=== PATIENT | male | born 1955 | race Caucasian/White ===

== ENCOUNTER 2020-03-13 11:19 | Emergency (ER) | payer MEDICARE, MEDICAID, SELFPAY ==
--- NOTE | 2020-03-13 | CT_ITS ---
EXAMINATION: CT HEAD WITHOUT CONTRAST CLINICAL INFORMATION: Headache. History of occipital hemorrhage. COMPARISON: CT head from 03/06/2020. TECHNIQUE: Contiguous axial imaging was performed from the skull base to vertex without intravenous administration of contrast. This CT examination was performed using dose optimization techniques as appropriate, variously including the following: *Automated exposure control. *Adjustment of mA and/or kV according to patient size (this includes techniques or standardized protocols for targeted exams where dose is matched to indication/reason for exam; i.e. extremities or head). *Use of iterative reconstruction technique. DLP: 672 mGy-cm FINDINGS: Redemonstrated small region (0.7 cm) of hyperattenuation within the right occipital lobe suspicious for a trace amount of hemorrhagic products (image 39/95). These hemorrhagic products appear to have slightly faded compared to exam from 03/07/2020. Minimal surrounding white matter hypoattenuation. No evidence of additional acute intracranial hemorrhagic products. No evidence of edematous territorial infarction. A few foci of hypoattenuation in the periventricular and deep white matter are consistent with mild microangiopathy. Small lacunar infarct of the right caudate head. Otherwise the maciel-white matter matter differentiation is preserved. The ventricles are normal in size and configuration. No evidence for obstructive hydrocephalus. No abnormal mass effect or midline shift. No extra-axial fluid collections. No hyperdense vessel sign. No acute soft tissue or osseous abnormalities. Mild mucosal thickening of the visualized paranasal sinuses. Small right-sided mastoid effusion. The left-sided mastoid air cells are clear. IMPRESSION: 1. Redemonstrated small region of right occipital lobe parenchymal hemorrhage. 2. No evidence of new intraparenchymal hemorrhage. 3. No evidence of acute edematous territorial infarction. Mild underlying microangiopathy.
[2020-03-13 11:38] VITALS: BP 168/96; PULSE 73; RESP 18; TEMP 36.6; O2SAT 95; BMI 29.0
--- NOTE | 2020-03-13 12:01 | ED_ITS ---
HPI - Headache General Chief Complaint: Headache Stated Complaint: brain bleed Time Seen by Provider: 03/13/20 11:48 Source: patient Mode of arrival: ambulatory Limitations: no limitations History of Present Illness HPI Narrative: patient with history of essential tremors was seen here on 03/[address] scan which showed slight 4 mm hemorrhagic area in cerebellum. Patient denies any headache at that time for last 3 days patient noticed headache which is diffuse MD elicited complaint: headache Onset description: gradually Location: frontal Quality & Timing: dull Exacerbating factors: none Relieving factors: nothing Context: occurred at rest Associated symptoms: none Related Data Previous Rx's Medication Instructions Recorded gncawnkhtv-bxbdlrladymeq-ppkj 1 cap PO Q6H PRN #14 cap 03/13/20 [Fioricet] Allergies Allergy/AdvReac Type Severity Reaction Status Date / Time bee pollen [BEE STINGS] Allergy Severe ANAPHYLAXIS Verified 03/13/20 12:02 indomethacin [Indocin] Allergy Unknown anaphylaxis Verified 03/13/20 12:02 tramadol [Ultram] Allergy Unknown anaphylaxis Verified 03/13/20 12:02 From INDOCIN Allergy Severe ANAPHYLAXIS Uncoded 02/24/20 17:11 From ULTRAM Allergy Severe ANAPHYLAXIS Uncoded 02/24/20 17:11 bee stings Allergy Unknown Unknown Uncoded 03/13/20 12:02 Review of Systems Review of Systems: REVIEW OF SYSTEMS: Pertinent positives and negatives are stated above in the history. GEN: no fevers, chills, fatigue HEENT: no nasal congestion, sore throat, ear pain NEURO: no headache, dizziness, focal weakness PULM: no cough, shortness of breath CV: no chest pain, palpitations, LE edema ABD: no abdominal pain, nausea, vomiting, diarrhea : no dysuria, urgency, frequency SKIN: no rash ROS otherwise negative x 10 PMFSH Past Medical History Medical History Brain bleed CAD (coronary artery disease) Cholecystectomy planned Hip replacement planned HTN (hypertension) Myocardial infarction Pacemaker Tremor Surgical History History of appendectomy Knee joint replacement by other means Stented coronary artery Social History Social History Alcohol intake: former Smoking Status: Current every day smoker Use of substances other than those prescribed or required for medical reasons: No Advance Directives: No Advance Directives Information Provided: No Physical Exam Vital Signs and I&O and Narrative: Vital Signs and I&O: Vital Signs Temp 98 F 03/13/20 11:38 Pulse 63 03/13/20 14:24 Resp 16 03/13/20 14:24 BP 153/84 H 03/13/20 14:24 Pulse Ox 97 03/13/20 14:24 Intake & Output 03/12/20 03/13/20 03/13/20 18:59 06:59 18:59 Weight 94.347 kg Body Mass Index 29.0 VITAL SIGNS: Reviewed. GENERAL: Well developed, well nourished, in no acute distress. HEAD: Normocephalic/atraumatic, Posterior oropharynx was without edema, erythema or exudate. EYES: PERRLA, Pupils <>, EOMI intact without pain, no nystagmus/pallor/icterus noted EARS: Ext canals without abnormality, TMs non-bulging and non-erythematous NOSE: Nares patent bilateral OROPHARYNX: no oral lesions noted, posterior pharynx clear and non-erythematous without noted tonsillar enlargement/erythema/exudates NECK: Supple, no adenopathy LUNGS: Normal breath sounds. No adventitious sounds or accessory muscle use. SpO2<> CARDIOVASCULAR: Regular rate and rhythm without noted murmurs, no JVD or lower extremity edema. ABDOMEN: Soft, non-tender, non-distended with bowel sounds. No rigidity. No g uarding. No palpable masses or hernias noted MUSCULOSKELETAL: No tenderness, deformities, or effusions noted on gross inspection. EXTREMITIES: No cyanosis, clubbing or edema. SKIN: Inspection of the skin reveals no rashes, ulcerations, jaundice, pallor, or petechiae NEUROLOGIC: Alert and oriented x 3. Strength and sensation to light touch were grossly intact x 4.Essential tremors present no focal weakness Course Course Course Narrative: patient's CT scan without any significant changes feeling much better now no focal neural deficit will discharge patient home for nonspecific headache MDM - Headache Lab Data Result diagrams: 03/13/20 12:05 03/13/20 12:05 Labs: Lab Results 03/13/20 03/13/20 03/13/20 Range/Units 12:05 12:05 12:05 WBC 9.5 (4.8-10.8) X10*3/uL RBC 4.64 (4.60-5.80) X10*6/uL Hgb 14.5 (14.0-18.0) g/dl Hct 42.3 (42-52) % MCV 91.2 (80-98) fL MCH 31.3 (27.0-33.0) pg MCHC 34.3 (31.0-36.0) g/dl RDW 12.1 (11.0-16.0) % Plt Count 320 (160-400) X10*3/uL MPV 8.3 L (9.4-12.4) fL Immature Gran % (Auto) 0.4 (0.0-0.4) % Neut % (Auto) 68.5 (45-73) % Lymph % (Auto) 19.3 L (20-40) % [place] % (Auto) 7.8 (2-11) % Eos % (Auto) 3.2 (0-4) % Baso % (Auto) 0.8 (0-2) % Neut # (Auto) 6.5 (2.0-8.3) X10*3/uL Lymph # (Auto) 1.8 (1.2-4.9) X10*3/uL [place] # (Auto) 0.7 (0.1-1.2) X10*3/uL Eos # (Auto) 0.3 (0.0-0.4) X10*3/uL Baso # (Auto) 0.1 (0.0-0.2) X10*3/uL Abs Immat Gran (auto) 0.04 H (0.00-0.03) X10*3/uL Absolute Nucleated RBC 0.000 (0.0-0.012) X10*3/uL Nucleated RBC % (auto) 0.0 (0.0-0.2) /100WBC PT 10.6 L (10.8-13.0) SEC INR 0.9 (0.9-1.1) APTT 40.2 H (24.1-38.0) SEC Sodium 138 (135-145) mmol/L Potassium 4.1 (3.3-5.1) mmol/l Chloride 104 (96-108) mmol/L Carbon Dioxide 27 (22-29) mmol/L Anion Gap 11 L (12-20) BUN 16 (9-16) mg/dL Creatinine 0.76 (0.5-1.4) mg/dL Estim Creat Clear Calc 112.1 Estimated GFR > 60 Random Glucose 119 H (60-115) mg/dL Calcium 8.7 (8.4-10.2) mg/dL Total Bilirubin 0.3 (0.0-1.0) mg/dL AST 14 (5-37) U/L ALT 12 (0-40) U/L Alkaline Phosphatase 90 (39-117) U/L Total Protein 6.7 (6.5-8.0) g/dL Albumin 4.2 (3.5-5.0) g/dL Discharge Plan Discharge Clinical Impression: Headache Patient Disposition: Home, Self-Care Instructions: Acute Headache (ED) Additional Instructions: take medication as prescribed and follow-up with primary care doctor and neurologist Prescriptions: New djpyxlnrwx-bohwtsofbjfvo-uqej [Fioricet] 50-300-40 mg capsule 1 cap PO Q6H PRN (Reason: pain) Qty: 14 RF: 0 Referrals: Nichelle Song MD [Physician] - 2 days ( headache, )
[2020-03-13 12:10] LABS: MANUAL DIFF FLAG NO
[2020-03-13 12:13] LABS: Basophils Absolute Auto 0.1 X10*3/uL (0.0-0.2); Basophils Percent Auto 0.8 % (0-2); Eosinophils Absolute Auto 0.3 X10*3/uL (0.0-0.4); Eosinophils Percent Auto 3.2 % (0-4); Hematocrit 42.3 % (42-52); Hemoglobin 14.5 g/dl (14.0-18.0); Imm Gran Abs Auto 0.04 X10*3/uL (0.00-0.03); Imm Gran Pct Auto 0.4 % (0.0-0.4); Lymphocytes Absolute Auto 1.8 X10*3/uL (1.2-4.9); Lymphocytes Percent Auto 19.3 % (20-40); Mean Corpuscular HGB Conc 34.3 g/dl (31.0-36.0); Mean Corpuscular Hemoglobin 31.3 pg (27.0-33.0); Mean Corpuscular Volume 91.2 fL (80-98); Mean Platelet Volume 8.3 fL (9.4-12.4); Monocytes Absolute Auto 0.7 X10*3/uL (0.1-1.2); Monocytes Percent Auto 7.8 % (2-11); Neutrophils Absolute Auto 6.5 X10*3/uL (2.0-8.3); Neutrophils Percent Auto 68.5 % (45-73); Platelet Count 320 X10*3/uL (160-400); Red Blood Count 4.64 X10*6/uL (4.60-5.80); Red Cell Distribution Width 12.1 % (11.0-16.0); White Blood Count 9.5 X10*3/uL (4.8-10.8)
[2020-03-13 12:20] LABS: INTERNATIONAL NORM RATIO 0.9 (0.9-1.1); Prothrombin Time 10.6 SEC (10.8-13.0)
[2020-03-13 12:23] LABS: Partial Thromboplastin Time 40.2 SEC (24.1-38.0)
[2020-03-13 12:40] LABS: Alanine Aminotransferase 12 U/L (0-40); Albumin Level 4.2 g/dL (3.5-5.0); Alkaline Phosphatase 90 U/L (39-117); Anion Gap 11 (12-20); Aspartate Amino Transferase 14 U/L (5-37); Bilirubin Total 0.3 mg/dL (0.0-1.0); Blood Urea Nitrogen 16 mg/dL (9-16); Calcium 8.7 mg/dL (8.4-10.2); Carbon Dioxide 27 mmol/L (22-29); Chloride 104 mmol/L (96-108); Creatinine Clr Calc Pharmacy 112.1; Estimated Glomerular Filt Rate > 60; Glucose Random 119 mg/dL (60-115); Potassium 4.1 mmol/l (3.3-5.1); Sodium 138 mmol/L (135-145); Total Protein 6.7 g/dL (6.5-8.0)
[2020-03-13 12:44] VITALS: BP 185/101; PULSE 68; RESP 18; O2SAT 97
[2020-03-13] MEDS: oxyCODONE HCl Immed Release 5 MG TABLET PO (13:27)
[2020-03-13] MEDS: ondansetron HCL 4 MG/2 ML VIAL IVPUSH (14:22)
[2020-03-13] MEDS: Morphine Sulfate 4 MG/ML CARTRIDGE 2 MG IVPUSH (14:23)
[2020-03-13 14:24] VITALS: BP 153/84; PULSE 63; RESP 16; O2SAT 97
== END 2020-03-13 16:08 | disposition home or self-care (01) ==
PROVIDERS: Emergency Provider Internal Medicine; PCP Internal Medicine Geriatric Medicine
DX: R51.9 Headache, unspecified (principal); I25.10 Atherosclerotic heart disease of native coronary artery without angina pectoris; I10 Essential (primary) hypertension; Z79.899 Other long term (current) drug therapy; F17.200 Nicotine dependence, unspecified, uncomplicated; Z71.6 Tobacco abuse counseling
CPT/HCPCS: 36415; 70450; 80053; 85025; 85610; 85730; 96374; 96375; 99284; J2270; J2405

== ENCOUNTER 2020-03-29 07:54 | Outpatient (REF) | payer MEDICARE, MEDICAID, SELFPAY ==
--- NOTE | 2020-03-29 08:00 | CT_ITS ---
EXAMINATION: CT HEAD WITHOUT CONTRAST CLINICAL INFORMATION: Essential trauma. COMPARISON: CT brain 03/06/2020. TECHNIQUE: Contiguous axial imaging was performed from the skull base to vertex without intravenous administration of contrast. This CT examination was performed using dose optimization techniques as appropriate, variously including the following: *Automated exposure control *Adjustment of mA and/or kV according to patient size (this includes techniques or standardized protocols for targeted exams where dose is matched to indication/reason for exam; i.e. extremities or head) *Use of iterative reconstruction technique DLP: 806 mGy-cm. FINDINGS: There is no evidence of acute intracranial hemorrhage or territorial infarction. Focus of increased attenuation right occipital lobe at the alfonso-white matter junction, axial image 19/2 is stable, question old hemorrhage versus calcification. No additional areas of hyperdensity seen. No abnormal mass effect or midline shift is seen. Alfonso to white matter differentiation is well preserved. No extra-axial fluid collections are identified. The ventricles are normal in size. There is no abnormal attenuation within the brain parenchyma. The osseous structures and soft tissues are normal. The mastoid air cells and visualized portions of the paranasal sinuses are well aerated. IMPRESSION: Stable focal hypodensity right occipital lobe compared to 03/13/2020. This is most likely calcification as it was present on 03/06/2020. Hemorrhage should have resolved by now. Recommend MRI correlation to rule out underlying lesion. No new acute intracranial process.
== END 2020-03-29 07:55 | disposition home or self-care (01) ==
LOC: HO.CT 07:54
PROVIDERS: PCP Internal Medicine Geriatric Medicine; Visit Provider Internal Medicine Geriatric Medicine
DX: G25.0 Essential tremor (principal); R93.0 Abnormal findings on diagnostic imaging of skull and head, not elsewhere classified
CPT/HCPCS: 70450

== ENCOUNTER 2020-04-25 08:46 | Emergency (ER) | payer MEDICARE, MEDICAID, SELFPAY ==
[2020-04-25 08:56] VITALS: BP 135/90; PULSE 87; RESP 15; TEMP 36.9; O2SAT 94; BMI 28.7
[2020-04-25 09:01] VITALS: RESP 18
--- NOTE | 2020-04-25 09:08 | ED_ITS ---
HPI - Chest Pain General Chief Complaint: Chest Pain Stated Complaint: DIZZINESS, HEADACHE Time Seen by Provider: 04/25/20 09:08 Source: patient Mode of arrival: ambulatory Limitations: no limitations History of Present Illness HPI narrative: Patient with a recent brain bleed in February, patient with continual headaches and was rescanned in the ED. Patient with increased headache with nausea and vomiting. Patient developed chest pain after vomiting. Last CT on 03/29 showed no hemorrhage MD complaint: chest pain Pertinent past history: coronary artery disease Onset: other (during vomiting) Pain location: substernal Pain radiation: none Severity: mild Risk Factors Coronary artery disease risk factors: smoking history, hyperlipidemia and family history of CAD before age 50 Related Data Previous Rx's Medication Instructions Recorded dmiwqeyjmx-udahtmerzrtez-vfil 1 cap PO Q6H PRN #14 cap 03/13/20 [Fioricet] ondansetron HCl [Zofran] 4 mg PO Q8H PRN #10 tab 04/25/20 Allergies Allergy/AdvReac Type Severity Reaction Status Date / Time bee pollen [BEE STINGS] Allergy Severe ANAPHYLAXIS Verified 03/13/20 12:02 indomethacin [Indocin] Allergy Unknown anaphylaxis Verified 03/13/20 12:02 tramadol [Ultram] Allergy Unknown anaphylaxis Verified 03/13/20 12:02 From INDOCIN Allergy Severe ANAPHYLAXIS Uncoded 02/24/20 17:11 From ULTRAM Allergy Severe ANAPHYLAXIS Uncoded 02/24/20 17:11 bee stings Allergy Unknown Unknown Uncoded 03/13/20 12:02 Review of Systems Constitutional: Constitutional: Reports no additional constitutional complaints Eyes: Eyes: Reports no additional eye complaints ENT: Denies dizziness Cardiovascular: Cardiovascular: Reports no additional cardiovascular complaints Respiratory: Respiratory: Reports as per HPI Gastrointestinal: Gastrointestinal: Reports no additional gastrointestinal complaints Musculoskeletal: Musculoskeletal: Reports no additional musculoskeletal complaints Integumentary/Breasts: Skin/Breast: Denies rash Neurologic: Reports system reviewed and no additional complaints, except as documented, Denies dizziness and Denies Sensory deficit (Neuro) Psychiatric: Psychiatric: Denies anxiety PMFSH Past Medical History Medical History Brain bleed CAD (coronary artery disease) Cholecystectomy planned Hip replacement planned HTN (hypertension) Myocardial infarction Pacemaker Tremor Surgical History History of appendectomy Knee joint replacement by other means Stented coronary artery Social History Social History Alcohol intake: unknown Smoking Status: Current some day smoker Use of substances other than those prescribed or required for medical reasons: No Advance Directives: No Advance Directives Information Provided: Yes Physical Exam Vital Signs: Vital Signs: Last Vital Signs Temp 98.5 F 04/25/20 08:56 Pulse 87 04/25/20 08:56 Resp 18 04/25/20 09:01 BP 135/90 H 04/25/20 08:56 Pulse Ox 94 04/25/20 08:56 Body Mass Index 28.7 Const: Other: tremulous and anxious Nutritional Appearance: average body habitus Orientation/consciousness: oriented to person and patient oriented x3 Limitations: no limitations HENMT: Head: Yes normal to inspection Ears: external ears normal General nose exam: Normal external nose present Mouth: Normal oral and palatal mucosa present and oropharynx normal Throat: Yes posterior oropharynx normal Eyes: General: appearance normal, both eyes and all related structures Neck: Other: supple Neck: Yes normal visual inspection Chest: Chest palpation & inspection: normal inspection of the chest Resp: Auscultation: clear to auscultation bilaterally Cardio: Jugular venous distension: no JVD Rate: regular rate Rhythm: regular rhythm Heart sounds: S1 normal heart sound present and S2 normal heart sound present GI: Inspection: Yes normal to inspection Palpation (GI): Soft to palpation, nontender and No hepatosplenomegaly present Auscultation: normal bowel sounds : General: Yes no CVA tenderness Back/Spine/Pelvis: Back: no CVA tenderness Skin: General skin exam: no rashes or lesions noted Neuro: General: oriented to person and patient oriented x3 Cranial nerves: Yes CN's II-XII intact bilaterally Motor exam (neuro): 5/5 motor strength present throughout Sensory Exam: No Sensory deficit (Neuro) Extrem: General: Yes normal to inspection Psych: Appearance: grossly normal Course Course Course Narrative: patient resting more comfortably will have patient follow up with pmd MDM - Chest Pain MDM Narrative Medical decision making narrative: patient with chronic headache, chest pain secondary to vomiting will dc on zofran Differential Diagnosis Differential diagnosis: Likely atypical chest pain Differential diagnosis: chest pain likely secondary to vomiting Lab Data Result diagrams: 04/25/20 09:17 04/25/20 09:17 Labs: Lab Results 04/25/20 04/25/20 04/25/20 Range/Units 09:17 09:17 09:17 WBC 15.4 H (4.8-10.8) X10*3/uL RBC 5.19 (4.60-5.80) X10*6/uL Hgb 15.9 (14.0-18.0) g/dl Hct 46.7 (42-52) % MCV 90.0 (80-98) fL MCH 30.6 (27.0-33.0) pg MCHC 34.0 (31.0-36.0) g/dl RDW 12.3 (11.0-16.0) % Plt Count 356 (160-400) X10*3/uL MPV 8.4 L (9.4-12.4) fL Immature Gran % (Auto) 0.4 (0.0-0.4) % Neut % (Auto) 77.7 H (45-73) % Lymph % (Auto) 13.0 L (20-40) % [place] % (Auto) 7.9 (2-11) % Eos % (Auto) 0.7 (0-4) % Baso % (Auto) 0.3 (0-2) % Lymph # (Auto) 2.0 (1.2-4.9) X10*3/uL [place] # (Auto) 1.2 (0.1-1.2) X10*3/uL Eos # (Auto) 0.1 (0.0-0.4) X10*3/uL Baso # (Auto) 0.1 (0.0-0.2) X10*3/uL Abs Immat Gran (auto) 0.06 H (0.00-0.03) X10*3/uL Absolute Neuts (auto) 12.0 H (2.0-8.3) X10*3/uL Absolute Nucleated RBC 0.000 (0.0-0.012) X10*3/uL Nucleated RBC % (auto) 0.0 (0.0-0.2) /100WBC Sodium 137 (135-145) mmol/L Potassium 4.0 (3.3-5.1) mmol/l Chloride 101 (96-108) mmol/L Carbon Dioxide 23 (22-29) mmol/L Anion Gap 17 (12-20) BUN 20 H (9-16) mg/dL Creatinine 0.81 (0.5-1.4) mg/dL Estim Creat Clear Calc 103.3 Estimated GFR > 60 Random Glucose 128 H (60-115) mg/dL Calcium 8.7 (8.4-10.2) mg/dL Troponin I High Sens 13.6 (<3.5-35.0) ng/L ECG Data ECG #1: Attestation: I personally reviewed and interpreted this ECG as follows: Interpretation: sinus with old inferior wall VA, no acute st or twave changes Discharge Plan Discharge Clinical Impression: Atypical chest pain Headache Qualifiers: Headache type: other headache syndrome Qualified Code(s): G44.89 - Other h eadache syndrome Patient Disposition: Home, Self-Care Instructions: Chest Pain (ED), Acute Headache (ED) Prescriptions: New ondansetron HCl [Zofran] 4 mg tablet 4 mg PO Q8H PRN (Reason: nausea and vomiting) Qty: 10 RF: 0 No Action yjnohkzqeu-ehugmdxhbbazr-dvfu [Fioricet] 50-300-40 mg capsule 1 cap PO Q6H PRN (Reason: pain) Qty: 14 RF: 0 Referrals: Name,MD Memo [Primary Care Provider] - 2 days
--- NOTE | 2020-04-25 09:14 | ECG_ITS ---
Test Reason : CHEST PAIN Blood Pressure : / mmHG Vent. Rate : 077 BPM Atrial Rate : 077 BPM P-R Int : 152 ms QRS Dur : 108 ms QT Int : 404 ms P-R-T Axes : 010 -27 -06 degrees QTc Int : 457 ms Normal sinus rhythm Inferior infarct (cited on or before 29-NOV-2017) Abnormal ECG When compared with ECG of 06-MAR-2020 14:31, No significant change was found Heart rate has decreased Referred By: Eleazar Goodman Electronically Signed By:LANCE ROSS MD
--- NOTE | 2020-04-25 09:14 | PC.NURSE ---
Pt states he had a brain bleed back in february this year, was admitted to hospital but left ama.
[2020-04-25] MEDS: 0.9 % Sodium Chloride 500 ML 999 ML IVCONT (09:23)
[2020-04-25 09:24] LABS: MANUAL DIFF FLAG NO
[2020-04-25] MEDS: Morphine Sulfate 4 MG/ML CARTRIDGE IVPUSH (09:24)
[2020-04-25 09:25] LABS: Basophils Absolute Auto 0.1 X10*3/uL (0.0-0.2); Basophils Percent Auto 0.3 % (0-2); Eosinophils Absolute Auto 0.1 X10*3/uL (0.0-0.4); Eosinophils Percent Auto 0.7 % (0-4); Hematocrit 46.7 % (42-52); Hemoglobin 15.9 g/dl (14.0-18.0); Imm Gran Abs Auto 0.06 X10*3/uL (0.00-0.03); Imm Gran Pct Auto 0.4 % (0.0-0.4); Mean Corpuscular Hemoglobin 30.6 pg (27.0-33.0); Mean Platelet Volume 8.4 fL (9.4-12.4); Monocytes Absolute Auto 1.2 X10*3/uL (0.1-1.2); Monocytes Percent Auto 7.9 % (2-11); Neutrophils Percent Auto 77.7 % (45-73); Platelet Count 356 X10*3/uL (160-400); Red Blood Count 5.19 X10*6/uL (4.60-5.80); Red Cell Distribution Width 12.3 % (11.0-16.0); White Blood Count 15.4 X10*3/uL (4.8-10.8)
[2020-04-25 09:50] LABS: Anion Gap 17 (12-20); Blood Urea Nitrogen 20 mg/dL (9-16); Calcium 8.7 mg/dL (8.4-10.2); Carbon Dioxide 23 mmol/L (22-29); Chloride 101 mmol/L (96-108); Creatinine Clr Calc Pharmacy 103.3; Estimated Glomerular Filt Rate > 60; Glucose Random 128 mg/dL (60-115); Sodium 137 mmol/L (135-145)
[2020-04-25 09:58] LABS: Troponin-I High Sensitivity 13.6 ng/L (<3.5-35.0)
[2020-04-25] MEDS: oxyCODONE HCl Immed Release 5 MG TABLET PO (10:37)
[2020-04-25 11:27] VITALS: BP 95/61; PULSE 60; RESP 15; TEMP 36.4; O2SAT 95
== END 2020-04-25 12:03 | disposition home or self-care (01) ==
PROVIDERS: Emergency Provider Emergency Medicine; PCP Internal Medicine Geriatric Medicine
DX: R07.9 Chest pain, unspecified (principal); G44.89 Other headache syndrome; R42 Dizziness and giddiness; I25.10 Atherosclerotic heart disease of native coronary artery without angina pectoris; I10 Essential (primary) hypertension; Z79.899 Other long term (current) drug therapy; F17.200 Nicotine dependence, unspecified, uncomplicated; Z71.6 Tobacco abuse counseling
CPT/HCPCS: 36415; 80048; 84484; 85025; 93005; 96374; 96375; 99284; J2270

== ENCOUNTER 2020-04-25 17:27 | Inpatient (IN) | payer MEDICARE, MEDICAID, SELFPAY ==
[2020-04-25] VITALS (12 sets, daily range): BP systolic 88–130; BP diastolic 61–77; PULSE 60–76; RESP 16–20; TEMP 36.6–36.7; O2SAT 95–99; BMI 28.5
[2020-04-25] MEDS: 0.9 % Sodium Chloride 1,000 ML 999 ML IVCONT ×2 (19:31→22:00)
[2020-04-25 19:56] LABS: Basophils Absolute Auto 0.1 X10*3/uL (0.0-0.2); Basophils Percent Auto 0.6 % (0-2); Eosinophils Absolute Auto 0.3 X10*3/uL (0.0-0.4); Eosinophils Percent Auto 2.3 % (0-4); Imm Gran Abs Auto 0.13 X10*3/uL (0.00-0.03); Imm Gran Pct Auto 0.9 % (0.0-0.4); Lymphocytes Absolute Auto 3.4 X10*3/uL (1.2-4.9); MANUAL DIFF FLAG NO; Mean Corpuscular HGB Conc 34.1 g/dl (31.0-36.0); Mean Corpuscular Hemoglobin 31.3 pg (27.0-33.0); Mean Corpuscular Volume 91.7 fL (80-98); Mean Platelet Volume 8.4 fL (9.4-12.4); Monocytes Absolute Auto 1.2 X10*3/uL (0.1-1.2); Monocytes Percent Auto 8.5 % (2-11); Neutrophils Percent Auto 63.7 % (45-73); Platelet Count 305 X10*3/uL (160-400); Red Blood Count 4.47 X10*6/uL (4.60-5.80); Red Cell Distribution Width 12.7 % (11.0-16.0); White Blood Count 14.1 X10*3/uL (4.8-10.8)
--- NOTE | 2020-04-25 20:22 | CT_ITS ---
EXAMINATION: CT HEAD WITHOUT CONTRAST CLINICAL INFORMATION: Ongoing headache COMPARISON: Head CT 03/29/2020 TECHNIQUE: Contiguous axial imaging was performed from the skull base to vertex without intravenous administration of contrast. This CT examination was performed using dose optimization techniques as appropriate, variously including the following: *Automated exposure control *Adjustment of mA and/or kV according to patient size (this includes techniques or standardized protocols for targeted exams where dose is matched to indication/reason for exam; i.e. extremities or head) *Use of iterative reconstruction technique DLP: 712 mGy-cm FINDINGS: There is no evidence of acute intracranial hemorrhage or territorial infarction. No abnormal mass effect or midline shift is seen. Alfonso to white matter differentiation is well preserved. No extra-axial fluid collections are identified. The ventricles are normal in size. Again identified is a focus of increased attenuation within the right occipital lobe which is similar in appearance (image 14/32, series 3). The osseous structures and soft tissues are normal. The mastoid air cells and visualized portions of the paranasal sinuses are well aerated. CT/CT head/brain wo con IMPRESSION: 1. No acute intracranial pathology. 2. Stable nonspecific hyperdense focus within the right occipital lobe. MRI imaging would be required for further characterization.
[2020-04-25 20:32] LABS: Anion Gap 13 (12-20); Blood Urea Nitrogen 26 mg/dL (9-16); Calcium 7.9 mg/dL (8.4-10.2); Carbon Dioxide 24 mmol/L (22-29); Chloride 104 mmol/L (96-108); Creatinine Clr Calc Pharmacy 90.7; Estimated Glomerular Filt Rate > 60; Glucose Random 91 mg/dL (60-115); Potassium 3.6 mmol/l (3.3-5.1); Sodium 137 mmol/L (135-145)
--- NOTE | 2020-04-25 20:39 | XR_ITS ---
EXAMINATION: XR CHEST CLINICAL INFORMATION: Syncope COMPARISON: Chest x-ray 12/13/2019. CTA chest 12/13/2019 TECHNIQUE: 2 views of the chest were obtained. FINDINGS: No change position of pacemaker leads in right atrium and right ventricle. The heart size is normal. The cardiac and mediastinal contours are normal. No pulmonary vascular congestion. Linear atelectasis at left lung base. No focal consolidation. No pleural effusion or pneumothorax. XR/XR chest 2V IMPRESSION: No acute change of chest.
[2020-04-25] MEDS: Metoclopramide HCl 10 MG/2 ML VIAL IVPUSH (20:44)
[2020-04-25] MEDS: Acetaminophen 325 MG TABLET 650 MG PO (20:45)
--- NOTE | 2020-04-25 22:02 | CT_ITS ---
EXAMINATION: CTA CHEST, ABDOMEN AND PELVIS WITH CONTRAST CLINICAL INFORMATION: Reason for Exam LANDEROS, CP COMPARISON: CT chest 03/06/2020, CTA chest 12/13/2019, CT abdomen pelvis 03/14/2019 and 03/16/2019 TECHNIQUE: Multidetector volumetric imaging was performed from the thoracic inlet through the pubic symphysis following administration of 70 mL of Omnipaque 350. Sagittal and coronal reformatted images were obtained on the technologist's workstation. This CT examination was performed using dose optimization techniques as appropriate, variously including the following: *Automated exposure control *Adjustment of mA and/or kV according to patient size (this includes techniques or standardized protocols for targeted exams where dose is matched to indication/reason for exam; i.e. extremities or head) *Use of iterative reconstruction technique DLP: 772 mGy-cm VASCULAR FINDINGS: The thoracic aorta appears normal without aneurysm or dissection. Normal three-vessel branching pattern of the arch is present and the visualized great vessels are widely patent. Although not carried out for evaluation of the pulmonary arteries or pulmonary veins, no gross abnormality is seen. The abdominal aorta demonstrates mild atherosclerotic changes in its infrarenal portion. No aneurysm or dissection is seen. Aortic bifurcation is patent with normal-appearing common iliac arteries. Iliac bifurcations are patent and the external iliac arteries appear free of disease. Both internal iliac arteries are patent. 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 The SMA is widely patent. The BREN[place] is patent. There are single renal arteries present on both sides which are normal and patent NONVASCULAR FINDINGS: CHEST: Lung: Again seen are emphysematous changes and some small non worrisome lung nodules. Mediastinum: No mediastinal or hilar lymphadenopathy is seen. Pericardium/Pleura: No significant effusion. No pleural mass or thickening. Chest Wall/Axilla: A left chest wall dual-lead pacemaker is present with one lead in the right atria the other at the right ventricular apex. ABDOMEN/PELVIS: Peritoneal Space: No significant free air or free fluid identified. Liver, Gallbladder, Biliary Tree: The liver is normal in size, shape, and attenuation. At the tip of the right lobe of the liver there is a 1.4 cm calcified mass present. Another granuloma is noted in the right lobe of the liver as well (series 8 image 67) these have been seen previously. No worrisome focal hepatic lesion or biliary ductal dilatation is present. Status post cholecystectomy with clips in the gallbladder fossa. Pancreas: Unremarkable Spleen: Unremarkable Adrenal Glands: Unremarkable Kidneys and Ureters: The kidneys are normal in size, shape, and attenuation. No hydronephrosis, hydroureter, or calculi seen. No perinephric stranding. Bladder: Unremarkable Gastrointestinal Tract: Scattered colonic diverticular changes are present without diverticulitis. The small and large bowel are otherwise unremarkable. The appendix is none seen. Abdominal Wall: No significant hernia is appreciated. Tiny inguinal hernias are seen containing only fat. Lymph Nodes: No lymphadenopathy. PELVIC VISCERA: Prostate is mildly prominent in the seminal vesicles are generous in size. OSSEUS STRUCTURES: A right hip prosthesis is present. Mild degenerative changes present spine. CT/CT angio abdomen pelvis IMPRESSION: 1. No evidence of aortic dissection. No significant vascular disease seen mild celiac stenosis. 2. Incidental note made of hepatic granulomas, cholecystectomy and colonic diverticula without acute abdominal/pelvic disease
--- NOTE | 2020-04-25 22:22 | PC.NURSE ---
Pt reports improvement in nausea, continues to c/o 10/10 headache and mild chest discomfort. provider aware of pt status and vs. pt currently at ct.
[2020-04-25] MEDS: iohexoL 350 MG/ML 100 ML INFUS..BTL IV (22:35)
[2020-04-25 22:40] LABS: Glucose Urine UA NEG (NEG); Leukocyte Esterase Urine NEG (NEG); Nitrite Urine NEG (NEG); Specific Gravity - Urine 1.025 (1.005-1.025); Urine Blood NEG (NEG); Urine Ketones NEG (NEG); Urine Protein NEG (NEG-TRACE)
[2020-04-25 22:42] LABS: Appearance Urine CLEAR; Color Urine YELLOW
[2020-04-25 22:45] LABS: RBC Urine 0 /HPF (0); WBC Urine 0 /HPF (0-4)
[2020-04-25] MEDS: fentaNYL citrate/PF 100 MCG/2 ML VIAL 25 MCG IVPUSH (23:09)
--- NOTE | 2020-04-25 23:29 | ED.GENADULT ---
HPI - General Adult General Chief complaint: Syncope Stated complaint: SYNCOPAL EPISODE,CHEST TIGHTNESS Time Seen by Provider: 04/25/20 20:03 Source: patient and EMS History of Present Illness HPI narrative: 65 y.o. M with PMH of CAD, alcohol abuse presenting to the ED with c/o syncope and LANDEROS. Pt. states he was seen in the ED earlier this morning and states the provider focused on his CP and not his LANDEROS. he states he has a mild chest pain but does not feel like a heart attack. He is concerned about his headache which has been ongoing since the end of February. He notes it starts on the back of his scalp and radiates to his frontal scalp. He describes it as the worst headache of my life. He notes it has been ongoing since he had fallen. Today he was seen in the ED and sent home. He went home and was eating lunch, he then went to the fridge to get something and remembers being on the ground. He does not recall what happened. His neighbor helped him get up and he went to his doctors. He was noted to have a low blood pressure and was sent to the ED. He denies fevers, vision changes, speech changes, weakness, CP, SOB, vomiting, abd pain. Related Data Home Medications Medication Instructions Recorded Confirmed amlodipine 1 tab PO QAM 04/25/20 04/26/20 aspirin 1 tab PO QAM 04/25/20 04/26/20 bupropion HCl 1 tab PO BID 04/25/20 04/26/20 lisinopril 10 mg PO BID 04/25/20 04/26/20 metoprolol tartrate 1 tab PO BID 04/25/20 04/26/20 rosuvastatin 1 tab PO DAILY 04/25/20 04/26/20 oxycodone 10 mg PO Q6H PRN 04/26/20 04/26/20 Allergies Allergy/AdvReac Type Severity Reaction Status Date / Time bee pollen [BEE STINGS] Allergy Severe ANAPHYLAXIS Verified 03/13/20 12:02 indomethacin [Indocin] Allergy Unknown anaphylaxis Verified 03/13/20 12:02 tramadol [Ultram] Allergy Unknown anaphylaxis Verified 03/13/20 12:02 From INDOCIN Allergy Severe ANAPHYLAXIS Uncoded 02/24/20 17:11 From ULTRAM Allergy Severe ANAPHYLAXIS Uncoded 02/24/20 17:11 bee stings Allergy Unknown Unknown Uncoded 03/13/20 12:02 Review of Systems Constitutional: Constitutional: Denies fever(s), Reports headache(s) and Denies weakness Eyes: Eyes: Reports no additional eye complaints and Denies change in vision ENT: Denies dizziness and Reports headache(s) Cardiovascular: Cardiovascular: Reports chest pain and Denies dyspnea Respiratory: Respiratory: Denies dyspnea Gastrointestinal: Gastrointestinal: Denies abdominal pain, Reports nausea and Denies vomiting Musculoskeletal: Musculoskeletal: Reports no additional musculoskeletal complaints Neurologic: Denies dizziness, Reports headache(s), Denies Sensory deficit (Neuro) and Denies weakness Endocrine: Endocrine: Reports no additional endocrine complaints Hematologic/Lymphatic: Hematologic/Lymphatic: Reports easy bleeding PMFSH Past Medical History Medical History Brain bleed CAD (coronary artery disease) Cholecystectomy planned Hip replacement planned HTN (hypertension) Myocardial infarction Pacemaker Tremor Surgical History History of appendectomy Knee joint replacement by other means Stented coronary artery Social History Social History (Updated 04/26/20 @ 00:59 by TAL Solano) Household Members Other:: lives with roomate Alcohol intake: former Smoking Status: Current some day smoker Smoked in Last 30 Days: No Use of substances other than those prescribed or required for medical reasons: No Advance Directives: No Advance Directives Information Provided: Yes Physical Exam Vital Signs: Vital Signs: Last Vital Signs Temp 97.8 F 04/25/20 20:18 Pulse 76 04/25/20 23:57 Resp 16 04/25/20 23:57 BP 103/72 04/25/20 23:57 Pulse Ox 97 04/25/20 23:57 Body Mass Index 28.5 Const: General: alert Orientation/consciousness: patient oriented x3 HENMT: Head: Yes atraumatic Eyes: Pupils: Equal, round and reactive pupils present EOM: EOMs intact bilaterally Neck: Neck: Yes no meningeal signs, Yes trachea midline and Yes supple Resp: Auscultation: clear to auscultation bilaterally Cardio: Rhythm: regular rhythm GI: Inspection: No distended Palpation (GI): Soft to palpation and nontender Skin: Rashes: no rashes Neuro: General: patient oriented x3, no meningeal signs, no focal motor deficits and CN's II-XI intact bilaterally Cranial nerves: Yes Equal, round and reactive pupils present Motor exam (neuro): 5/5 motor strength present throughout and Tremors during motor activity present Sensory Exam: No Sensory deficit (Neuro) Extrem: General: Yes normal to inspection Medical Decision Making MDM Narrative Medical decision making narrative: 65 y.o. M presenting to the ED with concerns for syncope and hypotension. Pt. endorsing a LANDEROS. He was diagnosed with a parencyhmal hemorrhage at the end of February and has been having ongoing headaches. pt. states he was admitted and neurology evaluated him but he left AMA because of his anxiety. Basic labs were ordered. EKG and troponin to evaluate for signs of ischemia. Concern is for hypotension, he receieved 1L of fluids. Discrepancy between BP in upper extremities. Given his syncope and hypotension with fluctuating BP pt. will be sent for a CTA of his chest and abdomen to r/o a dissection. A Head CT will also be performed given his ongoing headache. No focal weakness to suggest a CVA. No menningeal signs. No signs of infection pt. is afebrile. Abdomen is soft, nontender, no peritoneal signs, no AAA on CT in 2019. GI bleed less likely given no report of hematemesis or black stool. Pt. requesting analgesia for his LANDEROS, will give IV fluids, reglan and re-eval. -Labs unrevealing. EKG is not ischemic. BP improved with IV fluids. Will give IV fentanyl for his pain. Imaging negative, head CT unchanged. Will plan to admit for syncope monitoring and further management of his LANDEROS. neurology not emergently consulted given nonfocal neurological exam however pt. would benefit from a neuro consult once admitted. Lab Data Result diagrams: 04/25/20 19:50 04/25/20 19:50 Labs: Lab Results 04/25/20 04/25/20 04/25/20 Range/Units 19:50 19:50 19:50 WBC 14.1 H (4.8-10.8) X10*3/uL RBC 4.47 L (4.60-5.80) X10*6/uL Hgb 14.0 (14.0-18.0) g/dl Hct 41.0 L (42-52) % MCV 91.7 (80-98) fL MCH 31.3 (27.0-33.0) pg MCHC 34.1 (31.0-36.0) g/dl RDW 12.7 (11.0-16.0) % Plt Count 305 (160-400) X10*3/uL MPV 8.4 L (9.4-12.4) fL Immature Gran % (Auto) 0.9 H (0.0-0.4) % Neut % (Auto) 63.7 (45-73) % Lymph % (Auto) 24.0 (20-40) % [place] % (Auto) 8.5 (2-11) % Eos % (Auto) 2.3 (0-4) % Baso % (Auto) 0.6 (0-2) % Lymph # (Auto) 3.4 (1.2-4.9) X10*3/uL [place] # (Auto) 1.2 (0.1-1.2) X10*3/uL Eos # (Auto) 0.3 (0.0-0.4) X10*3/uL Baso # (Auto) 0.1 (0.0-0.2) X10*3/uL Abs Immat Gran (auto) 0.13 H (0.00-0.03) X10*3/uL Absolute Neuts (auto) 9.0 H (2.0-8.3) X10*3/uL Absolute Nucleated RBC 0.000 (0.0-0.012) X10*3/uL Nucleated RBC % (auto) 0.0 (0.0-0.2) /100WBC Hold Blue Top SEE NOTE Sodium 137 (135-145) mmol/L Potassium 3.6 (3.3-5.1) mmol/l Chloride 104 (96-108) mmol/L Carbon Dioxide 24 (22-29) mmol/L Anion Gap 13 (12-20) BUN 26 H (9-16) mg/dL Creatinine 0.92 (0.5-1.4) mg/dL Estim Creat Clear Calc 90.7 Estimated GFR > 60 Random Glucose 91 (60-115) mg/dL Calcium 7.9 L D (8.4-10.2) mg/dL Troponin I High Sens (<3.5-35.0) ng/L Urine Color Urine Appearance Urine pH (5.0-8.0) Ur Specific [place] (1.005-1.025) Urine Protein (NEG-TRACE) MG/DL Urine Glucose (UA) (NEG) MG/DL Urine Ketones (NEG) MG/DL Urine Blood (NEG) Urine Nitrite (NEG) Ur Leukocyte Esterase (NEG) Urine RBC (0) /HPF Urine WBC (0-4) /HPF Ur Squamous Epith Cells /LPF Urine Bacteria /LPF COVID-19 (DOMENICO) (Negative) COVID-19 Clin Com 04/25/20 04/25/20 04/26/20 Range/Units 19:50 22:34 00:16 WBC (4.8-10.8) X10*3/uL RBC (4.60-5.80) X10*6/uL Hgb (14.0-18.0) g/dl Hct (42-52) % MCV (80-98) fL MCH (27.0-33.0) pg MCHC (31.0-36.0) g/dl RDW (11.0-16.0) % Plt Count (160-400) X10*3/uL MPV (9.4-12.4) fL Immature Gran % (Auto) (0.0-0.4) % Neut % (Auto) (45-73) % Lymph % (Auto) (20-40) % [place] % (Auto) (2-11) % Eos % (Auto) (0-4) % Baso % (Auto) (0-2) % Lymph # (Auto) (1.2-4.9) X10*3/uL [place] # (Auto) (0.1-1.2) X10*3/uL Eos # (Auto) (0.0-0.4) X10*3/uL Baso # (Auto) (0.0-0.2) X10*3/uL Abs Immat Gran (auto) (0.00-0.03) X10*3/uL Absolute Neuts (auto) (2.0-8.3) X10*3/uL Absolute Nucleated RBC (0.0-0.012) X10*3/uL Nucleated RBC % (auto) (0.0-0.2) /100WBC Hold Blue Top Sodium (135-145) mmol/L Potassium (3.3-5.1) mmol/l Chloride (96-108) mmol/L Carbon Dioxide (22-29) mmol/L Anion Gap (12-20) BUN (9-16) mg/dL Creatinine (0.5-1.4) mg/dL Estim Creat Clear Calc Estimated GFR Random Glucose (60-115) mg/dL Calcium (8.4-10.2) mg/dL Troponin I High Sens 11.0 (<3.5-35.0) ng/L Urine Color YELLOW Urine Appearance CLEAR Urine pH 6.0 (5.0-8.0) Ur Specific [place] 1.025 (1.005-1.025) Urine Protein NEG (NEG-TRACE) MG/DL Urine Glucose (UA) NEG (NEG) MG/DL Urine Ketones NEG (NEG) MG/DL Urine Blood NEG (NEG) Urine Nitrite NEG (NEG) Ur Leukocyte Esterase NEG (NEG) Urine RBC 0 (0) /HPF Urine WBC 0 (0-4) /HPF Ur Squamous Epith Cells NONE /LPF Urine Bacteria NONE /LPF COVID-19 (DOMENICO) Negative (Negative) COVID-19 Clin Com See Note ECG Data Attestation: I personally reviewed and interpreted this ECG as follows: Interpretation: rate 63 T wave inversion III no STEMI Discharge Plan Discharge Clinical Impression: Headache, Syncope, Hypotension Patient Disposition: Conversion Disposition
[2020-04-26] VITALS (12 sets, daily range): BP systolic 132–211; BP diastolic 69–127; PULSE 60–65; RESP 16–19; TEMP 36.1–36.8; O2SAT 96–98
--- NOTE | 2020-04-26 | EEG_ITS ---
This is a 16-channel EEG with an EKG lead. The patient is reported awake during the tracing. Background EEG rhythm is 8 to 10 hertz, 5 to 30 microvolt posteriorly, lower amplitude faster anteriorly. Intermittently, there were few brief episodes of left temporal sharp waves. Photic stimulation does not produce any significant abnormality. Hyperventilation was not performed. IMPRESSION: Abnormal EEG suggestive of left temporal irritability. MD KAE Meyer/RIVKA / [id number]
--- NOTE | 2020-04-26 | ECG_ITS ---
Test Reason : SYNCOPE Blood Pressure : / mmHG Vent. Rate : 063 BPM Atrial Rate : 063 BPM P-R Int : 168 ms QRS Dur : 110 ms QT Int : 478 ms P-R-T Axes : 033 -19 -10 degrees QTc Int : 489 ms Normal sinus rhythm Inferior infarct (cited on or before 29-NOV-2017) Abnormal ECG When compared with ECG of 25-APR-2020 09:02, No significant change was found Referred By: Olga Lim Electronically Signed By:LANCE ROSS MD
--- NOTE | 2020-04-26 00:06 | PC.NURSE ---
pt requested and used urinal. pt also able to tolerate a meal. hospitalist at [facility].
--- NOTE | 2020-04-26 00:23 | P.HPHOSP_ITS ---
History of Present Illness Date of Service: 04/26/20 Chief Complaint: syncope 65 y/o male with a PMHX of HTN, HLP, CAD s/p stenting and PPM who presented from home due to syncope. Per history provided by the patient, today in the afternoon while at home, felt a severe headache extending from the back of his head to the front, 10/10 in intensity, sharp, associated with dizziness causing him to loss consciousness. Patient reports that upon waking up went to his PCP and was found to have a systolic BP of 80-90 fo what was sent to the ED for further evaluation. On presentation patient was hypotensive BP of 88/60 mmHg which later improved to 103/72 mHg without intervention. WBC of 14 without any evidence of infection, troponin neg x 2, CT head negative for any acute intracranial pathology, hyperintense lesion in the right occipital lobe is noted which was present on prior imaging. CTA chest and abdom done per ED which showed incidental liver granuloma but otherwise unremarkable. EKG NSR. Decision for admission given per ED. Patient seen and examined at the bedside, laying down in bed in no acute dist ress. ROS as above otherwise negative. Physical exam positive for resting tremor, negative for neck stiffness, rest of the exam unremarkable. Patient was admitted recently due to worening tremor/weakness, seen by neuro adn was recommended CT with/without contrast for evaluation of lesion of the brain but patient signed AMA before work up was done back then. PMHX: HTN, CAD with most recent stent placed in October 2019 , pacemaker, HLD, gout, GERD Past surgical history: Knee replacement, shoulder surgery, appendectomy, cholecystectomy, hernia repair, back surgery Family history: Significant for brother and sister as well as father who had heavy chain disease, mother had CT Social history: Comes from home, lives alone, ambulates independently, currently smokes 4-5 cigarettes a day, denies alcohol or illicit drugs Review of Systems Constitutional: Constitutional: Reports headache(s) and Reports other (headache) ENT: Reports dizziness and Reports headache(s) Cardiovascular: Cardiovascular: Reports syncope Neurologic: Reports dizziness, Reports syncope, Reports headache(s) and Reports tremor(s) [facility] Medical History Brain bleed CAD (coronary artery disease) Cholecystectomy planned Hip replacement planned HTN (hypertension) Myocardial infarction Pacemaker Tremor Functional capacity: independent ambulation Family history: reviewed and not pertinent Surgical History History of appendectomy Knee joint replacement by other means Stented coronary artery Social History Alcohol intake: former Smoking Status: Current some day smoker Smoked in Last 30 Days: No Use of substances other than those prescribed or required for medical reasons: No Advance Directives: No Advance Directives Information Provided: Yes Meds Allergies Allergy/AdvReac Type Severity Reaction Status Date / Time bee pollen [BEE STINGS] Allergy Severe ANAPHYLAXIS Verified 03/13/20 12:02 indomethacin [Indocin] Allergy Unknown anaphylaxis Verified 03/13/20 12:02 tramadol [Ultram] Allergy Unknown anaphylaxis Verified 03/13/20 12:02 From INDOCIN Allergy Severe ANAPHYLAXIS Uncoded 02/24/20 17:11 From ULTRAM Allergy Severe ANAPHYLAXIS Uncoded 02/24/20 17:11 bee stings Allergy Unknown Unknown Uncoded 03/13/20 12:02 Home Medications Medication Instructions Recorded Confirmed Type amlodipine 1 tab PO QAM 04/25/20 04/26/20 History aspirin 1 tab PO QAM 04/25/20 04/26/20 History bupropion HCl 1 tab PO BID 04/25/20 04/26/20 History lisinopril 10 mg PO BID 04/25/20 04/26/20 History metoprolol tartrate 1 tab PO BID 04/25/20 04/26/20 History rosuvastatin 1 tab PO DAILY 04/25/20 04/26/20 History oxycodone 10 mg PO Q6H PRN 04/26/20 04/26/20 History Physical Exam Vital Signs and Narrative: Vital Signs: Last Vital Signs Temp 97.8 F 04/25/20 20:18 Pulse 76 04/25/20 23:57 Resp 16 04/25/20 23:57 BP 103/72 04/25/20 23:57 Pulse Ox 97 04/25/20 23:57 Body Mass Index 28.5 Const: General: cooperative, comfortable and no acute distress Orientation/consciousness: oriented to person, oriented to place and oriented to time HENMT: Head: Yes normal to inspection Eyes: General: appearance normal, both eyes and all related structures Neck: Yes normal visual inspection Chest: Chest palpation & inspection: normal inspection of the chest Resp: Effort & Inspection: normal respiratory effort Cardio: Jugular venous distension: no JVD Rate: regular rate Rhythm: regular rhythm Heart sounds: S1 normal heart sound present and S2 normal heart sound present GI: Inspection: Yes normal to inspection Skin: General skin exam: no rashes or lesions noted Neuro: General: oriented to person, oriented to place and oriented to time Cognition (Neuro): normal cognition Motor exam (neuro): 5/5 motor strength present throughout Sensory Exam: other (resting tremor) Results Labs CBC and Chem 7: 04/25/20 19:50 04/25/20 19:50 Labs: Laboratory Results - last 24 hr 04/25/20 04/25/20 04/25/20 19:50 19:50 19:50 MCV 91.7 MCH 31.3 MCHC 34.1 RDW 12.7 Plt Count 305 MPV 8.4 L Immature Gran % (Auto) 0.9 H Neut % (Auto) 63.7 Lymph % (Auto) 24.0 [place] % (Auto) 8.5 Eos % (Auto) 2.3 Baso % (Auto) 0.6 Lymph # (Auto) 3.4 [place] # (Auto) 1.2 Eos # (Auto) 0.3 Baso # (Auto) 0.1 Abs Immat Gran (auto) 0.13 H Absolute Neuts (auto) 9.0 H Absolute Nucleated RBC 0.000 Nucleated RBC % (auto) 0.0 Hold Blue Top SEE NOTE Anion Gap 13 Estim Creat Clear Calc 90.7 Estimated GFR > 60 Random Glucose 91 Calcium 7.9 L D Troponin I High Sens Urine Color Urine Appearance Urine pH Ur Specific [place] Urine Protein Urine Glucose (UA) Urine Ketones Urine Blood Urine Nitrite Ur Leukocyte Esterase Urine RBC Urine WBC Ur Squamous Epith Cells Urine Bacteria 04/25/20 04/25/20 19:50 22:34 MCV MCH MCHC RDW Plt Count MPV Immature Gran % (Auto) Neut % (Auto) Lymph % (Auto) [place] % (Auto) Eos % (Auto) Baso % (Auto) Lymph # (Auto) [place] # (Auto) Eos # (Auto) Baso # (Auto) Abs Immat Gran (auto) Absolute Neuts (auto) Absolute Nucleated RBC Nucleated RBC % (auto) Hold Blue Top Anion Gap Estim Creat Clear Calc Estimated GFR Random Glucose Calcium Troponin I High Sens 11.0 Urine Color YELLOW Urine Appearance CLEAR Urine pH 6.0 Ur Specific [place] 1.025 Urine Protein NEG Urine Glucose (UA) NEG Urine Ketones NEG Urine Blood NEG Urine Nitrite NEG Ur Leukocyte Esterase NEG Urine RBC 0 Urine WBC 0 Ur Squamous Epith Cells NONE Urine Bacteria NONE Imaging Radiologist's Impressions: Impressions Head CT 04/25/20 20:22 IMPRESSION: 1. No acute intracranial pathology. 2. Stable nonspecific hyperdense focus within the right occipital lobe. MRI imaging would be required for further characterization. Chest X-Ray 04/25/20 20:39 IMPRESSION: No acute change of chest. Abdomen/Pelvis CTA 04/25/20 22:02 IMPRESSION: 1. No evidence of aortic dissection. No significant vascular disease seen mild celiac stenosis. 2. Incidental note made of hepatic granulomas, cholecystectomy and colonic diverticula without acute abdominal/pelvic disease Chest CTA 04/25/20 22:02 IMPRESSION: 1. No evidence of aortic dissection. No significant vascular disease seen mild celiac stenosis. 2. Incidental note made of hepatic granulomas, cholecystectomy and colonic diverticula without acute abdominal/pelvic disease Assessment and Plan (1) Syncope: Status: Acute No evidence of underlying arrhythmia on EKG. CT head negative for any acute intracranial pathology. Hyperintense lesion on right occipital lobe which is chronic CTA head and neck to be done in the am after IV hydration, r/o underlying vascular malformation threat monitoring analyst Close monitoring / neurochecks Keep MAP >65 mmHg Neurology consult in the am (2) Headache: Status: Acute CTA head and neck in the am (3) Tremor: Status: Acute stable (4) CAD (coronary artery disease): Status: Acute Hold BP meds given initial presentation with hypotension Hold aspirin for now until CTA head and neck is done in the am (5) Psychotic disorder: Status: Acute continue with home BP meds
[2020-04-26 00:40] LABS: COVID-19 Test Negative (Negative); IDNOW Serial# 9DD0AD1C
[2020-04-26] MEDS: Acetaminophen 325 MG TABLET 650 MG PO (04:25)
[2020-04-26] MEDS: 0.9 % Sodium Chloride 500 ML 75 ML IV (04:25)
[2020-04-26] MEDS: diphenhydrAMINE HCL 50 MG/ML VIAL 25 MG IVPUSH (04:26)
--- NOTE | 2020-04-26 06:00 | CT_ITS ---
EXAMINATION: CT ANGIOGRAM NECK WITH CONTRAST CT ANGIOGRAM BRAIN WITH CONTRAST CLINICAL INFORMATION: Syncope. Rule out aneurysm. COMPARISON: Head CT 04/25/2020. Additional head CT's dating back to 03/06/2020. TECHNIQUE: Test bolus sequences followed by intravenous administration 100 mL of Omnipaque 350. Helical imaging was performed in the axial plane from the thoracic inlet to the skull vertex. Delayed postcontrast imaging of the head was also performed. The data was processed at the lead technologist in cytogenetics workstation for generation of MIP sequences. Angled MIPs and volume rendered reformatted images were also generated at an offline 3D workstation. Stenoses are assessed in accordance with NASCET criteria unless otherwise indicated. This CT examination was performed using dose optimization techniques as appropriate, variously including the following: *Automated exposure control *Adjustment of mA and/or kV according to patient size (this includes techniques or standardized protocols for targeted exams where dose is matched to indication/reason for exam; i.e. extremities or head) *Use of iterative reconstruction technique DLP: 1648 mGy-cm FINDINGS: Head CT: There is redemonstration of focal hyperdensity within the right occipital lobe seen on series 13 image which appears similar compared with multiple prior studies dating back to 03/07/2020. No new areas of hyperdensity/hemorrhage are seen. There is no enhancing lesion. The dural venous sinuses demonstrate normal opacification. The extracranial structures are within normal limits. Neck CTA: There are partially visualized pacemaker leads within the SVC. The aortic arch is patent with minimal atheromatous changes noted. The great vessel origins are patent. Atheromatous changes are seen involving the bilateral carotid bifurcations without flow-limiting stenosis. Mild atheromatous changes are present at the carotid siphons without stenosis. The bilateral vertebral arteries are widely patent with the right side being dominant. Head CTA: No proximal vessel occlusion is seen. The anterior and posterior circulations appear patent. No stenosis is seen. No definite aneurysm is seen. The dural venous sinuses demonstrate normal opacification. No abnormal vascularity is seen within the region of the right occipital hyperdensity. Non-vascular findings: No upper lung consolidation or mass is seen. Paraseptal emphysema is present. Degenerative changes are seen within the cervical spine. CT/CT angio head neck IMPRESSION: Redemonstration of right occipital lobe hyperdensity without significant change compared with 03/06/2020. Although this finding could represent a small area of parenchymal hemorrhage the lack of interval change/resolution compared with 03/06/2020 is atypical. An area of dystrophic calcification is in the differential. A cavernous malformation could also be considered. If the patient's pacemaker is MRI compatible, an MRI could be performed for further evaluation. No significant stenosis within the major head or neck arteries. No definite aneurysm identified.
[2020-04-26 06:26] LABS: MANUAL DIFF FLAG NO
[2020-04-26 06:49] LABS: Basophils Absolute Auto 0.1 X10*3/uL (0.0-0.2); Basophils Percent Auto 0.8 % (0-2); Eosinophils Absolute Auto 0.3 X10*3/uL (0.0-0.4); Eosinophils Percent Auto 2.6 % (0-4); Hematocrit 38.5 % (42-52); Lymphocytes Absolute Auto 2.2 X10*3/uL (1.2-4.9); Lymphocytes Percent Auto 21.5 % (20-40); Mean Corpuscular HGB Conc 33.8 g/dl (31.0-36.0); Mean Corpuscular Volume 91.7 fL (80-98); Mean Platelet Volume 8.9 fL (9.4-12.4); Monocytes Percent Auto 9.8 % (2-11); Neutrophils Absolute Auto 6.7 X10*3/uL (2.0-8.3); Neutrophils Percent Auto 64.3 % (45-73); Platelet Count 300 X10*3/uL (160-400); Red Cell Distribution Width 12.6 % (11.0-16.0); White Blood Count 10.4 X10*3/uL (4.8-10.8)
[2020-04-26 07:11] LABS: Anion Gap 14 (12-20); Blood Urea Nitrogen 21 mg/dL (9-16); Calcium 7.5 mg/dL (8.4-10.2); Carbon Dioxide 21 mmol/L (22-29); Chloride 106 mmol/L (96-108); Creatinine Clr Calc Pharmacy 105.7; Estimated Glomerular Filt Rate > 60; Glucose Random 122 mg/dL (60-115); Potassium 3.5 mmol/l (3.3-5.1); Sodium 137 mmol/L (135-145)
--- NOTE | 2020-04-26 10:27 | PM.NEUROCN ---
History of Present Illness Data of Consult Primary Care Provider: Memo Alex MD 65 years old man who had seen few weeks ago when he came to hospital with tremor and had a CT scan of brain done which revealed a a right occipital hyperdensity. My impression was that this was a chronic lesion. He was in hospital now with an episode of syncope. Apparently he had a severe headache yesterday. He said that he never had headaches. At 1 point he was evaluated in the emergency room and then discharged to home. He went home and took some Gatorade and a piece of sandwich and then walked to the Fridge to get some juice. At that point something happened and he fell. He said that he fell on the ground so hard that his neighbor came for help. He did not know what happened afterwards. According to documentation he went to his primary care's office and was noted to have hypotension. Now his headache was resolved. Review of Systems Review of Systems: He complained of severe headache. He said that he did not have previous headaches. There was no cold or flu-like illness. There was no evidence of any seizure. There was no focal numbness or weakness or I finding or symptoms or ear symptoms. He denied any palpitation or chest discomfort. Constitutional: Constitutional: Reports headache(s) and Denies weakness ENT: Denies dizziness and Reports headache(s) Cardiovascular: Cardiovascular: Reports syncope Neurologic: Denies dizziness, Reports syncope, Reports headache(s), Denies Sensory deficit (Neuro), Reports tremor(s) and Denies weakness PMFSH Past Medical History Medical History Brain bleed CAD (coronary artery disease) Cholecystectomy planned Hip replacement planned HTN (hypertension) Myocardial infarction Pacemaker Tremor Functional capacity: independent ambulation Family History Family history: reviewed and not pertinent Surgical History Surgical History History of appendectomy Knee joint replacement by other means Stented coronary artery Social History Social History (Updated 04/26/20 @ 00:59 by TAL Solano) Household Members: None Household Members Other:: lives with roomate Housing: House Do you presently have visiting nurse or other home services: No Alcohol intake: former Smoking Status: Current some day smoker Smoked in Last 30 Days: Yes Patient Interested in Nicotine Replacement: No Use of substances other than those prescribed or required for medical reasons: No Have you been hit, kicked, punched, or otherwise hurt by someone within the past year? If so, by whom?: No Do you feel safe in your current relationship?: No Current Relationship Is there a partner from a previous relationship who is making you feel unsafe now?: No Are you made to feel afraid or neglected: No Advance Directives: No Advance Directives Information Provided: Yes Do you have thoughts of harming others: None Do you have a plan to hurt others: No Plan Recently lost weight without trying: No Meds Allergies Allergy/AdvReac Type Severity Reaction Status Date / Time bee pollen [BEE STINGS] Allergy Severe ANAPHYLAXIS Verified 03/13/20 12:02 indomethacin [Indocin] Allergy Unknown anaphylaxis Verified 03/13/20 12:02 tramadol [Ultram] Allergy Unknown anaphylaxis Verified 03/13/20 12:02 From INDOCIN Allergy Severe ANAPHYLAXIS Uncoded 02/24/20 17:11 From ULTRAM Allergy Severe ANAPHYLAXIS Uncoded 02/24/20 17:11 bee stings Allergy Unknown Unknown Uncoded 03/13/20 12:02 Home Medications Medication Instructions Recorded Confirmed Type amlodipine 1 tab PO QAM 04/25/20 04/26/20 History aspirin 1 tab PO QAM 04/25/20 04/26/20 History bupropion HCl 1 tab PO BID 04/25/20 04/26/20 History lisinopril 10 mg PO BID 04/25/20 04/26/20 History metoprolol tartrate 1 tab PO BID 04/25/20 04/26/20 History rosuvastatin 1 tab PO DAILY 04/25/20 04/26/20 History oxycodone 10 mg PO Q6H PRN 04/26/20 04/26/20 History Physical Exam Vital Signs: Vital Signs: Last Vital Signs Temp 97 F 04/26/20 07:15 Pulse 65 04/26/20 07:15 Resp 19 04/26/20 07:15 BP 132/74 04/26/20 07:15 Pulse Ox 96 04/26/20 07:15 Body Mass Index 28.5 He was alert and awake with normal spontaneity of speech fluency comprehension and anxious affect. Pupils were round reactive to light. Face was symmetrical. There was no obvious arm or leg weakness or pronator drift. Deep tendon reflexes were trace to 1+ with flexor plantars. Neuro: Sensory Exam: No Sensory deficit (Neuro) Results Labs CBC & Chem 7: 04/26/20 05:26 04/26/20 05:26 Labs: Short CBC 04/25/20 04/26/20 Range/Units 19:50 05:26 WBC 14.1 H 10.4 (4.8-10.8) X10*3/uL Hgb 14.0 13.0 L (14.0-18.0) g/dl Hct 41.0 L 38.5 L (42-52) % Plt Count 305 300 (160-400) X10*3/uL BMP 04/25/20 04/26/20 19:50 05:26 Sodium 137 137 Potassium 3.6 3.5 Chloride 104 106 Carbon Dioxide 24 21 L BUN 26 H 21 H Creatinine 0.92 0.79 Calcium 7.9 L D 7.5 L Urine 04/25/20 Range/Units 22:34 Urine Color YELLOW Urine Appearance CLEAR Urine pH 6.0 (5.0-8.0) Ur Specific [place] 1.025 (1.005-1.025) Urine Protein NEG (NEG-TRACE) MG/DL Urine Glucose (UA) NEG (NEG) MG/DL His noncontrast head CT again revealed right occipital hyperdensity probably chronic and probably from a cavernous angioma or an alternate AVM. Assessment and Plan (1) Brain lesion: Status: Acute 65 years old man who probably had orthostatic syncope resulting in a fall. 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 This type of lesion sometime can result in seizure disorder. My recommendation at this time is to obtain an MRI of brain with and without contrast to define this lesion depending upon MRI findings he might also need CTA. An EEG is recommended to rule out any possibility of ictal discharges from this lesion. Procedures Abscess I/D Date of Service: 04/26/20
[2020-04-26] MEDS: oxyCODONE HCl Immed Release 5 MG TABLET 10 MG PO ×2 (10:52→17:13)
--- NOTE | 2020-04-26 11:12 | MHC.CM.PN ---
CM met with patient at the bedside who reports he is independent and lives alone. Patient does have a HCP and a copy is on file. Discussed discharge plan, home no services. Patient will set up own transportation. CM will continue to follow for discharge needs.
[2020-04-26] MEDS: iohexoL 350 MG/ML 100 ML INFUS..BTL 70 ML IV (12:29)
--- NOTE | 2020-04-26 12:57 | P.PNIM_ITS ---
Subjective Subjective Date of Service: 04/26/20 Review of Systems admitted for syncope/ brain lesion. Brain lesion thought to be bleed seen on admission in February. Left AMA prior to repeat imaging at that time. complaining of chronic back pain. ongoing headache No other complaints. Denies dizziness, chest pain Review of Systems: Yes all other systems are reviewed and are negative Constitutional Constitutional: Denies chills and Denies fever(s) Cardiovascular Cardiovascular: Denies chest pain Respiratory Respiratory: Denies cough Gastrointestinal Gastrointestinal: Denies abdominal pain Physical Exam Vital Signs: Vital Signs: Last Vital Signs Temp 97.1 F 04/26/20 10:58 Pulse 65 04/26/20 10:58 Resp 19 04/26/20 10:58 BP 132/74 04/26/20 07:15 Pulse Ox 96 04/26/20 07:15 Body Mass Index 28.5 Const: Nutritional Appearance: well nourished Orientation/consciousness: pa tient oriented x3 HENMT: Head: Yes normocephalic and Yes atraumatic Eyes: Sclerae: sclerae normal Chest: Chest palpation & inspection: normal inspection of the chest Resp: Effort & Inspection: normal respiratory effort and no respiratory distress Auscultation: clear to auscultation bilaterally Cardio: Rate: regular rate Rhythm: regular rhythm GI: Palpation (GI): Soft to palpation and nontender Skin: General skin exam: no rashes or lesions noted Neuro: General: patient oriented x3 Cranial nerves: Yes CN's II-XII intact bilaterally and Yes Bilaterally intact EOM present Extrem: General: Yes normal to inspection Objective Data Current Medications Generic Name Dose Route Start Last Admin Trade Name Freq PRN Reason Stop Dose Admin Atorvastatin Calcium 80 mg 04/26/20 21:00 Atorvastatin Calcium 80 Mg Tablet PO BEDTIME CRICKET Bupropion HCl 300 mg 04/26/20 09:00 04/26/20 08:38 Bupropion Hcl Xl 300 Mg Tab.Er.24h PO Not Given DAILY CRICKET Oxycodone HCl 10 mg 04/26/20 09:53 04/26/20 10:52 Oxycodone Hcl Immed Release 5 Mg Tablet PO 10 mg Q6H PRN Administration Moderate Pain (Scale Score 5-6 Sodium Chloride 3 ml 04/26/20 08:00 04/26/20 08:35 0.9 % Sodium Chloride Flush 3 Ml Syringe IVFLUSH Not Given QSHIFT [facility] Labs CBC & Chem 7: 04/26/20 05:26 04/26/20 05:26 Assessment and Plan (1) Brain lesion: Status: Acute (2) Syncope: Status: Acute Assessment and Plan: this is a 65-year-old male with a history of CAD, hypertension, dyslipidemia, GERD ?brain bleed on CT from 02/2020 who presented with headache and syncopal event syncope trop flat, EKG unchanged Brain CT shows stable brain lesion - check orthostatic blood pressures - echo pending - will consult cardiology Abnormal brain CT Thought to be brain bleed in February, left AMA before repeating imaging unable to have MRI due to pacemaker, brain CTA pending neurology rec EEG to rule out seizure Chronic back pain Continue home oxycodone Mood bupropion CAD no chest pain - hold ASA until CTA brain results return - hypotensive on arrival hold metoprolol hypertension BP low on arrival hold lisinopril, metoprolol, Norvasc follow-up blood pressure closely dvt ppx - boots This case was discussed with Dr. Jin
[2020-04-26] MEDS: Morphine Sulfate 2 MG/ML CARTRIDGE IVPUSH (13:31)
--- NOTE | 2020-04-26 15:24 | PM.EVENT ---
Event Note Date of Service: 04/26/20 Event Note: Addendum mid level progress note I saw and examined the patient and participated in the moon portion of the E/M service. I agree with the evaluated and management as documented by PA in progress note unless otherwise stated. Exam: he reports headache, abd and noted to have elevate BP. Syncope of unclear etiology, no worsening of last documention. Work up and management as directed by Neuro, control BP. Otherwise, I agree with assessment and plan as outlined in the progress note.
[2020-04-26] MEDS: Metoprolol Tartrate 50 MG TABLET PO ×2 (15:27→21:25)
[2020-04-26] MEDS: lisinopriL 10 MG TABLET PO ×2 (15:27→21:25)
[2020-04-26] MEDS: 0.9 % Sodium Chloride Flush 3 ML SYRINGE IVFLUSH ×2 (15:29→22:01)
[2020-04-26] MEDS: hydrALAZINE HCl 20 MG/ML VIAL 10 MG IVPUSH (16:52)
[2020-04-26] MEDS: ondansetron HCL 4 MG/2 ML VIAL IVPUSH (17:13)
[2020-04-26] MEDS: Atorvastatin Calcium 80 MG TABLET PO (21:25)
[2020-04-26] MEDS: Morphine Sulfate 2 MG/ML CARTRIDGE 1 MG IVPUSH (22:00)
[2020-04-27] VITALS (10 sets, daily range): BP systolic 110–176; BP diastolic 58–96; PULSE 59–66; RESP 18–20; TEMP 36–36.9; O2SAT 93–98
[2020-04-27] MEDS: diphenhydrAMINE HCL 50 MG/ML VIAL 25 MG IVPUSH ×2 (00:43→22:00)
[2020-04-27] MEDS: oxyCODONE HCl Immed Release 5 MG TABLET 10 MG PO ×4 (02:10→22:32)
[2020-04-27] MEDS: amLODIPine Besylate 10 MG TABLET PO (07:50)
[2020-04-27] MEDS: buPROPion HCl XL 300 MG TAB.ER.24H PO (07:50)
[2020-04-27] MEDS: Metoprolol Tartrate 50 MG TABLET PO (07:50)
[2020-04-27] MEDS: 0.9 % Sodium Chloride Flush 3 ML SYRINGE IVFLUSH ×3 (07:50→22:01)
[2020-04-27] MEDS: lisinopriL 10 MG TABLET PO ×2 (07:51→21:58)
--- NOTE | 2020-04-27 10:56 | P.CONCA_ITS ---
History of Present Illness History of Present Illness Date of Consult: April 27, 2020 Chief complaint: Syncope Narrative: This is a cardiology consultation regarding syncope. He is well known to me and my regular office patient. He is last appointment with me was in December of this year. He has significant coronary disease and is on optimal medical therapy for the same. He has numerous hospitalizatins in the past regarding chest pains that have led to numerous cardiac catheterizations and most recently in January of this year at [facility]. He also has a pacemaker in place. It appears that current admission is because of headache that is apparently new for him and he never generally gets headache at all. He was vomiting a lot and subsequently he fell to the ground. He cannot recall exactly what happened. He did have chest pain but that seems to be related to the vomiting and does not sound anginal. Not short of breath. He overall, does not feel too good. He used to be on dual antiplatelet therapy but a few months back, he states that the Plavix was stopped after the finding of possible brain bleed. Review of Systems Review of Systems: Cardiac- negative for angina. Negative for shortness of breath. Negative for any palpitations. Positive for syncope. Yes all other systems are reviewed and are negative Constitutional: Constitutional: Reports headache(s) and Denies weakness ENT: Denies dizziness and Reports headache(s) Cardiovascular: Cardiovascular: Reports syncope Neurologic: Denies dizziness, Reports syncope, Reports headache(s), Reports tremor(s) and Denies weakness PMFSH Past Medical History Medical History Brain bleed CAD (coronary artery disease) Cholecystectomy planned Hip replacement planned HTN (hypertension) Myocardial infarction Pacemaker Tremor Functional capacity: independent ambulation Family History Family history: reviewed and not pertinent Surgical History Surgical History History of appendectomy Knee joint replacement by other means Stented coronary artery Social History Social History Household Members: None Household Members Other:: lives with roomate Housing: House Do you presently have visiting nurse or other home services: No Alcohol intake: former Smoking Status: Current some day smoker Smoked in Last 30 Days: Yes Patient Interested in Nicotine Replacement: No Use of substances other than those prescribed or required for medical reasons: No Currently Displaying Signs/Symptoms of Drug Intoxication Withdrawal: No Have you been hit, kicked, punched, or otherwise hurt by someone within the past year? If so, by whom?: No Do you feel safe in your current relationship?: No Current Relationship Is there a partner from a previous relationship who is making you feel unsafe now?: No Are you made to feel afraid or neglected: No Advance Directives: No Advance Directives Information Provided: Yes Do you have thoughts of harming others: None Do you have a plan to hurt others: No Plan Recently lost weight without trying: No service: No Current occupational status: employed Meds Allergies Allergy/AdvReac Type Severity Reaction Status Date / Time bee pollen [BEE STINGS] Allergy Severe ANAPHYLAXIS Verified 03/13/20 12:02 indomethacin [Indocin] Allergy Unknown anaphylaxis Verified 03/13/20 12:02 tramadol [Ultram] Allergy Unknown anaphylaxis Verified 03/13/20 12:02 From INDOCIN Allergy Severe ANAPHYLAXIS Uncoded 02/24/20 17:11 From ULTRAM Allergy Severe ANAPHYLAXIS Uncoded 02/24/20 17:11 bee stings Allergy Unknown Unknown Uncoded 03/13/20 12:02 Home Medications Medication Instructions Recorded Confirmed Type amlodipine 1 tab PO QAM 04/25/20 04/26/20 History aspirin 1 tab PO QAM 04/25/20 04/26/20 History bupropion HCl 1 tab PO BID 04/25/20 04/26/20 History lisinopril 10 mg PO BID 04/25/20 04/26/20 History metoprolol tartrate 1 tab PO BID 04/25/20 04/26/20 History rosuvastatin 1 tab PO DAILY 04/25/20 04/26/20 History oxycodone 10 mg PO Q6H PRN 04/26/20 04/26/20 History Physical Exam Vital Signs: Vital Signs: Last Vital Signs Temp 98.0 F 04/27/20 07:54 Pulse 60 04/27/20 07:54 Resp 18 04/27/20 07:54 BP 168/96 H 04/27/20 07:54 Pulse Ox 93 04/27/20 07:54 Body Mass Index 28.5 Comfortable, no distress No pallor, icterus or cyanosis HEENT -unremarkable JVD- normal Cardiac- normal heart sounds, no murmurs, gallops or rubs, normal PMI Respiratory-normal breath sounds bilaterally, no crackles, no wheeze Abdomen- soft, nontender Neuro- alert and oriented Lower extremities- no significant edema, warm well perfused Results Labs and Meds Result diagrams: 04/26/20 05:26 04/26/20 05:26 Assessment and Plan (1) Syncope and collapse: Status: Acute (2) Atherosclerotic cardiovascular disease: Status: Acute (3) Essential hypertension: Status: Acute (4) Normally functioning cardiac pacemaker present: Status: Acute Cardiac troponins appear to be within normal limits. EKG shows sinus rhythm; 63/Min; cannot exclude old inferior infarct but otherwise no acute ischemic changes. Brain CT shows occipital lobe hyperdensity in the right side. Echocardiogram from [facility] in January shows LVEF 60-65% and otherwise unremarkable. Cardiac catheterization from the same time shows patent stents in the RCA/RPDA; unchanged lesions in RPLV, D1, distal LAD; moderate mid LAD stenosis and overall findings similar to prior cardiac catheterization. His symptoms are not cardiac in nature. His blood pressure when he 1st arrived was 88/61 mm Hg and that could be from dehydration from vomiting. However, subsequent blood pressures have been going markedly high almost into the 200s. At this time, he can be resumed on all his usual medications for coronary disease and blood pressure. Workup for the brain lesion per Neurology. Will follow-up as needed. Procedures Abscess I/D Date of Service: 04/27/20
[2020-04-27] MEDS: Aspirin Enteric Coated 81 MG TABLET.DR PO (11:03)
[2020-04-27] MEDS: ondansetron HCL 4 MG/2 ML VIAL IVPUSH (14:21)
--- NOTE | 2020-04-27 14:25 | PC.NURSE ---
pt complained of nausea, began vomiting. States head pain is severe. Medicated for nausea. when vomiting resolves will medicate for pain
--- NOTE | 2020-04-27 15:59 | HO.PM.IMPN ---
Subjective Subjective Date of Service: 04/27/20 Interval History: the patient was seen and evaluated this morning Laying in bed, complaining of headache, mild dizziness reported Reports double vision with all kind of eye movement Denies any fever, chills or shortness of breath No reported other overnight events. Systemic review: No fever, chills or weakness No chest pain, palpitation No shortness of breath or coughing No abdominal pain, nausea or vomiting No urinary symptoms No any rash or wounds Physical Exam Vital Signs: Vital Signs: Last Vital Signs Temp 97.5 F 04/27/20 15:03 Pulse 59 04/27/20 15:03 Resp 18 04/27/20 15:03 BP 138/84 04/27/20 15:03 Pulse Ox 96 04/27/20 15:03 Body Mass Index 28.5 Constitutional : Alert, oriented, not in distress Neck : Normal inspection, Supple Cardiovascular : RRR, S1 S2, no lower extremity edema Respiratory : Good bilateral air entry, no crackles, wheezes or rhonchi Gastrointestinal: soft, lax, Normal bowel sounds, Non tender Skin : Warm/Dry, No rash Neurological : Alert & oriented x3, has double vision, left eye nystagmus Objective Data Current Medications Generic Name Dose Route Start Last Admin Trade Name Freq PRN Reason Stop Dose Admin Amlodipine Besylate 10 mg 04/27/20 09:00 04/27/20 07:50 Amlodipine Besylate 10 Mg Tablet PO 10 mg DAILY CRICKET Administration Protocol Aspirin 81 mg 04/27/20 09:15 04/27/20 11:03 Aspirin Enteric Coated 81 Mg Tablet.Dr PO 81 mg DAILY CRICKET Administration Atorvastatin Calcium 80 mg 04/26/20 21:00 04/26/20 21:25 Atorvastatin Calcium 80 Mg Tablet PO 80 mg BEDTIME CRICKET Administration Bupropion HCl 300 mg 04/26/20 09:00 04/27/20 07:50 Bupropion Hcl Xl 300 Mg Tab.Er.24h PO 300 mg DAILY CRICKET Administration Hydralazine HCl 10 mg 04/26/20 16:33 04/26/20 16:52 Hydralazine Hcl 20 Mg/Ml Vial IVPUSH 10 mg Q6H PRN Administration For systolic BP > 180 Lisinopril 10 mg 04/26/20 14:55 04/27/20 07:51 Lisinopril 10 Mg Tablet PO 10 mg BID CRICKET Administration Protocol Metoprolol Tartrate 50 mg 04/26/20 14:55 04/27/20 07:50 Metoprolol Tartrate 50 Mg Tablet PO 50 mg BID CRICKET Administration Protocol Ondansetron HCl 4 mg 04/26/20 16:59 04/27/20 14:21 Ondansetron Hcl 4 Mg/2 Ml Vial IVPUSH 4 mg Q8H PRN Administration Nausea Oxycodone HCl 10 mg 04/26/20 09:53 04/27/20 15:53 Oxycodone Hcl Immed Release 5 Mg Tablet PO 10 mg Q6H PRN Administration Moderate Pain (Scale Score 5-6 Sodium Chloride 3 ml 04/26/20 08:00 04/27/20 15:54 0.9 % Sodium Chloride Flush 3 Ml Syringe IVFLUSH 3 ml QSHIFT CRICKET Administration Labs CBC & Chem 7: 04/26/20 05:26 04/26/20 05:26 Assessment and Plan (1) Brain lesion: Status: Acute (2) Syncope: Status: Acute Assessment and Plan: a 65-year-old male with a history of CAD, hypertension, dyslipidemia, GERD who presented with headache and syncopal event syncope trop flat, EKG unchanged Brain CT shows stable brain lesion Negative orthostatic blood pressures echo pending Cardiology input appreciated, symptoms are not cardiac in nature Abnormal brain CT Thought to be brain bleed in February, left AMA before repeating imaging Seems to be brain lesion unable to have MRI due to pacemaker Brain CTA showing right occipital lobe hyperdensity, DD X cavernous malformation, old bleed Neurology input appreciated To check EEG Uncontrolled hypertension Was low on admissions all his blood pressure medications were Hold Continue lisinopril, metoprolol, Norvasc Chronic back pain Continue home oxycodone Mood bupropion CAD Restart ASA dvt ppx SCDs
[2020-04-27] MEDS: Atorvastatin Calcium 80 MG TABLET PO (21:57)
[2020-04-27] MEDS: levETIRAcetam 250 MG TABLET PO (22:11)
[2020-04-28] MEDS: Morphine Sulfate 2 MG/ML CARTRIDGE 1 MG IVPUSH (00:57)
[2020-04-28 03:18] VITALS: BP 145/84; PULSE 65; RESP 19; TEMP 36.7; O2SAT 95
[2020-04-28 06:20] LABS: Hematocrit 39.4 % (42-52); Hemoglobin 13.4 g/dl (14.0-18.0); Mean Corpuscular Hemoglobin 30.8 pg (27.0-33.0); Mean Corpuscular Volume 90.6 fL (80-98); Mean Platelet Volume 8.7 fL (9.4-12.4); Platelet Count 298 X10*3/uL (160-400); Red Blood Count 4.35 X10*6/uL (4.60-5.80); Red Cell Distribution Width 12.4 % (11.0-16.0)
[2020-04-28 06:51] LABS: Anion Gap 11 (12-20); Blood Urea Nitrogen 16 mg/dL (9-16); Calcium 8.2 mg/dL (8.4-10.2); Carbon Dioxide 27 mmol/L (22-29); Chloride 104 mmol/L (96-108); Creatinine Clr Calc Pharmacy 94.9; Estimated Glomerular Filt Rate > 60; Glucose Random 132 mg/dL (60-115); Potassium 3.9 mmol/l (3.3-5.1); Sodium 138 mmol/L (135-145)
[2020-04-28 08:00] VITALS: BP 162/92; PULSE 61; RESP 20; TEMP 36.7; O2SAT 95
[2020-04-28] MEDS: Aspirin Enteric Coated 81 MG TABLET.DR PO (08:45)
[2020-04-28] MEDS: levETIRAcetam 250 MG TABLET PO (08:45)
[2020-04-28] MEDS: buPROPion HCl XL 300 MG TAB.ER.24H PO (08:45)
[2020-04-28 08:46] VITALS: BP 162/92; PULSE 61
[2020-04-28] MEDS: lisinopriL 10 MG TABLET PO (08:46)
[2020-04-28] MEDS: amLODIPine Besylate 10 MG TABLET PO (08:46)
[2020-04-28 08:47] VITALS: BP 162/92; PULSE 61
[2020-04-28] MEDS: 0.9 % Sodium Chloride Flush 3 ML SYRINGE IVFLUSH (08:47)
[2020-04-28] MEDS: oxyCODONE HCl Immed Release 5 MG TABLET 10 MG PO (08:52)
[2020-04-28] MEDS: ondansetron HCL 4 MG/2 ML VIAL IVPUSH (11:16)
[2020-04-28 11:26] VITALS: BP 119/67; PULSE 60; RESP 20; TEMP 36.1; O2SAT 95
--- NOTE | 2020-04-28 11:52 | MHC.CM.PN ---
Patient will be discharged home today no services. Patient will arrange own transportation.
--- NOTE | 2020-04-28 12:28 | P.DS_ITS ---
DS: Providers Provider Date of admission: 04/26/20 00:23 Primary care physician: Memo Alex MD Consults: 04/26/20 02:46 Consult to Neurology Routine Consulting Provider: [facility] Reason for consultation: syncope Has provider been notified: No 04/26/20 13:16 Consult to Cardiology Routine Consulting Provider: Oren Mueller Reason for consultation: syncope; cad, pm Has provider been notified: No DS: Diagnosis Discharge Diagnosis (1) Brain lesion: Status: Acute (2) Syncope: Status: Acute (3) Essential hypertension: Status: Acute (4) Syncope and collapse: Status: Acute (5) Hypotension: Status: Acute (6) CAD (coronary artery disease): Status: Acute (7) Headache: Status: Acute (8) Seizure: Status: Acute DS: Medications Discharge Medications Home Medications: Home Medications Medication Instructions Recorded Confirmed amlodipine 1 tab PO QAM 04/25/20 04/26/20 aspirin 1 tab PO QAM 04/25/20 04/26/20 bupropion HCl 1 tab PO BID 04/25/20 04/26/20 lisinopril 10 mg PO BID 04/25/20 04/26/20 metoprolol tartrate 1 tab PO BID 04/25/20 04/26/20 rosuvastatin 1 tab PO DAILY 04/25/20 04/26/20 oxycodone 10 mg PO Q6H PRN 04/26/20 04/26/20 Previous Rx's Medication Instructions Recorded levetiracetam 250 mg PO BID #60 tab 04/28/20 DS: Summary Hospital Course Hospital Course: Admission note HPI 65 y/o male with a PMHX of HTN, HLP, CAD s/p stenting and PPM who presented from home due to syncope. Per history provided by the patient, today in the afternoon while at home, felt a severe headache extending from the back of his head to the front, 10/10 in intensity, sharp, associated with dizziness causing him to loss consciousness. Patient reports that upon waking up went to his PCP and was found to have a systolic BP of 80-90 fo what was sent to the ED for further evaluation. On presentation patient was hypotensive BP of 88/60 mmHg which later improved to 103/72 mHg without intervention. WBC of 14 without any evidence of infection, troponin neg x 2, CT head negative for any acute intracranial pathology, hyperintense lesion in the right occipital lobe is noted which was present on prior imaging. CTA chest and abdom done per ED which showed incidental liver granuloma but otherwise unremarkable. EKG NSR. Decision for admission given per ED. Patient seen and examined at the bedside, laying down in bed in no acute distress. ROS as above otherwise negative. Physical exam positive for resting tremor, negative for neck stiffness, rest of the exam unremarkable. Patient was admitted recently due to worening tremor/weakness, seen by neuro adn was recommended CT with/without contrast for evaluation of lesion of the brain but patient signed AMA before work up was done back then. Hospital course The patient was admitted to the hospital for evaluation of syncopal episode and reported headache. CT scan of the head and CTA were consistent with stable brain lesion. 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 An EEG was done showing abnormal waves suggestive of seizure disorder. The patient was started on Keppra and to follow-up as outpatient with Neurology for further workup and treatment. No need for any surgical intervention for the brain lesion at this point per Dr. Song. Unable to do MRI as the patient has old type cardiac pacemaker. He was kept on telemetry the whole time with no signs of arrhythmias. He did not develop any further episodes of syncope during the hospital stay. His blood pressure was noted to be very low at time of presentation, very high next 2 days and back to normal today before discharge. He was asked to check his blood pressure at home and reported readings to PCP. Time Spent with Patient Time attestation: Total time spent providing and/or coordinating discharge services: Physical Exam Vital Signs: Vital Signs: Last Vital Signs Temp 96.9 F 04/28/20 11:26 Pulse 60 04/28/20 11:26 Resp 20 04/28/20 11:26 BP 119/67 04/28/20 11:26 Pulse Ox 95 04/28/20 11:26 Body Mass Index 28.5 Constitutional : Alert, oriented, not in distress Neck : Normal inspection, Supple Cardiovascular : RRR, S1 S2, no lower extremity edema Respiratory : Good bilateral air entry, no crackles, wheezes or rhonchi Gastrointestinal: soft, lax, Normal bowel sounds, Non tender Skin : Warm/Dry, No rash Neurological : Alert & oriented x3, no focal deficits, Const: Other: Last Vital Signs Temp 96.9 F 04/28/20 11:26 Pulse 60 04/28/20 11:26 Resp 20 04/28/20 11:26 BP 119/67 04/28/20 11:26 Pulse Ox 95 04/28/20 11:26 Body Mass Index 28.5 Cardio: Other: Last Vital Signs Temp 96.9 F 04/28/20 11:26 Pulse 60 04/28/20 11:26 Resp 20 04/28/20 11:26 BP 119/67 04/28/20 11:26 Pulse Ox 95 04/28/20 11:26 Body Mass Index 28.5 DS: Data Data Completed and Pending Labs on day of discharge: 04/25/20 19:30 0.9 % Sodium Chloride [Ns] 1,000 ml IVCONT 999 mls/hr 04/25/20 19:50 Basic Metabolic Panel Stat Complete Blood Count Auto Diff Stat Hold Lt Blue - Possible Coag Stat Troponin-I High Sensitivity Stat 04/25/20 20:22 CT head/brain wo con Stat 04/25/20 20:24 Acetaminophen [Tylenol] 650 mg PO ONCE ONE Metoclopramide HCl [Reglan] 10 mg IVPUSH ONCE ONE 04/25/20 20:39 XR chest 2V Stat 04/25/20 22:00 0.9 % Sodium Chloride [Ns] 1,000 ml IVCONT 999 mls/hr 04/25/20 22:02 CT angio abdomen pelvis Stat CT angio chest Stat 04/25/20 22:34 UA w Microscopic Stat 04/25/20 22:35 iohexoL 350 MG/ML [Omnipaque 350 MG/ML] 100 ml IV ONCE ONE 04/25/20 23:03 fentaNYL citrate/PF [Sublimaze] 25 mcg IVPUSH ONCE ONE 04/26/20 ECG 12 lead EKG Stat 04/26/20 00:16 COVID-19 ID NOW (Paula) Stat 04/26/20 00:21 Transfer Order Routine 04/26/20 02:30 0.9 % Sodium Chloride [Ns] 500 ml IV 75 mls/hr 04/26/20 03:26 fentaNYL citrate/PF [Sublimaze] 25 mcg IVPUSH ONCE ONE 04/26/20 03:43 Acetaminophen [Tylenol] 650 mg PO ONCE ONE diphenhydrAMINE HCL [Benadryl] 25 mg IVPUSH ONCE ONE 04/26/20 05:26 Basic Metabolic Panel Routine Complete Blood Count Auto Diff Routine 04/26/20 06:00 CT angio head neck Stat 04/26/20 09:00 Atorvastatin Calcium [Lipitor] 80 mg PO DAILY 04/26/20 Breakfast Low Sodium Diet 04/26/20 12:28 iohexoL 350 MG/ML [Omnipaque 350 MG/ML] 70 ml IV ONCE ONE 04/26/20 13:10 Morphine Sulfate 2 mg IVPUSH ONCE ONE 04/26/20 15:11 EKG Documentation DIRECTED 04/26/20 21:38 Morphine Sulfate 1 mg IVPUSH ONCE ONE 04/27/20 00:29 diphenhydrAMINE HCL [Benadryl] 25 mg IVPUSH ONCE ONE 04/27/20 21:31 diphenhydrAMINE HCL [Benadryl] 25 mg IVPUSH ONCE ONE 04/28/20 00:31 Morphine Sulfate 1 mg IVPUSH ONCE ONE 04/28/20 05:27 Basic Metabolic Panel DAILY@0600 Complete Blood Count no Diff DAILY@0600 Laboratory Last Values WBC 8.0 X10*3/uL (4.8-10.8) 04/28/20 05:27 RBC 4.35 X10*6/uL (4.60-5.80) L 04/28/20 05:27 Hgb 13.4 g/dl (14.0-18.0) L 04/28/20 05:27 Hct 39.4 % (42-52) L 04/28/20 05:27 MCV 90.6 fL (80-98) 04/28/20 05:27 MCH 30.8 pg (27.0-33.0) 04/28/20 05:27 MCHC 34.0 g/dl (31.0-36.0) 04/28/20 05:27 RDW 12.4 % (11.0-16.0) 04/28/20 05:27 Plt Count 298 X10*3/uL (160-400) 04/28/20 05:27 MPV 8.7 fL (9.4-12.4) L 04/28/20 05:27 Immature Gran % (Auto) 1.0 % (0.0-0.4) H 04/26/20 05:26 Neut % (Auto) 64.3 % (45-73) 04/26/20 05:26 Lymph % (Auto) 21.5 % (20-40) 04/26/20 05:26 [place] % (Auto) 9.8 % (2-11) 04/26/20 05:26 Eos % (Auto) 2.6 % (0-4) 04/26/20 05:26 Baso % (Auto) 0.8 % (0-2) 04/26/20 05:26 Lymph # (Auto) 2.2 X10*3/uL (1.2-4.9) 04/26/20 05:26 [place] # (Auto) 1.0 X10*3/uL (0.1-1.2) 04/26/20 05:26 Eos # (Auto) 0.3 X10*3/uL (0.0-0.4) 04/26/20 05:26 Baso # (Auto) 0.1 X10*3/uL (0.0-0.2) 04/26/20 05:26 Abs Immat Gran (auto) 0.10 X10*3/uL (0.00-0.03) H 04/26/20 05:26 Absolute Neuts (auto) 6.7 X10*3/uL (2.0-8.3) 04/26/20 05:26 Absolute Nucleated RBC 0.000 X10*3/uL (0.0-0.012) 04/28/20 05:27 Nucleated RBC % (auto) 0.0 /100WBC (0.0-0.2) 04/28/20 05:27 Hold Blue Top SEE NOTE 04/25/20 19:50 Sodium 138 mmol/L (135-145) 04/28/20 05:27 Potassium 3.9 mmol/l (3.3-5.1) 04/28/20 05:27 Chloride 104 mmol/L (96-108) 04/28/20 05:27 Carbon Dioxide 27 mmol/L (22-29) 04/28/20 05:27 Anion Gap 11 (12-20) L 04/28/20 05:27 BUN 16 mg/dL (9-16) 04/28/20 05:27 Creatinine 0.88 mg/dL (0.5-1.4) 04/28/20 05:27 Estim Creat Clear Calc 94.9 04/28/20 05:27 Estimated GFR > 60 04/28/20 05:27 Random Glucose 132 mg/dL (60-115) H 04/28/20 05:27 Calcium 8.2 mg/dL (8.4-10.2) L D 04/28/20 05:27 Troponin I High Sens 11.0 ng/L (<3.5-35.0) 04/25/20 19:50 Urine Color YELLOW 04/25/20 22:34 Urine Appearance CLEAR 04/25/20 22:34 Urine pH 6.0 (5.0-8.0) 04/25/20 22:34 Ur Specific [place] 1.025 (1.005-1.025) 04/25/20 22:34 Urine Protein NEG MG/DL (NEG-TRACE) 04/25/20 22:34 Urine Glucose (UA) NEG MG/DL (NEG) 04/25/20 22:34 Urine Ketones NEG MG/DL (NEG) 04/25/20 22:34 Urine Blood NEG (NEG) 04/25/20 22:34 Urine Nitrite NEG (NEG) 04/25/20 22:34 Ur Leukocyte Esterase NEG (NEG) 04/25/20 22:34 Urine RBC 0 /HPF (0) 04/25/20 22:34 Urine WBC 0 /HPF (0-4) 04/25/20 22:34 Ur Squamous Epith Cells NONE /LPF 04/25/20 22:34 Urine Bacteria NONE /LPF 04/25/20 22:34 COVID-19 (DOMEN[facility]) Negative (Negative) 04/26/20 00:16 COVID-19 Clin Com See Note 04/26/20 00:16 CTA head and neck IMPRESSION: Redemonstration of right occipital lobe hyperdensity without significant change compared with 03/06/2020. Although this finding could represent a small area of parenchymal hemorrhage the lack of interval change/resolution compared with 03/06/2020 is atypical. An area of dystrophic calcification is in the differential. A cavernous malformation could also be considered. If the patient's pacemaker is MRI compatible, an MRI could be performed for further evaluation. No significant stenosis within the major head or neck arteries. No definite aneurysm identified. Discharge Plan Discharge Patient Disposition: Home, Self-Care Referrals: Name,MD Memo [Primary Care Provider] - Discharge Medications: New levetiracetam 250 mg Tablet 250 mg PO BID Qty: 60 RF: 0 Continued bupropion HCl 150 mg tablet sustained-release 12 hr 1 tab PO BID RF: 0 aspirin 81 mg tablet,delayed release (DR/EC) 1 tab PO QAM RF: 0 amlodipine 10 mg tablet 1 tab PO QAM RF: 0 lisinopril 10 mg Tablet 10 mg PO BID RF: 0 metoprolol tartrate 50 mg tablet 1 tab PO BID RF: 0 rosuvastatin 40 mg tablet 1 tab PO DAILY RF: 0 oxycodone 10 mg Tablet 10 mg PO Q6H PRN (Reason: Moderate Pain (Scale Score 5-6)) RF: 0 Discharge Orders: Discharge Order (Routine); Ordered 04/28/20 Ordered By: Bandar Dobbs Diet: advance to usual diet and low salt diet Activity on Discharge: As tolerated Visit Report Forms: Patient Portal Discharge page Care Plan Goals: Read below Health Concerns: Read below Plan of Treatment: You were Admitted to the hospital for evaluation of headache and syncopal episode. You were evaluated by brain CT and CTA which worked consistent with an occipital brain lesion. You were seen by Neurology who recommended EEG study which showed abnormal waves suggesting seizure disorder. Dr. Song from Neurology advice is to start Keppra twice daily for the time being with no plans for surgical intervention. Please call Dr. Song office at [phone] for a follow-up visit within the next 2 weeks Continue Keppra as prescribed Monitor your blood pressure at home and reports the readings to PCP
== END 2020-04-28 13:30 | disposition home or self-care (01) | DRG 101 ==
LOC: HO.ED 23:30 → HO.IMC 04-26 01:10
PROVIDERS: Physician Assistant Medical; Admitting Provider Internal Medicine; Emergency Provider Emergency Medicine; PCP Internal Medicine Geriatric Medicine; Visit Provider Student in an Organized Health Care Education/Training Program
DX: G40.909 Epilepsy, unspecified, not intractable, without status epilepticus (principal); G93.9 Disorder of brain, unspecified; I10 Essential (primary) hypertension; K21.9 Gastro-esophageal reflux disease without esophagitis; M10.9 Gout, unspecified; F17.210 Nicotine dependence, cigarettes, uncomplicated; I25.10 Atherosclerotic heart disease of native coronary artery without angina pectoris; F29 Unspecified psychosis not due to a substance or known physiological condition; G89.29 Other chronic pain; Z71.6 Tobacco abuse counseling; Z20.828 Contact with and (suspected) exposure to other viral communicable diseases; Z95.0 Presence of cardiac pacemaker; Z79.82 Long term (current) use of aspirin; Z79.899 Other long term (current) drug therapy
CPT/HCPCS: 36415; 70450; 70496; 70498; 71046; 71275; 74174; 80048; 81001; 84484; 85025; 85027; 87635; 93005; 95816; 96374; 96375; 99284; 99285; J1200; J2270; J2405; J2765; J3010; Q9967

== ENCOUNTER → 2020-05-10 08:50 | Outpatient (BNVA) | payer MEDICARE, MEDICAID, SELFPAY | PROVIDERS: PCP Internal Medicine Geriatric Medicine; Visit Provider Internal Medicine Gastroenterology | DX: K21.9 Gastro-esophageal reflux disease without esophagitis (principal); R51.9 Headache, unspecified; R56.9 Unspecified convulsions; Z12.11 Encounter for screening for malignant neoplasm of colon | CPT/HCPCS: 99212 ==

== ENCOUNTER 2020-06-06 13:06 | Outpatient (REF) | payer MEDICARE, MEDICAID, SELFPAY ==
[2020-06-06 15:19] LABS: Erythrocyte Sedimentation Rate 12 MM/HR (0-15)
[2020-06-07 08:34] LABS: Syphilis Screen Nonreactive (Nonreactive)
[2020-06-07 20:53] LABS: Lyme Abs Screen <0.90 index
== END 2020-06-06 13:07 | disposition home or self-care (01) ==
LOC: HO.LAB 13:06
PROVIDERS: PCP Internal Medicine Geriatric Medicine; Visit Provider Psychiatry & Neurology Neurology
DX: Z00.00 Encounter for general adult medical examination without abnormal findings (principal)
CPT/HCPCS: 36415; 85652; 86618; 86780

== ENCOUNTER 2020-06-14 14:47 | Emergency (ER) | payer MEDICARE, MEDICAID, SELFPAY ==
[2020-06-14 14:56] VITALS: BP 132/78; PULSE 60; RESP 10; TEMP 37; O2SAT 98; BMI 26.7
[2020-06-14 15:06] VITALS: O2SAT 98
--- NOTE | 2020-06-14 15:06 | CT_ITS ---
EXAMINATION: CT OF THE HEAD AND CERVICAL SPINE WITHOUT CONTRAST CLINICAL INFORMATION: Fall. Unable to hold still COMPARISON: 04/26/2020 and 03/29/2020 TECHNIQUE: Contiguous axial imaging was performed from the vertex to the thoracic inlet, through the head and cervical spine, without intravenous administration of contrast. Coronal and sagittal reformatted images through the cervical spine were obtained on the technologists workstation. Total exam dose-length product: 515+1034 mGy-cm This CT examination was performed using dose optimization techniques as appropriate, variously including the following: *Automated exposure control *Adjustment of mA and/or kV according to patient size (this includes techniques or standardized protocols for targeted exams where dose is matched to indication/reason for exam; i.e. extremities or head) *Use of iterative reconstruction technique FINDINGS: Head: Again seen is a 7-8mm hyperdense focus in the right occipital cortex, similar in appearance to the prior study 04/16/2020 and earlier. The continued stability favors calcification rather than chronic hemorrhage. No acute intracranial hemorrhage. No extra-axial fluid collection. There is new partial loss of maciel-white differentiation and subcortical low density in the left occipital cortex concerning for acute or subacute ischemia. The ventricles and sulci are similar in configuration to the prior studies. No hydrocephalus. Globes and orbits are normal. There is opacification of the right mastoid air cells. Right maxillary sinus mucous retention cyst or polyp. No evidence of acute sinusitis. No skull fracture seen. Cervical spine: There is reversal of the normal cervical lordosis. There is subtle 2 to 3 mm anterolisthesis of C2 on C3, C3 on C4, and C4 on C5. There is multilevel cervical facet arthropathy but no malalignment of the facet joints to suggest traumatic malalignment. Normal prevertebral soft tissues. No fracture seen. There is multilevel degenerative disc disease most notable at C5-C6 and C6-C7 with loss of disc height and bulky anterior osteophytosis. Thyroid homogeneous with no nodules seen. Partially imaged left apical pleural parenchymal scarring. No cervical lymphadenopathy, mass, or fluid collection. CT/CT cervical spine wo con IMPRESSION: New partial loss of maciel-white differentiation and subcortical low density involving the left occipital cortex concerning for acute or subacute ischemia. No acute intracranial hemorrhage seen. Unchanged 8 mm hyperdense focus in the right occipital cortex, stable since prior studies in 2019, suggesting dystrophic calcification rather than hemorrhage. Multilevel cervical spondylosis particularly at C5-C6 and C6-C7 with no acute traumatic osseous abnormality. This critical result was discussed with El ARREDONDO by telephone at 06/14/2020 5:25 PM and it was ascertained that the content and urgency of the report was understood at the time of direct communication. .
--- NOTE | 2020-06-14 15:06 | ECG_ITS ---
Test Reason : SYNCOPE Blood Pressure : / mmHG Vent. Rate : 077 BPM Atrial Rate : 077 BPM P-R Int : 178 ms QRS Dur : 112 ms QT Int : 452 ms P-R-T Axes : 087 -04 016 degrees QTc Int : 511 ms Atrial-paced rhythm with frequent Premature ventricular complexes Cannot rule out Inferior infarct (cited on or before 29-NOV-2017) Prolonged QT Abnormal ECG When compared with ECG of 25-APR-2020 17:57, QT has lengthened PVC present Referred By: Maeve Flores Electronically Signed By:Jeffy Ballard
--- NOTE | 2020-06-14 15:26 | ED_ITS ---
HPI - Syncope General Chief Complaint: Syncope Stated Complaint: fall, ?syncope/seizure Time Seen by Provider: 06/14/20 15:05 Source: patient and EMS Mode of arrival: EMS Limitations: no limitations History of Present Illness HPI narrative: 65 yo male worked up since February for syncope vs seizure has been on keppra and doing somewhat better but had another episode today and hit his head, refused c collar, has no preceding events or symptoms, compliant with medications, today is very similar to his prior events, has had headaches and episodes since February had a TBI at that time MD complaint: loss of consciousness Onset (ago): minute(s) (just [employer]) -: second(s) Description of event: post-event confusion Prodromal symptoms: none Witnessed: No Context: standing up Injuries sustained associated with event: head Current symptoms: headache and nausea History: seizure disorder and previous syncopal episode Treatments prior to arrival: none Related Data Home Medications Medication Instructions Recorded Confirmed amlodipine 1 tab PO QAM 04/25/20 05/10/20 aspirin 1 tab PO QAM 04/25/20 05/10/20 bupropion HCl 1 tab PO BID 04/25/20 04/26/20 lisinopril 10 mg PO BID 04/25/20 05/10/20 metoprolol tartrate 1 tab PO BID 04/25/20 05/10/20 rosuvastatin 1 tab PO DAILY 04/25/20 05/10/20 oxycodone 10 mg PO Q6H PRN 04/26/20 05/10/20 omeprazole 40 mg capsule,delayed 40 mg PO BID 05/10/20 05/10/20 release Previous Rx's Medication Instructions Recorded levetiracetam 250 mg PO BID #60 tab 04/28/20 sodium,potassium,mag sulfates 17.5 See Rx Instructions PO ONCE 1 Days 05/24/20 gram-3.13 gram-1.6 gram oral soln #354 ml Allergies Allergy/AdvReac Type Severity Reaction Status Date / Time bee pollen [BEE STINGS] Allergy Severe ANAPHYLAXIS Verified 03/13/20 12:02 indomethacin [Indocin] Allergy Severe anaphylaxis Verified 05/09/20 13:34 tramadol [Ultram] Allergy Severe anaphylaxis Verified 05/09/20 13:34 Review of Systems Review of Systems: Constitutional : No Weight loss, No Fever, No Chills, No Fa tigue, No Malaise ENT/Mouth : No sore throat, No Rhinorrhea Eyes: No Eye Pain, No Swelling, No Redness Cardiovascular : No Chest Pain, No SOB, No Dyspnea on Exertion, No Orthopnea, No Edema, No Palpitations Respiratory : No Cough, No Sputum, No Wheezing Gastrointestinal : pos Nausea, No Vomiting, No Diarrhea, No Constipation, No abdominal Pain, No Hematochezia, No Melena Genitourinary : No Dysuria, No Urinary Frequency, No Hematuria, Musculoskeletal : No joint pain, No Myalgias, No Joint Swelling Skin : No Skin Lesions, No rash Neuro : No Weakness, No Numbness, No Dizziness, pos Headache Psych : No Anxiety/Panic, No Depression Heme/Lymph: No Bruising, No Bleeding,No Lymphadenopathy Endocrine : No Polyuria, No Polydipsia All other systems reviewed and are negative FOR[facility]LY [facility] Past Medical History Attestation statement: The following information was validated with the patient. Medical History Atherosclerotic cardiovascular disease Brain bleed Brain lesion CAD (coronary artery disease) Cholecystectomy planned Esophagitis Essential hypertension GERD (gastroesophageal reflux disease) Headache Hip replacement planned HTN (hypertension) Hypotension Myocardial infarction Normally functioning cardiac pacemaker present Pacemaker Psychotic disorder Screening for colon cancer Syncope Tremor Surgical History History of appendectomy History of esophagogastroduodenoscopy (EGD) Knee joint replacement by other means Stented coronary artery Social History Social History Household Members: None Housing: House Alcohol intake: former Smoking Status: Current some day smoker Smoked in Last 30 Days: Yes Use of substances other than those prescribed or required for medical reasons: No Advance Directives: No Advance Directives Information Provided: Yes service: No Current occupational status: employed Physical Exam Vital Signs: Vital Signs: Last Vital Signs Temp 98.6 F 06/14/20 14:56 Pulse 60 06/14/20 14:56 Resp 10 L 06/14/20 14:56 BP 132/78 06/14/20 14:56 Pulse Ox 98 06/14/20 15:06 Body Mass Index 26.7 Appearance: Alert. Oriented X3. No acute distress. Eyes: Pupils equal, round and reactive to light. ENT: Pharynx normal. Atraumatic Neck: Normal inspection. Neck supple. CVS: Normal heart rate and rhythm. Pulses normal. Respiratory: No respiratory distress. Breath sounds normal. Abdomen: Soft and non-tender. Skin: Skin warm and dry. Normal skin color. Normal skin turgor. Extremities: No lower extremity edema. No calf ttp Neuro: Oriented X 3. No motor deficit. No sensory deficit. Course Course Course Narrative: signed out to Dr. Stark pending CT head and repeat troponin MDM - Syncope MDM Narrative Medical decision making narrative: 65 yo male with PPM, recurrent episodes of syncope v seizure has been doing somewhat okay on his keppra - patient will need labs, troponin x 2, EKG, CT head, dispo per results and findings, this is a chronic issue possible seizure Lab Data Result diagrams: 06/14/20 15:21 06/14/20 15:22 Labs: Lab Results 06/14/20 06/14/20 06/14/20 Range/Units 15:21 15:22 15:22 WBC 9.0 (4.8-10.8) X10*3/uL RBC 4.51 L (4.60-5.80) X10*6/uL Hgb 14.0 (14.0-18.0) g/dl Hct 41.3 L (42-52) % MCV 91.6 (80-98) fL MCH 31.0 (27.0-33.0) pg MCHC 33.9 (31.0-36.0) g/dl RDW 13.0 (11.0-16.0) % Plt Count 315 (160-400) X10*3/uL MPV 8.7 L (9.4-12.4) fL Immature Gran % (Auto) 0.6 H (0.0-0.4) % Neut % (Auto) 66.3 (45-73) % Lymph % (Auto) 20.4 (20-40) % [place] % (Auto) 8.4 (2-11) % Eos % (Auto) 3.5 (0-4) % Baso % (Auto) 0.8 (0-2) % Lymph # (Auto) 1.8 (1.2-4.9) X10*3/uL [place] # (Auto) 0.8 (0.1-1.2) X10*3/uL Eos # (Auto) 0.3 (0.0-0.4) X10*3/uL Baso # (Auto) 0.1 (0.0-0.2) X10*3/uL Abs Immat Gran (auto) 0.05 H (0.00-0.03) X10*3/uL Absolute Neuts (auto) 6.0 (2.0-8.3) X10*3/uL Absolute Nucleated RBC 0.000 (0.0-0.012) X10*3/uL Nucleated RBC % (auto) 0.0 (0.0-0.2) /100WBC PT 11.1 (10.8-13.0) SEC INR 0.9 (0.9-1.1) APTT 34.6 (24.1-38.0) SEC Sodium 141 (135-145) mmol/L Potassium 4.0 (3.3-5.1) mmol/l Chloride 108 (96-108) mmol/L Carbon Dioxide 24 (22-29) mmol/L Anion Gap 13 (12-20) BUN 18 H (9-16) mg/dL Creatinine 0.78 (0.5-1.4) mg/dL Estim Creat Clear Calc 97.8 Estimated GFR > 60 Random Glucose 87 (60-115) mg/dL Calcium 8.2 L (8.4-10.2) mg/dL Magnesium 2.2 (1.6-2.6) mg/dL Total Bilirubin 0.3 (0.0-1.0) mg/dL Direct Bilirubin 0.2 (0.0-0.5) mg/dL AST 54 H (5-37) U/L ALT 69 H (0-40) U/L Alkaline Phosphatase 107 (39-117) U/L Troponin I High Sens (<3.5-35.0) ng/L Total Protein 6.5 (6.5-8.0) g/dL Albumin 4.2 (3.5-5.0) g/dL Lipase 28 (8-78) U/L 06/14/20 Range/Units 15:22 WBC (4.8-10.8) X10*3/uL RBC (4.60-5.80) X10*6/uL Hgb (14.0-18.0) g/dl Hct (42-52) % MCV (80-98) fL MCH (27.0-33.0) pg MCHC (31.0-36.0) g/dl RDW (11.0-16.0) % Plt Count (160-400) X10*3/uL MPV (9.4-12.4) fL Immature Gran % (Auto) (0.0-0.4) % Neut % (Auto) (45-73) % Lymph % (Auto) (20-40) % [place] % (Auto) (2-11) % Eos % (Auto) (0-4) % Baso % (Auto) (0-2) % Lymph # (Auto) (1.2-4.9) X10*3/uL [place] # (Auto) (0.1-1.2) X10*3/uL Eos # (Auto) (0.0-0.4) X10*3/uL Baso # (Auto) (0.0-0.2) X10*3/uL Abs Immat Gran (auto) (0.00-0.03) X10*3/uL Absolute Neuts (auto) (2.0-8.3) X10*3/uL Absolute Nucleated RBC (0.0-0.012) X10*3/uL Nucleated RBC % (auto) (0.0-0.2) /100WBC PT (10.8-13.0) SEC INR (0.9-1.1) APTT (24.1-38.0) SEC Sodium (135-145) mmol/L Potassium (3.3-5.1) mmol/l Chloride (96-108) mmol/L Carbon Dioxide (22-29) mmol/L Anion Gap (12-20) BUN (9-16) mg/dL Creatinine (0.5-1.4) mg/dL Estim Creat Clear Calc Estimated GFR Random Glucose (60-115) mg/dL Calcium (8.4-10.2) mg/dL Magnesium (1.6-2.6) mg/dL Total Bilirubin (0.0-1.0) mg/dL Direct Bilirubin (0.0-0.5) mg/dL AST (5-37) U/L ALT (0-40) U/L Alkaline Phosphatase (39-117) U/L Troponin I High Sens < 3.5 D (<3.5-35.0) ng/L Total Protein (6.5-8.0) g/dL Albumin (3.5-5.0) g/dL Lipase (8-78) U/L Discharge Plan Discharge Prescriptions: No Action Suprep Bowel Prep Kit 17.5-3.13-1.6 gram recon soln See Rx Instructions PO ONCE 1 Days Qty: 354 RF: 0 bupropion HCl 150 mg tablet sustained-release 12 hr 1 tab PO BID RF: 0 aspirin 81 mg tablet,delayed release (DR/EC) 1 tab PO QAM RF: 0 amlodipine 10 mg tablet 1 tab PO QAM RF: 0 lisinopril 10 mg Tablet 10 mg PO BID RF: 0 metoprolol tartrate 50 mg tablet 1 tab PO BID RF: 0 rosuvastatin 40 mg tablet 1 tab PO DAILY RF: 0 oxycodone 10 mg Tablet 10 mg PO Q6H PRN (Reason: Moderate Pain (Scale Score 5-6)) RF: 0 levetiracetam 250 mg Tablet 250 mg PO BID Qty: 60 RF: 0 omeprazole 40 mg capsule,delayed release(DR/EC) 40 mg PO BID RF: 0
[2020-06-14 15:34] LABS: MANUAL DIFF FLAG NO
[2020-06-14 15:37] LABS: Basophils Absolute Auto 0.1 X10*3/uL (0.0-0.2); Basophils Percent Auto 0.8 % (0-2); Eosinophils Absolute Auto 0.3 X10*3/uL (0.0-0.4); Eosinophils Percent Auto 3.5 % (0-4); Hematocrit 41.3 % (42-52); Imm Gran Abs Auto 0.05 X10*3/uL (0.00-0.03); Imm Gran Pct Auto 0.6 % (0.0-0.4); Lymphocytes Absolute Auto 1.8 X10*3/uL (1.2-4.9); Lymphocytes Percent Auto 20.4 % (20-40); Mean Corpuscular HGB Conc 33.9 g/dl (31.0-36.0); Mean Corpuscular Volume 91.6 fL (80-98); Mean Platelet Volume 8.7 fL (9.4-12.4); Monocytes Absolute Auto 0.8 X10*3/uL (0.1-1.2); Monocytes Percent Auto 8.4 % (2-11); Neutrophils Percent Auto 66.3 % (45-73); Platelet Count 315 X10*3/uL (160-400); Red Blood Count 4.51 X10*6/uL (4.60-5.80)
[2020-06-14 15:41] LABS: INTERNATIONAL NORM RATIO 0.9 (0.9-1.1); Prothrombin Time 11.1 SEC (10.8-13.0)
[2020-06-14 15:44] LABS: Partial Thromboplastin Time 34.6 SEC (24.1-38.0)
[2020-06-14 16:15] LABS: Alanine Aminotransferase 69 U/L (0-40); Albumin Level 4.2 g/dL (3.5-5.0); Alkaline Phosphatase 107 U/L (39-117); Anion Gap 13 (12-20); Aspartate Amino Transferase 54 U/L (5-37); Bilirubin Direct 0.2 mg/dL (0.0-0.5); Bilirubin Total 0.3 mg/dL (0.0-1.0); Blood Urea Nitrogen 18 mg/dL (9-16); Calcium 8.2 mg/dL (8.4-10.2); Carbon Dioxide 24 mmol/L (22-29); Chloride 108 mmol/L (96-108); Creatinine Clr Calc Pharmacy 97.8; Estimated Glomerular Filt Rate > 60; Glucose Random 87 mg/dL (60-115); Lipase 28 U/L (8-78); Magnesium 2.2 mg/dL (1.6-2.6); Sodium 141 mmol/L (135-145); Total Protein 6.5 g/dL (6.5-8.0)
[2020-06-14 16:17] LABS: Troponin-I High Sensitivity < 3.5 ng/L (<3.5-35.0)
[2020-06-14 16:49] VITALS: BP 140/88; PULSE 61; RESP 16; O2SAT 98
--- NOTE | 2020-06-14 17:47 | CT_ITS ---
EXAMINATION: CT ANGIOGRAM HEAD CLINICAL INFORMATION: Left occipital cerebrovascular accident. COMPARISON: Head CT from 06/14/2020. CTA head and neck from 04/26/2020. TECHNIQUE: Initial noncontrast metal patternmaker imaging of the head was performed. Comparison is made with prior noncontrast head CT. Test bolus sequences followed by intravenous administration 70 mL of Omnipaque 350. Helical imaging was performed in the axial plane from the skull base to the skull vertex. Delayed postcontrast imaging of the head was also performed. The data was processed at the senior technologist's workstation for generation of MIP sequences. Angled MIPs and volume rendered reformatted images were also generated at an offline 3D workstation. Stenoses are assessed in accordance with NASCET criteria unless otherwise indicated. DLP: 1902 mGy-cm FINDINGS: CT Head: There is no evidence of acute intracranial hemorrhage or edematous territorial infarction. Chronic 0.6 cm amorphous hypoattenuation within the posterior right occipital lobe. Similar prior exam, there may be slightly increased white matter hypoattenuation with the left occipital lobe. No evidence of new loss of maciel-white matter differentiation. Scattered hypoattenuation in the periventricular and deep white matter are consistent with mild to moderate microangiopathy. The ventricles are normal in size and configuration. No evidence for obstructive hydrocephalus. No abnormal mass effect or midline shift. The cerebellar tonsils are positioned at the level the foramen magnum. No extra-axial fluid collections. No pathologic intra-axial enhancement or regional oligemia. No acute soft tissue or osseous abnormalities. Mild mucosal thickening of the paranasal sinuses. Mild to moderate right-sided mastoid effusion. The left-sided mastoid air cells and middle ear cavity are clear. Brain CTA: Intracranial Internal Carotid Arteries: Mild calcific atherosclerotic disease of the intracranial internal carotid arteries without occlusion or flow-limiting stenosis. Normal contrast opacification of the petrous, cavernous, paraophthalmic, and supraclinoid segments of the internal carotid arteries without focal stenosis. Right Anterior Cerebral Artery: Normal A1 segment. Normal opacification of the distal segments of the TANVIR. Left Anterior Cerebral Artery: The A1 segment is mildly diminutive. Normal opacification of the distal segments of the TANVIR. Anterior Communicating Artery: Normal. Right Middle Cerebral Artery: Normal opacification of the M1 segment of the MCA without focal stenosis or occlusion. Normal arborization of the distal segments. Left Middle Cerebral Artery: Normal opacification of the M1 segment of the MCA without focal stenosis or occlusion. Normal arborization of the distal segments. Right Vertebral Artery: Normal opacification of the V4 segment. Normal opacification of the proximal segments of the posterior inferior cerebellar artery. Left Vertebral Artery: The V4 segment largely terminates as the posterior inferior cerebellar artery. Normal opacification of the proximal segments of the PICA. Threadlike continuation of the V4 segment of the basilar artery. Basilar Artery: Normal opacification without focal stenosis or occlusion. Normal appearance of the proximal superior cerebellar arteries. Right Posterior Cerebral Artery: Normal P1 segment. Normal opacification of the distal segments of the ANALYTICS LEADER. Left Posterior Cerebral Artery: Normal P1 segment. Normal opacification of the distal segments of the ANALYTICS LEADER. Normal opacification of the superior sagittal, straight, transverse, and sigmoid sinuses. CT/CT angio head IMPRESSION: 1. No evidence of acute intracranial hemorrhage or edematous territorial infarction. 2. CTA of the head without proximal occlusion or flow-limiting stenosis. 3. Stable chronic hyperattenuating focus in the right occipital lobe. 4. Potential mildly increased white matter hypoattenuation within the left occipital lobe. In the appropriate clinical setting, this can be seen in the setting of posterior reversible encephalopathy syndrome (PRES).
[2020-06-14] MEDS: levETIRAcetam in NaCl (iso-os) 1,000 MG/100 ML PIGGYBACK 400 MG IV (17:50)
[2020-06-14 17:51] VITALS: BP 158/89; PULSE 60; RESP 17; O2SAT 98
[2020-06-14] MEDS: iohexoL 350 MG/ML 100 ML INFUS..BTL IV (18:28)
--- NOTE | 2020-06-14 19:24 | PC.NURSE ---
Report taken from Marcus, trey RN resuming care. Pt found standing in room, voiding in bedside urinal. Pt is CAOx4, aware of plan to DC home at this time, awaiting DC paperwork.
[2020-06-14 19:33] VITALS: BP 144/92; PULSE 72; RESP 16
== END 2020-06-14 19:41 | disposition home or self-care (01) ==
PROVIDERS: Emergency Medicine; Emergency Provider Internal Medicine; PCP Internal Medicine Geriatric Medicine
DX: R55 Syncope and collapse (principal); G44.309 Post-traumatic headache, unspecified, not intractable; M54.2 Cervicalgia; F17.200 Nicotine dependence, unspecified, uncomplicated; M54.5 Low back pain; Z71.6 Tobacco abuse counseling; Z79.899 Other long term (current) drug therapy
CPT/HCPCS: 36415; 70450; 70496; 72125; 80048; 80076; 83690; 83735; 84484; 85025; 85610; 85730; 93005; 96365; 96375; 99285; J1953; Q9967

== ENCOUNTER 2020-07-10 07:01 | Outpatient (REF) | payer MEDICARE, MEDICAID, SELFPAY | END 2020-07-10 07:02 | disposition home or self-care (01) | LOC: HO.LAB 07:01 | PROVIDERS: Visit Provider Internal Medicine | DX: Z20.822 Contact with and (suspected) exposure to COVID-19 (principal) | CPT/HCPCS: 36415; C9803; U0003; U0005 ==

== ENCOUNTER 2020-09-14 07:18 | Day surgery (SDC) | payer MEDICARE, MEDICAID, SELFPAY ==
[2020-09-08 14:18] VITALS: BMI 28.3
--- NOTE | 2020-09-13 08:47 | P.CONAN_ITS ---
Documented by User: Fern Herndon 09/13/20 09:03 HPI - Anesthesia Eval Consult details Narrative: 65yo M for Upper Endoscopy and Colonoscopy [facility] Active Problems Active Problems: All Active Problems (Updated 09/08/20 @ 14:24 by Kathy Brand) Seizure (Acute) Encounter for interrogation of cardiac pacemaker (Acute) Sick sinus syndrome (Acute) Screening for colon cancer (Acute) Headache (Acute) GERD (gastroesophageal reflux disease) (Acute) Past Medical History Medical History (Updated 09/13/20 @ 09:03 by Fern Herndon) Atherosclerotic cardiovascular disease Brain bleed Brain lesion CAD (coronary artery disease) Cholecystectomy planned COVID-19 vaccine administered Esophagitis Essential hypertension GERD (gastroesophageal reflux disease) Headache Hip replacement planned HTN (hypertension) Hypotension Myocardial infarction Pacemaker Psychotic disorder Screening for colon cancer Seizures Syncope Tremor Surgical History Surgical History History of appendectomy History of esophagogastroduodenoscopy (EGD) Knee joint replacement by other means Stented coronary artery Social History Social History Household Members: None Housing: House Are you a primary caretaker grounds to a significant other at home: No Do you presently have visiting nurse or other home services: No Alcohol intake: former Smoking Status: Current every day smoker Packs Per Day: 6 Cigarettes Per Day: 120.0 Years Smoked: 25 Use of substances other than those prescribed or required for medical reasons: No Have you been hit, kicked, punched, or otherwise hurt by someone within the past year? If so, by whom?: No Advance Directives Information Provided: No Recently lost weight without trying: No service: No Current occupational status: employed Meds Allergies Allergy/AdvReac Type Severity Reaction Status Date / Time bee pollen [BEE STINGS] Allergy Severe ANAPHYLAXIS Verified 03/13/20 12:02 indomethacin [Indocin] Allergy Severe anaphylaxis Verified 05/09/20 13:34 tramadol [Ultram] Allergy Severe anaphylaxis Verified 05/09/20 13:34 Home Medications Medication Instructions Recorded Confirmed Last Taken Type amlodipine 10 mg PO QAM 04/25/20 09/08/20 Unknown History aspirin 81 mg PO QAM 04/25/20 09/08/20 Unknown History bupropion HCl 150 mg PO BID 04/25/20 09/08/20 Unknown History lisinopril 10 mg PO BID 04/25/20 09/08/20 Unknown History metoprolol tartrate 50 mg PO BID 04/25/20 09/08/20 Unknown History rosuvastatin 40 mg PO DAILY 04/25/20 09/08/20 Unknown History oxycodone 10 mg PO Q6H PRN 04/26/20 09/08/20 Unknown History omeprazole 40 mg capsule,delayed 40 mg PO BID 05/10/20 09/08/20 Unknown History release divalproex 250 mg PO BEDTIME 09/08/20 09/08/20 Unknown History Exam Exam Date and Time: September 13, 2020 0847 Height,Weight and Vital Signs: Height 5 ft 11 in Weight 92.079 kg Narrative Narrative: Per cardiac consult 04/2020 (admit for syncope): Cardiac troponins appear to be within normal limits. EKG shows sinus rhythm; 63/Min; cannot exclude old inferior infarct but otherwise no acute ischemic changes. Brain CT shows occipital lobe hyperdensity in the right side. Echocardiogram from [facility] in January shows LVEF 60-65% and otherwise unremarkable. Cardiac catheterization from 01/2020 shows patent stents in the RCA/RPDA; unchanged lesions in RPLV, D1, distal LAD; moderate mid LAD stenosis and overall findings similar to prior cardiac catheterization. Pacer Interrogation 08/2020 on chart: Battery life >5years; normal lead parameters; AP 40 %; EQUIPMENT SERVICE TECHNICIAN <1 %; no significant arrhythmias; ventricular noise +; otherwise, normal device function. Documented by User: Harry Salvador 09/14/20 08:45 [facility] Past Medical History Medical History (Updated 09/13/20 @ 09:03 by Fern Herndon) Atherosclerotic cardiovascular disease Brain bleed Brain lesion CAD (coronary artery disease) Cholecystectomy planned COVID-19 vaccine administered Esophagitis Essential hypertension GERD (gastroesophageal reflux disease) Headache Hip replacement planned HTN (hypertension) Hypotension Myocardial infarction Pacemaker Psychotic disorder Screening for colon cancer Seizures Syncope Tremor Surgical History Surgical History History of appendectomy History of esophagogastroduodenoscopy (EGD) Knee joint replacement by other means Stented coronary artery Social History Social History Household Members: None Housing: House Are you a primary caretaker grounds to a significant other at home: No Do you presently have visiting nurse or other home services: No Alcohol intake: former Smoking Status: Current every day smoker Packs Per Day: 6 Cigarettes Per Day: 120.0 Years Smoked: 25 Use of substances other than those prescribed or required for medical reasons: No Have you been hit, kicked, punched, or otherwise hurt by someone within the past year? If so, by whom?: No Advance Directives Information Provided: No Recently lost weight without trying: No service: No Current occupational status: employed Meds Allergies Allergy/AdvReac Type Severity Reaction Status Date / Time bee pollen [BEE STINGS] Allergy Severe ANAPHYLAXIS Verified 03/13/20 12:02 indomethacin [Indocin] Allergy Severe anaphylaxis Verified 05/09/20 13:34 tramadol [Ultram] Allergy Severe anaphylaxis Verified 05/09/20 13:34 Home Medications Medication Instructions Recorded Confirmed Last Taken Type amlodipine 10 mg PO QAM 04/25/20 09/08/20 Unknown History aspirin 81 mg PO QAM 04/25/20 09/08/20 Unknown History bupropion HCl 150 mg PO BID 04/25/20 09/08/20 Unknown History lisinopril 10 mg PO BID 04/25/20 09/08/20 Unknown History metoprolol tartrate 50 mg PO BID 04/25/20 09/08/20 Unknown History rosuvastatin 40 mg PO DAILY 04/25/20 09/08/20 Unknown History oxycodone 10 mg PO Q6H PRN 04/26/20 09/08/20 Unknown History omeprazole 40 mg capsule,delayed 40 mg PO BID 05/10/20 09/08/20 Unknown History release divalproex 250 mg PO BEDTIME 09/08/20 09/08/20 Unknown History Exam Airway Mallampati Class: III TM Dist: >3cm Neck ROM: Full Partial: Upper Loose/Missing/Broken Teeth: Yes Heart: [id number], paced Lungs: cta b/l Assessment and Plan Assessment Anesthesia Assessment: Anesthesia Plan Discussed, PAT Visit and Chart Reviewed Final Anesthetic Review NPO: Yes ASA Class: III Final Preanesthetic Review: No Changes in Pt Med Stat, Meds/Allgs Chart Reviewed, Consent Obtained/Reviewed and Anes Risks/Benef Reviewed Patient Risk: Intermediate Procedure Risk: Low Assessment/Block/Sedation in SS: Assess/Block/Sedation-SS Anesthetic Plan Anesthetic Plan: MAC: and Agree w/ Assess. and Plan Disposition: Standard PACU
[2020-09-14 08:02] VITALS: BP 155/96; PULSE 60; RESP 20; TEMP 36.6; O2SAT 98
--- NOTE | 2020-09-14 08:53 | MHC.SHP ---
Pre-Procedural Eval Section B Chief Complaint: gerd, screening Details of Present Illness: Erosive esophagitis, colon cancer screening New onset seizure disorder--Right occipital cavernous angioma. Relevant Family History (Specify if Yes): No Relevant Social History: None Present Medications: see Short Stay Collaborative assessment Medical History: Significant History (CAD,cerebral angioma, GERD-s/p GI Bleed, pacemaker) History of Previous Operations: Relevant previous surgery/procedure and date(s) (EGD--EROSIVE ESOPHATIS-2019.) Allergies: Allergies Allergy/AdvReac Type Severity Reaction Status Date / Time bee pollen [BEE STINGS] Allergy Severe ANAPHYLAXIS Verified 03/13/20 12:02 indomethacin [Indocin] Allergy Severe anaphylaxis Verified 05/09/20 13:34 tramadol [Ultram] Allergy Severe anaphylaxis Verified 05/09/20 13:34 Review of Systems Sugical H&P ROS: Negative: Constitution, Respiratory, Allergic/Immunologic, Gastrointestinal, Musculoskeletal and Endocrine and Yes, Specify: Cardiovascular (CAD/PACEMAKER) and Neurological (SEIZURE/HEADACHE, OCCIPITAL LESION) Exam Surgical H&P Exam: Normal: HEENT, Normal: Heart, Normal: Lungs, Normal: Extremities, Normal: Abdomen and Normal: Skin and Significant Findings: Neurological (TREMOR) Plan Diagnosis/Plan: Change I have reviewed the history and physical and performed a pertinent physical examination on my patient. No changes have occurred unless specified.YES
[2020-09-14 09:41] VITALS: BP 105/50; PULSE 64; RESP 20; TEMP 36.3; O2SAT 98
--- NOTE | 2020-09-14 09:54 | PM.OP ---
Brief Operative Note Date of Service: 09/14/20 Pre-op diagnosis: Hx severe Erosive esophagitis, GERD; Colon cancer screening. Post-op diagnosis: other (Inflamation @GE jn, small hh. Superficial gastritis, duodenitis-moderate;;Diminutive polyp cecal) Procedure: EGD w/ bx, colonoscopy with excisional polypectomy with cold bx forceps. Implants: NONE Surgeon: Ct Ames MD Anesthesia: MAC (Marc Jackson MD) Estimated blood loss (mL): 10 Pathology: other (Random gastric, colon polyp) Condition: stable Disposition: PACU
[2020-09-14 09:55] VITALS: BP 125/79; PULSE 60; RESP 16; TEMP 36.3; O2SAT 98
--- NOTE | 2020-09-14 10:06 | W.PM.OPN ---
Operative Note Operative Note Date of Service: 09/14/20 Narrative: Pre-op diagnosis: Hx severe Erosive esophagitis, GERD; Colon cancer screening. Post-op diagnosis: Inflamation @GE jn, small hh. Superficial gastritis, duodenitis-moderate;;Diminutive polyp cecal. Procedure: EGD w/ bx, colonoscopy with excisional polypectomy with cold bx forceps. Implants: NONE Surgeon: Ct Ames MD Anesthesia: MAC (Marc Jackson MD) FINDINGS: EGD:ESOPH--NORMAL MUCOSA, NO SCARRING INFLAMATION NOTED @ GE [id number], ?Small Hiatal Hernia Gastric: Diffuse erythema Fundus to antrum.(BX) Duod Bulb, Duodenum-submucosal erythema-bulb and streaking into second duodenum. COLONOSCOPY: EDILSON: Prostate normal, No sphincter tone. Adult slim colonoscope was introduced with no difficulty. Navigated through mildly compacted rectosigmoid, descending, tranverse ascending colon into cecum, Flushed with >500cc of sterile water to remove residual sticky mucoid bilious coating. Appendiceal orifice, ileocecal valve well seen. Small polyp was identified and removed excisionally with cold bx forceps from the cecum. No additional mucosal lesions identified. CO2 insufflation was switched to air @ several locations to improve distention and visibility. ARV : normal Estimated blood loss (mL): 10 Pathology: EGD:Random gastric, COLO: colon polyp-cecum Condition: stable Disposition: PACU PLAN: RECALL 5 YEAR COLO REVIEW GERD SX AND MANAGEMENT IN 6 WEEKS--OV OR TELE
== END 2020-09-14 11:28 | disposition home or self-care (01) ==
PROVIDERS: PCP Internal Medicine Geriatric Medicine; Visit Provider Internal Medicine Gastroenterology
PROC: (CPT 45380; principal; 2020-09-14 08:30)
DX: Z12.11 Encounter for screening for malignant neoplasm of colon (principal); D12.0 Benign neoplasm of cecum; K21.00 Gastro-esophageal reflux disease with esophagitis, without bleeding; K29.30 Chronic superficial gastritis without bleeding; K29.80 Duodenitis without bleeding; K44.9 Diaphragmatic hernia without obstruction or gangrene; I10 Essential (primary) hypertension; I25.10 Atherosclerotic heart disease of native coronary artery without angina pectoris; D18.02 Hemangioma of intracranial structures; F17.200 Nicotine dependence, unspecified, uncomplicated; Z79.82 Long term (current) use of aspirin; Z79.891 Long term (current) use of opiate analgesic; Z79.899 Other long term (current) drug therapy; I25.2 Old myocardial infarction; Z95.0 Presence of cardiac pacemaker; Z95.5 Presence of coronary angioplasty implant and graft; Z88.6 Allergy status to analgesic agent
CPT/HCPCS: 45380; 43239; 88305; 88342; J3010

== ENCOUNTER → 2020-10-02 10:03 | Outpatient (BNVA) | payer MEDICARE, MEDICAID, SELFPAY | PROVIDERS: PCP Internal Medicine Geriatric Medicine; Referring Provider Internal Medicine Geriatric Medicine; Visit Provider Internal Medicine Gastroenterology | CPT/HCPCS: Q3014 ==

== ENCOUNTER → 2020-10-24 12:09 | Outpatient (BNVA) | payer MEDICARE, MEDICAID, SELFPAY | PROVIDERS: PCP Internal Medicine Geriatric Medicine; Referring Provider Internal Medicine Geriatric Medicine; Visit Provider Internal Medicine | DX: I25.10 Atherosclerotic heart disease of native coronary artery without angina pectoris (principal); I10 Essential (primary) hypertension; I49.5 Sick sinus syndrome | CPT/HCPCS: 93005; 99212 ==

== ENCOUNTER 2020-11-29 08:53 | Outpatient (REF) | payer MEDICARE, MEDICAID, SELFPAY ==
--- NOTE | ~2020-11-29 | XR_ITS ---
EXAMINATION: XR ANKLE, LEFT XR FOOT, LEFT CLINICAL INFORMATION: Pain in the left ankle and left foot. COMPARISON: No direct priors. Correlation made with contralateral right ankle radiographs dated 10/18/2019. TECHNIQUE: 3 views of the left ankle and 3 views of the left foot. FINDINGS: ANKLE: The bones are normal in appearance. No evidence of fracture. Alignment is anatomic with normal joint spaces. The ankle mortise is congruent. No tibiotalar joint effusion is visualized. The Achilles tendon is thickened and contains multiple speckled radiodensities within, possibly reflecting developing ossification/calcification. FOOT: The bones are unremarkable. No evidence of fracture. Alignment is anatomic. The joint spaces are relatively well maintained. The soft tissues are unremarkable. XR/XR foot LT min 3V IMPRESSION: Ankle: Abnormal thickening of the Achilles tendon with developing ossification/calcification. Otherwise, unremarkable. Foot: Unremarkable examination.
--- NOTE | ~2020-11-29 | XR_ITS ---
EXAMINATION: XR ANKLE, LEFT XR FOOT, LEFT CLINICAL INFORMATION: Pain in the left ankle and left foot. COMPARISON: No direct priors. Correlation made with contralateral right ankle radiographs dated 10/18/2019. TECHNIQUE: 3 views of the left ankle and 3 views of the left foot. FINDINGS: ANKLE: The bones are normal in appearance. No evidence of fracture. Alignment is anatomic with normal joint spaces. The ankle mortise is congruent. No tibiotalar joint effusion is visualized. The Achilles tendon is thickened and contains multiple speckled radiodensities within, possibly reflecting developing ossification/calcification. FOOT: The bones are unremarkable. No evidence of fracture. Alignment is anatomic. The joint spaces are relatively well maintained. The soft tissues are unremarkable. XR/XR ankle LT 2V IMPRESSION: Ankle: Abnormal thickening of the Achilles tendon with developing ossification/calcification. Otherwise, unremarkable. Foot: Unremarkable examination.
== END 2020-11-29 08:54 | disposition home or self-care (01) ==
LOC: HO.XRAY 08:53
PROVIDERS: Absent Provider Internal Medicine Geriatric Medicine; PCP Internal Medicine Geriatric Medicine; Visit Provider Emergency Medicine
DX: M25.572 Pain in left ankle and joints of left foot (principal); M79.672 Pain in left foot
CPT/HCPCS: 73600; 73630

== ENCOUNTER 2020-12-14 16:50 | Emergency (ER) | payer MEDICARE, MEDICAID, SELFPAY ==
--- NOTE | ~2020-12-14 | US_ITS ---
EXAMINATION: US VENOUS ULTRASOUND WITH DOPPLER LOWER EXTREMITY, LEFT CLINICAL INFORMATION: Left leg swelling COMPARISON: 11/19/2015 TECHNIQUE: Ultrasound of the deep veins is performed from the hip to the calf with compression sonography and color and pulse Doppler assessment. Spectral analysis with color-flow imaging is performed. 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 There is no significant popliteal fossa cyst. US/US venous duplex LE LT IMPRESSION: No acute DVT demonstrated in the left lower extremity. Stable appearance of the chronic recanalized thrombus within the profunda femoral vein.
[2020-12-14 17:03] VITALS: BP 137/77; PULSE 69; RESP 16; TEMP 36.5; O2SAT 96; BMI 29.9
[2020-12-14 18:00] VITALS: BP 118/68; PULSE 63; RESP 16; TEMP 36.6; O2SAT 99
[2020-12-14 20:00] VITALS: BP 141/79; PULSE 61; RESP 18; O2SAT 98
--- NOTE | 2020-12-14 20:51 | PHA.MEDREC ---
Pharmacy Consult ? Medication Reconciliation Pharmacy has completed the medication reconciliation. Patient was on a topiramate titration (see external claim history) and due to ADRS, has stopped taking the medication. Keppra was increased to 750mg BID on 12/14/20 from 500mg BID. Thanks Giovanni
--- NOTE | 2020-12-14 21:10 | ED_ITS ---
HPI - Extremity Problem General Chief complaint: Extremity Problem Stated complaint: possible blood clot Time Seen by Provider: 12/14/20 18:17 Source: patient Mode of arrival: ambulatory Limitations: no limitations History of Present Illness HPI Narrative: 65-year-old male who presents emergency department for evaluation of left lower extremity pain and swelling x3 weeks. Patient states that 3 weeks prior he developed pain in his left lower extremity in the ankle and Achilles tendon area. He states that he was diagnosed with gout. He states he has continued to have pain in the ankle and Achilles tendon region. The pain is a constant, sharp pain which is 10/10 at its worst. The pain is worse if he puts any pressure on the Achilles tendon region of his calf. He states that he has also now developed swelling of his foot, ankle and calf to just below the knee. States the swelling developed over the past 4 days. 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 The patient spoke to his PCP and was advised to go to the emergency department to be evaluated for possible DVT. The patient denied fever, chills, cough, chest pain, shortness of breath, for dyspnea on exertion. Related Data Home Medications Medication Instructions Recorded Confirmed amlodipine 10 mg PO DAILY 04/25/20 12/14/20 aspirin 81 mg PO DAILY 04/25/20 12/14/20 rosuvastatin 40 mg PO BEDTIME 04/25/20 12/14/20 oxycodone 10 mg PO Q4H PRN 04/26/20 12/14/20 divalproex 250 mg PO BEDTIME 09/08/20 12/14/20 ezetimibe 10 mg tablet 10 mg PO DAILY 10/24/20 12/14/20 lisinopril 10 mg tablet 10 mg PO DAILY 10/24/20 12/14/20 multivitamin 1 tab PO DAILY 10/24/20 12/14/20 pantoprazole 40 mg tablet,delayed 40 mg PO DAILY 10/24/20 12/14/20 release ranolazine 1,000 mg 1,000 mg PO BID 10/24/20 12/14/20 tablet,extended release,12 hr levetiracetam 1 tab PO BID 12/14/20 12/14/20 nicotine 14 mg TOPICAL DAILY 12/14/20 12/14/20 nicotine (polacrilex) 2 - 4 mg PO Q1-2H PRN 12/14/20 12/14/20 Previous Rx's Medication Instructions Recorded nitroglycerin 0.4 mg sublingual 0.4 mg SUBLINGUAL Q5M PRN #30 tab 10/23/20 tablet metoprolol tartrate 50 mg tablet 75 mg PO BID 90 Days #270 tab 10/24/20 Allergies Allergy/AdvReac Type Severity Reaction Status Date / Time bee pollen [BEE STINGS] Allergy Severe ANAPHYLAXIS Verified 10/24/20 12:27 indomethacin [Indocin] Allergy Severe anaphylaxis Verified 10/24/20 12:27 tramadol [Ultram] Allergy Severe anaphylaxis Verified 10/24/20 12:27 Review of Systems Review of Systems: Yes all other systems are reviewed and are negative [facility] Past Medical History Medical History Atherosclerotic cardiovascular disease Brain bleed Brain lesion CAD (coronary artery disease) Cholecystectomy planned COVID-19 vaccine administered Esophagitis Essential hypertension Essential hypertension GERD (gastroesophageal reflux disease) Headache Hip replacement planned HTN (hypertension) Hypotension Myocardial infarction Pacemaker Psychotic disorder Screening for colon cancer Seizures Syncope Tremor Tubular adenoma of colon Surgical History History of appendectomy History of cardiac catheterization History of esophagogastroduodenoscopy (EGD) History of permanent cardiac pacemaker placement (~06/01/13) Knee joint replacement by other means Stented coronary artery Family History Family History Father Heavy cigarette smoker Throat cancer Mother Heart disease Social History Social History Household Members: None Household Members Other:: friend staying with him--daughter willing to help out Housing: House Are you a primary wound care center consultant to a significant other at home: No Do you presently have visiting nurse or other home services: No Alcohol intake: never Patient Tobacco Use Status: Current everyday Tobacco user Cigarettes Per Day: 4 Years Smoked: 25 Use of substances other than those prescribed or required for medical reasons: No Advance Directives: No Advance Directives Information Provided: Yes service: No Current occupational status: retired Physical Exam Vital Signs: Vital Signs: Last Vital Signs Temp 97.9 F 12/14/20 18:00 Pulse 61 12/14/20 20:00 Resp 18 12/14/20 20:00 BP 141/79 H 12/14/20 20:00 Pulse Ox 98 12/14/20 20:00 Body Mass Index 29.9 Const: General: cooperative and healthy appearing Orientation/consciousness: oriented to person and oriented to place L imitations: no limitations HENMT: Head: Yes normal to inspection, Yes normocephalic and Yes atraumatic Ears: external ears normal General nose exam: Normal external nose present Face and sinus: Yes normal facial exam Mouth: Normal oral and palatal mucosa present Throat: Yes posterior oropharynx normal Eyes: Periorbital: periorbital findings normal Eyelids: Yes eyelids normal Conjunctivae: conjunctivae normal Sclerae: sclerae normal Corneas: corneas normal Pupils: Equal, round and reactive pupils present Direct Ophthalmoscopy: normal light reflex Neck: Neck: Yes full ROM, Yes no lymphadenopathy, Yes no meningeal signs, Yes trachea midline and Yes supple Chest: Chest palpation & inspection: normal inspection of the chest and normal palpation of entire chest wall Resp: Effort & Inspection: normal respiratory effort and able to speak in complete sentences Auscultation: clear to auscultation bilaterally Cardio: Rate: regular rate Rhythm: regular rhythm Heart sounds: S1 normal heart sound present, S2 normal heart sound present and no murmurs GI: Inspection: Yes normal to inspection Palpation (GI): Soft to palpation, nontender, no guarding, not rigid and No hepatosplenomegaly present : General: Yes no CVA tenderness Back/Spine/Pelvis: Back: no CVA tenderness Cervical Spine: normal cervical lordosis Thoracic/Lumbar Spine: thoracic and lumbar spine normal to inspection Skin: Lesions: no lesions Rashes: no rashes Wounds: no wounds Neuro: General: oriented to person, oriented to place and no meningeal signs Cranial nerves: Yes CN's II-XII intact bilaterally and Yes Equal, round and reactive pupils present Cognition (Neuro): normal cognition Motor exam (neuro): 5/5 motor strength present throughout Extrem: Other: The patient's left lower extremity from the foot to just below the knee appears larger than the right, the patient has no tenderness with palpation over the MTP joints, he does have tenderness with palpation over the heel Achilles tendon and posterior calf. His extremity is neurovascularly intact. Psych: Appearance: well kempt Mental Status: mental status grossly normal Speech and movement: Normal speech and movement present Affect: normal affect Attitude: cooperative Thought process: Normal thought process present Thought content: Normal thought content present Course Course Course Narrative: 65-year-old male who presents emergency department for evaluation of 3 weeks of pain and swelling of his left lower extremity, with the swelling getting worse over the past 4 days. Patient does have a remote history of a DVT in this extremity. A Doppler ultrasound was obtained and there is no evidence of an acute DVT, patient does have evidence of an old DVT. I did discuss this finding with the patient. The patient will need a repeat Doppler ultrasound of his left lower extremity in 4-7 days to rule out the p ossibility a calf vein thrombosis propagation. if this repeat study is negative then patient most likely has an Achilles tendon/posterior gastrocnemius muscle injury and he will need to follow-up with his orthopedic surgeon. Discharge Plan Discharge Clinical Impression: Left leg swelling, Acute pain of left lower extremity Additional Instructions: The duplex ultrasound of your left lower extremity did not reveal any new clot to explain your symptoms. There is evidence of an old blood clot but this is not causing your problem. The duplex ultrasound is limited in finding a blood clot from the ankle to the knee. Therefore you need a repeat duplex ultrasound of your left lower extremity in 4-7 days to rule out the possibility of a calf blood clot expanding in to your thigh (clot propagation). You should call your PCP tomorrow to set up this outpatient duplex ultrasound of your left lower extremity within 4-7 days. If your 2nd duplex ultrasound is negative, then your pain is most likely secondary to an injury to your Achilles tendon or you calf muscle (gastrocnemius injury). Follow-up with your doctor in 2 days. Please return to the emergency department if your symptoms get worse or if you develop any symptoms that are concerning to you. Prescriptions: No Action nitroglycerin 0.4 mg tablet, sublingual 0.4 mg sublingual Q5M PRN (Reason: chest pain) Qty: 30 RF: 6 aspirin 81 mg tablet,delayed release (DR/EC) 81 mg PO DAILY RF: 0 amlodipine 10 mg tablet 10 mg PO DAILY RF: 0 rosuvastatin 40 mg tablet 40 mg PO BEDTIME RF: 0 oxycodone 10 mg Tablet 10 mg PO Q4H PRN (Reason: Moderate Pain (Scale Score 5-6)) RF: 0 divalproex 250 mg tablet extended release 24 hr 250 mg PO BEDTIME RF: 0 nicotine 14 mg/24 hr patch 24 hour 14 mg topical DAILY RF: 0 nicotine (polacrilex) 2 mg lozenge 2 - 4 mg PO Q1-2H PRN (Reason: Smoking Cessation) RF: 0 levetiracetam 750 mg tablet 1 tab PO BID RF: 0 ezetimibe 10 mg tablet 10 mg PO DAILY RF: 0 multivitamin Tablet 1 tab PO DAILY RF: 0 ranolazine 1,000 mg tablet extended release 12 hr 1,000 mg PO BID RF: 0 lisinopril 10 mg tablet 10 mg PO DAILY RF: 0 pantoprazole 40 mg tablet,delayed release (DR/EC) 40 mg PO DAILY RF: 0 metoprolol tartrate 50 mg tablet 75 mg PO BID 90 Days Qty: 270 RF: 4
== END 2020-12-14 21:40 | disposition home or self-care (01) ==
PROVIDERS: Emergency Provider Emergency Medicine Emergency Medical Services; PCP Internal Medicine Geriatric Medicine
DX: M79.605 Pain in left leg (principal); M79.89 Other specified soft tissue disorders; I10 Essential (primary) hypertension; Z86.718 Personal history of other venous thrombosis and embolism; I25.2 Old myocardial infarction; Z79.82 Long term (current) use of aspirin; Z79.899 Other long term (current) drug therapy; Z95.0 Presence of cardiac pacemaker
CPT/HCPCS: 93971; 99284

== ENCOUNTER 2020-12-15 14:15 | Outpatient (REF) | payer MEDICARE, MEDICAID, SELFPAY ==
--- NOTE | ~2020-12-15 | US_ITS ---
EXAMINATION: US VENOUS ULTRASOUND WITH DOPPLER LOWER EXTREMITY, LEFT CLINICAL INFORMATION: Pain COMPARISON: Previous exams most recent from yesterday and November 2015 TECHNIQUE: Ultrasound of the deep veins is performed from the hip to the calf with compression sonography and color and pulse Doppler assessment. Spectral analysis with color-flow imaging is performed. FINDINGS: There is no change in the probable chronic nonocclusive thrombus in the profunda femoral vein. The common femoral, superficial femoral, popliteal and posterior tibial and peroneal veins are patent. No evidence of acute DVT is seen. There is no Cano's cyst. US/US venous duplex LE LT IMPRESSION: No acute DVT demonstrated in the left lower extremity. Stable appearance to the probable chronic thrombus in the profunda femoral vein.
== END 2020-12-15 14:16 | disposition home or self-care (01) ==
LOC: HO.US 14:15
PROVIDERS: PCP Internal Medicine Geriatric Medicine; Referring Provider Internal Medicine Geriatric Medicine; Visit Provider Nurse Practitioner Family
DX: M79.605 Pain in left leg (principal); M79.672 Pain in left foot
CPT/HCPCS: 93971

== ENCOUNTER 2020-12-16 10:23 | Inpatient (IN) | payer MEDICARE, MEDICAID, SELFPAY ==
[2020-12-16] VITALS (7 sets, daily range): BP systolic 128–167; BP diastolic 67–81; PULSE 59–72; RESP 15–20; TEMP 36–36.8; O2SAT 95–98; BMI 29.2; BMI 29.7
--- NOTE | ~2020-12-16 | US_ITS ---
EXAMINATION: US VENOUS ULTRASOUND WITH DOPPLER LOWER EXTREMITY, BILATERAL CLINICAL INFORMATION: Swelling COMPARISON: 10/18/2019 ultrasound right lower extremity. 11/19/2015 ultrasound left lower extremity. TECHNIQUE: Ultrasound of the deep veins is performed from the hip to the calf with compression sonography and color and pulse Doppler assessment. Spectral analysis with color-flow imaging is performed. Telephone call to performing caterer's aide, images and real-time findings were reviewed. FINDINGS: RIGHT: There is normal venous compression and respiratory variation and augmented flow. The visualized common femoral vein, superficial femoral vein, profunda femoral vein, popliteal vein, and the trifurcation region shows no evidence of deep venous thrombosis. There is no significant popliteal fossa cyst. LEFT: The midportion of the posterior tibial vein does not compress, with no flow seen on the color Doppler imaging, suggestive of an acute thrombus. The proximal portion of the posterior tibial vein is not well visualized. The remainder of the deep venous system, the common femoral vein, superficial femoral vein, profunda femoral vein and popliteal veins show no evidence of deep vein thrombosis. There is normal flow in the peroneal veins, appearing patent. There is no significant popliteal fossa cyst. US/US venous duplex LE BI IMPRESSION: LEFT LOWER EXTREMITY: Study POSITIVE for deep vein thrombosis. There is a thrombosis in the midportion of the posterior tibial vein. This is not clearly visualized on the recent prior studies, and appears acute. A short-term followup ultrasound can be obtained for reassessment as clinically warranted. RIGHT LOWER EXTREMITY: No DVT demonstrated in the right lower extremity. If the patient's symptoms persist, followup ultrasound in 5 days 7 days might be of value to exclude proximal propagation from a non-visualized calf vein. This critical result was discussed with Dr. Hodge at 12:45 PM on 12/16/2020 and it was ascertained that the content and urgency of the report was understood at the time of direct communication.
--- NOTE | ~2020-12-16 | XR_ITS ---
EXAMINATION: XR CHEST CLINICAL INFORMATION: Edema rule out CHF COMPARISON: 04/25/2020 TECHNIQUE: Frontal view of the chest was obtained. FINDINGS: Linear atelectasis/scarring at the left lung base peripherally, unchanged. No consolidation, edema, or effusion. Stable cardiomediastinal silhouette. XR/XR chest 1V IMPRESSION: No acute cardiopulmonary findings.
--- NOTE | 2020-12-16 10:55 | PC.NURSE ---
Pt's lower extremities are edematous L>R. Unable to palpate bilateral pedal pulses r/t pain with firm palpation. Pedal pulses easily obtainable with use of doppler.
--- NOTE | 2020-12-16 10:56 | ED.GENADULT ---
HPI - General Adult General Chief complaint: General Medical Stated complaint: BOTH LEGS PAIN SWELLING Time Seen by Provider: 12/16/20 10:54 Source: patient Mode of arrival: ambulatory Limitations: no limitations History of Present Illness HPI narrative: 65-year-old male came in for evaluation of right lower leg pain, and chronic left lower leg pain. 65-year-old male this been having left leg swelling for the past few weeks patient had outpatient ultrasound of left leg which showed chronic DVT that is not occlusive with good recanalization of the thrombus, patient today started to have right leg pain and swelling, declined any trauma or fall or injury to the right leg, patient also declined any shortness of breath or orthopnea or paroxysmal nocturnal dyspnea. Related Data Home Medications Medication Instructions Recorded Confirmed amlodipine 10 mg PO DAILY 04/25/20 12/14/20 aspirin 81 mg PO DAILY 04/25/20 12/14/20 rosuvastatin 40 mg PO BEDTIME 04/25/20 12/14/20 oxycodone 10 mg PO Q4H PRN 04/26/20 12/14/20 divalproex 250 mg PO BEDTIME 09/08/20 12/14/20 ezetimibe 10 mg tablet 10 mg PO DAILY 10/24/20 12/14/20 lisinopril 10 mg tablet 10 mg PO DAILY 10/24/20 12/14/20 multivitamin 1 tab PO DAILY 10/24/20 12/14/20 pantoprazole 40 mg tablet,delayed 40 mg PO DAILY 10/24/20 12/14/20 release ranolazine 1,000 mg 1,000 mg PO BID 10/24/20 12/14/20 tablet,extended release,12 hr levetiracetam 1 tab PO BID 12/14/20 12/14/20 nicotine 14 mg TOPICAL DAILY 12/14/20 12/14/20 nicotine (polacrilex) 2 - 4 mg PO Q1-2H PRN 12/14/20 12/14/20 Previous Rx's Medication Instructions Recorded nitroglycerin 0.4 mg sublingual 0.4 mg SUBLINGUAL Q5M PRN #30 tab 10/23/20 tablet metoprolol tartrate 50 mg tablet 75 mg PO BID 90 Days #270 tab 10/24/20 Allergies Allergy/AdvReac Type Severity Reaction Status Date / Time bee pollen [BEE STINGS] Allergy Severe ANAPHYLAXIS Verified 10/24/20 12:27 indomethacin [Indocin] Allergy Severe anaphylaxis Verified 10/24/20 12:27 tramadol [Ultram] Allergy Severe anaphylaxis Verified 10/24/20 12:27 Review of Systems Review of Systems: All other systems are reviewed and are negative Constitutional: Reports as per HPI and Reports no additional constitutional complaints Eyes: Reports as per HPI and Reports no additional eye complaints Reports system reviewed and no additional complaints, except as documented Cardiovascular: Reports as per HPI and Reports no additional cardiovascular complaints Respiratory: Reports as per HPI and Reports no additional respiratory complaints Gastrointestinal: Reports as per HPI and Reports no additional gastrointestinal complaints Genitourinary: Reports no additional female genitourinary complaints Musculoskeletal: Reports no additional musculoskeletal complaints Skin/Breast: Reports system reviewed and no additional complaints, except as docu Psychiatric: Reports no additional psychiatric complaints Endocrine: Reports no additional endocrine complaints Hematologic/Lymphatic: Reports no additional hematologic/lymphatic complaints Allergic/Immunologic: Reports no additional allergic/immunologic complaints Reports system reviewed and no additional complaints, except as documented and Reports Abnormal speech present [facility] Past Medical History Medical History Atherosclerotic cardiovascular disease Brain bleed Brain lesion CAD (coronary artery disease) Cholecystectomy planned COVID-19 vaccine administered Esophagitis Essential hypertension Essential hypertension GERD (gastroesophageal reflux disease) Headache Hip replacement planned HTN (hypertension) Hypotension Myocardial infarction Pacemaker Psychotic disorder Screening for colon cancer Seizures Syncope Tremor Tubular adenoma of colon Surgical History History of appendectomy History of cardiac catheterization History of esophagogastroduodenoscopy (EGD) History of permanent cardiac pacemaker placement (~06/01/13) Knee joint replacement by other means Stented coronary artery Family History Family History Father Heavy cigarette smoker Throat cancer Mother Heart disease Social History Social History Household Members: None Household Members Other:: friend staying with him--daughter willing to help out Housing: House Are you a primary career information specialist to a significant other at home: No Do you presently have visiting nurse or other home services: No Alcohol intake: never Patient Tobacco Use Status: Current everyday Tobacco user Cigarettes Per Day: 4 Years Smoked: 25 Smoked in Last 30 Days: Yes Use of substances other than those prescribed or required for medical reasons: No Advance Directives: Yes Advance Directives Information Provided: Yes Advance Directives on File: No service: No Current occupational status: retired Physical Exam Vital Signs: Vital Signs: Last Vital Signs Temp 97.9 F 12/16/20 14:24 Pulse 62 12/16/20 14:24 Resp 15 12/16/20 14:24 BP 156/81 H 12/16/20 14:24 Pulse Ox 97 12/16/20 14:24 Body Mass Index 29.2 Vital signs have been reviewed as appeared to be correct. Blood pressure normal. Heart rate normal. Respiration rate normal. Temperature normal. Oxygen saturation normal. Appearance: Alert. Oriented X3. No acute distress. Head: Normal external exam. Normocephalic. Atraumatic. No Segal signs noted. No raccoon eyes noted Eyes: PERRLA. EOMI. Conjunctiva and sclera normal. Eyelids normal. ENT: TM's Normal. Pharynx normal. Uvula midline. Moist mucous membranes. No trismus noted. No drooling noted. No muffled voice noted. Neck: Normal inspection. Neck supple. FROM. No adenopathy. Thyroid Normal. No meningeal signs. No neck mass noted. CVS: Normal heart rate and rhythm. Heart sound normal. No murmurs noted. Pulses normal throughout. Respiratory: No respiratory distress. Painless inspiration. Breath sounds normal. No wheezes/rales/rhonchi noted. Chest nontender. No accessory muscle usage noted or decreased air movement noted. Abdomen: Soft and nontender. Bowel sounds normal in all 4 quadrants. No distention noted. No organomegaly noted. No visible injury noted. Back: No CVA tenderness. Full range of motion noted. Skin: Skin warm and dry. Normal skin color. Normal skin turgor. No rashes/lesions/lacerations noted. Extremities: Bilateral lower extremity edema left worse than right. Extremities exhibit normal range of motion. Extremities nontender. Neuro: Oriented X 3. No motor deficit. No sensory deficit. Reflexes normal. Course Course Course Narrative: Patient with lower extremity swelling and chronic DVT came in with worsening of the pain in lower extremities. Ultrasound today showed acute DVT in left lower extremities (thrombus that was not seen on yesterday's ultrasound). Because patient has history of cerebral bleed cannot give a direct anticoagulation agent, the case discussed with Dr. Miranda who recommended the patient to be admitted, and be anticoagulated using heparin which is easy to revise if the patient starts show signs of intracranial bleed. Medical Decision Making Lab Data Lab results reviewed: Yes I reviewed the patient's lab results. Result diagrams: 12/16/20 11:08 12/16/20 11:08 Labs: Lab Results 12/16/20 12/16/20 12/16/20 Range/Units 11:08 11:08 11:08 WBC 7.9 (4.8-10.8) X10*3/uL RBC 4.07 L (4.60-5.80) X10*6/uL Hgb 12.6 L (14.0-18.0) g/dl Hct 36.6 L (42-52) % MCV 89.9 (80-98) fL MCH 31.0 (27.0-33.0) pg MCHC 34.4 (31.0-36.0) g/dl RDW 12.2 (11.0-16.0) % Plt Count 270 (160-400) X10*3/uL MPV 8.7 L (9.4-12.4) fL Immature Gran % (Auto) 0.5 H (0.0-0.4) % Neut % (Auto) 71.7 (45-73) % Lymph % (Auto) 15.2 L (20-40) % Gosper % (Auto) 7.7 (2-11) % Eos % (Auto) 4.3 H (0-4) % Baso % (Auto) 0.6 (0-2) % Lymph # (Auto) 1.2 (1.2-4.9) X10*3/uL Gosper # (Auto) 0.6 (0.1-1.2) X10*3/uL Eos # (Auto) 0.3 (0.0-0.4) X10*3/uL Baso # (Auto) 0.1 (0.0-0.2) X10*3/uL Abs Immat Gran (auto) 0.04 H (0.00-0.03) X10*3/uL Absolute Neuts (auto) 5.7 (2.0-8.3) X10*3/uL Absolute Nucleated RBC 0.000 (0.0-0.012) X10*3/uL Nucleated RBC % (auto) 0.0 (0.0-0.2) /100WBC PT (9.9-13.0) SEC INR (0.9-1.1) APTT (24.1-38.0) SEC D-Dimer NG/ML Sodium 139 (135-145) mmol/L Potassium 4.0 (3.3-5.1) mmol/L Chloride 105 (96-108) mmol/L Carbon Dioxide 24 (22-29) mmol/L Anion Gap 14 (12-20) BUN 10 (9-16) mg/dL Creatinine 0.84 (0.5-1.4) mg/dL Estim Creat Clear Calc 100.5 Estimated GFR > 60 Random Glucose 116 H (60-115) mg/dL Calcium 8.8 D (8.4-10.2) mg/dL Total Bilirubin 0.6 (0.0-1.0) mg/dL Direct Bilirubin 0.2 (0.0-0.5) mg/dL AST 14 D (5-37) U/L ALT 12 (0-40) U/L Alkaline Phosphatase 84 D (39-117) U/L B-Natriuretic Peptide (<100) pg/mL Total Protein 6.2 L (6.5-8.0) g/dL Albumin 3.8 (3.5-5.0) g/dL Lipase 14 (8-78) U/L 12/16/20 12/16/20 Range/Units 11:08 14:14 WBC (4.8-10.8) X10*3/uL RBC (4.60-5.80) X10*6/uL Hgb (14.0-18.0) g/dl Hct (42-52) % MCV (80-98) fL MCH (27.0-33.0) pg MCHC (31.0-36.0) g/dl RDW (11.0-16.0) % Plt Count (160-400) X10*3/uL MPV (9.4-12.4) fL Immature Gran % (Auto) (0.0-0.4) % Neut % (Auto) (45-73) % Lymph % (Auto) (20-40) % Gosper % (Auto) (2-11) % Eos % (Auto) (0-4) % Baso % (Auto) (0-2) % Lymph # (Auto) (1.2-4.9) X10*3/uL Gosper # (Auto) (0.1-1.2) X10*3/uL Eos # (Auto) (0.0-0.4) X10*3/uL Baso # (Auto) (0.0-0.2) X10*3/uL Abs Immat Gran (auto) (0.00-0.03) X10*3/uL Absolute Neuts (auto) (2.0-8.3) X10*3/uL Absolute Nucleated RBC (0.0-0.012) X10*3/uL Nucleated RBC % (auto) (0.0-0.2) /100WBC PT 11.4 (9.9-13.0) SEC INR 1.0 (0.9-1.1) APTT 38.5 H (24.1-38.0) SEC D-Dimer 485 NG/ML Sodium (135-145) mmol/L Potassium (3.3-5.1) mmol/L Chloride (96-108) mmol/L Carbon Dioxide (22-29) mmol/L Anion Gap (12-20) BUN (9-16) mg/dL Creatinine (0.5-1.4) mg/dL Estim Creat Clear Calc Estimated GFR Random Glucose (60-115) mg/dL Calcium (8.4-10.2) mg/dL Total Bilirubin (0.0-1.0) mg/dL Direct Bilirubin (0.0-0.5) mg/dL AST (5-37) U/L ALT (0-40) U/L Alkaline Phosphatase (39-117) U/L B-Natriuretic Peptide 81 (<100) pg/mL Total Protein (6.5-8.0) g/dL Albumin (3.5-5.0) g/dL Lipase (8-78) U/L Imaging Data Venous Doppler ultrasound lower extremities: Radiologist's impression: Study POSITIVE for deep vein thrombosis. There is a thrombosis in the midportion of the posterior tibial vein. This is not clearly visualized on the recent prior studies, and appears acute. A short-term followup ultrasound can be obtained for reassessment as clinically warranted. RIGHT LOWER EXTREMITY: No DVT demonstrated in the right lower extremity. If the patient's symptoms persist, followup ultrasound in 5 days 7 days might be of value to exclude proximal propagation from a non-visualized calf vein. Discharge Plan Discharge Clinical Impression: DVT (deep venous thrombosis) Patient Disposition: Admitted As Inpatient Instructions: Deep Vein Thrombosis (ED) Prescriptions: No Action nitroglycerin 0.4 mg tablet, sublingual 0.4 mg sublingual Q5M PRN (Reason: chest pain) Qty: 30 RF: 6 aspirin 81 mg tablet,delayed release (DR/EC) 81 mg PO DAILY RF: 0 amlodipine 10 mg tablet 10 mg PO DAILY RF: 0 rosuvastatin 40 mg tablet 40 mg PO BEDTIME RF: 0 oxycodone 10 mg Tablet 10 mg PO Q4H PRN (Reason: Moderate Pain (Scale Score 5-6)) RF: 0 divalproex 250 mg tablet extended release 24 hr 250 mg PO BEDTIME RF: 0 nicotine 14 mg/24 hr patch 24 hour 14 mg topical DAILY RF: 0 nicotine (polacrilex) 2 mg lozenge 2 - 4 mg PO Q1-2H PRN (Reason: Smoking Cessation) RF: 0 levetiracetam 750 mg tablet 1 tab PO BID RF: 0 ezetimibe 10 mg tablet 10 mg PO DAILY RF: 0 multivitamin Tablet 1 tab PO DAILY RF: 0 ranolazine 1,000 mg tablet extended release 12 hr 1,000 mg PO BID RF: 0 lisinopril 10 mg tablet 10 mg PO DAILY RF: 0 pantoprazole 40 mg tablet,delayed release (DR/EC) 40 mg PO DAILY RF: 0 metoprolol tartrate 50 mg tablet 75 mg PO BID 90 Days Qty: 270 RF: 4
[2020-12-16 11:14] LABS: Basophils Absolute Auto 0.1 X10*3/uL (0.0-0.2); Basophils Percent Auto 0.6 % (0-2); Eosinophils Absolute Auto 0.3 X10*3/uL (0.0-0.4); Eosinophils Percent Auto 4.3 % (0-4); Hematocrit 36.6 % (42-52); Hemoglobin 12.6 g/dl (14.0-18.0); Imm Gran Abs Auto 0.04 X10*3/uL (0.00-0.03); Imm Gran Pct Auto 0.5 % (0.0-0.4); Lymphocytes Absolute Auto 1.2 X10*3/uL (1.2-4.9); Lymphocytes Percent Auto 15.2 % (20-40); MANUAL DIFF FLAG NO; Mean Corpuscular HGB Conc 34.4 g/dl (31.0-36.0); Mean Corpuscular Volume 89.9 fL (80-98); Mean Platelet Volume 8.7 fL (9.4-12.4); Monocytes Absolute Auto 0.6 X10*3/uL (0.1-1.2); Monocytes Percent Auto 7.7 % (2-11); Neutrophils Absolute Auto 5.7 X10*3/uL (2.0-8.3); Neutrophils Percent Auto 71.7 % (45-73); Platelet Count 270 X10*3/uL (160-400); Red Blood Count 4.07 X10*6/uL (4.60-5.80); Red Cell Distribution Width 12.2 % (11.0-16.0); White Blood Count 7.9 X10*3/uL (4.8-10.8)
[2020-12-16 11:49] LABS: Anion Gap 14 (12-20); Blood Urea Nitrogen 10 mg/dL (9-16); Calcium 8.8 mg/dL (8.4-10.2); Carbon Dioxide 24 mmol/L (22-29); Chloride 105 mmol/L (96-108); Creatinine Clr Calc Pharmacy 100.5; Estimated Glomerular Filt Rate > 60; Glucose Random 116 mg/dL (60-115); Sodium 139 mmol/L (135-145)
[2020-12-16 11:50] LABS: Alanine Aminotransferase 12 U/L (0-40); Albumin Level 3.8 g/dL (3.5-5.0); Alkaline Phosphatase 84 U/L (39-117); Aspartate Amino Transferase 14 U/L (5-37); Bilirubin Direct 0.2 mg/dL (0.0-0.5); Bilirubin Total 0.6 mg/dL (0.0-1.0); Lipase 14 U/L (8-78); Total Protein 6.2 g/dL (6.5-8.0)
[2020-12-16 11:52] LABS: B Type Natriuretic Peptide 81 pg/mL (<100)
[2020-12-16] MEDS: oxyCODONE HCl Immed Release 5 MG TABLET PO ×2 (11:58→13:05)
[2020-12-16 14:25] LABS: Prothrombin Time 11.4 SEC (9.9-13.0)
[2020-12-16 14:28] LABS: D Dimer 485 NG/ML; Partial Thromboplastin Time 38.5 SEC (24.1-38.0)
[2020-12-16] MEDS: Heparin Sodium,Porcine/1/2NS 25,000 UNIT/250 ML IV.SOLN 11.43 UNIT IVCONT (17:06)
--- NOTE | 2020-12-16 17:11 | PC.NURSE ---
Heparin drip starte at 12u/kg/hr. PTT-HD ordered for 6hrs from start time.
[2020-12-16 18:31] LABS: Hematocrit 36.4 % (42-52); Hemoglobin 12.3 g/dl (14.0-18.0); Mean Corpuscular HGB Conc 33.8 g/dl (31.0-36.0); Mean Corpuscular Hemoglobin 30.8 pg (27.0-33.0); Mean Corpuscular Volume 91.2 fL (80-98); Mean Platelet Volume 8.9 fL (9.4-12.4); Platelet Count 272 X10*3/uL (160-400); Red Blood Count 3.99 X10*6/uL (4.60-5.80); Red Cell Distribution Width 12.2 % (11.0-16.0); White Blood Count 7.6 X10*3/uL (4.8-10.8)
[2020-12-16 18:39] LABS: Prothrombin Time 11.8 SEC (9.9-13.0)
[2020-12-16] MEDS: HYDROmorphone HCl 0.5 MG/0.5 ML SYRINGE 1 MG IVPUSH ×2 (18:40→22:23)
[2020-12-16 18:42] LABS: PTT Heparin Drip 55.6 SEC (53-77.9)
--- NOTE | 2020-12-16 18:50 | PC.NURSE ---
PRN dilauded given. Senond IV placed to right lower arm.
--- NOTE | 2020-12-16 19:04 | PC.NURSE ---
heparin 12 u/kg/h verified with katherine hutchins. at change of shift. with this rn caden mendoza
--- NOTE | 2020-12-16 20:28 | HP_ITS ---
DATE OF SERVICE: 12/16/2020 CHIEF COMPLAINT: Left leg pain. HISTORY OF PRESENTING ILLNESS: This is a 65-year-old gentleman with past medical history significant for hypertension, hyperlipidemia, coronary artery disease, status post stent and pacemaker placement, also history of chronic back pain on high-dose oxycodone. The patient also has a history of rt hand tremors,weakness and syncope with prior CT head in February 2020 concerning for small right occipital hemorrhage, but multiple follow-up CT head and CTA head and neck showed no evidence of occipital hemorrhage, but showed chronic hyper attenuating focus right occipital lobe, due to pacemaker an MRI study was not obtained. patient presented to [facility] today due to right leg swelling. The patient was seen at [facility] 2 days ago for left leg swelling ongoing for greater than 3 weeks associated with significant left leg pain for which the patient was recently treated with prednisone for concern for gout. However, symptoms did not improve; therefore, he was referred to [facility], where a venous Doppler study was obtained that showed no evidence of DVT in the left lower extremity,patient had a repeat study done on December 15 due to persistent left lower extremity pain and swelling,again repeat duplex study did not show a DVT. However, today bilateral lower extremity venous ultrasound was obtained and it showed that there was no DVT in the right lower extremity; however, it showed a DVT in the posterior tibial vein left lower extremity. Due to significant swelling and persistent pain, the patient is now being admitted to [facility] for anticoagulation, due to concern for questionable of prior right occipital hemorrhage, emergency room physician discussed the case with Dr. Miranda and he recommended the patient to be treated with IV heparin drip. PAST MEDICAL HISTORY: Significant for, 1. Atherosclerotic coronary artery disease, status post stent placement. 2. History of esophagitis. 3. Essential hypertension. 4. History of GERD. 5. History of psychotic disorder. 6. History of seizures. 7. History of syncope. 8. History of tremors. 9. History of tubular adenoma of colon. PAST SURGICAL HISTORY: 1. Status post cholecystectomy. 2. Status post pacemaker placement. 3. Status post hip replacement. 4. Status post appendectomy. 5. Status post coronary artery stent placement. FAMILY HISTORY: Father is , had throat cancer. Mother is , had heart disease. SOCIAL HISTORY: The patient lives alone. The patient currently smokes 4 cigarettes a day. Denies alcohol or illicit drug use. REVIEW OF SYSTEMS: DENITRATOR OPERATOR: He denies any headache. No lightheadedness or dizziness. CVS: No chest pain. No palpitation. RESPIRATORY: Denies shortness of breath. No PND. No orthopnea. : Denies urinary symptoms of urgency and frequency. MUSCULOSKELETAL: He complains of chronic back pain and now complains of severe left leg pain, constant achiness. PHYSICAL EXAMINATION: GENERAL: The patient is very frustrated, does not appear to be in acute distress. VITALS: BP 151/78 with a pulse of 67, respiratory rate 18, room air finger oximetry is 98%. HEENT: Pupils are equal, round, and reactive to light and accommodation. NECK: Supple. No JVD. LUNGS: Clear to auscultation bilaterally. HEART: Regular rate and rhythm. ABDOMEN: Soft, nontender. Bowel sounds are audible. EXTREMITIES: Right lower extremity, good peripheral pulses. Mild swelling around the ankles and no pitting edema noted. Left lower extremity, significant swelling of left calf. No redness noted. Good peripheral pulses. No pitting edema. SKIN: Without rashes. NEURO: Patient awake, alert to time, place, and person. PSYCH: Very frustrated, anxious. LABORATORY DATA: Showed a WBC 7.6, hemoglobin 12.3, hematocrit 36.4 with a platelet count of 272. Chem profile, sodium 139, potassium 4, bicarb of 24, creatinine of 0.84, blood sugar 116. IMAGING STUDIES: Chest x-ray showed no acute cardiopulmonary findings. Venous duplex study as mentioned earlier. D-dimer 485. ASSESSMENT AND PLAN: This is a 65-year-old gentleman with known history of coronary artery disease, status post stent placement, prior history of provoked deep vein thrombosis, presented to [facility] for several week history of left lower extremity swelling and pain, diagnosed to have acute left posterior tibial deep vein thrombosis. 1. Left posterior tibial deep vein thrombosis. The patient will be admitted to intermediate care unit due to concern of prior occipitall bleed, patient has been started on IV heparin drip, we will monitor PTT closely. In regard to pain, the patient has no relief with oxycodone 10 mg q.6 hours that he takes at home; therefore, will be placed on IV Dilaudid. We will discuss further management with Hematology. Since 2 recent head and neck CTA showed no evidence of prior hemorrhage, the patient can be transitioned to oral anticoagulant. 2. History of coronary artery disease. Currently, no chest pain. We will continue home medications. 3. History of hyperlipidemia. Continue Zetia and statins. 4. History of seizure disorder. will continue Depakote and seizure precautions. 5. History of continuous tobacco use, counseling done. Continue nicotine patch transdermally daily. 6. History of hypertension. Continue lisinopril, metoprolol, and follow blood pressure closely. 7. Deep vein thrombosis prophylaxis, patient is on heparin. 8. Code status, the patient wishes to be full code. MD MARTITA Stephenson/RIVKA / [id number] MTDD
[2020-12-16] MEDS: Divalproex Sodium ER 250 MG TAB.ER.24H PO (21:52)
[2020-12-16] MEDS: Melatonin 3 MG TABLET 6 MG PO (21:52)
[2020-12-16] MEDS: Ranolazine 500 MG TAB.ER.12H 1000 MG PO (21:52)
[2020-12-16] MEDS: levETIRAcetam 250 MG TABLET 750 MG PO (21:52)
[2020-12-16] MEDS: Metoprolol Tartrate 25 MG TABLET 75 MG PO (21:53)
[2020-12-16] MEDS: 0.9 % Sodium Chloride Flush 3 ML SYRINGE IVFLUSH (21:53)
[2020-12-16 23:44] LABS: PTT Heparin Drip 71.6 SEC (53-77.9)
[2020-12-17] VITALS (9 sets, daily range): BP systolic 101–147; BP diastolic 65–84; PULSE 59–61; RESP 16–20; TEMP 36–37.1; O2SAT 94–97
--- NOTE | 2020-12-17 03:05 | PC.NURSE ---
NOTED BY NURSING CABLE FERRYBOAT OPERATOR THAT PT;S WEIGHT IS ABOVE PARAMETERS FOR HEP DRIP(95.25 KG).HEP DRIP RATE ADJUSTED TO 10CC/HR,(10.49UX/KG/HR.).NEXT PTT-HD AT 0530.
[2020-12-17] MEDS: HYDROmorphone HCl 0.5 MG/0.5 ML SYRINGE 1 MG IVPUSH ×5 (03:45→20:32)
[2020-12-17] MEDS: Omeprazole 40 MG CAPSULE.DR PO (05:50)
[2020-12-17 06:19] LABS: Hematocrit 35.6 % (42-52); Mean Corpuscular HGB Conc 33.7 g/dl (31.0-36.0); Mean Corpuscular Hemoglobin 30.9 pg (27.0-33.0); Mean Corpuscular Volume 91.8 fL (80-98); Mean Platelet Volume 9.1 fL (9.4-12.4); Platelet Count 283 X10*3/uL (160-400); Red Blood Count 3.88 X10*6/uL (4.60-5.80); Red Cell Distribution Width 12.4 % (11.0-16.0)
[2020-12-17 06:28] LABS: PTT Heparin Drip 70.7 SEC (53-77.9)
[2020-12-17] MEDS: Nicotine 14 MG PATCH.TD24 TRANSDERMA (08:02)
[2020-12-17] MEDS: Metoprolol Tartrate 25 MG TABLET 75 MG PO ×2 (08:02→20:32)
[2020-12-17] MEDS: Aspirin Enteric Coated 81 MG TABLET.DR PO (08:03)
[2020-12-17] MEDS: levETIRAcetam 250 MG TABLET 750 MG PO ×2 (08:03→20:31)
[2020-12-17] MEDS: Ezetimibe 10 MG TABLET PO (08:03)
[2020-12-17] MEDS: Ranolazine 500 MG TAB.ER.12H 1000 MG PO ×2 (08:03→20:32)
[2020-12-17] MEDS: Multivitamin TABLET 1 TAB PO (08:03)
[2020-12-17] MEDS: amLODIPine Besylate 10 MG TABLET PO (08:03)
[2020-12-17] MEDS: lisinopriL 10 MG TABLET PO (08:04)
[2020-12-17] MEDS: 0.9 % Sodium Chloride Flush 3 ML SYRINGE IVFLUSH ×2 (08:04→15:16)
--- NOTE | 2020-12-17 08:32 | MHC.CM.PN ---
CM met with Patient at bedside and addressed IMM, providing him with the original and placing a copy on the chart. Patient lives in a house with a Roommate and he is interested in a referral to both [facility] and [facility], not being sure yet exactly what the dc plan is. JACQUELINE has initiated and will follow for dc planning. Patient uses a cane and Dr. Hampton Name is his PCP. HCP is Friend/Beatrice Lehay @ [phone] or [phone].
[2020-12-17 09:32] LABS: Glucose Urine UA NEG (NEG); Leukocyte Esterase Urine NEG (NEG); Nitrite Urine NEG (NEG); PH 6.5 (5.0-8.0); Urine Blood NEG (NEG); Urine Ketones NEG (NEG); Urine Protein NEG (NEG-TRACE)
[2020-12-17 09:33] LABS: Appearance Urine CLEAR; Color Urine YELLOW
--- NOTE | 2020-12-17 10:14 | PM.HEMONCCN ---
Subjective - Subjective Patient: new to practice Consult date: 12/17/20 Primary Care Provider: Memo Alex MD HPI - Consult Narrative Reason for consult: DVT Narrative: Myles Tipton is a 65 year old male with acute dvt left leg with history of old DVT. In February of 2020 he was thought to have an AVMN with intrcranial bleeding but this was disproven. He is on iv heparin now. Review of Systems - Constitutional Reports anorexia - Cardiovascular Reports fast heart rate - Respiratory Reports dyspnea - Gastrointestinal Reports other - Genitourinary Genitourinary: Reports other - Musculoskeletal Reports stiffness PMFSH Medical History: Medical History (Last Reviewed 12/16/20 @ 22:16 by Teresa Coppola, RN) Atherosclerotic cardiovascular disease Brain bleed Brain lesion CAD (coronary artery disease) Cholecystectomy planned COVID-19 vaccine administered Esophagitis Essential hypertension Essential hypertension GERD (gastroesophageal reflux disease) Headache Hip replacement planned HTN (hypertension) Hypotension Myocardial infarction Pacemaker Psychotic disorder Screening for colon cancer Seizures Syncope Tremor Tubular adenoma of colon Family History: Family History (Last Reviewed 12/16/20 @ 11:03 by Meeta Hodge MD) Father Heavy cigarette smoker Throat cancer Mother Heart disease Surgical History: Surgical History (Last Reviewed 12/16/20 @ 22:16 by Teresa Coppola RN) History of appendectomy History of cardiac catheterization History of esophagogastroduodenoscopy (EGD) History of permanent cardiac pacemaker placement Onset Date: ~06/01/13 Knee joint replacement by other means Stented coronary artery Social History: Social History (Last Reviewed 12/16/20 @ 11:03 by Meeta Hodge MD) Living Situation History: Household Members: Other Household Members Other:: shares house with a friend Housing: House Are you a primary post acute care nurse to a significant other at home: No Do you presently have visiting nurse or other home services: No Do you presently have visiting nurse or other home services comment: pt feels he will need it Alcohol History: Alcohol intake: never Alcohol History Details: Alcohol intake frequency: former alcohol drinker Tobacco History: Patient Tobacco Use Status: Current someday Tobacco Tobacco use type: Cigarette Cigarettes Per Day: 4 Years Smoked: 25 Smoked in Last 30 Days: Yes Substance Use History: Use of substances other than those prescribed or required for medical reasons: No Currently Displaying Signs/Symptoms of Drug Intoxication Withdrawal: No Domestic Abuse History: Have you been hit, kicked, punched, or otherwise hurt by someone within the past year? If so, by whom?: No Do you feel safe in your current relationship?: No Current Relationship Is there a partner from a previous relationship who is making you feel unsafe now?: No Are you made to feel afraid or neglected: No Advance Directives: Advance Directives: Yes Advance Directives Information Provided: Yes Advance Directives on File: No Advance Directives Date on File: 12/16/20 Homicidal Assessment: Do you have thoughts of harming others: None Do you have a plan to hurt others: No Plan Nutrition Assessment: Recently lost weight without trying: No Nutrition Risks: No Nutritional Risk Occupation Assessmet: service: No Current occupational status: retired Home Medications and Allergies Current Medications: Current Medications Generic Name Dose Route Start Last Admin Trade Name Freq PRN Reason Stop Dose Admin Acetaminophen 650 mg 12/16/20 17:21 Acetaminophen 325 Mg Tablet PO Q6H PRN Pain, Mild (Pain Scale 1-3) Amlodipine Besylate 10 mg 12/17/20 09:00 12/17/20 08:03 Amlodipine Besylate 10 Mg Tablet PO 10 mg DAILY CRICKET Administration Protocol Aspirin 81 mg 12/17/20 09:00 12/17/20 08:03 Aspirin Enteric Coated 81 Mg Tablet.Dr PO 81 mg DAILY CRICKET Administration Atorvastatin Calcium 20 mg 12/17/20 21:00 Atorvastatin Calcium 20 Mg Tablet PO BEDTIME CRICKET Divalproex Sodium 250 mg 12/16/20 21:00 12/16/20 21:52 Divalproex Sodium Er 250 Mg Tab.Er.24h PO 250 mg BEDTIME CRICKET Administration Ezetimibe 10 mg 12/17/20 09:00 12/17/20 08:03 Ezetimibe 10 Mg Tablet PO 10 mg DAILY CRICKET Administration Heparin Sodium (Porcine) 3,800 unit 12/16/20 14:55 Heparin Sodium,Porcine 5,000 Unit/Ml Vial 40 unit/kg (3800 unit) IVPUSH BOLUS PRN 40 unit/kg - Heparin Protocol Heparin Sodium (Porcine) 7,600 unit 12/16/20 14:55 Heparin Sodium,Porcine 5,000 Unit/Ml Vial 80 unit/kg (7600 unit) IVPUSH BOLUS PRN 80 unit/kg - Heparin Protocol Hydromorphone HCl 1 mg 12/16/20 17:21 12/17/20 07:58 Hydromorphone Hcl 0.5 Mg/0.5 Ml Syringe IVPUSH 1 mg Q4H PRN Administration Pain, Severe (Pain Scale 7-10) Heparin Sodium/Sodium Chloride 25,000 unit in 250 mls @ 0 mls/hr 12/16/20 15:00 12/17/20 03:06 IVCONT 10.5 units/kg/hr .Q0M CRICKET 10 mls/hr Titration Protocol Per Protocol Levetiracetam 750 mg 12/16/20 21:00 12/17/20 08:03 Levetiracetam 250 Mg Tablet PO 750 mg BID CRICKET Administration Lisinopril 10 mg 12/17/20 09:00 12/17/20 08:04 Lisinopril 10 Mg Tablet PO 10 mg DAILY CRICKET Administration Protocol Melatonin 6 mg 12/16/20 17:21 12/16/20 21:52 Melatonin 3 Mg Tablet PO 6 mg BEDTIME PRN Administration Insomnia Metoprolol Tartrate 75 mg 12/16/20 21:00 12/17/20 08:02 Metoprolol Tartrate 25 Mg Tablet PO 75 mg BID CRICKET Administration Protocol Multivitamins/Vitamin C 1 tab 12/17/20 09:00 12/17/20 08:03 Multivitamin Tablet PO 1 tab DAILY CRICKET Administration Nicotine 14 mg 12/17/20 09:00 12/17/20 08:02 Nicotine 14 Mg Patch.Td24 TRANSDERMA 14 mg DAILY CRICKET Administration Nicotine Polacrilex 2 - 4 mg 12/16/20 17:21 Nicotine Polacrilex 2 Mg Lozenge BUCCAL Q1H PRN Smoking Cessation Nitroglycerin 0.4 mg 12/16/20 17:21 Nitroglycerin 0.4 Mg Tab.Subl SUBLINGUAL Q5M PRN chest pain Omeprazole 40 mg 12/17/20 06:30 12/17/20 05:50 Omeprazole 40 Mg Capsule.Dr PO 40 mg DAILY@0630 CRICKET Administration Ondansetron HCl 4 mg 12/16/20 17:21 Ondansetron Hcl 4 Mg/2 Ml Vial IVPUSH Q8H PRN Nausea and Vomiting Ranolazine 1,000 mg 12/16/20 21:00 12/17/20 08:03 Ranolazine 500 Mg Tab.Er.12h PO 1,000 mg BID CRICKET Administration Sodium Chloride 3 ml 12/17/20 00:00 12/17/20 08:04 0.9 % Sodium Chloride Flush 3 Ml Syringe IVFLUSH 3 ml QSHIFT CRICKET Administration Home Medications Medication Instructions Recorded Confirmed Type amlodipine 10 mg PO DAILY 04/25/20 12/16/20 History aspirin 81 mg PO DAILY 04/25/20 12/16/20 History rosuvastatin 40 mg PO BEDTIME 04/25/20 12/16/20 History oxycodone 10 mg PO Q4H PRN 04/26/20 12/16/20 History divalproex 250 mg PO BEDTIME 09/08/20 12/16/20 History ezetimibe 10 mg tablet 10 mg PO DAILY 10/24/20 12/16/20 History lisinopril 10 mg tablet 10 mg PO DAILY 10/24/20 12/16/20 History multivitamin 1 tab PO DAILY 10/24/20 12/16/20 History pantoprazole 40 mg tablet,delayed 40 mg PO DAILY 10/24/20 12/16/20 History release ranolazine 1,000 mg 1,000 mg PO BID 10/24/20 12/16/20 History tablet,extended release,12 hr levetiracetam 1 tab PO BID 12/14/20 12/16/20 History nicotine 14 mg TOPICAL DAILY 12/14/20 12/16/20 History nicotine (polacrilex) 2 - 4 mg PO Q1-2H PRN 12/14/20 12/16/20 History Allergies Allergy/AdvReac Type Severity Reaction Status Date / Time bee pollen [BEE STINGS] Allergy Severe ANAPHYLAXIS Verified 10/24/20 12:27 indomethacin [Indocin] Allergy Severe anaphylaxis Verified 10/24/20 12:27 tramadol [Ultram] Allergy Severe anaphylaxis Verified 10/24/20 12:27 Physical Exam Vital signs: Vital Signs Temp 97.2 F 12/17/20 07:19 Pulse 60 12/17/20 08:02 Resp 18 12/17/20 07:58 BP 147/81 H 12/17/20 08:02 Pulse Ox 95 12/17/20 07:19 Intake & Output 12/16/20 12/17/20 12/17/20 18:59 06:59 18:59 Intake Total 264.3 / 264.3 Output Total 900 / 900 200 / 200 Balance -635.7 / -635.7 -200 / -200 Urine Output (Average ml/kg/hr) 0.78 0.17 Intake: Intake, Oral Amount 150 / 150 Intake, IV Amount 114.3 / 114.3 Heparin Sodium,Porcine/1/2NS 25 114.3 / 114.3 ,000 unit In 250 ml @ Per Protocol IVCONT .Q0M [facility] Rx#: [id number] Output: Output, Urine Amount 900 / 900 200 / 200 Other: Meal Refused No Number of Unmeasured Voids 1 Urine Urinal Urine Color Yellow Last Bowel Movement 12/15/20 Weight 95.254 kg 96.7 kg [place] Weight in Grams 83295 Weight 96.7 kg - Constitutional Present: no acute distress - Routine HEENT Exam Head: Present: atraumatic - Routine Neck Exam Present: full ROM - Routine Respiratory Exam Present: decreased breath sounds - Routine Cardiovascular Exam Cardiovascular: Present: RRR - Routine Abdominal Exam Present: nontender - Routine Extremities Exam Present: calf tenderness Hem/Onc Consult Result - Labs CBC & Chem 7: 12/17/20 05:43 12/16/20 11:08 Labs: Short CBC 12/16/20 12/16/20 12/17/20 Range/Units 11:08 18:25 05:43 WBC 7.9 7.6 7.0 (4.8-10.8) X10*3/uL Hgb 12.6 L 12.3 L 12.0 L (14.0-18.0) g/dl Hct 36.6 L 36.4 L 35.6 L (42-52) % Plt Count 270 272 283 (160-400) X10*3/uL BMP 12/16/20 11:08 Sodium 139 Potassium 4.0 Chloride 105 Carbon Dioxide 24 BUN 10 Creatinine 0.84 Calcium 8.8 D Liver Function 12/16/20 Range/Units 11:08 Total Bilirubin 0.6 (0.0-1.0) mg/dL Direct Bilirubin 0.2 (0.0-0.5) mg/dL AST 14 D (5-37) U/L ALT 12 (0-40) U/L Alkaline Phosphatase 84 D (39-117) U/L Albumin 3.8 (3.5-5.0) g/dL Urine 12/17/20 Range/Units 09:15 Urine Color YELLOW Urine Appearance CLEAR Urine pH 6.5 (5.0-8.0) Ur Specific [place] 1.010 (1.005-1.025) Urine Protein NEG (NEG-TRACE) MG/DL Urine Glucose (UA) NEG (NEG) MG/DL Assessment and Plan (1) DVT (deep venous thrombosis) Status: Acute Qualifiers: DVT location: lower extremity Affected thrombotic vein of extremity: tibial Chronicity: acute Laterality: left Qualified Code(s): I82.442 - Acute embolism and thrombosis of left tibial vein He is stable. jRecommend switch from IV heparin to oral agent and discharge to follow up in Hematology.
--- NOTE | 2020-12-17 10:20 | HO.PM.IMPN ---
Subjective Subjective Date of Service: 12/17/20 Interval History: Patient feeling better less left leg pain, and swelling, denies shortness of breath, no chest pain, no other acute issues overnight. ROS [employer] no headache, no dizziness CVS no chest pain, no palpitation Respiratory no cough, no shortness of breath GI no nausea, no vomiting Physical Exam Vital Signs: Vital Signs: Last Vital Signs Temp 97.2 F 12/17/20 07:19 Pulse 60 12/17/20 08:02 Resp 18 12/17/20 07:58 BP 147/81 H 12/17/20 08:02 Pulse Ox 95 12/17/20 07:19 Body Mass Index 29.7 General resting comfortably in no acute distress. Neck no JVD. CVS regular rate rhythm, Respiratory lungs clear to auscultation, no respiratory distress Gastrointestinal abdomen soft, nontender, bowel sounds audible Extremities left calf swelling improving, right lower extremity no swelling, no redness Neuro nonfocal Skin no rash Objective Data Current Medications Generic Name Dose Route Start Last Admin Trade Name Freq PRN Reason Stop Dose Admin Acetaminophen 650 mg 12/16/20 17:21 Acetaminophen 325 Mg Tablet PO Q6H PRN Pain, Mild (Pain Scale 1-3) Amlodipine Besylate 10 mg 12/17/20 09:00 12/17/20 08:03 Amlodipine Besylate 10 Mg Tablet PO 10 mg DAILY CRICKET Administration Protocol Aspirin 81 mg 12/17/20 09:00 12/17/20 08:03 Aspirin Enteric Coated 81 Mg Tablet.Dr PO 81 mg DAILY CRICKET Administration Atorvastatin Calcium 20 mg 12/17/20 21:00 Atorvastatin Calcium 20 Mg Tablet PO BEDTIME CRICKET Divalproex Sodium 250 mg 12/16/20 21:00 12/16/20 21:52 Divalproex Sodium Er 250 Mg Tab.Er.24h PO 250 mg BEDTIME CRICKET Administration Ezetimibe 10 mg 12/17/20 09:00 12/17/20 08:03 Ezetimibe 10 Mg Tablet PO 10 mg DAILY CRICKET Administration Heparin Sodium (Porcine) 3,800 unit 12/16/20 14:55 Heparin Sodium,Porcine 5,000 Unit/Ml Vial 40 unit/kg (3800 unit) IVPUSH BOLUS PRN 40 unit/kg - Heparin Protocol Heparin Sodium (Porcine) 7,600 unit 12/16/20 14:55 Heparin Sodium,Porcine 5,000 Unit/Ml Vial 80 unit/kg (7600 unit) IVPUSH BOLUS PRN 80 unit/kg - Heparin Protocol Hydromorphone HCl 1 mg 12/16/20 17:21 12/17/20 07:58 Hydromorphone Hcl 0.5 Mg/0.5 Ml Syringe IVPUSH 1 mg Q4H PRN Administration Pain, Severe (Pain Scale 7-10) Heparin Sodium/Sodium Chloride 25,000 unit in 250 mls @ 0 mls/hr 12/16/20 15:00 12/17/20 03:06 IVCONT 10.5 units/kg/hr .Q0M CRICKET 10 mls/hr Titration Protocol Per Protocol Levetiracetam 750 mg 12/16/20 21:00 12/17/20 08:03 Levetiracetam 250 Mg Tablet PO 750 mg BID CRICKET Administration Lisinopril 10 mg 12/17/20 09:00 12/17/20 08:04 Lisinopril 10 Mg Tablet PO 10 mg DAILY CRICKET Administration Protocol Melatonin 6 mg 12/16/20 17:21 12/16/20 21:52 Melatonin 3 Mg Tablet PO 6 mg BEDTIME PRN Administration Insomnia Metoprolol Tartrate 75 mg 12/16/20 21:00 12/17/20 08:02 Metoprolol Tartrate 25 Mg Tablet PO 75 mg BID CRCIKET Administration Protocol Multivitamins/Vitamin C 1 tab 12/17/20 09:00 12/17/20 08:03 Multivitamin Tablet PO 1 tab DAILY CRICKET Administration Nicotine 14 mg 12/17/20 09:00 12/17/20 08:02 Nicotine 14 Mg Patch.Td24 TRANSDERMA 14 mg DAILY CRICKET Administration Nicotine Polacrilex 2 - 4 mg 12/16/20 17:21 Nicotine Polacrilex 2 Mg Lozenge BUCCAL Q1H PRN Smoking Cessation Nitroglycerin 0.4 mg 12/16/20 17:21 Nitroglycerin 0.4 Mg Tab.Subl SUBLINGUAL Q5M PRN chest pain Omeprazole 40 mg 12/17/20 06:30 12/17/20 05:50 Omeprazole 40 Mg Capsule.Dr PO 40 mg DAILY@0630 CRICKET Administration Ondansetron HCl 4 mg 12/16/20 17:21 Ondansetron Hcl 4 Mg/2 Ml Vial IVPUSH Q8H PRN Nausea and Vomiting Ranolazine 1,000 mg 12/16/20 21:00 12/17/20 08:03 Ranolazine 500 Mg Tab.Er.12h PO 1,000 mg BID CRICKET Administration Sodium Chloride 3 ml 12/17/20 00:00 12/17/20 08:04 0.9 % Sodium Chloride Flush 3 Ml Syringe IVFLUSH 3 ml QSHIFT CRICKET Administration Labs CBC & Chem 7: 12/17/20 05:43 12/16/20 11:08 Labs: Laboratory Results - last 24 hr 12/16/20 12/16/20 12/16/20 11:08 11:08 11:08 WBC 7.9 RBC 4.07 L Hgb 12.6 L Hct 36.6 L MCV 89.9 MCH 31.0 MCHC 34.4 RDW 12.2 Plt Count 270 MPV 8.7 L Immature Gran % (Auto) 0.5 H Neut % (Auto) 71.7 Lymph % (Auto) 15.2 L [place] % (Auto) 7.7 Eos % (Auto) 4.3 H Baso % (Auto) 0.6 Lymph # (Auto) 1.2 [place] # (Auto) 0.6 Eos # (Auto) 0.3 Baso # (Auto) 0.1 Abs Immat Gran (auto) 0.04 H Absolute Neuts (auto) 5.7 Absolute Nucleated RBC 0.000 Nucleated RBC % (auto) 0.0 PT INR APTT PTT (Heparin Protocol) D-Dimer Sodium 139 Potassium 4.0 Chloride 105 Carbon Dioxide 24 Anion Gap 14 BUN 10 Creatinine 0.84 Estim Creat Clear Calc 100.5 Estimated GFR > 60 Random Glucose 116 H Calcium 8.8 D Total Bilirubin 0.6 Direct Bilirubin 0.2 AST 14 D ALT 12 Alkaline Phosphatase 84 D B-Natriuretic Peptide Total Protein 6.2 L Albumin 3.8 Lipase 14 Urine Color Urine Appearance Urine pH Ur Specific [place] Urine Protein Urine Glucose (UA) Urine Ketones Urine Blood Urine Nitrite Ur Leukocyte Esterase 12/16/20 12/16/20 12/16/20 11:08 14:14 18:25 WBC 7.6 RBC 3.99 L Hgb 12.3 L Hct 36.4 L MCV 91.2 MCH 30.8 MCHC 33.8 RDW 12.2 Plt Count 272 MPV 8.9 L Immature Gran % (Auto) Neut % (Auto) Lymph % (Auto) [place] % (Auto) Eos % (Auto) Baso % (Auto) Lymph # (Auto) [place] # (Auto) Eos # (Auto) Baso # (Auto) Abs Immat Gran (auto) Absolute Neuts (auto) Absolute Nucleated RBC 0.000 Nucleated RBC % (auto) 0.0 PT 11.4 INR 1.0 APTT 38.5 H PTT (Heparin Protocol) D-Dimer 485 Sodium Potassium Chloride Carbon Dioxide Anion Gap BUN Creatinine Estim Creat Clear Calc Estimated GFR Random Glucose Calcium Total Bilirubin Direct Bilirubin AST ALT Alkaline Phosphatase B-Natriuretic Peptide 81 Total Protein Albumin Lipase Urine Color Urine Appearance Urine pH Ur Specific [place] Urine Protein Urine Glucose (UA) Urine Ketones Urine Blood Urine Nitrite Ur Leukocyte Esterase 12/16/20 12/16/20 12/17/20 18:26 23:22 05:43 WBC 7.0 RBC 3.88 L Hgb 12.0 L Hct 35.6 L MCV 91.8 MCH 30.9 MCHC 33.7 RDW 12.4 Plt Count 283 MPV 9.1 L Immature Gran % (Auto) Neut % (Auto) Lymph % (Auto) [place] % (Auto) Eos % (Auto) Baso % (Auto) Lymph # (Auto) [place] # (Auto) Eos # (Auto) Baso # (Auto) Abs Immat Gran (auto) Absolute Neuts (auto) Absolute Nucleated RBC 0.000 Nucleated RBC % (auto) 0.0 PT 11.8 INR 1.0 APTT PTT (Heparin Protocol) 55.6 71.6 D D-Dimer Sodium Potassium Chloride Carbon Dioxide Anion Gap BUN Creatinine Estim Creat Clear Calc Estimated GFR Random Glucose Calcium Total Bilirubin Direct Bilirubin AST ALT Alkaline Phosphatase B-Natriuretic Peptide Total Protein Albumin Lipase Urine Color Urine Appearance Urine pH Ur Specific [place] Urine Protein Urine Glucose (UA) Urine Ketones Urine Blood Urine Nitrite Ur Leukocyte Esterase 12/17/20 12/17/20 12/17/20 05:43 05:43 09:15 WBC RBC Hgb Hct MCV MCH MCHC RDW Plt Count MPV Immature Gran % (Auto) Neut % (Auto) Lymph % (Auto) [place] % (Auto) Eos % (Auto) Baso % (Auto) Lymph # (Auto) [place] # (Auto) Eos # (Auto) Baso # (Auto) Abs Immat Gran (auto) Absolute Neuts (auto) Absolute Nucleated RBC Nucleated RBC % (auto) PT 11.0 INR 1.0 APTT PTT (Heparin Protocol) 70.7 D-Dimer Sodium Potassium Chloride Carbon Dioxide Anion Gap BUN Creatinine Estim Creat Clear Calc Estimated GFR Random Glucose Calcium Total Bilirubin Direct Bilirubin AST ALT Alkaline Phosphatase B-Natriuretic Peptide Total Protein Albumin Lipase Urine Color YELLOW Urine Appearance CLEAR Urine pH 6.5 Ur Specific [place] 1.010 Urine Protein NEG Urine Glucose (UA) NEG Urine Ketones NEG Urine Blood NEG Urine Nitrite NEG Ur Leukocyte Esterase NEG Quality Stroke Does the patient have a stroke diagnosis?: No VTE Prior VTE?: Yes VTE Risk Level:: Medical - moderate - high VTE Device Contraindication: Treatment Not Indicated VTE Drug Contraindication: N/A - Med Ordered Assessment and Plan (1) DVT (deep venous thrombosis): Status: Acute (2) Atherosclerotic cardiovascular disease: Status: Acute (3) Essential hypertension: Status: Acute (4) Seizure: Status: Acute Assessment and Plan: 65-year-old gentleman with known history of coronary artery disease, status post stent placement, prior history of provoked deep vein thrombosis,presented to [facility] for several week history of left lower extremity swelling and pain, diagnosed to have acute left posterior tibial deep vein thrombosis. 1. Left posterior tibial deep vein thrombosis. Unprovoked, patient denies history of prolonged immobilization,no trauma, continue IV heparin drip today and transition to oral anticoagulants Xarelto/Eliquis tomorrow Patient in February of 2019 admitted to [facility] due to essential tremors and right upper extremity weakness CT brain at that time showed a small right occipital hemorrhage Subsequent to that patient underwent serial CT head and CTA head and neck ,last CTA head and neck was done in June of 2020 that showed chronic hyper attenuating focus right occipital lobe April of 2020 patient was admitted for syncope and headache ,an EEG was abnormal therefore he was placed on seizure medication An MRI brain was not obtained due to an old pacemaker Will continue IV Dilaudid for pain control since patient is on oxycodone 10 mg q.6 hours for his chronic back pain but was not providing relief will gradually wean Dilaudid and place him back on home medication. Case discussed with Dr. Miranda since there is no evidence of aneurysm, he agrees to transition to oral anticoagulant at a.m. 2. History of coronary artery disease. Currently, no chest pain. continue home medications. 3. History of hyperlipidemia. Continue Zetia and statins. 4. History of seizure disorder. will continue Depakote and seizure precautions. 5. History of continuous tobacco use, counseling done. Continue nicotine patch transdermally daily. 6. History of hypertension. Continue lisinopril, metoprolol, and follow blood pressure closely. 7. Deep vein thrombosis prophylaxis, on heparin. 8. Code status, full code.
[2020-12-17] MEDS: Heparin Sodium,Porcine/1/2NS 25,000 UNIT/250 ML IV.SOLN 10 UNIT IVCONT (13:42)
[2020-12-17] MEDS: Atorvastatin Calcium 20 MG TABLET PO (20:32)
[2020-12-17] MEDS: Divalproex Sodium ER 250 MG TAB.ER.24H PO (20:32)
[2020-12-18] VITALS (14 sets, daily range): BP systolic 119–156; BP diastolic 67–82; PULSE 57–62; RESP 16–20; TEMP 35.9–36.9; O2SAT 94–96
[2020-12-18] MEDS: HYDROmorphone HCl 0.5 MG/0.5 ML SYRINGE 1 MG IVPUSH ×3 (00:07→08:50)
[2020-12-18] MEDS: Melatonin 3 MG TABLET 6 MG PO ×2 (00:07→21:46)
[2020-12-18] MEDS: 0.9 % Sodium Chloride Flush 3 ML SYRINGE IVFLUSH ×3 (00:08→21:15)
[2020-12-18] MEDS: Omeprazole 40 MG CAPSULE.DR PO (05:45)
[2020-12-18 06:54] LABS: Hematocrit 35.8 % (42-52); Hemoglobin 11.9 g/dl (14.0-18.0); Mean Corpuscular HGB Conc 33.2 g/dl (31.0-36.0); Mean Corpuscular Hemoglobin 30.6 pg (27.0-33.0); Mean Platelet Volume 9.3 fL (9.4-12.4); Platelet Count 279 X10*3/uL (160-400); Red Blood Count 3.89 X10*6/uL (4.60-5.80); Red Cell Distribution Width 12.3 % (11.0-16.0); White Blood Count 7.2 X10*3/uL (4.8-10.8)
[2020-12-18 07:11] LABS: PTT Heparin Drip 46.9 SEC (53-77.9)
[2020-12-18] MEDS: Heparin Sodium,Porcine 5,000 UNIT/ML VIAL 3800 UNIT IVPUSH (07:21)
[2020-12-18] MEDS: Nicotine 14 MG PATCH.TD24 TRANSDERMA (08:36)
[2020-12-18] MEDS: Metoprolol Tartrate 25 MG TABLET 75 MG PO ×2 (08:37→21:14)
[2020-12-18] MEDS: Ezetimibe 10 MG TABLET PO (08:38)
[2020-12-18] MEDS: amLODIPine Besylate 10 MG TABLET PO (08:38)
[2020-12-18] MEDS: Aspirin Enteric Coated 81 MG TABLET.DR PO (08:38)
[2020-12-18] MEDS: levETIRAcetam 250 MG TABLET 750 MG PO ×2 (08:38→21:14)
[2020-12-18] MEDS: lisinopriL 10 MG TABLET PO (08:39)
[2020-12-18] MEDS: Ranolazine 500 MG TAB.ER.12H 1000 MG PO ×2 (08:39→21:14)
[2020-12-18] MEDS: Multivitamin TABLET 1 TAB PO (08:39)
[2020-12-18] MEDS: Apixaban 5 MG TABLET 10 MG PO ×2 (12:28→21:15)
[2020-12-18] MEDS: HYDROmorphone HCl 0.5 MG/0.5 ML SYRINGE IVPUSH ×3 (12:28→23:24)
[2020-12-18 14:56] LABS: PTT Heparin Drip 45.8 SEC (53-77.9)
--- NOTE | 2020-12-18 16:56 | P.PNIM_ITS ---
Subjective Subjective Date of Service: 12/18/20 Interval History: C/o severe LLE pain/swelling but states improving No dyspnea No chest pain Physical Exam Vital Signs: Vital Signs: Last Vital Signs Temp 97.0 F 12/18/20 15:12 Pulse 61 12/18/20 15:12 Resp 20 12/18/20 15:12 BP 156/81 H 12/18/20 15:12 Pulse Ox 94 12/18/20 15:12 Body Mass Index 29.7 Gen: in no acute distress HEENT: sclera anicteric, moist mucus membranes Neck: supple Lungs: clear to auscultation bilaterally Heart: regular rate and rhythm, no murmurs Abd: soft, non-tender, non-distended Ext: L calf swelling/induration/tenderness Skin: warm/well-perfused Neuro: alert and oriented x3, no focal findings Psych: appropriate affect Objective Data Current Medications Generic Name Dose Route Start Last Admin Trade Name Freq PRN Reason Stop Dose Admin Acetaminophen 650 mg 12/16/20 17:21 Acetaminophen 325 Mg Tablet PO Q6H PRN Pain, Mild (Pain Scale 1-3) Hydrocodone Bitart/Acetaminophen 1 tab 12/18/20 11:56 Hydrocodone Bit/Acetam 10/325 Tablet PO Q4H PRN pain,moderate Amlodipine Besylate 10 mg 12/17/20 09:00 12/18/20 08:38 Amlodipine Besylate 10 Mg Tablet PO 10 mg DAILY CRICKET Administration Protocol Apixaban 10 mg 12/18/20 12:00 12/18/20 12:28 Apixaban 5 Mg Tablet PO 10 mg BID CRICKET Administration Aspirin 81 mg 12/17/20 09:00 12/18/20 08:38 Aspirin Enteric Coated 81 Mg Tablet.Dr PO 81 mg DAILY CRICKET Administration Atorvastatin Calcium 20 mg 12/17/20 21:00 12/17/20 20:32 Atorvastatin Calcium 20 Mg Tablet PO 20 mg BEDTIME CRICKET Administration Divalproex Sodium 250 mg 12/16/20 21:00 12/17/20 20:32 Divalproex Sodium Er 250 Mg Tab.Er.24h PO 250 mg BEDTIME CRICKET Administration Ezetimibe 10 mg 12/17/20 09:00 12/18/20 08:38 Ezetimibe 10 Mg Tablet PO 10 mg DAILY CRICKET Administration Hydromorphone HCl 0.5 mg 12/18/20 11:57 12/18/20 12:28 Hydromorphone Hcl 0.5 Mg/0.5 Ml Syringe IVPUSH 0.5 mg Q4H PRN Administration Pain, Severe (Pain Scale 7-10) Levetiracetam 750 mg 12/16/20 21:00 12/18/20 08:38 Levetiracetam 250 Mg Tablet PO 750 mg BID CRICKET Administration Lisinopril 10 mg 12/17/20 09:00 12/18/20 08:39 Lisinopril 10 Mg Tablet PO 10 mg DAILY [facility] Administration Protocol Melatonin 6 mg 12/16/20 17:21 12/18/20 00:07 Melatonin 3 Mg Tablet PO 6 mg BEDTIME PRN Administration Insomnia Metoprolol Tartrate 75 mg 12/16/20 21:00 12/18/20 08:37 Metoprolol Tartrate 25 Mg Tablet PO 75 mg BID [facility] Administration Protocol Multivitamins/Vitamin C 1 tab 12/17/20 09:00 12/18/20 08:39 Multivitamin Tablet PO 1 tab DAILY CRICKET Administration Nicotine 14 mg 12/17/20 09:00 12/18/20 08:36 Nicotine 14 Mg Patch.Td24 TRANSDERMA 14 mg DAILY CRICKET Administration Nicotine Polacrilex 2 - 4 mg 12/16/20 17:21 Nicotine Polacrilex 2 Mg Lozenge BUCCAL Q1H PRN Smoking Cessation Nitroglycerin 0.4 mg 12/16/20 17:21 Nitroglycerin 0.4 Mg Tab.Subl SUBLINGUAL Q5M PRN chest pain Omeprazole 40 mg 12/17/20 06:30 12/18/20 05:45 Omeprazole 40 Mg Capsule.Dr PO 40 mg DAILY@0630 CRICKET Administration Ondansetron HCl 4 mg 12/16/20 17:21 Ondansetron Hcl 4 Mg/2 Ml Vial IVPUSH Q8H PRN Nausea and Vomiting Ranolazine 1,000 mg 12/16/20 21:00 12/18/20 08:39 Ranolazine 500 Mg Tab.Er.12h PO 1,000 mg BID CRICKET Administration Sodium Chloride 3 ml 12/17/20 00:00 12/18/20 08:36 0.9 % Sodium Chloride Flush 3 Ml Syringe IVFLUSH Not Given QSHIFT [facility] Labs CBC & Chem 7: 12/18/20 06:06 12/16/20 11:08 Labs: Laboratory Results - last 24 hr 12/18/20 12/18/20 12/18/20 06:06 06:06 14:12 WBC 7.2 RBC 3.89 L Hgb 11.9 L Hct 35.8 L MCV 92.0 MCH 30.6 MCHC 33.2 RDW 12.3 Plt Count 279 MPV 9.3 L Absolute Nucleated RBC 0.000 Nucleated RBC % (auto) 0.0 PTT (Heparin Protocol) 46.9 L D 45.8 L Quality Stroke Does the patient have a stroke diagnosis?: No VTE Prior VTE?: Yes VTE Risk Level:: Medical - moderate - high VTE Device Contraindication: Treatment Not Indicated VTE Drug Contraindication: N/A - Med Ordered Assessment and Plan (1) DVT (deep venous thrombosis): Status: Acute (2) Atherosclerotic cardiovascular disease: Status: Acute (3) Essential hypertension: Status: Acute (4) Seizure: Status: Acute Assessment and Plan: hospital d#3 65yo M with CAD s/p PCI, prior unprovoked DVT presented with worsening LLE swelling/pain for severe weeks admitted for L posterior tibial DVT # unprovoked DVT - Hematology consulted; concern of aneurysm that has been disproven; CT brain Feb 2019 showed small R occipital hemorrhage; serial CTs showed chronic hyperattenuating focus of the R occipital lobe most consistent with calcification; transition from IV heparin gtt to apixaban today - gradually wean IV hydromorphine and transition to PO [place] for pain control - hypercoagulable workup given recurrent DVT will be sent though interpret levels with caution given he is already anticoagulated # CAD - continue statin, metoprolol, lisinopril, ranolazine, ASA # HLD - continue statin, ezetimibe # HTN - continue lisinopril, metoprolol, amlodipine # sz disorder - continue valproate # tobacco abuse - continue NRT # VTE ppx - apixaban
[2020-12-18 18:03] LABS: C Reactive Protein 1.41 mg/dL (< or = 0.50)
[2020-12-18 18:17] LABS: Erythrocyte Sedimentation Rate 38 MM/HR (0-15)
[2020-12-18] MEDS: Atorvastatin Calcium 20 MG TABLET PO (21:14)
[2020-12-18] MEDS: Divalproex Sodium ER 250 MG TAB.ER.24H PO (21:14)
[2020-12-19 03:22] VITALS: BP 157/85; PULSE 61; RESP 18; TEMP 36.5; O2SAT 95
[2020-12-19] MEDS: HYDROmorphone HCl 0.5 MG/0.5 ML SYRINGE IVPUSH ×3 (03:26→12:44)
[2020-12-19] MEDS: Acetaminophen 325 MG TABLET 650 MG PO (03:26)
[2020-12-19] MEDS: Omeprazole 40 MG CAPSULE.DR PO (05:36)
[2020-12-19 05:55] LABS: Hematocrit 36.7 % (42-52); Hemoglobin 12.4 g/dl (14.0-18.0); Mean Corpuscular HGB Conc 33.8 g/dl (31.0-36.0); Mean Corpuscular Hemoglobin 30.6 pg (27.0-33.0); Mean Corpuscular Volume 90.6 fL (80-98); Mean Platelet Volume 8.5 fL (9.4-12.4); Platelet Count 295 X10*3/uL (160-400); Red Blood Count 4.05 X10*6/uL (4.60-5.80); Red Cell Distribution Width 12.1 % (11.0-16.0); White Blood Count 7.8 X10*3/uL (4.8-10.8)
[2020-12-19 07:16] VITALS: BP 152/76; PULSE 60; RESP 20; TEMP 36.9; O2SAT 96
[2020-12-19 08:05] VITALS: RESP 19
[2020-12-19] MEDS: 0.9 % Sodium Chloride Flush 3 ML SYRINGE IVFLUSH (08:05)
[2020-12-19] MEDS: Nicotine 14 MG PATCH.TD24 TRANSDERMA (08:06)
[2020-12-19] MEDS: Ezetimibe 10 MG TABLET PO (08:06)
[2020-12-19 08:07] VITALS: BP 152/76; PULSE 60
[2020-12-19] MEDS: lisinopriL 10 MG TABLET PO (08:07)
[2020-12-19] MEDS: Apixaban 5 MG TABLET 10 MG PO (08:07)
[2020-12-19] MEDS: Metoprolol Tartrate 25 MG TABLET 75 MG PO (08:07)
[2020-12-19] MEDS: Aspirin Enteric Coated 81 MG TABLET.DR PO (08:07)
[2020-12-19] MEDS: Ranolazine 500 MG TAB.ER.12H 1000 MG PO (08:07)
[2020-12-19] MEDS: levETIRAcetam 250 MG TABLET 750 MG PO (08:07)
[2020-12-19] MEDS: Multivitamin TABLET 1 TAB PO (08:07)
[2020-12-19] MEDS: amLODIPine Besylate 10 MG TABLET PO (08:07)
[2020-12-19 10:36] LABS: Anti-Thrombin III Activity 108 % normal (80-135)
[2020-12-19 11:11] VITALS: BP 138/61; PULSE 61; RESP 20; TEMP 36.9; O2SAT 95
--- NOTE | 2020-12-19 12:30 | PM.DS ---
DS: Providers Provider Date of Service: 12/19/20 Date of admission: 12/16/20 17:21 Primary care physician: Memo Alex MD DS: Diagnosis Discharge Diagnosis (1) DVT (deep venous thrombosis): Status: Acute (2) Cerebral calcification: Status: Acute DS: Medications Discharge Medications Home Medications: Home Medications Medication Instructions Recorded Confirmed amlodipine 10 mg PO DAILY 04/25/20 12/16/20 aspirin 81 mg PO DAILY 04/25/20 12/16/20 rosuvastatin 40 mg PO BEDTIME 04/25/20 12/16/20 oxycodone 10 mg PO Q4H PRN 04/26/20 12/16/20 divalproex 250 mg PO BEDTIME 09/08/20 12/16/20 ezetimibe 10 mg tablet 10 mg PO DAILY 10/24/20 12/16/20 lisinopril 10 mg tablet 10 mg PO DAILY 10/24/20 12/16/20 multivitamin 1 tab PO DAILY 10/24/20 12/16/20 pantoprazole 40 mg tablet,delayed 40 mg PO DAILY 10/24/20 12/16/20 release ranolazine 1,000 mg 1,000 mg PO BID 10/24/20 12/16/20 tablet,extended release,12 hr levetiracetam 1 tab PO BID 12/14/20 12/16/20 nicotine 14 mg TOPICAL DAILY 12/14/20 12/16/20 nicotine (polacrilex) 2 - 4 mg PO Q1-2H PRN 12/14/20 12/16/20 Previous Rx's Medication Instructions Recorded nitroglycerin 0.4 mg sublingual 0.4 mg SUBLINGUAL Q5M PRN #30 tab 10/23/20 tablet metoprolol tartrate 50 mg tablet 75 mg PO BID 90 Days #270 tab 10/24/20 apixaban [Eliquis] See Rx Instructions .ROUTE 12/19/20 .COMPLEX #72 tab DS: Summary Hospital Course Hospital Course: from admission H+P by hospitalist Zacarias Mccord, 12/16/20: This is a 65-year-old gentleman with past medical history significant for hypertension, hyperlipidemia, coronary artery disease, status post stent and pacemaker placement, also history of chronic back pain on high-dose oxycodone. The patient also has a history of rt hand tremors,weakness and syncope with prior CT head in February 2020 concerning for small right occipital hemorrhage, but multiple follow-up CT head and CTA head and neck showed no evidence of occipital hemorrhage, but showed chronic hyper attenuating focus right occipital lobe, due to pacemaker an MRI study was not obtained. patient presented to [facility] today due to right leg swelling. The patient was seen at [facility] 2 days ago for left leg swelling ongoing for greater than 3 weeks associated with significant left leg pain for which the patient was recently treated with prednisone for concern for gout. However, symptoms did not improve; therefore, he was referred to [facility], where a venous Doppler study was obtained that showed no evidence of DVT in the left lower extremity,patient had a repeat study done on December 15 due to persistent left lower extremity pain and swelling,again repeat duplex study did not show a DVT. However, today bilateral lower extremity venous ultrasound was obtained and it showed that there was no DVT in the right lower extremity; however, it showed a DVT in the posterior tibial vein left lower extremity. Due to significant swelling and persistent pain, the patient is now being admitted to [facility] for anticoagulation, due to concern for questionable of prior right occipital hemorrhage, emergency room physician discussed the case with Dr. Miranda and he recommended the patient to be treated with IV heparin drip. The patient was admitted to the [facility] on an IV heparin continuous infusion. A CT of the brain in Feb 2019 showed a small R occipital hemorrhage; serial CTs showed chronic hyperattenuating focus of the R occipital lobe most consistent with calcification. He was transitioned to oral apixaban for anticoagulation. He has a history of remote DVT provoked by knee replacement surgery, but the current episode had no clear provoking factors. A hypercoagulable workup was sent but will need to be interpreted with caution as he was already on therapeutic anticoagulation at the time of the lab draw. He was discharged topher on apixaban and will follow up with his primary care doctor and the hematology transportation consultant to discuss length of anticoagluation. Time Spent with Patient Time attestation: Total time spent providing and/or coordinating discharge services: 35 Discharge coordination time: Greater than 30 minutes Quality: Stroke Does the patient have a stroke diagnosis?: No Physical Exam Vital Signs: Vital Signs: Last Vital Signs Temp 98.5 F 12/19/20 11:11 Pulse 61 12/19/20 11:11 Resp 20 12/19/20 11:11 BP 138/61 12/19/20 11:11 Pulse Ox 95 12/19/20 11:11 Body Mass Index 29.7 Gen: in no acute distress HEENT: sclera anicteric, moist mucus membranes Neck: supple Lungs: clear to auscultation bilaterally Heart: regular rate and rhythm, no murmurs Abd: soft, non-tender, non-distended Ext: L calf swelling/induration/tenderness Skin: warm/well-perfused Neuro: alert and oriented x3, no focal findings Psych: appropriate affect DS: Data Data Completed and Pending Completed studies during hospitalization [Text1]: Laboratory Results WBC 7.8 X10*3/uL (4.8-10.8) 12/19/20 05:37 RBC 4.05 X10*6/uL (4.60-5.80) L 12/19/20 05:37 Hgb 12.4 g/dl (14.0-18.0) L 12/19/20 05:37 Hct 36.7 % (42-52) L 12/19/20 05:37 MCV 90.6 fL (80-98) 12/19/20 05:37 MCH 30.6 pg (27.0-33.0) 12/19/20 05:37 MCHC 33.8 g/dl (31.0-36.0) 12/19/20 05:37 RDW 12.1 % (11.0-16.0) 12/19/20 05:37 Plt Count 295 X10*3/uL (160-400) 12/19/20 05:37 MPV 8.5 fL (9.4-12.4) L 12/19/20 05:37 Immature Gran % (Auto) 0.5 % (0.0-0.4) H 12/16/20 11:08 Neut % (Auto) 71.7 % (45-73) 12/16/20 11:08 Lymph % (Auto) 15.2 % (20-40) L 12/16/20 11:08 [place] % (Auto) 7.7 % (2-11) 12/16/20 11:08 Eos % (Auto) 4.3 % (0-4) H 12/16/20 11:08 Baso % (Auto) 0.6 % (0-2) 12/16/20 11:08 Lymph # (Auto) 1.2 X10*3/uL (1.2-4.9) 12/16/20 11:08 [place] # (Auto) 0.6 X10*3/uL (0.1-1.2) 12/16/20 11:08 Eos # (Auto) 0.3 X10*3/uL (0.0-0.4) 12/16/20 11:08 Baso # (Auto) 0.1 X10*3/uL (0.0-0.2) 12/16/20 11:08 Abs Immat Gran (auto) 0.04 X10*3/uL (0.00-0.03) H 12/16/20 11:08 Absolute Neuts (auto) 5.7 X10*3/uL (2.0-8.3) 12/16/20 11:08 Absolute Nucleated RBC 0.000 X10*3/uL (0.0-0.012) 12/19/20 05:37 Nucleated RBC % (auto) 0.0 /100WBC (0.0-0.2) 12/19/20 05:37 ESR 38 MM/HR (0-15) H 12/18/20 17:26 PT 11.0 SEC (9.9-13.0) 12/17/20 05:43 INR 1.0 (0.9-1.1) 12/17/20 05:43 APTT 38.5 SEC (24.1-38.0) H 12/16/20 14:14 PTT (Heparin Protocol) 45.8 SEC (53-77.9) L 12/18/20 14:12 D-Dimer 485 NG/ML 12/16/20 14:14 Antithrombin III Activ 108 % normal (80-135) 12/18/20 17:25 Sodium 139 mmol/L (135-145) 12/16/20 11:08 Potassium 4.0 mmol/L (3.3-5.1) 12/16/20 11:08 Chloride 105 mmol/L (96-108) 12/16/20 11:08 Carbon Dioxide 24 mmol/L (22-29) 12/16/20 11:08 Anion Gap 14 (12-20) 12/16/20 11:08 BUN 10 mg/dL (9-16) 12/16/20 11:08 Creatinine 0.84 mg/dL (0.5-1.4) 12/16/20 11:08 Estim Creat Clear Calc 100.5 12/16/20 11:08 Estimated GFR > 60 12/16/20 11:08 Random Glucose 116 mg/dL (60-115) H 12/16/20 11:08 Calcium 8.8 mg/dL (8.4-10.2) D 12/16/20 11:08 Total Bilirubin 0.6 mg/dL (0.0-1.0) 12/16/20 11:08 Direct Bilirubin 0.2 mg/dL (0.0-0.5) 12/16/20 11:08 AST 14 U/L (5-37) D 12/16/20 11:08 ALT 12 U/L (0-40) 12/16/20 11:08 Alkaline Phosphatase 84 U/L (39-117) D 12/16/20 11:08 C-Reactive Protein 1.41 mg/dL (< or = 0.50) H 12/18/20 17:25 B-Natriuretic Peptide 81 pg/mL (<100) 12/16/20 11:08 Total Protein 6.2 g/dL (6.5-8.0) L 12/16/20 11:08 Albumin 3.8 g/dL (3.5-5.0) 12/16/20 11:08 Lipase 14 U/L (8-78) 12/16/20 11:08 Urine Color YELLOW 12/17/20 09:15 Urine Appearance CLEAR 12/17/20 09:15 Urine pH 6.5 (5.0-8.0) 12/17/20 09:15 Ur Specific [place] 1.010 (1.005-1.025) 12/17/20 09:15 Urine Protein NEG MG/DL (NEG-TRACE) 12/17/20 09:15 Urine Glucose (UA) NEG MG/DL (NEG) 12/17/20 09:15 Urine Ketones NEG MG/DL (NEG) 12/17/20 09:15 Urine Blood NEG (NEG) 12/17/20 09:15 Urine Nitrite NEG (NEG) 12/17/20 09:15 Ur Leukocyte Esterase NEG (NEG) 12/17/20 09:15 Impressions Venous Duplex 12/16/20 10:54 IMPRESSION: LEFT LOWER EXTREMITY: Study POSITIVE for deep vein thrombosis. There is a thrombosis in the midportion of the posterior tibial vein. This is not clearly visualized on the recent prior studies, and appears acute. A short-term followup ultrasound can be obtained for reassessment as clinically warranted. RIGHT LOWER EXTREMITY: No DVT demonstrated in the right lower extremity. If the patient's symptoms persist, followup ultrasound in 5 days 7 days might be of value to exclude proximal propagation from a non-visualized calf vein. This critical result was discussed with Dr. Hodge at 12:45 PM on 12/16/2020 and it was ascertained that the content and urgency of the report was understood at the time of direct communication. Chest X-Ray 12/16/20 10:55 IMPRESSION: No acute cardiopulmonary findings. Discharge Plan Discharge Patient Disposition: Home, Self-Care Discharge Diagnosis: left posterior tibial vein DVT Referrals: Jose Cruz Miranda MD [Physician] - 2 Weeks Name,MD Memo [Primary Care Provider] - 1 Week Discharge Medications: New Eliquis 5 mg Tablet See Rx Instructions .ROUTE .COMPLEX Qty: 72 RF: 0 Continued nitroglycerin 0.4 mg tablet, sublingual 0.4 mg sublingual Q5M PRN (Reason: chest pain) Qty: 30 RF: 6 aspirin 81 mg tablet,delayed release (DR/EC) 81 mg PO DAILY RF: 0 amlodipine 10 mg tablet 10 mg PO DAILY RF: 0 rosuvastatin 40 mg tablet 40 mg PO BEDTIME RF: 0 oxycodone 10 mg Tablet 10 mg PO Q4H PRN (Reason: Moderate Pain (Scale Score 5-6)) RF: 0 divalproex 250 mg tablet extended release 24 hr 250 mg PO BEDTIME RF: 0 nicotine 14 mg/24 hr patch 24 hour 14 mg topical DAILY RF: 0 nicotine (polacrilex) 2 mg lozenge 2 - 4 mg PO Q1-2H PRN (Reason: Smoking Cessation) RF: 0 levetiracetam 750 mg tablet 1 tab PO BID RF: 0 ezetimibe 10 mg tablet 10 mg PO DAILY RF: 0 multivitamin Tablet 1 tab PO DAILY RF: 0 ranolazine 1,000 mg tablet extended release 12 hr 1,000 mg PO BID RF: 0 lisinopril 10 mg tablet 10 mg PO DAILY RF: 0 pantoprazole 40 mg tablet,delayed release (DR/EC) 40 mg PO DAILY RF: 0 metoprolol tartrate 50 mg tablet 75 mg PO BID 90 Days Qty: 270 RF: 4 Discharge Orders: Discharge Order (Routine); Ordered 12/19/20 Ordered By: John Ann Diet: advance to usual diet Activity on Discharge: As tolerated Stand Alone Forms: Patient Portal Discharge page Care Plan Goals: treatment of venous clot, prevention of complications Health Concerns: left posterior tibial DVT Plan of Treatment: take apixaban 10 mg twice daily x 6 days, then 5 mg twice daily; follow up with hematology Dr Jose Cruz Miranda ([address] [place] [id number], ) to discuss length of treatment see your primary care doctor in 1 week Assessment: as above Patient Instructions: Apixaban (By mouth), Deep Vein Thrombosis (ED)
--- NOTE | 2020-12-19 12:38 | MHC.CM.PN ---
Patient has been medically cleared for dc to home today, no services. Last IMM addressed on 12/17/20.
[2020-12-19 12:44] VITALS: RESP 18
[2020-12-19 13:06] LABS: PTT (LAC) Screen 37 sec (< OR = 40)
[2020-12-21 21:52] LABS: Protein C Activity 191 % (70-180); Protein S Activity rflx Tot&Fr 123 % (70-150)
== END 2020-12-19 13:40 | disposition home or self-care (01) | DRG 301 ==
LOC: HO.ED 15:25 → HO.EDOVER 17:42 → HO.IMC 19:36
PROVIDERS: Admitting Provider Hospitalist; Emergency Provider Emergency Medicine; PCP Internal Medicine Geriatric Medicine; Visit Provider Family Medicine
DX: I82.442 Acute embolism and thrombosis of left tibial vein (principal); I25.10 Atherosclerotic heart disease of native coronary artery without angina pectoris; K21.9 Gastro-esophageal reflux disease without esophagitis; Z95.0 Presence of cardiac pacemaker; E78.5 Hyperlipidemia, unspecified; G40.909 Epilepsy, unspecified, not intractable, without status epilepticus; F17.210 Nicotine dependence, cigarettes, uncomplicated; Z71.6 Tobacco abuse counseling; Z88.5 Allergy status to narcotic agent; Z79.01 Long term (current) use of anticoagulants; Z79.82 Long term (current) use of aspirin; Z79.891 Long term (current) use of opiate analgesic; Z79.899 Other long term (current) drug therapy
CPT/HCPCS: 36415; 71045; 80048; 80076; 81003; 81240; 81241; 83690; 83880; 85025; 85027; 85300; 85302; 85303; 85305; 85306; 85379; 85597; 85610; 85613; 85652; 85730; 86140; 93970; 93971; 97162; 99284; 99285; J1170

== ENCOUNTER → 2020-12-22 09:56 | Outpatient (BNVA) | payer MEDICARE, MEDICAID, SELFPAY | PROVIDERS: PCP Internal Medicine Geriatric Medicine; Visit Provider Orthopaedic Surgery | DX: I82.442 Acute embolism and thrombosis of left tibial vein (principal); M76.60 Achilles tendinitis, unspecified leg | CPT/HCPCS: 99212 ==

== ENCOUNTER → 2021-01-08 13:42 | Outpatient (BNVA) | payer MEDICARE, MEDICAID, SELFPAY | PROVIDERS: PCP Internal Medicine Geriatric Medicine; Referring Provider Internal Medicine Geriatric Medicine; Visit Provider Internal Medicine | DX: Z45.018 Encounter for adjustment and management of other part of cardiac pacemaker (principal); I25.10 Atherosclerotic heart disease of native coronary artery without angina pectoris; I10 Essential (primary) hypertension; I49.5 Sick sinus syndrome | CPT/HCPCS: 99212 ==

== ENCOUNTER 2021-01-12 09:46 | Outpatient (REF) | payer MEDICARE, MEDICAID, SELFPAY ==
[2021-01-12 11:04] LABS: Alanine Aminotransferase 13 U/L (0-40); Albumin Level 4.2 g/dL (3.5-5.0); Alkaline Phosphatase 86 U/L (39-117); Aspartate Amino Transferase 15 U/L (5-37); Bilirubin Direct 0.2 mg/dL (0.0-0.5); Bilirubin Total 0.4 mg/dL (0.0-1.0); Cholesterol 112 mg/dL; HDL Cholesterol 48 mg/dL; LDL Cholesterol Calculated 47 mg/dl; Total Protein 6.6 g/dL (6.5-8.0); Triglycerides 89 mg/dL
== END 2021-01-12 09:47 | disposition home or self-care (01) ==
LOC: HO.LAB 09:46
PROVIDERS: PCP Internal Medicine Geriatric Medicine; Visit Provider Internal Medicine
DX: I25.10 Atherosclerotic heart disease of native coronary artery without angina pectoris (principal)
CPT/HCPCS: 36415; 80061; 80076

== ENCOUNTER 2021-01-22 13:20 | Outpatient (REF) | payer MEDICARE, MEDICAID, SELFPAY | END 2021-01-22 13:21 | disposition home or self-care (01) | LOC: HO.LAB 13:20 | PROVIDERS: PCP Internal Medicine Geriatric Medicine; Visit Provider Internal Medicine | DX: Z20.822 Contact with and (suspected) exposure to COVID-19 (principal) | CPT/HCPCS: C9803; U0003; U0005 ==

== ENCOUNTER 2021-01-30 12:00 | Outpatient (RCR) | payer MEDICARE, MEDICAID, SELFPAY ==
--- NOTE | 2021-01-02 15:52 | MHC.PT.EP ---
[facility] [place] Office [place] Office [place] Office [address] Priya Diallo [address] [phone] F: [phone] F: [phone] F: [phone] F: [phone] Physical Therapy Plan of Care Date of Evaluation: Date of Surgery: N/A Diagnosis: left Achilles tendinitis Assessment: pt's signs and symptoms consistent w/ Achilles tendinitis. pt presents to physical therapy with pain, decreased range of motion, decreased strength, impaired functional mobility, impaired postural awareness, and gait deviations. pt is a good candidate for skilled PT due to age, potential remediation of impairments, typical disease/condition progression and prognosis, comorbidities, and motivation. pt would benefit from tailored strengthening and stretching exercise program, functional training, gait training, postural re-training, neuromuscular re-education, modalities as needed for pain, equipment safety demonstration. Frequency and Duration: The patient will be seen 2x/wk for 5 wks Short Term Goals: pt will be I w/ HEP to promote self-management of symptoms. pt will improve L DF to neutral to remediate gait impairments on even ground w/ LRAD. Molder Feeder Goals: pt will ascend and descend 15 stairs w/ LRAD using reciprocal pattern to promote ease in accessing bedroom on the second floor. pt will report <2/10 pain w/ ambulation >2500' w/ LRAD to promote return to community ambulation. Treatment Plan: Modalities to reduce pain, spasms and effusion. Manual therapy to restore motion and function. Therapeutic exercise to improve strength and flexibility. Neuromuscular re-education for posture and balance. Therapeutic activities to return to functional activities of daily living. Electronically signed by: Daphney Gottlieb PT, DPT Please sign and return to therapist. Thank you for your referral.
--- NOTE | 2021-02-20 11:27 | MHC.PT.DC ---
[facility] [place] [facility] [place] Office [place] Office [address] Priya Diallo [address] [phone] F: [phone] F: [phone] F: [phone] F: [phone] Physical Therapy Discharge Report Diagnosis: left Achilles tendinitis Date of Surgery: N/A Date of Evaluation: 01/02/21 Date of Discharge: 02/20/21 Treatments to Date: 6 Cancellations to Date: 4 No Shows to Date: 1 Discharge Status: Visit Non-compliance Discharge Summary: The patient has had poor attendance during this physical therapy plan of care. He missed his last scheduled appointment and has not called to reschedule in two weeks. He is discharged from this physical therapy plan of care. Electronically signed by: Daphney Gottlieb PT, DPT Please sign and return to therapist. Thank you for your referral.
== END 2021-02-20 11:27 | disposition home or self-care (01) ==
LOC: HO.PT 12:00
PROVIDERS: PCP Internal Medicine Geriatric Medicine; Visit Provider Orthopaedic Surgery
DX: M76.60 Achilles tendinitis, unspecified leg (principal)
CPT/HCPCS: 97110; 97112; 97150; 97162; 97530

== ENCOUNTER → 2021-02-06 09:57 | Outpatient (BNVA) | payer MEDICARE, MEDICAID, SELFPAY | PROVIDERS: PCP Internal Medicine Geriatric Medicine; Referring Provider Internal Medicine Geriatric Medicine; Visit Provider Surgery Vascular Surgery | DX: I82.442 Acute embolism and thrombosis of left tibial vein (principal); I73.9 Peripheral vascular disease, unspecified | CPT/HCPCS: 99202 ==

== ENCOUNTER 2021-03-02 13:29 | Outpatient (REF) | payer MEDICARE, MEDICAID, SELFPAY ==
--- NOTE | ~2021-03-02 | CT_ITS ---
EXAMINATION: CT CHEST SCREENING CLINICAL INFORMATION: Smoking history COMPARISON: Previous chest CT scans most recent April 2020 and chest x-ray December 2020 TECHNIQUE: Multidetector volumetric CT imaging of the chest is performed without contrast using low dose technique. Additional 2D coronal and sagittal reformatted images and axial 3D maximum intensity projection (MIP) images are generated on the CT workstation. This CT examination was performed using dose optimization techniques as appropriate, variously including the following: *Automated exposure control *Adjustment of mA and/or kV according to patient size (this includes techniques or standardized protocols for targeted exams where dose is matched to indication/reason for exam; i.e. extremities or head) *Use of iterative reconstruction technique DLP: 329 mGy-cm FINDINGS: LUNGS: There is biapical pleural and parenchymal scarring that is stable. There is evidence of mild paraseptal emphysema. There are small calcified and noncalcified pulmonary nodules that are stable. Largest is a 3 mm peripheral or subpleural left lower lobe nodule adjacent to the fissure axial image 267 series 4. No new pulmonary nodule is seen. No endobronchial or endotracheal lesion is seen. MEDIASTINUM: There is a left subclavian dual chamber pacemaker in satisfactory position. The heart does not appear enlarged. There is no coronary artery calcification. The thoracic aorta is normal in caliber. There are no enlarged hilar or mediastinal lymph nodes. The visualized thyroid gland is unremarkable. PLEURA: There is no pleural effusion. No pleural mass or thickening. AXILLA: No lymphadenopathy. UPPER ABDOMEN: There is small foci of air seen in the liver. This is peripheral location and more suggestive of portal vein air than pneumobilia. There is a new finding from previous CTA of the chest abdomen and pelvis April 2020. There is a calcification in the right lobe of the liver that is stable. The gallbladder has been removed. There is new biliary duct dilatation in the left lobe of the liver. There is a small duodenal diverticulum adjacent to the pancreas.. OSSEOUS STRUCTURES: There are degenerative changes of the spine. CT/CT lung screening IMPRESSION: Stable biapical pleural and parenchymal scarring. Mild paraseptal emphysema. Stable small calcified and noncalcified pulmonary nodules. Small foci of air in the peripheral liver. Peripheral location is more suggestive of portal vein air than pneumobilia. The gallbladder has been removed. Correlation with patient's clinical history i.e. does patient have history of ERCP and sphincterotomy is recommended. New left intrahepatic biliary duct dilatation. Follow-up CT of the abdomen should be considered. ASSESSMENT: Lung-RADS category 2S RECOMMENDATION: Annual low-dose chest CT follow-up recommended. CT of the abdomen and pelvis for questioned portal vein air in the liver. Findings will be communicated by the [facility] work flow dietitian research Staci Smith.
== END 2021-03-02 13:30 | disposition home or self-care (01) ==
LOC: HO.CT 13:29
PROVIDERS: Visit Provider Physician Assistant Medical
DX: Z12.2 Encounter for screening for malignant neoplasm of respiratory organs (principal); F17.210 Nicotine dependence, cigarettes, uncomplicated
CPT/HCPCS: 71271; G0296

== ENCOUNTER 2021-04-23 08:51 | Outpatient (REF) | payer MEDICARE, MEDICAID, SELFPAY ==
--- NOTE | ~2021-04-23 | US_ITS ---
EXAMINATION: US ABDOMEN COMPLETE CLINICAL INFORMATION: CT abdomen and pelvis with intravenous contrast only dated 03/16/2019. COMPARISON: Increased liver function tests TECHNIQUE: Previous CT of the abdomen and pelvis April 2020 FINDINGS: PANCREAS: Not well visualized due to bowel gas ABDOMINAL AORTA: The mid and distal segments are normal in caliber. Proximal abdominal aorta is not well visualized due to bowel gas. INFERIOR VENA CAVA: Visualized portions are normal. LIVER: Liver echotexture is slightly increased. There is mild intrahepatic biliary duct dilatation. There is there is a 7 mm calcification in the right lobe of the liver. No other focal liver lesion is seen. GALLBLADDER: Surgically absent. COMMON BILE DUCT: The visualized common bile duct is minimally dilated measuring 9 mm. The AV normal postcholecystectomy. RIGHT KIDNEY: Normal. No hydronephrosis. No renal calculi or focal parenchymal lesions. The kidney measures 12.0 cm in maximum dimension. LEFT KIDNEY: Normal. No hydronephrosis. No renal calculi or focal parenchymal lesions. The kidney measures 12.6 cm in maximum dimension. SPLEEN: Normal. The spleen measures 9.5 cm in maximum dimension. FREE FLUID: None. US/US abdomen complete IMPRESSION: Slightly echogenic liver. Mild intrahepatic and extrahepatic biliary duct dilatation. Post cholecystectomy. Limited visualization of the pancreas and aorta.
== END 2021-04-23 08:52 | disposition home or self-care (01) ==
LOC: HO.US 08:51
PROVIDERS: PCP Internal Medicine Geriatric Medicine; Visit Provider Internal Medicine Geriatric Medicine
DX: K83.8 Other specified diseases of biliary tract (principal)
CPT/HCPCS: 76700

== ENCOUNTER 2021-04-25 08:34 | Outpatient (REF) | payer MEDICARE, MEDICAID, SELFPAY ==
--- NOTE | ~2021-04-25 | CT_ITS ---
EXAMINATION: CT CERVICAL SPINE WITHOUT CONTRAST CLINICAL INFORMATION: 66-year-old with positive Lhermitte's sign. COMPARISON: 06/14/2020 CT TECHNIQUE: Volumetric CT imaging of the cervical spine was done from the skull base down to the T1-T2 level with multiplanar reformatted reconstructions. This CT examination was performed using dose optimization techniques as appropriate, variously including the following: *Automated exposure control *Adjustment of mA and/or kV according to patient size (this includes techniques or standardized protocols for targeted exams where dose is matched to indication/reason for exam; i.e. extremities or head) *Use of iterative reconstruction technique DLP: 468 mGy-cm FINDINGS: There is lordotic reversal centered at C5-C6, stable from previous exam, with 2 mm of anterolisthesis at C2-C3 and 3 mm of anterolisthesis at C4-C5, stable in appearance. Vertebral body heights are stable when compared to the previous study. There is zjyxxehn-er-oxxczx loss of disc space height at C6-C7 with degenerative endplate sclerosis and Schmorl's nodes with moderate anterior marginal spondylosis, stable in appearance. There is fwbdddru-if-fywrrd disc space height loss at C5-C6 with prominent anterior marginal spondylosis, stable in appearance with tiny Schmorl's nodes, unchanged. There is anterior marginal spondylosis at C4-C5 and C3-C4, stable in appearance with a Schmorl's node along the superior endplate of C4. No acute fractures or aggressive bone lesions are identified. C2-C3: No disc herniation. Minor left-sided and severe right-sided facet arthrosis is noted, with mild right-sided uncovertebral spurring, stable in appearance. There is ygyobcxc-au-ttfyzo right-sided neural foraminal stenosis, unchanged in appearance without significant canal stenosis. C3-C4: Minimal central disc protrusion is noted with mild posterior disc-osteophyte complex and mild flattening of the ventral dural sac, stable in appearance. No significant canal stenosis. Minor uncinate process spurring noted bilaterally with asoaewlb-xj-dcugsz left-sided and aczm-ty-uonbzaoh right-sided facet arthropathy, with facet arthropathy, progressed on the left since previous exam. There is moderate left-sided and hjvqpgts-vn-tncvix right-sided neural foraminal stenosis, largely unchanged without significant central spinal canal stenosis. C4-C5: Mild anterolisthesis, stable in appearance with posterior osteophytic ridging and mild flattening of the ventral thecal sac, stable in appearance without significant central spinal canal stenosis. There is moderate facet arthrosis bilaterally, slightly progressed on the left with mild uncinate process spurring bilaterally, unchanged in appearance. There is moderate bilateral neural foraminal stenosis, left more than right, largely unchanged. C5-C6: Broad-based posterior disc-osteophyte complex, similar to the previous study, with moderate flattening of the ventral dural sac without significant central spinal canal stenosis, stable in appearance. There is uncovertebral arthrosis, right more than left, with moderate right-sided facet arthropathy, largely unchanged. There is mild bilateral neural foraminal stenosis, stable in appearance. C6-C7: Posterior disc-osteophyte complex, similar to previous exam with mild flattening of the ventral dural sac. Note that the soft tissues within the canal and neural foramina at this level are partially obscured by artifact from the shoulders which makes it difficult to exclude cord compression at this level. There is mild central spinal canal stenosis. There is uncovertebral spurring bilaterally, similar to previous exam with minor facet arthropathy, with mild right-sided and xeblimnl-zt-swtosj left-sided neural foraminal stenosis, largely unchanged. C7-T1: Soft tissues in the canal and neural foramina are obscured at this level which makes it difficult to exclude cord impingement. There is posterolateral disc-osteophyte complex and uncovertebral spurring with moderate facet arthropathy bilaterally, similar in appearance to the previous exam with mild bilateral neural foraminal stenosis, stable in appearance, left more than right. No significant bony central spinal canal stenosis. The paravertebral soft tissues are unremarkable. There are atheromatous vascular calcifications of both carotid bulbs. CT/CT cervical spine wo con IMPRESSION: 1. Lordotic reversal centered at C5-C6, with mild degrees of anterolisthesis at C2-C3 and C4-C5, largely unchanged in appearance. 2. Multilevel DDD and spondylosis, stable in appearance and multilevel posterior disc-osteophyte complexes, uncovertebral and facet arthropathy, as described above, mostly similar to the previous study, with some progression of facet arthrosis on the left at multiple levels. 3. Mild central spinal canal stenosis at C6-C7 is unchanged. Note that due to artifacts at the lower cervical levels, cord impingement/compression cannot be excluded. MRI would be recommended to further assess this if possible. 4. Multilevel bilateral DJD, largely stable in appearance with multilevel bony neural foraminal stenosis bilaterally, unchanged.
== END 2021-04-25 08:35 | disposition home or self-care (01) ==
LOC: HO.CT 08:34
PROVIDERS: Visit Provider Psychiatry & Neurology Neurology
DX: R29.818 Other symptoms and signs involving the nervous system (principal)
CPT/HCPCS: 72125

== ENCOUNTER 2021-06-03 16:56 | Outpatient (REF) | payer MEDICARE, MEDICAID, SELFPAY | END 2021-06-03 16:57 | disposition home or self-care (01) | LOC: HO.HOSX 16:56 | PROVIDERS: Visit Provider Orthopaedic Surgery | DX: Z13.89 Encounter for screening for other disorder (principal) ==

== ENCOUNTER 2021-06-04 09:17 | Outpatient (REF) | payer MEDICARE, MEDICAID, SELFPAY ==
--- NOTE | ~2021-06-04 | XR_ITS ---
EXAMINATION: XR SHOULDER, RIGHT CLINICAL INFORMATION: Right shoulder pain COMPARISON: 04/14/2016 TECHNIQUE: AP external rotation, Grashey, scapular Y, and axillary views of the right shoulder. FINDINGS: There is no evidence of acute fracture or dislocation of the right shoulder. There has been progression in degenerative disease with narrowing of the glenohumeral joint and prominent spurring about the humeral head. Subchondral cyst formation is seen as well as sclerosis. There is again noted to be some degenerative narrowing of the acromioclavicular joint with ossification superior to it likely related to previous trauma. There appears to be some pleural thickening about the right lung apex. XR/XR shoulder RT min 2V IMPRESSION: Progression in degenerative change of the right shoulder involving the glenohumeral joint as described.
== END 2021-06-04 09:18 | disposition home or self-care (01) ==
LOC: HO.HOSX 09:17
PROVIDERS: Visit Provider Orthopaedic Surgery
DX: M19.011 Primary osteoarthritis, right shoulder (principal); M24.811 Other specific joint derangements of right shoulder, not elsewhere classified
CPT/HCPCS: 20610; 73030; 99212; J1100

== ENCOUNTER 2021-06-19 13:08 | Emergency (ER) | payer MEDICARE, MEDICAID, SELFPAY ==
--- NOTE | ~2021-06-19 | XR_ITS ---
EXAMINATION: XR CHEST CLINICAL INFORMATION: Chest pain COMPARISON: None TECHNIQUE: 2 views of the chest were obtained. FINDINGS: The lungs are well-expanded and clear of acute process. The heart size and pulmonary vascularity is normal. There are dual pacer electrodes in right atrium and right ventricle. No gross bony abnormality seen. XR/XR chest 2V IMPRESSION: Unremarkable chest exam. No change from 12/16/2020.
--- NOTE | 2021-06-19 13:29 | ECG_ITS ---
Test Reason : cp Blood Pressure : / mmHG Vent. Rate : 060 BPM Atrial Rate : 060 BPM P-R Int : 168 ms QRS Dur : 100 ms QT Int : 444 ms P-R-T Axes : 086 -15 020 degrees QTc Int : 444 ms Atrial-paced rhythm Cannot exclude old Inferior infarct (cited on or before 29-NOV-2017) Abnormal ECG When compared with ECG of 14-JUN-2020 17:01, Premature ventricular complexes are no longer Present Referred By: Ko Weeks Electronically Signed By:JADA RATLIFF
--- NOTE | 2021-06-19 13:31 | ED_ITS ---
HPI - Chest Pain General Chief Complaint: Chest Pain Stated Complaint: CP Time Seen by Provider: 06/19/21 13:21 Source: patient, EMS and old records reviewed History of Present Illness HPI narrative: Patient with a history of coronary artery disease status post adrian nts, with the last episode in 2019. He presents today with chest pain that has been intermittent for the past 2 days. Today it started approximately 9:45 a.m.. Worse with exertion. It is associated with dyspnea on exertion. Diaphoresis. Radiates to his left arm. States it feels like prior cardiac pain. Positive nausea without vomiting No recent fevers chills or illness. Patient has been vaccinated x3 against COVID. Type unknown. EMS found patient with stable vital signs and an EKG without obvious ST abnormalities. He has other history significant for deep vein thrombosis. He is on both Eliquis and aspirin. He has a history of chronic back pain for which he takes chronic oxycodone. Related Data Home Medications Medication Instructions Recorded Confirmed amlodipine 10 mg tablet 10 mg PO DAILY 04/25/20 06/19/21 aspirin 81 mg tablet,delayed 81 mg PO DAILY 04/25/20 06/19/21 release rosuvastatin 40 mg tablet 40 mg PO BEDTIME 04/25/20 06/19/21 oxycodone 10 mg tablet 10 mg PO Q4H PRN 04/26/20 06/19/21 divalproex 250 mg tablet,extended 250 mg PO BEDTIME 09/08/20 06/19/21 release 24 hr ezetimibe 10 mg tablet 10 mg PO DAILY 10/24/20 06/19/21 lisinopril 10 mg tablet 10 mg PO DAILY 10/24/20 06/19/21 multivitamin 1 tab PO DAILY 10/24/20 06/19/21 pantoprazole 40 mg tablet,delayed 40 mg PO BID 10/24/20 06/19/21 release ranolazine 1,000 mg 1,000 mg PO BID 10/24/20 06/19/21 tablet,extended release,12 hr nicotine 14 mg/24 hr daily 14 mg TOPICAL DAILY 12/14/20 06/19/21 transdermal patch apixaban 5 mg tablet (Eliquis) 5 mg PO BID tab 01/08/21 06/19/21 levetiracetam 500 mg tablet 500 mg PO BID 06/19/21 06/19/21 Previous Rx's Medication Instructions Recorded nitroglycerin 0.4 mg sublingual 0.4 mg SUBLINGUAL Q5M PRN #30 tab 10/23/20 tablet metoprolol tartrate 50 mg tablet 75 mg PO BID 90 Days #270 tab 10/24/20 Allergies Allergy/AdvReac Type Severity Reaction Status Date / Time bee pollen [BEE STINGS] Allergy Severe ANAPHYLAXIS Verified 06/04/21 09:31 indomethacin [Indocin] Allergy Severe anaphylaxis Verified 06/04/21 09:31 tramadol [Ultram] Allergy Severe anaphylaxis Verified 06/04/21 09:31 Review of Systems Constitutional: Comments: No fevers or chills Cardiovascular: Comments: Chest pain as reported Respiratory: Comments: Dyspnea on exertion without cough or sputum Gastrointestinal: Comments: Positive nausea without vomiting or diarrhea Musculoskeletal: Comments: No leg pain Integumentary/Breasts: Comments: No rash Neurologic: Comments: No weakness numbness or paresthesias PMFSH Past Medical History Medical History Atherosclerotic cardiovascular disease Brain bleed Brain lesion CAD (coronary artery disease) COVID-19 vaccine administered DVT (deep venous thrombosis) Esophagitis Essential hypertension GERD (gastroesophageal reflux disease) Headache History of chemotherapy Myocardial infarction Obstructive sleep apnea (~2018) On anticoagulant therapy Pacemaker (~05/2013) Personal history of nicotine dependence Psychotic disorder Seizures (~04/2020) Syncope Tremor Tubular adenoma of colon Surgical History History of appendectomy History of cardiac catheterization History of cholecystectomy History of colonoscopy (~09/2020) History of esophagogastroduodenoscopy (EGD) (~09/2020) History of permanent cardiac pacemaker placement (~05/2013) History of right knee surgery (~12/2013) History of spinal surgery History of total right hip replacement (~06/2012) Stented coronary artery Family History Family History Father Heavy cigarette smoker Throat cancer Mother Heart disease Social History Social History Household Members: Other Household Members Other:: shares house with a friend Housing: House Are you a primary urgent care nurse practitioner to a significant other at home: No Do you presently have visiting nurse or other home services: No (pt feels he will need it) Alcohol intake: never Patient Tobacco Use Status: Current everyday Tobacco user Tobacco use type: Cigarette Cigarettes Per Day: 8 Years Smoked: 25 years (age [age] then 49 to present, max 1.5ppd, now 1/2ppd) Use of substances other than those prescribed or required for medical reasons: No Advance Directives: Yes Advance Directives on File: Yes Advance Directives Date on File: 12/16/20 service: No Current occupational status: retired Physical Exam 2 Vital Signs: Vital Signs: Last Vital Signs Pulse 60 06/19/21 18:08 Resp 14 06/19/21 18:08 BP 140/101 H 06/19/21 18:08 Pulse Ox 94 06/19/21 18:08 BMI result Body Mass Index 29.9 Const: Other: Awake and alert. Appears mildly uncomfortable Chest: Other: Chest wall is nontender. Resp: Other: Clear and equal bilaterally without wheezes rales or rhonchi Cardio: Other: Regular rate and rhythm without murmurs rubs or gallops GI: Other: Soft nontender nondistended Skin: Other: Warm pink and dry without rash. Neuro: Other: Nonfocal neuro exam Course Course Course Narrative: Chest pain with known history of coronary artery disease. Treat with morphine and nitro paste. He has already received aspirin. EKG normal sinus paste rhythm without ischemic changes 2:57 p.m.. First troponin is 4.2. The patient still has pain. Will repeat morphine. 5:02 p.m.. Through tiger text, case discussed with his managed care nurse Dr. Mueller. He recommends another troponin and if still negative, can be discharged home with close follow-up. 6:43 p.m.. Third troponin is still negative. Patient is stable and safe for discharge home for close outpatient Cardiology follow-up MDM - Chest Pain Lab Data Result diagrams: 06/19/21 14:13 06/19/21 14:13 Labs: Lab Results 06/19/21 06/19/21 06/19/21 Range/Units 14:13 14:13 14:13 WBC 9.2 (4.8-10.8) X10*3/uL RBC 4.82 (4.60-5.80) X10*6/uL Hgb 15.1 (14.0-18.0) g/dl Hct 44.3 (42.0-52.0) % MCV 91.9 (80.0-98.0) fL MCH 31.3 (27.0-33.0) pg MCHC 34.1 (31.0-36.0) g/dl RDW 12.2 (11.0-16.0) % Plt Count 289 (160-400) X10*3/uL MPV 8.6 L (9.4-12.4) fL Immature Gran % (Auto) 0.3 (0.0-0.4) % Neut % (Auto) 68.2 (45-73) % Lymph % (Auto) 21.3 (20-40) % Sumner % (Auto) 8.4 (2-11) % Eos % (Auto) 1.3 (0-4) % Baso % (Auto) 0.5 (0-2) % Lymph # (Auto) 2.0 (1.2-4.9) X10*3/uL Sumner # (Auto) 0.8 (0.1-1.2) X10*3/uL Eos # (Auto) 0.1 (0.0-0.4) X10*3/uL Baso # (Auto) 0.1 (0.0-0.2) X10*3/uL Abs Immat Gran (auto) 0.03 (0.00-0.03) X10*3/uL Absolute Neuts (auto) 6.3 (2.0-8.3) x10*3/uL Absolute Nucleated RBC 0.000 (0.0-0.012) X10*3/uL Nucleated RBC % (auto) 0.0 (0.0-0.2) /100WBC D-Dimer High Sensitivty NG/ML Sodium 138 (135-145) mmol/L Potassium 4.3 (3.3-5.1) mmol/L Chloride 106 (96-108) mmol/L Carbon Dioxide 25 (22-29) mmol/L Anion Gap 11 L (12-20) BUN 20 H (9-16) mg/dL Creatinine 0.73 (0.5-1.4) mg/dL Estim Creat Clear Calc 115.3 Estimated GFR > 60 Random Glucose 84 (60-115) mg/dL Calcium 9.3 (8.4-10.2) mg/dL Total Bilirubin 0.4 (0.0-1.0) mg/dL AST 17 (5-37) U/L ALT 13 (0-40) U/L Alkaline Phosphatase 85 (39-117) U/L Troponin I High Sens 4.2 (<3.5-35.0) ng/L Total Protein 6.9 (6.5-8.0) g/dL Albumin 4.1 (3.5-5.0) g/dL COVID-19 (DOMENICO) (Negative) COVID-19 Clin Com 06/19/21 06/19/21 06/19/21 Range/Units 14:13 14:13 15:51 WBC (4.8-10.8) X10*3/uL RBC (4.60-5.80) X10*6/uL Hgb (14.0-18.0) g/dl Hct (42.0-52.0) % MCV (80.0-98.0) fL MCH (27.0-33.0) pg MCHC (31.0-36.0) g/dl RDW (11.0-16.0) % Plt Count (160-400) X10*3/uL MPV (9.4-12.4) fL Immature Gran % (Auto) (0.0-0.4) % Neut % (Auto) (45-73) % Lymph % (Auto) (20-40) % Sumner % (Auto) (2-11) % Eos % (Auto) (0-4) % Baso % (Auto) (0-2) % Lymph # (Auto) (1.2-4.9) X10*3/uL Sumner # (Auto) (0.1-1.2) X10*3/uL Eos # (Auto) (0.0-0.4) X10*3/uL Baso # (Auto) (0.0-0.2) X10*3/uL Abs Immat Gran (auto) (0.00-0.03) X10*3/uL Absolute Neuts (auto) (2.0-8.3) x10*3/uL Absolute Nucleated RBC (0.0-0.012) X10*3/uL Nucleated RBC % (auto) (0.0-0.2) /100WBC D-Dimer High Sensitivty < 150 NG/ML Sodium (135-145) mmol/L Potassium (3.3-5.1) mmol/L Chloride (96-108) mmol/L Carbon Dioxide (22-29) mmol/L Anion Gap (12-20) BUN (9-16) mg/dL Creatinine (0.5-1.4) mg/dL Estim Creat Clear Calc Estimated GFR Random Glucose (60-115) mg/dL Calcium (8.4-10.2) mg/dL Total Bilirubin (0.0-1.0) mg/dL AST (5-37) U/L ALT (0-40) U/L Alkaline Phosphatase (39-117) U/L Troponin I High Sens 3.7 (<3.5-35.0) ng/L Total Protein (6.5-8.0) g/dL Albumin (3.5-5.0) g/dL COVID-19 (DOMENICO) Negative (Negative) COVID-19 Clin Com See Note 06/19/21 Range/Units 18:05 WBC (4.8-10.8) X10*3/uL RBC (4.60-5.80) X10*6/uL Hgb (14.0-18.0) g/dl Hct (42.0-52.0) % MCV (80.0-98.0) fL MCH (27.0-33.0) pg MCHC (31.0-36.0) g/dl RDW (11.0-16.0) % Plt Count (160-400) X10*3/uL MPV (9.4-12.4) fL Immature Gran % (Auto) (0.0-0.4) % Neut % (Auto) (45-73) % Lymph % (Auto) (20-40) % Sumner % (Auto) (2-11) % Eos % (Auto) (0-4) % Baso % (Auto) (0-2) % Lymph # (Auto) (1.2-4.9) X10*3/uL Sumner # (Auto) (0.1-1.2) X10*3/uL Eos # (Auto) (0.0-0.4) X10*3/uL Baso # (Auto) (0.0-0.2) X10*3/uL Abs Immat Gran (auto) (0.00-0.03) X10*3/uL Absolute Neuts (auto) (2.0-8.3) x10*3/uL Absolute Nucleated RBC (0.0-0.012) X10*3/uL Nucleated RBC % (auto) (0.0-0.2) /100WBC D-Dimer High Sensitivty NG/ML Sodium (135-145) mmol/L Potassium (3.3-5.1) mmol/L Chloride (96-108) mmol/L Carbon Dioxide (22-29) mmol/L Anion Gap (12-20) BUN (9-16) mg/dL Creatinine (0.5-1.4) mg/dL Estim Creat Clear Calc Estimated GFR Random Glucose (60-115) mg/dL Calcium (8.4-10.2) mg/dL Total Bilirubin (0.0-1.0) mg/dL AST (5-37) U/L ALT (0-40) U/L Alkaline Phosphatase (39-117) U/L Troponin I High Sens 4.8 (<3.5-35.0) ng/L Total Protein (6.5-8.0) g/dL Albumin (3.5-5.0) g/dL COVID-19 (DOMENICO) (Negative) COVID-19 Clin Com Scores Heart Score History: -2- highly suspicious ECG: -0- normal Age: -2- > or = 65 Risk factory: -2- 3 or more risk factors or treated atherosclerosis Troponin: -0- < or = normal limit Score: 6 Risk: 16.6% Discharge Plan Discharge Clinical Impression: Chest pain Qualifiers: Chest pain type: unspecified Qualified Code(s): R07.9 - Chest pain, unspecified Patient Disposition: Home, Self-Care Instructions: Chest Pain (ED) Additional Instructions: Be sure to call your managed care nurse, Dr. Mueller, for follow-up. Call tomorrow. Continue all of your current medications including aspirin and Eliquis. Prescriptions: No Action nitroglycerin 0.4 mg tablet, sublingual 0.4 mg sublingual Q5M PRN (Reason: chest pain) Qty: 30 RF: 6 aspirin 81 mg tablet,delayed release (DR/EC) 81 mg PO DAILY RF: 0 amlodipine 10 mg tablet 10 mg PO DAILY RF: 0 rosuvastatin 40 mg tablet 40 mg PO BEDTIME RF: 0 oxycodone 10 mg Tablet 10 mg PO Q4H PRN (Reason: Moderate Pain (Scale Score 5-6)) RF: 0 divalproex 250 mg tablet extended release 24 hr 250 mg PO BEDTIME RF: 0 nicotine 14 mg/24 hr patch 24 hour 14 mg topical DAILY RF: 0 levetiracetam 500 mg Tablet 500 mg PO BID RF: 0 Eliquis 5 mg tablet 5 mg PO BID RF: 0 ezetimibe 10 mg tablet 10 mg PO DAILY RF: 0 multivitamin Tablet 1 tab PO DAILY RF: 0 ranolazine 1,000 mg tablet extended release 12 hr 1,000 mg PO BID RF: 0 lisinopril 10 mg tablet 10 mg PO DAILY RF: 0 pantoprazole 40 mg tablet,delayed release (DR/EC) 40 mg PO BID RF: 0 metoprolol tartrate 50 mg tablet 75 mg PO BID 90 Days Qty: 270 RF: 4 Referrals: Oren Mueller MD [Physician] - 2 days
[2021-06-19 13:32] VITALS: BP 143/82; BP 148/92; PULSE 63; PULSE 80; RESP 18; O2SAT 95; O2SAT 99; BMI 29.9
[2021-06-19] MEDS: Morphine Sulfate 4 MG/ML CARTRIDGE IVPUSH (14:18)
[2021-06-19] MEDS: Nitroglycerin 2 % Oint 1 GM Packet 1 INCH TRANSDERMA (14:19)
[2021-06-19 14:23] LABS: MANUAL DIFF FLAG NO
[2021-06-19 14:24] VITALS: BP 156/96; PULSE 61; RESP 14; O2SAT 96
[2021-06-19 14:25] LABS: Basophils Absolute Auto 0.1 X10*3/uL (0.0-0.2); Basophils Percent Auto 0.5 % (0-2); Eosinophils Absolute Auto 0.1 X10*3/uL (0.0-0.4); Eosinophils Percent Auto 1.3 % (0-4); Hematocrit 44.3 % (42.0-52.0); Hemoglobin 15.1 g/dl (14.0-18.0); Imm Gran Abs Auto 0.03 X10*3/uL (0.00-0.03); Imm Gran Pct Auto 0.3 % (0.0-0.4); Lymphocytes Percent Auto 21.3 % (20-40); Mean Corpuscular HGB Conc 34.1 g/dl (31.0-36.0); Mean Corpuscular Hemoglobin 31.3 pg (27.0-33.0); Mean Corpuscular Volume 91.9 fL (80.0-98.0); Mean Platelet Volume 8.6 fL (9.4-12.4); Monocytes Absolute Auto 0.8 X10*3/uL (0.1-1.2); Monocytes Percent Auto 8.4 % (2-11); Neutrophils Absolute Auto 6.3 x10*3/uL (2.0-8.3); Neutrophils Percent Auto 68.2 % (45-73); Platelet Count 289 X10*3/uL (160-400); Red Blood Count 4.82 X10*6/uL (4.60-5.80); Red Cell Distribution Width 12.2 % (11.0-16.0); White Blood Count 9.2 X10*3/uL (4.8-10.8)
[2021-06-19 14:36] LABS: D Dimer High Sensitivity < 150 NG/ML
[2021-06-19 14:41] LABS: COVID-19 Test Negative (Negative)
[2021-06-19 14:48] LABS: Troponin-I High Sensitivity 4.2 ng/L (<3.5-35.0)
[2021-06-19 14:54] LABS: Alanine Aminotransferase 13 U/L (0-40); Albumin Level 4.1 g/dL (3.5-5.0); Alkaline Phosphatase 85 U/L (39-117); Anion Gap 11 (12-20); Aspartate Amino Transferase 17 U/L (5-37); Bilirubin Total 0.4 mg/dL (0.0-1.0); Blood Urea Nitrogen 20 mg/dL (9-16); Calcium 9.3 mg/dL (8.4-10.2); Carbon Dioxide 25 mmol/L (22-29); Chloride 106 mmol/L (96-108); Creatinine Clr Calc Pharmacy 115.3; Estimated Glomerular Filt Rate > 60; Glucose Random 84 mg/dL (60-115); Potassium 4.3 mmol/L (3.3-5.1); Sodium 138 mmol/L (135-145); Total Protein 6.9 g/dL (6.5-8.0)
[2021-06-19] MEDS: Morphine Sulfate 10 MG/ML CARTRIDGE 6 MG IVPUSH (15:39)
[2021-06-19 16:21] LABS: Troponin-I High Sensitivity 3.7 ng/L (<3.5-35.0)
--- NOTE | 2021-06-19 16:54 | PHA.MEDREC ---
Pharmacy Consult ? Medication Reconciliation Pharmacy has completed the medication reconciliation. No remarkable issues. Antonieta Cameron RP
[2021-06-19 18:08] VITALS: BP 140/101; PULSE 60; RESP 14; O2SAT 94
[2021-06-19 18:32] LABS: Troponin-I High Sensitivity 4.8 ng/L (<3.5-35.0)
== END 2021-06-19 18:51 | disposition home or self-care (01) ==
PROVIDERS: Emergency Provider Emergency Medicine
DX: R07.9 Chest pain, unspecified (principal); R06.02 Shortness of breath; F17.210 Nicotine dependence, cigarettes, uncomplicated; Z20.822 Contact with and (suspected) exposure to COVID-19; Z71.6 Tobacco abuse counseling; Z79.899 Other long term (current) drug therapy
CPT/HCPCS: 36415; 71046; 80053; 84484; 85025; 85379; 87635; 93005; 96374; 96376; 99284; J2270

== ENCOUNTER 2021-06-22 08:44 | Outpatient (RCR) | payer MEDICARE, MEDICAID, SELFPAY ==
[2021-06-22 08:54] VITALS: BP 180/71; PULSE 71
--- NOTE | 2021-06-22 10:04 | MHC.PT.EP ---
[facility] [place] Office [place] Office [place] Office [address] Priya Diallo [address] [phone] F: [phone] F: [phone] F: [phone] F: [phone] Physical Therapy Plan of Care Date of Evaluation: Date of Surgery: N/A Diagnosis: right shoulder pain Assessment: Questionable labral integrity given pt's locking symptoms versus potential adhesive capsulitis given early resistance felt during passive range assessment. Unclear if pt was actively resisting or if true capsular end feel was felt. pt presents to physical therapy with pain, decreased range of motion, decreased strength, impaired functional mobility, and impaired postural awareness. pt is a good candidate for skilled PT due to age, potential remediation of impairments, typical disease/condition progression and prognosis, comorbidities, and motivation. pt would benefit from tailored strengthening and stretching exercise program, functional training, postural re-training, neuromuscular re-education, modalities as needed for pain, equipment safety demonstration. Frequency and Duration: The patient will be seen 2x/wk for 5 wks Short Term Goals: pt will be I w/ HEP to promote self-management of symptoms. pt improve R shoulder flexion by 10 degrees to promote ease in reaching for objects on higher shelves for meal prep. Senior Living Goals: pt will report a statistically significant improvement in self-reported outcome measure, SPADI, to promote return to PLOF. pt will demo R shoulder flexion and elbow flexion 5/5 strength to promote ease in lifting trash bags to promote return to work-related tasks. Treatment Plan: Modalities to reduce pain, spasms and effusion. Manual therapy to restore motion and function. Therapeutic exercise to improve strength and flexibility. Neuromuscular re-education for posture and balance. Therapeutic activities to return to functional activities of daily living. Electronically signed by: Daphney Gottlieb PT, DPT Please sign and return to therapist. Thank you for your referral.
--- NOTE | 2021-07-25 10:21 | MHC.PT.DC ---
[facility] [place] Office [place] Office [place] Office [address] Priya Diallo [address] [phone] F: [phone] F: [phone] F: [phone] F: [phone] Physical Therapy Discharge Report Diagnosis: right shoulder pain Date of Surgery: N/A Date of Evaluation: 06/22/21 Date of Discharge: 07/25/21 Treatments to Date: 1 Cancellations to Date: 0 No Shows to Date: 0 Discharge Status: Achieved Goals Improved Function Independent with HEP Patient Elected to Stop Discharge Summary: Pt CONTACTED DUE TO DECREASED ATTENDANCE AND CONFLICTING MEDICAL APPTS- HE NOTED HE HAS BEEN PERF HEP FROM HIS INITIAL EVAL AND HIS Rt SHOULDER FEELS MUCH BETTER- AGREED W DISCHARGING PT AT THIS TIME AND Pt TO CONTINUE W HIS HEP. Electronically signed by: Kalpana Bates,PT Please sign and return to therapist. Thank you for your referral.
== END 2021-07-25 10:22 | disposition home or self-care (01) ==
LOC: HO.PT 08:44
PROVIDERS: PCP Internal Medicine Geriatric Medicine; Visit Provider Orthopaedic Surgery
DX: M24.811 Other specific joint derangements of right shoulder, not elsewhere classified (principal); M19.011 Primary osteoarthritis, right shoulder
CPT/HCPCS: 97110; 97162

== ENCOUNTER → 2021-06-27 12:46 | Outpatient (BNVA) | payer MEDICARE, MEDICAID, SELFPAY | PROVIDERS: Referring Provider Internal Medicine Geriatric Medicine; Visit Provider Internal Medicine | DX: I25.10 Atherosclerotic heart disease of native coronary artery without angina pectoris (principal); I10 Essential (primary) hypertension; Z95.0 Presence of cardiac pacemaker | CPT/HCPCS: 99212 ==

== ENCOUNTER → 2021-07-24 13:50 | Outpatient (BNVA) | payer MEDICARE, MEDICAID, SELFPAY | PROVIDERS: PCP Internal Medicine Geriatric Medicine; Visit Provider Internal Medicine | DX: I25.10 Atherosclerotic heart disease of native coronary artery without angina pectoris (principal); I49.5 Sick sinus syndrome; I48.92 Unspecified atrial flutter; I10 Essential (primary) hypertension; Z79.01 Long term (current) use of anticoagulants; Z79.899 Other long term (current) drug therapy; I25.2 Old myocardial infarction | CPT/HCPCS: 99212 ==

== ENCOUNTER 2021-07-26 08:14 | Outpatient (REF) | payer MEDICARE, MEDICAID, SELFPAY ==
--- NOTE | ~2021-07-26 | US_ITS ---
EXAMINATION: COLOR-FLOW DUPLEX IMAGING OF THE BILATERAL LOWER EXTREMITY ARTERIAL SYSTEM. VELOCITY MEASUREMENTS THROUGHOUT THE FEMORAL ARTERIES WITH ANKLE-BRACHIAL PERIPHERAL ARTERIAL TESTING. CLINICAL INFORMATION: This is a 66-year-old male with peripheral vascular disease. History of hypertension, smoking. Interventional Radiologist: Sher Omalley M.D., F.S.I.R., FShimon.C.Darcie. TECHNIQUE: Color-flow duplex imaging with spectral waveform analysis was performed. Velocity measurements were obtained throughout the lower extremity arteries. Ankle-brachial indices were obtained. RIGHT FEMORAL RUNOFF VELOCITIES: The right common femoral artery measures 139 cm/s and triphasic. The right profunda femoral artery is 176 cm/s and is triphasic. Right proximal superficial femoral artery measures 103 cm/s and triphasic. Mid superficial femoral artery is 99 cm/s and triphasic. Distal right superficial femoral artery measures 88 cm/s and is triphasic. Right popliteal velocity measures 98 cm/s and is triphasic. The posterior tibial artery velocity measures 129 cm/s and was monophasic. The right ankle-brachial index is 1.22. The waveforms appear within normal limits. LEFT FEMORAL RUNOFF VELOCITIES: The left common femoral artery measures 105 cm/s and triphasic. The left profunda femoral artery is 109 cm/s and is triphasic. Left proximal superficial femoral artery measures 109 cm/s and triphasic. Mid superficial femoral artery is 105 cm/s and triphasic. Distal left superficial femoral artery measures 105 cm/s and is triphasic. Left popliteal velocity measures 66 cm/s and is triphasic. The posterior tibial artery velocity measures 116 cm/s and was monophasic. The left ankle-brachial index is 1.21. The waveforms appear within normal limits. US/US CONI complete IMPRESSION: 1. Normal bilateral resting peripheral arterial testing without evidence of hemodynamically significant stenosis.
--- NOTE | ~2021-07-26 | US_ITS ---
EXAMINATION: COLOR-FLOW DUPLEX IMAGING OF THE BILATERAL LOWER EXTREMITY ARTERIAL SYSTEM. VELOCITY MEASUREMENTS THROUGHOUT THE FEMORAL ARTERIES WITH ANKLE-BRACHIAL PERIPHERAL ARTERIAL TESTING. CLINICAL INFORMATION: This is a 66-year-old male with peripheral vascular disease. History of hypertension, smoking. Interventional Radiologist: Sher Omalley M.D., F.S.I.R., FShimon.C.Darcie. TECHNIQUE: Color-flow duplex imaging with spectral waveform analysis was performed. Velocity measurements were obtained throughout the lower extremity arteries. Ankle-brachial indices were obtained. RIGHT FEMORAL RUNOFF VELOCITIES: The right common femoral artery measures 139 cm/s and triphasic. The right profunda femoral artery is 176 cm/s and is triphasic. Right proximal superficial femoral artery measures 103 cm/s and triphasic. Mid superficial femoral artery is 99 cm/s and triphasic. Distal right superficial femoral artery measures 88 cm/s and is triphasic. Right popliteal velocity measures 98 cm/s and is triphasic. The posterior tibial artery velocity measures 129 cm/s and was monophasic. The right ankle-brachial index is 1.22. The waveforms appear within normal limits. LEFT FEMORAL RUNOFF VELOCITIES: The left common femoral artery measures 105 cm/s and triphasic. The left profunda femoral artery is 109 cm/s and is triphasic. Left proximal superficial femoral artery measures 109 cm/s and triphasic. Mid superficial femoral artery is 105 cm/s and triphasic. Distal left superficial femoral artery measures 105 cm/s and is triphasic. Left popliteal velocity measures 66 cm/s and is triphasic. The posterior tibial artery velocity measures 116 cm/s and was monophasic. The left ankle-brachial index is 1.21. The waveforms appear within normal limits. US/US arterial duplex LE BI IMPRESSION: 1. Normal bilateral resting peripheral arterial testing without evidence of hemodynamically significant stenosis.
== END 2021-07-26 08:15 | disposition home or self-care (01) ==
LOC: HO.US 08:14
PROVIDERS: Visit Provider Surgery Vascular Surgery
DX: I73.9 Peripheral vascular disease, unspecified (principal)
CPT/HCPCS: 93923; 93925

== ENCOUNTER 2021-10-01 12:44 | Outpatient (REF) | payer MEDICARE, MEDICAID, SELFPAY ==
--- NOTE | ~2021-10-01 | CT_ITS ---
EXAMINATION: CT LUMBAR SPINE WITHOUT CONTRAST CLINICAL INFORMATION: Lumbago with sciatica. COMPARISON: None TECHNIQUE: Axial 2 mm thin and reformatted 2 mm thin sagittal and coronal images of lumbar spine were obtained without contrast. This CT examination was performed using dose optimization techniques as appropriate, variously including the following: *Automated exposure control *Adjustment of mA and/or kV according to patient size (this includes techniques or standardized protocols for targeted exams where dose is matched to indication/reason for exam; i.e. extremities or head) *Use of iterative reconstruction technique DLP; 1668 mGy-cm FINDINGS: There is normal lumbar lordosis. The vertebral heights and alignment is normal. Mild loss of T11-T12, T12/L1 and L1-L2 disc heights. There is mild ventral spondylosis throughout lower dorsal and lumbar spine. The L1-L2, L2-L3 disc level appears unremarkable. The neural foramina are patent bilaterally. At L3-L4 disc level, there is minimal bulge without spinal canal stenosis. The neural foramina are patent bilaterally. At L4-L5 disc level, there is a broad-based disc diffuse bulge without spinal canal stenosis. The neural foramina are patent bilaterally. At L5-S1 disc level, there is minimal bulge without spinal canal stenosis. There is mild bilateral facet joint arthropathy. There is no lytic or sclerotic process seen. CT/CT lumbar spine wo con IMPRESSION: Minimal disc bulge L5-S1 disc level and a broad-based mild bulge L4-L5 disc levels but no spinal canal stenosis or neural foraminal narrowing. Ventral spondylosis. Mild bilateral L5-S1 and L4-L5 facet joint arthropathy.
== END 2021-10-01 12:45 | disposition home or self-care (01) ==
LOC: HO.CT 12:44
PROVIDERS: PCP Internal Medicine Geriatric Medicine; Visit Provider Nurse Practitioner Family
DX: M54.42 Lumbago with sciatica, left side (principal)
CPT/HCPCS: 72131

== ENCOUNTER → 2021-10-23 10:35 | Outpatient (BNVA) | payer MEDICARE, MEDICAID, SELFPAY | PROVIDERS: PCP Internal Medicine Geriatric Medicine; Visit Provider Surgery Vascular Surgery | DX: I82.442 Acute embolism and thrombosis of left tibial vein (principal) | CPT/HCPCS: 99212 ==

== ENCOUNTER → 2021-11-29 07:46 | Outpatient (BNV) | payer MEDICARE, MEDICAID, SELFPAY | PROVIDERS: PCP Internal Medicine Geriatric Medicine; Visit Provider Internal Medicine | DX: I82.409 Acute embolism and thrombosis of unspecified deep veins of unspecified lower extremity (principal) | CPT/HCPCS: 99204; 99213 ==

== ENCOUNTER → 2022-01-07 12:09 | Outpatient (BNVA) | payer MEDICARE, MEDICAID, SELFPAY | PROVIDERS: PCP Internal Medicine Geriatric Medicine; Referring Provider Internal Medicine Geriatric Medicine; Visit Provider Internal Medicine | DX: Z45.018 Encounter for adjustment and management of other part of cardiac pacemaker (principal); I25.10 Atherosclerotic heart disease of native coronary artery without angina pectoris; T82.110A Breakdown (mechanical) of cardiac electrode, initial encounter; I49.5 Sick sinus syndrome; I10 Essential (primary) hypertension; I48.92 Unspecified atrial flutter | CPT/HCPCS: 93280; 99212 ==

== ENCOUNTER → 2022-03-05 08:45 | Outpatient (BNVA) | payer MEDICARE, MEDICAID, SELFPAY | PROVIDERS: PCP Internal Medicine Geriatric Medicine; Referring Provider Internal Medicine Geriatric Medicine; Visit Provider Internal Medicine | DX: I25.10 Atherosclerotic heart disease of native coronary artery without angina pectoris (principal); I10 Essential (primary) hypertension; I49.5 Sick sinus syndrome; I48.92 Unspecified atrial flutter; T82.110A Breakdown (mechanical) of cardiac electrode, initial encounter; I25.2 Old myocardial infarction; Z86.718 Personal history of other venous thrombosis and embolism; Z79.01 Long term (current) use of anticoagulants; Z79.899 Other long term (current) drug therapy | CPT/HCPCS: 93005; 99212 ==

== ENCOUNTER 2022-06-13 18:08 | Observation (INO) | payer MEDICARE, MEDICAID, SELFPAY ==
--- NOTE | ~2022-06-13 | CT_ITS ---
EXAMINATION: CT CHEST WITHOUT CONTRAST CLINICAL INFORMATION: Hypoxia, choking COMPARISON: Plain film dated 06/19/2021, chest CT dated 03/02/2021 TECHNIQUE: Multidetector volumetric CT imaging of the chest was done. Axial MIP volume rendering provided. Sagittal and coronal reformatted images were obtained. This CT examination was performed using dose optimization techniques as appropriate, variously including the following: *Automated exposure control *Adjustment of mA and/or kV according to patient size (this includes techniques or standardized protocols for targeted exams where dose is matched to indication/reason for exam; i.e. extremities or head) *Use of iterative reconstruction technique DLP: 610 mGy-cm FINDINGS: The thoracic inlet is within normal limits. The axillary regions are comparable. Some prominent nodes are noted once again. The partially visualized upper abdominal structures are comparable to previous. Some biliary air is once again seen. Centrally there is no bulky adenopathy in the mediastinum. Mild coronary calcifications are noted. This is a noncontrast study but the hilar regions do not appear pathologically enlarged. Imaging of the lung marcial. Right lung; No significant infiltrate or effusion. Small areas of nodularity are felt to be stable. No suspicious increase. No new finding. Left lung; Again no significant infiltrate or effusion. Probable apical scarring. Stable small areas of nodularity. Review of the bone windows does not demonstrate suspicion for a bony lesion. CT/CT chest wo IV con IMPRESSION: No acute finding. No infiltrate or effusion is seen here. Some scattered bullous disease is noted and some scattered areas of nodularity which are felt to be stable. Consider low-dose noncontrast follow-up in one year for continued evaluation.
--- NOTE | ~2022-06-13 | CT_ITS ---
EXAMINATION: CT HEAD WITHOUT CONTRAST CLINICAL INFORMATION: Altered mental status. Prolonged hypoxia. COMPARISON: CTA head 06/14/2020. CT head 06/14/2020. TECHNIQUE: Contiguous axial imaging was performed from the skull base to vertex without intravenous administration of contrast. This CT examination was performed using dose optimization techniques as appropriate, variously including the following: *Automated exposure control *Adjustment of mA and/or kV according to patient size (this includes techniques or standardized protocols for targeted exams where dose is matched to indication/reason for exam; i.e. extremities or head) *Use of iterative reconstruction technique DLP: 600 mGy-cm FINDINGS: Stable amorphous approximately 0.7 cm hyperattenuating focus in the right occipital lobe (10:122).. There is no evidence of acute intracranial hemorrhage or edematous territorial infarction. A few foci of hypoattenuation in the periventricular and deep white matter are consistent with mild microangiopathy. Alfonso-white matter differentiation is preserved. Proportional prominence of the ventricles and sulcal spaces. No evidence for obstructive hydrocephalus. No abnormal mass effect or midline shift. No extra-axial fluid collections. The cerebellar tonsils are positioned at the level of the foramen magnum, similar to prior. No acute soft tissue or osseous abnormalities. Mucosal thickening of the paranasal sinuses. Right mastoid effusion. Middle ear cavities are clear. CT/CT head/brain wo IV con IMPRESSION: 1. No acute intracranial abnormality. 2. Unchanged hyperattenuating focus in the right occipital lobe. 3. Background of mild microangiopathy and generalized cerebral volume loss. 4. Right mastoid effusion.
[2022-06-13 18:11] VITALS: BP 114/85; BP 180/95; PULSE 114; PULSE 118; RESP 24; TEMP 36.3; O2SAT 92; O2SAT 97; BMI 30.5
--- NOTE | 2022-06-13 18:16 | ECG_ITS ---
Test Reason : HYPOXIC, CHOKING Blood Pressure : / mmHG Vent. Rate : 100 BPM Atrial Rate : 100 BPM P-R Int : 168 ms QRS Dur : 120 ms QT Int : 396 ms P-R-T Axes : 017 025 007 degrees QTc Int : 510 ms Normal sinus rhythm Possible Inferior infarct (cited on or before 29-NOV-2017) -could be normal variant Abnormal ECG When compared with ECG of 19-JUN-2021 14:11, Sinus rhythm has replaced Electronic atrial pacemaker Vent. rate has increased BY 40 BPM QT has lengthened Referred By: Olga Lim Electronically Signed By:JADA RATLIFF
[2022-06-13] MEDS: 0.9 % Sodium Chloride 1,000 ML 999 ML IVCONT (18:22)
[2022-06-13 19:06] LABS: Hematocrit 42.9 % (42.0-52.0); Hemoglobin 13.8 g/dl (14.0-18.0); Mean Corpuscular HGB Conc 32.2 g/dl (31.0-36.0); Mean Corpuscular Hemoglobin 30.1 pg (27.0-33.0); Mean Corpuscular Volume 93.7 fL (80.0-98.0); Mean Platelet Volume 8.4 fL (9.4-12.4); Platelet Count 368 X10*3/uL (160-400); Red Blood Count 4.58 X10*6/uL (4.60-5.80); Red Cell Distribution Width 12.5 % (11.0-16.0)
[2022-06-13 19:11] LABS: INTERNATIONAL NORM RATIO 0.9 (0.9-1.1); Prothrombin Time 10.8 SEC (10.0-13.1)
[2022-06-13 19:19] VITALS: BP 128/82; PULSE 90; RESP 10; O2SAT 94
[2022-06-13 19:22] LABS: COVID-19 Test Negative (Negative); IDNOW Serial# 6674DD1D
[2022-06-13 19:30] LABS: B Type Natriuretic Peptide 50 pg/mL (<100)
[2022-06-13 19:35] LABS: Troponin-I High Sensitivity 9.9 ng/L (<3.5-35.0)
--- OUTSIDE RECORDS SUMMARY | 2022-06-13 19:35 | XMS_ITS | Continuity of Care Document ---
:1955 Author Organization [facility] Address [address] [place] [address]- Care Team Providers Name Role Phone Name Memo ARREDONDO Primary Care Physician [place] [facility] [place] - 08/03/[address] [address]- Encounter Diagnosis ACS (acute coronary syndrome) (Final) - 08/03/20 Discharge Disposition: A-D/C Home Attending Physician: Rogelio Cox MD Admitting Physician: Timothy Rosario MD Referring Physician: Not on Staff, Referring MD Allergies, Adverse Reactions, Alerts Substance Reaction Severity Status indomethacin Shortness of breath Active methadone1 Drug-induced psychosis Active Ultram2, 3 Shortness of breath Active Bee Stings Active 1CAUSES PERSONALITY [id number] has tolerated morphine on previous admission in Jul [id number] severe reaction, can't breathe Immunizations Given and Recorded Vaccine Date Status Refusal Reason influenza virus vaccine, inactivated 04/03/18 Given influenza virus vaccine, inactivated 03/13/10 Given influenza virus vaccine, inactivated1 04/10/06 Given pneumococcal 23-valent vaccine 01/30/09 Given 1Admin Note: sanofi pasteur no contraindications Medications amlodipine 10 mg oral tablet 1 tablet = 10 mg, By Mouth, Daily, # 30 tablet, 0 Refills, Maintenance, 02/21/13 11:28:26 EDT, Tablet Start Date: 02/21/13 Stop Date: 03/23/13 Status: OrderedamLODIPine 10 mg oral tablet 10 mg, Tablet, By Mouth, 08/03/20 9:00:00 EST Start Date: 08/03/20 Stop Date: 08/03/20 Status: Completedaspirin 81 mg oral delayed release tablet 81 mg, By Mouth, Daily, # 30 tablet, Refills 2, Tot. Refills 2, Maintenance, 11/04/19 14:53:00 EDT, Route to Pharmacy Electronically, [facility], 181, cm, 11/04/19 13:39:00 EDT, Height, 88.3, kg, 10/31/19 0:37:00 EDT, Dry Weight Start Date: 11/04/19 Stop Date: 02/02/20 Status: OrderedBuPROPion (Eqv-Wellbutrin SR) 150 mg/12 hours oral tablet, extended release TAKE 1 TABLET BY MOUTH TWICE DAILY Start Date: 10/30/19 Status: OrderedKeppra 250 mg oral tablet 1 tablet = 250 mg, By Mouth, 2 times a day, 0 Refills, Maintenance, 08/03/20 14:42:00 EST, Tablet, Partial fill upon patient request if the prescription is for a schedule II opioid drug. Start Date: 08/03/20 Status: Orderedlisinopril 20 mg oral tablet 20 mg, Tablet, By Mouth, 08/03/20 9:00:00 EST Start Date: 08/03/20 Stop Date: 08/03/20 Status: Completedlisinopril 20 mg oral tablet 10 mg, 0.5, tablet, By Mouth, Daily, Refills 0, Maintenance, 08/03/20 14:41:00 EST, Partial fill upon patient request if the prescription is for a schedule II opioid drug. Start Date: 08/03/20 Status: OrderedLopressor 50 mg oral tablet 50 mg, Tablet, By Mouth, 08/03/20 9:00:00 EST Start Date: 08/03/20 Stop Date: 08/03/20 Status: CompletedMetoprolol Tartrate 25 mg oral tablet 2 tablet = 50 mg, By Mouth, 2 times a day Start Date: 07/18/17 Status: OrderedMultivitamin By Mouth, Daily, 0 Refills, Maintenance Start Date: 02/19/13 Status: Orderednicotine 21 mg/24 hr transdermal film, extended release 1 patch, Topically, Daily, in addition to varenicline, # 30 patch, 2 Refills, Acute 02/27/21 13:41:00 EDT, 02/28/20 13:40:00 EDT, Patch, [id number], 1 patch Topically Daily,Instr:in addition to varenicline, 180, cm, 02/05/20 8:46:00 E... Start Date: 02/28/20 Stop Date: 02/27/21 Status: Orderednicotine 4 mg oral transmucosal gum 1 each = 4 mg, Chew, Every 2 hours, PRN as needed for smoking cessation, in addition to varenicline and patch, as needed, # 160 each, 1 Refills, Acute 02/27/21 13:41:00 EDT, 02/28/20 13:40:00 EDT, Gum,[id number], 180, cm, 02/05/20 8:... Start Date: 02/28/20 Stop Date: 02/27/21 Status: Orderednitroglycerin 0.4 mg sublingual tablet 1 tablet = 0.4 mg, Sublingual, Every 5 minutes, 0 Refills, Maintenance, 02/19/13 23:23:47 EDT Start Date: 02/19/13 Status: OrderedOmeprazole = 40 mg, By Mouth, Daily, 0 Refills, Maintenance, 04/02/18 8:34:29 EDT Start Date: 04/02/18 Status: OrderedoxyCODONE 5 mg oral tablet 10 mg, 2, tablet, By Mouth, Every 6 hours, PRN, Refills 0, Tot. Refills 0, Maintenance, Pain , Moderate, 12/13/15 18:07:04 EDT Start Date: 12/13/15 Status: OrderedoxyCODONE 5 mg oral tablet 10 mg, Tablet, By Mouth, Every 6 hours, PRN for Pain , Severe, Routine, 08/03/20 8:39:00 EST Start Date: 08/03/20 Stop Date: 08/04/20 Status: DiscontinuedRanexa 1000 mg oral tablet, extended release 1 tablet = 1,000 mg, By Mouth, 2 times a day, # 60 tablet, 0 Refills, Maintenance, 04/02/18 7:31:13 EDT, ER Tablet Start Date: 04/02/18 Status: Orderedrosuvastatin 40 mg oral tablet = 40 mg, By Mouth, Daily at bedtime, # 30 tablet, 0 Refills, Maintenance, 05/27/17 12:37:06 EST, Tablet Start Date: 05/27/17 Stop Date: 06/26/17 Status: Orderedtopiramate 50 mg oral tablet 1 tablet = 50 mg, By Mouth, Daily, 0 Refills, Maintenance, 08/03/20 14:42:00 EST, Tablet, Partial fill upon patient request if the prescription is for a schedule II opioid drug. Start Date: 08/03/20 Status: OrderedZetia 10 mg oral tablet 1 tablet = 10 mg, By Mouth, Daily, # 30 tablet, 0 Refills, Maintenance, 10/05/16 22:49:13 EDT, Tablet Start Date: 10/05/16 Status: Ordered Problem List Condition Effective Dates Status Health Status Informant [D]Non-cardiac chest pain(Confirmed)1 Active Androgen deficiency(Confirmed) Active Chronic drug abuse(Confirmed) Active CK - Creatine kinase level Active elevated(Confirmed) DVT - Deep vein thrombosis(Confirmed) Active Erectile dysfunction(Confirmed) Active Failed back syndrome(Confirmed) Active Gastro-esophageal reflux Active disease(Confirmed) Gout(Confirmed)2 Active Hypercholesterolemia(Confirmed) Active Lumbar radiculopathy(Confirmed) Active Pain in right leg(Confirmed) Active Rotator cuff impingement syndrome Active right(Confirmed) 1negative cardiac cath July 20072right wrist with recent prednisone tx, 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 FINDINGS: LINES AND TUBES: Dual-lead left subclavian transvenous pacer/AICD wires are intact and unchanged. LUNGS AND PLEURA: Minimum scarring left lung base unchanged. Mild elevation of the right hemidiaphragm unchanged consistent with probable mild eventration. The lungs are otherwise clear of active parenchymal infiltrates and/or masses. No pulmonary vascularcongestion or interstitial edema is noted. No pleural effusion. No pneumothorax. HEART, MEDIASTINUM AND BÁRBARA: Heart is normal in size. Normal upper mediastinal and hilar contour. BONES AND SOFT TISSUES: Mild degenerative changes of the right shoulder. IMPRESSION: No significant interval change. No definite CHF seen. No parenchymal infiltrates are noted. WSN: [id number] Ordering Physician: Joanne Burch Dictated By: Phil Kilgore MD, V Dictated Date/Time: 08/03/20 8:33 am Reviewed By: Phil Kilgore MD, V Signed By: Phil Kilgore MD, V Signed Date/Time: 08/03/20 8:33 am Transcribed By: DEJA Transcribed Date/Time: 08/03/20 8:27 am Vital Signs Most recent to oldest 1 2 3 4 5 [Reference Range]: Height 180 cm 180 cm 180 cm (08/03/20 2:49 PM) (08/03/20 11:44 AM) (08/03/20 8:16 AM) Weight 93 kg (08/03/20 3:49 AM) Oxygen Saturation 97 % 97 % 95 % [94-100 %] (08/03/20 2:49 PM) (08/03/20 11:44 AM) (08/03/20 8:16 AM) Pulse Rate [55-90 59 bpm 60 bpm 60 bpm bpm] (08/03/20 2:49 PM) (08/03/20 11:44 AM) (08/03/20 9:31 AM) Body Mass Index 28.7 [18.5-24.99] *H* (08/03/20 3:49 AM) Blood Pressure 139/88 mm Hg 143/78 mm Hg 140/68 mm Hg 140/68 mm Hg 14 0/68 mm Hg [90-138/55-84 mm Hg] *H* *H* *H* *H* *H* (08/03/20 2:49 PM) (08/03/20 11:44 AM) (08/03/20 9:31 AM) ( 9:31 AM) (08/03/20 9:31 AM) Respiratory Rate 18 br/min 18 br/min 17 br/min [16-30 br/min] (08/03/20 2:49 PM) (08/03/20 11:44 AM) (08/03/20 10:31 AM ) Temperature 97.3 DegF 98.0 DegF 97.9 DegF [96.8-100.4 DegF] (08/03/20 2:49 PM) (08/03/20 11:44 AM) (08/03/20 8:16 AM) Mode of Delivery Room air Room air Room air (Oxygen) (08/03/20 2:49 PM) (08/03/20 11:44 AM) (08/03/20 8:16 AM) Blood pressure sites Arm, right Arm, right Arm, right (08/03/20 2:49 PM) (08/03/20 11:44 AM) (08/03/20 8:16 AM) Temperature Route Oral Oral Oral (08/03/20 2:49 PM) (08/03/20 11:44 AM) (08/03/20 8:16 AM) Dry Weight 93 kg (08/03/20 3:49 AM) Social History Social History Type Response Smoking Status Current some day smoker; Typ e: Cigarettes; Other: 3 cigarettes per week; entered on: 04/02/18 Sex
--- OUTSIDE RECORDS SUMMARY | 2022-06-13 19:35 | XMS_ITS | Continuity of Care Document ---
:1955 Author Organization [facility] Address [address] [facility], 3rd Floor, [address] [place] [address]- Care Team Providers Name Role Phone Name Memo ARREDONDO Primary Care Physician [place] [facility] [place]20 [facility] [address] [facility], [address], [address] [place] [address] Allergies, Adverse Reactions, Alerts Substance Reaction Severity Status indomethacin Shortness of breath Active methadone1 Drug-induced psychosis Active Ultram2, 3 Shortness of breath Active Bee Stings Active 1CAUSES PERSONALITY [id number] has tolerated morphine on previous admission in Jul [id number] severe reaction, can't breathe Immunizations Given and [...] Start Date: 02/21/13 Stop Date: 03/23/13 Status: Orderedaspirin 81 mg oral delayed release tablet 81 mg, By Mouth, Daily, # 30 tablet, Refills 2, Tot. Refills 2, Maintenance, 11/04/19 14:53:00 EDT, Route to Pharmacy Electronically, [facility], 181, cm, 11/04/19 13:39:00 [...] 08/03/20 Status: Orderedlisinopril 20 mg oral tablet 10 mg, 0.5, tablet, By Mouth, Daily, Refills 0, Maintenance, 08/03/20 14:41:00 EST, Partial fill upon patient request if the prescription is for a schedule II opioid drug. Start Date: 08/03/20 Status: OrderedMetoprolol Tartrate 25 mg oral tablet 2 tablet = 50 mg, By Mouth, 2 times a day Start Date: 07/18/17 Status: OrderedMultivitamin By Mouth, Daily, 0 Refills, Maintenance Start Date: 02/19/13 Status: Orderednicotine 21 mg/24 hr transdermal film, extended release 1 patch, Topically, Daily, in addition to varenicline, # 30 patch, 2 Refills, Acute 02/27/21 13:41:00 EDT, 02/28/20 13:40:00 EDT, Patch, [facility][id number], 1 patch Topically Daily,Instr:in addition to varenicline, 180, cm, 02/05/20 8:46:00 E... Start Date: 02/28/20 Stop Date: 02/27/21 Status: Orderednicotine 4 mg oral transmucosal gum 1 each = 4 mg, Chew, Every 2 hours, PRN as needed for smoking cessation, in addition to varenicline and patch, as needed, # 160 each, 1 Refills, Acute 02/27/21 13:41:00 EDT, 02/28/20 13:40:00 EDT, Gum,[facility] #[id number], 180, cm, 02/05/20 8:... 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
--- OUTSIDE RECORDS SUMMARY | 2022-06-13 19:35 | XMS_ITS ---
:1955 Author Name Name, Memo Care Team Providers Name Role Phone Name, Memo Unavailable Unavailable PROBLEMS Type Condition ICD9-CM GCX84-HE Onset Condition SNOMED Cod e Code Code Dates Status Problem Atherosclerosis of I70.203 Active 1 [id number] [place] artery of both lower extremities, with unspecified presence of clinical manifestation ALLERGIES Substance Reaction Event Type Date Status Indocin Unknown Drug Allergy May, Active Ultram Unknown Drug Allergy May, Active Lovenox Unknown Drug Allergy May, Active Bee Sting Unknown Drug Allergy May, Active ENCOUNTERS Encounter Location Date Diagnosis [address] May, [place] eros[place] of [place] [facility] [place] artery of both lower [address] extremities, wit h unspecified pres ence of clinical manifes tation I70.203 ; Ingrow ing nail L60.0 ; Tinea un guium B35.1 ; Pain in right toe(s) M79.674 a nd Pain in left toe(s) M79. 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 and Short Achilles tendon (acquired ), left ankle M67.02 [facility] [address] [facility] Jan, Abs cess of toe, left [facility] [place], [place] L02.612 [place] [address] left toe L03.032 IMMUNIZATIONS Vaccine Route Administration Date Status COVID-19 Moderna Vaccine Unknown October 17, 2021 Adminis tered SOCIAL HISTORY Qualifiers Date Former Smoker REASON FOR REFERRAL FUNCTIONAL STATUS PLAN OF CARE Activity Details Follow Up prn Reason: Future Appointment Provider Name:Rolly Herman , 2022-08-27 09:15:00 AM, [address] [facility] [place], [address], Pending Test X ray : Foot, left 3V Future/Pending Procedure [id number] NAIL, 6 OR MOR E Future/Pending Procedure 41883-Fepeqwte Plate Future/Pending Procedure 12093-DITT SKIN LESIONS, 2 T O 4 Future/Pending Procedure [id number]-UTQQQRK NAIL, 6 OR MOR E Future/Pending Procedure 88568- Debride <25 sq cm Future/Pending Procedure 64192 I&D ABSCESS- SIMPLE,SI NGLE VITAL SIGNS Height 5 ft 11 in in 2022-05-28 Weight 204 lbs 2022-05-28 BMI 28.45 kg/m2 2022-05-28 Blood pressure systolic 120 mm Hg 2022-05-28 Blood pressure diastolic 80 mm Hg 2022-05-28 MEDICATIONS Medication Instructions Dosage Frequency Start End Duration Statu s Date Date Metoprolol Orally Twice a 1 tablet 12h 30 day(s) Act steve Tartrate 50 MG day with food Lisinopril 10 MG Orally Once a 1 tablet 24h 30 day(s ) Active day Aspirin 81 MG Orally Once a 1 tablet 24h 30 day(s) A ctive day Divalproex Orally Once a 1 tablet 24h 30 day(s) Acti ve Sodium 250 MG day eliquis 5 mg Active Multivitamin - Orally Once a 1 tablet 24h 30 day(s) Active day Ezetimibe 10 MG Orally Once a 1 tablet 24h 30 day(s) Active day Rosuvastatin Orally Once a 1 tablet 24h 30 day(s) Ac tive Calcium 40 MG day oxyCODONE HCl 10 Orally every 6 1 tablet 6h Active MG hrs as needed amLODIPine Orally Once a 1 tablet 24h 30 day(s) Acti ve Besylate 10 MG day Pantoprazole Orally Once a 1 tablet 24h 30 day(s) Ac tive Sodium 40 MG day Ranolazine ER Orally Twice a 1 tablet 12h 30 day(s) Active 1000 MG day Antibiotic Not-Takin g PROCEDURES Procedure Date Ordered Result Body Site TRIM SKIN LESIONS, 2 TO 4 May 28, 2022 X-RAY EXAM OF LEFT FOOT 3V Jan 23, 2022 Avulsion Plate May 28, 2022 DRAINAGE OF SKIN ABSCESS Jan 08, 2022 DEBRIDE NAIL, 6 OR MORE May 28, 2022 DEBRIDE NAIL, 6 OR MORE Mar 05, 2022 ACTIVE WOUND CARE/20 CM OR < Jan 23, 2022 RESULTS No Results REASON FOR VISIT Insurance Providers [facility] Member Patient Patient Patient Patient Patient Subscriber Subscriber Subscriber Group Insurance Plan Plan Plan Plan ID Relationship Address Phone Name Date of ID Name Date of No Type Insurance Insurance Insurance Coverage to Subscriber Address Phone Name Dates Medicare National [id number] Medicare self Peter [id number] [facility] [address] [facility] [address] [place] [address] MEDICAL (GENERAL) HISTORY Type Description Date Medical History Angina Medical History Arthritis, osteo Medical History Back,Hip,and Knee pain Medical History Gall bladder problems Medical History Gout Medical History Heart disease Medical History High blood pressure Medical History nerve disorder Medical History Reflux ( GERD) Medical History Stroke Medical History Myocardial infarction Medical History Deep vein thrombosis Medical History Sleep apnea Medical History Seizures Medical History Gasteritis Medical History Headaches Medical History tremors Medical History Pacemaker Surgical History back surgery x17 Surgical History left knee replacement Surgical History hip surgery, right 01/06/2017 Surgical History gall bladder Surgical History Heart stent Surgical History DVT x3 left leg Surgical History tumor Surgical History cardiac catheterization 01/2020 Surgical History lumbosacral spine surgery 09/04/2015 Hospitalization History Coronary artery disease involving na tive coronary artery of [place] heart with unstable ang marco antonio pectoris Hospitalization History Cardiac Cath and Stent Hospitalization History [facility] painful L migel Ingrow n? given 01/08/22 antiboitics Hospitalization History [facility]Drain left kn ee 3x between 2021 5 weeks
--- OUTSIDE RECORDS SUMMARY | 2022-06-13 19:35 | XMS_ITS ---
:1955 Author Organization [facility], [facility] Address [address] [place] [address] Care Team Providers Name Role Phone Jose Cruz Miranda Unavailable Unavailable PROBLEMS Type Condition ICD9-CM AUB87-BF Onset Condition SNOMED Cod e Code Code Dates Status Problem Pacemaker Z95.0 Active [id number] Problem Myocardial I21.9 Active 06737026 infarction, unspecified CT type, unspecified artery Problem GERD K21.9 Active 075700873 (gastroesophageal reflux disease) Problem Primary M16.0 Active 341477962 osteoarthritis of both hips Problem Syncope R55 Active 836232152 Problem Atherosclerotic I25.119 Active 1950 [address] heart disease of [place] coronary artery with unspecified angina pectoris Problem Tubular adenoma of D12.6 Active 4 09215179 colon Problem HTN (hypertension) I10 Active 3 3596561 Problem Acute deep vein I82.4Y2 Active thrombosis (DVT) of proximal vein of left lower extremity Problem Tobacco dependence F17.200 Active 8 7736177 Problem Primary M17.12 Active 490833830 osteoarthritis of left knee ALLERGIES Substance Reaction Event Type Date Status Bee Sting Unknown Drug Allergy Mar, Active Pollen Unknown Drug Allergy Mar, Active Tramadol Unknown Drug Allergy Mar, Active Indocin Unknown Drug Allergy Mar, Active ENCOUNTERS Encounter Location Date Diagnosis [facility] III, MD [address] [place] [address] DR JEFFREY Jan, Acute deep vein thrombosis [address] ([place] [address] left lower extre mity I82.4Y2 ; HTN (hypertens ion) I10 ; GERD (gastroesop hageal reflux disease) K21.9 ; Pacemaker Z95.0 and Tobacco dependence F17.2 00 [facility] III, MD [address] [place] [address] DR JEFFREY Dec, Acute deep vein thrombosis [address] [place] [address] left lower extre mity I82.4Y2 ; Tobacco depend ence F17.200 ; Primary osteoa rthritis of left knee M17.12 ; Primary osteoarthritis o f both hips M16.0 ; Atherosc lerotic heart disease of [place] coronary artery with unspecified yaw na pectoris I25.119 ; HTN (h ypertension) I10 ; Pacemaker Z95.0 and Myocardial infar ction, unspecified CT t ype, unspecified anant ry I21.9 IMMUNIZATIONS No Known Immunizations SOCIAL HISTORY Qualifiers Date Current Smoker REASON FOR REFERRAL FUNCTIONAL STATUS PLAN OF CARE Activity Details Follow Up 6 Weeks Reason:ov VITAL SIGNS Height 67 in 2021-01-12 Height 67 in 2020-12-21 Weight 210 lbs 2021-01-12 Weight 212 lbs 2020-12-21 BMI 32.89 kg/m2 2021-01-12 BMI 33.20 kg/m2 2020-12-21 Heart Rate 70 /min 2021-01-12 Heart Rate 61 /min 2020-12-21 Temperature 96.3 degrees Fahrenheit 2021-01-12 Temperature 96.5 degrees Fahrenheit 2020-12-21 Blood pressure systolic 112 mm Hg 2021-01-12 Blood pressure diastolic 70 mm Hg 2021-01-12 MEDICATIONS Medication Instructions Dosage Frequency Start End Duration Statu s Date Lisinopril 10 MG Orally Once a 1 tablet 24h Active day Nitroglycerin 0.4 Sublingual Three as directed 8h Active MG times a day Heparin Sodium Injection every as directed 12h Active (Porcine) 5000 12 hrs UNIT/ML levETIRAcetam 250 Orally every 12 1 tablet 12h Active MG hrs Omeprazole 40 MG Orally Once a as directed 24h Active day Divalproex Sodium Orally Twice a 1 tablet 12h Active 250 MG day Acetaminophen 325 Orally every 6 1 capsule 6h Active MG hrs as needed Ezetimibe 10 MG Orally Once a 1 tablet 24h A ctive day amLODIPine Orally Once a 1 tablet 24h Active Besylate 10 MG day Atorvastatin Orally Once a 1 tablet 24h Acti ve Calcium 20 MG day Aspirin 81 81 MG Orally Once a 1 tablet 24h Active day Eliquis 5 MG as directed Active Metoprolol Orally Twice a as directed 12h Ac tive Tartrate 25 MG day PROCEDURES No Known procedures RESULTS No Results REASON FOR VISIT Follow up, Tubular adenoma of colon, Acute DVT, Follow up, Leg pain, DVT left leg Insurance Providers [facility] Member Patient Patient Patient Patient Patient Subscriber Subscriber Subscriber Group Insurance Plan Plan Plan Plan ID Relationship Address Phone Name Date of ID Name Date of No Type Insurance Insurance Insurance Coverage to Subscriber Address Phone Name Dates MEDICARE [phone] MEDICARE self Myles [id number] [id number] [place] [address] MEDICAID [id number] MEDICAID self Myles [id number] [address] [id number]
--- OUTSIDE RECORDS SUMMARY | 2022-06-13 19:35 | XMS_ITS | Continuity of Care Document ---
:1955 Author Organization [facility] Address [address] [place] [phone]- Care Team Providers Name Role Phone Name Memo ARREDONDO Primary Care Physician Encounter [facility] [place] Date(s): 10/30/19 - 11/04/[address] [address]- [facility] Encounter Diagnosis Chest pain (Final) - 10/30/19 Discharge Disposition: A-D/C Home Attending Physician: Aric Kelly MD Admitting Physician: Timothy Rosario MD Referring Physician: Not on Staff, Referring MD Allergies, Adverse Reactions, Alerts Substance Reaction Severity Status indomethacin Shortness of breath Active methadone1 Drug-induced psychosis Active Ultram2, 3 Shortness of breath Active Bee Stings Active 1CAUSES PERSONALITY [id number] has tolerated morphine on previous admission in Jul [id number] severe reaction, can't breathe Immunizations Given and [...] 11/04/19 14:53:00 EDT, Route to Pharmacy Electronically, [facility], 181, cm, 11/04/19 13:39:00 EDT, Height, 88.3, kg, 10/31/19 0:37:00 EDT, Dry Weight Start Date: 11/04/19 Stop Date: 02/02/20 Status: OrderedBuPROPion (Eqv-Wellbutrin SR) 150 mg/12 hours oral tablet, extended release TAKE 1 TABLET BY MOUTH TWICE DAILY Start Date: 10/30/19 Status: OrderedLisinopril = 20 mg, By Mouth, Daily, 0 Refills, Maintenance, 05/24/17 16:52:02 EST Start Date: 05/24/17 Status: OrderedMetoprolol Tartrate 25 mg oral tablet 2 tablet = 50 mg, By Mouth, 2 times a day Start Date: 07/18/17 Status: OrderedMultivitamin By Mouth, Daily, 0 Refills, Maintenance Start Date: 02/19/13 Status: OrderedNicoderm C-Q 7 mg/24 hr transdermal film, extended release 1 patch, Topically, Daily, # 30 patch, 1 Refills, Acute 12/07/19 12:00:00 EDT, 11/04/19 14:53:00 EDT, Patch, [facility], 181, cm, 11/04/19 13:39:00 EDT, Height, 88.3, kg, 10/31/19 0:37:00EDT, Dry Weight Start Date: 11/04/19 Stop Date: 12/07/19 Status: Orderednitroglycerin 0.4 mg sublingual tablet 1 [...] 12/13/15 18:07:04 EDT Start Date: 12/13/15 Status: OrderedPlavix 75 mg oral tablet 75 mg, 1, tablet, By Mouth, Daily, # 30 tablet, Refills 0, Maintenance, 08/04/19 15:54:00 EST Start Date: 08/04/19 Status: OrderedRanexa 1000 mg oral tablet, extended [...] Start Date: 05/27/17 Stop Date: 06/26/17 Status: OrderedZetia 10 mg oral tablet 1 [...] [id number] wrist with recent prednisone tx, 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 speaking clear full sentences, mask in place, DODSON freely, ambulatory with slow gait, appears uncomfortable. par } COMPARISON: X-ray from 10/30/2019. FINDINGS: LINES AND TUBES: Dual-lead left subclavian pacer/AICD wires are intact. LUNGS AND PLEURA: Right lung remains clear. There is minimal opacity seen along the left heart border near the left costophrenic angle which is new and could represent a small focus of developing pneumonia or atelectasis. No pleural effusion. No pneumothorax. HEART, MEDIASTINUM AND BÁRBARA: Heart is normal in size. Normal mediastinal and hilar contour. BONES AND SOFT TISSUES: No acute abnormality. IMPRESSION: New small infiltrate along the left lateral lung base which may represent a developing pneumonia or focus of atelectasis. No x-ray evidence for CHF. A [place] message has been communicated via the [employer] system on 11/03/2019 10:37 PM, Message ID [id number]. WSN: [id number] Ordering Physician: Ike Contreras Dictated By: Elfego Rey MD Dictated Date/Time: 11/03/19 10:37 p Reviewed By: Elfego Rey MD Signed By: Elfego Rey MD Signed Date/Time: 11/03/19 10:37 pm Transcribed By: DEJA Transcribed Date/Time: 11/03/19 10:35 pm Exam Date Time Procedure Performing Provider Status 10/30/19 7:42 PM Chest 2 Views Frontal and Lat Shayla Hart; Nehal (Verified) Notes:(Chest 2 Views Frontal and Lat) Reason For Exam: Shortness of Breath RESULT: Chest 2 Views Frontal and Lat Chest 2 Views Frontal and Lat Refer to EMR; Reason: Shortness of Breath; Clinical Question(s): CHF; Hx of Present Illness: pt reports mid chest pain x2-3 days, sts the last two days it has been constant. sts CP worsened today with activity. took 4 nitro over the last 2hrs with no relief. reports assoc. dizziness and nausea. deniesfevers, cough, body aches.; Other Objective Findings: pt is a ox4, pwd, resp even and non-labored COMPARISON: Multiple priors, most recent 08/04/2019 FINDINGS: LINES AND TUBES: Dual-lead pacemaker with battery pack in the left upper chest wall LUNGS AND PLEURA: No focal consolidation. Normal pulmonary vascularity. No evidence of pulmonary edema. No pleural effusion. No pneumothorax. HEART, MEDIASTINUM AND BÁRBARA: Heart is normal in size. Normal mediastinal and hilar contour. BONES AND SOFT TISSUES: No acute abnormality. IMPRESSION: No radiographic evidence of acute cardiopulmonary disease. WSN: [id number] Ordering Physician: Nan Bateman Dictated By: Demetrice Blankenship MD Dictated Date/Time: 10/30/19 7:45 pm Reviewed By: Demetrice Blankenship MD Signed By: Demetrice Blankenship MD Signed Date/Time: 10/30/19 7:45 pm Transcribed By: DEJA Transcribed Date/Time: 10/30/19 7:43 pm Vital Signs Most recent to oldest 1 2 3 4 [Reference Range]: Height 181 cm 181 cm 181 cm (11/04/19 1:39 PM) (11/04/19 7:27 AM) (11/04/19 1:40 AM) Weight 89.8 kg 91.2 kg 91.6 kg (11/04/19 7:07 AM) (11/02/19 6:29 AM) (11/01/19 7:05 PM) Oxygen Saturation 96 % 95 % 96 % [94-100 %] (11/04/19 1:39 PM) (11/04/19 7:27 AM) (11/04/19 1:40 AM) Pulse Rate [55-90 bpm] 59 bpm 71 bpm 71 bpm (11/04/19 1:39 PM) (11/04/19 8:51 AM) (11/04/19 7:27 AM) Body Mass Index 27.96 [18.5-24.99] *H* (10/30/19 11:57 PM) Blood Pressure 117/72 mm Hg 131/73 mm Hg 131/73 mm Hg 131/73 mm Hg [90-138/55-84 mm Hg] (11/04/19 1:39 PM) (11/04/19 8:52 AM) (11/04/19 8 :51 AM) (11/04/19 8:51 AM) Respiratory Rate 18 br/min 16 br/min 16 br/min [16-30 br/min] (11/04/19 1:39 PM) (11/04/19 11:07 AM) (11/04/19 10:07 AM) Temperature 97.9 DegF 97.7 DegF 97.9 DegF [96.8-100.4 DegF] (11/04/19 1:39 PM) (11/04/19 7:27 AM) (11/04/19 1:40 AM) Mode of Delivery Room air Room air Room air (Oxygen) (11/04/19 1:39 PM) (11/04/19 7:27 AM) (11/04/19 1:40 AM) Blood pressure sites Arm, right Arm, right Arm, left (11/04/19 1:39 PM) (11/04/19 7:27 AM) (11/04/19 1:40 AM) Temperature Route Temporal Temporal Oral (11/04/19 1:39 PM) (11/04/19 7:27 AM) (11/04/19 1:40 AM) Dry Weight 88.3 kg (10/30/19 11:57 PM) Weight Obtained Via Bed scale Bed scale (11/02/19 6:29 AM) (10/30/19 11:57 PM) Dry Weight Obtained Patient/family stated Via (10/30/19 11:57 PM) Social History Social History Type Response Smoking Status Current some day smoker; Typ e: Cigarettes; Other: 3 cigarettes per week; entered on: 04/02/18 Sex
--- OUTSIDE RECORDS SUMMARY | 2022-06-13 19:35 | XMS_ITS | Continuity of Care Document ---
:1955 Author Organization [facility] Address [address] [place] [id number]- Care Team Providers Name Role Phone Name Memo ARREDONDO Primary Care Physician [place] [facility] [place]/04/[place] - 08/04/[address] [address]- [facility] Discharge Disposition: A-D/C AMA Attending Physician: Krishna Pereira MD Admitting Physician: Hillary ARREDONDO, Gilda Lindo Referring Physician: Not on Staff, Referring MD Allergies, Adverse Reactions, Alerts Substance Reaction Severity Status indomethacin Shortness of breath Active methadone1 Drug-induced psychosis Active Ultram2, 3 Shortness of breath Active Bee Stings Active 1CAUSES PERSONALITY [id number] has tolerated morphine on previous admission in Jul [id number] severe reaction, can't breathe Immunizations Given and [...] Start Date: 02/21/13 Stop Date: 03/23/13 Status: Orderedisosorbide mononitrate 30 mg oral tablet, extended release 30 mg, By Mouth, Daily, # 30 tablet, Refills 3, Tot. Refills 3, Maintenance, 01/26/19 16:27:39 EDT, Route to Pharmacy Electronically, [id number], [facility] Start Date: 01/26/19 Stop Date: 05/26/19 Status: OrderedLisinopril = 20 mg, By Mouth, Daily, 0 Refills, Maintenance, 05/24/17 16:52:02 EST Start Date: 05/24/17 Status: OrderedMetoprolol Tartrate 25 mg oral tablet 2 tablet = 50 mg, By Mouth, 2 times a day Start Date: 07/18/17 Status: OrderedMultivitamin By Mouth, Daily, 0 Refills, Maintenance Start Date: 02/19/13 Status: Orderednitroglycerin 0.4 mg sublingual tablet 1 [...] [id number] wrist with recent prednisone tx, 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 COMPARISON: 01/21/2019 FINDINGS: LINES AND TUBES: Dual-lead left subclavian pacer with leads in the right atrial appendage and right ventricle. LUNGS AND PLEURA: Improved left base atelectasis. Normal pulmonary vascularity. No pleural effusion. No pneumothorax. HEART, MEDIASTINUM AND BÁRBARA: Heart is normal in size. Normal mediastinal and hilar contour. BONES AND SOFT TISSUES: No acute abnormality. IMPRESSION: No acute abnormality. I have personally reviewed the images and I agree with this report. WSN: [id number] Dictated By: Jalen Pagan DO Dictated Date/Time: 08/04/19 2:12 pm Reviewed By: Bryan Hearn MD Signed By: Bryan Hearn MD Signed Date/Time: 08/04/19 2:17 pm Transcribed By: DEJA Transcribed Date/Time: 08/04/19 1:54 pm Vital Signs Most recent to oldest 1 2 3 [Reference Range]: Height 180 cm 180 cm 180 cm (08/04/19 7:11 PM) (08/04/19 3:43 PM) (08/04/19 3:4 1 PM) Weight 88.3 kg (08/04/19 3:41 PM) Oxygen Saturation [94-100 %] 98 % 98 % 97 % (08/04/19 7:11 PM) (08/04/19 3:43 PM) (08/04/19 1:0 1 PM) Pulse Rate [55-90 bpm] 57 bpm 60 bpm 61 bpm (08/04/19 7:11 PM) (08/04/19 3:43 PM) (08/04/19 1:0 1 PM) Body Mass Index [18.5-24.99] 27.25 *H* (08/04/19 3:41 PM) Blood Pressure [90-138/55-84 mm 150/84 mm Hg 144/77 mm Hg 118/74 mm Hg Hg] *H* *H* (08/04/19 1:01 PM ) (08/04/19 7:11 PM) (08/04/19 3:43 PM) Respiratory Rate [16-30 br/min] 18 br/min 18 br/min 18 br/min (08/04/19 7:35 PM) (08/04/19 7:11 PM) (08/04/19 4:4 8 PM) Temperature [96.8-100.4 DegF] 98.5 DegF 97.3 DegF 97 .3 DegF (08/04/19 7:11 PM) (08/04/19 3:43 PM) (08/04/19 1:0 1 PM) Mode of Delivery (Oxygen) Room air Room air Room a ir (08/04/19 7:11 PM) (08/04/19 3:43 PM) (08/04/19 1:0 1 PM) Blood pressure sites Arm, right Arm, right Arm, right (08/04/19 7:11 PM) (08/04/19 3:43 PM) (08/04/19 1:0 1 PM) Temperature Route Oral Oral Oral (08/04/19 7:11 PM) (08/04/19 3:43 PM) (08/04/19 1:0 1 PM) Dry Weight 88.3 kg 91 kg (08/04/19 3:41 PM) (08/04/19 1:00 PM) Social History Social History Type Response Smoking Status Current some day smoker; Typ e: Cigarettes; Other: 3 cigarettes per week; entered on: 04/02/18 Sex
--- OUTSIDE RECORDS SUMMARY | 2022-06-13 19:35 | XMS_ITS | Continuity of Care Document ---
:1955 Author Organization [facility] Address [address] [place] [id number]- Care Team Providers Name Role Phone Name Memo ARREDONDO Primary Care Physician [place] [facility] [place] Date(s): 07/10/21 - 07/10/[address] [address] Discharge Disposition: A-D/C Home Attending Physician: Jeffy Ballard MD Admitting Physician: Jeffy Ballard MD Referring Physician: Oren Mueller MD Allergies, Adverse Reactions, Alerts Substance Reaction Severity Status indomethacin Shortness of breath Active methadone1 Drug-induced psychosis Active Ultram2, 3 Shortness of breath Active Bee Stings Active 1CAUSES PERSONALITY [id number] has tolerated morphine on previous admission in Jul [id number] severe reaction, can't breathe Immunizations Given and [...] 11/04/19 14:53:00 EDT, Route to Pharmacy Electronically, [facility], 181, cm, 11/04/19 13:39:00 EDT, Height, 88.3, kg, 10/31/19 0:37:00 EDT, Dry Weight Start Date: 11/04/19 Stop Date: 02/02/20 Status: Ordereddivalproex sodium 250 mg oral tablet, extended release 1 tablet = 250 mg, By Mouth, Daily, 0 Refills, Maintenance, 11/14/20 16:58:00 EDT, Partial fill uponpatient request if the prescription is for a schedule II opioid drug. Start Date: 11/14/20 Status: OrderedEliquis 5 mg oral tablet 1 tablet = 5 mg, By Mouth, 2 times a day, # 60 tablet, 5 Refills, Maintenance, 07/10/21 6:39:00 EST,Tablet, Partial fill upon patient request if the prescription is for a schedule II opioid drug. Start Date: 07/10/21 Status: Orderedlisinopril 20 mg oral tablet 10 mg, 0.5, tablet, By Mouth, Daily, Refills 0, Maintenance, 08/03/20 14:41:00 EST, Partial fill upon patient request if the prescription is for a schedule II opioid drug. Start Date: 08/03/20 Status: OrderedMetoprolol Tartrate 50 mg oral tablet 1 tablet = 50 mg, By Mouth, 2 times a day, with meals Start Date: 11/14/20 Status: OrderedMultivitamin By Mouth, Daily, 0 Refills, Maintenance Start Date: 02/19/13 Status: Orderednitroglycerin 0.4 mg sublingual tablet 1 tablet = 0.4 mg, Sublingual, Every 5 minutes, 0 Refills, Maintenance, 02/19/13 23:23:47 EDT Start Date: 02/19/13 Status: Orderedondansetron 4 mg oral tablet 1 tablet = 4 mg, By Mouth, Every 8 hours, # 12 tablet, 0 Refills, Maintenance, 07/10/21 6:41:00 EST,Tablet, Partial fill upon patient request if the prescription is for a schedule II opioid drug. Start Date: 07/10/21 Status: OrderedoxyCODONE 5 mg oral tablet 10 mg, 2, tablet, By Mouth, Every 6 hours, PRN, Refills 0, Tot. Refills 0, Maintenance, Pain , Moderate, 12/13/15 18:07:04 EDT Start Date: 7/6/16 Status: Orderedpantoprazole 40 mg oral delayed release tablet 1 tablet = 40 mg, By Mouth, Daily, # 30 tablet, 0 Refills, Maintenance, 11/14/20 16:57:00 EDT, EC Tablet Start Date: 11/14/20 Status: OrderedRanexa 1000 mg oral tablet, extended [...] Start Date: 05/27/17 Stop Date: 06/26/17 Status: OrderedSpritam 750 mg oral tablet, dispersible DISSOLVE 1 TABLET BY MOUTH TWICE DAILY Start Date: 07/10/21 Status: OrderedZetia 10 mg oral tablet 1 [...] Gout(Confirmed)2 Active Hypercholesterolemia(Confirmed) Active Lumbar radiculopathy(Confirmed) Active Obese class I(Confirmed) Active Pain in right leg(Confirmed) Active Rotator cuff impingement syndrome Active right(Confirmed) 1negative cardiac cath July 20072right wrist with recent prednisone tx, 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 per [facility] Vital Signs Most recent to oldest [Reference Range]: 1 2 Height 180 cm 180 cm (07/10/21 6:15 AM) (07/10/21 6:15 AM) Weight 98.9 kg 98.9 kg (07/10/21 6:15 AM) (07/10/21 6:15 AM) Oxygen Saturation [94-100 %] 97 % (07/10/21 6:15 AM) Pulse Rate [55-90 bpm] 70 bpm (07/10/21 6:15 AM) Body Mass Index [18.5-24.99] 30.52 *>HHI* (07/10/21 6:15 AM) Blood Pressure [90-138/55-84 mm Hg] 153/85 mm Hg 154/ 84 mm Hg *H* *H* (07/10/21 6:30 AM) (07/10/21 6:15 AM) Respiratory Rate [16-30 br/min] 19 br/min 19 br/mi n (07/10/21 6:15 AM) (07/10/21 6:15 AM) Temperature [96.8-100.4 DegF] 98.1 DegF (07/10/21 6:15 AM) Mode of Delivery (Oxygen) Room air (07/10/21 6:15 AM) Blood pressure sites Arm, left Arm, right (07/10/21 6:30 AM) (07/10/21 6:15 AM) Temperature Route Temporal (07/10/21 6:15 AM) Social History Social History Type Response Smoking Status Current some day smoker; Typ e: Cigarettes; Other: 3 cigarettes per week; entered on: 04/02/18 Sex
--- OUTSIDE RECORDS SUMMARY | 2022-06-13 19:35 | XMS_ITS | Continuity of Care Document ---
:1955 Author Organization [facility] Address [address] [place] [id number]- Care Team Providers Name Role Phone Name Memo ARREDONDO Primary Care Physician [place] [facility] [place]/03/[place] - 02/05/[address] [address]- [facility] Encounter Diagnosis Chest pain (Final) - 02/03/20 CAD (coronary artery disease) (Final) - 02/03/20 Discharge Disposition: A-D/C Home Attending Physician: Tereza Mejia MD Admitting Physician: Ladi Huang MD Referring Physician: Not on Staff, Referring MD Allergies, Adverse Reactions, Alerts Substance Reaction Severity Status indomethacin Shortness of breath Active methadone1 Drug-induced psychosis Active Ultram2, 3 Shortness of breath Active Bee Stings Active 1CAUSES PERSONALITY [id number] has tolerated morphine on previous admission in Jul [id number] severe reaction, can't breathe Immunizations Given and [...] 11/04/19 14:53:00 EDT, Route to Pharmacy Electronically, [facility], 181, cm, 11/04/19 13:39:00 EDT, Height, 88.3, kg, 10/31/19 0:37:00 EDT, Dry Weight Start Date: 11/04/19 Stop Date: 02/02/20 Status: OrderedBuPROPion (Eqv-Wellbutrin SR) 150 mg/12 hours oral tablet, extended release TAKE 1 TABLET BY MOUTH TWICE DAILY Start Date: 10/30/19 Status: Orderedisosorbide mononitrate 30 mg oral tablet, extended release 30 mg, 1, tablet, By Mouth, Daily, # 30 tablet, Refills 3, Tot. Refills 3, Maintenance, 02/05/20 8:36:00 EDT, Route to Pharmacy Electronically, [id number], 180, cm, 02/05/20 5:07:00 EDT, Height, 93.5, kg, 02/03/20 13:49:00 EDT, Dry We... 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 headache post nitro. states sent placed a month or two ago. nausea. dizziness; Reason: Shortness of Breath; Clinical Question(s): CHF COMPARISON: 11/03/2019. FINDINGS: LINES AND TUBES: Dual-lead left subclavian pacer/AICD wires are intact. LUNGS AND PLEURA: Minimal linear opacity at the left lateral costophrenic angle suggestive of scarring, diminished from prior radiograph of 11/03/2019. Lungs are otherwise clear. Normal pulmonary vascularity. No pleural effusion. No pneumothorax. HEART, MEDIASTINUM AND BÁRBARA: Heart is normal in size. Aorta is somewhat tortuous. BONES AND SOFT TISSUES: No acute abnormality. IMPRESSION: No acute abnormality. WSN: [id number] Ordering Physician: Marcelino Carbajal Dictated By: Veronica Butt MD Dictated Date/Time: 02/03/20 9:26 am Reviewed By: Veronica Butt MD Signed By: Veronica Butt MD Signed Date/Time: 02/03/20 9:26 am Transcribed By: DEJA Transcribed Date/Time: 02/03/20 9:20 am Vital Signs Most recent to oldest 1 2 3 [Reference Range]: Height 180 cm 180 cm 180 cm (02/05/20 8:46 AM) (02/05/20 5:07 AM) (02/05/20 12: 09 AM) Weight 93.5 kg 93.5 kg (02/04/20 12:52 PM) (02/03/20 1:49 PM) Oxygen Saturation [94-100 96 % 94 % 96 % %] (02/05/20 8:46 AM) (02/05/20 5:07 AM) (02/05/20 12: 09 AM) Pulse Rate [55-90 bpm] 60 bpm 60 bpm 60 bpm (02/05/20 8:46 AM) (02/05/20 5:07 AM) (02/05/20 12: 09 AM) Body Mass Index 28.86 [18.5-24.99] *H* (02/03/20 1:49 PM) Blood Pressure 151/84 mm Hg 147/90 mm Hg 129/83 mm Hg [90-138/55-84 mm Hg] *H* *H* (02/05/20 12 :09 AM) (02/05/20 8:46 AM) (02/05/20 5:07 AM) Respiratory Rate [16-30 18 br/min 18 br/min 20 br/mi n br/min] (02/05/20 10:12 AM) (02/05/20 8:46 AM) (02/05/20 5: 07 AM) Temperature [96.8-100.4 98.1 DegF 98.4 DegF 97.8 Deg F DegF] (02/05/20 8:46 AM) (02/05/20 5:07 AM) (02/05/20 12: 09 AM) Mode of Delivery (Oxygen) Room air Room air Room a ir (02/05/20 8:46 AM) (02/05/20 5:07 AM) (02/05/20 12: 09 AM) Blood pressure sites Arm, right Arm, left Arm, left (02/05/20 8:46 AM) (02/05/20 5:07 AM) (02/05/20 12: 09 AM) Temperature Route Oral Oral Oral (02/05/20 8:46 AM) (02/05/20 5:07 AM) (02/05/20 12: 09 AM) Dry Weight 93.5 kg (02/03/20 1:49 PM) Weight Obtained Via Patient/family stated (02/03/20 1:49 PM) Social History Social History Type Response Smoking Status Current some day smoker; Typ e: Cigarettes; Other: 3 cigarettes per week; entered on: 04/02/18 Sex
[2022-06-13 19:37] LABS: Alanine Aminotransferase 18 U/L (0-40); Albumin Level 3.8 g/dL (3.5-5.0); Alkaline Phosphatase 99 U/L (39-117); Anion Gap 23 (12-20); Aspartate Amino Transferase 26 U/L (5-37); Bilirubin Direct < 0.2 mg/dL (0.0-0.5); Bilirubin Total 0.2 mg/dL (0.0-1.0); Blood Urea Nitrogen 15 mg/dL (9-16); Calcium 8.2 mg/dL (8.4-10.2); Carbon Dioxide 16 mmol/L (22-29); Chloride 102 mmol/L (96-108); Creatinine Clr Calc Pharmacy 78.8; Estimated Glomerular Filt Rate > 60; Glucose Random 224 mg/dL (60-115); Potassium 4.5 mmol/L (3.3-5.1); Sodium 136 mmol/L (135-145); Total Protein 6.3 g/dL (6.5-8.0)
[2022-06-13 19:39] VITALS: RESP 12
[2022-06-13 19:39] LABS: Atypical Lymph Absolute Manual 0.6 x10*3/uL; Atypical Lymphs Percent Manual 5 % (0-6); Band Neutrophils Percent 3 % (3-5); Basophils Abs Manual 0.1 X10*3/uL (0.0-0.2); Basophils Percent Manual 1 % (0-2); Eosinophils Absolute Manual 0.4 X10*3/uL (0.0-0.4); Eosinophils Percent Manual 3 % (0-4); Lymphocytes Absolute Manual 3.4 X10*3/uL (1.2-4.9); Lymphocytes Percent Manual 28 % (20-40); Metamyelocytes Absolute 0.2 X10*3/uL; Metamyelocytes Percent 2 %; Monocytes Absolute Manual 0.2 X10*3/uL (0.1-1.2); Monocytes Percent Manual 2 % (2-11); Neutrophils Absolute Manual 7.1 X10*3/uL (2.0-8.3); Neutrophils Percent Manual 56 % (45-73); Platelet Estimate NORMAL (NORMAL)
[2022-06-13] MEDS: Morphine Sulfate 4 MG/ML CARTRIDGE IVPUSH ×2 (19:39→23:38)
[2022-06-13 19:40] LABS: Hypersegmented Neutrophils PRESENT; Platelet Morphology Comment NORMAL
[2022-06-13] MEDS: Piperacillin Sodium/Tazobactam 3.375 GM in 0.9 % Sodium Chloride 50 ML IV (19:40)
[2022-06-13 19:41] LABS: RBC Morphology NORMAL
[2022-06-13 19:44] LABS: Burr Cells 2+ (3-5) /OIF
--- NOTE | 2022-06-13 19:55 | MHC.EDTECH ---
this tech was called into room by visitor of pt stating that the pt had coughed up the remains of what he was choking prior to arrival. there was a approx. 3 inch piece of meat on the pt's chest when this tech had entered room. MD notified. Pt appears in no distress, respirations and vitals are stable and within normal range. will continue to monitor, rn aware.
[2022-06-13] MEDS: 0.9 % Sodium Chloride 3,000 ML 999 ML IVCONT (20:36)
--- NOTE | 2022-06-13 20:58 | P.HPHOSP_ITS ---
History of Present Illness Date of Service: 06/13/22 Attending physician on admission: Jason Bautista Chief Complaint: Choking, hypoxia Pt is a 67-year-old male with a PMH significant for?extensive CAD with numerous cardiac catheterizations, 2 cardiac stents, pacemaker, history of recurrent DVT on Eliquis, small right occipital hemorrhage in 2019, numerous back surgeries chronically on Oxy 10 mg q5 daily, both total knee replacements, hip replacement, seizure disorder among other health concerns who presents to the ED after choking a roast beef sandwich. Patient states that he attended a this afternoon and got home around 17:00 whereby he made a roast beef sandwich, patient does not remember much after this and the rest of the HPI obtained from his friend who was at his house. His friend states that he attempted Heimlich maneuver when the patient started choking but could not dislodge and his sandwich. Called EMS and the police arrived only a minute or 2 after the phone call and began performing the Heimlich maneuver. EMS arrived shortly thereafter and essentially started performing CPR. Patient during blue, became unresponsive, and was essentially receiving CPR before a large chunk of sandwhich was dislodged from his trachea. Currently patient complains of diffuse whole body aches particularly in his head chest and throat. Patient also complains of a full bladder; initially he said that he could not urinate however during the course of our interview he was able to do so. Patient denies belly or abdominal pain. No numbness or tingling. ? In the ED patient was tachycardic, tachypneic, and satting at 92 on RA; currently 94 on 2 L. Labs were significant for leukocytosis of 12.0, lactic acid of 11.0 with a repeat 8.2. CT of chest and head showed no acute findings, no infiltrates or effusion. Pt was treated with Zosyn, IVF, morphine. Pt will be admitted to the hospital for observation of hypoxia secondary to choking. Review of Systems Review of Systems: Diffuse whole-body pain, particularly in chest head and throat Sore throat Full bladder No abdominal pain Yes all other systems are reviewed and are negative PMFSH Medical History Atherosclerotic cardiovascular disease Brain bleed Brain lesion CAD (coronary artery disease) COVID-19 vaccine administered DVT (deep venous thrombosis) Esophagitis Essential hypertension GERD (gastroesophageal reflux disease) Headache History of chemotherapy Myocardial infarction Obstructive sleep apnea (~2018) On anticoagulant therapy Pacemaker (~05/2013) Personal history of nicotine dependence Psychotic disorder Seizures (~04/2020) Syncope Tremor Tubular adenoma of colon Family History Father Heavy cigarette smoker Throat cancer Mother Heart disease Surgical History History of appendectomy History of cardiac catheterization History of cholecystectomy History of colonoscopy (~09/2020) History of esophagogastroduodenoscopy (EGD) (~09/2020) History of permanent cardiac pacemaker placement (~05/2013) History of right knee surgery (~12/2013) History of spinal surgery History of total right hip replacement (~06/2012) Stented coronary artery Social History Household Members: Other Household Members Other:: shares house with a friend Housing: House Are you a primary resident care aide to a significant other at home: No Do you presently have visiting nurse or other home services: No (pt feels he will need it) Alcohol intake: never Patient Tobacco Use Status: Former Tobacco user Quit Date: 8 days ago (as of 01/07/22) Tobacco use type: Cigarette Years Smoked: 25 years (age [age] then 49 to present, max 1.5ppd, now 1/2ppd) Advance Directives: Yes Advance Directives on File: Yes Advance Directives Date on File: 12/16/20 service: No Current occupational status: employed and retired Meds Allergies Allergy/AdvReac Type Severity Reaction Status Date / Time bee pollen [BEE STINGS] Allergy Severe ANAPHYLAXIS Verified 03/05/22 08:59 indomethacin [Indocin] Allergy Severe anaphylaxis Verified 03/05/22 08:59 tramadol [Ultram] Allergy Severe anaphylaxis Verified 03/05/22 08:59 enoxaparin [From Lovenox] Allergy Mild Unknown Verified 03/05/22 08:59 Active Medications: Current Medications Sodium Chloride (Ns) 3,000 mls @ 999 mls/hr IVCONT .Q3H1M ONE Stop: 06/13/22 22:49 Last Admin: 06/13/22 20:36 Dose: 999 mls/hr Pharmacy Consult (Consult Rx Perform Med Rec) 1 each MISCELLANE ONCE PRN PRN Reason: Consult order Home Medications Medication Instructions Recorded Confirmed Last Taken Type amlodipine 10 mg tablet (Norvasc) 10 mg PO DAILY 04/25/20 06/13/22 06/19/21 History aspirin 81 mg tablet,delayed 81 mg PO DAILY 04/25/20 06/13/22 06/19/21 History release (Adult Low Dose Aspirin) rosuvastatin 40 mg tablet (Crestor) 40 mg PO BEDTIME chloestrol 04/25/20 06/13/22 06/18/21 History oxycodone 10 mg tablet 10 mg PO Q5H PRN Moderate Pain 04/26/20 06/13/22 06/19/21 History (Scale Score 5-6) divalproex 250 mg tablet,extended 250 mg PO BEDTIME 09/08/20 06/13/22 06/18/21 History release 24 hr (Depakote ER) ezetimibe 10 mg tablet (Zetia) 10 mg PO DAILY 10/24/20 06/13/22 06/19/21 History lisinopril 10 mg tablet (Zestril) 10 mg PO DAILY 10/24/20 06/13/22 06/19/21 History multivitamin (Daily Vitamin 1 tab PO DAILY 10/24/20 06/13/22 06/19/21 History Formula tablet) pantoprazole 40 mg tablet,delayed 40 mg PO DAILY@0630 10/24/20 06/13/22 06/19/21 History release (Protonix) ranolazine 1,000 mg 1,000 mg PO BID 10/24/20 06/13/22 06/19/21 History tablet,extended release,12 hr (Ranexa) apixaban 5 mg tablet (Eliquis) 5 mg PO BID 01/08/21 06/13/22 06/19/21 History levetiracetam 500 mg tablet 500 mg PO BID 06/19/21 06/13/22 06/19/21 History (Keppra) nitroglycerin 0.4 mg sublingual 0.4 mg sublingual Q5M PRN chest 11/29/21 06/13/22 Unknown History tablet (Nitrostat) pain primidone 250 mg tablet 250 mg PO BID 03/05/22 06/13/22 Unknown History cyclobenzaprine 10 mg tablet 1 tab PO BID PRN Muscle Spasm 06/13/22 06/13/22 Unknown History Physical Exam Vital Signs and Narrative: Vital Signs: Last Vital Signs Temp 97.4 F 06/13/22 18:11 Pulse 90 06/13/22 19:19 Resp 12 06/13/22 19:39 BP 128/82 06/13/22 19:19 Pulse Ox 94 06/13/22 19:19 O2 Del Method 06/13/22 19:19 O2 Flow Rate 3 06/13/22 19:19 BMI result Body Mass Index 30.5 Constitutional: Alert, uncomfortable, lying in bed. Mental Status: Oriented to person, place and time. Eyes: Pupils are equal, round, and reactive to light. Ear, Nose, and Throat: Oropharynx clear, mucous membranes moist. Ears and nose without deformities. Trachea midline. Respiratory: Diffuse expiratory rhonchi. Cardiovascular: S1, S2 regular. No murmurs, rubs, or gallops. Gastrointestinal: Abdomen soft, non-tender, non-distended. Normal bowel sounds. Neurologic: Cranial nerves II-XI are grossly intact. No focal neurological deficits. Moves all extremities spontaneously. Skin: No rashes or lesions noted. Musculoskeletal: Complains of pain to palpation of chest and upper arms. Extremities: No edema. Psychiatric: Normal mood and affect. Results Labs CBC and Chem 7: 06/13/22 18:56 06/13/22 18:56 Labs: Laboratory Results - last 24 hr 06/13/22 06/13/22 06/13/22 18:55 18:55 18:55 MCV MCH MCHC RDW Plt Count MPV Immature Gran % (Auto) Neut % (Auto) Lymph % (Auto) [place] % (Auto) Eos % (Auto) Baso % (Auto) Lymph # (Auto) [place] # (Auto) Eos # (Auto) Baso # (Auto) Abs Immat Gran (auto) Absolute Neuts (auto) Absolute Nucleated RBC Nucleated RBC % (auto) Neutrophils % (Manual) Band Neutrophils % Lymphocytes % (Manual) Atypical Lymphs % (Man) Monocytes % (Manual) Eosinophils % (Manual) Basophils % (Manual) Metamyelocytes % Abs Neuts (Manual) Lymphocytes # (Manual) Atyp Lymphs # (Manual) Monocytes # (Manual) Eosinophils # (Manual) Basophils # (Manual) Metamyelocytes # Hypersegmented Neuts Platelet Estimate Plt Morphology Comment RBC Morphology [place] Cells PT 10.8 INR 0.9 Anion Gap Estim Creat Clear Calc Estimated GFR Random Glucose Lactic Acid 11.0 H* Calcium Total Bilirubin Direct Bilirubin AST ALT Alkaline Phosphatase Troponin I High Sens 9.9 B-Natriuretic Peptide Total Protein Albumin COVID-19 (DOMENICO) COVID-19 Flit Com 06/13/22 06/13/22 06/13/22 18:56 18:56 18:56 MCV 93.7 MCH 30.1 MCHC 32.2 RDW 12.5 Plt Count 368 D MPV 8.4 L Immature Gran % (Auto) Cancelled Neut % (Auto) Cancelled Lymph % (Auto) Cancelled [place] % (Auto) Cancelled Eos % (Auto) Cancelled Baso % (Auto) Cancelled Lymph # (Auto) Cancelled [place] # (Auto) Cancelled Eos # (Auto) Cancelled Baso # (Auto) Cancelled Abs Immat Gran (auto) Cancelled Absolute Neuts (auto) Cancelled Absolute Nucleated RBC 0.000 Nucleated RBC % (auto) 0.0 Neutrophils % (Manual) 56 Band Neutrophils % 3 Lymphocytes % (Manual) 28 Atypical Lymphs % (Man) 5 Monocytes % (Manual) 2 Eosinophils % (Manual) 3 Basophils % (Manual) 1 Metamyelocytes % 2 Abs Neuts (Manual) 7.1 Lymphocytes # (Manual) 3.4 Atyp Lymphs # (Manual) 0.6 Monocytes # (Manual) 0.2 Eosinophils # (Manual) 0.4 Basophils # (Manual) 0.1 Metamyelocytes # 0.2 Hypersegmented Neuts PRESENT Platelet Estimate NORMAL Plt Morphology Comment NORMAL RBC Morphology NORMAL [place] Cells 2+ (3-5) PT INR Anion Gap 23 H Estim Creat Clear Calc 78.8 Estimated GFR > 60 Random Glucose 224 H Lactic Acid Calcium 8.2 L D Total Bilirubin 0.2 Direct Bilirubin < 0.2 AST 26 ALT 18 Alkaline Phosphatase 99 Troponin I High Sens B-Natriuretic Peptide 50 Total Protein 6.3 L Albumin 3.8 COVID-19 (DOMENICO) COVID-19 Clin Com 06/13/22 18:57 MCV MCH MCHC RDW Plt Count MPV Immature Gran % (Auto) Neut % (Auto) Lymph % (Auto) [place] % (Auto) Eos % (Auto) Baso % (Auto) Lymph # (Auto) [place] # (Auto) Eos # (Auto) Baso # (Auto) Abs Immat Gran (auto) Absolute Neuts (auto) Absolute Nucleated RBC Nucleated RBC % (auto) Neutrophils % (Manual) Band Neutrophils % Lymphocytes % (Manual) Atypical Lymphs % (Man) Monocytes % (Manual) Eosinophils % (Manual) Basophils % (Manual) Metamyelocytes % Abs Neuts (Manual) Lymphocytes # (Manual) Atyp Lymphs # (Manual) Monocytes # (Manual) Eosinophils # (Manual) Basophils # (Manual) Metamyelocytes # Hypersegmented Neuts Platelet Estimate Plt Morphology Comment RBC Morphology [place] Cells PT INR Anion Gap Estim Creat Clear Calc Estimated GFR Random Glucose Lactic Acid Calcium Total Bilirubin Direct Bilirubin AST ALT Alkaline Phosphatase Troponin I High Sens B-Natriuretic Peptide Total Protein Albumin COVID-19 (DOMENICO) Negative COVID-19 Clin Com See Note Imaging Radiologist's Impressions: Impressions Chest CT 06/13/22 18:43 IMPRESSION: No acute finding. No infiltrate or effusion is seen here. Some scattered bullous disease is noted and some scattered areas of nodularity which are felt to be stable. Consider low-dose noncontrast follow-up in one year for continued evaluation. Head CT 06/13/22 18:44 IMPRESSION: 1. No acute intracranial abnormality. 2. Unchanged hyperattenuating focus in the right occipital lobe. 3. Background of mild microangiopathy and generalized cerebral volume loss. 4. Right mastoid effusion. Assessment and Plan (1) Aspiration pneumonitis: Status: Acute (2) Hypoxia: Status: Acute Plan Pt is a 67-year-old male with a PMH significant for?extensive CAD with numerous cardiac catheterizations, 2 cardiac stents, pacemaker, history of recurrent DVT on Eliquis, small right occipital hemorrhage in 2019, numerous back surgeries chronically on Oxy 10 mg q5 daily, both total knee replacements, hip replacement, among other health concerns who presents to the ED after choking a roast beef sandwich. Pt will be admitted to the hospital for observation of hypo amber secondary to choking. Acute metabolic encephalopathy secondary to aspiration pneumonitis CT showed no evidence for pneumonia Elevated lactate and WBC and tachycardia and tachypnea likely secondary to acute hypoxic choking event IVF Pain management Supplemental O2 titrated for O2>92, wean as tolerated Hold off on abx for now Monitor mentation Lactic acidosis Likely secondary to acute hypoxia not severe sepsis Repeat lactic acid in the morning and monitor labs Question of urinary retention Patient complained of bladder fullness and not being able to urinate, however he did urinate at the end of our interview Bladder scan UA CAD Continue home meds GERD Continue home meds Seizure disorder Continue home meds HLD Continue home meds Full Code Attending:?Dr. Bautista DVT Prophylaxis: On Eliquis Pt will be admitted to the hospital for observation of hypoxia secondary to choking. Time Spent With Patient Time: Total time managing care of this patient today ____ minutes. Quality Stroke Does the patient have a stroke diagnosis?: No VTE Prior VTE?: Yes Approximate Date of Prior VTE: 02/06/21 VTE Risk Level:: Medical - moderate - high VTE Device Contraindication: Treatment Not Indicated VTE Drug Contraindication: N/A - Med Ordered
[2022-06-13 21:01] LABS: Reflex Lactate? Lactic Acid Added
[2022-06-13 21:23] LABS: Appearance Urine Clear; Color Urine Yellow; Glucose Urine UA 250 mg/dL (Negative); Leukocyte Esterase Urine Negative (Negative); Nitrite Urine Negative (Negative); Specific Gravity - Urine 1.015 (1.005-1.025); UMIC TRIGGER UA YES; Urine Blood Trace (Negative); Urine Ketones Negative (Negative); Urine Protein 30 (1+) mg/dL (Neg-Trace)
[2022-06-13 21:25] LABS: Bacteria Urine None Seen (None Seen); RBC Urine 0-2 /HPF (0-2); Squamous Epithelial Cell Urine 0-2 /HPF (0-2); WBC Urine 0-5 /HPF (0-5)
--- NOTE | 2022-06-13 21:25 | PHA.MEDREC ---
Pharmacy Consult ? Medication Reconciliation Pharmacy has completed the medication reconciliation. Spoke with patient in the ED. patient states he fills all meds at the [facility]. questioned patient about keppra and he said he doesnt take often because it makes him too tired. Patient was not able to tell me if he took medications this morning.
--- OUTSIDE RECORDS SUMMARY | 2022-06-13 21:41 | XMS_ITS ---
:1955 Author Name Name, Memo Care Team Providers Name Role Phone Name, Memo Unavailable Unavailable PROBLEMS Type Condition ICD9-CM [id number] Onset Condition SNOMED Cod e Code Code Dates Status Problem Atherosclerosis of I70.203 Active 1 [id number] [place] artery of both lower extremities, with unspecified presence of clinical manifestation ALLERGIES Substance Reaction Event Type Date Status Indocin Unknown Drug Allergy May, Active Ultram Unknown Drug Allergy May, Active Lovenox Unknown Drug Allergy May, Active Bee Sting Unknown Drug Allergy May, Active ENCOUNTERS Encounter Location Date Diagnosis [address] May, [place] [facility] [place] [facility] [place] artery of both lower [address] extremities, wit h unspecified pres ence of clinical manifes tation I70.203 ; Ingrow ing nail L60.0 ; Tinea un guium B35.1 ; Pain in right toe(s) M79.674 a nd Pain in left toe(s) M79. [address] [facility] Feb, Ach illes tendinitis, left [place], [place] leg M76.62 ; Pa in of left [address] heel M79.672 ; T inea unguium B35.1 ; Pain in right toe(s) M79 .674 and Pain in left toe (s) M79.675 [facility] [address] Jan, 2022 Celluliti s of left toe [place], [place] L03.032 ; Non-pr essure [address] chronic ulcer of other part of left danilo t limited to breakdown of skin L97.521 ; Achill es tendinitis, left leg M76.62 ; Pain of left heel M79.672 ; Calcan eal spur, left foot M77.32 ; 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 and Short Achilles tendon (acquired ), left ankle M67.02 [facility] [address] [facility] Jan, Abs cess of toe, left [place] [facility] [place], [place] L02.612 [place] [address] left toe L03.032 IMMUNIZATIONS Vaccine Route Administration Date Status COVID-19 Moderna Vaccine Unknown October 17, 2021 Adminis tered SOCIAL HISTORY Qualifiers Date Former Smoker REASON FOR REFERRAL FUNCTIONAL STATUS PLAN OF CARE Activity Details Follow Up prn Reason: Future Appointment Provider Name:Rolly Herman , 2022-08-27 09:15:00 AM, [address] [facility] [place], [id number], Pending Test X ray : Foot, left 3V Future/Pending Procedure [id number]-TKHBEUR NAIL, 6 OR MOR E Future/Pending Procedure 13171-Dwonpovd Plate Future/Pending Procedure 74137-ARII SKIN LESIONS, 2 T O 4 Future/Pending Procedure 76041-QAMPILM NAIL, 6 OR MOR E Future/Pending Procedure 71978- Debride <25 sq cm Future/Pending Procedure 28358 I&D ABSCESS- SIMPLE,SI NGLE VITAL SIGNS Height [...] 23, 2022 Avulsion Plate May 28, 2022 DEBRIDE NAIL, 6 OR MORE Mar 05, 2022 DRAINAGE OF SKIN ABSCESS Jan 08, 2022 DEBRIDE NAIL, 6 OR MORE May 28, 2022 ACTIVE WOUND CARE/20 CM OR < Jan 23, 2022 RESULTS No Results REASON FOR VISIT Insurance Providers [facility] Member Patient Patient Patient Patient Patient Subscriber Subscriber Subscriber Group Insurance Plan Plan Plan Plan ID Relationship Address Phone Name Date of ID Name Date of No Type Insurance Insurance Insurance Coverage to Subscriber Address Phone Name Dates Medicare National [id number] Medicare self Myles [id number] [facility] [address] [employer] [facility] [address] [facility] [place] [address] MEDICAL (GENERAL) HISTORY Type Description Date Medical [...] disease involving na tive coronary artery of [place] heart with unstable ang marco antonio pectoris Hospitalization History Cardiac Cath and Stent Hospitalization History [facility] painful L migel Ingrow n? given 01/08/22 antiboitics Hospitalization History [facility] left kn ee 3x between 2021 5 weeks
--- OUTSIDE RECORDS SUMMARY | 2022-06-13 21:42 | XMS_ITS ---
:1955 Author Organization Jose Cruz Miranda III, MD Address [address] [place] [address] Care Team Providers Name Role Phone Jose Cruz Miranda Unavailable Unavailable PROBLEMS Type Condition ICD9-CM [id number] Onset Condition SNOMED Cod e Code Code Dates Status Problem Pacemaker Z95.0 Active 765082604 Problem Myocardial I21.9 Active 04541993 infarction, unspecified LA type, unspecified artery Problem GERD K21.9 Active 962253367 (gastroesophageal reflux disease) Problem Primary M16.0 Active 024841645 osteoarthritis of both hips Problem Syncope R55 Active 999218677 Problem Atherosclerotic I25.119 Active 1950 59227 heart disease of [place] coronary artery with unspecified angina pectoris Problem Tubular adenoma of D12.6 Active 4 31625488 colon Problem HTN (hypertension) I10 Active 3 6994719 Problem Acute deep vein I82.4Y2 Active thrombosis (DVT) of proximal vein of left lower extremity Problem Tobacco dependence F17.200 Active 8 0409802 Problem Primary M17.12 Active 629274583 osteoarthritis of left knee ALLERGIES Substance Reaction Event Type Date Status Bee Sting Unknown Drug Allergy Mar, Active Pollen Unknown Drug Allergy Mar, Active Tramadol Unknown Drug Allergy Mar, Active Indocin Unknown Drug Allergy Mar, Active ENCOUNTERS Encounter Location Date Diagnosis Jose Cruz Miranda III, MD [address] [place] [address] DR JEFFREY Jan, Acute deep vein thrombosis [address] [place] ([place] [address] left lower extre mity I82.4Y2 ; HTN (hypertens ion) I10 ; GERD (gastroesop hageal reflux disease) K21.9 ; Pacemaker Z95.0 and Tobacco dependence F17.2 00 Jose Cruz Miranda III, MD [address] [place] [address] DR JEFFREY Dec, Acute deep vein thrombosis [address] [place] [place] ([place] [address] left lower extre mity I82.4Y2 ; Tobacco depend ence F17.200 ; Primary osteoa rthritis of left knee M17.12 ; Primary osteoarthritis o f both hips M16.0 ; Atherosc lerotic heart disease of [place] coronary artery with unspecified yaw na pectoris I25.119 ; HTN (h ypertension) I10 ; Pacemaker Z95.0 and Myocardial infar ction, unspecified LA t ype, unspecified anant ry I21.9 IMMUNIZATIONS [...] Leg pain, DVT left leg Insurance Providers [facility] Member Patient Patient Patient Patient Patient Subscriber Subscriber Subscriber Group Insurance Plan Plan Plan Plan ID Relationship Address Phone Name Date of ID Name Date of No Type Insurance Insurance Insurance Coverage to Subscriber Address Phone Name Dates MEDICARE [phone] MEDICARE self Myles [id number] [id number] [place] [address] MEDICAID [phone] MEDICAID self [place] [id number] [address] [id number]
[2022-06-13 21:43] LABS: ~Lactic Acid-LAB USE ONLY 2.2 mmol/L (0.5-2.0)
[2022-06-13 23:18] LABS: Reflex Lactate? 2 Y
[2022-06-13 23:38] VITALS: RESP 14
[2022-06-13] MEDS: Cyclobenzaprine HCl 10 MG TABLET PO (23:39)
--- NOTE | 2022-06-13 23:39 | ED_ITS ---
HPI - General Adult General Chief complaint: Skin/Abscess/Foreign Body Stated complaint: AIRWAY OBSTRUCTION Time Seen by Provider: 06/13/22 18:11 Source: EMS Mode of arrival: EMS Limitations: other History of Present Illness HPI narrative: Patient comes to the emergency room via EMS from home. Prior to arrival, karlee ocasio was eating a sandwich, was sitting with a friend. EMS reported that patient's friend witnessed that the patient started choking on roast beef. The patient started turning blue/purple, the patient's friend attempted Heimlich maneuver without success. Patient collapsed to the floor. When EMS arrived, patient had apneic breathing, cyanotic, O2 saturation was ?undetectable . IM glucagon was given. They attempted inserting an I gel, since that this dislodged the roast beef. Patient started breathing on his own. They were unable to get a line, pt came with a L shoulder IO Related Data Home Medications Medication Instructions Recorded Confirmed amlodipine 10 mg tablet (Norvasc) 10 mg PO DAILY 04/25/20 06/13/22 aspirin 81 mg tablet,delayed 81 mg PO DAILY 04/25/20 06/13/22 release (Adult Low Dose Aspirin) rosuvastatin 40 mg tablet (Crestor) 40 mg PO BEDTIME chloestrol 04/25/20 06/13/22 oxycodone 10 mg tablet 10 mg PO Q5H PRN Moderate Pain 04/26/20 06/13/22 (Scale Score 5-6) divalproex 250 mg tablet,extended 250 mg PO BEDTIME 09/08/20 06/13/22 release 24 hr (Depakote ER) ezetimibe 10 mg tablet (Zetia) 10 mg PO DAILY 10/24/20 06/13/22 lisinopril 10 mg tablet (Zestril) 10 mg PO DAILY 10/24/20 06/13/22 multivitamin (Daily Vitamin 1 tab PO DAILY 10/24/20 06/13/22 Formula tablet) pantoprazole 40 mg tablet,delayed 40 mg PO DAILY@0630 10/24/20 06/13/22 release (Protonix) ranolazine 1,000 mg 1,000 mg PO BID 10/24/20 06/13/22 tablet,extended release,12 hr (Ranexa) apixaban 5 mg tablet (Eliquis) 5 mg PO BID 01/08/21 06/13/22 levetiracetam 500 mg tablet 500 mg PO BID 06/19/21 06/13/22 (Keppra) nitroglycerin 0.4 mg sublingual 0.4 mg sublingual Q5M PRN chest 11/29/21 06/13/22 tablet (Nitrostat) pain primidone 250 mg tablet 250 mg PO BID 03/05/22 06/13/22 cyclobenzaprine 10 mg tablet 1 tab PO BID PRN Muscle Spasm 06/13/22 06/13/22 Previous Rx's Medication Instructions Recorded metoprolol tartrate 100 mg tablet 100 mg PO BID 90 days #180 tabs 02/26/22 Allergies Allergy/AdvReac Type Severity Reaction Status Date / Time bee pollen [BEE STINGS] Allergy Severe ANAPHYLAXIS Verified 03/05/22 08:59 indomethacin [Indocin] Allergy Severe anaphylaxis Verified 03/05/22 08:59 tramadol [Ultram] Allergy Severe anaphylaxis Verified 03/05/22 08:59 enoxaparin [From Lovenox] Allergy Mild Unknown Verified 03/05/22 08:59 Review of Systems Review of Systems: Yes Unobtainable due to mental condition [facility] Past Medical History Medical History Atherosclerotic cardiovascular disease Brain bleed Brain lesion CAD (coronary artery disease) COVID-19 vaccine administered DVT (deep venous thrombosis) Esophagitis Essential hypertension GERD (gastroesophageal reflux disease) Headache History of chemotherapy Myocardial infarction Obstructive sleep apnea (~2018) On anticoagulant therapy Pacemaker (~05/2013) Personal history of nicotine dependence Psychotic disorder Seizures (~04/2020) Syncope Tremor Tubular adenoma of colon Surgical History History of appendectomy History of cardiac catheterization History of cholecystectomy History of colonoscopy (~09/2020) History of esophagogastroduodenoscopy (EGD) (~09/2020) History of permanent cardiac pacemaker placement (~05/2013) History of right knee surgery (~12/2013) History of spinal surgery History of total right hip replacement (~06/2012) Stented coronary artery Family History Family History Father Heavy cigarette smoker Throat cancer Mother Heart disease Social History Social History Household Members: Other Household Members Other:: shares house with a friend Housing: House Are you a primary personal care assistant to a significant other at home: No Do you presently have visiting nurse or other home services: No (pt feels he will need it) Alcohol intake: never Patient Tobacco Use Status: Former Tobacco user Quit Date: 8 days ago (as of 01/07/22) Tobacco use type: Cigarette Years Smoked: 25 years (age [age] then 49 to present, max 1.5ppd, now 1/2ppd) Advance Directives: Yes Advance Directives on File: Yes Advance Directives Date on File: 12/16/20 service: No Current occupational status: employed and retired Physical Exam ED Vital Signs: Vital Signs - 24 hr 06/13/22 18:11 06/13/22 19:19 06/13/22 19:39 Temperature 97.4 F Pulse Rate 114 H 90 Respiratory Rate 24 H 10 L 12 Blood Pressure 180/95 H 128/82 Pulse Oximetry 92 94 Oxygen Delivery Method Room Air Nasal Cannula Oxygen Flow Rate 3 BMI result Body Mass Index 30.5 Const Other: Appearance: Alert. Oriented X1. Disoriented Eyes: Pupils equal, round and reactive to light. ENT: Pharynx normal. Neck: Normal inspection. Neck supple. No lymph nodes noted. No crepitus CVS: Normal heart rate and rhythm. Pulses normal. Normal S1 and S2 Respiratory: No respiratory distress. Breath sounds normal. No Wheezing. No rales Abdomen: Soft and nontender. No rigidity. No distention. Skin: Skin warm and dry. Normal skin color. Normal skin turgor. Extremities: No lower extremity edema. No Lacerations. No Rash Neuro: Oriented X 1. No motor deficit. No sensory deficit. Moving all extremities. No slurred speech. CN 2 through 12 grossly intact. Patient keeps asking where am I? Psych: Confused Course Course Course Narrative: Patient likely aspirated. Here in the emergency room, patient was able to cough up a piece of roast beef, approximately 7 cm x 5 cm. Patient was treated empirically with Zosyn to prevent aspiration pneumonia. Initial lactic acid is 11. Patient receiving fluids, sepsis is not suspected. Elevated lactic acid likely secondary to prolonged hypoxia from choking incident Medications Administered Generic Name Dose Route Start Last Admin Trade Name Ignacioq PRN Reason Stop Dose Admin Cyclobenzaprine HCl 10 mg 06/13/22 21:28 06/13/22 23:39 Cyclobenzaprine Hcl 10 Mg Tablet PO 10 mg BID PRN Administration Muscle Spasm Morphine Sulfate 4 mg 06/13/22 21:27 06/13/22 23:38 Morphine Sulfate 4 Mg/Ml Cartridge IVPUSH 4 mg Q4H PRN Administration Pain, Severe (Pain Scale 7-10) Protocol Sodium Chloride 3 ml 06/14/22 00:00 06/13/22 23:40 0.9 % Sodium Chloride Flush 3 Ml Syringe IVFLUSH 3 ml QSHIFT [facility] Administration Discontinued Medications Generic Name Dose Route Start Last Admin Trade Name Jericho PRN Reason Stop Dose Admin Sodium Chloride 1,000 mls @ 999 mls/hr 06/13/22 18:16 06/13/22 18:22 Ns IVCONT 06/13/22 19:16 999 mls/hr .Q1H1M ONE Administration Piperacillin Sod/Tazobactam 50 mls @ 100 mls/hr 06/13/22 19:29 06/13/22 19:40 Sod 3.375 gm/ Sodium Chloride IV 06/13/22 19:58 100 mls/hr ONCE ONE Administration Sodium Chloride 3,000 mls @ 999 mls/hr 06/13/22 19:49 06/13/22 20:36 Ns IVCONT 06/13/22 22:49 999 mls/hr .Q3H1M ONE Administration Sodium Chloride 1,000 mls @ 999 mls/hr 06/13/22 19:49 06/13/22 21:57 Ns IVCONT 06/13/22 20:49 Not Given .Q1H1M ONE Morphine Sulfate 4 mg 06/13/22 19:21 06/13/22 19:39 Morphine Sulfate 4 Mg/Ml Cartridge IVPUSH 06/13/22 19:22 4 mg ONCE ONE Administration Protocol Medical Decision Making Medical Decision Making MDM Narrative: Patient remained very confused for approximately an hour, gradually, patient became back to normal mental status, now alert and oriented x4, talking within normal limits. Initial lactic acid 11. Differential Diagnosis Differential Diagnoses: The differential diagnosis associated with the presentation includes (Choking, aspiration pneumonia) Admission/Observation Consideration of admission/observation: Escalation of care including admission/observation considered (Patient staying in the hospital under observation) Consult Healthcare Provider Management of the patient was discussed with: Hospitalist (Dr. Bautista agree to admit the patient) Lab Data MDM Lab Attestation statement: I reviewed the patient's lab results. 06/13/22 18:56 06/13/22 18:56 Labs: Lab Results 06/13/22 06/13/22 06/13/22 Range/Units 18:55 18:55 18:55 WBC (4.8-10.8) X10*3/uL RBC (4.60-5.80) X10*6/uL Hgb (14.0-18.0) g/dl Hct (42.0-52.0) % MCV (80.0-98.0) fL MCH (27.0-33.0) pg MCHC (31.0-36.0) g/dl RDW (11.0-16.0) % Plt Count (160-400) X10*3/uL MPV (9.4-12.4) fL Immature Gran % (Auto) Neut % (Auto) Lymph % (Auto) [place] % (Auto) Eos % (Auto) Baso % (Auto) Lymph # (Auto) [place] # (Auto) Eos # (Auto) Baso # (Auto) Abs Immat Gran (auto) Absolute Neuts (auto) Absolute Nucleated RBC (0.0-0.012) X10*3/uL Nucleated RBC % (auto) (0.0-0.2) /100WBC Neutrophils % (Manual) (45-73) % Band Neutrophils % (3-5) % Lymphocytes % (Manual) (20-40) % Atypical Lymphs % (Man) (0-6) % Monocytes % (Manual) (2-11) % Eosinophils % (Manual) (0-4) % Basophils % (Manual) (0-2) % Metamyelocytes % % Abs Neuts (Manual) (2.0-8.3) X10*3/uL Lymphocytes # (Manual) (1.2-4.9) X10*3/uL Atyp Lymphs # (Manual) x10*3/uL Monocytes # (Manual) (0.1-1.2) X10*3/uL Eosinophils # (Manual) (0.0-0.4) X10*3/uL Basophils # (Manual) (0.0-0.2) X10*3/uL Metamyelocytes # X10*3/uL Hypersegmented Neuts Platelet Estimate (NORMAL) Plt Morphology Comment RBC Morphology [place] Cells /OIF PT 10.8 (10.0-13.1) SEC INR 0.9 (0.9-1.1) Sodium (135-145) mmol/L Potassium (3.3-5.1) mmol/L Chloride (96-108) mmol/L Carbon Dioxide (22-29) mmol/L Anion Gap (12-20) BUN (9-16) mg/dL Creatinine (0.5-1.4) mg/dL Estim Creat Clear Calc Estimated GFR Random Glucose (60-115) mg/dL Lactic Acid 11.0 H* (0.5-2.0) mmol/L Calcium (8.4-10.2) mg/dL Total Bilirubin (0.0-1.0) mg/dL Direct Bilirubin (0.0-0.5) mg/dL AST (5-37) U/L ALT (0-40) U/L Alkaline Phosphatase (39-117) U/L Troponin I High Sens 9.9 (<3.5-35.0) ng/L B-Natriuretic Peptide (<100) pg/mL Total Protein (6.5-8.0) g/dL Albumin (3.5-5.0) g/dL COVID-19 (DOMENICO) (Negative) COVID-19 Clin Com 06/13/22 06/13/22 06/13/22 Range/Units 18:56 18:56 18:56 WBC 12.0 H (4.8-10.8) X10*3/uL RBC 4.58 L (4.60-5.80) X10*6/uL Hgb 13.8 L (14.0-18.0) g/dl Hct 42.9 (42.0-52.0) % MCV 93.7 (80.0-98.0) fL MCH 30.1 (27.0-33.0) pg MCHC 32.2 (31.0-36.0) g/dl RDW 12.5 (11.0-16.0) % Plt Count 368 D (160-400) X10*3/uL MPV 8.4 L (9.4-12.4) fL Immature Gran % (Auto) Cancelled Neut % (Auto) Cancelled Lymph % (Auto) Cancelled [place] % (Auto) Cancelled Eos % (Auto) Cancelled Baso % (Auto) Cancelled Lymph # (Auto) Cancelled [place] # (Auto) Cancelled Eos # (Auto) Cancelled Baso # (Auto) Cancelled Abs Immat Gran (auto) Cancelled Absolute Neuts (auto) Cancelled Absolute Nucleated RBC 0.000 (0.0-0.012) X10*3/uL Nucleated RBC % (auto) 0.0 (0.0-0.2) /100WBC Neutrophils % (Manual) 56 (45-73) % Band Neutrophils % 3 (3-5) % Lymphocytes % (Manual) 28 (20-40) % Atypical Lymphs % (Man) 5 (0-6) % Monocytes % (Manual) 2 (2-11) % Eosinophils % (Manual) 3 (0-4) % Basophils % (Manual) 1 (0-2) % Metamyelocytes % 2 % Abs Neuts (Manual) 7.1 (2.0-8.3) X10*3/uL Lymphocytes # (Manual) 3.4 (1.2-4.9) X10*3/uL Atyp Lymphs # (Manual) 0.6 x10*3/uL Monocytes # (Manual) 0.2 (0.1-1.2) X10*3/uL Eosinophils # (Manual) 0.4 (0.0-0.4) X10*3/uL Basophils # (Manual) 0.1 (0.0-0.2) X10*3/uL Metamyelocytes # 0.2 X10*3/uL Hypersegmented Neuts PRESENT Platelet Estimate NORMAL (NORMAL) Plt Morphology Comment NORMAL RBC Morphology NORMAL [place] Cells 2+ (3-5) /OIF PT (10.0-13.1) SEC INR (0.9-1.1) Sodium 136 (135-145) mmol/L Potassium 4.5 (3.3-5.1) mmol/L Chloride 102 (96-108) mmol/L Carbon Dioxide 16 L (22-29) mmol/L Anion Gap 23 H (12-20) BUN 15 (9-16) mg/dL Creatinine 1.00 (0.5-1.4) mg/dL Estim Creat Clear Calc 78.8 Estimated GFR > 60 Random Glucose 224 H (60-115) mg/dL Lactic Acid (0.5-2.0) mmol/L Calcium 8.2 L D (8.4-10.2) mg/dL Total Bilirubin 0.2 (0.0-1.0) mg/dL Direct Bilirubin < 0.2 (0.0-0.5) mg/dL AST 26 (5-37) U/L ALT 18 (0-40) U/L Alkaline Phosphatase 99 (39-117) U/L Troponin I High Sens (<3.5-35.0) ng/L B-Natriuretic Peptide 50 (<100) pg/mL Total Protein 6.3 L (6.5-8.0) g/dL Albumin 3.8 (3.5-5.0) g/dL COVID-19 (DOMENICO) (Negative) COVID-19 Clin Com 06/13/22 Range/Units 18:57 WBC (4.8-10.8) X10*3/uL RBC (4.60-5.80) X10*6/uL Hgb (14.0-18.0) g/dl Hct (42.0-52.0) % MCV (80.0-98.0) fL MCH (27.0-33.0) pg MCHC (31.0-36.0) g/dl RDW (11.0-16.0) % Plt Count (160-400) X10*3/uL MPV (9.4-12.4) fL Immature Gran % (Auto) Neut % (Auto) Lymph % (Auto) [place] % (Auto) Eos % (Auto) Baso % (Auto) Lymph # (Auto) [place] # (Auto) Eos # (Auto) Baso # (Auto) Abs Immat Gran (auto) Absolute Neuts (auto) Absolute Nucleated RBC (0.0-0.012) X10*3/uL Nucleated RBC % (auto) (0.0-0.2) /100WBC Neutrophils % (Manual) (45-73) % Band Neutrophils % (3-5) % Lymphocytes % (Manual) (20-40) % Atypical Lymphs % (Man) (0-6) % Monocytes % (Manual) (2-11) % Eosinophils % (Manual) (0-4) % Basophils % (Manual) (0-2) % Metamyelocytes % % Abs Neuts (Manual) (2.0-8.3) X10*3/uL Lymphocytes # (Manual) (1.2-4.9) X10*3/uL Atyp Lymphs # (Manual) x10*3/uL Monocytes # (Manual) (0.1-1.2) X10*3/uL Eosinophils # (Manual) (0.0-0.4) X10*3/uL Basophils # (Manual) (0.0-0.2) X10*3/uL Metamyelocytes # X10*3/uL Hypersegmented Neuts Platelet Estimate (NORMAL) Plt Morphology Comment RBC Morphology [place] Cells /OIF PT (10.0-13.1) SEC INR (0.9-1.1) Sodium (135-145) mmol/L Potassium (3.3-5.1) mmol/L Chloride (96-108) mmol/L Carbon Dioxide (22-29) mmol/L Anion Gap (12-20) BUN (9-16) mg/dL Creatinine (0.5-1.4) mg/dL Estim Creat Clear Calc Estimated GFR Random Glucose (60-115) mg/dL Lactic Acid (0.5-2.0) mmol/L Calcium (8.4-10.2) mg/dL Total Bilirubin (0.0-1.0) mg/dL Direct Bilirubin (0.0-0.5) mg/dL AST (5-37) U/L ALT (0-40) U/L Alkaline Phosphatase (39-117) U/L Troponin I High Sens (<3.5-35.0) ng/L B-Natriuretic Peptide (<100) pg/mL Total Protein (6.5-8.0) g/dL Albumin (3.5-5.0) g/dL COVID-19 (DOMENICO) Negative (Negative) COVID-19 Clin Com See Note Independent Interpretation I performed an independent interpretation of an: CT Scan Interpretation: My interpretation of the head CT and chest CT, no acute findings Radiology Impression Discussion of test interpretation with radiology: I have reviewed the radiologist's reading. Radiologist Impression: FINDINGS: Stable amorphous approximately 0.7 cm hyperattenuating focus in the right occipital lobe (10:122).. There is no evidence of acute intracranial hemorrhage or edematous territorial infarction. A few foci of hypoattenuation in the periventricular and deep white matter are consistent with mild microangiopathy. Alfonso-white matter differentiation is preserved. Proportional prominence of the ventricles and sulcal spaces. No evidence for obstructive hydrocephalus. No abnormal mass effect or midline shift. No extra-axial fluid collections. The cerebellar tonsils are positioned at the level of the foramen magnum, similar to prior. No acute soft tissue or osseous abnormalities. Mucosal thickening of the paranasal sinuses. Right mastoid effusion. Middle ear cavities are clear. ? CT/CT head/brain wo IV con IMPRESSION: 1.? No acute intracranial abnormality. 2.? Unchanged hyperattenuating focus in the right occipital lobe. 3.? Background of mild microangiopathy and generalized cerebral volume loss. 4.? Right mastoid effusion. FINDINGS: The thoracic inlet is within normal limits. The axillary regions are comparable. Some prominent nodes are noted once again. The partially visualized upper abdominal structures are comparable to previous. Some biliary air is once again seen. Centrally there is no bulky adenopathy in the mediastinum. Mild coronary calcifications are noted. This is a noncontrast study but the hilar regions do not appear pathologically enlarged. Imaging of the lung marcial. Right lung; No significant infiltrate or effusion. Small areas of nodularity are felt to be stable. No suspicious increase. No new finding. Left lung; Again no significant infiltrate or effusion. Probable apical scarring. Stable small areas of nodularity. Review of the bone windows does not demonstrate suspicion for a bony lesion. CT/CT chest wo IV con IMPRESSION: No acute finding. No infiltrate or effusion is seen here. Some scattered bullous disease is noted and some scattered areas of nodularity which are felt to be stable. Consider low-dose noncontrast follow-up in one year for continued evaluation. ? ? Independent Historian Clinical information obtained from an independent historian. History obtained from or confirmed by: Friend and EMS EMS gave the initial history. Patient was too altered to provide any history. Shortly after, patient's friend who witnessed the choking episode and who did the Heimlich maneuver on the patient provided the rest of the history. Critical Care Time Critical Care Time Critical Care Time: Yes Total Critical Care Time: 60 Attestation: I have personally provided critical care time. Time includes review of lab data, radiology results, discussion with consultants, and monitoring for potential decompensation. Intervention performed as documented. Discharge Plan Discharge Clinical Impression: Choking episode, Elevated lactic acid level, Altered mental status Patient Disposition: Admitted as Observation
[2022-06-13] MEDS: 0.9 % Sodium Chloride Flush 3 ML SYRINGE IVFLUSH (23:40)
[2022-06-13 23:48] VITALS: BP 154/87; PULSE 78; RESP 13; TEMP 36.4; O2SAT 99
[2022-06-14 04:47] VITALS: RESP 16
[2022-06-14] MEDS: Morphine Sulfate 4 MG/ML CARTRIDGE IVPUSH ×2 (04:47→10:50)
[2022-06-14] MEDS: Omeprazole 20 MG CAPSULE.DR PO (06:27)
[2022-06-14 06:47] LABS: Anion Gap 15 (12-20); Blood Urea Nitrogen 11 mg/dL (9-16); Calcium 7.8 mg/dL (8.4-10.2); Carbon Dioxide 17 mmol/L (22-29); Chloride 113 mmol/L (96-108); Creatinine Clr Calc Pharmacy 114.3; Estimated Glomerular Filt Rate > 60; Glucose Random 108 mg/dL (60-115); Potassium 4.5 mmol/L (3.3-5.1); Sodium 140 mmol/L (135-145)
[2022-06-14 06:50] LABS: Lactic Acid 0.8 mmol/L (0.5-2.0)
[2022-06-14 07:51] VITALS: BP 168/90; PULSE 73; RESP 18; TEMP 36.4; O2SAT 95
--- NOTE | 2022-06-14 08:09 | PC.NURSE ---
rn to rn report given to lenny. pt transfer to ed overflow unit.
[2022-06-14 08:17] LABS: Hematocrit 38.7 % (42.0-52.0); Hemoglobin 13.1 g/dl (14.0-18.0); Mean Corpuscular HGB Conc 33.9 g/dl (31.0-36.0); Mean Corpuscular Hemoglobin 30.7 pg (27.0-33.0); Mean Corpuscular Volume 90.6 fL (80.0-98.0); Mean Platelet Volume 8.2 fL (9.4-12.4); Platelet Count 321 X10*3/uL (160-400); Red Blood Count 4.27 X10*6/uL (4.60-5.80); Red Cell Distribution Width 12.7 % (11.0-16.0); White Blood Count 11.3 X10*3/uL (4.8-10.8)
[2022-06-14 08:29] VITALS: PULSE 73; RESP 18; O2SAT 95
[2022-06-14 09:01] VITALS: BP 169/73; PULSE 72; RESP 12; TEMP 36.6; O2SAT 96
--- NOTE | 2022-06-14 09:45 | MHC.EDTECH ---
Emptied patients urinal x2. Concetta O
[2022-06-14] MEDS: Ezetimibe 10 MG TABLET PO (10:26)
[2022-06-14] MEDS: amLODIPine Besylate 10 MG TABLET PO (10:26)
[2022-06-14] MEDS: Multivitamin TABLET 1 TAB PO (10:26)
[2022-06-14] MEDS: Apixaban 5 MG TABLET PO (10:27)
[2022-06-14] MEDS: Aspirin Enteric Coated 81 MG TABLET.DR PO (10:27)
[2022-06-14] MEDS: levETIRAcetam 500 MG TABLET PO (10:28)
[2022-06-14] MEDS: 0.9 % Sodium Chloride Flush 3 ML SYRINGE IVFLUSH (10:28)
[2022-06-14] MEDS: Primidone 50 MG TABLET 250 MG PO (10:28)
[2022-06-14] MEDS: Metoprolol Tartrate 100 MG TABLET PO (10:29)
[2022-06-14] MEDS: lisinopriL 10 MG TABLET PO (10:29)
[2022-06-14] MEDS: ondansetron HCL 4 MG/2 ML VIAL IVPUSH (10:50)
--- NOTE | 2022-06-14 11:14 | PM.DS ---
DS: Providers Provider Date of Service: 06/14/22 Date of admission: 06/13/22 20:45 Primary care physician: Unknown Physician DS: Diagnosis Discharge Diagnosis (1) Aspiration pneumonitis: Status: Acute (2) Hypoxia: Status: Acute DS: Summary Hospital Course Hospital Course: from initial hpi: Chief Complaint: Choking, hypoxia Pt is a 67-year-old male with a PMH significant for?extensive CAD with numerous cardiac catheterizations, 2 cardiac stents, pacemaker, history of recurrent DVT on Eliquis, small right occipital hemorrhage in 2019, numerous back surgeries chronically on Oxy 10 mg q5 daily, both total knee replacements, hip replacement, seizure disorder among other health concerns who presents to the ED after choking a roast beef sandwich.? Patient states that he attended a this afternoon and got home around 17:00 whereby he made a roast beef sandwich, patient does not remember much after this and the rest of the HPI obtained from his friend who was at his house.? His friend states that he attempted Heimlich maneuver when the patient started choking but could not dislodge and his sandwich.? Called EMS and the police arrived only a minute or 2 after the phone call and began performing the Heimlich maneuver.? EMS arrived shortly thereafter and essentially started performing CPR.? Patient during blue, became unresponsive, and was essentially receiving CPR before a large chunk of sandwhich was dislodged from his trachea.? Currently patient complains of diffuse whole body aches particularly in his head chest and throat.? Patient also complains of a full bladder; initially he said that he could not urinate however during the course of our interview he was able to do so.? Patient denies belly or abdominal pain.? No numbness or tingling. ? In the ED patient was tachycardic, tachypneic, and satting at 92 on RA; currently 94 on 2 L. Labs were significant for leukocytosis of 12.0, lactic acid of 11.0 with a repeat 8.2. CT of chest and head showed no acute findings, no infiltrates or effusion. Pt was treated with Zosyn, IVF, morphine. Pt will be admitted to the hospital for observation of hypoxia secondary to choking. hospital course: Patient was admitted for acute metabolic encephalopathy secondary to acute hypoxia from choking episode complicated by lactic acidosis which was not due to sepsis but due to hypoxia from choking. Patient was able to be weaned off oxygen and other than musculoskeletal pain from CPR performed is feeling better. He was educated on careful eating and will be discharged home. For his coronary disease he will continue aspirin, Eliquis, Ranexa, Crestor. For seizure disorder he will continue antiepileptics. For GERD he will continue PPI. Time Spent with Patient Time attestation: Total time managing care of this patient today ____ minutes. Discharge coordination time: Greater than 30 minutes Quality: Safe Use of Opioids Does Pt have an Active Cancer Diagnosis on the Problem List?: No Quality: Stroke Does the patient have a stroke diagnosis?: No Physical Exam Vital Signs: Vital Signs: Last Vital Signs Temp 97.9 F 06/14/22 09:01 Pulse 72 06/14/22 09:01 Resp 12 06/14/22 09:01 BP 169/73 H 06/14/22 09:01 Pulse Ox 96 06/14/22 09:01 O2 Del Method 06/14/22 09:01 O2 Flow Rate 3 06/14/22 07:51 BMI result Body Mass Index 30.5 General: AO X 3, no acute distress Resp: CTA bilateral, no accessory muscles used CVS: S1,S2,RRR GI: soft, non tender, non distended Neuro: motor grossly intact, alert Psych: appropriate affect, appropriate insight DS: Data Data Completed and Pending Labs on day of discharge: Laboratory Results - last 24 hr 06/13/22 06/13/22 06/13/22 18:55 18:55 18:55 WBC RBC Hgb Hct MCV MCH MCHC RDW Plt Count MPV Immature Gran % (Auto) Neut % (Auto) Lymph % (Auto) [place] % (Auto) Eos % (Auto) Baso % (Auto) Lymph # (Auto) [place] # (Auto) Eos # (Auto) Baso # (Auto) Abs Immat Gran (auto) Absolute Neuts (auto) Absolute Nucleated RBC Nucleated RBC % (auto) Neutrophils % (Manual) Band Neutrophils % Lymphocytes % (Manual) Atypical Lymphs % (Man) Monocytes % (Manual) Eosinophils % (Manual) Basophils % (Manual) Metamyelocytes % Abs Neuts (Manual) Lymphocytes # (Manual) Atyp Lymphs # (Manual) Monocytes # (Manual) Eosinophils # (Manual) Basophils # (Manual) Metamyelocytes # Hypersegmented Neuts Platelet Estimate Plt Morphology Comment RBC Morphology Fausto Cells PT 10.8 INR 0.9 Sodium Potassium Chloride Carbon Dioxide Anion Gap BUN Creatinine Estim Creat Clear Calc Estimated GFR Random Glucose Lactic Acid 11.0 H* Lactic Acid F/U @ 2Hr Lactic Acid F/U @ 4Hr Calcium Total Bilirubin Direct Bilirubin AST ALT Alkaline Phosphatase Troponin I High Sens 9.9 B-Natriuretic Peptide Total Protein Albumin Urine Color Urine Appearance Urine pH Ur Specific [place] Urine Protein Urine Glucose (UA) Urine Ketones Urine Blood Urine Nitrite Ur Leukocyte Esterase Urine RBC Urine WBC Ur Squamous Epith Cells Urine Bacteria Hyaline Casts COVID-19 ([facility]) COVID-19 Clin Com 06/13/22 06/13/22 06/13/22 18:56 18:56 18:56 WBC 12.0 H RBC 4.58 L Hgb 13.8 L Hct 42.9 MCV 93.7 MCH 30.1 MCHC 32.2 RDW 12.5 Plt Count 368 D MPV 8.4 L Immature Gran % (Auto) Cancelled Neut % (Auto) Cancelled Lymph % (Auto) Cancelled [place] % (Auto) Cancelled Eos % (Auto) Cancelled Baso % (Auto) Cancelled Lymph # (Auto) Cancelled [place] # (Auto) Cancelled Eos # (Auto) Cancelled Baso # (Auto) Cancelled Abs Immat Gran (auto) Cancelled Absolute Neuts (auto) Cancelled Absolute Nucleated RBC 0.000 Nucleated RBC % (auto) 0.0 Neutrophils % (Manual) 56 Band Neutrophils % 3 Lymphocytes % (Manual) 28 Atypical Lymphs % (Man) 5 Monocytes % (Manual) 2 Eosinophils % (Manual) 3 Basophils % (Manual) 1 Metamyelocytes % 2 Abs Neuts (Manual) 7.1 Lymphocytes # (Manual) 3.4 Atyp Lymphs # (Manual) 0.6 Monocytes # (Manual) 0.2 Eosinophils # (Manual) 0.4 Basophils # (Manual) 0.1 Metamyelocytes # 0.2 Hypersegmented Neuts PRESENT Platelet Estimate NORMAL Plt Morphology Comment NORMAL RBC Morphology NORMAL Fausto Cells 2+ (3-5) PT INR Sodium 136 Potassium 4.5 Chloride 102 Carbon Dioxide 16 L Anion Gap 23 H BUN 15 Creatinine 1.00 Estim Creat Clear Calc 78.8 Estimated GFR > 60 Random Glucose 224 H Lactic Acid Lactic Acid F/U @ 2Hr Lactic Acid F/U @ 4Hr Calcium 8.2 L D Total Bilirubin 0.2 Direct Bilirubin < 0.2 AST 26 ALT 18 Alkaline Phosphatase 99 Troponin I High Sens B-Natriuretic Peptide 50 Total Protein 6.3 L Albumin 3.8 Urine Color Urine Appearance Urine pH Ur Specific [place] Urine Protein Urine Glucose (UA) Urine Ketones Urine Blood Urine Nitrite Ur Leukocyte Esterase Urine RBC Urine WBC Ur Squamous Epith Cells Urine Bacteria Hyaline Casts COVID-19 ([facility]) COVID-19 Clin Com 06/13/22 06/13/22 06/13/22 18:57 21:06 21:14 WBC RBC Hgb Hct MCV MCH MCHC RDW Plt Count MPV Immature Gran % (Auto) Neut % (Auto) Lymph % (Auto) [place] % (Auto) Eos % (Auto) Baso % (Auto) Lymph # (Auto) [place] # (Auto) Eos # (Auto) Baso # (Auto) Abs Immat Gran (auto) Absolute Neuts (auto) Absolute Nucleated RBC Nucleated RBC % (auto) Neutrophils % (Manual) Band Neutrophils % Lymphocytes % (Manual) Atypical Lymphs % (Man) Monocytes % (Manual) Eosinophils % (Manual) Basophils % (Manual) Metamyelocytes % Abs Neuts (Manual) Lymphocytes # (Manual) Atyp Lymphs # (Manual) Monocytes # (Manual) Eosinophils # (Manual) Basophils # (Manual) Metamyelocytes # Hypersegmented Neuts Platelet Estimate Plt Morphology Comment RBC Morphology [place] Cells PT INR Sodium Potassium Chloride Carbon Dioxide Anion Gap BUN Creatinine Estim Creat Clear Calc Estimated GFR Random Glucose Lactic Acid Lactic Acid F/U @ 2Hr 2.2 H* Lactic Acid F/U @ 4Hr Calcium Total Bilirubin Direct Bilirubin AST ALT Alkaline Phosphatase Troponin I High Sens B-Natriuretic Peptide Total Protein Albumin Urine Color Yellow Urine Appearance Clear Urine pH 5.0 Ur Specific [place] 1.015 Urine Protein 30 (1+) H Urine Glucose (UA) 250 H Urine Ketones Negative Urine Blood Trace H Urine Nitrite Negative Ur Leukocyte Esterase Negative Urine RBC 0-2 Urine WBC 0-5 Ur Squamous Epith Cells 0-2 Urine Bacteria None Seen Hyaline Casts 3-5 COVID-19 ([facility]) Negative COVID-19 Clin Com See Note 06/13/22 06/14/22 06/14/22 23:34 06:19 06:19 WBC RBC Hgb Hct MCV MCH MCHC RDW Plt Count MPV Immature Gran % (Auto) Neut % (Auto) Lymph % (Auto) [place] % (Auto) Eos % (Auto) Baso % (Auto) Lymph # (Auto) [place] # (Auto) Eos # (Auto) Baso # (Auto) Abs Immat Gran (auto) Absolute Neuts (auto) Absolute Nucleated RBC Nucleated RBC % (auto) Neutrophils % (Manual) Band Neutrophils % Lymphocytes % (Manual) Atypical Lymphs % (Man) Monocytes % (Manual) Eosinophils % (Manual) Basophils % (Manual) Metamyelocytes % Abs Neuts (Manual) Lymphocytes # (Manual) Atyp Lymphs # (Manual) Monocytes # (Manual) Eosinophils # (Manual) Basophils # (Manual) Metamyelocytes # Hypersegmented Neuts Platelet Estimate Plt Morphology Comment RBC Morphology Fausto Cells PT INR Sodium 140 Potassium 4.5 Chloride 113 H Carbon Dioxide 17 L Anion Gap 15 BUN 11 Creatinine 0.69 Estim Creat Clear Calc 114.3 Estimated GFR > 60 Random Glucose 108 Lactic Acid 0.8 Lactic Acid F/U @ 2Hr Lactic Acid F/U @ 4Hr 1.0 Calcium 7.8 L Total Bilirubin Direct Bilirubin AST ALT Alkaline Phosphatase Troponin I High Sens B-Natriuretic Peptide Total Protein Albumin Urine Color Urine Appearance Urine pH Ur Specific [place] Urine Protein Urine Glucose (UA) Urine Ketones Urine Blood Urine Nitrite Ur Leukocyte Esterase Urine RBC Urine WBC Ur Squamous Epith Cells Urine Bacteria Hyaline Casts COVID-19 ([facility]) COVID-19 Clin Com 06/14/22 08:04 WBC 11.3 H RBC 4.27 L Hgb 13.1 L Hct 38.7 L MCV 90.6 MCH 30.7 MCHC 33.9 RDW 12.7 Plt Count 321 MPV 8.2 L Immature Gran % (Auto) Neut % (Auto) Lymph % (Auto) [place] % (Auto) Eos % (Auto) Baso % (Auto) Lymph # (Auto) [place] # (Auto) Eos # (Auto) Baso # (Auto) Abs Immat Gran (auto) Absolute Neuts (auto) Absolute Nucleated RBC 0.000 Nucleated RBC % (auto) 0.0 Neutrophils % (Manual) Band Neutrophils % Lymphocytes % (Manual) Atypical Lymphs % (Man) Monocytes % (Manual) Eosinophils % (Manual) Basophils % (Manual) Metamyelocytes % Abs Neuts (Manual) Lymphocytes # (Manual) Atyp Lymphs # (Manual) Monocytes # (Manual) Eosinophils # (Manual) Basophils # (Manual) Metamyelocytes # Hypersegmented Neuts Platelet Estimate Plt Morphology Comment RBC Morphology Fausto Cells PT INR Sodium Potassium Chloride Carbon Dioxide Anion Gap BUN Creatinine Estim Creat Clear Calc Estimated GFR Random Glucose Lactic Acid Lactic Acid F/U @ 2Hr Lactic Acid F/U @ 4Hr Calcium Total Bilirubin Direct Bilirubin AST ALT Alkaline Phosphatase Troponin I High Sens B-Natriuretic Peptide Total Protein Albumin Urine Color Urine Appearance Urine pH Ur Specific [place] Urine Protein Urine Glucose (UA) Urine Ketones Urine Blood Urine Nitrite Ur Leukocyte Esterase Urine RBC Urine WBC Ur Squamous Epith Cells Urine Bacteria Hyaline Casts COVID-19 ([facility]) COVID-19 Clin Com Discharge Plan Discharge Anticipated Discharge Date/Time: 06/14/22 11:12 Patient Disposition: Home, Self-Care Discharge Diagnosis: choking event Referrals: Physician,Unknown J [Primary Care Provider] - 1 Week Discharge Medications: Continued metoprolol tartrate 100 mg tablet 100 mg PO BID 90 Days Qty: 180 3RF aspirin [Adult Low Dose Aspirin] 81 mg tablet,delayed release (DR/EC) 81 mg PO DAILY amlodipine [Norvasc] 10 mg tablet 10 mg PO DAILY rosuvastatin [Crestor] 40 mg tablet 40 mg PO BEDTIME oxycodone 10 mg Tablet 10 mg PO Q5H PRN (Reason: Moderate Pain (Scale Score 5-6)) divalproex [Depakote ER] 250 mg tablet extended release 24 hr 250 mg PO BEDTIME levetiracetam [Keppra] 500 mg Tablet 500 mg PO BID nitroglycerin [Nitrostat] 0.4 mg tablet, sublingual 0.4 mg sublingual Q5M PRN (Reason: chest pain) Rx Instructions: do not exceed 3 doses per episode cyclobenzaprine 10 mg tablet 1 tab PO BID PRN (Reason: Muscle Spasm) Eliquis 5 mg tablet 5 mg PO BID ezetimibe [Zetia] 10 mg tablet 10 mg PO DAILY multivitamin [Daily Vitamin Formula] Tablet 1 tab PO DAILY ranolazine [Ranexa] 1,000 mg tablet extended release 12 hr 1,000 mg PO BID lisinopril [Zestril] 10 mg tablet 10 mg PO DAILY pantoprazole [Protonix] 40 mg tablet,delayed release (DR/EC) 40 mg PO DAILY@0630 primidone 250 mg tablet 250 mg PO BID Discharge Orders: Discharge Order (Routine); Ordered 06/14/22 Ordered By: Humza David Diet: Advance to usual diet Activity on Discharge: As tolerated Stand Alone Forms: Patient Portal Discharge page Care Plan Goals: recovery Health Concerns: choking Plan of Treatment: careful eating Assessment: see above
--- NOTE | 2022-06-14 11:31 | MHC.CM.PN ---
met with pt who lives with friends and independent cm in tervention is not indicated pt dcd home no services ordered curry brooks md
[2022-06-14 12:43] VITALS: BP 143/72; PULSE 61; RESP 16; TEMP 37.1; O2SAT 92
--- NOTE | 2022-06-14 12:51 | MHC.EDTECH ---
Pt friend called and spoke to nurse. Cruz Ruiz [phone]
== END 2022-06-14 14:20 | disposition home or self-care (01) ==
LOC: HO.ED 19:33 → HO.EDOVER 21:40
PROVIDERS: Admitting Provider Student in an Organized Health Care Education/Training Program; Emergency Provider Emergency Medicine; PCP Internal Medicine Geriatric Medicine; Visit Provider Internal Medicine
DX: J69.0 Pneumonitis due to inhalation of food and vomit (principal); R09.02 Hypoxemia; R06.02 Shortness of breath; R51.9 Headache, unspecified; M54.6 Pain in thoracic spine; R00.0 Tachycardia, unspecified; R30.0 Dysuria; I25.10 Atherosclerotic heart disease of native coronary artery without angina pectoris; Z20.822 Contact with and (suspected) exposure to COVID-19; Z79.01 Long term (current) use of anticoagulants; Z79.899 Other long term (current) drug therapy; Z86.718 Personal history of other venous thrombosis and embolism
CPT/HCPCS: 36415; 51798; 70450; 71250; 80048; 80076; 81001; 83605; 83880; 84484; 85007; 85027; 85610; 87040; 87635; 93005; 96374; 96375; 96376; 99222; 99285; J2270; J2405; J2543

== ENCOUNTER → 2022-07-25 08:34 | Outpatient (REF) | payer MEDICARE, MEDICAID, SELFPAY ==
--- NOTE | 2022-07-25 08:36 | CA_ITS ---
Transthoracic Echocardiogram Amended Patient (Last, First, Middle): Myles Tipton, Gender: Male Date of : 1955 Age: 67 Procedure Date: 07/25/2022 Procedure Type: Transthoracic Echocardiogram Location: OP Height: 180.34 cm Weight: 92.99 kg BSA: 2.13 m2 Heart Rate: 68 bpm BP: 140 / 75 mmHg Beef Pusher: DENISE Gregory MD: Oren Mueller MD Residential Electrician: Jorje Springer MD Symptoms: I25.10 - Atherosclerotic heart disease of [place] coronary artery without... Study Quality: Adequate ECG Rhythm: Sinus Conclusions: - 1. Normal LV systolic function with asymmetric septal hypertrophy with impaired relaxation filling pattern, subaortic obstruction cannot be entirely ruled out 2. Increased gradient across aortic valve, possibility of early mild aortic stenosis 3. Normal RV systolic pressure 4. No gross pericardial effusion Findings Left Ventricle Normal left ventricular size, thickness, and systolic function. The visually estimated ejection fraction is between 65-70%. Spectral Doppler is indicative of an impaired relaxation filling pattern. E/E prime ratio is between 8 and 15 consistent with indeterminate filling pressures. There is moderate septal asymmetric hypertrophy. Right Ventricle Normal right ventricular cavity size and systolic function. There is a pacemaker wire seen in the right ventricle. Atria The left atrium is normal in size. There is lipomatous hypertrophy of the interatrial septum. Interatrial shunt cannot be excluded. The right atrium was not well visualized. A pacemaker wire is identified in the right atrium. Aortic Valve The aortic valve was not well visualized. There is mild calcification of the aortic valve. The mean gradient is 13 mmHg. There is no aortic valve regurgitation. Mildly increased gradient across the aortic valve, subaortic obstruction cannot be entirely ruled out on this study. Mild aortic stenosis is also likely Mitral Valve The mitral valve was not well visualized. There is mild mitral annular calcification. There is trace mitral valve regurgitation. There is no mitral valve stenosis. Pulmonic Valve The pulmonic valve was not well visualized. Tricuspid Valve Likely normal tricuspid valve structure and function. There is trace tricuspid valve regurgitation. The right ventricular systolic pressure is normal. The right ventricular systolic pressure is 16 mmHg. Normal right atrial pressure. There is no evidence of pulmonary hypertension. Great Vessels All visible segments of the aorta are normal in size. The pulmonary artery was not well visualized. Venous The inferior vena cava is normal in size and collapses greater than 50% with inspiration. Pericardium/Pleural There is no evidence of pericardial effusion. Measurements 2D Linear Measurements IVSd: 1.60 0.6-0.9/0.6-1.0 cm LVIDd: 4.48 3.9-5.3/4.2-5.9 cm LVIDd Index: 2.10 2.4-3.2/2.2-3.1 cm/m2 LVIDs: 3.38 2.0-3.6 cm LVPWd: 1.09 0.7-1.1 cm LA Diam: 3.30 2.7-3.8/3.0-4.0 cm LAIDs Index: 1.55 1.5-2.3 cm/m2 LV Mass: 289.83 67-162/88-224 g LV Mass Index: 136.07 43-95/49-115 g/m2 LVOT Diam: 1.80 3.0+(-)1.3 cm 2D Volumes LA Vol: 15.10 2D Systolic Function EF 4C: 71.50 >55% EF 2C: 66.80 >55% EF BiP: 69.10 >55% Mitral Valve MV Pk E: 0.65 MV PK A: 0.67 MV Decel Time: 239.00 E/A: 1.00 E'Lateral: 9.03 E'Medial: 5.66 E/E' Med: 11.40 E/E' Lat: 7.10 PHT: 70.00 MVA PHT: 3.14 Decel S[place]: 2.70 Aortic Valve AoV Pk Tra: 2.25 AoV Mn Tra: 1.65 AoV VTI: 0.46 AoV Pk Grad: 20.00 Aov Mn Grad: 13.00 HAILEY Cont.VTI: 2.15 LVOT LVOT Pk Tra: 1.93 LVOT Mn Tra: 1.41 LVOT VTI: 0.39 LVOT Pk Grad: 15.00 LVOT Mn Grad: 9.00 LVOT Diam: 1.80 LVOT Area: 2.54 Diastolic Function MV Pk E: 0.65 MV Pk A: 0.67 E/A: 1.00 E'Medial: 5.66 E/E' Med: 11.40 E' Laterial: 9.03 E/E' Lat: 7.10 Right Ventricle TAPSE (mm): 29.10 TVS' Tra: 19.00 Tricuspid Valve TR Pk Tra: 1.78 TR Pk Grad: 13.00 RA Press: 3.00 RVSP: 16.00 Great Vessels Aorta Sinus of Valsalva: 3.50 2.0-3.5 cm Ao Asc: 3.30 2.1-3.4 cm Pulmonary Valve PV Pk Tra: 1.19 Peak PV Grad: 6.00 Updated in Other Vendor System with Status of Final Jorje Springer MD electronically signed on 07/25/2022 12:02:05 PM with status of Final
== END ==
LOC: HO.CARD 08:34
PROVIDERS: PCP Internal Medicine Geriatric Medicine; Visit Provider Internal Medicine
DX: I25.10 Atherosclerotic heart disease of native coronary artery without angina pectoris (principal); I48.92 Unspecified atrial flutter
CPT/HCPCS: 93306

== ENCOUNTER 2022-09-09 11:27 | Outpatient (REF) | payer MEDICARE, MEDICAID, SELFPAY ==
[2022-09-09 14:27] LABS: Valproate < 12.5 mcg/mL (50.0-100.0)
== END 2022-09-09 11:28 | disposition home or self-care (01) ==
LOC: HO.LAB 11:27
PROVIDERS: PCP Internal Medicine Geriatric Medicine; Visit Provider Emergency Medicine
DX: Z13.89 Encounter for screening for other disorder (principal)
CPT/HCPCS: 36415; 80164

== ENCOUNTER 2022-09-10 08:49 | Outpatient (REF) | payer MEDICARE, MEDICAID, SELFPAY ==
[2022-09-10 09:28] LABS: Basophils Absolute Auto 0.1 X10*3/uL (0.0-0.2); Basophils Percent Auto 0.9 % (0-2); Eosinophils Absolute Auto 0.4 X10*3/uL (0.0-0.4); Eosinophils Percent Auto 4.8 % (0-4); Hematocrit 42.2 % (42.0-52.0); Hemoglobin 14.1 g/dl (14.0-18.0); Imm Gran Abs Auto 0.04 X10*3/uL (0.00-0.03); Imm Gran Pct Auto 0.5 % (0.0-0.4); Lymphocytes Absolute Auto 1.8 X10*3/uL (1.2-4.9); Lymphocytes Percent Auto 21.6 % (20-40); MANUAL DIFF FLAG SCAN; Mean Corpuscular HGB Conc 33.4 g/dl (31.0-36.0); Mean Corpuscular Hemoglobin 30.4 pg (27.0-33.0); Mean Corpuscular Volume 90.9 fL (80.0-98.0); Monocytes Absolute Auto 0.7 X10*3/uL (0.1-1.2); Monocytes Percent Auto 8.9 % (2-11); Neutrophils Absolute Auto 5.2 x10*3/uL (2.0-8.3); Neutrophils Percent Auto 63.3 % (45-73); PLT CLUMP 1; Red Blood Count 4.64 X10*6/uL (4.60-5.80); Red Cell Distribution Width 13.7 % (11.0-16.0); SCAN SMEAR FLAG 1
[2022-09-10 09:47] LABS: Alanine Aminotransferase 188 U/L (0-40); Albumin Level 3.9 g/dL (3.5-5.0); Alkaline Phosphatase 878 U/L (39-117); Anion Gap 17 (12-20); Aspartate Amino Transferase 69 U/L (5-37); Bilirubin Total 1.1 mg/dL (0.0-1.0); Blood Urea Nitrogen 14 mg/dL (9-16); Calcium 9.1 mg/dL (8.4-10.2); Carbon Dioxide 24 mmol/L (22-29); Chloride 101 mmol/L (96-108); Estimated Glomerular Filt Rate > 60; Glucose Random 116 mg/dL (60-115); Lipase 138 U/L (8-78); Potassium 4.8 mmol/L (3.3-5.1); Sodium 137 mmol/L (135-145); Total Protein 6.7 g/dL (6.5-8.0)
[2022-09-10 09:56] LABS: Platelet Count 296 X10*3/uL (160-400); SLIDE REVIEW VERIFIED; White Blood Count 8.2 X10*3/uL (4.8-10.8)
[2022-09-10 09:57] LABS: TSH reflex Free T4 1.63 uIU/mL (0.32-4.0)
[2022-09-11 07:23] LABS: HBS Num1 16.29 mIU/mL (0-7.99); HBsAGNum1 0.26 S/CO (0.00-0.99); Hepatitis A Antibody IgM 0.18 Index (0-0.79); Hepatitis B Core Antibody Nonreactive (Nonreactive); Hepatitis B Surface Antigen Negative (Negative); ~HepC Num1 0.15 S/CO (0.00-0.79); ~Hepatitis A Antibody IgM Nonreactive (Nonreactive); ~Hepatitis B Surface Antibody REACTIVE (Nonreactive); ~Hepatitis C Antibody Nonreactive (Nonreactive)
== END 2022-09-10 08:50 | disposition home or self-care (01) ==
LOC: HO.LAB 08:49
PROVIDERS: PCP Internal Medicine Geriatric Medicine; Visit Provider Emergency Medicine
DX: Z13.89 Encounter for screening for other disorder (principal)
CPT/HCPCS: 36415; 80053; 83690; 84443; 85025; 86704; 86706; 86709; 86803; 87340

== ENCOUNTER 2022-09-10 12:35 | Inpatient (IN) | payer MEDICARE, MEDICAID, SELFPAY ==
--- NOTE | ~2022-09-10 | CT_ITS ---
EXAMINATION: CT ABDOMEN AND PELVIS WITH CONTRAST CLINICAL INFORMATION: Abdominal pain, status post ERCP. COMPARISON: CT abdomen/pelvis 09/10/2022. TECHNIQUE: Multidetector volumetric images were obtained from the superior aspect of the liver through the pubic symphysis following administration 85 mL of Omnipaque 350 intravenous contrast. Sagittal and coronal reformatted images were obtained on the technologist's workstation. Oral contrast: Yes This CT examination was performed using dose optimization techniques as appropriate, variously including the following: *Automated exposure control *Adjustment of mA and/or kV according to patient size (this includes techniques or standardized protocols for targeted exams where dose is matched to indication/reason for exam; i.e. extremities or head) *Use of iterative reconstruction technique DLP: 674 mGy-cm FINDINGS: LUNG BASES: Emphysematous changes with large blebs in the right lower lung. No consolidation or pleural effusion. Partially imaged cardiac pacer leads and coronary artery calcifications. LIVER, GALLBLADDER, AND BILIARY TREE: Again noted calcified granuloma in the hepatic dome (3:17), subcapsular hypodensity in the posterior right hepatic lobe (3:19) and focus of enhancement in the inferior right hepatic lobe (3:34), stable dating back to 2019. The liver is normal in size, shape and attenuation. Left-sided intrahepatic pneumobilia, expected given recent ERCP. Mild intra and extrahepatic biliary ductal dilatation is decreased compared to 09/10/2022. No definite hyperdense choledocholithiasis noted. Cholecystectomy. PANCREAS: Diffuse fatty infiltration. No peripancreatic free fluid or fat stranding. SPLEEN: Unremarkable. ADRENAL GLANDS: Unremarkable. KIDNEYS AND URETERS: The kidneys are normal in size, shape, and attenuation. No hydronephrosis, hydroureter, or calculi seen. No perinephric stranding. BLADDER: Unremarkable. GASTROINTESTINAL TRACT: The stomach and the small bowel are within normal limits. Duodenal and colonic diverticuli. No pericolonic inflammatory changes to suspect acute colitis or diverticulitis. Oral contrast opacifies the entirety of the small bowel, colon and rectum, no extraluminal contrast. No bowel obstruction. Normal appendix. No free air. ABDOMINAL WALL: Small fat-containing bilateral inguinal hernias. LYMPH NODES: No lymphadenopathy. VASCULAR: Atherosclerotic disease. Abdominal aorta is normal in caliber. Main portal vein is patent. PELVIC VISCERA: Enlarged prostate. OSSEOUS STRUCTURES: No acute or aggressive appearing osseous abnormalities. Partially imaged right-sided hip arthroplasty. CT/CT abdomen pelvis w IV con IMPRESSION: 1. Expected pneumobilia status post ERCP. 2. Mild intra and extrahepatic biliary ductal dilatation is decreased compared to 09/10/2022. 3. No significant peripancreatic inflammatory changes to suspect acute pancreatitis by imaging. 4. No evidence of active inflammatory bowel changes, obstruction or perforation.
--- NOTE | ~2022-09-10 | CT_ITS ---
EXAMINATION: CT ABDOMEN AND PELVIS WITH CONTRAST CLINICAL INFORMATION: Diffuse abdominal pain. COMPARISON: 04/25/2020 TECHNIQUE: Multidetector volumetric images were obtained from the superior aspect of the liver through the pubic symphysis following administration 85 mL of Omnipaque 350 intravenous contrast. Sagittal and coronal reformatted images were obtained on the technologist's workstation. Oral contrast: No This CT examination was performed using dose optimization techniques as appropriate, variously including the following: *Automated exposure control *Adjustment of mA and/or kV according to patient size (this includes techniques or standardized protocols for targeted exams where dose is matched to indication/reason for exam; i.e. extremities or head) *Use of iterative reconstruction technique DLP: 664 mGy-cm FINDINGS: LUNG BASES: Centrilobular emphysema. Findings include linear opacity of scar or atelectasis of the lateral left lower lobe. No acute abnormalities within the visualized bases. Dual-chamber cardiac pacemaker in place. LIVER: Liver has normal size and contour. Old calcified granuloma of hepatic segment 7. A small, 1 cm focus of contrast enhancement within hepatic segment 6 corresponds to the same location as the 1.4 cm enhancing focus seen on 04/25/2020 and is highly suggestive of a cavernous hemangioma. No suspicious liver lesion. GALLBLADDER AND BILIARY TREE: Gallbladder is surgically absent. The intrahepatic ducts are dilated and common duct measures up to at least 1.2 cm diameter (compared to 0.7 cm on 04/25/2020). There appear to be a few filling defects in the lumen of the distal CBD. PANCREAS: No acute findings within the atrophied pancreas. No edema, pancreatic ductal dilatation or mass. SPLEEN: Normal. ADRENAL GLANDS: Normal. KIDNEYS AND URETERS: The kidneys have normal size and cortical thickness. No perinephric edema or fluid collection. No urolithiasis or hydroureteronephrosis. BLADDER: Unremarkable. BOWEL AND PERITONEUM: Stomach is unremarkable. No dilated loops of bowel. The appendix is is not identified; however, no inflammatory changes in the right lower quadrant. There are diverticula of the descending and sigmoid colon. No overt bowel wall thickening or mesenteric fat stranding. No free fluid or pneumoperitoneum. ABDOMINAL WALL: Unremarkable. VASCULATURE: Atherosclerosis of the abdominal aorta without aneurysm. Inferior cava is normal. LYMPH NODES: No pathologic sized lymph nodes in the abdomen or pelvis. No inguinal lymphadenopathy. PELVIC VISCERA: Large prostate gland measures approximately 4.9 x 3.9 x 4.5 cm. Seminal vesicles are unremarkable. No pelvic free fluid. MUSCULOSKELETAL: Rrik-sy-wlwxfhzz facet arthropathy of the lower lumbar spine. Also, there are mild and moderate discovertebral degenerative changes of the spine. No suspicious bone lesions. There is chronic osseous fragmentation or irregular enthesophyte of the superior aspect of the right greater trochanter, status post right total hip arthroplasty. No loosening of the visualized prosthetic components. CT/CT abdomen pelvis w IV con IMPRESSION: * The abnormal dilatation of the common duct and intrahepatic ducts is new since 04/25/2020. This appears to be due to choledocholithiasis. Recommend correlation with bilirubin levels and liver function tests. * Colonic diverticulosis without diverticulitis. * Prostatomegaly. * Small hemangioma of hepatic segment .
--- NOTE | ~2022-09-10 | FL_ITS ---
EXAMINATION: XR FLUOROSCOPY WITH IMAGES CLINICAL INFORMATION: Intrahepatic and extrahepatic biliary ductal dilatation. COMPARISON: CT abdomen and pelvis with IV contrast 09/10/2022, ultrasound abdomen right upper quadrant 09/10/2022. TECHNIQUE: Fluoroscopy Supervised By: Dr. Nathalia Garza. Fluoroscopy Time: 3.7 minutes. Cumulative Dose: 134.9 mGy. Images: 11. FINDINGS: There is contrast in the biliary ducts. There is ductal dilatation is noted on the CT. No focal stricture seen. There are some scattered faint lucencies which may represent gas bubble. There is a questionable round filling defect distal common duct on one of the images but this may represent balloon from the device. FL/FL guidance in OR IMPRESSION: Fluoroscopy for GI procedure.
--- NOTE | ~2022-09-10 | FL_ITS ---
EXAMINATION: XR FL WITH IMAGES CLINICAL INFORMATION: ERCP. COMPARISON: CT abdomen and pelvis 09/14/2022. TECHNIQUE: Fluoroscopy Supervised By: Dr. Nathalia Garza. Fluoroscopy Time: 0.9 minutes. Cumulative Dose: 18.9 mGy. DAP: 5.15 Gycm2. Images: 13. FINDINGS: Contrast is seen in the biliary tree. A plastic stent was placed. Some contrast is seen in the blind-ending cystic duct. Please see Dr. Nathalia Garza's report for full details. FL/FL guidance in OR IMPRESSION: Fluoroscopy was provided to referring physician for ERCP.
--- NOTE | ~2022-09-10 | US_ITS ---
EXAMINATION: US ABDOMEN LIMITED CLINICAL INFORMATION: CT scan shows common bile duct stones. COMPARISON: CT abdomen pelvis earlier today TECHNIQUE: Real-time imaging of the right upper quadrant abdominal viscera. FINDINGS: PANCREAS: Pancreas could not be seen secondary to overlying bowel gas. LIVER: The liver is normal in size. The liver contour is normal. There is diffuse increased liver parenchymal echogenicity, consistent with hepatic steatosis. A echogenic lesion in the right lobe of the liver is seen measuring 6 mm corresponding to the probable hemangioma seen on the CT scan (3:33). No other focal hepatic lesion. There is dilatation of intrahepatic biliary ducts, most prominent in the left lobe of the liver as seen on the CT scan earlier today GALLBLADDER: Surgically absent. COMMON BILE DUCT: Dilated measuring measuring 1.2 cm in diameter. The filling defects seen in the common bile duct at the time of the CT scan earlier today could not be seen on the ultrasound exam is this portion of the duct may have been obscured by bowel gas. RIGHT KIDNEY: Normal. No hydronephrosis. No renal calculi or focal parenchymal lesions. The kidney measures 12.3 cm in maximum dimension. FREE FLUID: None. US/US abdomen limited IMPRESSION: 1. The common bile duct is dilated and there is intrahepatic biliary ductal dilatation. The filling defects seen in the common bile duct on the CT scan earlier today could not be seen on the ultrasound exam. MRCP or ERCP would be helpful for further evaluation. 2. Incidental note made of hepatic steatosis and small hemangioma right lobe of liver.
[2022-09-10 13:00] VITALS: BP 146/80; PULSE 60; RESP 19; TEMP 36.8; O2SAT 97; BMI 27.0
--- NOTE | 2022-09-10 13:01 | ED_ITS ---
HPI - General Adult General Chief complaint: Abdominal Pain <TAL Leal - Last Filed: 09/10/22 13:02> Stated complaint: Abnormal Labs <TAL Leal - Last Filed: 09/10/22 13:02> Time Seen by Provider: 09/10/22 16:02 <TAL Leal - Last Filed: 09/10/22 13:02> Source: patient and RN notes reviewed <Arsh Savage - Last Filed: 09/10/22 18:04> Mode of arrival: ambulatory <Arsh Savage - Last Filed: 09/10/22 18:04> Limitations: no limitations <Arsh Savage - Last Filed: 09/10/22 18:04> History of Present Illness HPI narrative: This is a 67-year-old male past medical history significant for atrial fibrillation on apixaban, sick sinus syndrome status post pacemaker implantation, coronary artery disease, peripheral artery disease, GERD presents for evaluation of ?abnormal liver enzymes. ? Patient reports that he has not been feeling well for the last 2 weeks. He reports abdominal pain that is worse after eating as well as nausea and vomiting. The patient reports an approximately 20 lb weight loss in the last 2 weeks He reports fevers this past weekend but none today Patient reports that he went to urgent care earlier today and was told to go to the ER because ?they said my liver enzymes were elevated especially my lipase. ? Of note, the patient outpatient lab today at 9:16 a.m. significant for AT bili of 1.1, AST of 69 and ALT of 188, alk-phos of 878 and a lipase of 138. The patient reports a history of alcohol use but has not had a drink in 12 years. Patient's surgical history includes appendectomy and cholecystectomy many years ago <Arsh Savage - Last Filed: 09/10/22 18:04> Related Data Home medications: Home Medications Medication Instructions Recorded Confirmed amlodipine 10 mg tablet (Norvasc) 10 mg PO DAILY 04/25/20 09/10/22 aspirin 81 mg tablet,delayed 81 mg PO DAILY 04/25/20 09/10/22 release (Adult Low Dose Aspirin) rosuvastatin 40 mg tablet (Crestor) 40 mg PO BEDTIME chloestrol 04/25/20 09/10/22 oxycodone 10 mg tablet 10 mg PO Q5H PRN Moderate Pain 04/26/20 09/10/22 (Scale Score 5-6) divalproex 250 mg tablet,extended 250 mg PO BEDTIME 09/08/20 09/10/22 release 24 hr (Depakote ER) ezetimibe 10 mg tablet (Zetia) 10 mg PO DAILY 10/24/20 09/10/22 lisinopril 10 mg tablet (Zestril) 10 mg PO DAILY 10/24/20 09/10/22 multivitamin (Daily Vitamin 1 tab PO DAILY 10/24/20 09/10/22 Formula tablet) pantoprazole 40 mg tablet,delayed 40 mg PO DAILY@0630 10/24/20 09/10/22 release (Protonix) apixaban 5 mg tablet (Eliquis) 5 mg PO BID 01/08/21 09/10/22 levetiracetam 500 mg tablet 500 mg PO BID 06/19/21 06/28/22 (Keppra) nitroglycerin 0.4 mg sublingual 0.4 mg sublingual Q5M PRN chest 11/29/21 09/10/22 tablet (Nitrostat) pain primidone 250 mg tablet 250 mg PO BID 03/05/22 06/28/22 cyclobenzaprine 10 mg tablet 1 tab PO BID PRN Muscle Spasm 06/13/22 09/10/22 isosorbide mononitrate 30 mg 30 mg PO DAILY 09/10/22 09/10/22 tablet,extended release 24 hr ranolazine 1,000 mg 1,000 mg PO BID 09/10/22 09/10/22 tablet,extended release,12 hr Previous Rx's Medication Instructions Recorded metoprolol tartrate 100 mg tablet 100 mg PO BID 90 days #180 tabs 02/26/22 <TAL Leal - Last Filed: 09/10/22 13:02> Allergies/adverse reactions: Allergies Allergy/AdvReac Type Severity Reaction Status Date / Time bee pollen [BEE STINGS] Allergy Severe ANAPHYLAXIS Verified 06/28/22 13:49 indomethacin [Indocin] Allergy Severe anaphylaxis Verified 06/28/22 13:49 tramadol [Ultram] Allergy Severe anaphylaxis Verified 06/28/22 13:49 <TAL Leal - Last Filed: 09/10/22 13:02> Review of Systems Constitutional: Constitutional: Reports as per HPI, Reports fever(s), Denies headache(s), Reports malaise and Reports weight loss <Arsh Savage - Last Filed: 09/10/22 18:04> ENT: Denies headache(s) <Arsh Savage - Last Filed: 09/10/22 18:04> Cardiovascular: Cardiovascular: Denies chest pain and Denies dyspnea <Arsh Savage - Last Filed: 09/10/22 18:04> Respiratory: Respiratory: Denies cough and Denies dyspnea <Arsh Savage - Last Filed: 09/10/22 18:04> Gastrointestinal: Gastrointestinal: Reports abdominal pain, Denies constipation, Reports diarrhea and Reports vomiting <Arsh Savage - Last Filed: 09/10/22 18:04> Genitourinary: Genitourinary: Denies difficulty urinating and Denies dysuria <Arsh Savage - Last Filed: 09/10/22 18:04> Neurologic: Denies headache(s) <Arsh Savage - Last Filed: 09/10/22 18:04> [facility] Past Medical History Medical History: Medical History Atherosclerotic cardiovascular disease Brain bleed Brain lesion CAD (coronary artery disease) COVID-19 vaccine administered DVT (deep venous thrombosis) Esophagitis Essential hypertension GERD (gastroesophageal reflux disease) Headache History of chemotherapy Myocardial infarction Obstructive sleep apnea (~2018) On anticoagulant therapy Pacemaker (~05/2013) Personal history of nicotine dependence Psychotic disorder Seizures (~04/2020) Syncope Tremor Tubular adenoma of colon <TAL Leal - Last Filed: 09/10/22 13:02> Surgical History: Surgical History History of appendectomy History of cardiac catheterization History of cholecystectomy History of colonoscopy (~09/2020) History of esophagogastroduodenoscopy (EGD) (~09/2020) History of permanent cardiac pacemaker placement (~05/2013) History of right knee surgery (~12/2013) History of spinal surgery History of total right hip replacement (~06/2012) Stented coronary artery <TAL Leal - Last Filed: 09/10/22 13:02> Family History Family History: Family History Father Heavy cigarette smoker Throat cancer Mother Heart disease <TAL Leal - Last Filed: 09/10/22 13:02> Social History Social History: Social History Household Members: Other Household Members Other:: shares house with a friend Housing: House Are you a primary home health care physician to a significant other at home: No Do you presently have visiting nurse or other home services: No (pt feels he will need it) Alcohol intake: former Patient Tobacco Use Status: Former Tobacco user Quit Date: 8 days ago (as of 01/07/22) Tobacco use type: Cigarette Years Smoked: 25 years (age [age] then 49 to present, max 1.5ppd, now 1/2ppd) Smoked in Last 30 Days: Yes Use of substances other than those prescribed or required for medical reasons: No Advance Directives: Yes Advance Directives on File: Yes Advance Directives Date on File: 12/16/20 service: No Current occupational status: employed and retired <TAL Leal - Last Filed: 09/10/22 13:02> Physical Exam ED Vital Signs: Vital Signs - 24 hr 09/10/22 13:00 09/10/22 15:50 Temperature 98.2 F 97.5 F Pulse Rate 60 60 Respiratory Rate 19 16 Blood Pressure 146/80 H 113/62 Pulse Oximetry 97 98 Oxygen Delivery Method Room Air Room Air BMI result Body Mass Index 27.0 <TAL Leal - Last Filed: 09/10/22 13:02> Vital Signs - 24 hr 09/10/22 13:00 09/10/22 15:50 Temperature 98.2 F 97.5 F Pulse Rate 60 60 Respiratory Rate 19 16 Blood Pressure 146/80 H 113/62 Pulse Oximetry 97 98 Oxygen Delivery Method Room Air Room Air BMI result Body Mass Index 27.0 <Arsh Savage - Last Filed: 09/10/22 18:04> Const General: healthy appearing, comfortable, no acute distress, alert and awake <[place] - Last Filed: 09/10/22 18:04> Nutritional Appearance: well nourished <Arsh O Last Filed: 09/10/22 18:04> Orientation/consciousness: patient oriented x3 <Arsh O Last Filed: 09/10/22 18:04> HENMT Head: Yes normocephalic and Yes atraumatic <Arsh Last Filed: 09/10/22 18:04> Throat: Yes posterior oropharynx normal <Arsh O Last Filed: 09/10/22 18:04> Eyes Eyelids: Yes eyelids normal <Arsh O Last Filed: 09/10/22 18:04> Conjunctivae: conjunctivae normal <Arsh O Last Filed: 09/10/22 18:04> Sclerae: sclerae normal <Arsh Last Filed: 09/10/22 18:04> Corneas: corneas normal <Arsh Last Filed: 09/10/22 18:04> Pupils: Equal, round and reactive pupils present <Arsh Hardy Last Filed: 09/10/22 18:04> EOM: EOMs intact bilaterally <Arsh Hardy Last Filed: 09/10/22 18:04> Neck Neck: Yes full ROM <Arsh O Last Filed: 09/10/22 18:04> Resp Effort & Inspection: normal respiratory effort, able to speak in complete sentences, no audible wheezes and not labored <Arsh O Last Filed: 09/10/22 18:04> Auscultation: clear to auscultation bilaterally <Arsh O Last Filed: 09/10/22 18:04> Cardio Rate: regular rate <Arsh O Last Filed: 09/10/22 18:04> Rhythm: regular rhythm <Arsh O Last Filed: 09/10/22 18:04> GI Inspection: No distended <Arsh Savage - Last Filed: 09/10/22 18:04> Palpation (GI): Soft to palpation, not firm, Tenderness to palpation present (GI) in the RLQ and periumbilically, Guarding due to palpation present (GI) and not rigid <Arsh Savage - Last Filed: 09/10/22 18:04> Auscultation: normoactive bowel sounds <Arsh Savage - Last Filed: 09/10/22 18:04> Skin General skin exam: no rashes or lesions noted and elasticity normal <Arsh Savage - Last Filed: 09/10/22 18:04> Neuro General: patient oriented x3 <Arsh Savage - Last Filed: 09/10/22 18:04> Cranial nerves: Yes CN's II-XII intact bilaterally, Yes Equal, round and reactive pupils present and Yes Bilaterally intact EOM present <Arsh Savage - Last Filed: 09/10/22 18:04> Cognition (Neuro): normal cognition <Arsh Savage - Last Filed: 09/10/22 18:04> Extrem Other: Moving all extremities well without any obvious deformities <Arsh Savage - Last Filed: 09/10/22 18:04> Course Course Course Narrative: This is an RME: Additional HPI, ROS, PE not included below will be deferred to primary provider. 67-year-old male history of paroxysmal AFib on apixaban, , CAD, pacemaker in place since 2012, sick sinus syndrome, history of DVT again anticoagulated on apixaban, GERD presenting to the emergency department with diffuse abdominal pain, fatigue, malaise, intermittent fevers and chills, myalgias, decreased p.o. intake times 15 days. Patient was seen at Urgent Care he thought he had the flu however outpatient labs were done and he was noted to have elevated liver enzymes, increased lipase. Patient former drinker however has not drink for 12 years. Patient just does not feel right. Denies chest pain, shortness of breath. Physical exam with diffuse abdominal discomfort plan labs, imaging, fluids. <TAL Leal - Last Filed: 09/10/22 13:02> Reevaluation(s) Reevaluation #1: Patient continued to have abdominal pain and re-evaluation. He CT scan shows concern for choledocholithiasis. Will discuss with on-call GI, Dr. Melchor to see if ERCP is a possibility at this facility. The patient believes his pacemaker is incompatible with MRI <Arsh Hardy - Last Filed: 09/10/22 18:04> Time: 17:05 <Arsh O - Last Filed: 09/10/22 18:04> Reevaluation #2: Discussed with GI who recommends admission for ERCP. The patient does not require MRCP as the common bile duct stones were seen on the CT. She does recommend getting an ultrasound of the abdomen which was ordered. I discussed with the hospitalist, Dr. Rosario who will admit the patient. <[place] - Last Filed: 09/10/22 18:04> Time: 17:20 <Arsh O - Last Filed: 09/10/22 18:04> Medications Administered Generic Name Dose Route Start Last Admin Trade Name Freq PRN Reason Stop Dose Admin Sodium Chloride 1,000 mls @ 999 mls/hr 09/10/22 17:45 09/10/22 18:02 Ns IV 09/10/22 18:45 999 mls/hr .Q1H1M CRICKET Administration Discontinued Medications Generic Name Dose Route Start Last Admin Trade Name Freq PRN Reason Stop Dose Admin Sodium Chloride 1,000 mls @ 999 mls/hr 09/10/22 13:15 09/10/22 15:55 Ns IV 09/10/22 14:15 Infused .Q1H1M CRICKET Infusion Iohexol 100 ml 09/10/22 15:46 09/10/22 15:47 Iohexol 350 Mg/Ml 100 Ml Infus..Btl IV 09/10/22 15:47 85 ml ONCE ONE Administration Morphine Sulfate 4 mg 09/10/22 17:06 09/10/22 17:47 Morphine Sulfate 4 Mg/Ml Cartridge IVPUSH 09/10/22 17:07 4 mg ONCE ONE Administration Protocol Ondansetron HCl 4 mg 09/10/22 17:06 09/10/22 17:44 Ondansetron Hcl 4 Mg/2 Ml Vial IVPUSH 09/10/22 17:07 4 mg ONCE ONE Administration <TAL Leal Last Filed: 09/10/22 13:02> Medications Administered Generic Name Dose Route Start Last Admin Trade Name Freq PRN Reason Stop Dose Admin Sodium Chloride 1,000 mls @ 999 mls/hr 09/10/22 17:45 09/10/22 18:02 Ns IV 09/10/22 18:45 999 mls/hr .Q1H1M CRICKET Administration Discontinued Medications Generic Name Dose Route Start Last Admin Trade Name Freq PRN Reason Stop Dose Admin Sodium Chloride 1,000 mls @ 999 mls/hr 09/10/22 13:15 09/10/22 15:55 Ns IV 09/10/22 14:15 Infused .Q1H1M CRICKET Infusion Iohexol 100 ml 09/10/22 15:46 09/10/22 15:47 Iohexol 350 Mg/Ml 100 Ml Infus..Btl IV 09/10/22 15:47 85 ml ONCE ONE Administration Morphine Sulfate 4 mg 09/10/22 17:06 09/10/22 17:47 Morphine Sulfate 4 Mg/Ml Cartridge IVPUSH 09/10/22 17:07 4 mg ONCE ONE Administration Protocol Ondansetron HCl 4 mg 09/10/22 17:06 09/10/22 17:44 Ondansetron Hcl 4 Mg/2 Ml Vial IVPUSH 09/10/22 17:07 4 mg ONCE ONE Administration <Arsh Savage - Last Filed: 09/10/22 18:04> Medical Decision Making Medical Decision Making MDM Narrative: This 67-year-old male presents for evaluation of abdominal pain x2 weeks. He had elevated liver enzymes including lipase outpatient earlier this morning. Repeat labs show that his liver enzymes are trending down words. His T bili is now normal at 0.9, his transaminitis is mildly improving but still elevated. Lipase is now normal at 21 which is well within the normal limits. The patient has no leukocytosis, electrolytes are within normal limits. He does have s ignificant tenderness on exam the right mid abdomen. A CT scan of the abdomen pelvis is ordered. UA is also pending <Arsh Savage - Last Filed: 09/10/22 18:04> Differential Diagnosis Abdominal pain Pancreatitis Liver cirrhosis Liver cancer Small-bowel obstruction Gastroenteritis Viral syndrome <Arsh Savage - Last Filed: 09/10/22 18:04> Lab Data [facility] Lab Attestation statement: I reviewed the patient's lab results. <Arsh Savage - Last Filed: 09/10/22 18:04> Result Diagrams: 09/10/22 13:09 09/10/22 13:09 <TAL Leal - Last Filed: 09/10/22 13:02> Labs: Lab Results 09/10/22 09/10/22 09/10/22 Range/Units 13:09 13:09 13:09 WBC 8.5 (4.8-10.8) X10*3/uL RBC 4.38 L (4.60-5.80) X10*6/uL Hgb 13.2 L (14.0-18.0) g/dl Hct 40.2 L (42.0-52.0) % MCV 91.8 (80.0-98.0) fL MCH 30.1 (27.0-33.0) pg MCHC 32.8 (31.0-36.0) g/dl RDW 13.6 (11.0-16.0) % Plt Count 394 D (160-400) X10*3/uL MPV 8.7 L (9.4-12.4) fL Immature Gran % (Auto) 0.7 H (0.0-0.4) % Neut % (Auto) 63.0 (45-73) % Lymph % (Auto) 22.4 (20-40) % [place] % (Auto) 8.5 (2-11) % Eos % (Auto) 4.6 H (0-4) % Baso % (Auto) 0.8 (0-2) % Lymph # (Auto) 1.9 (1.2-4.9) X10*3/uL [place] # (Auto) 0.7 (0.1-1.2) X10*3/uL Eos # (Auto) 0.4 (0.0-0.4) X10*3/uL Baso # (Auto) 0.1 (0.0-0.2) X10*3/uL Abs Immat Gran (auto) 0.06 H (0.00-0.03) X10*3/uL Absolute Neuts (auto) 5.4 (2.0-8.3) x10*3/uL Absolute Nucleated RBC 0.000 (0.0-0.012) X10*3/uL Nucleated RBC % (auto) 0.0 (0.0-0.2) /100WBC Sodium 137 (135-145) mmol/L Potassium 4.8 (3.3-5.1) mmol/L Chloride 100 (96-108) mmol/L Carbon Dioxide 27 (22-29) mmol/L Anion Gap 15 (12-20) BUN 14 (9-16) mg/dL Creatinine 0.76 (0.5-1.4) mg/dL Estim Creat Clear Calc 97.7 Estimated GFR > 60 Random Glucose 146 H (60-115) mg/dL Calcium 8.9 (8.4-10.2) mg/dL Magnesium 2.2 (1.6-2.6) mg/dL Total Bilirubin 0.9 (0.0-1.0) mg/dL AST 57 H (5-37) U/L ALT 174 H (0-40) U/L Alkaline Phosphatase 826 H (39-117) U/L Total Protein 6.4 L (6.5-8.0) g/dL Albumin 3.7 (3.5-5.0) g/dL Triglycerides 181 mg/dL Lipase 21 (8-78) U/L Urine Color Urine Appearance Urine pH (5.0-9.0) Ur Specific [place] (1.005-1.025) Urine Protein (Neg-Trace) mg/dL Urine Glucose (UA) (Negative) mg/dL Urine Ketones (Negative) mg/dL Urine Blood (Negative) Urine Nitrite (Negative) Ur Leukocyte Esterase (Negative) COVID-19 ([facility]) Negative (Negative) COVID-19 Clin Com See Note 09/10/22 Range/Units 16:43 WBC (4.8-10.8) X10*3/uL RBC (4.60-5.80) X10*6/uL Hgb (14.0-18.0) g/dl Hct (42.0-52.0) % MCV (80.0-98.0) fL MCH (27.0-33.0) pg MCHC (31.0-36.0) g/dl RDW (11.0-16.0) % Plt Count (160-400) X10*3/uL MPV (9.4-12.4) fL Immature Gran % (Auto) (0.0-0.4) % Neut % (Auto) (45-73) % Lymph % (Auto) (20-40) % [place] % (Auto) (2-11) % Eos % (Auto) (0-4) % Baso % (Auto) (0-2) % Lymph # (Auto) (1.2-4.9) X10*3/uL [place] # (Auto) (0.1-1.2) X10*3/uL Eos # (Auto) (0.0-0.4) X10*3/uL Baso # (Auto) (0.0-0.2) X10*3/uL Abs Immat Gran (auto) (0.00-0.03) X10*3/uL Absolute Neuts (auto) (2.0-8.3) x10*3/uL Absolute Nucleated RBC (0.0-0.012) X10*3/uL Nucleated RBC % (auto) (0.0-0.2) /100WBC Sodium (135-145) mmol/L Potassium (3.3-5.1) mmol/L Chloride (96-108) mmol/L Carbon Dioxide (22-29) mmol/L Anion Gap (12-20) BUN (9-16) mg/dL Creatinine (0.5-1.4) mg/dL Estim Creat Clear Calc Estimated GFR Random Glucose (60-115) mg/dL Calcium (8.4-10.2) mg/dL Magnesium (1.6-2.6) mg/dL Total Bilirubin (0.0-1.0) mg/dL AST (5-37) U/L ALT (0-40) U/L Alkaline Phosphatase (39-117) U/L Total Protein (6.5-8.0) g/dL Albumin (3.5-5.0) g/dL Triglycerides mg/dL Lipase (8-78) U/L Urine Color Dark Yellow Urine Appearance Clear Urine pH 6.5 (5.0-9.0) Ur Specific [place] >= 1.030 H (1.005-1.025) Urine Protein Negative (Neg-Trace) mg/dL Urine Glucose (UA) Negative (Negative) mg/dL Urine Ketones Negative (Negative) mg/dL Urine Blood Negative (Negative) Urine Nitrite Negative (Negative) Ur Leukocyte Esterase Negative (Negative) COVID-19 ([facility]) (Negative) COVID-19 Clin Com <TAL Leal - Last Filed: 09/10/22 13:02> Lab Results 09/10/22 09/10/22 09/10/22 Range/Units 13:09 13:09 13:09 WBC 8.5 (4.8-10.8) X10*3/uL RBC 4.38 L (4.60-5.80) X10*6/uL Hgb 13.2 L (14.0-18.0) g/dl Hct 40.2 L (42.0-52.0) % MCV 91.8 (80.0-98.0) fL MCH 30.1 (27.0-33.0) pg MCHC 32.8 (31.0-36.0) g/dl RDW 13.6 (11.0-16.0) % Plt Count 394 D (160-400) X10*3/uL MPV 8.7 L (9.4-12.4) fL Immature Gran % (Auto) 0.7 H (0.0-0.4) % Neut % (Auto) 63.0 (45-73) % Lymph % (Auto) 22.4 (20-40) % [place] % (Auto) 8.5 (2-11) % Eos % (Auto) 4.6 H (0-4) % Baso % (Auto) 0.8 (0-2) % Lymph # (Auto) 1.9 (1.2-4.9) X10*3/uL [place] # (Auto) 0.7 (0.1-1.2) X10*3/uL Eos # (Auto) 0.4 (0.0-0.4) X10*3/uL Baso # (Auto) 0.1 (0.0-0.2) X10*3/uL Abs Immat Gran (auto) 0.06 H (0.00-0.03) X10*3/uL Absolute Neuts (auto) 5.4 (2.0-8.3) x10*3/uL Absolute Nucleated RBC 0.000 (0.0-0.012) X10*3/uL Nucleated RBC % (auto) 0.0 (0.0-0.2) /100WBC Sodium 137 (135-145) mmol/L Potassium 4.8 (3.3-5.1) mmol/L Chloride 100 (96-108) mmol/L Carbon Dioxide 27 (22-29) mmol/L Anion Gap 15 (12-20) BUN 14 (9-16) mg/dL Creatinine 0.76 (0.5-1.4) mg/dL Estim Creat Clear Calc 97.7 Estimated GFR > 60 Random Glucose 146 H (60-115) mg/dL Calcium 8.9 (8.4-10.2) mg/dL Magnesium 2.2 (1.6-2.6) mg/dL Total Bilirubin 0.9 (0.0-1.0) mg/dL AST 57 H (5-37) U/L ALT 174 H (0-40) U/L Alkaline Phosphatase 826 H (39-117) U/L Total Protein 6.4 L (6.5-8.0) g/dL Albumin 3.7 (3.5-5.0) g/dL Triglycerides 181 mg/dL Lipase 21 (8-78) U/L Urine Color Urine Appearance Urine pH (5.0-9.0) Ur Specific [place] (1.005-1.025) Urine Protein (Neg-Trace) mg/dL Urine Glucose (UA) (Negative) mg/dL Urine Ketones (Negative) mg/dL Urine Blood (Negative) Urine Nitrite (Negative) Ur Leukocyte Esterase (Negative) COVID-19 ([facility]) Negative (Negative) COVID-19 Clin Com See Note 09/10/22 Range/Units 16:43 WBC (4.8-10.8) X10*3/uL RBC (4.60-5.80) X10*6/uL Hgb (14.0-18.0) g/dl Hct (42.0-52.0) % MCV (80.0-98.0) fL MCH (27.0-33.0) pg MCHC (31.0-36.0) g/dl RDW (11.0-16.0) % Plt Count (160-400) X10*3/uL MPV (9.4-12.4) fL Immature Gran % (Auto) (0.0-0.4) % Neut % (Auto) (45-73) % Lymph % (Auto) (20-40) % [place] % (Auto) (2-11) % Eos % (Auto) (0-4) % Baso % (Auto) (0-2) % Lymph # (Auto) (1.2-4.9) X10*3/uL [place] # (Auto) (0.1-1.2) X10*3/uL Eos # (Auto) (0.0-0.4) X10*3/uL Baso # (Auto) (0.0-0.2) X10*3/uL Abs Immat Gran (auto) (0.00-0.03) X10*3/uL Absolute Neuts (auto) (2.0-8.3) x10*3/uL Absolute Nucleated RBC (0.0-0.012) X10*3/uL Nucleated RBC % (auto) (0.0-0.2) /100WBC Sodium (135-145) mmol/L Potassium (3.3-5.1) mmol/L Chloride (96-108) mmol/L Carbon Dioxide (22-29) mmol/L Anion Gap (12-20) BUN (9-16) mg/dL Creatinine (0.5-1.4) mg/dL Estim Creat Clear Calc Estimated GFR Random Glucose (60-115) mg/dL Calcium (8.4-10.2) mg/dL Magnesium (1.6-2.6) mg/dL Total Bilirubin (0.0-1.0) mg/dL AST (5-37) U/L ALT (0-40) U/L Alkaline Phosphatase (39-117) U/L Total Protein (6.5-8.0) g/dL Albumin (3.5-5.0) g/dL Triglycerides mg/dL Lipase (8-78) U/L Urine Color Dark Yellow Urine Appearance Clear Urine pH 6.5 (5.0-9.0) Ur Specific [place] >= 1.030 H (1.005-1.025) Urine Protein Negative (Neg-Trace) mg/dL Urine Glucose (UA) Negative (Negative) mg/dL Urine Ketones Negative (Negative) mg/dL Urine Blood Negative (Negative) Urine Nitrite Negative (Negative) Ur Leukocyte Esterase Negative (Negative) COVID-19 ([facility]) (Negative) COVID-19 Clin Com <Arsh Husseni - Last Filed: 09/10/22 18:04> Discharge Plan Discharge Clinical Impression: Choledocholithiasis <TAL Leal - Last Filed: 09/10/22 13:02> Patient Disposition: Admitted As Inpatient <TAL Leal - Last Filed: 09/10/22 13:02> Prescriptions: No Action metoprolol tartrate 100 mg tablet 100 mg PO BID 90 Days Qty: 180 3RF aspirin [Adult Low Dose Aspirin] 81 mg tablet,delayed release (DR/EC) 81 mg PO DAILY amlodipine [Norvasc] 10 mg tablet 10 mg PO DAILY rosuvastatin [Crestor] 40 mg tablet 40 mg PO BEDTIME oxycodone 10 mg Tablet 10 mg PO Q5H PRN (Reason: Moderate Pain (Scale Score 5-6)) divalproex [Depakote ER] 250 mg tablet extended release 24 hr 250 mg PO BEDTIME levetiracetam [Keppra] 500 mg Tablet 500 mg PO BID nitroglycerin [Nitrostat] 0.4 mg tablet, sublingual 0.4 mg sublingual Q5M PRN (Reason: chest pain) Rx Instructions: do not exceed 3 doses per episode cyclobenzaprine 10 mg tablet 1 tab PO BID PRN (Reason: Muscle Spasm) isosorbide mononitrate 30 mg tablet extended release 24 hr 30 mg PO DAILY ranolazine 1,000 mg tablet extended release 12 hr 1,000 mg PO BID Eliquis 5 mg tablet 5 mg PO BID ezetimibe [Zetia] 10 mg tablet 10 mg PO DAILY multivitamin [Daily Vitamin Formula] Tablet 1 tab PO DAILY lisinopril [Zestril] 10 mg tablet 10 mg PO DAILY pantoprazole [Protonix] 40 mg tablet,delayed release (DR/EC) 40 mg PO DAILY@0630 primidone 250 mg tablet 250 mg PO BID <TAL Lael Last Filed: 09/10/22 13:02>
--- OUTSIDE RECORDS SUMMARY | 2022-09-10 13:08 | XMS_ITS ---
Author Name Jose Cruz Miranda Address [address] [place] [address] Organization Jose Cruz Miranda III, MD Address [address] [place] [place] [address] Care Team Providers Care Truss Puller Helper Name Role Phone Jose Cruz Miranda [facility] [phone] PROBLEMS Type Condition ICD9-CM Code [id number] Code Onset Dates Condition Status SNOMED Code Problem Pacemaker Z95.0 Active 714084426 Problem Myocardial infarction, unspecified [place] type, unspecified artery I21.9 Active 23674583 Problem GERD (gastroesophageal reflux disease) K21.9 Active 800769449 Problem Primary osteoarthritis of both hips M16.0 Active 500357463 Problem Syncope R55 Active 170348322 Problem Atherosclerotic heart disease of [place] coronary artery with unspecified angina pectoris I25.119 Active 452015811 Problem Tubular adenoma of colon D12.6 Active 051341604 Problem HTN (hypertension) I10 Active 19932 003 Problem Acute deep vein thrombosis (DVT) of proximal vein of left lower extremity I82.4Y2 Active Problem Tobacco dependence F17.200 Active 90172 005 Problem Primary osteoarthritis of left knee M17.12 Active 797928358 ALLERGIES Substance Reaction Event Type Date Status Tramadol Unknown Drug Allergy Mar, Active Bee Sting Unknown Drug Allergy Mar, Active Pollen Unknown Drug Allergy Mar, Active Indocin Unknown Drug Allergy Mar, Active ENCOUNTERS Encounter Location Date Diagnosis Jose Cruz Miranda III, MD [address] [place] [address] [place] [address] Jan, Acute deep vein thrombosis (DVT) of proximal vein of left lower extremity I82.4Y2 ; HTN (hypertension) I10 ; GERD (gastroesophageal reflux disease) K21.9 ; Pacemaker Z95.0 and Tobacco dependence F17.200 Jose Cruz Miranda III, MD [address] [place] [address] [address] [place], [place] [address] 15 Dec, 2020 Acute deep vein thrombosis (DVT) of proximal vein of left lower extremity I82.4Y2 ; Tobacco dependence F17.200 ; Primary osteoarthritis of left knee M17.12 ; Primary osteoarthritis of both hips M16.0 ; Atherosclerotic heart disease of [place] coronary artery with unspecified angina pectoris I25.119 ; HTN (hypertension) I10 ; Pacemaker Z95.0 and Myocardial infarction, unspecified [place] type, unspecified artery I21.9 IMMUNIZATIONS No Known Immunizations SOCIAL HISTORY Qualifiers Date Current Smoker REASON FOR REFERRAL FUNCTIONAL STATUS PLAN OF CARE Activity Details VITAL SIGNS Height 67 in 2021-01-12 Height 67 in 2020-12-21 Weight 210 lbs 2021-01-12 Weight 212 lbs 2020-12-21 BMI 32.89 kg/m2 2021-01-12 BMI 33.20 kg/m2 2020-12-21 Heart Rate 70 /min 2021-01-12 Heart Rate 61 /min 2020-12-21 Temperature 96.3 degrees Fahrenheit Temperature 96.5 degrees Fahrenheit Blood pressure systolic 112 mm Hg Blood pressure diastolic 70 mm Hg 2021-01 MEDICATIONS Medication Instructions Dosage Frequency Start Date End Date Duration Status Lisinopril 10 MG Orally Once a day 1 tablet 24h Active Nitroglycerin 0.4 MG Sublingual Three times a day as directed 8h Active Heparin Sodium (Porcine) 5000 UNIT/ML Injection every 12 hrs as directed 12h Active levETIRAcetam 250 MG Orally every 12 hrs 1 tablet 12h Active Omeprazole 40 MG Orally Once a day as directed 24h Active Divalproex Sodium 250 MG Orally Twice a day 1 tablet 12h Active Acetaminophen 325 MG Orally every 6 hrs 1 capsule as needed 6h Active Ezetimibe 10 MG Orally Once a day 1 tablet 24h Active amLODIPine Besylate 10 MG Orally Once a day 1 tablet 24h Active Atorvastatin Calcium 20 MG Orally Once a day 1 tablet 24h Active Aspirin 81 81 MG Orally Once a day 1 tablet 24h Active Eliquis 5 MG as directed Active Metoprolol Tartrate 25 MG Orally Twice a day as directed 12h Active PROCEDURES No Known procedures RESULTS No Results REASON FOR VISIT Follow up, Tubular adenoma of colon, Acute DVT, Follow up, Leg pain, DVT left leg Insurance Providers Health Insurance Type Health Plan Insurance Address Health Plan Insurance Phone Health Plan Insurance Name Health Plan Coverage Dates Member ID Patient Relationship to Subscriber Patient Address Patient Phone Patient Name Patient Date of Subscriber ID Subscriber Name Subscriber Date of Group No MEDICARE NGS [address] [place] [address] MEDICARE NGS self Myles Tipton [id number] MEDICAID [address] [facility] [id number] MEDICAID self Myles Tipton [id number] 1
[2022-09-10 13:14] LABS: MANUAL DIFF FLAG NO
[2022-09-10 13:17] LABS: Basophils Absolute Auto 0.1 X10*3/uL (0.0-0.2); Basophils Percent Auto 0.8 % (0-2); Eosinophils Absolute Auto 0.4 X10*3/uL (0.0-0.4); Eosinophils Percent Auto 4.6 % (0-4); Hematocrit 40.2 % (42.0-52.0); Hemoglobin 13.2 g/dl (14.0-18.0); Imm Gran Abs Auto 0.06 X10*3/uL (0.00-0.03); Imm Gran Pct Auto 0.7 % (0.0-0.4); Lymphocytes Absolute Auto 1.9 X10*3/uL (1.2-4.9); Lymphocytes Percent Auto 22.4 % (20-40); Mean Corpuscular HGB Conc 32.8 g/dl (31.0-36.0); Mean Corpuscular Hemoglobin 30.1 pg (27.0-33.0); Mean Corpuscular Volume 91.8 fL (80.0-98.0); Mean Platelet Volume 8.7 fL (9.4-12.4); Monocytes Absolute Auto 0.7 X10*3/uL (0.1-1.2); Monocytes Percent Auto 8.5 % (2-11); Neutrophils Absolute Auto 5.4 x10*3/uL (2.0-8.3); Platelet Count 394 X10*3/uL (160-400); Red Blood Count 4.38 X10*6/uL (4.60-5.80); Red Cell Distribution Width 13.6 % (11.0-16.0); White Blood Count 8.5 X10*3/uL (4.8-10.8)
[2022-09-10 13:31] LABS: COVID-19 Test Negative (Negative); IDNOW Serial# 08D9AD1C
[2022-09-10 13:37] LABS: Alanine Aminotransferase 174 U/L (0-40); Albumin Level 3.7 g/dL (3.5-5.0); Alkaline Phosphatase 826 U/L (39-117); Anion Gap 15 (12-20); Aspartate Amino Transferase 57 U/L (5-37); Bilirubin Total 0.9 mg/dL (0.0-1.0); Blood Urea Nitrogen 14 mg/dL (9-16); Calcium 8.9 mg/dL (8.4-10.2); Carbon Dioxide 27 mmol/L (22-29); Chloride 100 mmol/L (96-108); Creatinine Clr Calc Pharmacy 97.7; Estimated Glomerular Filt Rate > 60; Glucose Random 146 mg/dL (60-115); Lipase 21 U/L (8-78); Magnesium 2.2 mg/dL (1.6-2.6); Potassium 4.8 mmol/L (3.3-5.1); Sodium 137 mmol/L (135-145); Total Protein 6.4 g/dL (6.5-8.0); Triglycerides 181 mg/dL
[2022-09-10] MEDS: iohexoL 350 MG/ML 100 ML INFUS..BTL IV (15:47)
[2022-09-10] MEDS: 0.9 % Sodium Chloride 1,000 ML 999 ML IV ×2 (15:48→18:02)
[2022-09-10 15:50] VITALS: BP 113/62; PULSE 60; RESP 16; TEMP 36.4; O2SAT 98
[2022-09-10 17:06] LABS: Appearance Urine Clear; Color Urine Dark Yellow; Glucose Urine UA Negative (Negative); Leukocyte Esterase Urine Negative (Negative); Nitrite Urine Negative (Negative); PH 6.5 (5.0-9.0); Specific Gravity - Urine >= 1.030 (1.005-1.025); Urine Blood Negative (Negative); Urine Ketones Negative (Negative); Urine Protein Negative (Neg-Trace)
[2022-09-10] MEDS: ondansetron HCL 4 MG/2 ML VIAL IVPUSH (17:44)
[2022-09-10] MEDS: Morphine Sulfate 4 MG/ML CARTRIDGE IVPUSH ×2 (17:47→20:47)
[2022-09-10 18:03] VITALS: BP 93/60; PULSE 60; RESP 16; O2SAT 96
--- NOTE | 2022-09-10 18:41 | P.HPHOSP_ITS ---
History of Present Illness Date of Service: 09/10/22 Attending physician on admission: Alan Rosario Chief Complaint: abd pain 67-year-old male past medical history significant for atrial fibrillation on apixaban, sick sinus syndrome status post pacemaker implantation, coronary artery disease, peripheral artery disease, GERD presents for evaluation of ?abnormal liver enzymes. ?Patient reports that he has not been feeling well for the last 2 weeks-abdominal pain that is worse after eating as well as nausea and vomiting,also He reports Subjectivefevers this past weekend but none today, still has abdominal pain mostly in right upper quadrant area. Patient reports that he went to urgent care earlier today and was told to go to the ER because ?they said my liver enzymes were elevated especially my lipase. ? Of note, the patient outpatient lab today at 9:16 a.m. significant for AT bili of 1.1, AST of 69 and ALT of 188, alk-phos of 878 and a lipase of 138.? repeated LFTs bilirubin is normal , AST ALT and alk-phos is slightly lower than before. CT abdomen shows CBD dilation as well as ultrasound( please see imaging section for detailed report.)The patient reports a history of alcohol use but has not had a drink in 12 years. Denies any new complaint of chest pain or shortness of breath or abdominal pain or chills . Denies any cough or weakness or numbness. Review of Systems Review of Systems: as above. [facility] Medical History Atherosclerotic cardiovascular disease Brain bleed Brain lesion CAD (coronary artery disease) COVID-19 vaccine administered DVT (deep venous thrombosis) Esophagitis Essential hypertension GERD (gastroesophageal reflux disease) Headache History of chemotherapy Myocardial infarction Obstructive sleep apnea (~2018) On anticoagulant therapy Pacemaker (~05/2013) Personal history of nicotine dependence Psychotic disorder Seizures (~04/2020) Syncope Tremor Tubular adenoma of colon Family History Father Heavy cigarette smoker Throat cancer Mother Heart disease Surgical History History of appendectomy History of cardiac catheterization History of cholecystectomy History of colonoscopy (~09/2020) History of esophagogastroduodenoscopy (EGD) (~09/2020) History of permanent cardiac pacemaker placement (~05/2013) History of right knee surgery (~12/2013) History of spinal surgery History of total right hip replacement (~06/2012) Stented coronary artery Social History Household Members: None Household Members Other:: shares house with a friend Housing: House Are you a primary clinical care coordinator to a significant other at home: No Do you presently have visiting nurse or other home services: No Alcohol intake: former Patient Tobacco Use Status: Current everyday Tobacco user Tobacco use type: Cigarette Cigarette Packs Per Day: 1 Cigarettes Per Day: 20.0 Years Smoked: 25 years (age [age] then 49 to present, max 1.5ppd, now 1/2ppd) Smoked in Last 30 Days: Yes e-Cigarette/Vaping Use: Never Used Patient Interested in Nicotine Replacement: Yes Patient Given Instructions on How to Stop Smoking: No (pt no desire to quitting) Second Hand Smoke Exposure: No Use of substances other than those prescribed or required for medical reasons: No Currently Displaying Signs/Symptoms of Drug Intoxication Withdrawal: No Any prior treatment program specific to substance use: No Have you been hit, kicked, punched, or otherwise hurt by someone within the past year? If so, by whom?: No Do you feel safe in your current relationship?: Yes Is there a partner from a previous relationship who is making you feel unsafe now?: No Are you made to feel afraid or neglected: No Advance Directives: Yes Advance Directives on File: Yes Advance Directives Date on File: 12/16/20 Do you have thoughts of harming others: None Do you have a plan to hurt others: No Plan Recently lost weight without trying: Yes How much weight loss: 14-23 pounds Eating poorly because of decreased appetite: Yes Nutrition screen score: 5 Nutrition Risks: Poor intake 0-25% >4 days Poor oral hygiene: No service: No Current occupational status: employed and retired Meds Allergies Allergy/AdvReac Type Severity Reaction Status Date / Time bee pollen [BEE STINGS] Allergy Severe ANAPHYLAXIS Verified 06/28/22 13:49 indomethacin [Indocin] Allergy Severe anaphylaxis Verified 06/28/22 13:49 tramadol [Ultram] Allergy Severe anaphylaxis Verified 06/28/22 13:49 Active Medications: Current Medications Amlodipine Besylate (Amlodipine Besylate 10 Mg Tablet) 10 mg PO DAILY [facility]; Protocol Aspirin (Aspirin Enteric Coated 81 Mg Tablet.Dr) 81 mg PO DAILY [facility] Atorvastatin Calcium (Atorvastatin Calcium 80 Mg Tablet) 80 mg PO BEDTIME [facility] Cyclobenzaprine HCl (Cyclobenzaprine Hcl 10 Mg Tablet) 10 mg PO BID PRN PRN Reason: Muscle Spasm Divalproex Sodium (Divalproex Sodium Er 250 Mg Tab.Er.24h) 250 mg PO BEDTIME [facility] Ezetimibe (Ezetimibe 10 Mg Tablet) 10 mg PO DAILY [facility] Sodium Chloride (Ns) 1,000 mls @ 999 mls/hr IV .Q1H1M [facility] Stop: 09/10/22 18:45 Last Admin: 09/10/22 18:02 Dose: 999 mls/hr Lactated Ringer's (Lr) 1,000 mls @ 100 mls/hr IVCONT .Q10H [facility] Isosorbide Mononitrate (Isosorbide Mononitrate 30 Mg Tab.Er.24h) 30 mg PO DAILY [facility]; Protocol Metoprolol Tartrate (Metoprolol Tartrate 100 Mg Tablet) 100 mg PO BID [facility]; Protocol Morphine Sulfate (Morphine Sulfate 4 Mg/Ml Cartridge) 4 mg IVPUSH Q4H PRN; Protocol PRN Reason: abd pain Multivitamins/Vitamin C (Multivitamin Tablet) 1 tab PO DAILY [facility] Nitroglycerin (Nitroglycerin 0.4 Mg Tab.Subl) 0.4 mg SUBLINGUAL Q5M PRN PRN Reason: chest pain Oxycodone HCl (Oxycodone Hcl Immed Release 5 Mg Tablet) 10 mg PO Q5H PRN PRN Reason: Moderate Pain (Scale Score 5-6) Pantoprazole Sodium (Pantoprazole Sodium 40 Mg/10 Ml Vial) 40 mg IVPUSH DAILY [facility] Pharmacy Consult (Consult Rx Perform Med Rec) 1 each MISCELLANE ONCE PRN PRN Reason: Consult order Ranolazine (Ranolazine 1,000 Mg Tab.Er.12h) 1,000 mg PO BID [facility] Sodium Chloride (0.9 % Sodium Chloride Flush 3 Ml Syringe) 3 ml IVFLUSH QSHIFT [facility] Home Medications Medication Instructions Recorded Confirmed Last Taken Type amlodipine 10 mg tablet (Norvasc) 10 mg PO DAILY 04/25/20 09/10/22 06/19/21 History aspirin 81 mg tablet,delayed 81 mg PO DAILY 04/25/20 09/10/22 06/19/21 History release (Adult Low Dose Aspirin) rosuvastatin 40 mg tablet (Crestor) 40 mg PO BEDTIME chloestrol 04/25/20 09/10/22 06/18/21 History oxycodone 10 mg tablet 10 mg PO Q5H PRN Moderate Pain 04/26/20 09/10/22 06/19/21 History (Scale Score 5-6) divalproex 250 mg tablet,extended 250 mg PO BEDTIME 09/08/20 09/10/22 06/18/21 History release 24 hr (Depakote ER) ezetimibe 10 mg tablet (Zetia) 10 mg PO DAILY 10/24/20 09/10/22 06/19/21 History lisinopril 10 mg tablet (Zestril) 10 mg PO DAILY 10/24/20 09/10/22 06/19/21 History multivitamin (Daily Vitamin 1 tab PO DAILY 10/24/20 09/10/22 06/19/21 History Formula tablet) pantoprazole 40 mg tablet,delayed 40 mg PO DAILY@0630 10/24/20 09/10/22 06/19/21 History release (Protonix) apixaban 5 mg tablet (Eliquis) 5 mg PO BID 01/08/21 09/10/22 06/19/21 History levetiracetam 500 mg tablet 500 mg PO BID 06/19/21 06/28/22 06/19/21 History (Keppra) nitroglycerin 0.4 mg sublingual 0.4 mg sublingual Q5M PRN chest 11/29/21 09/10/22 Unknown History tablet (Nitrostat) pain primidone 250 mg tablet 250 mg PO BID 03/05/22 06/28/22 Unknown History cyclobenzaprine 10 mg tablet 1 tab PO BID PRN Muscle Spasm 06/13/22 09/10/22 Unknown History isosorbide mononitrate 30 mg 30 mg PO DAILY 09/10/22 09/10/22 Unknown History tablet,extended release 24 hr ranolazine 1,000 mg 1,000 mg PO BID 09/10/22 09/10/22 Unknown History tablet,extended release,12 hr Physical Exam Vital Signs and Narrative: Vital Signs: Last Vital Signs Temp 97.5 F 09/10/22 15:50 Pulse 60 09/10/22 18:03 Resp 16 09/10/22 18:03 BP 93/60 09/10/22 18:03 Pulse Ox 96 09/10/22 18:03 O2 Del Method Room Air 09/10/22 18:03 BMI result Body Mass Index 27.0 Appearance: Alert.? Oriented X3.? not in distress.? Eyes: Pupils equal, round and reactive to light.? Sclera nonicteric.? ENT: Pharynx normal.? Moist mucous membranes. cvs: rrr, [id number] . res: clear to auscultation ,no rhonchii or wheezing abd: no rebound or guarding ,ruq pain, bs present. ext pulses present , no cyanosis . neuro: axo3 , nonfocal. Results Labs 09/10/22 13:09 09/10/22 13:09 Labs: Laboratory Results - last 24 hr 09/10/22 09/10/22 09/10/22 13:09 13:09 13:09 MCV 91.8 MCH 30.1 MCHC 32.8 RDW 13.6 Plt Count 394 D MPV 8.7 L Immature Gran % (Auto) 0.7 H Neut % (Auto) 63.0 Lymph % (Auto) 22.4 [place] % (Auto) 8.5 Eos % (Auto) 4.6 H Baso % (Auto) 0.8 Lymph # (Auto) 1.9 [place] # (Auto) 0.7 Eos # (Auto) 0.4 Baso # (Auto) 0.1 Abs Immat Gran (auto) 0.06 H Absolute Neuts (auto) 5.4 Absolute Nucleated RBC 0.000 Nucleated RBC % (auto) 0.0 Anion Gap 15 Estim Creat Clear Calc 97.7 Estimated GFR > 60 Random Glucose 146 H Calcium 8.9 Magnesium 2.2 Total Bilirubin 0.9 AST 57 H ALT 174 H Alkaline Phosphatase 826 H Total Protein 6.4 L Albumin 3.7 Triglycerides 181 Lipase 21 Urine Color Urine Appearance Urine pH Ur Specific [place] Urine Protein Urine Glucose (UA) Urine Ketones Urine Blood Urine Nitrite Ur Leukocyte Esterase COVID-19 ([facility]) Negative COVID-19 Clin Com See Note 09/10/22 16:43 MCV MCH MCHC RDW Plt Count MPV Immature Gran % (Auto) Neut % (Auto) Lymph % (Auto) [place] % (Auto) Eos % (Auto) Baso % (Auto) Lymph # (Auto) [place] # (Auto) Eos # (Auto) Baso # (Auto) Abs Immat Gran (auto) Absolute Neuts (auto) Absolute Nucleated RBC Nucleated RBC % (auto) Anion Gap Estim Creat Clear Calc Estimated GFR Random Glucose Calcium Magnesium Total Bilirubin AST ALT Alkaline Phosphatase Total Protein Albumin Triglycerides Lipase Urine Color Dark Yellow Urine Appearance Clear Urine pH 6.5 Ur Specific [place]ck[place] >= 1.030 H Urine Protein Negative Urine Glucose (UA) Negative Urine Ketones Negative Urine Blood Negative Urine Nitrite Negative Ur Leukocyte Esterase Negative COVID-19 ([facility]) COVID-19 Clin Com Imaging Radiologist's Impressions: Impressions Abdomen/Pelvis CT 09/10/22 15:49 IMPRESSION: * The abnormal dilatation of the common duct and intrahepatic ducts is new since 04/25/2020. This appears to be due to choledocholithiasis. Recommend correlation with bilirubin levels and liver function tests. * Colonic diverticulosis without diverticulitis. * Prostatomegaly. * Small hemangioma of hepatic segment . US/US abdomen limited IMPRESSION: 1.? The common bile duct is dilated and there is intrahepatic biliary ductal dilatation. The filling defects seen in the common bile duct on the CT scan earlier today could not be seen on the ultrasound exam. MRCP or ERCP would be helpful for further evaluation. 2.? Incidental note made of hepatic steatosis and small hemangioma right lobe of liver. ? Assessment and Plan (1) Choledocholithiasis: Status: Acute (2) PAF (paroxysmal atrial fibrillation): Status: Acute Plan 67-year-old male with a PMH significant for?extensive CAD with numerous cardiac catheterizations, 2 cardiac stents, pacemaker, history of recurrent DVT on Eliquis, small right occipital hemorrhage in 2019, numerous back surgeries chronically on Oxy 10 mg q5 daily, both total knee replacements, hip replacement, seizure disorder - Patient came to hospital because of right upper quadrant pain and nausea vomiting. 1. Right upper quadrant pain:: ? Question choledocholithiasis CT abdomen and ultrasound reviewed ED discussed the case with GI: Plan: Bowel rest, fluids, pain medication morphine, monitor LFTs, antibiotics , hold Eliquis for now may need ERCP in a.m. may not able to mrcp-has pacemaker. 2. CAD: Continue aspirin, hold statin due to lft's, continue other cardiac meds 3.hx of DVT: hold eliquis fornow 4. hx of seizure : continue home seizure meds 5. boderline blood pressure : hold blood pressure meds. dvt prophylax: s/c heparin full code. need for inaptient : possible choledocholithiasis and severe abd pain- need lft's moniterin,iv pain meds, possible ercp in am. Time Spent With Patient Time: Total time managing care of this patient today ____ minutes. Quality Stroke Does the patient have a stroke diagnosis?: No VTE Prior VTE?: No VTE Risk Level:: Medical - moderate - high VTE Device Contraindication: N/A - Device Ordered VTE Drug Contraindication: N/A - Med Ordered
--- OUTSIDE RECORDS SUMMARY | 2022-09-10 18:42 | XMS_ITS ---
Author Name Jose Cruz Miranda Address [address] [place] [address] Organization Jose Cruz Miranda III, MD Address [address] [place] [address] Care Team Providers Care Hog Cooler Name Role Phone Jose Cruz Miranda [facility] [phone] PROBLEMS Type Condition ICD9-CM Code [id number] Code Onset Dates Condition Status SNOMED Code Problem Pacemaker Z95.0 Active 749761789 Problem Myocardial infarction, unspecified [place] type, unspecified artery I21.9 Active 31960313 Problem GERD (gastroesophageal reflux disease) K21.9 Active 958256402 Problem Primary osteoarthritis of both hips M16.0 Active 834267925 Problem Syncope R55 Active 224094109 Problem Atherosclerotic heart disease of [place] coronary artery with unspecified angina pectoris I25.119 Active 733211399 Problem Tubular adenoma of colon D12.6 Active 771564590 Problem HTN (hypertension) I10 Active 77785 003 Problem Acute deep vein thrombosis (DVT) of proximal vein of left lower extremity I82.4Y2 Active Problem Tobacco dependence F17.200 Active 29184 005 Problem Primary osteoarthritis of left knee M17.12 Active 863496223 ALLERGIES Substance Reaction Event Type Date Status Tramadol Unknown Drug Allergy Mar, Active Bee Sting Unknown Drug Allergy Mar, Active Pollen Unknown Drug Allergy Mar, Active Indocin Unknown Drug Allergy Mar, Active ENCOUNTERS Encounter Location Date Diagnosis Jose Cruz Miranda III, MD [address] [place] [address] [place] [address] Jan, Acute deep vein thrombosis (DVT) of proximal vein of left lower extremity I82.4Y2 ; HTN (hypertension) I10 ; GERD (gastroesophageal reflux disease) K21.9 ; Pacemaker Z95.0 and Tobacco dependence F17.200 Jose Cruz Miranda III, MD [address] [place] [address] [address] [place], [place] [address] 15 Dec, 2020 Acute deep vein thrombosis (DVT) of proximal vein of left lower extremity I82.4Y2 ; Tobacco dependence F17.200 ; Primary osteoarthritis of left knee M17.12 ; Primary osteoarthritis of both hips M16.0 ; Atherosclerotic heart disease of [place] coronary artery with unspecified angina pectoris I25.119 ; HTN (hypertension) I10 ; Pacemaker Z95.0 and Myocardial infarction, unspecified [place] type, unspecified artery I21.9 IMMUNIZATIONS No Known [...] NGS [address] [place] [address] MEDICARE NGS self Myles Tipton [id number] MEDICAID [address] [facility] [id number] MEDICAID self Myles Tipton [id number] 1
[2022-09-10 19:12] LABS: Troponin-I High Sensitivity < 2.7 ng/L (<3.5-35.0)
[2022-09-10] MEDS: Lidocaine 4 % Patch ADH..PATCH 1 PATCH TRANSDERMA (19:33)
--- NOTE | 2022-09-10 19:38 | PC.NURSE ---
attempt to call nurse to nurse report x 2 to media technician with no answer. attempt#1 19:25, attempt#2 19:38
[2022-09-10] MEDS: Lactated Ringers 1,000 ML 100 ML IVCONT (19:44)
[2022-09-10 19:57] LABS: Partial Thromboplastin Time 37.7 SEC (26.0-36.4)
[2022-09-10 20:00] VITALS: BP 135/68; PULSE 60; RESP 19; TEMP 36.2; O2SAT 96
[2022-09-10 20:23] VITALS: BMI 27.1
[2022-09-10] MEDS: 0.9 % Sodium Chloride Flush 3 ML SYRINGE IVFLUSH (20:47)
[2022-09-10] MEDS: Divalproex Sodium ER 250 MG TAB.ER.24H PO (21:28)
[2022-09-10] MEDS: cefTRIAXone sodium 1 GM in 0.9 % Sodium Chloride 50 ML IV (21:28)
[2022-09-10] MEDS: Ranolazine 500 MG TAB.ER.12H 1000 MG PO (21:28)
[2022-09-10] MEDS: levETIRAcetam 500 MG TABLET PO (21:28)
[2022-09-10] MEDS: Primidone 50 MG TABLET 250 MG PO (21:50)
[2022-09-10] MEDS: metroNIDAZOLE/NS 500 MG/100 ML PIGGYBACK 100 MG IV (22:01)
[2022-09-11] MEDS: Morphine Sulfate 4 MG/ML CARTRIDGE IVPUSH ×2 (01:53→06:23)
[2022-09-11 03:01] VITALS: BP 129/68; PULSE 60; RESP 16; TEMP 36.2; O2SAT 94
[2022-09-11] MEDS: metroNIDAZOLE/NS 500 MG/100 ML PIGGYBACK 100 MG IV ×3 (05:25→22:08)
[2022-09-11] MEDS: Lactated Ringers 1,000 ML 100 ML IVCONT ×2 (05:29→18:28)
[2022-09-11 06:18] LABS: Hematocrit 37.7 % (42.0-52.0); Hemoglobin 12.5 g/dl (14.0-18.0); Mean Corpuscular HGB Conc 33.2 g/dl (31.0-36.0); Mean Corpuscular Hemoglobin 30.6 pg (27.0-33.0); Mean Corpuscular Volume 92.2 fL (80.0-98.0); Mean Platelet Volume 9.3 fL (9.4-12.4); Platelet Count 297 X10*3/uL (160-400); Red Blood Count 4.09 X10*6/uL (4.60-5.80); Red Cell Distribution Width 13.6 % (11.0-16.0); White Blood Count 9.1 X10*3/uL (4.8-10.8)
[2022-09-11 06:39] LABS: Alanine Aminotransferase 180 U/L (0-40); Albumin Level 3.2 g/dL (3.5-5.0); Alkaline Phosphatase 812 U/L (39-117); Anion Gap 16 (12-20); Aspartate Amino Transferase 125 U/L (5-37); Bilirubin Total 1.6 mg/dL (0.0-1.0); Blood Urea Nitrogen 9 mg/dL (9-16); Calcium 8.5 mg/dL (8.4-10.2); Carbon Dioxide 25 mmol/L (22-29); Chloride 104 mmol/L (96-108); Creatinine Clr Calc Pharmacy 117.8; Estimated Glomerular Filt Rate > 60; Glucose Random 83 mg/dL (60-115); Lipase 13 U/L (8-78); Potassium 4.8 mmol/L (3.3-5.1); Sodium 140 mmol/L (135-145); Total Protein 5.5 g/dL (6.5-8.0)
[2022-09-11 07:37] VITALS: BP 172/94; PULSE 60; RESP 18; TEMP 36.3; O2SAT 94
[2022-09-11] MEDS: Isosorbide Mononitrate 30 MG TAB.ER.24H PO (08:01)
[2022-09-11] MEDS: Ranolazine 500 MG TAB.ER.12H 1000 MG PO ×2 (08:01→21:31)
[2022-09-11] MEDS: Ezetimibe 10 MG TABLET PO (08:01)
[2022-09-11] MEDS: Multivitamin TABLET 1 TAB PO (08:02)
[2022-09-11] MEDS: oxyCODONE HCl Immed Release 5 MG TABLET 10 MG PO ×2 (08:02→12:59)
[2022-09-11] MEDS: 0.9 % Sodium Chloride Flush 3 ML SYRINGE IVFLUSH (08:02)
[2022-09-11] MEDS: levETIRAcetam 500 MG TABLET PO (08:02)
[2022-09-11] MEDS: Pantoprazole Sodium 40 MG/10 ML VIAL IVPUSH (08:02)
[2022-09-11] MEDS: Aspirin Enteric Coated 81 MG TABLET.DR PO (08:43)
--- NOTE | 2022-09-11 09:14 | PM.GICN ---
History of Present Illness Data of Consult Service Date: 09/11/22 Requesting physician: Alan Rosario Primary Care Provider: Memo Alex MD HPI Reason for consult: Choledocholithiasis This is a 67-year-old gentleman with past medical history of atrial fibrillation on apixaban, sick sinus syndrome status post pacemaker implantation ([place] accent), coronary artery disease, GERD, GERD, s/p CCYwho presented to the hospital for abdominal pain and elevated LFTs found to have choledocholithiasis. History was obtained from the patient, who states that he has been on well for the past 15 days. Was not having as much abdominal pain before, however was developing postprandial nausea and vomiting. Not able to tolerate much p.o.. Associated with significant weight loss during this time duration as well. Earlier this week, he also had fevers and sweats for which he was taking Tylenol. No for the past couple of days he has also been having abdominal pain which is very severe, radiates from left to right side. He eventually went to urgent care to be seen where he was found to have elevated LFTs and was therefore advised to go to the emergency room. On arrival to the hospital, he was noted to be afebrile with stable vitals. Labs were significant for AST 57, ALT 174 alk-phos 826 and bili were 0.9, which subsequently worsened on recheck this morning. Abdominal imaging including CT abdomen pelvis shows dilated CBD to 1.2 cm with filling defects in the distal CBD she. Gallbladder surgically absent. Of note, pancreas are atrophic. No pancreatic ductal dilatation. He subsequently also had an ultrasound abdomen that showed similar findings, although the filling defects were not well appreciated. Review of Systems Review of Systems: Yes all other systems are reviewed and are negative [facility] Past Medical History Medical History Atherosclerotic cardiovascular disease Brain bleed Brain lesion CAD (coronary artery disease) COVID-19 vaccine administered DVT (deep venous thrombosis) Esophagitis Essential hypertension GERD (gastroesophageal reflux disease) Headache History of chemotherapy Myocardial infarction Obstructive sleep apnea (~2018) On anticoagulant therapy Pacemaker (~05/2013) Personal history of nicotine dependence Psychotic disorder Seizures (~04/2020) Syncope Tremor Tubular adenoma of colon Family History Family History Father Heavy cigarette smoker Throat cancer Mother Heart disease Surgical History Surgical History History of appendectomy History of cardiac catheterization History of cholecystectomy History of colonoscopy (~09/2020) History of esophagogastroduodenoscopy (EGD) (~09/2020) History of permanent cardiac pacemaker placement (~05/2013) History of right knee surgery (~12/2013) History of spinal surgery History of total right hip replacement (~06/2012) Stented coronary artery Social History Social History Household Members: None Household Members Other:: shares house with a friend Housing: House Are you a primary healthcare architect to a significant other at home: No Do you presently have visiting nurse or other home services: No Alcohol intake: former Patient Tobacco Use Status: Current everyday Tobacco user Tobacco use type: Cigarette Cigarette Packs Per Day: 1 Cigarettes Per Day: 20.0 Years Smoked: 25 years (age [age] then 49 to present, max 1.5ppd, now 1/2ppd) Smoked in Last 30 Days: Yes e-Cigarette/Vaping Use: Never Used Patient Interested in Nicotine Replacement: Yes Patient Given Instructions on How to Stop Smoking: No (pt no desire to quitting) Second Hand Smoke Exposure: No Use of substances other than those prescribed or required for medical reasons: No Currently Displaying Signs/Symptoms of Drug Intoxication Withdrawal: No Any prior treatment program specific to substance use: No Have you been hit, kicked, punched, or otherwise hurt by someone within the past year? If so, by whom?: No Do you feel safe in your current relationship?: Yes Is there a partner from a previous relationship who is making you feel unsafe now?: No Are you made to feel afraid or neglected: No Advance Directives: Yes Advance Directives on File: Yes Advance Directives Date on File: 12/16/20 Do you have thoughts of harming others: None Do you have a plan to hurt others: No Plan Recently lost weight without trying: Yes How much weight loss: 14-23 pounds Eating poorly because of decreased appetite: Yes Nutrition screen score: 5 Nutrition Risks: Poor intake 0-25% >4 days Poor oral hygiene: No service: No Current occupational status: employed and retired Meds Allergies Allergy/AdvReac Type Severity Reaction Status Date / Time bee pollen [BEE STINGS] Allergy Severe ANAPHYLAXIS Verified 06/28/22 13:49 indomethacin [Indocin] Allergy Severe anaphylaxis Verified 06/28/22 13:49 tramadol [Ultram] Allergy Severe anaphylaxis Verified 06/28/22 13:49 Active Medications: Current Medications Amlodipine Besylate (Amlodipine Besylate 5 Mg Tablet) 5 mg PO DAILY [facility]; Protocol Aspirin (Aspirin Enteric Coated 81 Mg Tablet.Dr) 81 mg PO DAILY [facility] Last Admin: 09/11/22 08:43 Dose: 81 mg Cyclobenzaprine HCl (Cyclobenzaprine Hcl 10 Mg Tablet) 10 mg PO BID PRN PRN Reason: Muscle Spasm Divalproex Sodium (Divalproex Sodium Er 250 Mg Tab.Er.24h) 250 mg PO BEDTIME [facility] Last Admin: 09/10/22 21:28 Dose: 250 mg Ezetimibe (Ezetimibe 10 Mg Tablet) 10 mg PO DAILY [facility] Last Admin: 09/11/22 08:01 Dose: 10 mg Lactated Ringer's (Lr) 1,000 mls @ 100 mls/hr IVCONT .Q10H [facility] Last Admin: 09/11/22 05:29 Dose: 100 mls/hr Ceftriaxone Sodium 1 gm/ (Sodium Chloride) 50 mls @ 100 mls/hr IV Q24H [facility] Last Infusion: 09/10/22 21:58 Dose: Infused Metronidazole (Flagyl) 500 mg in 100 mls @ 100 mls/hr IV Q8H [facility] Last Infusion: 09/11/22 06:26 Dose: Infused Isosorbide Mononitrate (Isosorbide Mononitrate 30 Mg Tab.Er.24h) 30 mg PO DAILY [facility]; Protocol Last Admin: 09/11/22 08:01 Dose: 30 mg Levetiracetam (Levetiracetam 500 Mg Tablet) 500 mg PO BID [facility] Last Admin: 09/11/22 08:02 Dose: 500 mg Morphine Sulfate (Morphine Sulfate 4 Mg/Ml Cartridge) 4 mg IVPUSH Q4H PRN; Protocol PRN Reason: abd pain Last Admin: 09/11/22 06:23 Dose: 4 mg Multivitamins/Vitamin C (Multivitamin Tablet) 1 tab PO DAILY [facility] Last Admin: 09/11/22 08:02 Dose: 1 tab Nitroglycerin (Nitroglycerin 0.4 Mg Tab.Subl) 0.4 mg SUBLINGUAL Q5M PRN PRN Reason: chest pain Oxycodone HCl (Oxycodone Hcl Immed Release 5 Mg Tablet) 10 mg PO Q5H PRN PRN Reason: Moderate Pain (Scale Score 5-6) Last Admin: 09/11/22 08:02 Dose: 10 mg Pantoprazole Sodium (Pantoprazole Sodium 40 Mg/10 Ml Vial) 40 mg IVPUSH DAILY [facility] Last Admin: 09/11/22 08:02 Dose: 40 mg Pharmacy Consult (Consult Rx Perform Med Rec) 1 each MISCELLANE ONCE PRN PRN Reason: Consult order Primidone (Primidone 50 Mg Tablet) 250 mg PO BID [facility] Last Admin: 09/11/22 08:04 Dose: Not Given Ranolazine (Ranolazine 500 Mg Tab.Er.12h) 1,000 mg PO BID [facility] Last Admin: 09/11/22 08:01 Dose: 1,000 mg Sodium Chloride (0.9 % Sodium Chloride Flush 3 Ml Syringe) 3 ml IVFLUSH QSHIFT [facility] Last Admin: 09/11/22 08:02 Dose: 3 ml Home Medications Medication Instructions Recorded Confirmed Last Taken Type amlodipine 10 mg tablet (Norvasc) 10 mg PO DAILY 04/25/20 09/10/22 06/19/21 History aspirin 81 mg tablet,delayed 81 mg PO DAILY 04/25/20 09/10/22 06/19/21 History release (Adult Low Dose Aspirin) rosuvastatin 40 mg tablet (Crestor) 40 mg PO BEDTIME chloestrol 04/25/20 09/10/22 06/18/21 History oxycodone 10 mg tablet 10 mg PO Q5H PRN Moderate Pain 04/26/20 09/10/22 06/19/21 History (Scale Score 5-6) divalproex 250 mg tablet,extended 250 mg PO BEDTIME 09/08/20 09/10/22 06/18/21 History release 24 hr (Depakote ER) ezetimibe 10 mg tablet (Zetia) 10 mg PO DAILY 10/24/20 09/10/22 06/19/21 History lisinopril 10 mg tablet (Zestril) 10 mg PO DAILY 10/24/20 09/10/22 06/19/21 History multivitamin (Daily Vitamin 1 tab PO DAILY 10/24/20 09/10/22 06/19/21 History Formula tablet) pantoprazole 40 mg tablet,delayed 40 mg PO DAILY@0630 10/24/20 09/10/22 06/19/21 History release (Protonix) apixaban 5 mg tablet (Eliquis) 5 mg PO BID 01/08/21 09/10/22 06/19/21 History levetiracetam 500 mg tablet 500 mg PO BID 06/19/21 06/28/22 06/19/21 History (Keppra) nitroglycerin 0.4 mg sublingual 0.4 mg sublingual Q5M PRN chest 11/29/21 09/10/22 Unknown History tablet (Nitrostat) pain primidone 250 mg tablet 250 mg PO BID 03/05/22 06/28/22 Unknown History cyclobenzaprine 10 mg tablet 1 tab PO BID PRN Muscle Spasm 06/13/22 09/10/22 Unknown History isosorbide mononitrate 30 mg 30 mg PO DAILY 09/10/22 09/10/22 Unknown History tablet,extended release 24 hr ranolazine 1,000 mg 1,000 mg PO BID 09/10/22 09/10/22 Unknown History tablet,extended release,12 hr Physical Exam Vital Signs: Vital Signs: Last Vital Signs Temp 97.3 F 09/11/22 07:37 Pulse 60 09/11/22 07:37 Resp 18 09/11/22 07:37 BP 172/94 H 09/11/22 07:37 Pulse Ox 94 09/11/22 07:37 O2 Del Method Room Air 09/11/22 07:37 BMI result Body Mass Index 27.1 Gen appear: In moderate distress, clammy HEENT: no icterus, no cervical lymphadenopathy Chest: No overt resp distress CVS: S1/S2, regular Abd: soft, tender, nondistended Psych: Stable affect, answering questions appropriately Neuro: A/Ox3 noted to move all extremities spontaneously Ext: no peripheral edema Results Labs 09/11/22 05:29 09/11/22 05:29 Labs: Short CBC 09/10/22 09/11/22 Range/Units 13:09 05:29 WBC 8.5 9.1 (4.8-10.8) X10*3/uL Hgb 13.2 L 12.5 L (14.0-18.0) g/dl Hct 40.2 L 37.7 L (42.0-52.0) % Plt Count 394 D 297 (160-400) X10*3/uL BMP 09/10/22 09/11/22 13:09 05:29 Sodium 137 140 Potassium 4.8 4.8 Chloride 100 104 Carbon Dioxide 27 25 BUN 14 9 Creatinine 0.76 0.63 Calcium 8.9 8.5 Liver Function 09/10/22 09/11/22 Range/Units 13:09 05:29 Total Bilirubin 0.9 1.6 H (0.0-1.0) mg/dL AST 57 H 125 H (5-37) U/L ALT 174 H 180 H (0-40) U/L Alkaline Phosphatase 826 H 812 H (39-117) U/L Albumin 3.7 3.2 L (3.5-5.0) g/dL Urine 09/10/22 Range/Units 16:43 Urine Color Dark Yellow Urine Appearance Clear Urine pH 6.5 (5.0-9.0) Ur Specific [place] >= 1.030 H (1.005-1.025) Urine Protein Negative (Neg-Trace) mg/dL Urine Glucose (UA) Negative (Negative) mg/dL Imaging CT scan - abdomen: Attestation: I personally reviewed and interpreted this imaging study as follows: My impression: Dilated CBD with filling defects/sludge in distal CBD. GB absent. Pancreas atrophic. Assessment and Plan (1) Choledocholithiasis: Status: Acute (2) PAF (paroxysmal atrial fibrillation): Status: Acute (3) On anticoagulant therapy: Status: Acute Plan Abdominal pain and LFTs consistent with choledocholithiasis as noted on CT abdomen and pelvis. No evidence of cholangitis or acute pancreatitis at this time. Patient takes Eliquis for atrial fibrillation, last dose 4/4 in the morning. We will plan for an ERCP tentatively tomorrow (Dr. Graza). Procedure indication, risks versus benefits were reviewed with the patient who is in agreement to proceed. Recommendations: -can have low fat clear liquids today -optimize pain management. Consider scheduled Tylenol with p.r.n. oxy or morphine. -continue to hold apixaban. Okay to continue aspirin 81 -NPO after midnight for ERCP tomorrow Plan of care was discussed with the RN and hospitalist. Thank you for allowing me to participate in his care. Please do not hesitate to reach out for any questions or concerns. Time Spent With Patient Time: Total time managing care of this patient today ____ minutes. Procedures Date of Service Date of Service: 09/11/22
[2022-09-11] MEDS: amLODIPine Besylate 5 MG TABLET PO (09:29)
[2022-09-11] MEDS: HYDROmorphone HCl 1 MG/ML SYRINGE IVPUSH ×4 (10:31→23:39)
[2022-09-11] MEDS: Acetaminophen 325 MG TABLET 650 MG PO ×3 (10:34→21:31)
--- NOTE | 2022-09-11 11:19 | HO.PM.IMPN ---
Subjective Subjective Date of Service: 09/11/22 Interval History: abd pain Review of Systems Patient still has abdominal pain similar to yesterday, specially in right upper quadrant area, somewhat nauseated. No vomiting No fever or chills. Physical Exam Vital Signs: Vital Signs: Last Vital Signs Temp 97.3 F 09/11/22 07:37 Pulse 60 09/11/22 07:37 Resp 18 09/11/22 07:37 BP 172/94 H 09/11/22 07:37 Pulse Ox 94 09/11/22 07:37 O2 Del Method Room Air 09/11/22 07:37 BMI result Body Mass Index 27.1 Appearance: Alert.? Oriented X3.? abd pain cvs: rrr, [id number] . res: clear to auscultation ,no rhonchii or wheezing abd: no rebound or guarding ,ruq pain, bs present. ext pulses present , no cyanosis . neuro: axo3 , nonfocal. Objective Data Active Medications Acetaminophen (Acetaminophen 325 Mg Tablet) 650 mg PO TID [facility] Last Admin: 09/11/22 10:34 Dose: 650 mg Documented By: JESSICA Amlodipine Besylate (Amlodipine Besylate 5 Mg Tablet) 5 mg PO DAILY [facility]; Protocol Last Admin: 09/11/22 09:29 Dose: 5 mg Documented By: JESSICA Amlodipine Besylate (Amlodipine Besylate 10 Mg Tablet) 10 mg PO DAILY [facility]; Protocol Aspirin (Aspirin Enteric Coated 81 Mg Tablet.) 81 mg PO DAILY [facility] Last Admin: 09/11/22 08:43 Dose: 81 mg Documented By: JESSICA Cyclobenzaprine HCl (Cyclobenzaprine Hcl 10 Mg Tablet) 10 mg PO BID PRN PRN Reason: Muscle Spasm Divalproex Sodium (Divalproex Sodium Er 250 Mg Tab.Er.24h) 250 mg PO BEDTIME [facility] Last Admin: 09/10/22 21:28 Dose: 250 mg Documented By: ELIANA Ezetimibe (Ezetimibe 10 Mg Tablet) 10 mg PO DAILY [facility] Last Admin: 09/11/22 08:01 Dose: 10 mg Documented By: JESSICA Hydromorphone HCl (Hydromorphone Hcl 1 Mg/Ml Syringe) 1 mg IVPUSH Q4H PRN; Protocol PRN Reason: Pain, Mild (Pain Scale 1-3) Last Admin: 09/11/22 10:31 Dose: 1 mg Documented By: JESSICA Lactated Ringer's (Lr) 1,000 mls @ 100 mls/hr IVCONT .Q10H [facility] Last Admin: 09/11/22 05:29 Dose: 100 mls/hr Documented By: ELIANA Ceftriaxone Sodium 1 gm/ (Sodium Chloride) 50 mls @ 100 mls/hr IV Q24H [facility] Last Infusion: 09/10/22 21:58 Dose: 0 mls/hr Documented By: ELIANA Metronidazole (Flagyl) 500 mg in 100 mls @ 100 mls/hr IV Q8H [facility] Last Infusion: 09/11/22 06:26 Dose: 0 mls/hr Documented By: ELIANA Isosorbide Mononitrate (Isosorbide Mononitrate 30 Mg Tab.Er.24h) 30 mg PO DAILY [facility]; Protocol Last Admin: 09/11/22 08:01 Dose: 30 mg Documented By: JESSICA Levetiracetam (Levetiracetam 500 Mg Tablet) 500 mg PO BID [facility] Last Admin: 09/11/22 08:02 Dose: 500 mg Documented By: JESSICA Multivitamins/Vitamin C (Multivitamin Tablet) 1 tab PO DAILY [facility] Last Admin: 09/11/22 08:02 Dose: 1 tab Documented By: JESSICA Nitroglycerin (Nitroglycerin 0.4 Mg Tab.Subl) 0.4 mg SUBLINGUAL Q5M PRN PRN Reason: chest pain Oxycodone HCl (Oxycodone Hcl Immed Release 5 Mg Tablet) 10 mg PO Q5H PRN PRN Reason: Moderate Pain (Scale Score 5-6) Last Admin: 09/11/22 08:02 Dose: 10 mg Documented By: JESSICA Pantoprazole Sodium (Pantoprazole Sodium 40 Mg/10 Ml Vial) 40 mg IVPUSH DAILY [facility] Last Admin: 09/11/22 08:02 Dose: 40 mg Documented By: JESSICA Pharmacy Consult (Consult Rx Perform Med Rec) 1 each MISCELLANE ONCE PRN PRN Reason: Consult order Primidone (Primidone 50 Mg Tablet) 250 mg PO BID [facility] Last Admin: 09/11/22 08:04 Dose: Not Given Documented By: JESSICA Non-Admin Reason: Patient Refused Ranolazine (Ranolazine 500 Mg Tab.Er.12h) 1,000 mg PO BID [facility] Last Admin: 09/11/22 08:01 Dose: 1,000 mg Documented By: JESSICA Sodium Chloride (0.9 % Sodium Chloride Flush 3 Ml Syringe) 3 ml IVFLUSH QSHIFT [facility] Last Admin: 09/11/22 08:02 Dose: 3 ml Documented By: JESSICA Labs 09/11/22 05:29 09/11/22 05:29 Labs: Laboratory Results - last 24 hr 09/10/22 09/10/22 09/10/22 13:09 13:09 13:09 MCV 91.8 MCH 30.1 MCHC 32.8 RDW 13.6 Plt Count 394 D MPV 8.7 L Immature Gran % (Auto) 0.7 H Neut % (Auto) 63.0 Lymph % (Auto) 22.4 [place] % (Auto) 8.5 Eos % (Auto) 4.6 H Baso % (Auto) 0.8 Lymph # (Auto) 1.9 [place] # (Auto) 0.7 Eos # (Auto) 0.4 Baso # (Auto) 0.1 Abs Immat Gran (auto) 0.06 H Absolute Neuts (auto) 5.4 Absolute Nucleated RBC 0.000 Nucleated RBC % (auto) 0.0 PT INR APTT Anion Gap 15 Estim Creat Clear Calc 97.7 Estimated GFR > 60 Random Glucose 146 H Calcium 8.9 Magnesium 2.2 Total Bilirubin 0.9 AST 57 H ALT 174 H Alkaline Phosphatase 826 H Troponin I High Sens Total Protein 6.4 L Albumin 3.7 Triglycerides 181 Lipase 21 Urine Color Urine Appearance Urine pH Ur Specific [place] Urine Protein Urine Glucose (UA) Urine Ketones Urine Blood Urine Nitrite Ur Leukocyte Esterase COVID-19 ([facility]) Negative COVID-19 Clin Com See Note Blood Type Antibody Screen 09/10/22 09/10/22 09/10/22 16:43 18:23 18:23 MCV MCH MCHC RDW Plt Count MPV Immature Gran % (Auto) Neut % (Auto) Lymph % (Auto) [place] % (Auto) Eos % (Auto) Baso % (Auto) Lymph # (Auto) [place] # (Auto) Eos # (Auto) Baso # (Auto) Abs Immat Gran (auto) Absolute Neuts (auto) Absolute Nucleated RBC Nucleated RBC % (auto) PT INR APTT Anion Gap Estim Creat Clear Calc Estimated GFR Random Glucose Calcium Magnesium Total Bilirubin AST ALT Alkaline Phosphatase Troponin I High Sens < 2.7 D Total Protein Albumin Triglycerides Lipase Urine Color Dark Yellow Urine Appearance Clear Urine pH 6.5 Ur Specific [place] >= 1.030 H Urine Protein Negative Urine Glucose (UA) Negative Urine Ketones Negative Urine Blood Negative Urine Nitrite Negative Ur Leukocyte Esterase Negative COVID-19 ([facility]) COVID-19 [facility]gen Blood Type O Positive Antibody Screen NEGATIVE 09/10/22 09/11/22 09/11/22 19:35 05:29 05:29 MCV 92.2 MCH 30.6 MCHC 33.2 RDW 13.6 Plt Count 297 MPV 9.3 L Immature Gran % (Auto) Neut % (Auto) Lymph % (Auto) [place] % (Auto) Eos % (Auto) Baso % (Auto) Lymph # (Auto) [place] # (Auto) Eos # (Auto) Baso # (Auto) Abs Immat Gran (auto) Absolute Neuts (auto) Absolute Nucleated RBC 0.000 Nucleated RBC % (auto) 0.0 PT 11.0 INR 1.0 APTT 37.7 H Anion Gap 16 Estim Creat Clear Calc 117.8 Estimated GFR > 60 Random Glucose 83 Calcium 8.5 Magnesium Total Bilirubin 1.6 H AST 125 H ALT 180 H Alkaline Phosphatase 812 H Troponin I High Sens Total Protein 5.5 L Albumin 3.2 L Triglycerides Lipase 13 Urine Color Urine Appearance Urine pH Ur Specific [place] Urine Protein Urine Glucose (UA) Urine Ketones Urine Blood Urine Nitrite Ur Leukocyte Esterase COVID-19 ([facility]) COVID-19 [facility] Com Blood Type Antibody Screen Assessment and Plan (1) Choledocholithiasis: Status: Acute (2) Elevated liver enzymes: Status: Acute Plan 67-year-old male with a PMH significant for?extensive CAD with numerous cardiac catheterizations, 2 cardiac stents, pacemaker, history of recurrent DVT on Eliquis, small right occipital hemorrhage in 2019, numerous back surgeries chronically on Oxy 10 mg q5 daily, both total knee replacements, hip replacement, seizure disorder -? Patient came to hospital because of right upper quadrant pain and nausea vomiting. 1. ? Right upper quadrant pain:: ?? Question choledocholithiasis ?CT abdomen and ultrasound reviewed ?lfts ast,alt ,bilirubin somewhat wosening than yesterday , alkaline phos -similar . ? Plan:?iv fluids, pain medication morphine, monitor LFTs, antibiotics , hold Eliquis for now may need ERCP in a.m. d/w Gi-try clear liquids ,added tylenol,possible ercp in am 2. ? CAD: ? Continue aspirin, hold statin due to lft's, continue other cardiac meds 3.hx of DVT: hold eliquis fornow 4. hx of seizure : continue home seizure meds 5. boderline blood pressure : hold blood pressure meds. dvt prophylax: s/c heparin full code. need for inaptient : possible choledocholithiasis and severe abd pain- need? lft's moniterin,iv pain meds, possible ercp in am. Time Spent With Patient Time: Total time managing care of this patient today ____ minutes. Quality Stroke Does the patient have a stroke diagnosis?: No VTE Prior VTE?: No VTE Risk Level:: Medical - moderate - high VTE Device Contraindication: N/A - Device Ordered VTE Drug Contraindication: N/A - Med Ordered
--- NOTE | 2022-09-11 12:21 | MHC.CM.PN ---
pt lives alone is covid vax has a ride home if he is not able to drive his car home that [place] dc plan tbd home with vna vs str
[2022-09-11] MEDS: Nicotine 21 MG PATCH.TD24 TRANSDERMA (14:18)
--- NOTE | 2022-09-11 14:57 | PHA.MEDREC ---
Pharmacy Consult ? Medication Reconciliation Pharmacy has completed the medication reconciliation. Overnight [facility] had done the medication reconciliation and left a note with me to confirm if patient is on keppra and primidone once pharmacy is open in AM. Called [facility], patient has these orders active with no note of discontinuation but just has not recently picked them up.
[2022-09-11 15:49] VITALS: BP 111/58; PULSE 63; RESP 16; TEMP 36.6; O2SAT 95
[2022-09-11 20:00] VITALS: BP 150/82; PULSE 61; RESP 16; TEMP 36.1; O2SAT 97
[2022-09-11] MEDS: ondansetron HCL 4 MG/2 ML VIAL IVPUSH (21:21)
[2022-09-11] MEDS: cefTRIAXone sodium 1 GM in 0.9 % Sodium Chloride 50 ML IV (21:21)
[2022-09-11] MEDS: Divalproex Sodium ER 250 MG TAB.ER.24H PO (21:30)
[2022-09-11] MEDS: Primidone 50 MG TABLET 250 MG PO (21:30)
[2022-09-12] VITALS (10 sets, daily range): BP systolic 146–174; BP diastolic 75–88; PULSE 60–72; RESP 16–20; TEMP 36.2–37; O2SAT 93–98
[2022-09-12] MEDS: HYDROmorphone HCl 1 MG/ML SYRINGE IVPUSH ×3 (04:10→19:43)
[2022-09-12] MEDS: Lactated Ringers 1,000 ML 100 ML IVCONT ×2 (04:16→18:04)
[2022-09-12] MEDS: metroNIDAZOLE/NS 500 MG/100 ML PIGGYBACK 100 MG IV ×2 (05:37→22:32)
[2022-09-12 06:23] LABS: Anion Gap 15 (12-20)
[2022-09-12 07:45] LABS: Alanine Aminotransferase 205 U/L (0-40); Albumin Level 3.3 g/dL (3.5-5.0); Alkaline Phosphatase 945 U/L (39-117); Aspartate Amino Transferase 136 U/L (5-37); Bilirubin Total 6.3 mg/dL (0.0-1.0); Blood Urea Nitrogen 6 mg/dL (9-16); Calcium 8.5 mg/dL (8.4-10.2); Carbon Dioxide 26 mmol/L (22-29); Chloride 101 mmol/L (96-108); Creatinine Clr Calc Pharmacy 123.7; Estimated Glomerular Filt Rate > 60; Glucose Random 110 mg/dL (60-115); Potassium 4.4 mmol/L (3.3-5.1); Sodium 138 mmol/L (135-145); Total Protein 5.8 g/dL (6.5-8.0)
[2022-09-12] MEDS: Pantoprazole Sodium 40 MG/10 ML VIAL IVPUSH (08:32)
[2022-09-12] MEDS: Nicotine 21 MG PATCH.TD24 TRANSDERMA (08:33)
[2022-09-12] MEDS: Multivitamin TABLET 1 TAB PO (08:34)
[2022-09-12] MEDS: Ezetimibe 10 MG TABLET PO (08:35)
[2022-09-12] MEDS: Acetaminophen 325 MG TABLET 650 MG PO ×2 (08:36→22:05)
[2022-09-12] MEDS: Isosorbide Mononitrate 30 MG TAB.ER.24H PO (08:36)
[2022-09-12] MEDS: Aspirin Enteric Coated 81 MG TABLET.DR PO (08:36)
[2022-09-12] MEDS: Ranolazine 500 MG TAB.ER.12H 1000 MG PO ×2 (08:36→22:04)
[2022-09-12] MEDS: Primidone 50 MG TABLET 250 MG PO ×2 (08:37→22:05)
[2022-09-12] MEDS: levETIRAcetam 500 MG TABLET PO ×2 (08:37→22:05)
[2022-09-12] MEDS: ondansetron HCL 4 MG/2 ML VIAL IVPUSH ×2 (09:08→17:51)
--- NOTE | 2022-09-12 10:38 | MHC.SHP ---
Pre-Procedural Eval Section A Date of Service: 09/12/22 The patient is an INPATIENT: Yes The History & Physical has been completed within 30 days and I have reviewed it.: Yes Section B Chief Complaint: Abdominal Pain: Choledocholithiasis Allergies: Allergies Allergy/AdvReac Type Severity Reaction Status Date / Time bee pollen [BEE STINGS] Allergy Severe ANAPHYLAXIS Verified 06/28/22 13:49 indomethacin [Indocin] Allergy Severe anaphylaxis Verified 06/28/22 13:49 tramadol [Ultram] Allergy Severe anaphylaxis Verified 06/28/22 13:49 Plan Diagnosis/Plan: Unchanged I have reviewed the history and physical and performed a pertinent physical examination on my patient. No changes have occurred unless specified. Abn imaging and LFT with concern for choledocholithiasis Time Spent With Patient Time: Total time managing care of this patient today ____ minutes.
--- NOTE | 2022-09-12 11:57 | P.PNIM_ITS ---
Subjective Subjective Date of Service: 09/12/22 Interval History: Possible choledocholithiasis Review of Systems still in significant pain nuaseated no fever or chills Physical Exam Vital Signs: Vital Signs: Last Vital Signs Temp 98.6 F 09/12/22 07:33 Pulse 61 09/12/22 07:33 Resp 18 09/12/22 07:33 BP 155/75 H 09/12/22 07:33 Pulse Ox 94 09/12/22 07:33 O2 Del Method Room Air 09/12/22 07:33 BMI result Body Mass Index 27.1 Appearance: Alert.? Oriented X3.? abd pain cvs: rrr, [id number] . res: clear to auscultation ,no rhonchii or wheezing abd: no rebound or guarding ,ruq pain similar to yesterday, bs present. ext pulses present , no cyanosis . neuro: axo3 , nonfocal. Objective Data Active Medications Acetaminophen (Acetaminophen 325 Mg Tablet) 650 mg PO TID [facility] Last Admin: 09/12/22 08:36 Dose: 650 mg Documented By: TINY Amlodipine Besylate (Amlodipine Besylate 5 Mg Tablet) 5 mg PO DAILY [facility]; Protocol Last Admin: 09/11/22 09:29 Dose: 5 mg Documented By: JESSICA Aspirin (Aspirin Enteric Coated 81 Mg Tablet.) 81 mg PO DAILY [facility] Last Admin: 09/12/22 08:36 Dose: 81 mg Documented By: TINY Cyclobenzaprine HCl (Cyclobenzaprine Hcl 10 Mg Tablet) 10 mg PO BID PRN PRN Reason: Muscle Spasm Divalproex Sodium (Divalproex Sodium Er 250 Mg Tab.Er.24h) 250 mg PO BEDTIME [facility] Last Admin: 09/11/22 21:30 Dose: 250 mg Documented By: GARLAND Ezetimibe (Ezetimibe 10 Mg Tablet) 10 mg PO DAILY [facility] Last Admin: 09/12/22 08:35 Dose: 10 mg Documented By: TINY Hydromorphone HCl (Hydromorphone Hcl 1 Mg/Ml Syringe) 1 mg IVPUSH Q4H PRN; Protocol PRN Reason: Pain, Mild (Pain Scale 1-3) Last Admin: 09/12/22 08:30 Dose: 1 mg Documented By: TINY Ceftriaxone Sodium 1 gm/ (Sodium Chloride) 50 mls @ 100 mls/hr IV Q24H [facility] Last Infusion: 09/11/22 22:00 Dose: 0 mls/hr Documented By: GARLAND Metronidazole (Flagyl) 500 mg in 100 mls @ 100 mls/hr IV Q8H [facility] Last Infusion: 09/12/22 09:01 Dose: 0 mls/hr Documented By: TINY Lactated Ringer's (Lr) 1,000 mls @ 100 mls/hr IVCONT .Q10H [facility] Last Admin: 09/12/22 04:16 Dose: 100 mls/hr Documented By: GARLAND Isosorbide Mononitrate (Isosorbide Mononitrate 30 Mg Tab.Er.24h) 30 mg PO DAILY [facility]; Protocol Last Admin: 09/12/22 08:36 Dose: 30 mg Documented By: TINY Levetiracetam (Levetiracetam 500 Mg Tablet) 500 mg PO BID [facility] Last Admin: 09/12/22 08:37 Dose: 500 mg Documented By: TINY Multivitamins/Vitamin C (Multivitamin Tablet) 1 tab PO DAILY [facility] Last Admin: 09/12/22 08:34 Dose: 1 tab Documented By: TINY Nicotine (Nicotine 21 Mg Patch.Td24) 21 mg TRANSDERMA DAILY [facility] Last Admin: 09/12/22 08:33 Dose: 21 mg Documented By: TINY Nitroglycerin (Nitroglycerin 0.4 Mg Tab.Subl) 0.4 mg SUBLINGUAL Q5M PRN PRN Reason: chest pain Ondansetron HCl (Ondansetron Hcl 4 Mg/2 Ml Vial) 4 mg IVPUSH Q8H PRN PRN Reason: Nausea and Vomiting Last Admin: 09/12/22 09:08 Dose: 4 mg Documented By: TINY Oxycodone HCl (Oxycodone Hcl Immed Release 5 Mg Tablet) 10 mg PO Q5H PRN PRN Reason: Moderate Pain (Scale Score 5-6) Last Admin: 09/11/22 12:59 Dose: 10 mg Documented By: TYREE Pantoprazole Sodium (Pantoprazole Sodium 40 Mg/10 Ml Vial) 40 mg IVPUSH DAILY [facility] Last Admin: 09/12/22 08:32 Dose: 40 mg Documented By: TINY Pharmacy Consult (Consult Rx Perform Med Rec) 1 each MISCELLANE ONCE PRN PRN Reason: Consult order Primidone (Primidone 50 Mg Tablet) 250 mg PO BID [facility] Last Admin: 09/12/22 08:37 Dose: 250 mg Documented By: TINY Ranolazine (Ranolazine 500 Mg Tab.Er.12h) 1,000 mg PO BID [facility] Last Admin: 09/12/22 08:36 Dose: 1,000 mg Documented By: TINY Sodium Chloride (0.9 % Sodium Chloride Flush 3 Ml Syringe) 3 ml IVFLUSH QSHIFT [facility] Last Admin: 09/12/22 09:03 Dose: Not Given Documented By: TINY Non-Admin Reason: IV Running Labs 09/11/22 05:29 09/12/22 05:25 Labs: Laboratory Results - last 24 hr 09/12/22 05:25 Anion Gap 15 Estim Creat Clear Calc 123.7 Estimated GFR > 60 Random Glucose 110 Calcium 8.5 Total Bilirubin 6.3 H AST 136 H ALT 205 H Alkaline Phosphatase 945 H Total Protein 5.8 L Albumin 3.3 L Assessment and Plan (1) Choledocholithiasis: Status: Acute (2) Elevated liver enzymes: Status: Acute Plan 67-year-old male with a PMH significant for?extensive CAD with numerous cardiac catheterizations, 2 cardiac stents, pacemaker, history of recurrent DVT on Eliquis, small right occipital hemorrhage in 2019, numerous back surgeries chronically on Oxy 10 mg q5 daily, both total knee replacements, hip replacement, seizure disorder -? Patient came to hospital because of right upper quadrant pain and nausea vomiting. 1. ? Right upper quadrant pain:: ?? Question choledocholithiasis ?CT abdomen and ultrasound reviewed ?lfts ast,alt .alkphos slowly worsening,,bilirubin significant up than yesterday. ? Plan:?iv fluids, pain medication morphine, monitor LFTs, antibiotics , hold Eliquis for now may need ERCP in a.m. d/w Gi-could not natalio to tolerate po clear liquids ,added tylenol,possible ercp today 2. ? CAD: ? Continue aspirin, hold statin due to lft's, continue other cardiac meds 3.hx of DVT: hold eliquis fornow 4. hx of seizure : continue home seizure meds 5. boderline blood pressure : hold blood pressure meds. dvt prophylax: s/c heparin full code. need for inaptient : possible choledocholithiasis and severe abd pain- need? lft's moniterin,iv pain meds, could not natalio to tolerate po,unpossible ercp today. Time Spent With Patient Time: Total time managing care of this patient today ____ minutes. Quality Stroke Does the patient have a stroke diagnosis?: No VTE Prior VTE?: No VTE Risk Level:: Medical - moderate - high VTE Device Contraindication: N/A - Device Ordered VTE Drug Contraindication: N/A - Med Ordered
[2022-09-12 12:11] LABS: Lipase 77 U/L (8-78)
--- OUTSIDE RECORDS SUMMARY | 2022-09-12 13:05 | XMS_ITS ---
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 Name Role Phone Jose Cruz Miranda [facility] [phone] PROBLEMS Type Condition ICD9-CM Code [id number] Code Onset Dates Condition Status SNOMED Code Problem Pacemaker Z95.0 Active 479191900 Problem Myocardial infarction, unspecified ID type, unspecified artery I21.9 Active 41926012 Problem GERD (gastroesophageal reflux disease) K21.9 Active 172553252 Problem Primary osteoarthritis of both hips M16.0 Active 451848119 Problem Syncope R55 Active 804300385 Problem Atherosclerotic heart disease of [place] coronary artery with unspecified angina pectoris I25.119 Active 919982864 Problem Tubular adenoma of colon D12.6 Active 632258226 Problem HTN (hypertension) I10 Active 03806 003 Problem Acute deep vein thrombosis (DVT) of proximal vein of left lower extremity I82.4Y2 Active Problem Tobacco dependence F17.200 Active 29914 005 Problem Primary osteoarthritis of left knee M17.12 Active 526559484 ALLERGIES Substance Reaction Event Type Date Status Tramadol Unknown Drug Allergy Mar, Active Bee Sting Unknown Drug Allergy Mar, Active Pollen Unknown Drug Allergy Mar, Active Indocin Unknown Drug Allergy Mar, Active ENCOUNTERS Encounter Location Date Diagnosis Jose Cruz Miranda III, MD [address] [place] [address] [place] [address] Jan, Acute deep vein thrombosis (DVT) of proximal vein of left lower extremity I82.4Y2 ; HTN (hypertension) I10 ; GERD (gastroesophageal reflux disease) K21.9 ; Pacemaker Z95.0 and Tobacco dependence F17.200 Jose Cruz Miranda III, MD [address] [place] [address] [address], [place] [id number] 15 Dec, 2020 Acute deep vein thrombosis (DVT) of proximal vein of left lower extremity I82.4Y2 ; Tobacco dependence F17.200 ; Primary osteoarthritis of left knee M17.12 ; Primary osteoarthritis of both hips M16.0 ; Atherosclerotic heart disease of [place] coronary artery with unspecified angina pectoris I25.119 ; HTN (hypertension) I10 ; Pacemaker Z95.0 and Myocardial infarction, unspecified ID type, unspecified artery I21.9 IMMUNIZATIONS No Known [...] NGS [address] [place] [address] MEDICARE NGS self [place] [id number] MEDICAID [address] [facility] [id number] MEDICAID self [place] [id number]
--- NOTE | 2022-09-12 13:48 | MHC.CM.PN ---
MD CHANGED PT STATUS TO INPT, IMM DELIVERED.
--- NOTE | 2022-09-12 14:13 | P.CONAN_ITS ---
HPI - Anesthesia Eval Consult details Narrative: ERCP for cholylithiasis PMFSH Active Problems Active Problems: All Active Problems (Updated 09/11/22 @ 11:28 by Alan Rosario MD) Elevated liver enzymes (Acute) Choledocholithiasis (Acute) PAF (paroxysmal atrial fibrillation) (Acute) Choking episode (Acute) Elevated lactic acid level (Acute) Altered mental status (Acute) Hypoxia (Acute) Aspiration pneumonitis (Acute) Pacemaker lead malfunction (Acute) Atrial flutter (Acute) Internal derangement of right shoulder (Acute) Osteoarthritis of right shoulder (Acute) CAD (coronary artery disease) (Acute) Sick sinus syndrome (Acute) Pacemaker (Acute ~05/2013) PAD (peripheral artery disease) (Acute) DVT (deep venous thrombosis) (Chronic) On anticoagulant therapy (Acute) Cerebral calcification (Acute) Personal history of nicotine dependence (Acute) Achilles tendonitis (Acute) GERD (gastroesophageal reflux disease) (Acute) Past Medical History Medical History Atherosclerotic cardiovascular disease Brain bleed Brain lesion CAD (coronary artery disease) COVID-19 vaccine administered DVT (deep venous thrombosis) Esophagitis Essential hypertension GERD (gastroesophageal reflux disease) Headache History of chemotherapy Myocardial infarction Obstructive sleep apnea (~2018) On anticoagulant therapy Pacemaker (~05/2013) Personal history of nicotine dependence Psychotic disorder Seizures (~04/2020) Syncope Tremor Tubular adenoma of colon Family History Family History Father Heavy cigarette smoker Throat cancer Mother Heart disease Family history of problems with anesthesia: No Surgical History Surgical History History of appendectomy History of cardiac catheterization History of cholecystectomy History of colonoscopy (~09/2020) History of esophagogastroduodenoscopy (EGD) (~09/2020) History of permanent cardiac pacemaker placement (~05/2013) History of right knee surgery (~12/2013) History of spinal surgery History of total right hip replacement (~06/2012) Stented coronary artery History of Problems with Anesthesia: No Social History Social History Household Members: None Household Members Other:: shares house with a friend Housing: House Are you a primary childcare aide to a significant other at home: No Do you presently have visiting nurse or other home services: No Alcohol intake: former Patient Tobacco Use Status: Current everyday Tobacco user Tobacco use type: Cigarette Cigarette Packs Per Day: 0.5 Cigarettes Per Day: 10.0 Years Smoked: 8 Smoked in Last 30 Days: Yes e-Cigarette/Vaping Use: Never Used Patient Interested in Nicotine Replacement: Yes Patient Given Instructions on How to Stop Smoking: No (pt no desire to quitting) Second Hand Smoke Exposure: No Use of substances other than those prescribed or required for medical reasons: No Currently Displaying Signs/Symptoms of Drug Intoxication Withdrawal: No Any prior treatment program specific to substance use: No Have you been hit, kicked, punched, or otherwise hurt by someone within the past year? If so, by whom?: No Do you feel safe in your current relationship?: Yes Is there a partner from a previous relationship who is making you feel unsafe now?: No Are you made to feel afraid or neglected: No Are you DNR?: No Advance Directives: Yes Advance Directives on File: Yes Advance Directives Date on File: 12/16/20 Do you have thoughts of harming others: None Do you have a plan to hurt others: No Plan Recently lost weight without trying: Yes How much weight loss: 14-23 pounds Eating poorly because of decreased appetite: Yes Nutrition screen score: 5 Nutrition Risks: Poor intake 0-25% >4 days Poor oral hygiene: No service: No Current occupational status: employed and retired Meds Allergies Allergy/AdvReac Type Severity Reaction Status Date / Time bee pollen [BEE STINGS] Allergy Severe ANAPHYLAXIS Verified 09/12/22 12:28 indomethacin [Indocin] Allergy Severe anaphylaxis Verified 09/12/22 12:28 tramadol [Ultram] Allergy Severe anaphylaxis Verified 09/12/22 12:28 Active Medications: Current Medications Acetaminophen (Acetaminophen 325 Mg Tablet) 650 mg PO TID [facility] Last Admin: 09/12/22 08:36 Dose: 650 mg Amlodipine Besylate (Amlodipine Besylate 5 Mg Tablet) 5 mg PO DAILY [facility]; Protocol Last Admin: 09/11/22 09:29 Dose: 5 mg Aspirin (Aspirin Enteric Coated 81 Mg Tablet.Dr) 81 mg PO DAILY [facility] Last Admin: 09/12/22 08:36 Dose: 81 mg Cyclobenzaprine HCl (Cyclobenzaprine Hcl 10 Mg Tablet) 10 mg PO BID PRN PRN Reason: Muscle Spasm Divalproex Sodium (Divalproex Sodium Er 250 Mg Tab.Er.24h) 250 mg PO BEDTIME [facility] Last Admin: 09/11/22 21:30 Dose: 250 mg Ezetimibe (Ezetimibe 10 Mg Tablet) 10 mg PO DAILY [facility] Last Admin: 09/12/22 08:35 Dose: 10 mg Hydromorphone HCl (Hydromorphone Hcl 1 Mg/Ml Syringe) 1 mg IVPUSH Q4H PRN; Protocol PRN Reason: Pain, Mild (Pain Scale 1-3) Last Admin: 09/12/22 08:30 Dose: 1 mg Ceftriaxone Sodium 1 gm/ (Sodium Chloride) 50 mls @ 100 mls/hr IV Q24H [facility] Last Infusion: 09/11/22 22:00 Dose: Infused Metronidazole (Flagyl) 500 mg in 100 mls @ 100 mls/hr IV Q8H [facility] Last Infusion: 09/12/22 09:01 Dose: Infused Lactated Ringer's (Lr) 1,000 mls @ 100 mls/hr IVCONT .Q10H [facility] Last Admin: 09/12/22 04:16 Dose: 100 mls/hr Isosorbide Mononitrate (Isosorbide Mononitrate 30 Mg Tab.Er.24h) 30 mg PO DAILY [facility]; Protocol Last Admin: 09/12/22 08:36 Dose: 30 mg Levetiracetam (Levetiracetam 500 Mg Tablet) 500 mg PO BID [facility] Last Admin: 09/12/22 08:37 Dose: 500 mg Multivitamins/Vitamin C (Multivitamin Tablet) 1 tab PO DAILY [facility] Last Admin: 09/12/22 08:34 Dose: 1 tab Nicotine (Nicotine 21 Mg Patch.Td24) 21 mg TRANSDERMA DAILY [facility] Last Admin: 09/12/22 08:33 Dose: 21 mg Nitroglycerin (Nitroglycerin 0.4 Mg Tab.Subl) 0.4 mg SUBLINGUAL Q5M PRN PRN Reason: chest pain Ondansetron HCl (Ondansetron Hcl 4 Mg/2 Ml Vial) 4 mg IVPUSH Q8H PRN PRN Reason: Nausea and Vomiting Last Admin: 09/12/22 09:08 Dose: 4 mg Oxycodone HCl (Oxycodone Hcl Immed Release 5 Mg Tablet) 10 mg PO Q5H PRN PRN Reason: Moderate Pain (Scale Score 5-6) Last Admin: 09/11/22 12:59 Dose: 10 mg Pantoprazole Sodium (Pantoprazole Sodium 40 Mg/10 Ml Vial) 40 mg IVPUSH DAILY [facility] Last Admin: 09/12/22 08:32 Dose: 40 mg Pharmacy Consult (Consult Rx Perform Med Rec) 1 each MISCELLANE ONCE PRN PRN Reason: Consult order Primidone (Primidone 50 Mg Tablet) 250 mg PO BID [facility] Last Admin: 09/12/22 08:37 Dose: 250 mg Ranolazine (Ranolazine 500 Mg Tab.Er.12h) 1,000 mg PO BID [facility] Last Admin: 09/12/22 08:36 Dose: 1,000 mg Sodium Chloride (0.9 % Sodium Chloride Flush 3 Ml Syringe) 3 ml IVFLUSH QSHIFT [facility] Last Admin: 09/12/22 09:03 Dose: Not Given Home Medications Medication Instructions Recorded Confirmed Last Taken Type amlodipine 10 mg tablet (Norvasc) 10 mg PO DAILY 04/25/20 09/10/22 06/19/21 History aspirin 81 mg tablet,delayed 81 mg PO DAILY 04/25/20 09/10/22 06/19/21 History release (Adult Low Dose Aspirin) rosuvastatin 40 mg tablet (Crestor) 40 mg PO BEDTIME chloestrol 04/25/20 09/10/22 06/18/21 History oxycodone 10 mg tablet 10 mg PO Q5H PRN Moderate Pain 04/26/20 09/10/22 06/19/21 History (Scale Score 5-6) divalproex 250 mg tablet,extended 250 mg PO BEDTIME 09/08/20 09/10/22 06/18/21 History release 24 hr (Depakote ER) ezetimibe 10 mg tablet (Zetia) 10 mg PO DAILY 10/24/20 09/10/22 06/19/21 History lisinopril 10 mg tablet (Zestril) 10 mg PO DAILY 10/24/20 09/10/22 06/19/21 History multivitamin (Daily Vitamin 1 tab PO DAILY 10/24/20 09/10/22 06/19/21 History Formula tablet) pantoprazole 40 mg tablet,delayed 40 mg PO DAILY@0630 10/24/20 09/10/22 06/19/21 History release (Protonix) apixaban 5 mg tablet (Eliquis) 5 mg PO BID 01/08/21 09/12/22 09/08/22 History levetiracetam 500 mg tablet 500 mg PO BID 06/19/21 09/11/22 06/19/21 History (Keppra) nitroglycerin 0.4 mg sublingual 0.4 mg sublingual Q5M PRN chest 11/29/21 09/10/22 Unknown History tablet (Nitrostat) pain primidone 250 mg tablet 250 mg PO BID 03/05/22 09/11/22 Unknown History cyclobenzaprine 10 mg tablet 1 tab PO BID PRN Muscle Spasm 06/13/22 09/10/22 Unknown History isosorbide mononitrate 30 mg 30 mg PO DAILY 09/10/22 09/10/22 Unknown History tablet,extended release 24 hr ranolazine 1,000 mg 1,000 mg PO BID 09/10/22 09/10/22 Unknown History tablet,extended release,12 hr Exam Exam Date and Time: September 12, 2022 1413 Height,Weight and Vital Signs: Height 5 ft 11 in Weight 88.2 kg Last Vital Signs Temp 97.6 F 09/12/22 12:29 Pulse 60 09/12/22 12:29 Resp 18 09/12/22 12:29 BP 153/78 H 09/12/22 12:29 Pulse Ox 94 09/12/22 12:29 O2 Del Method Room Air 09/12/22 12:29 Pertinent Lab Results Pertinent Lab Results: Laboratory Tests 09/10/22 09/10/22 09/10/22 13:09 13:09 13:09 WBC 8.5 RBC 4.38 L Hgb 13.2 L Hct 40.2 L MCV 91.8 MCH 30.1 MCHC 32.8 RDW 13.6 Plt Count 394 D MPV 8.7 L Immature Gran % (Auto) 0.7 H Neut % (Auto) 63.0 Lymph % (Auto) 22.4 [place] % (Auto) 8.5 Eos % (Auto) 4.6 H Baso % (Auto) 0.8 Lymph # (Auto) 1.9 [place] # (Auto) 0.7 Eos # (Auto) 0.4 Baso # (Auto) 0.1 Abs Immat Gran (auto) 0.06 H Absolute Neuts (auto) 5.4 Absolute Nucleated RBC 0.000 Nucleated RBC % (auto) 0.0 PT INR APTT Sodium 137 Potassium 4.8 Chloride 100 Carbon Dioxide 27 Anion Gap 15 BUN 14 Creatinine 0.76 Estim Creat Clear Calc 97.7 Estimated GFR > 60 Random Glucose 146 H Calcium 8.9 Magnesium 2.2 Total Bilirubin 0.9 AST 57 H ALT 174 H Alkaline Phosphatase 826 H Troponin I High Sens Total Protein 6.4 L Albumin 3.7 Triglycerides 181 Lipase 21 Urine Color Urine Appearance Urine pH Ur Specific [place] Urine Protein Urine Glucose (UA) Urine Ketones Urine Blood Urine Nitrite Ur Leukocyte Esterase COVID-19 ([facility]) Negative COVID-19 Clin Com See Note Blood Type Antibody Screen 09/10/22 09/10/22 09/10/22 16:43 18:23 18:23 WBC RBC Hgb Hct MCV MCH MCHC RDW Plt Count MPV Immature Gran % (Auto) Neut % (Auto) Lymph % (Auto) [place] % (Auto) Eos % (Auto) Baso % (Auto) Lymph # (Auto) [place] # (Auto) Eos # (Auto) Baso # (Auto) Abs Immat Gran (auto) Absolute Neuts (auto) Absolute Nucleated RBC Nucleated RBC % (auto) PT INR APTT Sodium Potassium Chloride Carbon Dioxide Anion Gap BUN Creatinine Estim Creat Clear Calc Estimated GFR Random Glucose Calcium Magnesium Total Bilirubin AST ALT Alkaline Phosphatase Troponin I High Sens < 2.7 D Total Protein Albumin Triglycerides Lipase Urine Color Dark Yellow Urine Appearance Clear Urine pH 6.[address] [place] >= 1.030 H Urine Protein Negative Urine Glucose (UA) Negative Urine Ketones Negative Urine Blood Negative Urine Nitrite Negative Ur Leukocyte Esterase Negative COVID-19 ([facility]) COVID-19 Clin Com Blood Type O Positive Antibody Screen NEGATIVE 09/10/22 09/11/22 09/11/22 19:35 05:29 05:29 WBC 9.1 RBC 4.09 L Hgb 12.5 L Hct 37.7 L MCV 92.2 MCH 30.6 MCHC 33.2 RDW 13.6 Plt Count 297 MPV 9.3 L Immature Gran % (Auto) Neut % (Auto) Lymph % (Auto) [place] % (Auto) Eos % (Auto) Baso % (Auto) Lymph # (Auto) [place] # (Auto) Eos # (Auto) Baso # (Auto) Abs Immat Gran (auto) Absolute Neuts (auto) Absolute Nucleated RBC 0.000 Nucleated RBC % (auto) 0.0 PT 11.0 INR 1.0 APTT 37.7 H Sodium 140 Potassium 4.8 Chloride 104 Carbon Dioxide 25 Anion Gap 16 BUN 9 Creatinine 0.63 Estim Creat Clear Calc 117.8 Estimated GFR > 60 Random Glucose 83 Calcium 8.5 Magnesium Total Bilirubin 1.6 H AST 125 H ALT 180 H Alkaline Phosphatase 812 H Troponin I High Sens Total Protein 5.5 L Albumin 3.2 L Triglycerides Lipase 13 Urine Color Urine Appearance Urine pH Ur Specific [place] Urine Protein Urine Glucose (UA) Urine Ketones Urine Blood Urine Nitrite Ur Leukocyte Esterase COVID-19 ([place]) [employer] Blood Type Antibody Screen 09/12/22 05:25 WBC RBC Hgb Hct MCV MCH MCHC RDW Plt Count MPV Immature Gran % (Auto) Neut % (Auto) Lymph % (Auto) [place] % (Auto) Eos % (Auto) Baso % (Auto) Lymph # (Auto) [place] # (Auto) Eos # (Auto) Baso # (Auto) Abs Immat Gran (auto) Absolute Neuts (auto) Absolute Nucleated RBC Nucleated RBC % (auto) PT INR APTT Sodium 138 Potassium 4.4 Chloride 101 Carbon Dioxide 26 Anion Gap 15 BUN 6 L Creatinine 0.60 Estim Creat Clear Calc 123.7 Estimated GFR > 60 Random Glucose 110 Calcium 8.5 Magnesium Total Bilirubin 6.3 H AST 136 H ALT 205 H Alkaline Phosphatase 945 H Troponin I High Sens Total Protein 5.8 L Albumin 3.3 L Triglycerides Lipase 77 Urine Color Urine Appearance Urine pH Ur Specific [place] Urine Protein Urine Glucose (UA) Urine Ketones Urine Blood Urine Nitrite Ur Leukocyte Esterase COVID-19 ([facility]) COVID-19 [employer] Blood Type Antibody Screen Airway Mallampati Class: II TM Dist: >3cm Neck ROM: Limited (decreased rom from cervical disc decompression ) Denture: Upper Partial: Upper Heart: RR Lungs: CTA Assessment and Plan Assessment Anesthesia Assessment: Anesthesia Plan Discussed and Chart Reviewed Final Anesthetic Review Family History of Problems with Anesthesia: No History of Problems with Anesthesia: No NPO: Yes ASA Class: III Final Preanesthetic Review: No Changes in Pt Med Stat, Meds/Allgs Chart Reviewed, Consent Obtained/Reviewed and Anes Risks/Benef Reviewed Patient Risk: Low Procedure Risk: Low Anesthetic Plan Anesthetic Plan: GA and Agree w/ Assess. and Plan Disposition: Standard PACU
--- NOTE | 2022-09-12 15:01 | W.PM.OPN ---
Operative Note Operative Note Date of Service: 09/12/22 Narrative: Description: Endoscopic retrograde cholangiopancreatography (ERCP) PROCEDURE: Endoscopic retrograde cholangiopancreatography with sphincterotomy, balloon dilation, balloon extraction, and occlusion cholangiogram INDICATION FOR THE PROCEDURE: Patient with a history of abdominal pain and imaging revealing CBD stones, abn LFT MEDICATIONS: General anesthesia, The risks of the procedure were made aware to the patient and consisted of medication reaction, bleeding, perforation, aspiration, and post ERCP pancreatitis. The patient was in the left lateral position and not prone. DESCRIPTION OF PROCEDURE: After informed consent and appropriate sedation, the duodenoscope was inserted into the oropharynx, down the esophagus, and into the stomach. The scope was then advanced through the pylorus to the ampulla. The ampulla had a markedly abnormal appearance, with purulent material noted. The sphincterotome was angled and access to the CBD was immediately gained. There was a flush of purulent fluid. A cholangiogram confirmed position in the CBD and also a filling defect in the distal CBD. A sphincterotomy was performed with flush of bilious sludge and microlithiasis noted. The ampulla was dilated with the hurricaine balloon. A 12 mm extraction balloon was then dragged up and down the CBD with thick sludge and few small calculi noted coming out. A basket was also used to help dredge the duct. Finally an occlusion cholangiogram was performed with no filling defects seen and good drainage of contrast. There was some minor oozing which had ceased by the end of the procedure. The stomach was then decompressed and the endoscope was withdrawn. FINDINGS: 1. choledocholithiasis and cholangitis RECOMMENDATIONS: 1. NPO except ice chips for next 4-6 hrs then clears as tolerated, can advance diet tomorrow if feels well 2. Hold eliquis for 2 days and can restart Friday morning. 3. Can stop antibiotics now as duct is draining nicely. Can trend LFT.
[2022-09-12] MEDS: cefTRIAXone sodium 1 GM in 0.9 % Sodium Chloride 50 ML IV (22:01)
[2022-09-12] MEDS: Divalproex Sodium ER 250 MG TAB.ER.24H PO (22:05)
[2022-09-12] MEDS: Prochlorperazine Edisylate 10 MG/2 ML VIAL 5 MG IVPUSH (23:23)
[2022-09-13] MEDS: Lactated Ringers 1,000 ML 100 ML IVCONT ×2 (01:00→16:39)
[2022-09-13] MEDS: HYDROmorphone HCl 1 MG/ML SYRINGE IVPUSH ×5 (01:58→23:25)
[2022-09-13 03:38] VITALS: BP 132/60; PULSE 63; RESP 17; TEMP 36.4; O2SAT 95
[2022-09-13] MEDS: metroNIDAZOLE/NS 500 MG/100 ML PIGGYBACK 100 MG IV ×3 (05:23→20:35)
[2022-09-13 07:09] LABS: Alanine Aminotransferase 179 U/L (0-40); Alkaline Phosphatase 881 U/L (39-117); Anion Gap 14 (12-20); Aspartate Amino Transferase 117 U/L (5-37); Bilirubin Total 5.5 mg/dL (0.0-1.0); Blood Urea Nitrogen 9 mg/dL (9-16); Calcium 8.2 mg/dL (8.4-10.2); Carbon Dioxide 25 mmol/L (22-29); Chloride 102 mmol/L (96-108); Creatinine Clr Calc Pharmacy 123.7; Estimated Glomerular Filt Rate > 60; Glucose Random 176 mg/dL (60-115); Potassium 4.1 mmol/L (3.3-5.1); Sodium 137 mmol/L (135-145); Total Protein 5.1 g/dL (6.5-8.0)
[2022-09-13 07:31] VITALS: BP 170/91; PULSE 66; RESP 18; TEMP 36.2; O2SAT 95
[2022-09-13 07:56] LABS: Lipase 13 U/L (8-78)
--- NOTE | 2022-09-13 08:58 | HO.POSTANES ---
Post Anesthesia Evaluation Post Anesthesia Evaluation Vital Signs: Vital Signs Temp Pulse Resp BP Pulse Ox O2 Del Method 09/13/22 07:31 97.1 F 66 18 170/91 H 95 Room Air 09/13/22 03:38 97.6 F 63 17 132/60 95 Room Air Anesthesia: General Endotracheal-GETA Mental Status: Awake Pain Control: Satisfactory Nausea/Vomiting: None Hydration: Adequate Anesthesia-Related Issues: No Anes. Related Issues Comments: Blood pressure being managed by the hospitalist .
[2022-09-13] MEDS: Ranolazine 500 MG TAB.ER.12H 1000 MG PO ×2 (09:28→20:33)
[2022-09-13] MEDS: Aspirin Enteric Coated 81 MG TABLET.DR PO (09:28)
[2022-09-13] MEDS: Isosorbide Mononitrate 30 MG TAB.ER.24H PO (09:28)
[2022-09-13] MEDS: Acetaminophen 325 MG TABLET 650 MG PO ×3 (09:28→20:33)
[2022-09-13] MEDS: Multivitamin TABLET 1 TAB PO (09:29)
[2022-09-13] MEDS: Primidone 50 MG TABLET 250 MG PO ×2 (09:29→20:30)
[2022-09-13] MEDS: Ezetimibe 10 MG TABLET PO (09:29)
[2022-09-13] MEDS: Nicotine 21 MG PATCH.TD24 TRANSDERMA (09:29)
[2022-09-13] MEDS: Pantoprazole Sodium 40 MG/10 ML VIAL IVPUSH (09:30)
--- NOTE | 2022-09-13 09:56 | MHC.CM.PN ---
Addendum entered by Kayli Ying 09/13/22 11:30: Patient S/P stone removal. Started on Clear diet today. Tele discontinued DP Home self care self transport. Original Note: IMM 09/13/22 patient status change OBS to INPT.
[2022-09-13 10:18] VITALS: BMI 27.1
[2022-09-13] MEDS: ondansetron HCL 4 MG/2 ML VIAL IVPUSH (13:42)
--- NOTE | 2022-09-13 14:57 | P.PNIM_ITS ---
Subjective Subjective Date of Service: 09/13/22 Interval History: abd pain Review of Systems still has significant abd pain /soarness only slight improving. no fever or chills Physical Exam Vital Signs: Vital Signs: Last Vital Signs Temp 97.1 F 09/13/22 07:31 Pulse 66 09/13/22 07:31 Resp 18 09/13/22 07:31 BP 170/91 H 09/13/22 07:31 Pulse Ox 95 09/13/22 07:31 O2 Del Method Room Air 09/13/22 07:31 O2 Flow Rate 6 09/12/22 15:03 BMI result Body Mass Index 27.1 Appearance: Alert.? Oriented X3.? abd pain cvs: rrr, [id number] . res: clear to auscultation ,no rhonchii or wheezing abd: no rebound or guarding,still abd soarness , bs present. ext pulses present , no cyanosis . neuro: axo3 , nonfocal. Objective Data Active Medications Acetaminophen (Acetaminophen 325 Mg Tablet) 650 mg PO TID [facility] Last Admin: 09/13/22 09:28 Dose: 650 mg Documented By: LINDA Amlodipine Besylate (Amlodipine Besylate 10 Mg Tablet) 10 mg PO DAILY [facility]; Protocol Aspirin (Aspirin Enteric Coated 81 Mg Tablet.) 81 mg PO DAILY [facility] Last Admin: 09/13/22 09:28 Dose: 81 mg Documented By: LINDA Cyclobenzaprine HCl (Cyclobenzaprine Hcl 10 Mg Tablet) 10 mg PO BID PRN PRN Reason: Muscle Spasm Divalproex Sodium (Divalproex Sodium Er 250 Mg Tab.Er.24h) 250 mg PO BEDTIME [facility] Last Admin: 09/12/22 22:05 Dose: 250 mg Documented By: URI Ezetimibe (Ezetimibe 10 Mg Tablet) 10 mg PO DAILY [facility] Last Admin: 09/13/22 09:29 Dose: 10 mg Documented By: LINDA Hydromorphone HCl (Hydromorphone Hcl 1 Mg/Ml Syringe) 1 mg IVPUSH Q4H PRN; Protocol PRN Reason: Pain, Mild (Pain Scale 1-3) Last Admin: 09/13/22 13:43 Dose: 1 mg Documented By: LINDA Ceftriaxone Sodium 1 gm/ (Sodium Chloride) 50 mls @ 100 mls/hr IV Q24H [facility] Last Infusion: 09/12/22 22:46 Dose: 100 mls/hr Documented By: URI Metronidazole (Flagyl) 500 mg in 100 mls @ 100 mls/hr IV Q8H [facility] Last Admin: 09/13/22 13:42 Dose: 100 mls/hr Documented By: LINDA Lactated Ringer's (Lr) 1,000 mls @ 100 mls/hr IVCONT .Q10H [facility] Last Admin: 09/13/22 01:00 Dose: 100 mls/hr Documented By: ELIANA Isosorbide Mononitrate (Isosorbide Mononitrate 30 Mg Tab.Er.24h) 30 mg PO DAILY [facility]; Protocol Last Admin: 09/13/22 09:28 Dose: 30 mg Documented By: LINDA Levetiracetam (Levetiracetam 500 Mg Tablet) 500 mg PO BID [facility] Last Admin: 09/13/22 09:31 Dose: Not Given Documented By: LINDA Non-Admin Reason: Patient Refused Multivitamins/Vitamin C (Multivitamin Tablet) 1 tab PO DAILY [facility] Last Admin: 09/13/22 09:29 Dose: 1 tab Documented By: LINDA Nicotine (Nicotine 21 Mg Patch.Td24) 21 mg TRANSDERMA DAILY [facility] Last Admin: 09/13/22 09:29 Dose: 21 mg Documented By: LINDA Nitroglycerin (Nitroglycerin 0.4 Mg Tab.Subl) 0.4 mg SUBLINGUAL Q5M PRN PRN Reason: chest pain Ondansetron HCl (Ondansetron Hcl 4 Mg/2 Ml Vial) 4 mg IVPUSH Q8H PRN PRN Reason: Nausea and Vomiting Last Admin: 09/13/22 13:42 Dose: 4 mg Documented By: LINDA Oxycodone HCl (Oxycodone Hcl Immed Release 5 Mg Tablet) 10 mg PO Q5H PRN PRN Reason: Moderate Pain (Scale Score 5-6) Last Admin: 09/11/22 12:59 Dose: 10 mg Documented By: TYREE Pantoprazole Sodium (Pantoprazole Sodium 40 Mg/10 Ml Vial) 40 mg IVPUSH DAILY [facility] Last Admin: 09/13/22 09:30 Dose: 40 mg Documented By: LINDA Pharmacy Consult (Consult Rx Perform Med Rec) 1 each MISCELLANE ONCE PRN PRN Reason: Consult order Primidone (Primidone 50 Mg Tablet) 250 mg PO BID [facility] Last Admin: 09/13/22 09:29 Dose: 250 mg Documented By: LINDA Ranolazine (Ranolazine 500 Mg Tab.Er.12h) 1,000 mg PO BID [facility] Last Admin: 09/13/22 09:28 Dose: 1,000 mg Documented By: LINDA Sodium Chloride (0.9 % Sodium Chloride Flush 3 Ml Syringe) 3 ml IVFLUSH QSHIFT [facility] Last Admin: 09/13/22 09:30 Dose: Not Given Documented By: LINDA Non-Admin Reason: IV Running Labs 09/11/22 05:29 09/13/22 05:50 Labs: Laboratory Results - last 24 hr 09/13/22 05:50 Anion Gap 14 Estim Creat Clear Calc 123.7 Estimated GFR > 60 Random Glucose 176 H Calcium 8.2 L Total Bilirubin 5.5 H AST 117 H ALT 179 H Alkaline Phosphatase 881 H Total Protein 5.1 L Albumin 3.0 L Lipase 13 Assessment and Plan (1) Choledocholithiasis: Status: Acute (2) Elevated liver enzymes: Status: Acute Plan 67-year-old male with a PMH significant for?extensive CAD with numerous cardiac catheterizations, 2 cardiac stents, pacemaker, history of recurrent DVT on Eliquis, small right occipital hemorrhage in 2019, numerous back surgeries chronically on Oxy 10 mg q5 daily, both total knee replacements, hip repla cement, seizure disorder -? Patient came to hospital because of right upper quadrant pain and nausea vomiting. 1. ? Right upper quadrant pain:: ?? Question choledocholithiasis ?CT abdomen and ultrasound reviewed ?lfts ast,alt .alkphos slowly worsening,,bilirubin significant up than yesterday. ? Plan:?iv fluids, pain medication morphine, monitor LFTs, antibiotics , hold Eliquis for now may need ERCP in a.m. s/p ercp yesterday:choledocholithiasis and cholangitis plan: still unable to tolerate diet-added clear liquids to try. ?Hold eliquis for 2 days and can restart Javed morning, Can trend LFT, stop antibiotics upon discharge. 2. ? CAD:Continue aspirin, hold statin due to lft's, continue other cardiac meds 3.hx of DVT: hold eliquis for now. 4. hx of seizure :continue home seizure meds. 5. boderline blood pressure : hold blood pressure meds. dvt prophylax: s/c heparin full code. need for inaptient : possible choledocholithiasis and severe abd pain- need? lft 's moniterin,iv pain meds, unable to tolerate food yet. Time Spent With Patient Time: Total time managing care of this patient today ____ minutes. Quality Stroke Does the patient have a stroke diagnosis?: No VTE Prior VTE?: No VTE Risk Level:: Medical - moderate - high VTE Device Contraindication: N/A - Device Ordered VTE Drug Contraindication: N/A - Med Ordered
[2022-09-13 15:53] VITALS: PULSE 60; RESP 17; TEMP 36.3; O2SAT 97
[2022-09-13 16:03] VITALS: BP 154/79
[2022-09-13 17:04] LABS: Alanine Aminotransferase 193 U/L (0-40); Albumin Level 3.4 g/dL (3.5-5.0); Alkaline Phosphatase 909 U/L (39-117); Aspartate Amino Transferase 120 U/L (5-37); Bilirubin Direct 2.9 mg/dL (0.0-0.5); Bilirubin Total 4.1 mg/dL (0.0-1.0); Total Protein 5.7 g/dL (6.5-8.0)
--- NOTE | 2022-09-13 19:25 | PM.GIPN ---
Subjective Subjective Date of Service: 09/13/22 Interval History: still not a100% back to normal has some pain RUQ urine darker passing gas no nausea looks relaxed Critical Care Time (minutes): 0 Physical Exam Vital Signs: Vital Signs: Last Vital Signs Temp 97.4 F 09/13/22 15:53 Pulse 60 09/13/22 15:53 Resp 17 09/13/22 15:53 BP 154/79 H 09/13/22 16:03 Pulse Ox 97 09/13/22 15:53 O2 Del Method Room Air 09/13/22 15:53 O2 Flow Rate 6 09/12/22 15:03 BMI result Body Mass Index 27.1 EXAM: GENERAL: The patient is well developed and nontoxic. VITAL SIGNS:see workflow HEENT: icteric sclerae, PERRLA, EOMI. Oropharynx clear. Moist mucous membranes. Conjunctivae appear well perfused. No thyroid mass. CHEST: Chest wall is nontender. HEART: Regular rate and rhythm without murmurs. LUNGS: Clear to auscultation bilaterally. ABDOMEN: Soft, positive bowel sounds, tender RUQ, no organomegaly.no flank tenderness SKIN: No rash, no excessive bruising, petechiae, or purpura. NEUROLOGIC: Cranial nerves II-XII intact without motor/sensory deficit. Objective Data Labs 09/11/22 05:29 09/13/22 05:50 Labs: Laboratory Results - last 24 hr 09/13/22 09/13/22 05:50 16:32 Sodium 137 Potassium 4.1 Chloride 102 Carbon Dioxide 25 Anion Gap 14 BUN 9 Creatinine 0.60 Estim Creat Clear Calc 123.7 Estimated GFR > 60 Random Glucose 176 H Calcium 8.2 L Total Bilirubin 5.5 H 4.1 H Direct Bilirubin 2.9 H AST 117 H 120 H ALT 179 H 193 H Alkaline Phosphatase 881 H 909 H Total Protein 5.1 L 5.7 L Albumin 3.0 L 3.4 L Lipase 13 Procedures Date of Service Date of Service: 09/13/22 Progress Note: A&P Assessment and plan (1) Choledocholithiasis: Status: Acute Plan 1/ Choledocholithiasis s/p ERCP, with removal of large amount of sludge and debris, still has some tenderness, he was cleared radiographically wiht no filling defects seen post drainage, but he could still have some retained material. He had a generous sphincterotomy as well PLAN: 1/ cont to advance diet as tolerated and monitor LFT 2/ if improves then nof urther action cango home, if ongoing pain and elevation LFT then repeat ERCP friday with Spyglass, hold eliquis till then Time Spent With Patient Time: Total time managing care of this patient today ____ minutes. Quality Stroke Does the patient have a stroke diagnosis?: No VTE Prior VTE?: No VTE Risk Level:: Medical - moderate - high VTE Device Contraindication: N/A - Device Ordered VTE Drug Contraindication: N/A - Med Ordered
[2022-09-13 20:00] VITALS: BP 155/68; PULSE 60; RESP 16; TEMP 36.3; O2SAT 98
[2022-09-13] MEDS: Divalproex Sodium ER 250 MG TAB.ER.24H PO (20:32)
[2022-09-13] MEDS: levETIRAcetam 500 MG TABLET PO (20:33)
[2022-09-13] MEDS: cefTRIAXone sodium 1 GM in 0.9 % Sodium Chloride 50 ML IV (20:35)
[2022-09-13] MEDS: 0.9 % Sodium Chloride Flush 3 ML SYRINGE IVFLUSH (23:25)
[2022-09-14 03:48] VITALS: BP 158/64; PULSE 60; RESP 16; TEMP 36.4; O2SAT 97
[2022-09-14] MEDS: HYDROmorphone HCl 1 MG/ML SYRINGE IVPUSH ×3 (04:24→21:14)
[2022-09-14] MEDS: metroNIDAZOLE/NS 500 MG/100 ML PIGGYBACK 100 MG IV ×2 (06:05→16:23)
[2022-09-14 06:21] LABS: Alanine Aminotransferase 175 U/L (0-40); Albumin Level 3.5 g/dL (3.5-5.0); Alkaline Phosphatase 856 U/L (39-117); Anion Gap 15 (12-20); Aspartate Amino Transferase 89 U/L (5-37); Bilirubin Direct 1.7 mg/dL (0.0-0.5); Bilirubin Total 2.7 mg/dL (0.0-1.0); Blood Urea Nitrogen 5 mg/dL (9-16); Calcium 8.4 mg/dL (8.4-10.2); Carbon Dioxide 27 mmol/L (22-29); Chloride 102 mmol/L (96-108); Creatinine Clr Calc Pharmacy 132.5; Estimated Glomerular Filt Rate > 60; Glucose Random 108 mg/dL (60-115); Lipase 20 U/L (8-78); Potassium 4.1 mmol/L (3.3-5.1); Sodium 140 mmol/L (135-145); Total Protein 5.9 g/dL (6.5-8.0)
[2022-09-14 07:57] VITALS: BP 138/99; PULSE 62; RESP 16; TEMP 36.3; O2SAT 94
[2022-09-14] MEDS: Isosorbide Mononitrate 30 MG TAB.ER.24H PO (08:51)
[2022-09-14] MEDS: Ezetimibe 10 MG TABLET PO (08:51)
[2022-09-14] MEDS: Pantoprazole Sodium 40 MG/10 ML VIAL IVPUSH (08:51)
[2022-09-14] MEDS: Acetaminophen 325 MG TABLET 650 MG PO ×3 (08:52→21:12)
[2022-09-14] MEDS: Multivitamin TABLET 1 TAB PO (08:52)
[2022-09-14] MEDS: Aspirin Enteric Coated 81 MG TABLET.DR PO (08:52)
[2022-09-14] MEDS: levETIRAcetam 500 MG TABLET PO ×2 (08:52→21:13)
[2022-09-14] MEDS: Nicotine 21 MG PATCH.TD24 TRANSDERMA (08:53)
[2022-09-14] MEDS: Primidone 50 MG TABLET 250 MG PO ×2 (08:53→21:13)
[2022-09-14] MEDS: 0.9 % Sodium Chloride Flush 3 ML SYRINGE IVFLUSH ×3 (08:57→21:14)
[2022-09-14] MEDS: Ranolazine 500 MG TAB.ER.12H 1000 MG PO ×2 (08:57→21:13)
[2022-09-14] MEDS: ondansetron HCL 4 MG/2 ML VIAL IVPUSH (10:39)
--- NOTE | 2022-09-14 10:48 | MHC.CM.PN ---
Addendum entered by Sheba Brothers 09/14/22 13:15: DC CANCELED DUE TO ABDOMINAL PAIN Original Note: PT WILL DC HOME TODAY WITH NO SERVICES
[2022-09-14] MEDS: oxyCODONE HCl Immed Release 5 MG TABLET 10 MG PO ×2 (13:01→18:27)
--- NOTE | 2022-09-14 13:14 | HO.PM.IMPN ---
Subjective Subjective Date of Service: 09/15/22 Interval History: abd pain ,elevated lft's Review of Systems seems signifcant pain after eating-could not able to tolerate po Physical Exam Vital Signs: Vital Signs: Last Vital Signs Temp 97.4 F 09/14/22 07:57 Pulse 62 09/14/22 07:57 Resp 16 09/14/22 07:57 BP 138/99 H 09/14/22 07:57 Pulse Ox 94 09/14/22 07:57 O2 Del Method Room Air 09/14/22 07:57 O2 Flow Rate 6 09/12/22 15:03 BMI result Body Mass Index 27.1 Appearance: Alert.? Oriented X3.? abd pain cvs: rrr, [id number] . res: clear to auscultation ,no rhonchii or wheezing abd: no rebound or guarding,still abd soarness , bs present. ext pulses present , no cyanosis . neuro: axo3 , nonfocal. Objective Data Active Medications Acetaminophen (Acetaminophen 325 Mg Tablet) 650 mg PO TID [facility] Last Admin: 09/14/22 08:52 Dose: 650 mg Documented By: FRANCY Amlodipine Besylate (Amlodipine Besylate 10 Mg Tablet) 10 mg PO DAILY [facility]; Protocol Aspirin (Aspirin Enteric Coated 81 Mg Tablet.) 81 mg PO DAILY [facility] Last Admin: 09/14/22 08:52 Dose: 81 mg Documented By: FRANCY Cyclobenzaprine HCl (Cyclobenzaprine Hcl 10 Mg Tablet) 10 mg PO BID PRN PRN Reason: Muscle Spasm Divalproex Sodium (Divalproex Sodium Er 250 Mg Tab.Er.24h) 250 mg PO BEDTIME [facility] Last Admin: 09/13/22 20:32 Dose: 250 mg Documented By: JARROD Ezetimibe (Ezetimibe 10 Mg Tablet) 10 mg PO DAILY [facility] Last Admin: 09/14/22 08:51 Dose: 10 mg Documented By: FRANCY Hydromorphone HCl (Hydromorphone Hcl 1 Mg/Ml Syringe) 1 mg IVPUSH Q4H PRN; Protocol PRN Reason: Pain, Mild (Pain Scale 1-3) Last Admin: 09/14/22 08:51 Dose: 1 mg Documented By: FRANCY Isosorbide Mononitrate (Isosorbide Mononitrate 30 Mg Tab.Er.24h) 30 mg PO DAILY [facility]; Protocol Last Admin: 09/14/22 08:51 Dose: 30 mg Documented By: FRANCY Levetiracetam (Levetiracetam 500 Mg Tablet) 500 mg PO BID [facility] Last Admin: 09/14/22 08:52 Dose: 500 mg Documented By: FRANCY Multivitamins/Vitamin C (Multivitamin Tablet) 1 tab PO DAILY [facility] Last Admin: 09/14/22 08:52 Dose: 1 tab Documented By: FRANCY Nicotine (Nicotine 21 Mg Patch.Td24) 21 mg TRANSDERMA DAILY [facility] Last Admin: 09/14/22 08:53 Dose: 21 mg Documented By: FRANCY Nitroglycerin (Nitroglycerin 0.4 Mg Tab.Subl) 0.4 mg SUBLINGUAL Q5M PRN PRN Reason: chest pain Ondansetron HCl (Ondansetron Hcl 4 Mg/2 Ml Vial) 4 mg IVPUSH Q8H PRN PRN Reason: Nausea and Vomiting Last Admin: 09/14/22 10:39 Dose: 4 mg Documented By: FRANCY Oxycodone HCl (Oxycodone Hcl Immed Release 5 Mg Tablet) 10 mg PO Q5H PRN PRN Reason: Moderate Pain (Scale Score 5-6) Last Admin: 09/14/22 13:01 Dose: 10 mg Documented By: FRANCY Pharmacy Consult (Consult Rx Perform Med Rec) 1 each MISCELLANE ONCE PRN PRN Reason: Consult order Primidone (Primidone 50 Mg Tablet) 250 mg PO BID [facility] Last Admin: 09/14/22 08:53 Dose: 250 mg Documented By: FRANCY Ranolazine (Ranolazine 500 Mg Tab.Er.12h) 1,000 mg PO BID [facility] Last Admin: 09/14/22 08:57 Dose: 1,000 mg Documented By: FRANCY Sodium Chloride (0.9 % Sodium Chloride Flush 3 Ml Syringe) 3 ml IVFLUSH QSHIFT [facility] Last Admin: 09/14/22 08:57 Dose: 3 ml Documented By: FRANCY Labs 09/11/22 05:29 09/14/22 05:00 Labs: Laboratory Results - last 24 hr 04/07/23 04/08/23 16:32 05:00 Anion Gap 15 Estim Creat Clear Calc 132.5 Estimated GFR > 60 Random Glucose 108 Calcium 8.4 Total Bilirubin 4.1 H 2.7 H Direct Bilirubin 2.9 H 1.7 H AST 120 H 89 H ALT 193 H 175 H Alkaline Phosphatase 909 H 856 H Total Protein 5.7 L 5.9 L Albumin 3.4 L 3.5 Lipase 20 Assessment and Plan (1) Choledocholithiasis: Status: Acute (2) Elevated liver enzymes: Status: Acute Plan 67-year-old male with a PMH significant for?extensive CAD with numerous cardiac catheterizations, 2 cardiac stents, pacemaker, history of recurrent DVT on Eliquis, small right occipital hemorrhage in 2019, numerous back surgeries chronically on Oxy 10 mg q5 daily, both total knee replacements, hip replacement, seizure disorder -? Patient came to hospital because of right upper quadrant pain and nausea vomiting. 1. ? Right upper quadrant pain:: ?? Question choledocholithiasis ?CT abdomen and ultrasound reviewed ?lfts ast,alt .alkphos slowly worsening,,bilirubin significant up than yesterday. ? . s/p ercp yesterday:choledocholithiasis and cholangitis plan: still unable to tolerate diet, still having significant on and off abdominal pain: Discussed with the GI: CT abdomen with p.o. and IV contrast added. Plan:?iv fluids, pain medication morphine, monitor LFTs, antibiotics , hold Eliquis. ?Hold eliquis for 2 days and can restart Friday morning, continue antibiotics for now. 2. ? CAD:Continue aspirin, hold statin due to lft's, continue other cardiac meds 3.hx of DVT: hold eliquis for now. 4. hx of seizure :continue home seizure meds. 5. boderline blood pressure : hold blood pressure meds. dvt prophylax: s/c heparin full code. need for inaptient : possible choledocholithiasis and severe abd pain- need? lft's moniterin,iv pain meds, unable to tolerate food yet. Time Spent With Patient Time: Total time managing care of this patient today ____ minutes. Quality Stroke Does the patient have a stroke diagnosis?: No VTE Prior VTE?: No VTE Risk Level:: Medical - moderate - high VTE Device Contraindication: N/A - Device Ordered VTE Drug Contraindication: N/A - Med Ordered
[2022-09-14 15:06] VITALS: BP 141/78; PULSE 60; RESP 16; TEMP 36.1; O2SAT 95
[2022-09-14] MEDS: Lactated Ringers 1,000 ML 80 ML IVCONT (16:23)
[2022-09-14] MEDS: Diatrizoate Meglumine, Sodium 30 ML SOLUTION PO (17:19)
[2022-09-14] MEDS: iohexoL 350 MG/ML 100 ML INFUS..BTL IV (18:21)
[2022-09-14] MEDS: cefTRIAXone sodium 1 GM in 0.9 % Sodium Chloride 50 ML IV (19:38)
[2022-09-14 19:59] VITALS: BP 171/88; PULSE 60; RESP 16; TEMP 36.6; O2SAT 95
[2022-09-14 20:00] VITALS: BP 158/72
[2022-09-14] MEDS: Divalproex Sodium ER 250 MG TAB.ER.24H PO (21:13)
[2022-09-14] MEDS: traZODone HCL 50 MG TABLET PO (21:13)
[2022-09-14 22:38] LABS: Alanine Aminotransferase 158 U/L (0-40); Albumin Level 3.6 g/dL (3.5-5.0); Alkaline Phosphatase 808 U/L (39-117); Aspartate Amino Transferase 67 U/L (5-37); Bilirubin Direct 1.3 mg/dL (0.0-0.5); Bilirubin Total 2.1 mg/dL (0.0-1.0)
[2022-09-15] MEDS: metroNIDAZOLE/NS 500 MG/100 ML PIGGYBACK 100 MG IV ×3 (00:07→17:42)
[2022-09-15] MEDS: Lactated Ringers 1,000 ML 80 ML IVCONT (03:27)
[2022-09-15 03:40] VITALS: BP 154/76; PULSE 62; RESP 18; TEMP 36.7; O2SAT 93
[2022-09-15] MEDS: oxyCODONE HCl Immed Release 5 MG TABLET 10 MG PO ×2 (05:33→10:32)
[2022-09-15 05:45] LABS: Alanine Aminotransferase 148 U/L (0-40); Albumin Level 3.5 g/dL (3.5-5.0); Alkaline Phosphatase 757 U/L (39-117); Anion Gap 14 (12-20); Aspartate Amino Transferase 66 U/L (5-37); Bilirubin Direct 1.2 mg/dL (0.0-0.5); Blood Urea Nitrogen 9 mg/dL (9-16); Calcium 8.8 mg/dL (8.4-10.2); Carbon Dioxide 28 mmol/L (22-29); Chloride 102 mmol/L (96-108); Creatinine Clr Calc Pharmacy 104.5; Estimated Glomerular Filt Rate > 60; Glucose Random 98 mg/dL (60-115); Lipase 17 U/L (8-78); Potassium 4.5 mmol/L (3.3-5.1); Sodium 139 mmol/L (135-145); Total Protein 5.9 g/dL (6.5-8.0)
[2022-09-15 07:44] VITALS: BP 169/92; PULSE 60; RESP 16; TEMP 36.7; O2SAT 92
[2022-09-15] MEDS: Ezetimibe 10 MG TABLET PO (09:20)
[2022-09-15] MEDS: Isosorbide Mononitrate 30 MG TAB.ER.24H PO (09:20)
[2022-09-15] MEDS: Aspirin Enteric Coated 81 MG TABLET.DR PO (09:21)
[2022-09-15] MEDS: Acetaminophen 325 MG TABLET 650 MG PO ×3 (09:21→22:36)
[2022-09-15] MEDS: levETIRAcetam 500 MG TABLET PO ×2 (09:21→22:37)
[2022-09-15] MEDS: Multivitamin TABLET 1 TAB PO (09:21)
[2022-09-15] MEDS: Ranolazine 500 MG TAB.ER.12H 1000 MG PO ×2 (09:21→22:36)
[2022-09-15] MEDS: Primidone 50 MG TABLET 250 MG PO ×2 (09:21→22:37)
[2022-09-15] MEDS: amLODIPine Besylate 10 MG TABLET PO (09:21)
[2022-09-15] MEDS: 0.9 % Sodium Chloride Flush 3 ML SYRINGE IVFLUSH ×3 (09:22→22:28)
[2022-09-15] MEDS: Nicotine 21 MG PATCH.TD24 TRANSDERMA (09:22)
[2022-09-15] MEDS: ondansetron HCL 4 MG/2 ML VIAL IVPUSH ×2 (09:28→19:39)
[2022-09-15] MEDS: HYDROmorphone HCl 1 MG/ML SYRINGE IVPUSH ×3 (13:36→22:35)
--- NOTE | 2022-09-15 14:19 | HO.PM.IMPN ---
Subjective Subjective Date of Service: 09/16/22 Interval History: abd pain Review of Systems still has significant abd pain /soarness only slight improving. no fever or chills Physical Exam Vital Signs: Vital Signs: Last Vital Signs Temp 98.0 F 09/15/22 07:44 Pulse 60 09/15/22 07:44 Resp 16 09/15/22 07:44 BP 169/92 H 09/15/22 07:44 Pulse Ox 92 09/15/22 07:44 O2 Del Method Room Air 09/15/22 07:44 O2 Flow Rate 6 09/12/22 15:03 BMI result Body Mass Index 27.1 Appearance: Alert.? Oriented X3.? abd pain cvs: rrr, [id number] . res: clear to auscultation ,no rhonchii or wheezing abd: no rebound or guarding,still abd soarness , bs present. ext pulses present , no cyanosis . neuro: axo3 , nonfocal. Objective Data Active Medications Acetaminophen (Acetaminophen 325 Mg Tablet) 650 mg PO TID [facility] Last Admin: 09/15/22 09:21 Dose: 650 mg Documented By: JAHAIRA Amlodipine Besylate (Amlodipine Besylate 10 Mg Tablet) 10 mg PO DAILY [facility]; Protocol Last Admin: 09/15/22 09:21 Dose: 10 mg Documented By: JAHAIRA Aspirin (Aspirin Enteric Coated 81 Mg Tablet.Dr) 81 mg PO DAILY [facility] Last Admin: 09/15/22 09:21 Dose: 81 mg Documented By: JAHAIRA Cyclobenzaprine HCl (Cyclobenzaprine Hcl 10 Mg Tablet) 10 mg PO BID PRN PRN Reason: Muscle Spasm Divalproex Sodium (Divalproex Sodium Er 250 Mg Tab.Er.24h) 250 mg PO BEDTIME [facility] Last Admin: 09/14/22 21:13 Dose: 250 mg Documented By: LICHAORALMabel Ezetimibe (Ezetimibe 10 Mg Tablet) 10 mg PO DAILY [facility] Last Admin: 09/15/22 09:20 Dose: 10 mg Documented By: JAHAIRA Hydromorphone HCl (Hydromorphone Hcl 1 Mg/Ml Syringe) 1 mg IVPUSH Q4H PRN; Protocol PRN Reason: Pain, Mild (Pain Scale 1-3) Last Admin: 09/15/22 13:36 Dose: 1 mg Documented By: JAHAIRA Ceftriaxone Sodium 1 gm/ (Sodium Chloride) 50 mls @ 100 mls/hr IV Q24H [facility] Last Infusion: 09/14/22 20:25 Dose: 0 mls/hr Documented By: MEI Metronidazole (Flagyl) 500 mg in 100 mls @ 100 mls/hr IV Q8H [facility] Last Infusion: 09/15/22 10:46 Dose: 0 mls/hr Documented By: JAHAIRA Isosorbide Mononitrate (Isosorbide Mononitrate 30 Mg Tab.Er.24h) 30 mg PO DAILY [facility]; Protocol Last Admin: 09/15/22 09:20 Dose: 30 mg Documented By: JAHAIRA Levetiracetam (Levetiracetam 500 Mg Tablet) 500 mg PO BID [facility] Last Admin: 09/15/22 09:21 Dose: 500 mg Documented By: JAHAIRA Multivitamins/Vitamin C (Multivitamin Tablet) 1 tab PO DAILY [facility] Last Admin: 09/15/22 09:21 Dose: 1 tab Documented By: JAHAIRA Nicotine (Nicotine 21 Mg Patch.Td24) 21 mg TRANSDERMA DAILY [facility] Last Admin: 09/15/22 09:22 Dose: 21 mg Documented By: JAHAIRA Nitroglycerin (Nitroglycerin 0.4 Mg Tab.Subl) 0.4 mg SUBLINGUAL Q5M PRN PRN Reason: chest pain Ondansetron HCl (Ondansetron Hcl 4 Mg/2 Ml Vial) 4 mg IVPUSH Q8H PRN PRN Reason: Nausea and Vomiting Last Admin: 09/15/22 09:28 Dose: 4 mg Documented By: JAHAIRA Oxycodone HCl (Oxycodone Hcl Immed Release 5 Mg Tablet) 10 mg PO Q5H PRN PRN Reason: Moderate Pain (Scale Score 5-6) Last Admin: 09/15/22 10:32 Dose: 10 mg Documented By: TYREE Pharmacy Consult (Consult Rx Perform Med Rec) 1 each MISCELLANE ONCE PRN PRN Reason: Consult order Primidone (Primidone 50 Mg Tablet) 250 mg PO BID [facility] Last Admin: 09/15/22 09:21 Dose: 250 mg Documented By: JAHAIRA Ranolazine (Ranolazine 500 Mg Tab.Er.12h) 1,000 mg PO BID [facility] Last Admin: 09/15/22 09:21 Dose: 1,000 mg Documented By: JAHAIRA Sodium Chloride (0.9 % Sodium Chloride Flush 3 Ml Syringe) 3 ml IVFLUSH QSHIFT [facility] Last Admin: 09/15/22 09:22 Dose: 3 ml Documented By: JAHAIRA Labs 09/11/22 05:29 09/15/22 05:10 Labs: Laboratory Results - last 24 hr 09/14/22 09/15/22 22:03 05:10 Anion Gap 14 Estim Creat Clear Calc 104.5 Estimated GFR > 60 Random Glucose 98 Calcium 8.8 Total Bilirubin 2.1 H 2.0 H Direct Bilirubin 1.3 H 1.2 H AST 67 H 66 H ALT 158 H 148 H Alkaline Phosphatase 808 H 757 H Total Protein 6.0 L 5.9 L Albumin 3.6 3.5 Lipase 17 Assessment and Plan (1) Elevated liver enzymes: Status: Acute (2) Choledocholithiasis: Status: Acute Plan 67-year-old male with a PMH significant for?extensive CAD with numerous cardiac catheterizations, 2 cardiac stents, pacemaker, history of recurrent DVT on Eliquis, small right occipital hemorrhage in 2019, numerous back surgeries chronically on Oxy 10 mg q5 daily, both total knee replacements, hip replacement, seizure disorder -? Patient came to hospital because of right upper quadrant pain and nausea vomiting. 1. ? Right upper quadrant pain:: ?? Question choledocholithiasis ?CT abdomen and ultrasound reviewed ?lfts ast,alt .alkphos slowly worsening,,bilirubin significant up than yesterday. ? Plan:?iv fluids, pain medication morphine, monitor LFTs, antibiotics , hold Eliquis for now may need ERCP in a.m. s/p ercp yesterday:choledocholithiasis and cholangitis plan: We have tried to give him regular food but patient has lot of pain and could not tolerate- will switch to clear liquid diet ?Hold eliquis for now ,may need ercp repeat in am, Can trend LFT, stop antibiotics upon discharge. 2. ? CAD:Continue aspirin, hold statin due to lft's, continue other cardiac meds 3.hx of DVT: hold eliquis for now ,npo past mignight -may need repeat ercp amber am. 4. hx of seizure :continue home seizure meds. 5. boderline blood pressure : hold blood pressure meds. dvt prophylax: s/c heparin full code. need for inaptient : possible choledocholithiasis and severe abd pain- need? lft's moniterin,iv pain meds, unable to tolerate food yet.? may need repeat ercp in am. Time Spent With Patient Time: Total time managing care of this patient today ____ minutes. Quality Stroke Does the patient have a stroke diagnosis?: No VTE Prior VTE?: No VTE Risk Level:: Medical - moderate - high VTE Device Contraindication: N/A - Device Ordered VTE Drug Contraindication: N/A - Med Ordered
[2022-09-15 15:36] VITALS: BP 113/62; PULSE 74; RESP 18; TEMP 36.6; O2SAT 96
--- NOTE | 2022-09-15 17:49 | PC.NURSE ---
Patient refuse alarms
[2022-09-15 19:35] VITALS: BP 156/80; PULSE 72; RESP 20; TEMP 36.4; O2SAT 96
[2022-09-15] MEDS: cefTRIAXone sodium 1 GM in 0.9 % Sodium Chloride 50 ML IV (22:28)
[2022-09-15] MEDS: Divalproex Sodium ER 250 MG TAB.ER.24H PO (22:37)
[2022-09-16] VITALS (10 sets, daily range): BP systolic 130–167; BP diastolic 74–92; PULSE 60–78; RESP 12–20; TEMP 36.3–36.9; O2SAT 92–99
[2022-09-16] MEDS: metroNIDAZOLE/NS 500 MG/100 ML PIGGYBACK 100 MG IV ×2 (00:23→08:35)
[2022-09-16] MEDS: HYDROmorphone HCl 1 MG/ML SYRINGE IVPUSH ×4 (02:34→23:55)
[2022-09-16 06:50] LABS: Alanine Aminotransferase 124 U/L (0-40); Albumin Level 3.2 g/dL (3.5-5.0); Alkaline Phosphatase 602 U/L (39-117); Anion Gap 14 (12-20); Aspartate Amino Transferase 60 U/L (5-37); Bilirubin Total 1.5 mg/dL (0.0-1.0); Blood Urea Nitrogen 12 mg/dL (9-16); Calcium 8.4 mg/dL (8.4-10.2); Carbon Dioxide 27 mmol/L (22-29); Chloride 102 mmol/L (96-108); Creatinine Clr Calc Pharmacy 114.2; Estimated Glomerular Filt Rate > 60; Glucose Random 101 mg/dL (60-115); Potassium 4.8 mmol/L (3.3-5.1); Sodium 138 mmol/L (135-145); Total Protein 5.5 g/dL (6.5-8.0)
[2022-09-16] MEDS: Lactated Ringers 1,000 ML 80 ML IVCONT (08:33)
[2022-09-16] MEDS: Aspirin Enteric Coated 81 MG TABLET.DR PO (08:36)
[2022-09-16] MEDS: Nicotine 21 MG PATCH.TD24 TRANSDERMA (08:36)
[2022-09-16] MEDS: amLODIPine Besylate 10 MG TABLET PO (08:36)
[2022-09-16] MEDS: Acetaminophen 325 MG TABLET 650 MG PO ×3 (08:36→20:47)
[2022-09-16] MEDS: Ezetimibe 10 MG TABLET PO (08:36)
[2022-09-16] MEDS: Multivitamin TABLET 1 TAB PO (08:37)
[2022-09-16] MEDS: Ranolazine 500 MG TAB.ER.12H 1000 MG PO ×2 (08:37→20:47)
[2022-09-16] MEDS: Primidone 50 MG TABLET 250 MG PO ×2 (08:37→20:46)
[2022-09-16] MEDS: 0.9 % Sodium Chloride Flush 3 ML SYRINGE IVFLUSH ×3 (08:37→20:52)
[2022-09-16] MEDS: levETIRAcetam 500 MG TABLET PO ×2 (08:37→20:48)
[2022-09-16] MEDS: Isosorbide Mononitrate 30 MG TAB.ER.24H PO (08:38)
--- NOTE | 2022-09-16 08:39 | PM.GIPN ---
Subjective Subjective Date of Service: 09/16/22 Interval History: conts to c/o post prandial upper abdominal pain, no nausea, urine is normal color LFT have trended down, lipase neg and Ct imaging also neg for acute pathology Critical Care Time (minutes): 0 Physical Exam Vital Signs: Vital Signs: Last Vital Signs Temp 97.4 F 09/16/22 07:47 Pulse 61 09/16/22 07:47 Resp 18 09/16/22 07:47 BP 161/79 H 09/16/22 07:47 Pulse Ox 97 09/16/22 07:47 O2 Del Method Room Air 09/16/22 07:47 O2 Flow Rate 6 09/12/22 15:03 BMI result Body Mass Index 27.1 EXAM: GENERAL: The patient is well developed and nontoxic. VITAL SIGNS:see workflow HEENT: Nonicteric sclerae, PERRLA, EOMI. Oropharynx clear. Moist mucous membranes. Conjunctivae appear well perfused. No thyroid mass. CHEST: Chest wall is nontender. HEART: Regular rate and rhythm without murmurs. LUNGS: talking easily, no accessory mus use, no wheeze ABDOMEN: Soft, positive bowel sounds, nontender, no organomegaly.no flank tenderness SKIN: No rash, no excessive bruising, petechiae, or purpura. NEUROLOGIC: Cranial nerves II-XII intact without motor/sensory deficit. Psych: Appearance: grossly normal Objective Data Labs 09/11/22 05:29 09/16/22 05:24 Labs: Laboratory Results - last 24 hr 09/16/22 05:24 Sodium 138 Potassium 4.8 Chloride 102 Carbon Dioxide 27 Anion Gap 14 BUN 12 Creatinine 0.65 Estim Creat Clear Calc 114.2 Estimated GFR > 60 Random Glucose 101 Calcium 8.4 Total Bilirubin 1.5 H AST 60 H ALT 124 H Alkaline Phosphatase 602 H Total Protein 5.5 L Albumin 3.2 L Procedures Date of Service Date of Service: 09/16/22 Progress Note: A&P Assessment and plan (1) Elevated liver enzymes: Status: Acute (2) Choledocholithiasis: Status: Acute (3) Upper abdominal pain: Status: Acute Plan 1/ Ongoing post prandial pain similar to when he came to the hospital, imaging and labs are improved and lipase neg for pancreatitis as is imaging. There is a small possibility of retained stone or material in CBD which maybe causing his pain. DDX: PUD, gastritis, less likely ischemia. His physical exam is improved and there is no focal tenderness. PLAN: 1/ Repeat ERCP today with spyglass for direct visuals of CBD 2/ Will do dedicated EGD at same time to r/o out upper GI path Time Spent With Patient Time: Total time managing care of this patient today ____ minutes. Quality Stroke Does the patient have a stroke diagnosis?: No VTE Prior VTE?: No VTE Risk Level:: Medical - moderate - high VTE Device Contraindication: N/A - Device Ordered VTE Drug Contraindication: N/A - Med Ordered
--- NOTE | 2022-09-16 08:45 | MHC.SHP ---
Pre-Procedural Eval Section A Date of Service: 09/16/22 The patient is an INPATIENT: Yes The History & Physical has been completed within 30 days and I have reviewed it.: Yes Section B Chief Complaint: Abdominal Pain: Choledocholithiasis Allergies: Allergies Allergy/AdvReac Type Severity Reaction Status Date / Time bee pollen [BEE STINGS] Allergy Severe ANAPHYLAXIS Verified 09/12/22 12:28 indomethacin [Indocin] Allergy Severe anaphylaxis Verified 09/12/22 12:28 tramadol [Ultram] Allergy Severe anaphylaxis Verified 09/12/22 12:28 Plan Diagnosis/Plan: Unchanged I have reviewed the history and physical and performed a pertinent physical examination on my patient. No changes have occurred unless specified. EGD and ERCP with spyglass Time Spent With Patient Time: Total time managing care of this patient today ____ minutes.
--- NOTE | 2022-09-16 11:14 | P.CONAN_ITS ---
HPI - Anesthesia Eval Consult details Narrative: ERCP PMFSH Active Problems Active Problems: All Active Problems (Updated 09/16/22 @ 08:44 by Nathalia Garza MD) Upper abdominal pain (Acute) Elevated liver enzymes (Acute) Choledocholithiasis (Acute) PAF (paroxysmal atrial fibrillation) (Acute) Choking episode (Acute) Elevated lactic acid level (Acute) Altered mental status (Acute) Hypoxia (Acute) Aspiration pneumonitis (Acute) Pacemaker lead malfunction (Acute) Atrial flutter (Acute) Internal derangement of right shoulder (Acute) Osteoarthritis of right shoulder (Acute) CAD (coronary artery disease) (Acute) Sick sinus syndrome (Acute) Pacemaker (Acute ~05/2013) PAD (peripheral artery disease) (Acute) DVT (deep venous thrombosis) (Chronic) On anticoagulant therapy (Acute) Cerebral calcification (Acute) Personal history of nicotine dependence (Acute) Achilles tendonitis (Acute) GERD (gastroesophageal reflux disease) (Acute) Past Medical History Medical History Atherosclerotic cardiovascular disease Brain bleed Brain lesion CAD (coronary artery disease) COVID-19 vaccine administered DVT (deep venous thrombosis) Esophagitis Essential hypertension GERD (gastroesophageal reflux disease) Headache History of chemotherapy Myocardial infarction Obstructive sleep apnea (~2018) On anticoagulant therapy Pacemaker (~05/2013) Personal history of nicotine dependence Psychotic disorder Seizures (~04/2020) Syncope Tremor Tubular adenoma of colon Family History Family History Father Heavy cigarette smoker Throat cancer Mother Heart disease Family history of problems with anesthesia: No Surgical History Surgical History History of appendectomy History of cardiac catheterization History of cholecystectomy History of colonoscopy (~09/2020) History of esophagogastroduodenoscopy (EGD) (~09/2020) History of permanent cardiac pacemaker placement (~05/2013) History of right knee surgery (~12/2013) History of spinal surgery History of total right hip replacement (~06/2012) Stented coronary artery History of Problems with Anesthesia: No Social History Social History Household Members: None Household Members Other:: shares house with a friend Housing: House Are you a primary manager critical care unit to a significant other at home: No Do you presently have visiting nurse or other home services: No Alcohol intake: former Patient Tobacco Use Status: Current everyday Tobacco user Tobacco use type: Cigarette Cigarette Packs Per Day: 0.5 Cigarettes Per Day: 10.0 Years Smoked: 8 Smoked in Last 30 Days: Yes e-Cigarette/Vaping Use: Never Used Patient Interested in Nicotine Replacement: Yes Patient Given Instructions on How to Stop Smoking: No (pt no desire to quitting) Second Hand Smoke Exposure: No Use of substances other than those prescribed or required for medical reasons: No Currently Displaying Signs/Symptoms of Drug Intoxication Withdrawal: No Any prior treatment program specific to substance use: No Have you been hit, kicked, punched, or otherwise hurt by someone within the past year? If so, by whom?: No Do you feel safe in your current relationship?: Yes Is there a partner from a previous relationship who is making you feel unsafe now?: No Are you made to feel afraid or neglected: No Are you DNR?: No Advance Directives: Yes Advance Directives on File: Yes Advance Directives Date on File: 12/16/20 Do you have thoughts of harming others: None Do you have a plan to hurt others: No Plan Recently lost weight without trying: Yes How much weight loss: 14-23 pounds Eating poorly because of decreased appetite: Yes Nutrition screen score: 5 Nutrition Risks: Poor intake 0-25% >4 days Poor oral hygiene: No service: No Current occupational status: employed and retired Meds Allergies Allergy/AdvReac Type Severity Reaction Status Date / Time bee pollen [BEE STINGS] Allergy Severe ANAPHYLAXIS Verified 09/12/22 12:28 indomethacin [Indocin] Allergy Severe anaphylaxis Verified 09/12/22 12:28 tramadol [Ultram] Allergy Severe anaphylaxis Verified 09/12/22 12:28 Active Medications: Current Medications Acetaminophen (Acetaminophen 325 Mg Tablet) 650 mg PO TID [facility] Last Admin: 09/16/22 08:36 Dose: 650 mg Amlodipine Besylate (Amlodipine Besylate 10 Mg Tablet) 10 mg PO DAILY [facility]; Protocol Last Admin: 09/16/22 08:36 Dose: 10 mg Aspirin (Aspirin Enteric Coated 81 Mg Tablet.) 81 mg PO DAILY [facility] Last Admin: 09/16/22 08:36 Dose: 81 mg Cyclobenzaprine HCl (Cyclobenzaprine Hcl 10 Mg Tablet) 10 mg PO BID PRN PRN Reason: Muscle Spasm Divalproex Sodium (Divalproex Sodium Er 250 Mg Tab.Er.24h) 250 mg PO BEDTIME [facility] Last Admin: 09/15/22 22:37 Dose: 250 mg Ezetimibe (Ezetimibe 10 Mg Tablet) 10 mg PO DAILY [facility] Last Admin: 09/16/22 08:36 Dose: 10 mg Ceftriaxone Sodium 1 gm/ (Sodium Chloride) 50 mls @ 100 mls/hr IV Q24H [facility] Last Infusion: 09/15/22 23:22 Dose: Infused Metronidazole (Flagyl) 500 mg in 100 mls @ 100 mls/hr IV Q8H [facility] Last Infusion: 09/16/22 10:02 Dose: Infused Lactated Ringer's (Lr) 1,000 mls @ 80 mls/hr IVCONT .[id number] [facility] Last Admin: 09/16/22 08:33 Dose: 80 mls/hr Isosorbide Mononitrate (Isosorbide Mononitrate 30 Mg Tab.Er.24h) 30 mg PO DAILY [facility]; Protocol Last Admin: 09/16/22 08:38 Dose: 30 mg Levetiracetam (Levetiracetam 500 Mg Tablet) 500 mg PO BID [facility] Last Admin: 09/16/22 08:37 Dose: 500 mg Multivitamins/Vitamin C (Multivitamin Tablet) 1 tab PO DAILY [facility] Last Admin: 09/16/22 08:37 Dose: 1 tab Nicotine (Nicotine 21 Mg Patch.Td24) 21 mg TRANSDERMA DAILY [facility] Last Admin: 09/16/22 08:36 Dose: 21 mg Nitroglycerin (Nitroglycerin 0.4 Mg Tab.Subl) 0.4 mg SUBLINGUAL Q5M PRN PRN Reason: chest pain Ondansetron HCl (Ondansetron Hcl 4 Mg/2 Ml Vial) 4 mg IVPUSH Q8H PRN PRN Reason: Nausea and Vomiting Last Admin: 09/15/22 19:39 Dose: 4 mg Pharmacy Consult (Consult Rx Perform Med Rec) 1 each MISCELLANE ONCE PRN PRN Reason: Consult order Primidone (Primidone 50 Mg Tablet) 250 mg PO BID [facility] Last Admin: 09/16/22 08:37 Dose: 250 mg Ranolazine (Ranolazine 500 Mg Tab.Er.12h) 1,000 mg PO BID [facility] Last Admin: 09/16/22 08:37 Dose: 1,000 mg Sodium Chloride (0.9 % Sodium Chloride Flush 3 Ml Syringe) 3 ml IVFLUSH QSHIFT [facility] Last Admin: 09/16/22 08:37 Dose: 3 ml Home Medications Medication Instructions Recorded Confirmed Last Taken Type amlodipine 10 mg tablet (Norvasc) 10 mg PO DAILY 04/25/20 09/10/22 06/19/21 History aspirin 81 mg tablet,delayed 81 mg PO DAILY 04/25/20 09/10/22 06/19/21 History release (Adult Low Dose Aspirin) rosuvastatin 40 mg tablet (Crestor) 40 mg PO BEDTIME chloestrol 04/25/20 09/10/22 06/18/21 History oxycodone 10 mg tablet 10 mg PO Q5H PRN Moderate Pain 04/26/20 09/10/22 06/19/21 History (Scale Score 5-6) divalproex 250 mg tablet,extended 250 mg PO BEDTIME 09/08/20 09/10/22 06/18/21 History release 24 hr (Depakote ER) ezetimibe 10 mg tablet (Zetia) 10 mg PO DAILY 10/24/20 09/10/22 06/19/21 History lisinopril 10 mg tablet (Zestril) 10 mg PO DAILY 10/24/20 09/10/22 06/19/21 History multivitamin (Daily Vitamin 1 tab PO DAILY 10/24/20 09/10/22 06/19/21 History Formula tablet) pantoprazole 40 mg tablet,delayed 40 mg PO DAILY@0630 10/24/20 09/10/22 06/19/21 History release (Protonix) apixaban 5 mg tablet (Eliquis) 5 mg PO BID 01/08/21 09/12/22 09/08/22 History levetiracetam 500 mg tablet 500 mg PO BID 06/19/21 09/11/22 06/19/21 History (Keppra) nitroglycerin 0.4 mg sublingual 0.4 mg sublingual Q5M PRN chest 11/29/21 09/10/22 Unknown History tablet (Nitrostat) pain primidone 250 mg tablet 250 mg PO BID 03/05/22 09/11/22 Unknown History cyclobenzaprine 10 mg tablet 1 tab PO BID PRN Muscle Spasm 06/13/22 09/10/22 Unknown History isosorbide mononitrate 30 mg 30 mg PO DAILY 09/10/22 09/10/22 Unknown History tablet,extended release 24 hr ranolazine 1,000 mg 1,000 mg PO BID 09/10/22 09/10/22 Unknown History tablet,extended release,12 hr Exam Exam Date and Time: September 16, 2022 1114 Height,Weight and Vital Signs: Height 5 ft 11 in Weight 88.2 kg Last Vital Signs Temp 97.4 F 09/16/22 07:47 Pulse 61 09/16/22 07:47 Resp 18 09/16/22 07:47 BP 161/79 H 09/16/22 07:47 Pulse Ox 97 09/16/22 07:47 O2 Del Method Room Air 09/16/22 07:47 O2 Flow Rate 6 09/12/22 15:03 Pertinent Lab Results Pertinent Lab Results: Laboratory Tests 09/10/22 09/10/22 09/10/22 13:09 13:09 13:09 WBC 8.5 RBC 4.38 L Hgb 13.2 L Hct 40.2 L MCV 91.8 MCH 30.1 MCHC 32.8 RDW 13.6 Plt Count 394 D MPV 8.7 L Immature Gran % (Auto) 0.7 H Neut % (Auto) 63.0 Lymph % (Auto) 22.4 [place] % (Auto) 8.5 Eos % (Auto) 4.6 H Baso % (Auto) 0.8 Lymph # (Auto) 1.9 [place] # (Auto) 0.7 Eos # (Auto) 0.4 Baso # (Auto) 0.1 Abs Immat Gran (auto) 0.06 H Absolute Neuts (auto) 5.4 Absolute Nucleated RBC 0.000 Nucleated RBC % (auto) 0.0 PT INR APTT Sodium 137 Potassium 4.8 Chloride 100 Carbon Dioxide 27 Anion Gap 15 BUN 14 Creatinine 0.76 Estim Creat Clear Calc 97.7 Estimated GFR > 60 Random Glucose 146 H Calcium 8.9 Magnesium 2.2 Total Bilirubin 0.9 Direct Bilirubin AST 57 H ALT 174 H Alkaline Phosphatase 826 H Troponin I High Sens Total Protein 6.4 L Albumin 3.7 Triglycerides 181 Lipase 21 Urine Color Urine Appearance Urine pH Ur Specific [place] Urine Protein Urine Glucose (UA) Urine Ketones Urine Blood Urine Nitrite Ur Leukocyte Esterase COVID-19 (DOMENICO) Negative COVID-19 [facility] See Note Blood Type Antibody Screen 09/10/22 09/10/22 09/10/22 16:43 18:23 18:23 WBC RBC Hgb Hct MCV MCH MCHC RDW Plt Count MPV Immature Gran % (Auto) Neut % (Auto) Lymph % (Auto) [place] % (Auto) Eos % (Auto) Baso % (Auto) Lymph # (Auto) [place] # (Auto) Eos # (Auto) Baso # (Auto) Abs Immat Gran (auto) Absolute Neuts (auto) Absolute Nucleated RBC Nucleated RBC % (auto) PT INR APTT Sodium Potassium Chloride Carbon Dioxide Anion Gap BUN Creatinine Estim Creat Clear Calc Estimated GFR Random Glucose Calcium Magnesium Total Bilirubin Direct Bilirubin AST ALT Alkaline Phosphatase Troponin I High Sens < 2.7 D Total Protein Albumin Triglycerides Lipase Urine Color Dark Yellow Urine Appearance Clear Urine pH 6.5 Ur Specific [place] >= 1.030 H Urine Protein Negative Urine Glucose (UA) Negative Urine Ketones Negative Urine Blood Negative Urine Nitrite Negative Ur Leukocyte Esterase Negative COVID-19 (DOMENICO) COVID-19 [facility] Blood Type O Positive Antibody Screen NEGATIVE 09/10/22 09/11/22 09/11/22 19:35 05:29 05:29 WBC 9.1 RBC 4.09 L Hgb 12.5 L Hct 37.7 L MCV 92.2 MCH 30.6 MCHC 33.2 RDW 13.6 Plt Count 297 MPV 9.3 L Immature Gran % (Auto) Neut % (Auto) Lymph % (Auto) [place] % (Auto) Eos % (Auto) Baso % (Auto) Lymph # (Auto) [place] # (Auto) Eos # (Auto) Baso # (Auto) Abs Immat Gran (auto) Absolute Neuts (auto) Absolute Nucleated RBC 0.000 Nucleated RBC % (auto) 0.0 PT 11.0 INR 1.0 APTT 37.7 H Sodium 140 Potassium 4.8 Chloride 104 Carbon Dioxide 25 Anion Gap 16 BUN 9 Creatinine 0.63 Estim Creat Clear Calc 117.8 Estimated GFR > 60 Random Glucose 83 Calcium 8.5 Magnesium Total Bilirubin 1.6 H Direct Bilirubin AST 125 H ALT 180 H Alkaline Phosphatase 812 H Troponin I High Sens Total Protein 5.5 L Albumin 3.2 L Triglycerides Lipase 13 Urine Color Urine Appearance Urine pH Ur Specific [place] Urine Protein Urine Glucose (UA) Urine Ketones Urine Blood Urine Nitrite Ur Leukocyte Esterase COVID-19 (DOMEINCO) COVID-19 [facility] Blood Type Antibody Screen 09/12/22 09/13/22 09/13/22 05:25 05:50 16:32 WBC RBC Hgb Hct MCV MCH MCHC RDW Plt Count MPV Immature Gran % (Auto) Neut % (Auto) Lymph % (Auto) [place] % (Auto) Eos % (Auto) Baso % (Auto) Lymph # (Auto) [place] # (Auto) Eos # (Auto) Baso # (Auto) Abs Immat Gran (auto) Absolute Neuts (auto) Absolute Nucleated RBC Nucleated RBC % (auto) PT INR APTT Sodium 138 137 Potassium 4.4 4.1 Chloride 101 102 Carbon Dioxide 26 25 Anion Gap 15 14 BUN 6 L 9 Creatinine 0.60 0.60 Estim Creat Clear Calc 123.7 123.7 Estimated GFR > 60 > 60 Random Glucose 110 176 H Calcium 8.5 8.2 L Magnesium Total Bilirubin 6.3 H 5.5 H 4.1 H Direct Bilirubin 2.9 H AST 136 H 117 H 120 H ALT 205 H 179 H 193 H Alkaline Phosphatase 945 H 881 H 909 H Troponin I High Sens Total Protein 5.8 L 5.1 L 5.7 L Albumin 3.3 L 3.0 L 3.4 L Triglycerides Lipase 77 13 Urine Color Urine Appearance Urine pH Ur Specific [place] Urine Protein Urine Glucose (UA) Urine Ketones Urine Blood Urine Nitrite Ur Leukocyte Esterase COVID-19 (DOMNEICO) COVID-19 [facility] Blood Type Antibody Screen 09/14/22 09/14/22 09/15/22 05:00 22:03 05:10 WBC RBC Hgb Hct MCV MCH MCHC RDW Plt Count MPV Immature Gran % (Auto) Neut % (Auto) Lymph % (Auto) [place] % (Auto) Eos % (Auto) Baso % (Auto) Lymph # (Auto) [place] # (Auto) Eos # (Auto) Baso # (Auto) Abs Immat Gran (auto) Absolute Neuts (auto) Absolute Nucleated RBC Nucleated RBC % (auto) PT INR APTT Sodium 140 139 Potassium 4.1 4.5 Chloride 102 102 Carbon Dioxide 27 28 Anion Gap 15 14 BUN 5 L 9 Creatinine 0.56 0.71 Estim Creat Clear Calc 132.5 104.5 Estimated GFR > 60 > 60 Random Glucose 108 98 Calcium 8.4 8.8 Magnesium Total Bilirubin 2.7 H 2.1 H 2.0 H Direct Bilirubin 1.7 H 1.3 H 1.2 H AST 89 H 67 H 66 H ALT 175 H 158 H 148 H Alkaline Phosphatase 856 H 808 H 757 H Troponin I High Sens Total Protein 5.9 L 6.0 L 5.9 L Albumin 3.5 3.6 3.5 Triglycerides Lipase 20 17 Urine Color Urine Appearance Urine pH Ur Specific [place] Urine Protein Urine Glucose (UA) Urine Ketones Urine Blood Urine Nitrite Ur Leukocyte Esterase COVID-19 (DOMENICO) COVID-19 [id number] Blood Type Antibody Screen 09/16/22 05:24 WBC RBC Hgb Hct MCV MCH MCHC RDW Plt Count MPV Immature Gran % (Auto) Neut % (Auto) Lymph % (Auto) [place] % (Auto) Eos % (Auto) Baso % (Auto) Lymph # (Auto) [place] # (Auto) Eos # (Auto) Baso # (Auto) Abs Immat Gran (auto) Absolute Neuts (auto) Absolute Nucleated RBC Nucleated RBC % (auto) PT INR APTT Sodium 138 Potassium 4.8 Chloride 102 Carbon Dioxide 27 Anion Gap 14 BUN 12 Creatinine 0.65 Estim Creat Clear Calc 114.2 Estimated GFR > 60 Random Glucose 101 Calcium 8.4 Magnesium Total Bilirubin 1.5 H Direct Bilirubin AST 60 H ALT 124 H Alkaline Phosphatase 602 H Troponin I High Sens Total Protein 5.5 L Albumin 3.2 L Triglycerides Lipase Urine Color Urine Appearance Urine pH Ur Specific [place] Urine Protein Urine Glucose (UA) Urine Ketones Urine Blood Urine Nitrite Ur Leukocyte Esterase COVID-19 (DOMENICO) COVID-19 [facility] Blood Type Antibody Screen Airway Mallampati Class: II TM Dist: >3cm Neck ROM: Full Heart: rrr Lungs: cta Assessment and Plan Assessment Anesthesia Assessment: Anesthesia Plan Discussed and Chart Reviewed Final Anesthetic Review Family History of Problems with Anesthesia: No History of Problems with Anesthesia: No NPO: Yes ASA Class: IV Final Preanesthetic Review: No Changes in Pt Med Stat, Meds/Allgs Chart Reviewed, Consent Obtained/Reviewed and Anes Risks/Benef Reviewed Patient Risk: High Procedure Risk: Intermediate Anesthetic Plan Anesthetic Plan: GA and Agree w/ Assess. and Plan Disposition: Standard PACU
--- NOTE | 2022-09-16 11:31 | HO.PM.IMPN ---
Subjective Subjective Date of Service: 09/16/22 Interval History: abd pain Review of Systems still has significant abd pain /soarness similar to yesterday. no fever or chills Physical Exam Vital Signs: Vital Signs: Last Vital Signs Temp 97.4 F 09/16/22 07:47 Pulse 61 09/16/22 07:47 Resp 18 09/16/22 07:47 BP 161/79 H 09/16/22 07:47 Pulse Ox 97 09/16/22 07:47 O2 Del Method Room Air 09/16/22 07:47 O2 Flow Rate 6 09/12/22 15:03 BMI result Body Mass Index 27.1 Appearance: Alert.? Oriented X3.? abd pain cvs: rrr, [id number] . res: clear to auscultation ,no rhonchii or wheezing abd: no rebound or guarding,still abd soarness , bs present. ext pulses present , no cyanosis . neuro: axo3 , nonfocal. Objective Data Active Medications Acetaminophen (Acetaminophen 325 Mg Tablet) 650 mg PO TID [facility] Last Admin: 09/16/22 08:36 Dose: 650 mg Documented By: NOLAN Amlodipine Besylate (Amlodipine Besylate 10 Mg Tablet) 10 mg PO DAILY [facility]; Protocol Last Admin: 09/16/22 08:36 Dose: 10 mg Documented By: NOLAN Aspirin (Aspirin Enteric Coated 81 Mg Tablet.) 81 mg PO DAILY [facility] Last Admin: 09/16/22 08:36 Dose: 81 mg Documented By: NOLAN Cyclobenzaprine HCl (Cyclobenzaprine Hcl 10 Mg Tablet) 10 mg PO BID PRN PRN Reason: Muscle Spasm Divalproex Sodium (Divalproex Sodium Er 250 Mg Tab.Er.24h) 250 mg PO BEDTIME [facility] Last Admin: 09/15/22 22:37 Dose: 250 mg Documented By: MALIK Ezetimibe (Ezetimibe 10 Mg Tablet) 10 mg PO DAILY [facility] Last Admin: 09/16/22 08:36 Dose: 10 mg Documented By: NOLAN Hydromorphone HCl (Hydromorphone Hcl 1 Mg/Ml Syringe) 1 mg IVPUSH Q4H PRN; Protocol PRN Reason: Pain, Mild (Pain Scale 1-3) Ceftriaxone Sodium 1 gm/ (Sodium Chloride) 50 mls @ 100 mls/hr IV Q24H [facility] Last Infusion: 09/15/22 23:22 Dose: 0 mls/hr Documented By: MALIK Metronidazole (Flagyl) 500 mg in 100 mls @ 100 mls/hr IV Q8H [facility] Last Infusion: 09/16/22 10:02 Dose: 0 mls/hr Documented By: NOLAN Lactated Ringer's (Lr) 1,000 mls @ 80 mls/hr IVCONT .[id number] [facility] Last Admin: 09/16/22 08:33 Dose: 80 mls/hr Documented By: NOLAN Isosorbide Mononitrate (Isosorbide Mononitrate 30 Mg Tab.Er.24h) 30 mg PO DAILY [facility]; Protocol Last Admin: 09/16/22 08:38 Dose: 30 mg Documented By: NOLAN Levetiracetam (Levetiracetam 500 Mg Tablet) 500 mg PO BID [facility] Last Admin: 09/16/22 08:37 Dose: 500 mg Documented By: NOLAN Multivitamins/Vitamin C (Multivitamin Tablet) 1 tab PO DAILY [facility] Last Admin: 09/16/22 08:37 Dose: 1 tab Documented By: NOLAN Nicotine (Nicotine 21 Mg Patch.Td24) 21 mg TRANSDERMA DAILY [facility] Last Admin: 09/16/22 08:36 Dose: 21 mg Documented By: NOLAN Nitroglycerin (Nitroglycerin 0.4 Mg Tab.Subl) 0.4 mg SUBLINGUAL Q5M PRN PRN Reason: chest pain Ondansetron HCl (Ondansetron Hcl 4 Mg/2 Ml Vial) 4 mg IVPUSH Q8H PRN PRN Reason: Nausea and Vomiting Last Admin: 09/15/22 19:39 Dose: 4 mg Documented By: MALIK Pharmacy Consult (Consult Rx Perform Med Rec) 1 each MISCELLANE ONCE PRN PRN Reason: Consult order Primidone (Primidone 50 Mg Tablet) 250 mg PO BID [facility] Last Admin: 09/16/22 08:37 Dose: 250 mg Documented By: NOLAN Ranolazine (Ranolazine 500 Mg Tab.Er.12h) 1,000 mg PO BID [facility] Last Admin: 09/16/22 08:37 Dose: 1,000 mg Documented By: NOLAN Sodium Chloride (0.9 % Sodium Chloride Flush 3 Ml Syringe) 3 ml IVFLUSH QSHIFT [facility] Last Admin: 09/16/22 08:37 Dose: 3 ml Documented By: NOLAN Labs 09/11/22 05:29 09/16/22 05:24 Labs: Laboratory Results - last 24 hr 09/16/22 05:24 Anion Gap 14 Estim Creat Clear Calc 114.2 Estimated GFR > 60 Random Glucose 101 Calcium 8.4 Total Bilirubin 1.5 H AST 60 H ALT 124 H Alkaline Phosphatase 602 H Total Protein 5.5 L Albumin 3.2 L Assessment and Plan (1) Elevated liver enzymes: Status: Acute (2) Choledocholithiasis: Status: Acute Plan 67-year-old male with a PMH significant for?extensive CAD with numerous cardiac catheterizations, 2 cardiac stents, pacemaker, history of recurrent DVT on Eliquis, small right occipital hemorrhage in 2019, numerous back surgeries chronically on Oxy 10 mg q5 daily, both total knee replacements, hip replacement, seizure disorder -? Patient came to hospital because of right upper quadrant pain and nausea vomiting. 1. ? Right upper quadrant pain:: ?? Question choledocholithiasis ?CT abdomen and ultrasound reviewed ?lfts ast,alt .alkphos slowly worsening,,bilirubin significant up than yesterday. ? Plan:?iv fluids, pain medication morphine, monitor LFTs, antibiotics , hold Eliquis for now may need ERCP in a.m. s/p ercp yesterday:choledocholithiasis and cholangitis plan: We have tried to give him regular food but patient has lot of pain and could not tolerate- will switch to clear liquid diet egd today showed -duodenitis/gastritis d/w gi-Continue PPI, added Carafate,Hold eliquis until tomorrow , stop antibiotics. 2. ? CAD:Continue aspirin, hold statin due to lft's, continue other cardiac meds 3.hx of DVT: hold eliquis for now ,npo past mignight -may need repeat ercp amber am. 4. hx of seizure :continue home seizure meds. 5. boderline blood pressure : hold blood pressure meds. dvt prophylax: s/c heparin full code. need for inaptient : possible choledocholithiasis and severe abd pain- need? lft's moniterin,iv pain meds, unable to tolerate food yet.? may need repeat egd vs ercp in am. patient is drowsy post procedure,also did not tolerate diet yet -will continue to moniter today Time Spent With Patient Time: Total time managing care of this patient today ____ minutes. Quality Stroke Does the patient have a stroke diagnosis?: No VTE Prior VTE?: No VTE Risk Level:: Medical - moderate - high VTE Device Contraindication: N/A - Device Ordered VTE Drug Contraindication: N/A - Med Ordered
--- NOTE | 2022-09-16 12:45 | MHC.CLN ---
NUTRITION PATIENT WITH POST PRANDIAL ABDOMINAL PAIN.CURRENTLY NPO FOR ERCP. DIET ADVANCED 09/14 AND 09/15 TO CARDIAC DIET. ATE WELL AT MEALS LIMITED INTAKE X 4 DAYS PRIOR TO DIET ADVANCEMENT. FOLLOW FOR DIET ADVANCEMENT/DIET TOLERANCE.
--- NOTE | 2022-09-16 14:06 | W.PM.OPN ---
Operative Note Operative Note Date of Service: 09/16/22 Narrative: Description: Endoscopic retrograde cholangiopancreatography (ERCP) and upper endoscopy PROCEDURE: Endoscopic retrograde cholangiopancreatography with balloon sweep and dilation of ampulla, cholangiogram, spyglass cholangioscopy and upper endoscopy with biopsy INDICATION FOR THE PROCEDURE: Patient with a history of persistent post prandial abdominal pain after ERCP last week with removal of sludge and debris MEDICATIONS: General anesthesia, The risks of the procedure were made aware to the patient and consisted of medication reaction, bleeding, perforation, aspiration, and post ERCP pancreatitis. DESCRIPTION OF PROCEDURE: After informed consent and appropriate sedation, the upper endoscope was inserted. THe stomach was noted to have streaky erythema and patchy scarring, so biospies were taken. There was moderate bulbar duodenitis with edema and erythema. The esophagus looked normal. The upper endoscope was withdrawn and then the duodenoscope was inserted into the oropharynx, down the esophagus, and into the stomach. The scope was then advanced through the pylorus to the ampulla. There appeared to be free flow of normal appearing bile from the duct. an extraction balloon was then inflated and an occlusion cholangiogram taken without any apparent filling defect seen. The duct was sweeped without any debris noted. The ampulla was then dilated using hurricaine balloon which improved drainage. A spyglass was then inserted. The cholangioscope was passed to the common hepatic duct and no stones, debris, strictures or masses were seen. The view was excellent. There was some minor oozing which had ceased by the end of the procedure. The stomach was then decompressed and the endoscope was withdrawn. FINDINGS: 1. Normal freely draining CBD, no residual debris noted 2. Gastritis and duodenitis RECOMMENDATIONS: 1. clears as tolerated, can advance diet tomorrow if feels well 2. Commence PPI BID with carafate 3. If H pylori pos then treat
--- NOTE | 2022-09-16 15:09 | MHC.CM.PN ---
per rounds pt to have egd today dc date not determined at [facility] time
[2022-09-16] MEDS: Omeprazole 20 MG CAPSULE.DR PO (16:04)
[2022-09-16] MEDS: Sucralfate 1 GM TABLET PO ×2 (16:04→20:48)
[2022-09-16] MEDS: Divalproex Sodium ER 250 MG TAB.ER.24H PO (20:48)
[2022-09-17] MEDS: ondansetron HCL 4 MG/2 ML VIAL IVPUSH (01:56)
[2022-09-17 04:00] VITALS: BP 159/85; PULSE 65; RESP 16; TEMP 36.2; O2SAT 95
[2022-09-17] MEDS: HYDROmorphone HCl 1 MG/ML SYRINGE IVPUSH (04:32)
[2022-09-17] MEDS: Omeprazole 20 MG CAPSULE.DR PO (05:09)
[2022-09-17 06:25] LABS: Alanine Aminotransferase 139 U/L (0-40); Albumin Level 3.7 g/dL (3.5-5.0); Alkaline Phosphatase 651 U/L (39-117); Anion Gap 16 (12-20); Aspartate Amino Transferase 69 U/L (5-37); Bilirubin Total 1.4 mg/dL (0.0-1.0); Blood Urea Nitrogen 14 mg/dL (9-16); Calcium 8.5 mg/dL (8.4-10.2); Carbon Dioxide 23 mmol/L (22-29); Chloride 100 mmol/L (96-108); Estimated Glomerular Filt Rate > 60; Glucose Random 163 mg/dL (60-115); Potassium 4.3 mmol/L (3.3-5.1); Sodium 135 mmol/L (135-145)
[2022-09-17 07:30] VITALS: BP 164/82; PULSE 69; RESP 18; TEMP 36.6; O2SAT 98
[2022-09-17] MEDS: amLODIPine Besylate 10 MG TABLET PO (07:51)
[2022-09-17] MEDS: Isosorbide Mononitrate 30 MG TAB.ER.24H PO (07:51)
[2022-09-17] MEDS: Acetaminophen 325 MG TABLET 650 MG PO (07:51)
[2022-09-17] MEDS: Sucralfate 1 GM TABLET PO (07:51)
[2022-09-17] MEDS: levETIRAcetam 500 MG TABLET PO (07:52)
[2022-09-17] MEDS: Multivitamin TABLET 1 TAB PO (07:52)
[2022-09-17] MEDS: Primidone 50 MG TABLET 250 MG PO (07:52)
[2022-09-17] MEDS: Aspirin Enteric Coated 81 MG TABLET.DR PO (07:52)
[2022-09-17] MEDS: Ezetimibe 10 MG TABLET PO (07:52)
[2022-09-17] MEDS: Ranolazine 500 MG TAB.ER.12H 1000 MG PO (07:52)
[2022-09-17] MEDS: Nicotine 21 MG PATCH.TD24 TRANSDERMA (07:53)
[2022-09-17] MEDS: 0.9 % Sodium Chloride Flush 3 ML SYRINGE IVFLUSH (07:53)
--- NOTE | 2022-09-17 13:11 | HO.POSTANES ---
Post Anesthesia Evaluation Post Anesthesia Evaluation Vital Signs: Vital Signs Temp Pulse Resp BP Pulse Ox O2 Del Method 09/17/22 07:30 97.9 F 69 18 164/82 H 98 Room Air 09/17/22 04:00 97.2 F 65 16 159/85 H 95 Room Air Anesthesia: General Endotracheal-GETA Mental Status: Awake Pain Control: Satisfactory Nausea/Vomiting: None Hydration: Adequate Anesthesia-Related Issues: No Anes. Related Issues
--- NOTE | 2022-09-28 12:14 | P.DS_ITS ---
DS: Providers Provider Date of Service: 09/28/22 Date of admission: 09/10/22 18:23 Date of discharge: 09/28/22 Primary care physician: Memo Alex MD Consults: 09/11/22 08:13 Consult to Gastroenterology Routine Consulting Provider: Viviana Melchor Reason for consultation: Choledocholithiasis Has provider been notified: No DS: Diagnosis Discharge Diagnosis (1) Elevated liver enzymes: Status: Acute (2) Choledocholithiasis: Status: Acute DS: Summary Hospital Course Hospital Course: Date of service and discharge:09/17/22 67-year-old male past medical history significant for atrial fibrillation on apixaban, sick sinus syndrome status post pacemaker implantation, coronary artery disease, peripheral artery disease, GERD presents for evaluation of ?abnormal liver enzymes. ?Patient reports that he has not been feeling well for the last 2 weeks-abdominal pain that is worse after eating as well as nausea and vomiting,also He reports ? Subjectivefevers this past weekend but none today,? still has abdominal pain? mostly in right upper quadrant area. Patient reports that he went to urgent care earlier today and was told to go to the ER because ?they said my liver enzymes were elevated especially my lipase. ? Of note, the patient outpatient lab today at 9:16 a.m. significant for AT bili of 1.1, AST of 69 and ALT of 188, alk-phos of 878 and a lipase of 138.?? repeated LFTs bilirubin is normal ,? AST ALT and alk-phos is slightly lower than before.? CT abdomen shows CBD dilation as well as ultrasound( please see imaging section for detailed report.)The patient reports a history of alcohol use but has not had a drink in 12 years. ? Denies any new complaint of chest pain or shortness of breath or abdominal pain? or chills . Denies any cough or weakness or numbness. hospital course: Patient was admitted because of right upper quadrant pain: Found to have choledocholithiasis-LFTs was worsening initially and CT abdomen and ultrasound was done: ? Possible CBD dilation: Patient started on bowel rest, IV hydration, IV pain medication and antibiotics - subsequently Patient was seen by GI and ERCP was done: Patient found to have choledocholithiasis, cholangitis with good draining. Patient still had abdominal pain-status post EGD: Possible gastritis / duodenitis-added Carafate to PPIs, patient says the pain is improvi ng- Seems to be improved, tolerating diet ,going home with carafate and ppi adjusted , follow up with Gi outpatient . plan: continue carafate and ppi . follow up with Gi outpatient. Above management discussed with the patient in detail length she understand and in agreement with the above plan, time spent 50 minutes . Time Spent with Patient Time attestation: Total time managing care of this patient today ____ minutes. Discharge coordination time: Greater than 30 minutes Quality: Safe Use of Opioids Does Pt have an Active Cancer Diagnosis on the Problem List?: No Quality: Stroke Does the patient have a stroke diagnosis?: No Physical Exam Vital Signs: Vital Signs: Last Vital Signs Temp 97.9 F 09/17/22 07:30 Pulse 69 09/17/22 07:30 Resp 18 09/17/22 07:30 BP 164/82 H 09/17/22 07:30 Pulse Ox 98 09/17/22 07:30 O2 Del Method Room Air 09/17/22 07:30 O2 Flow Rate 6 09/16/22 14:36 BMI result Body Mass Index 27.1 Appearance: Alert.? Oriented X3.? cvs: rrr, [id number] . res: clear to auscultation ,no rhonchii or wheezing abd: no rebound or guarding,nt , bs present. ext pulses present , no cyanosis . neuro: axo3 , nonfocal. DS: Data Data Completed and Pending Completed studies during hospitalization [Text1]: Pending at discharge 09/16/22 13:50 Surgical [PTH] Routine Procedures Dilation of Common Bile Duct, Via Natural or Artificial Opening Endoscopic (09/10/22) Excision of Stomach, Pylorus, Via Natural or Artificial Opening Endoscopic, Diagnostic (09/10/22) Extirpation of Matter from Common Bile Duct, Via Natural or Artificial Opening Endoscopic (09/10/22) Fluoroscopy of Bile Ducts using Low Osmolar Contrast (09/10/22) Imaging Chest x-ray: Radiologist's impression: ITS Impressions Abdomen/Pelvis CT 09/10/22 15:49 IMPRESSION: * The abnormal dilatation of the common duct and intrahepatic ducts is new since 04/25/2020. This appears to be due to choledocholithiasis. Recommend correlation with bilirubin levels and liver function tests. * Colonic diverticulosis without diverticulitis. * Prostatomegaly. * Small hemangioma of hepatic segment . Abdomen Ultrasound 09/10/22 17:57 IMPRESSION: 1. The common bile duct is dilated and there is intrahepatic biliary ductal dilatation. The filling defects seen in the common bile duct on the CT scan earlier today could not be seen on the ultrasound exam. MRCP or ERCP would be helpful for further evaluation. 2. Incidental note made of hepatic steatosis and small hemangioma right lobe of liver. Guidance Fluoroscopy 09/12/22 15:00 IMPRESSION: Fluoroscopy for GI procedure. Abdomen/Pelvis CT 09/14/22 18:14 IMPRESSION: 1. Expected pneumobilia status post ERCP. 2. Mild intra and extrahepatic biliary ductal dilatation is decreased compared to 09/10/2022. 3. No significant peripancreatic inflammatory changes to suspect acute pancreatitis by imaging. 4. No evidence of active inflammatory bowel changes, obstruction or perforation. Guidance Fluoroscopy 09/16/22 14:00 IMPRESSION: Fluoroscopy was provided to referring physician for ERCP. Discharge Plan Discharge Anticipated Discharge Date/Time: 09/14/22 10:26 Patient Disposition: Home, Self-Care Discharge Diagnosis: choledocholithiasis, gastritis /duodenitis Referrals: Name,MD Memo [Primary Care Provider] - 1 Week Viviana Melchor MD [Physician] - 1 Week (follow up outpatient) Discharge Medications: New sucralfate 1 gram Tablet 1 g PO QIDACHS Qty: 120 0RF Continued metoprolol tartrate 100 mg tablet 100 mg PO BID 90 Days Qty: 180 3RF aspirin [Adult Low Dose Aspirin] 81 mg tablet,delayed release (DR/EC) 81 mg PO DAILY amlodipine [Norvasc] 10 mg tablet 10 mg PO DAILY rosuvastatin [Crestor] 40 mg tablet 40 mg PO BEDTIME oxycodone 10 mg Tablet 10 mg PO Q5H PRN (Reason: Moderate Pain (Scale Score 5-6)) divalproex [Depakote ER] 250 mg tablet extended release 24 hr 250 mg PO BEDTIME levetiracetam [Keppra] 500 mg Tablet 500 mg PO BID nitroglycerin [Nitrostat] 0.4 mg tablet, sublingual 0.4 mg sublingual Q5M PRN (Reason: chest pain) Rx Instructions: do not exceed 3 doses per episode cyclobenzaprine 10 mg tablet 1 tab PO BID PRN (Reason: Muscle Spasm) isosorbide mononitrate 30 mg tablet extended release 24 hr 30 mg PO DAILY ranolazine 1,000 mg tablet extended release 12 hr 1,000 mg PO BID ezetimibe [Zetia] 10 mg tablet 10 mg PO DAILY multivitamin [Daily Vitamin Formula] Tablet 1 tab PO DAILY lisinopril [Zestril] 10 mg tablet 10 mg PO DAILY primidone 250 mg tablet 250 mg PO BID Changed pantoprazole [Protonix] 40 mg tablet,delayed release (DR/EC) 40 mg PO BID Qty: 60 0RF Held Eliquis 5 mg tablet 5 mg PO BID Hold Instructions: Resume on 09/17/22. Discharge Orders: Discharge Order (Routine); Ordered 09/17/22 Ordered By: Alan Rosario Diet: Advance to usual diet Activity on Discharge: As tolerated Stand Alone Forms: Patient Portal Discharge page Care Plan Goals: Patient was admitted because of right upper quadrant pain: Found to have choledocholithiasis-LFTs was worsening initially and CT abdomen and ultrasound was done: ? Possible CBD dilation: Patient started on bowel rest, IV hydration, IV pain medication and antibiotics - subsequently Patient was seen by GI and ERCP was done: Patient found to have choledocholithiasis, cholangitis with good draining. Patient still had abdominal pain-status post EGD: Possible gastritis / duodenitis-added Carafate to PPIs, patient says the pain is i mproving- Seems to be improved, tolerating diet ,going home with carafate and ppi adjusted , follow up with Gi outpatient . Health Concerns: As above. Plan of Treatment: As above. Assessment: As above. Patient Instructions: Gastritis (DC), Biliary Colic (ED), ERCP (Endoscopic Retrograde Cholangiopancreatography) (DC) Discharge Date/Time: 09/17/22 08:45
== END 2022-09-17 08:45 | disposition home or self-care (01) | DRG 446 ==
LOC: HO.ED 18:04 → HO.S3 20:17 → HO.EDOVER 10-01 08:05 → HO.S3 10-01 08:05
PROVIDERS: Internal Medicine; Internal Medicine Gastroenterology; Physician Assistant; Admitting Provider Internal Medicine; Emergency Provider Emergency Medicine; PCP Internal Medicine Geriatric Medicine; Visit Provider Internal Medicine
PROC: 0FC98ZZ Extirpation of Matter from Common Bile Duct, Via Natural or Artificial Opening Endoscopic (ICD-10-PCS; CPT 43260; principal; 2022-09-12 15:40)
PROC: 0F798ZZ Dilation of Common Bile Duct, Via Natural or Artificial Opening Endoscopic (ICD-10-PCS; CPT 43260; principal; 2022-09-16 12:00)
PROC: 0DJ08ZZ Inspection of Upper Intestinal Tract, Via Natural or Artificial Opening Endoscopic (ICD-10-PCS; CPT 43235; 2022-09-16 12:00)
DX: K80.30 Calculus of bile duct with cholangitis, unspecified, without obstruction (principal); I25.10 Atherosclerotic heart disease of native coronary artery without angina pectoris; I25.2 Old myocardial infarction; G47.33 Obstructive sleep apnea (adult) (pediatric); K29.70 Gastritis, unspecified, without bleeding; F17.210 Nicotine dependence, cigarettes, uncomplicated; K29.80 Duodenitis without bleeding; I48.0 Paroxysmal atrial fibrillation; I49.5 Sick sinus syndrome; Z95.0 Presence of cardiac pacemaker; Z86.718 Personal history of other venous thrombosis and embolism; Z20.822 Contact with and (suspected) exposure to COVID-19; Z71.6 Tobacco abuse counseling; Z88.5 Allergy status to narcotic agent; Z88.8 Allergy status to other drugs, medicaments and biological substances; Z79.01 Long term (current) use of anticoagulants; Z79.82 Long term (current) use of aspirin; Z79.899 Other long term (current) drug therapy
CPT/HCPCS: 36415; 74177; 76705; 80048; 80053; 80076; 80164; 81003; 82248; 83690; 83735; 84443; 84478; 84484; 85025; 85027; 85610; 85730; 86704; 86706; 86709; 86803; 86850; 86900; 86901; 87340; 87635; 88305; 88342; 99221; 99285; C1726; C1769; C1887; J0330; J0696; J1100; J1170; J1610; J2250; J2270; J2405; J3010; Q9967

== ENCOUNTER 2022-09-30 08:07 | Outpatient (REF) | payer MEDICARE, MEDICAID, SELFPAY ==
[2022-10-02 14:42] LABS: H Pylori Breath Test Negative (Negative)
== END 2022-09-30 08:08 | disposition home or self-care (01) ==
LOC: HO.LNP 08:07
PROVIDERS: PCP Internal Medicine Geriatric Medicine; Visit Provider Internal Medicine Gastroenterology
DX: R10.10 Upper abdominal pain, unspecified (principal); K21.9 Gastro-esophageal reflux disease without esophagitis
CPT/HCPCS: 83013; 99211

== ENCOUNTER → 2022-10-07 12:25 | Outpatient (BNVA) | payer MEDICARE, MEDICAID, SELFPAY | PROVIDERS: PCP Internal Medicine Geriatric Medicine; Referring Provider Internal Medicine Geriatric Medicine; Visit Provider Internal Medicine | DX: Z45.018 Encounter for adjustment and management of other part of cardiac pacemaker (principal); I25.10 Atherosclerotic heart disease of native coronary artery without angina pectoris; I48.92 Unspecified atrial flutter; I10 Essential (primary) hypertension; I49.5 Sick sinus syndrome; T82.110A Breakdown (mechanical) of cardiac electrode, initial encounter; R79.89 Other specified abnormal findings of blood chemistry; F17.210 Nicotine dependence, cigarettes, uncomplicated | CPT/HCPCS: 93280; 99212 ==

== ENCOUNTER 2022-10-18 11:47 | Emergency (ER) | payer MEDICARE, MEDICAID, SELFPAY ==
--- NOTE | ~2022-10-18 | CT_ITS ---
EXAMINATION: CT ABDOMEN AND PELVIS WITH CONTRAST CLINICAL INFORMATION: Abdominal pain. Right lower quadrant tenderness. COMPARISON: Previous CT of the abdomen and pelvis 09/14/2022 TECHNIQUE: Multidetector volumetric images were obtained from the superior aspect of the liver through the pubic symphysis following administration 85 mL of Omnipaque 350 intravenous contrast. Sagittal and coronal reformatted images were obtained on the technologist's workstation. Oral contrast: Yes This CT examination was performed using dose optimization techniques as appropriate, variously including the following: *Automated exposure control *Adjustment of mA and/or kV according to patient size (this includes techniques or standardized protocols for targeted exams where dose is matched to indication/reason for exam; i.e. extremities or head) *Use of iterative reconstruction technique DLP: 700 mGy-cm FINDINGS: LUNG BASES: Bullous changes at the right lung base Coronary artery calcification and pacemaker leads. LIVER, GALLBLADDER, AND BILIARY TREE: There is intra intrahepatic biliary duct dilatation, left side greater than right. The gallbladder has been removed. Extrahepatic bile ducts do not appear dilated. Pneumobilia in the left lobe of the liver seen on recent September 2022 exam is is not seen. Small calcification in the liver that is stable. PANCREAS: Mild fatty infiltration of the head of the pancreas. Duodenal diverticulum adjacent to the head of the pancreas. The pancreas is otherwise normal. SPLEEN: Unremarkable. ADRENAL GLANDS: Unremarkable. KIDNEYS AND URETERS: The kidneys are normal in size, shape, and attenuation. No hydronephrosis, hydroureter, or calculi seen. No perinephric stranding. BLADDER: Unremarkable. GASTROINTESTINAL TRACT: Mild diverticulosis of the colon. Duodenal diverticulum adjacent to the head of the pancreas. Stool throughout the colon questionable for constipation. Small and large is otherwise normal. The appendix is not seen. No inflammatory changes in the right lower quadrant. ABDOMINAL WALL: No significant hernia is appreciated. LYMPH NODES: Normal. VASCULAR: Atherosclerotic disease. No aneurysm. PELVIC VISCERA: Slightly enlarged. OSSEOUS STRUCTURES: Right hip replacement. Degenerative changes of the spine. CT/CT abdomen pelvis w IV con IMPRESSION: Appendix not seen. No inflammatory changes in the right lower quadrant. Mild diverticulosis. Question constipation. Intrahepatic biliary duct dilatation, left lobe greater than right. Pneumobilia is no longer seen. The common bile duct does not appear dilated. Slightly enlarged prostate gland. Fleischner guidelines were followed.
--- NOTE | 2022-10-18 12:05 | ED_ITS ---
HPI - Abdominal Pain General Chief Complaint: General Medical Stated Complaint: abdominal pain? Seen previously for same issue Time Seen by Provider: 10/18/22 11:59 Source: patient Mode of arrival: ambulatory Limitations: no limitations History of Present Illness HPI narrative: 67 y/o male with history of paroxysmal fib on apixaban, CAD, SSS s/p PPM, hx DVT, GERD, s/p cholecystectomy, s/p appendectomy, history of choledocholithiasis s/p ERCP in 09/16 presents to the ER for evaluation of 9 days of lower abdominal pain. He states the pain feels similar to when he had a retained CBD stone. He states the pain is mostly in the right lower quadrant, at times radiates to the left lower quadrant. He reports this is the exact location of the pain when he had the stone. He was told it was referred pain. He is nauseous but not vomiting. He lost his appetite and needs to force himself to eat. He denies any diarrhea, last had a normal BM yesterday. Denies any fever or chills. No back pain, urinary symptoms. He states pain is currently 7-8/10 pain. MD elicited complaint: abdominal pain Pertinent past history: other (CBD stone) Onset (ago): day(s) (9) Pain Consistency: constant Location: RLQ Severity: moderate Pain scale (0-10): 7 Quality: stabbing Radiation: LLQ Migration to: LLQ Exacerbating factors: nothing Relieving factors: nothing Context: history of similar episodes Associated symptoms: nausea Related Data Home Medications Medication Instructions Recorded Confirmed amlodipine 10 mg tablet (Norvasc) 10 mg PO DAILY 04/25/20 10/07/22 aspirin 81 mg tablet,delayed 81 mg PO DAILY 04/25/20 10/07/22 release (Adult Low Dose Aspirin) rosuvastatin 40 mg tablet (Crestor) 40 mg PO BEDTIME chloestrol 04/25/20 10/07/22 oxycodone 10 mg tablet 10 mg PO Q5H PRN Moderate Pain 04/26/20 10/07/22 (Scale Score 5-6) divalproex 250 mg tablet,extended 250 mg PO BEDTIME 09/08/20 09/10/22 release 24 hr (Depakote ER) ezetimibe 10 mg tablet (Zetia) 10 mg PO DAILY 10/24/20 10/07/22 lisinopril 10 mg tablet (Zestril) 10 mg PO DAILY 10/24/20 10/07/22 multivitamin (Daily Vitamin 1 tab PO DAILY 10/24/20 10/07/22 Formula tablet) apixaban 5 mg tablet (Eliquis) 5 mg PO BID 01/08/21 10/07/22 nitroglycerin 0.4 mg sublingual 0.4 mg sublingual Q5M PRN chest 11/29/21 10/07/22 tablet (Nitrostat) pain primidone 250 mg tablet 250 mg PO BID 03/05/22 10/07/22 cyclobenzaprine 10 mg tablet 1 tab PO BID PRN Muscle Spasm 06/13/22 10/07/22 isosorbide mononitrate 30 mg 30 mg PO DAILY 09/10/22 10/07/22 tablet,extended release 24 hr ranolazine 1,000 mg 1,000 mg PO BID 09/10/22 10/07/22 tablet,extended release,12 hr Previous Rx's Medication Instructions Recorded metoprolol tartrate 100 mg tablet 100 mg PO BID 90 days #180 tabs 02/26/22 pantoprazole 40 mg tablet,delayed 40 mg PO BID #60 tabs 09/16/22 release (Protonix) sucralfate 1 gram tablet 1 g PO QIDACHS #120 tabs 09/16/22 dicyclomine 10 mg capsule 10 mg PO TID PRN abdominal 10/18/22 discomfort #20 caps polyethylene glycol 3350 17 17 g PO DAILY #119 grams 10/18/22 gram/dose oral powder (Miralax) Allergies Allergy/AdvReac Type Severity Reaction Status Date / Time bee pollen [BEE STINGS] Allergy Severe ANAPHYLAXIS Verified 10/07/22 13:11 indomethacin [Indocin] Allergy Severe anaphylaxis Verified 10/07/22 13:11 tramadol [Ultram] Allergy Severe anaphylaxis Verified 10/07/22 13:11 Review of Systems Review of Systems Yes all other systems are reviewed and are negative PMFSH Past Medical History Medical History Atherosclerotic cardiovascular disease Brain bleed Brain lesion CAD (coronary artery disease) COVID-19 vaccine administered DVT (deep venous thrombosis) Esophagitis Essential hypertension GERD (gastroesophageal reflux disease) Headache History of chemotherapy Myocardial infarction Obstructive sleep apnea (~2018) On anticoagulant therapy Pacemaker (~05/2013) Personal history of nicotine dependence Psychotic disorder Seizures (~04/2020) Syncope Tremor Tubular adenoma of colon Surgical History History of appendectomy History of cardiac catheterization History of cholecystectomy History of colonoscopy (~09/2020) History of esophagogastroduodenoscopy (EGD) (~09/2020) History of permanent cardiac pacemaker placement (~05/2013) History of right knee surgery (~12/2013) History of spinal surgery History of total right hip replacement (~06/2012) Stented coronary artery Family History Family History Father Heavy cigarette smoker Throat cancer Mother Heart disease Social History Social History (Updated 10/07/22 @ 13:14 by Julienne Patterson) Household Members: None Household Members Other:: shares house with a friend Housing: House Are you a primary intensive care anaesthetist to a significant other at home: No Do you presently have visiting nurse or other home services: No Alcohol intake: former Patient Tobacco Use Status: Former Tobacco user Quit Date: 32 days ago (as of 10/07/22) Tobacco use type: Cigarette Years Smoked: 8 +/- Smoked in Last 30 Days: No e-Cigarette/Vaping Use: Never Used Second Hand Smoke Exposure: No Advance Directives: Yes Advance Directives on File: Yes Advance Directives Date on File: 12/16/20 service: No Current occupational status: employed and retired Physical Exam ED Vital Signs: Vital Signs - 24 hr 10/18/22 12:38 10/18/22 12:42 10/18/22 13:34 Temperature 97.7 F Pulse Rate 60 Respiratory Rate 20 22 H Blood Pressure 184/97 H Pulse Oximetry 95 Oxygen Delivery Method Room Air 10/18/22 14:55 Temperature 97.8 F Pulse Rate 60 Respiratory Rate 18 Blood Pressure 176/95 H Pulse Oximetry 98 Oxygen Delivery Method Room Air BMI result Body Mass Index 29.3 Appearance: Alert. Oriented X3. No acute distress. Head: normocephalic, atraumatic. Eyes: Pupils equal, round and reactive to light. ENT: Pharynx normal. No tonsillar swelling or exudate. Neck: Normal inspection. Neck supple. CVS: Normal heart rate and rhythm. Pulses normal. Respiratory: No respiratory distress. Breath sounds normal. Abdomen: Soft with right lower/lateral tenderness with guarding, normal active+BS x4. No RUQ tenderness Skin: Skin warm and dry. Normal skin color. Normal skin turgor. No rashes. Extremities: No lower extremity edema. No joint swelling. Neuro/psych: Oriented X 3. No motor deficit. No sensory deficit. CN II-XII intact. Normal speech and cognition. Medical Decision Making Medical Decision Making [facility] Narrative: 67 y/o male with history of paroxysmal fib on apixaban, CAD, SSS s/p PPM, hx DVT, GERD, s/p cholecystectomy, s/p appendectomy, history of choledocholithiasis s/p ERCP in 09/16 presents to the ER for evaluation of 9 days of lower abdominal pain. He has tenderness on the right side only. He is status post appendectomy. He has no right upper quadrant tenderness. His LFTs were unremarkable. When he was here with CBD stone his LFTs were elevated. CT scan of the abdomen does not show any CBD dilatation. He has some constipation and diverticulosis, without diverticulitis. At this time patient is stable for discharge home with Bentyl for pain, MiraLax for constipation. He was given return precautions. Stable for DC home. Differential Diagnosis Differential Diagnoses: The differential diagnosis associated with the pr esentation includes Acute appendicitis, choledocholithiasis, post ERCP pancreatitis, constipation, kidney stone, pyelonephritis, UTI, diverticulitis Consult Healthcare Provider Management of the patient was discussed with: Name Plate Stamping Machine Operator Dr. Garza GI Lab Data [facility] Lab Attestation statement: I reviewed the patient's lab results. normal LFTs and lipase 10/18/22 12:28 10/18/22 12:28 Labs: Lab Results 10/18/22 10/18/22 Range/Units 12:28 12:28 WBC 9.1 (4.8-10.8) X10*3/uL RBC 4.29 L (4.60-5.80) X10*6/uL Hgb 13.1 L (14.0-18.0) g/dl Hct 38.4 L (42.0-52.0) % MCV 89.5 (80.0-98.0) fL MCH 30.5 (27.0-33.0) pg MCHC 34.1 (31.0-36.0) g/dl RDW 13.2 (11.0-16.0) % Plt Count 258 (160-400) X10*3/uL MPV 8.3 L (9.4-12.4) fL Immature Gran % (Auto) 0.4 (0.0-0.4) % Neut % (Auto) 60.0 (45-73) % Lymph % (Auto) 24.5 (20-40) % [place] % (Auto) 8.9 (2-11) % Eos % (Auto) 5.3 H (0-4) % Baso % (Auto) 0.9 (0-2) % Lymph # (Auto) 2.2 (1.2-4.9) X10*3/uL [place] # (Auto) 0.8 (0.1-1.2) X10*3/uL Eos # (Auto) 0.5 H (0.0-0.4) X10*3/uL Baso # (Auto) 0.1 (0.0-0.2) X10*3/uL Abs Immat Gran (auto) 0.04 H (0.00-0.03) X10*3/uL Absolute Neuts (auto) 5.4 (2.0-8.3) x10*3/uL Absolute Nucleated RBC 0.000 (0.0-0.012) X10*3/uL Nucleated RBC % (auto) 0.0 (0.0-0.2) /100WBC Sodium 140 (135-145) mmol/L Potassium 4.3 (3.3-5.1) mmol/L Chloride 106 (96-108) mmol/L Carbon Dioxide 27 (22-29) mmol/L Anion Gap 11 L (12-20) BUN 19 H (9-16) mg/dL Creatinine 0.70 (0.5-1.4) mg/dL Estim Creat Clear Calc 117.3 Estimated GFR > 60 Random Glucose 94 (60-115) mg/dL Calcium 8.9 (8.4-10.2) mg/dL Magnesium 2.1 (1.6-2.6) mg/dL Total Bilirubin 0.5 (0.0-1.0) mg/dL Direct Bilirubin 0.2 (0.0-0.5) mg/dL AST 17 (5-37) U/L ALT 16 (0-40) U/L Alkaline Phosphatase 97 (39-117) U/L Total Protein 6.4 L (6.5-8.0) g/dL Albumin 4.1 (3.5-5.0) g/dL Lipase 15 (8-78) U/L Independent Interpretation Interpretation: No evidence of acute kidney stones, acute appendicitis, diverticulitis. Agree with radiologist read Radiology Impression Discussion of test interpretation with radiology: I have reviewed the radiologist's reading. Radiologist Impression: CT/CT abdomen pelvis w IV con IMPRESSION: Appendix not seen. No inflammatory changes in the right lower quadrant. Mild diverticulosis. Question constipation. Intrahepatic? biliary duct dilatation, left lobe greater than right. Pneumobilia is no longer seen. The common bile duct does not appear dilated. Slightly enlarged prostate gland. External Record Review External record reviewed: Office record, Outpatient record, Prior outpatient labs and Prior outpatient radiology Tests considered The following testing was considered but not selected: Ultrasound considered, not performed today due to normal LFTs Prescription Management I considered prescription management with: Pain Medication Chronic Conditions Patient?s care impacted by: Hypertension and Other (AFib ) Medications Administered Discontinued Medications Generic Name Dose Route Start Last Admin Trade Name Freq PRN Reason Stop Dose Admin Iohexol 85 ml 10/18/22 13:08 10/18/22 13:09 Iohexol 350 Mg/Ml 100 Ml Infus..Btl IV 10/18/22 13:09 85 ml ONCE ONE Administration Morphine Sulfate 4 mg 10/18/22 13:30 10/18/22 13:34 Morphine Sulfate 4 Mg/Ml Cartridge IVPUSH 10/18/22 13:31 4 mg ONCE ONE Administration Protocol Ondansetron HCl 4 mg 10/18/22 13:30 10/18/22 13:35 Ondansetron Hcl 4 Mg/2 Ml Vial IVPUSH 10/18/22 13:31 4 mg ONCE ONE Administration Critical Care Time Critical Care Time Critical Care Time: No Discharge Plan Discharge Clinical Impression: Abdominal pain Patient Disposition: Home, Self-Care Instructions: Constipation (DC), Abdominal Pain (ED) Additional Instructions: Your lab workup today was unremarkable. Your CT scan did not show any evidence of retained stones or infection in the abdomen. It did show that you are most likely constipated. Take the prescribed medication as needed for pain and the prescribed laxative to help move your bowels. Rest and stay hydrated. Stick to a bland diet while you are not feeling well. Follow-up with PCP next week. If you develop new or worsening symptoms call 911 or come back to the ER for further evaluation. Prescriptions: New dicyclomine 10 mg capsule 10 mg PO TID PRN (Reason: abdominal discomfort) Qty: 20 0RF polyethylene glycol 3350 [Miralax] 17 gram/dose powder 17 g PO DAILY Qty: 119 0RF No Action metoprolol tartrate 100 mg tablet 100 mg PO BID 90 Days Qty: 180 3RF aspirin [Adult Low Dose Aspirin] 81 mg tablet,delayed release (DR/EC) 81 mg PO DAILY amlodipine [Norvasc] 10 mg tablet 10 mg PO DAILY rosuvastatin [Crestor] 40 mg tablet 40 mg PO BEDTIME oxycodone 10 mg Tablet 10 mg PO Q5H PRN (Reason: Moderate Pain (Scale Score 5-6)) divalproex [Depakote ER] 250 mg tablet extended release 24 hr 250 mg PO BEDTIME nitroglycerin [Nitrostat] 0.4 mg tablet, sublingual 0.4 mg sublingual Q5M PRN (Reason: chest pain) Rx Instructions: do not exceed 3 doses per episode cyclobenzaprine 10 mg tablet 1 tab PO BID PRN (Reason: Muscle Spasm) isosorbide mononitrate 30 mg tablet extended release 24 hr 30 mg PO DAILY ranolazine 1,000 mg tablet extended release 12 hr 1,000 mg PO BID sucralfate 1 gram Tablet 1 g PO QIDACHS Qty: 120 0RF pantoprazole [Protonix] 40 mg tablet,delayed release (DR/EC) 40 mg PO BID Qty: 60 0RF Eliquis 5 mg tablet 5 mg PO BID Hold Instructions: Resume on 09/17/22. ezetimibe [Zetia] 10 mg tablet 10 mg PO DAILY multivitamin [Daily Vitamin Formula] Tablet 1 tab PO DAILY lisinopril [Zestril] 10 mg tablet 10 mg PO DAILY primidone 250 mg tablet 250 mg PO BID
[2022-10-18 12:34] LABS: MANUAL DIFF FLAG NO
[2022-10-18 12:35] LABS: Basophils Absolute Auto 0.1 X10*3/uL (0.0-0.2); Basophils Percent Auto 0.9 % (0-2); Eosinophils Absolute Auto 0.5 X10*3/uL (0.0-0.4); Eosinophils Percent Auto 5.3 % (0-4); Hematocrit 38.4 % (42.0-52.0); Hemoglobin 13.1 g/dl (14.0-18.0); Imm Gran Abs Auto 0.04 X10*3/uL (0.00-0.03); Imm Gran Pct Auto 0.4 % (0.0-0.4); Lymphocytes Absolute Auto 2.2 X10*3/uL (1.2-4.9); Lymphocytes Percent Auto 24.5 % (20-40); Mean Corpuscular HGB Conc 34.1 g/dl (31.0-36.0); Mean Corpuscular Hemoglobin 30.5 pg (27.0-33.0); Mean Corpuscular Volume 89.5 fL (80.0-98.0); Mean Platelet Volume 8.3 fL (9.4-12.4); Monocytes Absolute Auto 0.8 X10*3/uL (0.1-1.2); Monocytes Percent Auto 8.9 % (2-11); Neutrophils Absolute Auto 5.4 x10*3/uL (2.0-8.3); Platelet Count 258 X10*3/uL (160-400); Red Blood Count 4.29 X10*6/uL (4.60-5.80); Red Cell Distribution Width 13.2 % (11.0-16.0); White Blood Count 9.1 X10*3/uL (4.8-10.8)
--- OUTSIDE RECORDS SUMMARY | 2022-10-18 12:35 | XMS_ITS | Patient Health Record ---
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, with unspecified presence of clinical manifestation I70.203 confirmed [id number] ALLERGIES Allergen (clinical drug ingredient) Drug/Non Drug Allergy documented on EMR Reaction Allergy Type Onset Date Status indomethacin Indocin([facility] Code:[address]-03) Unknown Drug Allergy Active tramadol Ultram Unknown Drug Allergy Active enoxaparin Lovenox([facility] Code:[address]-68) Unknown Drug Allergy Active Bee Sting Unknown Drug Allergy Active ENCOUNTERS from 1955 to 2022-10-18 Encounter Location Date Provider Diagnosis [address] [address] Aug, Rollybreanna HillVirgil 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, with unspecified presence of clinical manifestation I70.203 ; Tinea unguium B35.1 ; Pain in right toe(s) M79.674 and Pain in left toe(s) M79.[address] [address] May, Rollybreanna HillVirgil 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, with unspecified presence of clinical manifestation I70.203 ; Ingrowing nail L60.0 ; Tinea unguium B35.1 ; Pain in right toe(s) M79.674 and Pain in left toe(s) M79.675 [facility] [address] [place] [address] Feb, Rolly Virgil Achilles tendinitis, left leg M76.62 ; Pain of left heel M79.672 ; Tinea unguium B35.1 ; Pain in right toe(s) M79.674 and Pain in left toe(s) M79.675 [facility] [address] [place] [address] Jan, Rolly Virgil Cellulitis of left toe L03.032 ; 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 ; Achilles tendinitis, left leg M76.62 ; Pain of left heel M79.672 ; Calcaneal spur, left foot M77.32 ; 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 No Points 0 Interpretation Negative Tobacco Use/Smoking Question Answer Notes Additional Findings: Tobacco Non-User Current no n-smoker Are you a: former smoker Tobacco use other than smoking: Question Answer Notes Are you an other tobacco user? No REASON FOR REFERRAL No Information VITAL SIGNS from 1955 to 2022-10-18 Height 5 ft 11 in in Aug, Weight 204 lbs Aug, BMI 28.45 kg/m2 Aug, Blood pressure systolic 120 mm Hg Aug, Blood pressure diastolic 80 mm Hg Aug, MEDICATIONS Medication SIG (Take, Route, Frequency, Duration) Notes Start Date End Date Status Pantoprazole Sodium 40 MG 1 tablet Orall y Once a day for 30 day(s) Active Ranolazine ER 1000 MG 1 tablet Orally Tw ice a day for 30 day(s) Active Nitroglycerin 0.4 MG Sublingual for 30 Active Aspirin 81 MG 1 tablet Orally Once a day for 30 day(s) Active Multivitamin - 1 tablet Orally Once a day for 30 day(s) Active Lisinopril 10 MG 1 tablet Orally Once a day for 30 day(s) Active Ezetimibe 10 MG 1 tablet Orally Once a day for 30 day(s) Active amLODIPine Besylate 10 MG 1 tablet Orall y Once a day for 30 day(s) Active Antibiotic Not-Takin g oxyCODONE HCl 10 MG 1 tablet as needed Orally every 6 hrs Active Divalproex Sodium 250 MG 1 tablet Orally Once a day for 30 day(s) Active Metoprolol Tartrate 50 MG 1 tablet with food Orally Twice a day for 30 day(s) Active Rosuvastatin Calcium 40 MG 1 tablet Oral ly Once a day for 30 day(s) Active eliquis 5 mg Active REASON FOR VISIT No Information MEDICAL (GENERAL) HISTORY Type Description Date Medical [...] catheterization 01/2020 Surgical History lumbosacral spine surgery 09/03 Hospitalization History 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 given antiboitics 01/08/22 Hospitalization History [facility] opedic-Drain left knee 3x between 5 weeks 2021 Hospitalization History [facility] [place] - AFib and c vijay at sametime- coded 2x CPR done 2 days 06/13/2022 MENTAL STATUS No Information ASSESSMENTS Encounter Date Diagnosis Assessment Notes Treatment Notes Treatment Clinical Notes Aug, Tinea unguium (ICD-1 0 - B35.1) Aug, 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, with unspecified presence of clinical manifestation (ICD-10 - I70.203) Aug, Pain in right toe(s) (ICD-10 - M79.674) Aug, Pain in left toe(s) (ICD-10 - M79.675) May, Ingrowing nail (ICD- 10 - L60.0) May, 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, with unspecified presence of clinical manifestation (ICD-10 - I70.203) May, Tinea unguium (ICD-1 0 - B35.1) May, Pain in right toe(s) (ICD-10 - M79.674) May, Pain in left toe(s) (ICD-10 - M79.675) Feb, Achilles tendinitis, left leg (ICD-10 - M76.62) Patient Educated with: HEEL CORD STRETCHES.pdf (HEEL CORD STRETCHES.pdf) Patient Educated with: RICE THERAPY.pdf (RICE THERAPY.pdf) Feb, Pain of left heel (ICD-10 - M79.672) Feb, Tinea unguium (ICD-1 0 - B35.1) Feb, Pain in right toe(s) (ICD-10 - M79.674) Feb, Pain in left toe(s) (ICD-10 - M79.675) Jan, Cellulitis of left t oe (ICD-10 - L03.032) Jan, Non-pressure chronic ulcer of other part of left foot limited to breakdown of skin (ICD-10 - L97.521) Jan, Achilles tendinitis, left leg (ICD-10 - M76.62) Patient Educated with: HEEL CORD STRETCHES.pdf (HEEL CORD STRETCHES.pdf) Patient Educated with: RICE THERAPY.pdf (RICE THERAPY.pdf) Jan, Pain of left heel (ICD-10 - M79.672) Jan, Calcaneal spur, left foot (ICD-10 - M77.32) Jan, Acquired Dinh's deformity of left heel (ICD-10 - M92.62) Jan, Short Achilles tendo n (acquired), left ankle (ICD-10 - M67.02) Jan, Cellulitis of left t oe (ICD-10 - L03.032) Jan, Abscess of toe, left (ICD-10 - L02.612) PLAN OF TREATMENT Treatment Notes Assessment Notes Clinical Notes Achilles tendinitis, left leg Patient Ed ucated with: HEEL CORD STRETCHES.pdf (HEEL CORD STRETCHES.pdf) Patient Educated with: RICE THERAPY.pdf (RICE THERAPY.pdf) Achilles tendinitis, left leg Patient Ed ucated with: HEEL CORD STRETCHES.pdf (HEEL CORD STRETCHES.pdf) Patient Educated with: RICE THERAPY.pdf (RICE THERAPY.pdf) Pending Tests Test Name Order Date [id number] NAIL, 6 OR MORE 2022-08-27 09908-FJYK SKIN LESIONS, 2 TO 4 25896-XXLYNAG NAIL, 6 OR MORE 2022-05-28 00890-Pyrpyedc Plate 2022-05-28 43371-GKDH SKIN LESIONS, 2 TO 4 60690-JBSLPKE NAIL, 6 OR MORE 2022-03-05 X ray : Foot, left 3V 2022-01-23 90952- Debride <25 sq cm 2022-01-23 52217 I&D ABSCESS- SIMPLE,SINGLE 2022-01 Next Appt Details prn Reason: Provider Name:Rolly Herman , 2022-11-12 03:30:00 PM, [address] [place], [address], Insurance Providers Payer Name Payer Address Payer Phone Insured Name Patient Relationship to Insured Coverage Start Date Coverage End Date Subscriber Number Group Number [facility] [id number] [facility] [address] Myles Tipton Self - patient is the insured [id number]
--- OUTSIDE RECORDS SUMMARY | 2022-10-18 12:35 | XMS_ITS ---
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 Name Role Phone Jose Cruz Miranda [facility] [phone] PROBLEMS Type Condition ICD9-CM Code JLK33-ND Code Onset Dates Condition Status SNOMED Code Problem Pacemaker Z95.0 Active 962093823 Problem Myocardial infarction, unspecified NE type, unspecified artery I21.9 Active 12705195 Problem GERD (gastroesophageal reflux disease) K21.9 Active 383769027 Problem Primary osteoarthritis of both hips M16.0 Active 904336094 Problem Syncope R55 Active 181401747 Problem 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 I25.119 Active 916079633 Problem Tubular adenoma of colon D12.6 Active 852705933 Problem HTN (hypertension) I10 Active 48022 003 Problem Acute deep vein thrombosis (DVT) of proximal vein of left lower extremity I82.4Y2 Active Problem Tobacco dependence F17.200 Active 45534 005 Problem Primary osteoarthritis of left knee M17.12 Active 245090149 ALLERGIES Substance Reaction Event Type Date Status Tramadol Unknown Drug Allergy Mar, Active Bee Sting Unknown Drug Allergy Mar, Active Pollen Unknown Drug Allergy Mar, Active Indocin Unknown Drug Allergy Mar, Active ENCOUNTERS Encounter Location Date Diagnosis Jose Cruz Miranda III, MD [address] [place] [address] [place] [address] Jan, Acute deep vein thrombosis (DVT) of proximal vein of left lower extremity I82.4Y2 ; HTN (hypertension) I10 ; GERD (gastroesophageal reflux disease) K21.9 ; Pacemaker Z95.0 and Tobacco dependence F17.200 Jose Cruz Miranda III, MD [address] [place] [address] [address], [place] [address] 15 Dec, 2020 Acute deep vein thrombosis (DVT) of proximal vein of left lower extremity I82.4Y2 ; Tobacco dependence F17.200 ; Primary osteoarthritis of left knee M17.12 ; Primary osteoarthritis of both hips M16.0 ; 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
[2022-10-18 12:38] VITALS: PULSE 60; RESP 20; TEMP 36.5; O2SAT 95; BMI 29.3
[2022-10-18 12:42] VITALS: BP 184/97
[2022-10-18 12:49] LABS: Alanine Aminotransferase 16 U/L (0-40); Albumin Level 4.1 g/dL (3.5-5.0); Alkaline Phosphatase 97 U/L (39-117); Anion Gap 11 (12-20); Aspartate Amino Transferase 17 U/L (5-37); Bilirubin Direct 0.2 mg/dL (0.0-0.5); Bilirubin Total 0.5 mg/dL (0.0-1.0); Blood Urea Nitrogen 19 mg/dL (9-16); Calcium 8.9 mg/dL (8.4-10.2); Carbon Dioxide 27 mmol/L (22-29); Chloride 106 mmol/L (96-108); Creatinine Clr Calc Pharmacy 117.3; Estimated Glomerular Filt Rate > 60; Glucose Random 94 mg/dL (60-115); Lipase 15 U/L (8-78); Magnesium 2.1 mg/dL (1.6-2.6); Potassium 4.3 mmol/L (3.3-5.1); Sodium 140 mmol/L (135-145); Total Protein 6.4 g/dL (6.5-8.0)
[2022-10-18] MEDS: iohexoL 350 MG/ML 100 ML INFUS..BTL 85 ML IV (13:09)
[2022-10-18 13:34] VITALS: RESP 22
[2022-10-18] MEDS: Morphine Sulfate 4 MG/ML CARTRIDGE IVPUSH (13:34)
[2022-10-18] MEDS: ondansetron HCL 4 MG/2 ML VIAL IVPUSH (13:35)
[2022-10-18 14:55] VITALS: BP 176/95; PULSE 60; RESP 18; TEMP 36.6; O2SAT 98
== END 2022-10-18 15:59 | disposition home or self-care (01) ==
PROVIDERS: Physician Assistant; Emergency Provider Emergency Medicine; PCP Internal Medicine Geriatric Medicine
DX: R10.31 Right lower quadrant pain (principal); I10 Essential (primary) hypertension; I48.0 Paroxysmal atrial fibrillation; Z95.0 Presence of cardiac pacemaker; Z79.82 Long term (current) use of aspirin; Z79.899 Other long term (current) drug therapy; Z79.01 Long term (current) use of anticoagulants; Z86.718 Personal history of other venous thrombosis and embolism
CPT/HCPCS: 36415; 74177; 80048; 80076; 83690; 83735; 85025; 96374; 96375; 99284; J2270; J2405; Q9967

== ENCOUNTER 2022-11-13 19:39 | Emergency (ER) | payer MEDICARE, MEDICAID, SELFPAY ==
--- NOTE | ~2022-11-13 | CT_ITS ---
EXAMINATION: CT ABDOMEN AND PELVIS WITH CONTRAST CLINICAL INFORMATION: Left lower quadrant pain. COMPARISON: CT abdomen and pelvis dated 10/18/2022. TECHNIQUE: Multidetector volumetric images were obtained from the superior aspect of the liver through the pubic symphysis following administration 85 mL of Omnipaque 350 intravenous contrast. Sagittal and coronal reformatted images were obtained on the technologist's workstation. Oral contrast: No This CT examination was performed using dose optimization techniques as appropriate, variously including the following: *Automated exposure control *Adjustment of mA and/or kV according to patient size (this includes techniques or standardized protocols for targeted exams where dose is matched to indication/reason for exam; i.e. extremities or head) *Use of iterative reconstruction technique DLP: 743 mGy-cm FINDINGS: LUNG BASES: The visualized lung bases are unremarkable. Pacemaker leads are noted. LIVER, GALLBLADDER, AND BILIARY TREE: The liver is normal in size, shape, and attenuation. No focal hepatic lesion is seen. There is stable moderate dilatation of the left biliary tree. The gallbladder is surgically absent. PANCREAS: Unremarkable. SPLEEN: Unremarkable. ADRENAL GLANDS: Unremarkable. KIDNEYS AND URETERS: The kidneys are normal in size, shape, and attenuation. No hydronephrosis, hydroureter, or calculi seen. No perinephric stranding. BLADDER: Unremarkable. GASTROINTESTINAL TRACT: There is a small hiatus hernia. There is mild diverticulosis, without acute diverticulitis. No bowel obstruction, free intraperitoneal air or abscess is seen. There is no focal bowel wall thickening. The vermiform appendix is not identified; however, there is no finding to suggest appendicitis. ABDOMINAL WALL: There is a tiny fat-containing umbilical hernia. There are very small fat-containing bilateral inguinal hernias. LYMPH NODES: Normal. VASCULAR: No abdominal aortic aneurysm is seen. There is moderate aortoiliac atherosclerotic calcification. There is a circumaortic left renal vein. PELVIC VISCERA: There is prostatomegaly, with a transverse span of 5.4 cm. The seminal vesicles are unremarkable. OSSEOUS STRUCTURES: There is multi-level thoracolumbar degenerative disc disease, spondylosis and Schmorl's node formation. A right hip arthroplasty is noted. No acute or aggressive osseous abnormality is seen. CT/CT abdomen pelvis w IV con IMPRESSION: 1. There is mild diverticulosis, without acute diverticulitis. No bowel obstruction, free intraperitoneal air or abscess is seen. The vermiform appendix is not identified. 2. There is stable moderate dilatation of the left biliary tree. The gallbladder is surgically absent. 3. There is a small hiatus hernia. 4. Very small abdominal wall hernia defects are noted. 5. There is prostatomegaly. 6. There are degenerative changes of the thoracolumbar spine. No acute or aggressive osseous finding is noted. Fleischner guidelines were followed.
[2022-11-13 20:14] VITALS: BP 235/108; PULSE 76; RESP 20; TEMP 36.3; O2SAT 96; BMI 27.9
--- NOTE | 2022-11-13 20:15 | ED.GENADULT ---
HPI - General Adult General Chief complaint: Abdominal Pain Stated complaint: abd pain Time Seen by Provider: 11/13/22 20:25 Source: patient Mode of arrival: ambulatory Limitations: no limitations History of Present Illness HPI narrative: This is a 67-year-old male history of choledocholithiasis, arthrosclerotic cardiovascular disease, brain bleed, CAD, DVT, atrial fibrillation anticoagulated, sick sinus syndrome status post pacemaker in place , GERD, essential hypertension, MRI, DARION, tremor, seizures, psychotic disorder, syncope, tubular adenoma colon status post chemotherapy. Patient presenting with severe left lower quadrant abdominal pain, worsened by bowel movements X1 month worsening over the past few days. Reports he was recently admitted here on 09/10/2022 for choledocholithiasis and he reports he had 2 ERCPs at that time. He reports that due to having a pacemaker he was unable to get an MRCP. Patient denies chest pain, shortness of breath, nausea, vomiting, hematemesis, diarrhea, headache, vision changes, dizziness, recent sick contacts. Patient does have known history of diverticulitis. Patient reports difficulty tolerating p.o. and reports that he has lost 5 lb in the past week. Related Data Home Medications Medication Instructions Recorded Confirmed amlodipine 10 mg tablet (Norvasc) 10 mg PO DAILY 04/25/20 10/07/22 aspirin 81 mg tablet,delayed 81 mg PO DAILY 04/25/20 10/07/22 release (Adult Low Dose Aspirin) rosuvastatin 40 mg tablet (Crestor) 40 mg PO BEDTIME chloestrol 04/25/20 10/07/22 oxycodone 10 mg tablet 10 mg PO Q5H PRN Moderate Pain 04/26/20 10/07/22 (Scale Score 5-6) divalproex 250 mg tablet,extended 250 mg PO BEDTIME 09/08/20 09/10/22 release 24 hr (Depakote ER) ezetimibe 10 mg tablet (Zetia) 10 mg PO DAILY 10/24/20 10/07/22 lisinopril 10 mg tablet (Zestril) 10 mg PO DAILY 10/24/20 10/07/22 multivitamin (Daily Vitamin 1 tab PO DAILY 10/24/20 10/07/22 Formula tablet) apixaban 5 mg tablet (Eliquis) 5 mg PO BID 01/08/21 10/07/22 nitroglycerin 0.4 mg sublingual 0.4 mg sublingual Q5M PRN chest 11/29/21 10/07/22 tablet (Nitrostat) pain primidone 250 mg tablet 250 mg PO BID 03/05/22 10/07/22 cyclobenzaprine 10 mg tablet 1 tab PO BID PRN Muscle Spasm 06/13/22 10/07/22 isosorbide mononitrate 30 mg 30 mg PO DAILY 09/10/22 10/07/22 tablet,extended release 24 hr ranolazine 1,000 mg 1,000 mg PO BID 09/10/22 10/07/22 tablet,extended release,12 hr Previous Rx's Medication Instructions Recorded metoprolol tartrate 100 mg tablet 100 mg PO BID 90 days #180 tabs 02/26/22 pantoprazole 40 mg tablet,delayed 40 mg PO BID #60 tabs 09/16/22 release (Protonix) sucralfate 1 gram tablet 1 g PO QIDACHS #120 tabs 09/16/22 dicyclomine 10 mg capsule 10 mg PO TID PRN abdominal 10/18/22 discomfort #20 caps polyethylene glycol 3350 17 17 g PO DAILY #119 grams 10/18/22 gram/dose oral powder (Miralax) lidocaine 5 % topical patch 1 patch topical DAILY PRN pain #15 11/14/22 ea ondansetron 4 mg disintegrating 4 mg PO Q6H PRN nausea and 11/14/22 tablet vomiting #14 tabs Allergies Allergy/AdvReac Type Severity Reaction Status Date / Time bee pollen [BEE STINGS] Allergy Severe ANAPHYLAXIS Verified 11/13/22 20:14 indomethacin [Indocin] Allergy Severe anaphylaxis Verified 11/13/22 20:14 tramadol [Ultram] Allergy Severe anaphylaxis Verified 11/13/22 20:14 Review of Systems Review of Systems: Constitutional : No Weight loss, No Fever, No Chills, No Fatigue, No Malaise ENT/Mouth : No sore throat, No Rhinorrhea Eyes: No Eye Pain, No Swelling, No Redness Cardiovascular : No Chest Pain, No SOB, No Dyspnea on Exertion, No Orthopnea, No Edema, No Palpitations Respiratory : No Cough, No Sputum, No Wheezing Gastrointestinal : No Nausea, No Vomiting, No Diarrhea, No Constipation, + abdominal Pain, No Hematochezia, No Melena Genitourinary : No Dysuria, No Urinary Frequency, No Hematuria, Musculoskeletal : No joint pain, No Myalgias, No Joint Swelling Skin : No Skin Lesions, No rash Neuro : No Weakness, No Numbness, No Dizziness, No Headache Psych : No Anxiety/Panic, No Depression All other systems reviewed and are negative Yes all other systems are reviewed and are negative [facility] Past Medical History Attestation statement: The following information was validated with the patient. Source: old records reviewed and nursing notes reviewed Medical History Atherosclerotic cardiovascular disease Brain bleed Brain lesion CAD (coronary artery disease) COVID-19 vaccine administered DVT (deep venous thrombosis) Esophagitis Essential hypertension GERD (gastroesophageal reflux disease) Headache History of chemotherapy Myocardial infarction Obstructive sleep apnea (~2018) On anticoagulant therapy Pacemaker (~05/2013) Personal history of nicotine dependence Psychotic disorder Seizures (~04/2020) Syncope Tremor Tubular adenoma of colon Surgical History History of appendectomy History of cardiac catheterization History of cholecystectomy History of colonoscopy (~09/2020) History of esophagogastroduodenoscopy (EGD) (~09/2020) History of permanent cardiac pacemaker placement (~05/2013) History of right knee surgery (~12/2013) History of spinal surgery History of total right hip replacement (~06/2012) Stented coronary artery Family History Family History Father Heavy cigarette smoker Throat cancer Mother Heart disease Social History Social History Household Members: None Household Members Other:: shares house with a friend Housing: House Are you a primary child caregiver private home to a significant other at home: No Do you presently have visiting nurse or other home services: No Alcohol intake: never Patient Tobacco Use Status: Former Tobacco user Quit Date: 32 days ago (as of 10/07/22) Tobacco use type: Cigarette Years Smoked: 8 +/- Smoked in Last 30 Days: No e-Cigarette/Vaping Use: Never Used Second Hand Smoke Exposure: No Use of substances other than those prescribed or required for medical reasons: No Advance Directives: Yes Advance Directives Information Provided: No Advance Directives on File: No Advance Directives Date on File: 12/16/20 service: No Current occupational status: employed and retired Physical Exam ED Vital Signs: Vital Signs - 24 hr 11/13/22 20:14 11/13/22 21:21 11/13/22 22:19 Temperature 97.4 F Pulse Rate 76 76 Respiratory Rate 20 20 18 Blood Pressure 235/108 H 163/102 H Pulse Oximetry 96 96 Oxygen Delivery Method Room Air Room Air 11/13/22 23:12 Temperature 97.7 F Pulse Rate 67 Respiratory Rate 18 Blood Pressure 168/91 H Pulse Oximetry 97 Oxygen Delivery Method Room Air BMI result Body Mass Index 27.9 Significant hypertension likely secondary to pain. Appearance: Alert.? Oriented X3.? No acute distress.? Head: Normocephalic, atraumatic, no step-offs or deformities Eyes: Pupils equal, round and reactive to light.? ENT: Pharynx normal.? Neck: Normal inspection.? Neck supple.? CVS: Normal heart rate and rhythm.? Pulses normal.? Respiratory: No respiratory distress.? Breath sounds normal.? Abdomen: Soft and + left lower quadrant tenderness to palpation. Normoactive bowel sounds.? Skin: Skin warm and dry.? Normal skin color.? Normal skin turgor.? Extremities: No lower extremity edema.? No calf ttp. 5/5 strength to bilateral upper and lower extremities Neuro: Oriented X 3.? No motor deficit.? No sensory deficit. CN 2-12 intact Course Course Course Narrative: 67-year-old male past medical history significant for choledocholithiasis, paroxysmal AFib, coronary artery disease, sick sinus syndrome status post pacemaker implantation presents for evaluation of abdominal pain. Patient was seen here and admitted on 09/10/2022 for choledocholithiasis. He reports having had 2 ERCPs. He believes his pacemaker is incompatible with MRI so cannot have MRCP. The patient also has a history of diverticulitis. Patient has left lower quadrant pain today with bowel movements. Reevaluation(s) Reevaluation #1: CBC appears to be around patient's baseline. Chemistry with slightly elevated BUN likely secondary to poor p.o. intake/dehydration. No other electrolyte abnormalities requiring intervention. UA without infection. CT of abdomen and pelvis with mild diverticulosis without acute diverticulitis. Stable moderate dilation of like biliary tree. Small hiatal hernia. Small abdominal wall hernia did fax. There are degenerative changes of the thoracolumbar spine. Patient is still complaining of severe pain will order low-dose fentanyl. Time: 23:24 Reevaluation #2: This case was extensively discussed with my attending Dr. Clarke who went and evaluated the patient obtained a history on him. Believes this is musculoskeletal pain which is consistent with patient's negative workup otherwise. Will give Lidoderm, Zofran for nausea vomiting. Will have him follow-up with PCP. Educated patient on diagnosis and treatment plan, answered all question, patient verbalizes understanding. At this time patient will be discharged home, advised to return with new or worsening symptoms. Educated on worrisome signs and symptoms and when to return. At this time I feel comfortable discharge home. Time: 00:36 Medications Administered Discontinued Medications Generic Name Dose Route Start Last Admin Trade Name Freq PRN Reason Stop Dose Admin Fentanyl 25 mcg 11/13/22 23:06 11/13/22 23:14 Fentanyl Citrate/Pf 100 Mcg/2 Ml Vial IVPUSH 11/13/22 23:07 25 mcg ONCE ONE Administration Protocol Fentanyl 25 mcg 11/13/22 23:53 11/14/22 00:01 Fentanyl Citrate/Pf 100 Mcg/2 Ml Vial IVPUSH 11/13/22 23:54 25 mcg ONCE ONE Administration Protocol Sodium Chloride 1,000 mls @ 999 mls/hr 11/13/22 22:00 11/13/22 23:37 Ns IV 11/13/22 23:00 Infused .Q1H1M CRICKET Infusion Iohexol 100 ml 11/13/22 21:16 11/13/22 21:16 Iohexol 350 Mg/Ml 100 Ml Infus..Btl IV 11/13/22 21:17 85 ml ONCE ONE Administration Morphine Sulfate 4 mg 11/13/22 21:53 11/13/22 22:19 Morphine Sulfate 4 Mg/Ml Cartridge IVPUSH 11/13/22 21:54 4 mg ONCE ONE Administration Protocol Medical Decision Making Medical Decision Making MDM Narrative: 67-year-old male presents with left lower quadrant pain worsened with bowel movements that started a few weeks ago worsening today. History of diverticulitis in recently admitted here with choledocholithiasis. Physical exam left lower quadrant tenderness on exam. Normoactive bowel sounds. Likely acute diverticulitis. Unlikely acute abdomen, pancreatitis, cholecystitis, choledocholithiasis, cholangitis, appendicitis, bowel obstruction. Will rule out metabolic derangements. Plan labs, imaging, urine. Differential Diagnosis Differential Diagnoses: The differential diagnosis associated with the presentation includes Likely acute diverticulitis. Unlikely acute abdomen, pancreatitis, cholecystitis, choledocholithiasis, cholangitis, appendicitis, bowel obstruction. Will rule out metabolic derangements. Admission/Observation Consideration of admission/observation: Escalation of care including admission/observation considered Lab Data MDM Lab Attestation statement: I reviewed the patient's lab results. 11/13/22 20:41 11/13/22 20:41 Labs: Lab Results 11/13/22 11/13/22 11/13/22 Range/Units 20:41 20:41 23:13 WBC 10.3 (4.8-10.8) X10*3/uL RBC 4.67 (4.60-5.80) X10*6/uL Hgb 14.5 (14.0-18.0) g/dl Hct 42.9 (42.0-52.0) % MCV 91.9 (80.0-98.0) fL MCH 31.0 (27.0-33.0) pg MCHC 33.8 (31.0-36.0) g/dl RDW 13.2 (11.0-16.0) % Plt Count 285 (160-400) X10*3/uL MPV 8.4 L (9.4-12.4) fL Immature Gran % (Auto) 0.3 (0.0-0.4) % Neut % (Auto) 64.3 (45-73) % Lymph % (Auto) 25.0 (20-40) % [place] % (Auto) 6.9 (2-11) % Eos % (Auto) 2.9 (0-4) % Baso % (Auto) 0.6 (0-2) % Lymph # (Auto) 2.6 (1.2-4.9) X10*3/uL [place] # (Auto) 0.7 (0.1-1.2) X10*3/uL Eos # (Auto) 0.3 (0.0-0.4) X10*3/uL Baso # (Auto) 0.1 (0.0-0.2) X10*3/uL Abs Immat Gran (auto) 0.03 (0.00-0.03) X10*3/uL Absolute Neuts (auto) 6.6 (2.0-8.3) x10*3/uL Absolute Nucleated RBC 0.000 (0.0-0.012) X10*3/uL Nucleated RBC % (auto) 0.0 (0.0-0.2) /100WBC Sodium 139 (135-145) mmol/L Potassium 4.1 (3.3-5.1) mmol/L Chloride 104 (96-108) mmol/L Carbon Dioxide 24 (22-29) mmol/L Anion Gap 15 (12-20) BUN 27 H (9-16) mg/dL Creatinine 0.94 (0.5-1.4) mg/dL Estim Creat Clear Calc 85.4 Estimated GFR > 60 Random Glucose 176 H (60-115) mg/dL Calcium 9.3 (8.4-10.2) mg/dL Total Bilirubin 0.3 (0.0-1.0) mg/dL AST 15 (5-37) U/L ALT 16 (0-40) U/L Alkaline Phosphatase 96 (39-117) U/L Total Protein 7.0 (6.5-8.0) g/dL Albumin 4.2 (3.5-5.0) g/dL Lipase 16 (8-78) U/L Urine Color Yellow Urine Appearance Clear Urine pH 5.5 (5.0-9.0) Ur Specific North >= 1.030 H (1.005-1.025) Urine Protein Negative (Neg-Trace) mg/dL Urine Glucose (UA) Negative (Negative) mg/dL Urine Ketones Negative (Negative) mg/dL Urine Blood Negative (Negative) Urine Nitrite Negative (Negative) Ur Leukocyte Esterase Negative (Negative) Independent Interpretation I performed an independent interpretation of an: CT Scan Radiology Impression Discussion of test interpretation with radiology: I have reviewed the radiologist's reading. Core Measures AMI core measures followed: Yes Measure exclusions: not indicated Critical Care Time Critical Care Time Critical Care Time: No Discharge Plan Discharge Clinical Impression: Acute left lower quadrant pain, Nausea Patient Disposition: Home, Self-Care Instructions: Abdominal Pain (ED), Acute Nausea and Vomiting (ED) Additional Instructions: Take your medications as prescribed. If you were prescribed antibiotics today, it is important that you take your medication to their entirety, do not skip any doses, do not finish them early. Follow-up with your primary care provider this week. You can speak to your PCP about pain management options. Return to the emergency department with new or worsening symptoms. Such as fevers, chills, chest pain, shortness of breath, nausea, vomiting, dizziness, headache, vision changes, lethargy In case of emergency call 911 Michael has been sent to your pharmacy for nausea and vomiting, please take this as prescribed, do not take more than the prescribed dose as this can lead to cardiac abnormalities. ?CT/CT abdomen pelvis w IV con IMPRESSION: ? 1. There is mild diverticulosis, without acute diverticulitis. No bowel obstruction, free intraperitoneal air or abscess is seen. The vermiform appendix is not identified. ? 2. There is stable moderate dilatation of the left biliary tree. The gallbladder is surgically absent. ? 3. There is a small hiatus hernia. ? 4. Very small abdominal wall hernia defects are noted. ? 5. There is prostatomegaly. ? 6. There are degenerative changes of the thoracolumbar spine. No acute or aggressive osseous finding is noted. ? Fleischner guidelines were followed. Prescriptions: New lidocaine 5 % adhesive patch,medicated 1 patch topical DAILY PRN (Reason: pain) Qty: 15 0RF Rx Instructions: leave on most painful area for up to 12 hrs ondansetron 4 mg tablet,disintegrating 4 mg PO Q6H PRN (Reason: nausea and vomiting) Qty: 14 0RF No Action metoprolol tartrate 100 mg tablet 100 mg PO BID 90 Days Qty: 180 3RF aspirin [Adult Low Dose Aspirin] 81 mg tablet,delayed release (DR/EC) 81 mg PO DAILY amlodipine [Norvasc] 10 mg tablet 10 mg PO DAILY rosuvastatin [Crestor] 40 mg tablet 40 mg PO BEDTIME oxycodone 10 mg Tablet 10 mg PO Q5H PRN (Reason: Moderate Pain (Scale Score 5-6)) divalproex [Depakote ER] 250 mg tablet extended release 24 hr 250 mg PO BEDTIME nitroglycerin [Nitrostat] 0.4 mg tablet, sublingual 0.4 mg sublingual Q5M PRN (Reason: chest pain) Rx Instructions: do not exceed 3 doses per episode cyclobenzaprine 10 mg tablet 1 tab PO BID PRN (Reason: Muscle Spasm) isosorbide mononitrate 30 mg tablet extended release 24 hr 30 mg PO DAILY ranolazine 1,000 mg tablet extended release 12 hr 1,000 mg PO BID sucralfate 1 gram Tablet 1 g PO QIDACHS Qty: 120 0RF pantoprazole [Protonix] 40 mg tablet,delayed release (DR/EC) 40 mg PO BID Qty: 60 0RF dicyclomine 10 mg capsule 10 mg PO TID PRN (Reason: abdominal discomfort) Qty: 20 0RF polyethylene glycol 3350 [Miralax] 17 gram/dose powder 17 g PO DAILY Qty: 119 0RF Eliquis 5 mg tablet 5 mg PO BID Hold Instructions: Resume on 09/17/22. ezetimibe [Zetia] 10 mg tablet 10 mg PO DAILY multivitamin [Daily Vitamin Formula] Tablet 1 tab PO DAILY lisinopril [Zestril] 10 mg tablet 10 mg PO DAILY primidone 250 mg tablet 250 mg PO BID Referrals: Name,MD Memo [Primary Care Provider] - 2 days [facility] [Provider Group] - 2 days Stand Alone Forms: Work/School Release
--- OUTSIDE RECORDS SUMMARY | 2022-11-13 20:26 | XMS_ITS ---
Author Name Jose Cruz Miranda Address [address] [place] [address] Organization Jose Cruz Miranda III, MD Address [address] [place] [address] Care Team Providers Care Speech Assistant Name Role Phone Jose Cruz Miranda [facility] [phone] PROBLEMS Type Condition ICD9-CM Code ECJ58-VL Code Onset Dates Condition Status SNOMED Code Problem Pacemaker Z95.0 Active 834926711 Problem Myocardial infarction, unspecified ID type, unspecified artery I21.9 Active 22478868 Problem GERD (gastroesophageal reflux disease) K21.9 Active 586253620 Problem Primary osteoarthritis of both hips M16.0 Active 112719061 Problem Syncope R55 Active 698881690 Problem Atherosclerotic heart disease of [place] coronary artery with unspecified angina pectoris I25.119 Active 002299153 Problem Tubular adenoma of colon D12.6 Active 240438833 Problem HTN (hypertension) I10 Active 52928 003 Problem Acute deep vein thrombosis (DVT) of proximal vein of left lower extremity I82.4Y2 Active Problem Tobacco dependence F17.200 Active 84775 005 Problem Primary osteoarthritis of left knee M17.12 Active 644890708 ALLERGIES Substance Reaction Event Type Date Status Tramadol Unknown Drug Allergy Mar, Active Bee Sting Unknown Drug Allergy Mar, Active Pollen Unknown Drug Allergy Mar, Active Indocin Unknown Drug Allergy Mar, Active ENCOUNTERS Encounter Location Date Diagnosis Jose Cruz Miradna III, MD [address] [place] [address] [place] [address] Jan, Acute deep vein thrombosis (DVT) of proximal vein of left lower extremity I82.4Y2 ; HTN (hypertension) I10 ; GERD (gastroesophageal reflux disease) K21.9 ; Pacemaker Z95.0 and Tobacco dependence F17.200 Jose Cruz Miranda III, MD [address] [place] [address] [address], [place] [address] 15 Dec, 2020 Acute deep vein thrombosis (DVT) of proximal vein of left lower extremity I82.4Y2 ; Tobacco dependence F17.200 ; Primary osteoarthritis of left knee M17.12 ; Primary osteoarthritis of both hips M16.0 ; Atherosclerotic heart disease of [place] coronary artery with unspecified angina pectoris I25.119 [...] Subscriber Name Subscriber Date of Group No MEDICAID [address] [place] [id number] MEDICAID self [place]les [place] [id number] MEDICARE NGS [address] [place] [address] MEDICARE NGS self Myles Tipton [id number]
--- OUTSIDE RECORDS SUMMARY | 2022-11-13 20:26 | XMS_ITS | Patient Health Record ---
Author Name Unknown Organization [facility] Care Team Providers Care Quick Mixer Operator Name Role Phone Rolly Herman [phone] PROBLEMS Type Condition ICD9-CM Code GRY12-HD Code Onset Dates Condition Status W/U Status Risk SNOMED Code Notes Problem Atheroscleros is of minto artery of both lower extremities, with unspecified presence of clinical manifestation I70.203 confirmed [id number] 2902 04808 ALLERGIES Allergen (clinical drug ingredient) Drug/Non Drug Allergy documented on EMR Reaction Allergy Type Onset Date Status indomethacin Indocin([facility] Code:[address]-33) Unknown Drug Allergy Active tramadol Ultram Unknown Drug Allergy Active enoxaparin Lovenox([facility] Code:[address]-79) Unknown Drug Allergy Active Bee Sting Unknown Drug Allergy Active ENCOUNTERS from 1955 to 2022-11-13 Encounter Location Date Provider Diagnosis [address] [address] Nov, Rolly Herman [address] [address] Aug, Rolly Herman Atherosclerosis of minto artery of both lower extremities, with unspecified presence of clinical manifestation I70.203 ; Tinea unguium B35.1 ; Pain in right toe(s) M79.674 and Pain in left toe(s) M79.[address] [address] May, Rolly Herman Atherosclerosis of minto artery of both lower extremities, with unspecified presence of clinical manifestation I70.203 ; Ingrowing nail L60.0 ; Tinea unguium B35.1 ; Pain in right toe(s) M79.674 and Pain in left toe(s) M79.675 [facility] [address] [place] [address] Feb, Rolly Virgil Achilles tendinitis, left leg M76.62 ; Pain of left heel M79.672 ; Tinea unguium B35.1 ; Pain in right toe(s) M79.674 and Pain in left toe(s) M79.675 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 No REASON FOR REFERRAL No Information VITAL SIGNS from 1955 to 2022-11-13 Height 5 ft 11 in in Aug, [...] 09/03 Hospitalization History Coronary artery disease involving minto coronary artery of minto heart with unstable angina pectoris Hospitalization History Cardiac Cath and Stent Hospitalization History [facility] [place] -Ugent Care painful L migel Ingrown? given antiboitics 01/08/22 Hospitalization History [facility] opedic-Drain left knee 3x between 5 weeks 2021 Hospitalization History [facility] [place] - AFib and c vijay at sametime- coded 2x CPR done 2 days 06/13/2022 MENTAL STATUS No Information ASSESSMENTS Encounter Date Diagnosis Assessment Notes Treatment Notes Treatment Clinical Notes Aug, Tinea unguium (ICD-1 0 - B35.1) Aug, Atherosclerosis of minto artery of both lower extremities, with unspecified presence of clinical manifestation (ICD-10 - I70.203) Aug, Pain in right toe(s) (ICD-10 - M79.674) Aug, Pain in left toe(s) (ICD-10 - M79.675) May, Ingrowing nail (ICD- 10 - L60.0) May, Atherosclerosis of minto artery of both lower extremities, with unspecified [...] THERAPY.pdf) Pending Tests Test Name Order Date [id number] NAIL, 6 OR MORE 2022-08-27 [id number] SKIN LESIONS, 2 TO 4 [id number] NAIL, 6 OR MORE 2022-05-28 35453-Szjovhom Plate 2022-05-28 [id number] SKIN LESIONS, 2 TO 4 [id number] NAIL, 6 OR MORE 2022-03-05 X ray : Foot, left 3V 2022-01-23 61546- Debride <25 sq cm 2022-01-23 48697 I&D ABSCESS- SIMPLE,SINGLE 2022-01 Next Appt Details Provider Name:Rolly Herman , 2022-11-29 11:15:00 AM, [address] [facility], [place], [address], Insurance Providers Payer Name Payer Address Payer Phone Insured Name Patient Relationship to Insured Coverage Start Date Coverage End Date Subscriber Number Group Number Medicare [facility] [address] [facility] [address] [place]les [place] Self - patient is the insured [id number]
[2022-11-13 20:45] LABS: MANUAL DIFF FLAG NO
[2022-11-13 20:46] LABS: Basophils Absolute Auto 0.1 X10*3/uL (0.0-0.2); Basophils Percent Auto 0.6 % (0-2); Eosinophils Absolute Auto 0.3 X10*3/uL (0.0-0.4); Eosinophils Percent Auto 2.9 % (0-4); Hematocrit 42.9 % (42.0-52.0); Hemoglobin 14.5 g/dl (14.0-18.0); Imm Gran Abs Auto 0.03 X10*3/uL (0.00-0.03); Imm Gran Pct Auto 0.3 % (0.0-0.4); Lymphocytes Absolute Auto 2.6 X10*3/uL (1.2-4.9); Mean Corpuscular HGB Conc 33.8 g/dl (31.0-36.0); Mean Corpuscular Volume 91.9 fL (80.0-98.0); Mean Platelet Volume 8.4 fL (9.4-12.4); Monocytes Absolute Auto 0.7 X10*3/uL (0.1-1.2); Monocytes Percent Auto 6.9 % (2-11); Neutrophils Absolute Auto 6.6 x10*3/uL (2.0-8.3); Neutrophils Percent Auto 64.3 % (45-73); Platelet Count 285 X10*3/uL (160-400); Red Blood Count 4.67 X10*6/uL (4.60-5.80); Red Cell Distribution Width 13.2 % (11.0-16.0); White Blood Count 10.3 X10*3/uL (4.8-10.8)
[2022-11-13 21:03] LABS: Alanine Aminotransferase 16 U/L (0-40); Albumin Level 4.2 g/dL (3.5-5.0); Alkaline Phosphatase 96 U/L (39-117); Anion Gap 15 (12-20); Aspartate Amino Transferase 15 U/L (5-37); Bilirubin Total 0.3 mg/dL (0.0-1.0); Blood Urea Nitrogen 27 mg/dL (9-16); Calcium 9.3 mg/dL (8.4-10.2); Carbon Dioxide 24 mmol/L (22-29); Chloride 104 mmol/L (96-108); Creatinine Clr Calc Pharmacy 85.4; Estimated Glomerular Filt Rate > 60; Glucose Random 176 mg/dL (60-115); Lipase 16 U/L (8-78); Potassium 4.1 mmol/L (3.3-5.1); Sodium 139 mmol/L (135-145)
--- NOTE | 2022-11-13 21:15 | PC.NURSE ---
Pt reports 10/10 intermittent LLQ & RUQ pain worsening today, with nausea, x 4 days. Pt states pain is sharp and cramping. Pt reports last normal BM was yesterday and today N/D. Pt tender to touch to lower quadrants, + bowel sounds x 4 quadrants. IV line placed, blood work collected and sent to lab. Pt ambulated to Ct scan independently with steady gait.
[2022-11-13] MEDS: iohexoL 350 MG/ML 100 ML INFUS..BTL IV (21:16)
[2022-11-13 21:21] VITALS: BP 163/102; PULSE 76; RESP 20; O2SAT 96
[2022-11-13 22:19] VITALS: RESP 18
[2022-11-13] MEDS: Morphine Sulfate 4 MG/ML CARTRIDGE IVPUSH (22:19)
[2022-11-13] MEDS: 0.9 % Sodium Chloride 1,000 ML 999 ML IV (22:25)
[2022-11-13 23:12] VITALS: BP 168/91; PULSE 67; RESP 18; TEMP 36.5; O2SAT 97
[2022-11-13] MEDS: fentaNYL citrate/PF 100 MCG/2 ML VIAL 25 MCG IVPUSH (23:14)
[2022-11-13 23:19] LABS: Appearance Urine Clear; Color Urine Yellow; Glucose Urine UA Negative (Negative); Leukocyte Esterase Urine Negative (Negative); Nitrite Urine Negative (Negative); PH 5.5 (5.0-9.0); Specific Gravity - Urine >= 1.030 (1.005-1.025); Urine Blood Negative (Negative); Urine Ketones Negative (Negative); Urine Protein Negative (Neg-Trace)
[2022-11-14] MEDS: fentaNYL citrate/PF 100 MCG/2 ML VIAL 25 MCG IVPUSH (00:01)
--- NOTE | 2022-11-14 00:06 | PC.NURSE ---
Pt initial response to new pain medication (Fentenyl) was positive, then pt ambulated to bathroom. On return, pt stated pain increased back to 8-9/10. Medicated per orders, plan to reevaluate. Provider aware.
== END 2022-11-14 00:47 | disposition home or self-care (01) ==
PROVIDERS: Physician Assistant; Emergency Provider Emergency Medicine; PCP Internal Medicine Geriatric Medicine
DX: R10.32 Left lower quadrant pain (principal); R11.0 Nausea; I48.0 Paroxysmal atrial fibrillation; Z95.0 Presence of cardiac pacemaker; Z87.891 Personal history of nicotine dependence; Z79.899 Other long term (current) drug therapy
CPT/HCPCS: 36415; 74177; 80053; 81003; 83690; 85025; 96361; 96374; 96375; 96376; 99284; J2270; J3010; Q9967

== ENCOUNTER 2022-12-03 12:05 | Outpatient (REF) | payer MEDICARE, MEDICAID, SELFPAY ==
--- NOTE | ~2022-12-03 | US_ITS ---
EXAMINATION: US VENOUS ULTRASOUND WITH DOPPLER LOWER EXTREMITY, LEFT CLINICAL INFORMATION: Previous left posterior tibial vein positive DVT, current swelling, rule out deep venous thrombus cirrhosis. COMPARISON: None available. TECHNIQUE: Ultrasound of the deep veins is performed from the hip to the calf with compression sonography and color and pulse Doppler assessment. Spectral analysis with color-flow imaging is performed. FINDINGS: There is normal venous compression and respiratory variation and augmented flow. The visualized common femoral vein, superficial femoral vein, profunda femoral vein, popliteal vein, and the trifurcation region shows no evidence of deep venous thrombosis. No left popliteal cyst. The subcutaneous soft tissues are unremarkable. If the patient's symptoms persist, followup ultrasound in 5 days 7 days might be of value to exclude proximal propagation from a non-visualized calf vein. US/US venous duplex LE IMPRESSION: No evidence for deep venous thrombosis in the visualized veins of the left lower extremity.
== END 2022-12-03 12:06 | disposition home or self-care (01) ==
LOC: HO.US 12:05
PROVIDERS: PCP Internal Medicine Geriatric Medicine; Visit Provider Student in an Organized Health Care Education/Training Program
DX: M79.605 Pain in left leg (principal)
CPT/HCPCS: 93971

== ENCOUNTER → 2022-12-09 09:28 | Outpatient (BNVA) | payer MEDICARE, MEDICAID, SELFPAY | PROVIDERS: PCP Internal Medicine Geriatric Medicine; Visit Provider Internal Medicine Gastroenterology | DX: R10.32 Left lower quadrant pain (principal); K57.90 Diverticulosis of intestine, part unspecified, without perforation or abscess without bleeding | CPT/HCPCS: 99212 ==

== ENCOUNTER → 2023-01-23 11:18 | Day surgery (SDC) | payer MEDICARE, MEDICAID, SELFPAY ==
[2023-01-21 14:26] VITALS: BMI 28.0
--- NOTE | 2023-01-22 10:38 | HO.ANESPROP2 ---
HPI - Anesthesia Eval Consult details Narrative: Cx'd DOS d/t high BPs 67yo M for Upper Endoscopy and Colonoscopy Pacer in situ (SSS) Eliquis for afib and hx dvt Last cardiology office visit 10/2022 with stable CAD PMFSH Active Problems Active Problems: All Active Problems (Updated 01/02/23 @ 14:03 by Linsey Sanchez MD) Sick sinus syndrome (Acute) Cerebral calcification (Acute) Achilles tendonitis (Acute) PAD (peripheral artery disease) (Acute) Osteoarthritis of right shoulder (Acute) Internal derangement of right shoulder (Acute) Atrial flutter (Acute) Pacemaker lead malfunction (Acute) Aspiration pneumonitis (Acute) Hypoxia (Acute) Choking episode (Acute) Elevated lactic acid level (Acute) Altered mental status (Acute) PAF (paroxysmal atrial fibrillation) (Acute) Choledocholithiasis (Acute) Elevated liver enzymes (Acute) Upper abdominal pain (Acute) Abnormal LFTs (Acute) Smoking (Acute) CAD (coronary artery disease) (Acute) Pacemaker (Acute ~05/2013) DVT (deep venous thrombosis) (Chronic) On anticoagulant therapy (Acute) Personal history of nicotine dependence (Acute) GERD (gastroesophageal reflux disease) (Acute) Past Medical History Medical History (Updated 01/27/23 @ 15:01 by Oren Mueller MD) Atherosclerotic cardiovascular disease Brain bleed Brain lesion CAD (coronary artery disease) COVID-19 vaccine administered DVT (deep venous thrombosis) Elevated cholesterol Esophagitis Essential hypertension GERD (gastroesophageal reflux disease) Headache History of chemotherapy Myocardial infarction Obstructive sleep apnea (~2018) On anticoagulant therapy Pacemaker (~05/2013) Personal history of nicotine dependence Psychotic disorder Seizures (~04/2020) Syncope Tremor Tubular adenoma of colon Family History Family History Father Heavy cigarette smoker Throat cancer Mother Heart disease Family history of problems with anesthesia: No Surgical History Surgical History History of appendectomy History of cardiac catheterization History of cholecystectomy History of colonoscopy (~09/2020) History of ERCP History of esophagogastroduodenoscopy (EGD) (~09/2020) History of permanent cardiac pacemaker placement (~05/2013) History of right knee surgery (~12/2013) History of spinal surgery History of total left knee replacement History of total right hip replacement (~06/2012) Hx of shoulder surgery Stented coronary artery History of Problems with Anesthesia: No Social History Social History Household Members: None Household Members Other:: shares house with a friend Housing: House Are you a primary patient centered care specialist to a significant other at home: No Do you presently have visiting nurse or other home services: No Alcohol intake: never Patient Tobacco Use Status: Former Tobacco user Quit Date: 5 months ago Tobacco use type: Cigarette Years Smoked: 8 +/- e-Cigarette/Vaping Use: Never Used Second Hand Smoke Exposure: No Advance Directives Date on File: 12/16/20 service: No Current occupational status: employed and retired Meds Allergies Allergy/AdvReac Type Severity Reaction Status Date / Time bee pollen [BEE STINGS] Allergy Severe ANAPHYLAXIS Verified 01/27/23 14:49 indomethacin [Indocin] Allergy Severe anaphylaxis Verified 01/27/23 14:49 tramadol [Ultram] Allergy Severe anaphylaxis Verified 01/27/23 14:49 fentanyl AdvReac Anxiety Verified 01/27/23 14:49 Home Medications Medication Instructions Recorded Confirmed Last Taken Type aspirin 81 mg tablet,delayed 81 mg PO DAILY 04/25/20 01/27/23 01/19/23 History release (Adult Low Dose Aspirin) rosuvastatin 40 mg tablet (Crestor) 40 mg PO BEDTIME chloestrol 04/25/20 01/27/23 06/18/21 History oxycodone 10 mg tablet 10 mg PO Q5H PRN Moderate Pain 04/26/20 01/27/23 06/19/21 History (Scale Score 5-6) divalproex 250 mg tablet,extended 250 mg PO BEDTIME 09/08/20 01/27/23 06/18/21 History release 24 hr (Depakote ER) ezetimibe 10 mg tablet (Zetia) 10 mg PO DAILY 10/24/20 01/27/23 06/19/21 History multivitamin (Daily Vitamin 1 tab PO DAILY 10/24/20 01/27/23 06/19/21 History Formula tablet) apixaban 5 mg tablet (Eliquis) 5 mg PO BID 01/08/21 01/27/23 01/19/23 History nitroglycerin 0.4 mg sublingual 0.4 mg sublingual Q5M PRN chest 11/29/21 01/27/23 Unknown History tablet (Nitrostat) pain primidone 250 mg tablet 250 mg PO BID 03/05/22 01/27/23 Unknown History cyclobenzaprine 10 mg tablet 1 tab PO BID PRN Muscle Spasm 06/13/22 01/27/23 Unknown History isosorbide mononitrate 30 mg 30 mg PO DAILY 09/10/22 01/27/23 Unknown History tablet,extended release 24 hr ranolazine 1,000 mg 1,000 mg PO BID 09/10/22 01/27/23 Unknown History tablet,extended release,12 hr lisinopril 5 mg tablet 5 mg PO DAILY 12/09/22 01/27/23 Unknown History dicyclomine 10 mg capsule 10 mg PO TID PRN abdominal pain 01/23/23 01/27/23 Unknown History Exam Exam Date and Time: January 22, 2023 1038 Height,Weight and Vital Signs: Height 5 ft 11 in Weight 91.172 kg Narrative Narrative: Cardiac Device Check 10/2022 Details: Pacemaker interrogated today.? Dual-chamber device, programmed in DDDR mode.? Battery status 2.5 years.? Normal lead parameters.? Atrial pacing 56%.? Ventricular pacing less than 1%.? Ventricular lead noise noted.? Overall, normal device function. ECHO 07/2022 Conclusions: - 1. Normal LV systolic function with asymmetric septal? hypertrophy with impaired relaxation filling pattern, subaortic? obstruction cannot be entirely ruled out ? 2. Increased gradient across aortic valve, possibility of early? mild aortic stenosis ? 3. Normal RV systolic pressure ? 4. No gross pericardial effusion ? ? EKG 06/2022 Vent. Rate : 100 BPM ? ? Atrial Rate : 100 BPM ?? P-R Int : 168 ms? QRS Dur : 120 ms ? ? QT Int : 396 ms ? ? ? P-R-T Axes : 017 025 007 degrees ?? QTc Int : 510 ms ? Normal sinus rhythm Possible Inferior infarct (cited on or before 29-NOV-2017) -could be normal variant Abnormal ECG When compared with ECG of 19-JUN-2021 14:11, Sinus rhythm has replaced Electronic atrial pacemaker Vent. rate has increased BY? 40 BPM QT has lengthened Assessment and Plan Assessment Anesthesia Assessment: Chart Reviewed Final Anesthetic Review Family History of Problems with Anesthesia: No History of Problems with Anesthesia: No
--- OUTSIDE RECORDS SUMMARY | 2023-01-23 11:19 | XMS_ITS | Patient Health Record ---
Author Name Unknown [facility] Address [address] [place] [address] Care Team Providers Care Management Development Specialist Name Role Phone Name Memo ARREDONDO Primary Care Provider Rolly Manzanares Unavailable [phone] ALLERGIES Allergen (clinical drug ingredient) Drug/Non Drug Allergy documented on EMR Reaction Allergy Type Onset Date Status indomethacin Indocin Unknown Drug Allergy Acti ve enoxaparin Lovenox Unknown Drug Allergy Active tramadol Ultram Unknown Drug Allergy Active Bee Sting Unknown Allergy Active REASON FOR REFERRAL No Information MEDICATIONS Medication SIG (Take, Route, Frequency, Duration) Notes Start Date End Date Status Multivitamin - 1 tablet Orally Once a day for 30 day(s) Active Nitroglycerin 0.4 MG Sublingual for 30 Active Lisinopril 10 MG 1 tablet Orally Once a day for 30 day(s) Active Metoprolol Tartrate 50 MG 1 tablet with food Orally Twice a day for 30 day(s) Active eliquis 5 mg Active Ezetimibe 10 MG 1 tablet Orally Once a day for 30 day(s) Active amLODIPine Besylate 10 MG 1 tablet Orall y Once a day for 30 day(s) Active Rosuvastatin Calcium 40 MG 1 tablet Oral ly Once a day for 30 day(s) Active Divalproex Sodium 250 MG 1 tablet Orally Once a day for 30 day(s) Active Antibiotic Not-Takin g Pantoprazole Sodium 40 MG 1 tablet Orall y Once a day for 30 day(s) Active Aspirin 81 MG 1 tablet Orally Once a day for 30 day(s) Active Ranolazine ER 1000 MG 1 tablet Orally Tw ice a day for 30 day(s) Active oxyCODONE HCl 10 MG 1 tablet as needed Orally every 6 hrs Active IMMUNIZATIONS Vaccine Route Administration Date Status Comme nts COVID-19 Moderna Vaccine Unknown 10/17/2021 Administered 1st 08/04/20 2nd 09/01/20 3rd 05/07/21 SOCIAL HISTORY Tobacco Use: Social History Observation Description Date Details (start date - stop date) Former Smoker NA - NA Sex Assigned At : Social History Observation Description Sex Assigned At Unknown Tobacco Use/Smoking Question Answer Notes Are you a: former smoker Additional Findings: Tobacco Non-User Current no n-smoker Alcohol Screen Question Answer Notes Did you have a drink containing alcohol in the p ast year? No Points 0 Interpretation Negative Tobacco use other than smoking: Question Answer Notes Are you an other tobacco user? No PROBLEMS Problem Type ICD Code Onset Dates Problem Status W/U Status Risk SNOMED Code Notes Problem Atherosclerosis of [place] artery of both lower extremities, with unspecified presence of clinical manifestation (I70.203) Active confirmed Atherosclerosis of [place] arteries of the extremities (449368823098210) Encounters Encounter Location Date Provider [facility] [address] [address] 01/23/2022 Rolly Herman Cellulitis of left t oe L03.032 ; 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 ; Achilles tendinitis, left leg M76.62 ; Pain of left heel M79.672 ; Calcaneal spur, left foot M77.32 ; 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674 and Pain in left toe(s) M79.[address] [facility] [address] 08/27/2022 Rolly Hillunier Atherosclerosis of alat[place] artery of both lower extremities, with unspecified presence of clinical manifestation I70.203 ; Tinea unguium B35.1 ; Pain in right toe(s) M79.674 and Pain in left toe(s) M79.[address] [address] 11/12/2022 [facility] [address] [address] 11/12/2022 [facility] [address] [address] 11/29/2022 Rolly Herman Atherosclerosis of al[place] artery of both lower extremities, with unspecified presence of clinical manifestation I70.203 ; Tinea unguium B35.1 ; Pain in right toe(s) M79.674 ; Pain in left toe(s) M79.675 ; Pain in left foot M79.672 ; Pain in left ankle and joints of left foot M25.572 ; Bursitis of left foot M77.52 and Osteoarthritis of midtarsal joint of left foot M19.072 ASSESSMENTS Encounter Date Diagnosis Assessment Notes Treatment Notes Treatment Clinical Notes 01/23/2022 Cellulitis of left t oe (ICD-10 - L03.032) 01/23/2022 Non-pressure chronic ulcer of other part of left foot limited to breakdown of skin (ICD-10 - L97.521) 03/05/2022 Achilles tendinitis, left leg (ICD-10 - M76.62) Patient Educated with: HEEL CORD STRETCHES.pdf (HEEL CORD STRETCHES.pdf) Patient Educated with: RICE THERAPY.pdf (RICE THERAPY.pdf) 03/05/2022 Pain of left heel (ICD-10 - M79.672) 05/28/2022 Ingrowing nail (ICD- 10 - L60.0) 05/28/2022 Atherosclerosis of [place] artery of both lower extremities, with unspecified presence of clinical manifestation (ICD-10 - I70.203) 08/27/2022 Tinea unguium (ICD-1 0 - B35.1) 08/27/2022 Atherosclerosis of al[place] artery of both lower extremities, with unspecified presence of clinical manifestation (ICD-10 - I70.203) 11/29/2022 Tinea unguium (ICD-1 0 - B35.1) 11/29/2022 Atherosclerosis of al[place] artery of both lower extremities, with unspecified presence of clinical manifestation (ICD-10 - I70.203) 11/29/2022 Pain in right toe(s) (ICD-10 - M79.674) 08/27/2022 Pain in right toe(s) (ICD-10 - M79.674) 03/05/2022 Tinea unguium (ICD-1 0 - B35.1) 05/28/2022 Tinea unguium (ICD-1 0 - B35.1) 01/23/2022 Achilles tendinitis, left leg (ICD-10 - M76.62) Patient Educated with: HEEL CORD STRETCHES.pdf (HEEL CORD STRETCHES.pdf) Patient Educated with: RICE THERAPY.pdf (RICE THERAPY.pdf) 01/23/2022 Pain of left heel (ICD-10 - M79.672) 03/05/2022 Pain in right toe(s) (ICD-10 - M79.674) 08/27/2022 Pain in left toe(s) (ICD-10 - M79.675) 05/28/2022 Pain in right toe(s) (ICD-10 - M79.674) 11/29/2022 Pain in left toe(s) (ICD-10 - M79.675) 11/29/2022 Pain in left foot (ICD-10 - M79.672) 03/05/2022 Pain in left toe(s) (ICD-10 - M79.675) 05/28/2022 Pain in left toe(s) (ICD-10 - M79.675) 01/23/2022 Calcaneal spur, left foot (ICD-10 - M77.32) 01/23/2022 Acquired Dinh's deformity of left heel (ICD-10 - M92.62) 11/29/2022 Pain in left ankle a nd joints of left foot (ICD-10 - M25.572) 11/29/2022 Bursitis of left danilo t (ICD-10 - M77.52) 01/23/2022 Short Achilles tendo n (acquired), left ankle (ICD-10 - M67.02) 11/29/2022 Osteoarthritis of midtarsal joint of left foot (ICD-10 - M19.072) 01/23/2022 Other 03/05/2022 Other PLAN OF TREATMENT Pending Test Test Name Order Date X ray : Foot, left 3V 01/23/2022 X ray : Foot, left 3V 11/29/2022 52075-INUDKXJ NAIL, 6 OR MORE 03/05/2022 36222-BCZHYHH NAIL, 6 OR MORE 05/28/2022 62644-EEXCALB NAIL, 6 OR MORE 08/27/2022 94316-[id number] NAIL, 6 OR MORE 11/29/2022 72069-Agfrspms Plate 05/28/2022 76368- Debride <25 sq cm 01/23/2022 71991 I&D ABSCESS- SIMPLE,SINGLE 022 98750-PEUI SKIN LESIONS, 2 TO 4 05/28/20 22 89673-USMK SKIN LESIONS, 2 TO 4 11/30/19 23 79941-PFSE SKIN LESIONS, 2 TO 4 08/28/19 Next Appt Details Provider Name:Rolly Herman , 02/21/2023 12:30:00 PM, [address] [facility], [place], [address], Insurance Providers Payer Name Payer Address Payer Phone Subscriber Number Group Number Insured Name Patient Relationship to Insured Coverage Start Date Coverage End Date Medicare National [employer] [address] [place] [address] [id number] Myles [place] Self - patient is the insured MEDICAL (GENERAL) HISTORY Medical History History ICD Code Angina Arthritis, osteo Back,Hip,and Knee pain Gall bladder problems Gout Heart disease High blood pressure nerve disorder Reflux ( GERD) Stroke Myocardial infarction Deep vein thrombosis Sleep apnea Seizures Gasteritis Headaches tremors Pacemaker Surgical History Surgery Date(Month/Year) back surgery x17 left knee replacement hip surgery, right 01/06/2017 gall bladder Heart stent DVT x3 left leg tumor cardiac catheterization 01/2020 lumbosacral spine surgery 09/04/2015 Hospitalization History Reason Date(Month/Year) Coronary artery disease invo lving alatna coronary artery of al[place] heart with unstable angina pectoris Cardiac Cath and Stent [facility] [place] painful L migel Ingrown? g iven antiboitics 01/08/22 [facility] left knee 3 x between 5 weeks 2021 [facility] [place] - AFib and choke at sametime- coded 2x CPR done 2 days 06/13/2022
--- OUTSIDE RECORDS SUMMARY | 2023-01-23 11:20 | XMS_ITS ---
Author Name Jose Cruz Miranda Address [address] [place] [address] Organization Jose Cruz Miranda III, MD Address [address] [place] [address] Care Team Providers Care Leverman Name Role Phone Jose Cruz Miranda [facility] [phone] PROBLEMS Type Condition ICD9-CM Code GOS65-KT Code Onset Dates Condition Status SNOMED Code Problem Pacemaker Z95.0 Active 462743758 Problem Myocardial infarction, unspecified LA type, unspecified artery I21.9 Active 61815593 Problem GERD (gastroesophageal reflux disease) K21.9 Active 038168799 Problem Primary osteoarthritis of both hips M16.0 Active 986240067 Problem Syncope R55 Active 397977216 Problem Atherosclerotic heart disease of blackfeet coronary artery with unspecified angina pectoris I25.119 Active 965477722 Problem Tubular adenoma of colon D12.6 Active 215126177 Problem HTN (hypertension) I10 Active 08991 003 Problem Acute deep vein thrombosis (DVT) of proximal vein of left lower extremity I82.4Y2 Active Problem Tobacco dependence F17.200 Active 18765 005 Problem Primary osteoarthritis of left knee M17.12 Active 674264267 ALLERGIES Substance Reaction Event Type Date Status Bee Sting Unknown Drug Allergy Mar, Active Pollen Unknown Drug Allergy Mar, Active Tramadol Unknown Drug Allergy Mar, Active Indocin Unknown Drug Allergy Mar, Active ENCOUNTERS Encounter Location Date Diagnosis Jose Cruz Miranda III, MD [address] [place] [address] [place] [address] Jan, Acute deep vein thrombosis (DVT) of proximal vein of left lower extremity I82.4Y2 ; HTN (hypertension) I10 ; GERD (gastroesophageal reflux disease) K21.9 ; Pacemaker Z95.0 and Tobacco dependence F17.200 Jose Cruz Miranda III, MD [address] [place] [address] [address], [place] [address] 15 Dec, 2020 Acute deep vein thrombosis (DVT) of proximal vein of left lower extremity I82.4Y2 ; Tobacco dependence F17.200 ; Primary osteoarthritis of left knee M17.12 ; Primary osteoarthritis of both hips M16.0 ; Atherosclerotic heart disease of blackfeet coronary artery with unspecified angina pectoris I25.119 ; HTN (hypertension) I10 ; Pacemaker Z95.0 and Myocardial infarction, unspecified LA type, unspecified artery I21.9 IMMUNIZATIONS No Known [...] NGS [address] [place] [address] MEDICARE NGS self Myles Tipton [id number] MEDICAID [address] [facility] [id number] MEDICAID self Myles Tipton [id number]
[2023-01-23 12:17] VITALS: BMI 28.6
--- NOTE | 2023-01-23 12:27 | P.HPSUR_ITS ---
Pre-Procedural Eval Section A Date of Service: 01/23/23 Section B Chief Complaint: Left lower quadrant pain,Diverticulosis of intesti Relevant Family History (Specify if Yes): No Relevant Social History: None Present Medications: see Short Stay Collaborative assessment Medical History: Significant History (Atherosclerotic cardiovascular disease Brain bleed Brain lesion CAD (coronary artery disease) COVID-19 vaccine administered DVT (deep venous thrombosis) Esophagitis Essential hypertension GERD (gastroesophageal reflux disease) Headache History of chemotherapy Myocardial infarction Obstructive sleep ) History of Previous Operations: Relevant previous surgery/procedure and date(s) (History of appendectomy History of cardiac catheterization History of cholecystectomy History of colonoscopy (~09/2020) History of ERCP History of esophagogastroduodenoscopy (EGD) (~09/2020) History of permanent cardiac pacemaker placement (~05/2013) History of right knee surgery (~12/2013) History ) Allergies: Allergies Allergy/AdvReac Type Severity Reaction Status Date / Time bee pollen [BEE STINGS] Allergy Severe ANAPHYLAXIS Verified 12/09/22 09:33 indomethacin [Indocin] Allergy Severe anaphylaxis Verified 12/09/22 09:33 tramadol [Ultram] Allergy Severe anaphylaxis Verified 12/09/22 09:33 Review of Systems Sugical H&P ROS: Negative: Constitution, Cardiovascular, Respiratory, Neurological, Psychiatric, Hem-Onc, Allergic/Immunologic, Gastrointestinal, Gen itourinary, Musculoskeletal, Integumentary, Endocrine and Eyes/Ears/Nose/Throat Exam Surgical H&P Exam: Normal: HEENT, Normal: Heart, Normal: Lungs, Normal: Extremities, Normal: Abdomen, Normal: Skin and Normal: Neurological Plan Diagnosis/Plan: Unchanged I have reviewed the history and physical and performed a pertinent physical examination on my patient. No changes have occurred unless specified. Time Spent With Patient Time: Total time managing care of this patient today ____ minutes.
[2023-01-23 12:41] VITALS: BP 187/109; PULSE 60; RESP 16; TEMP 36.2; O2SAT 97
[2023-01-23] MEDS: Lactated Ringers 1,000 ML 50 ML IVCONT (12:43)
--- NOTE | 2023-01-23 13:41 | PC.NURSE ---
mds all made aware of elevated bp's. at bedside and lights shut off and reassured pt to relax and bp would be rechecked. bp with manual is 204/102 and 198/100
--- NOTE | 2023-01-23 13:58 | PC.NURSE ---
procedures cancelled due to bp's continuing to be high. manual bp's 198/100, 208/108, 206/108. carlos at bedside and given instructions to monitor bps at home and if any cardiac sx to get checked out immediately. pt to let his superintendent nonselling know.d/c'd home
== END ==
PROVIDERS: PCP Internal Medicine Geriatric Medicine; Visit Provider Internal Medicine Gastroenterology
DX: R10.32 Left lower quadrant pain (principal); Z53.09 Procedure and treatment not carried out because of other contraindication; I10 Essential (primary) hypertension; I48.91 Unspecified atrial fibrillation; Z79.01 Long term (current) use of anticoagulants

== ENCOUNTER 2023-01-27 14:26 | Outpatient (AMB) | payer MEDICARE, MEDICAID, SELFPAY ==
[2023-01-27 14:47] VITALS: BP 118/80; PULSE 69; BMI 28.8
--- NOTE | 2023-01-27 14:47 | MHC.OFFVIS ---
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 Accompanied by: Self / Same As Patient Allergies bee pollen [BEE STINGS] Allergy (Severe, Verified 01/27/23 14:49) ANAPHYLAXIS indomethacin [Indocin] Allergy (Severe, Verified 01/27/23 14:49) anaphylaxis tramadol [Ultram] Allergy (Severe, Verified 01/27/23 14:49) anaphylaxis fentanyl Adverse Reaction (Verified 01/27/23 14:49) Anxiety Medication List - Last Reconciled 01/27/23 by Oren Mueller MD amlodipine 5 mg PO DAILY apixaban (Eliquis) 5 mg PO BID aspirin (Adult Low Dose Aspirin) 81 mg PO DAILY cyclobenzaprine 1 tab PO BID PRN dicyclomine 10 mg PO TID PRN divalproex ER (Depakote ER) 250 mg PO BEDTIME ezetimibe (Zetia) 10 mg PO DAILY hyoscyamine sulfate 0.125 mg PO BID-QID PRN isosorbide mononitrate ER 30 mg PO DAILY lidocaine 5% 1 patch topical DAILY PRN lisinopril 5 mg PO DAILY metoprolol tartrate 100 mg PO BID 90 days multivitamin (Daily Vitamin Formula tablet) 1 tab PO DAILY nitroglycerin (Nitrostat) 0.4 mg sublingual Q5M PRN ondansetron 4 mg PO Q6H PRN oxycodone 10 mg PO Q5H PRN pantoprazole (Protonix) 40 mg PO BID primidone 250 mg PO BID ranolazine ER 1,000 mg PO BID rosuvastatin (Crestor) 40 mg PO BEDTIME HPI HPI Comments History of Present Illness Details Myles returns for follow-up. Recently, he was supposed to undergo GI workup with EGD/colonoscopy. However, blood pressures were very high and hence it was not completed. Otherwise, history of coronary disease and multiple cardiac catheterizations. In 2016 had balloon angioplasty of the distal LAD. Then inferior STEMI in 2017 treated by JONATHAN to proximal RPL. On and off chest pains leading to several more catheterizations. Then underwent stenting in the distal RCA, distal to the prior stent. Then, also got diagnosed with DVT and started Eliquis. Then was getting additional chest pains, leading to one further cardiac catheterization in 2021. No new interventions. He states that he actually feels fine. Absolutely no cardiac symptoms whatsoever. Today's blood pressure seems to be in the normal range. [facility] Medical History (Updated 01/27/23 @ 15:01 by Oren Mueller MD) Atherosclerotic cardiovascular disease Brain bleed Brain lesion CAD (coronary artery disease) COVID-19 vaccine administered DVT (deep venous thrombosis) Elevated cholesterol Esophagitis Essential hypertension GERD (gastroesophageal reflux disease) Headache History of chemotherapy Myocardial infarction Obstructive sleep apnea (~2018) On anticoagulant therapy Pacemaker (~05/2013) Personal history of nicotine dependence Psychotic disorder Seizures (~04/2020) Syncope Tremor Tubular adenoma of colon Surgical History History of appendectomy History of cardiac catheterization History of cholecystectomy History of colonoscopy (~09/2020) History of ERCP History of esophagogastroduodenoscopy (EGD) (~09/2020) History of permanent cardiac pacemaker placement (~05/2013) History of right knee surgery (~12/2013) History of spinal surgery History of total left knee replacement History of total right hip replacement (~06/2012) Hx of shoulder surgery Stented coronary artery Family History Father Heavy cigarette smoker Throat cancer Mother Heart disease Social History Household Members: None Household Members Other:: shares house with a friend Housing: House Are you a primary reservoir caretaker to a significant other at home: No Do you presently have visiting nurse or other home services: No Alcohol intake: never Patient Tobacco Use Status: Former Tobacco user Quit Date: 5 months ago Tobacco use type: Cigarette Years Smoked: 8 +/- e-Cigarette/Vaping Use: Never Used Second Hand Smoke Exposure: No Advance Directives Date on File: 12/16/20 service: No Current occupational status: employed and retired Review of Systems Const Denies weakness ENT Denies dizziness Card Denies chest pain, Denies chest pain with activity, Denies syncope, Denies rapid heart rate, Denies pedal edema, Denies edema, Denies leg edema, Denies lightheadedness, Denies palpitations, Denies dyspnea, Denies dyspnea on exertion and Denies orthopnea Resp Denies cough, Denies dyspnea and Denies dyspnea on exertion GI Denies hematochezia and Denies change in stool character Musc Denies abnormal gait, Denies muscle cramps, Denies muscle weakness, Denies numbness, Denies radiating pain into limb and Denies tingling Neuro Denies abnormal gait, Denies dizziness, Denies syncope, Denies numbness, Denies tingling and Denies weakness Endo Denies palpitations Physical Exam Vital Signs: Last Vital Signs Pulse 69 01/27/23 14:47 BP 118/80 01/27/23 14:47 BMI result Body Mass Index 28.8 Const General: comfortable and no acute distress Orientation/consciousness: patient oriented x3 HEENT Other: Unremarkable Head: Yes normal to inspection Neck Neck: Yes normal visual inspection Chest Chest palpation & inspection: normal inspection of the chest Resp Auscultation: clear to auscultation bilaterally Cardio Palpation: normal PMI Heart sounds: S1 normal heart sound present, S2 normal heart sound present, no gallops, no murmurs and no rubs GI Palpation (GI): Soft to palpation Back/Spine/Pelvis Other: unremarkable Skin General skin exam: no rashes or lesions noted Neuro General: patient oriented x3 Extrem General: Yes normal to inspection Psych Mental Status: mental status grossly normal Assessment & Plan Assessment & Plan (1) Preoperative cardiovascular examination: Code(s): Z01.810 - Encounter for preprocedural cardiovascular examination Plan: Plans for EGD/colonoscopy noted. May proceed as planned. Intermediate cardiac risk. Blood pressure medications have been adjusted. Advised to take on the morning of procedure. (2) Atherosclerotic cardiovascular disease: Code(s): I25.10 - Atherosclerotic heart disease of [place] coronary artery without angina pectoris Plan: Based on the most recent cardiac catheterization from 2021, no new interventions. Stress MIBI from [facility] 11/2020-mild fixed defect in the basal to mid inferolateral wall which may be from myocardial scar or attenuation artifact, but no reversible defects to suggest ischemia. Continue his current meds including metoprolol, long-acting nitrates, ranolazine. (3) Essential hypertension: Code(s): I10 - Essential (primary) hypertension Plan: Due to recent blood pressure issues, increase amlodipine from 5 mg to 10 mg daily. Discussed with patient. (4) Sick sinus syndrome: Code(s): I49.5 - Sick sinus syndrome Plan: Status post pacemaker placement. (5) Atrial flutter: Code(s): I48.92 - Unspecified atrial flutter Plan: Remote monitoring had suggested brief episodes of atrial fibrillation/flutter. Continue beta-blockers and anticoagulation. (6) Pacemaker lead malfunction: Code(s): T82.110A - Breakdown (mechanical) of cardiac electrode, initial encounter Plan: He does have ventricular lead noise on device interrogation but minimal ventricular pacing. To be followed. At time of generator change, possible lead revision based on EP recommendations. (7) Smoking: Code(s): F17.200 - Nicotine dependence, unspecified, uncomplicated Plan: He has stop smoking for some time now. Hopefully, we can keep it that way. Medications: New amlodipine 10 mg PO DAILY 90 tabs 3RF Coding Level of Care Code Est Pt Level 4 (74912) Diagnoses Preoperative cardiovascular examination Z01.810 Atherosclerotic cardiovascular disease I25.10 Essential hypertension I10 Sick sinus syndrome I49.5 Atrial flutter I48.92 Pacemaker lead malfunction T82.110A Smoking F17.200
== END 2023-01-27 15:21 | disposition home or self-care (01) ==
PROVIDERS: PCP Internal Medicine Geriatric Medicine; Referring Provider Internal Medicine Geriatric Medicine; Visit Provider Internal Medicine
DX: Z01.810 Encounter for preprocedural cardiovascular examination (principal); I25.10 Atherosclerotic heart disease of native coronary artery without angina pectoris; I10 Essential (primary) hypertension; I49.5 Sick sinus syndrome; I48.92 Unspecified atrial flutter; T82.110A Breakdown (mechanical) of cardiac electrode, initial encounter; F17.200 Nicotine dependence, unspecified, uncomplicated
CPT/HCPCS: 99214

== ENCOUNTER → 2023-01-27 14:26 | Outpatient (BNVA) | payer MEDICARE, MEDICAID, SELFPAY | PROVIDERS: PCP Internal Medicine Geriatric Medicine; Referring Provider Internal Medicine Geriatric Medicine; Visit Provider Internal Medicine | DX: I10 Essential (primary) hypertension (principal); I25.10 Atherosclerotic heart disease of native coronary artery without angina pectoris; I49.5 Sick sinus syndrome; I48.92 Unspecified atrial flutter; T82.110A Breakdown (mechanical) of cardiac electrode, initial encounter; Z98.890 Other specified postprocedural states; Z95.0 Presence of cardiac pacemaker; Z95.5 Presence of coronary angioplasty implant and graft; Z79.891 Long term (current) use of opiate analgesic | CPT/HCPCS: 99212 ==

== ENCOUNTER 2023-03-04 11:38 | Day surgery (SDC) | payer MEDICARE, MEDICAID, SELFPAY ==
--- NOTE | 2023-03-03 12:03 | P.CONAN_ITS ---
Documented by User: Fern Herndon NP 03/03/23 12:12 HPI - Anesthesia Eval Consult details Narrative: 67yo M for Upper Endoscopy and Colonoscopy Cx'd 01/2023 DOS d/t high BPs. Subsequently seen by cardiology. BP meds adjusted and cleared for procedure Pacer in situ (SSS) Eliquis for afib and hx dvt Last cardiology office visit 10/2022 with stable CAD PMFSH Active Problems Active Problems: All Active Problems (Updated 01/27/23 @ 15:01 by Oren Mueller MD) Preoperative cardiovascular examination (Acute) Sick sinus syndrome (Acute) Cerebral calcification (Acute) Achilles tendonitis (Acute) PAD (peripheral artery disease) (Acute) Osteoarthritis of right shoulder (Acute) Internal derangement of right shoulder (Acute) Atrial flutter (Acute) Pacemaker lead malfunction (Acute) Aspiration pneumonitis (Acute) Hypoxia (Acute) Choking episode (Acute) Elevated lactic acid level (Acute) Altered mental status (Acute) PAF (paroxysmal atrial fibrillation) (Acute) Choledocholithiasis (Acute) Elevated liver enzymes (Acute) Upper abdominal pain (Acute) Abnormal LFTs (Acute) Smoking (Acute) CAD (coronary artery disease) (Acute) Pacemaker (Acute ~05/2013) DVT (deep venous thrombosis) (Chronic) On anticoagulant therapy (Acute) Personal history of nicotine dependence (Acute) GERD (gastroesophageal reflux disease) (Acute) Past Medical History Medical History Elevated cholesterol History of chemotherapy Obstructive sleep apnea (~2018) On anticoagulant therapy Personal history of nicotine dependence DVT (deep venous thrombosis) Essential hypertension Tubular adenoma of colon COVID-19 vaccine administered Seizures (~04/2020) GERD (gastroesophageal reflux disease) Esophagitis Atherosclerotic cardiovascular disease Brain lesion Psychotic disorder Syncope Headache Myocardial infarction Pacemaker (~05/2013) Tremor Brain bleed CAD (coronary artery disease) Family History Family History Father Heavy cigarette smoker Throat cancer Mother Heart disease Family history of problems with anesthesia: No Surgical History Surgical History Hx of shoulder surgery History of total left knee replacement History of ERCP History of spinal surgery History of colonoscopy (~09/2020) History of right knee surgery (~12/2013) History of total right hip replacement (~06/2012) History of cholecystectomy History of cardiac catheterization History of permanent cardiac pacemaker placement (~05/2013) History of esophagogastroduodenoscopy (EGD) (~09/2020) History of appendectomy Stented coronary artery History of Problems with Anesthesia: No Social History Social History Household Members: None Household Members Other:: shares house with a friend Housing: House Are you a primary respiratory care technician to a significant other at home: No Do you presently have visiting nurse or other home services: No Alcohol intake: never Patient Tobacco Use Status: Former Tobacco user Quit Date: 7 months Tobacco use type: Cigarette Years Smoked: 8 +/- e-Cigarette/Vaping Use: Never Used Second Hand Smoke Exposure: No Use of substances other than those prescribed or required for medical reasons: No Are you DNR?: No Advance Directives: No Advance Directives Information Provided: Yes Advance Directives Date on File: 12/16/20 service: No Current occupational status: employed and retired Meds Allergies Allergy/AdvReac Type Severity Reaction Status Date / Time bee pollen [BEE STINGS] Allergy Severe ANAPHYLAXIS Verified 01/27/23 14:49 indomethacin [Indocin] Allergy Severe anaphylaxis Verified 01/27/23 14:49 tramadol [Ultram] Allergy Severe anaphylaxis Verified 01/27/23 14:49 fentanyl AdvReac Anxiety Verified 01/27/23 14:49 Home Medications Medication Instructions Recorded Confirmed Last Taken Type aspirin 81 mg tablet,delayed 81 mg PO DAILY 04/25/20 01/27/23 01/19/23 History release (Adult Low Dose Aspirin) rosuvastatin 40 mg tablet (Crestor) 40 mg PO BEDTIME chloestrol 04/25/20 01/27/23 06/18/21 History oxycodone 10 mg tablet 10 mg PO Q5H PRN Moderate Pain 04/26/20 01/27/23 06/19/21 History (Scale Score 5-6) divalproex 250 mg tablet,extended 250 mg PO BEDTIME 09/08/20 01/27/23 03/04/23 History release 24 hr (Depakote ER) ezetimibe 10 mg tablet (Zetia) 10 mg PO DAILY 10/24/20 01/27/23 06/19/21 History multivitamin (Daily Vitamin 1 tab PO DAILY 10/24/20 01/27/23 06/19/21 History Formula tablet) apixaban 5 mg tablet (Eliquis) 5 mg PO BID 01/08/21 01/27/23 01/19/23 History nitroglycerin 0.4 mg sublingual 0.4 mg sublingual Q5M PRN chest 11/29/21 01/27/23 Unknown History tablet (Nitrostat) pain primidone 250 mg tablet 250 mg PO BID 03/05/22 01/27/23 Unknown History cyclobenzaprine 10 mg tablet 1 tab PO BID PRN Muscle Spasm 06/13/22 01/27/23 Unknown History isosorbide mononitrate 30 mg 30 mg PO DAILY 09/10/22 01/27/23 Unknown History tablet,extended release 24 hr ranolazine 1,000 mg 1,000 mg PO BID 09/10/22 01/27/23 Unknown History tablet,extended release,12 hr lisinopril 5 mg tablet 5 mg PO DAILY 12/09/22 01/27/23 Unknown History dicyclomine 10 mg capsule 10 mg PO TID PRN abdominal pain 01/23/23 01/27/23 Unknown History Exam Exam Date and Time: March 03, 2023 1203 Pertinent Lab Results Pertinent Lab Results: Laboratory Tests 11/13/22 20:41 WBC 10.3 Hgb 14.5 Hct 42.9 Plt Count 285 Sodium 139 Potassium 4.1 Chloride 104 Carbon Dioxide 24 BUN 27 H Creatinine 0.94 Narrative Narrative: Cardiac Device Check 10/2022 Details: Pacemaker interrogated today.? Dual-chamber device, programmed in DDDR mode.? Battery status 2.5 years.? Normal lead parameters.? Atrial pacing 56%.? Ventricular pacing less than 1%.? Ventricular lead noise noted.? Overall, normal device function. ECHO 07/2022 Conclusions: - 1. Normal LV systolic function with asymmetric septal? hypertrophy with impaired relaxation filling pattern, subaortic? obstruction cannot be entirely ruled out ? 2. Increased gradient across aortic valve, possibility of early? mild aortic stenosis ? 3. Normal RV systolic pressure ? 4. No gross pericardial effusion ? ? EKG 06/2022 Vent. Rate : 100 BPM ? ? Atrial Rate : 100 BPM ?? P-R Int : 168 ms? QRS Dur : 120 ms ? ? QT Int : 396 ms ? ? ? P-R-T Axes : 017 025 007 degrees ?? QTc Int : 510 ms ? Normal sinus rhythm Possible Inferior infarct (cited on or before 29-NOV-2017) -could be normal variant Abnormal ECG When compared with ECG of 19-JUN-2021 14:11, Sinus rhythm has replaced Electronic atrial pacemaker Vent. rate has increased BY? 40 BPM QT has lengthened Assessment and Plan Assessment Anesthesia Assessment: Chart Reviewed Final Anesthetic Review Family History of Problems with Anesthesia: No History of Problems with Anesthesia: No Documented by User: Sangeeta Escobar MD 03/04/23 12:56 PMFSH Past Medical History Medical History Elevated cholesterol History of chemotherapy Obstructive sleep apnea (~2018) On anticoagulant therapy Personal history of nicotine dependence DVT (deep venous thrombosis) Essential hypertension Tubular adenoma of colon COVID-19 vaccine administered Seizures (~04/2020) GERD (gastroesophageal reflux disease) Esophagitis Atherosclerotic cardiovascular disease Brain lesion Psychotic disorder Syncope Headache Myocardial infarction Pacemaker (~05/2013) Tremor Brain bleed CAD (coronary artery disease) Family History Family History Father Heavy cigarette smoker Throat cancer Mother Heart disease Surgical History Surgical History Hx of shoulder surgery History of total left knee replacement History of ERCP History of spinal surgery History of colonoscopy (~09/2020) History of right knee surgery (~12/2013) History of total right hip replacement (~06/2012) History of cholecystectomy History of cardiac catheterization History of permanent cardiac pacemaker placement (~05/2013) History of esophagogastroduodenoscopy (EGD) (~09/2020) History of appendectomy Stented coronary artery Social History Social History Household Members: None Household Members Other:: shares house with a friend Housing: House Are you a primary respiratory care technician to a significant other at home: No Do you presently have visiting nurse or other home services: No Alcohol intake: never Patient Tobacco Use Status: Former Tobacco user Quit Date: 7 months Tobacco use type: Cigarette Years Smoked: 8 +/- e-Cigarette/Vaping Use: Never Used Second Hand Smoke Exposure: No Use of substances other than those prescribed or required for medical reasons: No Are you DNR?: No Advance Directives: No Advance Directives Information Provided: Yes Advance Directives Date on File: 12/16/20 service: No Current occupational status: employed and retired Meds Allergies Allergy/AdvReac Type Severity Reaction Status Date / Time bee pollen [BEE STINGS] Allergy Severe ANAPHYLAXIS Verified 01/27/23 14:49 indomethacin [Indocin] Allergy Severe anaphylaxis Verified 01/27/23 14:49 tramadol [Ultram] Allergy Severe anaphylaxis Verified 01/27/23 14:49 fentanyl AdvReac Anxiety Verified 01/27/23 14:49 Home Medications Medication Instructions Recorded Confirmed Last Taken Type aspirin 81 mg tablet,delayed 81 mg PO DAILY 04/25/20 01/27/23 01/19/23 History release (Adult Low Dose Aspirin) rosuvastatin 40 mg tablet (Crestor) 40 mg PO BEDTIME chloestrol 04/25/20 01/27/23 06/18/21 History oxycodone 10 mg tablet 10 mg PO Q5H PRN Moderate Pain 04/26/20 01/27/23 06/19/21 History (Scale Score 5-6) divalproex 250 mg tablet,extended 250 mg PO BEDTIME 09/08/20 01/27/23 03/04/23 History release 24 hr (Depakote ER) ezetimibe 10 mg tablet (Zetia) 10 mg PO DAILY 10/24/20 01/27/23 06/19/21 History multivitamin (Daily Vitamin 1 tab PO DAILY 10/24/20 01/27/23 06/19/21 History Formula tablet) apixaban 5 mg tablet (Eliquis) 5 mg PO BID 01/08/21 01/27/23 01/19/23 History nitroglycerin 0.4 mg sublingual 0.4 mg sublingual Q5M PRN chest 11/29/21 01/27/23 Unknown History tablet (Nitrostat) pain primidone 250 mg tablet 250 mg PO BID 03/05/22 01/27/23 Unknown History cyclobenzaprine 10 mg tablet 1 tab PO BID PRN Muscle Spasm 06/13/22 01/27/23 Unknown History isosorbide mononitrate 30 mg 30 mg PO DAILY 09/10/22 01/27/23 Unknown History tablet,extended release 24 hr ranolazine 1,000 mg 1,000 mg PO BID 09/10/22 01/27/23 Unknown History tablet,extended release,12 hr lisinopril 5 mg tablet 5 mg PO DAILY 12/09/22 01/27/23 Unknown History dicyclomine 10 mg capsule 10 mg PO TID PRN abdominal pain 01/23/23 01/27/23 Unknown History Exam Airway Mallampati Class: II TM Dist: >3cm Neck ROM: Full Heart: aflutter Lungs: cta Assessment and Plan Assessment Anesthesia Assessment: Anesthesia Plan Discussed Final Anesthetic Review NPO: Yes ASA Class: III Final Preanesthetic Review: No Changes in Pt Med Stat, Meds/Allgs Chart Reviewed, Consent Obtained/Reviewed and Anes Risks/Benef Reviewed Patient Risk: Intermediate Procedure Risk: Low Anesthetic Plan Anesthetic Plan: MAC: Disposition: Standard PACU
--- OUTSIDE RECORDS SUMMARY | 2023-03-04 11:40 | XMS_ITS | Patient Health Record ---
Author Name Unknown [facility] Address [address] [place] [address] Care Team Providers Care Salvage Grinder Name Role Phone Name Memo ARREDONDO Primary Care Provider Rolly Manzanares Unavailable [phone] ALLERGIES Allergen (clinical drug ingredient) Drug/Non Drug [...] ice a day for 30 day(s) Active amLODIPine Besylate 10 MG 1 tablet Orall y Once a day for 30 day(s) Active Rosuvastatin Calcium 40 MG 1 tablet Oral ly Once a day for 30 day(s) Active Antibiotic Not-Takin g Metoprolol Tartrate 50 MG 1 tablet with food Orally Twice a day for 30 day(s) Active Multivitamin - 1 tablet Orally Once a day for 30 day(s) Active Nitroglycerin 0.4 MG Sublingual for 30 Active oxyCODONE HCl 10 MG 1 tablet as needed Orally every 6 hrs Active Divalproex Sodium 250 MG 1 tablet Orally Once a day for 30 day(s) Active eliquis 5 mg Active Ezetimibe 10 MG 1 tablet Orally Once a day for 30 day(s) Active Lisinopril 10 MG 1 tablet Orally Once a day for 30 day(s) Active IMMUNIZATIONS Vaccine Route Administration Date Status [...] Risk SNOMED Code Notes Problem Atherosclerosis of [place] artery of both lower extremities, with unspecified presence of clinical manifestation (I70.203) Active confirmed Atherosclerosis of [place] arteries of the extremities (843516020176194) VITAL SIGNS Blood pressure diastolic 80 mm Hg 02/25/2023 Height 5 ft 11 in in 02/25/2023 Blood pressure systolic 120 mm Hg 02/25/2023 Weight 204 lbs 02/25/2023 BMI 28.45 kg/m2 02/25/2023 PROCEDURES Procedure Date Ordered Date Performed Result Body Sit e 96426-NKVDYYX NAIL, 6 OR MORE 03/05/2022 N/A 18777-RROJUSZ NAIL, 6 OR MORE 05/28/2022 N/A 82420-Crmnrqjk Plate 05/28/2022 N/A 58940-KDJY SKIN LESIONS, 2 TO 4 05/28/2022 N/A 37724-IOEHJMH NAIL, 6 OR MORE 08/27/2022 N/A 51276-HDEB SKIN LESIONS, 2 TO 4 08/27/2022 N/A 56300-HVNDNEK NAIL, 6 OR MORE 11/29/2022 N/A 21685-BAQH SKIN LESIONS, 2 TO 4 11/29/2022 N/A 45049-LWNLIMA NAIL, 6 OR MORE 02/25/2023 N/A 38919-FHBS SKIN LESIONS, 2 TO 4 02/25/2023 N/A Encounters Encounter Location Date Provider Diagnosis [facility] [address] [place] [address] 03/05/2022 Rolly Melloier [address] [address] 03/05/2022 Rolly Virgil Achilles tendinitis, left leg M76.62 ; Pain of left heel M79.672 ; Tinea unguium B35.1 ; Pain in right toe(s) M79.674 and Pain in left toe(s) M79.[address] [address] 05/28/2022 Rollybreanna HillVirgil Atherosclerosis of [place] artery of both lower extremities, with unspecified presence of clinical manifestation I70.203 ; Ingrowing nail L60.0 ; Tinea unguium B35.1 ; Pain in right toe(s) M79.674 and Pain in left toe(s) M79.[address] [address] 08/27/2022 Rolly Virgil Atherosclerosis of [place] artery of both lower extremities, with unspecified presence of clinical manifestation I70.203 ; Tinea unguium B35.1 ; Pain in right toe(s) M79.674 and Pain in left toe(s) M79.[address] [address] 11/12/2022 Rolly Herman [address] [address] 11/12/2022 Rolly Melloier [address] [address] 11/29/2022 Rolly Virgil Atherosclerosis of [place] artery of both lower extremities, with unspecified presence of clinical manifestation I70.203 ; Tinea unguium B35.1 ; Pain in right toe(s) M79.674 ; Pain in left toe(s) M79.675 ; Pain in left foot M79.672 ; Pain in left ankle and joints of left foot M25.572 ; Bursitis of left foot M77.52 and Osteoarthritis of midtarsal joint of left foot M19.[address] [place] [address] 02/21/2023 Rolly Virgil [facility] [address] [place] [address] 02/21/2023 RollyChanning HomeVirgil [facility] [address] [place] [address] 02/25/2023 Rolly Herman Atherosclerosis of [place] artery of both lower extremities, with unspecified presence of clinical manifestation I70.203 ; Onychomycosis B35.1 ; Pain of toe of right foot M79.674 and Pain of toe of left foot M79.675 ASSESSMENTS Encounter Date Diagnosis Assessment Notes Treatment Notes Treatment Clinical Notes 03/05/2022 Achilles tendinitis, left leg (ICD-10 - M76.62) Patient Educated with: HEEL CORD STRETCHES.pdf (HEEL CORD STRETCHES.pdf) Patient Educated with: RICE THERAPY.pdf (RICE THERAPY.pdf) 03/05/2022 Pain of left heel (ICD-10 - M79.672) 05/28/2022 Ingrowing nail (ICD- 10 - L60.0) 05/28/2022 Atherosclerosis of [place] artery of both lower extremities, with unspecified presence of clinical manifestation (ICD-10 - I70.203) 08/27/2022 Tinea unguium (ICD-1 0 - B35.1) 08/27/2022 Atherosclerosis of [place] artery of both lower extremities, with unspecified presence of clinical manifestation (ICD-10 - I70.203) 11/29/2022 Tinea unguium (ICD-1 0 - B35.1) 11/29/2022 Atherosclerosis of [place] artery of both lower extremities, with unspecified presence of clinical manifestation (ICD-10 - I70.203) 02/25/2023 Onychomycosis (ICD-1 0 - B35.1) 02/25/2023 Atherosclerosis of [place] artery of both lower extremities, with unspecified presence of clinical manifestation (ICD-10 - I70.203) 02/25/2023 Pain of toe of right foot (ICD-10 - M79.674) 11/29/2022 Pain in right toe(s) (ICD-10 - M79.674) 08/27/2022 Pain in right toe(s) (ICD-10 - M79.674) 03/05/2022 Tinea unguium (ICD-1 0 - B35.1) 05/28/2022 Tinea unguium (ICD-1 0 - B35.1) 03/05/2022 Pain in right toe(s) (ICD-10 - M79.674) 08/27/2022 Pain in left toe(s) (ICD-10 - M79.675) 05/28/2022 Pain in right toe(s) (ICD-10 - M79.674) 11/29/2022 Pain in left toe(s) (ICD-10 - M79.675) 02/25/2023 Pain of toe of left foot (ICD-10 - M79.675) 11/29/2022 Pain in left foot (ICD-10 - M79.672) 03/05/2022 Pain in left toe(s) (ICD-10 - M79.675) 05/28/2022 Pain in left toe(s) (ICD-10 - M79.675) 11/29/2022 Pain in left ankle a nd joints of left foot (ICD-10 - M25.572) 11/29/2022 Bursitis of left danilo t (ICD-10 - M77.52) 11/29/2022 Osteoarthritis of midtarsal joint of left foot (ICD-10 - M19.072) 03/05/2022 Other PLAN OF TREATMENT Pending Test Test Name Order Date X ray : Foot, left 3V 01/23/2022 X ray : Foot, left 3V 11/29/2022 21280-FAEUJDL NAIL, 6 OR MORE 02/25/2023 68202-IGYGALN NAIL, 6 OR MORE 03/05/2022 71330-IPYBWTP NAIL, 6 OR MORE 05/28/2022 26469-OWMNIFH NAIL, 6 OR MORE 08/27/2022 14618-HDGJFQO NAIL, 6 OR MORE 11/29/2022 32511-Dwxrjxlr Plate 05/28/2022 99957- Debride <25 sq cm 01/23/2022 97109 I&D ABSCESS- SIMPLE,SINGLE 022 53454-STEE SKIN LESIONS, 2 TO 4 02/26/20 94686-PDTO SKIN LESIONS, 2 TO 4 05/28/20 70242-XCUC SKIN LESIONS, 2 TO 4 11/30/19 46543-HHHJ SKIN LESIONS, 2 TO 4 08/28/19 Next Appt Details Provider Name:Rolly Herman , 05/13/2023 02:45:00 PM, [address] [place], [address], Insurance Providers Payer Name Payer Address Payer Phone Subscriber Number Group Number Insured Name Patient Relationship to Insured Coverage Start Date Coverage End Date Medicare National Govt [employer] [address] [place] [address] [id number] Myles Tipton Self - patient is the [...] spine surgery 09/04/2015 Hospitalization History Reason Date(Month/Year) [facility] [place] at sametime- coded 2x CPR done 2 days 06/13/2022 [facility] left knee 3 x between 5 weeks 2021 [facility] [place] painful L migel Ingrown? g iven antiboitics 01/08/22 Cardiac Cath and Stent Coronary artery disease invo lving [place] coronary artery of [place] heart with unstable angina pectoris
--- OUTSIDE RECORDS SUMMARY | 2023-03-04 11:41 | XMS_ITS | Patient Health Record ---
Author Name Unknown Organization [facility] Miranda III, MD Address [address] [place] [address] [place] [address] Care Team Providers Care Copy Writer Name Role Phone Name Memo ARREDONDO Primary Care Provider Jose Cruz Srivastava Unavailable [phone] ALLERGIES Allergen (clinical drug ingredient) Drug/Non Drug Allergy documented on EMR Reaction Allergy Type Onset Date Status tramadol Tramadol Unknown Drug Allergy Active Pollen Pollen Unknown Allergy Active Bee Sting Unknown Allergy Active indomethacin Indocin Unknown Drug Allergy Acti ve REASON FOR REFERRAL No Information MEDICATIONS Medication SIG (Take, Route, Frequency, Duration) Notes Start Date End Date Status levETIRAcetam 250 MG 1 tablet Orally tony ry 12 hrs Active Metoprolol Tartrate 25 MG as directed Or ally Twice a day Active Lisinopril 10 MG 1 tablet Orally Once a day Active Nitroglycerin 0.4 MG as directed Subling ual Three times a day Active Acetaminophen 325 MG 1 capsule as needed Orally every 6 hrs Active Omeprazole 40 MG as directed Orally O nce a day Active Eliquis 5 MG as directed Orally Active Aspirin 81 81 MG 1 tablet Orally Once a day Active amLODIPine Besylate 10 MG 1 tablet Orall y Once a day Active Divalproex Sodium 250 MG 1 tablet Orally Twice a day Active Atorvastatin Calcium 20 MG 1 tablet Oral ly Once a day Active Heparin Sodium (Porcine) 5000 UNIT/ML as directed Injection every 12 hrs Active Ezetimibe 10 MG 1 tablet Orally Once a day Active SOCIAL HISTORY Tobacco Use: Social History Observation Description Date Details (start date - stop date) Current Smoker NA - NA Sex Assigned At : Social History Observation Description Sex Assigned At Unknown Tobacco Use/Smoking Question Answer Notes Patient is a current smoker How often do you smoke cigarettes? every day How many cigarettes a day do you smoke? 5 or les s How soon after you wake up d o you smoke your first cigarette? after 60 minutes Are you interested in quitting? Not ready to rbonson t Additional Findings: Tobacco User Light cigarett e smoker ((1-9 cigs/day) Alcohol Screen Question Answer Notes Did you have a drink containing alcohol in the p ast year? No Points 0 Interpretation Negative PROBLEMS Problem Type ICD Code Onset Dates Problem Status W/U Status Risk SNOMED Code Notes Problem GERD (gastroesophagea l reflux disease) (K21.9) Active confirmed Gastroesoph ageal reflux disease (288991562) His reflux symptoms are well controlled with [id number] er medication and are not a problem today. 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 He has been found to have an ejection fraction of 60% with lesions in the right coronary artery, right posterior descending artery and LAD. Stents have been inserted into the coronary arteries in the past. Problem HTN (hypertension) (I10) Active confirmed Hypertension (84882218) His blood pressure today was 112/70 and no change in his regimen was necessary. Problem Tobacco dependence (F17.200) Active confirmed 91051394 He was counseled about not smoking and the dangers of tobacco use. I made him aware of the smoking cessation programs available throughout the community. Problem Pacemaker (Z95.0) Active confirmed Cardiac pacemak er in situ (019045136) Pacemaker appears to be functioning well. Problem Tubular adenoma of colon (D12.6) Active confirmed Tubular mone noma of colon (386418011) Problem Syncope (R55) Active confirmed Syncope (637149699) Problem Primary osteoarthritis of both hips (M16.0) Active confirmed 899846770 Before he became ill there were plans to do a hip replacement. This has been postponed well. He is anticoagulated . Problem Myocardial infarction, unspecified AR type, unspecified artery (I21.9) Active confirmed Acute myocard ial infarction (disorder) (73147825) Problem Primary osteoarthritis of left knee (M17.12) Active confirmed [id number] He has mina d a knee replacement which is functioning well. Problem Acute deep vein thrombosis (DVT) of proximal vein of left lower extremity (I82.4Y2) Active confirmed 825875823265 He is now chronically anticoagulated . In the future, a thrombophilia evaluation should be done. This is his second DVT. The first of which was provoked. PLAN OF TREATMENT No Information Insurance Providers Payer Name Payer Address Payer Phone Subscriber Number Group Number Insured Name Patient Relationship to Insured Coverage Start Date Coverage End Date MEDICARE NGS [address] [place] [address] [id number] Myles Tipton Self - patient is the insured MEDICAID [address] [facility] [place] [id number] [phone] [id number] Myles Tipton Self - patient is the insured MEDICAL (GENERAL) HISTORY Medical History History ICD Code Atherosclerotic heart diseas e of [place] coronary artery with unspecified angina pectoris I25.119 overweight cerebral AVM hyperlipidemia post-op DVT left leg 2008 DVT 12/2020 right knee replacement hiatal hernia colonic polyp cholelithiasis Gastritis Pacemaker Tobacco dependence Hypertension Surgical History Surgery Date(Month/Year) Appendectomy Cardiac Catheterization with stenting EGD pacemaker placement Cholecystectomy Left knee replacement Hospitalization History Reason Date(Month/Year) DVT 12/2020
[2023-03-04 12:33] VITALS: BMI 32.6
[2023-03-04] MEDS: Lactated Ringers 1,000 ML 100 ML IVCONT (12:48)
--- NOTE | 2023-03-04 13:21 | MHC.SHP ---
Pre-Procedural Eval Section A Date of Service: 03/04/23 Section B Chief Complaint: Left lower quadrant pain Relevant Family History (Specify if Yes): No Relevant Social History: None Present Medications: see Short Stay Collaborative assessment Medical History: Significant History (Atherosclerotic cardiovascular disease Brain bleed Brain lesion CAD (coronary artery disease) COVID-19 vaccine administered DVT (deep venous thrombosis) Esophagitis Essential hypertension GERD (gastroesophageal reflux disease) Headache History of chemotherapy Myocardial infarction Obstructive sleep ) History of Previous Operations: Relevant previous surgery/procedure and date(s) (History of appendectomy History of cardiac catheterization History of cholecystectomy History of colonoscopy (~09/2020) History of esophagogastroduodenoscopy (EGD) (~09/2020) History of permanent cardiac pacemaker placement (~05/2013) History of right knee surgery (~12/2013) History of spinal surger) Allergies: Allergies Allergy/AdvReac Type Severity Reaction Status Date / Time bee pollen [BEE STINGS] Allergy Severe ANAPHYLAXIS Verified 01/27/23 14:49 indomethacin [Indocin] Allergy Severe anaphylaxis Verified 01/27/23 14:49 tramadol [Ultram] Allergy Severe anaphylaxis Verified 01/27/23 14:49 fentanyl AdvReac Anxiety Verified 01/27/23 14:49 Review of Systems Sugical H&P ROS: Negative: Constitution, Cardiovascular, Respiratory, Neurological, Psychiatric, Hem-Onc, Allergic/Immunologic, Gastrointestinal, Genitourinary, Musculoskeletal, Integumentary, Endocrine and Eyes/Ears/Nose/Throat Exam Surgical H&P Exam: Normal: HEENT, Normal: Heart, Normal: Lungs, Normal: Extremities, Normal: Abdomen, Normal: Skin and Normal: Neurological Plan Diagnosis/Plan: Unchanged I have reviewed the history and physical and performed a pertinent physical examination on my patient. No changes have occurred unless specified. Time Spent With Patient Time: Total time managing care of this patient today ____ minutes.
--- NOTE | 2023-03-04 13:23 | W.PM.OPN ---
Operative Note Operative Note Date of Service: 03/04/23 Narrative: Operative Information Procedure Description: EGD, Colonoscopy Indication: abn stool, cramping abdominal pain Anesthesia: MAC FLEXIBLE TRANSORAL UPPER GASTROINTESTINAL ENDOSCOPY AND COLONOSCOPY PROCEDURE NOTE UPPER ENDOSCOPY Consent: Indications for the procedure and potential complications of bleeding, perforation, reaction to medications and missed diagnosis were discussed with the patient and informed consent was obtained. Instrument: Olympus GIF H 190 J mid size upper endoscope Monitoring: Vital signs and clinical assessment, continuous EKG monitoring, Pulse oximetry, Carbon Dioxide monitoring and blood pressure monitoring were done throughout the procedure. Procedure: The patient was placed in the left lateral decubitis position and pre-procedure medications were administered and a bite block was placed. The endoscope was inserted into the mouth and advanced under direct vision to the third part of duodenum. A careful inspection was made as the upper endoscope was withdrawn including a retroflexed examination of the proximal stomach; Findings and interventions are described below. Findings: Larynx:normal Esophagus: GE junction at 45 cm, diaphragm hiatus at 45 cm, mild erythema and congestion at GEJ consistent with reflux esophagitis Stomach: Patchy erythema and granularity. Biopsies were obtained. Grade 2 flap valve on retroflexed examination of the cardia. Duodenum: Patchy duodenitis, bx taken Intervention: Biopsies as noted above COLONOSCOPY Instrument: Olympus variable stiffness pediatric scope 190L Colonoscopy Monitoring: Vital signs and clinical assessment, continuous EKG monitoring, Pulse oximetry, Carbon Dioxide monitoring and blood pressure monitoring were done throughout the procedure. Colon withdrawal time was 8 minutes. Procedure: The patient was placed in the left lateral decubitis position and pre-procedure medications were administered. After a digital rectal examination of the ano-rectum, the video colonoscope was inserted into the rectum and advanced through the colon to the cecum/TI. The colonoscope was slowly withdrawn in a retrograde panoramic fashion and the colon mucosa was carefully examined including a retroflexed view of the rectum. Findings and interventions are described below. Procedure Difficulty:easy Findings: Terminal Ileum-normal Cecum:normal Ascending Colon: 5-7 mm sessile polyp removed with cold forcpes Transverse Colon - 8-10 mm sessile polyp removed with cold snare Descending Colon:normal Sigmoid Colon: mild to moderate diverticulosis Rectum: Retroflexion with small internal hemorrhoids, grade I Anorectum - normal Colon preparation: [place] Bowel Preparation Scale Right colon; 2 Transverse colon: 1-2 Left colon; 1 (0 = Unprepared colon segment with mucosa not seen due to solid stool that cannot be cleared. 1 = Portion of mucosa of the colon segment seen, but other areas of the colon segment not well seen due to staining, residual stool and/or opaque liquid. 2 = Minor amount of residual staining, small fragments of stool and/or opaque liquid, but mucosa of colon segment seen well. 3 = Entire mucosa of colon segment seen well with no residual staining, small fragments of stool or opaque liquid) Impression and Post Procedure Diagnosis: Endoscopy Findings: gastritis duodenitis esophagitis Colonoscopy Findings: polyps internal hemorrhoids diverticular disease Plan: Await Pathology results Repeat Colonoscopy in 1-2 years due to prep or earlier if clinically indicated High fiber diet leaflet avoid straining at stool, epsom salts and sitz bath, anusol supps or cream Above findings were reviewed with the patient and relevant handouts were provided if indicated.
[2023-03-04 14:20] VITALS: BP 111/59; PULSE 60; RESP 16; TEMP 36.1; O2SAT 100
[2023-03-04 14:35] VITALS: BP 167/86; PULSE 60; RESP 16; O2SAT 95
[2023-03-04 14:50] VITALS: BP 161/80; PULSE 60; RESP 16; TEMP 36.4; O2SAT 96
== END 2023-03-04 15:50 | disposition home or self-care (01) ==
PROVIDERS: PCP Internal Medicine Geriatric Medicine; Visit Provider Internal Medicine Gastroenterology
PROC: (CPT 45385; principal; 2023-03-04 13:30)
DX: R19.5 Other fecal abnormalities (principal); Z86.010 Personal history of colon polyps; D12.2 Benign neoplasm of ascending colon; D12.3 Benign neoplasm of transverse colon; K57.30 Diverticulosis of large intestine without perforation or abscess without bleeding; K64.0 First degree hemorrhoids; R10.32 Left lower quadrant pain; K29.50 Unspecified chronic gastritis without bleeding; K21.9 Gastro-esophageal reflux disease without esophagitis; K29.80 Duodenitis without bleeding; K44.9 Diaphragmatic hernia without obstruction or gangrene; I25.2 Old myocardial infarction; I25.10 Atherosclerotic heart disease of native coronary artery without angina pectoris; I10 Essential (primary) hypertension; Z95.5 Presence of coronary angioplasty implant and graft; Z95.0 Presence of cardiac pacemaker; I48.0 Paroxysmal atrial fibrillation; G47.33 Obstructive sleep apnea (adult) (pediatric); Z86.718 Personal history of other venous thrombosis and embolism; Z79.01 Long term (current) use of anticoagulants; Z79.82 Long term (current) use of aspirin; Z88.8 Allergy status to other drugs, medicaments and biological substances; Z87.891 Personal history of nicotine dependence; Z98.890 Other specified postprocedural states
CPT/HCPCS: 45385; 45380; 43239; 88305; 88342; J2250; Q9968

== ENCOUNTER → 2023-03-04 11:38 | Outpatient (BNV) | payer MEDICARE, MEDICAID, SELFPAY | PROVIDERS: PCP Internal Medicine Geriatric Medicine; Visit Provider Internal Medicine Gastroenterology | DX: Z12.11 Encounter for screening for malignant neoplasm of colon (principal); R19.5 Other fecal abnormalities; R10.9 Unspecified abdominal pain; K21.00 Gastro-esophageal reflux disease with esophagitis, without bleeding; D12.2 Benign neoplasm of ascending colon; D12.3 Benign neoplasm of transverse colon; K57.30 Diverticulosis of large intestine without perforation or abscess without bleeding; K64.0 First degree hemorrhoids; K29.90 Gastroduodenitis, unspecified, without bleeding | CPT/HCPCS: 43239; 45380; 45385 ==

== ENCOUNTER 2023-03-20 15:42 | Emergency (ER) | payer OTHER, MEDICARE, MEDICAID, SELFPAY ==
--- NOTE | ~2023-03-20 | XR_ITS ---
EXAMINATION: XR LUMBOSACRAL SPINE CLINICAL INFORMATION: Trauma. COMPARISON: CT abdomen/pelvis 11/13/2022. TECHNIQUE: Three views of the lumbosacral spine. FINDINGS: No evidence of acute compression deformity or traumatic subluxation. Moderate intervertebral disc height loss at L5-S1. Mild intervertebral disc height loss at other levels. Moderate facet arthropathy at L4-L5 and L5-S1 leading to neural foraminal encroachment. Very prominent left-sided lateral osteophytes at L2-L3 and L3-L4. SI joints are symmetric. Partially imaged right hip arthroplasty. Right upper quadrant surgical clips with additional single clip projecting over the posterior soft tissues of the mid back on the lateral view. Atherosclerotic disease. No significant paraspinal soft tissue abnormality. XR/XR lumbar spine 2-3V IMPRESSION: 1. No acute compression deformity or traumatic subluxation. 2. Moderate lumbar spondylosis, more prominent at L5-S1. 3. Very prominent lateral osteophytes on the left side at L2-L3 and L3-L4.
--- NOTE | ~2023-03-20 | XR_ITS ---
EXAMINATION: AP pelvis and right hip. Right shoulder. CLINICAL INDICATIONS: Trauma. Pain. COMPARISON: None. TECHNIQUE: Right shoulder 3 views. AP pelvis and right hip 3 views. FINDINGS: AP pelvis: There is total right hip prosthesis with prosthetic components in satisfactory alignment. The left hip joint space is normal. SI joints space is normal. No visible acute fracture, dislocation or bony abnormality seen. Right hip: AP and frog-leg views right hip reveals total hip prosthesis in alignment. No prosthetic hardware malfunction, loosening or periprosthetic fracture seen. Right shoulder: There is moderate loss of glenohumeral joint space with periarticular moderate spurring. Moderate periarticular spurring AC joint is noted as well with minimal loss of joint space. No visible acute fracture or dislocation seen. There are subchondral cystic changes along the humeral head. XR/XR shoulder RT min 2V IMPRESSION: 1. Total right hip prosthesis in satisfactory alignment. No prosthetic hardware malfunction, loosening or periprosthetic fracture seen. 2. Moderate degenerative arthritic changes right shoulder joint. No visible acute fracture or dislocation seen. 3. Unremarkable AP pelvis and left hip exam.
--- NOTE | ~2023-03-20 | CT_ITS ---
EXAMINATION: CT HEAD WITHOUT CONTRAST CLINICAL INFORMATION: Trauma. COMPARISON: None available. TECHNIQUE: Contiguous axial imaging was performed from the skull base to vertex without intravenous administration of contrast. This CT examination was performed using dose optimization techniques as appropriate, variously including the following: *Automated exposure control *Adjustment of mA and/or kV according to patient size (this includes techniques or standardized protocols for targeted exams where dose is matched to indication/reason for exam; i.e. extremities or head) *Use of iterative reconstruction technique DLP: 618. mGy-cm FINDINGS: The lateral, third and fourth ventricles are normally outlined. The cortical sulci and basal cisterns are normally outlined as well. There is no acute territorial defect, hemorrhage or midline shift. There is a stable small hyperdensity in the region of the occipital lobe which was present previously and is stable. The extra-axial spaces are unremarkable. Calvarium: Intact. Maxillofacial sinuses and mastoids: There is partial right mastoid opacification to previous. The visualized maxillofacial sinuses and left mastoid are clear. CT/CT head/brain wo IV con IMPRESSION: No acute intracranial pathology. No significant change.
--- NOTE | ~2023-03-20 | XR_ITS ---
EXAMINATION: AP pelvis and right hip. Right shoulder. CLINICAL INDICATIONS: Trauma. Pain. COMPARISON: None. TECHNIQUE: Right shoulder 3 views. AP pelvis and right hip 3 views. FINDINGS: AP pelvis: There is total right hip prosthesis with prosthetic components in satisfactory alignment. The left hip joint space is normal. SI joints space is normal. No visible acute fracture, dislocation or bony abnormality seen. Right hip: AP and frog-leg views right hip reveals total hip prosthesis in alignment. No prosthetic hardware malfunction, loosening or periprosthetic fracture seen. Right shoulder: There is moderate loss of glenohumeral joint space with periarticular moderate spurring. Moderate periarticular spurring AC joint is noted as well with minimal loss of joint space. No visible acute fracture or dislocation seen. There are subchondral cystic changes along the humeral head. XR/XR hip RT w PEL1V IMPRESSION: 1. Total right hip prosthesis in satisfactory alignment. No prosthetic hardware malfunction, loosening or periprosthetic fracture seen. 2. Moderate degenerative arthritic changes right shoulder joint. No visible acute fracture or dislocation seen. 3. Unremarkable AP pelvis and left hip exam.
[2023-03-20 16:23] VITALS: BP 182/110; PULSE 70; RESP 18; TEMP 36.6; O2SAT 95; BMI 28.7
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
--- OUTSIDE RECORDS SUMMARY | 2023-03-20 20:53 | XMS_ITS | Patient Health Record ---
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 Not ready to bronson t Additional Findings: Tobacco User Light cigarett e smoker ((1-9 cigs/day) Alcohol Screen Question Answer Notes Did you have a drink containing alcohol in the p ast year? No Points 0 Interpretation Negative PROBLEMS Problem Type ICD Code Onset Dates Problem Status W/U Status Risk SNOMED Code Notes Problem GERD (gastroesophagea l reflux disease) (K21.9) Active confirmed Gastroesoph ageal reflux disease (439213910) His reflux symptoms are well controlled with [id number] er medication and are not a problem today. 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 He has been found to have an ejection fraction of 60% with lesions in the right coronary artery, right posterior descending artery and LAD. Stents have been inserted into the coronary arteries in the past. Problem HTN (hypertension) (I10) Active confirmed Hypertension (81624201) His blood pressure today was 112/70 and no change in his regimen was necessary. Problem Tobacco dependence (F17.200) Active confirmed [id number] He was counseled about not smoking and the dangers of tobacco use. I made him aware of the smoking cessation programs available throughout the community. Problem Pacemaker (Z95.0) Active confirmed Cardiac pacemak er in situ (446051583) Pacemaker appears to be functioning well. Problem Tubular adenoma of colon (D12.6) Active confirmed Tubular mone noma of colon (010923201) Problem Syncope (R55) Active confirmed Syncope (543356133) Problem Primary osteoarthritis of both hips (M16.0) Active confirmed 412216092 Before he became ill there were plans to do a hip replacement. This has been postponed well. He is anticoagulated . Problem Myocardial infarction, unspecified MA type, unspecified artery (I21.9) Active confirmed Acute myocard ial infarction (disorder) (00620524) Problem Primary osteoarthritis of left knee (M17.12) Active confirmed [id number] He has mina d a knee replacement which is functioning well. Problem Acute deep vein thrombosis (DVT) of proximal vein of left lower extremity (I82.4Y2) Active confirmed [id number] He is now chronically anticoagulated . In the future, a thrombophilia evaluation should be done. This is his second DVT. The first of which was provoked. PLAN OF TREATMENT No Information Insurance Providers Payer Name Payer Address Payer Phone Subscriber Number Group Number Insured Name Patient Relationship to Insured Coverage Start Date Coverage End Date MEDICARE NGS [address] [place] [address] [id number] Myles Tipton Self - patient is the insured MEDICAID [address] [facility] [place] [id number] [phone] [id number] Myles Tipton Self - patient is the insured MEDICAL (GENERAL) HISTORY Medical History History ICD Code Atherosclerotic heart diseas e of [place] coronary artery with unspecified angina pectoris I25.119 overweight cerebral AVM hyperlipidemia post-op DVT left leg 2008 DVT 12/2020 right knee replacement hiatal hernia colonic polyp cholelithiasis Gastritis Pacemaker Tobacco dependence Hypertension Surgical History Surgery Date(Month/Year) Appendectomy Cardiac Catheterization with stenting EGD pacemaker placement Cholecystectomy Left knee replacement Hospitalization History Reason Date(Month/Year) DVT 12/2020
[2023-03-20 21:23] VITALS: BP 169/89; PULSE 61; RESP 18; TEMP 36.7; O2SAT 98
[2023-03-20] MEDS: Acetaminophen 325 MG TABLET 975 MG PO (21:26)
[2023-03-20] MEDS: Lidocaine 4 % Patch ADH..PATCH 1 PATCH TRANSDERMA (21:26)
[2023-03-20] MEDS: Cyclobenzaprine HCl 10 MG TABLET PO (21:26)
== END 2023-03-20 21:32 | disposition home or self-care (01) ==
PROVIDERS: Emergency Provider Emergency Medicine; PCP Internal Medicine Geriatric Medicine
DX: M47.896 Other spondylosis, lumbar region (principal); M19.011 Primary osteoarthritis, right shoulder; M54.50 Low back pain, unspecified; M25.551 Pain in right hip; I10 Essential (primary) hypertension; E78.00 Pure hypercholesterolemia, unspecified; Z96.641 Presence of right artificial hip joint; Z87.891 Personal history of nicotine dependence; Z95.0 Presence of cardiac pacemaker; Z86.718 Personal history of other venous thrombosis and embolism; Z79.01 Long term (current) use of anticoagulants
CPT/HCPCS: 70450; 72100; 73030; 73502; 99283; 99284

== ENCOUNTER → 2023-03-29 23:59 | Outpatient (BNV) | payer MEDICARE, MEDICAID, SELFPAY ==
--- NOTE | 2023-04-09 08:18 | A.OFFVIS_ITS ---
Intake Intake Visit Reasons: Remote Device Check- [place] Allergies bee pollen [BEE STINGS] Allergy (Severe, Verified 03/20/23 16:26) ANAPHYLAXIS indomethacin [Indocin] Allergy (Severe, Verified 03/20/23 16:26) anaphylaxis tramadol [Ultram] Allergy (Severe, Verified 03/20/23 16:26) anaphylaxis fentanyl Adverse Reaction (Verified 03/20/23 16:26) Anxiety [facility] Medical History Elevated cholesterol History of chemotherapy Obstructive sleep apnea (~2018) On anticoagulant therapy Personal history of nicotine dependence DVT (deep venous thrombosis) Essential hypertension Tubular adenoma of colon COVID-19 vaccine administered Seizures (~04/2020) GERD (gastroesophageal reflux disease) Esophagitis Atherosclerotic cardiovascular disease Brain lesion Psychotic disorder Syncope Headache Myocardial infarction Pacemaker (~05/2013) Tremor Brain bleed CAD (coronary artery disease) Surgical History Hx of shoulder surgery History of total left knee replacement History of ERCP History of spinal surgery History of colonoscopy (~09/2020) History of right knee surgery (~12/2013) History of total right hip replacement (~06/2012) History of cholecystectomy History of cardiac catheterization History of permanent cardiac pacemaker placement (~05/2013) History of esophagogastroduodenoscopy (EGD) (~09/2020) History of appendectomy Stented coronary artery Family History Father Heavy cigarette smoker Throat cancer Mother Heart disease Social History Household Members: None Household Members Other:: shares house with a friend Housing: House Are you a primary manager intensive care unit to a significant other at home: No Do you presently have visiting nurse or other home services: No Alcohol intake: never Patient Tobacco Use Status: Former Tobacco user Quit Date: 7 months Tobacco use type: Cigarette Years Smoked: 8 +/- e-Cigarette/Vaping Use: Never Used Second Hand Smoke Exposure: No Advance Directives Date on File: 12/16/20 service: No Current occupational status: employed and retired Office Procedures Cardiac Device Check Cardiac Device Check Details: Date of service- 03/29/2023 ; Battery life 10months; normal lead parameters; AP 48%; FACILITY TECHNICIAN <1%; no significant arrhythmias. Overall normal device function. [id number] Cardiac Device Interrogation, pacemaker Procedure code (CPT) selection complete Assessment & Plan Assessment & Plan (1) Sick sinus syndrome: Code(s): I49.5 - Sick sinus syndrome Coding Level of Care Code Procedure Only Diagnoses Sick sinus syndrome I49.5 CPT Codes Cardiac Device Check - Cardiac Device 12: [id number] Cardiac Device Interrogation, pacemaker ([id number])
== END ==
PROVIDERS: PCP Internal Medicine Geriatric Medicine; Visit Provider Internal Medicine
DX: I49.5 Sick sinus syndrome (principal); Z95.0 Presence of cardiac pacemaker
CPT/HCPCS: 93294

== ENCOUNTER 2023-04-11 09:16 | Outpatient (AMB) | payer MEDICARE, MEDICAID, SELFPAY ==
--- NOTE | 2023-04-11 09:21 | MHC.OFFVIS ---
Intake Vital Signs 04/11/23 09:22 Height 5 ft 11 in Weight 211 lb 10.3 oz BMI 29.5 BP 169/85 H Blood Pressure Location Lt brachial Position Sitting Pulse 75 Intake Visit Reasons: S/P EGD,[place]; Dr. Garza Intake Note: Myles presents in the office as a follow up colo and egd. CC: He still has the pains in the LLQ but he states other than that he is feeling good. Director Of Digital Platforms Required: No Allergies bee pollen [BEE STINGS] Allergy (Severe, Verified 04/11/23 09:23) ANAPHYLAXIS indomethacin [Indocin] Allergy (Severe, Verified 04/11/23 09:23) anaphylaxis tramadol [Ultram] Allergy (Severe, Verified 04/11/23 09:23) anaphylaxis fentanyl Adverse Reaction (Verified 04/11/23 09:23) Anxiety HPI S/P EGD,[place]; Dr. Garza HPI Details 67-year-old gentleman with past medical history of atrial fibrillation on apixaban, sick sinus syndrome status post pacemaker implantation ([place] accent), coronary artery disease, GERD, GERD, s/p CCY who I am seeing for f/u RECAP: He was admitted with abn LFT and choledocholithiasis 09/[address] abdomen pelvis revealed dilated CBD to 1.2 cm with filling defects in the distal CBD and atrophic pancreas He had an ERCP with sludge removed, needed a repeat ERCP due to ongoing complaints few days later but the CBD was normal LFT 11/2022--nml LFT and HGB egd.colo 02/2023 Endoscopy Findings: gastritis duodenitis esophagitis Colonoscopy Findings: polyps internal hemorrhoids diverticular disease poor-fair prep PAth: TA and gastric congestion INTERIM: He denies xs heartburn, been on protonix for years, EGD as above v mild occ lower abdo pain and bentyl helps appetite is good no constipation or diarrhea overall he feels good EXAM: GENERAL: The patient is well developed and nontoxic. VITAL SIGNS:see workflow HEENT: Nonicteric sclerae, PERRLA, EOMI. Oropharynx clear. Moist mucous membranes. Conjunctivae appear well perfused. No thyroid mass. CHEST: Chest wall is nontender. HEART: Regular rate and rhythm without murmurs. LUNGS: Clear to auscultation bilaterally. ABDOMEN: Soft, positive bowel sounds, Non tender .no flank tenderness SKIN: No rash, no excessive bruising, petechiae, or purpura. NEUROLOGIC: Cranial nerves II-XII intact without motor/sensory deficit. A?P: 1/ Colon polyps, fair prep 2/ GERD, despite protonix, may also be worse due to CCB PLAN: 1/ EGD and colonoscopy -repeat 1 yr or so 2/ cont bently prn 3/ change ppi to esomeprazole PFSH Medical History Elevated cholesterol History of chemotherapy Obstructive sleep apnea (~2018) On anticoagulant therapy Personal history of nicotine dependence DVT (deep venous thrombosis) Essential hypertension Tubular adenoma of colon COVID-19 vaccine administered Seizures (~04/2020) GERD (gastroesophageal reflux disease) Esophagitis Atherosclerotic cardiovascular disease Brain lesion Psychotic disorder Syncope Headache Myocardial infarction Pacemaker (~05/2013) Tremor Brain bleed CAD (coronary artery disease) Surgical History Hx of shoulder surgery History of total left knee replacement History of ERCP History of spinal surgery History of colonoscopy (~09/2020) History of right knee surgery (~12/2013) History of total right hip replacement (~06/2012) History of cholecystectomy History of cardiac catheterization History of permanent cardiac pacemaker placement (~05/2013) History of esophagogastroduodenoscopy (EGD) (~09/2020) History of appendectomy Stented coronary artery Family History Father Heavy cigarette smoker Throat cancer Mother Heart disease Social History Household Members: None Household Members Other:: shares house with a friend Housing: House Are you a primary zoo caretaker to a significant other at home: No Do you presently have visiting nurse or other home services: No Alcohol intake: never Patient Tobacco Use Status: Former Tobacco user Quit Date: 7 months Tobacco use type: Cigarette Years Smoked: 8 +/- e-Cigarette/Vaping Use: Never Used Second Hand Smoke Exposure: No Advance Directives Date on File: 12/16/20 service: No Current occupational status: employed and retired Physical Exam Vital Signs: Last Vital Signs Pulse 75 04/11/23 09:22 BP 169/85 H 04/11/23 09:22 BMI result Body Mass Index 29.5 Assessment & Plan Assessment & Plan Medications: New esomeprazole magnesium 40 mg PO DAILY 30 caps 3RF Discontinued pantoprazole (Protonix) Discontinued Reason: Doctor's Order 40 mg PO BID 60 tabs 0RF Coding Level of Care Code Est Pt Level 3 (60488)
[2023-04-11 09:22] VITALS: BP 169/85; PULSE 75; BMI 29.5
== END 2023-04-11 09:59 | disposition home or self-care (01) ==
PROVIDERS: PCP Internal Medicine Geriatric Medicine; Visit Provider Internal Medicine Gastroenterology
DX: K63.5 Polyp of colon (principal)
CPT/HCPCS: 99213

== ENCOUNTER → 2023-04-11 09:16 | Outpatient (BNVA) | payer MEDICARE, MEDICAID, SELFPAY | PROVIDERS: PCP Internal Medicine Geriatric Medicine; Visit Provider Internal Medicine Gastroenterology | DX: K63.5 Polyp of colon (principal); K21.9 Gastro-esophageal reflux disease without esophagitis | CPT/HCPCS: 99212 ==

== ENCOUNTER 2023-06-01 10:39 | Emergency (ER) | payer MEDICARE, MEDICAID, SELFPAY ==
--- NOTE | ~2023-06-01 | XR_ITS ---
EXAMINATION:XR knee LT 3V CLINICAL INFORMATION: Pain and swelling COMPARISON: None available at the time of this dictation. TECHNIQUE: Frontal and lateral views acquired 4 views FINDINGS: BONES: No fracture or dislocation is present. JOINTS: There is total knee replacement prosthesis device, both femoral and tibial component of which is properly positioned maintaining normal alignment's. No radiologic evidence of device loosening. Patella properly positioned. SOFT TISSUE: Normal XR/XR knee LT 3V IMPRESSION: Status post total knee replacement. The prosthesis is stable.
[2023-06-01 10:41] VITALS: BP 153/102; PULSE 79; RESP 20; TEMP 36.7; O2SAT 95; BMI 29.5
--- NOTE | 2023-06-01 10:50 | ED_ITS ---
HPI - General Adult General Chief complaint: General Medical Stated complaint: Gout? Time Seen by Provider: 06/01/23 10:47 Source: patient Mode of arrival: ambulatory Limitations: no limitations History of Present Illness HPI narrative: 68-year-old male with past medical history of PE AD, osteoarthritis, atrial flutter /proximal AFib on Eliquis, seizures, GERD here with complaints of pain in left knee, right foot, left hand which began over the last few days. He denies any associated swelling, redness, warmth, fevers or chills. He does have a history of arthritis. He tells me he came in today because he is concerned that he may have gout and he would like some blood work drawn. He denies any injury or trauma. He did have a knee replacement 15 years ago to the left knee but denies any complications from this. Related Data Home Medications Medication Instructions Recorded Confirmed aspirin 81 mg tablet,delayed 81 mg PO DAILY 04/25/20 01/27/23 release (Adult Low Dose Aspirin) rosuvastatin 40 mg tablet (Crestor) 40 mg PO BEDTIME chloestrol 04/25/20 01/27/23 oxycodone 10 mg tablet 10 mg PO Q5H PRN Moderate Pain 04/26/20 01/27/23 (Scale Score 5-6) divalproex 250 mg tablet,extended 250 mg PO BEDTIME 09/08/20 01/27/23 release 24 hr (Depakote ER) ezetimibe 10 mg tablet (Zetia) 10 mg PO DAILY 10/24/20 01/27/23 multivitamin (Daily Vitamin 1 tab PO DAILY 10/24/20 01/27/23 Formula tablet) apixaban 5 mg tablet (Eliquis) 5 mg PO BID 01/08/21 01/27/23 nitroglycerin 0.4 mg sublingual 0.4 mg sublingual Q5M PRN chest 11/29/21 01/27/23 tablet (Nitrostat) pain primidone 250 mg tablet 250 mg PO BID 03/05/22 01/27/23 cyclobenzaprine 10 mg tablet 1 tab PO BID PRN Muscle Spasm 06/13/22 01/27/23 isosorbide mononitrate 30 mg 30 mg PO DAILY 09/10/22 01/27/23 tablet,extended release 24 hr ranolazine 1,000 mg 1,000 mg PO BID 09/10/22 01/27/23 tablet,extended release,12 hr lisinopril 5 mg tablet 5 mg PO DAILY 12/09/22 01/27/23 Previous Rx's Medication Instructions Recorded lidocaine 5 % topical patch 1 patch topical DAILY PRN pain #15 11/14/22 ea ondansetron 4 mg disintegrating 4 mg PO Q6H PRN nausea and 11/14/22 tablet vomiting #14 tabs hyoscyamine sulfate 0.125 mg 0.125 mg PO BID-QID PRN dyspepsia 12/09/22 disintegrating tablet #30 tabs amlodipine 10 mg tablet 10 mg PO DAILY #90 tabs 01/27/23 dicyclomine 10 mg capsule 10 mg PO TID PRN abdominal pain 03/12/23 #60 caps acetaminophen 500 mg tablet 500 mg PO Q6H PRN fever or pain 03/20/23 (Tylenol Extra Strength) #14 tabs cyclobenzaprine 5 mg tablet 5 mg PO Q8H PRN pain (scale score 03/20/23 7-10) 5 days #14 tabs lidocaine 5 % topical patch 1 patch topical DAILY PRN pain #30 03/20/23 (Lidoderm) ea metoprolol tartrate 100 mg tablet 100 mg PO BID 90 days #180 tabs 04/01/23 esomeprazole magnesium 40 mg 40 mg PO DAILY #30 caps 04/11/23 capsule,delayed release Allergies Allergy/AdvReac Type Severity Reaction Status Date / Time bee pollen [BEE STINGS] Allergy Severe ANAPHYLAXIS Verified 04/11/23 09:23 indomethacin [Indocin] Allergy Severe anaphylaxis Verified 04/11/23 09:23 tramadol [Ultram] Allergy Severe anaphylaxis Verified 04/11/23 09:23 fentanyl AdvReac Anxiety Verified 04/11/23 09:23 Review of Systems Review of Systems: Yes all other systems are reviewed and are negative Constitutional: Constitutional: Reports no additional constitutional complaints, Denies body ache(s), Denies chills, Denies fever(s), Denies headache(s) and Denies weakness Eyes: Eyes: Reports no additional eye complaints and Denies change in vision ENT: Reports system reviewed and no additional complaints, except as documented, Denies dizziness, Denies headache(s), Denies nasal congestion, Denies nasal discharge and Denies neck pain Cardiovascular: Cardiovascular: Reports no additional cardiovascular complaints, Denies chest pain, Denies leg edema and Denies dyspnea Respiratory: Respiratory: Reports no additional respiratory complaints, Denies cough and Denies dyspnea Gastrointestinal: Gastrointestinal: Reports no additional gastrointestinal c omplaints, Denies abdominal pain, Denies diarrhea, Denies nausea and Denies vomiting Genitourinary: Genitourinary: Denies urinary incontinence Musculoskeletal: Musculoskeletal: Reports no additional musculoskeletal complaints, Denies back pain, Reports arthralgias, Denies joint swelling, Denies limited range of motion, Denies neck pain, Denies numbness and Denies tingling Integumentary/Breasts: Skin/Breast: Reports system reviewed and no additional complaints, except as docu and Denies rash Neurologic: Reports system reviewed and no additional complaints, except as documented, Denies Abnormal speech present, Denies dizziness, Denies headache(s), Denies numbness, Denies tingling and Denies weakness PMFSH Past Medical History Attestation statement: The following information was validated with the patient. Source: old records reviewed and nursing notes reviewed Medical History Elevated cholesterol History of chemotherapy Obstructive sleep apnea (~2018) On anticoagulant therapy Personal history of nicotine dependence DVT (deep venous thrombosis) Essential hypertension Tubular adenoma of colon COVID-19 vaccine administered Seizures (~04/2020) GERD (gastroesophageal reflux disease) Esophagitis Atherosclerotic cardiovascular disease Brain lesion Psychotic disorder Syncope Headache Myocardial infarction Pacemaker (~05/2013) Tremor Brain bleed CAD (coronary artery disease) Surgical History Hx of shoulder surgery History of total left knee replacement History of ERCP History of spinal surgery History of colonoscopy (~09/2020) History of right knee surgery (~12/2013) History of total right hip replacement (~06/2012) History of cholecystectomy History of cardiac catheterization History of permanent cardiac pacemaker placement (~05/2013) History of esophagogastroduodenoscopy (EGD) (~09/2020) History of appendectomy Stented coronary artery Family History Family History Father Heavy cigarette smoker Throat cancer Mother Heart disease Social History Social History Household Members: None Household Members Other:: shares house with a friend Housing: House Are you a primary health care facilities inspector to a significant other at home: No Do you presently have visiting nurse or other home services: No Alcohol intake: never Comment: resting eyes closed Patient Tobacco Use Status: Former Tobacco user Quit Date: 7 months Tobacco use type: Cigarette Years Smoked: 8 +/- e-Cigarette/Vaping Use: Never Used Second Hand Smoke Exposure: No Advance Directives: Yes Advance Directives on File: Yes Advance Directives Date on File: 12/16/20 service: No Current occupational status: employed and retired Physical Exam ED Vital Signs: Vital Signs - 24 hr 06/01/23 10:41 Temperature 98.1 F Pulse Rate 79 Respiratory Rate 20 Blood Pressure 153/102 H Pulse Oximetry 95 Oxygen Delivery Method Room Air BMI result Body Mass Index 29.5 Const General: cooperative, healthy appearing, comfortable and no acute distress Orientation/consciousness: patient oriented x3 Limitations: no limitations HENMT Head: Yes normal to inspection Ears: hearing grossly normal bilaterally General nose exam: Normal external nose present Face and sinus: Yes normal facial exam Mouth: Normal oral and palatal mucosa present Throat: Yes posterior oropharynx normal Eyes General: appearance normal, both eyes and all related structures Pupils: Equal, round and reactive pupils present Neck Neck: Yes normal visual inspection Chest Chest palpation & inspection: normal inspection of the chest Resp Effort & Inspection: normal respiratory effort Auscultation: clear to auscultation bilaterally Cardio Rate: regular rate Rhythm: regular rhythm Peripheral pulses: Peripheral pulses 2+ throughout GI Inspection: Yes normal to inspection Palpation (GI): Soft to palpation and nontender Auscultation: normal bowel sounds Back/Spine/Pelvis Thoracic/Lumbar Spine: thoracic and lumbar spine normal to inspection Skin General skin exam: no rashes or lesions noted Neuro General: patient oriented x3, no focal motor deficits and normal sensation to monofilament Cranial nerves: Yes Equal, round and reactive pupils present Cognition (Neuro): normal cognition Speech: No Abnormal speech present Gait exam (Neuro): Normal gait present Motor exam (neuro): 5/5 motor strength present throughout Extrem Other: To the left knee there is mild swelling/discomfort noted. There is no warmth or redness. There is full active and passive range of motion. There are distal pulses and sensation. The right foot is normal in appearance, there is no palpable tenderness on exam. There is no swelling, warmth or redness. There is full active and passive range of motion. There are normal pulses and sensation. There is mild tenderness the left dorsal hand. There is no obvious swelling, redness or warmth. There is full active and passive range of motion. There are normal pulses and sensation. General: Yes normal to inspection Course Course Course Narrative: 1345-I went to see the patient and he was not in the room. ?LWCT Medical Decision Making Medical Decision Making MDM Narrative: 68-year-old male with past medical history of PE AD, osteoarthritis, atrial flutter /proximal AFib on Eliquis, seizures, GERD here with complaints of pain in left knee, left foot, left hand which began over the last few days.? He denies any associated swelling, redness, warmth, fevers or chills.? He does have a history of arthritis.? He tells me he came in today because he is concerned that he may have gout and he would like some blood work drawn.? He denies any injury or trauma.? He did have a knee replacement 15 years ago to the left knee but denies any complications from this. To the left knee there is mild swelling/discomfort noted.? There is no warmth or redness.? There is full active and passive range of motion.? There are distal pulses and sensation.? The right foot is normal in appearance, there is no palpable tenderness on exam.? There is no swelling, warmth or redness.? There is full active and passive range of motion.? There are normal pulses and sensation.?? There is mild tenderness the left dorsal hand.? There is no obvious swelling, redness or warmth.? There is full active and passive range of motion.? There are normal pulses and sensation. Patient here with polyarthralgia. No evidence of infection. No reports of injury or trauma. There is slight swelling and pain over the left knee so will check x-ray Patient is concerned that he may have gout. There is no evidence to suggest that. He does have a history of osteoarthritis in this may be an arthritis flare. He may need to have additional outpatient follow-up with his primary care doctor for any continued symptoms. Differential Diagnosis Differential Diagnoses: The differential diagnosis associated with the presentation includes Osteoarthritis Low concern for septic joint, septic arthritis, DVT, gout, cellulitis Admission/Observation Consideration of admission/observation: Escalation of care including admission/observation considered Independent Interpretation I performed an independent interpretation of an: Plain X-Ray Interpretation: I independently reviewed the x-ray and agree with the radiology report Radiology Impression Discussion of test interpretation with radiology: I have reviewed the radiologist's reading. Radiologist Impression: [address] [address] XRay Report Signed Patient: Myles Tipton MR#: [id number] : 1955 Acct:[id number] Age/Sex: 68 / M ADM Date: 06/01/23 Loc: .ED Attending Dr: Ordering Physician: Jacey Carolina NP Date of Service: 06/01/23 Procedure(s): XR knee LT 3V Accession Number(s): [id number] cc: Name,Memo ARREDONDO; Jacey Carolina NP~ EXAMINATION:XR knee LT 3V CLINICAL INFORMATION: Pain and swelling COMPARISON: None available at the time of this dictation. TECHNIQUE: Frontal and lateral views acquired 4 views FINDINGS: BONES: No fracture or dislocation is present. JOINTS: There is total knee replacement prosthesis device, both femoral and tibial component of which is properly positioned maintaining normal alignment's. No radiologic evidence of device loosening. Patella properly positioned. SOFT TISSUE: Normal XR/XR knee LT 3V IMPRESSION: Status post total knee replacement. The prosthesis is stable. Discharge Plan Discharge Clinical Impression: Polyarthralgia Patient Disposition: Left W/O Completing Treatment Instructions: Arthralgia (ED) Additional Instructions: Please follow-up with your doctor Prescriptions: No Action dicyclomine 10 mg capsule 10 mg PO TID PRN (Reason: abdominal pain) Qty: 60 2RF metoprolol tartrate 100 mg tablet 100 mg PO BID 90 Days Qty: 180 3RF aspirin [Adult Low Dose Aspirin] 81 mg tablet,delayed release (DR/EC) 81 mg PO DAILY rosuvastatin [Crestor] 40 mg tablet 40 mg PO BEDTIME oxycodone 10 mg Tablet 10 mg PO Q5H PRN (Reason: Moderate Pain (Scale Score 5-6)) divalproex [Depakote ER] 250 mg tablet extended release 24 hr 250 mg PO BEDTIME nitroglycerin [Nitrostat] 0.4 mg tablet, sublingual 0.4 mg sublingual Q5M PRN (Reason: chest pain) Rx Instructions: do not exceed 3 doses per episode cyclobenzaprine 10 mg tablet 1 tab PO BID PRN (Reason: Muscle Spasm) isosorbide mononitrate 30 mg tablet extended release 24 hr 30 mg PO DAILY ranolazine 1,000 mg tablet extended release 12 hr 1,000 mg PO BID lidocaine [Lidoderm] 5 % adhesive patch,medicated 1 patch topical DAILY MDD remove after 12 hours PRN (Reason: pain) Qty: 30 0RF Rx Instructions: leave on most painful area for up to 12 hrs acetaminophen [Tylenol Extra Strength] 500 mg tablet 500 mg PO Q6H PRN (Reason: fever or pain) Qty: 14 0RF cyclobenzaprine 5 mg tablet 5 mg PO Q8H PRN (Reason: pain (scale score 7-10)) 5 Days Qty: 14 0RF lidocaine 5 % adhesive patch,medicated 1 patch topical DAILY PRN (Reason: pain) Qty: 15 0RF Rx Instructions: leave on most painful area for up to 12 hrs ondansetron 4 mg tablet,disintegrating 4 mg PO Q6H PRN (Reason: nausea and vomiting) Qty: 14 0RF Eliquis 5 mg tablet 5 mg PO BID Hold Instructions: Resume on 09/17/22. ezetimibe [Zetia] 10 mg tablet 10 mg PO DAILY multivitamin [Daily Vitamin Formula] Tablet 1 tab PO DAILY primidone 250 mg tablet 250 mg PO BID amlodipine 10 mg tablet 10 mg PO DAILY Qty: 90 3RF lisinopril 5 mg tablet 5 mg PO DAILY hyoscyamine sulfate 0.125 mg tablet,disintegrating 0.125 mg PO BID-QID PRN (Reason: dyspepsia) Qty: 30 0RF esomeprazole magnesium 40 mg capsule,delayed release(DR/EC) 40 mg PO DAILY Qty: 30 3RF Referrals: Name,MD Memo [Primary Care Provider] - 1 week
--- OUTSIDE RECORDS SUMMARY | 2023-06-01 11:01 | XMS_ITS | Patient Health Record ---
Author Name Unknown [facility] Address [address] [place] [address] Care Team Providers Care [facility] Name Role Phone Name Memo ARREDONDO Primary Care Provider Rolly Manzanares Unavailable [phone] ALLERGIES Allergen (clinical drug ingredient) Drug/Non Drug [...] Risk SNOMED Code Notes Problem Atherosclerosis of [place] artery of both lower extremities, with unspecified presence of clinical manifestation (I70.203) Active confirmed Atherosclerosis of [place] arteries of the extremities (542050378864457) VITAL SIGNS Blood pressure diastolic 80 mm Hg 02/25/2023 Height 5 ft 11 in in 02/25/2023 Blood pressure systolic 120 mm Hg 02/25/2023 Weight 204 lbs 02/25/2023 BMI 28.45 kg/m2 02/25/2023 PROCEDURES Procedure Date Ordered Date Performed Result Body Sit e 25255-MQYWOVW NAIL, 6 OR MORE 08/27/2022 N/A 17777-ZYOZ SKIN LESIONS, 2 TO 4 08/27/2022 N/A 30914-QIJDMOM NAIL, 6 OR MORE 11/29/2022 N/A 88945-PBTB SKIN LESIONS, 2 TO 4 11/29/2022 N/A 53998-PIOBKET NAIL, 6 OR MORE 02/25/2023 N/A 67605-GVCD SKIN LESIONS, 2 TO 4 02/25/2023 N/A Encounters Encounter Location Date [facility] [address] [place] [address] 08/27/2022 Rolly Herman Atherosclerosis of [place] artery of both lower extremities, with unspecified presence of clinical manifestation I70.203 ; Tinea unguium B35.1 ; Pain in right toe(s) M79.674 and Pain in left toe(s) M79.[address] [address] 11/12/2022 Rolly Herman [address] [address] 11/12/2022 Rollybreanna Herman [address] [address] 11/29/2022 Rolly Herman Atherosclerosis of [place] artery of both lower extremities, with unspecified presence of clinical manifestation I70.203 ; Tinea unguium B35.1 ; Pain in right toe(s) M79.674 ; Pain in left toe(s) M79.675 ; Pain in left foot M79.672 ; Pain in left ankle and joints of left foot M25.572 ; Bursitis of left foot M77.52 and Osteoarthritis of midtarsal joint of left foot M19.072 [facility] [address] [address] 02/21/2023 Rolly Herman [address] [address] 02/21/2023 Rolly Herman [address] [address] 02/25/2023 Rolly Herman Atherosclerosis of [place] artery of both lower extremities, with unspecified presence of clinical manifestation I70.203 ; Onychomycosis B35.1 ; Pain of toe of right foot M79.674 and Pain of toe of left foot M79.[address] [address] 05/13/2023 Rolly Herman [address] [address] 05/13/2023 Rolly Herman ASSESSMENTS Encounter Date Diagnosis Assessment Notes Treatment Notes Treatment Clinical Notes 08/27/2022 Tinea unguium (ICD-1 0 - B35.1) 08/27/2022 Atherosclerosis of [place] artery of both lower extremities, with unspecified presence of clinical manifestation (ICD-10 - I70.203) 11/29/2022 Tinea unguium (ICD-1 0 - B35.1) 11/29/2022 Atherosclerosis of [place] artery of both lower extremities, with unspecified presence of clinical manifestation (ICD-10 - I70.203) 02/25/2023 Onychomycosis (ICD-1 0 - B35.1) 02/25/2023 Atherosclerosis of [place] artery of both lower extremities, with unspecified presence of clinical manifestation (ICD-10 - I70.203) 02/25/2023 Pain of toe of right foot (ICD-10 - M79.674) 11/29/2022 Pain in right toe(s) (ICD-10 - M79.674) 08/27/2022 Pain in right toe(s) (ICD-10 - M79.674) 08/27/2022 Pain in left toe(s) (ICD-10 - M79.675) 11/29/2022 Pain in left toe(s) (ICD-10 - M79.675) 02/25/2023 Pain of toe of left foot (ICD-10 - M79.675) 11/29/2022 Pain in left foot (ICD-10 - M79.672) 11/29/2022 Pain in left ankle a nd joints of left foot (ICD-10 - M25.572) 11/29/2022 Bursitis of left danilo t (ICD-10 - M77.52) 11/29/2022 Osteoarthritis of midtarsal joint of left foot (ICD-10 - M19.072) PLAN OF TREATMENT Pending Test Test Name Order Date X ray : Foot, left 3V 01/23/2022 X ray : Foot, left 3V 11/29/2022 85801-FLTUNAA NAIL, 6 OR MORE 02/25/2023 00496-BLYAHUC NAIL, 6 OR MORE 03/05/2022 61532-SVULXDW NAIL, 6 OR MORE 05/28/2022 62024-XEDUNRX NAIL, 6 OR MORE 08/27/2022 58218-STMXCDO NAIL, 6 OR MORE 11/29/2022 57196-Rhcikbgn Plate 05/28/2022 53041- Debride <25 sq cm 01/23/2022 03389 I&D ABSCESS- SIMPLE,SINGLE 022 99517-SLKU SKIN LESIONS, 2 TO 4 02/26/20 76309-GFSE SKIN LESIONS, 2 TO 4 05/28/20 90114-AGOK SKIN LESIONS, 2 TO 4 11/30/19 99332-BXPE SKIN LESIONS, 2 TO 4 08/28/19 Next Appt Details Provider Name:Rolly Herman , 07/22/2023 03:15:00 PM, [address] [place], [address], Insurance Providers Payer Name Payer Address Payer Phone Subscriber Number Group Number Insured Name Patient Relationship to Insured Coverage Start Date Coverage End Date Medicare National Govt [employer] [address] [place] [address] [phone] [id number] Myles Tipton Self - patient is the [...] spine surgery 09/04/2015 Hospitalization History Reason Date(Month/Year) [facility] - AFib and choke at sametime- coded 2x CPR done 2 days 06/13/2022 [facility] left knee 3 x between 5 weeks 2021 [facility] -Ugent Care painful L migel Ingrown? g iven antiboitics 01/08/22 Cardiac Cath and Stent Coronary artery disease invo lving [place] coronary artery of [place] heart with unstable angina pectoris
--- OUTSIDE RECORDS SUMMARY | 2023-06-01 11:02 | XMS_ITS | Patient Health Record ---
Author Name Unknown Organization [facility] Miranda III, MD Address [address] [place] [address] [place] [address] Care Team Providers Care Wall And Floor Tiler Name Role Phone Name Memo ARREDONDO Primary Care Provider Jose Cruz Srivastava Unavailable [phone] ALLERGIES Allergen (clinical drug ingredient) Drug/Non Drug [...] (K21.9) Active confirmed Gastroesoph ageal reflux disease (713575401) His reflux symptoms are well controlled with qdiv-prj-defiw er medication and are not a problem today. Problem Atherosclerotic heart disease of [place] coronary artery with unspecified angina pectoris (I25.119) Active confirmed Angina (049537072) He has a history of multiple cardiac catheterizatio ns. He has been found to have an ejection fraction of 60% with lesions in the right coronary artery, right posterior descending artery and LAD. Stents have been inserted into the coronary arteries in the past. Problem HTN (hypertension) (I10) Active confirmed Hypertension (15579010) His blood pressure today was 112/70 and no change in his regimen was necessary. Problem Tobacco dependence (F17.200) Active confirmed 41320278 He was counseled about not smoking and the dangers of tobacco use. I made him aware of the smoking cessation programs available throughout the community. Problem Pacemaker (Z95.0) Active confirmed Cardiac pacemak er in situ (642386524) Pacemaker appears to be functioning well. Problem Tubular adenoma of colon (D12.6) Active confirmed Tubular mone noma of colon (341717513) Problem Syncope (R55) Active confirmed Syncope (138359132) Problem Primary osteoarthritis of both hips (M16.0) Active confirmed 761711141 Before he became ill there were plans to do a hip replacement. This has been postponed well. He is anticoagulated . Problem Myocardial infarction, unspecified [place] type, unspecified artery (I21.9) Active confirmed Acute myocard ial infarction (disorder) (69524417) Problem Primary osteoarthritis of left knee (M17.12) Active confirmed [id number] He has mina d a knee replacement which is functioning well. Problem Acute deep vein thrombosis (DVT) of proximal vein of left lower extremity (I82.4Y2) Active confirmed 115605687497 He is now chronically anticoagulated . In the future, a thrombophilia evaluation should be done. This is his second DVT. The first of which was provoked. PLAN OF TREATMENT No Information Insurance Providers Payer Name Payer Address Payer Phone Subscriber Number Group Number Insured Name Patient Relationship to Insured Coverage Start Date Coverage End Date MEDICARE NGS [address] [place] [address] [id number] Myles Tipton Self - patient is the insured MEDICAID [address] [facility] [place] [id number] [phone] [id number] Myles Tipton Self - patient is the insured MEDICAL (GENERAL) HISTORY Medical History History ICD Code Atherosclerotic heart diseas e of [place] coronary artery with unspecified angina pectoris I25.119 overweight cerebral AVM hyperlipidemia post-op DVT left leg 2008 DVT 12/2020 right knee replacement hiatal hernia colonic polyp cholelithiasis Gastritis Pacemaker Tobacco dependence Hypertension Surgical History Surgery Date(Month/Year) Appendectomy Cardiac Catheterization with stenting EGD pacemaker placement Cholecystectomy Left knee replacement Hospitalization History Reason Date(Month/Year) DVT 12/2020
== END 2023-06-01 15:06 | disposition left against medical advice (07) ==
PROVIDERS: Emergency Provider Student in an Organized Health Care Education/Training Program; PCP Internal Medicine Geriatric Medicine
DX: M25.562 Pain in left knee (principal); M25.572 Pain in left ankle and joints of left foot; M25.542 Pain in joints of left hand; I10 Essential (primary) hypertension; I48.0 Paroxysmal atrial fibrillation; I48.92 Unspecified atrial flutter; Z86.711 Personal history of pulmonary embolism; Z86.718 Personal history of other venous thrombosis and embolism; Z79.01 Long term (current) use of anticoagulants
CPT/HCPCS: 73562; 99281; 99283

== ENCOUNTER → 2023-06-16 23:59 | Outpatient (BNV) | payer MEDICARE, MEDICAID, SELFPAY ==
--- NOTE | 2023-06-18 19:11 | MHC.OFFVIS ---
Intake Intake Visit Reasons: Remote Device Check- [facility] Allergies bee pollen [BEE STINGS] Allergy (Severe, Verified 04/11/23 09:23) ANAPHYLAXIS indomethacin [Indocin] Allergy (Severe, Verified 04/11/23 09:23) anaphylaxis tramadol [Ultram] Allergy (Severe, Verified 04/11/23 09:23) anaphylaxis fentanyl Adverse Reaction (Verified 04/11/23 09:23) Anxiety [facility] Medical History Elevated cholesterol History of chemotherapy Obstructive sleep apnea (~2018) On anticoagulant therapy Personal history of nicotine dependence DVT (deep venous thrombosis) Essential hypertension Tubular adenoma of colon COVID-19 vaccine administered Seizures (~04/2020) GERD (gastroesophageal reflux disease) Esophagitis Atherosclerotic cardiovascular disease Brain lesion Psychotic disorder Syncope Headache Myocardial infarction Pacemaker (~05/2013) Tremor Brain bleed CAD (coronary artery disease) Surgical History Hx of shoulder surgery History of total left knee replacement History of ERCP History of spinal surgery History of colonoscopy (~09/2020) History of right knee surgery (~12/2013) History of total right hip replacement (~06/2012) History of cholecystectomy History of cardiac catheterization History of permanent cardiac pacemaker placement (~05/2013) History of esophagogastroduodenoscopy (EGD) (~09/2020) History of appendectomy Stented coronary artery Family History Father Heavy cigarette smoker Throat cancer Mother Heart disease Social History Household Members: None Household Members Other:: shares house with a friend Housing: House Are you a primary critical care nurse practitioner to a significant other at home: No Do you presently have visiting nurse or other home services: No Alcohol intake: never Comment: resting eyes closed Patient Tobacco Use Status: Former Tobacco user Quit Date: 7 months Tobacco use type: Cigarette Years Smoked: 8 +/- e-Cigarette/Vaping Use: Never Used Second Hand Smoke Exposure: No Advance Directives Date on File: 12/16/20 service: No Current occupational status: employed and retired Office Procedures Cardiac Device Check Cardiac Device Check Details: Date of service- 06/16/2023 ; Battery life 7.5 months; normal lead parameters; AP 41%; [employer] <1%; no significant arrhythmias. V noise reversion noted- stable. Overall normal device function. [id number] Cardiac Device Interrogation, pacemaker Procedure code (CPT) selection complete Assessment & Plan Assessment & Plan (1) PAF (paroxysmal atrial fibrillation): Code(s): I48.0 - Paroxysmal atrial fibrillation Plan x Coding Level of Care Code Procedure Only Diagnoses PAF (paroxysmal atrial fibrillation) I48.0 CPT Codes Cardiac Device Check - Cardiac Device 12: [id number] Cardiac Device Interrogation, pacemaker ([id number])
== END ==
PROVIDERS: PCP Internal Medicine Geriatric Medicine; Visit Provider Internal Medicine
DX: I48.0 Paroxysmal atrial fibrillation (principal); Z95.0 Presence of cardiac pacemaker
CPT/HCPCS: 93294

== ENCOUNTER 2023-07-07 08:51 | Outpatient (AMB) | payer MEDICARE, MEDICAID, SELFPAY ==
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
== END 2023-07-07 10:27 | disposition home or self-care (01) ==
PROVIDERS: PCP Internal Medicine Geriatric Medicine; Visit Provider Orthopaedic Surgery
DX: M19.011 Primary osteoarthritis, right shoulder (principal)
CPT/HCPCS: 20610; 99214

== ENCOUNTER 2023-07-07 08:51 | Outpatient (REF) | payer MEDICARE, MEDICAID, SELFPAY ==
--- NOTE | ~2023-07-07 | XR_ITS ---
EXAMINATION: XR SHOULDER, RIGHT CLINICAL INFORMATION: Pain in unspecified shoulder. COMPARISON: 03/20/2023 TECHNIQUE: 3 views of the right shoulder. FINDINGS: Moderate degenerative changes in the acromioclavicular joint with joint space narrowing and hypertrophic change. Advanced degenerative changes in the glenohumeral joint with loss of the glenohumeral space and hypertrophic change as well as periarticular cystic changes with remodeling/sclerosis. XR/XR shoulder RT min 2V IMPRESSION: 1. Advanced degenerative changes in the glenohumeral joint. 2. Moderate degenerative changes in the acromioclavicular joint.
== END 2023-07-07 08:52 | disposition home or self-care (01) ==
LOC: HO.HOSX 08:51
PROVIDERS: PCP Internal Medicine Geriatric Medicine; Visit Provider Orthopaedic Surgery
DX: M19.011 Primary osteoarthritis, right shoulder (principal)
CPT/HCPCS: 20610; 73030; 99212; J0665; J1100

== ENCOUNTER 2023-07-10 12:09 | Outpatient (REF) | payer MEDICARE, MEDICAID, SELFPAY ==
[2023-07-10 13:41] LABS: Cholesterol 191 mg/dL (<200); HDL Cholesterol 54 mg/dL (>40); LDL Cholesterol Calculated 103 mg/dL (<100); Triglycerides 172 mg/dL (<150)
== END 2023-07-10 12:10 | disposition home or self-care (01) ==
LOC: HO.HHCL 12:09
PROVIDERS: Visit Provider Internal Medicine Geriatric Medicine
DX: I25.118 Atherosclerotic heart disease of native coronary artery with other forms of angina pectoris (principal)
CPT/HCPCS: 36415; 80061

== ENCOUNTER 2023-07-31 07:55 | Outpatient (REF) | payer MEDICARE, MEDICAID, SELFPAY ==
--- NOTE | ~2023-07-31 | CT_ITS ---
EXAMINATION: CT CHEST SCREENING CLINICAL INFORMATION: 1 pack per day with 10 pack-year history. Quit smoking one year ago. COMPARISON: CT chest 06/13/2022: Scattered areas of nodularity which are felt to be stable. Consider low-dose noncontrast followup in one year for continued evaluation. TECHNIQUE: Multidetector volumetric CT imaging of the chest is performed without contrast using low dose technique. Additional 2D coronal and sagittal reformatted images and axial 3D maximum intensity projection (MIP) images are generated on the CT workstation. This CT examination was performed using dose optimization techniques as appropriate, variously including the following: *Automated exposure control *Adjustment of mA and/or kV according to patient size (this includes techniques or standardized protocols for targeted exams where dose is matched to indication/reason for exam; i.e. extremities or head) *Use of iterative reconstruction technique DLP: 76 mGy-cm FINDINGS: LUNGS: Patchy areas of consolidation that were present at the time of the prior study, much more prominent on the right than the left, have cleared in the interim. A few small scattered micronodules are unchanged. Moran images of all have been saved. In the right lower lobe, there is an area of inspissation of mucus within a bronchus which appears slightly larger than previously seen at 4 mm (5:386, compare prior 4:365). No worrisome mass is seen to suggest malignancy. MEDIASTINUM: Left chest wall dual-lead pacemaker is again noted. Heart size normal. No mediastinal or hilar lymphadenopathy. Visualized thyroid appears unremarkable. CORONARY ARTERY CALCIFICATION: Mild. PLEURA: There is no pleural effusion. No pleural mass or thickening. AXILLA: No lymphadenopathy. UPPER ABDOMEN: Calcified hepatic granuloma is again noted. Clips are present in the gallbladder fossa. Some air is present in the bile ducts on the left which appear a bit less dilated than at the time of the prior study. OSSEOUS STRUCTURES: Unremarkable. CT/CT lung screening IMPRESSION: Improvement in appearances since last year's study with resolution of previously demonstrated patchy changes. Some benign-appearing lung nodules remain with no significant change. ASSESSMENT: Lung-RADS category 2: Benign RECOMMENDATION: Routine annual low-dose CT screening in 12 months.
== END 2023-07-31 07:56 | disposition home or self-care (01) ==
LOC: HO.CT 07:55
PROVIDERS: PCP Internal Medicine Geriatric Medicine; Visit Provider Physician Assistant Medical
DX: F17.210 Nicotine dependence, cigarettes, uncomplicated (principal)
CPT/HCPCS: 71271

== ENCOUNTER 2023-08-11 12:05 | Outpatient (AMB) | payer MEDICARE, MEDICAID, SELFPAY ==
--- NOTE | 2023-08-13 18:53 | A.OFFVIS_ITS ---
Intake Intake Visit Reasons: [facility] ck per DC Allergies bee pollen [BEE STINGS] Allergy (Severe, Verified 04/11/23 09:23) ANAPHYLAXIS indomethacin [Indocin] Allergy (Severe, Verified 04/11/23 09:23) anaphylaxis tramadol [Ultram] Allergy (Severe, Verified 04/11/23 09:23) anaphylaxis fentanyl Adverse Reaction (Verified 04/11/23 09:23) Anxiety [facility] Medical History Elevated cholesterol History of chemotherapy Obstructive sleep apnea (~2018) On anticoagulant therapy Personal history of nicotine dependence DVT (deep venous thrombosis) Essential hypertension Tubular adenoma of colon COVID-19 vaccine administered Seizures (~04/2020) GERD (gastroesophageal reflux disease) Esophagitis Atherosclerotic cardiovascular disease Brain lesion Psychotic disorder Syncope Headache Myocardial infarction Pacemaker (~05/2013) Tremor Brain bleed CAD (coronary artery disease) Surgical History Hx of shoulder surgery History of total left knee replacement History of ERCP History of spinal surgery History of colonoscopy (~09/2020) History of right knee surgery (~12/2013) History of total right hip replacement (~06/2012) History of cholecystectomy History of cardiac catheterization History of permanent cardiac pacemaker placement (~05/2013) History of esophagogastroduodenoscopy (EGD) (~09/2020) History of appendectomy Stented coronary artery Family History Father Heavy cigarette smoker Throat cancer Mother Heart disease Social History Household Members: None Household Members Other:: shares house with a friend Housing: House Are you a primary wound care rn to a significant other at home: No Do you presently have visiting nurse or other home services: No Alcohol intake: never Comment: resting eyes closed Patient Tobacco Use Status: Former Tobacco user Quit Date: 7 months Tobacco use type: Cigarette Years Smoked: 8 +/- e-Cigarette/Vaping Use: Never Used Second Hand Smoke Exposure: No Advance Directives Date on File: 12/16/20 service: No Current occupational status: employed and retired Office Procedures Cardiac Device Check Cardiac Device Check Details: DOS 08/11/2023; DDDR 60/130; normal lead parameters; <1% RV pacing; RV lead stable. Ventricular lead noise noted. AP 52%. Battery 1.1years. 24504-EE Cardiac Device Check, pacemaker dual lead Procedure code (CPT) selection complete Assessment & Plan Assessment & Plan (1) Sick sinus syndrome: Code(s): I49.5 - Sick sinus syndrome Plan x Coding Level of Care Code Procedure Only Diagnoses Sick sinus syndrome I49.5 CPT Codes Cardiac Device Check - Cardiac Device 2: 47425-PP Cardiac Device Check, pacemaker dual lead ([id number])
== END 2023-08-11 12:35 | disposition home or self-care (01) ==
PROVIDERS: PCP Internal Medicine Geriatric Medicine; Visit Provider Nurse Practitioner Family
DX: I48.0 Paroxysmal atrial fibrillation (principal); Z95.0 Presence of cardiac pacemaker
CPT/HCPCS: 93280

== ENCOUNTER → 2023-08-11 12:05 | Outpatient (BNVA) | payer MEDICARE, MEDICAID, SELFPAY | PROVIDERS: PCP Internal Medicine Geriatric Medicine; Visit Provider Nurse Practitioner Family | DX: Z45.018 Encounter for adjustment and management of other part of cardiac pacemaker (principal); I49.5 Sick sinus syndrome | CPT/HCPCS: 93280 ==

== ENCOUNTER 2023-09-01 09:42 | Outpatient (REF) | payer MEDICARE, MEDICAID, SELFPAY ==
[2023-09-01 11:54] LABS: MANUAL DIFF FLAG NO
[2023-09-01 12:04] LABS: Basophils Absolute Auto 0.1 X10*3/uL (0.0-0.2); Basophils Percent Auto 1.1 % (0-2); Eosinophils Absolute Auto 0.2 X10*3/uL (0.0-0.4); Eosinophils Percent Auto 2.7 % (0-4); Hematocrit 46.5 % (42.0-52.0); Hemoglobin 15.5 g/dl (14.0-18.0); Imm Gran Abs Auto 0.03 X10*3/uL (0.00-0.03); Imm Gran Pct Auto 0.4 % (0.0-0.4); Lymphocytes Absolute Auto 1.8 X10*3/uL (1.2-4.9); Lymphocytes Percent Auto 23.9 % (20-40); Mean Corpuscular HGB Conc 33.3 g/dl (31.0-36.0); Mean Corpuscular Hemoglobin 29.5 pg (27.0-33.0); Mean Corpuscular Volume 88.4 fL (80.0-98.0); Mean Platelet Volume 8.8 fL (9.4-12.4); Monocytes Absolute Auto 0.5 X10*3/uL (0.1-1.2); Monocytes Percent Auto 6.9 % (2-11); Neutrophils Absolute Auto 4.9 x10*3/uL (2.0-8.3); Platelet Count 341 X10*3/uL (160-400); Red Blood Count 5.26 X10*6/uL (4.60-5.80); Red Cell Distribution Width 12.9 % (11.0-16.0); White Blood Count 7.5 X10*3/uL (4.8-10.8)
[2023-09-01 12:47] LABS: Alanine Aminotransferase 12 U/L (0-40); Albumin Level 4.4 g/dL (3.5-5.0); Alkaline Phosphatase 89 U/L (39-117); Anion Gap 11 (12-20); Aspartate Amino Transferase 16 U/L (5-37); Bilirubin Total 0.5 mg/dL (0.0-1.0); Blood Urea Nitrogen 14 mg/dL (9-16); Calcium 9.7 mg/dL (8.4-10.2); Carbon Dioxide 28 mmol/L (22-29); Chloride 104 mmol/L (96-108); Estimated Glomerular Filt Rate > 60; Glucose Random 114 mg/dL (60-115); Potassium 4.3 mmol/L (3.3-5.1); Sodium 139 mmol/L (135-145); Total Protein 7.7 g/dL (6.5-8.0)
== END 2023-09-01 09:43 | disposition home or self-care (01) ==
LOC: HO.HHCL 09:42
PROVIDERS: Visit Provider Internal Medicine Geriatric Medicine
DX: Z13.89 Encounter for screening for other disorder (principal)
CPT/HCPCS: 36415; 80053; 85025

== ENCOUNTER 2023-09-01 11:30 | Outpatient (REF) | payer MEDICARE, MEDICAID, SELFPAY ==
[2023-09-01 13:53] LABS: MANUAL DIFF FLAG NO
[2023-09-01 14:08] LABS: Basophils Absolute Auto 0.1 X10*3/uL (0.0-0.2); Basophils Percent Auto 0.9 % (0-2); Eosinophils Absolute Auto 0.2 X10*3/uL (0.0-0.4); Hematocrit 45.2 % (42.0-52.0); Imm Gran Abs Auto 0.02 X10*3/uL (0.00-0.03); Imm Gran Pct Auto 0.3 % (0.0-0.4); Lymphocytes Absolute Auto 2.2 X10*3/uL (1.2-4.9); Lymphocytes Percent Auto 28.6 % (20-40); Mean Corpuscular HGB Conc 33.2 g/dl (31.0-36.0); Mean Corpuscular Hemoglobin 29.7 pg (27.0-33.0); Mean Corpuscular Volume 89.5 fL (80.0-98.0); Mean Platelet Volume 8.9 fL (9.4-12.4); Monocytes Absolute Auto 0.6 X10*3/uL (0.1-1.2); Monocytes Percent Auto 8.3 % (2-11); Neutrophils Absolute Auto 4.5 x10*3/uL (2.0-8.3); Neutrophils Percent Auto 58.9 % (45-73); Platelet Count 348 X10*3/uL (160-400); Red Blood Count 5.05 X10*6/uL (4.60-5.80); Red Cell Distribution Width 13.1 % (11.0-16.0); White Blood Count 7.7 X10*3/uL (4.8-10.8)
[2023-09-01 14:54] LABS: Alanine Aminotransferase 12 U/L (0-40); Albumin Level 4.4 g/dL (3.5-5.0); Alkaline Phosphatase 90 U/L (39-117); Anion Gap 14 (12-20); Aspartate Amino Transferase 17 U/L (5-37); Bilirubin Total 0.4 mg/dL (0.0-1.0); Blood Urea Nitrogen 15 mg/dL (9-16); C Reactive Protein 1.35 mg/dL (< or = 0.50); Calcium 9.5 mg/dL (8.4-10.2); Carbon Dioxide 27 mmol/L (22-29); Chloride 103 mmol/L (96-108); Estimated Glomerular Filt Rate > 60; Glucose Random 117 mg/dL (60-115); Lipase 14 U/L (8-78); Potassium 4.1 mmol/L (3.3-5.1); Sodium 140 mmol/L (135-145); Total Protein 7.6 g/dL (6.5-8.0)
[2023-09-02 04:55] LABS: HBS Num1 14.21 mIU/mL (0-7.99); HBc Num1 0.08 S/CO (0.00-0.79); HBsAGNum1 0.34 S/CO (0.00-0.99); Hepatitis A Antibody IgM 0.13 Index (0-0.79); Hepatitis B Core Antibody Nonreactive (Nonreactive); Hepatitis B Surface Antigen Negative (Negative); ~HepC Num1 0.17 S/CO (0.00-0.79); ~Hepatitis A Antibody IgM Nonreactive (Nonreactive); ~Hepatitis B Surface Antibody REACTIVE (Nonreactive); ~Hepatitis C Antibody Nonreactive (Nonreactive)
== END 2023-09-01 11:31 | disposition home or self-care (01) ==
LOC: HO.HHCL 11:30
PROVIDERS: Visit Provider Emergency Medicine
DX: R10.32 Left lower quadrant pain (principal); I10 Essential (primary) hypertension; I25.118 Atherosclerotic heart disease of native coronary artery with other forms of angina pectoris; I48.0 Paroxysmal atrial fibrillation; Z11.59 Encounter for screening for other viral diseases; Z79.01 Long term (current) use of anticoagulants; Z72.89 Other problems related to lifestyle
CPT/HCPCS: 36415; 80053; 83690; 85025; 86140; 86704; 86706; 86709; 86803; 87340

== ENCOUNTER 2023-09-02 08:22 | Emergency (ER) | payer MEDICARE, MEDICAID, SELFPAY ==
--- NOTE | ~2023-09-02 | CT_ITS ---
EXAMINATION: CT ABDOMEN AND PELVIS WITH CONTRAST CLINICAL INFORMATION: Left lower quadrant pain. History of diverticulitis. COMPARISON: Previous CT of the abdomen and pelvis November 2022 TECHNIQUE: Multidetector volumetric images were obtained from the superior aspect of the liver through the pubic symphysis following administration 85 mL of Omnipaque 350 intravenous contrast. Sagittal and coronal reformatted images were obtained on the technologist's workstation. Oral contrast: Yes This CT examination was performed using dose optimization techniques as appropriate, variously including the following: *Automated exposure control *Adjustment of mA and/or kV according to patient size (this includes techniques or standardized protocols for targeted exams where dose is matched to indication/reason for exam; i.e. extremities or head) *Use of iterative reconstruction technique DLP: 683 mGy-cm FINDINGS: LUNG BASES: The visualized lung bases are unremarkable. LIVER, GALLBLADDER, AND BILIARY TREE: The liver is normal in size, shape, and attenuation. There is intrahepatic biliary duct dilatation, left greater than right. The common bile duct is slightly dilated measuring up to 1.2 cm. These findings are similar to November 2022 exam. The gallbladder is been removed. There is air seen in the left lobe of the liver. This is seen both centrally and peripherally in the lateral segment of the left lobe and it is difficult to discern whether this is biliary or portal vein air. There is a small stable benign-appearing calcification high in the right lobe of the liver. PANCREAS: Unremarkable. SPLEEN: Unremarkable. ADRENAL GLANDS: Unremarkable. KIDNEYS AND URETERS: The kidneys are normal in size, shape, and attenuation. No hydronephrosis, hydroureter, or calculi seen. No perinephric stranding. BLADDER: Not optimally distended. There is question of mild diffuse bladder wall thickening. GASTROINTESTINAL TRACT: There is mild diverticulosis of the colon. No evidence of diverticulitis is seen. There is question of long segment mild wall thickening of the sigmoid colon and rectum questionable for proctocolitis. No evidence of pneumatosis. No mesenteric vein are seen. Small duodenal diverticulum adjacent to the head of the pancreas. Small and bowel is normal. The stomach is normal. The appendix is not seen. ABDOMINAL WALL: No significant hernia is appreciated. LYMPH NODES: Normal. VASCULAR: Atherosclerotic disease. No aneurysm. PELVIC VISCERA: The prostate gland is slightly enlarged measuring 4 x 5 cm in AP and transverse dimensions. The seminal vesicles appear prominent and are increased in size from November 2022 exam.. OSSEOUS STRUCTURES: Right hip replacement. Degenerative changes of the spine.. CT/CT abdomen pelvis w IV con IMPRESSION: Diverticulosis. No evidence of diverticulitis. Long segment of mild wall thickening of the distal colon and rectum questionable for proctocolitis. Enlarged prostate gland and enlarged seminal vesicles. Clinically correlate for prostatitis. Bladder not optimally distended but there is also question of mild diffuse bladder wall thickening. Constellation of findings raise question of post radiation changes in the pelvis. Clinically correlate for history of prostate cancer and radiation treatment. Intrahepatic biliary duct dilatation, left side greater than right and mild extrahepatic biliary duct dilatation. This is similar to November 2022 exam. The gallbladder has been removed. New air seen in the lateral segment of the left lobe of the liver. Some of this appears central and some of this appears peripheral and it is difficult to discern whether this is air in the portal veins versus biliary air. This is a new finding from November 2022. Clinically correlate with surgical history, i.e. is there history of previous papillotomy? Correlation with serum lactate level recommended as well. Fleischner guidelines were followed. Findings will be communicated by the [facility] bagging machine operator.
[2023-09-02 08:31] VITALS: BP 168/94; PULSE 70; RESP 18; TEMP 37.2; O2SAT 96; BMI 27.9
--- NOTE | 2023-09-02 09:05 | ED.ABDPAIN ---
HPI - Abdominal Pain General Chief Complaint: Abdominal Pain Stated Complaint: Lower abd pain Time Seen by Provider: 09/02/23 08:54 Source: patient and old records reviewed Mode of arrival: ambulatory Limitations: no limitations History of Present Illness HPI narrative: 68 yo male with PMH of aflutter on eliquis, SSS s/p PPM, CAD, DVT, GERD, PAD, choledocholithiasis, diverticulitis, s/p appendectomy and cholecystectomy here with c/o 1 week worsening LLQ pain with associated n/v/d some scant streaks of blood on paper and stool. Subjective fevers. Worried he has diverticulitis. No antibiotics recently. No change in urine. Saw PCP who advised him to come to ED yesterday. MD elicited complaint: abdominal pain Pertinent past history: diverticulitis Onset (ago): week(s) (1) Pain Consistency: constant Location: LLQ Severity: moderate Quality: aching Radiation: none Migration to: no migration Relieving factors: movement Context: history of similar episodes Associated symptoms: nausea, vomiting, diarrhea, fever and chills Related Data Home Medications Medication Instructions Recorded Confirmed aspirin 81 mg tablet,delayed 81 mg PO DAILY 04/25/20 01/27/23 release (Adult Low Dose Aspirin) rosuvastatin 40 mg tablet (Crestor) 40 mg PO BEDTIME chloestrol 04/25/20 01/27/23 oxycodone 10 mg tablet 10 mg PO Q5H PRN Moderate Pain 04/26/20 01/27/23 (Scale Score 5-6) divalproex 250 mg tablet,extended 250 mg PO BEDTIME 09/08/20 01/27/23 release 24 hr (Depakote ER) ezetimibe 10 mg tablet (Zetia) 10 mg PO DAILY 10/24/20 01/27/23 multivitamin (Daily Vitamin 1 tab PO DAILY 10/24/20 01/27/23 Formula tablet) apixaban 5 mg tablet (Eliquis) 5 mg PO BID 01/08/21 01/27/23 primidone 250 mg tablet 250 mg PO BID 03/05/22 01/27/23 cyclobenzaprine 10 mg tablet 1 tab PO BID PRN Muscle Spasm 06/13/22 01/27/23 isosorbide mononitrate 30 mg 30 mg PO DAILY 09/10/22 01/27/23 tablet,extended release 24 hr ranolazine 1,000 mg 1,000 mg PO BID 09/10/22 01/27/23 tablet,extended release,12 hr lisinopril 5 mg tablet 5 mg PO DAILY 12/09/22 01/27/23 Previous Rx's Medication Instructions Recorded lidocaine 5 % topical patch 1 patch topical DAILY PRN pain #15 11/14/22 ea ondansetron 4 mg disintegrating 4 mg PO Q6H PRN nausea and 11/14/22 tablet vomiting #14 tabs amlodipine 10 mg tablet 10 mg PO DAILY #90 tabs 01/27/23 dicyclomine 10 mg capsule 10 mg PO TID PRN abdominal pain 03/12/23 #60 caps acetaminophen 500 mg tablet 500 mg PO Q6H PRN fever or pain 03/20/23 (Tylenol Extra Strength) #14 tabs cyclobenzaprine 5 mg tablet 5 mg PO Q8H PRN pain (scale score 03/20/23 7-10) 5 days #14 tabs lidocaine 5 % topical patch 1 patch topical DAILY PRN pain #30 03/20/23 (Lidoderm) ea metoprolol tartrate 100 mg tablet 100 mg PO BID 90 days #180 tabs 04/01/23 hyoscyamine sulfate 0.125 mg 0.125 mg PO BID-QID PRN dyspepsia 06/23/23 disintegrating tablet #30 tabs nitroglycerin 0.4 mg sublingual 0.4 mg sublingual Q5M PRN chest 06/23/23 tablet (Nitrostat) pain #25 tabs esomeprazole magnesium 40 mg 40 mg PO QAM #30 caps 08/05/23 capsule,delayed release amoxicillin 875 mg-potassium 1 tab PO BID #14 tabs 09/02/23 clavulanate 125 mg tablet metronidazole 500 mg tablet 500 mg PO BID 7 days #14 tabs 09/02/23 morphine 15 mg immediate release 15 mg PO Q6H PRN pain #14 tabs 09/02/23 tablet ondansetron 4 mg disintegrating 4 mg PO Q8H PRN nausea and 09/02/23 tablet vomiting #20 tabs Allergies Allergy/AdvReac Type Severity Reaction Status Date / Time bee pollen [BEE STINGS] Allergy Severe ANAPHYLAXIS Verified 09/02/23 08:35 indomethacin [Indocin] Allergy Severe anaphylaxis Verified 09/02/23 08:35 tramadol [Ultram] Allergy Severe anaphylaxis Verified 09/02/23 08:35 fentanyl AdvReac Anxiety Verified 09/02/23 08:35 Review of Systems Review of Systems Constitutional : No Weight loss, pos Fever, pos Chills ENT/Mouth : No sore throat, No Rhinorrhea Eyes: No Swelling, No Redness Cardiovascular : No Chest Pain, No SOB, NoEdema Respiratory : No Cough, No Sputum, No Wheezing Gastrointestinal : Positive Nausea, Positive Vomiting, positive Diarrhea, positive abdominal Pain, pos Hematochezia, No Melena Genitourinary : No Dysuria, No Urinary Frequency, No Hematuria, No Urgency Musculoskeletal : No joint pain, No Myalgias, No Joint Swelling Skin : No Skin Lesions, No rash Neuro : No Weakness, No Numbness, No Dizziness, No Headache Psych : No Anxiety/Panic, No Depression All other systems reviewed and are negative. [facility] Past Medical History Attestation statement: The following information was validated with the patient. Source: old records reviewed Medical History Elevated cholesterol History of chemotherapy Obstructive sleep apnea (~2018) On anticoagulant therapy Personal history of nicotine dependence DVT (deep venous thrombosis) Essential hypertension Tubular adenoma of colon COVID-19 vaccine administered Seizures (~04/2020) GERD (gastroesophageal reflux disease) Esophagitis Atherosclerotic cardiovascular disease Brain lesion Psychotic disorder Syncope Headache Myocardial infarction Pacemaker (~05/2013) Tremor Brain bleed CAD (coronary artery disease) Surgical History Hx of shoulder surgery History of total left knee replacement History of ERCP History of spinal surgery History of colonoscopy (~09/2020) History of right knee surgery (~12/2013) History of total right hip replacement (~06/2012) History of cholecystectomy History of cardiac catheterization History of permanent cardiac pacemaker placement (~05/2013) History of esophagogastroduodenoscopy (EGD) (~09/2020) History of appendectomy Stented coronary artery Family History Family History Father Heavy cigarette smoker Throat cancer Mother Heart disease Social History Social History Household Members: None Household Members Other:: shares house with a friend Housing: House Are you a primary acute care occupational therapist to a significant other at home: No Do you presently have visiting nurse or other home services: No Alcohol intake: never Comment: resting eyes closed Patient Tobacco Use Status: Former Tobacco user Quit Date: 7 months Tobacco use type: Cigarette Years Smoked: 8 +/- Smoked in Last 30 Days: No e-Cigarette/Vaping Use: Never Used Second Hand Smoke Exposure: No Advance Directives: Yes Advance Directives on File: Yes Advance Directives Date on File: 12/16/20 service: No Current occupational status: employed and retired Physical Exam ED Vital Signs: Vital Signs - 24 hr 09/02/23 08:31 09/02/23 12:27 09/02/23 14:44 Temperature 99.0 F 97.6 F 97.6 F Pulse Rate 70 62 62 Respiratory Rate 18 16 16 Blood Pressure 168/94 H 165/90 H 165/90 H Pulse Oximetry 96 96 96 Oxygen Delivery Method Room Air Room Air Room Air BMI result Body Mass Index 27.9 Appearance: Alert. Oriented X3. No acute distress. Eyes: Pupils equal, round and reactive to light. ENT: Pharynx normal. Neck: Normal inspection. Neck supple. CVS: Normal heart rate and rhythm. Pulses normal. Respiratory: No respiratory distress. Breath sounds normal. Abdomen: Soft and moderate LLQ pain no rebound Rectal: brown clear , no pain noted on exam to suggest prostatitis Skin: Skin warm and dry. Normal skin color. Normal skin turgor. Extremities: No lower extremity edema. No calf ttp Neuro: Oriented X 3. No motor deficit. No sensory deficit. Course Course Course Narrative: discussed with Dr. Melchor findings are normal and to be expected Medical Decision Making Medical Decision Making MDM Narrative: 68 yo male with PMH of aflutter on eliquis, SSS s/p PPM, CAD, DVT, GERD, PAD, choledocholithiasis, diverticulitis, s/p appendectomy and cholecystectomy here with 1 week of LLQ pain with subj fevers and chills n/v and has had looser stools and noted intermittent scant streaks of blood. Worried he has a diverticulitis. At this time labs, IV morphine for pain, CT scan for diverticulitis, renal colic, colitis Differential Diagnosis Differential Diagnoses: The differential diagnosis associated with the presentation includes diverticulitis, renal colic, colitis Admission/Observation Consideration of admission/observation: Escalation of care including admission/observation considered possible proctocolitis no blood on occult stool no prostate ttp on exam discussed with GI about air seen stable VS no WBC count, normal LFTs wants to trial oral antibiotics at home, tolerating PO, pain improved Consult Healthcare Provider Management of the patient was discussed with: Engine Dispatcher (GI - expected variant post ERCP) Lab Data MDM Lab Attestation statement: I reviewed the patient's lab results. 09/02/23 09:16 09/02/23 09:16 Labs: Lab Results 09/02/23 09/02/23 Range/Units 09:16 12:28 WBC 8.3 (4.8-10.8) X10*3/uL RBC 4.99 (4.60-5.80) X10*6/uL Hgb 15.0 (14.0-18.0) g/dl Hct 44.0 (42.0-52.0) % MCV 88.2 (80.0-98.0) fL MCH 30.1 (27.0-33.0) pg MCHC 34.1 (31.0-36.0) g/dl RDW 12.8 (11.0-16.0) % Plt Count 304 (160-400) X10*3/uL MPV 8.4 L (9.4-12.4) fL Immature Gran % (Auto) 0.2 (0.0-0.4) % Neut % (Auto) 69.4 (45-73) % Lymph % (Auto) 20.4 (20-40) % [place] % (Auto) 7.0 (2-11) % Eos % (Auto) 2.3 (0-4) % Baso % (Auto) 0.7 (0-2) % Lymph # (Auto) 1.7 (1.2-4.9) X10*3/uL [place] # (Auto) 0.6 (0.1-1.2) X10*3/uL Eos # (Auto) 0.2 (0.0-0.4) X10*3/uL Baso # (Auto) 0.1 (0.0-0.2) X10*3/uL Abs Immat Gran (auto) 0.02 (0.00-0.03) X10*3/uL Absolute Neuts (auto) 5.7 (2.0-8.3) x10*3/uL Absolute Nucleated RBC 0.000 (0.0-0.012) X10*3/uL Nucleated RBC % (auto) 0.0 (0.0-0.2) /100WBC Sodium 137 (135-145) mmol/L Potassium 4.2 (3.3-5.1) mmol/L Chloride 104 (96-108) mmol/L Carbon Dioxide 25 (22-29) mmol/L Anion Gap 12 (12-20) BUN 16 (9-16) mg/dL Creatinine 0.80 (0.5-1.4) mg/dL Estim Creat Clear Calc 99.0 Estimated GFR > 60 Random Glucose 113 (60-115) mg/dL Calcium 9.3 (8.4-10.2) mg/dL Total Bilirubin 0.6 (0.0-1.0) mg/dL Direct Bilirubin 0.2 (0.0-0.5) mg/dL AST 15 (5-37) U/L ALT 10 (0-40) U/L Alkaline Phosphatase 88 (39-117) U/L Total Protein 7.3 (6.5-8.0) g/dL Albumin 4.1 (3.5-5.0) g/dL Lipase 15 (8-78) U/L Urine Color Dark Yellow Urine Appearance Clear Urine pH 6.5 (5.0-9.0) Ur Specific [place] 1.025 (1.005-1.025) Urine Protein Negative (Neg-Trace) mg/dL Urine Glucose (UA) Negative (Negative) mg/dL Urine Ketones Negative (Negative) mg/dL Urine Blood Negative (Negative) Urine Nitrite Negative (Negative) Ur Leukocyte Esterase Negative (Negative) Stool Occult Blood NEGATIVE (NEGATIVE) Independent Interpretation I performed an independent interpretation of an: CT Scan (possible proctocolitis) Radiology Impression Discussion of test interpretation with radiology: I have reviewed the radiologist's reading. External Record Review External record reviewed: Inpatient record Prescription Management I considered prescription management with: Pain Medication and Antibiotic Medications Administered Discontinued Medications Generic Name Dose Route Start Last Admin Trade Name Freq PRN Reason Stop Dose Admin Hydromorphone HCl 0.5 mg 09/02/23 12:30 09/02/23 12:51 Hydromorphone Hcl 0.5 Mg/0.5 Ml Syringe IVPUSH 09/02/23 12:31 0.5 mg ONCE ONE Administration Protocol Iohexol 100 ml 09/02/23 11:58 09/02/23 11:58 Iohexol 350 Mg/Ml 100 Ml Infus..Btl IV 09/02/23 11:59 85 ml ONCE ONE Administration Morphine Sulfate 4 mg 09/02/23 09:14 09/02/23 09:39 Morphine Sulfate 4 Mg/Ml Cartridge IVPUSH 09/02/23 09:15 4 mg ONCE ONE Administration Protocol Ondansetron HCl 4 mg 09/02/23 09:14 09/02/23 09:39 Ondansetron Hcl 4 Mg/2 Ml Vial IVPUSH 09/02/23 09:15 4 mg ONCE ONE Administration Critical Care Time Critical Care Time Critical Care Time: Yes Total Critical Care Time: 45 Attestation: repeat IV pain medications with improvement in pain, medical consult, review of records I attest to this time spent taking care of the patient Discharge Plan Discharge Clinical Impression: Proctocolitis Patient Disposition: Home, Self-Care Instructions: Acute Nausea and Vomiting (ED), Acute Diarrhea (ED), Colitis (ED) Additional Instructions: return for worsening symptoms, fevers, increased bloody stools, pain, weakness, or any other concerns. follow up with Dr. Garza's office please call for outpatient follow up appointment. do not drink alcohol with antibiotics Prescriptions: New amoxicillin-pot clavulanate 875-125 mg tablet 1 tab PO BID Qty: 14 0RF metronidazole 500 mg tablet 500 mg PO BID 7 Days Qty: 14 0RF morphine 15 mg tablet 15 mg PO Q6H PRN (Reason: pain) Qty: 14 0RF Rx Instructions: partial fill okay; Partial Fill upon patient request. ondansetron 4 mg tablet,disintegrating 4 mg PO Q8H PRN (Reason: nausea and vomiting) Qty: 20 0RF No Action dicyclomine 10 mg capsule 10 mg PO TID PRN (Reason: abdominal pain) Qty: 60 2RF metoprolol tartrate 100 mg tablet 100 mg PO BID 90 Days Qty: 180 3RF hyoscyamine sulfate 0.125 mg tablet,disintegrating 0.125 mg PO BID-QID PRN (Reason: dyspepsia) Qty: 30 0RF nitroglycerin [Nitrostat] 0.4 mg tablet, sublingual 0.4 mg sublingual Q5M PRN (Reason: chest pain) Qty: 25 2RF Rx Instructions: Do not exceed 3 doses per chest pain episode esomeprazole magnesium 40 mg capsule,delayed release(DR/EC) 40 mg PO QAM Qty: 30 3RF aspirin [Adult Low Dose Aspirin] 81 mg tablet,delayed release (DR/EC) 81 mg PO DAILY rosuvastatin [Crestor] 40 mg tablet 40 mg PO BEDTIME oxycodone 10 mg Tablet 10 mg PO Q5H PRN (Reason: Moderate Pain (Scale Score 5-6)) divalproex [Depakote ER] 250 mg tablet extended release 24 hr 250 mg PO BEDTIME cyclobenzaprine 10 mg tablet 1 tab PO BID PRN (Reason: Muscle Spasm) isosorbide mononitrate 30 mg tablet extended release 24 hr 30 mg PO DAILY ranolazine 1,000 mg tablet extended release 12 hr 1,000 mg PO BID lidocaine [Lidoderm] 5 % adhesive patch,medicated 1 patch topical DAILY MDD remove after 12 hours PRN (Reason: pain) Qty: 30 0RF Rx Instructions: leave on most painful area for up to 12 hrs acetaminophen [Tylenol Extra Strength] 500 mg tablet 500 mg PO Q6H PRN (Reason: fever or pain) Qty: 14 0RF cyclobenzaprine 5 mg tablet 5 mg PO Q8H PRN (Reason: pain (scale score 7-10)) 5 Days Qty: 14 0RF lidocaine 5 % adhesive patch,medicated 1 patch topical DAILY PRN (Reason: pain) Qty: 15 0RF Rx Instructions: leave on most painful area for up to 12 hrs ondansetron 4 mg tablet,disintegrating 4 mg PO Q6H PRN (Reason: nausea and vomiting) Qty: 14 0RF Eliquis 5 mg tablet 5 mg PO BID Hold Instructions: Resume on 09/17/22. ezetimibe [Zetia] 10 mg tablet 10 mg PO DAILY multivitamin [Daily Vitamin Formula] Tablet 1 tab PO DAILY primidone 250 mg tablet 250 mg PO BID amlodipine 10 mg tablet 10 mg PO DAILY Qty: 90 3RF lisinopril 5 mg tablet 5 mg PO DAILY Interventions: ED Discharge Assessment Last Done: 09/02/23 14:44 Discharge Date/Time: 09/02/23 14:44
[2023-09-02 09:26] LABS: MANUAL DIFF FLAG NO
[2023-09-02 09:27] LABS: Basophils Absolute Auto 0.1 X10*3/uL (0.0-0.2); Basophils Percent Auto 0.7 % (0-2); Eosinophils Absolute Auto 0.2 X10*3/uL (0.0-0.4); Eosinophils Percent Auto 2.3 % (0-4); Imm Gran Abs Auto 0.02 X10*3/uL (0.00-0.03); Imm Gran Pct Auto 0.2 % (0.0-0.4); Lymphocytes Absolute Auto 1.7 X10*3/uL (1.2-4.9); Lymphocytes Percent Auto 20.4 % (20-40); Mean Corpuscular HGB Conc 34.1 g/dl (31.0-36.0); Mean Corpuscular Hemoglobin 30.1 pg (27.0-33.0); Mean Corpuscular Volume 88.2 fL (80.0-98.0); Mean Platelet Volume 8.4 fL (9.4-12.4); Monocytes Absolute Auto 0.6 X10*3/uL (0.1-1.2); Neutrophils Absolute Auto 5.7 x10*3/uL (2.0-8.3); Neutrophils Percent Auto 69.4 % (45-73); Platelet Count 304 X10*3/uL (160-400); Red Blood Count 4.99 X10*6/uL (4.60-5.80); Red Cell Distribution Width 12.8 % (11.0-16.0); White Blood Count 8.3 X10*3/uL (4.8-10.8)
[2023-09-02 09:30] LABS: OBS1 NEGATIVE (NEGATIVE)
[2023-09-02 09:31] LABS: OBS Int Ctl Valid YES
[2023-09-02] MEDS: ondansetron HCL 4 MG/2 ML VIAL IVPUSH (09:39)
[2023-09-02] MEDS: Morphine Sulfate 4 MG/ML CARTRIDGE IVPUSH (09:39)
--- NOTE | 2023-09-02 09:43 | PC.NURSE ---
alert and oriented, respirations even and unlabored. IV established, labs obtained and sent. ambulated independently with steady gait. medicated per the MAR, awaiting CT scan at this time.
[2023-09-02 09:58] LABS: Alanine Aminotransferase 10 U/L (0-40); Albumin Level 4.1 g/dL (3.5-5.0); Alkaline Phosphatase 88 U/L (39-117); Anion Gap 12 (12-20); Aspartate Amino Transferase 15 U/L (5-37); Bilirubin Direct 0.2 mg/dL (0.0-0.5); Bilirubin Total 0.6 mg/dL (0.0-1.0); Blood Urea Nitrogen 16 mg/dL (9-16); Calcium 9.3 mg/dL (8.4-10.2); Carbon Dioxide 25 mmol/L (22-29); Chloride 104 mmol/L (96-108); Estimated Glomerular Filt Rate > 60; Glucose Random 113 mg/dL (60-115); Potassium 4.2 mmol/L (3.3-5.1); Sodium 137 mmol/L (135-145); Total Protein 7.3 g/dL (6.5-8.0)
[2023-09-02] MEDS: iohexoL 350 MG/ML 100 ML INFUS..BTL IV (11:58)
[2023-09-02 12:27] VITALS: BP 165/90; PULSE 62; RESP 16; TEMP 36.4; O2SAT 96
[2023-09-02 12:42] LABS: Appearance Urine Clear; Color Urine Dark Yellow; Glucose Urine UA Negative (Negative); Leukocyte Esterase Urine Negative (Negative); Nitrite Urine Negative (Negative); PH 6.5 (5.0-9.0); Specific Gravity - Urine 1.025 (1.005-1.025); Urine Blood Negative (Negative); Urine Ketones Negative (Negative); Urine Protein Negative (Neg-Trace)
[2023-09-02] MEDS: HYDROmorphone HCl 0.5 MG/0.5 ML SYRINGE IVPUSH (12:51)
--- NOTE | 2023-09-02 12:55 | PC.NURSE ---
continues to endorse pain, medicated per the MAR. continues to rest quietly in room watching tv. call [facility] within reach
[2023-09-02 14:20] LABS: Lipase 15 U/L (8-78)
[2023-09-02 14:44] VITALS: BP 165/90; PULSE 62; RESP 16; TEMP 36.4; O2SAT 96
== END 2023-09-02 14:44 | disposition home or self-care (01) ==
PROVIDERS: Emergency Provider Emergency Medicine; PCP Internal Medicine Geriatric Medicine
DX: K51.30 Ulcerative (chronic) rectosigmoiditis without complications (principal); R10.32 Left lower quadrant pain; Z79.899 Other long term (current) drug therapy
CPT/HCPCS: 36415; 74177; 80053; 81003; 82248; 82272; 83690; 85025; 96374; 96375; 99284; J1170; J2270; J2405; Q9967

== ENCOUNTER 2023-09-12 11:02 | Outpatient (AMB) | payer MEDICARE, MEDICAID, SELFPAY ==
--- NOTE | 2023-09-12 11:14 | MHC.OFFVIS ---
Intake Vital Signs 09/12/23 11:15 Height 5 ft 11 in Weight 205 lb 0.478 oz BMI 28.6 BP 178/77 H Blood Pressure Location Lt brachial Position Sitting Pulse 67 Intake Visit Reasons: ED follow up Intake Note: Myles presents in the office as a ED follow up. CC: he states since he was seen in the ED he has gotten worse. he was given morphine but he did not fill it due to being home alone. Allergies bee pollen [BEE STINGS] Allergy (Severe, Verified 09/12/23 11:15) ANAPHYLAXIS indomethacin [Indocin] Allergy (Severe, Verified 09/12/23 11:15) anaphylaxis tramadol [Ultram] Allergy (Severe, Verified 09/12/23 11:15) anaphylaxis fentanyl Adverse Reaction (Verified 09/12/23 11:15) Anxiety HPI ED follow up HPI Details 68-year-old gentleman with past medical history of atrial fibrillation on apixaban, sick sinus syndrome status post pacemaker implantation ([place] accent), coronary artery disease, GERD, GERD, s/p CCY who I am seeing for f/u RECAP: He was admitted with abn LFT and choledocholithiasis 09/[address] abdomen pelvis revealed dilated CBD to 1.2 cm with filling defects in the distal CBD and atrophic pancreas He had an ERCP with sludge removed, needed a repeat ERCP due to ongoing complaints few days later but the CBD was normal LFT 11/2022--nml LFT and HGB egd.colo 02/2023 Endoscopy Findings: gastritis duodenitis esophagitis Colonoscopy Findings: polyps internal hemorrhoids diverticular disease poor-fair prep PAth: TA and gastric congestion INTERIM: he has had few weeks of left sided abdominal pain noted some diarrhea, occ formed stools he went to ED and he had CT with proctocolitis and enlarged prostate he was given augmentin and flagyl he feels the antibiotics made no difference he has some epiosdes of nausea, vomited few times, appetite is not so good EXAM: GENERAL: The patient is well developed and nontoxic. VITAL SIGNS:see workflow HEENT: Nonicteric sclerae, PERRLA, EOMI. Oropharynx clear. Moist mucous membranes. Conjunctivae appear well perfused. No thyroid mass. CHEST: Chest wall is nontender. HEART: Regular rate and rhythm without murmurs. LUNGS: Clear to auscultation bilaterally. ABDOMEN: Soft, positive bowel sounds, mildly tender LLQ .no flank tenderness SKIN: No rash, no excessive bruising, petechiae, or purpura. NEUROLOGIC: Cranial nerves II-XII intact without motor/sensory deficit. A?P: 1/ Colon polyps, fair prep 2/ proctocolitis, not better with ABx PLAN: 1/ stool testing for lactoferrin, c diff, and Gi panel 2/ might need earlier colonoscopy 3/ trial of apriso---he is unable to take enema [facility] Medical History Elevated cholesterol History of chemotherapy Obstructive sleep apnea (~2018) On anticoagulant therapy Personal history of nicotine dependence DVT (deep venous thrombosis) Essential hypertension Tubular adenoma of colon COVID-19 vaccine administered Seizures (~04/2020) GERD (gastroesophageal reflux disease) Esophagitis Atherosclerotic cardiovascular disease Brain lesion Psychotic disorder Syncope Headache Myocardial infarction Pacemaker (~05/2013) Tremor Brain bleed CAD (coronary artery disease) Surgical History Hx of shoulder surgery History of total left knee replacement History of ERCP History of spinal surgery History of colonoscopy (~09/2020) History of right knee surgery (~12/2013) History of total right hip replacement (~06/2012) History of cholecystectomy History of cardiac catheterization History of permanent cardiac pacemaker placement (~05/2013) History of esophagogastroduodenoscopy (EGD) (~09/2020) History of appendectomy Stented coronary artery Family History Father Heavy cigarette smoker Throat cancer Mother Heart disease Social History Household Members: None Household Members Other:: shares house with a friend Housing: House Are you a primary nurse wound care to a significant other at home: No Do you presently have visiting nurse or other home services: No Alcohol intake: never Comment: resting eyes closed Patient Tobacco Use Status: Former Tobacco user Quit Date: 7 months Tobacco use type: Cigarette Years Smoked: 8 +/- e-Cigarette/Vaping Use: Never Used Second Hand Smoke Exposure: No Advance Directives Date on File: 12/16/20 service: No Current occupational status: employed and retired Physical Exam Vital Signs: Last Vital Signs Pulse 67 09/12/23 11:15 BP 178/77 H 09/12/23 11:15 BMI result Body Mass Index 28.6 Assessment & Plan Assessment & Plan (1) Diarrhea: Code(s): R19.7 - Diarrhea, unspecified Plan: A?P: 1/ Colon polyps, fair prep 2/ proctocolitis, not better with ABx PLAN: 1/ stool testing for lactoferrin, c diff, and Gi panel 2/ might need earlier colonoscopy 3/ trial of apriso---he is unable to take enema Orders: Orders GI Panel Today R19.7 - Diarrhea, unspecified Lactoferrin, Fecal, Quant. Today K51.50 - Left sided colitis without complications, R19.7 - Diarrhea, unspecified CDiff Gene PCR Today R19.7 - Diarrhea, unspecified Medications: New mesalamine ER (Apriso) 1.5 grams (4 x 0.375 gram) PO QAM 120 caps 0RF Coding Level of Care Code Est Pt Level 3 (51865) Diagnoses Diarrhea R19.7
[2023-09-12 11:15] VITALS: BP 178/77; PULSE 67; BMI 28.6
== END 2023-09-12 11:50 | disposition home or self-care (01) ==
PROVIDERS: PCP Internal Medicine Geriatric Medicine; Visit Provider Internal Medicine Gastroenterology
DX: R19.7 Diarrhea, unspecified (principal)
CPT/HCPCS: 99213

== ENCOUNTER 2023-09-12 11:02 | Outpatient (REF) | payer MEDICARE, MEDICAID, SELFPAY | END 2023-09-12 11:03 | disposition home or self-care (01) | LOC: HO.LAB 11:02 | PROVIDERS: PCP Internal Medicine Geriatric Medicine; Visit Provider Internal Medicine Gastroenterology | DX: K21.9 Gastro-esophageal reflux disease without esophagitis (principal); K51.50 Left sided colitis without complications; R10.9 Unspecified abdominal pain; R19.7 Diarrhea, unspecified; Z95.0 Presence of cardiac pacemaker; Z79.899 Other long term (current) drug therapy | CPT/HCPCS: 99212 ==

== ENCOUNTER 2023-09-19 09:24 | Outpatient (AMB) | payer MEDICARE, MEDICAID, SELFPAY ==
--- NOTE | 2023-09-19 09:25 | MHC.OFFVIS ---
Intake Intake Visit Reasons: 1 week follow up Intake Note: Myles presents as a video call. CC: Seen in the ED for abdominal pains and a week ago in the office with Kayla. States that he is still feeling the same symptoms nothing has changed. Nuclear Spectroscopist Required: No Allergies bee pollen [BEE STINGS] Allergy (Severe, Verified 09/19/23 09:27) ANAPHYLAXIS indomethacin [Indocin] Allergy (Severe, Verified 09/19/23 09:27) anaphylaxis tramadol [Ultram] Allergy (Severe, Verified 09/19/23 09:27) anaphylaxis fentanyl Adverse Reaction (Verified 09/19/23 09:27) Anxiety HPI 1 week follow up HPI Details 68-year-old gentleman with past medical history of atrial fibrillation on apixaban, sick sinus syndrome status post pacemaker implantation ([place] accent), coronary artery disease, GERD, GERD, s/p CCY who I am seeing for f/u RECAP: He was admitted with abn LFT and choledocholithiasis 09/[address] imaging including CT abdomen pelvis revealed dilated CBD to 1.2 cm with filling defects in the distal CBD and atrophic pancreas He had an ERCP with sludge removed, needed a repeat ERCP due to ongoing complaints few days later but the CBD was normal LFT 11/2022--nml LFT and HGB egd.colo 02/2023 Endoscopy Findings: gastritis duodenitis esophagitis Colonoscopy Findings: polyps internal hemorrhoids diverticular disease poor-fair prep PAth: TA and gastric congestion INTERIM: He started apriso with some relief his stool tests were stolen! nausea has improved appetite is fair, still A?P: 1/ Colon polyps, fair prep 2/ proctocolitis, not better with ABx, mild relief with apriso but just started PLAN: 1/ stool testing for lactoferrin, c diff, and Gi panel--reordered 2/ might need earlier colonoscopy as discussed before with him 3/ cont apriso [facility] Medical History Elevated cholesterol History of chemotherapy Obstructive sleep apnea (~2018) On anticoagulant therapy Personal history of nicotine dependence DVT (deep venous thrombosis) Essential hypertension Tubular adenoma of colon COVID-19 vaccine administered Seizures (~04/2020) GERD (gastroesophageal reflux disease) Esophagitis Atherosclerotic cardiovascular disease Brain lesion Psychotic disorder Syncope Headache Myocardial infarction Pacemaker (~05/2013) Tremor Brain bleed CAD (coronary artery disease) Surgical History Hx of shoulder surgery History of total left knee replacement History of ERCP History of spinal surgery History of colonoscopy (~09/2020) History of right knee surgery (~12/2013) History of total right hip replacement (~06/2012) History of cholecystectomy History of cardiac catheterization History of permanent cardiac pacemaker placement (~05/2013) History of esophagogastroduodenoscopy (EGD) (~09/2020) History of appendectomy Stented coronary artery Family History Father Heavy cigarette smoker Throat cancer Mother Heart disease Social History Household Members: None Household Members Other:: shares house with a friend Housing: House Are you a primary career placement specialist to a significant other at home: No Do you presently have visiting nurse or other home services: No Alcohol intake: never Comment: resting eyes closed Patient Tobacco Use Status: Former Tobacco user Quit Date: 7 months Tobacco use type: Cigarette Years Smoked: 8 +/- e-Cigarette/Vaping Use: Never Used Second Hand Smoke Exposure: No Advance Directives Date on File: 12/16/20 service: No Current occupational status: employed and retired Assessment & Plan Assessment & Plan (1) Diarrhea: Code(s): R19.7 - Diarrhea, unspecified Plan: see above Telehealth Telehealth Location of provider rendering services: practice address Location of patient: address on file Patient Identification confirmed using: Name, : Yes Telehealth method: voice only Patient verbally consented to treatment: Yes Patient verbally consented to billing insurance company: Yes Patient informed of any privacy concerns related to visit: Yes Minutes spent on Phone/Video with Pt.: 6 Coding Level of Care Code Tele Est Pt Level 3 (34256) Diagnoses Diarrhea R19.7
== END 2023-09-19 09:58 | disposition home or self-care (01) ==
LOC: HO.HGI 09:25
PROVIDERS: PCP Internal Medicine Geriatric Medicine; Visit Provider Internal Medicine Gastroenterology
DX: R19.7 Diarrhea, unspecified (principal)
CPT/HCPCS: 99441

== ENCOUNTER → 2023-09-19 09:24 | Outpatient (BNVA) | payer MEDICARE, MEDICAID, SELFPAY | PROVIDERS: PCP Internal Medicine Geriatric Medicine; Visit Provider Internal Medicine Gastroenterology ==

== ENCOUNTER 2023-09-21 20:30 | Outpatient (REF) | payer MEDICARE, MEDICAID, SELFPAY ==
[2023-09-22 11:06] LABS: CDiff Gene PCR NEGATIVE (Negative)
[2023-09-22 14:31] LABS: Adenovirus F 40/41 Not Detected (Not Detect.); Astrovirus Not Detected (Not Detect.); Campylobacter Not Detected (Not Detect.); Cryptosporidium Not Detected (Not Detect.); Cyclospora cayetanensis Not Detected (Not Detect.); E. coli EAEC Not Detected (Not Detect.); E. coli EPEC Not Detected (Not Detect.); E. coli ETEC Not Detected (Not Detect.); E. coli STEC Not Detected (Not Detect.); Entamoeba histolytica Not Detected (Not Detect.); Giardia lamblia Not Detected (Not Detect.); Norovirus GI/GII Not Detected (Not Detect.); Plesiomonas shigelloides Not Detected (Not Detect.); Rotavirus A Not Detected (Not Detect.); Salmonella Not Detected (Not Detect.); Sapovirus Not Detected (Not Detect.); Shigella sp./EIEC Not Detected (Not Detect.); Vibrio Not Detected (Not Detect.); Vibrio Cholerae Not Detected (Not Detect.); Yersinia enterocolitica Not Detected (Not Detect.)
[2023-09-27 17:43] LABS: Lactoferrin, Fecal, Quant. <6.25 mcg/mL (<7.25)
== END 2023-09-21 20:31 | disposition home or self-care (01) ==
LOC: HO.LNP 20:30
PROVIDERS: Visit Provider Internal Medicine Gastroenterology
DX: R19.7 Diarrhea, unspecified (principal); K51.50 Left sided colitis without complications
CPT/HCPCS: 83631; 87493; 87507

== ENCOUNTER 2023-10-14 08:58 | Outpatient (AMB) | payer MEDICARE, MEDICAID, SELFPAY ==
[2023-10-14 09:08] VITALS: BP 130/82; PULSE 60; BMI 28.3
--- NOTE | 2023-10-14 09:08 | A.OFFVIS_ITS ---
Vital Signs 10/14/23 09:08 Height 5 ft 11 in Weight 202 lb 13.204 oz BMI 28.3 BP 130/82 Blood Pressure Location Lt brachial Position Sitting Pulse 60 Pulse Source Monitor Intake Visit Reasons: follow yp per PCP General Assembler Installer Required: No Allergies bee pollen [BEE STINGS] Allergy (Severe, Verified 10/14/23 09:11) ANAPHYLAXIS indomethacin [Indocin] Allergy (Severe, Verified 10/14/23 09:11) anaphylaxis tramadol [Ultram] Allergy (Severe, Verified 10/14/23 09:11) anaphylaxis fentanyl Adverse Reaction (Verified 10/14/23 09:11) Anxiety Medication List - Last Reconciled 10/14/23 by JANETH Art acetaminophen (Tylenol Extra Strength) 500 mg PO Q6H PRN amlodipine 10 mg PO DAILY apixaban (Eliquis) 5 mg PO BID aspirin (Adult Low Dose Aspirin) 81 mg PO DAILY cyclobenzaprine 1 tab PO BID PRN divalproex ER (Depakote ER) 250 mg PO BEDTIME esomeprazole magnesium 40 mg PO QAM ezetimibe (Zetia) 10 mg PO DAILY hyoscyamine sulfate 0.125 mg PO BID-QID PRN isosorbide mononitrate ER 60 mg PO DAILY lidocaine 5% 1 patch topical DAILY PRN lidocaine 5% (Lidoderm) 1 patch topical DAILY PRN MDD remove after 12 hours lisinopril 5 mg PO DAILY mesalamine ER (Apriso) 1.5 grams (4 x 0.375 gram) PO QAM metoprolol tartrate 100 mg PO BID 90 days metronidazole 500 mg PO BID 7 days multivitamin (Daily Vitamin Formula tablet) 1 tab PO DAILY nitroglycerin (Nitrostat) 0.4 mg sublingual Q5M PRN ondansetron 4 mg PO Q8H PRN oxycodone 10 mg PO Q5H PRN pantoprazole 40 mg PO primidone 250 mg PO BID ranolazine ER 1,000 mg PO BID rosuvastatin (Crestor) 40 mg PO BEDTIME sodium,potassium,mag sulfates 17.5-3.13-1.6 gram (Suprep Bowel Prep Kit) DILUTE; drink 1/2 at 6-8 pm and half at 11 PM- 1AM HPI HPI follow yp per PCP: Details: Myles is a 68-year-old male with past medical history of hypertension, hyperlipidemia, sick sinus syndrome, pacemaker in place, CAD, multiple cardiac catheterizations with PCI, stents, last 07/10/2021, PAF, DVT and on Eliquis who presents for follow-up. Today he reports that he had been doing well since his last visit 02/06/2023. He was not getting any chest discomfort until the last 3 weeks. He is now reporting symptoms with stair climbing and walking. Will get a pain in his mid chest as severe as 7/10. He also notices shortness of breath, diaphoresis, discomfort into his left arm. At times his symptoms will go away with rest. Has been taking nitroglycerin 1-2 tablets as needed for symptoms. He has not been getting symptoms brought on by rest or waking him in the night. He reports compliance with all his medications. No presyncope, syncope, falls. No PND, orthopnea or edema. 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 [facility] Medical History Elevated cholesterol History of chemotherapy Obstructive sleep apnea (~2018) On anticoagulant therapy Personal history of nicotine dependence DVT (deep venous thrombosis) Essential hypertension Tubular adenoma of colon COVID-19 vaccine administered Seizures (~04/2020) GERD (gastroesophageal reflux disease) Esophagitis Atherosclerotic cardiovascular disease Brain lesion Psychotic disorder Syncope Headache Myocardial infarction Pacemaker (~05/2013) Tremor Brain bleed CAD (coronary artery disease) Surgical History Hx of shoulder surgery History of total left knee replacement History of ERCP History of spinal surgery History of colonoscopy (~09/2020) History of right knee surgery (~12/2013) History of total right hip replacement (~06/2012) History of cholecystectomy History of cardiac catheterization History of permanent cardiac pacemaker placement (~05/2013) History of esophagogastroduodenoscopy (EGD) (~09/2020) History of appendectomy Stented coronary artery Family History Father Heavy cigarette smoker Throat cancer Mother Heart disease Social History Household Members: None Household Members Other:: shares house with a friend Housing: House Are you a primary acute care nurse to a significant other at home: No Do you presently have visiting nurse or other home services: No Alcohol intake: never Comment: resting eyes closed Patient Tobacco Use Status: Former Tobacco user Quit Date: 7 months Tobacco use type: Cigarette Years Smoked: 8 +/- e-Cigarette/Vaping Use: Never Used Second Hand Smoke Exposure: No Advance Directives Date on File: 12/16/20 service: No Current occupational status: employed and retired Review of Systems Const All systems reviewed & are unremarkable except as noted in HPI and below Reports fatigue ENT Denies dizziness Card Details: sweating and left arm pain with activity Reports chest pain, Denies chest pain at rest, Reports chest pain with activity, Denies rapid heart rate, Denies pedal edema, Denies edema, Denies leg edema, Denies lightheadedness, Denies palpitations, Reports dyspnea, Reports dyspnea on exertion and Denies orthopnea Resp Denies cough, Reports dyspnea and Reports dyspnea on exertion GI Denies hematochezia and Denies change in stool character Musc Denies abnormal gait, Reports limited range of motion, Reports muscle cramps, Denies muscle weakness, Denies numbness, Denies radiating pain into limb, Denies stiffness and Denies tingling Neuro Denies abnormal gait, Denies dizziness, Denies numbness and Denies tingling Endo Reports fatigue and Denies palpitations Physical Exam Vital Signs: Last Vital Signs Pulse 60 10/14/23 09:08 BP 130/82 10/14/23 09:08 BMI result Body Mass Index 28.3 Const General: cooperative, healthy appearing, comfortable and no acute distress Orientation/consciousness: patient oriented x3 Neck Neck: Yes normal visual inspection Resp Effort & Inspection: normal respiratory effort Auscultation: clear to auscultation bilaterally, no rales, no rhonchi and no wheezes Cardio Jugular venous distension: no JVD Rate: regular rate Rhythm: regular rhythm Heart sounds: S1 normal heart sound present, S2 normal heart sound present, no murmurs and no rubs Neuro General: patient oriented x3 Extrem General: Yes normal to inspection and No no pedal edema Psych Appearance: grossly normal Mental Status: mental status grossly normal Speech and movement: Normal speech and movement present Office Procedures Cardiac Device Check Cardiac Device Check Details: [place] dual-chamber pacemaker interrogation today shows battery 4.3 months, atrial threshold 0.5 volts at 0.5 milliseconds, ventricular threshold 0.5 volts at 0.5 milliseconds, DDDR mode, low rate 60, a paced 54% of time, V paced less than 1% of time, no mode switch, 80 or AF, ventricular noise noted [id number] Cardiac Device Check, pacemaker dual lead Procedure code (CPT) selection complete EKG Details: Today, read by me, atrial paced rhythm, no acute ST or T-wave abnormalities, rate 60, QTC 414 milliseconds [id number], Complete Assessment & Plan Assessment & Plan (1) Exertional angina: Code(s): I20.89 - Other forms of angina pectoris Category: Medical Plan: Reports of exertional symptoms that sound like stable angina. History of CAD with multiple cardiac catheterizations and PCI in the past. He has known stent to the proximal RPL, distal RCA. He had angioplasty to the distal LAD in 2016. His last cardiac catheterization was 07/10/2021 showing patent distal RCA stent, 60% PLV superior branch small size vessel, distal LAD stenosis unchanged, small territory and small-vessel, 40-50% mid LAD stenosis. Patient states he had not been getting chest discomfort for a good part of last year however 3 weeks ago he started getting symptoms which are causing him much concern. He describes mid chest pressure, shortness of breath, diaphoresis, left arm discomfort with exertional physical activity such as climbing stairs and walking distances. He has not having anginal symptoms at rest. EKG done today showing normal sinus rhythm with no acute ST or T-wave abnormalities. He is pain-free at this time. Reviewed case with Dr. Mueller. A nuclear stress test will likely be abnormal on him. Will arrange for cardiac catheterization, question PCI. Procedure and risks reviewed with him. Preprocedure labs ordered. Will increase his isosorbide up from 30 mg daily up to 60 mg daily. He is also on amlodipine and metoprolol for triple antianginal therapy. Continue p.r.n. use of nitroglycerin. Continue aspirin, high-dose rosuvastatin and Zetia. Light physical activity only. Patient informed his symptoms are likely cardiac in nature. Emergency care if needed for symptoms not relieved by rest. States understanding. (2) CAD (coronary artery disease): Comment: (NSTEMI 2012, STEMI 2016, Stents to LAD, rPDA, RPL, cath 01/2020), c atheterization 07/10/2021, no change to anatomy, patent stents Code(s): I25.10 - Atherosclerotic heart disease of [place] coronary artery without angina pectoris Category: Medical Plan: As above (3) Sick sinus syndrome: Code(s): I49.5 - Sick sinus syndrome Category: Medical Plan: Pacemaker in place (4) Pacemaker: Onset Date: ~05/2013 Comment: ([place] DCPP, placed 2012 - device interrogation 08/30/20) Code(s): Z95.0 - Presence of cardiac pacemaker Category: Medical Plan: [place] dual-chamber pacemaker interrogation today shows battery 4.3 months. Device is functioning normally. Remote monitoring in use. Patient aware that device is nearing SHANTELLE and that gen change will be needed at some point in the near future. (5) On anticoagulant therapy: Comment: (Eliquis) Code(s): Z79.01 - retirement (current) use of anticoagulants Category: Medical Plan: Patient is on Eliquis (6) PAF (paroxysmal atrial fibrillation): Code(s): I48.0 - Paroxysmal atrial fibrillation Category: Medical Plan: History of PAF. Device interrogation shows no recent episodes of AT/AF. Patient denies any recent heart palpitations. Continue metoprolol. Continue Eliquis. Plan Time spent on chart review, documentation, interview and assessment Orders: Orders Basic Metabolic Panel Today I20.89 - Other forms of angina pectoris, I25.10 - Atherosclerotic heart disease of [place] coronary artery without angina pectoris Cardiac Cath LT w PCI Today I20.89 - Other forms of angina pectoris, I25.10 - Atherosclerotic heart disease of [place] coronary artery without angina pectoris Complete Blood Count Auto Diff Today I20.89 - Other forms of angina pectoris Prothrombin Time INR Today I20.89 - Other forms of angina pectoris Medications: New isosorbide mononitrate ER 60 mg PO DAILY 90 tabs 1RF Coding Level of Care Code Est Pt Level 4 (74971) Diagnoses Exertional angina I20.89 CAD (coronary artery disease) I25.10 Sick sinus syndrome I49.5 Pacemaker Z95.0 On anticoagulant therapy Z79.01 PAF (paroxysmal atrial fibrillation) I48.0 CPT Codes Cardiac Device Check - Cardiac Device 2: [id number] Cardiac Device Check, pacemaker dual lead ([id number]) EKG - CPT: 29489-[id number], Complete ([id number]) Time Spent (min) 36
== END 2023-10-14 10:03 | disposition home or self-care (01) ==
PROVIDERS: PCP Internal Medicine Geriatric Medicine; Visit Provider Nurse Practitioner Family
DX: I25.118 Atherosclerotic heart disease of native coronary artery with other forms of angina pectoris (principal); I49.5 Sick sinus syndrome; Z95.0 Presence of cardiac pacemaker; Z79.01 Long term (current) use of anticoagulants; I48.0 Paroxysmal atrial fibrillation
CPT/HCPCS: 93010; 93280; 99214

== ENCOUNTER → 2023-10-14 08:58 | Outpatient (BNVA) | payer MEDICARE, MEDICAID, SELFPAY | PROVIDERS: PCP Internal Medicine Geriatric Medicine; Visit Provider Nurse Practitioner Family | DX: I25.118 Atherosclerotic heart disease of native coronary artery with other forms of angina pectoris (principal); I49.5 Sick sinus syndrome; I48.0 Paroxysmal atrial fibrillation; I25.2 Old myocardial infarction; Z79.01 Long term (current) use of anticoagulants; Z79.82 Long term (current) use of aspirin; Z79.899 Other long term (current) drug therapy; Z45.018 Encounter for adjustment and management of other part of cardiac pacemaker | CPT/HCPCS: 93005; 93280; 99212 ==

== ENCOUNTER 2023-10-24 09:51 | Outpatient (REF) | payer MEDICARE, MEDICAID, SELFPAY ==
[2023-10-24 10:16] LABS: MANUAL DIFF FLAG NO
[2023-10-24 11:03] LABS: Basophils Absolute Auto 0.1 X10*3/uL (0.0-0.2); Eosinophils Absolute Auto 0.3 X10*3/uL (0.0-0.4); Eosinophils Percent Auto 3.6 % (0-4); Hematocrit 43.1 % (42.0-52.0); Hemoglobin 14.7 g/dl (14.0-18.0); Imm Gran Abs Auto 0.04 X10*3/uL (0.00-0.03); Imm Gran Pct Auto 0.5 % (0.0-0.4); Lymphocytes Absolute Auto 2.1 X10*3/uL (1.2-4.9); Lymphocytes Percent Auto 26.3 % (20-40); Mean Corpuscular HGB Conc 34.1 g/dl (31.0-36.0); Mean Corpuscular Hemoglobin 30.1 pg (27.0-33.0); Mean Corpuscular Volume 88.3 fL (80.0-98.0); Mean Platelet Volume 8.5 fL (9.4-12.4); Monocytes Absolute Auto 0.6 X10*3/uL (0.1-1.2); Monocytes Percent Auto 7.9 % (2-11); Neutrophils Absolute Auto 4.9 x10*3/uL (2.0-8.3); Neutrophils Percent Auto 60.7 % (45-73); Platelet Count 342 X10*3/uL (160-400); Prothrombin Time 11.7 SEC (11.1-13.3); Red Blood Count 4.88 X10*6/uL (4.60-5.80); Red Cell Distribution Width 12.9 % (11.0-16.0); White Blood Count 8.1 X10*3/uL (4.8-10.8)
[2023-10-24 11:39] LABS: Anion Gap 13 (12-20); Blood Urea Nitrogen 17 mg/dL (9-16); Calcium 9.4 mg/dL (8.4-10.2); Carbon Dioxide 27 mmol/L (22-29); Chloride 104 mmol/L (96-108); Estimated Glomerular Filt Rate > 60; Glucose Random 114 mg/dL (60-115); Sodium 140 mmol/L (135-145)
== END 2023-10-24 09:52 | disposition home or self-care (01) ==
LOC: HO.LAB 09:51
PROVIDERS: PCP Internal Medicine Geriatric Medicine; Visit Provider Nurse Practitioner Family
DX: I25.118 Atherosclerotic heart disease of native coronary artery with other forms of angina pectoris (principal)
CPT/HCPCS: 36415; 80048; 85025; 85610

== ENCOUNTER → 2023-11-04 23:59 | Outpatient (BNV) | payer MEDICARE, MEDICAID, SELFPAY | PROVIDERS: PCP Internal Medicine Geriatric Medicine; Visit Provider Internal Medicine Cardiovascular Disease | DX: I20.0 Unstable angina (principal) | CPT/HCPCS: 93458; 93571; 99152 ==

== ENCOUNTER 2023-11-20 09:14 | Outpatient (AMB) | payer MEDICARE, MEDICAID, SELFPAY ==
[2023-11-20 09:55] VITALS: BP 100/62; PULSE 60; BMI 29.0
--- NOTE | 2023-11-20 09:55 | A.OFFVIS_ITS ---
Vital Signs 11/20/23 09:55 Height 5 ft 11 in Weight 208 lb 1.862 oz BMI 29.0 BP 100/62 Blood Pressure Location Lt brachial Position Sitting Pulse 60 Pulse Source Pulse Oximeter Intake Visit Reasons: Follow up post cardiac cath Environmental Marketing Representative Required: No Allergies bee pollen [BEE STINGS] Allergy (Severe, Verified 11/20/23 09:58) ANAPHYLAXIS indomethacin [Indocin] Allergy (Severe, Verified 11/20/23 09:58) anaphylaxis tramadol [Ultram] Allergy (Severe, Verified 11/20/23 09:58) anaphylaxis fentanyl Adverse Reaction (Verified 11/20/23 09:58) Anxiety Medication List - Last Reconciled 11/20/23 by JANETH Art acetaminophen (Tylenol Extra Strength) 500 mg PO Q6H PRN amlodipine 10 mg PO DAILY apixaban (Eliquis) 5 mg PO BID aspirin (Adult Low Dose Aspirin) 81 mg PO DAILY cyclobenzaprine 1 tab PO BID PRN divalproex ER (Depakote ER) 250 mg PO BEDTIME esomeprazole magnesium 40 mg PO QAM ezetimibe (Zetia) 10 mg PO DAILY hyoscyamine sulfate 0.125 mg PO BID-QID PRN isosorbide mononitrate ER 60 mg PO DAILY lidocaine 5% 1 patch topical DAILY PRN lidocaine 5% (Lidoderm) 1 patch topical DAILY PRN MDD remove after 12 hours lisinopril 5 mg PO DAILY mesalamine ER (Apriso) 1.5 grams (4 x 0.375 gram) PO QAM metoprolol tartrate 100 mg PO BID 90 days metronidazole 500 mg PO BID 7 days multivitamin (Daily Vitamin Formula tablet) 1 tab PO DAILY nitroglycerin (Nitrostat) 0.4 mg sublingual Q5M PRN ondansetron 4 mg PO Q8H PRN oxycodone 10 mg PO Q5H PRN pantoprazole 40 mg PO primidone 250 mg PO BID ranolazine ER 1,000 mg PO BID rosuvastatin (Crestor) 40 mg PO BEDTIME sodium,potassium,mag sulfates 17.5-3.13-1.6 gram (Suprep Bowel Prep Kit) DILUTE; drink 1/2 at 6-8 pm and half at 11 PM- 1AM HPI HPI Follow up post cardiac cath: Details: Myles is a 68-year-old male with past medical history of hypertension, hyperlipidemia, sick sinus syndrome, pacemaker in place, CAD, multiple cardiac catheterizations with PCI, stents, last 07/10/2021, PAF, DVT and on Eliquis who presents for follow-up after recent cardiac catheterization.. Today he reports that he had been doing well since his last visit until yesterday. He describes having an episode of heart palpitations followed by some shortness of breath and chest discomfort. He did take nitroglycerin. His coworkers told him he was white. He states his symptoms persisted for 45 minutes and resolved. He continued working and did not seek emergency medical care. He feels well today with no symptoms. No current chest discomfort, shortness of breath, palpitations, lightheadedness, presyncope, syncope, PND, orthopnea or edema. His prior chest discomfort with walking has improved. He has not been getting the left arm discomfort since his last visit. His right radial catheterization site feels good. 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 FORMERLY [facility] Medical History Elevated cholesterol History of chemotherapy Obstructive sleep apnea (~2018) On anticoagulant therapy Personal history of nicotine dependence DVT (deep venous thrombosis) Essential hypertension Tubular adenoma of colon COVID-19 vaccine administered Seizures (~04/2020) GERD (gastroesophageal reflux disease) Esophagitis Atherosclerotic cardiovascular disease Brain lesion Psychotic disorder Syncope Headache Myocardial infarction Pacemaker (~05/2013) Tremor Brain bleed CAD (coronary artery disease) Surgical History Hx of shoulder surgery History of total left knee replacement History of ERCP History of spinal surgery History of colonoscopy (~09/2020) History of right knee surgery (~12/2013) History of total right hip replacement (~06/2012) History of cholecystectomy History of cardiac catheterization History of permanent cardiac pacemaker placement (~05/2013) History of esophagogastroduodenoscopy (EGD) (~09/2020) History of appendectomy Stented coronary artery Family History Father Heavy cigarette smoker Throat cancer Mother Heart disease Social History Household Members: None Household Members Other:: shares house with a friend Housing: House Are you a primary career coordinator to a significant other at home: No Do you presently have visiting nurse or other home services: No Alcohol intake: never Comment: resting eyes closed Patient Tobacco Use Status: Former Tobacco user Tobacco use type: Cigarette Years Smoked: 8 +/- e-Cigarette/Vaping Use: Never Used Second Hand Smoke Exposure: No Advance Directives Date on File: 12/16/20 service: No Current occupational status: employed and retired Review of Systems Const All systems reviewed & are unremarkable except as noted in HPI and below ENT Denies dizziness Card Details: episode yesterday with palpitations, chest discomfort Reports chest pain, Denies chest pain at rest, Denies chest pain with activity, Denies rapid heart rate, Denies pedal edema, Denies edema, Denies leg edema, Denies lightheadedness, Denies palpitations, Reports dyspnea, Denies dyspnea on exertion and Denies orthopnea Resp Denies cough, Reports dyspnea and Denies dyspnea on exertion GI Denies hematochezia and Denies change in stool character Musc Denies abnormal gait, Denies limited range of motion, Denies muscle cramps, Denies muscle weakness, Denies numbness, Denies radiating pain into limb, Denies stiffness and Denies tingling Neuro Denies abnormal gait, Denies dizziness, Denies numbness and Denies tingling Endo Denies palpitations Physical Exam Vital Signs: Last Vital Signs Pulse 60 11/20/23 09:55 BP 100/62 11/20/23 09:55 BMI result Body Mass Index 29.0 Const General: cooperative, healthy appearing, comfortable and no acute distress Orientation/consciousness: patient oriented x3 Neck Neck: Yes normal visual inspection Resp Effort & Inspection: normal respiratory effort Auscultation: clear to auscultation bilaterally, no rales, no rhonchi and no wheezes Cardio Jugular venous distension: no JVD Rate: regular rate Rhythm: regular rhythm Heart sounds: S1 normal heart sound present, S2 normal heart sound present, no murmurs and no rubs Neuro General: patient oriented x3 Extrem General: Yes normal to inspection and No no pedal edema Psych Appearance: grossly normal Mental Status: mental status grossly normal Speech and movement: Normal speech and movement present Office Procedures Cardiac Device Check Cardiac Device Check Details: [place] dual-chamber pacemaker interrogation today, battery 2.8 months, atrial threshold 0.5 volts at 0.5 milliseconds, ventricular threshold 0.625 volts at 0.5 milliseconds, DDDR mode, low rate 60, a paced 51%, V paced less than 1%, AF burden less than 1%, V noise noted, 2 recent mode switch episodes, 1 occurred yesterday 15:18 at time when he reported heart palpitations. [id number] Cardiac Device Check, pacemaker dual lead Procedure code (CPT) selection complete Assessment & Plan Assessment & Plan (1) Exertional angina: Code(s): I20.89 - Other forms of angina pectoris Category: Medical Plan: On last visit reported exertional symptoms that sound like stable angina. History of CAD with multiple cardiac catheterizations and PCI in the past. He has known stent to the proximal RPL, distal RCA. He had angioplasty to the distal LAD in 2015. His cardiac catheterization was 07/10/2021 showing patent distal RCA stent, 60% PLV superior branch small size vessel, distal LAD stenosis unchanged, small territory and small-vessel, 40-50% mid LAD stenosis. He described getting mid chest pressure, shortness of breath, diaphoresis, left arm discomfort with exertional physical activity such as climbing stairs and walking distances. He has not having anginal symptoms at rest. EKG done last visit showing normal sinus rhythm with no acute ST or T-wave abnormalities. Reviewed case with Dr. Mueller. We arranged for him to undergo a repeat cardiac catheterization which was done on 11/04/2023 showing no significant change in anatomy, right PDA and RCA stents patent. Today he describes having an episode yesterday where he noticed heart palpitations then became anxious, short of breath and did take nitroglycerin. His symptoms persisted for 45 minutes. Device interrogation does show an episode of atrial fibrillation at that time. Unfortunately it does not give me a length of time for this episode. Reviewed with patient informed him this is likely what he was feeling. Reviewed the heart palpitations alone did not indicate the need for nitroglycerin sublingual. For his coronary disease will have him continue on isosorbide, amlodipine and metoprolol for triple antianginal therapy. He can C ontinue p.r.n. use of nitroglycerin for chest discomfort. Continue aspirin, high-dose rosuvastatin and Zetia. Emergency care if needed for symptoms. Cardiology follow-up 2 months, sooner if needed. (2) CAD (coronary artery disease): Comment: (NSTEMI 2012, STEMI 2016, Stents to LAD, rPDA, RPL, cath 01/2020), catheterization 07/10/2021, no change to anatomy, patent stents Code(s): I25.10 - Atherosclerotic heart disease of [place] coronary artery without angina pectoris Category: Medical Plan: As above (3) Sick sinus syndrome: Code(s): I49.5 - Sick sinus syndrome Category: Medical Plan: Pacemaker in place (4) Pacemaker: Onset Date: ~05/2013 Comment: ([employer] [place] DCPP, placed 2012 - device interrogation 08/30/20) Code(s): Z95.0 - Presence of cardiac pacemaker Category: Medical Plan: [employer] [place] dual-chamber pacemaker interrogation today shows battery 2.8 months. Device is functioning normally. Remote monitoring in use. Patient aware that device is nearing SHANTELLE and that gen change will be needed at some point in the near future. 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 Device interrogation shows brief episode of atrial fibrillation earlier this month lasting seconds and then an episode yesterday however device does not give me a length of time. Patient recalls not feeling well for 45 minutes. Unknown if his AF lasted that long. His blood pressure is low at 1 100/62 today. Will continue on current metoprolol. Continue Eliquis. Discussed stress and caffeine reduction as able. (7) S/P cardiac cath: Comment: 11/04/2023, left main normal, lad apical 80% stenosis, left circumflex mid 60% stenosis, RCA less than 30% stenosis, patent stents in the right PDA and RCA distal Code(s): Z98.890 - Other specified postprocedural states Category: Surgical Plan: Right radial catheterization site well healed Plan Time spent on chart review, documentation, interview and assessment Coding Level of Care Code Est Pt Level 4 (84122) Diagnoses Exertional angina I20.89 CAD (coronary artery disease) I25.10 Sick sinus syndrome I49.5 Pacemaker Z95.0 On anticoagulant therapy Z79.01 PAF (paroxysmal atrial fibrillation) I48.0 S/P cardiac cath Z98.890 CPT Codes Cardiac Device Check - Cardiac Device 2: [id number] Cardiac Device Check, pacemaker dual lead ([id number]) Time Spent (min) 36
== END 2023-11-20 10:37 | disposition home or self-care (01) ==
PROVIDERS: PCP Internal Medicine Geriatric Medicine; Visit Provider Nurse Practitioner Family
DX: I25.118 Atherosclerotic heart disease of native coronary artery with other forms of angina pectoris (principal); I49.5 Sick sinus syndrome; R00.2 Palpitations; Z95.0 Presence of cardiac pacemaker; Z79.01 Long term (current) use of anticoagulants; I48.0 Paroxysmal atrial fibrillation; Z98.890 Other specified postprocedural states
CPT/HCPCS: 93280; 99214

== ENCOUNTER → 2023-11-20 09:14 | Outpatient (BNVA) | payer MEDICARE, MEDICAID, SELFPAY | PROVIDERS: PCP Internal Medicine Geriatric Medicine; Visit Provider Nurse Practitioner Family | DX: I25.118 Atherosclerotic heart disease of native coronary artery with other forms of angina pectoris (principal); I10 Essential (primary) hypertension; I49.5 Sick sinus syndrome; I48.0 Paroxysmal atrial fibrillation; Z98.890 Other specified postprocedural states; Z45.018 Encounter for adjustment and management of other part of cardiac pacemaker; Z95.5 Presence of coronary angioplasty implant and graft; Z79.01 Long term (current) use of anticoagulants | CPT/HCPCS: 93280; 99212 ==

== ENCOUNTER 2023-11-29 18:57 | Emergency (ER) | payer MEDICARE, MEDICAID, SELFPAY ==
--- NOTE | 2023-11-29 19:00 | ECG_ITS ---
Test Reason : CHEST PAIN Blood Pressure : / mmHG Vent. Rate : 060 BPM Atrial Rate : 060 BPM P-R Int : 194 ms QRS Dur : 098 ms QT Int : 426 ms P-R-T Axes : 086 -01 017 degrees QTc Int : 426 ms Atrial-paced rhythm Cannot rule out Inferior infarct (cited on or before 29-NOV-2017) Abnormal ECG When compared with ECG of 13-JUN-2022 18:37, Electronic atrial pacemaker has replaced Sinus rhythm Vent. rate has decreased BY 40 BPM QT has shortened Referred By: Leny Dash Electronically Signed By:JEFFREY BASILIO MD
[2023-11-29 19:20] VITALS: BP 130/78; PULSE 60; RESP 14; TEMP 36.1; O2SAT 97; BMI 30.7
[2023-11-29 19:25] LABS: MANUAL DIFF FLAG NO
[2023-11-29 19:26] LABS: Basophils Absolute Auto 0.1 X10*3/uL (0.0-0.2); Basophils Percent Auto 0.7 % (0-2); Eosinophils Absolute Auto 0.3 X10*3/uL (0.0-0.4); Eosinophils Percent Auto 3.7 % (0-4); Hematocrit 39.3 % (42.0-52.0); Hemoglobin 13.8 g/dl (14.0-18.0); Imm Gran Abs Auto 0.03 X10*3/uL (0.00-0.03); Imm Gran Pct Auto 0.3 % (0.0-0.4); Lymphocytes Absolute Auto 2.5 X10*3/uL (1.2-4.9); Lymphocytes Percent Auto 29.3 % (20-40); Mean Corpuscular HGB Conc 35.1 g/dl (31.0-36.0); Mean Corpuscular Hemoglobin 30.6 pg (27.0-33.0); Mean Corpuscular Volume 87.1 fL (80.0-98.0); Mean Platelet Volume 8.4 fL (9.4-12.4); Monocytes Absolute Auto 0.7 X10*3/uL (0.1-1.2); Monocytes Percent Auto 7.8 % (2-11); Neutrophils Percent Auto 58.2 % (45-73); Platelet Count 294 X10*3/uL (160-400); Red Blood Count 4.51 X10*6/uL (4.60-5.80); White Blood Count 8.6 X10*3/uL (4.8-10.8)
[2023-11-29 19:43] LABS: Alanine Aminotransferase 12 U/L (0-40); Albumin Level 4.2 g/dL (3.5-5.0); Alkaline Phosphatase 88 U/L (39-117); Anion Gap 15 (12-20); Aspartate Amino Transferase 15 U/L (5-37); Bilirubin Total 0.3 mg/dL (0.0-1.0); Blood Urea Nitrogen 18 mg/dL (9-16); Calcium 9.5 mg/dL (8.4-10.2); Carbon Dioxide 24 mmol/L (22-29); Chloride 103 mmol/L (96-108); Estimated Glomerular Filt Rate > 60; Glucose Random 108 mg/dL (60-115); Potassium 4.2 mmol/L (3.3-5.1); Sodium 138 mmol/L (135-145)
[2023-11-29 19:50] LABS: Troponin-I High Sensitivity 3.6 ng/L (<3.5-35.0)
[2023-11-29 19:58] VITALS: BP 128/84; PULSE 60; RESP 16; TEMP 36.8; O2SAT 96
--- NOTE | 2023-11-29 20:05 | ED_ITS ---
HPI - Arrhythmia/Palpitations General Chief Complaint: Arrhythmia/Palpitations Stated Complaint: felt heart racing, has pacemaker, afib Time Seen by Provider: 11/29/23 20:05 Source: patient Mode of arrival: ambulatory History of Present Illness ED Provider: Dr Clarke HPI narrative: 68-year-old male with known atrial fibrillation, states that he has had palpitations while he was at work today without associated dizziness or chest pain and used his coworkers apple watch which identified him as having atrial fibrillation, patient states he is already on medication and blood thinner and has a pacemaker. He currently denies any symptoms. Related Data Home Medications ?Medication ?Instructions ?Recorded ?Confirmed aspirin 81 mg tablet,delayed 81 mg PO DAILY 04/25/20 11/20/23 release (Adult Low Dose Aspirin) rosuvastatin 40 mg tablet (Crestor) 40 mg PO BEDTIME chloestrol 04/25/20 11/20/23 oxycodone 10 mg tablet 10 mg PO Q5H PRN Moderate Pain 04/26/20 11/20/23 (Scale Score 5-6) divalproex 250 mg tablet,extended 250 mg PO BEDTIME 09/08/20 11/20/23 release 24 hr (Depakote ER) ezetimibe 10 mg tablet (Zetia) 10 mg PO DAILY 10/24/20 11/20/23 multivitamin (Daily Vitamin 1 tab PO DAILY 10/24/20 11/20/23 Formula tablet) apixaban 5 mg tablet (Eliquis) 5 mg PO BID 01/08/21 11/20/23 primidone 250 mg tablet 250 mg PO BID 03/05/22 11/20/23 cyclobenzaprine 10 mg tablet 1 tab PO BID PRN Muscle Spasm 06/13/22 11/20/23 ranolazine 1,000 mg 1,000 mg PO BID 09/10/22 11/20/23 tablet,extended release,12 hr lisinopril 5 mg tablet 5 mg PO DAILY 12/09/22 11/20/23 pantoprazole 40 mg tablet,delayed 40 mg PO 09/12/23 11/20/23 release Previous Rx's ?Medication ?Instructions ?Recorded lidocaine 5 % topical patch 1 patch topical DAILY PRN pain #15 11/14/22 ea amlodipine 10 mg tablet 10 mg PO DAILY #90 tabs 01/27/23 acetaminophen 500 mg tablet 500 mg PO Q6H PRN fever or pain 03/20/23 (Tylenol Extra Strength) #14 tabs lidocaine 5 % topical patch 1 patch topical DAILY PRN pain #30 03/20/23 (Lidoderm) ea metoprolol tartrate 100 mg tablet 100 mg PO BID 90 days #180 tabs 04/01/23 hyoscyamine sulfate 0.125 mg 0.125 mg PO BID-QID PRN dyspepsia 06/23/23 disintegrating tablet #30 tabs nitroglycerin 0.4 mg sublingual 0.4 mg sublingual Q5M PRN chest 06/23/23 tablet (Nitrostat) pain #25 tabs esomeprazole magnesium 40 mg 40 mg PO QAM #30 caps 08/05/23 capsule,delayed release metronidazole 500 mg tablet 500 mg PO BID 7 days #14 tabs 09/02/23 ondansetron 4 mg disintegrating 4 mg PO Q8H PRN nausea and 09/02/23 tablet vomiting #20 tabs mesalamine 0.375 gram 1.5 g (4 x 0.375 gram) PO QAM #120 09/12/23 capsule,extended release 24 hr caps (Apriso) sodium,potassium,mag sulfates 17.5 See Rx Instructions PO .COMPLEX 09/23/23 gram-3.13 gram-1.6 gram oral soln #354 mL (Suprep Bowel Prep Kit) isosorbide mononitrate 60 mg 60 mg PO DAILY #90 tabs 10/14/23 tablet,extended release 24 hr Allergies Allergy/AdvReac Type Severity Reaction Status Date / Time bee pollen [BEE STINGS] Allergy Severe ANAPHYLAXIS Verified 11/29/23 19:23 indomethacin [Indocin] Allergy Severe anaphylaxis Verified 11/29/23 19:23 tramadol [Ultram] Allergy Severe anaphylaxis Verified 11/29/23 19:23 fentanyl AdvReac Anxiety Verified 11/29/23 19:23 Review of Systems 2 Review of Systems: Pertinent positives and negatives as stated in [facility] Past Medical History Source: nursing notes reviewed Medical History Elevated cholesterol History of chemotherapy Obstructive sleep apnea (~2018) On anticoagulant therapy Personal history of nicotine dependence DVT (deep venous thrombosis) Essential hypertension Tubular adenoma of colon COVID-19 vaccine administered Seizures (~04/2020) GERD (gastroesophageal reflux disease) Esophagitis Atherosclerotic cardiovascular disease Brain lesion Psychotic disorder Syncope Headache Myocardial infarction Pacemaker (~05/2013) Tremor Brain bleed CAD (coronary artery disease) Surgical History Hx of shoulder surgery History of total left knee replacement History of ERCP History of spinal surgery History of colonoscopy (~09/2020) History of right knee surgery (~12/2013) History of total right hip replacement (~06/2012) History of cholecystectomy History of cardiac catheterization History of permanent cardiac pacemaker placement (~05/2013) History of esophagogastroduodenoscopy (EGD) (~09/2020) History of appendectomy Stented coronary artery Family History Family History Father Heavy cigarette smoker Throat cancer Mother Heart disease Social History Social History Household Members: None Household Members Other:: shares house with a friend Housing: House Are you a primary health care aide to a significant other at home: No Do you presently have visiting nurse or other home services: No Alcohol intake: never Comment: resting eyes closed Patient Tobacco Use Status: Former Tobacco user Tobacco use type: Cigarette Years Smoked: 8 +/- Smoked in Last 30 Days: No e-Cigarette/Vaping Use: Never Used Second Hand Smoke Exposure: No Use of substances other than those prescribed or required for medical reasons: No Advance Directives: Yes Advance Directives on File: Yes Advance Directives Date on File: 12/16/20 Do you have a plan to hurt others: No Plan service: No Current occupational status: employed and retired Physical Exam 2 Vital Signs: Vital Signs: Last Vital Signs Temp 98.2 F 11/29/23 19:58 Pulse 60 11/29/23 19:58 Resp 16 11/29/23 19:58 BP 128/84 11/29/23 19:58 Pulse Ox 96 11/29/23 19:58 O2 Del Method Room Air 11/29/23 19:58 BMI result Body Mass Index 30.7 VITAL SIGNS: Reviewed. GENERAL: Well developed, well nourished, in no acute distress. HEAD: Normocephalic/atraumatic EYES: PERRLA, EOMI LUNGS: Normal breath sounds. No adventitious sounds or accessory muscle use. SpO2<96> CARDIOVASCULAR: Regular rate and rhythm without noted murmurs ABDOMEN: Soft, non-tender, non-distended with bowel sounds. MUSCULOSKELETAL: No tenderness, deformities, or effusions noted on gross inspection. EXTREMITIES: No cyanosis, clubbing or edema. SKIN: Inspection of the skin reveals no rashes NEUROLOGIC: Alert and oriented x 4. Strength and sensation to light touch were grossly intact x 4. Medical Decision Making Medical Decision Making [facility] Narrative: 68-year-old male with history and clinical presentation of breakthrough atrial fibrillation despite taking medications as directed, will rule out infectious or electrolyte etiologies. I reviewed all investigations and hematologic indices are negative for leukocytosis/thrombocytopenia and patient has a stable normocytic anemia similar to prior. Chemistry indices are negative for REBEKAH/electrolyte or liver enzyme derangements in high sensitivity troponin is 3.6. Patient states he otherwise feels well denies any recent illnesses and EKG does not demonstrate atrial fibrillation at this time. Encouraged patient to follow- up with his primary care doctor and reimbursement specialist. Differential Diagnosis Differential Diagnoses: The differential diagnosis associated with the presentation includes Please see the discussion above Admission/Observation Consideration of admission/observation: Escalation of care including admission/observation considered Please see the discussion above Lab Data [facility] Lab Attestation statement: I reviewed the patient's lab results. Please see the discussion above 11/29/23 19:21 11/29/23 19:21 Labs: Lab Results 11/29/23 Range/Units 19:21 WBC 8.6 (4.8-10.8) X10*3/uL RBC 4.51 L (4.60-5.80) X10*6/uL Hgb 13.8 L (14.0-18.0) g/dl Hct 39.3 L (42.0-52.0) % MCV 87.1 (80.0-98.0) fL MCH 30.6 (27.0-33.0) pg MCHC 35.1 (31.0-36.0) g/dl RDW 13.0 (11.0-16.0) % Plt Count 294 (160-400) X10*3/uL MPV 8.4 L (9.4-12.4) fL Immature Gran % (Auto) 0.3 (0.0-0.4) % Neut % (Auto) 58.2 (45-73) % Lymph % (Auto) 29.3 (20-40) % [place] % (Auto) 7.8 (2-11) % Eos % (Auto) 3.7 (0-4) % Baso % (Auto) 0.7 (0-2) % Lymph # (Auto) 2.5 (1.2-4.9) X10*3/uL [place] # (Auto) 0.7 (0.1-1.2) X10*3/uL Eos # (Auto) 0.3 (0.0-0.4) X10*3/uL Baso # (Auto) 0.1 (0.0-0.2) X10*3/uL Abs Immat Gran (auto) 0.03 (0.00-0.03) X10*3/uL Absolute Neuts (auto) 5.0 (2.0-8.3) x10*3/uL Absolute Nucleated RBC 0.000 (0.0-0.012) X10*3/uL Nucleated RBC % (auto) 0.0 (0.0-0.2) /100WBC Sodium 138 (135-145) mmol/L Potassium 4.2 (3.3-5.1) mmol/L Chloride 103 (96-108) mmol/L Carbon Dioxide 24 (22-29) mmol/L Anion Gap 15 (12-20) BUN 18 H (9-16) mg/dL Creatinine 0.78 (0.5-1.4) mg/dL Estim Creat Clear Calc 106.0 Estimated GFR > 60 Random Glucose 108 (60-115) mg/dL Calcium 9.5 (8.4-10.2) mg/dL Total Bilirubin 0.3 (0.0-1.0) mg/dL AST 15 (5-37) U/L ALT 12 (0-40) U/L Alkaline Phosphatase 88 (39-117) U/L Troponin I High Sens 3.6 (<3.5-35.0) ng/L Total Protein 7.0 (6.5-8.0) g/dL Albumin 4.2 (3.5-5.0) g/dL Independent Interpretation I performed an independent interpretation of an: EKG Interpretation: Atrial paced rhythm, HR -60, no STEMI, [place]/QRS/QTC is within normal limits. No significant EKG changes when compared to prior from 06/28/2022 External Record Review External record reviewed: Outpatient record and Prior outpatient labs Chronic Conditions Patient?s care impacted by: Hypertension and Other Paced rhythm, chronic anticoagulation Critical Care Time Critical Care Time Critical Care Time: Yes Total Critical Care Time: 30 Attestation: I personally attest to this time spent taking care of the patient. Discharge Plan Discharge Clinical Impression: Atrial fibrillation with RVR Patient Disposition: Home, Self-Care Instructions: A-fib (Atrial Fibrillation) (ED) Additional Instructions: 1. Resume all home medications as prescribed. 2. Recommend follow-up with primary care doctor and reimbursement specialist. Return to the ER for any worsening symptoms. Prescriptions: No Action metoprolol tartrate 100 mg tablet 100 mg PO BID 90 Days Qty: 180 3RF hyoscyamine sulfate 0.125 mg tablet,disintegrating 0.125 mg PO BID-QID PRN (Reason: dyspepsia) Qty: 30 0RF nitroglycerin [Nitrostat] 0.4 mg tablet, sublingual 0.4 mg sublingual Q5M PRN (Reason: chest pain) Qty: 25 2RF Rx Instructions: Do not exceed 3 doses per chest pain episode esomeprazole magnesium 40 mg capsule,delayed release(DR/EC) 40 mg PO QAM Qty: 30 3RF sodium,potassium,mag sulfates [Suprep Bowel Prep Kit] 17.5-3.13-1.6 gram recon soln See Rx Instructions PO .COMPLEX Qty: 354 0RF Rx Instructions: DILUTE; drink 1/2 at 6-8 pm and half at 11 PM- 1AM aspirin [Adult Low Dose Aspirin] 81 mg tablet,delayed release (DR/EC) 81 mg PO DAILY rosuvastatin [Crestor] 40 mg tablet 40 mg PO BEDTIME oxycodone 10 mg Tablet 10 mg PO Q5H PRN (Reason: Moderate Pain (Scale Score 5-6)) divalproex [Depakote ER] 250 mg tablet extended release 24 hr 250 mg PO BEDTIME cyclobenzaprine 10 mg tablet 1 tab PO BID PRN (Reason: Muscle Spasm) ranolazine 1,000 mg tablet extended release 12 hr 1,000 mg PO BID lidocaine [Lidoderm] 5 % adhesive patch,medicated 1 patch topical DAILY MDD remove after 12 hours PRN (Reason: pain) Qty: 30 0RF Rx Instructions: leave on most painful area for up to 12 hrs acetaminophen [Tylenol Extra Strength] 500 mg tablet 500 mg PO Q6H PRN (Reason: fever or pain) Qty: 14 0RF metronidazole 500 mg tablet 500 mg PO BID 7 Days Qty: 14 0RF ondansetron 4 mg tablet,disintegrating 4 mg PO Q8H PRN (Reason: nausea and vomiting) Qty: 20 0RF lidocaine 5 % adhesive patch,medicated 1 patch topical DAILY PRN (Reason: pain) Qty: 15 0RF Rx Instructions: leave on most painful area for up to 12 hrs Eliquis 5 mg tablet 5 mg PO BID Hold Instructions: Resume on 09/17/22. ezetimibe [Zetia] 10 mg tablet 10 mg PO DAILY multivitamin [Daily Vitamin Formula] Tablet 1 tab PO DAILY primidone 250 mg tablet 250 mg PO BID amlodipine 10 mg tablet 10 mg PO DAILY Qty: 90 3RF isosorbide mononitrate 60 mg tablet extended release 24 hr 60 mg PO DAILY Qty: 90 1RF lisinopril 5 mg tablet 5 mg PO DAILY pantoprazole 40 mg tablet,delayed release (DR/EC) 40 mg PO mesalamine [Apriso] 0.375 gram capsule,extended release 24hr 1.5 g PO QAM Qty: 120 0RF Referrals: [facility] [Primary Care Provider] - Print Language: Hungarian
--- NOTE | 2023-11-29 20:45 | PC.NURSE ---
this rn assumed care of tp, pt a&ox4, respirations even and unlabored, ambulatory.pt reports onset of palpations that began this morning, pt denies chest pain, reports they have now subsided upon assumption of care. pt normal sinus on tele 60bpm and is paced.
[2023-11-29 21:03] VITALS: BP 128/84; PULSE 60; RESP 16; TEMP 36.8; O2SAT 96
--- OUTSIDE RECORDS SUMMARY | 2023-12-04 07:13 | XMS_ITS | Patient Health Record ---
Author Organization Jose Cruz Miranda III, MD Address [address] [place] [address] [place] [address] Care Team Providers Care Dentist Private Practice Name Role Phone Name Memo ARREDONDO Primary Care Provider Jose Cruz Srivastava Unavailable [phone] ALLERGIES Allergen (clinical drug ingredient) Drug/Non Drug [...] (K21.9) Active confirmed Gastroesoph ageal reflux disease (153552675) His reflux symptoms are well controlled with [id number] er medication and are not a problem today. 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 He has been found to have an ejection fraction of 60% with lesions in the right coronary artery, right posterior descending artery and LAD. Stents have been inserted into the coronary arteries in the past. Problem HTN (hypertension) (I10) Active confirmed Hypertension (64229240) His blood pressure today was 112/70 and no change in his regimen was necessary. Problem Tobacco dependence (F17.200) Active confirmed [id number] He was counseled about not smoking and the dangers of tobacco use. I made him aware of the smoking cessation programs available throughout the community. Problem Pacemaker (Z95.0) Active confirmed Cardiac pacemak er in situ (490003030) Pacemaker appears to be functioning well. Problem Tubular adenoma of colon (D12.6) Active confirmed Tubular mone noma of colon (508008814) Problem Syncope (R55) Active confirmed Syncope (319302969) Problem Primary osteoarthritis of both hips (M16.0) Active confirmed [id number] Before he became ill there were plans to do a hip replacement. This has been postponed well. He is anticoagulated . Problem Myocardial infarction, unspecified NH type, unspecified artery (I21.9) Active confirmed Acute myocard ial infarction (disorder) (39820921) Problem Primary osteoarthritis of left knee (M17.12) Active confirmed [id number] He has mina d a knee replacement which is functioning well. Problem Acute deep vein thrombosis (DVT) of proximal vein of left lower extremity (I82.4Y2) Active confirmed [id number] He is now chronically anticoagulated . In the future, a thrombophilia evaluation should be done. This is his second DVT. The first of which was provoked. PLAN OF TREATMENT No Information Insurance Providers Payer Name Payer Address Payer Phone Subscriber Number Group Number Insured Name Patient Relationship to Insured Coverage Start Date Coverage End Date MEDICARE NGS [address] [place] [address] [phone] [id number] Myles Tipton Self - patient is the insured MEDICAID [address] [facility] [place] [id number] [phone] [id number] Myles Tipton Self - patient is the insured MEDICAL (GENERAL) HISTORY Medical History History ICD Code Atherosclerotic heart diseas e of [place] coronary artery with unspecified angina pectoris I25.119 overweight cerebral AVM hyperlipidemia post-op DVT left leg 2008 DVT 12/2020 right knee replacement hiatal hernia colonic polyp cholelithiasis Gastritis Pacemaker Tobacco dependence Hypertension Surgical History Surgery Date(Month/Year) Appendectomy Cardiac Catheterization with stenting EGD pacemaker placement Cholecystectomy Left knee replacement Hospitalization History Reason Date(Month/Year) DVT 12/2020
--- OUTSIDE RECORDS SUMMARY | 2023-12-04 07:13 | XMS_ITS | Continuity of Care Document ---
Author Organization [facility] ter Address [address] [place] [id number]- Care Team Providers Care Dormitory Maid Name Role Phone Name Memo ARREDONDO Primary Care Physician Encounter [facility] [place] Date(s): 11/04/23 - 11/04/[address] [address] Discharge Disposition: A-D/C Home Attending Physician: Jeffy Ballard MD Admitting Physician: Jeffy Ballard MD Referring Physician: Brigitte [employer]IT[employer] SOURCE OPERATIONS OFFICER, Andreea Allergies, Adverse Reactions, Alerts Substance Reaction Severity Status indomethacin Shortness of breath Active methadone 1 Drug-induced psychosis Activ e Ultram 2, 3 Shortness of breath Active Bee Stings Active 1CAUSES PERSONALITY CHANGE 2Pt has tolerated morphine on previous admission in Jul 2017 3causes severe reaction, can't breathe Immunizations Given and Recorded Vaccine Date Status Refusal Reason influenza virus vaccine, inactivated 04/03/18 Give n influenza virus vaccine, inactivated 03/13/10 Give n influenza virus vaccine, inactivated 1 04/10/06 Gi casey pneumococcal 23-valent vaccine 01/30/09 Given 1Admin Note: sanofi pasteur no contraindications Medications amlodipine 10 mg oral tablet 1 tablet = 10 mg, By Mouth, Daily, # 30 tablet, 0 Refills, Maintenance, 02/21/13 11:28:26 EDT, Tablet Start Date: 02/21/13 Stop Date: 03/23/13 Status: Ordered aspirin 81 mg oral delayed release tablet 81 mg, By Mouth, Daily, # 30 tablet, Refills 2, Tot. Refills 2, Maintenance, 11/04/19 14:53:00 EDT,Route to Pharmacy Electronically, [facility], 181, cm, 11/04/19 13:39:00 EDT, Height,88.3, kg, 10/31/19 0:37:00 EDT, Dry Weight Start Date: 11/04/19 Stop Date: 02/02/20 Status: Ordered divalproex sodium 250 mg oral tablet, extended release 1 tablet = 250 mg, By Mouth, Daily, 0 Refills, Maintenance, 11/14/20 16:58:00 EDT, Partial fill upon patient request if the prescription is for a schedule II opioid drug. Start Date: 11/14/20 Status: Ordered Eliquis 5 mg oral tablet 1 tablet = 5 mg, By Mouth, 2 times a day, # 60 tablet, 5 Refills, Maintenance, 07/10/21 6:39:00 EST, Tablet, Partial fill upon patient request if the prescription is for a schedule II opioid drug. Start Date: 07/10/21 Status: Ordered lisinopril 20 mg oral tablet 10 mg, 0.5, tablet, By Mouth, Daily, Refills 0, Maintenance, 08/03/20 14:41:00 EST, Partial fill upon patient request if the prescription is for a schedule II opioid drug. Start Date: 08/03/20 Status: Ordered Metoprolol Tartrate 50 mg oral tablet 1 tablet = 50 mg, By Mouth, 2 times a day, with meals Start Date: 11/14/20 Status: Ordered Multivitamin By Mouth, Daily, 0 Refills, Maintenance Start Date: 02/19/13 Status: Ordered Nexium 40 mg oral enteric coated capsule 1 capsule = 40 mg, By Mouth, Daily, 0 Refills, Maintenance, 11/04/23 11:15:00 EDT, Partial fill upon patient request if the prescription is for a schedule II opioid drug. Start Date: 11/04/23 Status: Ordered nitroglycerin 0.4 mg sublingual tablet 1 tablet = 0.4 mg, Sublingual, Every 5 minutes, 0 Refills, Maintenance, 02/19/13 23:23:47 EDT Start Date: 02/19/13 Status: Ordered ondansetron 4 mg oral tablet 1 tablet = 4 mg, By Mouth, Every 8 hours, # 12 tablet, 0 Refills, Maintenance, 07/10/21 6:41:00 EST, Tablet, Partial fill upon patient request if the prescription is for a schedule II opioid drug. Start Date: 07/10/21 Status: Ordered oxyCODONE 5 mg oral tablet 10 mg, 2, tablet, By Mouth, Every 6 hours, PRN, Refills 0, Tot. Refills 0, Maintenance, Pain , Moderate, 12/13/15 18:07:04 EDT Start Date: 12/13/15 Status: Ordered pantoprazole 40 mg oral delayed release tablet 1 tablet = 40 mg, By Mouth, Daily, # 30 tablet, 0 Refills, Maintenance, 11/14/20 16:57:00 EDT, EC Tablet Start Date: 11/14/20 Status: Ordered Ranexa 1000 mg oral tablet, extended release 1 tablet = 1,000 mg, By Mouth, 2 times a day, # 60 tablet, 0 Refills, Maintenance, 04/02/18 7:31:13EDT, ER Tablet Start Date: 04/02/18 Status: Ordered rosuvastatin 40 mg oral tablet = 40 mg, By Mouth, Daily at bedtime, # 30 tablet, 0 Refills, Maintenance, 05/27/17 12:37:06 EST, Tablet Start Date: 05/27/17 Stop Date: 06/26/17 Status: Ordered Spritam 750 mg oral tablet, dispersible DISSOLVE 1 TABLET BY MOUTH TWICE DAILY Start Date: 07/10/21 Status: Ordered Zetia 10 mg oral tablet 1 tablet = 10 mg, By Mouth, Daily, # 30 tablet, 0 Refills, Maintenance, 10/05/16 22:49:13 EDT, Tablet Start Date: 10/05/16 Status: Ordered Problem List Condition Confirmation Course Effective Dates Status Health Status Informant [D]Non-cardiac chest pain 1 Confirmed Active Androgen deficiency Confirmed Active Chronic drug abuse Confirmed Active CK - Creatine kinase level elevated Confirmed Active DVT - Deep vein thrombosis Confirmed Active Erectile dysfunction Confirmed Active Failed back syndrome Confirmed Active Gastro-esophageal reflux disease Confirmed Active Gout 2 Confirmed Active Hypercholesterolemia Confirmed Active Lumbar radiculopathy Confirmed Active Pain in right leg Confirmed Active Rotator cuff impingement syndrome right Confirmed Active 1negative cardiac cath July 2007 2right wrist with recent prednisone tx, 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 per [facility] Vital Signs Most recent to oldest [Reference Range]: 1 2 3 Height 180 cm (11/04/23 10:15 AM) Weight 92 kg (11/04/23 10:15 AM) Oxygen Saturation [94-100 %] 93 % *L* (11/04/23 6:30 PM) 93 % *L* (11/04/23 6:15 PM) 93 % *L* (11/04/23 6:00 PM) Pulse Rate [55-90 bpm] 60 bpm (11/04/23 10:15 AM) Body Mass Index [18.5-24.99 kg/m2] 28.4 kg/m2 *H* (11/04/23 10:15 AM) Blood Pressure [90-138/55-84 mm Hg] 167/100mm Hg *H* (11/04/23 6:30 PM) 155/97mm Hg *H* (11/04/23 6:15 PM) 167/98mm Hg *H* (11/04/23 6:00 PM) Respiratory Rate [16-30 br/min] 14 br/min *L* (11/04/23 6:30 PM) 16 br/min (11/04/23 6:15 PM) 16 br/min (11/04/23 6:00 PM) Temperature [96.8-100.4 DegF] 97.2 DegF (11/04/23 10:15 AM) Mode of Delivery (Oxygen) Room air (11/04/23 2:00 PM) Room air (11/04/23 10:15 AM) Blood pressure sites Arm, left (11/04/23 10:15 AM) Temperature Route Temporal (11/04/23 10:15 AM) Weight Obtained Via Standing scale (11/04/23 10:15 AM) Social History Social History Type Response Smoking Status Current some day smo ker; Type: Cigarettes; Other: 3 cigarettes per week; entered on: 04/02/18 Sex Cardiac catheterization study * Event Display: Cardiac Clinical Biochemist Report Authored Date: Cardiac Diagnostic + PCI Report Demographics Patient Name ESTEFANI HERRMANN Gender Male [employer] Room Number [id number] Height 71 inches Date of 1955 Weight 202.83 pounds Age 68 year(s) BSA 2.12 m2 Accession Number [id number] BMI 28.29 kg/m2 Referring Physician Jeffy Ballard MD Date of Study 11/04/2023 Performing Physician Jeffy Ballard MD Fellow Interventional Physician Jeffy Ballard MD Procedure Procedure Type Diagnostic procedure:Coronary Angiography with [facility] PCI procedure:FFR Miscellaneous:ACT [facility] Diagnostic Catheterization Status:Elective [facility] Interventional Catheterization Status:Elective Indications Indications: Dyspnea/SOB and Chest pain. Clinical History Admission Medications + +------+-------+ + + +---------+ !Medication !Dosage!Times !Last !Last !Administered !Comments ! ! ! !Per Day!Delivery !Delivery ! ! ! ! ! ! !Date !Time ! ! ! + +------+-------+ + + +---------+ !Aspirin (any)!81 mg ! !11/04/2023 !07:00 ! ! ! + +------+-------+ + + +---------+ !Apixaban !5 mg ! !10/31/2023 !20:00 ! ! ! + +------+-------+ + + +---------+ !Calcium ! ! ! ! ! ! ! !Channel ! ! ! ! ! ! ! !Bernarda ! ! ! ! ! ! ! + +------+-------+ + + +---------+ !BECCA Inhibitor! ! ! ! ! ! ! !(any) ! ! ! ! ! ! ! + +------+-------+ + + +---------+ !Beta Bernarda ! ! ! ! ! ! ! !(any) ! ! ! ! ! ! ! + +------+-------+ + + +---------+ !Statin (any) ! ! ! ! ! ! ! + +------+-------+ + + +---------+ Clinical Evaluation Leading to Procedure - The patient's CAD presentation was assessed as: Unstable angina. - The patient's anginal syndrome during the past two weeks was assessed as: Class III according to the [place] Cardiovascular Society Classification System (CCS). ACC Risk Factors The patient risk factors include:prior PCI;physical activity, treated and uncontrolled hypercholesterolemia, treated and uncontrolled hypertension, chronic lung disease, last creatinine: 0.7 mg/dl, creatinine clearance: 127.78 ml/min, dyslipidemia and former tobacco use. Additional Clinical History:68-year-old gentleman who has previous angioplasty of LAD as well as PDA/RPL presenting for new onset chest discomfort and shortness of breath over the last few months. Given known history of coronary disease he has been referred to us for diagnostic angiography. Procedure Data Procedure Date Date: 11/04/2023Start: 13:16End: 13:59 The procedure was explained in detail to the patient. Risks, complications and alternative treatments were reviewed. Written consent was obtained. Entry Locations - Retrograde Percutaneous access was performed through the Right Radial artery. A 6 Fr sheath was inserted. Hemostasis was successfully obtained using TR Band. Closure Comments: 14. Procedure Medications - Versed (Midazolam) I.V. 1 mg. - Fentanyl I.V. 50 mcg. - Versed (Midazolam) I.V. 1 mg. - Fentanyl I.V. 50 mcg. - Versed (Midazolam) I.V. 1 mg. - Fentanyl I.V. 50 mcg. - Lidocaine 2% S.C. Right Wrist 2 ml. - Nitroglycerin I.A. 200 mcg. - Heparin I.V. 4000 units. - Nitroglycerin I.A. 200 mcg. - Versed (Midazolam) I.V. 1 mg. - Fentanyl I.V. 50 mcg. - Heparin I.V. 4000 units. - Oxygen NC 2 l/min. Sedation: My intra-service moderate sedation time was: from 1303 to 1356. Refer to procedural log for detailed chronological information. Contrast Material - Omnipaque 65 ml Diagnostic Catheters - ADxTerity 5F 100 cm JR 4.0was used for: Left heart catheterization. - ADxTerity 5F 100 cm JR 4.0was used for: Right coronary angiography. - ADxTerity 5F 100 cm JL 3.5was used for: Left coronary angiography.Unable to cannulate the vessel. - ADxTerity 5F 100 cm JL 4.0was used for: Left coronary angiography. - AVISTA BRITE TIP 6F 100 cm XB 3.5was used for: FFR . Fluoroscopy Time: Diagnostic: 8:50 minutes. PCI: 0:00 minutes. Total: 8:50 minutes. Fluoroscopy Dose: Diagnostic: 311.295 mGy. PCI: 0 mGy. Total: 311.295 mGy. Dose Area Product:Diagnostic: 06807.7 mGy/cm2. PCI: 0 mGy/cm2. Total: 19452.7 mGy/cm2. Angiographic Findings Cardiac Arteries and Lesion Findings LMCA: Normal. LAD: Tortuous vessel with mild to moderate diffuse disease with apical LAD approximately 80% stenosed. LCx: 60% mid circumflex stenosis Lesion in Prox CX: Distal subsection. FFR +----+ +-------+ !FFR !Stage/Medication !Dosage ! +----+ +-------+ !0.98! ! ! +----+ +-------+ RCA: Mild luminal irregularities (<30%).There is a previous stent on R PDA Proximal subsection. There is a previous stent on Dist RCA Distal subsection. Hemodynamics Condition: Rest O2 Consumption: Estimated: 265.00Heart Rate: 60 bpm Pressures (mmHg) +-----+ + !Site !Pressure ! +-----+ + !LV !139/6 ,12 ! +-----+ + !AO !152/85 (111)! +-----+ + !LV !140/7 ,12 ! +-----+ + Valve Gradients and Areas +------+----+----+----+-----+----+------+ !Valve !Peak!Mean!Area!Index!Flow!Source! +------+----+----+----+-----+----+------+ !Aortic!0 !0 ! ! ! ! ! +------+----+----+----+-----+----+------+ !Aortic!0 !0 ! ! ! ! ! +------+----+----+----+-----+----+------+ Shunts Oxygen Values O2 Consumption 265 Interventional Procedure Cardiac lesions LCx: Lesion in Prox CX: Distal subsection. Devices used - OmniWire 185 cm Straight Tip. Number of passes: 1. Conclusions Diagnostic Summary 68-year-old gentleman with known history of coronary artery disease presenting with chest pain which started last 3 weeks. Hemodynamics: Elevated systemic pressures. Normal LVEDP. There is no gradient across aortic valve pullback. Coronary anatomy: Right dominant circulation. Mild disease in artery. Patent stents distally in the PDA and RPL. Moderate diffuse disease in the LAD with apical LAD stenosis. Apical segment is normal in size and it is a very small territory. Circumflex 60% proximal to mid stenosis. Diagnostic Recommendations iFR of left circumflex. Interventional Summary iFR left circumflex was 0.98-which is normal. Interventional Recommendations Aggressive secondary risk factor modification according to ATP III guidelines. Blood pressure control. Referral for cardiac dilatation. He has significant anxiety which probably is playing a role in his chest pains. ACC Diagnostic Recommendations: Medical therapy and/or counseling. Complications:None. Signatures * Event Display: Cardiac Clinical Biochemist Report Authored Date: Note * Event Display: Hemodynamic Procedure Report Authored Date: * Ileana Mak RN: PERFORM Event Display: Discharge/Transfer Note Hospital Authored Date: [id number] Nursing Discharge Note Entered On: 11/04/2023 19:34 EDT Performed On: 11/04/2023 19:34 EDT by Ileana Mak RN Nursing Discharge Note 2 Discharge Time : 11/04/2023 18:55 EDT Discharge Level of Care at Discharge : Home/Halfway/Foster Care Patient Left Unit Via : Wheelchair Patient Accompanied Off Unit with : Responsible adult DC Instructions Provided & Signed by Pt : Yes Patient Understands D/C Instructions : Yes Patient Instructions Discharge Signed : Yes Did Pt have Specialty Bed or Wound Vac : No Ileana Mak RN - 11/04/2023 19:34 EDT * Ileana Mak RN: PERFORM, MODIFY Event Display: Patient Education/Instruction Authored Date: [id number] Inpatient Adult Discharge Instructions. [address] [address] Name: ALIZE ESTEFANI : 1955?? Visit: 11/04/2023 09:51?? Current Date: 11/04/2023 18:52 ?? Account: [id number]?? Inpatient Adult Discharge Instructions We would like to thank you for allowing us to assist you with your healthcare needs. The following includes patient education materials and information regarding your injury/illness. Our entire staffstrives to provide an excellent experience for our patients and their families. PLEASE ENSURE YOU FOLLOW-UP PER THE INSTRUCTIONS BELOW! ?? YOUR OPINION IS IMPORTANT TO US! Please complete the survey you may receive by mail or email. Your feedback will be used to make improvements to the healthcare experiences of our patients and their families. Surveys are administered by [employer] ?? If further treatment with your primary care physician or another doctor is recommended, it is important for you to keep the appointment. Call your primary care physician or return to the Emergency Department immediately if your condition worsens, fails to improve, or new symptoms develop. If you need to find a doctor, you can call [facility] Link for a referral at [phone] or toll free at [phone] ([phone]) or log in to [email or web address].. ?? [facility], in keeping with [facility] guidance, no longer requires face masks for staff, patientsor visitors in most situations. Similiar to time spent indoors at other locations, there is the chance that you were exposed to repiratory viruses during your time with us (such as flu or COVID-19). If you develop symptoms concerning for a viral respiratory infection, please seek testing (and treatment if indicated) from your medical provider or home test kit. ?? You can view and manage your care through the patient portal or by using a health care kateryna of your choosing. [employer] is a website that allows you to securely view your medical information including your hospital discharge summary, office visit summaries, medications and follow-up visits. You can also request appointments, renew medications, and request access to your medical information using a health care kateryna of your choosing, or just ask a question. You can enroll at [email or web address] or register during your next office visit. You have been discharged from [facility], Patient Care Unit: CARE??. If you have any questions regarding these instructions, including results of studies pending, afteryou leave, please call us and we will be happy to assist you 30/12. [facility] Nursing Unit Direct Phone Number, for 30/12 contact and results of studies pending CARE [address] [place] [address] Your Care Team Attending Physician Jeffy Ballard MD?? Consulting Providers Jeffy Ballard MD?? Discharging Providers Jeffy Ballard MD Tests Performed Below is a partial list of the tests performed during your hospitalization. You may have had other tests and procedures not included in this list. Please discuss all test results with your provider. Type and Screen No tests performed during this visit.?? Primary Care Provider Name Memo ARREDONDO? Advance Directive Health Care Proxy on File No Discharge Vitals Temperature: 97.2 DegF Height: 180 cm Pulse Rate: 60 bpm Weight: 92 kg Respiratory Rate: 16 br/min Body Mass Index:??28.4 kg/m2??High Systolic Blood Pressure:??156 mm Hg??High Body surface area: 2.14 Diastolic Blood Pressure:??94 mm Hg??High ?? Oxygen Saturation: 94 % ?? Studies Pending All studies ordered during this hospital stay have been completed unless listed below. Please discuss all pending results with your provider listed above in these instructions. ?? No incomplete studies found?? What to do next Instructions From Your Doctor ?? Orders?? TR removal, ??11/04/23 18:11:00 EDT?? You Need to Schedule the Following Appointments Follow Up with??Andreea Briggs NP When:??Within 3-5 day: call to discuss follow up visit Where: [address] [place] [address] [place] [id number]- Follow Up with??Jeffy Ballard MD When:??Within 3-5 day: call to discuss follow up visit Where: [address] [place] [address] [facility] [place], [place] [id number]- Discharge Medications ALIZE JARA :1955 Visit Date:11/04/2023 Medications: Please continue your medications until treatment is completed or stopped by your provider. Medications not listed below should be discontinued. Discuss any questions related to medications with your provider. What How Much When Instructions Next Dose Unchanged Amlodipine (amlodipine 10 mg oral tablet) 1 tab(s) Oral Daily Duration: 30 Days continue home schedule as prescribed Unchanged apixaban (Eliquis 5 mg oral tablet) 1 tab(s) Oral Twice a day continue home schedule as prescribed Unchanged Aspirin (aspirin 81 mg oral delayed release tablet) 81 Milligram Oral Daily Duration: 30 Days continue home schedule as prescribed Unchanged Divalproex Sodium (divalproex sodium 250 mg oral tablet, extended release) 1 tab(s) Oral Daily continue home schedule as prescribed Unchanged Esomeprazole (Nexium 40 mg oral enteric coated capsule) 1 capsule Oral Daily continue home schedule as prescribed Unchanged Ezetimibe (Zetia 10 mg oral tablet) 1 tab(s) Oral Daily continue home schedule as prescribed Unchanged levETIRAcetam (Spritam 750 mg oral tablet, dispersible) DISSOLVE 1 TABLET BY MOUTH TWICE DAILY ?? continue home schedule as prescribed Unchanged Lisinopril (lisinopril 20 mg oral tablet) 0.5 tab(s) Oral Daily continue home schedule as prescribed Unchanged Metoprolol (Metoprolol Tartrate 50 mg oral tablet) 1 tab(s) Oral Twice a day with meals ?? continue home schedule as prescribed Unchanged Multivitamin Oral Daily continue home schedule as prescribed Unchanged Nitroglycerin (nitroglycerin 0.4 mg sublingual tablet) 1 tab(s) Sublingual Every 5 minutes continue home schedule as prescribed Unchanged Ondansetron (ondansetron 4 mg oral tablet) 1 tab(s) Oral Every 8 hours continue home schedule as prescribed Unchanged Oxycodone (oxyCODONE 5 mg oral tablet) 2 tab(s) Oral Every 6 hours as needed for Pain , Moderate continue home schedule as prescribed Unchanged Pantoprazole (pantoprazole 40 mg oral delayed release tablet) 1 tab(s) Oral Daily continue home schedule as prescribed Unchanged ranolazine (Ranexa 1000 mg oral tablet, extended release) 1 tab(s) Oral Twice a day continue home schedule as prescribed Unchanged Rosuvastatin (rosuvastatin 40 mg oral tablet) 40 Milligram Oral Daily at Bedtime Duration: 30 Days continue home schedule as prescribed Prescription Given During Visit No new medications prescribed at time of discharge.?? Laboratory Results Below is a partial list of the most recent Laboratory test results done prior to this discharge. You may have had other tests and procedures not included in this list. Please discuss all test resultswith your provider. Type and Screen (11/04/2023) ???Blood Type - O Positive???Antibody Screen - Negative Allergies (NKA means No Known Allergies) Bee Stings Ultram??(Shortness of breath) indomethacin??(Shortness of breath) methadone??(Drug-induced psychosis) Problems Active Problems??(15) Androgen deficiency?? Chronic drug abuse?? CK - Creatine kinase level elevated?? DVT - Deep vein thrombosis?? Erectile dysfunction?? Failed back syndrome?? Gastro-esophageal reflux disease?? Gout?? Hypercholesterolemia?? Lumbar radiculopathy?? multiple knee surgeries?? Pain in right leg?? Rotator cuff impingement syndrome right?? sciatic tumor?? [D]Non-cardiac chest pain?? Education Materials Below is the list of Educational Leaflet Providered with your Discharge Instructions. [employer] Patient Education - Surgery Radial Cath Approach Discharge Instructions?? [employer] Patient Education - Recovery After Procedural Sedation (Adult)?? Valuables and Belongings I fully understand and agree that [facility] accepts no responsibility for all my personal property including clothing, toilet articles, radios, jewelry, dentures, hearing aids, rings, money, or any other property that is in my possession or is brought to me after admission. I understand certain valuables may be placed in a hospital safe for a short period of time. I understand that the hospital is not liable for loss or damage due to accident, fire, or other natural occurrence while said property is in the safe. I accept full responsibility for any personal property that I keep with me, and will not hold the hospital responsible in case of loss or disappearance. I acknowledge that i have been encouraged to send valuables and belongings home. ?? Review of Valuable and Belonging List: With patient Date for Pt to Sign Valuables/Belongings: 11/04/23 13:20:00 ?? Other Discharge Information ? Pulmonary Rehab Status?? Pulmonary Rehab Discharge Status?? Respiratory Rate: 16 br/min ? Common Emergency Awareness Tips IS IT A STROKE? Act FAST and Check for these signs: FACE Does the face look uneven? ARM Does one arm drift down? SPEECH Does their speech sound strange? TIME Call at any sign of stroke ?? Heart Attack Signs Chest discomfort: Most heart attacks involve discomfort in the center of the chest and lasts more than a few minutes, or goes away and comes back. It can feel like uncomfortable pressure, squeezing, fullness or pain. Discomfort in upper body: Symptoms can include pain or discomfort in one or both arms, back, neck, jaw or stomach. Shortness of breath: With or without discomfort. Other signs: Breaking out in a cold sweat, nausea, or lightheaded. Remember, MINUTES DO MATTER. If you experience any of these heart attack warning signs, call to get immediate medical attention! ?? Smoking can increase your chances of developing chronic health problems and can cause harmful effects to other family members in your house. If you smoke, you are strongly encouraged to quit. Please call [facility] [employer] Link at [phone] or [phone] ([phone]) or log in to [email or web address] for referrals to smoking cessation programs. ?? 059 Suicide & Crisis Lifeline is available 30/12 if you or someone you know needs to find a reason to keep living. By calling 080 you'll be connected to a skilled, trained counselor at a crisis center in your area. INPATIENT DISCHARGE INSTRUCTIONS SIGNATURE PAGE ALIZE JARA Location:[facility] Registration Date and Time:11/04/2023 09:51 EDT Primary Care Physician: Memo Alex MD, Attending Physician: Elio ARREDONDO, Jeffy, I ALIZE JARA, have received the above patient education materials/instructions and have verbalized understanding. If ambulance or transport services are being used I further acknowledge being given a choice of service. ?? If you need to contact me, please call me at this number: . Patient/Strip Polisher Name: Patient/Strip Polisher Signature: Relationship to Patient: Witness Name/Signature: Date: * Ileana Mak RN: PERFORM, MODIFY Event Display: Patient Education/Instruction Authored Date: [id number] Inpatient Adult Discharge Instructions. [address] [address] Name: ALIZE JARA : 1955?? Visit: 11/04/2023 09:51?? Current Date: 11/04/2023 18:49 ?? Account: [id number]?? Inpatient Adult Discharge Instructions We would like to thank you for allowing us to assist you with your healthcare needs. The following includes patient education materials and information regarding your injury/illness. Our entire staffstrives to provide an excellent experience for our patients and their families. PLEASE ENSURE YOU FOLLOW-UP PER THE INSTRUCTIONS BELOW! ?? YOUR OPINION IS IMPORTANT TO US! Please complete the survey you may receive by mail or email. Your feedback will be used to make improvements to the healthcare experiences of our patients and their families. Surveys are administered by [employer] ?? If further treatment with your primary care physician or another doctor is recommended, it is important for you to keep the appointment. Call your primary care physician or return to the Emergency Department immediately if your condition worsens, fails to improve, or new symptoms develop. If you need to find a doctor, you can call [facility] [employer] for a referral at [phone] or toll free at [phone] ([phone]) or log in to [email or web address].. ?? [facility], in keeping with [facility] guidance, no longer requires face masks for staff, patientsor visitors in most situations. Similiar to time spent indoors at other locations, there is the chance that you were exposed to repiratory viruses during your time with us (such as flu or COVID-19). If you develop symptoms concerning for a viral respiratory infection, please seek testing (and treatment if indicated) from your medical provider or home test kit. ?? You can view and manage your care through the patient portal or by using a health care kateryna of your choosing. [employer] is a website that allows you to securely view your medical information including your hospital discharge summary, office visit summaries, medications and follow-up visits. You can also request appointments, renew medications, and request access to your medical information using a health care kateryna of your choosing, or just ask a question. You can enroll at [email or web address] or register during your next office visit. You have been discharged from [facility], Patient Care Unit: CARE??. If you have any questions regarding these instructions, including results of studies pending, afteryou leave, please call us and we will be happy to assist you 30/12. [facility] Nursing Unit Direct Phone Number, for 30/12 contact and results of studies pending CARE [address] [place] [address] Your Care Team Attending Physician Jeffy Ballard MD?? Consulting Providers Jeffy Ballard MD?? Discharging Providers Jeffy Ballard MD Tests Performed Below is a partial list of the tests performed during your hospitalization. You may have had other tests and procedures not included in this list. Please discuss all test results with your provider. Type and Screen No tests performed during this visit.?? Primary Care Provider Name Memo ARREDONDO? Advance Directive Health Care Proxy on File No Discharge Vitals Temperature: 97.2 DegF Height: 180 cm Pulse Rate: 60 bpm Weight: 92 kg Respiratory Rate: 16 br/min Body Mass Index:??28.4 kg/m2??High Systolic Blood Pressure:??156 mm Hg??High Body surface area: 2.14 Diastolic Blood Pressure:??94 mm Hg??High ?? Oxygen Saturation: 94 % ?? Studies Pending All studies ordered during this hospital stay have been completed unless listed below. Please discuss all pending results with your provider listed above in these instructions. ?? No incomplete studies found?? What to do next Instructions From Your Doctor ?? Orders?? TR removal, ??11/04/23 18:11:00 EDT?? You Need to Schedule the Following Appointments Follow Up with??Andreea Briggs NP When:??Within 3-5 day: call to discuss follow up visit Where: [address] [place] [address] SHIELA Fernandez [address]- Follow Up with??Jeffy Ballard MD When:??Within 3-5 day: call to discuss follow up visit Where: [address] [place] [address] [facility] [place] Fernandez [address]- Discharge Medications ALIZE JARA :1955 Visit Date:11/04/2023 Medications: Please continue your medications until treatment is completed or stopped by your provider. Medications not listed below should be discontinued. Discuss any questions related to medications with your provider. What How Much When Instructions Next Dose Unchanged Amlodipine (amlodipine 10 mg oral tablet) 1 tab(s) Oral Daily Duration: 30 Days continue home schedule as prescribed ?? Unchanged apixaban (Eliquis 5 mg oral tablet) 1 tab(s) Oral Twice a day continue home schedule as prescribed Unchanged Aspirin (aspirin 81 mg oral delayed release tablet) 81 Milligram Oral Daily Duration: 30 Days continue home schedule as prescribed Unchanged Divalproex Sodium (divalproex sodium 250 mg oral tablet, extended release) 1 tab(s) Oral Daily continue home schedule as prescribed Unchanged Esomeprazole (Nexium 40 mg oral enteric coated capsule) 1 capsule Oral Daily continue home schedule as prescribed Unchanged Ezetimibe (Zetia 10 mg oral tablet) 1 tab(s) Oral Daily continue home schedule as prescribed Unchanged levETIRAcetam (Spritam 750 mg oral tablet, dispersible) DISSOLVE 1 TABLET BY MOUTH TWICE DAILY ?? continue home schedule as prescribed Unchanged Lisinopril (lisinopril 20 mg oral tablet) 0.5 tab(s) Oral Daily continue home schedule as prescribed Unchanged Metoprolol (Metoprolol Tartrate 50 mg oral tablet) 1 tab(s) Oral Twice a day with meals ?? continue home schedule as prescribed Unchanged Multivitamin Oral Daily continue home schedule as prescribed Unchanged Nitroglycerin (nitroglycerin 0.4 mg sublingual tablet) 1 tab(s) Sublingual Every 5 minutes continue home schedule as prescribed Unchanged Ondansetron (ondansetron 4 mg oral tablet) 1 tab(s) Oral Every 8 hours continue home schedule as prescribed Unchanged Oxycodone (oxyCODONE 5 mg oral tablet) 2 tab(s) Oral Every 6 hours as needed for Pain , Moderate continue home schedule as prescribed Unchanged Pantoprazole (pantoprazole 40 mg oral delayed release tablet) 1 tab(s) Oral Daily continue home schedule as prescribed continue home schedule as prescribed Unchanged ranolazine (Ranexa 1000 mg oral tablet, extended release) 1 tab(s) Oral Twice a day continue home schedule as prescribed Unchanged Rosuvastatin (rosuvastatin 40 mg oral tablet) 40 Milligram Oral Daily at Bedtime Duration: 30 Days continue home schedule as prescribed Prescription Given During Visit No new medications prescribed at time of discharge.?? Laboratory Results Below is a partial list of the most recent Laboratory test results done prior to this discharge. You may have had other tests and procedures not included in this list. Please discuss all test resultswith your provider. Type and Screen (11/04/2023) ???Blood Type - O Positive???Antibody Screen - Negative Allergies (NKA means No Known Allergies) Bee Stings Ultram??(Shortness of breath) indomethacin??(Shortness of breath) methadone??(Drug-induced psychosis) Problems Active Problems??(15) Androgen deficiency?? Chronic drug abuse?? CK - Creatine kinase level elevated?? DVT - Deep vein thrombosis?? Erectile dysfunction?? Failed back syndrome?? Gastro-esophageal reflux disease?? Gout?? Hypercholesterolemia?? Lumbar radiculopathy?? multiple knee surgeries?? Pain in right leg?? Rotator cuff impingement syndrome right?? sciatic tumor?? [D]Non-cardiac chest pain?? Education Materials Below is the list of Educational Leaflet Providered with your Discharge Instructions. Valuables and Belongings I fully understand and agree that [facility] accepts no responsibility for all my personal property including clothing, toilet articles, radios, jewelry, dentures, hearing aids, rings, money, or any other property that is in my possession or is brought to me after admission. I understand certain valuables may be placed in a hospital safe for a short period of time. I understand that the hospital is not liable for loss or damage due to accident, fire, or other natural occurrence while said property is in the safe. I accept full responsibility for any personal property that I keep with me, and will not hold the hospital responsible in case of loss or disappearance. I acknowledge that i have been encouraged to send valuables and belongings home. ?? Review of Valuable and Belonging List: With patient Date for Pt to Sign Valuables/Belongings: 11/04/23 13:20:00 ?? Other Discharge Information ? Pulmonary Rehab Status?? Pulmonary Rehab Discharge Status?? Respiratory Rate: 16 br/min ? Common Emergency Awareness Tips IS IT A STROKE? Act FAST and Check for these signs: FACE Does the face look uneven? ARM Does one arm drift down? SPEECH Does their speech sound strange? TIME Call at any sign of stroke ?? Heart Attack Signs Chest discomfort: Most heart attacks involve discomfort in the center of the chest and lasts more than a few minutes, or goes away and comes back. It can feel like uncomfortable pressure, squeezing, fullness or pain. Discomfort in upper body: Symptoms can include pain or discomfort in one or both arms, back, neck, jaw or stomach. Shortness of breath: With or without discomfort. Other signs: Breaking out in a cold sweat, nausea, or lightheaded. Remember, MINUTES DO MATTER. If you experience any of these heart attack warning signs, call to get immediate medical attention! ?? Smoking can increase your chances of developing chronic health problems and can cause harmful effects to other family members in your house. If you smoke, you are strongly encouraged to quit. Please call [facility] [employer] [facility] at [phone] or [phone] ([phone]) or log in to [email or web address] for referrals to smoking cessation programs. ?? 487 Suicide & Crisis Lifeline is available 30/12 if you or someone you know needs to find a reason to keep living. By calling 453 you'll be connected to a skilled, trained counselor at a crisis center in your area. INPATIENT DISCHARGE INSTRUCTIONS SIGNATURE PAGE ALIZE JARA Location:[facility] Registration Date and Time:11/04/2023 09:51 EDT Primary Care Physician: Name Memo ARREDONDO, Attending Physician: Jeffy Ballard MD, I ALIZE JARA, have received the above patient education materials/instructions and have verbalized understanding. If ambulance or transport services are being used I further acknowledge being given a choice of service. ?? If you need to contact me, please call me at this number: . Patient/Strip Polisher Name: Patient/Strip Polisher Signature: Relationship to Patient: Witness Name/Signature: Date: * Ileana Mak RN: PERFORM Event Display: Patient Education Leaflets Authored Date: [id number] Surgery Radial Cath Approach Discharge Instructions ?? 278 Radial Cath Approach Discharge Instructions ?? Activity Take it easy the rest of the day. Limit your activity on the affected side.?? Act as if your arm is broken for 24 hours. No lifting with affected arm for 24 hours. No pushing or pulling with the affected arm. Do not reach or lift with the affected arm. Do not place excessive pressure on the wrist. ?? Precautions Due to intravenous sedation: It is recommended that someone stay with you for the first night after your procedure. Do not drive or operate hazardous machinery for 24 hours. Do not make legal decisions for 24 hours. Avoid alcohol for 24 hours. Unless directed otherwise, keep yourself hydrated. ?? Dressing/Incision Care You may remove the dressing 24 hours after your procedure. Replace with band aid for an additional 24 hours. You may shower and cleanse the site with soap & water then pat dry. Avoid submersion of site in water x 5 days. Cover the with a clean band aid daily until site is healed. If the band aid becomes soiled, replacewith a clean new one. Do not apply any ointments, lotions, gels or powders to the puncture site. ?? When to contact your doctor If any of the following signs of infection occur: Fever greater than 100 degrees F Increased pain Drainage, redness or warmth at puncture site Tingling of the fingers and hand that last longer than 3 days Slight bubble of blood or bleeding from site: apply manual pressure and notify your doctor ?? Emergency situations: Bleeding from the site that will not stop: apply manual pressure and notify your doctor Profuse bleeding streaming from the puncture site: Apply manual pressure and notify your doctor immediately If your hand becomes bluish, cold to the touch, or painful, notify your doctor immediately or go toEmergency Department. For these emergent situations: If unable to contact your physician, call 911. ?? * Ileana Mak RN: PERFORM Event Display: Patient Education Leaflets Authored Date: Recovery After Procedural Sedation (Adult) ?? [id number] Recovery After Procedural Sedation (Adult) You have been given medicine by vein to make you sleep during your procedure. This may have included both a pain medicine and sleeping medicine. You may have side effects, such as nausea, fatigue, orunsteadiness for up to 24 hours. You may also feel lightheaded. Home care Follow these guidelines when you get home: ??? For the next 8 or more hours, ask a trusted adult to watch over you. This person should make sure your condition is not getting worse, watch for problems, and keep you safe. ??? Don't drink any alcohol??for the next 24 hours. ??? Don't drive, operate dangerous machinery, or make important business or personal decisions??during the next 24 hours. ??? Take extra care when walking and moving, You may be at a higher risk of falling. ??? Follow any instructions you were given for eating and drinking. ??? Be sure to follow all after-care directions. Note: Your healthcare provider may tell you not to take any medicine by mouth for pain or sleep in the next 4 hours. These medicines may react with the medicines you were given in the hospital. This could cause a much stronger response than usual. ?? Follow-up care Follow up with your healthcare provider as advised. ?? When to seek medical advice Have someone call your healthcare provider or seek medical care right away if any of these occur: ??? Drowsiness gets worse ??? Weakness or dizziness gets worse ??? Repeated vomiting ??? Your speech is slurred, and others cannot understand you. ??? Severe or ongoing pain from the procedure that's not eased by the pain medicine (if prescribed) ??? Fever ??? New rash ?? Call 911 Have someone call 911 if you develop any of these symptoms: ??? Trouble breathing ??? Trouble swallowing ??? Chest pain ??? Loss of consciousness or you can't be awakened ?? Last Reviewed Date: 2023 ?? [id number] [employer]. All rights reserved. This information is not intended as a substitute for professional medical care. Always follow your healthcare professional's instructions. ?? History and physical note * Event Display: History and Physical Hospital Authored Date: EKG study * Event Display: ECG 12-Lead Authored Date: Please click on pdf link to open report * Event Display: ECG 12-Lead Authored Date: Ventricular Rate: 60 BPM Atrial Rate: 60 BPM P-R Interval: 190 ms QRS Duration: 98 ms Q-T Interval: 464 ms QTC Calculation(Bazett): 464 ms P [place]: 90 degrees R [place]: -1 degrees T [place]: 39 degrees Sinus rhythm Cannot rule out Inferior infarct , age undetermined Abnormal ECG When compared with ECG of 04-NOV-2023 14:11, No significant change Confirmed by Goldsweig, Spencer ([id number]) on 11/04/2023 3:21:24 PM [place]: Spencer Garcia * Event Display: ECG 12-Lead Authored Date: [id number] Please click on pdf link to open report * Event Display: ECG 12-Lead Authored Date: [id number] Ventricular Rate: 60 BPM Atrial Rate: 60 BPM P-R Interval: 198 ms QRS Duration: 110 ms Q-T Interval: 464 ms QTC Calculation(Bazett): 464 ms P [place]: 85 degrees R [place]: -7 degrees T [place]: 33 degrees Sinus rhythm Cannot rule out Inferior infarct (cited on or before 03-FEB-2020) Abnormal ECG When compared with ECG of 04-NOV-2023 10:03, No significant change Confirmed by Spencer Garcia ([id number]) on 11/04/2023 3:21:10 PM [place]: Spencer Garcia * Event Display: ECG 12-Lead Authored Date: [id number] Please click on pdf link to open report * Event Display: ECG 12-Lead Authored Date: [id number] Ventricular Rate: 60 BPM Atrial Rate: 60 BPM P-R Interval: 208 ms QRS Duration: 104 ms Q-T Interval: 450 ms QTC Calculation(Bazett): 450 ms P [place]: -22 degrees R [place]: -11 degrees T [place]: 30 degrees Sinus rhythm Cannot rule out Inferior infarct (cited on or before 03-FEB-2020) Abnormal ECG When compared with ECG of 10-JUL-2021 10:20, No significant change Confirmed by Spencer Garcia ([id number]) on 11/04/2023 10:11:34 AM [place]: Spencer Garcia Patient Care team information Care Team Personnel Name: Nia Ramirez RN Position: [facility] RN Member Role: Primary Care Nurse Name: Memo Alex MD Position: [facility] Outreach Member Role: PCP Address: Address: [address] [place] [id number] Name: Veronique Reese RN Position: [facility] RN Member Role: Primary Care Nurse Name: Chitra Mcdonald RN Position: [facility] Nurse Member Role: Primary Care Nurse Name: Fern Cerrato RN Position: [facility] RN Member Role: Primary Care Nurse Care Team Related Persons Name: GE BRASWELL Address: home [address] [place] [id number] Name: PATRICIA OLIVAREZ Address: home [address] [place] [address] Name: IVAN GILLIS
--- OUTSIDE RECORDS SUMMARY | 2023-12-04 07:13 | XMS_ITS | Patient Health Record ---
[facility] Organization [facility] Address [address] [facility], [place] [address] Care Team Providers Care Supervisor [employer] Name Role Phone Name Memo ARREDONDO Primary Care Provider Rolly Manzanares Unavailable [phone] ALLERGIES Allergen (clinical drug ingredient) Drug/Non Drug Allergy documented on EMR Reaction Allergy Type Onset Date Status indomethacin Indocin Unknown Drug Allergy Acti ve enoxaparin Lovenox Unknown Drug Allergy Active tramadol Ultram Unknown Drug Allergy Active Bee Sting Unknown Allergy Active REASON FOR REFERRAL No Information MEDICATIONS Medication SIG (Take, Route, Frequency, Duration) Notes Start Date End Date Status oxyCODONE HCl 10 MG 1 tablet as needed Orally every 6 hrs Active Aspirin 81 MG 1 tablet Orally Once a day for 30 day(s) Active Ranolazine ER 1000 MG 1 tablet Orally Tw ice a day for 30 day(s) Active Pantoprazole Sodium 40 MG 1 tablet Orall y Once a day for 30 day(s) Active Divalproex Sodium 250 MG 1 tablet Orally Once a day for 30 day(s) Active Antibiotic Not-Takin g amLODIPine Besylate 10 MG 1 tablet Orall y Once a day for 30 day(s) Active Rosuvastatin Calcium 40 MG 1 tablet Oral ly Once a day for 30 day(s) Active Ezetimibe 10 MG 1 tablet Orally Once a day for 30 day(s) Active eliquis 5 mg Active Metoprolol Tartrate 50 MG 1 tablet with food Orally Twice a day for 30 day(s) Active Lisinopril 10 MG 1 tablet Orally Once a day for 30 day(s) Active Nitroglycerin 0.4 MG Sublingual for 30 Active Multivitamin - 1 tablet Orally Once [...] Risk SNOMED Code Notes Problem Atherosclerosis of [place] artery of both lower extremities, with unspecified presence of clinical manifestation (I70.203) Active confirmed Atherosclerosis of [place] arteries of the extremities ([id number]) VITAL SIGNS Blood pressure diastolic 80 mm Hg 07/22/2023 Height 5 ft 11 in in 07/22/2023 Blood pressure systolic 120 mm Hg 07/22/2023 Weight 210 lbs 07/22/2023 BMI 29.29 kg/m2 07/22/2023 PROCEDURES Procedure Date Ordered Date Performed Result Body Sit e 17170-UKIDIRQ NAIL, 6 OR MORE 02/25/2023 N/A 93247-HUFH SKIN LESIONS, 2 TO 4 02/25/2023 N/A 29463-YZISXMH NAIL, 6 OR MORE 07/22/2023 N/A 39971-AYWC SKIN LESIONS, 2 TO 4 07/22/2023 N/A Encounters Encounter Location Date Provider Diagnosis [facility] [place] [address] [address] [facility] [address] [place] [address] [facility] [address] [place] [address] 02/25/2023 Rolly Herman Atherosclerosis of [place] artery of both lower extremities, with unspecified presence of clinical manifestation I70.203 ; Onychomycosis B35.1 ; Pain of toe of right foot M79.674 and Pain of toe of left foot M79.[address] [address] 05/13/2023 Rolly Herman [address] [address] 05/13/2023 Rolly Herman [address] [address] 07/22/2023 Rolly Herman Atherosclerosis of [place] artery of both lower extremities, with unspecified presence of clinical manifestation I70.203 ; Onychomycosis B35.1 ; Pain of toe of right foot M79.674 and Pain of toe of left foot M79.[address] [address] 09/30/2023 Rolly Herman [address] [address] 09/30/2023 Rolly Herman ASSESSMENTS Encounter Date Diagnosis Assessment Notes Treatment Notes Treatment Clinical Notes 02/25/2023 Onychomycosis (ICD-1 0 - B35.1) 02/25/2023 Atherosclerosis of [place] artery of both lower extremities, with unspecified presence of clinical manifestation (ICD-10 - I70.203) 07/22/2023 Onychomycosis (ICD-1 0 - B35.1) 07/22/2023 Atherosclerosis of [place] artery of both lower extremities, with unspecified presence of clinical manifestation (ICD-10 - I70.203) 02/25/2023 Pain of toe of right foot (ICD-10 - M79.674) 07/22/2023 Pain of toe of right foot (ICD-10 - M79.674) 02/25/2023 Pain of toe of left foot (ICD-10 - M79.675) 07/22/2023 Pain of toe of left foot (ICD-10 - M79.675) PLAN OF TREATMENT Pending Test Test Name Order Date X ray : Foot, left 3V 01/23/2022 X ray : Foot, left 3V 11/29/2022 47858-BUZDKWB NAIL, 6 OR MORE 02/25/2023 99039-DOUFPTI NAIL, 6 OR MORE 07/22/2023 83932-WWQGNJO NAIL, 6 OR MORE 03/05/2022 74321-FVFKCLM NAIL, 6 OR MORE 05/28/2022 52786-PQBVUSD NAIL, 6 OR MORE 08/27/2022 72476-BAETFWK NAIL, 6 OR MORE 11/29/2022 45967-Ovplriqa Plate 05/28/2022 52532- Debride <25 sq cm 01/23/2022 37871 I&D ABSCESS- SIMPLE,SINGLE 022 14616-OSNV SKIN LESIONS, 2 TO 4 07/22/19 24 56972-HYXK SKIN LESIONS, 2 TO 4 02/26/20 23 49107-YLAU SKIN LESIONS, 2 TO 4 05/28/20 00121-EDLM SKIN LESIONS, 2 TO 4 11/30/19 54862-YALB SKIN LESIONS, 2 TO 4 08/28/19 23 Insurance Providers Payer Name Payer Address Payer Phone Subscriber Number Group Number Insured Name Patient Relationship to Insured Coverage Start Date Coverage End Date Medicare [employer] [address] [place] [address] [id number] Myles Tipton Self - patient is the [...] spine surgery 09/04/2015 Hospitalization History Reason Date(Month/Year) [facility] [place] - AFib and choke at sametime- coded 2x CPR done 2 days 06/13/2022 [facility] left knee 3 x between 5 weeks 2021 [facility] [place] -Ugent Care painful L migel Ingrown? g iven antiboitics 01/08/22 Cardiac Cath and Stent Coronary artery disease invo lving [place] coronary artery of [place] heart with unstable angina pectoris
== END 2023-11-29 21:03 | disposition home or self-care (01) ==
PROVIDERS: Emergency Provider Student in an Organized Health Care Education/Training Program
DX: I48.20 Chronic atrial fibrillation, unspecified (principal); R00.2 Palpitations; I10 Essential (primary) hypertension; E78.5 Hyperlipidemia, unspecified; I48.0 Paroxysmal atrial fibrillation; K21.9 Gastro-esophageal reflux disease without esophagitis; I20.89 Other forms of angina pectoris; I25.2 Old myocardial infarction; Z95.0 Presence of cardiac pacemaker; Z86.718 Personal history of other venous thrombosis and embolism; Z87.891 Personal history of nicotine dependence; Z79.01 Long term (current) use of anticoagulants; Z79.82 Long term (current) use of aspirin; Z79.02 Long term (current) use of antithrombotics/antiplatelets; Z79.899 Other long term (current) drug therapy
CPT/HCPCS: 36415; 80053; 84484; 85025; 93005; 99283; 99285

== ENCOUNTER → 2023-11-29 19:00 | Outpatient (BNV) | payer MEDICARE, MEDICAID, SELFPAY | PROVIDERS: Emergency Provider Student in an Organized Health Care Education/Training Program; Visit Provider Internal Medicine Cardiovascular Disease | DX: R94.31 Abnormal electrocardiogram [ECG] [EKG] (principal) | CPT/HCPCS: 93010 ==

== ENCOUNTER → 2023-12-15 23:59 | Outpatient (BNV) | payer MEDICARE, MEDICAID, SELFPAY ==
--- NOTE | 2023-12-25 14:03 | MHC.OFFVIS ---
Intake Visit Reasons: Remote Device Check- [facility] Allergies bee pollen [BEE STINGS] Allergy (Severe, Verified 11/29/23 19:23) ANAPHYLAXIS indomethacin [Indocin] Allergy (Severe, Verified 11/29/23 19:23) anaphylaxis tramadol [Ultram] Allergy (Severe, Verified 11/29/23 19:23) anaphylaxis fentanyl Adverse Reaction (Verified 11/29/23 19:23) Anxiety [facility] Medical History Elevated cholesterol History of chemotherapy Obstructive sleep apnea (~2018) On anticoagulant therapy Personal history of nicotine dependence DVT (deep venous thrombosis) Essential hypertension Tubular adenoma of colon COVID-19 vaccine administered Seizures (~04/2020) GERD (gastroesophageal reflux disease) Esophagitis Atherosclerotic cardiovascular disease Brain lesion Psychotic disorder Syncope Headache Myocardial infarction Pacemaker (~05/2013) Tremor Brain bleed CAD (coronary artery disease) Surgical History Hx of shoulder surgery History of total left knee replacement History of ERCP History of spinal surgery History of colonoscopy (~09/2020) History of right knee surgery (~12/2013) History of total right hip replacement (~06/2012) History of cholecystectomy History of cardiac catheterization History of permanent cardiac pacemaker placement (~05/2013) History of esophagogastroduodenoscopy (EGD) (~09/2020) History of appendectomy Stented coronary artery Family History Father Heavy cigarette smoker Throat cancer Mother Heart disease Social History Household Members: None Household Members Other:: shares house with a friend Housing: House Are you a primary day care director to a significant other at home: No Do you presently have visiting nurse or other home services: No Alcohol intake: never Comment: resting eyes closed Patient Tobacco Use Status: Former Tobacco user Tobacco use type: Cigarette Years Smoked: 8 +/- e-Cigarette/Vaping Use: Never Used Second Hand Smoke Exposure: No Advance Directives Date on File: 12/16/20 service: No Current occupational status: employed and retired Office Procedures Cardiac Device Check Cardiac Device Check Details: Date of service- 12/15/2023 ; Battery life <3 months; AP 50%; [employer] <1%; ventricular noise reversion noted. Overall normal device function. [id number] Cardiac Device Interrogation, pacemaker Procedure code (CPT) selection complete Assessment & Plan Assessment & Plan (1) PAF (paroxysmal atrial fibrillation): Code(s): I48.0 - Paroxysmal atrial fibrillation Category: Medical Plan x Coding Level of Care Code Procedure Only Diagnoses PAF (paroxysmal atrial fibrillation) I48.0 CPT Codes Cardiac Device Check - Cardiac Device 12: [id number] Cardiac Device Interrogation, pacemaker ([id number])
== END ==
PROVIDERS: Visit Provider Internal Medicine
DX: I48.0 Paroxysmal atrial fibrillation (principal); Z95.0 Presence of cardiac pacemaker
CPT/HCPCS: 93294

== ENCOUNTER 2024-01-01 09:05 | Outpatient (AMB) | payer MEDICARE, MEDICAID, SELFPAY ==
[2024-01-01 09:29] VITALS: BP 114/72; PULSE 73; BMI 28.0
--- NOTE | 2024-01-01 09:29 | MHC.OFFVIS ---
Vital Signs 01/01/24 09:29 Height 5 ft 11 in Weight 201 lb 0.985 oz BMI 28.0 BP 114/72 Blood Pressure Location Lt brachial Position Sitting Pulse 73 Pulse Source Pulse Oximeter Intake Visit Reasons: [facility] [place] Ed F/u Photo Journalist Required: No Allergies bee pollen [BEE STINGS] Allergy (Severe, Verified 01/01/24 09:31) ANAPHYLAXIS indomethacin [Indocin] Allergy (Severe, Verified 01/01/24 09:31) anaphylaxis tramadol [Ultram] Allergy (Severe, Verified 01/01/24 09:31) anaphylaxis fentanyl Adverse Reaction (Verified 01/01/24 09:31) Anxiety Medication List - Last Reconciled 01/01/24 by JANETH Art acetaminophen (Tylenol Extra Strength) 500 mg PO Q6H PRN amlodipine 10 mg PO DAILY apixaban (Eliquis) 5 mg PO BID aspirin (Adult Low Dose Aspirin) 81 mg PO DAILY divalproex ER (Depakote ER) 250 mg PO BEDTIME esomeprazole magnesium 40 mg PO QAM ezetimibe (Zetia) 10 mg PO DAILY hyoscyamine sulfate 0.125 mg PO BID-QID PRN isosorbide mononitrate ER 60 mg PO DAILY lidocaine 5% 1 patch topical DAILY PRN lidocaine 5% (Lidoderm) 1 patch topical DAILY PRN MDD remove after 12 hours lisinopril 5 mg PO DAILY mesalamine ER (Apriso) 1.5 grams (4 x 0.375 gram) PO QAM metoprolol tartrate 100 mg PO BID 90 days metronidazole 500 mg PO BID 7 days multivitamin (Daily Vitamin Formula tablet) 1 tab PO DAILY nitroglycerin (Nitrostat) 0.4 mg sublingual Q5M PRN ondansetron 4 mg PO Q8H PRN oxycodone 10 mg PO Q5H PRN pantoprazole 40 mg PO primidone 250 mg PO BID ranolazine ER 1,000 mg PO BID rosuvastatin (Crestor) 40 mg PO BEDTIME sodium,potassium,mag sulfates 17.5-3.13-1.6 gram (Suprep Bowel Prep Kit) DILUTE; drink 1/2 at 6-8 pm and half at 11 PM- 1AM HPI HPI [facility] [place] Ed F/u: Details: Myles is a 68-year-old male with past medical history of hypertension, hyperlipidemia, sick sinus syndrome, pacemaker in place, CAD, multiple cardiac catheterizations with PCI, stents, last 07/10/2021, PAF, DVT and on Eliquis who presents for follow-up. Today he reports that recently he has noticed shortness of breath in a laying down position. Is needing to prop himself up in order to breathe comfortably. He has no shortness of breath in the daytime, no coughing, fevers or any signs of illness. He does admit that he went back to smoking and feels this may be contributing to this symptom. He is now back on a nicotine patch in hopes to stay away from smoking. No weight gain or edema noted. No chest discomfort at rest or with activity. No heart palpitations since his ER visit in November with paroxysmal AFib. No bleeding issues reported. Taking all meds as directed. 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 [facility] Medical History Elevated cholesterol History of chemotherapy Obstructive sleep apnea (~2018) On anticoagulant therapy Personal history of nicotine dependence DVT (deep venous thrombosis) Essential hypertension Tubular adenoma of colon COVID-19 vaccine administered Seizures (~04/2020) GERD (gastroesophageal reflux disease) Esophagitis Atherosclerotic cardiovascular disease Brain lesion Psychotic disorder Syncope Headache Myocardial infarction Pacemaker (~05/2013) Tremor Brain bleed CAD (coronary artery disease) Surgical History Hx of shoulder surgery History of total left knee replacement History of ERCP History of spinal surgery History of colonoscopy (~09/2020) History of right knee surgery (~12/2013) History of total right hip replacement (~06/2012) History of cholecystectomy History of cardiac catheterization History of permanent cardiac pacemaker placement (~05/2013) History of esophagogastroduodenoscopy (EGD) (~09/2020) History of appendectomy Stented coronary artery Family History Father Heavy cigarette smoker Throat cancer Mother Heart disease Social History Household Members: None Household Members Other:: shares house with a friend Housing: House Are you a primary after school caregiver to a significant other at home: No Do you presently have visiting nurse or other home services: No Alcohol intake: never Comment: resting eyes closed Patient Tobacco Use Status: Former Tobacco user Tobacco use type: Cigarette Years Smoked: 8 +/- e-Cigarette/Vaping Use: Never Used Second Hand Smoke Exposure: No Advance Directives Date on File: 12/16/20 service: No Current occupational status: employed and retired Review of Systems Const All systems reviewed & are unremarkable except as noted in HPI and below ENT Denies dizziness Card Denies chest pain, Denies chest pain at rest, Denies chest pain with activity, Denies rapid heart rate, Denies pedal edema, Denies edema, Denies leg edema, Denies lightheadedness, Denies palpitations, Denies dyspnea on exertion and Reports orthopnea Resp Denies cough and Denies dyspnea on exertion GI Denies hematochezia and Denies change in stool character Musc Denies abnormal gait, Denies limited range of motion, Denies muscle cramps, Denies muscle weakness, Denies numbness, Denies radiating pain into limb, Denies stiffness and Denies tingling Neuro Denies abnormal gait, Denies dizziness, Denies numbness and Denies tingling Endo Denies palpitations Physical Exam Vital Signs: Last Vital Signs Pulse 73 01/01/24 09:29 BP 114/72 01/01/24 09:29 BMI result Body Mass Index 28.0 Const General: cooperative, healthy appearing, comfortable and no acute distress Orientation/consciousness: patient oriented x3 Neck Neck: Yes normal visual inspection and Yes no JVD Resp Effort & Inspection: normal respiratory effort Auscultation: clear to auscultation bilaterally, no crackles, no rales, no rhonchi and no wheezes Cardio Jugular venous distension: no JVD Rate: regular rate Rhythm: regular rhythm Heart sounds: S1 normal heart sound present, S2 normal heart sound present, no murmurs and no rubs Neuro General: patient oriented x3 Extrem General: Yes normal to inspection, No no pedal edema and No calf tenderness Psych Appearance: grossly normal Mental Status: mental status grossly normal Speech and movement: Normal speech and movement present Assessment & Plan Assessment & Plan (1) Orthopnea: Code(s): R06.01 - Orthopnea Category: Medical Plan: Report of difficulty breathing and laying down position. This is a recent change for him. No coughing, weight gain, edema. No shortness of breath in the daytime. Last echocardiogram done 07/25/2022 showing EF 65-70%, moderate asymmetrical septal hypertrophy, possible early mild . History of PAF. Pulse is regular on exam today. He does not appear to have signs of fluid overload on examination. Will check labs today including BMP and BNP. (2) CAD (coronary artery disease): Comment: (NSTEMI 2012, STEMI 2016, Stents to LAD, rPDA, RPL, cath 01/2020), catheterization 07/10/2021, no change to anatomy, patent stents Code(s): I25.10 - Atherosclerotic heart disease of [place] coronary artery without angina pectoris Category: Medical Plan: History of CAD with multiple cardiac catheterizations and PCI in the past. He has known stent to the proximal RPL, distal RCA. He had angioplasty to the distal LAD in 2015. His cardiac catheterization was 07/10/2021 showing patent distal RCA stent, 60% PLV superior branch small size vessel, distal LAD stenosis unchanged, small territory and small-vessel, 40-50% mid LAD stenosis. On recent visit he described getting mid chest pressure, shortness of breath, diaphoresis, left arm discomfort with exertional physical activity such as climbing stairs and walking distances. He underwent a repeat cardiac catheterization which was done on 11/04/2023 showing no significant change in anatomy, right PDA and RCA stents patent. Will continue current management for stable CAD including isosorbide, amlodipine and metoprolol for triple antianginal therapy. He can Continue p.r.n. use of nitroglycerin for chest discomfort. Continue aspirin, high-dose rosuvastatin and Zetia. Emergency care if needed for symptoms. Cardiology follow-up 3 months, sooner if needed. (3) Sick sinus syndrome: Code(s): I49.5 - Sick sinus syndrome Category: Medical Plan: Pacemaker in place (4) Pacemaker: Onset Date: ~05/2013 Comment: ([facility] DCPP, placed 2012 - device interrogation 08/30/20) Code(s): Z95.0 - Presence of cardiac pacemaker Category: Medical Plan: [facility] dual-chamber pacemaker with recent remote interrogation showing battery life less than 3 months. He has had V artifact at times which is not new. Remote monitoring in use. Patient aware that device is nearing SHANTELLE and that gen change will be needed at some point in the near future. At this time will send referral to electrophysiology so that when SHANTELLE occurs GEN change can be done seamlessly. Also ask that EP evaluate RV lead. (5) On anticoagulant therapy: Comment: (Eliquis) Code(s): Z79.01 - long term acute care registered nurse (current) use of anticoagulants Category: Medical Plan: Patient is on Eliquis (6) PAF (paroxysmal atrial fibrillation): Code(s): I48.0 - Paroxysmal atrial fibrillation Category: Medical Plan: History of PAF. Episode of paroxysmal atrial fibrillation on 11/29/2023 resulting in ER evaluation. At time of ER arrival he was in normal sinus rhythm. Device interrogation does show episode of AF prior to his arrival. Unknown trigger. He reports compliance with all his meds. No recurrent AF since that time. Will continue on current metoprolol. Continue Eliquis. Discussed stress and caffeine reduction as able. If he does have recurrent episodes of paroxysmal atrial fibrillation then he may need antiarrhythmic since he is quite symptomatic. (7) S/P cardiac cath: Comment: 11/04/2023, left main normal, lad apical 80% stenosis, left circumflex mid 60% stenosis, RCA less than 30% stenosis, patent stents in the right PDA and RCA distal Code(s): Z98.890 - Other specified postprocedural states Category: Surgical Plan: As above Plan Time spent on chart review, documentation, interview and assessment Orders: Orders Basic Metabolic Panel Today R06.02 - Shortness of breath B Type Natriuretic Peptide Today R06.02 - Shortness of breath Lipid Panel Today I25.10 - Atherosclerotic heart disease of [place] coronary artery without angina pectoris Referrals Cardiac Electrophysiology Referral Z79.01 - snf (current) use of anticoagulants, Z95.0 - Presence of cardiac pacemaker Medications: New apixaban (Eliquis) 5 mg PO BID 90 days 180 tabs 3RF Coding Level of Care Code Est Pt Level 4 (94553) Diagnoses Orthopnea R06.01 CAD (coronary artery disease) I25.10 Sick sinus syndrome I49.5 Pacemaker Z95.0 On anticoagulant therapy Z79.01 PAF (paroxysmal atrial fibrillation) I48.0 S/P cardiac cath Z98.890 Time Spent (min) 28
== END 2024-01-01 09:56 | disposition home or self-care (01) ==
PROVIDERS: Visit Provider Nurse Practitioner Family
DX: R06.01 Orthopnea (principal); I25.10 Atherosclerotic heart disease of native coronary artery without angina pectoris; I49.5 Sick sinus syndrome; Z95.0 Presence of cardiac pacemaker; Z79.01 Long term (current) use of anticoagulants; I48.0 Paroxysmal atrial fibrillation; Z98.890 Other specified postprocedural states
CPT/HCPCS: 99214

== ENCOUNTER → 2024-01-01 09:05 | Outpatient (BNVA) | payer MEDICARE, MEDICAID, SELFPAY | PROVIDERS: Visit Provider Nurse Practitioner Family | DX: Z45.018 Encounter for adjustment and management of other part of cardiac pacemaker (principal); R06.01 Orthopnea; I25.10 Atherosclerotic heart disease of native coronary artery without angina pectoris; I10 Essential (primary) hypertension; I49.5 Sick sinus syndrome; I48.0 Paroxysmal atrial fibrillation; Z98.890 Other specified postprocedural states; Z79.01 Long term (current) use of anticoagulants | CPT/HCPCS: 99212 ==

== ENCOUNTER 2024-01-02 06:20 | Outpatient (REF) | payer MEDICARE, MEDICAID, SELFPAY ==
[2024-01-02 07:59] LABS: B Type Natriuretic Peptide 113 pg/mL (<100)
[2024-01-02 08:00] LABS: Anion Gap 11 (12-20); Blood Urea Nitrogen 17 mg/dL (9-16); Calcium 9.1 mg/dL (8.4-10.2); Carbon Dioxide 26 mmol/L (22-29); Chloride 107 mmol/L (96-108); Cholesterol 154 mg/dL (<200); Estimated Glomerular Filt Rate > 60; Glucose Random 125 mg/dL (60-115); HDL Cholesterol 49 mg/dL (>40); LDL Cholesterol Calculated 83 mg/dL (<100); Sodium 140 mmol/L (135-145); Triglycerides 112 mg/dL (<150)
== END 2024-01-02 06:21 | disposition home or self-care (01) ==
LOC: HO.LAB 06:20
PROVIDERS: PCP Internal Medicine Geriatric Medicine; Visit Provider Nurse Practitioner Family
DX: R06.02 Shortness of breath (principal); I25.10 Atherosclerotic heart disease of native coronary artery without angina pectoris
CPT/HCPCS: 36415; 80048; 80061; 83880

== ENCOUNTER 2024-01-19 16:35 | Outpatient (REF) | payer MEDICARE, MEDICAID, SELFPAY ==
[2024-01-19 18:17] LABS: B Type Natriuretic Peptide 36 pg/mL (<100)
[2024-01-19 18:22] LABS: Anion Gap 12 (12-20); Blood Urea Nitrogen 21 mg/dL (9-16); Calcium 8.6 mg/dL (8.4-10.2); Carbon Dioxide 27 mmol/L (22-29); Chloride 104 mmol/L (96-108); Estimated Glomerular Filt Rate > 60; Glucose Random 125 mg/dL (60-115); Potassium 4.3 mmol/L (3.3-5.1); Sodium 139 mmol/L (135-145)
== END 2024-01-19 16:36 | disposition home or self-care (01) ==
LOC: HO.LAB 16:35
PROVIDERS: PCP Internal Medicine Geriatric Medicine; Visit Provider Nurse Practitioner
DX: R06.02 Shortness of breath (principal)
CPT/HCPCS: 36415; 80048; 83880

== ENCOUNTER → 2024-02-17 13:45 | Outpatient (BNVA) | payer MEDICARE, MEDICAID, SELFPAY | PROVIDERS: PCP Internal Medicine Geriatric Medicine; Visit Provider Surgery Vascular Surgery ==

== ENCOUNTER 2024-02-24 10:29 | Outpatient (AMB) | payer MEDICARE, MEDICAID, SELFPAY ==
[2024-02-24 10:35] VITALS: BMI 28.0
--- NOTE | 2024-02-24 10:35 | A.OFFVIS_ITS ---
Vital Signs 02/24/24 10:35 Height 5 ft 11 in Weight 201 lb BMI 28.0 Intake Visit Reasons: Leg pain & swelling , last seen 2021 Intake Note: PRN follow up Left LE pain and swelling that has worsened over the past month. Left leg pain w/ or w/o ambulation. states leg swelling is decreasing. Pt states he had woke up in the middle of the night to extreme leg pain and it felt . Left Leg heaviness. Quality Assistant Required: No Accompanied by: Self / Same As Patient Allergies bee pollen [BEE STINGS] Allergy (Severe, Verified 02/24/24 10:41) ANAPHYLAXIS indomethacin [Indocin] Allergy (Severe, Verified 02/24/24 10:41) anaphylaxis tramadol [Ultram] Allergy (Severe, Verified 02/24/24 10:41) anaphylaxis fentanyl Adverse Reaction (Verified 02/24/24 10:41) Anxiety HPI HPI Leg pain & swelling , last seen 2021: Details: Very pleasant 68-year-old gentleman presents for follow-up evaluation regarding his lower extremities. He had actually seen us back in October of 2021. At that time had reported 3 prior episodes of DVT. Been anticoagulated on Eliquis. Been using compression but noted increased swelling of the left lower extremity. It was a source of discomfort for him. He now presents for follow-up re- evaluation. At that time he had also undergone arterial testing as well. He has had no significant interval changes. [facility] Medical History Elevated cholesterol History of chemotherapy Obstructive sleep apnea (~2018) On anticoagulant therapy Personal history of nicotine dependence DVT (deep venous thrombosis) Essential hypertension Tubular adenoma of colon COVID-19 vaccine administered Seizures (~04/2020) GERD (gastroesophageal reflux disease) Esophagitis Atherosclerotic cardiovascular disease Brain lesion Psychotic disorder Syncope Headache Myocardial infarction Pacemaker (~05/2013) Tremor Brain bleed CAD (coronary artery disease) Surgical History Hx of shoulder surgery History of total left knee replacement History of ERCP History of spinal surgery History of colonoscopy (~09/2020) History of right knee surgery (~12/2013) History of total right hip replacement (~06/2012) History of cholecystectomy History of cardiac catheterization History of permanent cardiac pacemaker placement (~05/2013) History of esophagogastroduodenoscopy (EGD) (~09/2020) History of appendectomy Stented coronary artery Family History Father Heavy cigarette smoker Throat cancer Mother Heart disease Social History Household Members: None Household Members Other:: shares house with a friend Housing: House Are you a primary acute care surgeon to a significant other at home: No Do you presently have visiting nurse or other home services: No Alcohol intake: never Comment: resting eyes closed Patient Tobacco Use Status: Former Tobacco user Tobacco use type: Cigarette Years Smoked: 8 +/- e-Cigarette/Vaping Use: Never Used Second Hand Smoke Exposure: No Advance Directives Date on File: 12/16/20 service: No Current occupational status: employed and retired Review of Systems Const Reports as per HPI ENT Reports no additional complaints Card Denies chest pain, Denies chest pain at rest and Denies chest pain with activity Resp Denies chest congestion and Denies cough GI Reports no additional complaints Musc Details: pain over varicosities, aching of lower extremities, swelling, cramping, heaviness and tiredness, itching Denies abnormal gait Skin/Breast Reports pruritus and Denies wounds Neuro Reports no additional complaints and Denies abnormal gait Psych Denies no additional complaints Physical Exam Vital Signs: BMI result Body Mass Index 28.0 Const General: cooperative, healthy appearing and comfortable Orientation/consciousness: oriented to person, oriented to place and oriented to time Neck Carotids: no bruits Chest Chest palpation & inspection: normal inspection of the chest and normal palpation of entire chest wall Resp Effort & Inspection: normal respiratory effort and able to speak in complete sentences Cardio Other: Bilateral palpable dorsalis pedis pulses Rate: regular rate Heart sounds: S1 normal heart sound present and S2 normal heart sound present Peripheral pulses: Peripheral pulses 2+ throughout GI Inspection: Yes normal to inspection Skin Other: +2 edema CEAP Classification C4 - skin color changes Ep - Etiology Primary As - superficial veins P - reflux General skin exam: dry skin Neuro General: oriented to person, oriented to place and oriented to time Extrem Right lower extremity: full ROM, normal capillary refill and edema Left lower extremity: full ROM, normal capillary refill and edema Psych Mental Status: mental status grossly normal Assessment & Plan Assessment & Plan (1) Varicose veins of left lower extremity with inflammation: Code(s): I83.12 - Varicose veins of left lower extremity with inflammation Category: Medical Plan: In short patient does have evidence of venous insufficiency. The mere fact that he has a prior history of DVT will lead to insufficiency. I have taken the reed ashton of ordering repeat venous insufficiency testing. We did discuss routine conservative measures including compression, elevation, exercise. The patient will follow up with us after testing. Thank you for allowing us to assist in his care. If there are any questions or concerns please do not hesitate to contact us. Orders: Orders US venous duplex LE BI 1 Week I83.12 - Varicose veins of left lower extremity with inflammation Coding Level of Care Code Est Pt Level 4 (85504) Diagnoses Varicose veins of left lower extremity with inflammation I83.12
== END 2024-02-24 10:56 | disposition home or self-care (01) ==
PROVIDERS: PCP Internal Medicine Geriatric Medicine; Visit Provider Surgery Vascular Surgery
DX: I83.12 Varicose veins of left lower extremity with inflammation (principal)
CPT/HCPCS: 99214

== ENCOUNTER → 2024-02-24 10:29 | Outpatient (BNVA) | payer MEDICARE, MEDICAID, SELFPAY | PROVIDERS: PCP Internal Medicine Geriatric Medicine; Visit Provider Surgery Vascular Surgery | DX: I83.12 Varicose veins of left lower extremity with inflammation (principal); Z86.718 Personal history of other venous thrombosis and embolism; Z79.01 Long term (current) use of anticoagulants | CPT/HCPCS: 99212 ==

== ENCOUNTER 2024-03-04 10:03 | Outpatient (REF) | payer MEDICARE, MEDICAID, SELFPAY ==
--- NOTE | ~2024-03-04 | US_ITS ---
EXAMINATION: US LOWER EXTREMITY VENOUS (REFLUX EXAM), BILATERAL CLINICAL INDICATION: Varicose veins COMPARISON: None. TECHNIQUE: Color flow triplex imaging and compression Doppler was performed to evaluate both the deep and the superficial systems bilaterally. To evaluate the superficial system, the examination was performed in the upright position. Color-flow Doppler ultrasound and compression ultrasound were utilized. In addition, maneuvers were utilized to demonstrate reflux. FINDINGS: 1. DEEP VENOUS ULTRASOUND OF THE RIGHT LOWER EXTREMITY: Common Femoral Vein: Compressible, normal respiratory variation and augmented flow. Femoral Vein: Compressible, normal color flow and augmentation. Popliteal Vein: Compressible, normal augmentation. Deep Reflux: There is no evidence of reflux in the deep system in either the common femoral vein, superficial femoral or the popliteal vein. There is no evidence of a Cano's cyst. 2. SUPERFICIAL ULTRASOUND WITH DOPPLER OF RIGHT LOWER EXTREMITY: GREAT SAPHENOUS VEIN: Saphenofemoral Junction: 0.38 cm; Reflux: 0 ms Proximal Thigh: 0.35 cm; Reflux: 0 ms Mid Thigh: 0.43 cm; Reflux: 744 ms Above Knee: 0.40 cm; Reflux: 0 ms At Knee: 0.3 cm; Reflux: 0 ms Below Knee: 0.32 cm; Reflux: 1952 ms Mid Calf: 0.31 cm; Reflux: 0 ms Ankle: 0.39 cm; Reflux: 0 ms DUPLICATED MEDIAL GREAT SAPHENOUS VEIN: Diameter: None imaged Reflux: NA DUPLICATED LATERAL GREAT SAPHENOUS VEIN: Saphenofemoral Junction: 0.31 cm; Reflux: 0 ms Mid thigh: 0.38 cm; Reflux: 0 ms SMALL SAPHENOUS VEIN: Saphenopopliteal Junction: 0.23 cm; Reflux: 0 ms Proximal: 0.20 cm; Reflux: 0 ms Distal: 0.27 cm; Reflux: 0 ms VEIN OF GIACOMINI: Size: NA Reflux: NA VARICOSITIES: Location: Multiple small varicose veins throughout the calf. Size: Less than 3 mm Reflux: NA 3. DEEP VENOUS ULTRASOUND OF THE LEFT LOWER EXTREMITY: Common Femoral Vein: Compressible, normal respiratory variation and augmented flow. Femoral Vein: Compressible, normal color flow and augmentation. Popliteal Vein: Compressible, normal augmentation. Deep Reflux: There is no evidence of reflux in the deep system in either the common femoral vein, superficial femoral or the popliteal vein. There is no evidence of a Caon's cyst. 4. SUPERFICIAL ULTRASOUND WITH DOPPLER OF LEFT LOWER EXTREMITY: GREAT SAPHENOUS VEIN: Saphenofemoral Junction: 0.60 cm; Reflux: 0 ms Proximal Thigh: 0.57 cm; Reflux: 0 ms Mid Thigh: 0.42 cm; Reflux: 2736 ms Above Knee: 0.43 cm; Reflux: 2760 ms At Knee: 0.40 cm; Reflux: 0 ms Below Knee: 0.47 cm; Reflux: 980 ms Mid Calf: 0.29 cm; Reflux: 0 ms Ankle: 0.32 cm; Reflux: 0 ms DUPLICATED MEDIAL GREAT SAPHENOUS VEIN: Diameter: None imaged Reflux: NA DUPLICATED LATERAL GREAT SAPHENOUS VEIN: Saphenofemoral Junction: 0.54 cm; Reflux: 0 ms Mid thigh: 0.34 cm; Reflux: 0 ms SMALL SAPHENOUS VEIN: Saphenopopliteal Junction: 0.43 cm; Reflux: 0 ms Proximal: 0.26 cm; Reflux: 0 ms Distal: 0.18 cm; Reflux: 0 ms VEIN OF GIACOMINI: Size: NA Reflux: NA PERFORATORS: Location: None imaged Size: NA Reflux: NA VARICOSITIES: Location: Multiple small varicose veins throughout the calf. Size: Less than 3 mm Reflux: NA US/US venous duplex LE BI IMPRESSION: 1. Right: Segmental reflux in the great saphenous vein in the mid thigh and below the knee. Multiple small varicose veins throughout the calf. 2. Left: Segmental reflux in the great saphenous vein in the mid thigh and below the knee. Multiple small varicose veins throughout the calf. Electronically signed by: Chasity Hamilton MD 03/09/2024 11:10 AM EDT
== END 2024-03-04 10:04 | disposition home or self-care (01) ==
LOC: HO.US 10:03
PROVIDERS: PCP Internal Medicine Geriatric Medicine; Visit Provider Surgery Vascular Surgery
DX: I83.12 Varicose veins of left lower extremity with inflammation (principal)
CPT/HCPCS: 93970

== ENCOUNTER 2024-03-15 12:58 | Outpatient (AMB) | payer MEDICARE, MEDICAID, SELFPAY ==
[2024-03-15 13:15] VITALS: BP 118/62; PULSE 72; BMI 28.9
--- NOTE | 2024-03-15 13:15 | MHC.OFFVIS ---
Vital Signs 03/15/24 13:15 Height 5 ft 11 in Weight 207 lb BMI 28.9 BP 118/62 Blood Pressure Location Lt brachial Position Sitting Pulse 72 Pulse Source Pulse Oximeter Intake Visit Reasons: f/up w/ st [facility] ck Allergies bee pollen [BEE STINGS] Allergy (Severe, Verified 02/24/24 10:41) ANAPHYLAXIS indomethacin [Indocin] Allergy (Severe, Verified 02/24/24 10:41) anaphylaxis tramadol [Ultram] Allergy (Severe, Verified 02/24/24 10:41) anaphylaxis fentanyl Adverse Reaction (Verified 02/24/24 10:41) Anxiety Medication List - Last Reconciled 03/15/24 by Oren Mueller MD amlodipine 10 mg PO DAILY apixaban (Eliquis) 5 mg PO BID 90 days divalproex ER (Depakote ER) 250 mg PO BEDTIME esomeprazole magnesium 40 mg PO QAM ezetimibe (Zetia) 10 mg PO DAILY hyoscyamine sulfate 0.125 mg PO BID-QID PRN isosorbide mononitrate ER 60 mg PO DAILY lisinopril 5 mg PO DAILY mesalamine ER (Apriso) 1.5 grams (4 x 0.375 gram) PO QAM metoprolol tartrate 100 mg PO BID 90 days multivitamin (Daily Vitamin Formula tablet) 1 tab PO DAILY nitroglycerin (Nitrostat) 0.4 mg sublingual Q5M PRN ondansetron 4 mg PO Q8H PRN oxycodone 10 mg PO Q5H PRN pantoprazole 40 mg PO ranolazine ER 1,000 mg PO BID rosuvastatin (Crestor) 40 mg PO BEDTIME HPI Comments Details: Myles returns for follow-up regarding various cardiac issues including coronary disease, pacemaker among others. He has longstanding chest pains and has undergone several cardiac catheterization in the past. In 2015, he underwent balloon angioplasty of the distal LAD. In 2017, inferior STEMI, treated by drug-eluting stent to proximal RPL. Then another catheterization which led to stenting of the distal RCA. Most recently, had another catheterization 2023 but no new interventions. He also has permanent pacemaker in place. Overall, he states that he feels fine. No new concerns. No specific cardiac symptoms. [facility] Medical History Elevated cholesterol History of chemotherapy Obstructive sleep apnea (~2018) On anticoagulant therapy Personal history of nicotine dependence DVT (deep venous thrombosis) Essential hypertension Tubular adenoma of colon COVID-19 vaccine administered Seizures (~04/2020) GERD (gastroesophageal reflux disease) Esophagitis Atherosclerotic cardiovascular disease Brain lesion Psychotic disorder Syncope Headache Myocardial infarction Pacemaker (~05/2013) Tremor Brain bleed CAD (coronary artery disease) Surgical History Hx of shoulder surgery History of total left knee replacement History of ERCP History of spinal surgery History of colonoscopy (~09/2020) History of right knee surgery (~12/2013) History of total right hip replacement (~06/2012) History of cholecystectomy History of cardiac catheterization History of permanent cardiac pacemaker placement (~05/2013) History of esophagogastroduodenoscopy (EGD) (~09/2020) History of appendectomy Stented coronary artery Family History Father Heavy cigarette smoker Throat cancer Mother Heart disease Social History Household Members: None Household Members Other:: shares house with a friend Housing: House Are you a primary career development director to a significant other at home: No Do you presently have visiting nurse or other home services: No Alcohol intake: never Comment: resting eyes closed Patient Tobacco Use Status: Former Tobacco user Tobacco use type: Cigarette Years Smoked: 8 +/- e-Cigarette/Vaping Use: Never Used Second Hand Smoke Exposure: No Advance Directives Date on File: 12/16/20 service: No Current occupational status: employed and retired Review of Systems Const Denies weakness ENT Reports dizziness Card Denies chest pain, Denies chest pain with activity, Denies syncope, Denies rapid heart rate, Denies pedal edema, Denies edema, Denies leg edema, Denies lightheadedness, Denies palpitations, Denies dyspnea, Denies dyspnea on exertion and Denies orthopnea Resp Denies cough, Denies dyspnea and Denies dyspnea on exertion GI Denies hematochezia and Denies change in stool character Musc Denies abnormal gait, Denies muscle cramps, Denies muscle weakness, Denies numbness, Denies radiating pain into limb and Denies tingling Neuro Denies abnormal gait, Reports dizziness, Denies syncope, Denies numbness, Denies tingling and Denies weakness Endo Denies palpitations Physical Exam Vital Signs: Last Vital Signs Pulse 72 03/15/24 13:15 BP 118/62 03/15/24 13:15 BMI result Body Mass Index 28.9 Const General: comfortable and no acute distress Orientation/consciousness: patient oriented x3 HEENT Other: Unremarkable Head: Yes normal to inspection Neck Neck: Yes normal visual inspection Chest Chest palpation & inspection: normal inspection of the chest Resp Auscultation: clear to auscultation bilaterally Cardio Palpation: normal PMI Heart sounds: S1 normal heart sound present, S2 normal heart sound present, no gallops, no murmurs and no rubs GI Palpation (GI): Soft to palpation Back/Spine/Pelvis Other: unremarkable Skin General skin exam: no rashes or lesions noted Neuro General: patient oriented x3 Extrem General: Yes normal to inspection Psych Mental Status: mental status grossly normal Office Procedures Cardiac Device Check Cardiac Device Check Details: Pacemaker interrogated today. SHANTELLE and less than 3 months. Mode DDDR. Normal lead parameters. Atrial pacing 43%. Ventricular pacing less than 1%. Ventricular lead noise but stable. Overall, normal device function. [id number] Cardiac Device Check, pacemaker dual lead Procedure code (CPT) selection complete Assessment & Plan Assessment & Plan (1) Atherosclerotic cardiovascular disease: Code(s): I25.10 - Atherosclerotic heart disease of [place] coronary artery without angina pectoris Category: Medical Plan: Cardiac catheterization -12/2023-moderate diffuse disease in the LAD with apical LAD stenosis. Apical segment is small in size/small territory. Circumflex 60% proximal to mid stenosis but IFR negative. Patent stents in PDA and RPL. Overall, continue current regimen including beta-blockers, long-acting nitrates, ranolazine. It was felt that a lot of his chest pain episodes could be from his anxiety. Continue statins. (2) Essential hypertension: Code(s): I10 - Essential (primary) hypertension Category: Medical Plan: Stable. Continue amlodipine, lisinopril. (3) Sick sinus syndrome: Code(s): I49.5 - Sick sinus syndrome Category: Medical Plan: Status post pacemaker placement. Approaching SHANTELLE. We will refer to EP for generator change. (4) Pacemaker lead malfunction: Code(s): T82.110A - Breakdown (mechanical) of cardiac electrode, initial encounter Category: Medical Plan: He does have ventricular lead noise on device interrogation but minimal ventricular pacing. To be followed. At time of generator change, possible lead revision based on EP recommendations. (5) Atrial flutter: Code(s): I48.92 - Unspecified atrial flutter Category: Medical Plan: Remote monitoring in the past had suggested brief episodes of atrial fibrillation/flutter. Continue beta-blockers and anticoagulation. Coding Level of Care Code Est Pt Level 4 (35991) Diagnoses Atherosclerotic cardiovascular disease I25.10 Essential hypertension I10 Sick sinus syndrome I49.5 Pacemaker lead malfunction T82.110A Atrial flutter I48.92 CPT Codes Cardiac Device Check - Cardiac Device 2: [id number] Cardiac Device Check, pacemaker dual lead ([id number])
== END 2024-03-15 13:43 | disposition home or self-care (01) ==
PROVIDERS: PCP Internal Medicine Geriatric Medicine; Visit Provider Nurse Practitioner Family
DX: I25.10 Atherosclerotic heart disease of native coronary artery without angina pectoris (principal); I10 Essential (primary) hypertension; I49.5 Sick sinus syndrome; T82.110A Breakdown (mechanical) of cardiac electrode, initial encounter; I48.92 Unspecified atrial flutter
CPT/HCPCS: 93280; 99214

== ENCOUNTER → 2024-03-15 12:58 | Outpatient (BNVA) | payer MEDICARE, MEDICAID, SELFPAY | PROVIDERS: PCP Internal Medicine Geriatric Medicine; Visit Provider Nurse Practitioner Family | DX: I25.10 Atherosclerotic heart disease of native coronary artery without angina pectoris (principal); I10 Essential (primary) hypertension; I48.92 Unspecified atrial flutter; I49.5 Sick sinus syndrome; T82.110A Breakdown (mechanical) of cardiac electrode, initial encounter; Z45.018 Encounter for adjustment and management of other part of cardiac pacemaker | CPT/HCPCS: 93280; 99212 ==

== ENCOUNTER 2024-04-07 08:44 | Outpatient (REF) | payer MEDICARE, MEDICAID, SELFPAY ==
[2024-04-07 11:29] LABS: MANUAL DIFF FLAG NO
[2024-04-07 11:43] LABS: Basophils Absolute Auto 0.1 X10*3/uL (0.0-0.2); Basophils Percent Auto 0.9 % (0-2); Eosinophils Absolute Auto 0.3 X10*3/uL (0.0-0.4); Eosinophils Percent Auto 2.9 % (0-4); Hematocrit 40.6 % (42.0-52.0); Hemoglobin 13.5 g/dl (14.0-18.0); Imm Gran Abs Auto 0.04 X10*3/uL (0.00-0.03); Imm Gran Pct Auto 0.5 % (0.0-0.4); Lymphocytes Percent Auto 23.9 % (20-40); Mean Corpuscular HGB Conc 33.3 g/dl (31.0-36.0); Mean Corpuscular Hemoglobin 30.4 pg (27.0-33.0); Mean Corpuscular Volume 91.4 fL (80.0-98.0); Mean Platelet Volume 9.2 fL (9.4-12.4); Monocytes Absolute Auto 0.8 X10*3/uL (0.1-1.2); Monocytes Percent Auto 9.5 % (2-11); Neutrophils Absolute Auto 5.3 x10*3/uL (2.0-8.3); Neutrophils Percent Auto 62.3 % (45-73); Platelet Count 283 X10*3/uL (160-400); Red Blood Count 4.44 X10*6/uL (4.60-5.80); Red Cell Distribution Width 12.8 % (11.0-16.0); White Blood Count 8.5 X10*3/uL (4.8-10.8)
[2024-04-07 12:11] LABS: Alanine Aminotransferase 14 U/L (0-40); Alkaline Phosphatase 77 U/L (39-117); Aspartate Amino Transferase 24 U/L (5-37); Bilirubin Direct 0.2 mg/dL (0.0-0.5); Bilirubin Total 0.4 mg/dL (0.0-1.0); Total Protein 6.9 g/dL (6.5-8.0)
[2024-04-07 12:30] LABS: Erythrocyte Sedimentation Rate 18 MM/HR (0-15)
== END 2024-04-07 08:45 | disposition home or self-care (01) ==
LOC: HO.HHCL 08:44
PROVIDERS: Visit Provider Internal Medicine
DX: R10.32 Left lower quadrant pain (principal); K62.5 Hemorrhage of anus and rectum
CPT/HCPCS: 36415; 80076; 85025; 85652

== ENCOUNTER 2024-04-15 12:26 | Outpatient (AMB) | payer MEDICARE, MEDICAID, SELFPAY ==
--- NOTE | 2024-04-15 13:02 | MHC.OFFVIS ---
Intake Visit Reasons: Follow Up US Intake Note: Patient presents for US follow up. No complaints. Accompanied by: Self / Same As Patient Allergies bee pollen [BEE STINGS] Allergy (Severe, Verified 04/15/24 13:03) ANAPHYLAXIS indomethacin [Indocin] Allergy (Severe, Verified 04/15/24 13:03) anaphylaxis tramadol [Ultram] Allergy (Severe, Verified 04/15/24 13:03) anaphylaxis fentanyl Adverse Reaction (Verified 04/15/24 13:03) Anxiety HPI HPI Follow Up US: Details: Very pleasant 69-year-old gentleman presents for follow-up regarding venous insufficiency. He has a prior history of DVTs and has been anticoagulated on Eliquis. He has had increased swelling and discomfort of the left lower extremity. He has been compliant with his compression with minimal relief. He now presents for follow-up with venous insufficiency testing. [facility] Medical History Elevated cholesterol History of chemotherapy Obstructive sleep apnea (~2018) On anticoagulant therapy Personal history of nicotine dependence DVT (deep venous thrombosis) Essential hypertension Tubular adenoma of colon COVID-19 vaccine administered Seizures (~04/2020) GERD (gastroesophageal reflux disease) Esophagitis Atherosclerotic cardiovascular disease Brain lesion Psychotic disorder Syncope Headache Myocardial infarction Pacemaker (~05/2013) Tremor Brain bleed CAD (coronary artery disease) Surgical History Hx of shoulder surgery History of total left knee replacement History of ERCP History of spinal surgery History of colonoscopy (~09/2020) History of right knee surgery (~12/2013) History of total right hip replacement (~06/2012) History of cholecystectomy History of cardiac catheterization History of permanent cardiac pacemaker placement (~05/2013) History of esophagogastroduodenoscopy (EGD) (~09/2020) History of appendectomy Stented coronary artery Family History Father Heavy cigarette smoker Throat cancer Mother Heart disease Social History Household Members: None Household Members Other:: shares house with a friend Housing: House Are you a primary home care attendant to a significant other at home: No Do you presently have visiting nurse or other home services: No Alcohol intake: never Comment: resting eyes closed Patient Tobacco Use Status: Former Tobacco user Tobacco use type: Cigarette Years Smoked: 8 +/- e-Cigarette/Vaping Use: Never Used Second Hand Smoke Exposure: No Advance Directives Date on File: 12/16/20 service: No Current occupational status: employed and retired Review of Systems Const Reports as per HPI ENT Reports no additional complaints Card Denies chest pain, Denies chest pain at rest and Denies chest pain with activity Resp Denies chest congestion and Denies cough GI Reports no additional complaints Musc Details: pain over varicosities, aching of lower extremities, swelling, cramping, heaviness and tiredness, itching Denies abnormal gait Skin/Breast Reports pruritus and Denies wounds Neuro Reports no additional complaints and Denies abnormal gait Psych Denies no additional complaints Physical Exam Const General: cooperative, healthy appearing and comfortable Orientation/consciousness: oriented to person, oriented to place and oriented to time Neck Carotids: no bruits Chest Chest palpation & inspection: normal inspection of the chest and normal palpation of entire chest wall Resp Effort & Inspection: normal respiratory effort and able to speak in complete sentences Cardio Rate: regular rate Heart sounds: S1 normal heart sound present and S2 normal heart sound present Peripheral pulses: Peripheral pulses 2+ throughout GI Inspection: Yes normal to inspection Skin Other: +2 edema CEAP Classification C4 - skin color changes Ep - Etiology Primary As - superficial veins P - reflux General skin exam: dry skin Neuro General: oriented to person, oriented to place and oriented to time Extrem Right lower extremity: full ROM, normal capillary refill and edema Left lower extremity: full ROM, normal capillary refill and edema Psych Mental Status: mental status grossly normal Results Reviewed Results Reviewed: Brief summary of venous insufficiency testing is as follows: right great saphenous vein: Focally positive below-knee right small saphenous vein: negative right accessory vein: none present left great saphenous vein: Positive left small saphenous vein: negative left accessory vein: none present Please note there is no evidence of any venous aneurysms or significant tortuosity Assessment & Plan Assessment & Plan (1) Varicose veins of left lower extremity with inflammation: Code(s): I83.12 - Varicose veins of left lower extremity with inflammation Category: Medical Plan: This patient has varicose veins with inflammation. They continue to be a source of discomfort for the patient. The patient has tried conservative treatment with compression, leg elevation and exercise program for over 3 months time. They have been compliant with all treatment. This has provided minimal relief for the patient. I do not anticipate this course of treatment will alter the underlying etiology. The patient has been scheduled for lower extremity venous treatment inclusive of --- left great saphenous vein Cyanoacralate ablation. Risks, benefits, and complications of this procedure has been discussed in detail with the patient including but not limited to bleeding, infection, and the development of a DVT. The patient has demonstrated a clear understanding and has consented. We will schedule the patient as soon as possible. Thank you for allowing us to participate in this patient's care. If there are any questions or concerns please do not hesitate to contact us. Coding Level of Care Code Est Pt Level 4 (44026) Diagnoses Varicose veins of left lower extremity with inflammation I83.12
== END 2024-04-15 13:24 | disposition home or self-care (01) ==
LOC: HO.HVS 12:27
PROVIDERS: PCP Internal Medicine Geriatric Medicine; Visit Provider Surgery Vascular Surgery
DX: I83.12 Varicose veins of left lower extremity with inflammation (principal)
CPT/HCPCS: 99214

== ENCOUNTER → 2024-04-15 12:26 | Outpatient (BNVA) | payer MEDICARE, MEDICAID, SELFPAY | PROVIDERS: PCP Internal Medicine Geriatric Medicine; Visit Provider Surgery Vascular Surgery | DX: I83.12 Varicose veins of left lower extremity with inflammation (principal); Z86.718 Personal history of other venous thrombosis and embolism; Z79.01 Long term (current) use of anticoagulants | CPT/HCPCS: 99212 ==

== ENCOUNTER 2024-04-25 12:13 | Emergency (ER) | payer MEDICARE, MEDICAID, SELFPAY ==
--- NOTE | ~2024-04-25 | XR_ITS ---
EXAMINATION: XR CHEST CLINICAL INFORMATION: Postoperative pneumonia. COMPARISON: Most recent CT chest dated 07/31/2023. TECHNIQUE: Frontal view of the chest was obtained. FINDINGS: No airspace consolidation. No pleural effusion or pneumothorax. Stable cardiomediastinal silhouette. Left chest wall pacer with its leads in the right heart. XR/XR chest 1V IMPRESSION: No acute cardiopulmonary findings. Electronically signed by: Vidal Hurst MD 04/25/2024 02:06 PM [facility] [place]
[2024-04-25 12:16] VITALS: BP 158/91; PULSE 60; RESP 19; TEMP 36.6; O2SAT 98; BMI 27.2
--- NOTE | 2024-04-25 12:19 | ECG_ITS ---
Test Reason : CP RESOLVED,POST-OP Blood Pressure : / mmHG Vent. Rate : 060 BPM Atrial Rate : 060 BPM P-R Int : 202 ms QRS Dur : 098 ms QT Int : 434 ms P-R-T Axes : 098 -12 041 degrees QTc Int : 434 ms Atrial-paced rhythm Cannot rule out Inferior infarct (cited on or before 29-NOV-2017) Abnormal ECG When compared with ECG of 29-NOV-2023 19:08, No significant change was found Referred By: Chuck Barnett Electronically Signed By:JEFFREY BASILIO MD
--- NOTE | 2024-04-25 12:21 | ED_ITS ---
HPI - General Adult General Chief complaint: General Medical Stated complaint: Post-op issues, sweating Time Seen by Provider: 04/25/24 12:51 Source: patient and old records reviewed Mode of arrival: ambulatory Limitations: no limitations History of Present Illness ED Provider: ROMANA SHAY narrative: 69 yo male with PMH of CAD s/p stent, PAD, SSS with PPM s/p revision at [facility] on Friday, aflutter, GERD, DVT on eliquis here with c/o having his PPM revised on Friday resumed eliquis that night. He has chronic intermittent chest pain that is not new and states that is not why he is here - takes SL nitro regularly it is par for the course. He notes he came in because he was told if he felt feverish he should get checked out. He notes last night and this AM temp 100 yesterday then this AM 99. He feels fevers and tired. No cough, dysuria, sore throat, abdominal pain n/v/d. No CP/SOB today. He wasn't sure if the pacer site is infected - noted some redness but no drainage. There is swelling mild ttp but no sig pain. No travel, no tick bites complaint: concern about infection Onset (ago): day(s) (1) Location: chest Radiation: non-radiation Severity: mild Quality: dull Pain Consistency: intermittent Relieving factors: none Exacerbating factors: none Associated symptoms: fever/chills Treatments prior to arrival: none Related Data Home Medications ?Medication ?Instructions ?Recorded ?Confirmed rosuvastatin 40 mg tablet (Crestor) 40 mg PO BEDTIME chloestrol 04/25/20 03/15/24 oxycodone 10 mg tablet 10 mg PO Q5H PRN Moderate Pain 04/26/20 03/15/24 (Scale Score 5-6) divalproex 250 mg tablet,extended 250 mg PO BEDTIME 09/08/20 03/15/24 release 24 hr (Depakote ER) ezetimibe 10 mg tablet (Zetia) 10 mg PO DAILY 10/24/20 03/15/24 multivitamin (Daily Vitamin 1 tab PO DAILY 10/24/20 03/15/24 Formula tablet) ranolazine 1,000 mg 1,000 mg PO BID 09/10/22 03/15/24 tablet,extended release,12 hr lisinopril 5 mg tablet 5 mg PO DAILY 12/09/22 03/15/24 pantoprazole 40 mg tablet,delayed 40 mg PO 09/12/23 03/15/24 release Previous Rx's ?Medication ?Instructions ?Recorded hyoscyamine sulfate 0.125 mg 0.125 mg PO BID-QID PRN dyspepsia 06/23/23 disintegrating tablet #30 tabs nitroglycerin 0.4 mg sublingual 0.4 mg sublingual Q5M PRN chest 06/23/23 tablet (Nitrostat) pain #25 tabs ondansetron 4 mg disintegrating 4 mg PO Q8H PRN nausea and 09/02/23 tablet vomiting #20 tabs mesalamine 0.375 gram 1.5 g (4 x 0.375 gram) PO QAM #120 09/12/23 capsule,extended release 24 hr caps (Apriso) apixaban 5 mg tablet (Eliquis) 5 mg PO BID 90 days #180 tabs 01/01/24 amlodipine 10 mg tablet 10 mg PO DAILY #90 tabs 02/03/24 metoprolol tartrate 100 mg tablet See Rx Instructions .Route 04/12/24 .COMPLEX #180 tabs esomeprazole magnesium 40 mg 40 mg PO QAM #30 caps 04/15/24 capsule,delayed release isosorbide mononitrate 60 mg 60 mg PO DAILY #90 tabs 04/15/24 tablet,extended release 24 hr Allergies Allergy/AdvReac Type Severity Reaction Status Date / Time bee pollen [BEE STINGS] Allergy Severe ANAPHYLAXIS Verified 04/25/24 12:20 indomethacin [Indocin] Allergy Severe anaphylaxis Verified 04/25/24 12:20 tramadol [Ultram] Allergy Severe anaphylaxis Verified 04/25/24 12:20 fentanyl AdvReac Anxiety Verified 04/25/24 12:20 Review of Systems 2 Review of Systems: Constitutional : pos Fever, pos Chills, pos Fatigue ENT/Mouth : No sore throat, No Rhinorrhea Eyes: No Eye Pain, No Swelling, No Redness Cardiovascular : No Chest Pain, No SOB, No Dyspnea on Exertion Respiratory : No Cough, No Sputum Gastrointestinal : No Nausea, No Vomiting, No Diarrhea, No abdominal Pain Genitourinary : No Dysuria, No Urinary Frequency, No Hematuria, Musculoskeletal : No joint pain, No Myalgias, No Joint Swelling Skin : No Skin Lesions, No rash Neuro : No Weakness, No Numbness, No Dizziness, no Headache Psych : No Anxiety/Panic, No Depression All other systems reviewed and are negative COUNT INCLUDES THE [facility] Past Medical History Attestation statement: The following information was validated with the patient. Source: old records reviewed Medical History Elevated cholesterol History of chemotherapy Obstructive sleep apnea (~2018) On anticoagulant therapy Personal history of nicotine dependence DVT (deep venous thrombosis) Essential hypertension Tubular adenoma of colon COVID-19 vaccine administered Seizures (~04/2020) GERD (gastroesophageal reflux disease) Esophagitis Atherosclerotic cardiovascular disease Brain lesion Psychotic disorder Syncope Headache Myocardial infarction Pacemaker (~05/2013) Tremor Brain bleed CAD (coronary artery disease) Surgical History Hx of shoulder surgery History of total left knee replacement History of ERCP History of spinal surgery History of colonoscopy (~09/2020) History of right knee surgery (~12/2013) History of total right hip replacement (~06/2012) History of cholecystectomy History of cardiac catheterization History of permanent cardiac pacemaker placement (~05/2013) History of esophagogastroduodenoscopy (EGD) (~09/2020) History of appendectomy Stented coronary artery Family History Family History Father Heavy cigarette smoker Throat cancer Mother Heart disease Social History Social History Household Members: None Household Members Other:: shares house with a friend Housing: House Are you a primary healthcare network pricing consultant to a significant other at home: No Do you presently have visiting nurse or other home services: No Alcohol intake: never Comment: resting eyes closed Patient Tobacco Use Status: Former Tobacco user Tobacco use type: Cigarette Years Smoked: 8 +/- Smoked in Last 30 Days: No e-Cigarette/Vaping Use: Never Used Second Hand Smoke Exposure: No Use of substances other than those prescribed or required for medical reasons: No Advance Directives: Yes Advance Directives on File: Yes Advance Directives Date on File: 12/16/20 Do you have a plan to hurt others: No Plan service: No Current occupational status: employed and retired Physical Exam ED Vital Signs: Vital Signs - 24 hr 04/25/24 12:16 04/25/24 14:00 04/25/24 15:03 Temperature 98 F 98.2 F Pulse Rate 60 60 Respiratory Rate 19 18 Blood Pressure 158/91 H 92/67 99/57 L Pulse Oximetry 98 95 Oxygen Delivery Method Room Air Room Air 04/25/24 15:16 04/25/24 15:36 Temperature 98.0 F Pulse Rate 60 60 Respiratory Rate 18 Blood Pressure 108/68 108/68 Pulse Oximetry 98 Oxygen Delivery Method Room Air BMI result Body Mass Index 27.2 Appearance: Alert. Oriented X3. No acute distress. Eyes: Pupils equal, round and reactive to light. ENT: Pharynx normal. Neck: Normal inspection. Neck supple. CVS: Normal heart rate and rhythm. Pulses normal. Chest: L chest wall small swelling to the pocket but no drainage, no sig ttp redness around it is in the pattern of the dressing it is more contact dermatitis and not cellulitis Respiratory: No respiratory distress. Breath sounds normal. Abdomen: Soft and nontender. Skin: Skin warm and dry. Normal skin color. Normal skin turgor. Extremities: No lower extremity edema. No calf ttp Neuro: Oriented X 3. No motor deficit. No sensory deficit. Course Course Course Narrative: RME; 69-year-old male status post pacemaker placement on Friday presents to ED for fever, night sweats, chills, erythema at incision site, and some pain. Patient states only had chest pain last night no chest pain today. On exam positive for erythema around pacemaker site. No pus discharge. Labs chest x- ray EKG ordered. Reevaluation(s) Reevaluation #1: inflammatory markers are lower than preoperative ESR and CRP Reevaluation #2: recheck of area looks the same appears contact dermatitis repeat lactic acid negative has no complaints watching football Reevaluation #3: no drop in BP with standing Medications Administered Discontinued Medications Generic Name Dose Route Start Last Admin Trade Name Freq PRN Reason Stop Dose Admin Sodium Chloride 500 mls @ 500 mls/hr 04/25/24 13:03 04/25/24 14:33 Ns IV 04/25/24 14:02 Infused .Q1H ONE Infusion Medical Decision Making Medical Decision Making MDM Narrative: 69 yo male with PMH of CAD s/p stent, PAD, SSS with PPM s/p revision at [facility] on Friday, aflutter, GERD, DVT on eliquis here with c/o feeling feverish and chills worried about his pacer site - he denies cough, dysuria, abdominal pain , v/d, chest pain. He is on thinners doubt VTE started dose on Friday. He has no signs of cellulitis on the pacer it is mildly swollen but no drainage rash is in pattern of the dressing he had. Will obtain CXR, UA, basic labs and infl markers. Differential Diagnosis Differential Diagnoses: The differential diagnosis associated with the presentation includes viral syndrome, pneumonia, UTI, pacer pocket infection though low suspicion clinically Admission/Observation Consideration of admission/observation: Escalation of care including admission/observation considered work up negative stable for DC cultures sent off infl markers lower than baseline Lab Data MDM Lab Attestation statement: I reviewed the patient's lab results. 04/25/24 12:33 04/25/24 12:33 Labs: Lab Results 04/25/24 04/25/24 04/25/24 Range/Units 12:33 12:34 13:28 WBC 9.4 (4.8-10.8) X10*3/uL RBC 4.45 L (4.60-5.80) X10*6/uL Hgb 13.6 L (14.0-18.0) g/dl Hct 40.1 L (42.0-52.0) % MCV 90.1 (80.0-98.0) fL MCH 30.6 (27.0-33.0) pg MCHC 33.9 (31.0-36.0) g/dl RDW 13.0 (11.0-16.0) % Plt Count 301 (160-400) X10*3/uL MPV 8.4 L (9.4-12.4) fL Immature Gran % (Auto) 0.4 (0.0-0.4) % Neut % (Auto) 58.4 (45-73) % Lymph % (Auto) 27.0 (20-40) % [place] % (Auto) 7.8 (2-11) % Eos % (Auto) 5.3 H (0-4) % Baso % (Auto) 1.1 (0-2) % Lymph # (Auto) 2.6 (1.2-4.9) X10*3/uL [place] # (Auto) 0.7 (0.1-1.2) X10*3/uL Eos # (Auto) 0.5 H (0.0-0.4) X10*3/uL Baso # (Auto) 0.1 (0.0-0.2) X10*3/uL Abs Immat Gran (auto) 0.04 H (0.00-0.03) X10*3/uL Absolute Neuts (auto) 5.5 (2.0-8.3) x10*3/uL Absolute Nucleated RBC 0.000 (0.0-0.012) X10*3/uL Nucleated RBC % (auto) 0.0 (0.0-0.2) /100WBC ESR 16 H (0-15) MM/HR PT 10.9 (10.9-12.4) SEC INR 0.9 (0.9-1.1) APTT 36.7 (26.0-36.8) SEC Sodium 137 (135-145) mmol/L Potassium 4.2 (3.3-5.1) mmol/L Chloride 103 (96-108) mmol/L Carbon Dioxide 24 (22-29) mmol/L Anion Gap 14 (12-20) BUN 18 H (9-16) mg/dL Creatinine 0.69 (0.5-1.4) mg/dL Estim Creat Clear Calc 104.5 Estimated GFR > 60 Random Glucose 144 H (60-115) mg/dL Lactic Acid 2.1 H* (0.5-2.0) mmol/L Lactic Acid F/U @ 2Hr (0.5-2.0) mmol/L Calcium 9.1 (8.4-10.2) mg/dL Total Bilirubin 0.3 (0.0-1.0) mg/dL AST 19 (5-37) U/L ALT 11 (0-40) U/L Alkaline Phosphatase 93 (39-117) U/L Troponin I High Sens < 2.7 (<3.5-35.0) ng/L C-Reactive Protein 1.32 H (< or = 0.50) mg/dL Total Protein 6.8 (6.5-8.0) g/dL Albumin 4.0 (3.5-5.0) g/dL Urine Color Urine Appearance Urine pH (5.0-9.0) Ur Specific [place] (1.005-1.025) Urine Protein (Neg-Trace) mg/dL Urine Glucose (UA) (Negative) mg/dL Urine Ketones (Negative) mg/dL Urine Blood (Negative) Urine Nitrite (Negative) Ur Leukocyte Esterase (Negative) Influenza Type A (PCR) NEGATIVE (Negative) Influenza Type B (PCR) NEGATIVE (Negative) RSV RNA Qual (PCR) NEGATIVE (Negative) SARS-CoV-2 RNA (RT-PCR) NEGATIVE (Negative) 04/25/24 04/25/24 Range/Units 14:51 14:53 WBC (4.8-10.8) X10*3/uL RBC (4.60-5.80) X10*6/uL Hgb (14.0-18.0) g/dl Hct (42.0-52.0) % MCV (80.0-98.0) fL MCH (27.0-33.0) pg MCHC (31.0-36.0) g/dl RDW (11.0-16.0) % Plt Count (160-400) X10*3/uL MPV (9.4-12.4) fL Immature Gran % (Auto) (0.0-0.4) % Neut % (Auto) (45-73) % Lymph % (Auto) (20-40) % [place] % (Auto) (2-11) % Eos % (Auto) (0-4) % Baso % (Auto) (0-2) % Lymph # (Auto) (1.2-4.9) X10*3/uL [place] # (Auto) (0.1-1.2) X10*3/uL Eos # (Auto) (0.0-0.4) X10*3/uL Baso # (Auto) (0.0-0.2) X10*3/uL Abs Immat Gran (auto) (0.00-0.03) X10*3/uL Absolute Neuts (auto) (2.0-8.3) x10*3/uL Absolute Nucleated RBC (0.0-0.012) X10*3/uL Nucleated RBC % (auto) (0.0-0.2) /100WBC ESR (0-15) MM/HR PT (10.9-12.4) SEC INR (0.9-1.1) APTT (26.0-36.8) SEC Sodium (135-145) mmol/L Potassium (3.3-5.1) mmol/L Chloride (96-108) mmol/L Carbon Dioxide (22-29) mmol/L Anion Gap (12-20) BUN (9-16) mg/dL Creatinine (0.5-1.4) mg/dL Estim Creat Clear Calc Estimated GFR Random Glucose (60-115) mg/dL Lactic Acid (0.5-2.0) mmol/L Lactic Acid F/U @ 2Hr 1.0 (0.5-2.0) mmol/L Calcium (8.4-10.2) mg/dL Total Bilirubin (0.0-1.0) mg/dL AST (5-37) U/L ALT (0-40) U/L Alkaline Phosphatase (39-117) U/L Troponin I High Sens (<3.5-35.0) ng/L C-Reactive Protein (< or = 0.50) mg/dL Total Protein (6.5-8.0) g/dL Albumin (3.5-5.0) g/dL Urine Color Dark Yellow Urine Appearance Clear Urine pH 5.5 (5.0-9.0) Ur Specific [place] 1.025 (1.005-1.025) Urine Protein Negative (Neg-Trace) mg/dL Urine Glucose (UA) Negative (Negative) mg/dL Urine Ketones Negative (Negative) mg/dL Urine Blood Negative (Negative) Urine Nitrite Negative (Negative) Ur Leukocyte Esterase Negative (Negative) Influenza Type A (PCR) (Negative) Influenza Type B (PCR) (Negative) RSV RNA Qual (PCR) (Negative) SARS-CoV-2 RNA (RT-PCR) (Negative) Independent Interpretation I performed an independent interpretation of an: EKG and Plain X-Ray (normal ) Interpretation: Rate: 60 Rhythm: a paced [place]: normal Normal P waves. Normal WOO. Normal QRS complex. ST T wave : no [id number], inverted t waves V1 qTC: 434 prior studies: no acute ischemia The study has been interpreted contemporaneously by me. . Radiology Impression Discussion of test interpretation with radiology: I have reviewed the radiologist's reading. External Record Review External record reviewed: Inpatient record and Outpatient record Discharge Plan Discharge Clinical Impression: Contact dermatitis Qualifiers: Contact dermatitis type: allergic Contact dermatitis trigger: adhesive Q ualified Code(s): L23.1 - Allergic contact dermatitis due to adhesives Patient Disposition: Home, Self-Care Instructions: Contact Dermatitis (ED) Additional Instructions: normal urine negative covid/flu/rsv no pneumonia area appears irritated from the adhesive please return for worsening pain, swelling, drainage, redness return for fevers over 100.4 Prescriptions: No Action hyoscyamine sulfate 0.125 mg tablet,disintegrating 0.125 mg PO BID-QID PRN (Reason: dyspepsia) Qty: 30 0RF nitroglycerin [Nitrostat] 0.4 mg tablet, sublingual 0.4 mg sublingual Q5M PRN (Reason: chest pain) Qty: 25 2RF Rx Instructions: Do not exceed 3 doses per chest pain episode amlodipine 10 mg tablet 10 mg PO DAILY Qty: 90 3RF metoprolol tartrate 100 mg tablet See Rx Instructions .ROUTE .COMPLEX Qty: 180 3RF Dose Instruction: TAKE 1 TABLET BY MOUTH TWICE DAILY IN THE MORNING AND IN THE EVENING Rx Instructions: TAKE 1 TABLET BY MOUTH TWICE DAILY IN THE MORNING AND IN THE EVENING esomeprazole magnesium 40 mg capsule,delayed release(DR/EC) 40 mg PO QAM Qty: 30 3RF isosorbide mononitrate 60 mg tablet extended release 24 hr 60 mg PO DAILY Qty: 90 3RF rosuvastatin [Crestor] 40 mg tablet 40 mg PO BEDTIME oxycodone 10 mg Tablet 10 mg PO Q5H PRN (Reason: Moderate Pain (Scale Score 5-6)) divalproex [Depakote ER] 250 mg tablet extended release 24 hr 250 mg PO BEDTIME ranolazine 1,000 mg tablet extended release 12 hr 1,000 mg PO BID ondansetron 4 mg tablet,disintegrating 4 mg PO Q8H PRN (Reason: nausea and vomiting) Qty: 20 0RF ezetimibe [Zetia] 10 mg tablet 10 mg PO DAILY multivitamin [Daily Vitamin Formula] Tablet 1 tab PO DAILY lisinopril 5 mg tablet 5 mg PO DAILY pantoprazole 40 mg tablet,delayed release (DR/EC) 40 mg PO mesalamine [Apriso] 0.375 gram capsule,extended release 24hr 1.5 g PO QAM Qty: 120 0RF Eliquis 5 mg tablet 5 mg PO BID 90 Days Qty: 180 3RF Interventions: ED Discharge Assessment Last Done: 04/25/24 15:36 Discharge Date/Time: 04/25/24 15:36 Print Language: Turkish
[2024-04-25 12:41] LABS: MANUAL DIFF FLAG NO
[2024-04-25 12:43] LABS: Basophils Absolute Auto 0.1 X10*3/uL (0.0-0.2); Basophils Percent Auto 1.1 % (0-2); Eosinophils Absolute Auto 0.5 X10*3/uL (0.0-0.4); Eosinophils Percent Auto 5.3 % (0-4); Hematocrit 40.1 % (42.0-52.0); Hemoglobin 13.6 g/dl (14.0-18.0); Imm Gran Abs Auto 0.04 X10*3/uL (0.00-0.03); Imm Gran Pct Auto 0.4 % (0.0-0.4); Lymphocytes Absolute Auto 2.6 X10*3/uL (1.2-4.9); Mean Corpuscular HGB Conc 33.9 g/dl (31.0-36.0); Mean Corpuscular Hemoglobin 30.6 pg (27.0-33.0); Mean Corpuscular Volume 90.1 fL (80.0-98.0); Mean Platelet Volume 8.4 fL (9.4-12.4); Monocytes Absolute Auto 0.7 X10*3/uL (0.1-1.2); Monocytes Percent Auto 7.8 % (2-11); Neutrophils Absolute Auto 5.5 x10*3/uL (2.0-8.3); Neutrophils Percent Auto 58.4 % (45-73); Platelet Count 301 X10*3/uL (160-400); Red Blood Count 4.45 X10*6/uL (4.60-5.80); White Blood Count 9.4 X10*3/uL (4.8-10.8)
[2024-04-25 12:48] LABS: INTERNATIONAL NORM RATIO 0.9 (0.9-1.1); Prothrombin Time 10.9 SEC (10.9-12.4)
[2024-04-25 12:51] LABS: Partial Thromboplastin Time 36.7 SEC (26.0-36.8)
[2024-04-25 12:57] LABS: Alanine Aminotransferase 11 U/L (0-40); Alkaline Phosphatase 93 U/L (39-117); Anion Gap 14 (12-20); Aspartate Amino Transferase 19 U/L (5-37); Bilirubin Total 0.3 mg/dL (0.0-1.0); Blood Urea Nitrogen 18 mg/dL (9-16); Calcium 9.1 mg/dL (8.4-10.2); Carbon Dioxide 24 mmol/L (22-29); Chloride 103 mmol/L (96-108); Creatinine Clr Calc Pharmacy 104.5; Estimated Glomerular Filt Rate > 60; Glucose Random 144 mg/dL (60-115); Potassium 4.2 mmol/L (3.3-5.1); Sodium 137 mmol/L (135-145); Total Protein 6.8 g/dL (6.5-8.0)
[2024-04-25 13:01] LABS: Lactic Acid 2.1 mmol/L (0.5-2.0)
[2024-04-25 13:05] LABS: Troponin-I High Sensitivity < 2.7 ng/L (<3.5-35.0)
[2024-04-25 13:18] LABS: C Reactive Protein 1.32 mg/dL (< or = 0.50)
[2024-04-25] MEDS: 0.9 % Sodium Chloride 500 ML IV (13:22)
[2024-04-25 13:45] LABS: Erythrocyte Sedimentation Rate 16 MM/HR (0-15)
[2024-04-25 14:00] VITALS: BP 92/67; PULSE 60; RESP 18; TEMP 36.8; O2SAT 95
[2024-04-25 14:39] LABS: Reflex Lactate? Lactic Acid Added
[2024-04-25 15:01] LABS: Appearance Urine Clear; Color Urine Dark Yellow; Glucose Urine UA Negative (Negative); Leukocyte Esterase Urine Negative (Negative); Nitrite Urine Negative (Negative); PH 5.5 (5.0-9.0); Specific Gravity - Urine 1.025 (1.005-1.025); Urine Blood Negative (Negative); Urine Ketones Negative (Negative); Urine Protein Negative (Neg-Trace)
[2024-04-25 15:03] VITALS: BP 99/57
[2024-04-25 15:03] LABS: Influenza A PCR NEGATIVE (Negative); Influenza B PCR NEGATIVE (Negative); Resp Syncy Virus RNA Qual PCR NEGATIVE (Negative); SARS COV2 PCR INHOUSE NEGATIVE (Negative)
[2024-04-25 15:16] VITALS: BP 108/68; PULSE 60
[2024-04-25 15:36] VITALS: BP 108/68; PULSE 60; RESP 18; TEMP 36.7; O2SAT 98
--- OUTSIDE RECORDS SUMMARY | 2024-04-30 12:40 | XMS_ITS | Continuity of Care Document ---
Author Organization [facility] ter Address [address] [place] [address]- Care Team Providers Care Attendant Arcade Name Role Phone Name Memo ARREDONDO Primary Care Physician Encounter [facility] Date(s): 04/19/24 - 04/19/[address] [address] Discharge Disposition: A-D/C Home Attending Physician: Jalen Gallardo DO Admitting Physician: Jalen Gallardo DO Referring Physician: Jalen Gallardo DO Allergies, Adverse Reactions, Alerts Substance Reaction Severity [...] Maintenance, 11/04/19 14:53:00 EDT,Route to Pharmacy Electronically, [facility], 181, cm, 11/04/19 13:39:00 [...] opioid drug. Start Date: 07/10/21 Status: Ordered Imdur ER 0 Refills, Maintenance, 04/19/24 7:28:00 EST, Partial fill upon patient request if the prescriptionis for a schedule II opioid drug. 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 per [facility] Vital Signs Most recent to oldest [Reference Range]: 1 2 3 Height 180 cm (04/19/24 6:30 AM) Weight 90.8 kg (04/19/24 6:30 AM) Oxygen Saturation [94-100 %] 84 % *L* (04/19/24 12:15 PM) 97 % (04/19/24 11:15 AM) 99 % (04/19/24 10:30 AM) Pulse Rate [55-90 bpm] 60 bpm (04/19/24 6:30 AM) Body Mass Index [18.5-24.99 kg/m2] 28.02 kg/m2 *H* (04/19/24 6:30 AM) Blood Pressure [90-138/55-84 mm Hg] 155/89mm Hg *H* (04/19/24 12:15 PM) 143/86mm Hg *H* (04/19/24 11:15 AM) 157/92mm Hg *H* (04/19/24 10:30 AM) Respiratory Rate [16-30 br/min] 15 br/min *L* (04/19/24 12:15 PM) 17 br/min (04/19/24 11:15 AM) 15 br/min *L* (04/19/24 10:30 AM) Temperature [96.8-100.4 DegF] 97.5 DegF (04/19/24 6:30 AM) Mode of Delivery (Oxygen) Room air (04/19/24 6:30 AM) Blood pressure sites Arm, right (04/19/24 6:30 AM) Temperature Route Temporal (04/19/24 6:30 AM) Dry Weight 90.8 kg (04/19/24 6:30 AM) Social History Social History Type Response Smoking Status Current some day smo ker; Type: Cigarettes; Other: 3 cigarettes per week; entered on: 04/02/18 Sex Note * Event Display: Hemodynamic Procedure Report Authored Date: [id number] * Anali Maldonado RN: PERFORM Event Display: Discharge/Transfer Note Hospital Authored Date: [id number] Nursing Discharge Note Entered On: 04/19/2024 13:49 EST Performed On: 04/19/2024 13:49 EST by Anali Maldonado RN Nursing Discharge Note 2 Discharge Time : 04/19/2024 12:40 EST Discharge Level of Care at Discharge : Home/Fpc/Foster Care Patient Left Unit Via : Wheelchair Patient Accompanied Off Unit with : Responsible adult DC Instructions Provided & Signed by Pt : Yes Patient Understands D/C Instructions : Yes Patient Instructions Discharge Signed : Yes Did Pt have Specialty Bed or Wound Vac : No Anali Maldonado RN - 04/19/2024 13:49 EST * Anali Maldonado RN: PERFORM Event Display: Patient Education/Instruction Authored Date: [id number] Inpatient Adult Discharge Instructions. [address] [address] Name: ALIZE JARA : 1955?? Visit: 04/19/2024 06:08?? Current Date: 04/19/2024 10:39 ?? Account: [id number]?? Inpatient Adult Discharge Instructions We would like [...] and their families. Surveys are administered by [employer]. ?? If further treatment with your primary care physician or another doctor is recommended, it is important for you to keep the appointment. Call your primary care physician or return to the Emergency Department immediately if your condition worsens, fails to improve, or new symptoms develop. If you need to find a doctor, you can call [facility] Link for a referral at [phone] or toll free at [phone]) or log in to [email or web address].. ?? [facility], in keeping with [facility] guidance, no longer requires face [...] a health care kateryna of your choosing. Jingit is a website that allows you to securely view your medical information including your hospital discharge summary, office visit summaries, medications and follow-up visits. You can also request appointments, renew medications, and request access to your medical information using a health care kateryna of your choosing, or just ask a question. You can enroll at [email or web address] or register during your next office visit. You have been discharged from [facility], Patient Care Unit: CARE??. If you have any questions regarding these instructions, including results of studies pending, afteryou leave, please call us and we will be happy to assist you 30/12. [facility] Nursing Unit Direct Phone Number, for 30/12 contact and results of studies pending CARE [address] [place] [address] Your Care Team Attending Physician Jalen Gallardo DO?? Consulting Providers Jalen Gallardo DO?? Discharging Providers Rl Durbin MD Tests Performed Below is a partial list of the tests performed during your hospitalization. You may have had other tests and procedures not included in this list. Please discuss all test results with your provider. BUN Creatinine Type and Screen BUN?? Creatinine?? Type and Screen?? Primary Care Provider Name Memo ARREDONDO? Advance Directive Health Care Proxy on File No Discharge Vitals Temperature: 97.5 DegF Height: 180 cm Pulse Rate: 60 bpm Weight: 90.8 kg Respiratory Rate:??13 br/min??Low Body Mass Index:??28.02 kg/m2??High Systolic Blood Pressure:??163 mm Hg??High Body surface area: 2.13 Diastolic Blood Pressure:??86 mm Hg??High ?? Oxygen Saturation: 98 % ?? Studies Pending All studies ordered during this hospital stay have been completed unless listed below. Please discuss all pending results with your provider listed above in these instructions. ?? No incomplete studies found?? What to do next Instructions From Your Doctor ?? Orders?? Unit Discharge Criteria Met, ??04/19/24 8:50:00 EST?? Scheduled Follow-Up Appointments Friday 9:30 AM EST ?? Where[facility] [address] [place] [address]- Status: Pending Discharge Medications ALIZE JARA :1955 Visit Date:04/19/2024 Medications: Please continue your medications until treatment is completed or stopped by your provider. Medications not listed below should be discontinued. Discuss any questions related to medications with your provider. What How Much When Instructions Next Dose Unchanged Amlodipine (amlodipine 10 mg oral tablet) 1 tab(s) Oral Daily Duration: 30 Days Resume Unchanged apixaban (Eliquis 5 mg oral tablet) 1 tab(s) Oral Twice a day Resume Unchanged Aspirin (aspirin 81 mg oral delayed release tablet) 81 Milligram Oral Daily Duration: 30 Days Resume Unchanged Divalproex Sodium (divalproex sodium 250 mg oral tablet, extended release) 1 tab(s) Oral Daily Resume Unchanged Ezetimibe (Zetia 10 mg oral tablet) 1 tab(s) Oral Daily Resume Unchanged Isosorbide Mononitrate (Imdur ER) Resume Unchanged levETIRAcetam (Spritam 750 mg oral tablet, dispersible) DISSOLVE 1 TABLET BY MOUTH TWICE DAILY ?? Resume Unchanged Lisinopril (lisinopril 20 mg oral tablet) 0.5 tab(s) Oral Daily Resume Unchanged Metoprolol (Metoprolol Tartrate 50 mg oral tablet) 1 tab(s) Oral Twice a day with meals ?? Resume Unchanged Multivitamin Oral Daily Resume Unchanged Nitroglycerin (nitroglycerin 0.4 mg sublingual tablet) 1 tab(s) Sublingual Every 5 minutes Resume Unchanged Oxycodone (oxyCODONE 5 mg oral tablet) 2 tab(s) Oral Every 6 hours as needed for Pain , Moderate Resume Unchanged Pantoprazole (pantoprazole 40 mg oral delayed release tablet) 1 tab(s) Oral Daily Resume Unchanged ranolazine (Ranexa 1000 mg oral tablet, extended release) 1 tab(s) Oral Twice a day Resume Unchanged Rosuvastatin (rosuvastatin 40 mg oral tablet) 40 Milligram Oral Daily at Bedtime Duration: 30 Days Resume Prescription Given During Visit No new medications prescribed at time of discharge.?? Laboratory Results Below is a partial list of the most recent Laboratory test results done prior to this discharge. You may have had other tests and procedures not included in this list. Please discuss all test resultswith your provider. Est Creatinine Clearance - 97.12 mL/min (04/19/2024) BUN (04/19/2024) ???BUN - 17 mg/dL Creatinine (04/19/2024) ???Creatinine-Blood - 0.74 mg/dL???Estimated GFR Creatinine - 97 ML/MIN/1.73 M2 Type and Screen (04/19/2024) ???Blood Type - O Positive???Antibody Screen - Negative You will be contacted within 72 hours with your results. Allergies (NKA means No Known Allergies) Bee [...] Educational Leaflet Providered with your Discharge Instructions. mGenerator Ignite Patient Education - Discharge Instructions for Pacemaker Implantation?? WebShopText Ignite Patient Education - Anesthesia: Monitored Anesthesia Care (MAC)?? Valuables and Belongings I fully understand and agree that [facility] accepts no responsibility for all my [...] patient Date for Pt to Sign Valuables/Belongings: 04/19/24 09:23:00 ?? Valuables & Belongings ?? Clothes Electronic devices Jewelry Monetary Items Personal devices Miscellaneous Medications (Valuables) Valuables at Bedside Jacket, Pants, Shirt, Shoes, Undergarments Cell phone ?? Wallet Glasses ? Valuables Sent Home ? Valuables Sent to Security ? Valuables Sent to Locker ? Other Discharge Information ? Pulmonary Rehab Status?? Pulmonary Rehab Discharge Status?? Respiratory Rate:??13 br/min??Low ? Common Emergency Awareness Tips IS IT [...] are strongly encouraged to quit. Please call [facility] Link at [phone] or [phone]) or log in to [email or web address] for referrals to smoking cessation programs. ?? 369 Suicide & Crisis Lifeline is available 30/12 if you or someone you know needs to find a reason to keep living. By calling 443 you'll be connected to a skilled, trained counselor at a crisis center in your area. INPATIENT DISCHARGE INSTRUCTIONS SIGNATURE PAGE ALIZE JARA Location:[facility] Registration Date and Time:04/19/2024 06:08 [facility] Primary Care Physician: Memo Alex MD, Attending Physician: Jalen Gallardo DO, I ALIZE JARA, have received the above patient education materials/instructions and have verbalized understanding. If ambulance or transport services are being used I further acknowledge being given a choice of service. ?? If you need to contact me, please call me at this number: . Patient/Head Of Conservation Name: Patient/Head Of Conservation Signature: Relationship to Patient: Witness Name/Signature: Date: * Anali Maldonado RN: PERFORM Event Display: Patient Education Leaflets Authored Date: [id number] Discharge Instructions for Pacemaker Implantation ?? [address] Discharge Instructions for Pacemaker Implantation You have had a procedure to insert a pacemaker. Once inside your body, this small electronic devicehelps keep your heart from beating too slowly. It can help you feel better and have more energy. Asyou recover, follow all of the instructions you are given, including those below. Activity ??? Follow the instructions you are given about limiting your activity. ??? If you are fitted with an arm sling, keep your arm in the sling for as long as your healthcare provider tells you to. Most often, the sling will be removed the next day. But you may be told to sleep with it on for a period to prevent damage to the pacemaker while it's healing. ??? Don't raise your arm on the incision side above shoulder level or stretch your arm behind your back for as long as directed by your healthcare provider. This gives the leads a chance to secure themselves inside your heart. ??? Don'tdrive until your healthcare provider says it's OK. Have someone drive you home after the procedure.??? Ask your healthcare provider when you can expect to return to work. Depending on the type of work you do, you may have limits until your healthcare provider says it's OK for unrestricted activity. ??? You can still exercise. It's good for your body and your heart. Talk with your healthcare provider about an exercise plan and the types of exercise to limit the risk of damaging your pacemaker. ?? Other precautions ??? Follow your healthcare provider's directions carefully for wound care. If there is a dressing, ask whether you should remove it or keep it on until your next visit. Never put any creams, lotions, or products like peroxide on an incision unless your healthcare provider tells you to. Don't get the incision wet until your provider says it's OK. ??? Check your incision for signsof infection. These include redness, swelling, drainage, and warmth. Do this for 7 days, or as advised by your healthcare provider. ??? Before you have any treatment, tell all healthcare providers, including your dentist, that you have a pacemaker. ??? Carry your pacemaker ID card with you at all times. The card has information about your pacemaker. You can show this card if your pacemaker sets off a metal detector. Also show it so you don't need to be screened with a hand-held security wand. ??? Be careful when using cell phones and other electronic devices. Keep them at least 6 inches away from your pacemaker. It's safest to hold all cell phones to the ear farthest from your pacemaker or use the speaker mode setting. Don???t carry your phone or electronic device in your chest pocket, over the pacemaker. Experts advise carrying your cell phone and other electronics in a pocket or bag below your waist. Most cell phones and electronic devices don't interfere with pacemakers. But some cell phones and electronic devices, such as smartwatches and headphones, use powerful magnets for wireless charging that may interfere with how your pacemaker works. The magnet used for charging or other magnet accessories can also interfere with how your pacemaker works. These devices should be keptat least 12 inches away from your pacemaker when wirelessly charging or stored. Follow any other instructions given to you by your healthcare provider and from the maker of your pacemaker. ??? Stay away from strong magnets. An example is handheld security wands. Most pacemakers are now safe to use with MRI scanners. Ask your healthcare provider if you have such a pacemaker. ??? Stay away from strong electrical marcial. Examples are those made by radio transmitting towers, ham radios, and heavy-duty electrical equipment. ??? Don't lean over the open laguna of a running car. A running engine creates an electrical field. Most household and yard appliances will not cause any problems. If you useany large power tools, such as an industrial data center architect, talk with your healthcare provider. ??? Follow any other instructions from your healthcare provider about other devices and procedures to stayaway from. ?? Follow-up care ??? 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 Call and make an appointment as soon as you get home. ??? Make regular follow-up appointments with your healthcare provider. They will check the pacemaker to make sure it's working properly. ??? Plan on having periodic checkups withyour healthcare provider to assess the battery life of your pacemaker. Depending on your device andhow much your body uses the pacing functions of the pacemaker, you will need a new device generatorimplanted at some point. This is generally about every 5 to 7 years. ??? Some pacemakers have a built-in antenna that can send information such as trouble alerts over the Internet to your healthcare sumeet. Ask your healthcare provider if your pacemaker is capable of remote monitoring. ?? When to call your healthcare provider Call your healthcare provider right away if you have any of these: ??? Dizziness ??? Lack of energy??? Twitching chest muscles ??? Rapid pulse or pounding heartbeat ??? Shortness of breath ??? Pain around your pacemaker ??? Fever above 100.4?? F (38?? C) or higher, or as directed by your healthcare provider ??? Other signs of infection such as redness, swelling, drainage, or warmth at the incision site ??? Your incision is not healing, or your incision separates or opens ??? Hiccups that won'tstop ??? Redness, severe swelling, drainage, worsening pain, bleeding, or warmth at the incision site ??? Your pacemaker generator feels loose or like it is wiggling in the pocket under the skin ?? Call 911 Call 911 if you have: ??? Chest pain ??? Trouble breathing ??? Fainting ?? Last Reviewed Date: 2021 ?? [employer]. All rights reserved. This information is not intended as a substitute for professional medical care. Always follow your healthcare professional's instructions. ?? * Anali Maldonado RN: PERFORM Event Display: Patient Education Leaflets Authored Date: [id number] Anesthesia: Monitored Anesthesia Care (MAC) ?? [address] Anesthesia: Monitored Anesthesia Care (MAC) You???re going to have surgery. During surgery, you???ll be given medicine called anesthesia. This will keep you comfortable and pain-free. Your surgeon will use monitored anesthesia care (MAC). Thissheet tells you more about this type of anesthesia. What is monitored anesthesia care? MAC keeps you very drowsy during surgery. You may be awake, but you likely won't remember much. Andyou won???t feel pain. With MAC, medicines are given through an IV (intravenous) line into a vein??in your arm or hand. A local anesthetic will also be injected into the skin and muscle around the surgical site to numb it. The anesthesia provider monitors you during the procedure. They check your heart rate and rhythm, blood pressure, and blood oxygen level. ?? What to expect during your procedure You'll likely have: ??? A pulse oximeter. This is a small device put on the end of your finger. This measures your blood oxygen level. ??? Electrocardiography leads (electrodes). These are sticky pads put on your chest. They attach to wires. These lead to a device that records your heart rate and rhythm. ??? Medicines given through an IV. These relax you and prevent pain. You may be awake or sleep lightly. If you have local anesthetic, it's injected directly into your skin. ??? A face mask. This is to give you oxygen. This may be done if needed. ?? Possible risks MAC has some risks. These include: ??? Breathing problems ??? Upset stomach (nausea) and vomiting ??? Allergic reaction to the anesthetic? Anesthesia safety Tips for anesthesia safety include:? Follow all instructions for not eating or drinking before your procedure. ??? Tell your healthcare provider all prescription and [id number] medicines you take. Tell them if you use any anti-inflammatory medicine or blood thinners. This includes aspirin. Tell them if you take any vitamins,herbs, or other supplements. ??? Have an adult family member or friend drive you home after the procedure. For the first 24 hours after your surgery: ??? Don't drive or use heavy equipment. ??? Don't make important decisions or sign documents. ??? Don't drink alcohol. ??? Have someone stay with you, if possible. They can watch for problems and help keep you safe. ?? Last Reviewed Date: 2023 ?? 4325-0244 [employer]. All rights reserved. This information is not intended as a substitute for professional medical care. Always follow your healthcare professional's instructions. ?? Patient Care team information Care Team Personnel Name: Nia Ramirez RN Position: [facility] RN Member Role: Primary Care Nurse Name: Memo Alex MD Position: [facility] Outreach Member Role: PCP Address: Address: [address] [place] [address]- Name: Veronique Reese RN Position: [facility] RN Member Role: Primary Care Nurse Name: Chitra Mcdonald RN Position: [facility] KATE Nurse Member Role: Primary Care Nurse Name: Fern Cerrato RN Position: [facility] RN Member Role: Primary Care Nurse Care Team Related Persons Name: GE BRASWELL Address: home [address] [place] [address] Name: PATRICIA OLIVAREZ Address: home [address] [place] [address] Name: IVAN GILLIS
--- OUTSIDE RECORDS SUMMARY | 2024-04-30 12:41 | XMS_ITS ---
Author Organization [facility] Address [address] [place] [id number] Care Team Providers Care Estimator Lumber Name Role Phone Name Memo ARREDONDO Primary Care Provider Rolly Manzanares Unavailable [phone] Encounters Encounter Location Date Provider Diagnosis [address] [id number] 09/30/2023 Rolly Herman Plan Of Treatment No Information Progress Notes * Myles JARADOB:1955 (69 yo M)Acc No.[id number]:09/30/2023 Progress Note Patient:Myles WHITING Provider:?Rolly Herman DPM :1955???Age:68 Y???Sex:Male Phillip e:09/30/2023 Address:[address] [place], [place] [id number] Pcp:Memo Alex MD Subjective: * Chief Complaints: * ??? * Medical History:? Objective: * Vitals:? Assessment: Plan: * Treatment: * Images: * The named appointment provid er may or may not be the originator of this progress note, and it is not deemed complete until electronically signed by the appointment provider. Sign off status: Pending * Provider:?Rolly Herman DPM Date:?2023 Generated for Printi ng/Faethelg/eTransmitting on:?04/30/2024 12:40 PM EST
--- OUTSIDE RECORDS SUMMARY | 2024-04-30 12:41 | XMS_ITS ---
[facility] Organization [facility] Address [address] [place] [address] Care Team Providers Care Obiee Consultant Name Role Phone Name Memo ARREDONDO Primary Care Provider Rolly Manzanares Unavailable [phone] Allergies Allergen (clinical drug ingredient) Drug/Non Drug Allergy documented on EMR Reaction Allergy Type Onset Date Status indomethacin Indocin Unknown Drug Allergy Acti ve enoxaparin Lovenox Unknown Drug Allergy Active tramadol Ultram Unknown Drug Allergy Active Bee Sting Unknown Allergy Active REASON FOR VISIT At Risk Footcare, Painful Nail(s) aggrevated by shoes and causing difficulty standing/walking. Medications Medication SIG (Take, Route, Frequency, Duration) Notes Start Date End Date Status Pantoprazole Sodium 40 MG 1 tablet Orall y Once a day for 30 day(s) Active Metoprolol Tartrate 50 MG 1 tablet with food Orally Twice a day for 30 day(s) Active Nitroglycerin 0.4 MG Sublingual for 30 Active Multivitamin - 1 tablet Orally Once a day for 30 day(s) Active oxyCODONE [...] 30 day(s) Active eliquis 5 mg Active Lisinopril 10 MG 1 tablet Orally Once a day for 30 day(s) Active Aspirin 81 MG 1 tablet Orally Once a day for 30 day(s) Active Ranolazine ER 1000 MG 1 tablet Orally Tw ice a day for 30 day(s) Active Antibiotic Not-Takin g Rosuvastatin Calcium 40 MG 1 tablet Oral ly Once a day for 30 day(s) Active Social History Tobacco Use: Social History Observation Description Date Details (start date - stop date) Former Smoker NA - NA Tobacco Use/Smoking Question Answer Notes Are you a: former smoker Additional Findings: Tobacco Non-User Current no n-smoker Alcohol Screen Question Answer Notes Did you have a drink containing alcohol in the p ast year? No Points 0 Interpretation Negative Tobacco use other than smoking: Question Answer Notes Are you an other tobacco user? No Vital Signs Height 5 ft 11 in in 07/22/2023 Weight 210 lbs 07/22/2023 BMI 29.29 kg/m2 07/22/2023 Blood pressure systolic 120 mm Hg 07/22/19 24 Blood pressure diastolic 80 mm Hg 024 Procedures Procedure Date Ordered Date Performed Result Body Sit e 59870-CGKCMMF NAIL, 6 OR MORE 07/22/2023 N/A 44732-TKFV SKIN LESIONS, 2 TO 4 07/22/2023 N/A Encounters Encounter Location Date Provider Diagnosis [facility] [address] [place] [address] 07/22/2023 Rolly Herman Atherosclerosis of [place] artery of both lower extremities, with unspecified presence of clinical manifestation I70.203 ; Onychomycosis B35.1 ; Pain of toe of right foot M79.674 and Pain of toe of left foot M79.675 Assessments Encounter Date Diagnosis (ICD Code) Assessment Notes Treat ment Notes Treatment Clinical Notes 07/22/2023 Atherosclerosis of [place] artery of both lower extremities, with unspecified presence of clinical manifestation (ICD-10 - I70.203) 07/22/2023 Onychomycosis (ICD-1 0 - B35.1) 07/22/2023 Pain of toe of right foot (ICD-10 - M79.674) 07/22/2023 Pain of toe of left foot (ICD-10 - M79.675) Plan Of Treatment Pending Test Test Name Order Date 44150-ZMJPXCC NAIL, 6 OR MORE 07/22/2023 73149-ZQFQ SKIN LESIONS, 2 TO 4 07/22/19 24 Next Appt Details Follow Up: prn, Reason: Procedure Notes * Category Sub-Category Detail Notes Debride Nail 6-10 Nail debridement Nail debridem ent performed extensively to reduce/remove overall nail length, girth, thickness, subungual debris, and necrotic tissue, by manual and electrical means through the use of a nail nipper and/or dremel, to more viable healthy nail plate or bed tissue 1-5. Silver nitrate used for any petechial bleeding as necessary. Patient chooses, no pharmaceutical tx (78173) Keratoma Treatment Parring or Cutting o f Benign Hyperkeratotic Lesion(s) 53843 (2-4 Lesions) - The Benign hyperkeratotic lesions, as described above were pared, and/or cut utilizing a sterile #15 blade, tissue nippers, and/or dremel, Q8 Progress Notes * Myles JARADOB:1955 (68 yo M)Acc No.[id number]:07/22/2023 Progress Note Patient:?Myles Jara Provider:?Rolly Herman DPM :1955???Age:68 Y???Sex:Male Phillip e:07/22/2023 Address:[address] [place], [place] [address] Pcp:Memo Alex MD Subjective: * Chief Complaints: * ???At Risk FootcarePainful N ail(s) aggrevated by shoes and causing difficulty standing/walking. * HPI: ???At Risk footcare:?Pt States Last PCP Visit:?Date?06/18/2023 * ROS:?General/Constitutional:?Nausea?denies.?Vomiting?denies.?Hunger Thirst?denies.?Loss appetite?denies.?Chills?denies.?Fatigue?denies.?Fever?denies.?Night Sweats?denies.?Unexplained weight loss?denies.?Unexplained weight gain?denies.?HEENTM:?Dentures?admits.?Dizziness?denies.?Glasses/contacts?admits.?Retinopathy?de nies.?Blurred/double vision?denies.?TMJ?denies.?Discharge/drainage?denies.?Implants?denies.?Sore throat?denies.?Dental implants?denies.?Hard of hearing ?denies.?Difficulty chewing/swallowing/speaking?denies.?Nose bleeds?denies.?Sore mouth?denies.?Respiratory:?On Oxygen?denies.?Pneumonia/pleurisy?denies.?Bronchitis?denies.?Emphysema?denies.?C oughing?denies.?Cough blood?denies.?Shortness of breath?denies.?Wheezing?denies.?Cardiovascular:?Pacemaker?admits.?MVP?denies.?WPW?denies.?CHF?denies.?Heart attack?admits.?Septal defect?denies.?Rapid beat?denies.?Chest pain ?denies.?Atrial Fib.?denies.?Murmur/Palpitations?denies.?Gastrointestinal:?Hemorrhoids?denies.?Stomach/Abdominal pain?denies.?Dark blood stool?denies.?Irritable bowel ?denies.?Constipation?denies.?Diarrhea?denies.?Hematology:?Swelling?denies.?Clots?denies.?Varicose Veins?denies.?Bruising?admits, on anticoagulants.?Bleeding problem?admits, on anticoagulants.?Genitourinary:?Blood urine?denies.?Frequent/Painfu/urination/bladder control?denies.?Kidney stones?denies.?Infection (UTI)?denies.?Nephropathy?denies.?sex trans dis (STD)?denies.?Prostate?denies.?Musculoskeletal:?Hammertoes?denies.?Bunions?denies.?Back Pain?admits.?Muscle Cramps/ Resting?denies.?Muscle cramps / walking?denies.?Generalized aches and pains?denies.?Weakness?denies.?Integ.:?Daniels?denies.?Scars?denies.?Corns/calluses?admits.?Ingrown nails?admits.?Painful nails?admits.?Open Sores?denies.?Rashes?denies.?Neurologic:?Difficulty sleeping?admits.?Brain disorder?denies.?Numbness?denies.?Balance trouble?denies.?Confusion?denies.?Fainting/blackouts?denies.?Tingling?denies.?Tr emors?admits.? * Medical History:? * Surgical History:?back surge ry x17 left knee replacement hip surgery, right 01/06/2017gall bladder Heart stent DVT x3 left leg tumor cardiac catheterization 01/2020lumbosacral spine surgery 09/04/2015 * Hospitalization/Major Diagno stic Procedure:?Coronary artery disease involving chehalis coronary artery of chehalis heart with unstable angina pectoris Cardiac Cath and Stent C -[facility] Care painful L migel Ingrown[facility] - AFib and choke at sametime- coded 2x CPR done 2 days 06/13/2022 * Family History:?Mother: dece ased.?Father: , diagnosed with Other malignant neoplasm of unspecified site.? * Social History:?Tobacco Use:?Tobacco Use/Smoking?Are you a:?former smoker ?Additional Findings: Tobacco Non-User?Current non-smoker ?Tobacco use other than smoking?Are you an other tobacco user??No ???Drugs/Alcohol:?Drugs?Have you used drugs other than those for medical reasons in the past 12 months??No ?Alcohol Screen?Did you have a drink containing alcohol in the past year??No ?Points?0 ?Interpretation?Negative ???Miscellaneous:?Caffeine: yes, frequency: coffee , 4 cups per day. ?Children: yes, Step. ?Exercise: yes, walking. ?Marital status: . ?Occupation: Disabled. * Medications:?TakingAspirin 8 1 MG Tablet Chewable 1 tablet Orally Once a dayamLODIPine Besylate 10 MG Tablet 1 tablet Orally Once a dayDivalproex Sodium 250 MG Tablet Delayed Release 1 tablet Orally Once a dayeliquis 5 mg Tablet Ezetimibe 10 MG Tablet 1 tablet Orally Once a dayLisinopril 10 MG Tablet 1 tablet Orally Once a dayMetoprolol Tartrate 50 MG Tablet 1 tablet with food Orally Twice a dayMultivitamin - Tablet 1 tablet Orally Once a dayNitroglycerin 0.4 MG Tablet Sublingual Sublingual oxyCODONE HCl 10 MG Tablet 1 tablet as needed Orally every 6 hrsPantoprazole Sodium 40 MG Tablet Delayed Release 1 tablet Orally Once a dayRanolazine ER 1000 MG Tablet Extended Release 12 Hour 1 tablet Orally Twice a dayRosuvastatin Calcium 40 MG Tablet 1 tablet Orally Once a dayTaking Aspirin 81 MG Tablet Chewable 1 tablet Orally Once a dayTaking amLODIPine Besylate 10 MG Tablet 1 tablet Orally Once a dayTaking Divalproex Sodium 250 MG Tablet Delayed Release 1 tablet Orally Once a dayTaking eliquis 5 mg Tablet Taking Ezetimibe 10 MG Tablet 1 tablet Orally Once a dayTaking Lisinopril 10 MG Tablet 1 tablet Orally Once a dayTaking Metoprolol Tartrate 50 MG Tablet 1 tablet with food Orally Twice a dayTaking Multivitamin - Tablet 1 tablet Orally Once a dayTaking Nitroglycerin 0.4 MG Tablet Sublingual Sublingual Taking oxyCODONE HCl 10 MG Tablet 1 tablet as needed Orally every 6 hrsTaking Pantoprazole Sodium 40 MG Tablet Delayed Release 1 tablet Orally Once a dayTaking Ranolazine ER 1000 MG Tablet Extended Release 12 Hour 1 tablet Orally Twice a dayTaking Rosuvastatin Calcium 40 MG Tablet 1 tablet Orally Once a dayNot- Taking/PRNAntibiotic Medication List reviewed and reconciled with the patientNot-Taking/PRN Antibiotic Medication List reviewed and reconciled with the patient * Allergies:?Bee StingLovenoxI ndocinUltramyes[Allergies Verified] Objective: * Vitals:?Ht:5 ft 11 in, Wt:21 0, BMI:29.29, Shoe size:9, BP:120/80 mm Hg, Ht-cm: 180.34 cm, Wt-k.25 kg. * Examination: ???Vascular: ?DP PULSES:? 1/4, B/L.?PT PULSES:? 0/4, B/L.?CAPILLARY FILL TIME:? delayed, all digits, B/L.?SKIN TEMPERTURE GRADIENT OF THE LOWER EXTERMITIES:? decreased, cool to cool, proximal to distal, B/L.?HAIR GROWTH/TEXTURE/ELASTICITY/TURGOR:? decreased, B/L.?PIGMENTATION:? mottled, B/L.?EDEMA:?absent, B/L.?CLAUDICATION:?denies, B/L.?REST PAIN:?denies, B/L.?Nails: ?NAILS are:? Elongated, overgrown, dystrophic, lytic, greater than 3mm thick, discolored and friable with crumbly malodorous subungual debris, with pain on palpation, 1-5 B/L.?Dermatologic: ?SKIN FINDINGS:? Skin exam reveals Keratotic lesion(s) located at, SUB MTH (s), 1, B/L, Heel(s), B/L.? Assessment: * Assessment: 1.?Onychomycosis - B35.1?2.? Atherosclerosis of che[place] artery of both lower extremities, with unspecified presence of clinical manifestation - I70.203?3.?Pain of toe of right foot - M79.674?4.?Pain of toe of left foot - M79.675? Plan: * Treatment: 2.?Atherosclerosis of chehal[place] artery of both lower extremities, with unspecified presence of clinical manifestation?Procedure: 30205-UZDA SKIN LESIONS, 2 TO 4 * Procedures:?Debride Nail 6-10:?Nail debridement?Nail debridement performed extensively to reduce/remove overall nail length, girth, thickness, subungual debris, and necrotic tissue, by manual and electrical means through the use of a nail nipper and/or dremel, to more viable healthy nail plate or bed tissue 1-5. Silver nitrate used for any petechial bleeding as necessary. Patient chooses, no pharmaceutical tx (48236).?Keratoma Treatment:?Parring or Cutting of Benign Hyperkeratotic Lesion(s)?34997 (2-4 Lesions) - The Benign hyperkeratotic lesions, as described above were pared, and/or cut utilizing a sterile #15 blade, tissue nippers, and/or dremel, Q8.? * Procedure Codes:?24977 DEBRI DE NAIL, 6 OR MORE, Modifiers: XS 76050 TRIM SKIN LESIONS, 2 TO 4, Modifiers: XS , Q8 * Follow Up:?prn * Images: * Sign off status: Completed true * Provider:?Rloly Herman DPM Date:?2023 Generated for James hatfield/Jorge Alberto/Robbin on:?04/30/2024 12:40 PM EST History and Physical Notes * HPI (History of Present Illness) Category Sub-Category Detail Notes At Risk footcare Pt States Last PCP Visit: Date: 06/18 Examination Category Sub-Category Detail Notes Dermatologic SKIN FINDINGS: Skin exam reveal s Keratotic lesion(s) located at, SUB MTH (s), 1, B/L, Heel(s), B/L Vascular DP PULSES(B): 1/4, B/L PT PULSES(B): 0/4, B/L CAPILLARY FILL TIME: delayed, all digits , B/L TEMPERTURE GRADIENT(C): decreased, cool to cool, proximal to distal, B/L TROPHIC CONDITION-TEXTURE/ELASTICITY/TURGOR/HAIR GROWTH(B): decreased, B/L EDEMA(C): absent, B/L CLAUDICATION(C): denies, B/L REST PAIN: denies, B/L PIGMENTATION: mottled, B/L Nails NAILS are: Elongated, overg rown, dystrophic, lytic, greater than 3mm thick, discolored and friable with crumbly malodorous subungual debris, with pain on palpation, 1-5 B/L
--- OUTSIDE RECORDS SUMMARY | 2024-04-30 12:41 | XMS_ITS ---
Author Organization [facility] Address [address] [place] [address] Care Team Providers Care Sustainability Project Manager Name Role Phone Name Memo ARREDONDO Primary Care Provider Rolly Manzanares [phone] REASON FOR VISIT cx same day 09/30/23 Encounters Encounter Location Date Provider Diagnosis [facility] [address] [place] [address] 09/30/2023 Rolly Herman Plan Of Treatment No Information Progress Notes * Myles JARADOB:1955 (68 yo M)Acc No.[id number]:09/30/2023 Patient:?TobiMyles davis :1955???Age:68 Y???Sex:Male Address:[address] [place] [address], [place], [address] * true * Date:? Generated for Printi ng/Faethelg/eTransmitting on:?04/30/2024 12:40 PM EST
--- OUTSIDE RECORDS SUMMARY | 2024-04-30 12:41 | XMS_ITS | Patient Health Record ---
Author Organization [facility] Address [address] [place] [address] Care Team Providers Care Marker Machine Name Role Phone Name Memo ARREDONDO Primary Care Provider Rolly Manzanares Unavailable [phone] Allergies Allergen (clinical drug ingredient) Drug/Non Drug Allergy documented on EMR Reaction Allergy Type Onset Date Status indomethacin Indocin Unknown Drug Allergy Acti ve enoxaparin Lovenox Unknown Drug Allergy Active tramadol Ultram Unknown Drug Allergy Active Bee Sting Unknown Allergy Active Reason For Referral No Information Medications Medication SIG (Take, Route, Frequency, Duration) [...] Once a day for 30 day(s) Active Immunizations Vaccine Route Administration Date Status Comme nts COVID-19 Moderna Vaccine Unknown 10/17/2021 Administered 1st 08/04/20 2nd 09/01/20 3rd 05/07/21 Social History Tobacco Use: Social History Observation [...] Are you an other tobacco user? No Problems Problem Type SNOMED Code ICD Code Onset Dates Problem Status W/U Status Risk Notes Problem Atherosclerosis of [place] arteries of the extremities ([id number]) Atherosclerosis of [place] artery of both lower extremities, with unspecified presence of clinical manifestation (I70.203) Active confirmed Vital Signs Blood pressure diastolic 80 mm Hg 07/22/2023 Height 5 ft 11 in in 07/22/2023 Blood pressure systolic 120 mm Hg 07/22/2023 Weight 210 lbs 07/22/2023 BMI 29.29 kg/m2 07/22/2023 Procedures Procedure Date Ordered Date Performed Result Body Sit e 25337-ZOXONNN NAIL, 6 OR MORE 07/22/2023 N/A 52301-ZEUH SKIN LESIONS, 2 TO 4 07/22/2023 N/A Encounters Encounter Location Date Provider Diagnosis [facility] [address] 07/22/2023 Rolly Herman Atherosclerosis of [place] artery of both lower extremities, with unspecified presence of clinical manifestation I70.203 ; Onychomycosis B35.1 ; Pain of toe of right foot M79.674 and Pain of toe of left foot M79.675 [facility] [address] 05/13/2023 Rolly Herman [address] [address] 09/30/2023 Rloly Herman Assessments Encounter Date Diagnosis (ICD Code) Assessment Notes Treat ment Notes Treatment Clinical Notes 07/22/2023 Onychomycosis (ICD-1 0 - B35.1) 07/22/2023 Atherosclerosis of [place] artery of both lower extremities, with unspecified presence of clinical manifestation (ICD-10 - I70.203) 07/22/2023 Pain of toe of right foot (ICD-10 - M79.674) 07/22/2023 Pain of toe of left foot (ICD-10 - M79.675) Plan Of Treatment Pending Test Test Name Order Date X ray : Foot, left 3V 01/23/2022 X ray : Foot, left 3V 11/29/2022 90749-CRYEVGE NAIL, 6 OR MORE 02/25/2023 74464-PGRGEWT NAIL, 6 OR MORE 11/29/2022 77262-VKSYJGU NAIL, 6 OR MORE 07/22/2023 01914-YJZFTYN NAIL, 6 OR MORE 03/05/2022 96395-UHXXTGS NAIL, 6 OR MORE 05/28/2022 25198-LIIDZJT NAIL, 6 OR MORE 08/27/2022 70441-Cqgemeuu Plate 05/28/2022 99687- Debride <25 sq cm 01/23/2022 00540 I&D ABSCESS- SIMPLE,SINGLE 022 11373-RFHH SKIN LESIONS, 2 TO 4 08/28/19 23 30881-RJYN SKIN LESIONS, 2 TO 4 05/28/20 22 22986-FQTM SKIN LESIONS, 2 TO 4 07/22/19 24 88382-HXCO SKIN LESIONS, 2 TO 4 11/30/19 23 84409-FVFB SKIN LESIONS, 2 TO 4 02/26/20 23 Insurance Providers Payer Name Payer Address Payer Phone Subscriber Number Group Number Insured Name Patient Relationship to Insured Coverage Start Date Coverage End Date Medicare National [employer] [address] [place] [address] [id number] Myles Tipton Self - patient is the insured Medical (General) History Medical History History ICD Code Angina Arthritis, [...] spine surgery 09/04/2015 Hospitalization History Reason Date(Month/Year[place] [facility] [place] at sam[place]- coded 2x CPR done 2 days 06/13/2022 [facility] left knee 3 x between 5 weeks 2021 [facility] [place] painful L migel Ingrown? g iven antiboitics 01/08/22 Cardiac Cath and Stent Coronary artery disease invo lving chickaloon coronary artery of chick[place] heart with unstable angina pectoris
--- OUTSIDE RECORDS SUMMARY | 2024-04-30 12:41 | XMS_ITS | Continuity of Care Document ---
Author Organization [facility] Address [address] [place] [address] Care Team Providers Care Building Illuminating Engineer Name Role Phone Name Memo ARREDONDO Primary Care Physician [phone] [place] [facility] [place]14/24 [facility] [address] [place] [address] [place] Allergies, Adverse Reactions, Alerts Substance Reaction Severity [...] Maintenance, 11/04/19 14:53:00 EDT,Route to Pharmacy Electronically, [facility], 181, cm, 11/04/19 13:39:00 EDT, Height,88.3, [...] 2right wrist with recent prednisone tx, to [facility] 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 per [facility] Social History Social History Type Response Smoking Status Current some day smo ker; Type: Cigarettes; Other: 3 cigarettes per week; entered on: 04/02/18 Sex Patient Care team information Care Team Personnel Name: Nia Ramirez RN Position: S RN Member Role: Primary Care Nurse Name: Memo Alex MD Position: S Outreach Member Role: PCP Address: Address: [address] [place] [id number] Name: Veronique Reese RN Position: [facility] RN Member Role: Primary Care Nurse Name: Chitra Mcdonald RN Position: [facility] AMB Nurse Member Role: Primary Care Nurse Name: Fern Cerrato RN Position: [facility] RN Member Role: Primary Care Nurse Care Team Related Persons Name: GE BRASWELL Address: home [address] [place] [address] Name: PATRICIA OLIVAREZ Address: [address] [address] Name: IVAN GILLIS
== END 2024-04-25 15:36 | disposition home or self-care (01) ==
PROVIDERS: Physician Assistant; Emergency Provider Emergency Medicine; PCP Internal Medicine Geriatric Medicine
DX: L23.1 Allergic contact dermatitis due to adhesives (principal); R07.89 Other chest pain; R94.31 Abnormal electrocardiogram [ECG] [EKG]; I25.10 Atherosclerotic heart disease of native coronary artery without angina pectoris; Z03.818 Encounter for observation for suspected exposure to other biological agents ruled out; Z79.899 Other long term (current) drug therapy; Z87.891 Personal history of nicotine dependence
CPT/HCPCS: 0241U; 36415; 71045; 80053; 81003; 83605; 84484; 85025; 85610; 85652; 85730; 86140; 87040; 93005; 96360; 99284; 99285

== ENCOUNTER → 2024-04-25 12:19 | Outpatient (BNV) | payer MEDICARE, MEDICAID, SELFPAY | PROVIDERS: Emergency Provider Emergency Medicine; PCP Internal Medicine Geriatric Medicine; Visit Provider Internal Medicine Cardiovascular Disease | DX: R94.31 Abnormal electrocardiogram [ECG] [EKG] (principal) | CPT/HCPCS: 93010 ==

== ENCOUNTER → 2024-04-28 14:54 | Outpatient (BNVA) | payer MEDICARE, MEDICAID, SELFPAY | PROVIDERS: PCP Internal Medicine Geriatric Medicine; Visit Provider Registered Nurse | DX: M76.61 Achilles tendinitis, right leg (principal); S86.912A Strain of unspecified muscle(s) and tendon(s) at lower leg level, left leg, initial encounter | CPT/HCPCS: 99212 ==

== ENCOUNTER 2024-05-04 12:57 | Outpatient (AMB) | payer MEDICARE, MEDICAID, SELFPAY ==
[2024-05-04 13:01] VITALS: BP 108/68; PULSE 61; BMI 27.4
--- NOTE | 2024-05-04 13:01 | MHC.OFFVIS ---
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: No Allergies bee pollen [BEE STINGS] Allergy (Severe, Verified 05/04/24 13:03) ANAPHYLAXIS indomethacin [Indocin] Allergy (Severe, Verified 05/04/24 13:03) anaphylaxis tramadol [Ultram] Allergy (Severe, Verified 05/04/24 13:03) anaphylaxis fentanyl Adverse Reaction (Verified 05/04/24 13:03) Anxiety Medication List - Last Reconciled 05/04/24 by Andreea Briggs NP-C amlodipine 10 mg PO DAILY apixaban (Eliquis) 5 mg PO BID 90 days divalproex ER (Depakote ER) 250 mg PO BEDTIME esomeprazole magnesium 40 mg PO QAM ezetimibe (Zetia) 10 mg PO DAILY hyoscyamine sulfate 0.125 mg PO BID-QID PRN isosorbide mononitrate ER 60 mg PO DAILY lisinopril 5 mg PO DAILY mesalamine ER (Apriso) 1.5 grams (4 x 0.375 gram) PO QAM metoprolol tartrate TAKE 1 TABLET BY MOUTH TWICE DAILY IN THE MORNING AND IN THE EVENING multivitamin (Daily Vitamin Formula tablet) 1 tab PO DAILY nitroglycerin (Nitrostat) 0.4 mg sublingual Q5M PRN ondansetron 4 mg PO Q8H PRN oxycodone 10 mg PO Q5H PRN pantoprazole 40 mg PO ranolazine ER 1,000 mg PO BID rosuvastatin (Crestor) 40 mg PO BEDTIME HPI HPI 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 Today he reports that recently he has noticed shortness of breath in a laying down position. Is needing to prop himself up in order to breathe comfortably. He has no shortness of breath in the daytime, no coughing, fevers or any signs of illness. He does admit that he went back to smoking and feels this may be contributing to this symptom. He is now back on a nicotine patch in hopes to stay away from smoking. No weight gain or edema noted. No chest discomfort at rest or with activity. No heart palpitations since his ER visit in November with paroxysmal AFib. No bleeding issues reported. Taking all meds as directed. 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 [facility] Medical History Elevated cholesterol History of chemotherapy Obstructive sleep apnea (~2018) On anticoagulant therapy Personal history of nicotine dependence DVT (deep venous thrombosis) Essential hypertension Tubular adenoma of colon COVID-19 vaccine administered Seizures (~04/2020) GERD (gastroesophageal reflux disease) Esophagitis Atherosclerotic cardiovascular disease Brain lesion Psychotic disorder Syncope Headache Myocardial infarction Pacemaker (~05/2013) Tremor Brain bleed CAD (coronary artery disease) Surgical History Hx of shoulder surgery History of total left knee replacement History of ERCP History of spinal surgery History of colonoscopy (~09/2020) History of right knee surgery (~12/2013) History of total right hip replacement (~06/2012) History of cholecystectomy History of cardiac catheterization History of permanent cardiac pacemaker placement (~05/2013) History of esophagogastroduodenoscopy (EGD) (~09/2020) History of appendectomy Stented coronary artery Family History Father Heavy cigarette smoker Throat cancer Mother Heart disease Social History Household Members: None Household Members Other:: shares house with a friend Housing: House Are you a primary neonatal intensive care nurse to a significant other at home: No Do you presently have visiting nurse or other home services: No Alcohol intake: never Comment: resting eyes closed Patient Tobacco Use Status: Former Tobacco user Tobacco use type: Cigarette Years Smoked: 8 +/- e-Cigarette/Vaping Use: Never Used Second Hand Smoke Exposure: No Advance Directives Date on File: 12/16/20 service: No Current occupational status: employed and retired Review of Systems Const All systems reviewed & are unremarkable except as noted in HPI and below ENT Denies dizziness Card Denies chest pain, Denies chest pain at rest, Denies chest pain with activity, Denies rapid heart rate, Denies pedal edema, Denies edema, Denies leg edema, Denies lightheadedness, Denies palpitations, Denies dyspnea, Denies dyspnea on exertion and Denies orthopnea Resp Denies cough, Denies dyspnea and Denies dyspnea on exertion GI Denies hematochezia and Denies change in stool character Musc Denies abnormal gait, Denies limited range of motion, Denies muscle cramps, Denies muscle weakness, Denies numbness, Denies radiating pain into limb, Denies stiffness and Denies tingling Neuro Denies abnormal gait, Denies dizziness, Denies numbness and Denies tingling Endo Denies palpitations Physical Exam Vital Signs: Last Vital Signs Pulse 61 05/04/24 13:01 BP 108/68 05/04/24 13:01 BMI result Body Mass Index 27.4 Const General: cooperative, healthy appearing, comfortable and no acute distress Orientation/consciousness: patient oriented x3 Neck Neck: Yes normal visual inspection and Yes no JVD Chest Other: pacer site left upper chest well healed - fully approximated, no redness, swelling or drainage. Resp Effort & Inspection: normal respiratory effort Auscultation: clear to auscultation bilaterally, no crackles, no rales, no rhonchi and no wheezes Cardio Jugular venous distension: no JVD Rate: regular rate Rhythm: regular rhythm Heart sounds: S1 normal heart sound present, S2 normal heart sound present, no murmurs and no rubs Neuro General: patient oriented x3 Extrem General: Yes normal to inspection, No no pedal edema and No calf tenderness Psych Appearance: grossly normal Mental Status: mental status grossly normal Speech and movement: Normal speech and movement present Assessment & Plan Assessment & Plan (1) Visit for wound check: Code(s): Z51.89 - Encounter for other specified aftercare Category: Medical Plan: [employer] dual-chamber pacemaker generator change on 04/19/2024. Here for wound check. Wound healed, incision well approximated, no signs of infection. (2) CAD (coronary artery disease): Comment: (NSTEMI 2012, STEMI 2016, Stents to LAD, rPDA, RPL, cath 01/2020), catheterization 07/10/2021, no change to anatomy, patent stents Code(s): I25.10 - Atherosclerotic heart disease of [place] coronary artery without angina pectoris Category: Medical Plan: History of CAD with multiple cardiac catheterizations and PCI in the past. He has known stent to the proximal RPL, distal RCA. He had angioplasty to the distal LAD in 2016. His cardiac catheterization was 07/10/2021 showing patent distal RCA stent, 60% PLV superior branch small size vessel, distal LAD stenosis unchanged, small territory and small-vessel, 40-50% mid LAD stenosis. On recent visit he described getting mid chest pressure, shortness of breath, diaphoresis, left arm discomfort with exertional physical activity such as climbing stairs and walking distances. He underwent a repeat cardiac catheterization which was done on 11/04/2023 showing no significant change in anatomy, right PDA and RCA stents patent. He has been stable since that time. Will continue current management for stable CAD including isosorbide, amlodipine and metoprolol for triple antianginal therapy. He can Continue p.r.n. use of nitroglycerin for chest discomfort. Continue aspirin, high-dose rosuvastatin and Zetia. Emergency care if needed for symptoms. Cardiology follow-up 6 months, sooner if needed. (3) Pacemaker: Onset Date: ~05/2013 Comment: ([employer] DCPP, placed 2012 - device interrogation 08/30/20) Code(s): Z95.0 - Presence of cardiac pacemaker Category: Medical Plan: [employer] dual-chamber pacemaker with recent generator change. Lead change not done. He is hooked up to remote monitoring. Will plan for office interrogation 6 months, sooner if recommended by [employer] rep. (4) Sick sinus syndrome: Code(s): I49.5 - Sick sinus syndrome Category: Medical Plan: As above (5) PAF (paroxysmal atrial fibrillation): Code(s): I48.0 - Paroxysmal atrial fibrillation Category: Medical Plan: History of PAF. Currently suppressed with metoprolol. No recent AF episodes noted. He is on Eliquis for anticoagulation. No bleeding issues reported. No med changes made. (6) On anticoagulant therapy: Comment: (Eliquis) Code(s): Z79.01 - senior living (current) use of anticoagulants Category: Medical Plan: Patient is on Eliquis (7) S/P cardiac cath: Comment: 11/04/2023, left main normal, lad apical 80% stenosis, left circumflex mid 60% stenosis, RCA less than 30% stenosis, patent stents in the right PDA and RCA distal Code(s): Z98.890 - Other specified postprocedural states Category: Surgical Plan: As above Plan Time spent on chart review, documentation, interview and assessment Coding Level of Care Code Est Pt Level 3 (03936) Complex EM visit Add On G2211 Diagnoses Visit for wound check Z51.89 CAD (coronary artery disease) I25.10 Pacemaker Z95.0 Sick sinus syndrome I49.5 PAF (paroxysmal atrial fibrillation) I48.0 On anticoagulant therapy Z79.01 S/P cardiac cath Z98.890 Time Spent (min) 24
== END 2024-05-04 13:19 | disposition home or self-care (01) ==
PROVIDERS: PCP Internal Medicine Geriatric Medicine; Visit Provider Nurse Practitioner Family
DX: Z51.89 Encounter for other specified aftercare (principal); I25.10 Atherosclerotic heart disease of native coronary artery without angina pectoris; Z95.0 Presence of cardiac pacemaker; I49.5 Sick sinus syndrome; I48.0 Paroxysmal atrial fibrillation; Z79.01 Long term (current) use of anticoagulants; Z98.890 Other specified postprocedural states
CPT/HCPCS: 99213; G2211

== ENCOUNTER → 2024-05-04 12:57 | Outpatient (BNVA) | payer MEDICARE, MEDICAID, SELFPAY | PROVIDERS: PCP Internal Medicine Geriatric Medicine; Visit Provider Nurse Practitioner Family | DX: Z09 Encounter for follow-up examination after completed treatment for conditions other than malignant neoplasm (principal); I25.10 Atherosclerotic heart disease of native coronary artery without angina pectoris; I49.5 Sick sinus syndrome; I48.0 Paroxysmal atrial fibrillation; Z95.0 Presence of cardiac pacemaker; Z79.01 Long term (current) use of anticoagulants; Z98.890 Other specified postprocedural states; Z87.891 Personal history of nicotine dependence | CPT/HCPCS: 99212 ==

== ENCOUNTER 2024-06-18 08:21 | Outpatient (AMB) | payer MEDICARE, MEDICAID, SELFPAY ==
--- OUTSIDE RECORDS SUMMARY | 2024-06-18 08:29 | XMS_ITS ---
Author Organization [facility] Address [address] [place] [address] Care Team Providers Care Plaster Block Layer Name Role Phone Name Memo ARREDONDO Primary Care Provider Rolly Manzanares [phone] REASON FOR VISIT cx same day 09/30/23 Encounters Encounter Location Date Provider Diagnosis [facility] [address] [place] [address] 09/30/2023 Rolly Herman Plan Of Treatment No Information Progress Notes * Myles JARADOB:1955 (68 yo M)Acc No.[id number]:09/30/2023 Patient:?JamilMyles bates :1955???Age:68 Y???Sex:Male Address:[address] [place] [address], [place], [address] * true * Date:? Generated for Printi liu/Jorge Alberto/eTransmitting on:?06/18/2024 08:29 AM EST
--- OUTSIDE RECORDS SUMMARY | 2024-06-18 08:29 | XMS_ITS | Patient Health Record ---
Author Organization [facility] Address [address] [place] [address] Care Team Providers Care Ceramics Artist Name Role Phone Name Memo ARREDONDO Primary Care Provider Rolly Manzanares Unavailable [phone] Allergies Allergen (clinical drug ingredient) Drug/Non Drug [...] W/U Status Risk Notes Problem Atherosclerosis of [place] arteries of the extremities ([id number]) Atherosclerosis of [place] artery of both lower extremities, with unspecified presence of clinical manifestation (I70.203) Active confirmed Vital Signs Blood pressure diastolic 80 mm Hg 07/22/2023 Height 5 ft 11 in in 07/22/2023 Blood pressure systolic 120 mm Hg 07/22/2023 Weight 210 lbs 07/22/2023 BMI 29.29 kg/m2 07/22/2023 Procedures Procedure Date Ordered Date Performed Result Body Sit e 37724-HRRDPFO NAIL, 6 OR MORE 07/22/2023 N/A 57822-LNZN SKIN LESIONS, 2 TO 4 07/22/2023 N/A Encounters Encounter Location Date Provider Diagnosis [facility] [address] [address] 07/22/2023 Rolly Herman Atherosclerosis of [place] artery of both lower extremities, with unspecified presence of clinical manifestation I70.203 ; Onychomycosis B35.1 ; Pain of toe of right foot M79.674 and Pain of toe of left foot M79.675 [facility] [address] [address] 09/30/2023 Rolly Herman Assessments Encounter Date Diagnosis (ICD Code) Assessment Notes Treatment Notes Treatment Clinical Notes Section Notes 07/22/2023 Onychomycosis (ICD-10 - B35.1) 07/22/2023 Atherosclerosis of [place] artery of both lower extremities, with unspecified presence of clinical manifestation (ICD-10 - I70.203) 07/22/2023 Pain of toe of right foot (ICD-10 - M79.674) 07/22/2023 Pain of toe of left foot (ICD-10 - M79.675) Plan Of Treatment Pending Test Test Name Order Date X ray : Foot, left 3V 01/23/2022 X ray : Foot, left 3V 11/29/2022 94400-XMNTJXN NAIL, 6 OR MORE 02/25/2023 01033-MCDWQCP NAIL, 6 OR MORE 11/29/2022 84356-KBFQVDX NAIL, 6 OR MORE 07/22/2023 21987-BPRBCMN NAIL, 6 OR MORE 03/05/2022 96738-OKFJXXD NAIL, 6 OR MORE 05/28/2022 80472-PIGUINM NAIL, 6 OR MORE 08/27/2022 74600-Kscblihw Plate 05/28/2022 33984- Debride <25 sq cm 01/23/2022 86382 I&D ABSCESS- SIMPLE,SINGLE 022 75117-DJST SKIN LESIONS, 2 TO 4 08/28/19 23 10279-LUEQ SKIN LESIONS, 2 TO 4 05/28/20 22 65439-BBLK SKIN LESIONS, 2 TO 4 07/22/19 24 50508-XCFM SKIN LESIONS, 2 TO 4 11/30/19 23 58221-ZFTF SKIN LESIONS, 2 TO 4 02/26/20 23 Insurance Providers Payer Name Payer Address Payer Phone Subscriber Number Group Number Insured Name Patient Relationship to Insured Coverage Start Date Coverage End Date Medicare National [employer] [address] [place] [address] [id number] Myles [place] Self - patient is the [...] spine surgery 09/04/2015 Hospitalization History Reason Date(Month/Year) [facility] - AFib and choke at sametime- coded 2x CPR done 2 days 06/13/2022 [facility]Drain left knee 3 x between 5 weeks 2021 [facility] [place] [facility] painful L migel Ingrown? g ivedy antiboitics 01/08/22 Cardiac Cath and Stent Coronary artery disease invo lving [place] coronary artery of [place] heart with unstable angina pectoris
--- OUTSIDE RECORDS SUMMARY | 2024-06-18 08:29 | XMS_ITS ---
Author Organization [facility] Address [address] [place] [address] Care Team Providers Care Web Manager Name Role Phone Name Memo ARREDONDO Primary Care Provider Rolly Manzanares Unavailable [phone] Allergies Allergen (clinical drug ingredient) Drug/Non Drug [...] Blood pressure systolic 120 mm Hg 07/22/19 Blood pressure diastolic 80 mm Hg 024 Procedures Procedure Date Ordered Date Performed Result Body Sit e 76396-DSZRTJF NAIL, 6 OR MORE 07/22/2023 N/A 03116-BVWO SKIN LESIONS, 2 TO 4 07/22/2023 N/A Encounters Encounter Location Date Provider Diagnosis [facility] [place] [address] [place] [address] 07/22/2023 Rolly Herman Atherosclerosis of [place] artery of both lower extremities, with unspecified presence of clinical manifestation I70.203 ; Onychomycosis B35.1 ; Pain of toe of right foot M79.674 and Pain of toe of left foot M79.675 Assessments Encounter Date Diagnosis (ICD Code) Assessment Notes Treatment Notes Treatment Clinical Notes Section Notes 07/22/2023 Atherosclerosis of [place] artery of both lower extremities, with unspecified presence of clinical manifestation (ICD-10 - I70.203) 07/22/2023 Onychomycosis (ICD-10 - B35.1) 07/22/2023 Pain of toe of right foot (ICD-10 - M79.674) 07/22/2023 Pain of toe of left foot (ICD-10 - M79.675) Plan Of Treatment Pending Test Test Name Order Date 44082-KIGHJXZ NAIL, 6 OR MORE 07/22/2023 11865-TYCS SKIN LESIONS, 2 TO 4 07/22/19 24 [...] as necessary. Patient chooses, no pharmaceutical tx (41970) Keratoma Treatment Parring or Cutting o f Benign Hyperkeratotic Lesion(s) 89186 (2-4 Lesions) - The Benign hyperkeratotic lesions, as described above were pared, and/or cut utilizing a sterile #15 blade, tissue nippers, and/or dremel, Q8 Progress Notes * Myles JARADOB:1955 (68 yo M)Acc No.[id number]:07/22/2023 Progress Note Patient:?Myles Jara Provider:?Rolly Herman DPM :1955???Age:68 Y???Sex:Male Phillip e:07/22/2023 Address:[address] [place], [place] [id number] Pcp:Memo Alex MD Subjective: * Chief Complaints: [...] Hospitalization/Major Diagno stic Procedure:?Coronary artery disease involving [place] coronary artery of [place] heart with unstable angina pectoris Cardiac Cath and Stent C [facility] painful L migel Ingrown? [facility] [...] * Assessment: 1.?Onychomycosis - B35.1?2.? Atherosclerosis of [place] artery of both lower extremities, with unspecified presence of clinical manifestation - I70.203?3.?Pain of toe of right foot - M79.674?4.?Pain of toe of left foot - M79.675? Plan: * Treatment: 2.?Atherosclerosis of [place] artery of both lower extremities, with unspecified presence of clinical manifestation?Procedure: 40882-JHDG SKIN LESIONS, 2 TO 4 * Procedures:?Debride Nail 6-10:?Nail debridement?Nail debridement performed extensively to reduce/remove overall nail length, girth, thickness, subungual debris, and necrotic tissue, by manual and electrical means through the use of a nail nipper and/or dremel, to more viable healthy nail plate or bed tissue 1-5. Silver nitrate used for any petechial bleeding as necessary. Patient chooses, no pharmaceutical tx (36858).?Keratoma Treatment:?Parring or Cutting of Benign Hyperkeratotic Lesion(s)?34838 (2-4 Lesions) - The Benign hyperkeratotic lesions, as described above were pared, and/or cut utilizing a sterile #15 blade, tissue nippers, and/or dremel, Q8.? * Procedure Codes:?96039 DEBRI DE NAIL, 6 OR MORE, Modifiers: XS 23577 TRIM SKIN LESIONS, 2 TO 4, Modifiers: XS , Q8 * Follow Up:?prn * Images: * Sign off status: Completed true * Provider:?Rolly Herman DPM Date:?2023 Generated for James hatfield/Jorge Alberto/Robbin on:?06/18/2024 08:29 AM EST History and Physical Notes * HPI (History of Present Illness) Category Sub-Category Detail Notes Category Not es At Risk footcare Pt States Last PCP Visit: Date: 4 Examination Category Sub-Category Detail Notes Category Not es Dermatologic SKIN FINDINGS: Skin exam reveal s Keratotic lesion(s) located at, SUB MTH (s), 1, B/L, Heel(s), B/L Vascular DP PULSES (B): 1/4, B/L PT PULSES (B): 0/4, B/L CAPILLARY FILL TIME: delayed, all digits , B/L TEMPERTURE GRADIENT (C): decreased, cool to cool, proximal to distal, B/L TROPHIC CONDITION-TEXTURE/ELASTICITY/TURGOR/HAIR GROWTH (B): decreased, B/L EDEMA (C): absent, B/L CLAUDICATION (C): denies, B/L REST PAIN: denies, B/L PIGMENTATION: mottled, B/L Nails NAILS are: Elongated, overg rown, dystrophic, lytic, greater than 3mm thick, discolored and friable with crumbly malodorous subungual debris, with pain on palpation, 1-5 B/L
--- OUTSIDE RECORDS SUMMARY | 2024-06-18 08:29 | XMS_ITS ---
Author Organization [facility] Address [address] [place] [address] Care Team Providers Care Cable Television Technician Name Role Phone Name Memo ARREDONDO Primary Care Provider Rolly Manzanares Unavailable [phone] Encounters Encounter Location Date Provider Diagnosis [address] [address] 09/30/2023 Rolly Herman Plan Of Treatment No Information Progress Notes * Myles JARADOB:1955 (69 yo M)Acc No.[id number]:09/30/2023 Progress Note Patient:Myles WHITING Provider:?Rolly Herman DPM :1955???Age:68 Y???Sex:Male Phillip e:09/30/2023 Address:[address] [place], [place] [id number] Pcp:Memo Alex MD Subjective: * Chief Complaints: * ??? * Medical History:? Objective: * Vitals:? Assessment: Plan: * Treatment: * Images: * The named appointment provid er may or may not be the originator of this progress note, and it is not deemed complete until electronically signed by the appointment provider. Sign off status: Pending * Provider:?Rolly Herman DPM Date:?2023 Generated for Glennyi liu/Jorge Alberto/eTransmitting on:?06/18/2024 08:29 AM EST
--- OUTSIDE RECORDS SUMMARY | 2024-06-18 08:29 | XMS_ITS | Continuity of Care Document ---
Author Organization [facility] Address [address] [place] [address]- Care Team Providers Care Hand Iii Cutter Name Role Phone Name Memo ARREDONDO Primary Care Physician Encounter [facility] Date(s): 04/27/24 - 05/27/24 [facility] [address] [place] [address]- Encounter Type: Triage Allergies, Adverse Reactions, Alerts Substance Criticality Severity Reaction Reaction Severity Status indomethacin Shortness of breath Active methadone 1 Drug-induced psychosis Active Ultram 2, 3 Shortness of breath Active [...] 30 tablet, 0 Refills, Maintenance, 02/21/13 11:28:26 AM EDT, Tablet, [id number] Start Date: 02/21/13 Stop Date: 03/23/13 Status: Ordered Quantity: 30.0 Unit: tablet Repeat number: 1 aspirin 81 mg oral delayed release tablet 81 mg, By Mouth, Daily, # 30 tablet, Refills 2, Tot. Refills 2, Maintenance, 11/04/19 2:53:00 PM EDT, Route to Pharmacy Electronically, [facility], 181, cm, 11/04/19 13:39:00 EDT, Height, 88.3, kg, 10/31/19 0:37:00 EDT, Dry Weight Start Date: 11/04/19 Stop Date: 02/02/20 Status: Ordered Quantity: 30.0 Unit: tablet Repeat number: 3 divalproex sodium 250 mg oral tablet, extended release 1 tablet = 250 mg, By Mouth, Daily, 0 Refills, Maintenance, 11/14/20 4:58:00 PM EDT, Partial fill upon patient request if the prescription is for a schedule II opioid drug. Start Date: 11/14/20 Status: Ordered Repeat number: 1 Eliquis 5 mg oral tablet 1 tablet = 5 mg, By Mouth, 2 times a day, # 60 tablet, 5 Refills, Maintenance, 07/10/21 6:39:00 AM EST, Tablet, Partial fill upon patient request if the prescription is for a schedule II opioid drug. Start Date: 07/10/21 Status: Ordered Quantity: 60.0 Unit: tablet Repeat number: 1 Imdur ER 0 Refills, Maintenance, 04/19/24 7:28:00 AM EST, Partial fill upon patient request if the prescription is for a schedule II opioid drug. Start Date: 04/19/24 Status: Ordered Repeat number: 1 lisinopril 20 mg oral tablet 10 mg, 0.5, tablet, By Mouth, Daily, Refills 0, Maintenance, 08/03/20 2:41:00 PM EST, Partial fill upon patient request if the prescription is for a schedule II opioid drug. Start Date: 08/03/20 Status: Ordered Repeat number: 1 Metoprolol Tartrate 50 mg oral tablet 1 tablet = 50 mg, By Mouth, 2 times a day, with meals Start Date: 11/14/20 Status: Ordered Repeat number: 1 Multivitamin By Mouth, Daily, 0 Refills, Maintenance, 02/19/13 11:25:18 PM EDT Start Date: 02/19/13 Status: Ordered Repeat number: 1 nitroglycerin 0.4 mg sublingual tablet 1 tablet = 0.4 mg, Sublingual, Every 5 minutes, 0 Refills, Maintenance, 02/19/13 11:23:47 PM EDT Start Date: 02/19/13 Status: Ordered Repeat number: 1 oxyCODONE 5 mg oral tablet 10 mg, 2, tablet, By Mouth, Every 6 hours, PRN, Refills 0, Tot. Refills 0, Maintenance, Pain , Moderate, 12/13/15 6:07:04 PM EDT Start Date: 12/13/15 Status: Ordered Repeat number: 1 pantoprazole 40 mg oral delayed release tablet 1 tablet = 40 mg, By Mouth, Daily, # 30 tablet, 0 Refills, Maintenance, 11/14/20 4:57:00 PM EDT, EC Tablet Start Date: 11/14/20 Status: Ordered Quantity: 30.0 Unit: tablet Repeat number: 1 Ranexa 1000 mg oral tablet, extended release 1 tablet = 1,000 mg, By Mouth, 2 times a day, # 60 tablet, 0 Refills, Maintenance, 04/02/18 7:31:13AM EDT, ER Tablet Start Date: 04/02/18 Status: Ordered Quantity: 60.0 Unit: tablet Repeat number: 1 rosuvastatin 40 mg oral tablet = 40 mg, By Mouth, Daily at bedtime, # 30 tablet, 0 Refills, Maintenance, 05/27/17 12:37:06 PM EST,Tablet, [facility] 3 Start Date: 05/27/17 Stop Date: 06/26/17 Status: Ordered Quantity: 30.0 Unit: tablet Repeat number: 1 Spritam 750 mg oral tablet, dispersible DISSOLVE 1 TABLET BY MOUTH TWICE DAILY Start Date: 07/10/21 Status: Ordered Repeat number: 1 Zetia 10 mg oral tablet 1 tablet = 10 mg, By Mouth, Daily, # 30 tablet, 0 Refills, Maintenance, 10/05/16 10:49:13 PM EDT, Tablet Start Date: 10/05/16 Status: Ordered Quantity: 30.0 Unit: tablet Repeat number: 1 Problem List Condition Confirmation Course Effective Dates [...] 2right wrist with recent prednisone tx, to rehabilitation supervisor 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 per [facility] Social History Social History Type Response Smoking Status Current some day smo ker; Type: Cigarettes; Other: 3 cigarettes per week; entered on: 04/02/18 Sex Sex Representation Male (finding) Patient Care team information Care Team Personnel Name: Nia Ramirez RN Position: [facility] RN Member Role: Primary Care Nurse Name: Memo Alex MD Position: [facility] Outreach Member Role: PCP Address: [address] [place] [address] Telecom: Name: Veronique Reese RN Position: [facility] RN Member Role: Primary Care Nurse Name: Chitra Mcdonald RN Position: [facility] Nurse Member Role: Primary Care Nurse Name: Fern Cerrato RN Position: [facility] RN Member Role: Primary Care Nurse Care Team Related Persons Name: GE BRASWELL Name: PATRICIA OLIVAREZ Name: IVAN GILLIS Insurance Providers Guarantor name: JENARO Health Plan Information #: 1 Payer: MEDICARE PART B OUTPT Member Number: NA Policy Number: NA Group Number: NA Health Plan Information #: 2 Payer: [facility] Member Number: NA Policy Number: NA Group Number: NA
--- OUTSIDE RECORDS SUMMARY | 2024-06-18 08:29 | XMS_ITS | Continuity of Care Document ---
Author Organization [facility] Address [address] [place] [address]- Care Team Providers Care Phone Counselor Name Role Phone Name Memo ARREDONDO Primary Care Physician [phone] Encounter [facility] Date(s): 04/13/24 - 06/03/24 [facility] [address] [place] [address]- Attending Physician: Jalen Gallardo DO Admitting Physician: Jalen Gallardo DO Encounter Type: Pre-OutPatient One Time Allergies, Adverse Reactions, Alerts Substance Criticality Severity [...] Refills, Maintenance, 02/21/13 11:28:26 AM EDT, Tablet, [id number] Start Date: 02/21/13 Stop Date: 03/23/13 Status: Ordered Quantity: 30.0 Unit: tablet Repeat number: 1 aspirin 81 mg oral delayed release tablet 81 mg, By Mouth, Daily, # 30 tablet, Refills 2, Tot. Refills 2, Maintenance, 11/04/19 2:53:00 PM EDT, Route to Pharmacy Electronically, [facility], 181, cm, 11/04/19 13:39:00 [...] 0 Refills, Maintenance, 05/27/17 12:37:06 PM EST,Tablet, 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 [facility] Social History Social History Type Response Smoking Status Current some day smo ker; Type: Cigarettes; Other: 3 cigarettes per week; entered on: 04/02/18 Sex Sex Representation Male (finding) Patient Care team information Care Team Personnel Name: Nia Ramirez RN Position: [facility] RN Member Role: Primary Care Nurse Name: Memo Alex MD Position: [facility] Outreach Member Role: PCP Address: [address] [place] [address] Telecom: Name: Veronique Reese RN Position: S RN Member Role: Primary Care Nurse Name: Chitra Mcdonald RN Position: [facility] AMB Nurse Member Role: Primary Care Nurse Name: Fern Cerrato RN Position: [facility] RN Member Role: Primary Care Nurse Care Team Related Persons Name: GE BRASWELL Name: PATRICIA OLIVAREZ Name: IVAN GILLIS Insurance Providers Guarantor name: JENARO Health Plan Information #: 1 Payer: MEDICARE PART B OUTPT Member Number: [id number] Policy Number: NA Group Number: NA Health Plan Information #: 2 Payer: [facility] [facility] Member Number: [id number] Policy Number: NA Group Number: NA
--- OUTSIDE RECORDS SUMMARY | 2024-06-18 08:29 | XMS_ITS | Continuity of Care Document ---
Author Organization [facility] Address [address] [place] [address]- Care Team Providers Care Or Director Name Role Phone Name Memo ARREDONDO Primary Care Physician Encounter [facility] Date(s): 05/04/24 - 06/03/24 [facility] [address] [place] [address]- Attending Physician: Lona Fox Admitting Physician: Lona Fox Referring Physician: Lona Fox Encounter Type: Triage Allergies, Adverse Reactions, Alerts [...] Refills, Maintenance, 02/21/13 11:28:26 AM EDT, Tablet, [facility] #[id number] Start Date: 02/21/13 Stop Date: 03/23/13 Status: Ordered Quantity: 30.0 Unit: tablet Repeat number: 1 aspirin 81 mg oral delayed release tablet 81 mg, By Mouth, Daily, # 30 tablet, Refills 2, Tot. Refills 2, Maintenance, 11/04/19 2:53:00 PM EDT, Route to Pharmacy Electronically, [facility], 181, cm, 11/04/19 13:39:00 [...] 0 Refills, Maintenance, 05/27/17 12:37:06 PM EST,Tablet, [facility] 3 Start Date: 05/27/17 Stop Date: 06/26/17 Status: Ordered Quantity: 30.0 Unit: tablet Repeat number: 1 Spritam 750 mg oral tablet, dispersible DISSOLVE 1 TABLET BY MOUTH TWICE DAILY Start Date: 07/10/21 Status: Ordered Repeat number: 1 Zetia 10 mg oral tablet 1 tablet = 10 mg, By Mouth, Daily, # 30 tablet, 0 Refills, Maintenance, 10/05/16 10:49:13 PM EDT, Tablet Start Date: 4/29/17 Status: Ordered Quantity: 30.0 Unit: tablet Repeat [...] wrist with recent prednisone tx, 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 [facility] Social History Social History Type Response Smoking Status Current some day smo ker; Type: Cigarettes; Other: 3 cigarettes per week; entered on: 04/02/18 Sex Sex Representation Male (finding) Patient Care team information Care Team Personnel Name: Nia Ramirez RN Position: [facility] RN Member Role: Primary Care Nurse Name: Memo Alex MD Position: [facility] Outreach Member Role: PCP Address: [address] [place] [address] Telecom: Name: Veronique Reese RN Position: S RN Member Role: Primary Care Nurse Name: Chitra Mcdonald RN Position: [facility] AMB Nurse Member Role: Primary Care Nurse Name: Fern Cerrato RN Position: [facility] RN Member Role: Primary Care Nurse Care Team Related Persons Name: GE BRASWELL Name: PATRICIA OLIVAREZ Name: IVAN GILLIS Insurance Providers Guarantor name: JENARO Health Plan Information #: 1 Payer: MEDICARE PART B OUTPT Member Number: NA Policy Number: NA Group Number: NA Health Plan Information #: 2 Payer: [place] Member Number: NA Policy Number: NA Group Number: NA
--- NOTE | 2024-06-18 09:32 | MHC.OFFVIS ---
Intake Visit Reasons: Left Venaseal Accompanied by: Self / Same As Patient Allergies bee pollen [BEE STINGS] Allergy (Severe, Verified 06/18/24 09:32) ANAPHYLAXIS indomethacin [Indocin] Allergy (Severe, Verified 06/18/24 09:32) anaphylaxis tramadol [Ultram] Allergy (Severe, Verified 06/18/24 09:32) anaphylaxis fentanyl Adverse Reaction (Verified 06/18/24 09:32) Anxiety [facility] Medical History Nicotine dependence, cigarettes, uncomplicated Elevated cholesterol History of chemotherapy Obstructive sleep apnea (~2018) On anticoagulant therapy DVT (deep venous thrombosis) Essential hypertension Tubular adenoma of colon COVID-19 vaccine administered Seizures (~04/2020) GERD (gastroesophageal reflux disease) Esophagitis Atherosclerotic cardiovascular disease Brain lesion Psychotic disorder Syncope Headache Myocardial infarction Pacemaker (~05/2013) Tremor Brain bleed CAD (coronary artery disease) Surgical History Hx of shoulder surgery History of total left knee replacement History of ERCP History of spinal surgery History of colonoscopy (~09/2020) History of right knee surgery (~12/2013) History of total right hip replacement (~06/2012) History of cholecystectomy History of cardiac catheterization History of permanent cardiac pacemaker placement (~05/2013) History of esophagogastroduodenoscopy (EGD) (~09/2020) History of appendectomy Stented coronary artery Family History Father Heavy cigarette smoker Throat cancer Mother Heart disease Social History Household Members: None Household Members Other:: shares house with a friend Housing: House Are you a primary manager respiratory care to a significant other at home: No Do you presently have visiting nurse or other home services: No Alcohol intake: never Comment: resting eyes closed Patient Tobacco Use Status: Former Tobacco user Tobacco use type: Cigarette Years Smoked: 8 +/- e-Cigarette/Vaping Use: Never Used Second Hand Smoke Exposure: No Advance Directives Date on File: 12/16/20 service: No Current occupational status: employed and retired Office Procedures Vascular Office Procedure Details Details: Diagnosis: Left Leg varicose veins with inflammation Procedure: Endovenous Ablation of the left Great Saphenous Vein with VenaSeal Closure System Anesthesia: Local infiltration 5 cc, Bleach Supervisor: TAL Nuñez Estimated Blood Loss: min Specimen: none Duplex ultrasound was used to map out the insufficient saphenous vein, and access was determined and marked on the overlying skin. The depth and diameter of the vein(s) to be treated was documented. The patient was placed supine on the procedure table and the leg was prepped and draped using sterile technique. Ultasound guidance was again used to localize the access site. 1% lidocaine was injected as a local anesthetic in the subcutaneous tissues at the target location in the GSV in the lower leg. Using ultrasound guidance, access was gained at this location with the 19 gauge thin walled access needle and followed by introduction of a short guidewire, location confirmed with ultrasound. A small, 3 mm incision was made at the access site to allow for introduction and placement of the 7 Fr x7cm introducer/dilator. The dilator and guidewire were removed. The 0.035 guidewire from the VenaSeal kit was then introduced and positioned at the saphenofemoral junction using ultrasound guidance. The 80 cm 7 Fr introducer sheath/dilator was positioned 5cm from the saphenofemoral junction. The guidewire and dilator were removed, and the remaining sheath was flushed with sterile saline, with the syringe remaining in place prior to the next steps. The cyanoacrylate adhesive was precisely primed into the 5 F delivery catheter and this catheter/syringe combination was attached within the dispenser gun. This assembly was introduced through the 7F sheath and positioned 5 cm caudal of the saphenofemoral junction under ultrasound guidance. The steps from the IFU were followed for dispensing amounts, locations and compression times, 2 aliquots proximally with 3 minutes of compression, and 1 aliquot every 3 cm distally with 30 sec of compression along the course of the vessel. Following the last injection and compression sequence, the catheter and introducer sheath were pulled out from the access site. Hemostasis was achieved with manual compression and an adhesive bandage was applied to the incision. Ultrasound confirmed complete coaptation and closure of the treated segments of the GSV, and the absence of any DVT at the saphenofemoral junction. Treatment time was approximately 7 minutes and the vein length treated was 55 cm. The drapes were removed and the patient cleaned and prepared for discharge. Post op ultrasound check is scheduled for 48-72 hours and the patient was given written post-op instructions. 22452 - Endoven Ther Chem Adhes 1st All charges added?: Procedure code (CPT) selection complete Assessment & Plan Assessment & Plan (1) Varicose veins of left lower extremity with inflammation: Comment: 06/18/2024 - left great saphenous vein Cyanoacralate ablation Code(s): I83.12 - Varicose veins of left lower extremity with inflammation Category: Medical Plan: See op note Coding Level of Care Code Procedure Only Diagnoses Varicose veins of left lower extremity with inflammation I83.12 CPT Codes Details - Vascular 3: 70854 - Endoven Ther Chem Adhes 1st ([id number])
== END 2024-06-18 11:52 | disposition home or self-care (01) ==
PROVIDERS: PCP Internal Medicine Geriatric Medicine; Visit Provider Surgery Vascular Surgery
DX: I83.12 Varicose veins of left lower extremity with inflammation (principal)
CPT/HCPCS: 36482

== ENCOUNTER → 2024-06-18 08:21 | Outpatient (BNVA) | payer MEDICARE, MEDICAID, SELFPAY | PROVIDERS: PCP Internal Medicine Geriatric Medicine; Visit Provider Surgery Vascular Surgery | DX: I83.12 Varicose veins of left lower extremity with inflammation (principal) | CPT/HCPCS: 36482; J2003 ==

== ENCOUNTER → 2024-07-01 09:08 | Outpatient (BNVA) | payer MEDICARE, MEDICAID, SELFPAY | PROVIDERS: PCP Internal Medicine Geriatric Medicine; Visit Provider Surgery Vascular Surgery | DX: I83.12 Varicose veins of left lower extremity with inflammation (principal) | CPT/HCPCS: 99212 ==

== ENCOUNTER 2024-07-07 16:06 | Outpatient (REF) | payer MEDICARE, MEDICAID, SELFPAY ==
[2024-07-07 17:37] LABS: MANUAL DIFF FLAG NO
--- OUTSIDE RECORDS SUMMARY | 2024-07-07 17:46 | XMS_ITS | Encounter Summary ---
Author Organization [employer] Address [address] [place] [address] [address] [place] [address] Care Team Providers Care Tubing Machine Operator Name Role Phone Name, Memo ARREDONDO Primary Care Provider [phone] Encounter Details Date Type Department Care Team (Latest Contact Info) Description 07/09/2021 Abstract [facility] CONVERSIONS Dental, Provider, DDS Social History Tobacco Use Types Packs/Day Years Used Date Smoking Tobacco: Never Assessed Sex and Gender Information Value Date Recorded Sex Assigned at Male 04/08/2022 10:20 AM EDT Legal Sex Male 10:20 AM EDT Gender Identity Male 04/08/2022 10:20 AM EDT Sexual Orientation Straight 04/08/2022 10 :20 AM EDT documented as of this encounter Plan of Treatment Upcoming Encounters Date Type Department Care Team (Late st Contact Info) Description 08/06/2024 10:00 AM EST Telemedicine [facility] MEDICINE [address] [place] [address] 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, RN documented as of this encounter Visit Diagnoses Not on filedocumented in this encounter Care Teams Tubing Machine Operator Relationship Specialty Start Date End Date Name, MD Memo [address] [place] [address] PCP - General Family Medicine 08/30/15 documented as of this encounter
--- OUTSIDE RECORDS SUMMARY | 2024-07-07 17:46 | XMS_ITS | Encounter Summary ---
Author Organization [employer] Address [address] [place] [address] [address] [place] [address] Care Team Providers Care Projector Booth Operator Name Role Phone Name, Memo ARREDONDO Primary Care Provider [phone] Reason for Visit * Reason Comments Medicare Annual Wellness Visit Initial [place] scheduled Encounter Details Date Type Department Care Team ([facility] st Contact Info) Description 06/16/2024 Patient Outreach [facility] MEDICINE [address] [place] [address] Name, MD Memo [address] [place] [address] Medicare Annual Wellness Visit Initial ([facility] scheduled) Social History Tobacco Use Types Packs/Day Years Used Date Smoking Tobacco: Every Day Cigarettes Passive Smoke Exposure: Past Alcohol Use Standard Drinks/Week Comments Never 0 (1 standard drink = 0.6 oz pur e alcohol) Alcohol Answer Date Recorded Frequency of Alcohol Consumption Not on file 04/12/2024 Average Number of Drinks Not on file 024 Frequency of Binge Drinking Not on file 09/2023 Score 0 04/12/2024 Depression Answer Date Recorded Patient Health Questionnaire-9 Score 0 07/17/2023 Patient Health Questionnaire-9 Score 0 07/17/2023 Last PHQ-9: Questionnaire Data Not on file 0 07/17/2023 Housing Stability Answer Date Recorded What is your housing situation today? I have lesly tirado 07/17/[address] you li ve. Do you have problems with any of the following? None of the above 07/17/2023 Food Insecurity Answer Date Recorded Within the past 12 months, y ou worried that your food would run out before you got money to buy more: Never True 07/17/2023 Within the past 12 months,th e food you bought just didn't last and you didn't have enough money to get more: Never True 01/2024 Transportation Answer Date Recorded In the past 12 months, has l ack of transportation kept you from medical appts, meetings, work or from getting things needed for daily living? No 07/17/2023 Utilities Answer Date Recorded In the past 12 months, has t he electric, gas, oil or water company threatened to shut off services in your home? No 07/17/2023 Depression Answer Date Recorded Patient Health Questionnaire-2 Score 0 07/17/2023 Sex and Gender Information Value Date Recorded Sex Assigned at Male 04/08/2022 10:20 AM EDT Legal Sex Male 10:20 AM EDT Gender Identity Male 04/08/2022 10:20 AM EDT Sexual Orientation Straight 04/08/2022 10 :20 AM EDT documented as of this encounter Progress Notes * Xochitl Haddad - 06/16/2024 1:57 PM EST No slots available for Annual wellness visit. documented in this encounter Plan of Treatment Upcoming Encounters Date Type Department Care Team (Late st Contact Info) Description 08/06/2024 10:00 AM EST Telemedicine [facility] MEDICINE [address] [place] [address] 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 RN documented as of this encounter Visit Diagnoses Not on filedocumented in this encounter Additional Health Concerns Assessment Noted Time PHQ-9 Depression Total Score: 0 07/17/19 24 10:49 AM EST documented as of this encounter Care Teams Projector Booth Operator Relationship Specialty Start Date End Date Name, MD Memo [address] [place] [address] PCP - General Family Medicine 08/30/15 documented as of this encounter
--- OUTSIDE RECORDS SUMMARY | 2024-07-07 17:46 | XMS_ITS | Encounter Summary ---
Author Organization [employer] Address [address] [place] [address] 7 [place] [address] Care Team Providers Care Cell Plasterer Name Role Phone Memo Alex MD Primary Care Provider [phone] Reason for Referral * Imaging (Routine) - Pending Review Specialty Diagnoses / Procedures Referred By Sonia t Referred To Contact Radiology Diagnoses Abdominal pain, LLQ Procedures CT Abdomen Pelvis w/ Contrast Memo Alex MD [address] [place] [address] Phone: tel: fax: Referral ID Status Reason Start Date Expiration Date V isits Requested Visits Authorized [id number] Pending Review 07/07/2024 07/07/2025 1 1 Reason for Visit * Reason Comments Follow-up Encounter Details Date Type Department Care Team (Late st Contact Info) Description 07/07/2024 3:30 PM EST Office Visit [facility] [address] [place] [address] [phone] Memo Alex MD [address] [place] [address] [phone] Abdominal pain, LLQ (Primary Dx) Social History Tobacco Use Types Packs/Day Years Used Date Smoking Tobacco: Every Day Cigarettes Passive Smoke Exposure: Past Tobacco Cessation:Ready to Q uit: Not Asked; Counseling Given: Not Answered Alcohol Use Standard Drinks/Week Comments Never 0 [...] AM EDT documented as of this encounter Last Filed Vital Signs Vital Sign Reading Time Taken Comments Blood Pressure 110/69 07/07/2024 3:29 PM EST Pulse 60 07/07/2024 3:29 PM EST Temperature 35.6 ??C (96 ??F) 07/07/2024 3:29 PM EST Respiratory Rate 12 07/07/2024 3:29 PM EST Oxygen Saturation 95% 07/07/2024 3:29 PM EST Inhaled Oxygen Concentration - - Weight 91.6 kg (202 lb) 07/07/2024 3:29 PM EST Height 180.3 cm (5' 11 ) 07/07/2024 3:29 PM EST Body Mass Index 28.17 07/07/2024 3:29 PM EST documented in this encounter Progress Notes * Memo Alex, - 07/07/2024 3:30 PM EST Subjective Patient ID: Myles Tipton is a 69 y.o. male who presents for Follow-up. Myles complains of 10 days of left lower quadrant discomfort on and off, malaise, occasional nausea. No fevers or chills, no severe abdominal pain, no diarrhea or constipation, no blood in the stool or black stool. He has a personal history of diverticulitis in the past. He is worried he is having d iverticulitis again. During his visit he is nontoxic, he is in no distress, vital signs are normal.He denies any chest pains or shortness of breath. Review of Systems Constitutional: Negative for chills, fatigue and fever. HENT: Negative for sore throat. Respiratory: Negative for cough, chest tightness and shortness of breath. Cardiovascular: Negative for chest pain, palpitations and leg swelling. Gastrointestinal: Negative for abdominal pain and blood in stool. Visit Vitals BP 110/69 (BP Location: Left arm, Patient Position: Sitting, BP Cuff Size: Adult) Pulse 60 Temp 96 ??F (35.6 ??C) (Temporal) Resp 12 Ht 5' 11 (1.803 m) Wt 202 lb (91.6 kg) SpO2 95% BMI 28.17 kg/m?? Smoking Status Every Day BSA 2.14 m?? Objective Physical Exam Constitutional: Appearance: Normal appearance. Cardiovascular: Rate and Rhythm: Normal rate and regular rhythm. Heart sounds: No murmur heard. Pulmonary: Effort: Pulmonary effort is normal. No respiratory distress. Breath sounds: No wheezing, rhonchi or rales. Abdominal: Palpations: Abdomen is soft. Tenderness: There is abdominal tenderness. Comments: Had mild discomfort on deep palpation of the left lower quadrant. Musculoskeletal: Right lower leg: No edema. Left lower leg: No edema. Neurological: Mental Status: He is alert. Assessment/Plan Diagnoses and all orders for this visit: Abdominal pain, LLQ Comments: I will check CBC and CMP. I will suggest he goes to the ER if he has a significant elevated WBC. I will send him for CT scan of the abdomen. I asked him to go to the ER if the pain is much worse tonight. He has been using ibuprofen and is also on Eliquis. I recommended to stop the ibuprofen at this point (he was prescribed this by vascular for left leg phlebitis that has resolved). His hemoglobintoday is normal. Orders: - CBC auto differential; Future - Comprehensive Metabolic Panel; Future - CT Abdomen Pelvis w/ Contrast; Future - POCT Hemoglobin documented in this encounter Plan of Treatment Upcoming Encounters Date Type Department Care Team (Late st Contact Info) Description 08/06/2024 10:00 AM EST Telemedicine [facility] [address] [place] [address] [phone] 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 RN Scheduled Orders Name Type Priority Associated Diagnoses Orde r Schedule CBC auto differential Lab Routine Abdominal pain, LLQ Expected: 07/07/2024 (Approximate), Expires: 07/07/2025 Comprehensive Metabolic Panel Lab Routine Abdominal pain, LLQ Expected: 07/07/2024 (Approximate), Expires: 07/07/2025 CT Abdomen Pelvis w/ Contrast Imaging Routine Abdominal pain, LLQ Expected: 07/07/2024, Expires: 07/07/2025 documented as of this encounter Procedures Procedure Name Priority Date/Time Associated Diagnosis Comments POCT HEMOGLOBIN Routine 07/07/2024 3:56 PM EST Abdominal pain, LLQ documented in this encounter Results * POCT Hemoglobin (07/07/2024 3:56 PM EST) Hemoglobin 15.0 13.0 - 17.0 QC Media Lot # [id number] Lot# Expiration Date Blood 07/07/2024 3:56 PM EST Memo Alex MD POINT OF CARE TEST ENTER/EDIT OR DERABLES Final Result documented in this encounter Visit Diagnoses Diagnosis Abdominal pain, LLQ- Primary documented in this encounter Additional Health Concerns Assessment Noted Time PHQ-9 Depression Total Score: 0 07/17/19 24 10:49 AM EST documented as of this encounter Care Teams Cell Plasterer Relationship Specialty Start Date End Date NameMemo MD [address] [place] [address] PCP - General Family Medicine 08/30/15 documented as of this encounter
--- OUTSIDE RECORDS SUMMARY | 2024-07-07 17:46 | XMS_ITS ---
Author Organization [facility] Address [address] [facility] [place] [address] Care Team Providers Care Tailor Fitter Name Role Phone Name Memo ARREDONDO Primary Care Provider Rolly Manzanares Unavailable [phone] Allergies Allergen (clinical drug ingredient) Drug/Non Drug [...] Ordered Date Performed Result Body Sit e 33771-VZVNFEL NAIL, 6 OR MORE 07/22/2023 N/A 28596-OEMW SKIN LESIONS, 2 TO 4 07/22/2023 N/A Encounters Encounter Location Date Provider Diagnosis [facility] [place] [address] [place] [address] 07/22/2023 Rolly Herman Atherosclerosis of paiute-shoshone artery of both lower extremities, with unspecified presence of clinical manifestation I70.203 ; Onychomycosis B35.1 ; Pain of toe of right foot M79.674 and Pain of toe of left foot M79.675 Assessments Encounter Date Diagnosis (ICD Code) Assessment Notes Treatment Notes Treatment Clinical Notes Section Notes 07/22/2023 Atherosclerosis of paiute-shoshone artery of both lower extremities, with unspecified presence of clinical manifestation (ICD-10 - I70.203) 07/22/2023 Onychomycosis (ICD-10 - B35.1) 07/22/2023 Pain of toe of right foot (ICD-10 - M79.674) 07/22/2023 Pain of toe of left foot (ICD-10 - M79.675) Plan Of Treatment Pending Test Test Name Order Date 22201-WCGWUFC NAIL, 6 OR MORE 07/22/2023 81063-GBJX SKIN LESIONS, 2 TO 4 07/22/19 24 [...] as necessary. Patient chooses, no pharmaceutical tx (13261) Keratoma Treatment Parring or Cutting o f Benign Hyperkeratotic Lesion(s) 35039 (2-4 Lesions) - The Benign hyperkeratotic lesions, as described above were pared, and/or cut utilizing a sterile #15 blade, tissue nippers, and/or dremel, Q8 Progress Notes * Myles JARADOB:1955 (68 yo M)Acc No.[id number]:07/22/2023 Progress Note Patient:?Myles Jara Provider:?Rolly Herman DPM :1955???Age:68 Y???Sex:Male Phillip e:07/22/2023 Address:[address] [place], [place] [id number] Pcp:Memo Alex MD Subjective: * Chief Complaints: [...] Hospitalization/Major Diagno stic Procedure:?Coronary artery disease involving paiute-shoshone coronary artery of paiute-shoshone heart with unstable angina pectoris Cardiac Cath and Stent C -Ugent Care painful L migel Ingrown? [facility] between 5 weeks [...] * Assessment: 1.?Onychomycosis - B35.1?2.? Atherosclerosis of paiute-shoshone artery of both lower extremities, with unspecified presence of clinical manifestation - I70.203?3.?Pain of toe of right foot - M79.674?4.?Pain of toe of left foot - M79.675? Plan: * Treatment: 2.?Atherosclerosis of paiute-shoshone artery of both lower extremities, with unspecified presence of clinical manifestation?Procedure: 01310-SIXB SKIN LESIONS, 2 TO 4 * Procedures:?Debride Nail 6-10:?Nail debridement?Nail debridement performed extensively to reduce/remove overall nail length, girth, thickness, subungual debris, and necrotic tissue, by manual and electrical means through the use of a nail nipper and/or dremel, to more viable healthy nail plate or bed tissue 1-5. Silver nitrate used for any petechial bleeding as necessary. Patient chooses, no pharmaceutical tx (99026).?Keratoma Treatment:?Parring or Cutting of Benign Hyperkeratotic Lesion(s)?18390 (2-4 Lesions) - The Benign hyperkeratotic lesions, as described above were pared, and/or cut utilizing a sterile #15 blade, tissue nippers, and/or dremel, Q8.? * Procedure Codes:?97424 DEBRI DE NAIL, 6 OR MORE, Modifiers: XS 33366 TRIM SKIN LESIONS, 2 TO 4, Modifiers: XS , Q8 * Follow Up:?prn * Images: * Sign off status: Completed true * Provider:?Rolly Herman DPM Date:?2023 Generated for James hatfield/Jorge Alberto/Robbin on:?07/07/2024 02:15 PM EST History and Physical Notes * [...]
--- OUTSIDE RECORDS SUMMARY | 2024-07-07 17:46 | XMS_ITS | Encounter Summary ---
Author Organization [employer] Address [address] [place] [address] 7 [place] [address] Care Team Providers Care Laundry Folder Name Role Phone Name, Memo ARREDONDO Primary Care Provider [phone] Reason for Visit * Reason Onset Date Comments Nurse Triage 09/03/2023 Encounter Details Date Type Department Care Team ([facility] st Contact Info) Description 09/03/2023 Telephone [facility] [address] [place], [place] [phone] Name, MD Memo [address] [place] [address] Nurse Triage Social History Tobacco Use Types Packs/Day Years Used Date Smoking Tobacco: Former Cigarettes Passive Smoke Exposure: Current Alcohol Use Standard Drinks/Week Comments Never 0 (1 standard drink = 0.6 oz pur e alcohol) Depression Answer Date Recorded Patient Health Questionnaire-9 [...] AM EDT documented as of this encounter Miscellaneous Notes * Telephone Encounter - Lindsey Burns RN - 09/03/2023 4:05 PM EDT Triage call Pt was seen in [facility] Ed 09/02/23 , report is on the chart, due to acute nausea, vomiting, diarrhea, abdominal pain. Pt had been given the option to go home or be admitted to the hospital forIV medication and fluids with diagnosis of colitis. Pt decided to go home. Pt reports no further vomiting, has had another diarrhea but, no blood observed. Pt did try to eat scrambled eggs and had severe pain. Pt is advised to drink liquids at this time only. Broth, decaf tea, juice, water and advance to full liquids ice cream, pudding slowly . Pt agrees with this advice. Pt was prescribed two antibiotics amoxicillin - clavulanate and metronadazole. Pt just took first dose yesterday and has yamile ated well . Pt is calling regarding pain which is increased with ambulation. Pt was prescribed MS for pain but hasn't filled that medication because Pt takes oxycodone for back pain. Pt does have an appt with Dr. Garza 09/12/23. Pt has follow up apt with PCP 10/07/23. Pt is advised to return to ED for possible admission if continues to have increased pain. Pt reports , I will give the antibiotics a little more time and just drink liquids for now . Pt will return to ED if feels that symptoms continue to worsen. Agency Owner will forward this triage to PCP and nursing team. Pt agreeswith disposition and home care advised. Insurance is verified as active. Protocol Used: Abdominal Pain - Male (Adult) Protocol-Based Disposition: Go to ED/[facility] Now (or to Office with PCP Approval) Positive Triage Question: * Mild to Moderate constant pain lasting > 2 hours * All higher-acuity triage questions were negative Care Advice Discussed: * Reassurance and Education - Stomach Pain * Rest * Drink Clear Fluids * Reasons To Call Back - Severe pain lasts over 1 hour - Constant pain lasts over 2 hours - Intermittent pains (e.g., comes and goes, cramps) lasts over 48 hours - You become worse * Telephone Encounter - Roselia Haddad - 09/03/2023 3:18 PM EDT Symptom: Abdominal Pain - Male Outcome: Talk to a nurse or provider within 15 minutes Reason: Severe pain now The caller accepted this outcome Pt inform went to [facility] ER on 09/02/23 but 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 documented in this encounter Plan of Treatment Upcoming Encounters Date Type Department Care Team (Late st Contact Info) Description 08/06/2024 10:00 AM EST Telemedicine [facility] [address] [place] [address] 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, VON documented as of this encounter Visit Diagnoses Not on filedocumented in this encounter Additional Health Concerns Assessment Noted Time PHQ-9 Depression Total Score: 0 07/17/19 24 10:49 AM EST documented as of this encounter Care Teams Laundry Folder Relationship Specialty Start Date End Date Name, MD Memo [address] [place] [address] PCP - General Family Medicine 08/30/15 documented as of this encounter
--- OUTSIDE RECORDS SUMMARY | 2024-07-07 17:46 | XMS_ITS | Encounter Summary ---
Author Organization [employer] Address [address] [place] [address] 7 [place] [address] Care Team Providers Care Radiology Clerk Name Role Phone Name, Memo ARREDONDO Primary Care Provider Reason for Visit * Reason Onset Date Comments c/b requested 10/20/2023 Encounter Details Date Type Department Care Team ([facility] st Contact Info) Description 10/20/2023 Telephone [facility] [address] [place], [place] [phone] Name, MD Memo [address] [place] [address] c/b requested Social History Tobacco Use Types Packs/Day Years Used Date Smoking Tobacco: Former Cigarettes Passive Smoke Exposure: Past Alcohol Use [...] encounter Miscellaneous Notes * Telephone Encounter - Mercedes Avila - 10/20/2023 11:18 AM EDT Tc from pt requesting a call back, states they will be having [place]23 [place] [facility] , and has some further questions and concerns. Please contact at [phone] documented in this encounter Plan of Treatment Upcoming Encounters Date Type Department Care Team (Late st Contact Info) Description 08/06/2024 10:00 AM EST Telemedicine [facility] [address] [place] [address] 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, VON documented as of this encounter Visit Diagnoses Not on filedocumented in this encounter Additional Health Concerns Assessment Noted Time PHQ-9 Depression Total Score: 0 07/17/19 10:49 AM EST documented as of this encounter Care Teams Radiology Clerk Relationship Specialty Start Date End Date Name, MD Memo [address] [place] [address] PCP - General Family Medicine 08/30/15 documented as of this encounter
--- OUTSIDE RECORDS SUMMARY | 2024-07-07 17:46 | XMS_ITS ---
Author Organization [facility] Address [address] [place] [address] Care Team Providers Care Data Software Engineer Name Role Phone Name Memo ARREDONDO Primary Care Provider Rolly Manzanares Unavailable [phone] Encounters Encounter Location Date Provider Diagnosis [address] [address] 09/30/2023 Rolly Herman Plan Of Treatment No Information Progress Notes * Myles JARADOB:1955 (69 yo M)Acc No.[id number]:09/30/2023 Progress Note Patient:Myles WHITING Provider:?Rolly Herman DPM :1955???Age:68 Y???Sex:Male Phillip e:09/30/2023 Address:[address] [place], [place] [id number] Pcp:Memo Alex MD Subjective: * Chief Complaints: * ??? * Medical History:? Objective: * Vitals:? Assessment: Plan: * Treatment: * Images: * The named appointment provid er may or may not be the originator of this progress note, and it is not deemed complete until electronically signed by the appointment provider. Sign off status: Pending * Provider:?Rolly Herman DPM Date:?2023 Generated for Printi liu/Fajacqui/eTransmitting on:?07/07/2024 02:15 PM EST
--- OUTSIDE RECORDS SUMMARY | 2024-07-07 17:46 | XMS_ITS ---
Author Organization [facility] Address [address] [place] [address] Care Team Providers Care Criminal Profiler Name Role Phone Name Memo ARREDONDO Primary Care Provider Rolly Manzanares [phone] REASON FOR VISIT cx same day 09/30/23 Encounters Encounter Location Date Provider Diagnosis [facility] [address] [place] [address] 09/30/2023 Rolly Herman Plan Of Treatment No Information Progress Notes * Myles JARADOB:1955 (68 yo M)Acc No.[id number]:09/30/2023 Patient:?JamilMyles bates :1955???Age:68 Y???Sex:Male Address:[address] [place] [address], [address] * true * Date:? Generated for Printi liu/Jorge Alberto/eTransmitting on:?07/07/2024 02:15 PM EST
--- OUTSIDE RECORDS SUMMARY | 2024-07-07 17:46 | XMS_ITS | Encounter Summary ---
Author Organization [employer] Address [address] [place] [address] 7 [place] [address] Care Team Providers Care Preparation Operator Name Role Phone Name, Memo ARREDONDO Primary Care Provider [phone] Encounter Details Date Type Department Care Team ([facility] Contact Info) Description 06/06/2022 Telephone [facility] [address] [place] [phone] Name, MD Memo [address] [place] [address] Social History Tobacco Use Types Packs/Day Years Used Date Smoking Tobacco: Never Assessed Sex and Gender Information Value Date Recorded Sex Assigned at Male 04/08/2022 10:20 AM EDT Legal Sex Male 10:20 AM EDT Gender Identity Male 04/08/2022 10:20 AM EDT Sexual Orientation Straight 04/08/2022 10 :20 AM EDT COVID-19 Exposure Response Date Recorded In the last 10 days, have yo u been in contact with someone who was confirmed or suspected to have Coronavirus/COVID-19? No / Unsure 05/20/2022 10:39 AM EST documented as of this encounter Plan of Treatment Upcoming Encounters Date Type Department Care Team (Late Contact Info) Description 08/06/2024 10:00 AM EST Telemedicine [facility] [address] [place] [address] 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 RN documented as of this encounter Visit Diagnoses Not on filedocumented in this encounter Care Teams Preparation Operator Relationship Specialty Start Date End Date Name, MD Memo [address] [place] [address] PCP - General Family Medicine 08/30/15 documented as of this encounter
--- OUTSIDE RECORDS SUMMARY | 2024-07-07 17:46 | XMS_ITS | Encounter Summary ---
Author Organization [employer] Address [address] [place] [address] 7 [place] [address] Care Team Providers Care Sourcing Internship Name Role Phone Name, Memo ARREDONDO Primary Care Provider [phone] Reason for Visit * Reason Onset Date Comments Med Refill 06/14/2024 Encounter Details Date Type Department Care Team ([facility] st Contact Info) Description 06/14/2024 Refill [facility] [address] [place], [place] [phone] Name, MD Memo [address] [place] [address] Chronic pain syndrome Social History Tobacco Use Types Packs/Day Years [...] encounter Miscellaneous Notes * Telephone Encounter - Lisa Coulter - 06/14/2024 11:11 AM EST TC from pt requesting medication refill. Medications needing refill : oxyCODONE (Roxicodone) 10 MG immediate release tablet To be sent to: [facility] [address] documented in this encounter Plan of Treatment Upcoming Encounters Date Type Department Care Team (Late st Contact Info) Description 08/06/2024 10:00 AM EST Telemedicine [facility] [address] [place] [address] 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, VON documented as of this encounter Visit Diagnoses Diagnosis Chronic pain syndrome documented in this encounter Additional Health Concerns Assessment Noted Time PHQ-9 Depression Total Score: 0 07/17/19 10:49 AM EST documented as of this encounter Care Teams Sourcing Internship Relationship Specialty Start Date End Date Name, MD Memo [address] [place] [address] PCP - General Family Medicine 08/30/15 documented as of this encounter
--- OUTSIDE RECORDS SUMMARY | 2024-07-07 17:46 | XMS_ITS | Encounter Summary ---
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 I have lesly tirado 03/24/[address] you li ve. Do you have problems with any of the following? None of the above 03/24/2023 Food Insecurity Answer Date Recorded Within the past 12 months, y ou worried that your food would run out before you got money to buy more: Never True 03/24/2023 Within the past 12 months,th e food you bought just didn't last and you didn't have enough money to get more: Never True Transportation Answer Date Recorded In the past 12 months, has l ack of transportation kept you from medical appts, meetings, work or from getting things needed for daily living? No 03/24/2023 Utilities Answer Date Recorded In the past 12 months, has t he electric, gas, oil or water company threatened to shut off services in your home? 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
--- OUTSIDE RECORDS SUMMARY | 2024-07-07 17:46 | XMS_ITS | Patient Health Record ---
Author Organization [facility] Address [address] [place] [address] Care Team Providers Care Process Cheese Cooker Name Role Phone Name Memo RAREDONDO Primary Care Provider Rolly Manzanares Unavailable [phone] Allergies Allergen (clinical drug ingredient) Drug/Non Drug [...] W/U Status Risk Notes Problem Atherosclerosis of cowlitz arteries of the extremities ([id number]) Atherosclerosis of cowlitz artery of both lower extremities, with unspecified presence of clinical manifestation (I70.203) Active confirmed Vital Signs Blood pressure diastolic 80 mm Hg 07/22/2023 Height 5 ft 11 in in 07/22/2023 Blood pressure systolic 120 mm Hg 07/22/2023 Weight 210 lbs 07/22/2023 BMI 29.29 kg/m2 07/22/2023 Procedures Procedure Date Ordered Date Performed Result Body Sit e 04168-WJELIYM NAIL, 6 OR MORE 07/22/2023 N/A 14863-VQTC SKIN LESIONS, 2 TO 4 07/22/2023 N/A Encounters Encounter Location Date Provider Diagnosis [facility] [address] [address] 07/22/2023 Rolly Herman Atherosclerosis of cowlitz artery of both lower extremities, with unspecified presence of clinical manifestation I70.203 ; Onychomycosis B35.1 ; Pain of toe of right foot M79.674 and Pain of toe of left foot M79.675 [facility] [address] [address] 09/30/2023 Rolly Herman Assessments Encounter Date Diagnosis (ICD Code) Assessment Notes Treatment Notes Treatment Clinical Notes Section Notes 07/22/2023 Onychomycosis (ICD-10 - B35.1) 07/22/2023 Atherosclerosis of cowlitz artery of both lower extremities, with unspecified presence of clinical manifestation (ICD-10 - I70.203) 07/22/2023 Pain of toe of right foot (ICD-10 - M79.674) 07/22/2023 Pain of toe of left foot (ICD-10 - M79.675) Plan Of Treatment Pending Test Test Name Order Date X ray : Foot, left 3V 01/23/2022 X ray : Foot, left 3V 11/29/2022 71684-WJFIFVN NAIL, 6 OR MORE 02/25/2023 56902-MWFJZDP NAIL, 6 OR MORE 11/29/2022 03260-OJZWITO NAIL, 6 OR MORE 07/22/2023 09056-ZFSJRJC NAIL, 6 OR MORE 03/05/2022 32496-JZBZKNC NAIL, 6 OR MORE 05/28/2022 34352-OWPUQMM NAIL, 6 OR MORE 08/27/2022 65240-Gufbndpt Plate 05/28/2022 96187- Debride <25 sq cm 01/23/2022 85730 I&D ABSCESS- SIMPLE,SINGLE 022 88124-LLSM SKIN LESIONS, 2 TO 4 08/28/19 23 63462-WGQI SKIN LESIONS, 2 TO 4 05/28/20 22 60204-FPKK SKIN LESIONS, 2 TO 4 07/22/19 24 97763-KXWF SKIN LESIONS, 2 TO 4 11/30/19 23 62777-OSCP SKIN LESIONS, 2 TO 4 02/26/20 23 Insurance Providers Payer Name Payer Address Payer Phone Subscriber Number Group Number Insured Name Patient Relationship to Insured Coverage Start Date Coverage End Date Medicare National [employer] [address] [place] [address] [id number] Myles T[place] Self - patient is the [...] coded 2x CPR done 2 days 06/13/2022 [facility] left knee 3 x between 5 weeks 2021 [facility] Care painful L migel Ingrown? 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
--- OUTSIDE RECORDS SUMMARY | 2024-07-07 17:46 | XMS_ITS | Encounter Summary ---
Author Organization [employer] Address [address] [place] [address] 7 [place] [address] Care Team Providers Care Pile Driving Technician Name Role Phone Name, Memo ARREDONDO Primary Care Provider [phone] Reason for Visit * Reason Comments Med Refill Encounter Details Date Type Department Care Team ([facility] st Contact Info) Description 10/25/2022 Refill [facility] [address] [place], [place] [id number] Name, MD Memo [address] [place] [address] Chronic pain syndrome Social History Tobacco Use Types Packs/Day Years Used Date Smoking Tobacco: Former Cigarettes Passive Smoke Exposure: Current Alcohol Use Standard Drinks/Week Comments Never 0 (1 standard drink = 0.6 oz pur e alcohol) Depression Answer Date Recorded Patient Health Questionnaire-9 Score 9 06/27/2022 Depression Answer Date Recorded Patient Health Questionnaire-2 [...] suspected to have Coronavirus/COVID-19? No / Unsure 10/10/2022 9:47 AM EDT documented as of this encounter Miscellaneous Notes * Telephone Encounter - Patranulfo Danielta - 10/25/2022 12:24 PM EDT Pt walk in requesting refill for his Oxycodone 10 MG. documented in this encounter Plan of Treatment Upcoming Encounters Date Type Department Care Team (Late st Contact Info) Description 08/06/2024 10:00 AM EST Telemedicine [facility] [address] [place] [address] 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 RN documented as of this encounter Visit Diagnoses Diagnosis Chronic pain syndrome documented in this encounter Additional Health Concerns Assessment Noted Time PHQ-9 Depression Total Score: 9 06/27/19 10:17 AM EST documented as of this encounter Care Teams Pile Driving Technician Relationship Specialty Start Date End Date Name, MD Memo [address] [place] [address] PCP - General Family Medicine 08/30/15 documented as of this encounter
--- OUTSIDE RECORDS SUMMARY | 2024-07-07 17:46 | XMS_ITS | Encounter Summary ---
Author Organization [employer] Address [address] [place] [address] [address] [place] [address] Care Team Providers Care Hatchery Attendant Name Role Phone Name, Memo ARREDONDO Primary Care Provider [phone] Reason for Visit * Reason Onset Date Comments returning call back 05/14/2022 Encounter Details Date Type Department Care Team (Late st Contact Info) Description 05/14/2022 Telephone [facility] [address] [place] [address] Name, MD Memo [address] [place] [address] returning call back Social History Tobacco Use Types Packs/Day Years [...] suspected to have Coronavirus/COVID-19? No / Unsure 05/14/2022 8:53 AM EST documented as of this encounter Miscellaneous Notes * Telephone Encounter - Hong Niño - 05/14/2022 11:34 AM EST Tc from pt returning call. Pt requested to be called back. Please contact pt at [phone] documented in this encounter Plan of Treatment Upcoming Encounters Date Type Department Care Team (Late st Contact Info) Description 08/06/2024 10:00 AM EST Telemedicine [facility] [address] [place] [address] 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, VON documented as of this encounter Visit Diagnoses Not on filedocumented in this encounter Care Teams Hatchery Attendant Relationship Specialty Start Date End Date Name, MD Memo [address] [place] [address] PCP - General Family Medicine 08/30/15 documented as of this encounter
--- OUTSIDE RECORDS SUMMARY | 2024-07-07 17:46 | XMS_ITS | Encounter Summary ---
Author Organization [employer] Address [address] [facility] [address] [place] [address] Care Team Providers Care General Hardware Salesperson Name Role Phone Name, Memo ARREDONDO Primary Care Provider [phone] Reason for Visit * Reason Onset Date Comments triage 06/06/2022 Encounter Details Date Type Department Care Team ([facility] st Contact Info) Description 06/06/2022 Telephone [facility] [address] [place] [address] Name, MD Memo [address] [place] [address] triage Social History Tobacco Use Types Packs/Day Years [...] Telephone Encounter - Lindsey Burns RN - 06/06/2022 10:25 AM EST Triage call Pt reports symptoms have worsened. Pt was triaged 06/05 for mild symptoms of covid. Pt home tested + 06/05 though reports symptoms since 06/04. Pt reports this morning fever is 101 responding to tylenol at 100 time of call. Pt has shivering and feels very cold all the time. Dizziness and some chest tightness this morning , Pt was speaking without noted sob and was very concerned about symptoms increasing. Pt is given tele visit with PRIYANKA Schwab at 1115am . [facility] unable to schedule a tele visit and no other available apts today. Pt insurance is verified Protocol Used: COVID-19 - Diagnosed or Suspected (Adult) Protocol-Based Disposition: Discuss with PCP and Callback by Nurse Today Video visit offered and caller accepted Positive Triage Question: * [1] Fever returns after gone for over 24 hours AND [2] symptoms worse or not improved * All higher-acuity triage questions were negative * Telephone Encounter - Roselia Haddad - 06/06/2022 8:22 AM EST Symptom: positive COVID-19 Outcome: Schedule a same-day appointment or talk to a nurse or provider today Reason: No high acuity concerns reported by caller The caller accepted this outcome Pt was triaged yesterday and was advised to call back with any concerns . Pt would like to start covid treatment . documented in this encounter Plan of Treatment Upcoming Encounters Date Type Department Care Team (Late st Contact Info) Description 08/06/2024 10:00 AM EST Telemedicine [facility] [address] [place] [address] 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 RN documented as of this encounter Visit Diagnoses Not on filedocumented in this encounter Care Teams General Hardware Salesperson Relationship Specialty Start Date End Date Name, MD Memo [address] [place] [address] PCP - General Family Medicine 08/30/15 documented as of this encounter
--- OUTSIDE RECORDS SUMMARY | 2024-07-07 17:46 | XMS_ITS | Encounter Summary ---
Author Organization [employer] Address [address] [facility] [address] [place] [address] Care Team Providers Care Educational Technology Specialist Name Role Phone Name, Memo ARREDONDO Primary Care Provider [phone] Reason for Visit * Reason Onset Date Comments triage 06/05/2022 Encounter Details Date Type Department Care Team ([facility] st Contact Info) Description 06/05/2022 Telephone [facility] [address] [place] [address] Name, MD Memo [address] [place] [address] triage Social History Tobacco Use Types Packs/Day [...] Telephone Encounter - Lindsey Burns RN - 06/05/2022 2:55 PM EST Triage call Pt reports neg for Covid home test. Pt reports 3 days of headaches, shakiness, dizziness, temp is 96 though feels chills at times. Home care reviewed with Pt and Pt agreed with disposition. Pt is offered to come to [facility] if needed. Advised to increase liquids to 8 glasses per day and Pt agrees. Protocol Used: Dizziness (Adult) Protocol-Based Disposition: Home Care Positive Triage Question: * Dizziness caused by not drinking enough fluids * All higher-acuity triage questions were negative Care Advice Discussed: * Reassurance and Education - Dizziness From Not Drinking Enough Liquids * Drink Fluids * Lie Down and Rest * Cool Off * Prevention * Reasons To Call Back - After 2 hours of rest and fluids And still feeling dizzy. - Passes out (faints). - You become worse. * Telephone Encounter - Roselia Catie - 06/05/2022 12:53 PM EST Symptom: Shaking, headaches and dizziness Outcome: Talk to a nurse or provider within 15 minutes Reason: Started within the past 24 hours The caller accepted this outcome *States did home covid kit and came back negative documented in this encounter Plan of Treatment Upcoming Encounters Date Type Department Care Team (Late st Contact Info) Description 08/06/2024 10:00 AM EST Telemedicine [facility]INE [address] [place] [address] 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 RN documented as of this encounter Visit Diagnoses Not on filedocumented in this encounter Care Teams Educational Technology Specialist Relationship Specialty Start Date End Date Name, MD Memo [address] [place] [address] PCP - General Family Medicine 08/30/15 documented as of this encounter
--- OUTSIDE RECORDS SUMMARY | 2024-07-07 17:46 | XMS_ITS | Clinical Summary ---
Author Organization [employer] Address [address] [place] [address] 7 [place] [address] Care Team Providers Care Mixing Pan Tender Name Role Phone Name, Memo ARREDONDO Primary Care Provider [phone] Allergies Active Allergy Reactions Criticality Noted Date Comments Bee Pollen Anaphylaxis High 09/12/2022 Bee Venom Anaphylaxis High 01/25/2011 Other reaction(s): Unknown Enoxaparin 11/08/2015 Other reaction(s): Unknown Honey Bee Venom Rash Low 03/14/2021 Other reaction(s): Unknown Indomethacin Unknown,Anaphylaxis High 11/08/2015 Other reaction(s): Unknown Methadone 05/09/2000 Other reaction(s): Drug-induced psychosis, Mental Status Change CAUSES PERSONALITY CHANGE Morphine 11/08/2015 Tramadol Unknown,Anaphylaxis High 11/08/2015 Other reaction(s): Unknown Medications levETIRAcetam (Keppra) 500 MG tablet Take 1 tablet by mouth 2 times daily. 022 Active metoprolol tartrate (Lopressor) 100 MG tablet TAKE 1 TABLET BY MOUTH TWICE DAILY IN THE MORNING AND IN THE EVENING 022 Active sucralfate (Carafate) 1 g tablet TAKE 1 TABLET BY MOUTH FOUR TIMES DAILY BEFORE MEALS AND AT BEDTIME 023 Active amLODIPine (Norvasc) 5 MG tablet Take 1 tablet (5 mg) by mouth in the morning. 30 tablet 11 023 Active ondansetron (Zofran) 0.32 mg/mL solution injection 4 mg. 023 Active esomeprazole (NexIUM) [address] capsule 023 Active pantoprazole (ProtoNix) 40 MG EC tablet TAKE 1 TABLET BY MOUTH TWICE DAILY IN THE MORNING AND IN THE EVENING 180 tablet 1 Active isosorbide mononitrate ER (Imdur) 30 MG 24 hr tabletIndicatio ns:Essential hypertension Take 1 tablet (30 mg) by mouth in the morning. Do not crush or chew. 90 tablet Active mesalamine ER (Apriso) 0.375 g 24 hr capsule TAKE 4 CAPSULES BY MOUTH EVERY MORNING Active lisinopril 5 MG tablet TAKE 1 TABLET BY MOUTH EVERY MORNING 30 tablet 11 024 Active Eliquis 5 MG tabletIndicatio ns:Deep vein thrombosis (DVT) of proximal lower extremity, unspecified chronicity, unspecified laterality (CMS/HCC) TAKE 1 TABLET BY MOUTH TWICE DAILY IN THE MORNING AND IN THE EVENING 60 tablet 5 024 Active ranolazine (Ranexa) 1000 MG 12 hr tablet TAKE 1 TABLET BY MOUTH TWICE DAILY IN THE MORNING AND IN THE EVENING 180 tablet 2 Active nicotine (Nicoderm CQ) 21 MG/24HR patch Place 1 patch on the skin 1 (one) time each day at the same time. 30 patch Active nitroglycerin (Nitrostat) 0.4 MG SL tabletIndicatio ns:Atherosclero sis of alutiiq coronary artery of alutiiq heart with stable angina pectoris (CMS/HCC) PLACE 1 TABLET UNDER THE TONGUE EVERY 5 MINUTES IF NEEDED FOR CHEST PAIN 90 tablet 2 024 Active divalproex (Depakote ER) 250 MG 24 hr tablet TAKE 1 TABLET BY MOUTH AT BEDTIME 30 tablet 5 024 Active rosuvastatin (Crestor) 40 MG tablet TAKE 1 TABLET BY MOUTH EVERY EVENING 90 tablet 024 Active ezetimibe (Zetia) 10 MG tablet TAKE 1 TABLET BY MOUTH EVERY EVENING 90 tablet 024 Active cyclobenzaprine (Flexeril) 10 MG tabletIndicatio ns:Choking, subsequent encounter TAKE 1 TABLET BY MOUTH TWICE A DAY 60 tablet 024 Active Aspirin Low Dose 81 MG EC tabletIndicatio ns:Coronary artery disease involving alutiiq heart without angina pectoris, unspecified vessel or lesion type TAKE 1 TABLET BY MOUTH EVERY MORNING 90 tablet 1 12/10/2 024 Active Multiple Vitamin (One-Daily Multi-Vitamin) tablet TAKE 1 TABLET BY MOUTH EVERY MORNING 90 tablet 1 Active oxyCODONE (Roxicodone) 10 MG immediate release tabletIndicatio ns:Chronic pain syndrome Take 1 tablet (10 mg) by mouth See administration instructions for 28 days. One tablet every 5 to 6 hours as needed for pain. Do not start before June 17, 2024. 140 tablet 025 2024 Active oxyCODONE (Roxicodone) 10 MG immediate release tabletIndicatio ns:Chronic pain syndrome Take 1 tablet (10 mg) by mouth See administration instructions for 28 days. One tablet every 5 to 6 hours as needed for pain. Do not start before May 20, 2024. 140 tablet 024 2024 Discontinued(R eorder (will not trigger notification to Pharmacy)) Active Problems Problem Noted Date Diagnosed Date Rectal bleeding 04/06/2024 Assessment & Plan (04/06/2024 5:54 PM EDT): He had a bleeding hemorrhoid, now stopped. Hb is 12.7,will confirm with CBC tomorrow but it doesn't seem a big hb drop. Advised to avoid constipation, eat pear, dangelo, raisins, prune juice and water. Take colace prn Use hydrocortisone cream bid until pain and bleeding stops Use zinc oxide paste to speed up healing, re consult prn recurrent bleeding. Reschedule GI appt w Dr Garza. Left lower quadrant abdominal pain 04/06/2024 Assessment & Plan (04/06/2024 5:53 PM EDT): Neg Covid test today ?Diverticulosis? Order cbc and sed rate, will call back if there is increased inflammatory response Order LFTs due to RUQ pain , will call if there is significant obstruction (AP?) RS GI appt Elevated liver enzymes 12/26/2022 Upper abdominal pain 12/26/2022 Atrial flutter 12/26/2022 Cerebral calcification 12/26/2022 Choking episode 12/26/2022 Hypoxia 12/26/2022 Osteoarthritis of right shoulder 12/26/2022 Nausea 12/26/2022 On anticoagulant therapy 12/26/2022 PAD (peripheral artery disease) 12/26/2022 PAF (paroxysmal atrial fibrillation) 12/26/2022 Personal history of nicotine dependence 12/27/19 Sick sinus syndrome 12/26/2022 Pacemaker 12/26/2022 CAD (coronary artery disease) 12/26/2022 DVT (deep venous thrombosis) 12/26/2022 GERD (gastroesophageal reflux disease) Pain of left heel 12/02/2022 Assessment & Plan (12/02/2022 9:23 PM EDT): Pt w left heel pain radiated to calf and sole No swelling ,redness nor inc skin temp in LLE, normal ankle exam w no concern x gout Pt has hx of DVT a year ago now on AC -possible symptoms seems related with muscular in nature , possible plantar fasciitis. 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 22 Gout 05/14/2022 Overview (05/14/2022): right wrist with recent prednisone tx, to package pick up 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 per [facility] Primary localized osteoarthritis of pelvic regio n and thigh 05/14/2022 Rotator cuff impingement syndrome 05/14/2022 Tobacco dependence 05/14/2022 Tubular adenoma of colon 05/14/2022 Acute deep vein thrombosis ( DVT) of proximal vein of left lower extremity 05/14/2022 Deep vein thrombosis (DVT) 05/14/2022 Gastroesophageal reflux disease 05/14/2022 Hypertension 05/14/2022 Acute myocardial infarction 05/14/2022 Osteoarthritis of knee 05/14/2022 Syncope 05/14/2022 Anxiety 05/01/2022 Deep venous thrombosis of lower extremity 2021 Depressive disorder 05/01/2022 Esophagitis 05/01/2022 Gastroduodenitis 05/01/2022 Headache 05/01/2022 Lung mass 05/01/2022 Pain of left calf 05/01/2022 Seizure 05/01/2022 Visual impairment 05/01/2022 Obstructive sleep apnea syndrome 08/05/2018 Acute suppurative otitis med ia with spontaneous rupture of ear drum 07/16/2018 Osteoarthritis of right knee 06/15/2018 Drowsy 04/06/2018 Hyperlipidemia 02/24/2018 Overview (05/14/2022): Hypercholesterolemia Last Assessment & Plan: LDL goal less than 70. Profile followed by his PCP. Smoking 02/24/2018 Overview (12/26/2022): Last Assessment & Plan: Still at 2 cigarettes a day we talked about this and he is going to continue to work on it Chantix was an option at one time but he will try to readdress Atherosclerosis of alutiiq co ronary artery of alutiiq heart with stable angina pectoris 02/24/2018 Overview (05/14/2022): Last Assessment & Plan: His angina is well controlled currently we reviewed his previous nuclear stress testing from January he also had a CTA done in November continue medical therapy ST-segment elevation myocard ial infarction (STEMI) of inferior wall 02/24/2018 Erectile dysfunction 02/02/2018 Senile hyperkeratosis 02/02/2018 Gastroesophageal reflux disease without esophagi tis 10/13/2017 History of cholecystectomy 10/13/2017 Lumbar spine pain 10/13/2017 Osteoarthritis of hip 10/13/2017 Old myocardial infarction 06/10/2017 S/P coronary artery stent placement 06/10/2017 Essential tremor 02/04/2017 History of right hip replacement 01/06/2017 Essential hypertension 04/09/2016 Cardiac pacemaker in situ 09/04/2015 Coronary artery disease of n ative artery of alutiiq heart with stable angina pectoris 09/04/2015 Radicular pain 09/04/2015 Urinary retention 07/28/2015 Chronic pain syndrome 05/12/2015 Degeneration of lumbar/lumbosacral disc without myelopathy 05/12/2015 Thoracic degenerative disc disease 05/12/2015 Lumbar radiculopathy 05/12/2015 Spinal stenosis of lumbar region 05/12/2015 Spondylosis of lumbar region without myelopathy or radiculopathy 05/12/2015 Degenerative lumbar spinal stenosis 03/09/2015 Pain of left lower leg 01/24/2015 Achilles tendonitis 01/24/2015 DVT, lower extremity, distal 01/24/2015 Coronary artery stenosis 07/13/2014 Overview (05/14/2022): [place] Coronary Artery Stenosis Benign essential hypertension 07/13/2014 Overview (05/14/2022): Last Assessment & Plan: Blood pressure goal less than 130/90. He is currently at goal. Benign Essential Hypertension Angina pectoris 07/13/2014 Overview (05/14/2022): Last Assessment & Plan: He is feeling better since his stent. Unclear reason why he had severe chest pain post stenting repeat angios at the time showed nothing bad. He has had some multiple episodes of atypical chest pains he probably has microvascular dysfunction on top of it. He also has a very low pain threshold. Continue current medical therapy. He needs to stop smoking completely I think that is contributing to his endothelial dysfunction and microvascular angina. We will leave him on his current medications and follow him up in a few months Angina Pectoris Presence of cardiac pacemaker 05/27/2014 Overview (05/14/2022): Cardiac Devices Pacemaker Present Hip pain 07/08/2011 Overview (05/14/2022): Hip pain Resolved Problems Problem Noted Date Diagnosed Date Resolved Date Altered mental status 12/26/20222022 Aspiration pneumonitis 12/26/202212/31 Pacemaker lead malfunction 12/26/2022 0 12/31/2022 Encounters Date Type Department Care Team Description 07/07/2024 3:30 PM EST Office Visit [facility] [place] [address] Memo Alex MD Abdominal pain, LLQ (Primary Dx) 06/16/2024 Patient Outreach [facility] [address] [place] [address] Memo Alex MD Medicare Annual Wellness Visit Initial (AWV scheduled) 06/14/2024 Refill [facility] [place] [place] [address] Memo Alex MD Chronic pain syndrome 05/24/2024 Telephone [facility] [place] [address] Memo Alex MD 05/21/2024 11:00 AM EST Telemedicine [facility] [place] [phone] 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, printing table worker pain syndrome 05/21/2024 Travel 05/21/2024 Telephone [facility] [place] [address] 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, RN Recommend Tele TERRITORY SALES MANAGER Tier 2 05/17/2024 Refill [facility] [place] [phone] Camille Alexandra NP 05/17/2024 Refill [facility] [place] [address] Memo Alex MD Chronic pain syndrome 05/17/2024 [place]ill [place] [address] Memo Alex MD Coronary artery disease involving alutiiq heart without angina pectoris, unspecified vessel or lesion type 04/27/2024 Refill [facility] [place] [phone] Memo Alex MD Choking, subsequent encounter 04/25/2024 Orders Only GENERIC EXTERNAL DATA DEPARTMENT Provider, Generic External Data 04/19/2024 Refill [facility] [address] [place] [phone] Memo Alex MD Chronic pain syndrome 04/19/2024 Refill [facility] [address] [place] [phone] Memo Alex MD 04/15/2024 Refill [facility] [address] [place] [phone] Memo Alex MD 04/12/2024 3:15 PM EST Office Visit [address] [phone] Memo Alex MD Atherosclerosis of alutiiq coronary artery of alutiiq heart with stable angina pectoris (CMS/HCC) (Primary Dx); Tobacco use; Chronic right shoulder pain; Rectal bleeding; Encounter for immunization 04/12/2024 Travel 04/09/[address] [phone] Shahla Claros, VON Results 04/06/2024 5:00 PM EDT Office Visit [facility] [address] [place] [phone] Liliya Manrique MD Rectal bleeding (Primary Dx); Left lower quadrant abdominal pain 04/06/[address] [phone] Memo Alex MD Nurse Triage from Last 3 Months Immunizations Name Administration Dates Next Due Influenza High-dose Quadriva lent Preservative Free 02/18/2023,02/21/2022,03/28/2021,02/07 Influenza injectable quadriv alent IIV4 with preservative 03/25/2017 Influenza injectable quadriv alent preservative free 02/15/2015,04/06/2014,02/25/2013,03/06,02/21/2011,02/15/2009 Influenza, IIV3, injectable 04/03/2018,0 02/15/2015,04/06/2014,02/25,03/06/2012,02/21/2011,03/13/2010 ,02/15/2009,04/10/2006 Influenza, seasonal, injecta ble, preservative free 03/12/2024,03/06/2016 Moderna Covid-19 Vaccine 12+ 10/17/2021,09/02/19 21,08/04/2020 Pfizer Covid-19 Vaccine 12+ 04/12/2024,0 07/10/2023,10/17/2021,05/07 Pfizer Covid-19 Vaccine 12+ Bivalent 03/14/2022 Pfizer Covid-19 Vaccine 12+ gamal-sucrose (Alfonso Cap) 10/17/2021 Pneumococcal Conjugate PCV 13 06/15/2018 Pneumococcal Conjugate PCV 20 03/26/2023 Pneumococcal Polysaccharide PPSV23 07/24/2013,,06/09/2007 TD (adult), 2 Lf tetanus tox oid, preservative free, adsorbed 02/02/2018 Tdap 01/19/2020,06/09/2007 Zoster, Recombinant 01/24/2022,12/05/2021,2021 Social History Tobacco Use Types Packs/Day Years [...] Orientation Straight 04/08/2022 10 :20 AM EDT Last Filed Vital Signs Vital Sign Reading [...] Mass Index 28.17 07/07/2024 3:29 PM EST Plan of Treatment Upcoming Encounters Date Type Department Care Team (Late st Contact Info) Description 08/06/2024 10:00 AM EST Telemedicine [facility] [address] [place] [phone] 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, RN Health Maintenance Due Date Last Done Comments CT Colonography 1953 FIT DNA/Cologuard 1955 FIT 1955 FOBT 1955 Sigmoidoscopy 1955 Hepatitis A Vaccines (1 of 2 - Risk 2-dose series) 1972 RSV Patients and Patients Aged 60 years or older (1 - Risk 60-74 years 1-dose series) 2013 Depression Screening 07/17/2024 07/17/2023, 07/17/19 24 SDOH Screening 07/17/2024 07/17/2023 Alcohol/Substance Use Screening 04/12/2025 04/12/2024 Tobacco Screening 07/07/2025 07/07/2024 Colonoscopy 03/04/2028 03/04/2023 Colorectal Cancer Screening 03/04/2028 Lipid Panel 01/01/2029 01/02/2024, 02/0 06/2023, 01/17/2022, Additional history exists DTaP/Tdap/Td Vaccines (4 - Td or Tdap) 01/18/2030 01/19/2020, 02/02/2018, 06/09/2007 Zoster Vaccines Completed 01/24/2022, 11/08, 11/20/2021 Pneumococcal Vaccine: 50+ Years Completed 03/26/2023, 06/15/2018, 07/24/2013, Additional history exists Hepatitis C Screening Completed 09/01/2023, 023 Influenza Vaccine Completed 03/12/2024, , 02/21/2022, Additional history exists COVID-19 Vaccine Completed 04/12/2024, 06/2023, 03/14/2022, Additional history exists HIB Vaccines Aged Out No longer eligi ble based on patient's age to complete this topic HPV Vaccines Aged Out No longer eligi ble based on patient's age to complete this topic Hepatitis B Vaccines Aged Out No long er eligible based on patient's age to complete this topic IPV Vaccines Aged Out No longer eligi ble based on patient's age to complete this topic Meningococcal Vaccine Aged Out No radha tamara eligible based on patient's age to complete this topic RSV under 20 months Aged Out No longe r eligible based on patient's age to complete this topic Rotavirus Vaccines Aged Out No longer eligible based on patient's age to complete this topic Procedures Procedure Name Priority Date/Time Associated Diagnosis Comments POCT HEMOGLOBIN Routine 07/07/2024 3:56 PM EST Abdominal pain, LLQ LACTIC ACID LAB USE ONLY Routine 04/25/2024 2:53 PM EST URINALYSIS WITH REFLEX MICROSCOPIC Routine 04/25/2024 2:51 PM EST BLOOD CULTURE (SECOND) Routine 1:28 PM EST SARS COV2/INFLUENZA A/B AND RSV RNA QL NAAT Routine 04/25/2024 1:28 PM EST HIGH SENSITIVITY TROPONIN I Routine 04/25/2024 12:34 PM EST APTT Routine 04/25/2024 12:34 PM EST PROTHROMBIN TIME-INR Routine 04/25/2024 12:34 PM EST SED RATE BY MODIFIED WESTERGREN Routine 04/25/2024 12:33 PM EST C-REACTIVE PROTEIN Routine 04/25/2024 12 :33 PM EST LACTIC ACID Routine 04/25/2024 12:33 PM EST COMPREHENSIVE METABOLIC PANEL Routine 04/25/2024 12:33 PM EST CBC WITH AUTO DIFFERENTIAL Routine 04/25/2024 12:33 PM EST BLOOD CULTURE (FIRST) Routine 04/25/2024 12:33 PM EST XR CHEST 1 VIEW Routine 04/25/2024 12:19 PM EST HEPATIC FUNCTION PANEL Routine 8:46 AM EDT Left lower quadrant abdominal pain SED RATE BY MODIFIED WESTERGREN Routine 04/07/2024 8:16 AM EDT Left lower quadrant abdominal pain CBC WITH AUTO DIFFERENTIAL Routine 04/07/2024 8:16 AM EDT Rectal bleeding Left lower quadrant abdominal pain POCT RAPID COVID ANTIGEN Routine 04/06/2024 5:56 PM EDT Left lower quadrant abdominal pain POCT INFLUENZA B (ID NOW RAPID MOLECULAR) Routine 04/06/2024 5:55 PM EDT Left lower quadrant abdominal pain POCT INFLUENZA A (ID NOW RAPID MOLECULAR) Routine 04/06/2024 5:55 PM EDT Left lower quadrant abdominal pain POCT HEMOGLOBIN Routine 04/06/2024 5:54 PM EDT Left lower quadrant abdominal pain LIPID PANEL, STANDARD Routine 01/02/2024 6:36 AM EDT HEPATITIS PANEL, GENERAL Routine 09/01/2023 11:55 AM EDT LLQ abdominal pain Encounter for screening for other viral diseases HM COLONOSCOPY Routine 03/04/2023 from Last 3 Months or Most Recently Relevant to Health Maintenance Results * POCT Hemoglobin (07/07/2024 3:56 PM EST) Only the most recent of2 resultswithin the time period is included. Hemoglobin 15.0 13.0 - 17.0 QC Media Lot # [id number] Lot# Expiration Date Blood 07/07/2024 3:56 PM EST Memo Alex MD POINT OF CARE TEST ENTER/EDIT OR DERABLES Final Result * Lactic Acid (04/25/2024 2:53 PM EST) [facility] Lactic Acid 1.0 0.5 - 2.0 mmol/L [facility] 04/25/2024 2:53 PM EST 04/25/2024 2:56 PM EST us Generic External Data Provider LAB BLOOD ORDERAB LES Final Result [facility] [address] [place] [phone] * Urinalysis w/reflex microscopic (04/25/2024 2:51 PM EST) Color Urine Dark Yellow [facility] Appearance Urine Clear [facility] PH 5.5 5.0 - 9.0 [facility] Glucose Urine UA Negative Negative mg/dL [facility] Urine Blood Negative Negative [facility] Specific [place] - Urine 1.025 1.005 - 1.025 [facility] Urine Protein Negative Neg-Trace mg/dL [facility] Urine Ketones Negative Negative mg/dL [facility] Nitrite Urine Negative Negative [facility] Leukocyte Esterase Urine Negative Negative [facility] 04/25/2024 2:51 PM EST 04/25/2024 2:56 PM EST Narrative [facility] - 04/25/2024 3:03 PM EST [id number], Clean Catch Generic External Data Provider LAB URINE ORDERAB LES Final Result Performing Organization Address [facility]/ZIP Co de Phone Number [facility] [address] [place] [phone] * Blood Culture (Second) (04/25/2024 1:28 PM EST) Blood Venous blood specimen / Unknown 04/25/2024 1:28 PM EST 04/25/2024 1:37 PM EST Comment:Blood [facility] - 04/30/2024 3:37 PM EST Blood Culture (Second) No growth after 5 days. Specimen Source: Blood us Generic External Data Provider LAB MICROBIOLOGY - GENERAL ORDERABLES Final Result Performing Organization Address City/[facility]/ZIP Co de Phone Number [facility] [address] [place] [phone] * SARS-CoV-2 RNA, Influenza A/B, and RSV RNA, Ql NAAT (04/25/2024 1:28 PM EST) Influenza A PCR NEGATIVE Negative [facility] Influenza B PCR NEGATIVE Negative [facility] Resp Syncy Virus RNA Qual PCR NEGATIVE Negative [facility] SARS COV2 PCR NEGATIVE Negative [facility] Comment:All test results mus t be correlated with clinical findings.Negative results do not preclude SARS-CoV2, influenza Avirus, influenza B virus and/or RSV infectionand should not be used as the sole basis for treatment orother patient management decisions. Negative results must becombined with clinical observations, patient history, andepidemiological information.This test has not been evaluated for monitoring treatment ofinfection.This test has been authorized by the FDA under an EmergencyUse Authorization (EUA) for use by authorized laboratories.Testing performed on the [email or web address] GeneXpert utilizingreal-time RT-PCR.All SARS CoV2 and positive influenza A/B results arereported to [facility]. 04/25/2024 1:28 PM EST 04/25/2024 1:37 PM EST Generic External Data Provider LAB MICROBIOLOGY - GENERAL ORDERABLES Final Result Performing Organization Address [facility] Co de Phone Number [facility] [address] [place] [phone] * High Sensitivity Troponin I (04/25/2024 12:34 PM EST) [facility] TROPONIN I HIGH SENSITIVITY <2.7 <3.5 - 35.0 ng/L [facility] Comment:The [place] high sens itivity Troponin-I results should beused in conjunction with other diagnostic information suchas ECG, clinical observations and information, and patientsymptoms to aid in the diagnosis of ME. 04/25/2024 12:3 4 PM EST 04/25/2024 12:39 PM EST Generic External Data Provider LAB BLOOD ORDERAB LES Final Result Performing Organization Address [facility] Co de Phone Number [facility] [address] [place] [phone] * Partial Thromboplastin Time, Activated (APTT) (04/25/2024 12:34 PM EST) [facility] Partial Thromboplastin Time 36.7 26.0 - 36.8 SEC [facility] Comment:For information rega rding the monitoring of direct thrombininhibitors, please refer to Pharmacy. 04/25/2024 12:3 4 PM EST 04/25/2024 12:39 PM EST us Generic External Data Provider LAB BLOOD ORDERAB LES Final Result Performing Organization Address [facility] Co de Phone Number [facility] [address] [place] [phone] * Prothrombin Time-INR (04/25/2024 12:34 PM EST) Prothrombin Time 10.9 10.9 - 12.4 SEC [facility] INTERNATIONAL NORM RATIO 0.9 0.9 - 1.1 [facility] Comment:INTERNATIONAL NORMAL IZED RATIO (INR) REFERENCE RANGES Reference RangeFor patients not on anticoagulant therapy: 0.9 - 1.1INR ranges for oral anticoagulanttherapy:For prevention and treatment of venous thrombosis and pulmonary embolism: 2.0 - 3.0For acute myocardial infarction with aspirin therapy: 2.0 - 3.0For acute myocardial infarction without aspirin therapy: 3.0 - 4.0For patients with mechanical prosthetic heart valves: 2.5 - 3.5 04/25/2024 12:3 4 PM EST 04/25/2024 12:39 PM EST us Generic External Data Provider LAB BLOOD ORDERAB LES Final Result Performing Organization Address [facility] Co de Phone Number [facility] [address] [place] [phone] * Blood Culture (First) (04/25/2024 12:33 PM EST) Blood Venous blood specimen / Unknown 04/25/2024 12:33 PM EST 04/25/2024 12:39 PM EST Comment:Blood Narrative [facility] - 04/30/2024 2:40 PM EST Blood Culture (First) No growth after 5 days. Specimen Source: Blood us Generic External Data Provider LAB MICROBIOLOGY - GENERAL ORDERABLES Final Result [facility] [address] [place] [address] [phone] * (ABNORMAL) CBC auto differential (04/25/2024 12:33 PM EST) Only the most recent of2 resultswithin the time period is included. White Blood Count 9.4 4.8 - 10.8 X10*3/uL [facility] Red Blood Count 4.45(L) 4.60 - 5.80 X10*6/uL [facility] Hemoglobin 13.6(L) 14.0 - 18.0 g/dl [facility] Hematocrit 40.1(L) 42.0 - 52.0 % [facility] Mean Corpuscular Volume 90.1 80.0 - 98.0 fL [facility] Mean Corpuscular Hemoglobin 30.6 27.0 - 33.0 pg [facility] Mean Corpuscular HGB Conc 33.9 31.0 - 36.0 g/dl [facility] Red Cell Distribution Width 13.0 11.0 - 16.0 % [facility] Platelet Count 301 160 - 400 X10*3/uL [facility] Mean Platelet Volume 8.4(L) 9.4 - 12.4 fL [facility] Neutrophils Percent Auto 58.4 45 - 73 % [facility] Imm Gran Pct Auto 0.4 0.0 - 0.4 % [facility] Lymphocytes Percent Auto 27.0 20 - 40 % [facility] Monocytes Percent Auto 7.8 2 - 11 % [facility] Eosinophils Percent Auto 5.3(H) 0 - 4 % [facility] Basophils Percent Auto 1.1 0 - 2 % [facility] NRBC Pct Auto 0.0 0.0 - 0.2 /100WBC [facility] Neutrophils Absolute Auto 5.5 2.0 - 8.3 x10*3/uL [facility] Imm Gran Abs Auto 0.04(H) 0.00 - 0.03 X10*3/uL [facility] Lymphocytes Absolute Auto 2.6 1.2 - 4.9 X10*3/uL [facility] Monocytes Absolute Auto 0.7 0.1 - 1.2 X10*3/uL [facility] Eosinophils Absolute Auto 0.5(H) 0.0 - 0.4 X10*3/uL [facility] Basophils Absolute Auto 0.1 0.0 - 0.2 X10*3/uL [facility] NRBC Abs Auto 0.000 0.0 - 0.012 X10*3/uL [facility] 04/25/2024 12:3 3 PM EST 04/25/2024 12:39 PM EST Generic External Data Provider LAB BLOOD ORDERAB LES Final Result Performing Organization Address [facility] Co de Phone Number [facility] [address] [place] [phone] * (ABNORMAL) Sed Rate by Modified [place] (04/25/2024 12:33 PM EST) Only the most recent of2 resultswithin the time period is included. Erythrocyte Sedimentation Rate 16(H) 0 - 15 MM/HR [facility] Comment:Patients with polycy themia and many hemoglobin abnormalitiesmay have depressed sed rates whereas patients with anemiamay have elevated sed rates. 04/25/2024 12:3 3 PM EST 04/25/2024 12:59 PM EST Generic External Data Provider LAB BLOOD ORDERAB LES Final Result Performing Organization Address [facility] Co de Phone Number [facility] [address] [place] [phone] * (ABNORMAL) C-reactive Protein (04/25/2024 12:33 PM EST) C Reactive Protein 1.32(H) < or = 0.50 mg/dL [facility] 04/25/2024 12:3 3 PM EST 04/25/2024 12:39 PM EST Generic External Data Provider LAB BLOOD ORDERAB LES Final Result Performing Organization Address [facility] Co de Phone Number [facility] [address] [place] [phone] * (ABNORMAL) Lactic Acid (04/25/2024 12:33 PM EST) Lactic Acid 2.1(HH) 0.5 - 2.0 mmol/L [facility] Comment:Critical value for L ACTIC: Results called to and read bruce: HUSSAIN Person calling: RADHIKA Date: 04/25/24 Time: 1300 04/25/2024 12:3 3 PM EST 04/25/2024 12:39 PM EST Entitle External Data Provider LAB BLOOD ORDERAB LES Final Result Performing Organization Address [facility] Co de Phone Number [facility] [address] [place] [phone] * (ABNORMAL) Comprehensive Metabolic Panel (04/25/2024 12:33 PM EST) Pathologist [facility] Sodium 137 135 - 145 mmol/L [facility] Potassium 4.2 3.3 - 5.1 mmol/L [facility] Chloride 103 96 - 108 mmol/L [facility] Carbon Dioxide 24 22 - 29 mmol/L [facility] Anion Gap 14 12 - 20 [facility] Urea Nitrogen (BUN) 18(H) 9 - 16 mg/dL [facility] Creatinine, Serum 0.69 0.5 - 1.4 mg/dL [facility] Creatinine Clr Calc Pharmacy 104.5 [facility] Comment:eGFR (calculated fro m the MDRD study equation) and eCrCl(calculated from the Cockcroft-Gault equation) are based ondifferent parameters and may not yield comparable results.If eCrCl result is absurd, please check patient'sheight/weight. Estimated Glomerular Filt Rate >60 [facility] Comment:Chronic Kidney Disea se: Estimated GFR < 60 mL/min/1.03w3Dynags Kidney Disease: Estimated GFR < 15 mL/min/1.73m2 Glucose 144(H) 60 - 115 mg/dL [facility] Calcium 9.1 8.4 - 10.2 mg/dL [facility] Bilirubin, Total 0.3 0.0 - 1.0 mg/dL [facility] Aspartate Amino Transferase 19 5 - 37 U/L [facility] Alanine Aminotransferase 11 0 - 40 U/L [facility] Total Protein 6.8 6.5 - 8.0 g/dL [facility] Albumin Level 4.0 3.5 - 5.0 g/dL [facility] Alkaline Phosphatase 93 39 - 117 U/L [facility] 04/25/2024 12:3 3 PM EST 04/25/2024 12:39 PM EST us Generic External Data Provider LAB BLOOD ORDERAB LES Final Result [facility] [address] [place] [phone] * XR Chest 1 View (04/25/2024 12:19 PM EST) Anatomical Region Laterality Modality Chest Radiographic Nilda ging 04/25/2024 12:1 9 PM EST Narrative 04/25/2024 2:10 PM EST ? [facility] ?[address] ?[place] [address] ?XRay Report ? Signed ? Patient: Myles Tipton ?MR#: [id number] ?? 5 ? : 1955 ?Acct:[id number] ? Age/Sex: 69 / M ?ADM Date: 11/17/24 ? Loc: HO.ED ? Attending Dr: ? Ordering Physician: Chuck Barnett ?? Date of Service: 04/25/24 ?? Procedure(s): XR chest 1V ?? Accession Number(s): [id number] ? cc: Chuck Barnett; Name,Memo ARREDONDO ? EXAMINATION: ?? XR CHEST ? CLINICAL INFORMATION: ?? Postoperative pneumonia. ? COMPARISON: ?? Most recent CT chest dated 07/31/2023. ? TECHNIQUE: ?? Frontal view of the chest was obtained. ? FINDINGS: ?? No airspace consolidation. No pleural effusion or pneumothorax. Stable ?? cardiomediastinal silhouette. Left chest wall pacer with its leads in ?? the right heart. ? XR/XR chest 1V ?? IMPRESSION: ?? No acute cardiopulmonary findings. ? Electronically signed by: ??Vidal Hurst MD ??04/25/2024 02:06 PM EST ?? RP ? Dictated By: ?Vidal Hurst MD ? Signed By: ?<Electronically signed by Vidal Hurst MD in OV> ?04/25/24 1406 ? DD/ 1219 ? TD/TT: 04/25/24 1302 ? Straw Hat Brim Raiser Operator: SR ? Procedure Note Donotuseinterpreter, Image - 04/25/[address] [address] XRay Report Signed Patient: Myles TiptonMR#: [id number] 5 : 3Acct:[id number] Age/Sex: 69 / MADM Date: 04/25/24 Loc: .ED Attending Dr: Ordering Physician: Chuck Barnett Date of Service: 04/25/24 Procedure(s): XR chest 1V Accession Number(s): [id number] cc: Chuck Barnett; Name,Memo ARREDONDO EXAMINATION: XR CHEST CLINICAL INFORMATION: Postoperative pneumonia. COMPARISON: Most recent CT chest dated 07/31/2023. TECHNIQUE: Frontal view of the chest was obtained. FINDINGS: No airspace consolidation. No pleural effusion or pneumothorax. Stable cardiomediastinal silhouette. Left chest wall pacer with its leads in the right heart. XR/XR chest 1V IMPRESSION: No acute cardiopulmonary findings. Electronically signed by: Vidal Hurst MD 04/25/2024 02:06 PM [facility] Dictated By: Vidal Hurst MD Signed By: <Electronically signed by Vidal Hurst MD in OV> 04/25/24 1406 DD/ 1219 TD/TT: 04/25/24 1302 Straw Hat Brim Raiser Operator: [facility] External Provider IMG XR PROCEDURES Edited Result - Final * Hepatic Function Panel (04/07/2024 8:46 AM EDT) Pathologist [facility] Bilirubin, Total 0.4 0.0 - 1.0 mg/dL [facility] Bilirubin, Direct 0.2 0.0 - 0.5 mg/dL [facility] Aspartate Amino Transferase 24 5 - 37 U/L [facility] Alanine Aminotransferase 14 0 - 40 U/L [facility] Total Protein 6.9 6.5 - 8.0 g/dL [facility] Albumin Level 4.0 3.5 - 5.0 g/dL [facility] Alkaline Phosphatase 77 39 - 117 U/L [facility] Blood Venous blood specimen / Unknown 04/07/2024 8:46 AM EDT 04/07/2024 11:23 AM EDT Result [facility] Liliya Manrique MD LAB BLOOD ORDERABLES Fin al Result [facility] [address] [place] [phone] * POCT Rapid Covid-19 BinaxNOW (04/06/2024 5:56 PM EDT) [facility] Rapid COVID Ag Negative QC Media Lot # [id number] Lot# Expiration Date [id number] Swab 04/06/2024 5:56 PM EDT Result [facility] Liliya Manrique MD POINT OF CARE TEST ENTER /EDIT ORDERABLES Final Result * POCT Rapid Influenza B [place] ID NOW (04/06/2024 5:55 PM EDT) Influenza B Negative Negative, Indeterminate [facility] QC Media Lot # [id number] [facility] Lot# Expiration Date [facility] Swab 04/06/2024 5:55 PM EDT us Liliya Manrique MD POINT OF CARE TEST ENTER /EDIT ORDERABLES Final Result Performing Organization Address City/[facility]/ZIP Co de Phone Number [facility] [address] [place] [phone] * POCT Rapid Influenza A [place] ID NOW (04/06/2024 5:55 PM EDT) Influenza A Negative Negative, Indeterminate [facility] QC Media Lot # [id number] [facility] Lot# Expiration Date [facility] Swab 04/06/2024 5:55 PM EDT us Liliya Manrique MD POINT OF CARE TEST ENTER /EDIT ORDERABLES Final Result Performing Organization Address City/[facility]/ZIP Co de Phone Number [facility] [address] [place] [phone] * Lipid Panel, Standard (01/02/2024 6:36 AM EDT) Triglycerides 112 <150 mg/dL [facility] Comment:Desirable Triglyceri de: less than 150 mg/dLBorderline High Triglyceride 150-199 mg/dLHigh Triglyceride: 200-499 mg/dLVery High Triglyceride: greater than or equal to 5OO mg/dL Cholesterol 154 <200 mg/dL [facility] Comment:Desirable Cholestero l: less than 200 mg/dLBorderline High Cholesterol: 200-239 mg/dLHigh Cholesterol: greater than 239 mg/dL LDL Cholesterol Calculated 83 <100 mg/dL [facility] Comment:Desirable LDL: less than 100 mg/dLNear Optimal/Above Optimal LDL: 110- 129 mg/dLBorderline High LDL: 130-159 mg/dLHigh LDL: 160-189 mg/dLVery High LDL: greater than or equal to 190 mg/dL HDL Cholesterol 49 >40 mg/dL [facility] Comment:Desirable HDL: great er than 40 mg/dL Note: This HDL assay may give artificially low results in patients with liver disease. 01/02/2024 6:36 AM EDT 01/02/2024 6:36 AM EDT us Generic External Data Provider LAB BLOOD ORDERAB LES Final Result Performing Organization Address [facility]/ZIP Co de Phone Number [facility] [address] [place] [phone] * Hepatitis Panel, General (09/01/2023 11:55 AM EDT) Hepatitis A IgM Nonreactive Nonreactive [facility] Comment:IgM antibodies to LANDEROS V not detected; does not exclude earlyacute or recovered HAV infection. ~Hepatitis B Surface Antibody REACTIVE Nonreactive [facility] Comment:REACTIVE: > 11.99 mI U/mL Hepatitis B Core Antibody Nonreactive Nonreactive [facility] Hepatitis C Antibody Nonreactive Nonreactive [facility] Comment:Antibodies to HCV no t detected; does not exclude early acuteHCV infection. Hepatitis B Surface Ag Negative Negative [facility] Blood 09/01/2023 11:5 5 AM EDT 09/01/2023 1:48 PM EDT Sonia Ladd PIN DRAFTER OPERATOR LAB BLOOD ORDERABLES Final Res ult Performing Organization Address [facility]/ZIP Co de Phone Number [facility] [address] [place] [phone] * Colonoscopy (03/04/2023) Colonoscopy Normal Normal Comment:Negative result, Rep eat in 3-5 years Memo Alex MD HEALTH MAINTENANCE Final Result from Last 3 Months or Most Recently Relevant to Health Maintenance Insurance [facility] STAND[employer] MEDICARE Care Teams Mixing Pan Tender Relationship Specialty Start Date End Date Name, MD Memo [address] [place] [address] PCP - General Family Medicine 08/30/15
--- OUTSIDE RECORDS SUMMARY | 2024-07-07 17:46 | XMS_ITS | Encounter Summary ---
Author Organization [employer] Address [address] [place] [address] 7 [place] [address] Care Team Providers Care Network Account Manager Name Role Phone Name, Memo ARREDONDO Primary Care Provider [phone] Reason for Visit * Reason Comments Med Refill Encounter Details Date Type Department Care Team ([facility] st Contact Info) Description 02/03/2024 Refill [facility] [address] [place], [place] [phone] Name, MD Memo [address] [place] [address] Chronic pain syndrome Social History Tobacco Use [...] EST Telemedicine [facility] [address] [place] [address] 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 RN documented as of this encounter Visit Diagnoses Diagnosis Chronic pain syndrome documented in this encounter Additional Health Concerns Assessment Noted Time PHQ-9 Depression Total Score: 0 07/17/19 24 10:49 AM EST documented as of this encounter Care Teams Network Account Manager Relationship Specialty Start Date End Date Name, MD Memo [address] [place] [address] PCP - General Family Medicine 08/30/15 documented as of this encounter
--- OUTSIDE RECORDS SUMMARY | 2024-07-07 17:47 | XMS_ITS | Encounter Summary ---
Author Organization [employer] Address [address] [place] [address] 7 [place] [address] Care Team Providers Care Generalist Name Role Phone Name, Memo ARREDONDO Primary Care Provider [phone] Reason for Visit * Reason Onset Date Comments Error 03/25/2024 Encounter Details Date Type Department Care Team ([facility] Contact Info) Description 03/25/2024 Telephone [facility] [address] [place], [place] [phone] Name, MD Memo [address] [place] [address] Error Social History Tobacco Use Types Packs/Day Years [...] 08/06/2024 10:00 AM EST Telemedicine [facility] [address] [place] [address] 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 RN documented as of this encounter Visit Diagnoses Not on filedocumented in this encounter Additional Health Concerns Assessment Noted Time PHQ-9 Depression Total Score: 0 07/17/19 24 10:49 AM EST documented as of this encounter Care Teams Generalist Relationship Specialty Start Date End Date Name, MD Memo [address] [place] [address] PCP - General Family Medicine 08/30/15 documented as of this encounter
--- OUTSIDE RECORDS SUMMARY | 2024-07-07 17:47 | XMS_ITS | Encounter Summary ---
Author Organization [employer] Address [address] [place] [address] 7 [place] [address] Care Team Providers Care Packing And Shipping Clerk Name Role Phone Name, Memo ARREDONDO Primary Care Provider [phone] Reason for Visit * Reason Comments Med Refill Encounter Details Date Type Department Care Team ([facility] st Contact Info) Description 03/23/2024 Refill [facility] [address] [place], [place] [phone] Name, MD Memo [address] [place] [address] Social History Tobacco Use Types Packs/Day Years [...] 08/06/2024 10:00 AM EST Telemedicine [facility] [address] [place] [address] 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 RN documented as of this encounter Visit Diagnoses Not on filedocumented in this encounter Additional Health Concerns Assessment Noted Time PHQ-9 Depression Total Score: 0 07/17/19 24 10:49 AM EST documented as of this encounter Care Teams Packing And Shipping Clerk Relationship Specialty Start Date End Date Name, MD Memo [address] [place] [address] PCP - General Family Medicine 08/30/15 documented as of this encounter
--- OUTSIDE RECORDS SUMMARY | 2024-07-07 17:47 | XMS_ITS | Encounter Summary ---
Author Organization [email or web address] Address [address] [place] [address] [address] [place] [address] Care Team Providers Care Workers Compensation Analyst Name Role Phone Name, Memo ARREDONDO Primary Care Provider [phone] Encounter Details Date Type Department Care Team (Late Contact Info) Description [facility] [address] [place], [place] [phone] Name, MD Memo [address] [place], [place] [phone] Social History Tobacco Use Types Packs/Day Years [...] suspected to have Coronavirus/COVID-19? No / Unsure 11/13/2022 5:51 PM EDT documented as of this encounter Plan of Treatment Upcoming Encounters Date Type Department Care Team (Late Contact Info) Description 08/06/2024 10:00 AM EST Telemedicine [facility] [address] [place], [place] [phone] 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, RN documented as of this encounter Visit Diagnoses Not on filedocumented in this encounter Additional Health Concerns Assessment Noted Time PHQ-9 Depression Total Score: 9 06/27/19 23 10:17 AM EST documented as of this encounter Care Teams Workers Compensation Analyst Relationship Specialty Start Date End Date Name, MD Memo [address] [place] [address] PCP - General Family Medicine 08/30/15 documented as of this encounter
[2024-07-07 18:08] LABS: Alanine Aminotransferase 13 U/L (0-40); Albumin Level 4.2 g/dL (3.5-5.0); Alkaline Phosphatase 79 U/L (39-117); Anion Gap 12 (12-20); Aspartate Amino Transferase 19 U/L (5-37); Bilirubin Total 0.2 mg/dL (0.0-1.0); Blood Urea Nitrogen 20 mg/dL (9-16); Calcium 8.7 mg/dL (8.4-10.2); Carbon Dioxide 25 mmol/L (22-29); Chloride 105 mmol/L (96-108); Estimated Glomerular Filt Rate > 60; Glucose Random 88 mg/dL (60-115); Potassium 4.2 mmol/L (3.3-5.1); Sodium 138 mmol/L (135-145); Total Protein 7.5 g/dL (6.5-8.0)
[2024-07-07 18:21] LABS: Basophils Absolute Auto 0.1 X10*3/uL (0.0-0.2); Eosinophils Absolute Auto 0.8 X10*3/uL (0.0-0.4); Eosinophils Percent Auto 7.6 % (0-4); Hematocrit 42.4 % (42.0-52.0); Hemoglobin 14.3 g/dl (14.0-18.0); Imm Gran Abs Auto 0.06 X10*3/uL (0.00-0.03); Imm Gran Pct Auto 0.6 % (0.0-0.4); Lymphocytes Absolute Auto 2.7 X10*3/uL (1.2-4.9); Lymphocytes Percent Auto 25.4 % (20-40); Mean Corpuscular HGB Conc 33.7 g/dl (31.0-36.0); Mean Corpuscular Hemoglobin 30.3 pg (27.0-33.0); Mean Corpuscular Volume 89.8 fL (80.0-98.0); Monocytes Percent Auto 9.3 % (2-11); Neutrophils Absolute Auto 5.9 x10*3/uL (2.0-8.3); Neutrophils Percent Auto 56.1 % (45-73); Platelet Count 404 X10*3/uL (160-400); Red Blood Count 4.72 X10*6/uL (4.60-5.80); Red Cell Distribution Width 12.8 % (11.0-16.0); White Blood Count 10.5 X10*3/uL (4.8-10.8)
== END 2024-07-07 16:07 | disposition home or self-care (01) ==
LOC: HO.HHCL 16:06
PROVIDERS: Visit Provider Internal Medicine Geriatric Medicine
DX: R10.32 Left lower quadrant pain (principal)
CPT/HCPCS: 36415; 80053; 85025

== ENCOUNTER 2024-07-08 18:39 | Emergency (ER) | payer MEDICARE, MEDICAID, SELFPAY ==
--- NOTE | ~2024-07-08 | CT_ITS ---
CLINICAL HISTORY: LLQ pain CT abdomen and pelvis with contrast Comparison: CT - CT ABDOMEN PELVIS W IV CON - 07/08/24 21:57 EST Findings: No consolidation or effusion. Cystic changes in right lower lobe. Gallbladder is surgically absent. Stable mild intrahepatic biliary ductal dilatation in left lobe more than right. Common bile duct is not dilated. Interval resolution of intrahepatic pneumobilia in the left hepatic lobe. Stable calcification of the dome of the liver likely a granuloma. The spleen, pancreas and adrenal glands appear unremarkable. Enhancement of bilateral kidneys with no ureteral stones and no hydronephrosis hydroureter. Nonspecific minimal bilateral perinephric stranding. No bowel obstruction, pneumoperitoneum, or pneumatosis. Appendix not identified. No pericecal inflammatory changes. Mild diverticulosis. Small duodenal diverticulum. Wall thickening of sigmoid colon and rectum similar to previous examination with no adjacent fat stranding. Prostate stable in size. Stable prominence of seminal vesicles. Urinary bladder is unremarkable. No free fluid. Atherosclerotic vascular disease with no aneurysm of the abdominal aorta. No acute fracture. Stable degenerative changes of the spine and previous right hip arthroplasty. IMPRESSION: 1. Circumferential wall thickening of sigmoid colon and rectum also seen on previous examination. No adjacent fat stranding in this could be a chronic finding. 2. Previous cholecystectomy with stable mild intrahepatic biliary ductal dilatation. Common bile duct is normal. 3. Diverticulosis and additional nonacute findings as described. This document has been electronically signed by: Lani Muse MD on 07/08/2024 22:59:48
[2024-07-08 18:53] VITALS: BP 148/81; PULSE 64; RESP 18; TEMP 36.3; O2SAT 96; BMI 28.6
--- NOTE | 2024-07-08 18:53 | ED.GENADULT ---
HPI - General Adult General Chief complaint: Abdominal Pain Stated complaint: diverticulitis set by PCP Time Seen by Provider: 07/08/24 22:14 Source: patient Limitations: no limitations History of Present Illness ED Provider: Kathy Lockett PA-C HPI narrative: 69-year-old male with a history of hypertension, coronary artery disease, sick sinus rhythm status post pacer, paroxysmal AFib on apixaban, peripheral arterial disease, presents with the abdominal pain x5 days. Pain over left lower quadrant, is nonradiating, the discomfort fluctuates in intensity. Pain described as sharp cramping at times. Associated nausea but no vomiting. Denies diarrhea or fever. Denies dysuria, hematuria or history of kidney stones. Related Data Home Medications ?Medication ?Instructions ?Recorded ?Confirmed rosuvastatin 40 mg tablet (Crestor) 40 mg PO BEDTIME chloestrol 04/25/20 05/04/24 oxycodone 10 mg tablet 10 mg PO Q5H PRN Moderate Pain 04/26/20 05/04/24 (Scale Score 5-6) divalproex 250 mg tablet,extended 250 mg PO BEDTIME 09/08/20 05/04/24 release 24 hr (Depakote ER) ezetimibe 10 mg tablet (Zetia) 10 mg PO DAILY 10/24/20 05/04/24 multivitamin (Daily Vitamin 1 tab PO DAILY 10/24/20 05/04/24 Formula tablet) ranolazine 1,000 mg 1,000 mg PO BID 09/10/22 05/04/24 tablet,extended release,12 hr lisinopril 5 mg tablet 5 mg PO DAILY 12/09/22 05/04/24 pantoprazole 40 mg tablet,delayed 40 mg PO 09/12/23 05/04/24 release Previous Rx's ?Medication ?Instructions ?Recorded hyoscyamine sulfate 0.125 mg 0.125 mg PO BID-QID PRN dyspepsia 06/23/23 disintegrating tablet #30 tabs nitroglycerin 0.4 mg sublingual 0.4 mg sublingual Q5M PRN chest 06/23/23 tablet (Nitrostat) pain #25 tabs ondansetron 4 mg disintegrating 4 mg PO Q8H PRN nausea and 09/02/23 tablet vomiting #20 tabs mesalamine 0.375 gram 1.5 g (4 x 0.375 gram) PO QAM #120 09/12/23 capsule,extended release 24 hr caps (Apriso) apixaban 5 mg tablet (Eliquis) 5 mg PO BID 90 days #180 tabs 01/01/24 amlodipine 10 mg tablet 10 mg PO DAILY #90 tabs 02/03/24 metoprolol tartrate 100 mg tablet See Rx Instructions .Route 04/12/24 .COMPLEX #180 tabs esomeprazole magnesium 40 mg 40 mg PO QAM #30 caps 04/15/24 capsule,delayed release isosorbide mononitrate 60 mg 60 mg PO DAILY #90 tabs 04/15/24 tablet,extended release 24 hr Allergies Allergy/AdvReac Type Severity Reaction Status Date / Time bee pollen [BEE STINGS] Allergy Severe ANAPHYLAXIS Verified 07/08/24 18:55 indomethacin [Indocin] Allergy Severe anaphylaxis Verified 07/08/24 18:55 tramadol [Ultram] Allergy Severe anaphylaxis Verified 07/08/24 18:55 fentanyl AdvReac Anxiety Verified 07/08/24 18:55 Review of Systems Review of Systems: Yes all other systems are reviewed and are negative Constitutional: Constitutional: Denies fatigue and Denies fever(s) Cardiovascular: Cardiovascular: Denies chest pain and Denies dyspnea Respiratory: Respiratory: Denies cough and Denies dyspnea Gastrointestinal: Gastrointestinal: Reports abdominal pain, Reports GI cramping, Denies diarrhea, Reports nausea and Denies vomiting Genitourinary: Genitourinary: Denies hematuria and Denies dysuria Endocrine: Endocrine: Denies fatigue [facility] Past Medical History Attestation statement: The following information was validated with the patient. Medical History Nicotine dependence, cigarettes, uncomplicated Elevated cholesterol History of chemotherapy Obstructive sleep apnea (~2018) On anticoagulant therapy DVT (deep venous thrombosis) Essential hypertension Tubular adenoma of colon COVID-19 vaccine administered Seizures (~04/2020) GERD (gastroesophageal reflux disease) Esophagitis Atherosclerotic cardiovascular disease Brain lesion Psychotic disorder Syncope Headache Myocardial infarction Pacemaker (~05/2013) Tremor Brain bleed CAD (coronary artery disease) Surgical History Hx of shoulder surgery History of total left knee replacement History of ERCP History of spinal surgery History of colonoscopy (~09/2020) History of right knee surgery (~12/2013) History of total right hip replacement (~06/2012) History of cholecystectomy History of cardiac catheterization History of permanent cardiac pacemaker placement (~05/2013) History of esophagogastroduodenoscopy (EGD) (~09/2020) History of appendectomy Stented coronary artery Family History Family History Father Heavy cigarette smoker Throat cancer Mother Heart disease Social History Social History Household Members: None Household Members Other:: shares house with a friend Housing: House Are you a primary career and transition teacher to a significant other at home: No Do you presently have visiting nurse or other home services: No Alcohol intake: never Comment: resting eyes closed Patient Tobacco Use Status: Former Tobacco user Tobacco use type: Cigarette Years Smoked: 8 +/- Smoked in Last 30 Days: Yes e-Cigarette/Vaping Use: Never Used Second Hand Smoke Exposure: No Use of substances other than those prescribed or required for medical reasons: No Advance Directives: Yes Advance Directives Information Provided: Yes Advance Directives on File: No Advance Directives Date on File: 12/16/20 service: No Current occupational status: employed and retired Physical Exam ED Vital Signs: Vital Signs - 24 hr 07/08/24 18:53 07/08/24 21:27 Temperature 97.3 F 97.7 F Pulse Rate 64 62 Respiratory Rate 18 20 Blood Pressure 148/81 H 147/73 H Pulse Oximetry 96 98 Oxygen Delivery Method Room Air Room Air BMI result Body Mass Index 28.6 Const Other: Alert Orientation/consciousness: patient oriented x3 Resp Effort & Inspection: normal respiratory effort Cardio Other: Normal peripheral perfusion GI Other: Abdomen is soft, nondistended, moderate tenderness left lower quadrant with a mild involuntary guarding Skin Other: Warm dry no rash Neuro General: patient oriented x3, gait normal, no focal motor deficits and CN's II-XI intact bilaterally Psych Other: Cooperative Course Course Course Narrative: ELLA, this is a rapid medical exam performed by Elroy Savage please refer to primary provider for complete H&P- 69-year-old male presents for evaluation of left lower abdominal pain. Has a history of diverticulitis. The patient takes Eliquis for history of AFib. Medications Administered Discontinued Medications Generic Name Dose Route Start Last Admin Trade Name Jericho PRN Reason Stop Dose Admin Iohexol 85 ml 07/08/24 22:09 07/08/24 22:09 Iohexol 350 Mg/Ml 100 Ml Infus..Btl IV 07/08/24 22:10 85 ml ONCE ONE Administration Medical Decision Making Medical Decision Making MDM Narrative: 69-year-old male with a history of hypertension, coronary artery disease, sick sinus rhythm status post pacer, paroxysmal AFib on apixaban, peripheral arterial disease, presents with the abdominal pain x5 days. Pain over left lower quadrant, is nonradiating, the discomfort fluctuates in intensity. Pain described as sharp cramping at times. Associated nausea but no vomiting. Denies diarrhea or fever. Denies dysuria, hematuria or history of kidney stones. Problem: Hypertension, vascular disease, arrhythmia History: Per patient I have considered the following differential diagnoses: Diverticulitis, renal colic, UTI, bowel obstruction, constipation Plan: Given distribution of discomfort I am considering diverticulitis, screening labs including a CT scan were already obtained from triage. We will be giving Zofran morphine and IV fluid. Thought about renal colic and UTI, however he has no related symptoms, CT pending. Thought about bowel obstruction, however he currently does not have obstructive symptoms, denies constipation and active vomiting. I have independently reviewed the following tests: Labs: No leukocytosis, not anemic, no electrolyte abnormality noted, urine not infected CT abdomen and pelvis:IMPRESSION: 1. Circumferential wall thickening of sigmoid colon and rectum also seen on previous examination. No adjacent fat stranding in this could be a chronic finding. 2. Previous cholecystectomy with stable mild intrahepatic biliary ductal dilatation. Common bile duct is normal. 3. Diverticulosis and additional nonacute findings as described. This document has been electronically signed by: Lani Muse MD on 07/08/2024 22:59:48 I have viewed the scan myself he is constipated Lab Data 07/08/24 19:20 07/08/24 19:20 Labs: Lab Results 07/08/24 Range/Units 19:20 WBC 9.5 (4.8-10.8) X10*3/uL RBC 4.40 L (4.60-5.80) X10*6/uL Hgb 13.3 L (14.0-18.0) g/dl Hct 39.0 L (42.0-52.0) % MCV 88.6 (80.0-98.0) fL MCH 30.2 (27.0-33.0) pg MCHC 34.1 (31.0-36.0) g/dl RDW 12.8 (11.0-16.0) % Plt Count 316 (160-400) X10*3/uL MPV 8.4 L (9.4-12.4) fL Immature Gran % (Auto) 0.4 (0.0-0.4) % Neut % (Auto) 52.4 (45-73) % Lymph % (Auto) 28.7 (20-40) % [place]asper % (Auto) 8.5 (2-11) % Eos % (Auto) 8.9 H (0-4) % Baso % (Auto) 1.1 (0-2) % Lymph # (Auto) 2.7 (1.2-4.9) X10*3/uL [place] # (Auto) 0.8 (0.1-1.2) X10*3/uL Eos # (Auto) 0.8 H (0.0-0.4) X10*3/uL Baso # (Auto) 0.1 (0.0-0.2) X10*3/uL Abs Immat Gran (auto) 0.04 H (0.00-0.03) X10*3/uL Absolute Neuts (auto) 5.0 (2.0-8.3) x10*3/uL Absolute Nucleated RBC 0.000 (0.0-0.012) X10*3/uL Nucleated RBC % (auto) 0.0 (0.0-0.2) /100WBC Sodium 138 (135-145) mmol/L Potassium 4.2 (3.3-5.1) mmol/L Chloride 104 (96-108) mmol/L Carbon Dioxide 25 (22-29) mmol/L Anion Gap 13 (12-20) BUN 17 H (9-16) mg/dL Creatinine 0.77 (0.5-1.4) mg/dL Estim Creat Clear Calc 102.4 Estimated GFR > 60 Random Glucose 118 H (60-115) mg/dL Lactic Acid 1.1 (0.5-2.0) mmol/L Calcium 8.7 (8.4-10.2) mg/dL Total Bilirubin 0.2 (0.0-1.0) mg/dL AST 22 (5-37) U/L ALT 16 (0-40) U/L Alkaline Phosphatase 82 (39-117) U/L Total Protein 7.0 (6.5-8.0) g/dL Albumin 3.9 (3.5-5.0) g/dL Lipase 19 (8-78) U/L Urine Color Yellow Urine Appearance Clear Urine pH 5.5 (5.0-9.0) Ur Specific [place] 1.015 (1.005-1.025) Urine Protein Negative (Neg-Trace) mg/dL Urine Glucose (UA) Negative (Negative) mg/dL Urine Ketones Negative (Negative) mg/dL Urine Blood Negative (Negative) Urine Nitrite Negative (Negative) Ur Leukocyte Esterase Negative (Negative) Urine RBC 0-2 (0-2) /HPF Urine WBC 0-5 (0-5) /HPF Ur Squamous Epith Cells 0-2 (0-2) /HPF Urine Bacteria None Seen (None Seen) Hyaline Casts 0-2 (0-2) /LPF Discharge Plan Discharge Clinical Impression: Constipation Patient Disposition: Home, Self-Care Instructions: Constipation (ED) Additional Instructions: All of your labs were normal, the CT scan revealed that you are constipated. See home care instructions. Use [id number] Colace, 1 to 2 times a day. In addition use uvzp-qwe-bjzjsec MiraLax, 1 to 2 times a day, until you begin having multiple large volume bowel movements. Follow up with your primary care provider as needed. Prescriptions: No Action hyoscyamine sulfate 0.125 mg tablet,disintegrating 0.125 mg PO BID-QID PRN (Reason: dyspepsia) Qty: 30 0RF nitroglycerin [Nitrostat] 0.4 mg tablet, sublingual 0.4 mg sublingual Q5M PRN (Reason: chest pain) Qty: 25 2RF Rx Instructions: Do not exceed 3 doses per chest pain episode amlodipine 10 mg tablet 10 mg PO DAILY Qty: 90 3RF metoprolol tartrate 100 mg tablet See Rx Instructions .ROUTE .COMPLEX Qty: 180 3RF Dose Instruction: TAKE 1 TABLET BY MOUTH TWICE DAILY IN THE MORNING AND IN THE EVENING Rx Instructions: TAKE 1 TABLET BY MOUTH TWICE DAILY IN THE MORNING AND IN THE EVENING esomeprazole magnesium 40 mg capsule,delayed release(DR/EC) 40 mg PO QAM Qty: 30 3RF isosorbide mononitrate 60 mg tablet extended release 24 hr 60 mg PO DAILY Qty: 90 3RF rosuvastatin [Crestor] 40 mg tablet 40 mg PO BEDTIME oxycodone 10 mg Tablet 10 mg PO Q5H PRN (Reason: Moderate Pain (Scale Score 5-6)) divalproex [Depakote ER] 250 mg tablet extended release 24 hr 250 mg PO BEDTIME ranolazine 1,000 mg tablet extended release 12 hr 1,000 mg PO BID ondansetron 4 mg tablet,disintegrating 4 mg PO Q8H PRN (Reason: nausea and vomiting) Qty: 20 0RF ezetimibe [Zetia] 10 mg tablet 10 mg PO DAILY multivitamin [Daily Vitamin Formula] Tablet 1 tab PO DAILY lisinopril 5 mg tablet 5 mg PO DAILY pantoprazole 40 mg tablet,delayed release (DR/EC) 40 mg PO mesalamine [Apriso] 0.375 gram capsule,extended release 24hr 1.5 g PO QAM Qty: 120 0RF Eliquis 5 mg tablet 5 mg PO BID 90 Days Qty: 180 3RF Print Language: Chinese
[2024-07-08 19:25] LABS: MANUAL DIFF FLAG NO
[2024-07-08 19:26] LABS: Basophils Absolute Auto 0.1 X10*3/uL (0.0-0.2); Basophils Percent Auto 1.1 % (0-2); Eosinophils Absolute Auto 0.8 X10*3/uL (0.0-0.4); Eosinophils Percent Auto 8.9 % (0-4); Hemoglobin 13.3 g/dl (14.0-18.0); Imm Gran Abs Auto 0.04 X10*3/uL (0.00-0.03); Imm Gran Pct Auto 0.4 % (0.0-0.4); Lymphocytes Absolute Auto 2.7 X10*3/uL (1.2-4.9); Lymphocytes Percent Auto 28.7 % (20-40); Mean Corpuscular HGB Conc 34.1 g/dl (31.0-36.0); Mean Corpuscular Hemoglobin 30.2 pg (27.0-33.0); Mean Corpuscular Volume 88.6 fL (80.0-98.0); Mean Platelet Volume 8.4 fL (9.4-12.4); Monocytes Absolute Auto 0.8 X10*3/uL (0.1-1.2); Monocytes Percent Auto 8.5 % (2-11); Neutrophils Percent Auto 52.4 % (45-73); Platelet Count 316 X10*3/uL (160-400); Red Cell Distribution Width 12.8 % (11.0-16.0); White Blood Count 9.5 X10*3/uL (4.8-10.8)
[2024-07-08 19:28] LABS: Appearance Urine Clear; Color Urine Yellow; Glucose Urine UA Negative (Negative); Leukocyte Esterase Urine Negative (Negative); Nitrite Urine Negative (Negative); PH 5.5 (5.0-9.0); Specific Gravity - Urine 1.015 (1.005-1.025); Urine Blood Negative (Negative); Urine Ketones Negative (Negative); Urine Protein Negative (Neg-Trace)
[2024-07-08 19:30] LABS: Bacteria Urine None Seen (None Seen); Hyaline Casts Urine 0-2 /LPF (0-2); RBC Urine 0-2 /HPF (0-2); Squamous Epithelial Cell Urine 0-2 /HPF (0-2); WBC Urine 0-5 /HPF (0-5)
[2024-07-08 19:49] LABS: Lactic Acid 1.1 mmol/L (0.5-2.0)
[2024-07-08 19:50] LABS: Alanine Aminotransferase 16 U/L (0-40); Albumin Level 3.9 g/dL (3.5-5.0); Anion Gap 13 (12-20); Aspartate Amino Transferase 22 U/L (5-37); Bilirubin Total 0.2 mg/dL (0.0-1.0); Blood Urea Nitrogen 17 mg/dL (9-16); Calcium 8.7 mg/dL (8.4-10.2); Carbon Dioxide 25 mmol/L (22-29); Chloride 104 mmol/L (96-108); Creatinine Clr Calc Pharmacy 102.4; Estimated Glomerular Filt Rate > 60; Glucose Random 118 mg/dL (60-115); Lipase 19 U/L (8-78); Potassium 4.2 mmol/L (3.3-5.1); Sodium 138 mmol/L (135-145)
[2024-07-08 20:26] LABS: Alkaline Phosphatase 82 U/L (39-117)
[2024-07-08 21:27] VITALS: BP 147/73; PULSE 62; RESP 20; TEMP 36.5; O2SAT 98
--- OUTSIDE RECORDS SUMMARY | 2024-07-08 21:40 | XMS_ITS | Encounter Summary ---
Author Organization [employer] Address [address] [place] [address] 7 [place] [address] Care Team Providers Care Documentation Lead Name Role Phone Name, Memo ARREDONDO Primary Care Provider [phone] Encounter Details Date Type Department Care Team ([facility] Contact Info) Description 06/06/[address] [facility] MEDICINE [address] [place] [id number] Name, MD Memo [address] [place] [address] Social History Tobacco Use Types Packs/Day Years [...] Info) Description 08/06/2024 10:[address] [facility]INE [address] [place] [address] 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 RN documented as of this encounter Visit Diagnoses Not on filedocumented in this encounter Care Teams Documentation Lead Relationship Specialty Start Date End Date Name, MD Memo [address] [place] [address] PCP - General Family Medicine 08/30/15 documented as of this encounter
--- OUTSIDE RECORDS SUMMARY | 2024-07-08 21:40 | XMS_ITS | Encounter Summary ---
Author Organization [employer] Address [address] [place] [address] 7 [place] [address] Care Team Providers Care Spot Sprayer Name Role Phone Name, Memo ARREDONDO Primary Care Provider [phone] Reason for Visit * Reason Comments Med Refill Encounter Details Date Type Department Care Team ([facility] st Contact Info) Description 02/03/2024 Refill [facility] MEDICINE [address] [place], [place] [phone] Name, MD Memo [address] [place] [address] Chronic pain syndrome Social History Tobacco Use [...] Info) Description 08/06/2024 10:00 AM EST Telemedicine [facility]INE [address] [place] [address] 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 RN documented as of this encounter Visit Diagnoses Diagnosis Chronic pain syndrome documented in this encounter Additional Health Concerns Assessment Noted Time PHQ-9 Depression Total Score: 0 07/17/19 24 10:49 AM EST documented as of this encounter Care Teams Spot Sprayer Relationship Specialty Start Date End Date Name, MD Memo [address] [place] [address] PCP - General Family Medicine 08/30/15 documented as of this encounter
--- OUTSIDE RECORDS SUMMARY | 2024-07-08 21:40 | XMS_ITS | Encounter Summary ---
Author Organization [employer] Address [address] [place] [address] 7 [place] [address] Care Team Providers Care Chrome Worker Name Role Phone Name, Memo ARREDONDO Primary Care Provider [phone] Encounter Details Date Type Department Care Team (Latest Contact Info) Description 07/09/2021 Abstract [facility] CONVERSIONS Dental, Provider, DDS Social History [...] Info) Description 08/06/2024 10:00 AM EST Telemedicine [facility] MEDICINE [address] [place] [address] 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, RN documented as of this encounter Visit Diagnoses Not on filedocumented in this encounter Care Teams Chrome Worker Relationship Specialty Start Date End Date Name, MD Memo [address] [place] [address] PCP - General Family Medicine 08/30/15 documented as of this encounter
--- OUTSIDE RECORDS SUMMARY | 2024-07-08 21:40 | XMS_ITS | Encounter Summary ---
Author Organization [employer] Address [address] [facility] [address]t [place] [address] Care Team Providers Care Conceptor Name Role Phone Name, Memo ARREDONDO Primary Care Provider [phone] Reason for Visit * Reason Onset Date Comments triage 06/06/2022 Encounter Details Date Type Department Care Team ([facility] st Contact Info) Description 06/06/2022 Telephone [facility] MEDICINE [address] [place] [address] Name, MD Memo [address] [place] [address] triage Social History Tobacco Use Types Packs/Day [...] visit with PRIYANKA Schwab at 1115am . [facility] unable to schedule a tele visit and [...] questions were negative * Telephone Encounter - Rosleia Haddad - 06/06/2022 8:22 AM EST Symptom: [...] Info) Description 08/06/2024 10:00 AM EST Telemedicine [facility] MEDICINE [address] [place] [address] 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 RN documented as of this encounter Visit Diagnoses Not on filedocumented in this encounter Care Teams Conceptor Relationship Specialty Start Date End Date Name, MD Memo [address] [place] [address] PCP - General Family Medicine 08/30/15 documented as of this encounter
--- OUTSIDE RECORDS SUMMARY | 2024-07-08 21:40 | XMS_ITS ---
Author Organization [facility] Address [address] [place] [address] Care Team Providers Care Slubber Tender Name Role Phone Name Memo ARREDONDO Primary Care Provider Rolly Manzanares Unavailable [phone] Allergies Allergen (clinical drug ingredient) Drug/Non Drug Allergy documented on EMR Reaction Allergy Type Onset Date Status Indocin Unknown Drug Allergy Active Lovenox Unknown Drug Allergy Active Ultram Unknown Drug Allergy Active Bee Sting [...] an other tobacco user? No Vital Signs Blood pressure systolic 120 mm Hg 07/22/19 24 Blood pressure diastolic 80 mm Hg 024 Height 5 ft 11 in in 07/22/2023 Weight 210 lbs 07/22/2023 BMI 29.29 kg/m2 07/22/2023 Procedures Procedure Date Ordered Date Performed Result Body Sit e 53085-OJOLBAX NAIL, 6 OR MORE 07/22/2023 N/A 22193-MZZP SKIN LESIONS, 2 TO 4 07/22/2023 N/A Encounters Encounter Location Date Provider Diagnosis [facility] [place] [address] [place] [address] 07/22/2023 Rolly Herman Atherosclerosis of gulkana artery of both lower extremities, with unspecified presence of clinical manifestation I70.203 ; Onychomycosis B35.1 ; Pain of toe of right foot M79.674 and Pain of toe of left foot M79.675 Assessments Encounter Date Diagnosis (ICD Code) Assessment Notes Treatment Notes Treatment Clinical Notes Section Notes 07/22/2023 Atherosclerosis of gulkana artery of both lower extremities, with unspecified presence of clinical manifestation (ICD-10 - I70.203) 07/22/2023 Onychomycosis (ICD-10 - B35.1) 07/22/2023 Pain of toe of right foot (ICD-10 - M79.674) 07/22/2023 Pain of toe of left foot (ICD-10 - M79.675) Plan Of Treatment Pending Test Test Name Order Date 33386-IBJTBLV NAIL, 6 OR MORE 07/22/2023 98020-YZVX SKIN LESIONS, 2 TO 4 07/22/19 24 [...] as necessary. Patient chooses, no pharmaceutical tx (20635) Keratoma Treatment Parring or Cutting o f Benign Hyperkeratotic Lesion(s) 03038 (2-4 Lesions) - The Benign hyperkeratotic lesions, as described above were pared, and/or cut utilizing a sterile #15 blade, tissue nippers, and/or dremel, Q8 Progress Notes * Myles JARADOB:1955 (68 yo M)Acc No.[id number]:07/22/2023 Progress Note Patient:?Myles Jara Provider:?Rolly Herman DPM :1955???Age:68 Y???Sex:Male Phillip e:07/22/2023 Address:[address] [place], [place] [id number] Pcp:Memo Alex MD Subjective: * Chief Complaints: [...] Hospitalization/Major Diagno stic Procedure:?Coronary artery disease involving gulkana coronary artery of gulkana heart with unstable angina pectoris Cardiac Cath and Stent [facility] painful L migel Ingrown? given antiboitics 01/08/22[facility]-Drain left knee 3x between 5 weeks 2021C - AFib and choke at sametime- coded [...] * Assessment: 1.?Onychomycosis - B35.1?2.? Atherosclerosis of gulkana artery of both lower extremities, with unspecified presence of clinical manifestation - I70.203?3.?Pain of toe of right foot - M79.674?4.?Pain of toe of left foot - M79.675? Plan: * Treatment: 2.?Atherosclerosis of gulkana artery of both lower extremities, with unspecified presence of clinical manifestation?Procedure: 94654-CSLT SKIN LESIONS, 2 TO 4 * Procedures:?Debride Nail 6-10:?Nail debridement?Nail debridement performed extensively to reduce/remove overall nail length, girth, thickness, subungual debris, and necrotic tissue, by manual and electrical means through the use of a nail nipper and/or dremel, to more viable healthy nail plate or bed tissue 1-5. Silver nitrate used for any petechial bleeding as necessary. Patient chooses, no pharmaceutical tx (39176).?Keratoma Treatment:?Parring or Cutting of Benign Hyperkeratotic Lesion(s)?32770 (2-4 Lesions) - The Benign hyperkeratotic lesions, as described above were pared, and/or cut utilizing a sterile #15 blade, tissue nippers, and/or dremel, Q8.? * Procedure Codes:?15543 DEBRI DE NAIL, 6 OR MORE, Modifiers: XS 48141 TRIM SKIN LESIONS, 2 TO 4, Modifiers: XS , Q8 * Follow Up:?prn * Images: * Sign off status: Completed true * Provider:?Rolly Herman DPM Date:?2023 Generated for James hatfield/Jorge Alberto/Robbin on:?07/08/2024 09:40 PM EST History and Physical Notes * [...]
--- OUTSIDE RECORDS SUMMARY | 2024-07-08 21:40 | XMS_ITS | Encounter Summary ---
Author Organization [employer] Address [address] [facility] [address] [place] [address] Care Team Providers Care Rural Route Carrier Name Role Phone Name, Memo ARREDONDO Primary Care Provider [phone] Reason for Visit * Reason Onset Date Comments triage 06/05/2022 Encounter Details Date Type Department Care Team ([facility] st Contact Info) Description 06/05/2022 Telephone [facility] MEDIC[facility] [address] [place] [address] Name, MD Memo [address] [place] [address] triage Social History Tobacco Use Types Packs/Day [...] Info) Description 08/06/2024 10:00 AM EST Telemedicine [facility] MEDICINE [address] [place] [address] 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 RN documented as of this encounter Visit Diagnoses Not on filedocumented in this encounter Care Teams Rural Route Carrier Relationship Specialty Start Date End Date Name, MD Memo [address] [place] [address] PCP - General Family Medicine 08/30/15 documented as of this encounter
--- OUTSIDE RECORDS SUMMARY | 2024-07-08 21:40 | XMS_ITS | Encounter Summary ---
Author Organization [employer] Address [address] [place] [address] [address] [place] [address] Care Team Providers Care Employee Relation Manager Name Role Phone Name, Memo ARREDONDO Primary Care Provider [phone] Reason for Visit * Reason Onset Date Comments Nurse Triage 09/03/2023 Encounter Details Date Type Department Care Team ([facility] st Contact Info) Description 09/03/2023 Telephone [facility] MEDICINE [address] [place], [place] [id number] Name, MD Memo [address] [place] [address] Nurse Triage Social History Tobacco Use Types [...] EDT Triage call Pt was seen in [facility] 09/02/23 , report is on the [...] if feels that symptoms continue to worsen. Substance Abuse Specialist will forward this triage to PCP and nursing team. Pt agreeswith disposition and home care advised. Insurance is verified as active. Protocol Used: Abdominal Pain - Male (Adult) Protocol-Based Disposition: Go to ED/[facility] Now (or to Office with PCP Approval) [...] accepted this outcome Pt inform went to [facility] ER on 09/02/23 but is still having cafe server pain documented in this encounter Plan of Treatment Upcoming Encounters Date Type Department Care Team (Late st Contact Info) Description 08/06/2024 10:00 AM EST Telemedicine [facility] MEDICINE [address] [place] [address] 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, VON documented as of this encounter Visit Diagnoses Not on filedocumented in this encounter Additional Health Concerns Assessment Noted Time PHQ-9 Depression Total Score: 0 07/17/19 24 10:49 AM EST documented as of this encounter Care Teams Employee Relation Manager Relationship Specialty Start Date End Date Name, MD Memo [address] [place] [address] PCP - General Family Medicine 08/30/15 documented as of this encounter
--- OUTSIDE RECORDS SUMMARY | 2024-07-08 21:40 | XMS_ITS | Encounter Summary ---
Author Organization [employer] Address [address] [place] [address] Care Team Providers Care Finisher Map And Chart Name Role Phone Name, Memo ARREDONDO Primary Care Provider [phone] Encounter Details Date Type Department Care Team ([facility] st Contact Info) Description 07/08/2024 Telephone [facility] [address] [place], [place] [phone] Elisa Mercedes, VON Social History Tobacco Use Types Packs/Day Years [...] encounter Miscellaneous Notes * Telephone Encounter - Elisa Mercedes RN - 07/08/2024 10:15 AM EST Tc to pt to let them know per PCP Please call the patient, his blood work is normal. I would suggest he goes to the ER if the LLQ abdominal pain is severe today. Pt reports still experiencing LLQabdominal oconnell, rates it about a 6/10 and has not taken anything for it. Pt denies any diarrhea or vomiting but reports nausea. Pt advised to eat small frequent meals, drink plenty of fluids, follow BRAT diet, avoid spicy foods that can cause irritation and get otc Zofran. Pt verbalized understanding and reports they will go to the ER if the abd pain becomes severe. Pt advised once we received CT of abdomen results we'll call back to let them know. Pt verbalized understanding and no further questions or concerns at this time. * Telephone Encounter - Elisa Mercedes RN - 07/08/2024 10:11 AM EST ----- Message from Memo Alex MD sent at 07/08/2024 7:13 AM EST ----- Please call the patient, his blood work is normal. I would suggest he goes to the ER if the LLQ abdominal pain is severe today documented in this encounter Plan of Treatment Upcoming Encounters Date Type Department Care Team (Late st Contact Info) Description 08/06/2024 10:00 AM EST Telemedicine [facility] [address] [place] [address] 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, VON documented as of this encounter Visit Diagnoses Not on filedocumented in this encounter Additional Health Concerns Assessment Noted Time PHQ-9 Depression Total Score: 0 07/17/19 24 10:49 AM EST documented as of this encounter Care Teams Finisher Map And Chart Relationship Specialty Start Date End Date Name, MD Memo [address] [facility] [place] [address] PCP - General Family Medicine 08/30/15 documented as of this encounter
--- OUTSIDE RECORDS SUMMARY | 2024-07-08 21:40 | XMS_ITS | Encounter Summary ---
Author Organization [employer] Address [address] [place] [address] 7 [place] [address] Care Team Providers Care Mortgage Protection Specialist Name Role Phone Name, Memo ARREDONDO Primary Care Provider Reason for Visit * Reason Onset Date Comments c/b requested 10/20/2023 Encounter Details Date Type Department Care Team ([facility] st Contact Info) Description 10/20/2023 Telephone [facility] [address] [place], [place] [phone] Name, MD Memo [address] [place] [address] c/b requested Social History Tobacco Use Types [...] a heart procedure done on 11/04/23 at [facility] , and has some further questions and concerns. Please contact at [phone] documented in this encounter Plan of Treatment Upcoming Encounters Date Type Department Care Team (Late st Contact Info) Description 08/06/2024 10:00 AM EST Telemedicine [facility] [address] [place] [address] 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, VON documented as of this encounter Visit Diagnoses Not on filedocumented in this encounter Additional Health Concerns Assessment Noted Time PHQ-9 Depression Total Score: 0 07/17/19 10:49 AM EST documented as of this encounter Care Teams Mortgage Protection Specialist Relationship Specialty Start Date End Date Name, MD Memo [address] [place] [address] PCP - General Family Medicine 08/30/15 documented as of this encounter
--- OUTSIDE RECORDS SUMMARY | 2024-07-08 21:40 | XMS_ITS | Encounter Summary ---
Author Organization [employer] Address [address] [place] [address] 7t [place] [address] Care Team Providers Care Statistics Teacher Name Role Phone Name, Memo ARREDONDO Primary Care Provider [phone] Encounter Details Date Type Department Care Team ([facility] Contact Info) Description 07/08/2024 Orders Only GENERIC EXTERNAL DATA DEPARTMENT Provider, Generic External Data Social History Tobacco Use Types Packs/Day Years [...] your housing situation today? I have lesly tiraod 07/17/[address] you li [...] Info) Description 08/06/2024 10:00 AM EST Telemedicine [facility] [address] [place] [phone] 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 RN documented as of this encounter Procedures Procedure Name Priority Date/Time Associated Diagnosis Comments URINALYSIS, COMPLETE, WITH REFLEX TO CULTURE Routine 07/08/2024 7:20 PM EST CBC WITH AUTO DIFFERENTIAL Routine 07/08/2024 7:20 PM EST LIPASE Routine 07/08/2024 7:20 PM EST LACTIC ACID Routine 07/08/2024 7:20 PM EST COMPREHENSIVE METABOLIC PANEL Routine 07/08/2024 7:20 PM EST documented in this encounter Results * Lipase (07/08/2024 7:20 PM EST) Lipase 19 8 - 78 U/L [facility] 07/08/2024 7:20 PM EST 07/08/2024 7:24 PM EST us Generic External Data Provider LAB BLOOD ORDERAB LES Final Result [facility] [address] [place] [address] [phone] * (ABNORMAL) Comprehensive Metabolic Panel (07/08/2024 7:20 PM EST) Sodium 138 135 - 145 mmol/L [facility] Potassium 4.2 3.3 - 5.1 mmol/L [facility] Chloride 104 96 - 108 mmol/L [facility] Carbon Dioxide 25 22 - 29 mmol/L [facility] Anion Gap 13 12 - 20 [facility] Urea Nitrogen (BUN) 17(H) 9 - 16 mg/dL [facility] Creatinine, Serum 0.77 0.5 - 1.4 mg/dL [facility] Creatinine Clr Calc Pharmacy 102.4 [facility] Comment:eGFR (calculated fro m the MDRD study equation) and eCrCl(calculated from the Cockcroft-Gault equation) are based ondifferent parameters and may not yield comparable results.If eCrCl result is absurd, please check patient'sheight/weight. Estimated Glomerular Filt Rate >60 [facility] Comment:Chronic Kidney Disea se: Estimated GFR < 60 mL/min/1.02q1Detcsl Kidney Disease: Estimated GFR < 15 mL/min/1.73m2 Glucose 118(H) 60 - 115 mg/dL [facility] Calcium 8.7 8.4 - 10.2 mg/dL [facility] Bilirubin, Total 0.2 0.0 - 1.0 mg/dL [facility] Aspartate Amino Transferase 22 5 - 37 U/L [facility] Alanine Aminotransferase 16 0 - 40 U/L [facility] Total Protein 7.0 6.5 - 8.0 g/dL [facility] Albumin Level 3.9 3.5 - 5.0 g/dL [facility] Alkaline Phosphatase 82 39 - 117 U/L [facility] 07/08/2024 7:20 PM EST 07/08/2024 7:24 PM EST us Generic External Data Provider LAB BLOOD ORDERAB LES Final Result [facility] [address] [place] [address] [phone] * Lactic Acid (07/08/2024 7:20 PM EST) Lactic Acid 1.1 0.5 - 2.0 mmol/L [facility] 07/08/2024 7:20 PM EST 07/08/2024 7:24 PM EST Generic External Data Provider LAB BLOOD ORDERAB LES Final Result Performing Organization Address [facility] Co de Phone Number [facility] [address] [place] [phone] * Urinalysis, Complete, with Reflex to Culture (07/08/2024 7:20 PM EST) Color Urine Yellow [facility] Appearance Urine Clear [facility] PH 5.5 5.0 - 9.0 [facility] Glucose Urine UA Negative Negative mg/dL [facility] Urine Blood Negative Negative [facility] Specific [place] - Urine 1.015 1.005 - 1.025 [facility] Urine Protein Negative Neg-Trace mg/dL [facility] Urine Ketones Negative Negative mg/dL [facility] Nitrite Urine Negative Negative [facility] Leukocyte Esterase Urine Negative Negative [facility] RBC Urine 0-2 0 - 2 /HPF [facility] Urine WBC 0-5 0 - 5 /HPF [facility] Urine Squamous Epithelial Cell 0-2 0 - 2 /HPF [facility] Urine Bacteria None Seen None Seen [facility] Hyaline Casts, Urine 0-2 0 - 2 /LPF [facility] 07/08/2024 7:20 PM EST 07/08/2024 7:24 PM EST Narrative [facility] - 07/08/2024 7:31 PM EST Urine, Clean Catch us Generic External Data Provider LAB URINE ORDERAB LES Final Result Performing Organization Address City/[facility]/ZIP Co de Phone Number [facility] [address] [place] [address] [phone] * (ABNORMAL) CBC auto differential (07/08/2024 7:20 PM EST) White Blood Count 9.5 4.8 - 10.8 X10*3/uL [facility] Red Blood Count 4.40(L) 4.60 - 5.80 X10*6/uL [facility] Hemoglobin 13.3(L) 14.0 - 18.0 g/dl [facility] Hematocrit 39.0(L) 42.0 - 52.0 % [facility] Mean Corpuscular Volume 88.6 80.0 - 98.0 fL [facility] Mean Corpuscular Hemoglobin 30.2 27.0 - 33.0 pg [facility] Mean Corpuscular HGB Conc 34.1 31.0 - 36.0 g/dl [facility] Red Cell Distribution Width 12.8 11.0 - 16.0 % [facility] Platelet Count 316 160 - 400 X10*3/uL [facility] Mean Platelet Volume 8.4(L) 9.4 - 12.4 fL [facility] Neutrophils Percent Auto 52.4 45 - 73 % [facility] Imm Gran Pct Auto 0.4 0.0 - 0.4 % [facility] Lymphocytes Percent Auto 28.7 20 - 40 % [facility] Monocytes Percent Auto 8.5 2 - 11 % [facility] Eosinophils Percent Auto 8.9(H) 0 - 4 % [facility] Basophils Percent Auto 1.1 0 - 2 % [facility] NRBC Pct Auto 0.0 0.0 - 0.2 /100WBC [facility] Neutrophils Absolute Auto 5.0 2.0 - 8.3 x10*3/uL [facility] Imm Gran Abs Auto 0.04(H) 0.00 - 0.03 X10*3/uL [facility] Lymphocytes Absolute Auto 2.7 1.2 - 4.9 X10*3/uL [facility] Monocytes Absolute Auto 0.8 0.1 - 1.2 X10*3/uL [facility] Eosinophils Absolute Auto 0.8(H) 0.0 - 0.4 X10*3/uL [facility] Basophils Absolute Auto 0.1 0.0 - 0.2 X10*3/uL [facility] NRBC Abs Auto 0.000 0.0 - 0.012 X10*3/uL [facility] 07/08/2024 7:20 PM EST 07/08/2024 7:24 PM EST us Generic External Data Provider LAB BLOOD ORDERAB LES Final Result Performing Organization Address City/State/[facility] Co de Phone Number [facility] [address] [place] [phone] documented in this encounter Visit Diagnoses Not on filedocumented in this encounter Additional Health Concerns Assessment Noted Time PHQ-9 Depression Total Score: 0 07/17/19 24 10:49 AM EST documented as of this encounter Care Teams Statistics Teacher Relationship Specialty Start Date End Date Name, MD Memo [address] [place] [address] PCP - General Family Medicine 08/30/15 documented as of this encounter
--- OUTSIDE RECORDS SUMMARY | 2024-07-08 21:40 | XMS_ITS | Encounter Summary ---
Author Organization [employer] Address [address] [place] [address] [address] [place] [address] Care Team Providers Care Pump Installation And Servicer Name Role Phone Name, Memo ARREDONDO Primary Care Provider [phone] Reason for Visit * Reason Comments Med Refill Encounter Details Date Type Department Care Team ([facility] st Contact Info) Description 04/30/2023 Refill [facility] [address] [place], [place] [phone] [facility] [address] [place], [place] [phone] Coronary artery disease involving [place] heart without angina pectoris, unspecified vessel or [...] EST Telemedicine [facility] [address] [place] [address] 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 RN documented as of this encounter Visit Diagnoses Diagnosis Coronary artery disease involving [place] heart without angina pectoris, unspecified vessel or lesion type documented in this encounter Additional Health Concerns Assessment Noted Time PHQ-9 Depression Total Score: 9 06/27/19 23 10:17 AM EST documented as of this encounter Care Teams Pump Installation And Servicer Relationship Specialty Start Date End Date Name, MD Memo [address] [place] [address] PCP - General Family Medicine 08/30/15 documented as of this encounter
--- OUTSIDE RECORDS SUMMARY | 2024-07-08 21:40 | XMS_ITS | Encounter Summary ---
Author Organization [employer] Address [address] [place] [address] [address] [place] [address] Care Team Providers Care Capacity Management Specialist Name Role Phone Name, Memo ARREDONDO Primary Care Provider [phone] Reason for Visit * Reason Onset Date Comments returning call back 05/14/2022 Encounter Details Date Type Department Care Team (Late st Contact Info) Description 05/14/2022 Telephone [facility] [address] [place] [address] Name, MD Memo [address] [place] [address] returning call back Social History Tobacco Use [...] be called back. Please contact pt at [phone] documented in this encounter Plan of Treatment Upcoming Encounters Date Type Department Care Team (Late st Contact Info) Description 08/06/2024 10:00 AM EST Telemedicine [facility] [address] [place] [address] 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, VON documented as of this encounter Visit Diagnoses Not on filedocumented in this encounter Care Teams Capacity Management Specialist Relationship Specialty Start Date End Date Name, MD Memo [address] [place] [address] PCP - General Family Medicine 08/30/15 documented as of this encounter
--- OUTSIDE RECORDS SUMMARY | 2024-07-08 21:41 | XMS_ITS | Clinical Summary ---
Author Organization [employer] Address [address] [place] [address] 7 [place] [address] Care Team Providers Care Gusset Stitcher Name Role Phone Name, Memo ARREDONDO Primary Care Provider [phone] Allergies Active Allergy Reactions Criticality Noted Date [...] 0.4 MG SL tabletIndicatio ns:Atherosclero sis of [place] coronary artery of [place] heart with stable angina pectoris (CMS/HCC) PLACE [...] MG EC tabletIndicatio ns:Coronary artery disease involving [place] heart without angina pectoris, unspecified vessel or [...] -advised foot exercises -tylenol prn -already saw hydropulper few days ago-states had foot XR -per [...] right wrist with recent prednisone tx, 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 per [facility] Primary localized osteoarthritis [...] he will try to readdress Atherosclerosis of [place] co ronary artery of [place] heart with stable angina pectoris 02/24/2018 Overview [...] artery disease of n ative artery of [place] heart with stable angina pectoris 09/04/2015 Radicular [...] 01/24/2015 Coronary artery stenosis 07/13/2014 Overview (05/14/2022): [place] Coronary Artery Stenosis Benign essential hypertension 07/13/2014 [...] Encounters Date Type Department Care Team Description 07/08/2024 Orders Only GENERIC EXTERNAL DATA DEPARTMENT Provider, Generic External Data 07/08/2024 Telephone [facility] [place] [address] Elisa Mercedes RN 07/07/2024 3:30 PM EST Office Visit [facility] [place] [address] Memo Alex MD Abdominal pain, LLQ (Primary Dx) 06/16/2024 Patient Outreach [facility] [place] [address] Memo Alex MD Medicare Annual Wellness Visit Initial (AWV scheduled) 06/14/2024 Refill [facility] [place] [address] Memo Alex MD Chronic pain syndrome 05/24/2024 Telephone [facility] [place] [address] Memo Alex MD 05/21/2024 11:00 AM EST Telemedicine [facility] [place] [address] 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, deputy register of deeds pain syndrome 05/21/2024 Travel 05/21/2024 Telephone [facility] [place] [address] 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, RN Recommend Tele [employer] YE[employer] Tier 2 05/17/2024 Refill [facility] [place] [address] Camille Alexandra NP 05/17/2024 Refill [facility] [place] [address] Memo Alex MD Chronic pain syndrome 05/17/2024 Refill [facility] [place] [address] Memo Alex MD Coronary artery disease involving [place] heart without angina pectoris, unspecified vessel or lesion type 04/27/2024 Refill [facility] [address] Name, MD Memo Choking, subsequent encounter 04/25/2024 Orders Only GENERIC EXTERNAL DATA DEPARTMENT Provider, Generic External Data 04/19/2024 Refill [facility] [place] [address] Name, MD Memo Chronic pain syndrome 04/19/2024 Refill [facility] [place] [address] Name, MD Memo 04/15/2024 Refill [facility] [place] [address] Name, MD Memo 04/12/2024 3:15 PM EST Office Visit [facility] [place] [address] Name, MD Memo Atherosclerosis of [place] coronary artery of [place] heart with stable angina pectoris (CMS/HCC) (Primary Dx); Tobacco use; Chronic right shoulder pain; Rectal bleeding; Encounter for immunization 04/12/2024 Travel 04/09/2024 Telephone [facility] [place] [address] Shahla Claros, VON Results from Last 3 Months Immunizations Name Administration [...] Info) Description 08/06/2024 10:00 AM EST Telemedicine [facility] [address] [place] [phone] 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, RN Health Maintenance Due Date [...] Procedure Name Priority Date/Time Associated Diagnosis Comments LIPASE Routine 07/08/2024 7:20 PM EST COMPREHENSIVE METABOLIC PANEL Routine 07/08/2024 7:20 PM EST LACTIC ACID Routine 07/08/2024 7:20 PM EST URINALYSIS, COMPLETE, WITH REFLEX TO CULTURE Routine 07/08/2024 7:20 PM EST CBC WITH AUTO DIFFERENTIAL Routine 07/08/2024 7:20 PM EST COMPREHENSIVE METABOLIC PANEL Routine 07/07/2024 4:08 PM EST Abdominal pain, LLQ CBC WITH AUTO DIFFERENTIAL Routine 07/07/2024 4:08 PM EST Abdominal pain, LLQ POCT HEMOGLOBIN Routine 07/07/2024 3:56 PM EST [...] Rectal bleeding Left lower quadrant abdominal pain LIPID PANEL, STANDARD Routine 01/02/2024 6:36 AM EDT HEPATITIS PANEL, GENERAL Routine 09/01/2023 11:55 AM EDT LLQ abdominal pain Encounter for screening for other viral diseases HM COLONOSCOPY Routine 03/04/2023 from Last 3 Months or Most Recently Relevant to Health Maintenance Results * Urinalysis, Complete, with Reflex to Culture (07/08/2024 7:20 PM EST) Color Urine Yellow [facility] Appearance Urine Clear [facility] PH 5.5 5.0 - 9.0 [facility] Glucose Urine UA Negative Negative mg/dL [facility] Urine Blood Negative Negative [facility] Specific [place] - Urine 1.015 1.005 - 1.025 [facility] Urine Protein Negative Neg-Trace mg/dL [facility] Urine Ketones Negative Negative mg/dL [facility] Nitrite Urine Negative Negative [facility] Leukocyte Esterase Urine Negative Negative [facility] RBC Urine 0-2 0 - 2 /HPF [facility] Urine WBC 0-5 0 - 5 /HPF [facility] Urine Squamous Epithelial Cell 0-2 0 - 2 /HPF [facility] Urine Bacteria None Seen None Seen [facility] Hyaline Casts, Urine 0-2 0 - 2 /LPF [facility] 07/08/2024 7:20 PM EST 07/08/2024 7:24 PM EST Narrative [facility] - 07/08/2024 7:31 PM EST Urine, Clean Catch us Generic External Data Provider LAB URINE ORDERAB LES Final Result [facility] [address] [place] [phone] * (ABNORMAL) CBC auto differential (07/08/2024 7:20 PM EST) Only the most recent of4 resultswithin the time period is included. White Blood Count 9.5 4.8 - 10.8 X10*3/uL [facility] Red Blood Count 4.40(L) 4.60 - 5.80 X10*6/uL [facility] Hemoglobin 13.3(L) 14.0 - 18.0 g/dl [facility] Hematocrit 39.0(L) 42.0 - 52.0 % [facility] Mean Corpuscular Volume 88.6 80.0 - 98.0 fL [facility] Mean Corpuscular Hemoglobin 30.2 27.0 - 33.0 pg [facility] Mean Corpuscular HGB Conc 34.1 31.0 - 36.0 g/dl [facility] Red Cell Distribution Width 12.8 11.0 - 16.0 % [facility] Platelet Count 316 160 - 400 X10*3/uL [facility] Mean Platelet Volume 8.4(L) 9.4 - 12.4 fL [facility] Neutrophils Percent Auto 52.4 45 - 73 % [facility] Imm Gran Pct Auto 0.4 0.0 - 0.4 % [facility] Lymphocytes Percent Auto 28.7 20 - 40 % [facility] Monocytes Percent Auto 8.5 2 - 11 % [facility] Eosinophils Percent Auto 8.9(H) 0 - 4 % [facility] Basophils Percent Auto 1.1 0 - 2 % [facility] NRBC Pct Auto 0.0 0.0 - 0.2 /100WBC [facility] Neutrophils Absolute Auto 5.0 2.0 - 8.3 x10*3/uL [facility] Imm Gran Abs Auto 0.04(H) 0.00 - 0.03 X10*3/uL [facility] Lymphocytes Absolute Auto 2.7 1.2 - 4.9 X10*3/uL [facility] Monocytes Absolute Auto 0.8 0.1 - 1.2 X10*3/uL [facility] Eosinophils Absolute Auto 0.8(H) 0.0 - 0.4 X10*3/uL [facility] Basophils Absolute Auto 0.1 0.0 - 0.2 X10*3/uL [facility] NRBC Abs Auto 0.000 0.0 - 0.012 X10*3/uL [facility] 07/08/2024 7:20 PM EST 07/08/2024 7:24 PM EST Generic External Data Provider LAB BLOOD ORDERAB LES Final Result Performing Organization Address [facility]/ZIP Co de Phone Number [facility] [address] [place] [phone] * Lipase (07/08/2024 7:20 PM EST) Lipase 19 8 - 78 U/L [facility] 07/08/2024 7:20 PM EST 07/08/2024 7:24 PM EST Generic External Data Provider LAB BLOOD ORDERAB LES Final Result Performing Organization Address [facility] de Phone Number [facility] [address] [place] [phone] * Lactic Acid (07/08/2024 7:20 PM EST) Only the most recent of2 resultswithin the time period is included. Lactic Acid 1.1 0.5 - 2.0 mmol/L [facility] 07/08/2024 7:20 PM EST 07/08/2024 7:24 PM EST us Generic External Data Provider LAB BLOOD ORDERAB LES Final Result [facility] [address], [place] [phone] * (ABNORMAL) Comprehensive Metabolic Panel (07/08/2024 7:20 PM EST) Only the most recent of3 resultswithin the time period is included. Sodium 138 135 - 145 mmol/L [facility] Potassium 4.2 3.3 - 5.1 mmol/L [facility] Chloride 104 96 - 108 mmol/L [facility] Carbon Dioxide 25 22 - 29 mmol/L [facility] Anion Gap 13 12 - 20 [facility] Urea Nitrogen (BUN) 17(H) 9 - 16 mg/dL [facility] Creatinine, Serum 0.77 0.5 - 1.4 mg/dL [facility] Creatinine Clr Calc Pharmacy 102.4 [facility] Comment:eGFR (calculated fro m the MDRD study equation) and eCrCl(calculated from the Cockcroft-Gault equation) are based ondifferent parameters and may not yield comparable results.If eCrCl result is absurd, please check patient'sheight/weight. Estimated Glomerular Filt Rate >60 [facility] Comment:Chronic Kidney Disea se: Estimated GFR < 60 mL/min/1.34m8Tifbqr Kidney Disease: Estimated GFR < 15 mL/min/1.73m2 Glucose 118(H) 60 - 115 mg/dL [facility] Calcium 8.7 8.4 - 10.2 mg/dL [facility] Bilirubin, Total 0.2 0.0 - 1.0 mg/dL [facility] Aspartate Amino Transferase 22 5 - 37 U/L [facility] Alanine Aminotransferase 16 0 - 40 U/L [facility] Total Protein 7.0 6.5 - 8.0 g/dL [facility] Albumin Level 3.9 3.5 - 5.0 g/dL [facility] Alkaline Phosphatase 82 39 - 117 U/L [facility] 07/08/2024 7:20 PM EST 07/08/2024 7:24 PM EST Generic External Data Provider LAB BLOOD ORDERAB LES Final Result Performing Organization Address [facility] Co de Phone Number [facility] [address] [place] [phone] * POCT Hemoglobin (07/07/2024 3:56 PM EST) Hemoglobin 15.0 13.0 - 17.0 QC Media Lot # [id number] Lot# Expiration Date Blood 07/07/2024 3:56 PM EST Memo Alex MD POINT OF CARE TEST ENTER/EDIT OR DERABLES Final Result * Lactic Acid (04/25/2024 2:53 PM EST) [facility] Signature Lactic Acid 1.0 0.5 - 2.0 mmol/L [facility] 04/25/2024 2:53 PM EST 04/25/2024 2:56 PM EST Generic External Data Provider LAB BLOOD ORDERAB LES Final Result Performing Organization Address [facility] de Phone Number [facility] [address] [place] [phone] * Urinalysis w/reflex microscopic (04/25/2024 2:51 PM EST) Color Urine Dark Yellow [facility] Appearance Urine Clear [facility] PH 5.5 5.0 - 9.0 [facility] Glucose Urine UA Negative Negative mg/dL [facility] Urine Blood Negative Negative [facility] Specific [place] - Urine 1.025 1.005 - 1.025 [facility] Urine Protein Negative Neg-Trace mg/dL [facility] Urine Ketones Negative Negative mg/dL [facility] Nitrite Urine Negative Negative [facility] Leukocyte Esterase Urine Negative Negative [facility] 04/25/2024 2:51 PM EST 04/25/2024 2:56 PM EST Narrative [facility] - 04/25/2024 3:03 PM EST [id number], Clean Catch Generic External Data Provider LAB URINE ORDERAB LES Final Result Performing Organization Address [facility]/ZIP Co de Phone Number [facility] [address] [place] [phone] * Blood Culture (Second) (04/25/2024 1:28 PM EST) Blood Venous blood specimen / Unknown 04/25/2024 1:28 PM EST 04/25/2024 1:37 PM EST Comment:Blood Narrative [facility] - 04/30/2024 3:37 PM EST Blood Culture (Second) No growth after 5 days. Specimen Source: Blood Generic External Data Provider LAB MICROBIOLOGY - GENERAL ORDERABLES Final Result Performing Organization Address [facility]/ZIP Co de Phone Number [facility] [address] [place] [phone] * SARS-CoV-2 RNA, Influenza A/B, and RSV RNA, Ql NAAT (04/25/2024 1:28 PM EST) Influenza A PCR NEGATIVE Negative [facility] Influenza B PCR NEGATIVE Negative [facility] Resp Syncy Virus RNA Qual PCR NEGATIVE Negative [facility] SARS COV2 PCR NEGATIVE Negative [facility] Comment:All test results mus t [...] use by authorized laboratories.Testing performed on the [employer] GeneXpert utilizingreal-time RT-PCR.All SARS CoV2 and positive influenza A/B results arereported to [facility]. 04/25/2024 1:28 PM EST 04/25/2024 1:37 PM EST Generic External Data Provider LAB MICROBIOLOGY - GENERAL ORDERABLES Final Result Performing Organization Address [facility] Phone Number [facility] [address] [place] [phone] * High Sensitivity Troponin I (04/25/2024 12:34 PM EST) Pathologist [facility] TROPONIN I HIGH SENSITIVITY <2.7 <3.5 - 35.0 ng/L [facility] Comment:The Paula high sens itivity Troponin-I results should beused in conjunction with other diagnostic information suchas ECG, clinical observations and information, and patientsymptoms to aid in the diagnosis of [place]. 04/25/2024 12:3 4 PM EST 04/25/2024 12:39 PM EST Generic External Data Provider LAB BLOOD ORDERAB LES Final Result Performing Organization Address [facility] [address] [place] [phone] * Partial Thromboplastin Time, Activated (APTT) (04/25/2024 12:34 PM EST) Partial Thromboplastin Time 36.7 26.0 - 36.8 SEC [facility] Comment:For information rega rding the monitoring of direct thrombininhibitors, please refer to Pharmacy. 04/25/2024 12:3 4 PM EST 04/25/2024 12:39 PM EST Generic External Data Provider LAB BLOOD ORDERAB LES Final Result Performing Organization Address [facility] Phone Number [facility] [address] [place] [phone] * Prothrombin Time-INR (04/25/2024 12:34 PM EST) Prothrombin Time 10.9 10.9 - 12.4 SEC [facility] INTERNATIONAL NORM RATIO 0.9 0.9 - 1.1 [facility] Comment:INTERNATIONAL NORMAL IZED RATIO (INR) REFERENCE [...] Provider LAB BLOOD ORDERAB LES Final Result [facility] [address] [place] [phone] * Blood Culture (First) (04/25/2024 12:33 PM EST) Blood Venous blood specimen / Unknown 04/25/2024 12:33 PM EST 04/25/2024 12:39 PM EST Comment:Blood Narrative [facility] - 04/30/2024 2:40 PM EST Blood Culture (First) No growth after 5 days. Specimen Source: Blood Generic External Data Provider LAB MICROBIOLOGY - GENERAL ORDERABLES Final Result Performing Organization Address City/[facility]/ZIP Co de Phone Number [facility] [address] [place] [phone] * (ABNORMAL) Sed Rate by Modified Jessicaren (04/25/2024 12:33 PM EST) Only the most recent of2 resultswithin the time period is included. Erythrocyte Sedimentation Rate 16(H) 0 - 15 MM/HR [facility] Comment:Patients with polycy themia and many hemoglobin abnormalitiesmay have depressed sed rates whereas patients with anemiamay have elevated sed rates. 04/25/2024 12:3 3 PM EST 04/25/2024 12:59 PM EST Generic External Data Provider LAB BLOOD ORDERAB LES Final Result Performing Organization Address [facility] de Phone Number [facility] [address] [place] [phone] * (ABNORMAL) C-reactive Protein (04/25/2024 12:33 PM EST) C Reactive Protein 1.32(H) < or = 0.50 mg/dL [facility] 04/25/2024 12:3 3 PM EST 04/25/2024 12:39 PM EST Generic External Data Provider LAB BLOOD ORDERAB LES Final Result Performing Organization Address [facility] de Phone Number [facility] [address] [place] [phone] * XR Chest 1 View (04/25/2024 12:19 PM EST) Anatomical Region Laterality Modality Chest Radiographic Nilda ging 04/25/2024 12:1 9 PM EST Narrative 04/25/2024 2:10 PM EST ? [facility] ?[address] ?[place] [address] ?XRay Report ? Signed ? Patient: Myles Tipton ?MR#: [id number] ?? 5 ? : 1955 ?Acct:[id number] ? Age/Sex: 69 / M ?ADM Date: 11/17/24 ? Loc: HO.ED ? Attending Dr: ? Ordering Physician: Chuck Barnett ?? Date of Service: 04/25/24 ?? Procedure(s): XR chest 1V ?? Accession Number(s): [id number] ? cc: Chuck Barnett; Name,Memo ARREDONDO ? [...] DD/ 1219 ? TD/TT: 04/25/24 1302 ? Technical Service Specialist: SR ? Procedure Note Donotuseinterpreter, Image - 04/25/[address] [address] XRay Report Signed Patient: Myles TiptonMR#: [id number] 5 : 3Acct:[id number] Age/Sex: 69 / MADM Date: 04/25/24 Loc: .ED Attending Dr: Ordering Physician: Chuck Barnett Date of Service: 04/25/24 Procedure(s): XR chest 1V Accession Number(s): [id number] cc: Chuck Barnett; Name,Memo ARREDONDO EXAMINATION: XR [...] by: Vidal Hurst MD 04/25/2024 02:06 PM [facility] Dictated By: Vidal Hurst MD Signed By: <Electronically signed by Vidal Hurst MD in OV> 04/25/24 1406 DD/ 1219 TD/TT: 04/25/24 1302 Technical Service Specialist: [facility] External Provider IMG XR PROCEDURES Edited Result - Final * Hepatic Function Panel (04/07/2024 8:46 AM EDT) Bilirubin, Total 0.4 0.0 - 1.0 mg/dL [facility] Bilirubin, Direct 0.2 0.0 - 0.5 mg/dL [facility] Aspartate Amino Transferase 24 5 - 37 U/L [facility] Alanine Aminotransferase 14 0 - 40 U/L [facility] Total Protein 6.9 6.5 - 8.0 g/dL [facility] Albumin Level 4.0 3.5 - 5.0 g/dL [facility] Alkaline Phosphatase 77 39 - 117 U/L [facility] Blood Venous blood specimen / Unknown 04/07/2024 8:46 AM EDT 04/07/2024 11:23 AM EDT Liliya Manrique MD LAB BLOOD ORDERABLES Fin al Result [facility] [address] [place] [phone] * Lipid Panel, Standard (01/02/2024 6:36 AM EDT) Triglycerides 112 <150 mg/dL [facility] Comment:Desirable Triglyceri de: less than 150 mg/dLBorderline High Triglyceride 150-199 mg/dLHigh Triglyceride: 200-499 mg/dLVery High Triglyceride: greater than or equal to 5OO mg/dL Cholesterol 154 <200 mg/dL [facility] Comment:Desirable Cholestero l: less than 200 mg/dLBorderline High Cholesterol: 200-239 mg/dLHigh Cholesterol: greater than 239 mg/dL LDL Cholesterol Calculated 83 <100 mg/dL [facility] Comment:Desirable LDL: less than 100 mg/dLNear Optimal/Above Optimal LDL: 110- 129 mg/dLBorderline High LDL: 130-159 mg/dLHigh LDL: 160-189 mg/dLVery High LDL: greater than or equal to 190 mg/dL HDL Cholesterol 49 >40 mg/dL [facility] Comment:Desirable HDL: great er than 40 mg/dL Note: This HDL assay may give artificially low results in patients with liver disease. 01/02/2024 6:36 AM EDT 01/02/2024 6:36 AM EDT us Generic External Data Provider LAB BLOOD ORDERAB LES Final Result Performing Organization Address City/[facility]/ZIP Co de Phone Number [facility] [address] [place] [phone] * Hepatitis Panel, General (09/01/2023 11:55 AM EDT) Hepatitis A IgM Nonreactive Nonreactive [facility] Comment:IgM antibodies to LANDEROS V not detected; does not exclude earlyacute or recovered HAV infection. ~Hepatitis B Surface Antibody REACTIVE Nonreactive [facility] Comment:REACTIVE: > 11.99 mI U/mL Hepatitis B Core Antibody Nonreactive Nonreactive [facility] Hepatitis C Antibody Nonreactive Nonreactive [facility] Comment:Antibodies to HCV no t detected; does not exclude early acuteHCV infection. Hepatitis B Surface Ag Negative Negative [facility] Blood 09/01/2023 11:5 5 AM EDT 09/01/2023 1:48 PM EDT us Sonia Ladd EDITORIAL SPECIALIST LAB BLOOD ORDERABLES Final Res ult [facility] [address] [place] [phone] * Colonoscopy (03/04/2023) Colonoscopy Normal Normal Comment:Negative result, Rep eat in 3-5 years Memo Alex MD HEALTH MAINTENANCE Final Result from Last 3 Months or Most Recently Relevant to Health Maintenance Insurance [facility] STANDARD MEDICARE Care Teams Gusset Stitcher Relationship Specialty Start Date End Date Name, MD Memo [address] [place] [address] PCP - General Family Medicine 08/30/15
--- OUTSIDE RECORDS SUMMARY | 2024-07-08 21:41 | XMS_ITS | Encounter Summary ---
Author Organization [employer] Address [address] [place] [address] [address] [place] [address] Care Team Providers Care Head Piece Assembler Name Role Phone Name, Memo ARREDONDO Primary Care Provider [phone] Reason for Visit * Reason Comments Medicare Annual Wellness Visit Initial [place] scheduled Encounter Details Date Type Department Care Team ([facility] st Contact Info) Description 06/16/2024 Patient Outreach [facility] [address] [place] [address] Name, MD Memo [address] [place] [address] Medicare Annual Wellness Visit Initial (AWV scheduled) [...] Description 08/06/2024 10:00 AM EST Telemedicine [facility] [address] [place] [address] 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 RN documented as of this encounter Visit Diagnoses Not on filedocumented in this encounter Additional Health Concerns Assessment Noted Time PHQ-9 Depression Total Score: 0 07/17/19 24 10:49 AM EST documented as of this encounter Care Teams Head Piece Assembler Relationship Specialty Start Date End Date Name, MD Memo [address] [place] [address] PCP - General Family Medicine 08/30/15 documented as of this encounter
--- OUTSIDE RECORDS SUMMARY | 2024-07-08 21:41 | XMS_ITS ---
Author Organization [facility] Address [address] [place] [address] Care Team Providers Care Elevator Service Mechanic Name Role Phone Name Memo ARREDONDO Primary Care Provider Rloly Manzanraes [phone] REASON FOR VISIT cx same day 09/30/23 Encounters Encounter Location Date Provider Diagnosis [facility] [address] [place] [address] 09/30/2023 Rolly Herman Plan Of Treatment No Information Progress Notes * Myles JARADOB:1955 (68 yo M)Acc No.[id number]:09/30/2023 Patient:?JamilMyles bates :1955???Age:68 Y???Sex:Male Address:[address] [place] [address], [place], [address] * true * Date:? Generated for Printi ng/Jorge Alberto/eTransmitting on:?07/08/2024 09:41 PM EST
--- OUTSIDE RECORDS SUMMARY | 2024-07-08 21:41 | XMS_ITS | Patient Health Record ---
Author Organization [facility] Address [address] [facility] [place] [address] Care Team Providers Care School Office Manager Name Role Phone Name Memo ARREDONDO Primary Care Provider Rolly Manzanares Unavailable [phone] Allergies Allergen (clinical drug ingredient) Drug/Non Drug [...] W/U Status Risk Notes Problem Atherosclerosis of [place] arteries of the extremities ([id number]) Atherosclerosis of [place] artery of both lower extremities, with unspecified presence of clinical manifestation (I70.203) Active confirmed Vital Signs Blood pressure diastolic 80 mm Hg 07/22/2023 Height 5 ft 11 in in 07/22/2023 Blood pressure systolic 120 mm Hg 07/22/2023 Weight 210 lbs 07/22/2023 BMI 29.29 kg/m2 07/22/2023 Procedures Procedure Date Ordered Date Performed Result Body Sit e 05820-XJMEXLF NAIL, 6 OR MORE 07/22/2023 N/A 72032-PEWT SKIN LESIONS, 2 TO 4 07/22/2023 N/A Encounters Encounter Location Date Provider Diagnosis [facility] [address] [address] 07/22/2023 Rolly Herman Atherosclerosis of [place] artery of both lower extremities, with unspecified presence of clinical manifestation I70.203 ; Onychomycosis B35.1 ; Pain of toe of right foot M79.674 and Pain of toe of left foot M79.675 [facility] [address] [address] 09/30/2023 Rolly Herman Assessments Encounter Date Diagnosis (ICD Code) Assessment Notes Treatment Notes Treatment Clinical Notes Section Notes 07/22/2023 Onychomycosis (ICD-10 - B35.1) 07/22/2023 Atherosclerosis of [place] artery of both lower extremities, with unspecified presence of clinical manifestation (ICD-10 - I70.203) 07/22/2023 Pain of toe of right foot (ICD-10 - M79.674) 07/22/2023 Pain of toe of left foot (ICD-10 - M79.675) Plan Of Treatment Pending Test Test Name Order Date X ray : Foot, left 3V 01/23/2022 X ray : Foot, left 3V 11/29/2022 92094-BFNJAAI NAIL, 6 OR MORE 02/25/2023 37839-JFIYQEJ NAIL, 6 OR MORE 11/29/2022 09210-MPIFDVA NAIL, 6 OR MORE 07/22/2023 02230-CVYBCTY NAIL, 6 OR MORE 03/05/2022 28285-XUXRFDJ NAIL, 6 OR MORE 05/28/2022 46833-XXUTKJX NAIL, 6 OR MORE 08/27/2022 48868-Gijjzlmh Plate 05/28/2022 45376- Debride <25 sq cm 01/23/2022 68909 I&D ABSCESS- SIMPLE,SINGLE 022 68747-DYVH SKIN LESIONS, 2 TO 4 08/28/19 23 30018-LJWZ SKIN LESIONS, 2 TO 4 05/28/20 22 46068-EBMO SKIN LESIONS, 2 TO 4 07/22/19 24 79292-BMIZ SKIN LESIONS, 2 TO 4 11/30/19 23 18569-KWZX SKIN LESIONS, 2 TO 4 02/26/20 23 Insurance Providers Payer Name Payer Address Payer Phone Subscriber Number Group Number Insured Name Patient Relationship to Insured Coverage Start Date Coverage End Date Medicare National Govt [employer] [address] [place] [address] [id number] Myles Tipton Self - patient is the [...] coded 2x CPR done 2 days 06/13/2022 [facility] left knee 3 x between 5 weeks 2021 [facility] [place] [facility] painful L migel Ingrown? g ivedy antiboitics 01/08/22 Cardiac Cath and Stent Coronary artery disease invo lving [place] coronary artery of [place] heart with unstable angina pectoris
--- OUTSIDE RECORDS SUMMARY | 2024-07-08 21:41 | XMS_ITS | Encounter Summary ---
Author Organization [employer] Address [address] [place] [address] 7 [place] [address] Care Team Providers Care Project Executive Name Role Phone Name, Memo ARREDONDO Primary Care Provider Reason for Visit * Reason Comments Med Refill Encounter Details Date Type Department Care Team ([facility] st Contact Info) Description 10/25/[address] [facility] MED[facility] [address] [place], [place] [phone] Name, MD Memo [address] [place] [address] Chronic pain syndrome Social History Tobacco Use [...] encounter Miscellaneous Notes * Telephone Encounter - Pat Danielta - 10/25/2022 12:24 PM EDT Pt walk in requesting refill for his Oxycodone 10 MG. documented in this encounter Plan of Treatment Upcoming Encounters Date Type Department Care Team (Late st Contact Info) Description 08/06/2024 10:[address] [facility] [address] [place] [address] 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 RN documented as of this encounter Visit Diagnoses Diagnosis Chronic pain syndrome documented in this encounter Additional Health Concerns Assessment Noted Time PHQ-9 Depression Total Score: 9 06/27/19 10:17 AM EST documented as of this encounter Care Teams Project Executive Relationship Specialty Start Date End Date Name, MD Memo [address] [place] [address] PCP - General Family Medicine 08/30/15 documented as of this encounter
--- OUTSIDE RECORDS SUMMARY | 2024-07-08 21:41 | XMS_ITS | Encounter Summary ---
Author Organization [employer] Address [address] [place] [address] 7 [place] [address] Care Team Providers Care Grips Name Role Phone Name, Memo ARREDONDO Primary Care Provider [phone] Reason for Visit * Reason Onset Date Comments Med Refill 06/14/2024 Encounter Details Date Type Department Care Team ([facility] st Contact Info) Description 06/14/2024 Refill [facility] MEDICINE [address] [place], [place] [phone] Name, MD Memo [address] [place] [address] Chronic pain syndrome Social History Tobacco Use [...] immediate release tablet To be sent to: [facility] - [address] documented in this encounter Plan of Treatment Upcoming Encounters Date Type Department Care Team (Late st Contact Info) Description 08/06/2024 10:00 AM EST Telemedicine [facility] MEDICINE [address] [place] [address] 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, VON documented as of this encounter Visit Diagnoses Diagnosis Chronic pain syndrome documented in this encounter Additional Health Concerns Assessment Noted Time PHQ-9 Depression Total Score: 0 07/17/19 10:49 AM EST documented as of this encounter Care Teams Grips Relationship Specialty Start Date End Date Name, MD Memo [address] [place] [address] PCP - General Family Medicine 08/30/15 documented as of this encounter
--- OUTSIDE RECORDS SUMMARY | 2024-07-08 21:41 | XMS_ITS ---
Author Organization [facility] Address [address] [place] [address] Care Team Providers Care Electronics Technology Department Chair Name Role Phone Name Memo ARREDONDO Primary Care Provider Rolly Manzanares Unavailable [phone] Encounters Encounter Location Date Provider Diagnosis [address] [address] 09/30/2023 Rolly Herman Plan Of Treatment No Information Progress Notes * Myles JARADOB:1955 (69 yo M)Acc No.[id number]:09/30/2023 Progress Note Patient:Myles WHITING Provider:?Rolly Herman DPM :1955???Age:68 Y???Sex:Male Phillip e:09/30/2023 Address:[address] [place], [place] [id number] Pcp:Memo Alex MD Subjective: * Chief Complaints: [...] Herman DPM Date:?2023 Generated for Printi ng/Faethelg/eTransmitting on:?07/08/2024 09:41 PM EST
--- OUTSIDE RECORDS SUMMARY | 2024-07-08 21:41 | XMS_ITS | Encounter Summary ---
Author Organization [employer] Address [address] [place] [address] 7 [place] [address] Care Team Providers Care Park Interpretive Specialist Name Role Phone Name, Memo ARREDONDO Primary Care Provider [phone] Encounter Details Date Type Department Care Team (Late Contact Info) Description 11/14/2022 [facility] [address] [place], [place] [phone] Name, MD Memo 230 [place], [place] [phone] Social History Tobacco Use Types Packs/Day Years [...] EST Telemedicine [facility] MEDICINE [address] [place], [place] [phone] 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, RN documented as of this encounter Visit Diagnoses Not on filedocumented in this encounter Additional Health Concerns Assessment Noted Time PHQ-9 Depression Total Score: 9 06/27/19 23 10:17 AM EST documented as of this encounter Care Teams Park Interpretive Specialist Relationship Specialty Start Date End Date Name, MD Memo [address] [place] [address] PCP - General Family Medicine 08/30/15 documented as of this encounter
--- OUTSIDE RECORDS SUMMARY | 2024-07-08 21:41 | XMS_ITS | Encounter Summary ---
Author Organization [employer] Address [address] [place] [address] 7 [place] [address] Care Team Providers Care Propeller Inspector Name Role Phone Name, Memo ARREDONDO Primary Care Provider [phone] Reason for Visit * Reason Comments Med Refill Encounter Details Date Type Department Care Team ([facility] st Contact Info) Description 03/23/2024 Refill [facility] MEDICINE [address] [place], [place] [phone] Name, MD Memo 230 [place] [address] Social History Tobacco Use Types Packs/Day Years [...] Info) Description 08/06/2024 10:00 AM EST Telemedicine [facility] MEDICINE [address] [place] [address] 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 RN documented as of this encounter Visit Diagnoses Not on filedocumented in this encounter Additional Health Concerns Assessment Noted Time PHQ-9 Depression Total Score: 0 07/17/19 24 10:49 AM EST documented as of this encounter Care Teams Propeller Inspector Relationship Specialty Start Date End Date Name, MD Memo 230 [place] [address] PCP - General Family Medicine 08/30/15 documented as of this encounter
--- OUTSIDE RECORDS SUMMARY | 2024-07-08 21:42 | XMS_ITS | Encounter Summary ---
Author Organization [employer] Address [address] [place] [address] 7 [place] [address] Care Team Providers Care Rod And Tube Straightener Name Role Phone Name, Memo ARREDONDO Primary Care Provider [phone] Reason for Visit * Reason Onset Date Comments Error 03/25/2024 Encounter Details Date Type Department Care Team ([facility] Contact Info) Description 03/25/2024 Telephone [facility] MEDICINE [address] [place], [place] [phone] Name, MD Memo [address] [place] [address] Error Social History Tobacco Use Types Packs/Day [...] Info) Description 08/06/2024 10:00 AM EST Telemedicine [facility]INE [address] [place] [address] 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 RN documented as of this encounter Visit Diagnoses Not on filedocumented in this encounter Additional Health Concerns Assessment Noted Time PHQ-9 Depression Total Score: 0 07/17/19 24 10:49 AM EST documented as of this encounter Care Teams Rod And Tube Straightener Relationship Specialty Start Date End Date Name, MD Memo [address] [place] [address] PCP - General Family Medicine 08/30/15 documented as of this encounter
[2024-07-08] MEDS: iohexoL 350 MG/ML 100 ML INFUS..BTL 85 ML IV (22:09)
[2024-07-08] MEDS: 0.9 % Sodium Chloride 1,000 ML 999 ML IV (23:25)
[2024-07-08 23:48] VITALS: BP 128/83; PULSE 61; RESP 17; O2SAT 96
[2024-07-09] MEDS: ondansetron HCL 4 MG/2 ML VIAL IVPUSH (00:17)
[2024-07-09 00:23] VITALS: BP 128/83; PULSE 61; RESP 17; TEMP 36.7; O2SAT 96
== END 2024-07-09 00:23 | disposition home or self-care (01) ==
PROVIDERS: Physician Assistant; Emergency Provider Emergency Medicine; PCP Internal Medicine Geriatric Medicine
DX: K59.00 Constipation, unspecified (principal); R10.32 Left lower quadrant pain; I10 Essential (primary) hypertension; E78.5 Hyperlipidemia, unspecified; I48.0 Paroxysmal atrial fibrillation; Z86.718 Personal history of other venous thrombosis and embolism; Z79.01 Long term (current) use of anticoagulants; Z79.02 Long term (current) use of antithrombotics/antiplatelets; Z79.899 Other long term (current) drug therapy; Z87.891 Personal history of nicotine dependence; Z95.0 Presence of cardiac pacemaker
CPT/HCPCS: 36415; 74177; 80053; 81001; 83605; 83690; 85025; 87040; 96361; 96374; 96375; 99284; J2405; Q9967

== ENCOUNTER → 2024-07-08 18:53 | Outpatient (BNV) | payer MEDICARE, MEDICAID, SELFPAY | PROVIDERS: Emergency Provider Emergency Medicine; PCP Internal Medicine Geriatric Medicine; Visit Provider Specialist | DX: R10.32 Left lower quadrant pain (principal) | CPT/HCPCS: 74177 ==

== ENCOUNTER → 2024-07-15 09:34 | Outpatient (BNVA) | payer MEDICARE, MEDICAID, SELFPAY | PROVIDERS: PCP Internal Medicine Geriatric Medicine; Visit Provider Surgery Vascular Surgery | DX: I83.12 Varicose veins of left lower extremity with inflammation (principal); Z98.890 Other specified postprocedural states | CPT/HCPCS: 99212 ==

== ENCOUNTER → 2024-07-25 23:59 | Outpatient (BNV) | payer MEDICARE, MEDICAID, SELFPAY ==
--- NOTE | 2024-07-31 19:10 | A.OFFVIS_ITS ---
Intake Visit Reasons: Remote Device Check- [facility] Allergies bee pollen [BEE STINGS] Allergy (Severe, Verified 07/15/24 09:37) ANAPHYLAXIS indomethacin [Indocin] Allergy (Severe, Verified 07/15/24 09:37) anaphylaxis tramadol [Ultram] Allergy (Severe, Verified 07/15/24 09:37) anaphylaxis fentanyl Adverse Reaction (Verified 07/15/24 09:37) Anxiety [facility] Medical History Nicotine dependence, cigarettes, uncomplicated Elevated cholesterol History of chemotherapy Obstructive sleep apnea (~2018) On anticoagulant therapy DVT (deep venous thrombosis) Essential hypertension Tubular adenoma of colon COVID-19 vaccine administered Seizures (~04/2020) GERD (gastroesophageal reflux disease) Esophagitis Atherosclerotic cardiovascular disease Brain lesion Psychotic disorder Syncope Headache Myocardial infarction Pacemaker (~05/2013) Tremor Brain bleed CAD (coronary artery disease) Surgical History Hx of shoulder surgery History of total left knee replacement History of ERCP History of spinal surgery History of colonoscopy (~09/2020) History of right knee surgery (~12/2013) History of total right hip replacement (~06/2012) History of cholecystectomy History of cardiac catheterization History of permanent cardiac pacemaker placement (~05/2013) History of esophagogastroduodenoscopy (EGD) (~09/2020) History of appendectomy Stented coronary artery Family History Father Heavy cigarette smoker Throat cancer Mother Heart disease Social History Household Members: None Household Members Other:: shares house with a friend Housing: House Are you a primary ambulatory care coordinator to a significant other at home: No Do you presently have visiting nurse or other home services: No Alcohol intake: never Comment: resting eyes closed Patient Tobacco Use Status: Former Tobacco user Tobacco use type: Cigarette Years Smoked: 8 +/- e-Cigarette/Vaping Use: Never Used Second Hand Smoke Exposure: No Advance Directives Date on File: 12/16/20 service: No Current occupational status: employed and retired Office Procedures Cardiac Device Check Cardiac Device Check Details: Date of service- 07/25/2024 ; Battery life >10 years; normal lead parameters; AP 40%; TRAINING AND DEVELOPMENT REP <1%; no significant arrhythmias. Overall normal device function. [id number] Cardiac Device Interrogation, pacemaker Procedure code (CPT) selection complete Assessment & Plan Assessment & Plan (1) Pacemaker: Onset Date: ~05/2013 Comment: ([facility] DCPP, placed 2012 - device interrogation 08/30/20) Code(s): Z95.0 - Presence of cardiac pacemaker Category: Medical (2) Sick sinus syndrome: Code(s): I49.5 - Sick sinus syndrome Category: Medical Plan x Coding Level of Care Code Procedure Only Diagnoses Pacemaker Z95.0 Sick sinus syndrome I49.5 CPT Codes Cardiac Device Check - Cardiac Device 12: [id number] Cardiac Device Interrogation, pacemaker ([id number])
== END ==
PROVIDERS: PCP Internal Medicine Geriatric Medicine; Visit Provider Internal Medicine
DX: I49.5 Sick sinus syndrome (principal); Z95.0 Presence of cardiac pacemaker
CPT/HCPCS: 93294

== ENCOUNTER 2024-08-04 06:30 | Outpatient (REF) | payer MEDICARE, MEDICAID, SELFPAY ==
--- NOTE | ~2024-08-04 | CT_ITS ---
CLINICAL HISTORY: 10 days of LLQ abdominal pain and malaise CT abdomen and pelvis with contrast Comparison: CT/SR - CT ABDOMEN PELVIS W IV CON - 07/08/24 21:59 EST Findings: The lung bases are clear. Similar-appearing cystic/lucent process involving the medial right lung. 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 The gallbladder is absent. The liver demonstrates similar mild intrahepatic biliary ductal prominence. The spleen, adrenal glands and pancreas are unremarkable. Kidneys, ureters and bladder are within normal limits. Moderate fecal retention within the colon. No bowel obstruction, free air, free fluid or abscess. No evidence of diverticulosis No acute osseous finding. Jefj-vl-[id number] atherosclerotic disease The prostate gland is mildly enlarged and heterogeneous, nonspecific Impression: There is fecal retention throughout the colon. There is no evidence of diverticulosis. No definite acute process. Incidental findings as detailed. This document has been electronically signed by: Kurtis Murrieta MD on 08/04/2024 12:57:41
--- OUTSIDE RECORDS SUMMARY | 2024-08-04 06:33 | XMS_ITS | Encounter Summary ---
Author Organization [employer] Address [address] [place] [address] 7t [place] [address] Care Team Providers Care Wholesale Parts Salesperson Name Role Phone Name, Memo ARREDONDO Primary Care Provider [phone] Encounter Details Date Type Department Care Team ([facility] Contact Info) Description 07/08/2024 Orders Only [...] Info) Description 08/06/2024 10:00 AM EST Telemedicine [facility] [address] [place] [address] 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 RN documented as of this [...] EST Narrative 07/08/2024 11:01 PM EST ? [facility] ?[address] ?[place] [address] ? CT Scan Report ? Signed ? Patient: Ommerle,Peter ?MR#: [id number] ?? 5 ? : 1955 ?Acct:[id number] ? Age/Sex: 69 / M ?ADM Date: 07/08/24 ? Loc: HO.ED ? Attending Dr: ? Ordering Physician: Arsh Savage ?? Date of Service: 07/08/24 ?? Procedure(s): CT abdomen pelvis w IV con ?? Accession Number(s): [id number] ? cc: Name,Memo ARREDONDO; Arsh Savage ? Report Number: ?? [id number]: Total DLP = ??753.00 mGy-cm ? CLINICAL [...] ? DD/ 58 ? TD/TT: 07/08/242258 ? Tile Grinder: ? Procedure Note Donotjamainterpreter, Image - 07/08/[address] [address] [address] Scan Report Signed Patient: Myles TiptonMR#: [id number] 5 : 3Acct:[id number] Age/Sex: 69 / MADM Date: 07/08/24 Loc: HO.ED Attending Dr: Ordering Physician: Arsh Savage Date of Service: 07/08/24 Procedure(s): CT abdomen pelvis w IV con Accession Number(s): [id number] cc: Name,Memo ARREDONDO; Arsh Savage Report Number: [id number]: Total DLP = 753.00 mGy-cm CLINICAL HISTORY: [...] in OV> 07/08/242300 DD/ 58 TD/TT: 07/08/242258 Tile Grinder: [facility] External Provider IMG CT PROCEDURES Final Result * Blood Culture (First) (07/08/2024 7:20 PM EST) Blood Venous blood specimen / Unknown 07/08/2024 7:20 PM EST 07/08/2024 7:24 PM EST Comment:Blood Narrative [facility] - 07/13/2024 9:24 PM EST Blood Culture (First) No growth after 5 days. Specimen Source: Blood Generic External Data Provider LAB MICROBIOLOGY - GENERAL ORDERABLES Final Result Performing Organization Address [place]/[facility]/ZIP Co de Phone Number [facility] [address] [place] [phone] * Lipase (07/08/2024 7:20 PM EST) Lipase 19 8 - 78 U/L [facility] 07/08/2024 7:20 PM EST 07/08/2024 7:24 PM EST Generic External Data Provider LAB BLOOD ORDERAB LES Final Result Performing Organization Address [place]/[facility]/ZIP Co de Phone Number [facility] [address] [place] [phone] * (ABNORMAL) Comprehensive Metabolic Panel (07/08/2024 7:20 PM EST) Sodium 138 135 - 145 mmol/L [facility] Potassium 4.2 3.3 - 5.1 mmol/L [facility] Chloride 104 96 - 108 mmol/L [facility] Carbon Dioxide 25 22 - 29 mmol/L [facility] Anion Gap 13 12 - 20 [facility] Urea Nitrogen (BUN) 17(H) 9 - 16 mg/dL [facility] Creatinine, Serum 0.77 0.5 - 1.4 mg/dL [facility] Creatinine Clr Calc Pharmacy 102.4 [facility] Comment:eGFR (calculated fro m the MDRD study equation) and eCrCl(calculated from the Cockcroft-Gault equation) are based ondifferent parameters and may not yield comparable results.If eCrCl result is absurd, please check patient'sheight/weight. Estimated Glomerular Filt Rate >60 [facility] Comment:Chronic Kidney Disea se: Estimated GFR < 60 mL/min/[id number] Kidney Disease: Estimated GFR < 15 mL/min/1.73m2 Glucose 118(H) 60 - 115 mg/dL [facility] Calcium 8.7 8.4 - 10.2 mg/dL [facility] Bilirubin, Total 0.2 0.0 - 1.0 mg/dL [facility] Aspartate Amino Transferase 22 5 - 37 U/L [facility] Alanine Aminotransferase 16 0 - 40 U/L [facility] Total Protein 7.0 6.5 - 8.0 g/dL [facility] Albumin Level 3.9 3.5 - 5.0 g/dL [facility] Alkaline Phosphatase 82 39 - 117 U/L [facility] 07/08/2024 7:20 PM EST 07/08/2024 7:24 PM EST us Generic External Data Provider LAB BLOOD ORDERAB LES Final Result [facility] [address] [place] [address] [phone] * Lactic Acid (07/08/2024 7:20 PM EST) Lactic Acid 1.1 0.5 - 2.0 mmol/L [facility] 07/08/2024 7:20 PM EST 07/08/2024 7:24 PM EST us Generic External Data Provider LAB BLOOD ORDERAB LES Final Result Performing Organization Address [place]/[facility] de Phone Number [facility] [address] [place] [address] [phone] * Urinalysis, Complete, with Reflex to Culture (07/08/2024 7:20 PM EST) Color Urine Yellow [facility] Appearance Urine Clear [facility] PH 5.5 5.0 - 9.0 [facility] Glucose Urine UA Negative Negative mg/dL [facility] Urine Blood Negative Negative [facility] Specific [place] - Urine 1.015 1.005 - 1.025 [facility] Urine Protein Negative Neg-Trace mg/dL [facility] Urine Ketones Negative Negative mg/dL [facility] Nitrite Urine Negative Negative [facility] Leukocyte Esterase Urine Negative Negative [facility] RBC Urine 0-2 0 - 2 /HPF [facility] Urine WBC 0-5 0 - 5 /HPF [facility] Urine Squamous Epithelial Cell 0-2 0 - 2 /HPF [facility] Urine Bacteria None Seen None Seen [facility] Hyaline Casts, Urine 0-2 0 - 2 /LPF [facility] 07/08/2024 7:20 PM EST 07/08/2024 7:24 PM EST Narrative [facility] - 07/08/2024 7:31 PM EST Urine, Clean Catch us Generic External Data Provider LAB URINE ORDERAB LES Final Result Performing Organization Address [place]/[facility]/ZIP Co de Phone Number [facility] [address] [place] [address] [phone] * (ABNORMAL) CBC auto differential (07/08/2024 7:20 PM EST) White Blood Count 9.5 4.8 - 10.8 X10*3/uL [facility] Red Blood Count 4.40(L) 4.60 - 5.80 X10*6/uL [facility] Hemoglobin 13.3(L) 14.0 - 18.0 g/dl [facility] Hematocrit 39.0(L) 42.0 - 52.0 % [facility] Mean Corpuscular Volume 88.6 80.0 - 98.0 fL [facility] Mean Corpuscular Hemoglobin 30.2 27.0 - 33.0 pg [facility] Mean Corpuscular HGB Conc 34.1 31.0 - 36.0 g/dl [facility] Red Cell Distribution Width 12.8 11.0 - 16.0 % [facility] Platelet Count 316 160 - 400 X10*3/uL [facility] Mean Platelet Volume 8.4(L) 9.4 - 12.4 fL [facility] Neutrophils Percent Auto 52.4 45 - 73 % [facility] Imm Gran Pct Auto 0.4 0.0 - 0.4 % [facility] Lymphocytes Percent Auto 28.7 20 - 40 % [facility] Monocytes Percent Auto 8.5 2 - 11 % [facility] Eosinophils Percent Auto 8.9(H) 0 - 4 % [facility] Basophils Percent Auto 1.1 0 - 2 % [facility] NRBC Pct Auto 0.0 0.0 - 0.2 /100WBC [facility] Neutrophils Absolute Auto 5.0 2.0 - 8.3 x10*3/uL [facility] Imm Gran Abs Auto 0.04(H) 0.00 - 0.03 X10*3/uL [facility] Lymphocytes Absolute Auto 2.7 1.2 - 4.9 X10*3/uL [facility] Monocytes Absolute Auto 0.8 0.1 - 1.2 X10*3/uL [facility] Eosinophils Absolute Auto 0.8(H) 0.0 - 0.4 X10*3/uL [facility] Basophils Absolute Auto 0.1 0.0 - 0.2 X10*3/uL [facility] NRBC Abs Auto 0.000 0.0 - 0.012 X10*3/uL [facility] 07/08/2024 7:20 PM EST 07/08/2024 7:24 PM EST Generic External Data Provider LAB BLOOD ORDERAB LES Final Result Performing Organization Address [place]/[facility]/ZIP Co de Phone Number [facility] [address] [place] [phone] * Blood Culture (Second) (07/08/2024 6:53 PM EST) Blood Venous blood specimen / Unknown 07/08/2024 6:53 PM EST 07/09/2024 7:56 AM EST Comment:Blood Narrative [facility] - 07/09/2024 7:57 AM EST Blood Culture (Second) Test not performed NO SPECIMEN RECEIVED. PATIENT DEPARTED ED Specimen Source: Blood Generic External Data Provider LAB MICROBIOLOGY - GENERAL ORDERABLES Final Result Performing Organization Address [place]/[facility] Co de Phone Number [facility] [address] [place] [phone] documented in this encounter Visit Diagnoses Not on filedocumented in this encounter Additional Health Concerns Assessment Noted Time PHQ-9 Depression Total Score: 0 07/17/19 24 10:49 AM EST documented as of this encounter Care Teams Wholesale Parts Salesperson Relationship Specialty Start Date End Date Name, MD Memo [address] [place] [address] PCP - General Family Medicine 08/30/15 documented as of this encounter
--- OUTSIDE RECORDS SUMMARY | 2024-08-04 06:33 | XMS_ITS | Patient Health Record ---
Author Organization [facility] Address [address] [place] [address] Care Team Providers Care Veneer Clipper Name Role Phone Name Memo ARREDONDO Primary Care Provider Rolly Manzanares Unavailable [phone] Allergies Allergen (clinical drug ingredient) Drug/Non Drug [...] W/U Status Risk Notes Problem Atherosclerosis of [place] arteries of the extremities ([id number]) Atherosclerosis of [place] artery of both lower extremities, with unspecified presence of clinical manifestation (I70.203) Active confirmed Encounters Encounter Location Date Provider Diagnosis [facility] [place] [address] [place] [address] 09/30/2023 Rolly Herman Plan Of Treatment Pending Test Test Name Order Date X ray : Foot, left 3V 01/23/2022 X ray : Foot, left 3V 11/29/2022 67628-ACDKMRZ NAIL, 6 OR MORE 02/25/2023 06430-LZHBXEB NAIL, 6 OR MORE 11/29/2022 32173-MKXBRUM NAIL, 6 OR MORE 07/22/2023 51110-KVUERET NAIL, 6 OR MORE 03/05/2022 69274-RVBFDTH NAIL, 6 OR MORE 05/28/2022 03670-ZPQKCTV NAIL, 6 OR MORE 08/27/2022 04494-Mrxnzghf Plate 05/28/2022 48191- Debride <25 sq cm 01/23/2022 68027 I&D ABSCESS- SIMPLE,SINGLE 022 67449-MWIU SKIN LESIONS, 2 TO 4 08/28/19 23 22722-ZNPL SKIN LESIONS, 2 TO 4 05/28/20 22 08965-NMQZ SKIN LESIONS, 2 TO 4 07/22/19 24 57395-NNNY SKIN LESIONS, 2 TO 4 11/30/19 20836-BOHY SKIN LESIONS, 2 TO 4 02/26/20 Insurance Providers Payer Name Payer Address Payer Phone Subscriber Number Group Number Insured Name Patient Relationship to Insured Coverage Start Date Coverage End Date Medicare National [employer] [address] [place] [address] [id number] Myles Tipton Self - patient is the [...] spine surgery 09/04/2015 Hospitalization History Reason Date(Month/Year) [facility] - AFib and choke at sametime- coded 2x CPR done 2 days 06/13/2022 [facility]-Drain left knee 3 x between 5 weeks 2021 [facility] [place] -Ugent Care painful L migel Ingrown? g iven antiboitics 01/08/22 Cardiac Cath and Stent Coronary artery disease invo lving [place] coronary artery of [place] heart with unstable angina pectoris
--- OUTSIDE RECORDS SUMMARY | 2024-08-04 06:33 | XMS_ITS ---
Author Organization [facility] Address [address] [place] [address] Care Team Providers Care Archivist Nonprofit Foundation Name Role Phone Name Memo ARREDONDO Primary Care Provider Rolly Manzanares [phone] REASON FOR VISIT cx same day 09/30/23 Encounters Encounter Location Date Provider Diagnosis [facility] [address] [place] [address] 09/30/2023 Rolly Herman Plan Of Treatment No Information Progress Notes * Myles JARADOB:1955 (68 yo M)Acc No.[id number]:09/30/2023 Patient:?JamilMyles bates :1955???Age:68 Y???Sex:Male Address:[address] [place] [address], [place], [address] * true * Date:? Generated for Printi ng/Jorge Alberto/eTransmitting on:?08/04/2024 06:33 AM EST
--- OUTSIDE RECORDS SUMMARY | 2024-08-04 06:33 | XMS_ITS | Encounter Summary ---
Author Organization [employer] Address [address] [facility] 7t [place] [address] Care Team Providers Care Bacteriologist Food Name Role Phone Name, Memo ARREDONDO Primary Care Provider [phone] Reason for Visit * Reason Onset Date Comments triage 06/05/2022 Encounter Details Date Type Department Care Team ([facility] st Contact Info) Description 06/05/2022 Telephone [facility]INE [address] [place] [address] Name, MD Memo [address] [place] [address] triage Social History Tobacco Use Types Packs/Day [...] Description 08/06/2024 10:00 AM EST Telemedicine [facility] [address] [place] [address] 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 RN documented as of this encounter Visit Diagnoses Not on filedocumented in this encounter Care Teams Bacteriologist Food Relationship Specialty Start Date End Date Name, MD Memo [address] [place] [address] PCP - General Family Medicine 08/30/15 documented as of this encounter
--- OUTSIDE RECORDS SUMMARY | 2024-08-04 06:33 | XMS_ITS | Encounter Summary ---
Author Organization [employer] Address [address] [place] [address] 7 [place] [address] Care Team Providers Care Banquet Waiter/Waitress Name Role Phone Name, Memo ARREDONDO Primary Care Provider [phone] Reason for Visit * Reason Comments Med Refill Encounter Details Date Type Department Care Team ([facility] st Contact Info) Description 02/03/2024 Refill [facility] [address] [place], [place] [phone] Name, MD Memo [address] [place] [address] Chronic pain syndrome Social History Tobacco Use [...] EST Telemedicine [facility] MED[facility]INE [address] [place] [address] 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 RN documented as of this encounter Visit Diagnoses Diagnosis Chronic pain syndrome documented in this encounter Additional Health Concerns Assessment Noted Time PHQ-9 Depression Total Score: 0 07/17/19 24 10:49 AM EST documented as of this encounter Care Teams Banquet Waiter/Waitress Relationship Specialty Start Date End Date Name, MD Memo [address] [place] [address] PCP - General Family Medicine 08/30/15 documented as of this encounter
--- OUTSIDE RECORDS SUMMARY | 2024-08-04 06:33 | XMS_ITS | Encounter Summary ---
Author Organization [employer] Address [address] [place] [address] 7 [place] [address] Care Team Providers Care School Library Media Program Director Name Role Phone Name, Memo ARREDONDO Primary Care Provider [phone] Encounter Details Date Type Department Care Team ([facility] Contact Info) Description 06/06/2022 Telephone [facility] MEDICINE [address] [place] [phone] Name, MD Memo [address] [place] [address] Social History Tobacco Use Types Packs/Day Years [...] Info) Description 08/06/2024 10:00 AM EST Telemedicine [facility] [address] [place] [address] 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 RN documented as of this encounter Visit Diagnoses Not on filedocumented in this encounter Care Teams School Library Media Program Director Relationship Specialty Start Date End Date Name, MD Memo [address] [place] [address] PCP - General Family Medicine 08/30/15 documented as of this encounter
--- OUTSIDE RECORDS SUMMARY | 2024-08-04 06:33 | XMS_ITS | Encounter Summary ---
Author Organization [employer] Address [address] [place] [address] 7 [place] [address] Care Team Providers Care Project Management Name Role Phone Name, Memo ARREDONDO Primary Care Provider [phone] Reason for Visit * Reason Comments Med Refill Encounter Details Date Type Department Care Team ([facility] st Contact Info) Description 04/30/2023 Refill [facility]INE [address] [place], [place] [phone] [facility] [address] [place], [place] [phone] Coronary artery disease involving [place] heart without angina pectoris, unspecified vessel or [...] Info) Description 08/06/2024 10:00 AM EST Telemedicine [facility] [address] [place] [address] 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 RN documented as of this encounter Visit Diagnoses Diagnosis Coronary artery disease involving [place] heart without angina pectoris, unspecified vessel or lesion type documented in this encounter Additional Health Concerns Assessment Noted Time PHQ-9 Depression Total Score: 9 06/27/19 23 10:17 AM EST documented as of this encounter Care Teams Project Management Relationship Specialty Start Date End Date Name, MD Memo [address] [place] [address] PCP - General Family Medicine 08/30/15 documented as of this encounter
--- OUTSIDE RECORDS SUMMARY | 2024-08-04 06:33 | XMS_ITS ---
Author Organization [facility] Address [address] [place] [address] Care Team Providers Care Quarter Section Ironer Name Role Phone Name Memo ARREDONDO Primary Care Provider Rolly Manzanares Unavailable [phone] Allergies Allergen (clinical drug ingredient) Drug/Non Drug [...] Ordered Date Performed Result Body Sit e 57212-KOMRUUD NAIL, 6 OR MORE 07/22/2023 N/A 72500-HXNQ SKIN LESIONS, 2 TO 4 07/22/2023 N/A Encounters Encounter Location Date Provider Diagnosis [facility] [place] [address] [place] [address] 07/22/2023 Rolly Herman Atherosclerosis of [place] artery of both lower extremities, with unspecified presence of clinical manifestation I70.203 ; Onychomycosis B35.1 ; Pain of toe of right foot M79.674 and Pain of toe of left foot M79.675 Assessments Encounter Date Diagnosis (ICD Code) Assessment Notes Treatment Notes Treatment Clinical Notes Section Notes 07/22/2023 Atherosclerosis of [place] artery of both lower extremities, with unspecified presence of clinical manifestation (ICD-10 - I70.203) 07/22/2023 Onychomycosis (ICD-10 - B35.1) 07/22/2023 Pain of toe of right foot (ICD-10 - M79.674) 07/22/2023 Pain of toe of left foot (ICD-10 - M79.675) Plan Of Treatment Pending Test Test Name Order Date 89751-IPFVDCK NAIL, 6 OR MORE 07/22/2023 34474-GJSF SKIN LESIONS, 2 TO 4 07/22/19 24 [...] as necessary. Patient chooses, no pharmaceutical tx (76914) Keratoma Treatment Parring or Cutting o f Benign Hyperkeratotic Lesion(s) 88730 (2-4 Lesions) - The Benign hyperkeratotic lesions, as described above were pared, and/or cut utilizing a sterile #15 blade, tissue nippers, and/or dremel, Q8 Progress Notes * Myles JARADOB:1955 (68 yo M)Acc No.[id number]:07/22/2023 Progress Note Patient:?Myles Jara Provider:?Rolly Herman DPM :1955???Age:68 Y???Sex:Male Phillip e:07/22/2023 Address:[address] [place], [place] [phone] Pcp:Memo Alex MD Subjective: * Chief Complaints: [...] Hospitalization/Major Diagno stic Procedure:?Coronary artery disease involving [place] coronary artery of [place] heart with unstable angina pectoris Cardiac Cath and Stent C -Ugent Care painful L migel Ingrown? [facility] 3x between [...] * Assessment: 1.?Onychomycosis - B35.1?2.? Atherosclerosis of [place] artery of both lower extremities, with unspecified presence of clinical manifestation - I70.203?3.?Pain of toe of right foot - M79.674?4.?Pain of toe of left foot - M79.675? Plan: * Treatment: 2.?Atherosclerosis of [place] artery of both lower extremities, with unspecified presence of clinical manifestation?Procedure: 01554-ZSQU SKIN LESIONS, 2 TO 4 * Procedures:?Debride Nail 6-10:?Nail debridement?Nail debridement performed extensively to reduce/remove overall nail length, girth, thickness, subungual debris, and necrotic tissue, by manual and electrical means through the use of a nail nipper and/or dremel, to more viable healthy nail plate or bed tissue 1-5. Silver nitrate used for any petechial bleeding as necessary. Patient chooses, no pharmaceutical tx (53338).?Keratoma Treatment:?Parring or Cutting of Benign Hyperkeratotic Lesion(s)?30752 (2-4 Lesions) - The Benign hyperkeratotic lesions, as described above were pared, and/or cut utilizing a sterile #15 blade, tissue nippers, and/or dremel, Q8.? * Procedure Codes:?07918 DEBRI DE NAIL, 6 OR MORE, Modifiers: XS 69379 TRIM SKIN LESIONS, 2 TO 4, Modifiers: XS , Q8 * Follow Up:?prn * Images: * Sign off status: Completed true * Provider:?Rolly Herman DPM Date:?2023 Generated for James hatfield/Jorge Alberto/Robbin on:?08/04/2024 06:32 AM EST History and Physical Notes * [...]
--- OUTSIDE RECORDS SUMMARY | 2024-08-04 06:33 | XMS_ITS | Encounter Summary ---
Author Organization [employer] Address [address] [place] [address] 7 [place] [address] Care Team Providers Care Extension Service Advisor Name Role Phone Name, Memo ARREDONDO Primary Care Provider [phone] Reason for Visit * Reason Onset Date Comments returning call back 05/14/2022 Encounter Details Date Type Department Care Team (Late st Contact Info) Description 05/14/2022 Telephone [facility] MEDICINE [address] [place] [address] Name, MD Memo [address] [place] [address] returning call back Social History Tobacco Use [...] be called back. Please contact pt at [phone] documented in this encounter Plan of Treatment Upcoming Encounters Date Type Department Care Team (Late st Contact Info) Description 08/06/2024 10:00 AM EST Telemedicine [facility]INE [address] [place] [address] 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, VON documented as of this encounter Visit Diagnoses Not on filedocumented in this encounter Care Teams Extension Service Advisor Relationship Specialty Start Date End Date Name, MD Memo [address] [place] [address] PCP - General Family Medicine 08/30/15 documented as of this encounter
--- OUTSIDE RECORDS SUMMARY | 2024-08-04 06:33 | XMS_ITS ---
Author Organization [facility] Address [address] [place] [address] Care Team Providers Care Process Improvement Consultant Name Role Phone Name Memo ARREDONDO Primary Care Provider Rolly Manzanares Unavailable [phone] Encounters Encounter Location Date Provider Diagnosis [address] [address] 09/30/2023 Rolly Herman Plan Of Treatment No Information Progress Notes * Myles JARADOB:1955 (69 yo M)Acc No.[id number]:09/30/2023 Progress Note Patient:Myles WHITING Provider:?Rolly Herman DPM :1955???Age:68 Y???Sex:Male Phillip e:09/30/2023 Address:[address] [place], [place] [phone] Pcp:Memo Alex MD Subjective: * Chief Complaints: [...] Herman DPM Date:?2023 Generated for Printi liu/Fajacqui/eTransmitting on:?08/04/2024 06:33 AM EST
--- OUTSIDE RECORDS SUMMARY | 2024-08-04 06:33 | XMS_ITS | Encounter Summary ---
Author Organization [employer] Address [address] [place] [address] 7 [place] [address] Care Team Providers Care Chair Inspector And Leveler Name Role Phone Name, Memo ARREDONDO Primary Care Provider [phone] Reason for Visit * Reason Onset Date Comments Nurse Triage 09/03/2023 Encounter Details Date Type Department Care Team ([facility] st Contact Info) Description 09/03/2023 Telephone [facility] MEDICINE [address] [place], [place] [phone] Name, MD Memo [address] [place] [phone] Nurse Triage Social History Tobacco Use Types [...] EDT Triage call Pt was seen in [facility] Ed 09/02/23 , report is on the [...] if feels that symptoms continue to worsen. Materials Management Clerk will forward this triage to PCP and nursing team. Pt agreeswith disposition and home care advised. Insurance is verified as active. Protocol Used: Abdominal Pain - Male (Adult) Protocol-Based Disposition: Go to ED/[facility] Now (or to Office with [...] accepted this outcome Pt inform went to [facility] ER on 09/02/23 but is still having client server programmer pain documented in this encounter Plan of Treatment Upcoming Encounters Date Type Department Care Team (Late st Contact Info) Description 08/06/2024 10:00 AM EST Telemedicine [facility] MEDICINE [address] [place] [address] 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, VON documented as of this encounter Visit Diagnoses Not on filedocumented in this encounter Additional Health Concerns Assessment Noted Time PHQ-9 Depression Total Score: 0 07/17/19 24 10:49 AM EST documented as of this encounter Care Teams Chair Inspector And Leveler Relationship Specialty Start Date End Date Name, MD Memo [address] [place] [address] PCP - General Family Medicine 08/30/15 documented as of this encounter
--- OUTSIDE RECORDS SUMMARY | 2024-08-04 06:33 | XMS_ITS | Encounter Summary ---
Author Organization [employer] Address [address] [facility] 7t [place] [address] Care Team Providers Care Rental Car Porter Name Role Phone Name, Memo ARREDONDO Primary Care Provider [phone] Reason for Visit * Reason Onset Date Comments triage 06/06/2022 Encounter Details Date Type Department Care Team ([facility] st Contact Info) Description 06/06/2022 Telephone [facility] MEDICINE [address] [place] [address] Name, MD Memo [address] [place] [address] triage Social History Tobacco Use Types Packs/Day [...] visit with PRIYANKA Schwab at 1115am . [facility] unable to schedule a tele visit [...] Info) Description 08/06/2024 10:00 AM EST Telemedicine [facility] MEDICINE [address] [place] [address] 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 RN documented as of this encounter Visit Diagnoses Not on filedocumented in this encounter Care Teams Rental Car Porter Relationship Specialty Start Date End Date Name, MD Memo [address] [place] [address] PCP - General Family Medicine 08/30/15 documented as of this encounter
--- OUTSIDE RECORDS SUMMARY | 2024-08-04 06:33 | XMS_ITS | Encounter Summary ---
Author Organization [employer] Address [address] [place] [address] 7 [place] [address] Care Team Providers Care Transmission Superintendent Name Role Phone Memo Alex MD Primary Care Provider [phone] Reason for Referral * Imaging (Routine) - Authorized Specialty Diagnoses / Procedures Referred By Contac t Referred To Contact Radiology Diagnoses Abdominal pain, LLQ Procedures CT Abdomen Pelvis w/ Contrast Memo Alex MD [address] [place] [id number] Phone: tel: fax: [address] Phone: tel: fax: Referral ID Status Reason Start Date Expiration Date V isits Requested Visits Authorized [id number] Authorized 07/07/2024 07/07/2025 1 1 Reason for Visit * Reason Comments Follow-up Encounter Details Date Type Department Care Team (Late st Contact Info) Description 07/07/2024 3:30 PM EST Office Visit [facility] MEDICINE [address] [place] [address] [phone] Memo Alex MD [address] [place], [place] [phone] Abdominal pain, LLQ (Primary Dx) Social History [...] Info) Description 08/06/2024 10:00 AM EST Telemedicine [facility] MEDICINE [address] [place] [phone] 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 RN Scheduled Orders Name Type [...] EST) Sodium 138 135 - 145 mmol/L [facility] Potassium 4.2 3.3 - 5.1 mmol/L [facility] Chloride 105 96 - 108 mmol/L [facility] Carbon Dioxide 25 22 - 29 mmol/L [facility] Anion Gap 12 12 - 20 [facility] Urea Nitrogen (BUN) 20(H) 9 - 16 mg/dL [facility] Creatinine, Serum 0.67 0.5 - 1.4 mg/dL [facility] Estimated Glomerular Filt Rate >60 [facility] Comment:Chronic Kidney Disea se: Estimated GFR < 60 mL/min/[id number] Kidney Disease: Estimated GFR < 15 mL/min/1.73m2 Glucose 88 60 - 115 mg/dL [facility] Calcium 8.7 8.4 - 10.2 mg/dL [facility] Bilirubin, Total 0.2 0.0 - 1.0 mg/dL [facility] Aspartate Amino Transferase 19 5 - 37 U/L [facility] Alanine Aminotransferase 13 0 - 40 U/L [facility] Total Protein 7.5 6.5 - 8.0 g/dL [facility] Albumin Level 4.2 3.5 - 5.0 g/dL [facility] Alkaline Phosphatase 79 39 - 117 U/L [facility] Blood Venous blood specimen / Unknown 07/07/2024 4:08 PM EST 07/07/2024 5:34 PM EST us Memo Name MD LAB BLOOD ORDERABLES Final Resul t [facility] [address] [place] [phone] * (ABNORMAL) CBC auto differential (07/07/2024 4:08 PM EST) White Blood Count 10.5 4.8 - 10.8 X10*3/uL [facility] Red Blood Count 4.72 4.60 - 5.80 X10*6/uL [facility] Hemoglobin 14.3 14.0 - 18.0 g/dl [facility] Hematocrit 42.4 42.0 - 52.0 % [facility] Mean Corpuscular Volume 89.8 80.0 - 98.0 fL [facility] Mean Corpuscular Hemoglobin 30.3 27.0 - 33.0 pg [facility] Mean Corpuscular HGB Conc 33.7 31.0 - 36.0 g/dl [facility] Red Cell Distribution Width 12.8 11.0 - 16.0 % [facility] Platelet Count 404(H) 160 - 400 X10*3/uL [facility] Mean Platelet Volume 9.0(L) 9.4 - 12.4 fL [facility] Neutrophils Percent Auto 56.1 45 - 73 % [facility] Imm Gran Pct Auto 0.6(H) 0.0 - 0.4 % [facility] Lymphocytes Percent Auto 25.4 20 - 40 % [facility] Monocytes Percent Auto 9.3 2 - 11 % [facility] Eosinophils Percent Auto 7.6(H) 0 - 4 % [facility] Basophils Percent Auto 1.0 0 - 2 % [facility] NRBC Pct Auto 0.0 0.0 - 0.2 /100WBC [facility] Neutrophils Absolute Auto 5.9 2.0 - 8.3 x10*3/uL [facility] Imm Gran Abs Auto 0.06(H) 0.00 - 0.03 X10*3/uL [facility] Lymphocytes Absolute Auto 2.7 1.2 - 4.9 X10*3/uL [facility] Monocytes Absolute Auto 1.0 0.1 - 1.2 X10*3/uL [facility] Eosinophils Absolute Auto 0.8(H) 0.0 - 0.4 X10*3/uL [facility] Basophils Absolute Auto 0.1 0.0 - 0.2 X10*3/uL [facility] NRBC Abs Auto 0.000 0.0 - 0.012 X10*3/uL [facility] Blood Venous blood specimen / Unknown 07/07/2024 4:08 PM EST 07/07/2024 5:34 PM EST us Memo Alex MD LAB BLOOD ORDERABLES Final Resul t [facility] [address] [place] [phone] * POCT Hemoglobin (07/07/2024 3:56 PM [...] documented as of this encounter Care Teams Transmission Superintendent Relationship Specialty Start Date End Date Name, MD Memo [address] [place] [address] PCP - General Family Medicine 08/30/15 documented as of this encounter
--- OUTSIDE RECORDS SUMMARY | 2024-08-04 06:33 | XMS_ITS | Encounter Summary ---
Author Organization [employer] Address [address] [facility] [address] [place] [address] Care Team Providers Care Block And Case Maker Name Role Phone Name, Memo ARREDONDO Primary Care Provider [phone] Encounter Details Date Type Department Care Team ([facility] st Contact Info) Description 07/08/2024 Telephone [facility] MEDICINE [address] [place], [place] [phone] Elisa Mercedes, VON Social History Tobacco Use [...] Info) Description 08/06/2024 10:00 AM EST Telemedicine [facility] MEDICINE [address] [place] [address] 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, VON documented as of this encounter Visit Diagnoses Not on filedocumented in this encounter Additional Health Concerns Assessment Noted Time PHQ-9 Depression Total Score: 0 07/17/19 24 10:49 AM EST documented as of this encounter Care Teams Block And Case Maker Relationship Specialty Start Date End Date Name, MD Memo [address] [facility] [place] [address] PCP - General Family Medicine 08/30/15 documented as of this encounter
--- OUTSIDE RECORDS SUMMARY | 2024-08-04 06:33 | XMS_ITS | Encounter Summary ---
Author Organization [employer] Address [address] [place] [address] 7 [place] [address] Care Team Providers Care Field Representatives Director Name Role Phone Name, Memo ARREDONDO Primary Care Provider [phone] Encounter Details Date Type Department Care Team (Latest Contact Info) Description 07/09/2021 Abstract [facility] CONVERSIONS Dental, Provider, DDS Social [...] EST Telemedicine [facility] MEDICINE [address] [place] [address] 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, RN documented as of this encounter Visit Diagnoses Not on filedocumented in this encounter Care Teams Field Representatives Director Relationship Specialty Start Date End Date Name, MD Memo [address] [place] [address] PCP - General Family Medicine 08/30/15 documented as of this encounter
--- OUTSIDE RECORDS SUMMARY | 2024-08-04 06:34 | XMS_ITS | Encounter Summary ---
Author Organization [employer] Address [address] [place] [address] 7 [place] [address] Care Team Providers Care Architectural Associate Name Role Phone Name, Memo ARREDONDO Primary Care Provider [phone] Reason for Visit * Reason Onset Date Comments Error 03/25/2024 Encounter Details Date Type Department Care Team ([facility] Contact Info) Description 03/25/2024 Telephone [facility] MEDICINE [address] [place], [place] [phone] Name, MD Memo [address] [place] [address] Error Social History Tobacco Use Types Packs/Day [...] Info) Description 08/06/2024 10:00 AM EST Telemedicine [facility] MED[facility]INE [address] [place] [address] 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 RN documented as of this encounter Visit Diagnoses Not on filedocumented in this encounter Additional Health Concerns Assessment Noted Time PHQ-9 Depression Total Score: 0 07/17/19 24 10:49 AM EST documented as of this encounter Care Teams Architectural Associate Relationship Specialty Start Date End Date Name, MD Memo [address] [place] [address] PCP - General Family Medicine 08/30/15 documented as of this encounter
--- OUTSIDE RECORDS SUMMARY | 2024-08-04 06:34 | XMS_ITS | Clinical Summary ---
Author Organization [employer] Address [address] [place] [address] 7 [place] [address] Care Team Providers Care Customs Collector Name Role Phone Name, Memo ARREDONDO Primary Care Provider [phone] Allergies Active Allergy Reactions Criticality Noted Date [...] 0.4 MG SL tabletIndicatio ns:Atherosclero sis of [place] coronary artery of [place] heart with stable angina pectoris (CMS/HCC) PLACE [...] MG EC tabletIndicatio ns:Coronary artery disease involving [place] heart without angina pectoris, unspecified vessel or [...] -advised foot exercises -tylenol prn -already saw anatomy professor few days ago-states had foot XR -per [...] right wrist with recent prednisone tx, to machine pecan picker 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 per NEOS Primary localized [...] he will try to readdress Atherosclerosis of [place] co ronary artery of [place] heart with stable angina pectoris 02/24/2018 Overview [...] artery disease of n ative artery of [place] heart with stable angina pectoris 09/04/2015 Radicular [...] 01/24/2015 Coronary artery stenosis 07/13/2014 Overview (05/14/2022): [place] Coronary Artery Stenosis Benign essential hypertension 07/13/2014 [...] Type Department Care Team Description 07/11/2024 Refill [facility] SHIELA Barahona [phone] Camille Alexandra NP 07/09/2024 Refill [facility] [place] [address] Memo Alex MD Chronic pain syndrome 07/08/2024 Orders Only GENERIC EXTERNAL DATA DEPARTMENT Provider, Generic External Data 07/08/2024 Telephone [facility] [place] [address] Elisa Mercedes RN 07/07/2024 3:30 PM EST Office Visit [facility] [place] [address] Memo Alex MD Abdominal pain, LLQ (Primary Dx) 06/16/2024 Patient Outreach [facility] [place] [address] Memo Alex MD Medicare Annual Wellness Visit Initial (AWV scheduled) 06/14/2024 Refill [facility] [place] [address] Memo Alex MD Chronic pain syndrome 05/24/2024 Telephone [facility] [place] [address] Memo Alex MD 05/21/2024 11:00 AM EST Telemedicine [facility] [place] [address] 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 RN Chronic pain syndrome 05/21/2024 Travel 05/21/2024 Telephone [facility] [place] [address] 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 RN Recommend Tele JIG BORING MACHINE SET UP OPERATOR Tier 2 05/17/2024 Refill [facility] [place] [address] Camille Alexandra NP 05/17/2024 Refill [facility] [address] [facility] [place] [phone] Name, MD Memo Chronic pain syndrome 05/17/2024 Refill [facility] [address] [facility] [place] [address] Name, MD Memo Coronary artery disease involving [place] heart without angina pectoris, unspecified vessel or [...] Info) Description 08/06/2024 10:00 AM EST Telemedicine [facility] [address] [place], [place] [phone] 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, RN Health Maintenance Due Date [...] EST Narrative 07/08/2024 11:01 PM EST ? [facility] ?[address] ?[place] [address] ? CT Scan Report ? Signed ? Patient: Myles Tipton ?MR#: [id number] ?? 5 ? : 1955 ?Acct:[id number] ? Age/Sex: 69 / M ?ADM Date: 07/08/24 ? Loc: HO.ED ? Attending Dr: ? Ordering Physician: Arsh Savage ?? Date of Service: 07/08/24 ?? Procedure(s): CT abdomen pelvis w IV con ?? Accession Number(s): [id number] ? cc: Name,Memo ARREDONDO; Arsh Savage ? Report Number: ?? [id number]: Total DLP = ??753.00 mGy-cm ? CLINICAL [...] ? DD/ 58 ? TD/TT: 07/08/242258 ? Welding Machine Operator: ? Procedure Note Gage, Image - 07/08/[address] [place] [address] [address] Scan Report Signed Patient: Myles TiptonMR#: [id number] 5 : 1955cct:[id number] Age/Sex: 69 / MADM Date: 07/08/24 Loc: HO.ED Attending Dr: Ordering Physician: Arsh Savage Date of Service: 07/08/24 Procedure(s): CT abdomen pelvis w IV con Accession Number(s): [id number] cc: Memo Alex MD; Arsh Savage Report Number: [id number]: Total DLP = 753.00 mGy-cm CLINICAL HISTORY: [...] in OV> 07/08/242300 DD/ 58 TD/TT: 07/08/242258 Welding Machine Operator: [facility] External Provider IMG CT PROCEDURES Final Result * Blood Culture (First) (07/08/2024 7:20 PM EST) Blood Venous blood specimen / Unknown 07/08/2024 7:20 PM EST 07/08/2024 7:24 PM EST Comment:Blood Narrative [facility] - 07/13/2024 9:24 PM EST Blood Culture (First) No growth after 5 days. Specimen Source: Blood Generic External Data Provider LAB MICROBIOLOGY - GENERAL ORDERABLES Final Result Performing Organization Address City/[facility] de Phone Number [facility] [address] [place] [address] [phone] * Urinalysis, Complete, with Reflex to Culture (07/08/2024 7:20 PM EST) Color Urine Yellow [facility] Appearance Urine Clear [facility] PH 5.5 5.0 - 9.0 [facility] Glucose Urine UA Negative Negative mg/dL [facility] Urine Blood Negative Negative [facility] Specific [place] - Urine 1.015 1.005 - 1.025 [facility] Urine Protein Negative Neg-Trace mg/dL [facility] Urine Ketones Negative Negative mg/dL [facility] Nitrite Urine Negative Negative [facility] Leukocyte Esterase Urine Negative Negative [facility] RBC Urine 0-2 0 - 2 /HPF [facility] Urine WBC 0-5 0 - 5 /HPF [facility] Urine Squamous Epithelial Cell 0-2 0 - 2 /HPF [facility] Urine Bacteria None Seen None Seen [facility] Hyaline Casts, Urine 0-2 0 - 2 /LPF [facility] 07/08/2024 7:20 PM EST 07/08/2024 7:24 PM EST Narrative [facility] - 07/08/2024 7:31 PM EST Urine, Clean Catch us Generic External Data Provider LAB URINE ORDERAB LES Final Result Performing Organization Address [facility] Co de Phone Number [facility] [address] [place] [address] [phone] * (ABNORMAL) CBC auto differential (07/08/2024 7:20 PM EST) Only the most recent of2 resultswithin the time period is included. White Blood Count 9.5 4.8 - 10.8 X10*3/uL [facility] Red Blood Count 4.40(L) 4.60 - 5.80 X10*6/uL [facility] Hemoglobin 13.3(L) 14.0 - 18.0 g/dl [facility] Hematocrit 39.0(L) 42.0 - 52.0 % [facility] Mean Corpuscular Volume 88.6 80.0 - 98.0 fL [facility] Mean Corpuscular Hemoglobin 30.2 27.0 - 33.0 pg [facility] Mean Corpuscular HGB Conc 34.1 31.0 - 36.0 g/dl [facility] Red Cell Distribution Width 12.8 11.0 - 16.0 % [facility] Platelet Count 316 160 - 400 X10*3/uL [facility] Mean Platelet Volume 8.4(L) 9.4 - 12.4 fL [facility] Neutrophils Percent Auto 52.4 45 - 73 % [facility] Imm Gran Pct Auto 0.4 0.0 - 0.4 % [facility] Lymphocytes Percent Auto 28.7 20 - 40 % [facility] Monocytes Percent Auto 8.5 2 - 11 % [facility] Eosinophils Percent Auto 8.9(H) 0 - 4 % [facility] Basophils Percent Auto 1.1 0 - 2 % [facility] NRBC Pct Auto 0.0 0.0 - 0.2 /100WBC [facility] Neutrophils Absolute Auto 5.0 2.0 - 8.3 x10*3/uL [facility] Imm Gran Abs Auto 0.04(H) 0.00 - 0.03 X10*3/uL [facility] Lymphocytes Absolute Auto 2.7 1.2 - 4.9 X10*3/uL [facility] Monocytes Absolute Auto 0.8 0.1 - 1.2 X10*3/uL [facility] Eosinophils Absolute Auto 0.8(H) 0.0 - 0.4 X10*3/uL [facility] Basophils Absolute Auto 0.1 0.0 - 0.2 X10*3/uL [facility] NRBC Abs Auto 0.000 0.0 - 0.012 X10*3/uL [facility] 07/08/2024 7:20 PM EST 07/08/2024 7:24 PM EST us Generic External Data Provider LAB BLOOD ORDERAB LES Final Result Performing Organization Address [facility] Co de Phone Number [facility] [address] [place] [phone] * Lipase (07/08/2024 7:20 PM EST) Lipase 19 8 - 78 U/L [facility] 07/08/2024 7:20 PM EST 07/08/2024 7:24 PM EST Generic External Data Provider LAB BLOOD ORDERAB LES Final Result Performing Organization Address [facility] de Phone Number [facility] [address] [place] [phone] * Lactic Acid (07/08/2024 7:20 PM EST) Lactic Acid 1.1 0.5 - 2.0 mmol/L [facility] 07/08/2024 7:20 PM EST 07/08/2024 7:24 PM EST Generic External Data Provider LAB BLOOD ORDERAB LES Final Result Performing Organization Address [facility] de Phone Number [facility] [address] [place] [phone] * (ABNORMAL) Comprehensive Metabolic Panel (07/08/2024 7:20 PM EST) Only the most recent of2 resultswithin the time period is included. Sodium 138 135 - 145 mmol/L [facility] Potassium 4.2 3.3 - 5.1 mmol/L [facility] Chloride 104 96 - 108 mmol/L [facility] Carbon Dioxide 25 22 - 29 mmol/L [facility] Anion Gap 13 12 - 20 [facility] Urea Nitrogen (BUN) 17(H) 9 - 16 mg/dL [facility] Creatinine, Serum 0.77 0.5 - 1.4 mg/dL [facility] Creatinine Clr Calc Pharmacy 102.4 [facility] Comment:eGFR (calculated fro m the MDRD study equation) and eCrCl(calculated from the Cockcroft-Gault equation) are based ondifferent parameters and may not yield comparable results.If eCrCl result is absurd, please check patient'sheight/weight. Estimated Glomerular Filt Rate >60 [facility] Comment:Chronic Kidney Disea se: Estimated GFR < 60 mL/min/1.81k8Zvhkor Kidney Disease: Estimated GFR < 15 mL/min/1.73m2 Glucose 118(H) 60 - 115 mg/dL [facility] Calcium 8.7 8.4 - 10.2 mg/dL [facility] Bilirubin, Total 0.2 0.0 - 1.0 mg/dL [facility] Aspartate Amino Transferase 22 5 - 37 U/L [facility] Alanine Aminotransferase 16 0 - 40 U/L [facility] Total Protein 7.0 6.5 - 8.0 g/dL [facility] Albumin Level 3.9 3.5 - 5.0 g/dL [facility] Alkaline Phosphatase 82 39 - 117 U/L [facility] 07/08/2024 7:20 PM EST 07/08/2024 7:24 PM EST us Generic External Data Provider LAB BLOOD ORDERAB LES Final Result [facility] [address] [place] [address] [phone] * Blood Culture (Second) (07/08/2024 6:53 PM EST) Blood Venous blood specimen / Unknown 07/08/2024 6:53 PM EST 07/09/2024 7:56 AM EST Comment:Blood Narrative [facility] - 07/09/2024 7:57 AM EST Blood Culture (Second) Test not performed NO SPECIMEN RECEIVED. PATIENT DEPARTED ED Specimen Source: Blood us Generic External Data Provider LAB MICROBIOLOGY - GENERAL ORDERABLES Final Result [facility] [address] [place] [address] [phone] * POCT Hemoglobin (07/07/2024 3:56 PM EST) Hemoglobin 15.0 13.0 - 17.0 QC Media Lot # [id number] Lot# Expiration Date Blood 07/07/2024 3:56 PM EST Memo Alex MD POINT OF CARE TEST ENTER/EDIT OR DERABLES Final Result * Lipid Panel, Standard (01/02/2024 6:36 AM EDT) Triglycerides 112 <150 mg/dL [facility] Comment:Desirable Triglyceri de: less than 150 mg/dLBorderline High Triglyceride 150-199 mg/dLHigh Triglyceride: 200-499 mg/dLVery High Triglyceride: greater than or equal to 5OO mg/dL Cholesterol 154 <200 mg/dL [facility] Comment:Desirable Cholestero l: less than 200 mg/dLBorderline High Cholesterol: 200-239 mg/dLHigh Cholesterol: greater than 239 mg/dL LDL Cholesterol Calculated 83 <100 mg/dL [facility] Comment:Desirable LDL: less than 100 mg/dLNear Optimal/Above Optimal LDL: 110- 129 mg/dLBorderline High LDL: 130-159 mg/dLHigh LDL: 160-189 mg/dLVery High LDL: greater than or equal to 190 mg/dL HDL Cholesterol 49 >40 mg/dL [facility] Comment:Desirable HDL: great er than 40 mg/dL Note: This HDL assay may give artificially low results in patients with liver disease. 01/02/2024 6:36 AM EDT 01/02/2024 6:36 AM EDT Generic External Data Provider LAB BLOOD ORDERAB LES Final Result Performing Organization Address City/[facility]/ZIP Co de Phone Number [facility] [address] [place] [address] [phone] * Hepatitis Panel, General (09/01/2023 11:55 AM EDT) Hepatitis A IgM Nonreactive Nonreactive [facility] Comment:IgM antibodies to LANDEROS V not detected; does not exclude earlyacute or recovered HAV infection. ~Hepatitis B Surface Antibody REACTIVE Nonreactive [facility] Comment:REACTIVE: > 11.99 mI U/mL Hepatitis B Core Antibody Nonreactive Nonreactive [facility] Hepatitis C Antibody Nonreactive Nonreactive [facility] Comment:Antibodies to HCV no t detected; does not exclude early acuteHCV infection. Hepatitis B Surface Ag Negative Negative [facility] Blood 09/01/2023 11:5 5 AM EDT 09/01/2023 1:48 PM EDT Sonia Ladd ORTHOPEDIC RADIOLOGIC TECHNOLOGIST LAB BLOOD ORDERABLES Final Res ult Performing Organization Address [facility]/ZIP Co de Phone Number [facility] [address] [place] [address] [phone] * Colonoscopy (03/04/2023) Colonoscopy Normal Normal Comment:Negative result, Rep eat in 3-5 years Memo Alex MD HEALTH MAINTENANCE Final Result from Last 3 Months or Most Recently Relevant to Health Maintenance [facility] [place] [id number] Care Teams Customs Collector Relationship Specialty Start Date End Date Name, MD Mmeo [address] [place] [address] PCP - General Family Medicine 08/30/15
--- OUTSIDE RECORDS SUMMARY | 2024-08-04 06:34 | XMS_ITS | Encounter Summary ---
Author Organization [employer] Address [address] [place] [address] 7 [place] [address] Care Team Providers Care Fractionation Supervisor Name Role Phone Name, Memo ARREDONDO Primary Care Provider [phone] Reason for Visit * Reason Comments Med Refill Encounter Details Date Type Department Care Team ([facility] st Contact Info) Description 03/23/2024 Refill [facility] [address] [place], [place] [phone] Name, MD Memo [address] [place] [address] Social History Tobacco Use Types Packs/Day Years [...] Info) Description 08/06/2024 10:00 AM EST Telemedicine [facility] [address] [place] [address] 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 RN documented as of this encounter Visit Diagnoses Not on filedocumented in this encounter Additional Health Concerns Assessment Noted Time PHQ-9 Depression Total Score: 0 07/17/19 24 10:49 AM EST documented as of this encounter Care Teams Fractionation Supervisor Relationship Specialty Start Date End Date Name, MD Memo [address] [place] [address] PCP - General Family Medicine 08/30/15 documented as of this encounter
--- OUTSIDE RECORDS SUMMARY | 2024-08-04 06:34 | XMS_ITS | Encounter Summary ---
Author Organization [employer] Address [address] [place] [address] 7 [place] [address] Care Team Providers Care Sfdc Technical Architect Name Role Phone Name, Memo ARREDONDO Primary Care Provider [phone] Reason for Visit * Reason Comments Med Refill Encounter Details Date Type Department Care Team ([facility] st Contact Info) Description 10/25/[address] [facility] [address] [place], [place] [phone] Name, MD Memo [address] [place] [address] Chronic pain syndrome Social History Tobacco Use [...] 08/06/2024 10:00 AM EST Telemedicine [facility] [address] [place] [address] 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 RN documented as of this encounter Visit Diagnoses Diagnosis Chronic pain syndrome documented in this encounter Additional Health Concerns Assessment Noted Time PHQ-9 Depression Total Score: 9 06/27/19 10:17 AM EST documented as of this encounter Care Teams Sfdc Technical Architect Relationship Specialty Start Date End Date Name, MD Memo [address] [place] [phone] PCP - General Family Medicine 08/30/15 documented as of this encounter
--- OUTSIDE RECORDS SUMMARY | 2024-08-04 06:34 | XMS_ITS | Encounter Summary ---
Author Organization [employer] Address [address] [place] [address] 7 [place] [address] Care Team Providers Care Sports Bookmaker Name Role Phone Name, Memo ARREDONDO Primary Care Provider [phone] Encounter Details Date Type Department Care Team (Late Contact Info) Description [facility] [address] [place], [place] [phone] Name, MD Memo [address] [place], [place] [phone] Social History Tobacco Use Types Packs/Day Years [...] Telemedicine [facility] [address] [place], [place] [phone] 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, RN documented as of this encounter Visit Diagnoses Not on filedocumented in this encounter Additional Health Concerns Assessment Noted Time PHQ-9 Depression Total Score: 9 06/27/19 23 10:17 AM EST documented as of this encounter Care Teams Sports Bookmaker Relationship Specialty Start Date End Date Name, MD Memo [address] [place] [address] PCP - General Family Medicine 08/30/15 documented as of this encounter
--- OUTSIDE RECORDS SUMMARY | 2024-08-04 06:34 | XMS_ITS | Encounter Summary ---
Author Organization [employer] Address [address] [place] [address] 7 [place] [address] Care Team Providers Care News Library Director Name Role Phone Name, Memo ARREDONDO Primary Care Provider [phone] Reason for Visit * Reason Onset Date Comments Med Refill 07/09/2024 Encounter Details Date Type Department Care Team ([facility] st Contact Info) Description 07/09/2024 Refill [facility] [address] [place], [place] [phone] Name, MD Memo [address] [place] [address] Chronic pain syndrome Social History Tobacco Use [...] encounter Miscellaneous Notes * Telephone Encounter - Koffi Duenas RN - 07/13/2024 11:25 AM EST [...] immediate release tablet To be sent to: [facility] pharmacy documented in this encounter Plan of Treatment Upcoming Encounters Date Type Department Care Team (Late st Contact Info) Description 08/06/2024 10:00 AM EST Telemedicine [facility] [address] [place] [phone] Trista, Shahla, RN documented as of this encounter Visit Diagnoses Diagnosis Chronic pain syndrome documented in this encounter Additional Health Concerns Assessment Noted Time PHQ-9 Depression Total Score: 0 07/17/19 24 10:49 AM EST documented as of this encounter Care Teams News Library Director Relationship Specialty Start Date End Date Name, MD Memo [address] [place] [address] PCP - General Family Medicine 08/30/15 documented as of this encounter
--- OUTSIDE RECORDS SUMMARY | 2024-08-04 06:34 | XMS_ITS | Encounter Summary ---
Author Organization [employer] Address [address] [place] [address] 7 [place] [address] Care Team Providers Care Low Altitude Air Defense Officer Name Role Phone Name, Memo ARREDONDO Primary Care Provider [phone] Reason for Visit * Reason Comments Med Refill Encounter Details Date Type Department Care Team ([facility] st Contact Info) Description 07/11/2024 Refill [facility] [address] [place] [address] Camille Alexandra, PRIYANKA [address] [place] [address] Social History Tobacco Use Types Packs/Day Years [...] EST Telemedicine [facility] [address] [place] [address] 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, RN documented as of this encounter Visit Diagnoses Not on filedocumented in this encounter Additional Health Concerns Assessment Noted Time PHQ-9 Depression Total Score: 0 07/17/19 24 10:49 AM EST documented as of this encounter Care Teams Low Altitude Air Defense Officer Relationship Specialty Start Date End Date Name, MD Memo [address] [place] [address] PCP - General Family Medicine 08/30/15 documented as of this encounter
[2024-08-04] MEDS: Barium Sulfate Oral (Berry) 450 ML ORAL.SUSP PO ×2 (09:42→09:43)
[2024-08-04] MEDS: iohexoL 350 MG/ML 100 ML INFUS..BTL IV (09:42)
== END 2024-08-04 06:31 | disposition home or self-care (01) ==
LOC: HO.CT 06:30
PROVIDERS: PCP Internal Medicine Geriatric Medicine; Visit Provider Internal Medicine Geriatric Medicine
DX: R10.32 Left lower quadrant pain (principal)
CPT/HCPCS: 74177; Q9967

== ENCOUNTER → 2024-08-04 06:32 | Outpatient (BNV) | payer MEDICARE, MEDICAID, SELFPAY | PROVIDERS: PCP Internal Medicine Geriatric Medicine; Visit Provider Radiology Vascular & Interventional Radiology | DX: K56.41 Fecal impaction (principal) | CPT/HCPCS: 74177 ==

== ENCOUNTER 2024-09-02 06:26 | Day surgery (SDC) | payer MEDICARE, MEDICAID, SELFPAY ==
--- OUTSIDE RECORDS SUMMARY | 2024-07-30 12:15 | XMS_ITS | Encounter Summary ---
Author Organization [employer] Address [address] [facility] 7t [place] [address] Care Team Providers Care Program Coordinator Name Role Phone Name, Memo ARREDONDO Primary Care Provider [phone] Reason for Visit * Reason Onset Date Comments triage 06/06/2022 Encounter Details Date Type Department Care Team ([facility] st Contact Info) Description 06/06/2022 Telephone [facility] MED[facility]INE 230 [place] [address] Name, MD Memo 230 [place] [address] triage Social History Tobacco Use Types Packs/Day [...] visit with PRIYANKA Schwab at 1115am . [facility] unable to schedule a tele visit and [...] 08/06/2024 10:00 AM EST Telemedicine [facility] MEDICINE [address] [place] [address] 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 RN documented as of this encounter Visit Diagnoses Not on filedocumented in this encounter Care Teams Program Coordinator Relationship Specialty Start Date End Date Name, MD Memo [address] [place] [address] PCP - General Family Medicine 08/30/15 documented as of this encounter
--- OUTSIDE RECORDS SUMMARY | 2024-07-30 12:15 | XMS_ITS | Encounter Summary ---
Author Organization [employer] Address [address] [place] [address] 7 [place] [address] Care Team Providers Care Parts Processor Name Role Phone Name, Memo ARREDONDO Primary Care Provider [phone] Encounter Details Date Type Department Care Team ([facility] Contact Info) Description 06/06/2022 Telephone [facility] MEDICINE [address] [place] [address] Name, MD Memo [address] [place] [address] Social History Tobacco Use Types Packs/Day Years [...] Info) Description 08/06/2024 10:00 AM EST Telemedicine [facility] MEDICINE [address] [place] [address] 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 RN documented as of this encounter Visit Diagnoses Not on filedocumented in this encounter Care Teams Parts Processor Relationship Specialty Start Date End Date Name, MD Memo [address] [place] [address] PCP - General Family Medicine 08/30/15 documented as of this encounter
--- OUTSIDE RECORDS SUMMARY | 2024-07-30 12:15 | XMS_ITS | Encounter Summary ---
Author Organization [employer] Address [address] [place] [address] 7 [place] [address] Care Team Providers Care Chief Engineering Division Name Role Phone Name, Memo ARREDONDO Primary Care Provider [phone] Encounter Details Date Type Department Care Team (Latest Contact Info) Description 07/09/2021 Abstract [facility] CONVERSIONS Dental, Provider, DDS Social History Tobacco [...] 08/06/2024 10:00 AM EST Telemedicine [facility] MEDICINE [address] [place] [address] 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, RN documented as of this encounter Visit Diagnoses Not on filedocumented in this encounter Care Teams Chief Engineering Division Relationship Specialty Start Date End Date Name, MD Memo [address] [place] [address] PCP - General Family Medicine 08/30/15 documented as of this encounter
--- OUTSIDE RECORDS SUMMARY | 2024-07-30 12:15 | XMS_ITS | Encounter Summary ---
Author Organization [employer] Address [address] [place] [address] 7 [place] [address] Care Team Providers Care Catheter Finisher And Inspector Name Role Phone Name, Memo ARREDONDO Primary Care Provider Reason for Visit * Reason Onset Date Comments returning call back 05/14/2022 Encounter Details Date Type Department Care Team (Late st Contact Info) Description 05/14/2022 Telephone [facility] MEDICINE [address] [place] [address] Name, MD Memo [address] [place] [address] returning call back Social History Tobacco Use [...] be called back. Please contact pt at [phone] documented in this encounter Plan of Treatment Upcoming Encounters Date Type Department Care Team (Late st Contact Info) Description 08/06/2024 10:00 AM EST Telemedicine [facility] MEDICINE [address] [place] [address] 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, VON documented as of this encounter Visit Diagnoses Not on filedocumented in this encounter Care Teams Catheter Finisher And Inspector Relationship Specialty Start Date End Date Name, MD Memo [address] [place] [address] PCP - General Family Medicine 08/30/15 documented as of this encounter
--- OUTSIDE RECORDS SUMMARY | 2024-07-30 12:15 | XMS_ITS | Encounter Summary ---
Author Organization [employer] Address [address] [facility] [address] 7[address] [place] [address] Care Team Providers Care Elementary School Art Teacher Name Role Phone Name, Memo ARREDONDO Primary Care Provider [phone] Encounter Details Date Type Department Care Team ([facility] st Contact Info) Description 07/08/2024 Telephone [facility] MEDICINE [address] [place], [place] [phone] Elisa Mercedes, VON Social History Tobacco Use [...] Info) Description 08/06/2024 10:00 AM EST Telemedicine [facility] MEDICINE [address] [place] [address] 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, VON documented as of this encounter Visit Diagnoses Not on filedocumented in this encounter Additional Health Concerns Assessment Noted Time PHQ-9 Depression Total Score: 0 07/17/19 24 10:49 AM EST documented as of this encounter Care Teams Elementary School Art Teacher Relationship Specialty Start Date End Date Name, MD Memo [address] [place] [address] PCP - General Family Medicine 08/30/15 documented as of this encounter
--- OUTSIDE RECORDS SUMMARY | 2024-07-30 12:15 | XMS_ITS | Encounter Summary ---
Author Organization [employer] Address [address] [place] [address] 7 [place] [address] Care Team Providers Care Collection Systems Worker Name Role Phone Name, Memo ARREDONDO Primary Care Provider [phone] Reason for Visit * Reason Onset Date Comments Nurse Triage 09/03/2023 Encounter Details Date Type Department Care Team ([facility] st Contact Info) Description 09/03/2023 Telephone [facility] MEDICINE [address] [place], [place] [phone] Name, MD Memo [address] [place] [address] Nurse Triage Social History Tobacco Use Types [...] EDT Triage call Pt was seen [facility] [place] , report is on the [...] if feels that symptoms continue to worsen. Soil Science Professor will forward this triage to PCP and nursing team. Pt agreeswith disposition and home care advised. Insurance is verified as active. Protocol Used: Abdominal Pain - Male (Adult) Protocol-Based Disposition: Go to ED[facility] (or to Office with PCP Approval) [...] accepted this outcome Pt inform went to [facility] on 09/02/23 but is still having senior sql server developer pain documented in this encounter Plan of Treatment Upcoming Encounters Date Type Department Care Team (Late st Contact Info) Description 08/06/2024 10:00 AM EST Telemedicine [facility] MEDICINE [address] [place] [address] 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, VON documented as of this encounter Visit Diagnoses Not on filedocumented in this encounter Additional Health Concerns Assessment Noted Time PHQ-9 Depression Total Score: 0 07/17/19 24 10:49 AM EST documented as of this encounter Care Teams Collection Systems Worker Relationship Specialty Start Date End Date Name, MD Memo [address] [place] [address] PCP - General Family Medicine 08/30/15 documented as of this encounter
--- OUTSIDE RECORDS SUMMARY | 2024-07-30 12:15 | XMS_ITS | Encounter Summary ---
Author Organization [employer] Address [address] [place] [address] 7t [place] [address] Care Team Providers Care Five Piece Expansion Maker Hand Name Role Phone Name, Memo ARREDONDO Primary Care Provider Reason for Visit * Reason Comments Med Refill Encounter Details Date Type Department Care Team ([facility] st Contact Info) Description 04/30/2023 Refill [facility] 230 [place], [place] [phone] [facility] 230 [place], [place] [phone] Coronary artery disease involving [place] heart without angina pectoris, unspecified vessel or [...] Info) Description 08/06/2024 10:00 AM EST Telemedicine [facility] MEDICINE [address] [place] [address] 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 RN documented as of this encounter Visit Diagnoses Diagnosis Coronary artery disease involving [place] heart without angina pectoris, unspecified vessel or lesion type documented in this encounter Additional Health Concerns Assessment Noted Time PHQ-9 Depression Total Score: 9 06/27/19 23 10:17 AM EST documented as of this encounter Care Teams Five Piece Expansion Maker Hand Relationship Specialty Start Date End Date Name, MD Memo [address] [place] [address] PCP - General Family Medicine 08/30/15 documented as of this encounter
--- OUTSIDE RECORDS SUMMARY | 2024-07-30 12:15 | XMS_ITS | Encounter Summary ---
Author Organization [employer] Address [address] [place] [address] 7[address] [place] [address] Care Team Providers Care Senior Operations Manager Name Role Phone Name, Memo ARREDONDO Primary Care Provider Encounter Details Date Type Department Care Team ([facility] Contact Info) Description 07/08/2024 Orders Only GENERIC [...] Info) Description 08/06/2024 10:00 AM EST Telemedicine [facility] [address] [place] [address] 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 RN documented as of this encounter Procedures Procedure Name Priority Date/Time Associated Diagnosis Comments CT ABDOMEN PELVIS W CONTRAST Routine 07/08/2024 10:59 PM EST BLOOD CULTURE (FIRST) Routine 07/08/2024 7:20 PM EST URINALYSIS, COMPLETE, WITH REFLEX TO CULTURE Routine 07/08/2024 7:20 PM EST CBC WITH AUTO DIFFERENTIAL Routine 07/08/2024 7:20 PM EST LIPASE Routine 07/08/2024 7:20 PM EST LACTIC ACID Routine 07/08/2024 7:20 PM EST COMPREHENSIVE METABOLIC PANEL Routine 07/08/2024 7:20 PM EST BLOOD CULTURE (SECOND) Routine 6:53 PM EST documented in this encounter Results * CT Abdomen Pelvis w/ Contrast (07/08/2024 10:59 PM EST) Anatomical Region Laterality Modality Body, Pelvis, Abdomen Computed T omography 07/08/2024 10:5 9 PM EST Narrative 07/08/2024 11:01 PM EST ? [facility] ?[address] ?[place] [address] ? CT Scan Report ? Signed ? Patient: Ommerle,Peter ?MR#: [id number] ?? 5 ? : 1955 ?Acct:[id number] ? Age/Sex: 69 / M ?ADM Date: 07/08/24 ? Loc: HO.ED ? Attending Dr: ? Ordering Physician: Arsh Savage ?? Date of Service: 07/08/24 ?? Procedure(s): CT abdomen pelvis w IV con ?? Accession Number(s): [id number] ? cc: Name,Memo ARREDONDO; Arsh Savage ? Report Number: ?? [id number]: Total DLP = ??753.00 mGy-cm ? CLINICAL HISTORY: LLQ pain ? CT abdomen and pelvis with contrast ? Comparison: CT - CT ABDOMEN PELVIS W IV CON - 07/08/24 21:57 EST ? Findings: ?? No consolidation or effusion. ?? Cystic changes in right lower lobe. ? Gallbladder is surgically absent. Stable mild intrahepatic biliary ductal ?? dilatation in left lobe more than right. Common bile duct is not dilated. ?? Interval resolution of intrahepatic pneumobilia in the left hepatic lobe. ?? Stable calcification of the dome of the liver likely a granuloma. ?? The spleen, pancreas and adrenal glands appear unremarkable. ?? Enhancement of bilateral kidneys with no ureteral stones and no ?? hydronephrosis hydroureter. Nonspecific minimal bilateral perinephric ?? stranding. ? No bowel obstruction, pneumoperitoneum, or pneumatosis. ?? Appendix not identified. No pericecal inflammatory changes. Mild ?? diverticulosis. Small duodenal diverticulum. ?? Wall thickening of sigmoid colon and rectum similar to previous ?? examination with no adjacent fat stranding. ?? Prostate stable in size. Stable prominence of seminal vesicles. Urinary ?? bladder is unremarkable. No free fluid. ?? Atherosclerotic vascular disease with no aneurysm of the abdominal aorta. ?? No acute fracture. Stable degenerative changes of the spine and previous ?? right hip arthroplasty. ? IMPRESSION: ?? 1. Circumferential wall thickening of sigmoid colon and rectum also seen ?? on previous examination. No adjacent fat stranding in this could be a ?? chronic finding. ? 2. Previous cholecystectomy with stable mild intrahepatic biliary ductal ?? dilatation. Common bile duct is normal. ?? 3. Diverticulosis and additional nonacute findings as described. ? This document has been electronically signed by: Lani Muse MD on ?? 07/08/2024 22:59:48 ? Dictated By: ?Lani Muse MD ? Signed By: ?<Electronically signed by Lani Muse MD in OV> ? 07/08/24 2301 ? DD/ 58 ? TD/TT: 07/08/242258 ? [employer] Power Shovel Operator: ? Procedure Note Donotjamainterpreter, Image - 07/08/[address] [address] [address] Scan Report Signed Patient: Myles TiptonMR#: [id number] 5 : 3Acct:[id number] Age/Sex: 69 / MADM Date: 07/08/24 Loc: HO.ED Attending Dr: Ordering Physician: Arsh Savage Date of Service: 07/08/24 Procedure(s): CT abdomen pelvis w IV con Accession Number(s): [id number] cc: Name,Memo ARREDONDO; Arsh Savage Report Number: [id number]: Total DLP = 753.00 mGy-cm CLINICAL HISTORY: LLQ pain CT abdomen and pelvis with contrast Comparison: CT - CT ABDOMEN PELVIS W IV CON - 07/08/24 21:57 EST Findings: No consolidation or effusion. Cystic changes in right lower lobe. Gallbladder is surgically absent. Stable mild intrahepatic biliary ductal dilatation in left lobe more than right. Common bile duct is not dilated. Interval resolution of intrahepatic pneumobilia in the left hepatic lobe. Stable calcification of the dome of the liver likely a granuloma. The spleen, pancreas and adrenal glands appear unremarkable. Enhancement of bilateral kidneys with no ureteral stones and no hydronephrosis hydroureter. Nonspecific minimal bilateral perinephric stranding. No bowel obstruction, pneumoperitoneum, or pneumatosis. Appendix not identified. No pericecal inflammatory changes. Mild diverticulosis. Small duodenal diverticulum. Wall thickening of sigmoid colon and rectum similar to previous examination with no adjacent fat stranding. Prostate stable in size. Stable prominence of seminal vesicles. Urinary bladder is unremarkable. No free fluid. Atherosclerotic vascular disease with no aneurysm of the abdominal aorta. No acute fracture. Stable degenerative changes of the spine and previous right hip arthroplasty. IMPRESSION: 1. Circumferential wall thickening of sigmoid colon and rectum also seen on previous examination. No adjacent fat stranding in this could be a chronic finding. 2. Previous cholecystectomy with stable mild intrahepatic biliary ductal dilatation. Common bile duct is normal. 3. Diverticulosis and additional nonacute findings as described. This document has been electronically signed by: Lani Muse MD on 07/08/2024 22:59:48 Dictated By: Lani Muse MD Signed By: <Electronically signed by Lani Msue MD in OV> 07/08/242300 DD/ 58 TD/TT: 07/08/242258 [employer] Shovel Operator: [facility] External Provider IMG CT PROCEDURES Final Result * Blood Culture (First) (07/08/2024 7:20 PM EST) Blood Venous blood specimen / Unknown 07/08/2024 7:20 PM EST 07/08/2024 7:24 PM EST Comment:Blood Narrative [facility] - 07/13/2024 9:24 PM EST Blood Culture (First) No growth after 5 days. Specimen Source: Blood Generic External Data Provider LAB MICROBIOLOGY - GENERAL ORDERABLES Final Result Performing Organization Address [facility]/ZIP Co de Phone Number [facility] [address] [place] [phone] * Lipase (07/08/2024 7:20 PM EST) Lipase 19 8 - 78 U/L [facility] 07/08/2024 7:20 PM EST 07/08/2024 7:24 PM EST Generic External Data Provider LAB BLOOD ORDERAB LES Final Result Performing Organization Address [facility]/ZIP Co de Phone Number [facility] [address] [place] [phone] * (ABNORMAL) Comprehensive Metabolic Panel (07/08/2024 7:20 PM EST) Sodium 138 135 - 145 mmol/L [facility] Potassium 4.2 3.3 - 5.1 mmol/L [facility] Chloride 104 96 - 108 mmol/L [facility] Carbon Dioxide 25 22 - 29 mmol/L [facility] Anion Gap 13 12 - 20 [facility] Urea Nitrogen (BUN) 17(H) 9 - 16 mg/dL [facility] Creatinine, Serum 0.77 0.5 - 1.4 mg/dL [facility] Creatinine Clr Calc Pharmacy 102.4 [facility] Comment:eGFR (calculated fro m the MDRD study equation) and eCrCl(calculated from the Cockcroft-Gault equation) are based ondifferent parameters and may not yield comparable results.If eCrCl result is absurd, please check patient'sheight/weight. Estimated Glomerular Filt Rate >60 [facility] Comment:Chronic Kidney Disea se: Estimated GFR < 60 mL/min/1.48d7Xtmijy Kidney Disease: Estimated GFR < 15 mL/min/1.73m2 Glucose 118(H) 60 - 115 mg/dL [facility] Calcium 8.7 8.4 - 10.2 mg/dL [facility] Bilirubin, Total 0.2 0.0 - 1.0 mg/dL [facility] Aspartate Amino Transferase 22 5 - 37 U/L [facility] Alanine Aminotransferase 16 0 - 40 U/L [facility] Total Protein 7.0 6.5 - 8.0 g/dL [facility] Albumin Level 3.9 3.5 - 5.0 g/dL [facility] Alkaline Phosphatase 82 39 - 117 U/L [facility] 07/08/2024 7:20 PM EST 07/08/2024 7:24 PM EST us Generic External Data Provider LAB BLOOD ORDERAB LES Final Result [facility] [address] [place] [phone] * Lactic Acid (07/08/2024 7:20 PM EST) Lactic Acid 1.1 0.5 - 2.0 mmol/L [facility] 07/08/2024 7:20 PM EST 07/08/2024 7:24 PM EST us Generic External Data Provider LAB BLOOD ORDERAB LES Final Result Performing Organization Address [facility] de Phone Number [facility] [address] [place] [phone] * Urinalysis, Complete, with Reflex to Culture (07/08/2024 7:20 PM EST) Color Urine Yellow [facility] Appearance Urine Clear [facility] PH 5.5 5.0 - 9.0 [facility] Glucose Urine UA Negative Negative mg/dL [facility] Urine Blood Negative Negative [facility] Specific [place] - Urine 1.015 1.005 - 1.025 [facility] Urine Protein Negative Neg-Trace mg/dL [facility] Urine Ketones Negative Negative mg/dL [facility] Nitrite Urine Negative Negative [facility] Leukocyte Esterase Urine Negative Negative [facility] RBC Urine 0-2 0 - 2 /HPF [facility] Urine WBC 0-5 0 - 5 /HPF [facility] Urine Squamous Epithelial Cell 0-2 0 - 2 /HPF [facility] Urine Bacteria None Seen None Seen [facility] Hyaline Casts, Urine 0-2 0 - 2 /LPF [facility] 07/08/2024 7:20 PM EST 07/08/2024 7:24 PM EST Narrative [facility] - 07/08/2024 7:31 PM EST Urine, Clean Catch us Generic External Data Provider LAB URINE ORDERAB LES Final Result Performing Organization Address [facility]/ZIP Co de Phone Number [facility] [address] [place] [phone] * (ABNORMAL) CBC auto differential (07/08/2024 7:20 PM EST) White Blood Count 9.5 4.8 - 10.8 X10*3/uL [facility] Red Blood Count 4.40(L) 4.60 - 5.80 X10*6/uL [facility] Hemoglobin 13.3(L) 14.0 - 18.0 g/dl [facility] Hematocrit 39.0(L) 42.0 - 52.0 % [facility] Mean Corpuscular Volume 88.6 80.0 - 98.0 fL [facility] Mean Corpuscular Hemoglobin 30.2 27.0 - 33.0 pg [facility] Mean Corpuscular HGB Conc 34.1 31.0 - 36.0 g/dl [facility] Red Cell Distribution Width 12.8 11.0 - 16.0 % [facility] Platelet Count 316 160 - 400 X10*3/uL [facility] Mean Platelet Volume 8.4(L) 9.4 - 12.4 fL [facility] Neutrophils Percent Auto 52.4 45 - 73 % [facility] Imm Gran Pct Auto 0.4 0.0 - 0.4 % [facility] Lymphocytes Percent Auto 28.7 20 - 40 % [facility] Monocytes Percent Auto 8.5 2 - 11 % [facility] Eosinophils Percent Auto 8.9(H) 0 - 4 % [facility] Basophils Percent Auto 1.1 0 - 2 % [facility] NRBC Pct Auto 0.0 0.0 - 0.2 /100WBC [facility] Neutrophils Absolute Auto 5.0 2.0 - 8.3 x10*3/uL [facility] Imm Gran Abs Auto 0.04(H) 0.00 - 0.03 X10*3/uL [facility] Lymphocytes Absolute Auto 2.7 1.2 - 4.9 X10*3/uL [facility] Monocytes Absolute Auto 0.8 0.1 - 1.2 X10*3/uL [facility] Eosinophils Absolute Auto 0.8(H) 0.0 - 0.4 X10*3/uL [facility] Basophils Absolute Auto 0.1 0.0 - 0.2 X10*3/uL [facility] NRBC Abs Auto 0.000 0.0 - 0.012 X10*3/uL [facility] 07/08/2024 7:20 PM EST 07/08/2024 7:24 PM EST Generic External Data Provider LAB BLOOD ORDERAB LES Final Result Performing Organization Address [facility]/ZIP Co de Phone Number [facility] [address] [place] [phone] * Blood Culture (Second) (07/08/2024 6:53 PM EST) Blood Venous blood specimen / Unknown 07/08/2024 6:53 PM EST 07/09/2024 7:56 AM EST Comment:Blood Narrative [facility] - 07/09/2024 7:57 AM EST Blood Culture (Second) Test not performed NO SPECIMEN RECEIVED. PATIENT DEPARTED ED Specimen Source: Blood Generic External Data Provider LAB MICROBIOLOGY - GENERAL ORDERABLES Final Result Performing Organization Address [facility] Co de Phone Number [facility] [address] [place] [phone] documented in this encounter Visit Diagnoses Not on filedocumented in this encounter Additional Health Concerns Assessment Noted Time PHQ-9 Depression Total Score: 0 07/17/19 24 10:49 AM EST documented as of this encounter Care Teams Senior Operations Manager Relationship Specialty Start Date End Date Name, MD Memo [address] [place] [phone] PCP - General Family Medicine 08/30/15 documented as of this encounter
--- OUTSIDE RECORDS SUMMARY | 2024-07-30 12:15 | XMS_ITS ---
Author Organization [facility] Address [address] [place] [address] Care Team Providers Care E Learning Designer Name Role Phone Name Memo ARREDONDO Primary Care Provider Rolly Manzanares Unavailable [phone] Allergies Allergen (clinical drug ingredient) Drug/Non Drug [...] Ordered Date Performed Result Body Sit e 78919-RKSICJU NAIL, 6 OR MORE 07/22/2023 N/A 79393-TUXO SKIN LESIONS, 2 TO 4 07/22/2023 N/A Encounters Encounter Location Date Provider Diagnosis [facility] [place] [address] [place] [address] 07/22/2023 Rolly Herman Atherosclerosis of [place] artery of both lower extremities, with unspecified presence of clinical manifestation I70.203 ; Onychomycosis B35.1 ; Pain of toe of right foot M79.674 and Pain of toe of left foot M79.675 Assessments Encounter Date Diagnosis (ICD Code) Assessment Notes Treatment Notes Treatment Clinical Notes Section Notes 07/22/2023 Atherosclerosis of [place] artery of both lower extremities, with unspecified presence of clinical manifestation (ICD-10 - I70.203) 07/22/2023 Onychomycosis (ICD-10 - B35.1) 07/22/2023 Pain of toe of right foot (ICD-10 - M79.674) 07/22/2023 Pain of toe of left foot (ICD-10 - M79.675) Plan Of Treatment Pending Test Test Name Order Date 16640-MXSZGKB NAIL, 6 OR MORE 07/22/2023 87949-URGN SKIN LESIONS, 2 TO 4 07/22/19 24 [...] as necessary. Patient chooses, no pharmaceutical tx (02877) Keratoma Treatment Parring or Cutting o f Benign Hyperkeratotic Lesion(s) 68678 (2-4 Lesions) - The Benign hyperkeratotic lesions, as described above were pared, and/or cut utilizing a sterile #15 blade, tissue nippers, and/or dremel, Q8 Progress Notes * Myles JARADOB:1955 (68 yo M)Acc No.[id number]:07/22/2023 Progress Note Patient:?Myles Jara Provider:?Rolly Herman DPM :1955???Age:68 Y???Sex:Male Phillip e:07/22/2023 Address:[address] [place], [place] [phone] Pcp:Memo Alex MD Subjective: * Chief Complaints: [...] Hospitalization/Major Diagno stic Procedure:?Coronary artery disease involving [place] coronary artery of [place] heart with unstable angina pectoris Cardiac Cath and Stent C -Ugent Care painful L migel Ingrown? [facility] 3x between 5 [...] * Assessment: 1.?Onychomycosis - B35.1?2.? Atherosclerosis of [place] artery of both lower extremities, with unspecified presence of clinical manifestation - I70.203?3.?Pain of toe of right foot - M79.674?4.?Pain of toe of left foot - M79.675? Plan: * Treatment: 2.?Atherosclerosis of [place] artery of both lower extremities, with unspecified presence of clinical manifestation?Procedure: 10779-VGRM SKIN LESIONS, 2 TO 4 * Procedures:?Debride Nail 6-10:?Nail debridement?Nail debridement performed extensively to reduce/remove overall nail length, girth, thickness, subungual debris, and necrotic tissue, by manual and electrical means through the use of a nail nipper and/or dremel, to more viable healthy nail plate or bed tissue 1-5. Silver nitrate used for any petechial bleeding as necessary. Patient chooses, no pharmaceutical tx (70696).?Keratoma Treatment:?Parring or Cutting of Benign Hyperkeratotic Lesion(s)?36100 (2-4 Lesions) - The Benign hyperkeratotic lesions, as described above were pared, and/or cut utilizing a sterile #15 blade, tissue nippers, and/or dremel, Q8.? * Procedure Codes:?74669 DEBRI DE NAIL, 6 OR MORE, Modifiers: XS 41942 TRIM SKIN LESIONS, 2 TO 4, Modifiers: XS , Q8 * Follow Up:?prn * Images: * Sign off status: Completed true * Provider:?Rolly Herman DPM Date:?2023 Generated for James hatfield/Jorge Alberto/Robbin on:?07/30/2024 12:15 PM EST History and Physical Notes * [...]
--- OUTSIDE RECORDS SUMMARY | 2024-07-30 12:15 | XMS_ITS | Encounter Summary ---
Author Organization [employer] Address [address] [place] [address] [address] [place] [address] Care Team Providers Care Do All Operator Name Role Phone Name, Memo ARREDONDO Primary Care Provider [phone] Reason for Visit * Reason Comments Med Refill Encounter Details Date Type Department Care Team ([facility] st Contact Info) Description 02/03/2024 Refill [facility] [address] [place], [place] [phone] Name, MD Memo [address] [place] [address] Chronic pain syndrome Social History Tobacco Use [...] Info) Description 08/06/2024 10:00 AM EST Telemedicine [facility] [address] [place] [address] 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 RN documented as of this encounter Visit Diagnoses Diagnosis Chronic pain syndrome documented in this encounter Additional Health Concerns Assessment Noted Time PHQ-9 Depression Total Score: 0 07/17/19 24 10:49 AM EST documented as of this encounter Care Teams Do All Operator Relationship Specialty Start Date End Date Name, MD Memo [address] [place] [address] PCP - General Family Medicine 08/30/15 documented as of this encounter
--- OUTSIDE RECORDS SUMMARY | 2024-07-30 12:15 | XMS_ITS | Encounter Summary ---
Author Organization [employer] Address [address] [facility] [address] [place] [address] Care Team Providers Care Supervisor Fabrication Name Role Phone Name, Memo ARREDONDO Primary Care Provider [phone] Reason for Visit * Reason Onset Date Comments triage 06/05/2022 Encounter Details Date Type Department Care Team ([facility] st Contact Info) Description 06/05/2022 Telephone [facility] [address] [place] [address] Name, MD Memo [address] [place] [address] triage Social History Tobacco Use Types Packs/Day [...] Info) Description 08/06/2024 10:00 AM EST Telemedicine [facility] [address] [place] [address] 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 RN documented as of this encounter Visit Diagnoses Not on filedocumented in this encounter Care Teams Supervisor Fabrication Relationship Specialty Start Date End Date Name, MD Memo [address] [place] [address] PCP - General Family Medicine 08/30/15 documented as of this encounter
--- OUTSIDE RECORDS SUMMARY | 2024-07-30 12:15 | XMS_ITS | Patient Health Record ---
Author Organization [facility] Address [address] [place] [address] Care Team Providers Care Active Directory Engineer Name Role Phone Name Memo ARREDONDO Primary Care Provider Rolly Manzanares Unavailable [phone] Allergies Allergen (clinical drug ingredient) Drug/Non Drug [...] W/U Status Risk Notes Problem Atherosclerosis of [place] arteries of the extremities ([id number]) Atherosclerosis of [place] artery of both lower extremities, with unspecified presence of clinical manifestation (I70.203) Active confirmed Encounters Encounter Location Date Provider Diagnosis [facility] [place] [address] [place] [address] 09/30/2023 Rolly Herman Plan Of Treatment Pending Test Test Name Order Date X ray : Foot, left 3V 01/23/2022 X ray : Foot, left 3V 11/29/2022 48282-CNLQBPK NAIL, 6 OR MORE 02/25/2023 48593-TWISSAU NAIL, 6 OR MORE 11/29/2022 21133-XWYQGUJ NAIL, 6 OR MORE 07/22/2023 61296-SPGEVCS NAIL, 6 OR MORE 03/05/2022 83644-LMOBGXP NAIL, 6 OR MORE 05/28/2022 55928-TRKPVRM NAIL, 6 OR MORE 08/27/2022 21168-Jjjapojm Plate 05/28/2022 69464- Debride <25 sq cm 01/23/2022 59891 I&D ABSCESS- SIMPLE,SINGLE 022 12791-UKNG SKIN LESIONS, 2 TO 4 08/28/19 23 84367-TKBS SKIN LESIONS, 2 TO 4 05/28/20 22 67806-ELIN SKIN LESIONS, 2 TO 4 07/22/19 24 55278-BTEF SKIN LESIONS, 2 TO 4 11/30/19 21538-OJBZ SKIN LESIONS, 2 TO 4 02/26/20 Insurance Providers Payer Name Payer Address Payer Phone Subscriber Number Group Number Insured Name Patient Relationship to Insured Coverage Start Date Coverage End Date Medicare [employer] [address] [place] [address] [id number] Myles Tipton Self - patient is the [...] spine surgery 09/04/2015 Hospitalization History Reason Date(Month/[place] [facility] [place]- coded 2x CPR done 2 days 06/13/2022 [facility]Drain left knee 3 x between 5 weeks 2021 [facility] [place] painful L migel Ingrown? g iven antiboitics 01/08/22 Cardiac Cath and Stent Coronary artery disease invo lving [place] coronary artery of [place] heart with unstable angina pectoris
--- OUTSIDE RECORDS SUMMARY | 2024-07-30 12:15 | XMS_ITS | Encounter Summary ---
Author Organization [employer] Address [address] [place] [address] 7 [place] [address] Care Team Providers Care Agriculture Extension Specialist Name Role Phone Memo Alex MD Primary Care Provider [phone] Reason for Referral * Imaging (Routine) - Authorized Specialty Diagnoses / Procedures Referred By Contac t Referred To Contact Radiology Diagnoses Abdominal pain, LLQ Procedures CT Abdomen Pelvis w/ Contrast Memo Alex MD [address] [place] [address] Phone: tel: fax: [address] Phone: tel: fax: Referral ID Status Reason Start Date Expiration Date V isits Requested Visits Authorized [id number] Authorized 07/07/2024 07/07/2025 1 1 Reason for Visit * Reason Comments Follow-up Encounter Details Date Type Department Care Team (Late st Contact Info) Description 07/07/2024 3:30 PM EST Office Visit [facility] [address] [place] [address] [phone] Memo Alex MD [address] [place], [place] [phone] Abdominal pain, LLQ (Primary Dx) Social History [...] is your housing situation today? I have leslynorth tirado 07/17/[address] you [...] Oxygen Concentration - - Weight 91.6 kg ( lb) 07/07/2024 3:29 PM EST Height 180.3 cm (5' 11 ) 07/07/2024 3:29 PM EST Body Mass Index 28.17 07/07/2024 3:29 PM EST documented in this encounter Progress Notes * Memo Alex MD - 07/07/2024 3:30 PM EST Subjective Patient [...] Info) Description 08/06/2024 10:00 AM EST Telemedicine [facility] [address] [place] [id number] 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 RN Scheduled Orders Name Type Priority Associated Diagnoses Orde r Schedule CT Abdomen Pelvis w/ Contrast Imaging Routine Abdominal pain, LLQ Expected: 07/07/2024, Expires: 07/07/2025 documented as of this encounter Procedures Procedure Name Priority Date/Time Associated Diagnosis Comments CBC WITH AUTO DIFFERENTIAL Routine 07/07/2024 4:08 PM EST Abdominal pain, LLQ COMPREHENSIVE METABOLIC PANEL Routine 07/07/2024 4:08 PM EST Abdominal pain, LLQ POCT HEMOGLOBIN Routine 07/07/2024 3:56 PM EST Abdominal pain, LLQ documented in this encounter Results * (ABNORMAL) Comprehensive Metabolic Panel (07/07/2024 4:08 PM EST) Sodium 138 135 - 145 mmol/L [facility] Potassium 4.2 3.3 - 5.1 mmol/L [facility] Chloride 105 96 - 108 mmol/L [facility] Carbon Dioxide 25 22 - 29 mmol/L [facility] Anion Gap 12 12 - 20 [facility] Urea Nitrogen (BUN) 20(H) 9 - 16 mg/dL [facility] Creatinine, Serum 0.67 0.5 - 1.4 mg/dL [facility] Estimated Glomerular Filt Rate >60 [facility] Comment:Chronic Kidney Disea se: Estimated GFR < 60 mL/min/1.32e9Pxcjwz Kidney Disease: Estimated GFR < 15 mL/min/1.73m2 Glucose 88 60 - 115 mg/dL [facility] Calcium 8.7 8.4 - 10.2 mg/dL [facility] Bilirubin, Total 0.2 0.0 - 1.0 mg/dL [facility] Aspartate Amino Transferase 19 5 - 37 U/L [facility] Alanine Aminotransferase 13 0 - 40 U/L [facility] Total Protein 7.5 6.5 - 8.0 g/dL [facility] Albumin Level 4.2 3.5 - 5.0 g/dL [facility] Alkaline Phosphatase 79 39 - 117 U/L [facility] Blood Venous blood specimen / Unknown 07/07/2024 4:08 PM EST 07/07/2024 5:34 PM EST us Memo Name MD LAB BLOOD ORDERABLES Final Resul t [facility] [address] [place] [phone] * (ABNORMAL) CBC auto differential (07/07/2024 4:08 PM EST) White Blood Count 10.5 4.8 - 10.8 X10*3/uL [facility] Red Blood Count 4.72 4.60 - 5.80 X10*6/uL [facility] Hemoglobin 14.3 14.0 - 18.0 g/dl [facility] Hematocrit 42.4 42.0 - 52.0 % [facility] Mean Corpuscular Volume 89.8 80.0 - 98.0 fL [facility] Mean Corpuscular Hemoglobin 30.3 27.0 - 33.0 pg [facility] Mean Corpuscular HGB Conc 33.7 31.0 - 36.0 g/dl [facility] Red Cell Distribution Width 12.8 11.0 - 16.0 % [facility] Platelet Count 404(H) 160 - 400 X10*3/uL [facility] Mean Platelet Volume 9.0(L) 9.4 - 12.4 fL [facility] Neutrophils Percent Auto 56.1 45 - 73 % [facility] Imm Gran Pct Auto 0.6(H) 0.0 - 0.4 % [facility] Lymphocytes Percent Auto 25.4 20 - 40 % [facility] Monocytes Percent Auto 9.3 2 - 11 % [facility] Eosinophils Percent Auto 7.6(H) 0 - 4 % [facility] Basophils Percent Auto 1.0 0 - 2 % [facility] NRBC Pct Auto 0.0 0.0 - 0.2 /100WBC [facility] Neutrophils Absolute Auto 5.9 2.0 - 8.3 x10*3/uL [facility] Imm Gran Abs Auto 0.06(H) 0.00 - 0.03 X10*3/uL [facility] Lymphocytes Absolute Auto 2.7 1.2 - 4.9 X10*3/uL [facility] Monocytes Absolute Auto 1.0 0.1 - 1.2 X10*3/uL [facility] Eosinophils Absolute Auto 0.8(H) 0.0 - 0.4 X10*3/uL [facility] Basophils Absolute Auto 0.1 0.0 - 0.2 X10*3/uL [facility] NRBC Abs Auto 0.000 0.0 - 0.012 X10*3/uL [facility] Blood Venous blood specimen / Unknown 07/07/2024 4:08 PM EST 07/07/2024 5:34 PM EST us Memo Aelx MD LAB BLOOD ORDERABLES Final Resul t [facility] [address] [place] [phone] [phone] * POCT Hemoglobin (07/07/2024 3:56 PM [...] documented as of this encounter Care Teams Agriculture Extension Specialist Relationship Specialty Start Date End Date Name, MD Memo [address] [place] [address] PCP - General Family Medicine 08/30/15 documented as of this encounter
--- OUTSIDE RECORDS SUMMARY | 2024-07-30 12:16 | XMS_ITS | Encounter Summary ---
Author Organization [employer] Address [address] [place] [address] 7 [place] [address] Care Team Providers Care Dental Laboratory Assistant Name Role Phone Name, Memo ARREDONDO Primary Care Provider Reason for Visit * Reason Onset Date Comments Error 03/25/2024 Encounter Details Date Type Department Care Team ([facility] Contact Info) Description 03/25/2024 Telephone [facility] [address] [place], [place] [phone] Name, MD Memo [address] [place] [address] Error Social History Tobacco Use Types Packs/Day [...] Info) Description 08/06/2024 10:00 AM EST Telemedicine [facility] [address] [place] [address] 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 RN documented as of this encounter Visit Diagnoses Not on filedocumented in this encounter Additional Health Concerns Assessment Noted Time PHQ-9 Depression Total Score: 0 07/17/19 24 10:49 AM EST documented as of this encounter Care Teams Dental Laboratory Assistant Relationship Specialty Start Date End Date Name, MD Memo [address] [place] [address] PCP - General Family Medicine 08/30/15 documented as of this encounter
--- OUTSIDE RECORDS SUMMARY | 2024-07-30 12:16 | XMS_ITS | Encounter Summary ---
Author Organization [employer] Address [address] [place] [address] 7 [place] [address] Care Team Providers Care Link Fabric Machine Operator Name Role Phone Name, Memo ARREDONDO Primary Care Provider [phone] Reason for Visit * Reason Onset Date Comments Med Refill 07/09/2024 Encounter Details Date Type Department Care Team ([facility] st Contact Info) Description 07/09/2024 Refill [facility] [address] [place], [place] [phone] Name, MD Memo [address] [place] [address] Chronic pain syndrome Social History Tobacco Use [...] encounter Miscellaneous Notes * Telephone Encounter - oKffi Duenas RN - 07/13/2024 11:25 AM EST TC placed to pharmacy who reports med was filled and picked up today. Patient is all set. * Telephone Encounter - Rodrigo Ascencio - 07/12/2024 1:53 PM EST Tc from pt requested a callback in regards Oxycodone * Telephone Encounter - Rodrigo Ascencio - 07/09/2024 12:47 PM EST TC from pt requesting medication refill. Medications needing refill : oxyCODONE (Roxicodone) 10 MG immediate release tablet To be sent to: [facility] pharmacy documented in this encounter Plan of Treatment Upcoming Encounters Date Type Department Care Team (Late st Contact Info) Description 08/06/2024 10:00 AM EST Telemedicine [facility] [address] [place] [address] Trista, Shahla, RN documented as of this encounter Visit Diagnoses Diagnosis Chronic pain syndrome documented in this encounter Additional Health Concerns Assessment Noted Time PHQ-9 Depression Total Score: 0 07/17/19 24 10:49 AM EST documented as of this encounter Care Teams Link Fabric Machine Operator Relationship Specialty Start Date End Date Name, MD Memo [address] [place] [address] PCP - General Family Medicine 08/30/15 documented as of this encounter
--- OUTSIDE RECORDS SUMMARY | 2024-07-30 12:16 | XMS_ITS | Encounter Summary ---
Author Organization [employer] Address [address] [place] [address] 7 [place] [address] Care Team Providers Care Automatic Spreader Operator Name Role Phone Name, Memo ARREDONDO Primary Care Provider [phone] Encounter Details Date Type Department Care Team (Late Contact Info) Description [facility] [address] [place], [place] [phone] Name, MD Memo [address] [place], [place] [phone] Social History Tobacco Use Types Packs/Day Years [...] Telemedicine [facility] [address] [place], [place] [phone] 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, RN documented as of this encounter Visit Diagnoses Not on filedocumented in this encounter Additional Health Concerns Assessment Noted Time PHQ-9 Depression Total Score: 9 06/27/19 23 10:17 AM EST documented as of this encounter Care Teams Automatic Spreader Operator Relationship Specialty Start Date End Date Name, MD Memo [address] [place] [address] PCP - General Family Medicine 08/30/15 documented as of this encounter
--- OUTSIDE RECORDS SUMMARY | 2024-07-30 12:16 | XMS_ITS | Encounter Summary ---
Author Organization [employer] Address [address] [place] [address] [address] [place] [address] Care Team Providers Care Ballpoint Pen Assembly Machine Operator Name Role Phone Name, Memo ARREDONDO Primary Care Provider [phone] Reason for Visit * Reason Comments Med Refill Encounter Details Date Type Department Care Team ([facility] st Contact Info) Description 07/11/2024 Refill [facility] [address] [place] [address] Camille Alexandra, PRIYANKA [address] [place] [address] Social History Tobacco Use Types Packs/Day Years [...] Info) Description 08/06/2024 10:00 AM EST Telemedicine [facility] [address] [place] [address] 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, RN documented as of this encounter Visit Diagnoses Not on filedocumented in this encounter Additional Health Concerns Assessment Noted Time PHQ-9 Depression Total Score: 0 07/17/19 24 10:49 AM EST documented as of this encounter Care Teams Ballpoint Pen Assembly Machine Operator Relationship Specialty Start Date End Date Name, MD Memo [address] [place] [address] PCP - General Family Medicine 08/30/15 documented as of this encounter
--- OUTSIDE RECORDS SUMMARY | 2024-07-30 12:16 | XMS_ITS ---
Author Organization [facility] Address [address] [place] [phone] Care Team Providers Care Bladder Cleaner Name Role Phone Name Memo ARREDONDO Primary Care Provider Rolly Manzanares Unavailable [phone] Encounters Encounter Location Date Provider Diagnosis [address] [address] 09/30/2023 Rolly Herman Plan Of Treatment No Information Progress Notes * Myles JARADOB:1955 (69 yo M)Acc No.[id number]:09/30/2023 Progress Note Patient:Myles WHITING Provider:?Rolly Herman DPM :1955???Age:68 Y???Sex:Male Phillip e:09/30/2023 Address:[address] [place], [place] [phone] Pcp:Memo Alex MD Subjective: * Chief Complaints: [...] Herman DPM Date:?2023 Generated for Printi liu/Fajacqui/eTransmitting on:?07/30/2024 12:15 PM EST
--- OUTSIDE RECORDS SUMMARY | 2024-07-30 12:16 | XMS_ITS ---
Author Organization [facility] Address [address] [place] [address] Care Team Providers Care Lighting Fixture Installer Name Role Phone Name Memo ARREDONDO Primary Care Provider Rolly Manzanares [phone] REASON FOR VISIT cx same day 09/30/23 Encounters Encounter Location Date Provider Diagnosis [facility] [address] [place] [address] 09/30/2023 Rolly Herman Plan Of Treatment No Information Progress Notes * Myles JARADOB:1955 (68 yo M)Acc No.[id number]:09/30/2023 Patient:?TobiMyles davis :1955???Age:68 Y???Sex:Male Address:[address] [place] [address], [address] * true * Date:? Generated for Printi liu/Jorge Alberto/eTransmitting on:?07/30/2024 12:15 PM EST
--- OUTSIDE RECORDS SUMMARY | 2024-07-30 12:16 | XMS_ITS | Clinical Summary ---
Author Organization [employer] Address [address] [place] [address] 7 [place] [address] Care Team Providers Care Volunteer Patient Representative Name Role Phone Name, Memo ARREDONDO Primary Care Provider [phone] Allergies Active Allergy Reactions Criticality Noted Date [...] 0.4 MG SL tabletIndicatio ns:Atherosclero sis of [place] coronary artery of [place] heart with stable angina pectoris (CMS/HCC) PLACE 1 TABLET UNDER THE TONGUE EVERY 5 MINUTES IF NEEDED FOR CHEST PAIN 90 tablet 2 024 Active divalproex (Depakote ER) 250 MG 24 hr tablet TAKE 1 TABLET BY MOUTH AT BEDTIME 30 tablet 5 024 Active cyclobenzaprine (Flexeril) 10 MG tabletIndicatio ns:Choking, subsequent encounter TAKE 1 TABLET BY MOUTH TWICE A DAY 60 tablet 024 Active Aspirin Low Dose 81 MG EC tabletIndicatio ns:Coronary artery disease involving northern [place] heart without angina pectoris, unspecified vessel or lesion type TAKE 1 TABLET BY MOUTH EVERY MORNING 90 tablet 1 024 Active Multiple Vitamin (One-Daily Multi-Vitamin) tablet TAKE 1 TABLET BY MOUTH EVERY MORNING 90 tablet 1 024 Active oxyCODONE (Roxicodone) 10 MG immediate release tabletIndicatio ns:Chronic pain syndrome Take 1 tablet (10 mg) by mouth See administration instructions. One tablet every 5 to 6 hours as needed for pain. 140 tablet 025 Active ezetimibe (Zetia) 10 MG tablet TAKE 1 TABLET BY MOUTH EVERY EVENING 90 tablet 025 Active rosuvastatin (Crestor) 40 MG tablet TAKE 1 TABLET BY MOUTH EVERY EVENING 90 tablet 025 Active rosuvastatin (Crestor) 40 MG tablet TAKE 1 TABLET BY MOUTH EVERY EVENING 90 tablet 024 2024 Discontinued ezetimibe (Zetia) 10 MG tablet TAKE 1 TABLET BY MOUTH EVERY EVENING 90 tablet 024 2024 Discontinued oxyCODONE (Roxicodone) 10 MG immediate release tabletIndicatio ns:Chronic pain syndrome Take 1 tablet (10 mg) by mouth See administration instructions for 28 days. One tablet every 5 to 6 hours as needed for pain. Do not start before June 17, 2024. 140 tablet 025 2024 Discontinued(R eorder (will not trigger notification [...] -advised foot exercises -tylenol prn -already saw automotive instructor few days ago-states had foot XR -per [...] right wrist with recent prednisone tx, to pick remover 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 per [facility] Primary localized osteoarthritis [...] he will try to readdress Atherosclerosis of northern [place] co ronary artery of [place] heart with stable angina pectoris 02/24/2018 Overview [...] artery disease of n ative artery of northern che[place] heart with stable angina pectoris 09/04/2015 Radicular [...] 01/24/2015 Coronary artery stenosis 07/13/2014 Overview (05/14/2022): [place] Coronary Artery Stenosis Benign essential hypertension 07/13/2014 [...] Encounters Date Type Department Care Team Description 07/11/2024 Refill [facility] SHIELA Barahona [phone] Camille Alexandra NP 07/09/2024 Refill [facility] [place] [address] Memo Alex MD Chronic pain syndrome 07/08/2024 Orders Only GENERIC EXTERNAL DATA DEPARTMENT Provider, Generic External Data 07/08/2024 Telephone [facility] [place] [address] Elisa Mercedes RN 07/07/2024 3:30 PM EST Office Visit [facility] [place] [address] Memo Alex MD Abdominal pain, LLQ (Primary Dx) 06/16/2024 Patient Outreach [facility] [place] [address] Memo Alex MD Medicare Annual Wellness Visit Initial (AWV scheduled) 06/14/2024 Refill [facility] [place] [address] Memo Alex MD Chronic pain syndrome 05/24/2024 Telephone [facility] [place] [address] Memo Alex MD 05/21/2024 11:00 AM EST Telemedicine [facility] [place] [address] 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 RN Chronic pain syndrome 05/21/2024 Travel 05/21/2024 Telephone [facility] [place] [address] 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 RN Recommend Tele UTILITY OPERATOR YARN Tier 2 05/17/2024 Refill [facility] [place] [address] Camille Alexandra NP 05/17/2024 Refill [facility] [address] [place] [phone] Name, MD Memo Chronic pain syndrome 05/17/2024 Refill [facility] [address] [facility] [place] [address] Name, MD Memo Coronary artery disease involving northern [place] heart without angina pectoris, unspecified vessel or lesion type from Last 3 Months Immunizations Name Administration [...] Telemedicine [facility] [address] [place], [place] [phone] 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, RN Health Maintenance Due Date [...] W CONTRAST Routine 07/08/2024 10:59 PM EST LIPASE Routine 07/08/2024 7:20 PM EST COMPREHENSIVE METABOLIC PANEL Routine 07/08/2024 7:20 PM EST LACTIC ACID Routine 07/08/2024 7:20 PM EST URINALYSIS, COMPLETE, WITH REFLEX TO CULTURE Routine 07/08/2024 7:20 PM EST CBC WITH AUTO DIFFERENTIAL Routine 07/08/2024 7:20 PM EST BLOOD CULTURE (FIRST) Routine 07/08/2024 7:20 PM EST BLOOD CULTURE (SECOND) Routine 6:53 PM EST COMPREHENSIVE METABOLIC PANEL Routine 07/07/2024 4:08 PM EST Abdominal pain, LLQ CBC WITH AUTO DIFFERENTIAL Routine 07/07/2024 4:08 PM EST Abdominal pain, LLQ POCT HEMOGLOBIN Routine 07/07/2024 3:56 PM EST Abdominal pain, LLQ LIPID PANEL, STANDARD Routine 01/02/2024 6:36 AM EDT HEPATITIS PANEL, GENERAL Routine 09/01/2023 11:55 AM EDT LLQ abdominal pain Encounter for screening for other viral diseases HM COLONOSCOPY Routine 03/04/2023 from Last 3 Months or Most Recently Relevant to Health Maintenance Results * CT Abdomen Pelvis w/ Contrast (07/08/2024 10:59 PM EST) Anatomical Region Laterality Modality Body, Pelvis, Abdomen Computed T omography 07/08/2024 10:5 9 PM EST Narrative 07/08/2024 11:01 PM EST ? [facility] ?[address] ?[place] [address] ? CT Scan Report ? Signed ? Patient: Myles Tipton ?MR#: [id number] ?? 5 ? : 1955 ?Acct:[id number] ? Age/Sex: 69 / M ?ADM Date: 07/08/24 ? Loc: HO.ED ? Attending Dr: ? Ordering Physician: Arsh Savage ?? Date of Service: 07/08/24 ?? Procedure(s): CT abdomen pelvis w IV con ?? Accession Number(s): [id number] ? cc: Name,Memo ARREDONDO; Arsh Savage ? Report Number: ?? [id number]: Total DLP = ??753.00 mGy-cm ? CLINICAL [...] ? DD/ 58 ? TD/TT: 07/08/242258 ? Sales Utility Representative: ? Procedure Note Gage, Image - 07/08/[address] [place] [address] [address] Scan Report Signed Patient: Myles TiptonMR#: [id number] 5 : 1955cct:[id number] Age/Sex: 69 / MADM Date: 07/08/24 Loc: HO.ED Attending Dr: Ordering Physician: Arsh Savage Date of Service: 07/08/24 Procedure(s): CT abdomen pelvis w IV con Accession Number(s): [id number] cc: Memo Alex MD; Arsh Savage Report Number: [id number]: Total DLP = 753.00 mGy-cm CLINICAL HISTORY: LLQ pain CT abdomen and pelvis with contrast Comparison: CT - CT ABDOMEN PELVIS W IV CON - 1/30/25 21:57 EST Findings: No consolidation or effusion. [...] MD Signed By: <Electronically signed by Lani Muse MD in OV> 07/08/242300 DD/ 58 TD/TT: 07/08/242258 Sales Utility Representative: [facility] External Provider IMG CT PROCEDURES Final Result * Blood Culture (First) (07/08/2024 7:20 PM EST) Blood Venous blood specimen / Unknown 07/08/2024 7:20 PM EST 07/08/2024 7:24 PM EST Comment:Blood Narrative [facility] - 07/13/2024 9:24 PM EST Blood Culture (First) No growth after 5 days. Specimen Source: Blood Generic External Data Provider LAB MICROBIOLOGY - GENERAL ORDERABLES Final Result Performing Organization Address City/[facility] de Phone Number [facility] [address] [place] [phone] * Urinalysis, Complete, with Reflex to Culture (07/08/2024 7:20 PM EST) Color Urine Yellow [facility] Appearance Urine Clear [facility] PH 5.5 5.0 - 9.0 [facility] Glucose Urine UA Negative Negative mg/dL [facility] Urine Blood Negative Negative [facility] Specific Humphreys - Urine 1.015 1.005 - 1.025 [facility] Urine Protein Negative Neg-Trace mg/dL [facility] Urine Ketones Negative Negative mg/dL [facility] Nitrite Urine Negative Negative [facility] Leukocyte Esterase Urine Negative Negative [facility] RBC Urine 0-2 0 - 2 /HPF [facility] Urine WBC 0-5 0 - 5 /HPF [facility] Urine Squamous Epithelial Cell 0-2 0 - 2 /HPF [facility] Urine Bacteria None Seen None Seen [facility] Hyaline Casts, Urine 0-2 0 - 2 /LPF [facility] 07/08/2024 7:20 PM EST 07/08/2024 7:24 PM EST Narrative [facility] - 07/08/2024 7:31 PM EST Urine, Clean Catch us Generic External Data Provider LAB URINE ORDERAB LES Final Result Performing Organization Address [facility] Co de Phone Number [facility] [address] [place] [address] [phone] * (ABNORMAL) CBC auto differential (07/08/2024 7:20 PM EST) Only the most recent of2 resultswithin the time period is included. White Blood Count 9.5 4.8 - 10.8 X10*3/uL [facility] Red Blood Count 4.40(L) 4.60 - 5.80 X10*6/uL [facility] Hemoglobin 13.3(L) 14.0 - 18.0 g/dl [facility] Hematocrit 39.0(L) 42.0 - 52.0 % [facility] Mean Corpuscular Volume 88.6 80.0 - 98.0 fL [facility] Mean Corpuscular Hemoglobin 30.2 27.0 - 33.0 pg [facility] Mean Corpuscular HGB Conc 34.1 31.0 - 36.0 g/dl [facility] Red Cell Distribution Width 12.8 11.0 - 16.0 % [facility] Platelet Count 316 160 - 400 X10*3/uL [facility] Mean Platelet Volume 8.4(L) 9.4 - 12.4 fL [facility] Neutrophils Percent Auto 52.4 45 - 73 % [facility] Imm Gran Pct Auto 0.4 0.0 - 0.4 % [facility] Lymphocytes Percent Auto 28.7 20 - 40 % [facility] Monocytes Percent Auto 8.5 2 - 11 % [facility] Eosinophils Percent Auto 8.9(H) 0 - 4 % [facility] Basophils Percent Auto 1.1 0 - 2 % [facility] NRBC Pct Auto 0.0 0.0 - 0.2 /100WBC [facility] Neutrophils Absolute Auto 5.0 2.0 - 8.3 x10*3/uL [facility] Imm Gran Abs Auto 0.04(H) 0.00 - 0.03 X10*3/uL [facility] Lymphocytes Absolute Auto 2.7 1.2 - 4.9 X10*3/uL [facility] Monocytes Absolute Auto 0.8 0.1 - 1.2 X10*3/uL [facility] Eosinophils Absolute Auto 0.8(H) 0.0 - 0.4 X10*3/uL [facility] Basophils Absolute Auto 0.1 0.0 - 0.2 X10*3/uL [facility] NRBC Abs Auto 0.000 0.0 - 0.012 X10*3/uL [facility] 07/08/2024 7:20 PM EST 07/08/2024 7:24 PM EST us Generic External Data Provider LAB BLOOD ORDERAB LES Final Result Performing Organization Address [facility] Co de Phone Number [facility] [address] [place] [phone] * Lipase (07/08/2024 7:20 PM EST) Lipase 19 8 - 78 U/L [facility] 07/08/2024 7:20 PM EST 07/08/2024 7:24 PM EST Generic External Data Provider LAB BLOOD ORDERAB LES Final Result Performing Organization Address [facility] de Phone Number [facility] [address] [place] [phone] * Lactic Acid (07/08/2024 7:20 PM EST) Lactic Acid 1.1 0.5 - 2.0 mmol/L [facility] 07/08/2024 7:20 PM EST 07/08/2024 7:24 PM EST Generic External Data Provider LAB BLOOD ORDERAB LES Final Result Performing Organization Address [facility] de Phone Number [facility] [address] [place] [phone] * (ABNORMAL) Comprehensive Metabolic Panel (07/08/2024 7:20 PM EST) Only the most recent of2 resultswithin the time period is included. Sodium 138 135 - 145 mmol/L [facility] Potassium 4.2 3.3 - 5.1 mmol/L [facility] Chloride 104 96 - 108 mmol/L [facility] Carbon Dioxide 25 22 - 29 mmol/L [facility] Anion Gap 13 12 - 20 [facility] Urea Nitrogen (BUN) 17(H) 9 - 16 mg/dL [facility] Creatinine, Serum 0.77 0.5 - 1.4 mg/dL [facility] Creatinine Clr Calc Pharmacy 102.4 [facility] Comment:eGFR (calculated fro m the MDRD study equation) and eCrCl(calculated from the Cockcroft-Gault equation) are based ondifferent parameters and may not yield comparable results.If eCrCl result is absurd, please check patient'sheight/weight. Estimated Glomerular Filt Rate >60 [facility] Comment:Chronic Kidney Disea se: Estimated GFR < 60 mL/min/[id number] Kidney Disease: Estimated GFR < 15 mL/min/1.73m2 Glucose 118(H) 60 - 115 mg/dL [facility] Calcium 8.7 8.4 - 10.2 mg/dL [facility] Bilirubin, Total 0.2 0.0 - 1.0 mg/dL [facility] Aspartate Amino Transferase 22 5 - 37 U/L [facility] Alanine Aminotransferase 16 0 - 40 U/L [facility] Total Protein 7.0 6.5 - 8.0 g/dL [facility] Albumin Level 3.9 3.5 - 5.0 g/dL [facility] Alkaline Phosphatase 82 39 - 117 U/L [facility] 07/08/2024 7:20 PM EST 07/08/2024 7:24 PM EST us Generic External Data Provider LAB BLOOD ORDERAB LES Final Result [facility] [address] [place] [phone] * Blood Culture (Second) (07/08/2024 6:53 PM EST) Blood Venous blood specimen / Unknown 07/08/2024 6:53 PM EST 07/09/2024 7:56 AM EST Comment:Blood Narrative [facility] - 07/09/2024 7:57 AM EST Blood Culture (Second) Test not performed NO SPECIMEN RECEIVED. PATIENT DEPARTED ED Specimen Source: Blood us Generic External Data Provider LAB MICROBIOLOGY - GENERAL ORDERABLES Final Result [facility] [address] [place] [address] [phone] * POCT Hemoglobin (07/07/2024 3:56 PM EST) Hemoglobin 15.0 13.0 - 17.0 QC Media Lot # [id number] Lot# Expiration Date Blood 07/07/2024 3:56 PM EST Memo Alex MD POINT OF CARE TEST ENTER/EDIT OR DERABLES Final Result * Lipid Panel, Standard (01/02/2024 6:36 AM EDT) Triglycerides 112 <150 mg/dL [facility] Comment:Desirable Triglyceri de: less than 150 mg/dLBorderline High Triglyceride 150-199 mg/dLHigh Triglyceride: 200-499 mg/dLVery High Triglyceride: greater than or equal to 5OO mg/dL Cholesterol 154 <200 mg/dL [facility] Comment:Desirable Cholestero l: less than 200 mg/dLBorderline High Cholesterol: 200-239 mg/dLHigh Cholesterol: greater than 239 mg/dL LDL Cholesterol Calculated 83 <100 mg/dL [facility] Comment:Desirable LDL: less than 100 mg/dLNear Optimal/Above Optimal LDL: 110- 129 mg/dLBorderline High LDL: 130-159 mg/dLHigh LDL: 160-189 mg/dLVery High LDL: greater than or equal to 190 mg/dL HDL Cholesterol 49 >40 mg/dL [facility] Comment:Desirable HDL: great er than 40 mg/dL Note: This HDL assay may give artificially low results in patients with liver disease. 01/02/2024 6:36 AM EDT 01/02/2024 6:36 AM EDT Generic External Data Provider LAB BLOOD ORDERAB LES Final Result Performing Organization Address City/[facility]/ZIP Co de Phone Number [facility] [address] [place] [phone] * Hepatitis Panel, General (09/01/2023 11:55 AM EDT) Hepatitis A IgM Nonreactive Nonreactive [facility] Comment:IgM antibodies to LANDEROS V not detected; does not exclude earlyacute or recovered HAV infection. ~Hepatitis B Surface Antibody REACTIVE Nonreactive [facility] Comment:REACTIVE: > 11.99 mI U/mL Hepatitis B Core Antibody Nonreactive Nonreactive [facility] Hepatitis C Antibody Nonreactive Nonreactive [facility] Comment:Antibodies to HCV no t detected; does not exclude early acuteHCV infection. Hepatitis B Surface Ag Negative Negative [facility] Blood 09/01/2023 11:5 5 AM EDT 09/01/2023 1:48 PM EDT Sonia Ladd ASSISTANT HOUSEKEEPING MANAGER LAB BLOOD ORDERABLES Final Res ult Performing Organization Address [facility]/ZIP Co de Phone Number [facility] [address] [place] [address] [phone] * Colonoscopy (03/04/2023) Colonoscopy Normal Normal Comment:Negative result, Rep eat in 3-5 years Memo Alex MD HEALTH MAINTENANCE Final Result from Last 3 Months or Most Recently Relevant to Health Maintenance [facility] Care Teams Volunteer Patient Representative Relationship Specialty Start Date End Date Name, MD Memo [address] [place] [phone] PCP - General Family Medicine 08/30/15
--- OUTSIDE RECORDS SUMMARY | 2024-07-30 12:16 | XMS_ITS | Encounter Summary ---
Author Organization [employer] Address [address] [place] [address] [address] [place] [address] Care Team Providers Care Estimator Printing Name Role Phone Name, Memo ARREDONDO Primary Care Provider [phone] Reason for Visit * Reason Comments Med Refill Encounter Details Date Type Department Care Team ([facility] st Contact Info) Description 10/25/2022 Refill [facility] [address] [place], [place] [phone] Name, MD Memo [address] [place] [address] Chronic pain syndrome Social History Tobacco Use [...] Info) Description 08/06/2024 10:00 AM EST Telemedicine [facility] [address] [place] [address] 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 RN documented as of this encounter Visit Diagnoses Diagnosis Chronic pain syndrome documented in this encounter Additional Health Concerns Assessment Noted Time PHQ-9 Depression Total Score: 9 06/27/19 10:17 AM EST documented as of this encounter Care Teams Estimator Printing Relationship Specialty Start Date End Date Name, MD Memo [address] [place] [phone] PCP - General Family Medicine 08/30/15 documented as of this encounter
--- OUTSIDE RECORDS SUMMARY | 2024-07-30 12:16 | XMS_ITS | Encounter Summary ---
Author Organization [employer] Address [address] [place] [address] [address] [place] [address] Care Team Providers Care Daily Release And Dupe Printer Name Role Phone Name, Memo ARREDONDO Primary Care Provider [phone] Reason for Visit * Reason Comments Med Refill Encounter Details Date Type Department Care Team ([facility] st Contact Info) Description 03/23/2024 Refill [facility] [address] [place], [place] [phone] Name, MD Memo [address] [place] [address] Social History Tobacco Use Types Packs/Day Years [...] Info) Description 08/06/2024 10:00 AM EST Telemedicine [facility] [address] [place] [address] 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 RN documented as of this encounter Visit Diagnoses Not on filedocumented in this encounter Additional Health Concerns Assessment Noted Time PHQ-9 Depression Total Score: 0 07/17/19 24 10:49 AM EST documented as of this encounter Care Teams Daily Release And Dupe Printer Relationship Specialty Start Date End Date Name, MD Memo [address] [place] [address] PCP - General Family Medicine 08/30/15 documented as of this encounter
[2024-08-31 09:46] VITALS: BMI 28.4
--- NOTE | 2024-09-01 08:45 | HO.ANESPROP2 ---
Documented by User: Fern Herndon NP 09/01/24 08:56 HPI - Anesthesia Eval Consult details Narrative: 69yo M for Colonoscopy [place] [facility] [place]: sick sinus syndrome, pacemaker in place, CAD, multiple cardiac catheterizations with PCI, stents, last 07/10/2021, PAF, DVT and on Eliquis Stable at 04/2024 office visit following cardiac cath 10/2023 without changes from previous [facility] Active Problems Active Problems: All Active Problems Varicose veins of left lower extremity with inflammation (Acute) Orthopnea (Acute) Shortness of breath (Acute) S/P cardiac cath (Acute) Exertional angina (Acute) Diarrhea (Acute) Abnormal LFTs (Acute) Upper abdominal pain (Acute) Elevated liver enzymes (Acute) Choledocholithiasis (Acute) PAF (paroxysmal atrial fibrillation) (Acute) Altered mental status (Acute) Elevated lactic acid level (Acute) Choking episode (Acute) Hypoxia (Acute) Aspiration pneumonitis (Acute) Pacemaker lead malfunction (Acute) Atrial flutter (Acute) Internal derangement of right shoulder (Acute) Osteoarthritis of right shoulder (Acute) PAD (peripheral artery disease) (Acute) Achilles tendonitis (Acute) Cerebral calcification (Acute) Sick sinus syndrome (Acute) Nicotine dependence, cigarettes, uncomplicated (Acute) CAD (coronary artery disease) (Acute) Pacemaker (Acute ~05/2013) DVT (deep venous thrombosis) (Chronic) On anticoagulant therapy (Acute) GERD (gastroesophageal reflux disease) (Acute) Past Medical History Medical History (Updated 08/31/24 @ 09:50 by Kathy Brand RN) Nicotine dependence, cigarettes, uncomplicated Elevated cholesterol History of chemotherapy Obstructive sleep apnea (~2018) On anticoagulant therapy DVT (deep venous thrombosis) Essential hypertension Tubular adenoma of colon COVID-19 vaccine administered Seizures (~04/2020) GERD (gastroesophageal reflux disease) Esophagitis Atherosclerotic cardiovascular disease Psychotic disorder Syncope Headache Myocardial infarction Pacemaker (~05/2013) Tremor Brain bleed CAD (coronary artery disease) Family History Family History Father Heavy cigarette smoker Throat cancer Mother Heart disease Family history of problems with anesthesia: No Surgical History Surgical History Hx of shoulder surgery History of total left knee replacement History of ERCP History of spinal surgery History of colonoscopy (~09/2020) History of right knee surgery (~12/2013) History of total right hip replacement (~06/2012) History of cholecystectomy History of cardiac catheterization History of permanent cardiac pacemaker placement (~05/2013) History of esophagogastroduodenoscopy (EGD) (~09/2020) History of appendectomy Stented coronary artery History of Problems with Anesthesia: No Social History Social History Household Members: None Household Members Other:: shares house with a friend Housing: House Are you a primary animal caretaker supervisor to a significant other at home: No Do you presently have visiting nurse or other home services: No Alcohol intake: never Comment: resting eyes closed Patient Tobacco Use Status: Current someday Tobacco user Tobacco use type: Cigarette Years Smoked: 8 +/- e-Cigarette/Vaping Use: Never Used Second Hand Smoke Exposure: No Have you been hit, kicked, punched, or otherwise hurt by someone within the past year? If so, by whom?: No Are you DNR?: No Advance Directives: No Advance Directives Information Provided: Yes Advance Directives Date on File: 12/16/20 Recently lost weight without trying: No Nutrition Risks: No Nutritional Risk service: No Current occupational status: employed and retired Meds Allergies Allergy/AdvReac Type Severity Reaction Status Date / Time bee pollen [BEE STINGS] Allergy Severe ANAPHYLAXIS Verified 07/15/24 09:37 indomethacin [Indocin] Allergy Severe anaphylaxis Verified 07/15/24 09:37 tramadol [Ultram] Allergy Severe anaphylaxis Verified 07/15/24 09:37 fentanyl AdvReac Intermediate Anxiety Verified 08/31/24 09:38 Home Medications ?Medication ?Instructions ?Recorded ?Confirmed ?Last Taken ?Type rosuvastatin 40 mg tablet (Crestor) 40 mg PO BEDTIME chloestrol 04/25/20 08/31/24 06/18/21 History oxycodone 10 mg tablet 10 mg PO Q5H PRN Moderate Pain 04/26/20 08/31/24 06/19/21 History (Scale Score 5-6) divalproex 250 mg tablet,extended 250 mg PO BEDTIME 09/08/20 08/31/24 03/04/23 History release 24 hr (Depakote ER) ezetimibe 10 mg tablet (Zetia) 10 mg PO DAILY 10/24/20 08/31/24 06/19/21 History multivitamin (Daily Vitamin 1 tab PO DAILY 10/24/20 08/31/24 06/19/21 History Formula tablet) ranolazine 1,000 mg 1,000 mg PO BID 09/10/22 08/31/24 Unknown History tablet,extended release,12 hr lisinopril 5 mg tablet 5 mg PO DAILY 12/09/22 08/31/24 Unknown History pantoprazole 40 mg tablet,delayed 40 mg PO DAILY 09/12/23 08/31/24 09/02/24 History release metoprolol tartrate 100 mg tablet 100 mg PO BID 08/31/24 08/31/24 09/02/24 History aspirin 81 mg tablet,delayed 81 mg PO QAM 09/01/24 09/01/24 09/01/24 History release Exam Height,Weight and Vital Signs: Height 5 ft 11 in Weight 92.533 kg Pertinent Lab Results Pertinent Lab Results: Laboratory Tests 07/08/24 19:20 WBC 9.5 Hgb 13.3 L Hct 39.0 L Plt Count 316 Sodium 138 Potassium 4.2 Chloride 104 Carbon Dioxide 25 BUN 17 H Creatinine 0.77 Narrative Narrative: cardiac catheterization which was done on 11/04/2023 showing no significant change in anatomy, right PDA and RCA stents patent Cardiac Device Check Details: Date of service- 07/25/2024 ; Battery life >10 years; normal lead parameters; AP 40%; GRAPHICS PRODUCTION SPECIALIST <1%; no significant arrhythmias. Overall normal device function. [id number] Cardiac Device Interrogation, pacemaker Procedure code (CPT) selection complete EKG 04/2024 Vent. Rate : 060 BPM Atrial Rate : 060 BPM P-R Int : 202 ms QRS Dur : 098 ms QT Int : 434 ms P-R-T Axes : 098 -12 041 degrees QTc Int : 434 ms Atrial-paced rhythm Cannot rule out Inferior infarct (cited on or before 29-NOV-2017) Abnormal ECG When compared with ECG of 29-NOV-2023 19:08, No significant change was found ECHO 2022 Conclusions: - 1. Normal LV systolic function with asymmetric septal hypertrophy with impaired relaxation filling pattern, subaortic obstruction cannot be entirely ruled out 2. Increased gradient across aortic valve, possibility of early mild aortic stenosis 3. Normal RV systolic pressure 4. No gross pericardial effusion Assessment and Plan Assessment Anesthesia Assessment: Chart Reviewed Final Anesthetic Review Family History of Problems with Anesthesia: No History of Problems with Anesthesia: No Documented by User: Maria C Mckenzie MD 09/02/24 07:26 [facility] Past Medical History Medical History (Updated 08/31/24 @ 09:50 by Kathy Brand RN) Nicotine dependence, cigarettes, uncomplicated Elevated cholesterol History of chemotherapy Obstructive sleep apnea (~2018) On anticoagulant therapy DVT (deep venous thrombosis) Essential hypertension Tubular adenoma of colon COVID-19 vaccine administered Seizures (~04/2020) GERD (gastroesophageal reflux disease) Esophagitis Atherosclerotic cardiovascular disease Psychotic disorder Syncope Headache Myocardial infarction Pacemaker (~05/2013) Tremor Brain bleed CAD (coronary artery disease) Family History Family History Father Heavy cigarette smoker Throat cancer Mother Heart disease Surgical History Surgical History Hx of shoulder surgery History of total left knee replacement History of ERCP History of spinal surgery History of colonoscopy (~09/2020) History of right knee surgery (~12/2013) History of total right hip replacement (~06/2012) History of cholecystectomy History of cardiac catheterization History of permanent cardiac pacemaker placement (~05/2013) History of esophagogastroduodenoscopy (EGD) (~09/2020) History of appendectomy Stented coronary artery Social History Social History Household Members: None Household Members Other:: shares house with a friend Housing: House Are you a primary animal caretaker supervisor to a significant other at home: No Do you presently have visiting nurse or other home services: No Alcohol intake: never Comment: resting eyes closed Patient Tobacco Use Status: Current someday Tobacco user Tobacco use type: Cigarette Years Smoked: 8 +/- e-Cigarette/Vaping Use: Never Used Second Hand Smoke Exposure: No Have you been hit, kicked, punched, or otherwise hurt by someone within the past year? If so, by whom?: No Are you DNR?: No Advance Directives: No Advance Directives Information Provided: Yes Advance Directives Date on File: 12/16/20 Recently lost weight without trying: No Nutrition Risks: No Nutritional Risk service: No Current occupational status: employed and retired Meds Allergies Allergy/AdvReac Type Severity Reaction Status Date / Time bee pollen [BEE STINGS] Allergy Severe ANAPHYLAXIS Verified 07/15/24 09:37 indomethacin [Indocin] Allergy Severe anaphylaxis Verified 07/15/24 09:37 tramadol [Ultram] Allergy Severe anaphylaxis Verified 07/15/24 09:37 fentanyl AdvReac Intermediate Anxiety Verified 08/31/24 09:38 Home Medications ?Medication ?Instructions ?Recorded ?Confirmed ?Last Taken ?Type rosuvastatin 40 mg tablet (Crestor) 40 mg PO BEDTIME chloestrol 04/25/20 08/31/24 06/18/21 History oxycodone 10 mg tablet 10 mg PO Q5H PRN Moderate Pain 04/26/20 08/31/24 06/19/21 History (Scale Score 5-6) divalproex 250 mg tablet,extended 250 mg PO BEDTIME 09/08/20 08/31/24 03/04/23 History release 24 hr (Depakote ER) ezetimibe 10 mg tablet (Zetia) 10 mg PO DAILY 10/24/20 08/31/24 06/19/21 History multivitamin (Daily Vitamin 1 tab PO DAILY 10/24/20 08/31/24 06/19/21 History Formula tablet) ranolazine 1,000 mg 1,000 mg PO BID 09/10/22 08/31/24 Unknown History tablet,extended release,12 hr lisinopril 5 mg tablet 5 mg PO DAILY 12/09/22 08/31/24 Unknown History pantoprazole 40 mg tablet,delayed 40 mg PO DAILY 09/12/23 08/31/24 09/02/24 History release metoprolol tartrate 100 mg tablet 100 mg PO BID 08/31/24 08/31/24 09/02/24 History aspirin 81 mg tablet,delayed 81 mg PO QAM 09/01/24 09/01/24 09/01/24 History release Exam Airway Mallampati Class: II TM Dist: >3cm Neck ROM: Full Denture: Upper Assessment and Plan Assessment Anesthesia Assessment: Anesthesia Plan Discussed Final Anesthetic Review NPO: Yes ASA Class: III Final Preanesthetic Review: No Changes in Pt Med Stat, Meds/Allgs Chart Reviewed, Consent Obtained/Reviewed, Anes Risks/Benef Reviewed and DNR Form (If Appl.) Patient Risk: Intermediate Procedure Risk: Low Anesthetic Plan Anesthetic Plan: TIVA Disposition: Standard PACU
[2024-09-02 06:33] VITALS: BP 133/69; PULSE 58; RESP 18; TEMP 36.4; O2SAT 95; BMI 28.7
[2024-09-02] MEDS: Lactated Ringers 1,000 ML 100 ML IVCONT (06:58)
--- NOTE | 2024-09-02 07:38 | MHC.SHP ---
Pre-Procedural Eval Section A - 24 Hr Update-Section A only Date of Service: 09/02/24 Section B - Complete if H&P > 30 days Chief Complaint: Diarrhea, unspecified Relevant Family History (Specify if Yes): No Relevant Social History: Tobacco Use Present Medications: see Short Stay Collaborative assessment Medical History: Significant History (Nicotine dependence, cigarettes, uncomplicated Elevated cholesterol History of chemotherapy Obstructive sleep apnea (~2018) On anticoagulant therapy DVT (deep venous thrombosis) Essential hypertension Tubular adenoma of colon COVID-19 vaccine administered Seizures (~04/2020) GERD (gastroesophageal r) History of Previous Operations: Relevant previous surgery/procedure and date(s) (Hx of shoulder surgery History of total left knee replacement History of ERCP History of spinal surgery History of colonoscopy (~09/2020) History of right knee surgery (~12/2013) History of total right hip replacement (~06/2012) History of cholecystectomy History of cardiac catheterization History o) Allergies: Allergies Allergy/AdvReac Type Severity Reaction Status Date / Time bee pollen [BEE STINGS] Allergy Severe ANAPHYLAXIS Verified 07/15/24 09:37 indomethacin [Indocin] Allergy Severe anaphylaxis Verified 07/15/24 09:37 tramadol [Ultram] Allergy Severe anaphylaxis Verified 07/15/24 09:37 fentanyl AdvReac Intermediate Anxiety Verified 08/31/24 09:38 Review of Systems Sugical H&P ROS: Negative: Constitution, Cardiovascular, Respiratory, Neurological, Psychiatric, Hem-Onc, Allergic/Immunologic, Gastrointestinal, Genitourinary, Musculoskeletal, Integumentary, Endocrine and Eyes/Ears/Nose/Throat Exam Surgical H&P Exam: Normal: HEENT, Normal: Heart, Normal: Lungs, Normal: Extremities, Normal: Abdomen, Normal: Skin and Normal: Neurological Plan Diagnosis/Plan: Unchanged I have reviewed the history and physical and performed a pertinent physical examination on my patient. No changes have occurred unless specified. Time Spent With Patient Time: Total time managing care of this patient today ____ minutes.
--- NOTE | 2024-09-02 08:05 | P.OPN-COLO_ITS ---
Colonoscopy Operative Note Operative Note Date of Service: 09/02/24 Narrative: Operative Information Procedure Description: Colonoscopy Indication: abdominal pain Anesthesia: MAC COLONOSCOPY Instrument: Olympus variable stiffness pediatric scope 190L Colonoscopy Monitoring: Vital signs and clinical assessment, continuous EKG monitoring, Pulse oximetry, Carbon Dioxide monitoring and blood pressure monitoring were done throughout the procedure. Colon withdrawal time was 10 minutes. Procedure: The patient was placed in the left lateral decubitis position and pre-procedure medications were administered. After a digital rectal examination of the ano-rectum, the video colonoscope was inserted into the rectum and advanced through the colon to the cecum/TI. The colonoscope was slowly withdrawn in a retrograde panoramic fashion and the colon mucosa was carefully examined including a retroflexed view of the rectum. Findings and interventions are described below. Procedure Difficulty: easy Findings: Terminal Ileum- mild ileitis, bx taken Random bx from right, left and rectum in separate jars Cecum: x 1 sessile polyp 3-4 mm removed with cold forceps Ascending Colon: midl diverticulosis, x 1 sessile polyp 4-5 mm removed with cold forceps Transverse Colon -normal Descending Colon: x 1 sessile polyp 5-7 mm removed with cold snare Sigmoid Colon: x1 sessile polyp 5-6 mm removed with cold snare, moderate diverticulosis noted Rectum: Retroflexion with small internal hemorrhoids seen, grade I, mild erythema noted Anorectum - normal Intervention: cold forceps, cold snare polypectomy Colon preparation: [place] Bowel Preparation Scale Right colon; 2 Transverse colon: 2 Left colon; 2 (0 = Unprepared colon segment with mucosa not seen due to solid stool that cannot be cleared. 1 = Portion of mucosa of the colon segment seen, but other areas of the colon segment not well seen due to staining, residual stool and/or opaque liquid. 2 = Minor amount of residual staining, small fragments of stool and/or opaque liquid, but mucosa of colon segment seen well. 3 = Entire mucosa of colon segment seen well with no residual staining, small fragments of stool or opaque liquid) Impression and Post Procedure Diagnosis: diverticulosis colon polyps internal hemorrhoids Plan: High fiber diet leaflet Avoid straining at stool, epsom salts and sitz bath, anusol supps or cream Repeat Colonoscopy in 3 years or earlier if clinically indicated Above findings were reviewed with the patient and relevant handouts were provided if indicated.
[2024-09-02 08:08] VITALS: BP 103/54; PULSE 60; RESP 16; TEMP 36.9; O2SAT 96
[2024-09-02 08:23] VITALS: BP 126/68; PULSE 60; RESP 16; O2SAT 96
[2024-09-02 08:38] VITALS: BP 126/68; PULSE 60; RESP 16; TEMP 36.1; O2SAT 97
== END 2024-09-02 09:01 | disposition home or self-care (01) ==
PROVIDERS: PCP Internal Medicine Geriatric Medicine; Visit Provider Internal Medicine Gastroenterology
PROC: 0DJD8ZZ Inspection of Lower Intestinal Tract, Via Natural or Artificial Opening Endoscopic (ICD-10-PCS; CPT 45378; principal; 2024-09-02 07:30)
DX: R10.9 Unspecified abdominal pain (principal); Z86.0101 Personal history of adenomatous and serrated colon polyps; K52.9 Noninfective gastroenteritis and colitis, unspecified; D12.0 Benign neoplasm of cecum; D12.5 Benign neoplasm of sigmoid colon; K63.5 Polyp of colon; K51.40 Inflammatory polyps of colon without complications; K57.30 Diverticulosis of large intestine without perforation or abscess without bleeding; K64.0 First degree hemorrhoids; K21.9 Gastro-esophageal reflux disease without esophagitis; I10 Essential (primary) hypertension; I25.10 Atherosclerotic heart disease of native coronary artery without angina pectoris; Z95.5 Presence of coronary angioplasty implant and graft; I25.2 Old myocardial infarction; Z95.0 Presence of cardiac pacemaker; I48.0 Paroxysmal atrial fibrillation; I49.5 Sick sinus syndrome; E78.00 Pure hypercholesterolemia, unspecified; I82.542 Chronic embolism and thrombosis of left tibial vein; I73.9 Peripheral vascular disease, unspecified; G47.33 Obstructive sleep apnea (adult) (pediatric); Z79.01 Long term (current) use of anticoagulants; Z79.82 Long term (current) use of aspirin; Z79.899 Other long term (current) drug therapy; Z92.21 Personal history of antineoplastic chemotherapy; Z88.8 Allergy status to other drugs, medicaments and biological substances; Z90.49 Acquired absence of other specified parts of digestive tract; Z98.890 Other specified postprocedural states; F17.210 Nicotine dependence, cigarettes, uncomplicated
CPT/HCPCS: 45385; 45380; 88305; J2003; J2704

== ENCOUNTER → 2024-09-02 06:26 | Outpatient (BNV) | payer MEDICARE, MEDICAID, SELFPAY | PROVIDERS: PCP Internal Medicine Geriatric Medicine; Visit Provider Internal Medicine Gastroenterology | DX: R10.9 Unspecified abdominal pain (principal); K52.9 Noninfective gastroenteritis and colitis, unspecified; D12.5 Benign neoplasm of sigmoid colon; D12.0 Benign neoplasm of cecum; K63.5 Polyp of colon; K64.8 Other hemorrhoids | CPT/HCPCS: 45380; 45385 ==

== ENCOUNTER 2024-09-15 14:01 | Outpatient (AMB) | payer MEDICARE, MEDICAID, SELFPAY ==
--- NOTE | 2024-09-15 14:13 | AM.OFFWIN_ITS ---
Intake Vital Signs 09/15/24 14:14 Weight 201 lb BP 140/80 H Blood Pressure Location Rt brachial Position Sitting Pulse 74 Pulse Source Pulse Oximeter Pulse Oximetry (%) 97 Oxygen Delivery Method Room Air Intake Visit Reasons: EP Fall, LLQ pain, head pain Intake Note: Patient here because he fell head first while at work and is now having headaches and left flank pain. Patient Tobacco Use Status: Current someday Tobacco user Allergies bee pollen [BEE STINGS] Allergy (Severe, Verified 09/15/24 14:15) ANAPHYLAXIS indomethacin [Indocin] Allergy (Severe, Verified 09/15/24 14:15) anaphylaxis tramadol [Ultram] Allergy (Severe, Verified 09/15/24 14:15) anaphylaxis fentanyl Adverse Reaction (Intermediate, Verified 09/15/24 14:15) Anxiety Do you need a note to return to daycare/school/sports/work: No HPI HPI Comments History of Present Illness Details History of Present Illness - The patient is a 69-year-old male with a past med hx of paroxysmal AFib on apixaban, HTN, CAD, sick sinus rhythm s/p pacer, PAD presenting with a head injury yesterday with associated dizziness like he is off balance and nausea. - The incident involved the patient abdulaziz iding headfirst into a fire apparatus which sticks out of the side of the building yesterday, resulting in a brief loss of consciousness. 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 He is unclear exactly what happened with his fall but also has right flank pain. - Since the incident, the patient has ex perienced dizziness, nausea and unsteadiness on his feet. Denies vomiting, photophonia or photophobia. - s/p left hip replacement. Physical Exam General: Cooperative, healthy appearing, comfortable, no acute distress and well developed Orientation: Patient oriented x3 Limitations: No limitations Head: Normal to inspection Ears: Hearing grossly normal bilaterally Nose: Normal External nose present Face and sinus: Normal facial exam Eyes: Appearance normal, both eyes and all related structures Neck: Normal visual inspection and Yes full ROM Respiratory: Normal respiratory effort and able to speak in complete sentences. Skin: No rashes or lesions noted Neuro: see below Extremities: Normal to inspection, abrasion right inferior knee, no signs of infection noted [facility] Medical History (Updated 09/15/24 @ 15:00 by Marika Nielsen PA-C) Nicotine dependence, cigarettes, uncomplicated Elevated cholesterol History of chemotherapy Obstructive sleep apnea (~2018) On anticoagulant therapy DVT (deep venous thrombosis) Essential hypertension Tubular adenoma of colon COVID-19 vaccine administered Seizures (~04/2020) GERD (gastroesophageal reflux disease) Esophagitis Atherosclerotic cardiovascular disease Psychotic disorder Syncope Headache Myocardial infarction Pacemaker (~05/2013) Tremor Brain bleed CAD (coronary artery disease) Surgical History Hx of shoulder surgery History of total left knee replacement History of ERCP History of spinal surgery History of colonoscopy (~09/2020) History of right knee surgery (~12/2013) History of total right hip replacement (~06/2012) History of cholecystectomy History of cardiac catheterization History of permanent cardiac pacemaker placement (~05/2013) History of esophagogastroduodenoscopy (EGD) (~09/2020) History of appendectomy Stented coronary artery Family History Father Heavy cigarette smoker Throat cancer Mother Heart disease Social History Household Members: None Household Members Other:: shares house with a friend Housing: House Are you a primary career services officer to a significant other at home: No Do you presently have visiting nurse or other home services: No Alcohol intake: never Comment: resting eyes closed Patient Tobacco Use Status: Current someday Tobacco user Tobacco use type: Cigarette Years Smoked: 8 +/- e-Cigarette/Vaping Use: Never Used Second Hand Smoke Exposure: No Advance Directives Date on File: 12/16/20 service: No Current occupational status: employed and retired Physical Exam Vital Signs: Last Vital Signs Pulse 74 09/15/24 14:14 BP 140/80 H 09/15/24 14:14 Pulse Ox 97 09/15/24 14:14 Oxygen Delivery Method Room Air 09/15/24 14:14 Const Orientation/consciousness: patient oriented x3 Neuro General: patient oriented x3, gait normal and CN's II-XI intact bilaterally Assessment & Plan Assessment & Plan (1) Fall: Code(s): W19.XXXA - Unspecified fall, initial encounter Qualifiers: Encounter type: initial encounter Qualified Code(s): W19.XXXA - Unspecified fall, initial encounter Plan: Given the head injury accompanied by dizziness and nausea, and the patient's anticoagulation therapy with Eliquis, I have prioritized obtaining an urgent head CT scan to rule out any intracranial bleeding. The patient will be hemant eling to [facility] ER for this evaluation, following the discussion on importance due to increased bleeding risk. Arrangements for transportation were made given the necessity for prompt imaging and assessment, patient knows he cannot drive until cleared, medically. He has a friend picking him up. Called [facility] [place] [place] ED with ashish, spoke with CM Abbasi Patient was informed and verbally consented to the use of an ambient scribe for clinic note documentation during this visit. 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
[2024-09-15 14:14] VITALS: BP 140/80; PULSE 74; O2SAT 97
--- OUTSIDE RECORDS SUMMARY | 2024-09-15 16:17 | XMS_ITS ---
Author Organization [facility] Address [address] [place] [address] Care Team Providers Care Sand Mill Operator Facing Sand Name Role Phone Name Memo ARREDONDO Primary Care Provider Rolly Manzanares Unavailable [phone] Allergies Allergen (clinical drug ingredient) Drug/Non Drug Allergy documented on EMR Reaction Allergy Type Onset Date Status indomethacin Indocin Unknown Drug Allergy Acti ve enoxaparin Lovenox Unknown Drug Allergy Active tramadol Ultram Unknown Drug Allergy Active Bee Sting Unknown Allergy Active REASON FOR VISIT Ingrown nail(s), Possible Infection Medications Medication SIG (Take, Route, Frequency, Duration) Notes Start Date End Date Status Rosuvastatin Calcium 40 MG 1 tablet Oral ly Once a day for 30 day(s) Active oxyCODONE HCl 10 MG 1 tablet as needed O rally every 6 hrs Active Nitroglycerin 0.4 MG Sublingual for 30 Active Ranolazine ER 1000 MG 1 tablet [...] Twice a day for 30 day(s) Active Divalproex Sodium 250 MG 1 tablet Orally Once a day for 30 day(s) Active Cephalexin 500 MG 1 capsule Orally Thr ee times a day for 10 days Active Aspirin 81 MG 1 tablet Orally Once a day for 30 day(s) Active Esomeprazole Magnesium Active amLODIPine Besylate 10 MG 1 tablet Orall y Once a day for 30 day(s) Active Social History Tobacco Use: Social History Observation Description Date Details (start date - stop date) Never Smoker NA - NA Tobacco use other than smoking: Question Answer Notes Are you an other tobacco user? No Tobacco Control (Standard) Question Answer Notes Tobacco use: Nonsmoker Additional Findings: Tobacco non-user Current no nsmoker AUDIT-C (Standard) Question Answer Notes Did you have a drink containing alcohol in the p ast year? No Points 0 Interpretation Negative Vital Signs Height 5 ft 11 in in 09/07/2024 Weight 210 lbs 09/07/2024 BMI 29.29 kg/m2 09/07/2024 Blood pressure systolic 120 mm Hg 09/08/19 25 Blood pressure diastolic 70 mm Hg 025 Procedures Procedure Date Ordered Date Performed Result Body Sit e 46260-Tvtojpku Plate 09/07/2024 N/A Encounters Encounter Location Date Provider Diagnosis [facility] [address] [address] 09/07/2024 Rolly Herman Ingrown nail L60.0 ; Cellulitis of toe of left foot L03.032 and Atherosclerosis of [place] artery of both lower extremities, with unspecified presence of clinical manifestation I70.203 Assessments Encounter Date Diagnosis (ICD Code) Assessment Notes Treatment Notes Treatment Clinical Notes Section Notes 09/07/2024 Ingrown nail (ICD-10 - L60.0) 09/07/2024 Cellulitis of toe of left foot (ICD-10 - L03.032) 09/07/2024 Atherosclerosis of [place] artery of both lower extremities, with unspecified presence of clinical manifestation (ICD-10 - I70.203) Plan Of Treatment Medication Medication Name Sig Start Date Stop Date Notes Cephalexin 500 MG 1 capsule Orally Thr ee times a day for 10 days Pending Test Test Name Order Date 79674-Zgarryew Plate 09/07/2024 Next Appt Details Follow Up: prn, Reason: Procedure Notes * Category Sub-Category Detail Notes Nail Avulsion Procedure A fine sterile e levator was placed between the eponychium, nail fold, and nail plate to separate the the structures. A sterile nail splitter, and/or sterile 316 blade, was then used to longitudinally section the nail along its entire length through the eponychium to the area under the nail fold. The offending portion of nail was from the nail bed with a rolling action and then removed with a hemostat. No underlying bone was identified. There was minimal bleeding as hemostasis was achieved through the temporary use of either a digital tournaquet or the aforementioned local with epinephrine. A bacitracin sterile dressing was applied. Local wound aftercare instructions were discussed and dispensed. The patient was informed of both conservative and future surgical procedures to prevent recurrence. Tylenol or Motrin was recommended for pain or discomfort (41256), CIRCULATION: Pt was advised as to the risk of delayed or nonhealing due to circulation. Pt is to call the office with any questions, concerns, or complications Anesthesia 3cc of 1 percent Lid ocaine Plain local anesthesic utilizing aseptic technique Location Medial nail border, TA Progress Notes * Myles JARADOB:1955 (69 yo M)Acc No.[id number]:09/07/2024 Progress Note Patient:?ESTEFANI Myles Provider:?Rolly Herman DPM :1955???Age:69 Y???Sex:Male Phillip e:09/07/2024 Address:[address] [place], [place] [address], [place] Pcp:Memo Alex MD Subjective: * Chief Complaints: * ???Ingrown nail(s)Possible I nfection * HPI: ???Possible Infection:?Nature:?aching, swelling, throbbing, redness, weeping.?Location:?Great toe, Left foot.?Duration:?several days.?Course:?worse.?Aggravated by:?any pressure.?Treatments:?soaks, Peroxide.? 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 given antiboitics 01/08/22[facility]-Drain left knee 3x between 5 weeks 2021C - AFib and choke at sametime- coded 2x CPR done 2 days 06/13/20[facility]- Pacemaker 08/2024 * Family History:?Mother: dece ased.?Father: , diagnosed with Other malignant neoplasm of unspecified site.? * Social History:?Tobacco Use:?Tobacco use other than smoking?Are you an other tobacco user??No ?Tobacco Control (Standard)?Tobacco use:?Nonsmoker ?Additional Findings: Tobacco non-user?Current nonsmoker ???Drugs/Alcohol:?Drugs?Have you used drugs other than those for medical reasons in the past 12 months??No ???Miscellaneous:?Caffeine: yes, frequency: coffee , 4 cups per day. ?Children: yes, Step. ?Exercise: yes, walking. ?Marital status: . ?Occupation: Disabled. ???Drug/Alcohol:?AUDIT-C (Standard)?Did you have a drink containing alcohol in the past year??No ?Points?0 ?Interpretation?Negative * Medications:?TakingEsomepraz ole Magnesium Aspirin 81 MG Tablet Chewable 1 tablet Orally Once a day amLODIPine Besylate 10 MG Tablet 1 tablet Orally Once a day Divalproex Sodium 250 MG Tablet Delayed Release 1 tablet Orally Once a day eliquis 5 mg Tablet Ezetimibe 10 MG Tablet 1 tablet Orally Once a day Lisinopril 10 MG Tablet 1 tablet Orally Once a day Metoprolol Tartrate 50 MG Tablet 1 tablet with food Orally Twice a day Multivitamin - Tablet 1 tablet Orally Once a day Nitroglycerin 0.4 MG Tablet Sublingual Sublingual oxyCODONE HCl 10 MG Tablet 1 tablet as needed Orally every 6 hrs Pantoprazole Sodium 40 MG Tablet Delayed Release 1 tablet Orally Once a day Ranolazine ER 1000 MG Tablet Extended Release 12 Hour 1 tablet Orally Twice a day Rosuvastatin Calcium 40 MG Tablet 1 tablet Orally Once a day Medication List reviewed and reconciled with the patientTaking Esomeprazole Magnesium Taking Aspirin 81 MG Tablet Chewable 1 tablet Orally Once a day Taking amLODIPine Besylate 10 MG Tablet 1 tablet Orally Once a day Taking Divalproex Sodium 250 MG Tablet Delayed Release 1 tablet Orally Once a day Taking eliquis 5 mg Tablet Taking Ezetimibe 10 MG Tablet 1 tablet Orally Once a day Taking Lisinopril 10 MG Tablet 1 tablet Orally Once a day Taking Metoprolol Tartrate 50 MG Tablet 1 tablet with food Orally Twice a day Taking Multivitamin - Tablet 1 tablet Orally Once a day Taking Nitroglycerin 0.4 MG Tablet Sublingual Sublingual Taking oxyCODONE HCl 10 MG Tablet 1 tablet as needed Orally every 6 hrs Taking Pantoprazole Sodium 40 MG Tablet Delayed Release 1 tablet Orally Once a day Taking Ranolazine ER 1000 MG Tablet Extended Release 12 Hour 1 tablet Orally Twice a day Taking Rosuvastatin Calcium 40 MG Tablet 1 tablet Orally Once a day Medication List reviewed and reconciled with the patient * Allergies:?Bee StingLovenoxI ndocinUltramyes[Allergies Verified] Objective: * Vitals:?Ht:5 ft 11 in, Wt:21 0, BMI:29.29, Shoe size:9, BP:120/70mm Hg, Ht-cm: 180.34 cm, Wt-k.26 kg. * Examination: ???Ingrown Nail: ?INSPECTION:?Reveals nail incurvation, pain on palpation, groove hypertrophy, Medial nail border, TA.?Dermatologic: ?SKIN FINDINGS:?Skin shows sign(s) of, localized cellulitis without lymphangitis to the level of the IPJ , TA, Skin exam reveals Keratotic lesion(s) located at, SUB MTH (s), 1, B/L, Plantar, Heel(s), B/L.?Orthopedic: ?MUSCLE STRENGTH:?5/5 all groups in a symmetrical fashion, B/L.?GAIT ABNORMALITY:? antalgic.?Vascular: ?DP PULSES (B):? 1/4, B/L.?PT PULSES (B):? 0/4, B/L.?CAPILLARY FILL TIME:? delayed, all digits, B/L.?TROPHIC CONDITION-TEXTURE/ELASTICITY/TURGOR/HAIR GROWTH (B):?decreased, with sparse to absent hair growth, B/L.?TEMPERTURE GRADIENT (C):? decreased, cool to cool, proximal to distal, B/L.?PIGMENTATION:? mottled, B/L.?EDEMA (C):?absent, B/L.?CLAUDICATION (C):?denies, B/L.?REST PAIN:?denies, B/L.?Nails: ?NAILS are:? Elongated, overgrown, dystrophic, lytic, greater than 3mm thick, discolored and friable with crumbly malodorous subungual debris, with pain on palpation, TA, T1, T2, T3, T4, T5, T6, T7, T8, T9.?Neurological: ?SENSORY:?Neurological exam reveals intact sensorium, pain sensation normal, vibration sensation intact, pinprick sensation is normal in the lower extremities, Pt denies, anesthesia, burning, paresthesia, tingling, B/L.?DEEP TENDON REFLEXES:?Achilles , 06/12, B/L.?General Examination: ?GENERAL APPEARANCE:?Denies fever, chills, malaise, lymphadenopathy , Reveals a pleasant, alert, well nourished, well-developed, well hydrated individual, who demonstrates proper attention to hygiene/body habitus, and is in no acute distress , Pt serves as own historian for office visit today.?ORIENTED:?person, place, and time.? Assessment: * Assessment: 1.?Ingrown nail - L60.0 (Hattie gonzales)???Specify :Medial nail border,?TA???2.?Cellulitis of toe of left foot - L03.032???Specify :Acute problem, Complicated w/ Multiple Tx Options(4),Rx drug management (4)???3.?Atherosclerosis of [place] artery of both lower extremities, with unspecified presence of clinical manifestation - I70.203??? Plan: * Treatment: 2.?Cellulitis of toe of left foot? Start Cephalexin Capsule, 500 MG, 1 capsule, Orally, Three times a day, 10 days, 30 Capsule, Refills 0.?? * Procedures:?Nail Avulsion:?Location?Medial nail border,?TA.?Anesthesia?3cc of 1 percent Lidocaine Plain local anesthesic utilizing aseptic technique.?Procedure?A fine sterile elevator was placed between the eponychium, nail fold, and nail plate to separate the the structures. A sterile nail splitter, and/or sterile 316 blade, was then used to longitudinally section the nail along its entire length through the eponychium to the area under the nail fold. The offending portion of nail was from the nail bed with a rolling action and then removed with a hemostat. No underlying bone was identified. There was minimal bleeding as hemostasis was achieved through the temporary use of either a digital tournaquet or the aforementioned local with epinephrine. A bacitracin sterile dressing was applied. Local wound aftercare instructions were discussed and dispensed. The patient was informed of both conservative and future surgical procedures to prevent recurrence. Tylenol or Motrin was recommended for pain or discomfort (63852), CIRCULATION: Pt was advised as to the risk of delayed or nonhealing due to circulation. Pt is to call the office with any questions, concerns, or complications.? * Procedure Codes:?41274 Avuls ion Plate, Modifiers: TA * Preventive Medicine:? ??Counseling:?Discussion:?-14: Office or other outpatient visit for the evaluation and management of an established patient, which required a medically appropriate history and/or examination and MODERATE level of DECISION MAKING for: 1 OR MORE CHRONIC PROBLEM(S) THATS WORSENING, 2 STABLE CHRONIC PROBLEMS, A NEWLY DIAGNOSED PROBLEM WITH UNCERTAIN PROGNOSIS, AN ACUTE COMPLICATED INJURY WITH MULTIPLE TREATMENT OPTIONS, OR AN ACUTE PROBLEM WITH ACCOMPANYING SYSTEMIC SYMPTOMS, THAT POSE(S) A MODERATE RISK OF MORBIDITY. THIS CONDITION MAY ALSO INCLUDE RX DRUG MANAGEMENT, OR A DECISON FOR MINOR SURGERY. The visit on the day of the encounter encompassed interpreting the data and educating the patient as to the nature of their condition, treatment options available according to their individual PMH, meds, allergies, and overall health/living conditions, as well as any potential risks or complications that may occur from a failure to adhere to, and participate in, the recommended course of therapy. The discussion included a complete verbal, and/or written explanation of the examination results, any x-rays taken, the proposed diagnosis, and outline of the treatment plan. A schedule for future care needs was also explained. The patient verbalized an understanding of the instructions at this time and agreed to be an active participant in their treatment. If the patient should think of any questions or concerns after the visit, I have encouraged the patient to call the office.?Cellulitis/Lymphangitis?The patient was counseled on the diagnosis, etiology, treatment options, and importance for adherence to recommendations regarding the treatment for Cellulitis. Abx were Rxed to address the cellulitis. The advantages and disadvantages of an antibiotic medication, along with its side effects, were discussed with the patient to their comprehended satisfaction. Patient questions re: use, dosage, and possible pharmacutical interactions were reviewed and the answers clearly understood. If the condition should worsen while taking the antibiotics as directed, it was recommeded that the patient call the office immediately or seek emergency medical care. The patient verbally confirmed a full understanding of the above information.? ??Screening/Special Tests:?Fall Risk?Screening:?No falls in the past year ?FALLS: Screening for Future Fall Risk?Have you had any falls with injury in the past year??No * Follow Up:?prn * Images: * Sign off status: Completed true * Provider:?Rolly Herman DPM Date:?2024 Generated for James hatfield/Jorge Alberto/Robbin on:?09/15/2024 04:17 PM EDT History and Physical Notes * HPI (History of Present Illness) Category Sub-Category Detail Notes Category Not es Possible Infection Location: Great toe, Left foot Duration: several days Nature: aching, swelling, th robbing, redness, weeping Course: worse Aggravated by: any pressure Treatments: soaks, Peroxide Examination Category Sub-Category Detail Notes Category Not es Ingrown Nail INSPECTION: Reveals nail inc urvation, pain on palpation, groove hypertrophy, Medial nail border, TA Neurological SENSORY: Neurological exa m reveals intact sensorium, pain sensation normal, vibration sensation intact, pinprick sensation is normal in the lower extremities, Pt denies, anesthesia, burning, paresthesia, tingling, B/L DEEP TENDON REFLEXES: Achilles , 1/4, B/ L Dermatologic SKIN FINDINGS: Skin shows sign( s) of, localized cellulitis without lymphangitis to the level of the IPJ , TA, Skin exam reveals Keratotic lesion(s) located at, SUB MTH (s), 1, B/L, Plantar, Heel(s), B/L Orthopedic GAIT ABNORMALITY: antalgic MUSCLE STRENGTH: 5/5 all groups in a symmetrical fashion, B/L General Examination GENERAL APPEARANCE: Denies f ever, chills, malaise, lymphadenopathy , Reveals a pleasant, alert, well nourished, well-developed, well hydrated individual, who demonstrates proper attention to hygiene/body habitus, and is in no acute distress , Pt serves as own historian for office visit today ORIENTED: person, place, and t asif Vascular DP PULSES (B): 1/4, B/L PT PULSES (B): 0/4, B/L CAPILLARY FILL TIME: delayed, all digits , B/L TEMPERTURE GRADIENT (C): decreased, cool to cool, proximal to distal, B/L TROPHIC CONDITION-TEXTURE/ELASTICITY/TURGOR/HAIR GROWTH (B): decreased, with sparse to absent hair gr owth, B/L EDEMA (C): absent, B/L CLAUDICATION (C): denies, B/L REST PAIN: denies, B/L PIGMENTATION: mottled, B/L Nails NAILS are: Elongated, overg rown, dystrophic, lytic, greater than 3mm thick, discolored and friable with crumbly malodorous subungual debris, with pain on palpation, TA, T1, T2, T3, T4, T5, T6, T7, T8, T9
--- OUTSIDE RECORDS SUMMARY | 2024-09-15 16:17 | XMS_ITS ---
Author Organization [facility] Address [address] [place] [address] Care Team Providers Care Flavoring Machine Operator Name Role Phone Name Memo ARREDONDO Primary Care Provider Rolly Manzanares [phone] REASON FOR VISIT cx same day 09/30/23 Encounters Encounter Location Date Provider Diagnosis [facility] [address] [place] [address] 09/30/2023 Rolly Herman Plan Of Treatment No Information Progress Notes * Myles JARADOB:1955 (68 yo M)Acc No.[id number]:09/30/2023 Patient:?TobiMyles davis :1955???Age:68 Y???Sex:Male Address:[address] [place] [address], [place], [address] * true * Date:? Generated for Printi ng/Faethelg/eTransmitting on:?09/15/2024 04:17 PM EDT
--- OUTSIDE RECORDS SUMMARY | 2024-09-15 16:17 | XMS_ITS ---
Author Organization [facility] Address [address] [place] [address] Care Team Providers Care Mutuel Department Manager Name Role Phone Name Memo ARREDONDO Primary Care Provider Rolly Manzanares Unavailable [phone] Encounters Encounter Location Date Provider Diagnosis [address] [address] 09/30/2023 Rolly Herman Plan Of Treatment No Information Progress Notes * Myles JARADOB:1955 (69 yo M)Acc No.[id number]:09/30/2023 Progress Note Patient:Myles WHITING Provider:?Rolly Herman DPM :1955???Age:68 Y???Sex:Male Phillip e:09/30/2023 Address:[address] [place], [place] [id number] Pcp:Memo Alex MD Subjective: * Chief Complaints: [...] Herman DPM Date:?2023 Generated for Printi ng/Faethelg/eTransmitting on:?09/15/2024 04:17 PM EDT
--- OUTSIDE RECORDS SUMMARY | 2024-09-15 16:17 | XMS_ITS | Patient Health Record ---
Author Organization [facility] Address [address] [facility] [place] [address] Care Team Providers Care Life Skills Specialist Name Role Phone Name Memo ARREDONDO Primary Care Provider Rolly Manzanares Unavailable [phone] Allergies Allergen (clinical drug ingredient) Drug/Non Drug [...] 30 day(s) Active eliquis 5 mg Active Divalproex Sodium 250 MG 1 tablet [...] Twice a day for 30 day(s) Active Cephalexin 500 MG 1 capsule Orally Thr ee times a day for 10 days Active oxyCODONE HCl 10 MG 1 tablet as needed O rally every 6 hrs Active Nitroglycerin 0.4 MG Sublingual for 30 Active Aspirin 81 MG 1 tablet Orally Once a day for 30 day(s) Active Ranolazine ER 1000 MG 1 tablet Orally Tw ice a day for 30 day(s) Active Esomeprazole Magnesium Active Pantoprazole Sodium 40 MG 1 tablet Orall y Once a day for 30 day(s) Active amLODIPine Besylate 10 MG 1 tablet Orall y Once a day for 30 day(s) Active Immunizations Vaccine Route Administration Date Status Commelsy nts COVID-19 Moderna Vaccine Unknown 10/17/2021 Administered [...] ast year? No Points 0 Interpretation Negative Problems Problem Type SNOMED Code ICD Code Onset Dates Problem Status W/U Status Risk Notes Problem Atherosclerosis of [place] arteries of the extremities (686024505709131) Atherosclerosis of [place] artery of both lower extremities, with unspecified presence of clinical manifestation (I70.203) Active confirmed Vital Signs Blood pressure diastolic 70 mm Hg 09/07/2024 Height 5 ft 11 in in 09/07/2024 Blood pressure systolic 120 mm Hg 09/07/2024 Weight 210 lbs 09/07/2024 BMI 29.29 kg/m2 09/07/2024 Procedures Procedure Date Ordered Date Performed Result Body Sit e 03476-Xdcptxap Plate 09/07/2024 N/A Encounters Encounter Location Date Provider Diagnosis [facility] [address] 09/07/2024 Rolly Herman Ingrown nail L60.0 ; Cellulitis of toe of left foot L03.032 and Atherosclerosis of [place] artery of both lower extremities, with unspecified presence of clinical manifestation I70.203 [facility] [address] 09/30/2023 Rolly Herman Assessments Encounter Date Diagnosis (ICD Code) Assessment Notes Treatment Notes Treatment Clinical Notes Section Notes 09/07/2024 Ingrown nail (ICD-10 - L60.0) 09/07/2024 Cellulitis of toe of left foot (ICD-10 - L03.032) 09/07/2024 Atherosclerosis of [place] artery of both lower extremities, with unspecified presence of clinical manifestation (ICD-10 - I70.203) Plan Of Treatment Pending Test Test Name Order Date X ray : Foot, left 3V 01/23/2022 X ray : Foot, left 3V 11/29/2022 67677-YAHYWML NAIL, 6 OR MORE 02/25/2023 34101-ANQNOEG NAIL, 6 OR MORE 11/29/2022 15564-NLDIZEZ NAIL, 6 OR MORE 07/22/2023 18218-NRSLUBP NAIL, 6 OR MORE 03/05/2022 50987-YRTNJTP NAIL, 6 OR MORE 05/28/2022 89634-PWSELFP NAIL, 6 OR MORE 08/27/2022 27389-Nxpkhpuk Plate 05/28/2022 43983-Zwzufrhv Plate 09/07/2024 75726- Debride <25 sq cm 01/23/2022 10143 I&D ABSCESS- SIMPLE,SINGLE 022 45748-QPJG SKIN LESIONS, 2 TO 4 08/28/19 23 37861-JUQC SKIN LESIONS, 2 TO 4 05/28/20 22 67151-MBON SKIN LESIONS, 2 TO 4 07/22/19 24 81467-LMCO SKIN LESIONS, 2 TO 4 11/30/19 23 60552-QBRO SKIN LESIONS, 2 TO 4 02/26/20 23 Insurance Providers Payer Name Payer Address Payer Phone Subscriber Number Group Number Insured Name Patient Relationship to Insured Coverage Start Date Coverage End Date [employer] [address] [place] [address] [id number] Myles [place] Self - patient is the [...] spine surgery 09/04/2015 Hospitalization History Reason Date(Month/Year) [facility]- Pacemaker 08/2024 [facility] - AFib and choke at sametime- coded 2x CPR done 2 days 06/13/2022 [facility]-Drain left knee 3 x between 5 weeks 2021 [facility] [place] -[facility] painful L migel Ingrown? g iveyd antiboitics 01/08/22 Cardiac Cath and Stent Coronary artery disease invo lving [place] coronary artery of [place] heart with unstable angina pectoris
== END 2024-09-15 15:06 | disposition home or self-care (01) ==
PROVIDERS: PCP Internal Medicine Geriatric Medicine; Visit Provider Physician Assistant
DX: R51.9 Headache, unspecified (principal); R11.2 Nausea with vomiting, unspecified; W19.XXXA Unspecified fall, initial encounter; Z04.2 Encounter for examination and observation following work accident; Z79.01 Long term (current) use of anticoagulants

== ENCOUNTER → 2024-09-15 14:01 | Outpatient (BNVA) | payer MEDICARE, MEDICAID, SELFPAY | PROVIDERS: PCP Internal Medicine Geriatric Medicine; Visit Provider Physician Assistant | DX: R51.9 Headache, unspecified (principal); Z91.81 History of falling; Z79.01 Long term (current) use of anticoagulants | CPT/HCPCS: 99202 ==

== ENCOUNTER 2024-09-15 15:28 | Emergency (ER) | payer MEDICARE, MEDICAID, SELFPAY ==
--- NOTE | ~2024-09-15 | XR_ITS ---
EXAMINATION: XR CHEST CLINICAL INFORMATION: fall, left sided pain COMPARISON: 04/25/2024. TECHNIQUE: 2 views of the chest were obtained. FINDINGS: Dual lead left-sided pacemaker device with leads terminating in the right atrium and right ventricle. The cardiac, hilar, and mediastinal contours are normal. Mild aortic calcification. The lungs are clear bilaterally. There is no pneumothorax or pleural effusion. There is no focal osseous or soft tissue abnormality. No definite fracture seen. Degenerative changes throughout the spine. XR/XR chest 2V IMPRESSION: No active pulmonary disease. No fractures evident. Electronically signed by: Vick Koo MD 09/15/2024 04:49 PM EDT
--- NOTE | ~2024-09-15 | CT_ITS ---
EXAMINATION: CT HEAD WITHOUT CONTRAST CLINICAL INFORMATION: Head injury prior day, patient anticoagulated. COMPARISON: 03/20/2023. TECHNIQUE: Contiguous axial imaging was performed from the skull base to vertex without intravenous administration of contrast. This CT examination was performed using dose optimization techniques as appropriate, variously including the following: *Automated exposure control *Adjustment of mA and/or kV according to patient size (this includes techniques or standardized protocols for targeted exams where dose is matched to indication/reason for exam; i.e. extremities or head) *Use of iterative reconstruction technique FINDINGS: There is no evidence of intracranial hemorrhage or extra-axial fluid collection. There is no mass effect, or edema. No CT evidence of acute territorial infarct. Ventricles, sulci, and cisterns are normal in size and configuration for patient age. No hydrocephalus. No midline shift. Negative hyperdense MCA sign. Negative insular ribbon sign. 7 mm oval focus of hyperattenuation in the right occipital lobe, stable from prior exams, chronic. 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 Normal pituitary. Mild atheromatous calcification of the bilateral carotid siphons. Globes and orbital contents image normally. No extracranial soft tissue abnormalities. Trace amount of fluid in the right mastoid tip. Right mastoid otherwise well pneumatized. The paranasal sinuses, left mastoid air cells, and tympanic cavities are normally aerated. No suspicious bony abnormalities. There are no acute fractures evident. CT/CT head/brain wo IV con IMPRESSION: No acute intracranial abnormality. Electronically signed by: Vick Koo MD 09/15/2024 04:19 PM EDT
--- NOTE | ~2024-09-15 | CT_ITS ---
CLINICAL HISTORY: fall, LLQ ABD pain nausea, +eliquis CT abdomen and pelvis with contrast Comparison: CT/SR - CT ABDOMEN PELVIS W IV CON - 08/04/24 09:23 EST Findings: Focal area of hyper lucency in the medial right lung base, similar to prior. Lungs are clear. Intrahepatic and extrahepatic mild biliary dilatation is present, Unchanged from prior. Gallbladder is absent. Moderate calcified and noncalcified plaque of the abdominal aorta. Spleen, adrenal glands, pancreas are unremarkable. Kidneys enhance symmetrically and there is no hydronephrosis. Circumferential mild wall thickening in the hepatic flexure, series 7, image 108, which is new in comparison to prior. Large volume of fecal loading within the colon. No bowel obstruction, pneumoperitoneum, or pneumatosis. Appendix not visualized. Urinary bladder is normal. Prostatomegaly present. There is a right hip total arthroplasty in anatomic alignment. No lytic or blastic bone lesions. Degenerative changes of the lumbar spine are present. The bones are intact. IMPRESSION: 1. Circumferential area of mild wall thickening in the hepatic flexure of the colon is most likely a focal area of bowel contraction, less likely colonic mass or malignancy, given the rapidity of onset from prior. 2. Large amount of fecal loading within the colon. This document has been electronically signed by: Abdon Montes De Oca MD on 09/15/2024 19:40:05
--- NOTE | 2024-09-15 15:56 | ED.GENADULT ---
HPI - General Adult General Chief complaint: Fall Stated complaint: Fall, head injury Time Seen by Provider: 09/15/24 17:48 Source: patient and family Mode of arrival: ambulatory Limitations: no limitations History of Present Illness ED Provider: jacqui leung np HPI narrative: Patient is a 69-year-old male who presents emergency department coming from urgent care for evaluation. 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 Evidently the customer he was walking with stated that he had fallen striking his head onto a form of a water hydrant that comes out of the building down lower on the ground (meaning he did not strike his head and then fall). There was brief loss of consciousness of unclear duration. He is anticoagulated on Eliquis due to history of AFib and DVT. The customer went inside to get help. He states that he was otherwise feeling well yesterday that was his last customer and he went home. He denies having any prodromal/preceding symptoms. Denies any history of similar episodes occurring in the past. Today he presented back to work and he was just feeling generally malaised, having a headache, lightheadedness, nausea, and pain to his left lower abdomen. He went to urgent care for evaluation who advised him to come to the emergency department to be worked up further. Denies neck pain, chest pain, shortness of breath, palpitations, abdominal pain, hematochezia, melena. Related Data Home Medications ?Medication ?Instructions ?Recorded ?Confirmed rosuvastatin 40 mg tablet (Crestor) 40 mg PO BEDTIME chloestrol 04/25/20 08/31/24 oxycodone 10 mg tablet 10 mg PO Q5H PRN Moderate Pain 04/26/20 08/31/24 (Scale Score 5-6) divalproex 250 mg tablet,extended 250 mg PO BEDTIME 09/08/20 08/31/24 release 24 hr (Depakote ER) ezetimibe 10 mg tablet (Zetia) 10 mg PO DAILY 10/24/20 08/31/24 multivitamin (Daily Vitamin 1 tab PO DAILY 10/24/20 08/31/24 Formula tablet) ranolazine 1,000 mg 1,000 mg PO BID 09/10/22 08/31/24 tablet,extended release,12 hr lisinopril 5 mg tablet 5 mg PO DAILY 12/09/22 08/31/24 pantoprazole 40 mg tablet,delayed 40 mg PO DAILY 09/12/23 08/31/24 release metoprolol tartrate 100 mg tablet 100 mg PO BID 08/31/24 08/31/24 aspirin 81 mg tablet,delayed 81 mg PO QAM 09/01/24 09/01/24 release Previous Rx's ?Medication ?Instructions ?Recorded hyoscyamine sulfate 0.125 mg 0.125 mg PO BID-QID PRN dyspepsia 06/23/23 disintegrating tablet #30 tabs nitroglycerin 0.4 mg sublingual 0.4 mg sublingual Q5M PRN chest 06/23/23 tablet (Nitrostat) pain #25 tabs ondansetron 4 mg disintegrating 4 mg PO Q8H PRN nausea and 09/02/23 tablet vomiting #20 tabs mesalamine 0.375 gram 1.5 g (4 x 0.375 gram) PO QAM #120 09/12/23 capsule,extended release 24 hr caps (Apriso) apixaban 5 mg tablet (Eliquis) 5 mg PO BID 90 days #180 tabs 01/01/24 amlodipine 10 mg tablet 10 mg PO DAILY #90 tabs 02/03/24 isosorbide mononitrate 60 mg 60 mg PO DAILY #90 tabs 04/15/24 tablet,extended release 24 hr esomeprazole magnesium 40 mg 40 mg PO QAM #30 caps 07/30/24 capsule,delayed release Allergies Allergy/AdvReac Type Severity Reaction Status Date / Time bee pollen [BEE STINGS] Allergy Severe ANAPHYLAXIS Verified 09/15/24 16:00 indomethacin [Indocin] Allergy Severe anaphylaxis Verified 09/15/24 16:00 tramadol [Ultram] Allergy Severe anaphylaxis Verified 09/15/24 16:00 fentanyl AdvReac Intermediate Anxiety Verified 09/15/24 16:00 Review of Systems Review of Systems: Yes all other systems are reviewed and are negative PMFSH Past Medical History Attestation statement: The following information was validated with the patient. Source: old records reviewed Medical History Nicotine dependence, cigarettes, uncomplicated Elevated cholesterol History of chemotherapy Obstructive sleep apnea (~2018) On anticoagulant therapy DVT (deep venous thrombosis) Essential hypertension Tubular adenoma of colon COVID-19 vaccine administered Seizures (~04/2020) GERD (gastroesophageal reflux disease) Esophagitis Atherosclerotic cardiovascular disease Psychotic disorder Syncope Headache Myocardial infarction Pacemaker (~05/2013) Tremor Brain bleed CAD (coronary artery disease) Surgical History Hx of shoulder surgery History of total left knee replacement History of ERCP History of spinal surgery History of colonoscopy (~09/2020) History of right knee surgery (~12/2013) History of total right hip replacement (~06/2012) History of cholecystectomy History of cardiac catheterization History of permanent cardiac pacemaker placement (~05/2013) History of esophagogastroduodenoscopy (EGD) (~09/2020) History of appendectomy Stented coronary artery Family History Family History Father Heavy cigarette smoker Throat cancer Mother Heart disease Social History Social History Household Members: None Household Members Other:: shares house with a friend Housing: House Are you a primary childcare center administrator to a significant other at home: No Do you presently have visiting nurse or other home services: No Alcohol intake: never Comment: resting eyes closed Patient Tobacco Use Status: Current someday Tobacco user Tobacco use type: Cigarette Years Smoked: 8 +/- Smoked in Last 30 Days: No e-Cigarette/Vaping Use: Never Used Second Hand Smoke Exposure: No Advance Directives: No Advance Directives Information Provided: No Advance Directives Date on File: 12/16/20 service: No Current occupational status: employed and retired Physical Exam ED Vital Signs: Vital Signs - 24 hr 09/15/24 15:57 09/15/24 18:12 09/15/24 18:14 Temperature 97.7 F Pulse Rate 69 64 67 Respiratory Rate 18 Blood Pressure 168/59 H 161/85 H 158/87 H Pulse Oximetry 98 Oxygen Delivery Method Room Air 09/15/24 18:16 Temperature Pulse Rate 69 Respiratory Rate Blood Pressure 150/89 H Pulse Oximetry Oxygen Delivery Method BMI result Body Mass Index 27.9 Appearance: Alert.?Oriented to person, place and time. No acute distress.?Normal affect. Eyes: Pupils equal, round and reactive to light.? EOMI. No nystagmus. ENT: Pharynx normal.?? Neck: Normal inspection.? Neck supple.??Full range of motion. No rigidity. CVS: Heart sounds normal. Normal heart rate and rhythm.? Pulses normal.?? Respiratory: No respiratory distress.? Lung sounds clear to auscultation bilaterally?? Abdomen: Soft with left lower quadrant abdominal pain/guarding. Normoactive bowel sounds. No pulsatile mass.?? Skin: Skin warm and dry.? Normal skin color.? ? Extremities: No lower extremity edema.? No calf ttp? Neuro: Moves all extremities spontaneously. Sensation intact bilaterally. CN II-XII intact. No focal neuro deficits. Ambulates with normal steady gait. Course Course Course Narrative: RME, this is a rapid medical exam performed by Elroy Savage please refer to primary provider for complete H&P- 69-year-old male presents for evaluation of left lower abdominal pain and a headache. The patient fell yesterday and struck his head on the side of the building. He is unsure how he fell but reported he lost consciousness. He was on Eliquis for AFib and history of DVT. He also has a history of coronary artery disease with stenting, the patient is status post implantable pacemaker. Plan for CT scan of the brain, labs, EKG, urinalysis. Reevaluation(s) Reevaluation #1: Patient is electing to leave against medical advice and with informed refusal. Patient was advised reasoning to have hospital admission for further workup of syncope, a full explanation of the rationale was given. The risks of leaving were explained to the patient and include, but not are not limited to, worsening of known or currently on known conditions, permanent disability, and from undiagnosed or untreated conditions. The patient has the capacity to make this decision and has the capacity to understand the clinical situation and my explanation of the risks of refusing. The patient voluntarily accepts these risks. Patient was given the opportunity to ask questions and reconsider Time: 21:01 Medications Administered Discontinued Medications Generic Name Dose Route Start Last Admin Trade Name Freq PRN Reason Stop Dose Admin Sodium Chloride 1,000 mls @ 999 mls/hr 09/15/24 18:15 09/15/24 20:56 Ns IV 09/15/24 19:15 Infused .Q1H1M CRICKET Infusion Iohexol 100 ml 09/15/24 18:55 09/15/24 18:55 Iohexol 350 Mg/Ml 100 Ml Infus..Btl IV 09/15/24 18:56 85 ml ONCE ONE Administration Morphine Sulfate 2 mg 09/15/24 18:26 09/15/24 18:30 Morphine Sulfate 2 Mg/Ml Cartridge IVPUSH 09/15/24 18:27 2 mg ONCE ONE Administration Protocol Ondansetron HCl 4 mg 09/15/24 18:12 09/15/24 18:24 Ondansetron Hcl 4 Mg/2 Ml Vial IVPUSH 09/15/24 18:13 4 mg ONCE ONE Administration Medical Decision Making Medical Decision Making [facility] Narrative: Patient is a 69-year-old male with past medical history of CAD s/p stent, PID, sick sinus syndrome with implantable pacemaker, history of atrial fibrillation/flutter and DVT anticoagulated on Eliquis, GERD, hypercholesterolemia, DARION, seizure disorder on Keppra (diagnosed 2020 admitted for syncope/seizure) who presents emergency department for evaluation after fall concerning for syncopal episode as per HPI, associated LOC. presenting with headache, nausea, left lower quadrant abdominal pain. Denies associated preceding chest pain, shortness of breath, palpitations occurred while walking outdoors, he is anticoagulated on Eliquis; lower suspicion for pulmonary embolism, aortic dissection, most recent echocardiogram in 2022, possibly valvular disease. No focal neurological deficits, diplopia, or associated headache to suggest SAH, CVA, basilar insufficiency. EKG without acute ischemic findings revealing a normal sinus rhythm with ventricular rate of 65, QTC of 440, T-wave inversion in lead V2 no ST elevations. Does have a history of seizure disorder, no reported bladder or bowel dysfunction, no postictal phase, has been compliant with Keppra, additionally incident was witnessed by bystanders there was no report of seizure-like activity. Prior to my assumption of care patient had serum labs obtained which reveals no leukocytosis, has a mild normocytic anemia not meeting transfusion criteria, no thrombocytopenia. No electrolyte derangement. No REBEKAH. Minimally elevated random glucose of 142. High sensitive troponin below detectable limits. Urinalysis without compelling evidence of urinary tract infection. Head CT without ICH, SDH, fracture, infarct. CXR without consolidation or infiltrate. On examination he does have notable left lower quadrant tenderness upon palpation and guarding, obtaining CT of the abdomen and pelvis for further evaluation, potential intra-abdominal bleeding/hematoma, negative mabel sign, negative Yates Lewis sign. Orthostatic vital signs were negative. Obtaining CT of the abdomen and pelvis for further evaluation, patient received morphine IV for pain, Zofran IV for nausea and additional 1 L normal saline IV fluid, anticipate that he may require admission for syncopal episode pending CT results Differential Diagnosis Differential Diagnoses: The differential diagnosis associated with the presentation includes (See narrative above) Admission/Observation Consideration of admission/observation: Escalation of care including admission/observation considered (See narrative above) Lab Data MDM Lab Attestation statement: I reviewed the patient's lab results. (See narrative above) 09/15/24 16:20 09/15/24 16:20 Labs: Lab Results 09/15/24 09/15/24 09/15/24 Range/Units 16:20 17:31 18:25 WBC 9.7 (4.8-10.8) X10*3/uL RBC 4.45 L (4.60-5.80) X10*6/uL Hgb 13.6 L (14.0-18.0) g/dl Hct 39.0 L (42.0-52.0) % MCV 87.6 (80.0-98.0) fL MCH 30.6 (27.0-33.0) pg MCHC 34.9 (31.0-36.0) g/dl RDW 13.0 (11.0-16.0) % Plt Count 288 (160-400) X10*3/uL MPV 8.4 L (9.4-12.4) fL Immature Gran % (Auto) 0.5 H (0.0-0.4) % Neut % (Auto) 64.0 (45-73) % Lymph % (Auto) 24.1 (20-40) % Lander % (Auto) 7.2 (2-11) % Eos % (Auto) 3.6 (0-4) % Baso % (Auto) 0.6 (0-2) % Lymph # (Auto) 2.3 (1.2-4.9) X10*3/uL Lander # (Auto) 0.7 (0.1-1.2) X10*3/uL Eos # (Auto) 0.4 (0.0-0.4) X10*3/uL Baso # (Auto) 0.1 (0.0-0.2) X10*3/uL Abs Immat Gran (auto) 0.05 H (0.00-0.03) X10*3/uL Absolute Neuts (auto) 6.2 (2.0-8.3) x10*3/uL Absolute Nucleated RBC 0.000 (0.0-0.012) X10*3/uL Nucleated RBC % (auto) 0.0 (0.0-0.2) /100WBC PT 10.4 L (10.9-12.4) SEC INR 0.9 (0.9-1.1) Sodium 140 (135-145) mmol/L Potassium 3.7 (3.3-5.1) mmol/L Chloride 106 (96-108) mmol/L Carbon Dioxide 26 (22-29) mmol/L Anion Gap 12 (12-20) BUN 19 H (9-16) mg/dL Creatinine 0.76 (0.5-1.4) mg/dL Estim Creat Clear Calc 102.6 Estimated GFR > 60 Random Glucose 142 H (60-115) mg/dL Calcium 8.8 (8.4-10.2) mg/dL Total Bilirubin 0.2 (0.0-1.0) mg/dL AST 19 (5-37) U/L ALT 9 (0-40) U/L Alkaline Phosphatase 86 (39-117) U/L Troponin I High Sens < 2.7 (<3.5-35.0) ng/L Total Protein 6.8 (6.5-8.0) g/dL Albumin 3.9 (3.5-5.0) g/dL Lipase 15 (8-78) U/L Urine Color Yellow Urine Appearance Clear Urine pH 5.5 (5.0-9.0) Ur Specific Otter 1.020 (1.005-1.025) Urine Protein Negative (Neg-Trace) mg/dL Urine Glucose (UA) Negative (Negative) mg/dL Urine Ketones Negative (Negative) mg/dL Urine Blood Negative (Negative) Urine Nitrite Negative (Negative) Ur Leukocyte Esterase Trace H (Negative) Urine RBC 0-2 (0-2) /HPF Urine WBC 0-5 (0-5) /HPF Ur Squamous Epith Cells 0-2 (0-2) /HPF Urine Bacteria None Seen (None Seen) Hyaline Casts 0-2 (0-2) /LPF Independent Interpretation I performed an independent interpretation of an: EKG (See narrative above), Plain X-Ray (See narrative above) and CT Scan (See narrative above) Radiology Impression Discussion of test interpretation with radiology: I have reviewed the radiologist's reading. Radiologist Impression: CT/CT head/brain wo IV con IMPRESSION: No acute intracranial abnormality. XR/XR chest 2V IMPRESSION: No active pulmonary disease. No fractures evident. CT abdomen and pelvis with contrast Comparison: CT/SR - CT ABDOMEN PELVIS W IV CON - 08/04/24 09:23 EST Findings: Focal area of hyper lucency in the medial right lung base, similar to prior. Lungs are clear. Intrahepatic and extrahepatic mild biliary dilatation is present, Unchanged from prior. Gallbladder is absent. Moderate calcified and noncalcified plaque of the abdominal aorta. Spleen, adrenal glands, pancreas are unremarkable. Kidneys enhance symmetrically and there is no hydronephrosis. Circumferential mild wall thickening in the hepatic flexure, series 7, image 108, which is new in comparison to prior. Large volume of fecal loading within the colon. No bowel obstruction, pneumoperitoneum, or pneumatosis. Appendix not visualized. Urinary bladder is normal. Prostatomegaly present. There is a right hip total arthroplasty in anatomic alignment. No lytic or blastic bone lesions. Degenerative changes of the lumbar spine are present. The bones are intact. IMPRESSION: 1. Circumferential area of mild wall thickening in the hepatic flexure of the colon is most likely a focal area of bowel contraction, less likely colonic mass or malignancy, given the rapidity of onset from prior. 2. Large amount of fecal loading within the colon. External Record Review External record reviewed: Outpatient record Chronic Conditions Patient?s care impacted by: Other (See narrative above) Discharge Plan Discharge Clinical Impression: Syncope, Concussion Patient Disposition: Left Against Medical Advice Instructions: Syncope (ED), Concussion (ED) Additional Instructions: You are electing to leave against medical advice, as discussed it was recommended that you be admitted into the hospital for further evaluation of your syncopal episode you however have declined. There is potential for life-threatening causes of your syncopal episode in you have verbalized understanding of this. You should return with any new or worsening symptoms or concerns. Please be certain to follow up with your primary care doctor. Prescriptions: No Action hyoscyamine sulfate 0.125 mg tablet,disintegrating 0.125 mg PO BID-QID PRN (Reason: dyspepsia) Qty: 30 0RF nitroglycerin [Nitrostat] 0.4 mg tablet, sublingual 0.4 mg sublingual Q5M PRN (Reason: chest pain) Qty: 25 2RF Rx Instructions: Do not exceed 3 doses per chest pain episode amlodipine 10 mg tablet 10 mg PO DAILY Qty: 90 3RF isosorbide mononitrate 60 mg tablet extended release 24 hr 60 mg PO DAILY Qty: 90 3RF esomeprazole magnesium 40 mg capsule,delayed release(DR/EC) 40 mg PO QAM Qty: 30 3RF rosuvastatin [Crestor] 40 mg tablet 40 mg PO BEDTIME oxycodone 10 mg Tablet 10 mg PO Q5H PRN (Reason: Moderate Pain (Scale Score 5-6)) divalproex [Depakote ER] 250 mg tablet extended release 24 hr 250 mg PO BEDTIME ranolazine 1,000 mg tablet extended release 12 hr 1,000 mg PO BID ondansetron 4 mg tablet,disintegrating 4 mg PO Q8H PRN (Reason: nausea and vomiting) Qty: 20 0RF metoprolol tartrate 100 mg tablet 100 mg PO BID aspirin 81 mg tablet,delayed release (DR/EC) 81 mg PO QAM ezetimibe [Zetia] 10 mg tablet 10 mg PO DAILY multivitamin [Daily Vitamin Formula] Tablet 1 tab PO DAILY lisinopril 5 mg tablet 5 mg PO DAILY pantoprazole 40 mg tablet,delayed release (DR/EC) 40 mg PO DAILY mesalamine [Apriso] 0.375 gram capsule,extended release 24hr 1.5 g PO QAM Qty: 120 0RF Eliquis 5 mg tablet 5 mg PO BID 90 Days Qty: 180 3RF Stand Alone Forms: Against Medical Advice Print Language: Spanish
[2024-09-15 15:57] VITALS: BP 168/59; PULSE 69; RESP 18; TEMP 36.5; O2SAT 98; BMI 27.9
--- NOTE | 2024-09-15 15:58 | ECG_ITS ---
Test Reason : CHEST PAIN/DIZZY Blood Pressure : */* mmHG Vent. Rate : 65 BPM Atrial Rate : 65 BPM P-R Int : 184 ms QRS Dur : 104 ms QT Int : 424 ms P-R-T Axes : 61 -9 23 degrees QTcB Int : 440 ms Normal sinus rhythm Cannot rule out Anterior infarct , age undetermined Abnormal ECG When compared with ECG of 25-Apr-2024 12:18, Sinus rhythm has replaced Electronic atrial pacemaker Minimal criteria for Anterior infarct are now Present Inverted T waves have replaced nonspecific T wave abnormality in Anterior leads Referred By: Arsh Savage Electronically Signed By: Jeffy Ballard
[2024-09-15 16:25] LABS: MANUAL DIFF FLAG NO
[2024-09-15 16:27] LABS: Basophils Absolute Auto 0.1 X10*3/uL (0.0-0.2); Basophils Percent Auto 0.6 % (0-2); Eosinophils Absolute Auto 0.4 X10*3/uL (0.0-0.4); Eosinophils Percent Auto 3.6 % (0-4); Hemoglobin 13.6 g/dl (14.0-18.0); Imm Gran Abs Auto 0.05 X10*3/uL (0.00-0.03); Imm Gran Pct Auto 0.5 % (0.0-0.4); Lymphocytes Absolute Auto 2.3 X10*3/uL (1.2-4.9); Lymphocytes Percent Auto 24.1 % (20-40); Mean Corpuscular HGB Conc 34.9 g/dl (31.0-36.0); Mean Corpuscular Hemoglobin 30.6 pg (27.0-33.0); Mean Corpuscular Volume 87.6 fL (80.0-98.0); Mean Platelet Volume 8.4 fL (9.4-12.4); Monocytes Absolute Auto 0.7 X10*3/uL (0.1-1.2); Monocytes Percent Auto 7.2 % (2-11); Neutrophils Absolute Auto 6.2 x10*3/uL (2.0-8.3); Platelet Count 288 X10*3/uL (160-400); Red Blood Count 4.45 X10*6/uL (4.60-5.80); White Blood Count 9.7 X10*3/uL (4.8-10.8)
[2024-09-15 16:48] LABS: Alanine Aminotransferase 9 U/L (0-40); Albumin Level 3.9 g/dL (3.5-5.0); Anion Gap 12 (12-20); Aspartate Amino Transferase 19 U/L (5-37); Bilirubin Total 0.2 mg/dL (0.0-1.0); Blood Urea Nitrogen 19 mg/dL (9-16); Calcium 8.8 mg/dL (8.4-10.2); Carbon Dioxide 26 mmol/L (22-29); Chloride 106 mmol/L (96-108); Creatinine Clr Calc Pharmacy 102.6; Estimated Glomerular Filt Rate > 60; Glucose Random 142 mg/dL (60-115); Lipase 15 U/L (8-78); Potassium 3.7 mmol/L (3.3-5.1); Sodium 140 mmol/L (135-145); Total Protein 6.8 g/dL (6.5-8.0); Troponin-I High Sensitivity < 2.7 ng/L (<3.5-35.0)
[2024-09-15 16:53] LABS: Alkaline Phosphatase 86 U/L (39-117)
--- NOTE | 2024-09-15 17:24 | PC.NURSE ---
pt states that he fell at work yesterday and hit his head on a hydrant. he sates he LOC for a few seconds. On eliquis. 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 after the fall pt went home and was a little nauseous and had a headache. today he says that his abd on his left side is very painful which is why he came in to the ED. pt left leg has an abrasion. 20g IV on left IV placed
[2024-09-15 17:41] LABS: INTERNATIONAL NORM RATIO 0.9 (0.9-1.1); Prothrombin Time 10.4 SEC (10.9-12.4)
--- OUTSIDE RECORDS SUMMARY | 2024-09-15 17:57 | XMS_ITS | Encounter Summary ---
Author Organization [employer] Address [address] [place] [address] 7 [place] [address] Care Team Providers Care Lead Web Application Developer Name Role Phone Name, Memo ARREDONDO Primary Care Provider [phone] Reason for Visit * Reason Onset Date Comments Error 03/25/2024 Encounter Details Date Type Department Care Team ([facility] Contact Info) Description 03/25/2024 Telephone [facility] [address] [place], [place] [phone] Name, MD Memo [address] [place] [address] Error Social History Tobacco Use Types Packs/Day [...] Care Team (Late st Contact Info) Description 10/22/2024 11:00 AM EDT Telemedicine [facility] [address] [place] [address] 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 RN 11/11/2024 9:00 AM EDT Office Visit [facility] [address] [place] [address] Name, MD Memo [address] [place] [address] documented as of this encounter Visit Diagnoses Not on filedocumented in this encounter Additional Health Concerns Assessment Noted Time PHQ-9 Depression Total Score: 0 07/17/19 24 10:49 AM EST documented as of this encounter Care Teams Lead Web Application Developer Relationship Specialty Start Date End Date NameMemo MD [address] [place] [address] PCP - General Family Medicine 08/30/15 documented as of this encounter
--- OUTSIDE RECORDS SUMMARY | 2024-09-15 17:57 | XMS_ITS | Encounter Summary ---
Author Organization [employer] Address [address] [facility] 7t [place] [address] Care Team Providers Care Maintenance Machine Repairer Name Role Phone Name, Memo ARREDONDO Primary Care Provider [phone] Reason for Visit * Reason Onset Date Comments triage 06/06/2022 Encounter Details Date Type Department Care Team ([facility] st Contact Info) Description 06/06/2022 Telephone [facility] [address] [place] [address] Name, MD Memo [address] [place] [address] triage Social History Tobacco Use Types Packs/Day [...] visit with PRIYANKA Schwab at 1115am . [facility] unable to schedule a tele visit [...] Info) Description 10/22/2024 11:00 AM EDT Telemedicine [facility] [address] [place] [address] 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 RN 11/11/2024 9:00 AM EDT Office Visit [facility] [address] [place] [phone] Name, MD Memo [address] [place] [address] documented as of this encounter Visit Diagnoses Not on filedocumented in this encounter Care Teams Maintenance Machine Repairer Relationship Specialty Start Date End Date NameMemo MD [address] [place] [address] PCP - General Family Medicine 08/30/15 documented as of this encounter
--- OUTSIDE RECORDS SUMMARY | 2024-09-15 17:57 | XMS_ITS | Encounter Summary ---
Author Organization [employer] Address [address] [place] [address] 7t [place] [address] Care Team Providers Care Veterinary Virologist Name Role Phone Name, Memo ARREDONDO Primary Care Provider [phone] Reason for Visit * Reason Onset Date Comments Med Refill 09/02/2024 Patient is reque sting med refill for oxycodone. Patient stated he doesn't have any for tomorrow Encounter Details Date Type Department Care Team ([facility] st Contact Info) Description 09/02/2024 Telephone [facility] [address] [place], [place] [phone] Name, MD Memo [address] [place] [address] Med Refill (Patient is requesting med refill for oxycodone. Patient stated he doesn't have any for tomorrow ) Social History Tobacco Use Types Packs/Day Years [...] encounter Miscellaneous Notes * Telephone Encounter - Digna Alvarado - 09/02/2024 2:49 PM EDT Patient is requesting med refill for oxycodone. Patient stated he doesn't have any for tomorrow documented in this encounter Plan of Treatment Upcoming Encounters Date Type Department Care Team (Late st Contact Info) Description 10/22/2024 11:00 AM EDT Telemedicine [facility]INE [address] [place] [address] [phone] 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 RN 11/11/2024 9:00 AM EDT Office Visit [facility] [address] [place] [address] Name, MD Memo [address] [place] [address] documented as of this encounter Visit Diagnoses Not on filedocumented in this encounter Additional Health Concerns Assessment Noted Time PHQ-9 Depression Total Score: 0 07/17/19 24 10:49 AM EST documented as of this encounter Care Teams Veterinary Virologist Relationship Specialty Start Date End Date Name, MD Memo [address] [place] [address] PCP - General Family Medicine 08/30/15 documented as of this encounter
--- OUTSIDE RECORDS SUMMARY | 2024-09-15 17:57 | XMS_ITS | Encounter Summary ---
Author Organization [employer] Address [address] [facility] 7t [place] [address] Care Team Providers Care Call Center Analyst Name Role Phone Name, Memo ARREDONDO Primary Care Provider Reason for Visit * Reason Onset Date Comments triage 06/05/2022 Encounter Details Date Type Department Care Team ([facility] st Contact Info) Description 06/05/2022 Telephone [facility] [address] [place] [address] Name, MD Memo [address] [place] [address] triage Social History Tobacco Use Types Packs/Day [...] Miscellaneous Notes * Telephone Encounter - Lindsey Bursn RN - 06/05/2022 2:55 PM EST Triage [...] Info) Description 10/22/2024 11:00 AM EDT Telemedicine [address] [address] 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 RN 11/11/2024 9:00 AM EDT Office Visit [facility] [address] [place] [phone] Name, MD Memo [address] [place] [phone] documented as of this encounter Visit Diagnoses Not on filedocumented in this encounter Care Teams Call Center Analyst Relationship Specialty Start Date End Date Name, MD Memo [address] [place] [address] PCP - General Family Medicine 08/30/15 documented as of this encounter
--- OUTSIDE RECORDS SUMMARY | 2024-09-15 17:57 | XMS_ITS | Encounter Summary ---
Author Organization [employer] Address [address] [place] [address] 7 [place] [address] Care Team Providers Care Gauger Chief Delivery Name Role Phone Name, Memo ARREDONDO Primary Care Provider [phone] Reason for Visit * Reason Comments Med Refill Encounter Details Date Type Department Care Team ([facility] st Contact Info) Description 10/25/2022 Refill [facility] [address] [place], [place] [phone] Name, MD Memo [address] [place] [address] Chronic pain syndrome Social History Tobacco Use [...] Info) Description 10/22/2024 11:00 AM EDT Telemedicine [address] [address] 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 RN 11/11/2024 9:00 AM EDT Office Visit [address] [address] Name, MD Memo [address] [place] [phone] documented as of this encounter Visit Diagnoses Diagnosis Chronic pain syndrome documented in this encounter Additional Health Concerns Assessment Noted Time PHQ-9 Depression Total Score: 9 06/27/19 23 10:17 AM EST documented as of this encounter Care Teams Gauger Chief Delivery Relationship Specialty Start Date End Date NameMemo MD [address] [place] [phone] PCP - General Family Medicine 08/30/15 documented as of this encounter
--- OUTSIDE RECORDS SUMMARY | 2024-09-15 17:57 | XMS_ITS | Encounter Summary ---
Author Organization [employer] Address [address] [place] [address] 7 [place] [address] Care Team Providers Care Unit Tender Name Role Phone Name, Memo ARREDONDO Primary Care Provider [phone] Reason for Visit * Reason Comments Med Refill Encounter Details Date Type Department Care Team ([facility] st Contact Info) Description 03/23/2024 Refill [facility] 230 [place], [place] [phone] Name, MD Memo [address] [place] [address] Social History Tobacco Use Types Packs/Day Years [...] Info) Description 10/22/2024 11:00 AM EDT Telemedicine [facility] [address] [place] [phone] 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 RN 11/11/2024 9:00 AM EDT Office Visit [facility] [address] [place] [address] Name, MD Memo [address] [place] [address] documented as of this encounter Visit Diagnoses Not on filedocumented in this encounter Additional Health Concerns Assessment Noted Time PHQ-9 Depression Total Score: 0 07/17/19 24 10:49 AM EST documented as of this encounter Care Teams Unit Tender Relationship Specialty Start Date End Date NameMemo MD [address] [place] [address] PCP - General Family Medicine 08/30/15 documented as of this encounter
--- OUTSIDE RECORDS SUMMARY | 2024-09-15 17:57 | XMS_ITS | Encounter Summary ---
Author Organization [employer] Address [address] [place] [address] 7t [place] [address] Care Team Providers Care Thoracic Medicine Physician Name Role Phone Name, Memo ARREDONDO Primary Care Provider [phone] Encounter Details Date Type Department Care Team ([facility] Contact Info) Description 09/15/2024 Orders Only GENERIC EXTERNAL DATA DEPARTMENT Provider, [...] Info) Description 10/22/2024 11:00 AM EDT Telemedicine [facility] MEDICINE [address] [place] [address] 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 RN 11/11/2024 9:00 AM EDT Office Visit [facility]INE [address] [place] [address] [phone] Name, MD Memo [address] [place] [phone] documented as of this encounter Procedures Procedure Name Priority Date/Time Associated Diagnosis Comments PROTHROMBIN TIME-INR Routine 09/15/2024 5:31 PM EDT HIGH SENSITIVITY TROPONIN I Routine 09/15/2024 4:20 PM EDT CBC WITH AUTO DIFFERENTIAL Routine 09/15/2024 4:20 PM EDT LIPASE Routine 09/15/2024 4:20 PM EDT COMPREHENSIVE METABOLIC PANEL Routine 09/15/2024 4:20 PM EDT XR CHEST 2 VIEWS Routine 09/15/2024 3:59 PM EDT documented in this encounter Results * (ABNORMAL) Prothrombin Time-INR (09/15/2024 5:31 PM EDT) Prothrombin Time 10.4(L) 10.9 - 12.4 SEC [facility] INTERNATIONAL NORM RATIO 0.9 0.9 - 1.1 [facility] Comment:INTERNATIONAL NORMAL IZED RATIO (INR) REFERENCE RANGES Reference RangeFor patients not on anticoagulant therapy: 0.9 - 1.1INR ranges for oral anticoagulanttherapy:For prevention and treatment of venous thrombosis and pulmonary embolism: 2.0 - 3.0For acute myocardial infarction with aspirin therapy: 2.0 - 3.0For acute myocardial infarction without aspirin therapy: 3.0 - 4.0For patients with mechanical prosthetic heart valves: 2.5 - 3.5 09/15/2024 5:31 PM EDT 09/15/2024 5:33 PM EDT Generic External Data Provider LAB BLOOD ORDERAB LES Final Result Performing Organization Address [facility]/ZIP Co de Phone Number [facility] [address] [place] [phone] * High Sensitivity Troponin I (09/15/2024 4:20 PM EDT) [facility] TROPONIN I HIGH SENSITIVITY <2.7 <3.5 - 35.0 ng/L [facility] Comment:The Paula high sens itivity Troponin-I results should beused in conjunction with other diagnostic information suchas ECG, clinical observations and information, and patientsymptoms to aid in the diagnosis of [place]. 09/15/2024 4:20 PM EDT 09/15/2024 4:24 PM EDT Generic External Data Provider LAB BLOOD ORDERAB LES Final Result Performing Organization Address [facility]/ZIP Co de Phone Number [facility] [address] [place] [phone] * Lipase (09/15/2024 4:20 PM EDT) Pathologist [facility] Lipase 15 8 - 78 U/L [facility] 09/15/2024 4:20 PM EDT 09/15/2024 4:24 PM EDT us Generic External Data Provider LAB BLOOD ORDERAB LES Final Result [facility] [address] [place] [address] [phone] * (ABNORMAL) Comprehensive Metabolic Panel (09/15/2024 4:20 PM EDT) Sodium 140 135 - 145 mmol/L [facility] Potassium 3.7 3.3 - 5.1 mmol/L [facility] Chloride 106 96 - 108 mmol/L [facility] Carbon Dioxide 26 22 - 29 mmol/L [facility] Anion Gap 12 12 - 20 [facility] Urea Nitrogen (BUN) 19(H) 9 - 16 mg/dL [facility] Creatinine, Serum 0.76 0.5 - 1.4 mg/dL [facility] Creatinine Clr Calc Pharmacy 102.6 [facility] Comment:eGFR (calculated fro m the MDRD study equation) and eCrCl(calculated from the Cockcroft-Gault equation) are based ondifferent parameters and may not yield comparable results.If eCrCl result is absurd, please check patient'sheight/weight. Estimated Glomerular Filt Rate >60 [facility] Comment:Chronic Kidney Disea se: Estimated GFR < 60 mL/min/1.07j1Sylegt Kidney Disease: Estimated GFR < 15 mL/min/1.73m2 Glucose 142(H) 60 - 115 mg/dL [facility] Calcium 8.8 8.4 - 10.2 mg/dL [facility] Bilirubin, Total 0.2 0.0 - 1.0 mg/dL [facility] Aspartate Amino Transferase 19 5 - 37 U/L [facility] Alanine Aminotransferase 9 0 - 40 U/L [facility] Total Protein 6.8 6.5 - 8.0 g/dL [facility] Albumin Level 3.9 3.5 - 5.0 g/dL [facility] Alkaline Phosphatase 86 39 - 117 U/L [facility] 09/15/2024 4:20 PM EDT 09/15/2024 4:24 PM EDT us Generic External Data Provider LAB BLOOD ORDERAB LES Final Result [facility] [address] [place] [phone] [phone] * (ABNORMAL) CBC auto differential (09/15/2024 4:20 PM EDT) White Blood Count 9.7 4.8 - 10.8 X10*3/uL [facility] Red Blood Count 4.45(L) 4.60 - 5.80 X10*6/uL [facility] Hemoglobin 13.6(L) 14.0 - 18.0 g/dl [facility] Hematocrit 39.0(L) 42.0 - 52.0 % [facility] Mean Corpuscular Volume 87.6 80.0 - 98.0 fL [facility] Mean Corpuscular Hemoglobin 30.6 27.0 - 33.0 pg [facility] Mean Corpuscular HGB Conc 34.9 31.0 - 36.0 g/dl [facility] Red Cell Distribution Width 13.0 11.0 - 16.0 % [facility] Platelet Count 288 160 - 400 X10*3/uL [facility] Mean Platelet Volume 8.4(L) 9.4 - 12.4 fL [facility] Neutrophils Percent Auto 64.0 45 - 73 % [facility] Imm Gran Pct Auto 0.5(H) 0.0 - 0.4 % [facility] Lymphocytes Percent Auto 24.1 20 - 40 % [facility] Monocytes Percent Auto 7.2 2 - 11 % [facility] Eosinophils Percent Auto 3.6 0 - 4 % [facility] Basophils Percent Auto 0.6 0 - 2 % [facility] NRBC Pct Auto 0.0 0.0 - 0.2 /100WBC [facility] Neutrophils Absolute Auto 6.2 2.0 - 8.3 x10*3/uL [facility] Imm Gran Abs Auto 0.05(H) 0.00 - 0.03 X10*3/uL [facility] Lymphocytes Absolute Auto 2.3 1.2 - 4.9 X10*3/uL [facility] Monocytes Absolute Auto 0.7 0.1 - 1.2 X10*3/uL [facility] Eosinophils Absolute Auto 0.4 0.0 - 0.4 X10*3/uL [facility] Basophils Absolute Auto 0.1 0.0 - 0.2 X10*3/uL [facility] NRBC Abs Auto 0.000 0.0 - 0.012 X10*3/uL [facility] 09/15/2024 4:20 PM EDT 09/15/2024 4:24 PM EDT us Generic External Data Provider LAB BLOOD ORDERAB LES Final Result Performing Organization Address City/State/[facility] Co de Phone Number [facility] [address] [place] [address] [phone] * XR Chest 2 Views (09/15/2024 3:59 PM EDT) Anatomical Region Laterality Modality Chest Radiographic Nilda ging 09/15/2024 3:59 PM EDT Narrative 09/15/2024 4:52 PM EDT ? [facility] ?[address] [facility] ?[place] [address] ?XRay Report ? Signed ? Patient: Saeed,Peter ?MR#: [id number] ?? 5 ? : 1955 ?Acct:[id number] ? Age/Sex: 69 / M ?ADM Date: 04/09/25 ? Loc: HO.ED ? Attending Dr: ? Ordering Physician: O'Stephon,Arsh ?? Date of Service: 09/15/24 ?? Procedure(s): XR chest 2V ?? Accession Number(s): [id number] ? cc: Name,Memo ARREDONDO; Arsh Savage ? EXAMINATION: ?? XR CHEST ? CLINICAL INFORMATION: ?? fall, left sided pain ? COMPARISON: ?? 04/25/2024. ? TECHNIQUE: ?? 2 views of the chest were obtained. ? FINDINGS: ?? Dual lead left-sided pacemaker device with leads terminating in the ?? right atrium and right ventricle. ? The cardiac, hilar, and mediastinal contours are normal. Mild aortic ?? calcification. ? The lungs are clear bilaterally. There is no pneumothorax or pleural ?? effusion. ? There is no focal osseous or soft tissue abnormality. No definite ?? fracture seen. Degenerative changes throughout the spine. ? XR/XR chest 2V ?? IMPRESSION: ?? No active pulmonary disease. No fractures evident. ? Electronically signed by: ??Vick Koo MD ??09/15/2024 04:49 PM EDT RP ? Dictated By: ?Vick Koo MD ? Signed By: ?<Electronically signed by Vick Koo MD in OV> ?09/15/24 1649 ? DD/ 1559 ? TD/TT: 09/15/24 1637 ? Unhairer: ? Procedure Note Gage, Tacos - 09/15/[address] [address] XRay Report Signed Patient: Myles TiptonMR#: [id number] 5 : 3Acct:[id number] Age/Sex: 69 / MADM Date: 09/15/24 Loc: HO.ED Attending Dr: Ordering Physician: Arsh Savage Date of Service: 09/15/24 Procedure(s): XR chest 2V Accession Number(s): [id number] cc: NameMemo MD; Arsh Savage EXAMINATION: XR CHEST CLINICAL INFORMATION: fall, left sided pain COMPARISON: 04/25/2024. TECHNIQUE: 2 views of the chest were obtained. FINDINGS: Dual lead left-sided pacemaker device with leads terminating in the right atrium and right ventricle. The cardiac, hilar, and mediastinal contours are normal. Mild aortic calcification. The lungs are clear bilaterally. There is no pneumothorax or pleural effusion. There is no focal osseous or soft tissue abnormality. No definite fracture seen. Degenerative changes throughout the spine. XR/XR chest 2V IMPRESSION: No active pulmonary disease. No fractures evident. Electronically signed by: Vick Koo MD 09/15/2024 04:49 PM EDT Dictated By: Vick Koo MD Signed By: <Electronically signed by Vick Koo MD in OV> 09/15/24 1649 DD/ 1559 TD/TT: 09/15/24 1637 Unhairer: [facility] External Provider IMG XR PROCEDURES Final Result documented in this encounter Visit Diagnoses Not on filedocumented in this encounter Additional Health Concerns Assessment Noted Time PHQ-9 Depression Total Score: 0 07/17/19 24 10:49 AM EST documented as of this encounter Care Teams Thoracic Medicine Physician Relationship Specialty Start Date End Date Name, MD Memo [address] [place] [address] PCP - General Family Medicine 08/30/15 documented as of this encounter
--- OUTSIDE RECORDS SUMMARY | 2024-09-15 17:57 | XMS_ITS | Clinical Summary ---
Author Organization [employer] Address [address] [place] [address] 7 [place] [address] Care Team Providers Care Healthcare Prof Name Role Phone Name, Memo ARREDONDO Primary Care Provider [phone] Allergies Active Allergy Reactions Criticality Noted Date [...] AND IN THE EVENING 180 tablet 1 023 Active isosorbide mononitrate ER (Imdur) 30 MG 24 hr tabletIndicatio ns:Essential hypertension Take 1 tablet (30 mg) by mouth in the morning. Do not crush or chew. 90 tablet 024 Active mesalamine ER (Apriso) 0.375 g 24 hr capsule TAKE 4 CAPSULES BY MOUTH EVERY MORNING 024 Active lisinopril 5 MG tablet TAKE 1 TABLET BY MOUTH EVERY MORNING 30 tablet 11 024 Active Eliquis 5 MG tabletIndicatio ns:Deep vein thrombosis (DVT) of proximal lower extremity, unspecified chronicity, unspecified laterality (CMS/HCC) TAKE 1 TABLET BY MOUTH TWICE DAILY IN THE MORNING AND IN THE EVENING 60 tablet 5 024 Active nicotine (Nicoderm CQ) 21 MG/24HR patch Place 1 patch on the skin 1 (one) time each day at the same time. 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 (CMS/HCC) PLACE 1 TABLET UNDER THE TONGUE EVERY 5 MINUTES IF NEEDED FOR CHEST PAIN 90 tablet 2 024 Active divalproex (Depakote ER) 250 MG 24 hr tablet TAKE 1 TABLET BY MOUTH AT BEDTIME 30 tablet 5 024 Active Aspirin Low Dose 81 MG EC tabletIndicatio ns:Coronary artery disease involving [place] heart without angina pectoris, unspecified vessel or lesion type TAKE 1 TABLET BY MOUTH EVERY MORNING 90 tablet 1 024 Active Multiple Vitamin (One-Daily Multi-Vitamin) tablet TAKE 1 TABLET BY MOUTH EVERY MORNING 90 tablet 1 024 Active ezetimibe (Zetia) 10 MG tablet TAKE 1 TABLET BY MOUTH EVERY EVENING 90 tablet 025 Active rosuvastatin (Crestor) 40 MG tablet TAKE 1 TABLET BY MOUTH EVERY EVENING 90 tablet 025 Active cyclobenzaprine (Flexeril) 10 MG tabletIndicatio ns:Choking, subsequent encounter TAKE 1 TABLET BY MOUTH TWICE A DAY 60 tablet 025 Active oxyCODONE (Roxicodone) 10 MG immediate release tabletIndicatio ns:Chronic pain syndrome Take 1 tablet (10 mg) by mouth See administration instructions. One tablet every 5 to 6 hours as needed for pain. Do not start before September 03, 2024. 140 tablet 025 Active ranolazine (Ranexa) 1000 MG 12 hr tablet TAKE 1 TABLET BY MOUTH TWICE DAILY IN THE MORNING AND IN THE EVENING 180 tablet 2 Active ranolazine (Ranexa) 1000 MG 12 hr tablet TAKE 1 TABLET BY MOUTH TWICE DAILY IN THE MORNING AND IN THE EVENING 180 tablet 2 024 2024 Discontinued cyclobenzaprine (Flexeril) 10 MG tabletIndicatio ns:Choking, subsequent encounter TAKE 1 TABLET BY MOUTH TWICE A DAY 60 tablet 04/27/ 024 2024 Discontinued(R eorder (will not trigger notification to Pharmacy)) oxyCODONE (Roxicodone) 10 MG immediate release tabletIndicatio ns:Chronic pain syndrome Take 1 tablet (10 mg) by mouth See administration instructions. One tablet every 5 to 6 hours as needed for pain. 140 tablet 025 2024 Discontinued(R eorder (will [...] -advised foot exercises -tylenol prn -already saw staffing mgr few days ago-states had foot XR -per [...] right wrist with recent prednisone tx, to 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 per [facility] Primary localized [...] he will try to readdress Atherosclerosis of [place] co ronary artery of [place] heart with stable angina pectoris 02/24/2018 Overview [...] artery disease of n ative artery of [place] heart with stable angina pectoris 09/04/2015 Radicular [...] 01/24/2015 Coronary artery stenosis 07/13/2014 Overview (05/14/2022): [place] Coronary Artery Stenosis Benign essential hypertension 07/13/2014 [...] Encounters Date Type Department Care Team Description 09/15/2024 Orders Only GENERIC EXTERNAL DATA DEPARTMENT Provider, Generic External Data 09/02/2024 Orders Only GENERIC EXTERNAL DATA DEPARTMENT Provider, Generic External Data 09/02/2024 Refill [facility] [address] [place] [address] Elaine Burden RN Chronic pain syndrome 09/02/2024 Telephone [facility] [address] [place] [address] NameMemo MD Med Refill (Patient is requesting med refill for oxycodone. Patient stated he doesn't have any for tomorrow ) 09/01/2024 Refill [facility] [address] [place] [address] Memo Alex MD 08/30/2024 Refill [facility] [address] [place] [address] NameMemo MD Chronic pain syndrome 08/27/2024 Refill [facility] [address] [place] [address] Name, MD Memo Choking, subsequent encounter 08/20/2024 Population Health Risk Score [facility] [address] [phone] Provider, Population Health Generic 08/09/2024 Telephone [facility] [address] [place] [address] Allison Powers MA September recalls 08/06/2024 10:00 AM EST Telemedicine [facility] [address] [place] [address] 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, 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 08/06/2024 Refill [facility] [address] [facility] [place] [address] Shahla Wetson, fertilizer supervisor pain syndrome 08/06/2024 Travel 07/11/2024 Refill [facility] [address] [facility] [place] [address] Camille Alexandra NP 07/09/2024 Refill [facility] [address] [facility] [place] [address] Memo Alex MD Chronic pain syndrome 07/08/2024 Orders Only GENERIC EXTERNAL DATA DEPARTMENT Provider, Generic External Data 07/08/2024 Telephone [facility] [address] [facility] [place] [place] [address] Elisa Mercedes RN 07/07/2024 3:30 PM EST Office Visit [facility] [address] [place] [address] NameMemo MD Abdominal pain, LLQ (Primary Dx) from Last 3 Months Immunizations Name Administration [...] Info) Description 10/22/2024 11:00 AM EDT Telemedicine [facility] [address] [place] [address] 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 RN 11/11/2024 9:00 AM EDT Office Visit [facility] [address] [place] [address] Name, MD Memo [address] [place] [address] Health Maintenance Due Date Last Done Comments CT Colonography 1955 FIT DNA/Cologuard 1955 FIT 1955 FOBT 1955 Sigmoidoscopy 1955 RSV Patients and Patients Aged 60 years or older (1 - Risk 60-74 years 1-dose series) 2013 Depression Screening 07/17/2024 07/17/2023, 07/17/19 SDOH Screening 07/17/2024 07/17/2023 Alcohol/Substance Use Screening 04/12/2025 04/12/2024 Tobacco Screening 07/07/2025 07/07/2024 Colonoscopy 09/03/2027 03/04/2023 Colorectal Cancer Screening 09/03/2027 Lipid Panel 01/01/2029 01/02/2024, 02/0 06/2023, 01/17/2022, [...] patient's age to complete this topic Hepatitis A Vaccines Aged Out No long er eligible [...] TROPONIN I Routine 09/15/2024 4:20 PM EDT LIPASE Routine 09/15/2024 4:20 PM EDT COMPREHENSIVE METABOLIC PANEL Routine 09/15/2024 4:20 PM EDT CBC WITH AUTO DIFFERENTIAL Routine 09/15/2024 4:20 PM EDT XR CHEST 2 VIEWS Routine 09/15/2024 3:[address] HEAD WO CONTRAST Routine 09/15/2024 3 :57 PM EDT HEMATOXYLIN AND EOSIN STAIN Routine 09/02/2024 7:[address] ABDOMEN PELVIS W CONTRAST Routine 08/04/2024 12:57 PM EST Abdominal pain, LLQ CT ABDOMEN PELVIS W CONTRAST Routine 07/08/2024 [...] Encounter for screening for other viral diseases COLONOSCOPY Routine 03/04/2023 from Last 3 Months or Most Recently Relevant to Health Maintenance Results * (ABNORMAL) Prothrombin Time-INR (09/15/2024 5:31 PM EDT) Prothrombin Time 10.4(L) 10.9 - 12.4 SEC [facility] INTERNATIONAL NORM RATIO 0.9 0.9 - 1.1 [facility] Comment:INTERNATIONAL NORMAL IZED RATIO (INR) REFERENCE [...] 5:31 PM EDT 09/15/2024 5:33 PM EDT us Generic External Data Provider LAB BLOOD ORDERAB LES Final Result [facility] [address] [place] [phone] * High Sensitivity Troponin I (09/15/2024 4:20 PM EDT) TROPONIN I HIGH SENSITIVITY <2.7 <3.5 - 35.0 ng/L [facility] Comment:The Paula high sens itivity Troponin-I results should beused in conjunction with other diagnostic information suchas ECG, clinical observations and information, and patientsymptoms to aid in the diagnosis of [place]. 09/15/2024 4:20 PM EDT 09/15/2024 4:24 PM EDT us Generic External Data Provider LAB BLOOD ORDERAB LES Final Result [facility] [address] [place], [place] [phone] * (ABNORMAL) CBC auto differential (09/15/2024 4:20 PM EDT) Only the most recent of3 resultswithin the time period is included. White Blood Count 9.7 4.8 - 10.8 X10*3/uL [facility] Red Blood Count 4.45(L) 4.60 - 5.80 X10*6/uL [facility] Hemoglobin 13.6(L) 14.0 - 18.0 g/dl [facility] Hematocrit 39.0(L) 42.0 - 52.0 % [facility] Mean Corpuscular Volume 87.6 80.0 - 98.0 fL [facility] Mean Corpuscular Hemoglobin 30.6 27.0 - 33.0 pg [facility] Mean Corpuscular HGB Conc 34.9 31.0 - 36.0 g/dl [facility] Red Cell Distribution Width 13.0 11.0 - 16.0 % [facility] Platelet Count 288 160 - 400 X10*3/uL [facility] Mean Platelet Volume 8.4(L) 9.4 - 12.4 fL [facility] Neutrophils Percent Auto 64.0 45 - 73 % [facility] Imm Gran Pct Auto 0.5(H) 0.0 - 0.4 % [facility] Lymphocytes Percent Auto 24.1 20 - 40 % [facility] Monocytes Percent Auto 7.2 2 - 11 % [facility] Eosinophils Percent Auto 3.6 0 - 4 % [facility] Basophils Percent Auto 0.6 0 - 2 % [facility] NRBC Pct Auto 0.0 0.0 - 0.2 /100WBC [facility] Neutrophils Absolute Auto 6.2 2.0 - 8.3 x10*3/uL [facility] Imm Gran Abs Auto 0.05(H) 0.00 - 0.03 X10*3/uL [facility] Lymphocytes Absolute Auto 2.3 1.2 - 4.9 X10*3/uL [facility] Monocytes Absolute Auto 0.7 0.1 - 1.2 X10*3/uL [facility] Eosinophils Absolute Auto 0.4 0.0 - 0.4 X10*3/uL [facility] Basophils Absolute Auto 0.1 0.0 - 0.2 X10*3/uL [facility] NRBC Abs Auto 0.000 0.0 - 0.012 X10*3/uL [facility] 09/15/2024 4:20 PM EDT 09/15/2024 4:24 PM EDT Generic External Data Provider LAB BLOOD ORDERAB LES Final Result Performing Organization Address [facility]/ZIP Co de Phone Number [facility] [address] [place] [phone] * Lipase (09/15/2024 4:20 PM EDT) Only the most recent of2 resultswithin the time period is included. Pathologist [facility] Lipase 15 8 - 78 U/L [facility] 09/15/2024 4:20 PM EDT 09/15/2024 4:24 PM EDT Generic External Data Provider LAB BLOOD ORDERAB LES Final Result Performing Organization Address [facility]/ZIP Co de Phone Number [facility] [address] [place] [phone] * (ABNORMAL) Comprehensive Metabolic Panel (09/15/2024 4:20 PM EDT) Only the most recent of3 resultswithin the time period is included. Sodium 140 135 - 145 mmol/L [facility] Potassium 3.7 3.3 - 5.1 mmol/L [facility] Chloride 106 96 - 108 mmol/L [facility] Carbon Dioxide 26 22 - 29 mmol/L [facility] Anion Gap 12 12 - 20 [facility] Urea Nitrogen (BUN) 19(H) 9 - 16 mg/dL [facility] Creatinine, Serum 0.76 0.5 - 1.4 mg/dL [facility] Creatinine Clr Calc Pharmacy 102.6 [facility] Comment:eGFR (calculated fro m the MDRD study equation) and eCrCl(calculated from the Cockcroft-Gault equation) are based ondifferent parameters and may not yield comparable results.If eCrCl result is absurd, please check patient'sheight/weight. Estimated Glomerular Filt Rate >60 [facility] Comment:Chronic Kidney Disea se: Estimated GFR < 60 mL/min/1.50m7Hpyxvc Kidney Disease: Estimated GFR < 15 mL/min/1.73m2 Glucose 142(H) 60 - 115 mg/dL [facility] Calcium 8.8 8.4 - 10.2 mg/dL [facility] Bilirubin, Total 0.2 0.0 - 1.0 mg/dL [facility] Aspartate Amino Transferase 19 5 - 37 U/L [facility] Alanine Aminotransferase 9 0 - 40 U/L [facility] Total Protein 6.8 6.5 - 8.0 g/dL [facility] Albumin Level 3.9 3.5 - 5.0 g/dL [facility] Alkaline Phosphatase 86 39 - 117 U/L [facility] 09/15/2024 4:20 PM EDT 09/15/2024 4:24 PM EDT us Generic External Data Provider LAB BLOOD ORDERAB LES Final Result [facility] [address] [place] [address] [phone] * XR Chest 2 Views (09/15/2024 3:59 PM EDT) Anatomical Region Laterality Modality Chest Radiographic Nilda ging 09/15/2024 3:59 PM EDT Narrative 09/15/2024 4:52 PM EDT ? [facility] ?[address] ?[place] [address] ?XRay Report ? Signed ? Patient: Ommerle,Peter ?MR#: [id number] ?? 5 ? : 1955 ?Acct:[id number] ? Age/Sex: 69 / M ?ADM Date: 09/15/24 ? Loc: HO.ED ? Attending Dr: ? Ordering Physician: Arsh Savage ?? Date of Service: 09/15/24 ?? Procedure(s): XR chest 2V ?? Accession Number(s): [id number] ? cc: Name,Memo ARREDONDO; Arsh Savage ? [...] DD/ 1559 ? TD/TT: 09/15/24 1637 ? Regional Economist: ? Procedure Note [place] - 09/15/[address] [address] XRay Report Signed Patient: Myles TiptonMR#: [id number] 5 : 3Acct:[id number] Age/Sex: 69 / MADM Date: 09/15/24 Loc: HO.ED Attending Dr: Ordering Physician: Arsh Savage Date of Service: 09/15/24 Procedure(s): XR chest 2V Accession Number(s): [id number] cc: Memo Alex MD; Arsh Savage EXAMINATION: XR CHEST CLINICAL [...] 09/15/24 1649 DD/ 1559 TD/TT: 09/15/24 1637 Regional Economist: [facility] External Provider IMG XR PROCEDURES Final Result * CT Head w/o Contrast (09/15/2024 3:57 PM EDT) Anatomical Region Laterality Modality Head, Neck Computed Tomogra phy 09/15/2024 3:57 PM EDT Narrative 09/15/2024 4:22 PM EDT ? [facility] ?[address] ?[place] [address] ? CT Scan Report ? Signed ? Patient: Saeed,Myles ?MR#: [id number] ?? 5 ? : 1955 ?Acct:[id number] ? Age/Sex: 69 / M ?ADM Date: 04/09/25 ? Loc: HO.ED ? Attending Dr: ? Ordering Physician: Arsh Savage ?? Date of Service: 09/15/24 ?? Procedure(s): CT head/brain wo IV con ?? Accession Number(s): [id number] ? cc: Name,Memo ARREDONDO; Arsh Savage ? Report Number: ?? [id number]: Total DLP = ??653.00 mGy-cm ?? EXAMINATION: ?? CT HEAD WITHOUT CONTRAST ? CLINICAL INFORMATION: ?? Head injury prior day, patient anticoagulated. ? COMPARISON: ?? 03/20/2023. ? TECHNIQUE: ?? Contiguous axial imaging was performed from the skull base to vertex ?? without intravenous administration of contrast. ? This CT examination was performed using dose optimization techniques as ?? appropriate, variously including the following: ?? *Automated exposure control ?? *Adjustment of mA and/or kV according to patient size (this includes ?? techniques or standardized protocols for targeted exams where dose is ?? matched to indication/reason for exam; i.e. extremities or head) ?? *Use of iterative reconstruction technique ? FINDINGS: ?? There is no evidence of intracranial hemorrhage or extra-axial fluid ?? collection. ?? There is no mass effect, or edema. No CT evidence of acute territorial ?? infarct. ?? Ventricles, sulci, and cisterns are normal in size and configuration ?? for patient age. No hydrocephalus. No midline shift. ?? Negative hyperdense MCA sign. Negative insular ribbon sign. ? 7 mm oval focus of hyperattenuation in the right occipital lobe, stable ?? from prior exams, chronic. ?? 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 ?? Normal pituitary. ?? Mild atheromatous calcification of the bilateral carotid siphons. ? Globes and orbital contents image normally. ?? No extracranial soft tissue abnormalities. ? Trace amount of fluid in the right mastoid tip. Right mastoid otherwise ?? well pneumatized. ?? The paranasal sinuses, left mastoid air cells, and tympanic cavities ?? are normally aerated. ?? No suspicious bony abnormalities. There are no acute fractures evident. ? CT/CT head/brain wo IV con ?? IMPRESSION: ?? No acute intracranial abnormality. ? Electronically signed by: ??Vick Koo MD ??09/15/2024 04:19 PM EDT RP ? Dictated By: ?Vick Koo MD ? Signed By: ?<Electronically signed by Vick Koo MD in OV> ?09/15/24 1619 ? DD/ 1557 ? TD/TT: 09/15/24 1612 ? Regional Economist: ? Procedure Note Donotuseinterpreter, Image - 09/15/[address] [address] [address] Scan Report Signed Patient: Alycia Tipton#: [id number] 5 : 1955cct:[id number] Age/Sex: 69 / MADM Date: 09/15/24 Loc: HO.ED Attending Dr: Ordering Physician: Arsh Savage Date of Service: 09/15/24 Procedure(s): CT head/brain wo IV con Accession Number(s): [id number] cc: Name,Memo ARREDONDO; Arsh Savage Report Number: [id number]: Total DLP = 653.00 mGy-cm EXAMINATION: CT HEAD WITHOUT CONTRAST CLINICAL INFORMATION: Head injury prior day, patient anticoagulated. COMPARISON: 03/20/2023. TECHNIQUE: Contiguous axial imaging was performed from the skull base to vertex without intravenous administration of contrast. This CT examination was performed using dose optimization techniques as appropriate, variously including the following: *Automated exposure control *Adjustment of mA and/or kV according to patient size (this includes techniques or standardized protocols for targeted exams where dose is matched to indication/reason for exam; i.e. extremities or head) *Use of iterative reconstruction technique FINDINGS: There is no evidence of intracranial hemorrhage or extra-axial fluid collection. There is no mass effect, or edema. No CT evidence of acute territorial infarct. Ventricles, sulci, and cisterns are normal in size and configuration for patient age. No hydrocephalus. No midline shift. Negative hyperdense MCA sign. Negative insular ribbon sign. 7 mm oval focus of hyperattenuation in the right occipital lobe, stable from prior exams, chronic. 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 Normal pituitary. Mild atheromatous calcification of the bilateral carotid siphons. Globes and orbital contents image normally. No extracranial soft tissue abnormalities. Trace amount of fluid in the right mastoid tip. Right mastoid otherwise well pneumatized. The paranasal sinuses, left mastoid air cells, and tympanic cavities are normally aerated. No suspicious bony abnormalities. There are no acute fractures evident. CT/CT head/brain wo IV con IMPRESSION: No acute intracranial abnormality. Electronically signed by: Vick Koo MD 09/15/2024 04:19 PM EDT Dictated By: Vick Koo MD Signed By: <Electronically signed by Vick Koo MD in OV> 09/15/24 1619 DD/ 1557 TD/TT: 09/15/24 1612 Regional Economist: [facility] External Provider IMG CT PROCEDURES Final Result * Hematoxylin and Eosin Stain (09/02/2024 7:49 AM EDT) 09/02/2024 7:49 AM EDT 09/02/2024 8:36 AM EDT [facility] - 09/03/2024 4:50 PM EDT ----- ------- Name: Myles Tipton ?Age/Sex: 69/M ? : 1955 Unit#: [id number] ?? Attend Dr: Nathalia Garza MD ?Re09/02/24 ?Status: DEP [facility] ? Location: HO.SSS ?Disch: ? ----- ------- SPEC : [id number] ? RECD: 09/02/24 ? STATUS: ??SOUT ? REQ NUM: [id number] ? TRACY: 09/02/24 ? SUBM DR: Nathalia Garza MD ? ENTERED: ??09/02/24 ?SP TYPE: Surgical ? OTHR DR: Name,Memo ARREDONDO ? ORDERED: ??HE Stain/24, Gross Micro L4/8 ? Diagnosis ?? A. ??Terminal ileum, biopsy: ??Terminal ileal mucosa within normal limits. ? B. ??Cecum, polypectomy: ??Tubular adenoma; negative for high-grade dysplasia or carcinoma. ? C. ??Colon, ascending, polypectomy: ??Colonic mucosa with mild surface hyperplastic ?? changes. ? D. ??Colon, right, biopsy: ??Colonic mucosa within normal limits. ? E. ??Colon, left, biopsy: ??Colonic mucosa within normal limits. ? F. ?? Colon, descending, polypectomy: ??Inflammatory polyp. ? G. ??Colon, sigmoid, polypectomy: ??Tubular adenoma; negative for high-grade dysplasia or ?? carcinoma. ? H. ??Rectum, biopsy: ??Rectal mucosa within normal limits. ?Clinical History Pre-Op Dx: ??Abdominal pain Post-Op Dx: Colon polyps ?Microscopic Description A-H. ??Microscopic sections reviewed. ? Material Received ?? A. TI biopsies ?? B. Cecal polyp ?? C. Ascending colon polyp ?? D. Right side colon biopsies ?? E. Left side colon biopsies ?? F. Descending colon polyp ?? G. Sigmoid polyp ?? H. Rectum biopsies ? CONTINUED ON NEXT PAGE ----- ------- Name: Myles Tipotn ?Age/Sex: 69/M ? : 1955 Unit#: [id number] ?? Attend Dr: Nathalia Garza MD ?Re09/02/24 ?Status: DEP [facility] ? Location: HO.SSS ?Disch: ? ----- ------- SPEC : [id number] ? RECD: 09/02/24 ? STATUS: ??SOUT ? REQ NUM: [id number] ? TRACY: 09/02/24 ? SUBM DR: Nathalia Garza MD ? ENTERED: ??09/02/24 ?SP TYPE: Surgical ? OTHR DR: Memo Alex MD ? ORDERED: ??HE Stain/, Gross Micro L4/8 ? Gross Description Received in eight parts. Part A: ??Received in formalin labeled ?TI biopsies? are 2 negron-pink irregular tissue fragments each measuring 0.25 cm, submitted in toto in a cassette labeled A. Part B: ??Received in formalin labeled ?cecal polyp? are 2 negron irregular tissue fragments each measuring 0.15 cm, submitted in toto in a cassette labeled B. Part C: ??Received in formalin labeled ?ascending colon polyp? is a 0.3 cm negron-pink irregular tissue fragment, submitted in toto in a cassette labeled C. Part D: ??Received in formalin labeled ?right side colon biopsies are 3 negron irregular tissue fragments each measuring 0.15 cm, submitted in toto in a cassette labeled D. Part E: ??Received in formalin labeled left side colon biopsies? are 3 negron-pink irregular tissue fragments ranging from 0.15-0.25 cm, submitted in toto in a cassette labeled E. Part F: ??Received in formalin labeled ?descending colon polyp? is a 0.5 cm negron-pink papular tissue fragment, submitted in toto in a cassette labeled F. Part G: ??Received in formalin labeled ?sigmoid polyp? is a 0.4 cm negron-red papular tissue fragment with an attached 0.4 x 0.2 x 0.15 cm tail of negron red mucosa, submitted in toto in a cassette labeled G. Part H: ??Received in formalin labeled rectum biopsies? are 2 negron-white irregular tissue fragments measuring 0.15 and 0.3 cm, submitted in toto in a cassette labeled H. CEDS Copies To: ?? Nathalia Garza MD ?? [facility] ?? [address] ?? [place] [address] ?? [phone] ?? Name,Memo ARREDONDO ?? [address] [place] [address] ?? [place] [address] ?? [phone] ? CONTINUED ON NEXT PAGE ----- ------- Name: Myles Tipton ?Age/Sex: 69/M ? : 1955 Unit#: [id number] ?? Attend Dr: Nathalia Garza MD ?Re09/02/24 ?Status: [facility] ? Location: HO.SSS ?Disch: ? ----- ------- SPEC : [id number] ? RECD: 09/02/24 ? STATUS: ??SOUT ? REQ NUM: [id number] ? TRACY: 09/02/24 ? SUBM DR: Nathalia Garza MD ? ENTERED: ??09/02/24 ?SP TYPE: Surgical ? OTHR : Name,Memo ARREDONDO ? ORDERED: ??HE , Gross Micro L4/8 ? ----- ------- Signed (signature on file) Fuad Willson MD 09/03/24 860 ? ----- ------- ? END OF REPORT ? us Generic External Data Provider LAB BLOOD ORDERAB LES Final Result [facility] [address] [facility] [place] [address] [phone] * CT Abdomen Pelvis w/ Contrast (08/04/2024 12:57 PM EST) Only the most recent of2 resultswithin the time period is included. Anatomical Region Laterality Modality Body, Pelvis, Abdomen Computed T omography 08/04/2024 12:5 7 PM EST Narrative 08/04/2024 12:59 PM EST ? [facility] ?[address] ?[place] [address] ? CT Scan Report ? Signed ? Patient: Myles Tipton ?MR#: [id number] ?? 5 ? : 1955 ?Acct:[id number] ? Age/Sex: 69 / M ?ADM Date: 08/04/24 ? Loc: HO.CT ? Attending Dr: Memo Alex MD ? Ordering Physician: Name,Memo ARREDONDO ?? Date of Service: 08/04/24 ?? Procedure(s): CT abdomen pelvis w IV con ?? Accession Number(s): [id number] ? cc: Name,Memo ARREDONDO ? Report Number: ?? [id number]: Total DLP = ??534.00 mGy-cm ? CLINICAL HISTORY: 10 days of LLQ abdominal pain and malaise ? CT abdomen and pelvis with contrast ? Comparison: CT/SR - CT ABDOMEN PELVIS W IV CON - 07/08/24 21:59 EST ? Findings: ?? The lung bases are clear. ?? Similar-appearing cystic/lucent process involving the medial right lung. ?? 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 ?? The gallbladder is absent. ?? The liver demonstrates similar mild intrahepatic biliary ductal prominence. ?? The spleen, adrenal glands and pancreas are unremarkable. ?? Kidneys, ureters and bladder are within normal limits. ?? Moderate fecal retention within the colon. No bowel obstruction, free air, ?? free fluid or abscess. ?? No evidence of diverticulosis ?? No acute osseous finding. ?? Oyov-yo-pujjiqzg atherosclerotic disease ?? The prostate gland is mildly enlarged and heterogeneous, nonspecific ? Impression: ? There is fecal retention throughout the colon. There is no evidence of ?? diverticulosis. ?? No definite acute process. ?? Incidental findings as detailed. ? This document has been electronically signed by: Kurtis Murrieta MD on ?? 08/04/2024 12:57:41 ? Dictated By: ?Kurtis Murrieta MD ? Signed By: ?<Electronically signed by Kurtis Murrieta MD in OV> ? 08/04/24 1258 ? DD/ 1257 ? TD/TT: 08/04/24 1257 ? Regional Economist: ? Procedure Note Gage, Image - 08/04/[address] [place] [id number] [address] Scan Report Signed Patient: Alycia Tipton#: [id number] 5 : 3Acct:[id number] Age/Sex: 69 / MADM Date: 08/04/24 Loc: .CT Attending Dr: Memo Alex MD Ordering Physician: Memo Alex MD Date of Service: 08/04/24 Procedure(s): CT abdomen pelvis w IV con Accession Number(s): [id number] cc: Memo Alex MD Report Number: [id number]: Total DLP = 534.00 mGy-cm CLINICAL HISTORY: 10 days of LLQ abdominal pain and malaise CT abdomen and pelvis with contrast Comparison: CT/SR - CT ABDOMEN PELVIS W IV CON - 07/08/24 21:59 EST Findings: The lung bases are clear. Similar-appearing cystic/lucent process involving the medial right lung. 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 The gallbladder is absent. The liver demonstrates similar mild intrahepatic biliary ductalprominence. The spleen, adrenal glands and pancreas are unremarkable. Kidneys, ureters and bladder are within normal limits. Moderate fecal retention within the colon. No bowel obstruction, free air, free fluid or abscess. No evidence of diverticulosis No acute osseous finding. Pckj-ce-sqnafyli atherosclerotic disease The prostate gland is mildly enlarged and heterogeneous, nonspecific Impression: There is fecal retention throughout the colon. There is no evidence of diverticulosis. No definite acute process. Incidental findings as detailed. This document has been electronically signed by: Kurtis Murrieta MD on 08/04/2024 12:57:41 Dictated By: Kurtis Murrieta MD Signed By: <Electronically signed by Kurtis Murrieta MD in OV> 08/04/24 1258 DD/ 1257 TD/TT: 08/04/24 1257 Regional Economist: us Memo Name IMG CT PROCEDURES Final Result * Blood Culture (First) (07/08/2024 7:20 PM EST) Blood Venous blood specimen / Unknown 07/08/2024 7:20 PM EST 07/08/2024 7:24 PM EST Comment:Blood Narrative [facility] - 07/13/2024 9:24 PM EST Blood Culture (First) No growth after 5 days. Specimen Source: Blood us Generic External Data Provider LAB MICROBIOLOGY - GENERAL ORDERABLES Final Result [facility] [address] [place] [phone] * Urinalysis, Complete, with Reflex to Culture (07/08/2024 7:20 PM EST) Color Urine Yellow [facility] Appearance Urine Clear [facility] PH 5.5 5.0 - 9.0 [facility] Glucose Urine UA Negative Negative mg/dL [facility] Urine Blood Negative Negative [facility] Specific [place] - Urine 1.015 1.005 - 1.025 [facility] Urine Protein Negative Neg-Trace mg/dL [facility] Urine Ketones Negative Negative mg/dL [facility] Nitrite Urine Negative Negative [facility] Leukocyte Esterase Urine Negative Negative [facility] RBC Urine 0-2 0 - 2 /HPF [facility] Urine WBC 0-5 0 - 5 /HPF [facility] Urine Squamous Epithelial Cell 0-2 0 - 2 /HPF [facility] Urine Bacteria None Seen None Seen [facility] Hyaline Casts, Urine 0-2 0 - 2 /LPF [facility] 07/08/2024 7:20 PM EST 07/08/2024 7:24 PM EST Narrative [facility] - 07/08/2024 7:31 PM EST Urine, Clean Catch us Generic External Data Provider LAB URINE ORDERAB LES Final Result Performing Organization Address City/[facility]/ZIP Co de Phone Number [facility] [address] [place] [address] [phone] * Lactic Acid (07/08/2024 7:20 PM EST) Lactic Acid 1.1 0.5 - 2.0 mmol/L [facility] 07/08/2024 7:20 PM EST 07/08/2024 7:24 PM EST us Generic External Data Provider LAB BLOOD ORDERAB LES Final Result Performing Organization Address City/[facility]/ZIP Co de Phone Number [facility] [address] [place] [phone] * Blood Culture (Second) (07/08/2024 6:53 PM EST) Blood Venous blood specimen / Unknown 07/08/2024 6:53 PM EST 07/09/2024 7:56 AM EST Comment:Blood Narrative [facility] - 07/09/2024 7:57 AM EST Blood Culture (Second) Test not performed NO SPECIMEN RECEIVED. PATIENT DEPARTED ED Specimen Source: Blood us Generic External Data Provider LAB MICROBIOLOGY - GENERAL ORDERABLES Final Result Performing Organization Address City/[facility]/ZIP Co de Phone Number [facility] [address] [place] [phone] * POCT Hemoglobin (07/07/2024 3:56 PM EST) Hemoglobin 15.0 13.0 - 17.0 QC Media Lot # [id number] Lot# Expiration Date Blood 07/07/2024 3:56 PM EST Memo Name POINT OF CARE TEST ENTER/EDIT OR DERABLES Final Result * Lipid Panel, Standard (01/02/2024 6:36 AM EDT) Triglycerides 112 <150 mg/dL [facility] Comment:Desirable Triglyceri de: less than 150 mg/dLBorderline High Triglyceride 150-199 mg/dLHigh Triglyceride: 200-499 mg/dLVery High Triglyceride: greater than or equal to 5OO mg/dL Cholesterol 154 <200 mg/dL [facility] Comment:Desirable Cholestero l: less than 200 mg/dLBorderline High Cholesterol: 200-239 mg/dLHigh Cholesterol: greater than 239 mg/dL LDL Cholesterol Calculated 83 <100 mg/dL [facility] Comment:Desirable LDL: less than 100 mg/dLNear Optimal/Above Optimal LDL: 110- 129 mg/dLBorderline High LDL: 130-159 mg/dLHigh LDL: 160-189 mg/dLVery High LDL: greater than or equal to 190 mg/dL HDL Cholesterol 49 >40 mg/dL [facility] Comment:Desirable HDL: great er than 40 mg/dL Note: This HDL assay may give artificially low results in patients with liver disease. 01/02/2024 6:36 AM EDT 01/02/2024 6:36 AM EDT Generic External Data Provider LAB BLOOD ORDERAB LES Final Result [facility] [address] [place] [phone] * Hepatitis Panel, General (09/01/2023 11:55 AM EDT) Hepatitis A IgM Nonreactive Nonreactive [facility] Comment:IgM antibodies to LANDEROS V not detected; does not exclude earlyacute or recovered HAV infection. ~Hepatitis B Surface Antibody REACTIVE Nonreactive [facility] Comment:REACTIVE: > 11.99 mI U/mL Hepatitis B Core Antibody Nonreactive Nonreactive [facility] Hepatitis C Antibody Nonreactive Nonreactive [facility] Comment:Antibodies to HCV no t detected; does not exclude early acuteHCV infection. Hepatitis B Surface Ag Negative Negative [facility] Blood 09/01/2023 11:5 5 AM EDT 09/01/2023 1:48 PM EDT Sonia Ladd PRODUCE PRODUCTION TEAM MEMBER LAB BLOOD ORDERABLES Final Res ult [facility] [address] [place] [phone] * Hm Colonoscopy (03/04/2023) Colonoscopy Normal Normal Comment:Negative result, Rep eat in 3-5 years Memo Name HEALTH MAINTENANCE Final Result from Last 3 Months or Most Recently Relevant to Health Maintenance Insurance [facility] STANDARD MEDICARE Care Teams Healthcare Prof Relationship Specialty Start Date End Date Name, MD Memo [address] [place] [address] PCP - General Family Medicine 08/30/15
--- OUTSIDE RECORDS SUMMARY | 2024-09-15 17:57 | XMS_ITS | Encounter Summary ---
Author Organization [employer] Address [address] [place] [address] 7 [place] [address] Care Team Providers Care Electrician Supervisor Substation Name Role Phone Name, Memo ARREDONDO Primary Care Provider [phone] Reason for Visit * Reason Onset Date Comments Nurse Triage 09/03/2023 Encounter Details Date Type Department Care Team ([facility] st Contact Info) Description 09/03/2023 Telephone [facility] [address] [place], [place] [phone] Name, MD Memo [address] [place] [address] Nurse Triage Social History Tobacco Use Types [...] Triage call Pt was seen in [facility] [place] , report is on the [...] if feels that symptoms continue to worsen. 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 documented in this encounter Plan of Treatment Upcoming Encounters Date Type Department Care Team (Late st Contact Info) Description 10/22/2024 11:00 AM EDT Telemedicine [facility] [address] [place] [phone] 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, VON 11/11/2024 9:00 AM EDT Office Visit [facility] [address] [place] [phone] Name, MD Memo [address] [place] [phone] documented as of this encounter Visit Diagnoses Not on filedocumented in this encounter Additional Health Concerns Assessment Noted Time PHQ-9 Depression Total Score: 0 07/17/19 10:49 AM EST documented as of this encounter Care Teams Electrician Supervisor Substation Relationship Specialty Start Date End Date NameMemo MD [address] [place] [phone] PCP - General Family Medicine 08/30/15 documented as of this encounter
--- OUTSIDE RECORDS SUMMARY | 2024-09-15 17:57 | XMS_ITS | Encounter Summary ---
Author Organization [employer] Address [address] [place] [address] 7 [place] [address] Care Team Providers Care Licensed Home Inspector Name Role Phone Name, Memo ARREDONDO Primary Care Provider [phone] Reason for Visit * Reason Comments Med Refill Encounter Details Date Type Department Care Team ([facility] st Contact Info) Description 02/03/2024 Refill [facility] [address] [place], [place] [phone] Name, MD Memo [address] [place] [address] Chronic pain syndrome Social History Tobacco Use [...] Info) Description 10/22/2024 11:00 AM EDT Telemedicine [facility] [address] [place] [address] 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 RN 11/11/2024 9:00 AM EDT Office Visit [facility] [address] [place] [address] Name, MD Memo [address] [place] [address] documented as of this encounter Visit Diagnoses Diagnosis Chronic pain syndrome documented in this encounter Additional Health Concerns Assessment Noted Time PHQ-9 Depression Total Score: 0 07/17/19 24 10:49 AM EST documented as of this encounter Care Teams Licensed Home Inspector Relationship Specialty Start Date End Date Memo Alex MD [address] [place] [address] PCP - General Family Medicine 08/30/15 documented as of this encounter
--- OUTSIDE RECORDS SUMMARY | 2024-09-15 17:57 | XMS_ITS | Encounter Summary ---
Author Organization [employer] Address [address] [place] [address] 7 [place] [address] Care Team Providers Care Tour Bus Driver Name Role Phone Name, Memo ARREDONDO Primary Care Provider [phone] Encounter Details Date Type Department Care Team (Late Contact Info) Description [facility] [address] [place], [place] [phone] Name, MD Memo [address] [place], [place] [phone] Social History Tobacco Use Types Packs/Day Years [...] Department Care Team (Late Contact Info) Description 10/22/2024 11:00 AM EDT Telemedicine [facility] [address] [place] [address] 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, RN 11/11/2024 9:00 AM EDT Office Visit [facility] [address] [place] [address] Name, MD Memo [address] [place] [address] documented as of this encounter Visit Diagnoses Not on filedocumented in this encounter Additional Health Concerns Assessment Noted Time PHQ-9 Depression Total Score: 9 06/27/19 23 10:17 AM EST documented as of this encounter Care Teams Tour Bus Driver Relationship Specialty Start Date End Date Name, MD Memo [address] [place] [phone] PCP - General Family Medicine 08/30/15 documented as of this encounter
--- OUTSIDE RECORDS SUMMARY | 2024-09-15 17:57 | XMS_ITS | Encounter Summary ---
Author Organization [employer] Address [address] [place] [address] 7 [place] [address] Care Team Providers Care Cycle Liaison Name Role Phone Name, Memo ARREDONDO Primary Care Provider [phone] Reason for Visit * Reason Onset Date Comments returning call back 05/14/2022 Encounter Details Date Type Department Care Team (Late st Contact Info) Description 05/14/2022 Telephone [facility] [address] [place] [address] Name, MD Memo [address] [place] [address] returning call back Social History Tobacco Use [...] be called back. Please contact pt at [phone] documented in this encounter Plan of Treatment Upcoming Encounters Date Type Department Care Team (Late st Contact Info) Description 10/22/2024 11:00 AM EDT Telemedicine [facility] [address] [place] [address] 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 RN 11/11/2024 9:00 AM EDT Office Visit [facility] [address] [place] [phone] Name, MD Memo [address] [place] [address] documented as of this encounter Visit Diagnoses Not on filedocumented in this encounter Care Teams Cycle Liaison Relationship Specialty Start Date End Date Name, MD Memo [address] [place] [address] PCP - General Family Medicine 08/30/15 documented as of this encounter
--- OUTSIDE RECORDS SUMMARY | 2024-09-15 17:57 | XMS_ITS | Encounter Summary ---
Author Organization [employer] Address [address] [place] [address] 7 [place] [address] Care Team Providers Care Police Lieutenant Precinct Name Role Phone NameMemo MD Primary Care Provider [phone] Encounter Details Date Type Department Care Team (Latest Contact Info) Description 07/09/[address] [facility] Dental, Provider, DDS Social History [...] Info) Description 10/22/2024 11:[address] [facility] [address] [place] [phone] 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 RN 11/11/2024 9:00 AM EDT Office Visit [facility] [address] [place] [phone] NameMemo MD [address] [place] [address] documented as of this encounter Visit Diagnoses Not on filedocumented in this encounter Care Teams Police Lieutenant Precinct Relationship Specialty Start Date End Date Memo Alex MD [address] [place] [address] PCP - General Family Medicine 08/30/15 documented as of this encounter
--- OUTSIDE RECORDS SUMMARY | 2024-09-15 17:57 | XMS_ITS | Encounter Summary ---
Author Organization [employer] Address [address] [place] [address] 7 [place] [address] Care Team Providers Care Interlocking Machine Operator Name Role Phone Name, Memo ARREDONDO Primary Care Provider [phone] Encounter Details Date Type Department Care Team (Late st Contact Info) Description 06/06/2022 Telephone [facility] [address] [place] [address] NameMemo MD [address] [place] [phone] Social History Tobacco Use Types Packs/Day Years [...] 10/22/2024 11:00 AM EDT Telemedicine [facility] [address] [place] [address] [phone] 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 RN 11/11/2024 9:00 AM EDT Office Visit [facility] [address] [place] [address] [phone] NameMemo MD [address] [place] [phone] documented as of this encounter Visit Diagnoses Not on filedocumented in this encounter Care Teams Interlocking Machine Operator Relationship Specialty Start Date End Date Name, MD Meom [address] [place] [address] PCP - General Family Medicine 08/30/15 documented as of this encounter
--- OUTSIDE RECORDS SUMMARY | 2024-09-15 17:57 | XMS_ITS | Encounter Summary ---
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, unspecified vessel or [...] Info) Description 10/22/2024 11:00 AM EDT Telemedicine [facility] [address] [place] [address] 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 RN 11/11/2024 9:00 AM EDT Office Visit [facility] [address] [place] [address] Name, MD Memo [address] [place] [address] documented as of this encounter Visit Diagnoses Diagnosis 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
[2024-09-15 18:12] VITALS: BP 161/85; PULSE 64
[2024-09-15 18:14] VITALS: BP 158/87; PULSE 67
[2024-09-15 18:16] VITALS: BP 150/89; PULSE 69
[2024-09-15] MEDS: ondansetron HCL 4 MG/2 ML VIAL IVPUSH (18:24)
[2024-09-15] MEDS: 0.9 % Sodium Chloride 1,000 ML 999 ML IV (18:24)
[2024-09-15] MEDS: Morphine Sulfate 2 MG/ML CARTRIDGE IVPUSH (18:30)
[2024-09-15 18:32] LABS: Appearance Urine Clear; Color Urine Yellow; Glucose Urine UA Negative (Negative); Leukocyte Esterase Urine Trace (Negative); Nitrite Urine Negative (Negative); PH 5.5 (5.0-9.0); UMIC TRIGGER UACC YES; Urine Blood Negative (Negative); Urine Ketones Negative (Negative); Urine Protein Negative (Neg-Trace)
[2024-09-15 18:37] LABS: Bacteria Urine None Seen (None Seen); Hyaline Casts Urine 0-2 /LPF (0-2); RBC Urine 0-2 /HPF (0-2); Squamous Epithelial Cell Urine 0-2 /HPF (0-2); WBC Urine 0-5 /HPF (0-5)
[2024-09-15] MEDS: iohexoL 350 MG/ML 100 ML INFUS..BTL IV (18:55)
[2024-09-15 21:03] VITALS: BP 150/89; PULSE 69; RESP 20; TEMP 36.5; O2SAT 98
== END 2024-09-15 21:05 | disposition left against medical advice (07) ==
PROVIDERS: Physician Assistant; Emergency Provider Emergency Medicine; PCP Internal Medicine Geriatric Medicine
DX: S06.0X0A Concussion without loss of consciousness, initial encounter (principal); R55 Syncope and collapse; R51.9 Headache, unspecified; R10.2 Pelvic and perineal pain; R11.0 Nausea; R07.89 Other chest pain; W18.30XA Fall on same level, unspecified, initial encounter; Y93.9 Activity, unspecified; Y92.9 Unspecified place or not applicable; Y99.0 Civilian activity done for income or pay; Z79.899 Other long term (current) drug therapy; Z79.01 Long term (current) use of anticoagulants
CPT/HCPCS: 36415; 70450; 71046; 74177; 80053; 81001; 83690; 84484; 85025; 85610; 93005; 96361; 96374; 96375; 99284; J2270; J2405; Q9967

== ENCOUNTER → 2024-09-15 15:57 | Outpatient (BNV) | payer MEDICARE, MEDICAID, SELFPAY | PROVIDERS: PCP Internal Medicine Geriatric Medicine; Visit Provider Radiology Diagnostic Radiology | DX: K56.41 Fecal impaction (principal); S09.90XA Unspecified injury of head, initial encounter; I70.0 Atherosclerosis of aorta; Z95.0 Presence of cardiac pacemaker | CPT/HCPCS: 70450; 71046 ==

== ENCOUNTER → 2024-09-15 15:58 | Outpatient (BNV) | payer MEDICARE, MEDICAID, SELFPAY | PROVIDERS: Emergency Provider Emergency Medicine; PCP Internal Medicine Geriatric Medicine; Visit Provider Internal Medicine Cardiovascular Disease | DX: R94.31 Abnormal electrocardiogram [ECG] [EKG] (principal); R07.9 Chest pain, unspecified; R42 Dizziness and giddiness | CPT/HCPCS: 93010 ==

== ENCOUNTER 2024-10-11 13:32 | Outpatient (AMB) | payer MEDICARE, MEDICAID, SELFPAY ==
--- NOTE | 2024-10-11 13:57 | A.OFFVIS_ITS ---
Vital Signs 10/11/24 13:58 Height 5 ft 11 in Weight 194 lb 0.108 oz BMI 27.1 BP 100/62 Blood Pressure Location Lt brachial Position Sitting Pulse 58 Pulse Source Pulse Oximeter Intake Visit Reasons: 6m follow up w/device ck Air Intercept Controller Required: No Allergies bee pollen [BEE STINGS] Allergy (Severe, Verified 10/11/24 14:01) ANAPHYLAXIS indomethacin [Indocin] Allergy (Severe, Verified 10/11/24 14:01) anaphylaxis tramadol [Ultram] Allergy (Severe, Verified 10/11/24 14:01) anaphylaxis fentanyl Adverse Reaction (Intermediate, Verified 10/11/24 14:01) Anxiety HPI HPI 6m follow up w/device ck: Details: Myles is a 69-year-old male with past medical history of hypertension, hyperlipidemia, sick sinus syndrome, pacemaker in place, CAD, multiple cardiac catheterizations with PCI, stents, last 07/10/2021, PAF, DVT/on Eliquis who was recently seen in the emergency room after having a fall at work with possible syncope. A CT scan of the head showed no acute abnormalities. He had no significant laboratory or EKG abnormalities. Was thought that he may have had a seizure but no seizure-type activity was witnessed. Today he reports that on the day hiv fall he was walking to a car in the parking lot with a client. He remembers walking and then people over him asking if he was okay. He did have a loss of consciousness and did strike his head. He had minor scrapes and bruises, no significant injury. He denied feeling anything different prior to having his fall. He says he did not trip. He has been doing well since then. He has no concerning shortness of breath, PND, weight gain or edema. He does admit that he went back to smoking. No chest discomfort at rest or with activity. He did have heart palpitations and pressure in his chest on 08/24/2024 when he had 3 hours of paroxysmal AFib. No bleeding issues reported. Taking all meds as directed. 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 [facility] Medical History Nicotine dependence, cigarettes, uncomplicated Elevated cholesterol History of chemotherapy Obstructive sleep apnea (~2018) On anticoagulant therapy DVT (deep venous thrombosis) Essential hypertension Tubular adenoma of colon COVID-19 vaccine administered Seizures (~04/2020) GERD (gastroesophageal reflux disease) Esophagitis Atherosclerotic cardiovascular disease Psychotic disorder Syncope Headache Myocardial infarction Pacemaker (~05/2013) Tremor Brain bleed CAD (coronary artery disease) Surgical History Hx of shoulder surgery History of total left knee replacement History of ERCP History of spinal surgery History of colonoscopy (~09/2020) History of right knee surgery (~12/2013) History of total right hip replacement (~06/2012) History of cholecystectomy History of cardiac catheterization History of permanent cardiac pacemaker placement (~05/2013) History of esophagogastroduodenoscopy (EGD) (~09/2020) History of appendectomy Stented coronary artery Family History Father Heavy cigarette smoker Throat cancer Mother Heart disease Social History Household Members: None Household Members Other:: shares house with a friend Housing: House Are you a primary direct care counselor to a significant other at home: No Do you presently have visiting nurse or other home services: No Alcohol intake: never Comment: resting eyes closed Patient Tobacco Use Status: Current someday Tobacco user Tobacco use type: Cigarette Years Smoked: 8 +/- e-Cigarette/Vaping Use: Never Used Second Hand Smoke Exposure: No Advance Directives Date on File: 12/16/20 service: No Current occupational status: employed and retired Review of Systems ENT Reports dizziness Card Denies chest pain, Denies chest pain at rest, Denies chest pain with activity, Denies rapid heart rate, Denies pedal edema, Denies edema, Denies leg edema, Denies lightheadedness, Denies palpitations, Denies dyspnea, Denies dyspnea on exertion and Denies orthopnea Resp Denies cough, Denies dyspnea and Denies dyspnea on exertion GI Denies hematochezia and Denies change in stool character Musc Denies abnormal gait, Reports limited range of motion, Reports muscle cramps, Denies muscle weakness, Denies numbness, Denies radiating pain into limb, Denies stiffness and Denies tingling Neuro Denies abnormal gait, Reports dizziness, Denies numbness and Denies tingling Endo Denies palpitations Physical Exam Vital Signs: Last Vital Signs Pulse 58 10/11/24 13:58 BP 100/62 10/11/24 13:58 BMI result Body Mass Index 27.1 Office Procedures Cardiac Device Check Cardiac Device Check Details: [place] dual-chamber pacemaker interrogation today, battery 10.3-10.9 years, DDDR mode, low rate 60, RA threshold 0.625 volts at 0.4 milliseconds, RV threshold 0.5 volts at 0.4 milliseconds, ventricular noise present, stable per rep, PAF episodes noted, longest recent 3 hours on 08/24/2024, most less than 1 minute. [id number] Cardiac Device Check, pacemaker dual lead Procedure code (CPT) selection complete Assessment & Plan Assessment & Plan (1) CAD (coronary artery disease): Comment: (NSTEMI 2012, STEMI 2016, Stents to LAD, rPDA, RPL, cath 01/2020), catheterization 07/10/2021, no change to anatomy, patent stents Code(s): I25.10 - Atherosclerotic heart disease of ute coronary artery without angina pectoris Category: Medical Plan: History of CAD with multiple cardiac catheterizations and PCI in the past. He has known stent to the proximal RPL, distal RCA. He had angioplasty to the distal LAD in 2015. His cardiac catheterization was 07/10/2021 showing patent distal RCA stent, 60% PLV superior branch small size vessel, distal LAD stenosis unchanged, small territory and small-vessel, 40-50% mid LAD stenosis. He und erwent a repeat cardiac catheterization for reported symptoms on 11/04/2023 showing no significant change in anatomy, right PDA and RCA stents patent. He has been stable since that time. Will continue current management for stable CAD including isosorbide, amlodipine and metoprolol for triple antianginal therapy. He can Continue p.r.n. use of nitroglycerin for chest discomfort. Continue aspirin, high-dose rosuvastatin and Zetia. (2) Pacemaker: Onset Date: ~05/2013 Comment: ([place] DCPP, placed 2012 - device interrogation 08/30/20) Code(s): Z95.0 - Presence of cardiac pacemaker Category: Medical Plan: [employer] [place] dual-chamber pacemaker with recent generator change. Lead change not done. Remote monitoring in use. Office interrogation today shows device is functioning normally. He does have V noise which is stable. Next office interrogation due in 6 months. (3) Sick sinus syndrome: Code(s): I49.5 - Sick sinus syndrome Category: Medical Plan: As above (4) PAF (paroxysmal atrial fibrillation): Code(s): I48.0 - Paroxysmal atrial fibrillation Category: Medical Plan: History of PAF which is mostly suppressed with metoprolol. He has had brief episodes lasting seconds, with longest episode 3 hours on 08/24/2024. He was symptomatic on that day with palpitations and chest pressure. Last AFib episode 09/20/2024. Blood pressure runs low, unable to further titrate metoprolol. If he continues to have long episodes then may need antiarrhythmic therapy. Continue Eliquis for anticoagulation. 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 He had no arrhythmias recorded on that day. He has not had recurrent episodes. Possibly related to seizures. Will update echocardiogram. Plan Time spent on chart review, documentation, interview and assessment Orders: Orders CA echo transthoracic complete Today R55 - Syncope and collapse, Z98.890 - Other specified postprocedural states Coding Level of Care Code Est Pt Level 4 (11472) Complex EM visit Add On G2211 Diagnoses CAD (coronary artery disease) I25.10 Pacemaker Z95.0 Sick sinus syndrome I49.5 PAF (paroxysmal atrial fibrillation) I48.0 On anticoagulant therapy Z79.01 S/P cardiac cath Z98.890 Syncope R55 CPT Codes Cardiac Device Check - Cardiac Device 2: [id number] Cardiac Device Check, pacemaker dual lead ([id number]) Time Spent (min) 28
[2024-10-11 13:58] VITALS: BP 100/62; PULSE 58; BMI 27.1
--- OUTSIDE RECORDS SUMMARY | 2024-10-11 15:01 | XMS_ITS ---
Author Organization [facility] Address [address] [place] [address] Care Team Providers Care Television Technician Name Role Phone Name Memo ARREDONDO Primary Care Provider Rolly Manzanares Unavailable [phone] Allergies Allergen (clinical drug ingredient) Drug/Non Drug [...] Ordered Date Performed Result Body Sit e 73940-Cnxzmwlq Plate 09/07/2024 N/A Encounters Encounter Location Date Provider Diagnosis [facility] [address] [address] 09/07/2024 Rolly Herman Ingrown nail L60.0 ; Cellulitis of toe of left foot L03.032 and Atherosclerosis of [place] artery of both lower extremities, with unspecified presence of clinical manifestation I70.203 Assessments Encounter Date Diagnosis (ICD Code) Assessment Notes Treatment Notes Treatment Clinical Notes Section Notes 09/07/2024 Ingrown nail (ICD-10 - L60.0) 09/07/2024 Cellulitis of toe of left foot (ICD-10 - L03.032) 09/07/2024 Atherosclerosis of [place] artery of both lower extremities, with unspecified presence of clinical manifestation (ICD-10 - I70.203) Plan Of Treatment Medication Medication Name Sig Start Date Stop Date Notes Cephalexin 500 MG 1 capsule Orally Thr ee times a day for 10 days Pending Test Test Name Order Date 30113-Dmagkgdh Plate 09/07/2024 Next Appt Details Follow Up: [...] Motrin was recommended for pain or discomfort (07126), CIRCULATION: Pt was advised as to the risk of delayed or nonhealing due to circulation. Pt is to call the office with any questions, concerns, or complications Anesthesia 3cc of 1 percent Lid ocaine Plain local anesthesic utilizing aseptic technique Location Medial nail border, TA Progress Notes * Myles JARADOB:1955 (69 yo M)Acc No.[id number]:09/07/2024 Progress Note Patient:?ESTEFANI Myles Provider:?Rolly Herman DPM :1955???Age:69 Y???Sex:Male Phillip e:09/07/2024 Address:[address] [place], [place] [address], [place] Pcp:Memo Alex MD Subjective: * Chief Complaints: [...] Hospitalization/Major Diagno stic Procedure:?Coronary artery disease involving [place] coronary artery of [place] heart with unstable angina pectoris Cardiac Cath and St[place] [facility] [place] L migel Ingrown? given antiboitics 01/08/22[facility] left knee 3x between 5 weeks [...] Multiple Tx Options(4),Rx drug management (4)???3.?Atherosclerosis of [place] artery of both lower extremities, with unspecified [...] Motrin was recommended for pain or discomfort (04095), CIRCULATION: Pt was advised as to the risk of delayed or nonhealing due to circulation. Pt is to call the office with any questions, concerns, or complications.? * Procedure Codes:?92350 Avuls ion Plate, Modifiers: TA * Preventive [...] DPM Date:?2024 Generated for James hatfield/Jorge Alberto/Robbin on:?10/11/2024 03:01 PM EDT History and Physical Notes * [...]
--- OUTSIDE RECORDS SUMMARY | 2024-10-11 15:01 | XMS_ITS | Encounter Summary ---
Author Organization [employer] Address [address] 7t [place] [address] Care Team Providers Care Burning Machine Operator Name Role Phone Name, Memo ARREDONDO Primary Care Provider [phone] Reason for Visit * Reason Onset Date Comments triage 06/05/2022 Encounter Details Date Type Department Care Team ([facility] st Contact Info) Description 06/05/2022 Telephone [facility] MEDICINE [address] [place] [address] Name, MD Memo [address] [place] [address] triage Social History Tobacco Use Types Packs/Day [...] Care Team (Late st Contact Info) Description 11/11/2024 9:00 AM EDT Office Visit [address] [address] Name, MD Memo [address] [place] [address] 01/07/2025 10:30 AM EDT Telemedicine [address] [address] 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 RN documented as of this encounter Visit Diagnoses Not on filedocumented in this encounter Care Teams Burning Machine Operator Relationship Specialty Start Date End Date Name, MD Memo [address] [place] [address] PCP - General Family Medicine 08/30/15 documented as of this encounter
--- OUTSIDE RECORDS SUMMARY | 2024-10-11 15:01 | XMS_ITS ---
Author Organization [facility] Address [address] [place] [address] Care Team Providers Care Java Sql Developer Name Role Phone Name Memo ARREDONDO Primary Care Provider Rolly Manzanares Unavailable [phone] Encounters Encounter Location Date Provider Diagnosis [address] [address] 09/30/2023 Rolly Herman Plan Of Treatment No Information Progress Notes * Myles JARADOB:1955 (69 yo M)Acc No.[id number]:09/30/2023 Progress Note Patient:Myles WHITING Provider:?Rolly eHrman DPM :1955???Age:68 Y???Sex:Male Phillip e:09/30/2023 Address:[address] [place], [place] [address] Pcp:Memo Alex MD Subjective: * Chief Complaints: [...] Herman DPM Date:?2023 Generated for Printi ng/Faethelg/eTransmitting on:?10/11/2024 03:01 PM EDT
--- OUTSIDE RECORDS SUMMARY | 2024-10-11 15:01 | XMS_ITS | Encounter Summary ---
Author Organization [employer] Address [address] [place] [address] 7 [place] [address] Care Team Providers Care Last Dipper Name Role Phone Name, Memo ARREDONDO Primary Care Provider [phone] Reason for Visit * Reason Onset Date Comments returning call back 05/14/2022 Encounter Details Date Type Department Care Team (Late st Contact Info) Description 05/14/2022 Telephone [facility] MEDICINE [address] [place] [address] Name, MD Memo [address] [place] [address] returning call back Social History Tobacco Use [...] be called back. Please contact pt at [phone] documented in this encounter Plan of Treatment Upcoming Encounters Date Type Department Care Team (Late st Contact Info) Description 11/11/2024 9:00 AM EDT Office Visit [facility] [address] [place] [address] Name, [place] [address] 01/07/2025 10:30 AM EDT Telemedicine [facility] [address] [place] [address] 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, RN documented as of this encounter Visit Diagnoses Not on filedocumented in this encounter Care Teams Last Dipper Relationship Specialty Start Date End Date Name, MD Memo [address] [place] [address] PCP - General Family Medicine 08/30/15 documented as of this encounter
--- OUTSIDE RECORDS SUMMARY | 2024-10-11 15:01 | XMS_ITS | Encounter Summary ---
Author Organization [employer] Address [address] [place] [address] 7 [place] [address] Care Team Providers Care Business Test Analyst Name Role Phone Name, Memo ARREDONDO Primary Care Provider [phone] Encounter Details Date Type Department Care Team (Latest Contact Info) Description 07/09/2021 Abstract [facility] CONVERSIONS Dental, Provider, DDS Social [...] Description 11/11/2024 9:00 AM EDT Office Visit [address] [address] Name, MD Memo [address] [place] [address] 01/07/2025 10:30 AM EDT Telemedicine [facility] MEDICINE [address] [place] [address] 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 RN documented as of this encounter Visit Diagnoses Not on filedocumented in this encounter Care Teams Business Test Analyst Relationship Specialty Start Date End Date Memo Alex MD [address] [place] [address] PCP - General Family Medicine 08/30/15 documented as of this encounter
--- OUTSIDE RECORDS SUMMARY | 2024-10-11 15:01 | XMS_ITS | Encounter Summary ---
Author Organization [employer] Address [address] [facility] 7t [place] [address] Care Team Providers Care Food Stylist Name Role Phone Name, Memo ARREDONDO Primary Care Provider [phone] Reason for Visit * Reason Onset Date Comments Med Refill 09/29/2024 Encounter Details Date Type Department Care Team ([facility] st Contact Info) Description 09/29/2024 Telephone [facility] [address] [place], [place] [phone] Name, MD Memo [address] [place] [address] Med Refill Social History Tobacco Use Types Packs/Day Years [...] encounter Miscellaneous Notes * Telephone Encounter - Alba Kim - 09/29/2024 5:34 PM EDT TC from pt requesting medication refill. Medications needing refill : oxyCODONE (Roxicodone) 10 MG immediate release tablet To be sent to: [facility] - [place], [place] - [address] [place] [address] *pt wanting an early fill because will be leaving [facility] in the afternoon to [place] documented in this encounter Plan of Treatment Upcoming Encounters Date Type Department Care Team ([facility] st Contact Info) Description 11/11/2024 9:00 AM EDT Office Visit [facility] MEDICINE [address] [place] [address] Name, MD Memo [address] [place] [address] 01/07/2025 10:30 AM EDT Telemedicine [facility] MEDICINE [address] [place] [address] 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 RN documented as of this encounter Visit Diagnoses Not on filedocumented in this encounter Additional Health Concerns Assessment Noted Time PHQ-9 Depression Total Score: 0 07/17/19 24 10:49 AM EST documented as of this encounter Care Teams Food Stylist Relationship Specialty Start Date End Date Name, MD Memo [address] [place] [address] PCP - General Family Medicine 08/30/15 documented as of this encounter
--- OUTSIDE RECORDS SUMMARY | 2024-10-11 15:01 | XMS_ITS | Encounter Summary ---
Author Organization [employer] Address [address] [place] [address] 7 [place] [address] Care Team Providers Care Blacksmith Assistant Name Role Phone Name, Memo ARREDONDO Primary Care Provider [phone] Reason for Visit * Reason Onset Date Comments Nurse Triage 09/03/2023 Encounter Details Date Type Department Care Team ([facility] st Contact Info) Description 09/03/2023 Telephone [facility] MEDICINE [address] [place], [place] [phone] Name, MD Memo [address] [place] [address] Nurse Triage Social History Tobacco Use Types [...] EDT Triage call Pt was seen in [facility] 09/02/23 , report is on the [...] if feels that symptoms continue to worsen. Rehab Aid will forward this triage to PCP and nursing team. Pt agreeswith disposition and home care advised. Insurance is verified as active. Protocol Used: Abdominal Pain - Male (Adult) Protocol-Based Disposition: Go to ED/[facility] Now (or to Office with PCP Approval) [...] accepted this outcome Pt inform went to [facility] ER on 09/02/23 but is still having observer gravity prospecting pain documented in this encounter Plan of Treatment Upcoming Encounters Date Type Department Care Team (Late st Contact Info) Description 11/11/2024 9:00 AM EDT Office Visit [facility] MEDICINE [address] [place] [address] Name, MD Memo [address] [place] [address] 01/07/2025 10:30 AM EDT Telemedicine [facility] MEDICINE [address] [place] [address] 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, VON documented as of this encounter Visit Diagnoses Not on filedocumented in this encounter Additional Health Concerns Assessment Noted Time PHQ-9 Depression Total Score: 0 07/17/19 10:49 AM EST documented as of this encounter Care Teams Blacksmith Assistant Relationship Specialty Start Date End Date NameMemo MD [address] [place] [address] PCP - General Family Medicine 08/30/15 documented as of this encounter
--- OUTSIDE RECORDS SUMMARY | 2024-10-11 15:01 | XMS_ITS | Encounter Summary ---
Author Organization [employer] Address [address] [place] [address] 7t [place] [address] Care Team Providers Care It Application Architect Name Role Phone Name, Memo ARREDONDO Primary Care Provider [phone] Reason for Visit * Reason Comments Med Refill Encounter Details Date Type Department Care Team ([facility] st Contact Info) Description 04/30/2023 Refill [facility] MEDICINE [address] [place], [place] [phone] [facility] [address] [place], [place] [phone] Coronary artery disease involving [place] heart without angina pectoris, unspecified vessel or [...] Description 11/11/2024 9:00 AM EDT Office Visit [facility] MEDICINE [address] [place] [address] NameMemo MD [address] [place] [address] 01/07/2025 10:30 AM EDT Telemedicine [address] [address] 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, VON documented as of this encounter Visit Diagnoses Diagnosis Coronary artery disease involving [place] heart without angina pectoris, unspecified vessel or lesion type documented in this encounter Additional Health Concerns Assessment Noted Time PHQ-9 Depression Total Score: 9 06/27/19 23 10:17 AM EST documented as of this encounter Care Teams It Application Architect Relationship Specialty Start Date End Date Memo Alex MD [address] [place] [address] PCP - General Family Medicine 08/30/15 documented as of this encounter
--- OUTSIDE RECORDS SUMMARY | 2024-10-11 15:01 | XMS_ITS | Encounter Summary ---
Author Organization [employer] Address [address] [place] [address] 7 [place] [address] Care Team Providers Care Tube Building Machine Operator Name Role Phone Name, Memo ARREDONDO Primary Care Provider [phone] Reason for Visit * Reason Comments Med Refill Encounter Details Date Type Department Care Team ([facility] st Contact Info) Description 02/03/[address] [facility] MEDICINE [address] [place], [place] [phone] Name, MD Memo [address] [place] [address] Chronic pain syndrome Social History Tobacco Use [...] Description 11/11/2024 9:00 AM EDT Office Visit [facility] MEDICINE [address] [place] [address] Name, MD Memo [address] [place] [address] 01/07/2025 10:30 AM EDT Telemedicine [facility] MEDICINE [address] [place] [address] 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, VON documented as of this encounter Visit Diagnoses Diagnosis Chronic pain syndrome documented in this encounter Additional Health Concerns Assessment Noted Time PHQ-9 Depression Total Score: 0 07/17/19 24 10:49 AM EST documented as of this encounter Care Teams Tube Building Machine Operator Relationship Specialty Start Date End Date Memo Alex MD [address] [place] [address] PCP - General Family Medicine 08/30/15 documented as of this encounter
--- OUTSIDE RECORDS SUMMARY | 2024-10-11 15:01 | XMS_ITS | Encounter Summary ---
Author Organization [employer] Address [address] [facility] 7t [place] [address] Care Team Providers Care Food Safety Specialist Name Role Phone Name, Memo ARREDONDO Primary Care Provider [phone] Reason for Visit * Reason Onset Date Comments triage 06/06/2022 Encounter Details Date Type Department Care Team ([facility] st Contact Info) Description 06/06/2022 Telephone [facility] MED[facility]INE [address] [place] [address] Name, MD Meom [address] [place] [address] triage Social History Tobacco Use Types Packs/Day [...] visit with PRIYANKA Schwab at 1115am . [facility] unable to schedule a tele [...] Description 11/11/2024 9:00 AM EDT Office Visit [address] [address] Name, MD Memo [address] [place] [address] 01/07/2025 10:30 AM EDT Telemedicine [facility] [address] [place] [address] 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 RN documented as of this encounter Visit Diagnoses Not on filedocumented in this encounter Care Teams Food Safety Specialist Relationship Specialty Start Date End Date Name, MD Memo [address] [place] [address] PCP - General Family Medicine 08/30/15 documented as of this encounter
--- OUTSIDE RECORDS SUMMARY | 2024-10-11 15:01 | XMS_ITS | Encounter Summary ---
Author Organization [employer] Address [address] [place] [address] 7 [place] [address] Care Team Providers Care Hospice Superintendent Name Role Phone Name, Memo ARREDONDO Primary Care Provider [phone] Reason for Visit * Reason Onset Date Comments ER Follow-up 09/16/2024 Encounter Details Date Type Department Care Team ([facility] st Contact Info) Description 09/16/2024 Telephone [facility] MEDICINE [address] [place], [place] [phone] Name, MD Memo [address] [place] [address] ER Follow-up Social History Tobacco Use Types Packs/Day Years [...] encounter Miscellaneous Notes * Telephone Encounter - Lauren Pizarro RN - 09/16/2024 10:30 AM EDT Pt evaluated in [facility] ED 09/15/24 Dx: Syncope, concussion. Pt left ED AMA. Admission was recommended for further evaluation of syncopal episode. T/C to pt for status check. Pt states that his only symptom now is slight headache. Pt states that he left ED AMA because he was overwhelmed, tired and hungry after spending 6 hours there. Pt states he prefers to f/u outpatient with pcp. Reminded pt of scheduled f/u with pcp. Reviewed availability of WIC and after hrs triage. Pt agrees to f/u prn symptoms. * Telephone Encounter - Bishop Pierre - 09/16/2024 8:23 AM EDT Patient calling to report ED visit on : Date: 09/15/24 Hospital: [facility] Seen for: Concussion Symptomatic No *if yes message should go to Triage Patient advised will forward to team nurse for follow up Contact pt at [phone] documented in this encounter Plan of Treatment Upcoming Encounters Date Type Department Care Team (Late st Contact Info) Description 11/11/2024 9:00 AM EDT Office Visit [address] [address] Name, MD Memo [address] [place] [address] 01/07/2025 10:30 AM EDT Telemedicine [address] [address] 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, VON documented as of this encounter Visit Diagnoses Not on filedocumented in this encounter Additional Health Concerns Assessment Noted Time PHQ-9 Depression Total Score: 0 07/17/19 24 10:49 AM EST documented as of this encounter Care Teams Hospice Superintendent Relationship Specialty Start Date End Date Name, MD Memo [address] [place] [address] PCP - General Family Medicine 08/30/15 documented as of this encounter
--- OUTSIDE RECORDS SUMMARY | 2024-10-11 15:01 | XMS_ITS | Patient Health Record ---
Author Organization [facility] Address [address] [facility] [place] [address] Care Team Providers Care Ceramics Engineer Name Role Phone Name Memo ARREDONDO Primary Care Provider Rolly Manzanares Unavailable [phone] Allergies Allergen (clinical drug ingredient) Drug/Non Drug [...] W/U Status Risk Notes Problem Atherosclerosis of s[place]qualmie arteries of the extremities ([id number]) Atherosclerosis of [place] artery of both lower extremities, with unspecified presence of clinical manifestation (I70.203) Active confirmed Vital Signs Blood pressure diastolic 70 mm Hg 09/07/2024 Height 5 ft 11 in in 09/07/2024 Blood pressure systolic 120 mm Hg 09/07/2024 Weight 210 lbs 09/07/2024 BMI 29.29 kg/m2 09/07/2024 Procedures Procedure Date Ordered Date Performed Result Body Sit e 59277-Vufcogib Plate 09/07/2024 N/A Encounters Encounter Location Date Provider Diagnosis [facility] [address] [place] [address] 09/07/2024 Rollybreanna HillVirgil Ingrown nail L60.0 ; Cellulitis of toe of left foot L03.032 and Atherosclerosis of [place]qual[place] artery of both lower extremities, with unspecified presence of clinical manifestation I70.203 Assessments Encounter Date Diagnosis (ICD Code) Assessment Notes Treatment Notes Treatment Clinical Notes Section Notes 09/07/2024 Ingrown nail (ICD-10 - L60.0) 09/07/2024 Cellulitis of toe of left foot (ICD-10 - L03.032) 09/07/2024 Atherosclerosis of [place]qualmie artery of both lower extremities, with unspecified presence of clinical manifestation (ICD-10 - I70.203) Plan Of Treatment Pending Test Test Name Order Date X ray : Foot, left 3V 01/23/2022 X ray : Foot, left 3V 11/29/2022 55662-NQTXLTR NAIL, 6 OR MORE 02/25/2023 23824-EVVDYWQ NAIL, 6 OR MORE 11/29/2022 50332-YLXKEDR NAIL, 6 OR MORE 07/22/2023 76105-PIGLLWU NAIL, 6 OR MORE 03/05/2022 73989-ZUESZYU NAIL, 6 OR MORE 05/28/2022 39649-OGWHVOR NAIL, 6 OR MORE 08/27/2022 08541-Nmtxmlye Plate 05/28/2022 31196-Rxazzenv Plate 09/07/2024 07808- Debride <25 sq cm 01/23/2022 39774 I&D ABSCESS- SIMPLE,SINGLE 022 86539-BBQE SKIN LESIONS, 2 TO 4 08/28/19 23 70803-QYED SKIN LESIONS, 2 TO 4 05/28/20 22 74114-TNME SKIN LESIONS, 2 TO 4 07/22/19 24 03487-FQBL SKIN LESIONS, 2 TO 4 11/30/19 23 33517-YFZB SKIN LESIONS, 2 TO 4 02/26/20 23 Insurance Providers Payer Name Payer Address Payer Phone Subscriber Number Group Number Insured Name Patient Relationship to Insured Coverage Start Date Coverage End Date Medicare National Govt S[employer] [address] [facility] [place] [address] [id number] Myles Tipton Self - patient is the [...] Hospitalization History Reason Date(Month/Year) [facility]- Pacemaker 08/2024 [facility] [facility] - AFib and choke at sametime- coded 2x CPR done 2 days 06/13/2022 [facility] left knee 3 x between 5 weeks 2021 [facility] [place] -Ugent Care painful L migel Ingrown? 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
--- OUTSIDE RECORDS SUMMARY | 2024-10-11 15:01 | XMS_ITS | Encounter Summary ---
Author Organization [employer] Address [address] [place] [address] 7t [place] [address] Care Team Providers Care Chinese Language Professor Name Role Phone Name, Memo ARREDONDO Primary Care Provider [phone] Encounter Details Date Type Department Care Team (Late Contact Info) Description 06/06/2022 Telephone [facility] MEDICINE [address] [place] [address] [phone] NameMemo MD [address] [place] [address] [phone] Social History Tobacco Use Types Packs/Day Years [...] Description 11/11/2024 9:00 AM EDT Office Visit [facility] [address] [place] [address] [phone] Memo Alex MD [address] [place] [address] [phone] 01/07/2025 10:30 AM EDT Telemedicine [facility] [address] [place] [address] 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, RN documented as of this encounter Visit Diagnoses Not on filedocumented in this encounter Care Teams Chinese Language Professor Relationship Specialty Start Date End Date Name, MD Memo [address] [place] [address] PCP - General Family Medicine 08/30/15 documented as of this encounter
--- OUTSIDE RECORDS SUMMARY | 2024-10-11 15:02 | XMS_ITS ---
Author Organization [facility] Address [address] [place] [address] Care Team Providers Care Disposal Man Name Role Phone Name Memo ARREDONDO Primary Care Provider Rolly Manzanares [phone] REASON FOR VISIT cx same day 09/30/23 Encounters Encounter Location Date Provider Diagnosis [facility] [address] [place] [address] 09/30/2023 Rolly Herman Plan Of Treatment No Information Progress Notes * Myles JARADOB:1955 (68 yo M)Acc No.[id number]:09/30/2023 Patient:?TobiMyles davis :1955???Age:68 Y???Sex:Male Address:[address] [place] [address], [place], [address] * true * Date:? Generated for Printi ng/Faethelg/eTransmitting on:?10/11/2024 03:01 PM EDT
--- OUTSIDE RECORDS SUMMARY | 2024-10-11 15:02 | XMS_ITS | Encounter Summary ---
Author Organization [employer] Address [address] [place] [address] 7 [place] [address] Care Team Providers Care Replacer Name Role Phone Name, Memo ARREDONDO Primary Care Provider [phone] Reason for Visit * Reason Comments Med Refill Encounter Details Date Type Department Care Team ([facility] st Contact Info) Description 10/25/2022 Refill [facility] MED[facility]INE [address] [place], [place] [phone] Name, MD Memo [address] [place] [address] Chronic pain syndrome Social History Tobacco Use [...] Description 11/11/2024 9:00 AM EDT Office Visit [address] [address] Name, MD Memo [address] [place] [address] 01/07/2025 10:30 AM EDT Telemedicine [address] [address] 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 RN documented as of this encounter Visit Diagnoses Diagnosis Chronic pain syndrome documented in this encounter Additional Health Concerns Assessment Noted Time PHQ-9 Depression Total Score: 9 06/27/19 23 10:17 AM EST documented as of this encounter Care Teams Replacer Relationship Specialty Start Date End Date Name, MD Memo [address] [place] [address] PCP - General Family Medicine 08/30/15 documented as of this encounter
--- OUTSIDE RECORDS SUMMARY | 2024-10-11 15:02 | XMS_ITS | Encounter Summary ---
Author Organization [employer] Address [address] [place] [address] 7 [place] [address] Care Team Providers Care Supply Chain Logistics Manager Name Role Phone Name, Memo ARREDONDO Primary Care Provider [phone] Encounter Details Date Type Department Care Team (Late Contact Info) Description 11/14/2022 [facility] [employer] [employer] [address] [place], [place] [phone] Name, MD Memo [address] [place], [place] [phone] Social History Tobacco Use Types Packs/Day Years [...] Department Care Team (Late Contact Info) Description 11/11/2024 9:00 AM EDT Office Visit [facility] MEDICINE [address] [place], [place] [phone] Name, [place] [address] 01/07/2025 10:30 AM EDT Telemedicine [facility] MED[facility]INE [address] [place] [address] Shahla Wseton, RN documented as of this encounter Visit Diagnoses Not on filedocumented in this encounter Additional Health Concerns Assessment Noted Time PHQ-9 Depression Total Score: 9 06/27/19 23 10:17 AM EST documented as of this encounter Care Teams Supply Chain Logistics Manager Relationship Specialty Start Date End Date Name, MD Memo [address] [place] [address] PCP - General Family Medicine 08/30/15 documented as of this encounter
--- OUTSIDE RECORDS SUMMARY | 2024-10-11 15:02 | XMS_ITS | Encounter Summary ---
Author Organization [employer] Address [address] [place] [address] 7 [place] [address] Care Team Providers Care Dialysis Nurse Name Role Phone Name, Memo ARREDONDO Primary Care Provider [phone] Reason for Visit * Reason Comments Med Refill Encounter Details Date Type Department Care Team ([facility] st Contact Info) Description 03/23/2024 Refill [facility] MEDICINE [address] [place], [place] [phone] Name, MD Memo [address] [place] [address] Social History Tobacco Use Types Packs/Day Years [...] Description 11/11/2024 9:00 AM EDT Office Visit [facility] MED[facility]INE [address] [place] [address] Name, MD Memo [address] [place] [address] 01/07/2025 10:30 AM EDT Telemedicine [address] [address] 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, VON documented as of this encounter Visit Diagnoses Not on filedocumented in this encounter Additional Health Concerns Assessment Noted Time PHQ-9 Depression Total Score: 0 07/17/19 24 10:49 AM EST documented as of this encounter Care Teams Dialysis Nurse Relationship Specialty Start Date End Date Memo Alex MD [address] [place] [address] PCP - General Family Medicine 08/30/15 documented as of this encounter
--- OUTSIDE RECORDS SUMMARY | 2024-10-11 15:02 | XMS_ITS | Clinical Summary ---
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 (CMS/HCC) PLACE 1 TABLET UNDER THE TONGUE EVERY 5 MINUTES IF NEEDED FOR CHEST PAIN 90 tablet 2 024 Active Aspirin Low Dose 81 MG EC tabletIndicatio ns:Coronary artery disease involving tribal heart without angina pectoris, unspecified vessel or lesion type TAKE 1 TABLET BY MOUTH EVERY MORNING 90 tablet 1 024 Active Multiple Vitamin (One-Daily Multi-Vitamin) tablet TAKE 1 TABLET BY MOUTH EVERY MORNING 90 tablet 1 024 Active ranolazine (Ranexa) 1000 MG 12 hr tablet TAKE 1 TABLET BY MOUTH TWICE DAILY IN THE MORNING AND IN THE EVENING 180 tablet 2 025 Active oxyCODONE (Roxicodone) 10 MG immediate release tabletIndicatio ns:Chronic pain syndrome Take 1 tablet (10 mg) by mouth See administration instructions. One tablet every 5 to 6 hours as needed for pain. 140 tablet 025 Active cyclobenzaprine (Flexeril) 10 MG tabletIndicatio ns:Choking, subsequent encounter TAKE 1 TABLET BY MOUTH TWICE A DAY 60 tablet 025 Active rosuvastatin (Crestor) 40 MG tablet TAKE 1 TABLET BY MOUTH EVERY EVENING 90 tablet 1 025 Active ezetimibe (Zetia) 10 MG tablet TAKE 1 TABLET BY MOUTH EVERY EVENING 90 tablet 1 025 Active divalproex (Depakote ER) 250 MG 24 hr tablet TAKE 1 TABLET BY MOUTH AT BEDTIME 30 tablet 5 025 Active lisinopril 5 MG tablet TAKE 1 TABLET BY MOUTH EVERY MORNING 90 tablet 1 025 Active lisinopril 5 MG tablet TAKE 1 TABLET BY MOUTH EVERY MORNING 30 tablet 11 024 2024 Discontinued divalproex (Depakote ER) 250 MG 24 hr tablet TAKE 1 TABLET BY MOUTH AT BEDTIME 30 tablet 5 024 2024 Discontinued ezetimibe (Zetia) 10 MG tablet TAKE 1 TABLET BY MOUTH EVERY EVENING 90 tablet 025 2024 Discontinued rosuvastatin (Crestor) 40 MG tablet TAKE 1 TABLET BY MOUTH EVERY EVENING 90 tablet 025 2024 Discontinued cyclobenzaprine (Flexeril) 10 MG tabletIndicatio ns:Choking, subsequent encounter TAKE 1 TABLET BY MOUTH TWICE A DAY 60 tablet 025 2024 Discontinued(R eorder (will not trigger notification to Pharmacy)) oxyCODONE (Roxicodone) 10 MG immediate release tabletIndicatio ns:Chronic pain syndrome Take 1 tablet (10 mg) by mouth See administration instructions. One tablet every 5 to 6 hours as needed for pain. Do not start before September 03, 2024. 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 02/24/2018 Overview [...] artery disease of n ative artery of tribal heart with stable angina pectoris 09/04/2015 Radicular [...] 01/24/2015 Coronary artery stenosis 07/13/2014 Overview (05/14/2022): [place] Coronary Artery Stenosis Benign essential hypertension 07/13/2014 [...] Encounters Date Type Department Care Team Description 10/03/2024 Refill [facility] MEDICINE [address] [place] [address] Memo Alex MD 09/30/2024 Refill [facility] MED & PEDS [address] [place] [address] Memo Alex MD Choking, subsequent encounter 09/29/2024 Telephone [facility] MED & PEDS [address] [place] [address] Memo Alex MD Med Refill 09/24/2024 Telephone [facility] MEDICINE [address] [place] [address] Memo Alex MD Med Refill 09/16/2024 Telephone [facility] MEDICINE [address] [place] [address] Memo Alex MD ER Follow-up 09/15/2024 Orders Only GENERIC EXTERNAL DATA DEPARTMENT Provider, Generic External Data 09/02/2024 Orders Only GENERIC EXTERNAL DATA DEPARTMENT Provider, Generic External Data 09/02/2024 Refill [facility] MED [facility]ED[facility] [address] [place] [address] Elaine Burden RN Chronic pain syndrome 09/02/2024 Telephone [facility] MEDICINE [address] [place] [address] Name, MD Memo Med Refill (Patient is requesting med refill for oxycodone. Patient stated he doesn't have any for tomorrow ) 09/01/2024 Refill [facility] [address] [facility] [place] [address] NameMemo MD 08/30/2024 Refill [facility] MEDICINE [address] [place] [address] Name, MD Memo Chronic pain syndrome 08/27/2024 Refill [facility] [address] [place] [address] Name, MD Memo Choking, subsequent encounter 08/20/2024 Population Health Risk Score [facility] () Department [address] [place] [phone] Provider, Population Health Generic 08/09/2024 Telephone [facility] MEDICINE [address] [place] [address] Allison Powers MA September recalls 08/06/2024 10:00 AM EST Telemedicine [facility] MEDICINE [address] [place] [address] 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 RN Chronic right shoulder pain 08/06/2024 Refill [facility] MEDICINE [address] [place] [address] 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 RN Chronic pain syndrome 08/06/2024 Travel from Last 3 Months Immunizations Name Administration [...] Description 11/11/2024 9:00 AM EDT Office Visit [facility] MEDICINE [address] [place] [phone] Name, MD Memo [address] [place] [phone] 01/07/2025 10:30 AM EDT Telemedicine [facility] MEDICINE [address] [place] [phone] 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, VON Health Maintenance Due Date Last Done Comments [...] Cancer Screening 09/03/2027 Lipid Panel 01/01/2029 01/02/2024, 06/2023, 01/17/2022, Additional history exists DTaP/Tdap/Td Vaccines [...] Comments CT ABDOMEN PELVIS W CONTRAST Routine 09/15/2024 7:40 PM EDT URINALYSIS, COMPLETE, WITH REFLEX TO CULTURE Routine 09/15/2024 6:25 PM EDT PROTHROMBIN TIME-INR Routine 09/15/2024 5:31 PM EDT [...] 08/04/2024 12:57 PM EST Abdominal pain, LLQ LIPID PANEL, STANDARD Routine 01/02/2024 6:36 AM EDT HEPATITIS PANEL, GENERAL Routine 09/01/2023 11:55 AM EDT LLQ abdominal pain Encounter for screening for other viral diseases HM COLONOSCOPY Routine 03/04/2023 from Last 3 Months or Most Recently Relevant to Health Maintenance Results * CT Abdomen Pelvis w/ Contrast (09/15/2024 7:40 PM EDT) Only the most recent of2 resultswithin the time period is included. Anatomical Region Laterality Modality Body, Pelvis, Abdomen Computed T omography 09/15/2024 7:40 PM EDT Narrative 09/15/2024 7:41 PM EDT ? [facility] ?[address] ?[place] [address] ? CT Scan Report ? Signed ? Patient: Ommerle,Peter ?MR#: [id number] ?? 5 ? : 1955 ?Acct:[id number] ? Age/Sex: 69 / M ?ADM Date: 09/15/24 ? Loc: HO.ED ? Attending Dr: ? Ordering Physician: Julienne Kinsey CNP ?? Date of Service: 09/15/24 ?? Procedure(s): CT abdomen pelvis w IV con ?? Accession Number(s): [id number] ? cc: Julienne Kinsey CNP; Name,Memo ARREDONDO ? Report Number: ?? [id number]: Total DLP = ??591.00 mGy-cm ? CLINICAL HISTORY: fall, LLQ ABD pain nausea, +eliquis ? CT abdomen and pelvis with contrast ? Comparison: CT/SR - CT ABDOMEN PELVIS W IV CON - 08/04/24 09:23 EST ? Findings: ?? Focal area of hyper lucency in the medial right lung base, similar to ?? prior. Lungs are clear. ? Intrahepatic and extrahepatic mild biliary dilatation is present, ?? Unchanged from prior. Gallbladder is absent. ?? Moderate calcified and noncalcified plaque of the abdominal aorta. Spleen, ?? adrenal glands, pancreas are unremarkable. Kidneys enhance symmetrically ?? and there is no hydronephrosis. ?? Circumferential mild wall thickening in the hepatic flexure, series 7, ?? image 108, which is new in comparison to prior. Large volume of fecal ?? loading within the colon. ?? No bowel obstruction, pneumoperitoneum, or pneumatosis. ?? Appendix not visualized. Urinary bladder is normal. Prostatomegaly ?? present. ?? There is a right hip total arthroplasty in anatomic alignment. ?? No lytic or blastic bone lesions. Degenerative changes of the lumbar spine ?? are present. ?? The bones are intact. ? IMPRESSION: ?? 1. Circumferential area of mild wall thickening in the hepatic flexure of ?? the colon is most likely a focal area of bowel contraction, less likely ?? colonic mass or malignancy, given the rapidity of onset from prior. ?? 2. Large amount of fecal loading within the colon. ? This document has been electronically signed by: Abdon Montes De Oca MD on ?? 09/15/2024 19:40:05 ? Dictated By: ?Abdon Montes De Oca MD ? Signed By: ?<Electronically signed by Abdon Montes De Oca MD in OV> ? 09/15/241940 ? DD/ 39 ? TD/TT: 09/15/241939 ? Chinese Language Professor: ? Procedure Note Donotuseinterpreter, Image - 09/15/[address] [address] [address] Scan Report Signed Patient: Alycia Tipton#: [id number] 5 : 3Acct:[id number] Age/Sex: 69 / MADM Date: 09/15/24 Loc: HO.ED Attending Dr: Ordering Physician: Julienne Kinsey CNP Date of Service: 09/15/24 Procedure(s): CT abdomen pelvis w IV con Accession Number(s): [id number] cc: Julienne Kinsey CNP; Name,Memo ARREDONDO Report Number: [id number]: Total DLP = 591.00 mGy-cm CLINICAL HISTORY: fall, LLQ ABD pain nausea, +eliquis CT abdomen and pelvis with contrast Comparison: CT/SR - CT ABDOMEN PELVIS W IV CON - 08/04/24 09:23 EST Findings: Focal area of hyper lucency in the medial right lung base, similar to prior. Lungs are clear. Intrahepatic and extrahepatic mild biliary dilatation is present, Unchanged from prior. Gallbladder is absent. Moderate calcified and noncalcified plaque of the abdominal aorta. Spleen, adrenal glands, pancreas are unremarkable. Kidneys enhance symmetrically and there is no hydronephrosis. Circumferential mild wall thickening in the hepatic flexure, series 7, image 108, which is new in comparison to prior. Large volume of fecal loading within the colon. No bowel obstruction, pneumoperitoneum, or pneumatosis. Appendix not visualized. Urinary bladder is normal. Prostatomegaly present. There is a right hip total arthroplasty in anatomic alignment. No lytic or blastic bone lesions. Degenerative changes of the lumbar spine are present. The bones are intact. IMPRESSION: 1. Circumferential area of mild wall thickening in the hepatic flexure of the colon is most likely a focal area of bowel contraction, less likely colonic mass or malignancy, given the rapidity of onset from prior. 2. Large amount of fecal loading within the colon. This document has been electronically signed by: Abdon Montes De Oca MD on 09/15/2024 19:40:05 Dictated By: Abdon Montes De Oca MD Signed By: <Electronically signed by Abdon Montes De Oca MD in OV> 09/15/241940 DD/ 39 TD/TT: 09/15/241939 Chinese Language Professor: [facility] External Provider IMG CT PROCEDURES Edited Result - Final * (ABNORMAL) Urinalysis, Complete, with Reflex to Culture (09/15/2024 6:25 PM EDT) Color Urine Yellow [facility] Appearance Urine Clear [facility] PH 5.5 5.0 - 9.0 [facility] Glucose Urine UA Negative Negative mg/dL [facility] Urine Blood Negative Negative [facility] Specific [place] - Urine 1.020 1.005 - 1.025 [facility] Urine Protein Negative Neg-Trace mg/dL [facility] Urine Ketones Negative Negative mg/dL [facility] Nitrite Urine Negative Negative [facility] Leukocyte Esterase Urine Trace(A) Negative [facility] RBC Urine 0-2 0 - 2 /HPF [facility] Urine WBC 0-5 0 - 5 /HPF [facility] Urine Squamous Epithelial Cell 0-2 0 - 2 /HPF [facility] Urine Bacteria None Seen None Seen [facility] Hyaline Casts, Urine 0-2 0 - 2 /LPF [facility] 09/15/2024 6:25 PM EDT 09/15/2024 6:28 PM EDT Narrative [facility] - 09/15/2024 6:37 PM EDT Urine, Clean Catch Generic External Data Provider LAB URINE ORDERAB LES Final Result Performing Organization Address [facility] de Phone Number [facility] [address] [place] [phone] * (ABNORMAL) Prothrombin Time-INR (09/15/2024 5:31 PM EDT) Prothrombin Time 10.4(L) 10.9 - 12.4 SEC [facility] INTERNATIONAL NORM RATIO 0.9 0.9 - 1.1 [facility] Comment:INTERNATIONAL NORMAL IZED RATIO (INR) [...] ORDERAB LES Final Result Performing Organization Address [facility] Phone Number [facility] [address] [place] [phone] * High Sensitivity Troponin I (09/15/2024 4:20 PM EDT) TROPONIN I HIGH SENSITIVITY <2.7 <3.5 - 35.0 ng/L [facility] Comment:The Paula high sens itivity Troponin-I results should beused in conjunction with other diagnostic information suchas ECG, clinical observations and information, and patientsymptoms to aid in the diagnosis of NM. 09/15/2024 4:20 PM EDT 09/15/2024 4:24 PM EDT Generic External Data Provider LAB BLOOD ORDERAB LES Final Result Performing Organization Address [facility] Co de Phone Number [facility] [address] [place] [address] [place] [phone] * (ABNORMAL) CBC auto differential (09/15/2024 4:20 PM EDT) White Blood Count 9.7 4.8 - 10.8 X10*3/uL [facility] Red Blood Count 4.45(L) 4.60 - 5.80 X10*6/uL [facility] Hemoglobin 13.6(L) 14.0 - 18.0 g/dl [facility] Hematocrit 39.0(L) 42.0 - 52.0 % [facility] Mean Corpuscular Volume 87.6 80.0 - 98.0 fL [facility] Mean Corpuscular Hemoglobin 30.6 27.0 - 33.0 pg [facility] Mean Corpuscular HGB Conc 34.9 31.0 - 36.0 g/dl [facility] Red Cell Distribution Width 13.0 11.0 - 16.0 % [facility] Platelet Count 288 160 - 400 X10*3/uL [facility] Mean Platelet Volume 8.4(L) 9.4 - 12.4 fL [facility] Neutrophils Percent Auto 64.0 45 - 73 % [facility] Imm Gran Pct Auto 0.5(H) 0.0 - 0.4 % [facility] Lymphocytes Percent Auto 24.1 20 - 40 % [facility] Monocytes Percent Auto 7.2 2 - 11 % [facility] Eosinophils Percent Auto 3.6 0 - 4 % [facility] Basophils Percent Auto 0.6 0 - 2 % [facility] NRBC Pct Auto 0.0 0.0 - 0.2 /100WBC [facility] Neutrophils Absolute Auto 6.2 2.0 - 8.3 x10*3/uL [facility] Imm Gran Abs Auto 0.05(H) 0.00 - 0.03 X10*3/uL [facility] Lymphocytes Absolute Auto 2.3 1.2 - 4.9 X10*3/uL [facility] Monocytes Absolute Auto 0.7 0.1 - 1.2 X10*3/uL [facility] Eosinophils Absolute Auto 0.4 0.0 - 0.4 X10*3/uL [facility] Basophils Absolute Auto 0.1 0.0 - 0.2 X10*3/uL [facility] NRBC Abs Auto 0.000 0.0 - 0.012 X10*3/uL [facility] 09/15/2024 4:20 PM EDT 09/15/2024 4:24 PM EDT us Generic External Data Provider LAB BLOOD ORDERAB LES Final Result Performing Organization Address [facility]/ZIP Co de Phone Number [facility] [address] [place] [phone] * Lipase (09/15/2024 4:20 PM EDT) Pathologist [facility] Lipase 15 8 - 78 U/L [facility] 09/15/2024 4:20 PM EDT 09/15/2024 4:24 PM EDT Generic External Data Provider LAB BLOOD ORDERAB LES Final Result Performing Organization Address [facility] Co de Phone Number [facility] [address] [place] [phone] * (ABNORMAL) Comprehensive Metabolic Panel (09/15/2024 4:20 PM EDT) Pathologist [facility] Sodium 140 135 - 145 mmol/L [facility] Potassium 3.7 3.3 - 5.1 mmol/L [facility] Chloride 106 96 - 108 mmol/L [facility] Carbon Dioxide 26 22 - 29 mmol/L [facility] Anion Gap 12 12 - 20 [facility] Urea Nitrogen (BUN) 19(H) 9 - 16 mg/dL [facility] Creatinine, Serum 0.76 0.5 - 1.4 mg/dL [facility] Creatinine Clr Calc Pharmacy 102.6 [facility] Comment:eGFR (calculated fro m the MDRD study equation) and eCrCl(calculated from the Cockcroft-Gault equation) are based ondifferent parameters and may not yield comparable results.If eCrCl result is absurd, please check patient'sheight/weight. Estimated Glomerular Filt Rate >60 [facility] Comment:Chronic Kidney Disea se: Estimated GFR < 60 mL/min/[id number] Kidney Disease: Estimated GFR < 15 mL/min/1.73m2 Glucose 142(H) 60 - 115 mg/dL [facility] Calcium 8.8 8.4 - 10.2 mg/dL [facility] Bilirubin, Total 0.2 0.0 - 1.0 mg/dL [facility] Aspartate Amino Transferase 19 5 - 37 U/L [facility] Alanine Aminotransferase 9 0 - 40 U/L [facility] Total Protein 6.8 6.5 - 8.0 g/dL [facility] Albumin Level 3.9 3.5 - 5.0 g/dL [facility] Alkaline Phosphatase 86 39 - 117 U/L [facility] 09/15/2024 4:20 PM EDT 09/15/2024 4:24 PM EDT us Generic External Data Provider LAB BLOOD ORDERAB LES Final Result [facility] [address] [place] [phone] * XR Chest 2 Views (09/15/2024 3:59 PM EDT) Anatomical Region Laterality Modality Chest Radiographic Nilda ging 09/15/2024 3:59 PM EDT Narrative 09/15/2024 4:52 PM EDT ? [facility] ?[address] ?[place] [address] ?XRay Report ? Signed ? Patient: Ommerle,Peter ?MR#: [id number] ?? 5 ? : 1955 ?Acct:[id number] ? Age/Sex: 69 / M ?ADM Date: 04/09/25 ? Loc: HO.ED ? Attending Dr: ? Ordering Physician: Arsh Savage ?? Date of Service: 09/15/24 ?? Procedure(s): XR chest 2V ?? Accession Number(s): [id number] ? cc: Name,Memo ARREDONDO; Arsh Savage ? [...] DD/ 1559 ? TD/TT: 09/15/24 1637 ? Chinese Language Professor: ? Procedure Note Gage, [place] - 09/15/[address] [address] XRay Report Signed Patient: Alycia Tipton#: [id number] 5 : 3Acct:[id number] Age/Sex: 69 / MADM Date: 09/15/24 Loc: HO.ED Attending Dr: Ordering Physician: Arsh Savage Date of Service: 09/15/24 Procedure(s): XR chest 2V Accession Number(s): [id number] cc: Name,Memo ARREDONDO; Arsh Savage EXAMINATION: XR CHEST CLINICAL INFORMATION: [...] Vick Koo MD 09/15/2024 04:49 PM EDT RP Dictated By: Vick Koo MD Signed By: <Electronically signed by Vick Koo MD in OV> 09/15/24 1649 DD/ 1559 TD/TT: 09/15/24 1637 Chinese Language Professor: [facility] External Provider IMG XR PROCEDURES Final Result * CT Head w/o Contrast (09/15/2024 3:57 PM EDT) Anatomical Region Laterality Modality Head, Neck Computed Tomogra phy 09/15/2024 3:57 PM EDT Narrative 09/15/2024 4:22 PM EDT ? [facility] ?[address] ?[place] [address] ? CT Scan Report ? Signed ? Patient: Myles Tipton ?MR#: [id number] ?? 5 ? : 1955 ?Acct:[id number] ? Age/Sex: 69 / M ?ADM Date: 09/15/24 ? Loc: HO.ED ? Attending Dr: ? Ordering Physician: Arsh Savage ?? Date of Service: 09/15/24 ?? Procedure(s): CT head/brain wo IV con ?? Accession Number(s): [id number] ? cc: Name,Meom ARREDONDO; Hussein,Arsh ? Report Number: ?? [id number]: Total DLP = ??653.00 mGy-cm ?? EXAMINATION: [...] DD/ 1557 ? TD/TT: 09/15/24 1612 ? Chinese Language Professor: ? Procedure Note Gage, Image - 09/15/[address] [address] [address] Scan Report Signed Patient: Myles TiptonMR#: [id number] 5 : 1955cct:[id number] Age/Sex: 69 / MADM Date: 09/15/24 Loc: HO.ED Attending Dr: Ordering Physician: Arsh Savage Date of Service: 09/15/24 Procedure(s): CT head/brain wo IV con Accession Number(s): [id number] cc: Name,Memo ARREDONDO; Arsh Savage Report Number: [id number]: Total DLP = 653.00 mGy-cm EXAMINATION: CT [...] 09/15/24 1619 DD/ 1557 TD/TT: 09/15/24 1612 Chinese Language Professor: [facility] External Provider IMG CT PROCEDURES Final Result * Hematoxylin and Eosin Stain (09/02/2024 7:49 AM EDT) 09/02/2024 7:49 AM EDT 09/02/2024 8:36 AM EDT [facility] - 09/03/2024 4:50 PM EDT ----- ------- Name: Myles Tipton ?Age/Sex: 69/M ? : 1955 Unit#: [id number] ?? Attend Dr: Nathalia Garza MD ?Re09/02/24 ?Status: DEP SDC ? Location: HO.SSS ?Disch: ? ----- ------- SPEC : [id number] ? RECD: 09/02/24 ? STATUS: ??SOUT ? REQ NUM: [id number] ? TRACY: 09/02/24 ? SUBM DR: Nathalia Garza MD ? ENTERED: ??09/02/24 ?SP TYPE: Surgical ? OTHR : Memo Alex MD ? ORDERED: ??HE Stain/, Gross Micro L4/8 ? Diagnosis ?? A. [...] Tipton ?Age/Sex: 69/M ? : 1955 Unit#: [id number] ?? Attend Dr: Nathalia Garza MD ?Re09/02/24 ?Status: DEP SDC ? Location: HO.SSS ?Disch: ? ----- ------- SPEC : [id number] ? RECD: 09/02/24-835 ? STATUS: ??SOUT ? REQ NUM: [id number] ? TRACY: 09/02/24 ? SUBM DR: Nathalia Garza MD ? ENTERED: ??09/02/24 ?SP TYPE: Surgical ? OTHR DR: Memo Alex MD ? ORDERED: ??HE Stain/24, Gross Micro L4/8 ? Gross Description Received [...] Copies To: ?? Nathalia Garza MD ?? [facility] ?? [address] ?? [place] [address] ?? [phone] ?? Name,Memo ARREDONDO ?? [address] [facility] ?? [place] ?? [phone] ? CONTINUED ON NEXT PAGE ----- ------- Name: Myles Tipton ?Age/Sex: 69/M ? : 1955 Unit#: [id number] ?? Attend Dr: Nathalia Garza MD ?Re09/02/24 ?Status: DEP LAC ? Location: HO.SSS ?Disch: ? ----- ------- SPEC : [id number] ? RECD: 09/02/24 ? STATUS: ??SOUT ? REQ NUM: [id number] ? TRACY: 09/02/24 ? SUBM DR: Nathalia Garza MD ? ENTERED: ??09/02/24 ?SP TYPE: Surgical ? OTHR : Memo Alex MD ? ORDERED: ??HE , Gross Micro L4/8 ? ----- ------- Signed (signature on file) Fuad Willson MD 09/03/24 9820 ? ----- ------- ? END OF REPORT ? Generic External Data Provider LAB BLOOD ORDERAB LES Final Result Performing Organization Address [facility] de Phone Number [facility] [address] [place] [address] [phone] * Lipid Panel, Standard (01/02/2024 6:36 AM EDT) Triglycerides 112 <150 mg/dL [facility] Comment:Desirable Triglyceri de: less than 150 mg/dLBorderline High Triglyceride 150-199 mg/dLHigh Triglyceride: 200-499 mg/dLVery High Triglyceride: greater than or equal to 5OO mg/dL Cholesterol 154 <200 mg/dL [facility] Comment:Desirable Cholestero l: less than 200 mg/dLBorderline High Cholesterol: 200-239 mg/dLHigh Cholesterol: greater than 239 mg/dL LDL Cholesterol Calculated 83 <100 mg/dL [facility] Comment:Desirable LDL: less than 100 mg/dLNear Optimal/Above Optimal LDL: 110- 129 mg/dLBorderline High LDL: 130-159 mg/dLHigh LDL: 160-189 mg/dLVery High LDL: greater than or equal to 190 mg/dL HDL Cholesterol 49 >40 mg/dL [facility] Comment:Desirable HDL: great er than 40 mg/dL Note: This HDL assay may give artificially low results in patients with liver disease. 01/02/2024 6:36 AM EDT 01/02/2024 6:36 AM EDT Generic External Data Provider LAB BLOOD ORDERAB LES Final Result Performing Organization Address [facility] de Phone Number [facility] [address] [place] [address] [phone] * Hepatitis Panel, General (09/01/2023 11:55 AM EDT) Hepatitis A IgM Nonreactive Nonreactive [facility] Comment:IgM antibodies to LANDEROS V not detected; does not exclude earlyacute or recovered HAV infection. ~Hepatitis B Surface Antibody REACTIVE Nonreactive [facility] Comment:REACTIVE: > 11.99 mI U/mL Hepatitis B Core Antibody Nonreactive Nonreactive [facility] Hepatitis C Antibody Nonreactive Nonreactive [facility] Comment:Antibodies to HCV no t detected; does not exclude early acuteHCV infection. Hepatitis B Surface Ag Negative Negative [facility] Blood 09/01/2023 11:5 5 AM EDT 09/01/2023 1:48 PM EDT Sonia Ladd AUTO FLEET MAINTENANCE MANAGER LAB BLOOD ORDERABLES Final Res ult [facility] [address] [place] [phone] * Colonoscopy (03/04/2023) Colonoscopy Normal Normal Comment:Negative result, Rep eat in 3-5 years us Memo Name HEALTH MAINTENANCE Final Result from Last 3 Months or Most Recently Relevant to Health Maintenance Insurance [facility] STANDARD MEDICARE Care Teams Keno Attendant Relationship Specialty Start Date End Date Name, MD Memo [address] [place] [address] PCP - General Family Medicine 08/30/15
--- OUTSIDE RECORDS SUMMARY | 2024-10-11 15:02 | XMS_ITS | Encounter Summary ---
Author Organization [employer] Address [address] [place] [address] 7 [place] [address] Care Team Providers Care Sewing Machine Mechanic Name Role Phone Name, Memo ARREDONDO Primary Care Provider Reason for Visit * Reason Onset Date Comments Error 03/25/2024 Encounter Details Date Type Department Care Team ([facility] Contact Info) Description 03/25/2024 Telephone [facility] [address] [place], [place] [phone] Name, MD Memo [address] [place] [address] Error Social History Tobacco Use Types Packs/Day [...] Description 11/11/2024 9:00 AM EDT Office Visit [facility] [address] [place] [phone] Name, MD Memo [address] [place] [address] 01/07/2025 10:30 AM EDT Telemedicine [facility] [address] [place] [phone] 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 RN documented as of this encounter Visit Diagnoses Not on filedocumented in this encounter Additional Health Concerns Assessment Noted Time PHQ-9 Depression Total Score: 0 07/17/19 24 10:49 AM EST documented as of this encounter Care Teams Sewing Machine Mechanic Relationship Specialty Start Date End Date NameMemo MD [address] [place] [id number] PCP - General Family Medicine 08/30/15 documented as of this encounter
== END 2024-10-11 14:32 | disposition home or self-care (01) ==
LOC: HO.HCS 13:33
PROVIDERS: PCP Internal Medicine Geriatric Medicine; Visit Provider Nurse Practitioner Family
DX: I25.10 Atherosclerotic heart disease of native coronary artery without angina pectoris (principal); Z95.0 Presence of cardiac pacemaker; I49.5 Sick sinus syndrome; I48.0 Paroxysmal atrial fibrillation; Z79.01 Long term (current) use of anticoagulants; Z98.890 Other specified postprocedural states; R55 Syncope and collapse
CPT/HCPCS: 93280; 99214; G2211

== ENCOUNTER → 2024-10-11 13:32 | Outpatient (BNVA) | payer MEDICARE, MEDICAID, SELFPAY | PROVIDERS: PCP Internal Medicine Geriatric Medicine; Visit Provider Nurse Practitioner Family | DX: Z45.018 Encounter for adjustment and management of other part of cardiac pacemaker (principal); I25.10 Atherosclerotic heart disease of native coronary artery without angina pectoris; I49.5 Sick sinus syndrome; I48.0 Paroxysmal atrial fibrillation; R55 Syncope and collapse; Z79.01 Long term (current) use of anticoagulants; Z98.890 Other specified postprocedural states | CPT/HCPCS: 93280; 99212 ==

== ENCOUNTER → 2024-10-24 23:59 | Outpatient (BNV) | payer MEDICARE, MEDICAID, SELFPAY ==
--- NOTE | 2024-10-25 19:34 | A.OFFVIS_ITS ---
Intake Visit Reasons: Remote Device Check- [facility] Allergies bee pollen [BEE STINGS] Allergy (Severe, Verified 10/11/24 14:01) ANAPHYLAXIS indomethacin [Indocin] Allergy (Severe, Verified 10/11/24 14:01) anaphylaxis tramadol [Ultram] Allergy (Severe, Verified 10/11/24 14:01) anaphylaxis fentanyl Adverse Reaction (Intermediate, Verified 10/11/24 14:01) Anxiety [facility] Medical History (Updated 10/11/24 @ 16:27 by JANETH Art) Nicotine dependence, cigarettes, uncomplicated Elevated cholesterol History of chemotherapy Obstructive sleep apnea (~2018) On anticoagulant therapy DVT (deep venous thrombosis) Essential hypertension Tubular adenoma of colon COVID-19 vaccine administered Seizures (~04/2020) GERD (gastroesophageal reflux disease) Esophagitis Atherosclerotic cardiovascular disease Psychotic disorder Syncope Headache Myocardial infarction Pacemaker (~05/2013) Tremor Brain bleed CAD (coronary artery disease) Surgical History Hx of shoulder surgery History of total left knee replacement History of ERCP History of spinal surgery History of colonoscopy (~09/2020) History of right knee surgery (~12/2013) History of total right hip replacement (~06/2012) History of cholecystectomy History of cardiac catheterization History of permanent cardiac pacemaker placement (~05/2013) History of esophagogastroduodenoscopy (EGD) (~09/2020) History of appendectomy Stented coronary artery Family History Father Heavy cigarette smoker Throat cancer Mother Heart disease Social History Household Members: None Household Members Other:: shares house with a friend Housing: House Are you a primary memory care program director to a significant other at home: No Do you presently have visiting nurse or other home services: No Alcohol intake: never Comment: resting eyes closed Patient Tobacco Use Status: Current someday Tobacco user Tobacco use type: Cigarette Years Smoked: 8 +/- e-Cigarette/Vaping Use: Never Used Second Hand Smoke Exposure: No Advance Directives Date on File: 12/16/20 service: No Current occupational status: employed and retired Office Procedures Cardiac Device Check Cardiac Device Check Details: Date of service- 10/24/2024 ; Battery life >10 years; normal lead parameters; AP 48%; SALES AND MARKETING ANALYST<1 %; Brief AT/AF. Overall normal device function. 68490-Bvkgcm Cardiac Device Interrogation, pacemaker Procedure code (CPT) selection complete Assessment & Plan Assessment & Plan (1) Pacemaker: Onset Date: ~05/2013 Comment: ([facility] DCPP, placed 2012 - device interrogation 08/30/20) Code(s): Z95.0 - Presence of cardiac pacemaker Category: Medical (2) PAF (paroxysmal atrial fibrillation): Code(s): I48.0 - Paroxysmal atrial fibrillation Category: Medical Plan x Coding Level of Care Code Procedure Only Diagnoses Pacemaker Z95.0 PAF (paroxysmal atrial fibrillation) I48.0 CPT Codes Cardiac Device Check - Cardiac Device 12: 31908-Rnnckx Cardiac Device Interrogation, pacemaker ([id number])
== END ==
PROVIDERS: PCP Internal Medicine Geriatric Medicine; Visit Provider Internal Medicine
DX: I48.0 Paroxysmal atrial fibrillation (principal); Z95.0 Presence of cardiac pacemaker
CPT/HCPCS: 93294

== ENCOUNTER → 2024-11-09 10:34 | Outpatient (REF) | payer MEDICARE, MEDICAID, SELFPAY ==
--- NOTE | 2024-11-09 10:37 | CA_ITS ---
Transthoracic Echocardiogram Patient (Last, First, Middle): Myles Tipton, Gender: Male Date of : 1955 Age: 69 Procedure Date: 11/09/2024 Procedure Type: Transthoracic Echocardiogram Location: OP Height: 180.34 cm Weight: 95.26 kg BSA: 2.15 m2 Heart Rate: bpm BP: 142 / 80 mmHg Adjustment Examiner: EVITA Referring MD: Andreea Briggs POWER LINEMANSarwat Symptoms: R55 - Syncope and collapse Study Quality: Adequate ECG Rhythm: Sinus Conclusions: - The left ventricular systolic function is hyperdynamic. The visually estimated ejection fraction is >70%. - No obvious valvular pathology seen on this study. Findings Left Ventricle Normal left ventricular cavity size. The left ventricular systolic function is hyperdynamic. The visually estimated ejection fraction is >70%. There is no evidence of regional wall motion abnormalities. Diastolic function is normal for age. There is mild septal asymmetric hypertrophy. Right Ventricle Normal right ventricular cavity size and systolic function. There is a pacemaker wire seen in the right ventricle. Atria Both atria are normal in size. Aortic Valve There is a normal trileaflet aortic valve. There is mild calcification of the aortic valve. There is no aortic valve stenosis. There is no aortic valve regurgitation. Mitral Valve The mitral valve appears normal. There is no mitral valve regurgitation. There is no mitral valve stenosis. Pulmonic Valve The pulmonic valve is likely normal. Tricuspid Valve There is trace tricuspid valve regurgitation. There is no evidence of pulmonary hypertension. Great Vessels The asc aorta is normal in size. Venous The inferior vena cava is normal in size and collapses greater than 50% with inspiration. Pericardium/Pleural There is no evidence of pericardial effusion. Prior Study Comparison No significant change compared to prior study dated: 07/25/2022. Recommendations, Care & Conclusions No obvious valvular pathology seen on this study. Measurements 2D Linear Measurements IVSd: 1.28 0.6-0.9/0.6-1.0 cm LVIDd: 4.90 3.9-5.3/4.2-5.9 cm LVIDd Index: 2.28 2.4-3.2/2.2-3.1 cm/m2 LVIDs: 3.03 2.0-3.6 cm LVPWd: 0.90 0.7-1.1 cm LA Diam: 4.10 2.7-3.8/3.0-4.0 cm LAIDs Index: 1.91 1.5-2.3 cm/m2 LV Mass: 246.11 67-162/88-224 g LV Mass Index: 114.47 43-95/49-115 g/m2 LVOT Diam: 2.20 3.0+(-)1.3 cm 2D Systolic Function EF 4C: 62.60 >55% EF 2C: 56.80 >55% EF BiP: 61.00 >55% Mitral Valve MV Pk E: 0.68 MV PK A: 0.62 MV Decel Time: 293.00 E/A: 1.10 E'Lateral: 9.46 E'Medial: 5.22 E/E' Med: 13.00 E/E' Lat: 7.20 PHT: 86.00 MVA PHT: 2.56 Decel Clare: 2.32 Aortic Valve AoV Pk Tra: 1.87 AoV Mn Tra: 1.21 AoV VTI: 0.34 AoV Pk Grad: 14.00 Aov Mn Grad: 7.00 HAILEY Cont.VTI: 2.99 LVOT LVOT Pk Tra: 1.52 LVOT Mn Tra: 1.01 LVOT VTI: 0.27 LVOT Pk Grad: 9.00 LVOT Mn Grad: 5.00 LVOT Diam: 2.20 LVOT Area: 3.80 Diastolic Function MV Pk E: 0.68 MV Pk A: 0.62 E/A: 1.10 E'Medial: 5.22 E/E' Med: 13.00 E' Laterial: 9.46 E/E' Lat: 7.20 Right Ventricle TAPSE (mm): 30.90 TVS' Tra: 15.20 Tricuspid Valve TR Pk Tra: 2.15 TR Pk Grad: 18.00 RA Press: 3.00 RVSP: 21.00 Great Vessels Aorta Sinus of Valsalva: 3.55 2.0-3.[address] Ridge: 2.86 1.7-3.4 cm Ao Asc: 3.70 2.1-3.4 cm Updated in Other Vendor System with Status of Final Oren Mueller MD electronically signed on 11/10/2024 2:08:55 PM with status of Final
--- OUTSIDE RECORDS SUMMARY | 2024-11-09 12:12 | XMS_ITS | Patient Health Record ---
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, with unspecified presence of clinical manifestation (I70.203) Active confirmed Vital Signs Blood pressure diastolic 70 mm Hg 09/07/2024 Height 5 ft 11 in in 09/07/2024 Blood pressure systolic 120 mm Hg 09/07/2024 Weight 210 lbs 09/07/2024 BMI 29.29 kg/m2 09/07/2024 Procedures Procedure Date Ordered Date Performed Result Body Sit e 98136-Pafmlspz Plate 09/07/2024 N/A Encounters Encounter Location Date Provider Diagnosis [facility] [place] [address] [place] [address] 09/07/2024 Rollybreanna HillVirgil Ingrown nail L60.0 ; Cellulitis of toe of left foot L03.032 and 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, with unspecified presence of clinical manifestation I70.203 Assessments Encounter Date Diagnosis (ICD Code) Assessment Notes Treatment Notes Treatment Clinical Notes Section Notes 09/07/2024 Ingrown nail (ICD-10 - L60.0) 09/07/2024 Cellulitis of toe of left foot (ICD-10 - L03.032) 09/07/2024 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, with unspecified presence of clinical manifestation (ICD-10 - I70.203) Plan Of Treatment Pending Test Test Name Order Date X ray : Foot, left 3V 01/23/2022 X ray : Foot, left 3V 11/29/2022 11028-JDQRTNP NAIL, 6 OR MORE 02/25/2023 22580-ONNFJOH NAIL, 6 OR MORE 11/29/2022 83748-GITHQIB NAIL, 6 OR MORE 07/22/2023 46389-POVEXSB NAIL, 6 OR MORE 03/05/2022 70030-DDIQODR NAIL, 6 OR MORE 05/28/2022 60594-UEDCLGG NAIL, 6 OR MORE 08/27/2022 21857-Fykxyiai Plate 05/28/2022 15738-Lbraqesp Plate 09/07/2024 21926- Debride <25 sq cm 01/23/2022 30637 I&D ABSCESS- SIMPLE,SINGLE 022 15767-ZKQD SKIN LESIONS, 2 TO 4 08/28/19 23 32275-KIFU SKIN LESIONS, 2 TO 4 05/28/20 22 76937-ZYMD SKIN LESIONS, 2 TO 4 07/22/19 24 52841-DJKE SKIN LESIONS, 2 TO 4 11/30/19 23 55794-EDHO SKIN LESIONS, 2 TO 4 02/26/20 23 Insurance Providers Payer Name Payer Address Payer Phone Subscriber Number Group Number Insured Name Patient Relationship to Insured Coverage Start Date Coverage End Date Medicare National Govt Svcs Inc [address] [facility] [place] [address] [id number] Myles Tipton Self - patient is the [...] Hospitalization History Reason Date(Month/Year) [facility]- Pacemaker 08/2024 [facility] - AFib and choke at sametime- coded 2x CPR done 2 days 06/13/2022 [facility]-Drain left knee 3 x between 5 weeks 2021 [facility] -Ugent Care painful L migel Ingrown? g iven antiboitics 01/08/22 Cardiac Cath and Stent Coronary artery disease invo lving quileute coronary artery of quileute heart with unstable angina pectoris
== END ==
LOC: HO.CARD 10:34
PROVIDERS: PCP Internal Medicine Geriatric Medicine; Visit Provider Nurse Practitioner Family
DX: R55 Syncope and collapse (principal); Z98.890 Other specified postprocedural states
CPT/HCPCS: 93306

== ENCOUNTER → 2024-11-09 10:37 | Outpatient (BNV) | payer MEDICARE, MEDICAID, SELFPAY | PROVIDERS: PCP Internal Medicine Geriatric Medicine; Visit Provider Internal Medicine | DX: I42.2 Other hypertrophic cardiomyopathy (principal); I35.8 Other nonrheumatic aortic valve disorders | CPT/HCPCS: 93306 ==

== ENCOUNTER 2024-12-07 10:00 | Outpatient (AMB) | payer MEDICARE, MEDICAID, SELFPAY ==
[2024-12-07 10:11] VITALS: BMI 27.1
--- NOTE | 2024-12-07 10:11 | MHC.OFFVIS ---
Vital Signs 12/07/24 10:11 Height 5 ft 11 in Weight 194 lb BMI 27.1 Intake Visit Reasons: OV-Shoulder Injection Intake Note: Myles is a 69 year old male who presents today who presents today for a right shoulder injection. Patient reports having severe shoulder pain and very limited ROM. Allergies bee pollen (BEE STINGS) Allergy (Severe, Verified 12/07/24 10:13) ANAPHYLAXIS indomethacin (Indocin) Allergy (Severe, Verified 12/07/24 10:13) anaphylaxis tramadol (Ultram) Allergy (Severe, Verified 12/07/24 10:13) anaphylaxis fentanyl Adverse Reaction (Intermediate, Verified 12/07/24 10:13) Anxiety Medication List - Last Reconciled 12/07/24 by Roopa Valerio PA-C amlodipine 10 mg PO DAILY apixaban (Eliquis) 5 mg PO BID 90 days aspirin 81 mg PO QAM divalproex ER (Depakote ER) 250 mg PO BEDTIME esomeprazole magnesium 40 mg PO QAM ezetimibe (Zetia) 10 mg PO DAILY hyoscyamine sulfate 0.125 mg PO BID-QID PRN isosorbide mononitrate ER 60 mg PO DAILY lisinopril 5 mg PO DAILY mesalamine ER (Apriso) 1.5 grams (4 x 0.375 gram) PO QAM metoprolol tartrate 100 mg PO BID multivitamin (Daily Vitamin Formula tablet) 1 tab PO DAILY nitroglycerin (Nitrostat) 0.4 mg sublingual Q5M PRN ondansetron 4 mg PO Q8H PRN oxycodone 10 mg PO Q5H PRN pantoprazole 40 mg PO DAILY ranolazine ER 1,000 mg PO BID rosuvastatin (Crestor) 40 mg PO BEDTIME tramadol 50 mg PO BEDTIME 7 days HPI HPI OV-Shoulder Injection: Details: 69-year-old gentleman presents to the office today for ongoing right shoulder pain. He has had injections in the past which were quite successful. Currently he has limited range of motion and constant pain making daily activities difficult. [facility] Medical History (Updated 10/11/24 @ 16:27 by JANETH Art) Nicotine dependence, cigarettes, uncomplicated Elevated cholesterol History of chemotherapy Obstructive sleep apnea (~2018) On anticoagulant therapy DVT (deep venous thrombosis) Essential hypertension Tubular adenoma of colon COVID-19 vaccine administered Seizures (~04/2020) GERD (gastroesophageal reflux disease) Esophagitis Atherosclerotic cardiovascular disease Psychotic disorder Syncope Headache Myocardial infarction Pacemaker (~05/2013) Tremor Brain bleed CAD (coronary artery disease) Surgical History Hx of shoulder surgery History of total left knee replacement History of ERCP History of spinal surgery History of colonoscopy (~09/2020) History of right knee surgery (~12/2013) History of total right hip replacement (~06/2012) History of cholecystectomy History of cardiac catheterization History of permanent cardiac pacemaker placement (~05/2013) History of esophagogastroduodenoscopy (EGD) (~09/2020) History of appendectomy Stented coronary artery Family History Father Heavy cigarette smoker Throat cancer Mother Heart disease Social History Household Members: None Household Members Other:: shares house with a friend Housing: House Are you a primary healthcare social worker to a significant other at home: No Do you presently have visiting nurse or other home services: No Alcohol intake: never Comment: resting eyes closed Patient Tobacco Use Status: Current someday Tobacco user Tobacco use type: Cigarette Years Smoked: 8 +/- e-Cigarette/Vaping Use: Never Used Second Hand Smoke Exposure: No Advance Directives Date on File: 12/16/20 service: No Current occupational status: employed and retired Review of Systems Const All systems reviewed & are unremarkable except as noted in HPI and below Physical Exam Vital Signs: BMI result Body Mass Index 27.1 Const General: no acute distress, alert and awake Orientation/consciousness: patient oriented x3 HEENT Head: Yes normocephalic and Yes atraumatic Eyes EOM: EOMs intact bilaterally Resp Effort & Inspection: normal respiratory effort and able to speak in complete sentences Cardio Jugular venous distension: no JVD Skin General skin exam: turgor normal Rashes: no rashes Neuro General: patient oriented x3 Extrem Other: Right shoulder normal to inspection. Forward flexion external rotation and internal rotation: 30/80/15/S1 Psych Appearance: grossly normal Affect: normal affect Attitude: cooperative Office Procedures AMB Joint Injection/Aspiration Joint Injection/Aspiration Primary Site: right shoulder Prep: site was prepped using aseptic technique, ethochloride spray was applied and injection warnings given Injected: 40 mg of, with 8 mL of, 1% plain lidocaine and decadron Approach Used: posterolateral Coding 70029 - Glenohumeral/Tronchanteric Bursa/Intraarticular Procedure code (CPT) selection complete Assessment & Plan Assessment & Plan (1) Osteoarthritis of right shoulder: Code(s): M19.011 - Primary osteoarthritis, right shoulder Category: Medical Plan We discussed options today, which include steroid injection. The patient did consent to move forward with the right shoulder injection, which was tolerated well.? I recommended rest, ice and elevation and OTC antiinflammatories prn for discomfort. If symptoms persist over the next 6-8 weeks, they will contact our office, otherwise, prn Medications: New tramadol 50 mg PO BEDTIME 7 tabs 0RF 7 days Coding Level of Care Code Est Pt Level 3 (70402) Complex EM visit Add On G2211 Diagnoses Osteoarthritis of right shoulder M19.011 CPT Codes Coding - Joint 7: 97836 - Glenohumeral/Tronchanteric Bursa/Intraarticular ([id number])
--- OUTSIDE RECORDS SUMMARY | 2024-12-07 11:02 | XMS_ITS | Encounter Summary ---
Author Organization [employer] Address [address] [place] [address] Care Team Providers Care Power Project Manager Name Role Phone Name, Memo ARREDONDO Primary Care Provider [phone] Reason for Visit * Reason Onset Date Comments triage 06/05/2022 Encounter Details Date Type Department Care Team ([facility] st Contact Info) Description 06/05/2022 Telephone [facility] [address] [place] [address] Name, MD Memo [address] [place] [address] triage Social History Tobacco Use Types Packs/Day [...] Care Team (Late st Contact Info) Description 01/28/2025 9:30 AM EDT Telemedicine [facility] [address] [place] [address] 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, VON documented as of this encounter Visit Diagnoses Not on filedocumented in this encounter Care Teams Power Project Manager Relationship Specialty Start Date End Date Name, MD Memo [address] [place] [address] PCP - General Family Medicine 08/30/15 documented as of this encounter
--- OUTSIDE RECORDS SUMMARY | 2024-12-07 11:02 | XMS_ITS | Patient Health Record ---
Author Organization [facility] Address [address] [place] [address] Care Team Providers Care Supreme Court Judge Name Role Phone Name Memo ARREDONDO Primary Care Provider Rolly Manzanares Unavailable [phone] Allergies Allergen (clinical drug ingredient) Drug/Non Drug [...] MG 1 tablet Oral ly Once a day; Duration: 30 day(s) Active eliquis 5 mg Active Divalproex Sodium 250 MG 1 tablet Orally Once a day; Duration: 30 day(s) Active Lisinopril 10 MG 1 tablet Orally Once a day; Duration: 30 day(s) Active Ezetimibe 10 MG 1 tablet Orally Once a day; Duration: 30 day(s) Active Multivitamin - 1 tablet Orally Once a day; Duration: 30 day(s) Active Metoprolol Tartrate 50 MG 1 tablet with food Orally Twice a day; Duration: 30 day(s) Active Cephalexin 500 MG 1 capsule Orally Thr ee times a day; Duration: 10 days Active oxyCODONE HCl 10 MG 1 tablet as needed O rally every 6 hrs Active Nitroglycerin 0.4 MG Sublingual; Duration: 30 Active Aspirin 81 MG 1 tablet Orally Once a day; Duration: 30 day(s) Active Ranolazine ER 1000 MG 1 tablet Orally Tw ice a day; Duration: 30 day(s) Active Esomeprazole Magnesium Active Pantoprazole Sodium 40 MG 1 tablet Orall y Once a day; Duration: 30 day(s) Active amLODIPine Besylate 10 MG 1 tablet Orall y Once a day; Duration: 30 day(s) Active Immunizations Vaccine Route Administration [...] Problem Status W/U Status Risk Notes Problem Bilateral atherosclerosis of arteries of lower limbs (disorder) ([id number] ) Atherosclerosis of [place] artery of both lower extremities, with unspecified presence of clinical manifestation (I70.203) Active confirmed Vital Signs Blood pressure diastolic 70 mm Hg 09/07/2024 Height 5 ft 11 in in 09/07/2024 Blood pressure systolic 120 mm Hg 09/07/2024 Weight 210 lbs 09/07/2024 BMI 29.29 kg/m2 09/07/2024 Procedures Procedure Date Ordered Date Performed Result Body Sit e 64320-Nxkannps Plate 09/07/2024 N/A Encounters Encounter Location Date Provider Diagnosis [facility] [place] [address] [place] [address] 09/07/2024 Rollybreanna HillVirgil Ingrown nail L60.0 ; Cellulitis of toe of left foot L03.032 and Atherosclerosis of chipe[place] artery of both lower extremities, with unspecified presence of clinical manifestation I70.203 Assessments Encounter Date Diagnosis (ICD Code) Assessment Notes Treatment Notes Treatment Clinical Notes Section Notes 09/07/2024 Ingrown nail (ICD-10 - L60.0) 09/07/2024 Cellulitis of toe of left foot (ICD-10 - L03.032) 09/07/2024 Atherosclerosis of chipewwa artery of both lower extremities, with unspecified presence of clinical manifestation (ICD-10 - I70.203) Plan Of Treatment Pending Test Test Name Order Date X ray : Foot, left 3V 01/23/2022 X ray : Foot, left 3V 11/29/2022 83904-BPFHVMY NAIL, 6 OR MORE 02/25/2023 82528-MGMIZMO NAIL, 6 OR MORE 11/29/2022 56903-QRPGCXU NAIL, 6 OR MORE 07/22/2023 62161-PPXTTBX NAIL, 6 OR MORE 03/05/2022 66227-OXMPXDQ NAIL, 6 OR MORE 05/28/2022 81404-YBOKQSQ NAIL, 6 OR MORE 08/27/2022 06901-Hpipsjok Plate 05/28/2022 28848-Hmfpaqga Plate 09/07/2024 63546- Debride <25 sq cm 01/23/2022 39910 I&D ABSCESS- SIMPLE,SINGLE 022 36758-OLTX SKIN LESIONS, 2 TO 4 08/28/19 23 08476-DWPE SKIN LESIONS, 2 TO 4 05/28/20 22 86357-MYGR SKIN LESIONS, 2 TO 4 07/22/19 24 21120-HUFD SKIN LESIONS, 2 TO 4 11/30/19 23 28156-YHMA SKIN LESIONS, 2 TO 4 02/26/20 23 Insurance Providers Payer Name Payer Address Payer Phone Subscriber Number Group Number Insured Name Patient Relationship to Insured Coverage Start Date Coverage End Date Medicare National Govt Svcs Inc [address] [place] [address] [id number] Myles Tipton Self - patient is the [...] coded 2x CPR done 2 days 06/13/2022 [facility]Drain left knee 3 x between 5 weeks 2021 [facility] painful L migel Ingrown? g iven antiboitics 01/08/22 Cardiac Cath and Stent Coronary artery disease invo lving chipewwa coronary artery of chipewwa heart with unstable angina pectoris
== END 2024-12-07 10:27 | disposition home or self-care (01) ==
LOC: HO.HOS 10:01
PROVIDERS: PCP Internal Medicine Geriatric Medicine; Visit Provider Physician Assistant
DX: M19.011 Primary osteoarthritis, right shoulder (principal)
CPT/HCPCS: 20610; 99213

== ENCOUNTER → 2024-12-07 10:00 | Outpatient (BNVA) | payer MEDICARE, MEDICAID, SELFPAY | PROVIDERS: PCP Internal Medicine Geriatric Medicine; Visit Provider Physician Assistant | DX: M19.011 Primary osteoarthritis, right shoulder (principal); M25.511 Pain in right shoulder; M25.611 Stiffness of right shoulder, not elsewhere classified | CPT/HCPCS: 20610; 99212; J0665; J1100; J2003 ==

== ENCOUNTER 2024-12-21 09:31 | Outpatient (AMB) | payer MEDICARE, MEDICAID, SELFPAY ==
[2024-12-21 09:53] VITALS: BP 114/62; PULSE 60; BMI 27.7
--- NOTE | 2024-12-21 09:53 | A.OFFVIS_ITS ---
Vital Signs 12/21/24 09:53 Height 5 ft 11 in Weight 198 lb 13.711 oz BMI 27.7 BP 114/62 Blood Pressure Location Lt brachial Position Sitting Pulse 60 Pulse Source Monitor Intake Visit Reasons: 1 wk f/up ? [facility] Test Tech Required: No Allergies bee pollen (BEE STINGS) Allergy (Severe, Verified 12/21/24 09:55) ANAPHYLAXIS indomethacin (Indocin) Allergy (Severe, Verified 12/21/24 09:55) anaphylaxis tramadol (Ultram) Allergy (Severe, Verified 12/21/24 09:55) anaphylaxis fentanyl Adverse Reaction (Intermediate, Verified 12/21/24 09:55) Anxiety Medication List - Last Reconciled 12/21/24 by JANETH Art amlodipine 10 mg PO DAILY apixaban (Eliquis) 5 mg PO BID 90 days aspirin 81 mg PO QAM divalproex ER (Depakote ER) 250 mg PO BEDTIME esomeprazole magnesium 40 mg PO QAM ezetimibe (Zetia) 10 mg PO DAILY hyoscyamine sulfate 0.125 mg PO BID-QID PRN isosorbide mononitrate ER 60 mg PO DAILY lisinopril 5 mg PO DAILY mesalamine ER (Apriso) 1.5 grams (4 x 0.375 gram) PO QAM metoprolol tartrate 100 mg PO BID multivitamin (Daily Vitamin Formula tablet) 1 tab PO DAILY nitroglycerin (Nitrostat) 0.4 mg sublingual Q5M PRN ondansetron 4 mg PO Q8H PRN oxycodone 10 mg PO Q5H PRN pantoprazole 40 mg PO DAILY ranolazine ER 1,000 mg PO BID rosuvastatin (Crestor) 40 mg PO BEDTIME HPI HPI 1 wk f/up ? [facility]: Details: Myles is a 69-year-old male with past medical history of hypertension, hyperlipidemia, sick sinus syndrome, pacemaker in place, CAD, multiple cardiac catheterizations with PCI, stents, last 07/10/2021, PAF, DVT/on Eliquis, syncopal episode 09/2024 who presents for follow up. Today he reports that he has been having some episodes of lightheadedeness, weakness, sweating that can last a few minutes and gradually go away. At times he will feel heart palpitations with these episodes. He has not had any recurrent syncope. He believes he is drinking enough liquids. 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 He has no concerning shortness of breath, PND, orthopnea or edema. No chest discomfort at rest or with activity. No bleeding issues reported. Taking all meds as directed. [facility] Medical History Nicotine dependence, cigarettes, uncomplicated Elevated cholesterol History of chemotherapy Obstructive sleep apnea (~2018) On anticoagulant therapy DVT (deep venous thrombosis) Essential hypertension Tubular adenoma of colon COVID-19 vaccine administered Seizures (~04/2020) GERD (gastroesophageal reflux disease) Esophagitis Atherosclerotic cardiovascular disease Psychotic disorder Syncope Headache Myocardial infarction Pacemaker (~05/2013) Tremor Brain bleed CAD (coronary artery disease) Surgical History Hx of shoulder surgery History of total left knee replacement History of ERCP History of spinal surgery History of colonoscopy (~09/2020) History of right knee surgery (~12/2013) History of total right hip replacement (~06/2012) History of cholecystectomy History of cardiac catheterization History of permanent cardiac pacemaker placement (~05/2013) History of esophagogastroduodenoscopy (EGD) (~09/2020) History of appendectomy Stented coronary artery Family History Father Heavy cigarette smoker Throat cancer Mother Heart disease Social History Household Members: None Household Members Other:: shares house with a friend Housing: House Are you a primary child care coordinator to a significant other at home: No Do you presently have visiting nurse or other home services: No Alcohol intake: never Comment: resting eyes closed Patient Tobacco Use Status: Current someday Tobacco user Tobacco use type: Cigarette Years Smoked: 8 +/- e-Cigarette/Vaping Use: Never Used Second Hand Smoke Exposure: No Advance Directives Date on File: 12/16/20 service: No Current occupational status: employed and retired Review of Systems Const All systems reviewed & are unremarkable except as noted in HPI and below ENT Details: episodes of lightheadedness and feeling sweaty Reports dizziness Card Denies chest pain, Denies chest pain at rest, Denies chest pain with activity, Denies rapid heart rate, Denies pedal edema, Denies edema, Denies leg edema, Denies lightheadedness, Denies palpitations, Denies dyspnea, Denies dyspnea on exertion and Denies orthopnea Resp Denies cough, Denies dyspnea and Denies dyspnea on exertion GI Denies hematochezia and Denies change in stool character Musc Denies abnormal gait, Denies limited range of motion, Denies muscle cramps, Denies muscle weakness, Denies numbness, Denies radiating pain into limb, Denies stiffness and Denies tingling Neuro Denies abnormal gait, Reports dizziness, Denies numbness and Denies tingling Endo Denies palpitations Physical Exam Vital Signs: Last Vital Signs Pulse 60 12/21/24 09:53 BP 114/62 12/21/24 09:53 BMI result Body Mass Index 27.7 Const General: cooperative, healthy appearing, comfortable and no acute distress Orientation/consciousness: patient oriented x3 Neck Neck: Yes normal visual inspection and Yes no JVD Resp Effort & Inspection: normal respiratory effort Auscultation: clear to auscultation bilaterally, no crackles, no rales, no rhon chi and no wheezes Cardio Jugular venous distension: no JVD Rate: regular rate Rhythm: regular rhythm Heart sounds: S1 normal heart sound present, S2 normal heart sound present, no murmurs and no rubs Neuro General: patient oriented x3 Extrem General: Yes normal to inspection, No no pedal edema and No calf tenderness Psych Appearance: grossly normal Mental Status: mental status grossly normal Speech and movement: Normal speech and movement present Office Procedures Cardiac Device Check Cardiac Device Check Details: Curb ([employer] Byron dual-chamber pacemaker interrogation today, battery 9.6-10.4 years, DDDR mode, low rate 60, atrial threshold 0.5 volts at 0.4 milliseconds, ventricular threshold 0.625 volts at 0.4 milliseconds atrial paced 51%, ventricular paced less than 1%, 80/AF less than 1% since 10/24/2024 ventricular noise reversion noted [id number]-UB Cardiac Device Check, pacemaker dual lead Procedure code (CPT) selection complete EKG Details: Today, read by me Atrial paced, ventricular sensed rhythm, rate 60 47664-Ujpajeusxkzmgwokp, Complete Assessment & Plan Assessment & Plan (1) Lightheadedness: Code(s): R42 - Dizziness and giddiness Category: Medical Plan: Syncopal type event occurring on 09/15/2024 as described above. He had no arrhythmias recorded on that day. He is now reporting episodes that sound like presycope. Device interrogation today is not showing arrythmia or significant PAF. His burden is < 1% since October. His BP is on low side today, which can be the cause of his symptoms. ( recheck by me was 96/60). Will reduce Amlodipine to 5 mg daily. Continue Metoprolol, Isosorbide, Lisinopril . Instructed in increasing hydration, especially if working in hot weather. Sit/ lay down if he becomes symptomatic. If he continue to have symptoms, then will consider Tilt table test. The possibility of seizures was also brought up in past. (2) Syncope: Code(s): R55 - Syncope and collapse Category: Medical Plan: as above (3) CAD (coronary artery disease): Comment: (NSTEMI 2012, STEMI 2016, Stents to LAD, rPDA, RPL, cath 01/2020), catheterization 07/10/2021, no change to anatomy, patent stents Code(s): I25.10 - Atherosclerotic heart disease of [place] coronary artery without angina pectoris Category: Medical Plan: History of CAD with multiple cardiac catheterizations and PCI in the past. He has known stent to the proximal RPL, distal RCA. He had angioplasty to the distal LAD in 2015. His cardiac catheterization was 07/10/2021 showing patent distal RCA stent, 60% PLV superior branch small size vessel, distal LAD stenosis unchanged, small territory and small-vessel, 40-50% mid LAD stenosis. He underwent a repeat cardiac catheterization for reported symptoms on 11/04/2023 showing no significant change in anatomy, right PDA and RCA stents patent. He has been stable since that time. Will continue current management for stable CAD including isosorbide, amlodipine and metoprolol for triple antianginal therapy. Continue aspirin, high-dose rosuvastatin and Zetia. (4) Pacemaker: Onset Date: ~05/2013 Comment: ([employer] DCPP, placed 2012 - device interrogation 08/30/20) Code(s): Z95.0 - Presence of cardiac pacemaker Category: Medical Plan: [employer] [place] dual-chamber pacemaker with recent generator change. Lead change not done. Remote monitoring in use. Office interrogation today shows device is functioning normally. He does have V noise which is stable. Next office interrogation due in 6 months. (5) Sick sinus syndrome: Code(s): I49.5 - Sick sinus syndrome Category: Medical Plan: As above (6) PAF (paroxysmal atrial fibrillation): Code(s): I48.0 - Paroxysmal atrial fibrillation Category: Medical Plan: History of PAF which is mostly suppressed with metoprolol. He has had brief episodes lasting seconds, with longest episode 3 hours on 08/24/2024. Interrogation today is showing very low burden. Continue Metoprolol. Continue Eliquis for anticoagulation. (7) On anticoagulant therapy: Comment: (Eliquis) Code(s): Z79.01 - renewal specialist (current) use of anticoagulants Category: Medical Plan: Patient is on Eliquis (8) S/P cardiac cath: Comment: 11/04/2023, left main normal, lad apical 80% stenosis, left circumflex mid 60% stenosis, RCA less than 30% stenosis, patent stents in the right PDA and RCA distal Code(s): Z98.890 - Other specified postprocedural states Category: Surgical Plan: As above Plan I discussed with the patient the importance of adjusting his amlodipine dosage during hot weather to prevent hypotension. We talked about maintaining hydration and adding salt to his diet if he experiences symptoms of low blood pressure. I reassured him that his atrial fibrillation is being effectively monitored via his pacemaker, with no current increase in episodes. We agreed on a follow-up in a few months to reassess his condition. Patient Instructions: - Reduce amlodipine to 5 mg daily during hot weather. - Drink plenty of water to stay hydrated. - Add salt to your diet if you feel sweaty or lightheaded. - Follow up in a few months for reassessment. Patient was informed and verbally consented to the use of an ambient scribe for clinic note documentation during this visit. Visit time spent on chart review, interview, assessment, orders, documentation. Coding Level of Care Code Est Pt Level 4 (39969) Complex EM visit Add On G2211 Diagnoses Lightheadedness R42 Syncope R55 CAD (coronary artery disease) I25.10 Pacemaker Z95.0 Sick sinus syndrome I49.5 PAF (paroxysmal atrial fibrillation) I48.0 On anticoagulant therapy Z79.01 S/P cardiac cath Z98.890 CPT Codes Cardiac Device Check - Cardiac Device 2: 01141-ZH Cardiac Device Check, pacemaker dual lead ([id number]) EKG - CPT: 30302-Vkstqpiexskuowavy, Complete ([id number]) Time Spent (min) 30
--- OUTSIDE RECORDS SUMMARY | 2024-12-21 10:07 | XMS_ITS | Patient Health Record ---
Author Organization [facility] Address [address] [place] [address] Care Team Providers Care Construction Laborer Name Role Phone Name Memo ARREDONDO Primary Care Provider Rolly Manzanares Unavailable [phone] Allergies Allergen (clinical drug ingredient) Drug/Non Drug [...] atherosclerosis of arteries of lower limbs (disorder) ([id number] ) Atherosclerosis of [place] artery of both lower extremities, with unspecified presence of clinical manifestation (I70.203) Active confirmed Vital Signs Blood pressure diastolic 70 mm Hg 09/07/2024 Height 5 ft 11 in in 09/07/2024 Blood pressure systolic 120 mm Hg 09/07/2024 Weight 210 lbs 09/07/2024 BMI 29.29 kg/m2 09/07/2024 Procedures Procedure Date Ordered Date Performed Result Body Sit e 63798-Qnmnwnnq Plate 09/07/2024 N/A Encounters Encounter Location Date Provider Diagnosis [facility] [place] [address] [place] [address] 09/07/2024 Rollybreanna HillVirgil Ingrown nail L60.0 ; Cellulitis of toe of left foot L03.032 and Atherosclerosis of [place] artery of both lower extremities, with unspecified presence of clinical manifestation I70.203 Assessments Encounter Date Diagnosis (ICD Code) Assessment Notes Treatment Notes Treatment Clinical Notes Section Notes 09/07/2024 Ingrown nail (ICD-10 - L60.0) 09/07/2024 Cellulitis of toe of left foot (ICD-10 - L03.032) 09/07/2024 Atherosclerosis of [place] artery of both lower extremities, with unspecified presence of clinical manifestation (ICD-10 - I70.203) Plan Of Treatment Pending Test Test Name Order Date X ray : Foot, left 3V 01/23/2022 X ray : Foot, left 3V 11/29/2022 14543-LTSPTZX NAIL, 6 OR MORE 02/25/2023 45710-KIQCLHL NAIL, 6 OR MORE 11/29/2022 27158-XABBAZU NAIL, 6 OR MORE 07/22/2023 41504-UTDRZTT NAIL, 6 OR MORE 03/05/2022 95496-IRBNVVP NAIL, 6 OR MORE 05/28/2022 96146-HOGOJMP NAIL, 6 OR MORE 08/27/2022 56621-Iquxqcpi Plate 05/28/2022 04678-Feqncatd Plate 09/07/2024 92161- Debride <25 sq cm 01/23/2022 06333 I&D ABSCESS- SIMPLE,SINGLE 022 70397-URYV SKIN LESIONS, 2 TO 4 08/28/19 23 61067-JENV SKIN LESIONS, 2 TO 4 05/28/20 22 83940-JVKU SKIN LESIONS, 2 TO 4 07/22/19 24 21160-KTBY SKIN LESIONS, 2 TO 4 11/30/19 23 88595-EHFT SKIN LESIONS, 2 TO 4 02/26/20 23 Insurance Providers Payer Name Payer Address Payer Phone Subscriber Number Group Number Insured Name Patient Relationship to Insured Coverage Start Date Coverage End Date Medicare National Govt S[employer] [address] [place] [address] [id number] Myles Tipton Self - patient is the [...] coded 2x CPR done 2 days 06/13/2022 [facility] left knee 3 x between 5 weeks [place] [facility] [place] painful L migel Ingrown? g iven antiboitics 01/08/22 Cardiac Cath and Stent Coronary artery disease invo lving [place] coronary artery of [place] heart with unstable angina pectoris
--- OUTSIDE RECORDS SUMMARY | 2024-12-21 10:07 | XMS_ITS | Encounter Summary ---
Author Organization [employer] Address [address] [facility] [address] [place] [address] Care Team Providers Care Machine Lay Out Worker Name Role Phone Name, Memo ARREDONDO Primary Care Provider [phone] Reason for Visit * Reason Onset Date Comments triage 06/05/2022 Encounter Details Date Type Department Care Team ([facility] st Contact Info) Description 06/05/2022 Telephone [facility] [address] [place] [address] Name, MD Memo [address] [place] [address] triage Social History Tobacco Use Types Packs/Day [...] Info) Description 01/28/2025 9:30 AM EDT Telemedicine [facility] [address] [place] [address] 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, VON documented as of this encounter Visit Diagnoses Not on filedocumented in this encounter Care Teams Machine Lay Out Worker Relationship Specialty Start Date End Date Name, MD Memo [address] [place] [address] PCP - General Family Medicine 08/30/15 documented as of this encounter
== END 2024-12-21 10:48 | disposition home or self-care (01) ==
LOC: HO.HCS 09:32
PROVIDERS: PCP Internal Medicine Geriatric Medicine; Visit Provider Nurse Practitioner Family
DX: R42 Dizziness and giddiness (principal); R55 Syncope and collapse; I25.10 Atherosclerotic heart disease of native coronary artery without angina pectoris; Z95.0 Presence of cardiac pacemaker; I49.5 Sick sinus syndrome; I48.0 Paroxysmal atrial fibrillation; Z79.01 Long term (current) use of anticoagulants; Z98.890 Other specified postprocedural states
CPT/HCPCS: 93010; 93280; 99214; G2211

== ENCOUNTER → 2024-12-21 09:31 | Outpatient (BNVA) | payer MEDICARE, MEDICAID, SELFPAY | PROVIDERS: PCP Internal Medicine Geriatric Medicine; Visit Provider Nurse Practitioner Family | DX: Z45.018 Encounter for adjustment and management of other part of cardiac pacemaker (principal); R42 Dizziness and giddiness; R55 Syncope and collapse; I25.10 Atherosclerotic heart disease of native coronary artery without angina pectoris; I49.5 Sick sinus syndrome; I48.0 Paroxysmal atrial fibrillation; R94.31 Abnormal electrocardiogram [ECG] [EKG]; Z79.01 Long term (current) use of anticoagulants; Z98.890 Other specified postprocedural states | CPT/HCPCS: 93005; 93280; 99212 ==

== ENCOUNTER → 2025-01-23 23:59 | Outpatient (BNV) | payer MEDICARE, MEDICAID, SELFPAY ==
--- NOTE | 2025-01-30 11:55 | MHC.OFFVIS ---
Intake Visit Reasons: Remote Device Check- [facility] Allergies bee pollen (BEE STINGS) Allergy (Severe, Verified 12/21/24 09:55) ANAPHYLAXIS indomethacin (Indocin) Allergy (Severe, Verified 12/21/24 09:55) anaphylaxis tramadol (Ultram) Allergy (Severe, Verified 12/21/24 09:55) anaphylaxis fentanyl Adverse Reaction (Intermediate, Verified 12/21/24 09:55) Anxiety [facility] Medical History Nicotine dependence, cigarettes, uncomplicated Elevated cholesterol History of chemotherapy Obstructive sleep apnea (~2018) On anticoagulant therapy DVT (deep venous thrombosis) Essential hypertension Tubular adenoma of colon COVID-19 vaccine administered Seizures (~04/2020) GERD (gastroesophageal reflux disease) Esophagitis Atherosclerotic cardiovascular disease Psychotic disorder Syncope Headache Myocardial infarction Pacemaker (~05/2013) Tremor Brain bleed CAD (coronary artery disease) Surgical History Hx of shoulder surgery History of total left knee replacement History of ERCP History of spinal surgery History of colonoscopy (~09/2020) History of right knee surgery (~12/2013) History of total right hip replacement (~06/2012) History of cholecystectomy History of cardiac catheterization History of permanent cardiac pacemaker placement (~05/2013) History of esophagogastroduodenoscopy (EGD) (~09/2020) History of appendectomy Stented coronary artery Family History Father Heavy cigarette smoker Throat cancer Mother Heart disease Social History Household Members: None Household Members Other:: shares house with a friend Housing: House Are you a primary health care analyst to a significant other at home: No Do you presently have visiting nurse or other home services: No Alcohol intake: never Comment: resting eyes closed Patient Tobacco Use Status: Current someday Tobacco user Tobacco use type: Cigarette Years Smoked: 8 +/- e-Cigarette/Vaping Use: Never Used Second Hand Smoke Exposure: No Advance Directives Date on File: 12/16/20 service: No Current occupational status: employed and retired Office Procedures Cardiac Device Check Cardiac Device Check Details: Date of service- 01/23/2025 ; Battery life >9 years; normal lead parameters; AP 52%; BRAKE COUPLER DINKEY <1%; no significant arrhythmias. Overall normal device function. [id number] Cardiac Device Interrogation, pacemaker Procedure code (CPT) selection complete Assessment & Plan Assessment & Plan (1) Pacemaker: Onset Date: ~05/2013 Comment: ([facility] DCPP, placed 2012 - device interrogation 08/30/20) Code(s): Z95.0 - Presence of cardiac pacemaker Category: Medical (2) PAF (paroxysmal atrial fibrillation): Code(s): I48.0 - Paroxysmal atrial fibrillation Category: Medical Plan x Coding Level of Care Code Procedure Only Diagnoses Pacemaker Z95.0 PAF (paroxysmal atrial fibrillation) I48.0 CPT Codes Cardiac Device Check - Cardiac Device 12: [id number] Cardiac Device Interrogation, pacemaker ([id number])
== END ==
PROVIDERS: PCP Internal Medicine Geriatric Medicine; Visit Provider Internal Medicine
DX: I48.0 Paroxysmal atrial fibrillation (principal); Z95.0 Presence of cardiac pacemaker
CPT/HCPCS: 93294

== ENCOUNTER 2025-01-27 11:15 | Outpatient (REF) | payer MEDICARE, MEDICAID, SELFPAY ==
--- NOTE | ~2025-01-27 | XR_ITS ---
EXAMINATION: XR CERVICAL SPINE CLINICAL INFORMATION: Neck decreased ROM, arm weakness, hand tremors, r/o DJD COMPARISON: Correlated to CT dated April 25, 2021. TECHNIQUE: AP oblique lateral and atlantoodontoid views. FINDINGS: Craniocervical junction is intact. Multilevel marginal osteophyte formation and endplate sclerosis decreased intervertebral disc height and subchondral cyst formation pronounced at C6-7, C5-6 and to a lesser extent C3-4 and C4-5 levels. Reverse curvature apex at C5-6. Grade 1 anterolisthesis C4-5. Bilateral neuroforamina stenosis secondary to osteophyte formation C3-4 and to a lesser extent C5-6 and C6-7 levels. No lytic or blastic lesions. Upper airway is patent. XR/XR cervical spine 4V IMPRESSION: Multilevel cervical spondylosis with a [place] deformity apex at C5-6. Electronically signed by: Bc Vasquez MD 01/27/2025 11:35 AM EDT
--- OUTSIDE RECORDS SUMMARY | 2025-01-27 12:59 | XMS_ITS | Patient Health Record ---
Author Organization [facility] Address [address] [place] [address] Care Team Providers Care Alligator Hunter Name Role Phone Name Memo ARREDONDO Primary Care Provider Rolly Manzanares Unavailable [phone] Allergies Allergen (clinical drug ingredient) Drug/Non Drug [...] atherosclerosis of arteries of lower limbs (disorder) ([id number] ) Atherosclerosis of [place] artery of both lower extremities, with unspecified presence of clinical manifestation (I70.203) Active confirmed Vital Signs Blood pressure diastolic 70 mm Hg 09/07/2024 Height 5 ft 11 in in 09/07/2024 Blood pressure systolic 120 mm Hg 09/07/2024 Weight 210 lbs 09/07/2024 BMI 29.29 kg/m2 09/07/2024 Procedures Procedure Date Ordered Date Performed Result Body Sit e 40495-Elgpnfca Plate 09/07/2024 N/A Encounters Encounter Location Date Provider Diagnosis [facility] [place] [address] [place] [address] 09/07/2024 Rollybreanna HillVirgil Ingrown nail L60.0 ; Cellulitis of toe of left foot L03.032 and Atherosclerosis of [place] artery of both lower extremities, with unspecified presence of clinical manifestation I70.203 Assessments Encounter Date Diagnosis (ICD Code) Assessment Notes Treatment Notes Treatment Clinical Notes Section Notes 09/07/2024 Ingrown nail (ICD-10 - L60.0) 09/07/2024 Cellulitis of toe of left foot (ICD-10 - L03.032) 09/07/2024 Atherosclerosis of [place] artery of both lower extremities, with unspecified presence of clinical manifestation (ICD-10 - I70.203) Plan Of Treatment Pending Test Test Name Order Date X ray : Foot, left 3V 01/23/2022 X ray : Foot, left 3V 11/29/2022 86377-YNDEASX NAIL, 6 OR MORE 02/25/2023 12674-YPKMLMA NAIL, 6 OR MORE 11/29/2022 68919-HJQPIKE NAIL, 6 OR MORE 07/22/2023 64461-ZRFHZGU NAIL, 6 OR MORE 03/05/2022 71892-ANPCTSF NAIL, 6 OR MORE 05/28/2022 83709-GOZIOTY NAIL, 6 OR MORE 08/27/2022 16708-Qzginfay Plate 05/28/2022 30900-Cftigsbm Plate 09/07/2024 30311- Debride <25 sq cm 01/23/2022 36618 I&D ABSCESS- SIMPLE,SINGLE 022 61583-CSUM SKIN LESIONS, 2 TO 4 08/28/19 23 32356-SSYL SKIN LESIONS, 2 TO 4 05/28/20 22 85294-XHBR SKIN LESIONS, 2 TO 4 07/22/19 24 23454-RJYE SKIN LESIONS, 2 TO 4 11/30/19 23 53503-QNUQ SKIN LESIONS, 2 TO 4 02/26/20 23 Next Appt Details Provider Name:Rolly Schmidt Virgil , 03/11/2025 01:30:00 PM, [address] [place], [address], Insurance Providers Payer Name Payer Address Payer Phone Subscriber Number Group Number Insured Name Patient Relationship to Insured Coverage Start Date Coverage End Date Medicare National Govt Svcs Inc [address] [place] [address] [id number] Myles Tipton Self - patient is the [...] Hospitalization History Reason Date(Month/Year) [facility]- Pacemaker 08/2024 [facility] [place] AFib and choke at sametime- coded 2x CPR done 2 days 06/13/2022 [facility] left knee 3 x between 5 weeks 2021 [facility] [place] [facility] painful L migel Ingrown? g ivedy antiboitics 01/08/22 Cardiac Cath and Stent Coronary artery disease invo lving ione coronary artery of [place] heart with unstable angina pectoris
--- OUTSIDE RECORDS SUMMARY | 2025-01-27 12:59 | XMS_ITS | Encounter Summary ---
Author Organization [facility] Address [address] [place] [address] Phone Care Team Providers Care Digital Data Analyst Name Role Phone Name, Memo ARREDONDO Primary Care Provider [phone] Encounter Details Date Type Department Care Team (Late st Contact Info) Description 01/19/2018 Procedure Pass [facility] [address] [place] [address] Social History Tobacco Use Types Packs/Day Years Used Date Smoking Tobacco: Every Day Sex and Gender Information Value Date Recorded Sex Assigned at Not on file Legal Sex Male 5:00 PM EST Gender Identity Not on file Sexual Orientation Not on file documented as of this encounter Plan of Treatment Upcoming Encounters Date Type Department Care Team (Late st Contact Info) Description 02/24/2025 7:30 AM EDT Office Visit [facility], Department of Neurology [address] [place] [address] Maya Cardenas MD [address] [place] [address] [email or web address] documented as of this encounter Visit Diagnoses Not on filedocumented in this encounter Care Teams Digital Data Analyst Relationship Specialty Start Date End Date Name, MD Memo [address] [place] [address] PCP - General Geriatric Psychiatry 12/29/17 documented as of this encounter Additional Source Comments The information contained in this document represents components of the legal health record. It is not the complete legal health record.[facility]
--- OUTSIDE RECORDS SUMMARY | 2025-01-27 12:59 | XMS_ITS | Encounter Summary ---
Author Organization [facility] Address [address] [facility] [address] [place] [address] Care Team Providers Care Service Advisor Name Role Phone Name, Memo ARREDONDO Primary Care Provider [phone] Reason for Visit * Reason Onset Date Comments triage 06/05/2022 Encounter Details Date Type Department Care Team ([facility] st Contact Info) Description 06/05/2022 Telephone [facility] [address] [place] [address] Name, MD Memo [address] [place] [address] triage Social History Tobacco Use Types Packs/Day [...] Info) Description 01/28/2025 9:30 AM EDT Telemedicine [address] [address] 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 RN 04/05/2025 10:00 AM EDT Office Visit [facility] [address] [place] [address] Name, MD Memo [address] [place] [id number] documented as of this encounter Visit Diagnoses Not on filedocumented in this encounter Care Teams Service Advisor Relationship Specialty Start Date End Date Name, MD Memo [address] [place] [address] PCP - General Family Medicine 08/30/15 documented as of this encounter
== END 2025-01-27 11:16 | disposition home or self-care (01) ==
LOC: HO.XRAY 11:15
PROVIDERS: PCP Internal Medicine Geriatric Medicine; Visit Provider Internal Medicine Geriatric Medicine
DX: R29.898 Other symptoms and signs involving the musculoskeletal system (principal); G25.0 Essential tremor
CPT/HCPCS: 72050

== ENCOUNTER → 2025-01-27 11:20 | Outpatient (BNV) | payer MEDICARE, MEDICAID, SELFPAY | PROVIDERS: PCP Internal Medicine Geriatric Medicine; Visit Provider Radiology Diagnostic Radiology | DX: M47.892 Other spondylosis, cervical region (principal) | CPT/HCPCS: 72050 ==

== ENCOUNTER 2025-02-28 13:26 | Emergency (ER) | payer MEDICARE, MEDICAID, SELFPAY ==
--- OUTSIDE RECORDS SUMMARY | 2023-09-30 06:00 | XMS_ITS ---
Author Organization [facility] Address [address] [place] [address] Care Team Providers Care Teradata Developer Name Role Phone Name Memo ARREDONDO Primary Care Provider Unavailabl Rolly Barrera Unavailable [phone] Encounters Encounter Location Date Provider Diagnosis [address] [address] 09/30/2023 Rolly Herman Plan Of Treatment Next Appt Details Provider Name:Rolly Herman , 03/11/2025 01:30:00 PM, [address] [place], [address], Progress Notes * YOLETTEMyles SILVADOB:1955 (69 yo M)Acc No.[id number]:09/30/2023 Progress Note Patient: Myles ALMONTE Provider: Pablo Herman DPM :1955 A ge:68 Y S ex:Male Date:09/30/2023 Address:[address] [place] [address] [place] Pcp:Memo Alex MD Subjective: * Chief Complaints: [...] Generated for James hatfield/Jorge Alberto/Robbin on: 0 02/28/2025 06:24 PM EDT
--- NOTE | ~2025-02-28 | CT_ITS ---
CLINICAL HISTORY: LLQ pain CT abdomen and pelvis with contrast Comparison: CT/SR - CT ABDOMEN PELVIS W IV CON - 09/15/24 18:50 EDT Findings: No consolidation or effusion. Small hiatal hernia. Status post cholecystectomy. Mild intra and extrahepatic ductal dilation with CBD measuring up to 1.2 cm, unchanged in the interval. No renal stones. No hydronephrosis. Remainder of the solid organs are within normal limits. No bowel obstruction, pneumoperitoneum, or pneumatosis. Scattered diverticulosis of the descending colon without evidence of diverticulitis. Pelvic contents unremarkable. Appendix is not definitely visualized, correlate with history of appendectomy. The bones are intact. IMPRESSION: No acute findings. Status post cholecystectomy with mild intra and extrahepatic ductal dilation with CBD measuring up to 1.2 cm, unchanged in the interval. Scattered diverticulosis of the descending colon without evidence of acute diverticulitis. This document has been electronically signed by: Jacquie Benson MD on 02/28/2025 20:00:29
[2025-02-28 14:10] VITALS: BP 153/89; PULSE 68; RESP 18; TEMP 36.2; O2SAT 97; BMI 27.4
--- NOTE | 2025-02-28 14:13 | ED_ITS ---
HPI - General Adult General Chief complaint: Abdominal Pain Stated complaint: kidney stones? Time Seen by Provider: 02/28/25 17:12 Source: patient, RN notes reviewed and old records reviewed Mode of arrival: ambulatory Limitations: no limitations History of Present Illness ED Provider: Hussein HPI narrative: 69-year-old male with past medical history significant for atrial fibrillation on Eliquis, coronary artery disease, pacemaker implantation due to sick sinus syndrome, GERD presents for evaluation of left-sided abdominal pain. Patient reports left lower abdominal pain radiating to his back for the last 2 weeks or so. He would associated nausea with bilious vomiting He was status post appendectomy and cholecystectomy. The patient reports a constant, dull, 3/10 pain which occasionally spikes as high as a 7/10 He reports having had multiple bowel movements today and does not feel constipated. No fevers or chills pain Denies any sick contacts Related Data Home Medications ?Medication ?Instructions ?Recorded ?Confirmed rosuvastatin 40 mg tablet (Crestor) 40 mg PO BEDTIME c hloestrol 04/25/20 12/21/24 oxycodone 10 mg tablet 10 mg PO Q5H PRN Moderate Pa in 04/26/20 12/21/24 (Scale Score 5-6) divalproex 250 mg tablet,extended 250 mg PO BEDTIME 12/21/24 release 24 hr (Depakote ER) ezetimibe 10 mg tablet (Zetia) 10 mg PO DAILY 10/24/20 12/21/24 multivitamin (Daily Vitamin 1 tab PO DAILY 10/24/20 Formula tablet) ranolazine 1,000 mg 1,000 mg PO BID 09/10/22 tablet,extended release,12 hr lisinopril 5 mg tablet 5 mg PO DAILY 12/09/2212/21 pantoprazole 40 mg tablet,delayed 40 mg PO DAILY 09/1112/21/24 release metoprolol tartrate 100 mg tablet 100 mg PO BID 12/21/24 aspirin 81 mg tablet,delayed 81 mg PO QAM 09/01/24 release Previous Rx's ?Medication ?Instructions ?Recorded hyoscyamine sulfate 0.125 mg 0.125 mg PO BID-QID PRN d yspepsia 06/23/23 disintegrating tablet #30 tabs nitroglycerin 0.4 mg sublingual 0.4 mg sublingual Q5M PRN chest 06/23/23 tablet (Nitrostat) pain #25 tabs ondansetron 4 mg disintegrating 4 mg PO Q8H PRN nausea and 09/02/23 tablet vomiting #20 tabs mesalamine 0.375 gram 1.5 g (4 x 0.375 gram) PO QA M #120 09/12/23 capsule,extended release 24 hr caps (Apriso) isosorbide mononitrate 60 mg 60 mg PO DAILY #90 tabs 1 06/15/23 tablet,extended release 24 hr esomeprazole magnesium 40 mg 40 mg PO QAM #30 caps 12/31 capsule,delayed release amlodipine 5 mg tablet 5 mg PO DAILY #90 tabs 12/21 apixaban 5 mg tablet (Eliquis) 5 mg PO BID #180 tabs 0 01/14/25 magnesium citrate 148 ml PO BID PRN constipati on 02/28/25 #296 mL polyethylene glycol 3350 17 17 g PO DAILY 2 weeks #238 grams 02/28/25 gram/dose oral powder (Miralax) Allergies Allergy/AdvReac Type Severity Reaction Status Date / Time bee pollen (BEE STINGS) Allergy Severe ANAPHYLAXIS Verified 02/28/25 14:12 indomethacin (Indocin) Allergy Severe anaphylaxis Verified 02/28/25 14:12 tramadol (Ultram) Allergy Severe anaphylaxis Verified 02/28/25 14:12 fentanyl AdvReac Intermediate Anxiety Verified 02/28/25 14:12 Review of Systems 2 Constitutional: Constitutional: Denies body ache(s), Denies chills, Denies fever(s) and Denies headache(s) Eyes: Eyes: Denies blurry vision ENT: Denies headache(s) Cardiovascular: Cardiovascular: Denies chest pain and Denies dyspnea on exertion Respiratory: Respiratory: Denies cough and Denies dyspnea on exertion Gastrointestinal: Gastrointestinal: Reports abdominal pain, Denies melena, Denies hematochezia, Denies constipation, Reports diarrhea, Reports loose stools, Reports nausea and Reports vomiting Musculoskeletal: Musculoskeletal: Denies back pain Integumentary/Breasts: Skin/Breast: Denies rash Neurologic: Denies headache(s) Psychiatric: Psychiatric: Denies anxiety PMFSH Past Medical History Medical History Nicotine dependence, cigarettes, uncomplicated Elevated cholesterol History of chemotherapy Obstructive sleep apnea (~2018) On anticoagulant therapy DVT (deep venous thrombosis) Essential hypertension Tubular adenoma of colon COVID-19 vaccine administered Seizures (~04/2020) GERD (gastroesophageal reflux disease) Esophagitis Atherosclerotic cardiovascular disease Psychotic disorder Syncope Headache Myocardial infarction Pacemaker (~05/2013) Tremor Brain bleed CAD (coronary artery disease) Surgical History Hx of shoulder surgery History of total left knee replacement History of ERCP History of spinal surgery History of colonoscopy (~09/2020) History of right knee surgery (~12/2013) History of total right hip replacement (~06/2012) History of cholecystectomy History of cardiac catheterization History of permanent cardiac pacemaker placement (~05/2013) History of esophagogastroduodenoscopy (EGD) (~09/2020) History of appendectomy Stented coronary artery Family History Family History Father Heavy cigarette smoker Throat cancer Mother Heart disease Social History Social History Household Members: None Household Members Other:: shares house with a friend Housing: House Are you a primary personal carer to a significant other at home: No Do you presently have visiting nurse or other home services: No Alcohol intake: never Comment: resting eyes closed Patient Tobacco Use Status: Current someday Tobacco user Tobacco use type: Cigarette Years Smoked: 8 +/- Smoked in Last 30 Days: Yes e-Cigarette/Vaping Use: Never Used Second Hand Smoke Exposure: No Use of substances other than those prescribed or required for medical reasons: No Advance Directives: No Advance Directives Information Provided: No Advance Directives Date on File: 12/16/20 Do you have a plan to hurt others: No Plan service: No Current occupational status: employed and retired Physical Exam ED Vital Signs: Vital Signs - 24 hr 02/28/25 14:10 02/28/25 17:21 02/28/25 19:32 Temperature 97.2 F 98.0 F Pulse Rate 68 65 61 Respiratory Rate 18 16 18 Blood Pressure 153/89 H 183/94 H 178/84 H Pulse Oximetry 97 97 93 Oxygen Delivery Method Room Air Room Air Room Air BMI result Body Mass Index 27.4 Const General: healthy appearing, comfortable, no acute distress, alert and awake Nutritional Appearance: well nourished Orientation/consciousness: patient oriented x3 HENMT Head: Yes normocephalic and Yes atraumatic Throat: Yes posterior oropharynx normal Eyes Eyelids: Yes eyelids normal Conjunctivae: conjunctivae normal Sclerae: sclerae normal Corneas: corneas normal Pupils: Equal, round and reactive pupils present EOM: EOMs intact bilaterally Neck Neck: Yes full ROM Resp Effort & Inspection: normal respiratory effort, able to speak in complete sentences and not labored Cardio Rate: regular rate Rhythm: regular rhythm GI Inspection: No distended Palpation (GI): Soft to palpation, not firm, Tenderness to palpation present (GI) in the LLQ, no guarding and not rigid Skin General skin exam: no rashes or lesions noted and elasticity normal Neuro General: patient oriented x3 Cranial nerves: Yes CN's II-XII intact bilaterally, Yes Equal, round and reactive pupils present and Yes Bilaterally intact EOM present Cognition (Neuro): normal cognition Extrem Other: Moving all extremities well without any obvious deformities Course Course Course Narrative: This is a Rapid Medical Examination (RME) performed by Denisha Perez PA-C in triage. Full HPI, ROS, assessment and treatment plan per primary provider in the Main ED. Hx: 69 yo M here for eval of LLQ pain rad to RLQ x2 weeks. assoc N/V, hesitant to eat d/t symptoms. hx of my gallbladder ruptured , had ERCP after and had stones w/in ducts. states this feels similar. PE/vitals: abd distended, diffusely ttp, no reound or guarding Plan: labs, UA - will defer imaging Medications Administered Discontinued Medications Generic Name Dose Route Start Last Admin Trade Name Freq PRN Reason Stop Dose Admin Lactated Ringer's 1,000 mls @ 999 mls/hr 02/28/25 17:45 02/28/25 17:52 Lr IV 02/28/25 18:45 999 mls/hr .Q1H1M CRICKET Administration Iohexol 85 ml 02/28/25 18:29 02/28/25 18:29 Iohexol 350 Mg/Ml 100 Ml Infus..Btl IV 02/28/25 18:30 85 ml ONCE ONE Administration Morphine Sulfate 4 mg 02/28/25 17:40 02/28/25 17:55 Morphine Sulfate 4 Mg/Ml Cartridge IVPUSH 02/28/25 17:41 4 mg ONCE ONE Administration Protocol Ondansetron HCl 4 mg 02/28/25 17:33 02/28/25 17:55 Ondansetron Hcl 4 Mg/2 Ml Vial IVPUSH 02/28/25 17:34 4 mg ONCE ONE Administration Medical Decision Making Medical Decision Making [facility] Narrative: 69-year-old male presents for evaluation of left-sided abdominal pain. His pain has been present for several weeks but worsening with associated nausea and vomiting. He reports having had multiple bowel movements today and therefore this is less likely to be an obstruction. denies any black or bloody stool. He is had a previous cholecystectomy and appendectomy. He was no fevers or chills to suggest infectious cause, denies any history of diverticulitis. His pain does seem colicky in nature and could be obstructive uropathy, urinalysis is still pending. Given his level of discomfort get a CT scan of the abdomen pelvis to better evaluate. Differential Diagnosis Differential Diagnoses: The differential diagnosis associated with the presentation includes Abdominal pain Diverticulitis Constipation Obstructive uropathy Colitis Ileus Lab Data [facility] Lab Attestation statement: I reviewed the patient's lab results. No leukocytosis. The patient has a stable, normocytic anemia. There was no left shift. No significant electrolyte abnormalities warranting dimension. The patient's BUN is just above normal at 18 but consistent with his baseline. Creatinine within normal limits LFTs within normal limits. 02/28/25 15:16 02/28/25 15:15 Labs: Lab Results 02/28/25 02/28/25 02/28/25 Range/Units 15:15 15:16 19:37 WBC 10.3 (4.8-10.8) X10*3/uL RBC 4.32 L (4.60-5.80) X10*6/uL Hgb 13.4 L (14.0-18.0) g/dl Hct 39.6 L (42.0-52.0) % MCV 91.7 (80.0-98.0) fL MCH 31.0 (27.0-33.0) pg MCHC 33.8 (31.0-36.0) g/dl RDW 12.6 (11.0-16.0) % Plt Count 270 (160-400) X10*3/uL MPV 8.4 L (9.4-12.4) fL Immature Gran % (Auto) 0.3 (0.0-0.4) % Neut % (Auto) 65.2 (45-73) % Lymph % (Auto) 22.3 (20-40) % Summers % (Auto) 9.0 (2-11) % Eos % (Auto) 2.5 (0-4) % Baso % (Auto) 0.7 (0-2) % Lymph # (Auto) 2.3 (1.2-4.9) X10*3/uL Summers # (Auto) 0.9 (0.1-1.2) X10*3/uL Eos # (Auto) 0.3 (0.0-0.4) X10*3/uL Baso # (Auto) 0.1 (0.0-0.2) X10*3/uL Abs Immat Gran (auto) 0.03 (0.00-0.03) X10*3/uL Absolute Neuts (auto) 6.7 (2.0-8.3) x10*3/uL Absolute Nucleated RBC 0.000 (0.0-0.012) X10*3/uL Nucleated RBC % (auto) 0.0 (0.0-0.2) /100WBC Sodium 142 (135-145) mmol/L Potassium 3.9 (3.3-5.1) mmol/L Chloride 105 (96-108) mmol/L Carbon Dioxide 30 H (22-29) mmol/L Anion Gap 11 L (12-20) BUN 18 H (9-16) mg/dL Creatinine 0.69 (0.5-1.4) mg/dL Estim Creat Clear Calc 104.5 Estimated GFR > 60 Random Glucose 99 (60-115) mg/dL Calcium 9.0 (8.4-10.2) mg/dL Magnesium 2.2 (1.6-2.6) mg/dL Total Bilirubin 0.3 (0.0-1.0) mg/dL Direct Bilirubin 0.1 (0.0-0.5) mg/dL AST 22 (5-37) U/L ALT 11 (0-40) U/L Alkaline Phosphatase 89 (39-117) U/L Total Protein 6.8 (6.5-8.0) g/dL Albumin 4.1 (3.5-5.0) g/dL Lipase 13 (8-78) U/L Urine Color Yellow Urine Appearance Clear Urine pH 7.0 (5.0-9.0) Ur Specific [place] >= 1.030 H (1.005-1.025) Urine Protein Negative (Neg-Trace) mg/dL Urine Glucose (UA) Negative (Negative) mg/dL Urine Ketones Negative (Negative) mg/dL Urine Blood Negative (Negative) Urine Nitrite Negative (Negative) Ur Leukocyte Esterase Negative (Negative) Discharge Plan Discharge Clinical Impression: Abdominal pain, Constipation Patient Disposition: Home, Self-Care Instructions: Constipation (ED) Additional Instructions: Your CT scan did not show any acute findings but you do have a significant amount of constipation. Increase fluid and fiber intake in your diet. Take magnesium citrate half a bottle tomorrow morning and half around 4:00 p.m. if you have not had significant bowel movement Follow up with your GI doctor Prescriptions: New magnesium citrate Solution 148 ml PO BID PRN (Reason: constipation) Qty: 296 0RF polyethylene glycol 3350 [Miralax] 17 gram/dose powder 17 g PO DAILY 14 Days Qty: 238 0RF No Action hyoscyamine sulfate 0.125 mg tablet,disintegrating 0.125 mg PO BID-QID PRN (Reason: dyspepsia) Qty: 30 0RF nitroglycerin [Nitrostat] 0.4 mg tablet, sublingual 0.4 mg sublingual Q5M PRN (Reason: chest pain) Qty: 25 2RF Rx Instructions: Do not exceed 3 doses per chest pain episode isosorbide mononitrate 60 mg tablet extended release 24 hr 60 mg PO DAILY Qty: 90 3RF esomeprazole magnesium 40 mg capsule,delayed release(DR/EC) 40 mg PO QAM Qty: 30 3RF Eliquis 5 mg tablet 5 mg PO BID Qty: 180 3RF rosuvastatin [Crestor] 40 mg tablet 40 mg PO BEDTIME oxycodone 10 mg Tablet 10 mg PO Q5H PRN (Reason: Moderate Pain (Scale Score 5-6)) divalproex [Depakote ER] 250 mg tablet extended release 24 hr 250 mg PO BEDTIME ranolazine 1,000 mg tablet extended release 12 hr 1,000 mg PO BID ondansetron 4 mg tablet,disintegrating 4 mg PO Q8H PRN (Reason: nausea and vomiting) Qty: 20 0RF metoprolol tartrate 100 mg tablet 100 mg PO BID aspirin 81 mg tablet,delayed release (DR/EC) 81 mg PO QAM ezetimibe [Zetia] 10 mg tablet 10 mg PO DAILY multivitamin [Daily Vitamin Formula] Tablet 1 tab PO DAILY amlodipine 5 mg tablet 5 mg PO DAILY Qty: 90 1RF Rx Instructions: dose reduced lisinopril 5 mg tablet 5 mg PO DAILY pantoprazole 40 mg tablet,delayed release (DR/EC) 40 mg PO DAILY mesalamine [Apriso] 0.375 gram capsule,extended release 24hr 1.5 g PO QAM Qty: 120 0RF Print Language: Kinyarwanda
[2025-02-28 15:20] LABS: MANUAL DIFF FLAG NO
[2025-02-28 15:22] LABS: Hematocrit 39.6 % (42.0-52.0); Hemoglobin 13.4 g/dl (14.0-18.0); Imm Gran Abs Auto 0.03 X10*3/uL (0.00-0.03); Imm Gran Pct Auto 0.3 % (0.0-0.4); Lymphocytes Absolute Auto 2.3 X10*3/uL (1.2-4.9); Mean Corpuscular HGB Conc 33.8 g/dl (31.0-36.0); Mean Corpuscular Hemoglobin 31.0 pg (27.0-33.0); Mean Corpuscular Volume 91.7 fL (80.0-98.0); NRBC Abs Auto 0.000 X10*3/uL (0.0-0.012); NRBC Pct Auto 0.0 /100WBC (0.0-0.2); Platelet Count 270 X10*3/uL (160-400); Red Blood Count 4.32 X10*6/uL (4.60-5.80); White Blood Count 10.3 X10*3/uL (4.8-10.8)
[2025-02-28 15:45] LABS: Alanine Aminotransferase 11 U/L (0-40); Albumin Level 4.1 g/dL (3.5-5.0); Alkaline Phosphatase 89 U/L (39-117); Anion Gap 11 (12-20); Aspartate Amino Transferase 22 U/L (5-37); Blood Urea Nitrogen 18 mg/dL (9-16); Calcium 9.0 mg/dL (8.4-10.2); Carbon Dioxide 30 mmol/L (22-29); Chloride 105 mmol/L (96-108); Creatinine Clr Calc Pharmacy 104.5; Estimated Glomerular Filt Rate > 60; Lipase 13 U/L (8-78); Magnesium 2.2 mg/dL (1.6-2.6); Potassium 3.9 mmol/L (3.3-5.1); Sodium 142 mmol/L (135-145); Total Protein 6.8 g/dL (6.5-8.0)
[2025-02-28 17:21] VITALS: BP 183/94; PULSE 65; RESP 16; O2SAT 97
[2025-02-28] MEDS: Lactated Ringers 1,000 ML 999 ML IV (17:52)
--- OUTSIDE RECORDS SUMMARY | 2025-02-28 18:24 | XMS_ITS | Encounter Summary ---
Author Organization [employer] Address [address] [place] [address] [address] [place] [address] Care Team Providers Care Ballaster Name Role Phone Name, Memo ARREDONDO Primary Care Provider [phone] Encounter Details Date Type Department Care Team ([facility] [address] Contact Info) Description 02/28/2025 Orders Only GENERIC EXTERNAL DATA DEPARTMENT Provider, [...] housing situation today? I have lesly tirado 11/11/[address] you li ve. Do you have problems with any of the following? None of the above 11/11/2024 Food Insecurity Answer Date Recorded Within the past 12 months, y ou worried that your food would run out before you got money to buy more: Never True 11/11/2024 Within the past 12 months,th e food you bought just didn't last and you didn't have enough money to get more: Never True 10/2024 Transportation Answer Date Recorded In the past 12 months, has l ack of transportation kept you from medical appts, meetings, work or from getting things needed for daily living? No 11/11/2024 Utilities Answer Date Recorded In the past 12 months, has t he electric, gas, oil or water company threatened to shut off services in your home? No 11/11/2024 Depression Answer Date Recorded Patient Health Questionnaire-2 Score 0 07/17/2023 Internet Access Answer Date Recorded Internet Access Q1 Yes 11/11/2024 Internet Access Q2 Not on file 11/11/2024 Sex and Gender Information Value Date Recorded Sex Assigned at Male 04/08/2022 10:20 AM EDT Legal Sex Male 10:20 AM EDT Gender Identity Male 04/08/2022 10:20 AM EDT Sexual Orientation Straight 04/08/2022 10 :20 AM EDT documented as of this encounter Plan of Treatment Upcoming Encounters Date Type Department Care Team ([facility] st Contact Info) Description 04/05/2025 10:00 AM EDT Office Visit [address] [address] Name, MD Memo [address] [place] [phone] 04/08/2025 9:00 AM EDT Telemedicine [address] [phone] 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 RN documented as of this encounter Procedures Procedure Name Priority Date/Time Associated Diagnosis Comments CBC WITH AUTO DIFFERENTIAL Routine 02/28/2025 3:16 PM EDT MAGNESIUM Routine 02/28/2025 3:15 PM EDT LIPASE Routine 02/28/2025 3:15 PM EDT HEPATIC FUNCTION PANEL Routine 02/28/2025 3:15 PM EDT BASIC METABOLIC PANEL Routine 02/28/2025 3:15 PM EDT documented in this encounter Results * (ABNORMAL) CBC auto differential (02/28/2025 3:16 PM EDT) White Blood Count 10.3 4.8 - 10.8 X10*3/uL [facility] Red Blood Count 4.32(L) 4.60 - 5.80 X10*6/uL [facility] Hemoglobin 13.4(L) 14.0 - 18.0 g/dl [facility] Hematocrit 39.6(L) 42.0 - 52.0 % [facility] Mean Corpuscular Volume 91.7 80.0 - 98.0 fL [facility] Mean Corpuscular Hemoglobin 31.0 27.0 - 33.0 pg [facility] Mean Corpuscular HGB Conc 33.8 31.0 - 36.0 g/dl [facility] Red Cell Distribution Width 12.6 11.0 - 16.0 % [facility] Platelet Count 270 160 - 400 X10*3/uL [facility] Mean Platelet Volume 8.4(L) 9.4 - 12.4 fL [facility] Neutrophils Percent Auto 65.2 45 - 73 % [facility] Imm Gran Pct Auto 0.3 0.0 - 0.4 % [facility] Lymphocytes Percent Auto 22.3 20 - 40 % [facility] Monocytes Percent Auto 9.0 2 - 11 % [facility] Eosinophils Percent Auto 2.5 0 - 4 % [facility] Basophils Percent Auto 0.7 0 - 2 % [facility] NRBC Pct Auto 0.0 0.0 - 0.2 /100WBC [facility] Neutrophils Absolute Auto 6.7 2.0 - 8.3 x10*3/uL [facility] Imm Gran Abs Auto 0.03 0.00 - 0.03 X10*3/uL [facility] Lymphocytes Absolute Auto 2.3 1.2 - 4.9 X10*3/uL [facility] Monocytes Absolute Auto 0.9 0.1 - 1.2 X10*3/uL [facility] Eosinophils Absolute Auto 0.3 0.0 - 0.4 X10*3/uL [facility] Basophils Absolute Auto 0.1 0.0 - 0.2 X10*3/uL [facility] NRBC Abs Auto 0.000 0.0 - 0.012 X10*3/uL [facility] 02/28/2025 3:16 PM EDT 02/28/2025 3:18 PM EDT Generic External Data Provider LAB BLOOD ORDERAB LES Final Result Performing Organization Address [facility] de Phone Number [facility] [address] [place] [phone] * Lipase (02/28/2025 3:15 PM EDT) Pathologist [facility] Lipase 13 8 - 78 U/L [facility] 02/28/2025 3:15 PM EDT 02/28/2025 3:18 PM EDT Generic External Data Provider LAB BLOOD ORDERAB LES Final Result Performing Organization Address [facility] Phone Number [facility] [address] [place] [phone] * Magnesium (02/28/2025 3:15 PM EDT) [facility] Magnesium 2.2 1.6 - 2.6 mg/dL [facility] 02/28/2025 3:15 PM EDT 02/28/2025 3:18 PM EDT Generic External Data Provider LAB BLOOD ORDERAB LES Final Result Performing Organization Address [facility] de Phone Number [facility] [address] [place] [phone] * (ABNORMAL) Basic Metabolic Panel (02/28/2025 3:15 PM EDT) [facility] Sodium 142 135 - 145 mmol/L [facility] Potassium 3.9 3.3 - 5.1 mmol/L [facility] Chloride 105 96 - 108 mmol/L [facility] Carbon Dioxide 30(H) 22 - 29 mmol/L [facility] Anion Gap 11(L) 12 - 20 [facility] Urea Nitrogen (BUN) 18(H) 9 - 16 mg/dL [facility] Creatinine, Serum 0.69 0.5 - 1.4 mg/dL [facility] Creatinine Clr Calc Pharmacy 104.5 [facility] Comment:eGFR (calculated fro m the MDRD study equation) and eCrCl(calculated from the Cockcroft-Gault equation) are based ondifferent parameters and may not yield comparable results.If eCrCl result is absurd, please check patient'sheight/weight. Estimated Glomerular Filt Rate >60 [facility] Comment:Chronic Kidney Disea se: Estimated GFR < 60 mL/min/[id number] Kidney Disease: Estimated GFR < 15 mL/min/1.73m2 Glucose 99 60 - 115 mg/dL [facility] Calcium 9.0 8.4 - 10.2 mg/dL [facility] 02/28/2025 3:15 PM EDT 02/28/2025 3:18 PM EDT us Generic External Data Provider LAB BLOOD ORDERAB LES Final Result [facility] [address] [place] [phone] * Hepatic Function Panel (02/28/2025 3:15 PM EDT) Bilirubin, Total 0.3 0.0 - 1.0 mg/dL [facility] Bilirubin, Direct 0.1 0.0 - 0.5 mg/dL [facility] Aspartate Amino Transferase 22 5 - 37 U/L [facility] Alanine Aminotransferase 11 0 - 40 U/L [facility] Total Protein 6.8 6.5 - 8.0 g/dL [facility] Albumin Level 4.1 3.5 - 5.0 g/dL [facility] Alkaline Phosphatase 89 39 - 117 U/L [facility] 02/28/2025 3:15 PM EDT 02/28/2025 3:18 PM EDT us Generic External Data Provider LAB BLOOD ORDERAB LES Final Result [facility] [address] [place] [phone] documented in this encounter Visit Diagnoses Not on filedocumented in this encounter Additional Health Concerns Assessment Noted Time PHQ-9 Depression Total Score: 0 07/17/19 24 10:49 AM EST documented as of this encounter Care Teams Ballaster Relationship Specialty Start Date End Date Name, MD Memo [address] [place] [address] PCP - General Family Medicine 08/30/15 documented as of this encounter
--- OUTSIDE RECORDS SUMMARY | 2025-02-28 18:24 | XMS_ITS | Encounter Summary ---
Author Organization [employer] Address [address] [place] [address] 7t [place] [address] Care Team Providers Care Souvenir And Novelty Maker Name Role Phone Name, Memo ARREDONDO Primary Care Provider [phone] Reason for Visit * Reason Comments Med Refill Encounter Details Date Type Department Care Team ([facility] st Contact Info) Description 04/30/2023 Refill [facility] MED[facility]INE 230 [place], [place] [phone] [facility] 230 [place], [place] [phone] Coronary artery disease involving [place] heart without angina pectoris, unspecified vessel or [...] Care Team (Late st Contact Info) Description 04/05/2025 10:00 AM EDT Office Visit [facility] MEDICINE [address] [place] [address] NameMemo MD [address] [place] [address] 04/08/2025 9:00 AM EDT Telemedicine [address] [address] 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, VON documented as of this encounter Visit Diagnoses Diagnosis 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
--- OUTSIDE RECORDS SUMMARY | 2025-02-28 18:24 | XMS_ITS | Encounter Summary ---
Author Organization [employer] Address [address] [place] [address] 7 [place] [address] Care Team Providers Care Operations Consultant Name Role Phone Name, Memo ARREDONDO Primary Care Provider [phone] Reason for Visit * Reason Comments Med Refill Encounter Details Date Type Department Care Team ([facility] st Contact Info) Description 02/09/2025 Refill [facility] MEDICINE 230 [place], [place] [phone] Name, MD Memo 230 [place] [address] Chronic pain syndrome Social History Tobacco Use [...] Description 04/05/2025 10:00 AM EDT Office Visit [facility] MEDICINE [address] [place] [address] Name, MD Memo [address] [place] [address] 04/08/2025 9:00 AM EDT Telemedicine [address] [address] 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, VON documented as of this encounter Visit Diagnoses Diagnosis Chronic pain syndrome documented in this encounter Additional Health Concerns Assessment Noted Time PHQ-9 Depression Total Score: 0 07/17/19 24 10:49 AM EST documented as of this encounter Care Teams Operations Consultant Relationship Specialty Start Date End Date Name, MD Memo [address] [place] [address] PCP - General Family Medicine 08/30/15 documented as of this encounter
--- OUTSIDE RECORDS SUMMARY | 2025-02-28 18:24 | XMS_ITS | Encounter Summary ---
Author Organization [employer] Address [address] [place] [address] 7 [place] [address] Care Team Providers Care Shoe Dresser Name Role Phone Name, Memo ARREDONDO Primary Care Provider [phone] Reason for Visit * Reason Comments Med Refill Encounter Details Date Type Department Care Team ([facility] st Contact Info) Description 02/03/2024 Refill [facility] MEDICINE 230 [place], [place] [phone] Name, MD Memo 230 [place] [address] Chronic pain syndrome Social History Tobacco Use [...] Description 04/05/2025 10:00 AM EDT Office Visit [facility] MEDICINE [address] [place] [address] NameMemo MD [address] [place] [address] 04/08/2025 9:00 AM EDT Telemedicine [facility] MED[facility]INE [address] [place] [address] 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, VON documented as of this encounter Visit Diagnoses Diagnosis Chronic pain syndrome documented in this encounter Additional Health Concerns Assessment Noted Time PHQ-9 Depression Total Score: 0 07/17/19 24 10:49 AM EST documented as of this encounter Care Teams Shoe Dresser Relationship Specialty Start Date End Date Memo Alex MD [address] [place] [address] PCP - General Family Medicine 08/30/15 documented as of this encounter
--- OUTSIDE RECORDS SUMMARY | 2025-02-28 18:24 | XMS_ITS | Encounter Summary ---
Author Organization [facility] Address [address] [place] [address] [place] [address] Phone Care Team Providers Care Dance Master Name Role Phone Name, Memo ARREDONDO Primary Care Provider [phone] Encounter Details Date Type Department Care Team (Late st Contact Info) Description 01/19/2018 Procedure Pass [facility] [address] [place] [address] Social History Tobacco Use Types Packs/Day Years Used Date Smoking Tobacco: Every Day Sex and Gender Information Value Date Recorded Sex Assigned at Not on file Legal Sex Male 5:00 PM EST Gender Identity Not on file Sexual Orientation Not on file documented as of this encounter Plan of Treatment Not on file documented as of this encounter Visit Diagnoses Not on filedocumented in this encounter Care Teams Dance Master Relationship Specialty Start Date End Date Name, MD Memo 230 [place] [address] PCP - General Geriatric Psychiatry 12/29/17 documented as of this encounter Additional Source Comments The information contained in this document represents components of the legal health record. It is not the complete legal health record.[facility]
--- OUTSIDE RECORDS SUMMARY | 2025-02-28 18:24 | XMS_ITS | Encounter Summary ---
Author Organization [employer] Address [address] [place] [address] 7 [place] [address] Care Team Providers Care Hurricane Tracker Name Role Phone Name, Memo ARREDONDO Primary Care Provider Encounter Details Date Type Department Care Team (Latest Contact Info) Description 07/09/2021 Abstract [facility] CONVERSIONS Dental, Provider, DDS Social History [...] Description 04/05/2025 10:00 AM EDT Office Visit [facility] MEDICINE [address] [place] [address] Name, MD Memo [address] [place] [address] 04/08/2025 9:00 AM EDT Telemedicine [facility] MEDICINE [address] [place] [address] 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 RN documented as of this encounter Visit Diagnoses Not on filedocumented in this encounter Care Teams Hurricane Tracker Relationship Specialty Start Date End Date Memo Alex MD [address] [place] [address] PCP - General Family Medicine 08/30/15 documented as of this encounter
--- OUTSIDE RECORDS SUMMARY | 2025-02-28 18:24 | XMS_ITS | Encounter Summary ---
Author Organization [employer] Address 75 [facility] 7t [place] [address] Care Team Providers Care Ballistics Professor Name Role Phone Name, Memo ARREDONDO Primary Care Provider [phone] Reason for Visit * Reason Onset Date Comments triage 06/06/2022 Encounter Details Date Type Department Care Team ([facility] st Contact Info) Description 06/06/2022 Telephone [facility] 230 [place] [address] Name, MD Memo 230 [place] [address] triage Social History Tobacco Use Types Packs/Day [...] visit with PRIYANKA Schwab at 1115am . [facility] unable to schedule a tele visit and [...] Description 04/05/2025 10:00 AM EDT Office Visit [address] [address] Name, MD Memo [address] [place] [address] 04/08/2025 9:00 AM EDT Telemedicine [facility] [address] [place] [address] 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 RN documented as of this encounter Visit Diagnoses Not on filedocumented in this encounter Care Teams Ballistics Professor Relationship Specialty Start Date End Date Name, MD Memo [address] [place] [address] PCP - General Family Medicine 08/30/15 documented as of this encounter
--- OUTSIDE RECORDS SUMMARY | 2025-02-28 18:24 | XMS_ITS | Encounter Summary ---
Author Organization [employer] Address [address] [place] [address] 7 [place] [address] Care Team Providers Care Turning Machine Operator Name Role Phone Name, Memo ARREDONDO Primary Care Provider [phone] Reason for Visit * Reason Onset Date Comments Nurse Triage 09/03/2023 Encounter Details Date Type Department Care Team ([facility] st Contact Info) Description 09/03/2023 Telephone [facility] MEDICINE 230 [place], [place] [phone] Name, MD Memo 230 [place] [address] Nurse Triage Social History Tobacco Use Types [...] EDT Triage call Pt was seen in [facility] Ed 09/02/23 , report is on the [...] if feels that symptoms continue to worsen. Patient Admitting Clerk will forward this triage to PCP and nursing team. Pt agreeswith disposition and home care advised. Insurance is verified as active. Protocol Used: Abdominal Pain - Male (Adult) Protocol-Based Disposition: Go to ED/[facility] Now (or to Office with PCP Approval) [...] accepted this outcome Pt inform went to [facility] ER on 09/02/23 but is still having buffet server pain documented in this encounter Plan of Treatment Upcoming Encounters Date Type Department Care Team (Late st Contact Info) Description 04/05/2025 10:00 AM EDT Office Visit [facility] MEDICINE [address] [place] [address] Name, MD Memo [address] [place] [address] 04/08/2025 9:00 AM EDT Telemedicine [facility] [address] [place] [address] 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, VON documented as of this encounter Visit Diagnoses Not on filedocumented in this encounter Additional Health Concerns Assessment Noted Time PHQ-9 Depression Total Score: 0 07/17/19 10:49 AM EST documented as of this encounter Care Teams Turning Machine Operator Relationship Specialty Start Date End Date NameMemo MD [address] [place] [address] PCP - General Family Medicine 08/30/15 documented as of this encounter
--- OUTSIDE RECORDS SUMMARY | 2025-02-28 18:24 | XMS_ITS | Encounter Summary ---
Author Organization [employer] Address [address] [place] [address] 7t [place] [address] Care Team Providers Care Pin Drafting Machine Operator Name Role Phone Name, Memo ARREDONDO Primary Care Provider [phone] Reason for Visit * Reason Onset Date Comments Med Refill 09/29/2024 Encounter Details Date Type Department Care Team ([facility] st Contact Info) Description 09/29/2024 Telephone [facility] [address] [place], [place] [phone] Name, MD Memo 230 [place] [address] Med Refill Social History Tobacco Use Types [...] immediate release tablet To be sent to: [facility] - [place], [place] - [address] [place] [address] *pt wanting an early fill because will be leaving [facility] in the afternoon to [place] documented in this encounter Plan of Treatment Upcoming Encounters Date Type Department Care Team ([facility] st Contact Info) Description 04/05/2025 10:00 AM EDT Office Visit [facility] MEDICINE [address] [place] [address] Name, MD Memo [address] [place] [address] 04/08/2025 9:00 AM EDT Telemedicine [facility] MEDICINE [address] [place] [address] 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 RN documented as of this encounter Visit Diagnoses Not on filedocumented in this encounter Additional Health Concerns Assessment Noted Time PHQ-9 Depression Total Score: 0 07/17/19 24 10:49 AM EST documented as of this encounter Care Teams Pin Drafting Machine Operator Relationship Specialty Start Date End Date Name, MD Memo 230 [place] [address] PCP - General Family Medicine 08/30/15 documented as of this encounter
--- OUTSIDE RECORDS SUMMARY | 2025-02-28 18:24 | XMS_ITS | Encounter Summary ---
Author Organization [employer] Address [address] [place] [address] 7t [place] [address] Care Team Providers Care Control Clerk Subassembly Name Role Phone Name, Memo ARREDONDO Primary Care Provider [phone] Encounter Details Date Type Department Care Team ([facility] Contact Info) Description 06/06/2022 Telephone [facility] MEDICINE [address] [place] [address] [phone] NameMemo MD [address] [place] [address] Social History Tobacco Use Types Packs/Day Years [...] Description 04/05/2025 10:00 AM EDT Office Visit [facility] MEDICINE [address] [place] [address] [phone] Memo Alex MD [address] [place] [address] [phone] 04/08/2025 9:00 AM EDT Telemedicine [facility] MEDICINE [address] [place] [address] 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, RN documented as of this encounter Visit Diagnoses Not on filedocumented in this encounter Care Teams Control Clerk Subassembly Relationship Specialty Start Date End Date Name, MD Memo 230 [place] [address] PCP - General Family Medicine 08/30/15 documented as of this encounter
--- OUTSIDE RECORDS SUMMARY | 2025-02-28 18:24 | XMS_ITS | Encounter Summary ---
Author Organization [employer] Address [address] [place] [address] 7 [place] [address] Care Team Providers Care Publication Manager Name Role Phone Name, Memo ARREDONDO Primary Care Provider [phone] Reason for Visit * Reason Onset Date Comments ER Follow-up 09/16/2024 Encounter Details Date Type Department Care Team ([facility] st Contact Info) Description 09/16/2024 Telephone [facility] MEDICINE 230 [place], [place] [phone] Name, MD Memo 230 [place] [address] ER Follow-up Social History Tobacco Use Types [...] 09/16/2024 10:30 AM EDT Pt evaluated in [facility] ED 09/15/24 Dx: Syncope, concussion. Pt left [...] ED visit on : Date: 09/15/24 Hospital: [facility] Seen for: Concussion Symptomatic No *if yes message should go to Triage Patient advised will forward to team nurse for follow up Contact pt at [phone] documented in this encounter Plan of Treatment Upcoming Encounters Date Type Department Care Team (Late st Contact Info) Description 04/05/2025 10:00 AM EDT Office Visit [address] [address] Name, MD Memo [address] [place] [address] 04/08/2025 9:00 AM EDT Telemedicine [address] [address] 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, VON documented as of this encounter Visit Diagnoses Not on filedocumented in this encounter Additional Health Concerns Assessment Noted Time PHQ-9 Depression Total Score: 0 07/17/19 24 10:49 AM EST documented as of this encounter Care Teams Publication Manager Relationship Specialty Start Date End Date Name, MD Memo [address] [place] [address] PCP - General Family Medicine 08/30/15 documented as of this encounter
--- OUTSIDE RECORDS SUMMARY | 2025-02-28 18:24 | XMS_ITS | Encounter Summary ---
Author Organization [employer] Address [address] [place] [address] 7 [place] [address] Care Team Providers Care Art Educator Name Role Phone Name, Memo ARREDONDO Primary Care Provider [phone] Reason for Visit * Reason Onset Date Comments returning call back 05/14/2022 Encounter Details Date Type Department Care Team ([facility] st Contact Info) Description 05/14/[address] [facility] MEDICINE 230 [place] [address] Name, MD Memo 230 [place] [address] returning call back Social History Tobacco Use [...] AM EST documented as of this encounter Functional Status * Over the past 2 weeks, how often have you been bothered by any of the following problems? Question Answer Date of Assessment Author Little interest or pleasure in doing things Not at all 05/14/2022 9:10 AM Olga Steven MA Feeling down, depressed, or hopeless Not at all 05/14/2022 9:10 AM Olga Steven MA Patient Health Questionnaire -2 Score 0 05/14/2022 9:10 AM EST Olga Trujillo MA documented as of this encounter Miscellaneous Notes * Telephone Encounter - Hong Niño - 05/14/2022 11:34 AM EST Tc from pt returning call. Pt requested to be called back. Please contact pt at [phone] documented in this encounter Plan of Treatment Upcoming Encounters Date Type Department Care Team (Late st Contact Info) Description 04/05/2025 10:00 AM EDT Office Visit [facility] MEDICINE [address] [place] [address] Name, MD Memo [address] [place] [address] 04/08/2025 9:00 AM EDT Telemedicine [address] [address] 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, VON documented as of this encounter Visit Diagnoses Not on filedocumented in this encounter Care Teams Art Educator Relationship Specialty Start Date End Date Name, MD Memo [address] [place] [address] PCP - General Family Medicine 08/30/15 documented as of this encounter
--- OUTSIDE RECORDS SUMMARY | 2025-02-28 18:24 | XMS_ITS | Encounter Summary ---
Author Organization [facility] Address [address] [place] [address] [place] [address] Phone Care Team Providers Care Farrowing Manager Name Role Phone Name, Memo ARREDONDO Primary Care Provider [phone] Encounter Details Date Type Department Care Team (Late st Contact Info) Description 01/19/2018 Procedure Pass [facility] Imaging [address] [place] [address] Social History Tobacco Use Types Packs/Day Years [...] on filedocumented in this encounter Care Teams Farrowing Manager Relationship Specialty Start Date End Date Name, MD Memo 230 [place] [address] PCP - General Geriatric Psychiatry 12/29/17 documented as of this encounter Additional Source Comments The information contained in this document represents components of the legal health record. It is not the complete legal health record.[facility]
--- OUTSIDE RECORDS SUMMARY | 2025-02-28 18:24 | XMS_ITS | Encounter Summary ---
Author Organization [employer] Address [address] [facility] 7t [place] [address] Care Team Providers Care Culinary Assistant Name Role Phone Name, Memo ARREDONDO Primary Care Provider [phone] Reason for Visit * Reason Onset Date Comments triage 06/05/2022 Encounter Details Date Type Department Care Team ([facility] st Contact Info) Description 06/05/2022 Telephone [facility] MEDICINE 230 [place] [address] Name, MD Memo 230 [place] [address] triage Social History Tobacco Use Types Packs/Day [...] Description 04/05/2025 10:00 AM EDT Office Visit [address] [address] Name, MD Memo [address] [place] [address] 04/08/2025 9:00 AM EDT Telemedicine [address] [address] 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 RN documented as of this encounter Visit Diagnoses Not on filedocumented in this encounter Care Teams Culinary Assistant Relationship Specialty Start Date End Date Name, MD Memo [address] [place] [address] PCP - General Family Medicine 08/30/15 documented as of this encounter
--- OUTSIDE RECORDS SUMMARY | 2025-02-28 18:25 | XMS_ITS | Encounter Summary ---
Author Organization [employer] Address [address] [place] [address] 7 [place] [address] Care Team Providers Care Guest History Clerk Name Role Phone Name, Memo ARREDONDO Primary Care Provider [phone] Reason for Visit * Reason Comments Med Refill Encounter Details Date Type Department Care Team ([facility] st Contact Info) Description 03/23/2024 Refill [facility] MEDICINE 230 [place], [place] [phone] Name, MD Memo 230 [place] [address] Social History Tobacco Use Types Packs/Day Years [...] Description 04/05/2025 10:00 AM EDT Office Visit [facility] MEDICINE [address] [place] [address] Name, MD Memo [address] [place] [address] 04/08/2025 9:00 AM EDT Telemedicine [address] [address] 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, VON documented as of this encounter Visit Diagnoses Not on filedocumented in this encounter Additional Health Concerns Assessment Noted Time PHQ-9 Depression Total Score: 0 07/17/19 24 10:49 AM EST documented as of this encounter Care Teams Guest History Clerk Relationship Specialty Start Date End Date Memo Alex MD [address] [place] [address] PCP - General Family Medicine 08/30/15 documented as of this encounter
--- OUTSIDE RECORDS SUMMARY | 2025-02-28 18:25 | XMS_ITS | Encounter Summary ---
Author Organization [employer] Address [address] [place] [address] 7 [place] [address] Care Team Providers Care Theatre Instructor Name Role Phone Name, Memo ARREDONDO Primary Care Provider Reason for Visit * Reason Comments Med Refill Encounter Details Date Type Department Care Team ([facility] st Contact Info) Description 10/25/[address] [facility] MEDICINE 230 [place], [place] [phone] Name, MD Memo 230 [place] [address] Chronic pain syndrome Social History Tobacco Use [...] Description 04/05/2025 10:00 AM EDT Office Visit [facility] MEDICINE [address] [place] [address] Name, MD Memo [address] [place] [address] 04/08/2025 9:00 AM EDT Telemedicine [address] [address] 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 RN documented as of this encounter Visit Diagnoses Diagnosis Chronic pain syndrome documented in this encounter Additional Health Concerns Assessment Noted Time PHQ-9 Depression Total Score: 9 06/27/19 23 10:17 AM EST documented as of this encounter Care Teams Theatre Instructor Relationship Specialty Start Date End Date Name, MD Memo [address] [place] [address] PCP - General Family Medicine 08/30/15 documented as of this encounter
--- OUTSIDE RECORDS SUMMARY | 2025-02-28 18:25 | XMS_ITS | Encounter Summary ---
Author Organization [employer] Address [address] [place] [address] 7 [place] [address] Care Team Providers Care Body Shop Technician Name Role Phone Name, Memo ARREDONDO Primary Care Provider [phone] Encounter Details Date Type Department Care Team (Late Contact Info) Description [facility] 230 [place], [place] [phone] Name, MD Memo 230 [place], [place] [phone] Social History Tobacco Use Types Packs/Day Years [...] Department Care Team (Late Contact Info) Description 04/05/2025 10:00 AM EDT Office Visit [facility] MEDICINE 230 [place], [place] [phone] Name, [place] [address] 04/08/2025 9:00 AM EDT Telemedicine [facility] MEDICINE [address] [place] [address] 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, RN documented as of this encounter Visit Diagnoses Not on filedocumented in this encounter Additional Health Concerns Assessment Noted Time PHQ-9 Depression Total Score: 9 06/27/19 23 10:17 AM EST documented as of this encounter Care Teams Body Shop Technician Relationship Specialty Start Date End Date Name, MD Memo [address] [place] [address] PCP - General Family Medicine 08/30/15 documented as of this encounter
--- OUTSIDE RECORDS SUMMARY | 2025-02-28 18:25 | XMS_ITS | Encounter Summary ---
Author Organization [employer] Address [address] [place] [address] 7 [place] [address] Care Team Providers Care Barmaid Name Role Phone Name, Memo ARREDONDO Primary Care Provider [phone] Reason for Visit * Reason Onset Date Comments Error 03/25/2024 Encounter Details Date Type Department Care Team ([facility] Contact Info) Description 03/25/2024 Telephone [facility] [address] [place], [place] [phone] Name, MD Memo [address] [place] [address] Error Social History Tobacco Use Types Packs/Day [...] Description 04/05/2025 10:00 AM EDT Office Visit [facility] [address] [place] [address] Name, MD Memo [address] [place] [address] 04/08/2025 9:00 AM EDT Telemedicine [facility] [address] [place] [address] 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 RN documented as of this encounter Visit Diagnoses Not on filedocumented in this encounter Additional Health Concerns Assessment Noted Time PHQ-9 Depression Total Score: 0 07/17/19 24 10:49 AM EST documented as of this encounter Care Teams Barmaid Relationship Specialty Start Date End Date NameMemo MD [address] [place] [address] PCP - General Family Medicine 08/30/15 documented as of this encounter
--- OUTSIDE RECORDS SUMMARY | 2025-02-28 18:25 | XMS_ITS | Encounter Summary ---
Author Organization [employer] Address [address] [place] [address] 7 [place] [address] Care Team Providers Care Head Of It Name Role Phone Name, Memo ARREDONDO Primary Care Provider [phone] Reason for Visit * Reason Onset Date Comments Nurse Triage 11/17/2024 Encounter Details Date Type Department Care Team ([facility] st Contact Info) Description 11/17/2024 Telephone [facility] [address] [place], [place] [phone] Name, MD Memo [address] [place] [address] Nurse Triage Social History Tobacco Use Types [...] Telephone Encounter - Lindsey Burns RN - 11/17/2024 3:54 PM EDT Triage call Pt reports left sided headache which Pt suspects is from possible left ear infection. Neg for ear drainage, fever. Pain is very sharp radiating to left side of head. Pt is advised to [facility], Pt reports is at work till 630pm and will go to [facility] as soon as Pt leaves work. Pt is advised to use tylenol/motrin which ever one available at home. Ice to the outer ear for some pain relief as well. Pt agrees with disposition and insurance is verified as active . Protocol Used: Headache (Adult) Protocol-Based Disposition: See in Office or Video Visit Today or Tomorrow Video visit not offered Positive Triage Question: * Moderate headache (e.g., interferes with normal activities) present > 24 hours and unexplained * All higher-acuity triage questions were negative Care Advice Discussed: * Reassurance and Education - Headache * General Care Advice for Fever * Pain and Fever Medicines * Rest for Headache * Cold Pack for Headache * Reasons To Call Back - Severe headache lasts over 2 hours after pain medicine - Headache lasts over 72 hours - Stiff neck occurs (can't touch chin to chest) - You become worse * Telephone Encounter - Lisa Realgo - 11/17/2024 3:30 PM EDT Symptom: Headache Outcome: Transfer to a nurse or provider NOW! Reason: Sudden worst headache of life now The caller accepted this outcome. [phone] documented in this encounter Plan of Treatment Upcoming Encounters Date Type Department Care Team (Late st Contact Info) Description 04/05/2025 10:00 AM EDT Office Visit [facility] [address] [place] [address] NameMemo MD [address] [place] [address] 04/08/2025 9:00 AM EDT Telemedicine [address] [address] 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, VON documented as of this encounter Visit Diagnoses Not on filedocumented in this encounter Additional Health Concerns Assessment Noted Time PHQ-9 Depression Total Score: 0 07/17/19 24 10:49 AM EST documented as of this encounter Care Teams Head Of It Relationship Specialty Start Date End Date NameMemo MD [address] [place] [address] PCP - General Family Medicine 08/30/15 documented as of this encounter
--- OUTSIDE RECORDS SUMMARY | 2025-02-28 18:25 | XMS_ITS | Patient Health Record ---
Author Organization [facility] Address [address] [place] [address] Care Team Providers Care Manager Stars Name Role Phone Name Memo ARREDONDO Primary Care Provider Rolly Manzanares Unavailable [phone] Allergies Allergen (clinical drug ingredient) Drug/Non Drug [...] atherosclerosis of arteries of lower limbs (disorder) ([id number] ) Atherosclerosis of [place] artery of both lower extremities, with unspecified presence of clinical manifestation (I70.203) Active confirmed Vital Signs Blood pressure diastolic 70 mm Hg 09/07/2024 Height 5 ft 11 in in 09/07/2024 Blood pressure systolic 120 mm Hg 09/07/2024 Weight 210 lbs 09/07/2024 BMI 29.29 kg/m2 09/07/2024 Procedures Procedure Date Ordered Date Performed Result Body Sit e 08758-Vvpfyhrx Plate 09/07/2024 N/A Encounters Encounter Location Date Provider Diagnosis [facility] [place] [address] [place] [address] 09/07/2024 Rollybreanna HillVirgil Ingrown nail L60.0 ; Cellulitis of toe of left foot L03.032 and Atherosclerosis of [place] artery of both lower extremities, with unspecified presence of clinical manifestation I70.203 Assessments Encounter Date Diagnosis (ICD Code) Assessment Notes Treatment Notes Treatment Clinical Notes Section Notes 09/07/2024 Ingrown nail (ICD-10 - L60.0) 09/07/2024 Cellulitis of toe of left foot (ICD-10 - L03.032) 09/07/2024 Atherosclerosis of [place] artery of both lower extremities, with unspecified presence of clinical manifestation (ICD-10 - I70.203) Plan Of Treatment Pending Test Test Name Order Date X ray : Foot, left 3V 01/23/2022 X ray : Foot, left 3V 11/29/2022 13991-KWZSEHL NAIL, 6 OR MORE 02/25/2023 59613-JGUFMSU NAIL, 6 OR MORE 11/29/2022 50048-MPGLYHU NAIL, 6 OR MORE 07/22/2023 11146-NUEAWIF NAIL, 6 OR MORE 03/05/2022 75165-OZZTHEC NAIL, 6 OR MORE 05/28/2022 46779-ORTESDA NAIL, 6 OR MORE 08/27/2022 31302-Dziqrfwv Plate 05/28/2022 45931-Hilbuccr Plate 09/07/2024 40308- Debride <25 sq cm 01/23/2022 17380 I&D ABSCESS- SIMPLE,SINGLE 022 24676-HYBC SKIN LESIONS, 2 TO 4 08/28/19 23 87828-SISG SKIN LESIONS, 2 TO 4 05/28/20 22 61042-NXVL SKIN LESIONS, 2 TO 4 07/22/19 24 06003-GGOT SKIN LESIONS, 2 TO 4 11/30/19 23 20990-MYHT SKIN LESIONS, 2 TO 4 02/26/20 23 Next Appt Details Provider Name:Rolly Schmidt Virgil , 03/11/2025 01:30:00 PM, [address] [place], [address], Insurance Providers Payer Name Payer Address Payer Phone Subscriber Number Group Number Insured Name Patient Relationship to Insured Coverage Start Date Coverage End Date Medicare National [employer] [address] [place] [address] [id number] Myles Tipton Self - patient is the [...] Hospitalization History Reason Date(Month/Year) [facility]- Pacemaker 08/2024 [facility] - AFib and choke at sametime- coded 2x CPR done 2 days 06/13/2022 [facility] left knee 3 x between 5 weeks 2021 [facility] -Ugent Care painful L migel Ingrown? g ivedy antiboitics 01/08/22 Cardiac Cath and Stent Coronary artery disease invo lving [place] coronary artery of [place] heart with unstable angina pectoris
--- OUTSIDE RECORDS SUMMARY | 2025-02-28 18:25 | XMS_ITS | Clinical Summary ---
Author Organization [facility] Address [address] [place] [address] Phone Care Team Providers Care Asphalt Layer Name Role Phone Name, Memo ARREDONDO Primary Care Provider [phone] Allergies Active Allergy Reactions Criticality Noted Date Comments Bee Venom Protein (Honey Bee) Anaphylaxis High 01/25/2011 Enoxaparin Sodium Rash Low 05/16/2014 Indomethacin Other (See Comments),Anaphylaxis High 01/25/2011 BREATHING DIFFICULTY Methadone Mental Status Change 05/09/2000 Tramadol Anaphylaxis High 07/27/2015 Tramadol Hcl Other (See Comments) High 05/09/2000 THROAT TIGHTNESS Medications ticagrelor (BRILINTA) 90 mg Tab Take 90 mg by mouth 2 (two) times a day. Active aspirin 81 mg chewable tablet Take 81 mg by mouth daily. Active ezetimibe (ZETIA) 10 mg tablet Take 10 mg by mouth daily. Active metoprolol tartrate (LOPRESSOR) 100 MG tablet Take 50 mg by mouth 2 (two) times a day. Active amLODIPine (NORVASC) 10 MG tablet Take 10 mg by mouth daily. Active rosuvastatin (CRESTOR) 40 MG tablet Take 40 mg by mouth daily. Active omeprazole (PRILOSEC) 20 mg TbEC Take 40 mg by mouth 2 (two) times a day. Active lisinopril (PRINIVIL,ZESTRIL ) 10 MG tablet Take 10 mg by mouth 2 (two) times a day. Active ranolazine (RANEXA) 1,000 mg SR tablet Take 1,000 mg by mouth 2 (two) times a day. Active nitroglycerin (NITROSTAT) 0.[address] 0.4 mg under the tongue every 5 (five) minutes as needed for chest pain. Active senna (SENOKOT) 8.6 mg tablet Take 17.2 mg by mouth. 6 Active oxyCODONE 5 MG immediate release tablet Take 5 mg by mouth every 4 (four) hours as needed. 6 Active nicotine (NICODERM CQ) 14 mg/[address] 1 patch onto the skin daily. Active clopidogrel bisulfate (PLAVIX ORAL) Take by mouth. Activ e divalproex (DEPAKOTE) [address] tablet Take 250 mg by mouth 3 (three) times a day. Active therapeutic multivitamin tablet Take 1 tablet by mouth daily. Active buPROPion (WELLBUTRIN XL) 150 MG ER 24 hr tablet Take 150 mg by mouth 2 (two) times a day. Active pantoprazole (PROTONIX) 40 MG tablet Take 40 mg by mouth daily. Active levETIRAcetam (KEPPRA) 750 MG tablet Take 1 tablet (750 mg total) by mouth 2 (two) times a day. Dosage adjustment 60 tablet 11 1 Active ELIQUIS 5 mg tablet Take 5 mg by mouth 2 (two) times a day. 1 Active multivitamin per tablet Take 1 tablet by mouth every morning. 1 Active Active Problems Problem Noted Date Diagnosed Date Angina pectoris 02/24/2018 Assessment & Plan (11/12/2019 1:17 PM EDT): He is feeling better since his stent. [...] follow him up in a few months Atherosclerosis of [place] ronary artery of [place] heart with stable angina pectoris 02/24/2018 Assessment & Plan (2020 9:01 AM EST): His angina is well controlled currently we reviewed his previous nuclear stress testing from January he also had a CTA done in November continue medical therapy Assessment & Plan (01/13/2020 9:02 PM EDT): History of CAD dating back to 2012 with NV, stents and stable and unstable angina. He is on optimal antianginal therapy which includes Ranexa,, amlodipine metoprolol and as needed nitroglycerin. He reports that over the past few months he has actually been feeling well and has not had any episodes of unstable angina. He does get occasional angina with exertion which is very easily relieved with sublingual nitro. Unfortunately he still continues to smoke in addition to using nicotine patch. I reiterated to him that he should not use them concomitantly. He is requesting to return to work. Return to work note provided. Status post coronary angioplasty 02/24/2018 ST-segment elevation myocard ial infarction (STEMI) of inferior wall 02/24/2018 Benign essential hypertension 02/24/2018 Assessment & Plan (01/13/2020 9:03 PM EDT): Blood pressure goal less than 130/90. He is currently at goal. Hyperlipidemia 02/24/2018 Assessment & Plan (01/13/2020 9:02 PM EDT): LDL goal less than 70. Profile followed by his PCP. Smoker 02/24/2018 Assessment & Plan (2020 9:01 AM EST): Still at 2 cigarettes a day we talked about this and he is going to continue to work on it Chantix was an option at one time but he will try to readdress Assessment & Plan (01/13/2020 9:04 PM EDT): Reports current 5 cigarettes/day smoking. He also uses nicotine patch during the day and reports smoking when he does not have the patch on. I provided extended amount of education to patient about dangers of smoking while wearing nicotine patch. He states that he understands. I also urged him to consider complete smoking cessation. Pacemaker 02/24/2018 Hip pain 07/08/2011 Overview (07/30/2014): Hip pain Social History Tobacco Use Types Packs/Day Years Used Date Smoking Tobacco: Light Smoker Cigarettes Smokeless Tobacco: Never Alcohol Use Standard Drinks/Week Comments No 0 (1 standard drink = 0.6 oz pur e alcohol) Education Answer Date Recorded Are you interested in more education? Not on gogo e 10/03/2022 Are you concerned about learning? Not on file 10/03/2022 No 10/03/2022 No 10/03/2022 Digital Access Answer Date Recorded No 11/02/2022 No 11/02/2022 No 11/02/2022 Reliable internet access at home? Not on file 11/02/2022 Device with a working camera? Not on file Sex and Gender Information Value Date Recorded Sex Assigned at Not on file Legal Sex Male 5:00 PM EST Gender Identity Not on file Sexual Orientation Not on file Last Filed Vital Signs Vital Sign Reading Time Taken Comments Blood Pressure 122/79 02/02/2021 10:03 AM EDT Pulse 60 02/02/2021 10:03 AM EDT Temperature 36.1 C (97 F) 02/02/2021 10:03 AM EDT Respiratory Rate 16 11/24/2018 6:01 PM EDT Oxygen Saturation 97% 02/02/2021 10:03 AM EDT Inhaled Oxygen Concentration - - Weight 95.3 kg (210 lb) 02/02/2021 10:03 AM EDT Pt reported Height 180.3 cm (5' 11 ) 02/02/2021 10:03 AM EDT Pt reported Body Mass Index 29.29 02/02/2021 10:03 AM EDT Plan of Treatment Health Maintenance Due Date Last Done Comments BLOOD PRESSURE 1953 VALPROIC ACID (DEPAKENE) LEVEL 1953 SMOKING Hx and SMOKELESS TOBACCO SCREENING 1966 HEPATITIS C SCREENING 1971 COLOGUARD 1998 COLONOSCOPY 1998 COLORECTAL CANCER SCREENING 1998 FIT TEST 1998 FOBT 1998 SIGMOIDOSCOPY 1998 VIRTUAL COLONOSCOPY 1998 ZOSTER VACCINES (1 of 2) 2003 RSV VACCINE (1 - Risk 60-74 years 1-dose series) 2013 ABDOMINAL AORTIC ANEURYSM (AAA) SCREENING 2018 CREATININE LEVEL 11/25/2019 11/24/2018, 06/04/2018 POTASSIUM LEVEL 11/25/2019 11/24/2018, 06/04/2018 PNEUMOCOCCAL VACCINES (50+ years) (3 of 3 - PCV20 or PCV21) 06/15/2023 06/15/2018, 07/24/2013, 06/09/2007 INFLUENZA VACCINE (#1) 2025 0, 03/25/2017, 03/06/2016, Additional history exists COVID-19 VACCINE (3 - 2024- season) 2025 09/01/2020, 08/04/2020 DEPRESSION SCREENING 02/23/2026 02/23/2025 Adult Td,Tdap Booster 01/18/2030 01/19/2020 , 02/02/2018, 06/09/2007 HEPATITIS A VACCINES Aged Out No long er eligible based on patient's age to complete this topic HIB VACCINES Aged Out No longer eligi ble based on patient's age to complete this topic MENINGOCOCCAL VACCINES (ACWY) Aged Out No longer eligible based on patient's age to complete this topic MENINGOCOCCAL VACCINES (B) Aged Out N o longer eligible based on patient's age to complete this topic Medical Devices Not on file Procedures Procedure Name Priority Date/Time Associated Diagnosis Comments BASIC METABOLIC PANEL STAT 11/24/2018 11:26 AM EDT from Last 3 Months or Most Recently Relevant to Health Maintenance Results * (ABNORMAL) Basic metabolic panel (11/24/2018 11:26 AM EDT) SODIUM 140 135 - 145 mmol/L [facility] POTASSIUM 4.8 3.4 - 5.0 mmol/L [facility] Comment:Hemolysis present, r esult falsely increased. CHLORIDE 101 98 - 108 mmol/L [facility] CO2 25 23 - 32 mmol/L [facility] BUN 24 8 - 25 mg/dL [facility] CREATININE 0.84 0.60 - 1.50 mg/dL [facility] GLUCOSE 128(H) 70 - 110 mg/dL [facility] CALCIUM 9.2 8.5 - 10.5 mg/dL [facility] EGFR 92 >59 mL/min/1. 73m2 [facility] Comment:If patient is black, multiply result by 1.159. Estimated glomerular filtration rate calculated using the CKD-EPI equation. ANION GAP 14 3 - 17 mmol/L [facility] Blood 11/24/2018 11:2 6 AM EDT 11/24/2018 11:33 AM EDT us Aden Herndon PA-C LAB BLOOD ORDERABLES Fin al Result [facility] [address] [place] [address] from Last 3 Months or Most Recently Relevant to Health Maintenance Insurance MEDICARE PART A & B [employer] MEDICARE PART A & B [employer] MEDIC[facility] PART A & [facility] & B [employer] MEDICARE PART A & B [id number] [place] [id number] MEDICARE PART A & [facility] A & B MEDICARE PART A & B [employer] Care Teams Asphalt Layer Relationship Specialty Start Date End Date Name, MD Memo [address] [place] [address] PCP - General Geriatric Psychiatry 12/29/17 Additional Source Comments The information contained in this document represents components of the legal health record. It is not the complete legal health record.[facility]
--- OUTSIDE RECORDS SUMMARY | 2025-02-28 18:25 | XMS_ITS | Encounter Summary ---
Author Organization [facility] Address [address] [place] [address] Phone Care Team Providers Care Well Logging Captain Name Role Phone Memo Alex MD Primary Care Provider [phone] Reason for Referral * Consultation (Within 1 month) - Closed Specialty Diagnoses / Procedures Referred By Contac t Referred To Contact Memo Alex MD Phone: tel: fax: [facility] [id number] Referral ID Status Reason Start Date Expiration Date Visits Re quested Visits Authorized [id number] Closed 12/30/2017 12/30/2018 1 1 Encounter Details Date Type Department Care Team ([facility] st Contact Info) Description 12/30/2017 Transcribe Orders [facility] [address] [place] [address] Unknown, Unknown, Social History Tobacco Use Types Packs/Day Years Used Date Smoking Tobacco: Every Day Sex and Gender Information Value Date Recorded Sex Assigned at Not on file Legal Sex Male 5:00 PM EST Gender Identity Not on file Sexual Orientation Not on file documented as of this encounter Plan of Treatment Scheduled Referrals Name Type Priority Associated Diagnoses Order Schedule Ambulatory referral to [facility] Outpatient Referral Routine Ordered: 12/30/2017 documented as of this encounter Visit Diagnoses Not on filedocumented in this encounter Care Teams Well Logging Captain Relationship Specialty Start Date End Date Memo Alex MD [address] [place] [phone] PCP - General Geriatric Psychiatry 12/29/17 documented as of this encounter Additional Source Comments The information contained in this document represents components of the legal health record. It is not the complete legal health record.[facility]
--- OUTSIDE RECORDS SUMMARY | 2025-02-28 18:25 | XMS_ITS | Encounter Summary ---
Author Organization [employer] Address [address] [facility] [address] [place] [address] Care Team Providers Care Credit Resolution Representative Name Role Phone Name, Memo ARREDONDO Primary Care Provider [phone] Encounter Details Date Type Department Care Team ([facility] st Contact Info) Description 10/24/2024 Orders Only [facility] [address] [place], [place] [phone] ProviderFerdinand MD Social History Tobacco Use Types Packs/Day Years [...] Description 04/05/2025 10:00 AM EDT Office Visit [facility] [address] [place] [address] Name, MD Memo [address] [place] [address] 04/08/2025 9:00 AM EDT Telemedicine [address] [id number] 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, VON documented as of this encounter Procedures Procedure Name Priority Date/Time Associated Diagnosis Comments COLONOSCOPY Routine 09/02/2024 6:46 PM EDT documented in this encounter Results * Colonoscopy (09/02/2024 6:46 PM EDT) Colonoscopy Normal Normal Narrative Aleta Wang - 09/02/2024 6:46 PM EDT Recommended repeat colonoscopy in 3 years see external hospital admission note on 09/02/2024 us Historical Provider HEALTH MAINTENANCE Edited Result - Final documented in this encounter Visit Diagnoses Not on filedocumented in this encounter Additional Health Concerns Assessment Noted Time PHQ-9 Depression Total Score: 0 07/17/19 24 10:49 AM EST documented as of this encounter Care Teams Credit Resolution Representative Relationship Specialty Start Date End Date Name, MD Memo [address] [place] [id number] PCP - General Family Medicine 08/30/15 documented as of this encounter
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
--- NOTE | 2025-02-28 18:27 | PC.NURSE ---
Addendum entered by Mamie Rodriguez RN 02/28/25 18:28: Patient is 69-year-old male with past medical history significant for atrial fibrillation on Eliquis, coronary artery disease, pacemaker implantation due to sick sinus syndrome, GERD presents for evaluation of left-sided abdominal pain radiating to his groin and back for the past 2 weeks with assoc nausea and vomiting bilious emesis. He was status post appendectomy and cholecystectomy. Patient alert and oriented. Lungs essentially clear bilat. Respirations even and non-labored. Abdomen soft with positive bowel sounds. c/o LLQ abdominal pain radiating to his groin. No LE edema noted. Original Note: Medical History Nicotine dependence, cigarettes, uncomplicated Elevated cholesterol History of chemotherapy Obstructive sleep apnea (~2018) On anticoagulant therapy DVT (deep venous thrombosis) Essential hypertension Tubular adenoma of colon COVID-19 vaccine administered Seizures (~04/2020) GERD (gastroesophageal reflux disease) Esophagitis Atherosclerotic cardiovascular disease Psychotic disorder Syncope Headache Myocardial infarction Pacemaker (~05/2013) Tremor Brain bleed CAD (coronary artery disease)
[2025-02-28] MEDS: iohexoL 350 MG/ML 100 ML INFUS..BTL 85 ML IV (18:29)
[2025-02-28 19:32] VITALS: BP 178/84; PULSE 61; RESP 18; TEMP 36.7; O2SAT 93
[2025-02-28 19:45] LABS: Appearance Urine Clear; Glucose Urine UA Negative (Negative); PH 7.0 (5.0-9.0); Specific Gravity - Urine >= 1.030 (1.005-1.025)
[2025-02-28 22:00] VITALS: BP 178/84; PULSE 62; RESP 16; TEMP 36.9; O2SAT 96
[2025-02-28 22:08] VITALS: BP 178/84; PULSE 62; RESP 16; TEMP 36.9; O2SAT 96
== END 2025-02-28 22:09 | disposition home or self-care (01) ==
PROVIDERS: Physician Assistant Medical; Emergency Provider Emergency Medicine; PCP Internal Medicine Geriatric Medicine
DX: K59.00 Constipation, unspecified (principal); R10.32 Left lower quadrant pain; I10 Essential (primary) hypertension; I25.2 Old myocardial infarction; I48.91 Unspecified atrial fibrillation; Z95.0 Presence of cardiac pacemaker; Z86.718 Personal history of other venous thrombosis and embolism; Z79.01 Long term (current) use of anticoagulants; Z79.899 Other long term (current) drug therapy; Z72.0 Tobacco use; Z87.19 Personal history of other diseases of the digestive system
CPT/HCPCS: 36415; 74177; 80048; 80076; 81003; 83690; 83735; 85025; 96361; 96374; 96375; 99285; J2270; J2405; J7120; Q9967

== ENCOUNTER → 2025-02-28 17:33 | Outpatient (BNV) | payer MEDICARE, MEDICAID, SELFPAY | PROVIDERS: Emergency Provider Emergency Medicine; PCP Internal Medicine Geriatric Medicine; Visit Provider Student in an Organized Health Care Education/Training Program | DX: K57.30 Diverticulosis of large intestine without perforation or abscess without bleeding (principal); Z90.5 Acquired absence of kidney | CPT/HCPCS: 74177 ==

== ENCOUNTER 2025-03-03 14:35 | Outpatient (AMB) | payer MEDICARE, MEDICAID, SELFPAY ==
--- OUTSIDE RECORDS SUMMARY | 2023-09-30 06:00 | XMS_ITS ---
Author Organization [facility] Address [address] [place] [address] Care Team Providers Care Robotic Machine Operator Name Role Phone Name Memo ARREDONDO Primary Care Provider Unavailabl Rolly Barrera Unavailable [phone] Encounters Encounter Location Date Provider Diagnosis [address] [address] 09/30/2023 Rolly Herman Plan Of Treatment Next Appt Details Provider Name:Rolly Herman , 03/11/2025 01:30:00 PM, [address] [place], [address], Progress Notes * YOLETTEMyles SILVADOB:1955 (69 yo M)Acc No.[id number]:09/30/2023 Progress Note Patient: Myles ALMONTE Provider: Pablo Herman DPM :1955 A ge:68 Y S ex:Male Date:09/30/2023 Address:[address] [place] [address] [place] Pcp:Memo Alex MD Subjective: * Chief Complaints: * * Medical History: Objective: * Vitals: Assessment: Plan: * Treatment: * Images: * The named appointment provid er may or may not be the originator of this progress note, and it is not deemed complete until electronically signed by the appointment provider. Sign off status: Pending * Provider: Pablo Herman DPM Date: 0 09/30/2023 Generated for James hatfield/Jorge Alberto/Robbin on: 0 03/03/2025 06:58 PM EDT
--- NOTE | 2025-03-03 14:42 | A.OFFVIS_ITS ---
Vital Signs 03/03/25 14:43 Height 5 ft 11 in Weight 198 lb 6.656 oz BMI 27.7 BP 122/68 Blood Pressure Location Lt brachial Position Sitting Pulse 60 Pulse Source Pulse Oximeter Intake Visit Reasons: 2+ mth f/u Allergies bee pollen (BEE STINGS) Allergy (Severe, Verified 02/28/25 14:12) ANAPHYLAXIS indomethacin (Indocin) Allergy (Severe, Verified 02/28/25 14:12) anaphylaxis tramadol (Ultram) Allergy (Severe, Verified 02/28/25 14:12) anaphylaxis fentanyl Adverse Reaction (Intermediate, Verified 02/28/25 14:12) Anxiety Medication List - Last Reconciled 03/03/25 by Oren Mueller MD amlodipine 5 mg PO DAILY apixaban (Eliquis) 5 mg PO BID aspirin 81 mg PO QAM divalproex ER (Depakote ER) 250 mg PO BEDTIME esomeprazole magnesium 40 mg PO QAM ezetimibe (Zetia) 10 mg PO DAILY hyoscyamine sulfate 0.125 mg PO BID-QID PRN isosorbide mononitrate ER 60 mg PO DAILY lisinopril 5 mg PO DAILY magnesium citrate 148 mL PO BID PRN mesalamine ER (Apriso) 1.5 grams (4 x 0.375 gram) PO QAM metoprolol tartrate 100 mg PO BID multivitamin (Daily Vitamin Formula tablet) 1 tab PO DAILY nitroglycerin (Nitrostat) 0.4 mg sublingual Q5M PRN ondansetron 4 mg PO Q8H PRN oxycodone 10 mg PO Q5H PRN pantoprazole 40 mg PO DAILY polyethylene glycol 3350 (Miralax) 17 grams PO DAILY 2 weeks ranolazine ER 1,000 mg PO BID rosuvastatin (Crestor) 40 mg PO BEDTIME HPI Comments Details: Myles returns for follow-up regarding various cardiac issues including coronary disease, pacemaker among others. He has longstanding chest pains and has undergone several cardiac catheterization in the past. In 2015, he underwent balloon angioplasty of the distal LAD. In 2016, inferior STEMI, treated by drug-eluting stent to proximal RPL. Then another catheterization which led to stenting of the distal RCA. Most recently, had another catheterization 2023 but no new interventions. He also has permanent pacemaker in place. From the cardiac standpoint, he states he is doing quite well. No clear-cut symptoms like angina or shortness of breath or in fact anything cardiac related. He is getting along fine. REPLACED BY [facility] Medical History Nicotine dependence, cigarettes, uncomplicated Elevated cholesterol History of chemotherapy Obstructive sleep apnea (~2018) On anticoagulant therapy DVT (deep venous thrombosis) Essential hypertension Tubular adenoma of colon COVID-19 vaccine administered Seizures (~04/2020) GERD (gastroesophageal reflux disease) Esophagitis Atherosclerotic cardiovascular disease Psychotic disorder Syncope Headache Myocardial infarction Pacemaker (~05/2013) Tremor Brain bleed CAD (coronary artery disease) Surgical History Hx of shoulder surgery History of total left knee replacement History of ERCP History of spinal surgery History of colonoscopy (~09/2020) History of right knee surgery (~12/2013) History of total right hip replacement (~06/2012) History of cholecystectomy History of cardiac catheterization History of permanent cardiac pacemaker placement (~05/2013) History of esophagogastroduodenoscopy (EGD) (~09/2020) History of appendectomy Stented coronary artery Family History Father Heavy cigarette smoker Throat cancer Mother Heart disease Social History Household Members: None Household Members Other:: shares house with a friend Housing: House Are you a primary manager wound care to a significant other at home: No Do you presently have visiting nurse or other home services: No Alcohol intake: never Comment: resting eyes closed Patient Tobacco Use Status: Current someday Tobacco user Tobacco use type: Cigarette Years Smoked: 8 +/- e-Cigarette/Vaping Use: Never Used Second Hand Smoke Exposure: No Advance Directives Date on File: 12/16/20 service: No Current occupational status: employed and retired Review of Systems Const Denies weakness ENT Denies dizziness Card Denies chest pain, Denies chest pain with activity, Denies syncope, Denies rapid heart rate, Denies pedal edema, Denies edema, Denies leg edema, Denies lightheadedness, Denies palpitations, Denies dyspnea, Denies dyspnea on exertion and Denies orthopnea Resp Denies cough, Denies dyspnea and Denies dyspnea on exertion GI Denies hematochezia and Denies change in stool character Musc Denies abnormal gait, Denies muscle cramps, Denies muscle weakness, Denies numbness, Denies radiating pain into limb and Denies tingling Neuro Denies abnormal gait, Denies dizziness, Denies syncope, Denies numbness, Denies tingling and Denies weakness Endo Denies palpitations Physical Exam Vital Signs: Last Vital Signs Pulse 60 03/03/25 14:43 BP 122/68 03/03/25 14:43 BMI result Body Mass Index 27.7 Const General: comfortable and no acute distress Orientation/consciousness: patient oriented x3 HEENT Other: Unremarkable Head: Yes normal to inspection Neck Neck: Yes normal visual inspection Chest Chest palpation & inspection: normal inspection of the chest Resp Auscultation: clear to auscultation bilaterally Cardio Palpation: normal PMI Heart sounds: S1 normal heart sound present, S2 normal heart sound present, no gallops, no murmurs and no rubs GI Palpation (GI): Soft to palpation Back/Spine/Pelvis Other: unremarkable Skin General skin exam: no rashes or lesions noted Neuro General: patient oriented x3 Extrem General: Yes normal to inspection Psych Mental Status: mental status grossly normal Assessment & Plan Assessment & Plan (1) Atherosclerotic cardiovascular disease: Code(s): I25.10 - Atherosclerotic heart disease of [place] coronary artery without angina pectoris Category: Medical Plan: Cardiac catheterization -12/2023-moderate diffuse disease in the LAD with apical LAD stenosis. Apical segment is small in size/small territory. Circumflex 60% proximal to mid stenosis but IFR negative. Patent stents in PDA and RPL. Overall, continue current regimen including beta-blockers, long-acting nitrates, ranolazine. Continue statins. He has not had any recent chest pains. (2) Essential hypertension: Code(s): I10 - Essential (primary) hypertension Category: Medical Plan: Stable. Continue amlodipine, lisinopril. It seems that in a prior visit amlodipine dose has been cut back because of question of presyncope. No further changes today. (3) Sick sinus syndrome: Code(s): I49.5 - Sick sinus syndrome Category: Medical Plan: Status post pacemaker placement. Being followed remotely. (4) Pacemaker lead malfunction: Code(s): T82.110A - Breakdown (mechanical) of cardiac electrode, initial encounter Category: Medical Plan: He does have ventricular lead noise on device interrogation but minimal ventricular pacing. EP procedure note during generator change mentions that there is no need for lead revision (5) Atrial flutter: Code(s): I48.92 - Unspecified atrial flutter Category: Medical Plan: Remote monitoring in the past had suggested brief episodes of atrial fibrillation/flutter. Continue beta-blockers and anticoagulation. As there was some concern for hematuria, he can stop the aspirin. However, it seems it was brief and hematuria has resolved now. Coding Level of Care Code Est Pt Level 4 (33653) Complex EM visit Add On G2211 Diagnoses Atherosclerotic cardiovascular disease I25.10 Essential hypertension I10 Sick sinus syndrome I49.5 Pacemaker lead malfunction T82.110A Atrial flutter I48.92
[2025-03-03 14:43] VITALS: BP 122/68; PULSE 60; BMI 27.7
--- OUTSIDE RECORDS SUMMARY | 2025-03-03 18:57 | XMS_ITS | Encounter Summary ---
Author Organization [employer] Address [address] [place] [address] 7t [place] [address] Care Team Providers Care Appraiser Boats And Marine Name Role Phone Name, Memo ARREDONDO Primary Care Provider Encounter Details Date Type Department Care Team ([facility] Contact Info) Description 06/06/2022 Telephone [facility] MEDICINE [address] [place] [address] [phone] NameMemo MD [address] [place] [address] Social History Tobacco Use Types Packs/Day Years [...] Description 04/05/2025 10:00 AM EDT Office Visit [facility] MEDICINE [address] [place] [address] [phone] Memo Alex MD [address] [place] [address] [phone] 04/08/2025 9:00 AM EDT Telemedicine [facility] MEDICINE [address] [place] [address] 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, RN documented as of this encounter Visit Diagnoses Not on filedocumented in this encounter Care Teams Appraiser Boats And Marine Relationship Specialty Start Date End Date Name, MD Memo [address] [place] [address] PCP - General Family Medicine 08/30/15 documented as of this encounter
--- OUTSIDE RECORDS SUMMARY | 2025-03-03 18:57 | XMS_ITS | Encounter Summary ---
Author Organization [employer] Address [address] [facility] 7t [place] [address] Care Team Providers Care Marketing Development Representative Name Role Phone Name, Memo ARREDONDO Primary Care Provider [phone] Reason for Visit * Reason Onset Date Comments triage 06/05/2022 Encounter Details Date Type Department Care Team ([facility] st Contact Info) Description 06/05/2022 Telephone [facility] MEDICINE [address] [place] [address] Name, MD Memo 230 [place] [address] triage Social History Tobacco Use Types Packs/Day [...] Description 04/05/2025 10:00 AM EDT Office Visit [address] [address] Name, MD Memo [address] [place] [address] 04/08/2025 9:00 AM EDT Telemedicine [address] [address] 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 RN documented as of this encounter Visit Diagnoses Not on filedocumented in this encounter Care Teams Marketing Development Representative Relationship Specialty Start Date End Date Name, MD Memo [address] [place] [address] PCP - General Family Medicine 08/30/15 documented as of this encounter
--- OUTSIDE RECORDS SUMMARY | 2025-03-03 18:57 | XMS_ITS | Encounter Summary ---
Author Organization [employer] Address [address] [place] [address] 7 [place] [address] Care Team Providers Care Protective Services Officer Name Role Phone Name, Memo ARREDONDO Primary Care Provider [phone] Reason for Visit * Reason Onset Date Comments ER Follow-up 09/16/2024 Encounter Details Date Type Department Care Team ([facility] st Contact Info) Description 09/16/2024 Telephone [facility] MEDICINE 230 [place], [place] [phone] Name, MD Memo [address] [place] [address] ER Follow-up Social History Tobacco Use Types [...] 09/16/2024 10:30 AM EDT Pt evaluated in [facility] ED 09/15/24 Dx: Syncope, concussion. Pt left [...] ED visit on : Date: 09/15/24 Hospital: [facility] Seen for: Concussion Symptomatic No *if yes message should go to Triage Patient advised will forward to team nurse for follow up Contact pt at [phone] documented in this encounter Plan of Treatment Upcoming Encounters Date Type Department Care Team (Late st Contact Info) Description 04/05/2025 10:00 AM EDT Office Visit [address] [address] Name, MD Memo [address] [place] [address] 04/08/2025 9:00 AM EDT Telemedicine [address] [address] 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, VON documented as of this encounter Visit Diagnoses Not on filedocumented in this encounter Additional Health Concerns Assessment Noted Time PHQ-9 Depression Total Score: 0 07/17/19 24 10:49 AM EST documented as of this encounter Care Teams Protective Services Officer Relationship Specialty Start Date End Date Name, MD Memo [address] [place] [address] PCP - General Family Medicine 08/30/15 documented as of this encounter
--- OUTSIDE RECORDS SUMMARY | 2025-03-03 18:57 | XMS_ITS | Encounter Summary ---
Author Organization [employer] Address [address] [facility] 7t [place] [address] Care Team Providers Care Clinical Athletic Instructor Name Role Phone Name, Memo ARREDONDO Primary Care Provider [phone] Reason for Visit * Reason Onset Date Comments triage 06/06/2022 Encounter Details Date Type Department Care Team ([facility] st Contact Info) Description 06/06/2022 Telephone [facility] MEDICINE [address] [place] [address] Name, MD Memo 230 [place] [address] triage Social History Tobacco Use Types Packs/Day [...] visit with PRIYANKA Schwab at 1115am . [facility] unable to schedule a [...] Description 04/05/2025 10:00 AM EDT Office Visit [address] [address] Name, MD Memo [address] [place] [address] 04/08/2025 9:00 AM EDT Telemedicine [facility] MEDICINE [address] [place] [address] 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 RN documented as of this encounter Visit Diagnoses Not on filedocumented in this encounter Care Teams Clinical Athletic Instructor Relationship Specialty Start Date End Date Name, MD Memo [address] [place] [address] PCP - General Family Medicine 08/30/15 documented as of this encounter
--- OUTSIDE RECORDS SUMMARY | 2025-03-03 18:58 | XMS_ITS | Encounter Summary ---
Author Organization [employer] Address [address] [place] [address] 7 [place] [address] Care Team Providers Care City Detective Name Role Phone Name, Memo ARREDONDO Primary Care Provider [phone] Reason for Visit * Reason Comments Med Refill Encounter Details Date Type Department Care Team ([facility] st Contact Info) Description 02/03/2024 Refill [facility] MEDICINE 230 [place], [place] [phone] Name, MD Memo 230 [place] [address] Chronic pain syndrome Social History Tobacco Use [...] Description 04/05/2025 10:00 AM EDT Office Visit [facility] MEDICINE [address] [place] [address] NameMemo MD [address] [place] [address] 04/08/2025 9:00 AM EDT Telemedicine [facility] MEDICINE [address] [place] [address] 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, VON documented as of this encounter Visit Diagnoses Diagnosis Chronic pain syndrome documented in this encounter Additional Health Concerns Assessment Noted Time PHQ-9 Depression Total Score: 0 07/17/19 24 10:49 AM EST documented as of this encounter Care Teams City Detective Relationship Specialty Start Date End Date Memo Alex MD [address] [place] [address] PCP - General Family Medicine 08/30/15 documented as of this encounter
--- OUTSIDE RECORDS SUMMARY | 2025-03-03 18:58 | XMS_ITS | Encounter Summary ---
Author Organization [employer] Address [address] [place] [address] 7t [place] [address] Care Team Providers Care It Trainer Name Role Phone Name, Memo ARREDONDO Primary Care Provider [phone] Reason for Visit * Reason Onset Date Comments Med Refill 09/29/2024 Encounter Details Date Type Department Care Team ([facility] st Contact Info) Description 09/29/2024 Telephone [facility] & PEDS [address] [place], [place] [phone] Name, MD Memo [address] [place] [address] Med Refill Social History Tobacco Use Types [...] immediate release tablet To be sent to: [facility] - [place], [place] - [address] [place] [address] *pt wanting an early fill because will be leaving [facility] in the afternoon to [place] documented in this encounter Plan of Treatment Upcoming Encounters Date Type Department Care Team ([facility] st Contact Info) Description 04/05/2025 10:00 AM EDT Office Visit [facility] MEDICINE [address] [place] [address] Name, MD Memo [address] [place] [address] 04/08/2025 9:00 AM EDT Telemedicine [facility] MEDICINE [address] [place] [address] 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 RN documented as of this encounter Visit Diagnoses Not on filedocumented in this encounter Additional Health Concerns Assessment Noted Time PHQ-9 Depression Total Score: 0 07/17/19 24 10:49 AM EST documented as of this encounter Care Teams It Trainer Relationship Specialty Start Date End Date Name, MD Memo 230 [place] [address] PCP - General Family Medicine 08/30/15 documented as of this encounter
--- OUTSIDE RECORDS SUMMARY | 2025-03-03 18:58 | XMS_ITS | Encounter Summary ---
Author Organization [employer] Address [address] [place] [address] 7 [place] [address] Care Team Providers Care Stave Bolt Equalizer Name Role Phone Name, Memo ARREDONDO Primary Care Provider [phone] Reason for Visit * Reason Onset Date Comments returning call back 05/14/2022 Encounter Details Date Type Department Care Team ([facility] st Contact Info) Description 05/14/2022 Telephone [facility] MEDICINE [address] [place] [address] Name, MD Memo 230 [place] [address] returning call back Social History Tobacco Use [...] be called back. Please contact pt at [phone] documented in this encounter Plan of Treatment Upcoming Encounters Date Type Department Care Team (Late st Contact Info) Description 04/05/2025 10:00 AM EDT Office Visit [facility] MEDICINE [address] [place] [address] Name, MD Memo [address] [place] [address] 04/08/2025 9:00 AM EDT Telemedicine [address] [address] 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, VON documented as of this encounter Visit Diagnoses Not on filedocumented in this encounter Care Teams Stave Bolt Equalizer Relationship Specialty Start Date End Date Name, MD Memo [address] [place] [address] PCP - General Family Medicine 08/30/15 documented as of this encounter
--- OUTSIDE RECORDS SUMMARY | 2025-03-03 18:58 | XMS_ITS | Encounter Summary ---
Author Organization [facility] Address [address] [place] [address] [place] [address] Phone Care Team Providers Care Linoleum Layer Helper Name Role Phone Name, Memo ARREDONDO Primary Care Provider [phone] Encounter Details Date Type Department Care Team (Late st Contact Info) Description 01/19/2018 Procedure Pass [facility] [address] [place] [address] Social History Tobacco Use Types Packs/Day Years [...] on filedocumented in this encounter Care Teams Linoleum Layer Helper Relationship Specialty Start Date End Date Name, MD Memo 230 [place] [address] PCP - General Geriatric Psychiatry 12/29/17 documented as of this encounter Additional Source Comments The information contained in this document represents components of the legal health record. It is not the complete legal health record.[facility]
--- OUTSIDE RECORDS SUMMARY | 2025-03-03 18:58 | XMS_ITS | Encounter Summary ---
Author Organization [employer] Address [address] [place] [address] 7 [place] [address] Care Team Providers Care Recovery Room Rn Name Role Phone Name, Memo ARREDONDO Primary Care Provider [phone] Reason for Visit * Reason Comments Med Refill Encounter Details Date Type Department Care Team ([facility] st Contact Info) Description 02/09/[address] [facility] MEDICINE [address] [place], [place] [phone] Name, MD Memo [address] [place] [address] Chronic pain syndrome Social History Tobacco Use [...] 04/05/2025 10:00 AM EDT Office Visit [facility] MEDICINE [address] [place] [address] Name, MD Memo [address] [place] [address] 04/08/2025 9:00 AM EDT Telemedicine [address] [address] 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, VON documented as of this encounter Visit Diagnoses Diagnosis Chronic pain syndrome documented in this encounter Additional Health Concerns Assessment Noted Time PHQ-9 Depression Total Score: 0 07/17/19 24 10:49 AM EST documented as of this encounter Care Teams Recovery Room Rn Relationship Specialty Start Date End Date Name, MD Memo [address] [place] [address] PCP - General Family Medicine 08/30/15 documented as of this encounter
--- OUTSIDE RECORDS SUMMARY | 2025-03-03 18:58 | XMS_ITS | Clinical Summary ---
Author Organization [facility] Address [address] [place] [address] Phone Care Team Providers Care Engineering Professor Name Role Phone Name, Memo ARREDONDO Primary Care Provider [phone] Allergies Active Allergy Reactions Criticality Noted Date [...] up in a few months Atherosclerosis of [place] co ronary artery of [place] heart with stable angina pectoris 02/24/2018 Assessment & Plan (2020 9:01 AM EST): His angina is well controlled currently we reviewed his previous nuclear stress testing from January he also had a CTA done in November continue medical therapy Assessment & Plan (01/13/2020 9:02 PM EDT): History of CAD dating back to 2012 with NM, stents and stable and unstable angina. He [...] EDT) SODIUM 140 135 - 145 mmol/L [facility] POTASSIUM 4.8 3.4 - 5.0 mmol/L [facility] Comment:Hemolysis present, r esult falsely increased. CHLORIDE 101 98 - 108 mmol/L [facility] CO2 25 23 - 32 mmol/L [facility] BUN 24 8 - 25 mg/dL [facility] CREATININE 0.84 0.60 - 1.50 mg/dL [facility] GLUCOSE 128(H) 70 - 110 mg/dL [facility] CALCIUM 9.2 8.5 - 10.5 mg/dL [facility] EGFR 92 >59 mL/min/1. 73m2 [facility] Comment:If patient is black, multiply result by 1.159. Estimated glomerular filtration rate calculated using the CKD-EPI equation. ANION GAP 14 3 - 17 mmol/L [facility] Blood 11/24/2018 11:2 6 AM EDT 11/24/2018 11:33 AM EDT us Aden [place] PA-C LAB BLOOD ORDERABLES Fin al Result [facility] [address] [place] [address] from Last 3 Months or Most Recently Relevant to Health Maintenance Insurance MEDICARE PART A & B [facility] MEDICARE PART A & B [facility] MEDICARE PART A & [facility] B [facility] MEDICARE PART A & B [id number] [place] [address]B MEDICARE PART A & B [facility] A & B MEDICARE PART A & B [facility] Care Teams Engineering Professor Relationship Specialty Start Date End Date Name, MD Memo [address] [place] [address] PCP - General Geriatric Psychiatry 12/29/17 Additional Source Comments The information contained in this document represents components of the legal health record. It is not the complete legal health record.[facility]
--- OUTSIDE RECORDS SUMMARY | 2025-03-03 18:58 | XMS_ITS | Encounter Summary ---
Author Organization [facility] Address [address] [place] [address] [place] [address] Phone Care Team Providers Care Pmo Manager Name Role Phone Name, Memo ARREDONDO Primary Care Provider [phone] Encounter Details Date Type Department Care Team (Late st Contact Info) Description 01/19/2018 Procedure Pass [facility] [address] [place] [address] Social History Tobacco Use Types Packs/Day Years [...] on filedocumented in this encounter Care Teams Pmo Manager Relationship Specialty Start Date End Date Name, MD Memo [address] [place] [address] PCP - General Geriatric Psychiatry 12/29/17 documented as of this encounter Additional Source Comments The information contained in this document represents components of the legal health record. It is not the complete legal health record.[facility]
--- OUTSIDE RECORDS SUMMARY | 2025-03-03 18:58 | XMS_ITS | Patient Health Record ---
Author Organization [facility] Address [address] [facility] [place] [address] Care Team Providers Care Special Education Case Manager Name Role Phone Name Memo ARREDONDO Primary Care Provider Rolly Manzanares Unavailable [phone] Allergies Allergen (clinical drug ingredient) Drug/Non Drug [...] atherosclerosis of arteries of lower limbs (disorder) ([id number] ) Atherosclerosis of [place] artery of both lower extremities, with unspecified presence of clinical manifestation (I70.203) Active confirmed Vital Signs Blood pressure diastolic 70 mm Hg 09/07/2024 Height 5 ft 11 in in 09/07/2024 Blood pressure systolic 120 mm Hg 09/07/2024 Weight 210 lbs 09/07/2024 BMI 29.29 kg/m2 09/07/2024 Procedures Procedure Date Ordered Date Performed Result Body Sit e 41069-Motymdfp Plate 09/07/2024 N/A Encounters Encounter Location Date Provider Diagnosis [facility] [address] [place] [address] 09/07/2024 Rollybreanna HillVirgil Ingrown nail L60.0 ; Cellulitis of toe of left foot L03.032 and Atherosclerosis of [place] artery of both lower extremities, with unspecified presence of clinical manifestation I70.203 Assessments Encounter Date Diagnosis (ICD Code) Assessment Notes Treatment Notes Treatment Clinical Notes Section Notes 09/07/2024 Ingrown nail (ICD-10 - L60.0) 09/07/2024 Cellulitis of toe of left foot (ICD-10 - L03.032) 09/07/2024 Atherosclerosis of [place] artery of both lower extremities, with unspecified presence of clinical manifestation (ICD-10 - I70.203) Plan Of Treatment Pending Test Test Name Order Date X ray : Foot, left 3V 01/23/2022 X ray : Foot, left 3V 11/29/2022 41601-CCSJFDB NAIL, 6 OR MORE 02/25/2023 63664-CWFRCRB NAIL, 6 OR MORE 11/29/2022 83515-TAZIHTK NAIL, 6 OR MORE 07/22/2023 82092-SHZYGFB NAIL, 6 OR MORE 03/05/2022 33996-VTEENDJ NAIL, 6 OR MORE 05/28/2022 28100-WRQIOVX NAIL, 6 OR MORE 08/27/2022 30034-Bacsvivq Plate 05/28/2022 12152-Btkqtfcc Plate 09/07/2024 05504- Debride <25 sq cm 01/23/2022 75223 I&D ABSCESS- SIMPLE,SINGLE 022 45744-RKQZ SKIN LESIONS, 2 TO 4 08/28/19 23 96982-AKNC SKIN LESIONS, 2 TO 4 05/28/20 22 56408-KLJA SKIN LESIONS, 2 TO 4 07/22/19 24 32078-HHNY SKIN LESIONS, 2 TO 4 11/30/19 23 86738-NKJU SKIN LESIONS, 2 TO 4 02/26/20 23 Next Appt Details Provider Name:Rolly Schmidt Virgil , 03/11/2025 01:30:00 PM, [address] [place], [address], Insurance Providers Payer Name Payer Address Payer Phone Subscriber Number Group Number Insured Name Patient Relationship to Insured Coverage Start Date Coverage End Date Medicare National Govt S[employer] [address] [facility] [place] [address] [id number] Myles Tipton Self - patient is the [...] Hospitalization History Reason Date(Month/Year) [facility]- Pacemaker 08/2024 [facility] - AFib and choke at sametime- coded 2x CPR done 2 days 06/13/2022 [facility] left knee 3 x between 5 weeks 2021 [facility] -Ugent Care painful L migel Ingrown? g ivedy antiboitics 01/08/22 Cardiac Cath and Stent Coronary artery disease invo lving [place] coronary artery of [place] heart with unstable angina pectoris
--- OUTSIDE RECORDS SUMMARY | 2025-03-03 18:58 | XMS_ITS | Encounter Summary ---
Author Organization [employer] Address [address] [place] [address] 7t [place] [address] Care Team Providers Care Sales Representatives Name Role Phone Name, Memo ARREDONDO Primary Care Provider [phone] Encounter Details Date Type Department Care Team ([facility] Contact Info) Description 02/28/2025 Orders Only GENERIC [...] Upcoming Encounters Date Type Department Care Team ([facility] st Contact Info) Description 04/05/2025 10:00 AM EDT Office Visit [address] [address] Name, MD Memo [address] [place] [address] 04/08/2025 9:00 AM EDT Telemedicine [address] [address] 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 RN documented as of this encounter Procedures Procedure Name Priority Date/Time Associated Diagnosis Comments CT ABDOMEN PELVIS W CONTRAST Routine 02/28/2025 8:00 PM EDT URINALYSIS WITH REFLEX MICROSCOPIC Routine 02/28/2025 7:37 PM EDT CBC WITH AUTO DIFFERENTIAL Routine 02/28/2025 3:16 PM EDT MAGNESIUM Routine 02/28/2025 3:15 PM EDT LIPASE Routine 02/28/2025 3:15 PM EDT HEPATIC FUNCTION PANEL Routine 02/28/2025 3:15 PM EDT BASIC METABOLIC PANEL Routine 02/28/2025 3:15 PM EDT documented in this encounter Results * CT Abdomen Pelvis w/ Contrast (02/28/2025 8:00 PM EDT) Anatomical Region Laterality Modality Body, Pelvis, Abdomen Computed T omography 02/28/2025 8:00 PM EDT Narrative 02/28/2025 8:02 PM EDT [place] [address] [address] Scan Report Signed Patient: Myles Tipton MR#: [id number] 5 : 1955 Acct:[id number] Age/Sex: 69 / M ADM Date: 02/28/25 Loc: HO.ED Attending Dr: Ordering Physician: Arsh Savage Date of Service: 02/28/25 Procedure(s): CT abdomen pelvis w IV con Accession Number(s): [id number] cc: Name,Memo ARREDONDO; Arsh Savage Report Number: [id number]: Total DLP = 672.00 mGy-cm Reason for Exam: LLQ pain CLINICAL HISTORY: LLQ pain CT abdomen and pelvis with contrast Comparison: CT/SR - CT ABDOMEN PELVIS W IV CON - 09/15/24 18:50 EDT Findings: No consolidation or effusion. Small hiatal hernia. Status post cholecystectomy. Mild intra and extrahepatic ductal dilation with CBD measuring up to 1.2 cm, unchanged in the interval. No renal stones. No hydronephrosis. Remainder of the solid organs are within normal limits. No bowel obstruction, pneumoperitoneum, or pneumatosis. Scattered diverticulosis of the descending colon without evidence of diverticulitis. Pelvic contents unremarkable. Appendix is not definitely visualized, correlate with history of appendectomy. The bones are intact. IMPRESSION: No acute findings. Status post cholecystectomy with mild intra and extrahepatic ductal dilation with CBD measuring up to 1.2 cm, unchanged in the interval. Scattered diverticulosis of the descending colon without evidence of acute diverticulitis. This document has been electronically signed by: Jacquie Benson MD on 02/28/2025 20:00:29 Dictated By: Jacquie Benson MD Signed By: <Electronically signed by Jacquie Benson MD in OV> 02/28/252000 DD/ 99 TD/TT: 02/28/251999 Patent Law Specialist: Procedure Note Donotuseinterpreter, Image - 02/28/[address] [address] [address] Scan Report Signed Patient: Myles TiptonMR#: [id number] 5 : 3Acct:[id number] Age/Sex: 69 / MADM Date: 02/28/25 Loc: HO.ED Attending Dr: Ordering Physician: Arsh Savage Date of Service: 02/28/25 Procedure(s): CT abdomen pelvis w IV con Accession Number(s): [id number] cc: Name,Memo ARREDONDO; Arsh Savage Report Number: [id number]: Total DLP = 672.00 mGy-cm Reason for Exam: LLQ pain CLINICAL HISTORY: LLQ pain CT abdomen and pelvis with contrast Comparison: CT/SR - CT ABDOMEN PELVIS W IV CON - 09/15/24 18:50 EDT Findings: No consolidation or effusion. Small hiatal hernia. Status post cholecystectomy. Mild intra and extrahepatic ductal dilation with CBD measuring up to 1.2 cm, unchanged in the interval. No renal stones. No hydronephrosis. Remainder of the solid organs are within normal limits. No bowel obstruction, pneumoperitoneum, or pneumatosis. Scattered diverticulosis of the descending colon without evidence of diverticulitis. Pelvic contents unremarkable. Appendix is not definitely visualized, correlate with history of appendectomy. The bones are intact. IMPRESSION: No acute findings. Status post cholecystectomy with mild intra and extrahepatic ductal dilation with CBD measuring up to 1.2 cm, unchanged in the interval. Scattered diverticulosis of the descending colon without evidence of acute diverticulitis. This document has been electronically signed by: Jacquie Benson MD on 02/28/2025 20:00:29 Dictated By: Jacquie Benson MD Signed By: <Electronically signed by Jacquie Benson MD in OV> 02/28/252000 DD/ 99 TD/TT: 02/28/251999 Patent Law Specialist: [facility] External Provider IMG CT PROCEDURES Edited Result - Final * (ABNORMAL) Urinalysis w/reflex microscopic (02/28/2025 7:37 PM EDT) Color Urine Yellow [facility] Appearance Urine Clear [facility] PH 7.0 5.0 - 9.0 [facility] Glucose Urine UA Negative Negative mg/dL [facility] Urine Blood Negative Negative [facility] Specific [place] - Urine >=1.030(H) 1.005 - 1.025 [facility] Urine Protein Negative Neg-Trace mg/dL [facility] Urine Ketones Negative Negative mg/dL [facility] Nitrite Urine Negative Negative [facility] Leukocyte Esterase Urine Negative Negative [facility] 02/28/2025 7:37 PM EDT 02/28/2025 7:42 PM EDT Narrative [facility] - 02/28/2025 7:46 PM EDT Urine, Clean Catch us Generic External Data Provider LAB URINE ORDERAB LES Final Result [facility] [address] [place] [phone] * (ABNORMAL) CBC auto differential (02/28/2025 3:16 PM EDT) White Blood Count 10.3 4.8 - 10.8 X10*3/uL [facility] Red Blood Count 4.32(L) 4.60 - 5.80 X10*6/uL [facility] Hemoglobin 13.4(L) 14.0 - 18.0 g/dl [facility] Hematocrit 39.6(L) 42.0 - 52.0 % [facility] Mean Corpuscular Volume 91.7 80.0 - 98.0 fL [facility] Mean Corpuscular Hemoglobin 31.0 27.0 - 33.0 pg [facility] Mean Corpuscular HGB Conc 33.8 31.0 - 36.0 g/dl [facility] Red Cell Distribution Width 12.6 11.0 - 16.0 % [facility] Platelet Count 270 160 - 400 X10*3/uL [facility] Mean Platelet Volume 8.4(L) 9.4 - 12.4 fL [facility] Neutrophils Percent Auto 65.2 45 - 73 % [facility] Imm Gran Pct Auto 0.3 0.0 - 0.4 % [facility] Lymphocytes Percent Auto 22.3 20 - 40 % [facility] Monocytes Percent Auto 9.0 2 - 11 % [facility] Eosinophils Percent Auto 2.5 0 - 4 % [facility] Basophils Percent Auto 0.7 0 - 2 % [facility] NRBC Pct Auto 0.0 0.0 - 0.2 /100WBC [facility] Neutrophils Absolute Auto 6.7 2.0 - 8.3 x10*3/uL [facility] Imm Gran Abs Auto 0.03 0.00 - 0.03 X10*3/uL [facility] Lymphocytes Absolute Auto 2.3 1.2 - 4.9 X10*3/uL [facility] Monocytes Absolute Auto 0.9 0.1 - 1.2 X10*3/uL [facility] Eosinophils Absolute Auto 0.3 0.0 - 0.4 X10*3/uL [facility] Basophils Absolute Auto 0.1 0.0 - 0.2 X10*3/uL [facility] NRBC Abs Auto 0.000 0.0 - 0.012 X10*3/uL [facility] 02/28/2025 3:16 PM EDT 02/28/2025 3:18 PM EDT us Generic External Data Provider LAB BLOOD ORDERAB LES Final Result [facility] [address] [place] [phone] * Lipase (02/28/2025 3:15 PM EDT) Lipase 13 8 - 78 U/L [facility] 02/28/2025 3:15 PM EDT 02/28/2025 3:18 PM EDT us Generic External Data Provider LAB BLOOD ORDERAB LES Final Result Performing Organization Address City/[facility]/ZIP Co de Phone Number [facility] [address] [place] [address] [phone] * Magnesium (02/28/2025 3:15 PM EDT) Pathologist [facility] Magnesium 2.2 1.6 - 2.6 mg/dL [facility] 02/28/2025 3:15 PM EDT 02/28/2025 3:18 PM EDT Generic External Data Provider LAB BLOOD ORDERAB LES Final Result Performing Organization Address [facility]/ZIP Co de Phone Number [facility] [address] [place] [phone] * (ABNORMAL) Basic Metabolic Panel (02/28/2025 3:15 PM EDT) Pathologist [facility] Sodium 142 135 - 145 mmol/L [facility] Potassium 3.9 3.3 - 5.1 mmol/L [facility] Chloride 105 96 - 108 mmol/L [facility] Carbon Dioxide 30(H) 22 - 29 mmol/L [facility] Anion Gap 11(L) 12 - 20 [facility] Urea Nitrogen (BUN) 18(H) 9 - 16 mg/dL [facility] Creatinine, Serum 0.69 0.5 - 1.4 mg/dL [facility] Creatinine Clr Calc Pharmacy 104.5 [facility] Comment:eGFR (calculated fro m the MDRD study equation) and eCrCl(calculated from the Cockcroft-Gault equation) are based ondifferent parameters and may not yield comparable results.If eCrCl result is absurd, please check patient'sheight/weight. Estimated Glomerular Filt Rate >60 [facility] Comment:Chronic Kidney Disea se: Estimated GFR < 60 mL/min/1.80s8Thktlx Kidney Disease: Estimated GFR < 15 mL/min/1.73m2 Glucose 99 60 - 115 mg/dL [facility] Calcium 9.0 8.4 - 10.2 mg/dL [facility] 02/28/2025 3:15 PM EDT 02/28/2025 3:18 PM EDT Generic External Data Provider LAB BLOOD ORDERAB LES Final Result Performing Organization Address [facility] Co de Phone Number [facility] [address] [place] [phone] * Hepatic Function Panel (02/28/2025 3:15 PM EDT) Bilirubin, Total 0.3 0.0 - 1.0 mg/dL [facility] Bilirubin, Direct 0.1 0.0 - 0.5 mg/dL [facility] Aspartate Amino Transferase 22 5 - 37 U/L [facility] Alanine Aminotransferase 11 0 - 40 U/L [facility] Total Protein 6.8 6.5 - 8.0 g/dL [facility] Albumin Level 4.1 3.5 - 5.0 g/dL [facility] Alkaline Phosphatase 89 39 - 117 U/L [facility] 02/28/2025 3:15 PM EDT 02/28/2025 3:18 PM EDT Generic External Data Provider LAB BLOOD ORDERAB LES Final Result Performing Organization Address [facility] de Phone Number [facility] [address] [place] [phone] documented in this encounter Visit Diagnoses Not on filedocumented in this encounter Additional Health Concerns Assessment Noted Time PHQ-9 Depression Total Score: 0 07/17/19 24 10:49 AM EST documented as of this encounter Care Teams Sales Representatives Relationship Specialty Start Date End Date Name, MD Memo [address] [place] [phone] PCP - General Family Medicine 08/30/15 documented as of this encounter
--- OUTSIDE RECORDS SUMMARY | 2025-03-03 18:58 | XMS_ITS | Encounter Summary ---
Author Organization [facility] Address [address] [place] [phone] Phone Care Team Providers Care Horse Stud Worker Name Role Phone Memo Alex MD Primary Care Provider [phone] Reason for Referral * Consultation (Within 1 month) - Closed Specialty Diagnoses / Procedures Referred By Contac t Referred To Contact Memo Alex MD Phone: tel: fax: [facility] [id number] Referral ID Status Reason Start Date Expiration Date Visits Re quested Visits Authorized [id number] Closed 12/30/2017 12/30/2018 1 1 Encounter Details Date Type Department Care Team ([facility] st Contact Info) Description 12/30/2017 Transcribe Orders [facility] [address] [place] [address] Unknown, Unknown, Social History Tobacco Use Types [...] Associated Diagnoses Order Schedule Ambulatory referral to [facility] Outpatient Referral Routine Ordered: 12/30/2017 documented as of this encounter Visit Diagnoses Not on filedocumented in this encounter Care Teams Horse Stud Worker Relationship Specialty Start Date End Date Memo Alex MD [address] [place] [address] PCP - General Geriatric Psychiatry 12/29/17 documented as of this encounter Additional Source Comments The information contained in this document represents components of the legal health record. It is not the complete legal health record.[facility]
--- OUTSIDE RECORDS SUMMARY | 2025-03-03 18:58 | XMS_ITS | Encounter Summary ---
Author Organization [employer] Address [address] [place] [address] 7t [place] [address] Care Team Providers Care Business Executive Name Role Phone Name, Memo ARREDONDO Primary Care Provider [phone] Reason for Visit * Reason Comments Med Refill Encounter Details Date Type Department Care Team ([facility] st Contact Info) Description 04/30/2023 Refill [facility] [address] [place], [place] [phone] [facility] [address] [place], [place] [phone] Coronary artery disease involving [place] heart without angina pectoris, unspecified vessel or [...] Description 04/05/2025 10:00 AM EDT Office Visit [facility] [address] [place] [address] NameMemo MD [address] [place] [address] 04/08/2025 9:00 AM EDT Telemedicine [address] [address] 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, VON documented as of this encounter Visit Diagnoses Diagnosis Coronary artery disease involving [place] heart without angina pectoris, unspecified vessel or lesion type documented in this encounter Additional Health Concerns Assessment Noted Time PHQ-9 Depression Total Score: 9 06/27/19 23 10:17 AM EST documented as of this encounter Care Teams Business Executive Relationship Specialty Start Date End Date Memo Alex MD [address] [place] [phone] PCP - General Family Medicine 08/30/15 documented as of this encounter
--- OUTSIDE RECORDS SUMMARY | 2025-03-03 18:58 | XMS_ITS | Encounter Summary ---
Author Organization [facility] [employer] Address [address] [place] [address] 7 [place] [address] Care Team Providers Care Vallez Filter Operator Name Role Phone Name, Memo ARREDONDO Primary Care Provider [phone] Reason for Visit * Reason Onset Date Comments Nurse Triage 09/03/2023 Encounter Details Date Type Department Care Team ([facility] st Contact Info) Description 09/03/2023 Telephone [facility] [address] [place], [place] [phone] Name, MD Memo [address] [place] [address] Nurse Triage Social History Tobacco Use Types [...] Telephone Encounter - Lindsey Bursn RN - 09/03/2023 4:05 PM EDT Triage call Pt was seen in [facility] Ed 09/02/23 , report is on the [...] if feels that symptoms continue to worsen. 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 Pt agreeswith disposition and home care advised. Insurance is verified as active. Protocol Used: Abdominal Pain - Male (Adult) Protocol-Based Disposition: Go to ED/[facility] Now (or to Office with PCP Approval) [...] accepted this outcome Pt inform went to [facility] ER on 09/02/23 but is still having counter server pain documented in this encounter Plan of Treatment Upcoming Encounters Date Type Department Care Team (Late st Contact Info) Description 04/05/2025 10:00 AM EDT Office Visit [facility] [address] [place] [address] Name, MD Memo [address] [place] [address] 04/08/2025 9:00 AM EDT Telemedicine [facility] [address] [place] [address] 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, VON documented as of this encounter Visit Diagnoses Not on filedocumented in this encounter Additional Health Concerns Assessment Noted Time PHQ-9 Depression Total Score: 0 07/17/19 10:49 AM EST documented as of this encounter Care Teams Vallez Filter Operator Relationship Specialty Start Date End Date NameMemo MD [address] [place] [phone] PCP - General Family Medicine 08/30/15 documented as of this encounter
--- OUTSIDE RECORDS SUMMARY | 2025-03-03 18:58 | XMS_ITS | Encounter Summary ---
Author Organization [employer] Address [address] [place] [address] 7 [place] [address] Care Team Providers Care Cut In Station Operator Name Role Phone Name, Memo ARREDONDO Primary Care Provider [phone] Encounter Details Date Type Department Care Team (Latest Contact Info) Description 07/09/2021 Abstract [facility] CONVERSIONS Dental, Provider, DDS Social History [...] Description 04/05/2025 10:00 AM EDT Office Visit [facility] [address] [place] [phone] Name, MD Memo [address] [place] [address] 04/08/2025 9:00 AM EDT Telemedicine [facility] [address] [place] [address] 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 RN documented as of this encounter Visit Diagnoses Not on filedocumented in this encounter Care Teams Cut In Station Operator Relationship Specialty Start Date End Date Memo Alex MD [address] [place] [address] PCP - General Family Medicine 08/30/15 documented as of this encounter
--- OUTSIDE RECORDS SUMMARY | 2025-03-03 18:59 | XMS_ITS | Encounter Summary ---
Author Organization [employer] Address [address] [place] [address] 7 [place] [address] Care Team Providers Care Community Health Worker Name Role Phone Name, Memo ARREDONDO Primary Care Provider [phone] Reason for Visit * Reason Onset Date Comments Error 03/25/2024 Encounter Details Date Type Department Care Team ([facility] Contact Info) Description 03/25/2024 Telephone [facility] [address] [place], [place] [phone] Name, MD Memo [address] [place] [address] Error Social History Tobacco Use Types Packs/Day [...] Description 04/05/2025 10:00 AM EDT Office Visit [facility] [address] [place] [address] Name, MD Memo [address] [place] [address] 04/08/2025 9:00 AM EDT Telemedicine [facility] [address] [place] [address] 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 RN documented as of this encounter Visit Diagnoses Not on filedocumented in this encounter Additional Health Concerns Assessment Noted Time PHQ-9 Depression Total Score: 0 07/17/19 24 10:49 AM EST documented as of this encounter Care Teams Community Health Worker Relationship Specialty Start Date End Date NameMemo MD [address] [place] [phone] PCP - General Family Medicine 08/30/15 documented as of this encounter
--- OUTSIDE RECORDS SUMMARY | 2025-03-03 18:59 | XMS_ITS | Encounter Summary ---
Author Organization [employer] Address [address] [place] [address] [address] [place] [address] Care Team Providers Care Neon Installer Name Role Phone Name, Memo ARREDONDO Primary Care Provider [phone] Reason for Visit * Reason Comments Med Refill Encounter Details Date Type Department Care Team ([facility] st Contact Info) Description 10/25/2022 Refill [facility] [address] [place], [place] [phone] Name, MD Memo [address] [place] [address] Chronic pain syndrome Social History Tobacco Use [...] 04/05/2025 10:00 AM EDT Office Visit [facility] [address] [place] [phone] Name, MD Memo [address] [place] [address] 04/08/2025 9:00 AM EDT Telemedicine [address] [address] 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 RN documented as of this encounter Visit Diagnoses Diagnosis Chronic pain syndrome documented in this encounter Additional Health Concerns Assessment Noted Time PHQ-9 Depression Total Score: 9 06/27/19 23 10:17 AM EST documented as of this encounter Care Teams Neon Installer Relationship Specialty Start Date End Date Name, MD Memo [address] [place] [address] PCP - General Family Medicine 08/30/15 documented as of this encounter
--- OUTSIDE RECORDS SUMMARY | 2025-03-03 18:59 | XMS_ITS | Clinical Summary ---
Author Organization [employer] Address [address] [place] [address] 7 [place] [address] Care Team Providers Care Wind Turbine Design Engineer Name Role Phone Name, Memo ARREDONDO Primary Care Provider [phone] Allergies Active Allergy Reactions Criticality Noted Date [...] 0.4 MG SL tabletIndicatio ns:Atherosclero sis of [place] coronary artery of [place] heart with stable angina pectoris (CMS/HCC) PLACE [...] MG EC tabletIndicatio ns:Coronary artery disease involving [place] heart without angina pectoris, unspecified vessel or [...] -advised foot exercises -tylenol prn -already saw street and building decorator few days ago-states had foot XR -per [...] he will try to readdress Atherosclerosis of [place] co ronary artery of [place] heart with stable angina pectoris 02/24/2018 Overview [...] artery disease of n ative artery of [place] heart with stable angina pectoris 09/04/2015 Radicular [...] 01/24/2015 Coronary artery stenosis 07/13/2014 Overview (05/14/2022): Pala Coronary Artery Stenosis Benign essential hypertension 07/13/2014 [...] DEPARTMENT Provider, Generic External Data 02/14/2025 Refill [facility] [address] [place] [address] Memo Alex MD Chronic pain syndrome 02/10/2025 Refill [facility] [address] [place], [place] [phone] Liliya Manrique MD 02/09/2025 Refill [facility] [address] [place] [address] Memo Alex MD Chronic pain syndrome 02/04/2025 Telephone [facility] [address] [place] [address] Memo Alex MD Call Back Request; Results 01/28/2025 9:30 AM EDT Telemedicine [facility] [address] [place] [address] 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, RN Long-term current use of opiate analgesic 01/28/2025 Refill [facility] [address] [place] [address] 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, RN Long-term current use of opiate analgesic (Primary Dx) 01/28/2025 Travel 01/26/2025 11:15 AM EDT Telemedicine [facility] [address] [place], [place] [address]sus[place] [address] Memo Alex MD Bilateral arm weakness (Primary Dx); Tremor of both hands 01/26/2025 Travel 01/25/2025 Telephone [facility] [address] [place] [address] Nick Long MA CHARTPREP 01/17/2025 Refill [facility] [address] [place] [address] Memo Alex MD Chronic pain syndrome 01/17/2025 Refill [facility] [address] [place] [address] Memo Alex MD Chronic pain syndrome 01/14/2025 Telephone [facility] [address] [place] [address] Allison Powers MA march recalls 12/20/2024 Refill [facility] [address] [place] [address] Memo Alex MD Chronic pain syndrome from [...] Description 04/05/2025 10:00 AM EDT Office Visit [facility] [address] [place] [address] Name, MD Memo [address] [place] [address] 04/08/2025 9:00 AM EDT Telemedicine [facility] [address] [place] [address] 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, RN Health Maintenance Due Date [...] PM EDT Narrative 02/28/2025 8:02 PM EDT [address] [address] [address] Scan Report Signed Patient: Myles Tipton MR#: [id number] 5 : 1955 Acct:[id number] Age/Sex: 69 / M ADM Date: 02/28/25 Loc: HO.ED Attending Dr: Ordering Physician: Arsh Savage Date of Service: 02/28/25 Procedure(s): CT abdomen pelvis w IV con Accession Number(s): [id number] cc: Name,Memo ARREDONDO; Arsh Savage Report Number: [id number]: Total DLP = 672.00 mGy-cm Reason for [...] in OV> 02/28/252000 DD/ 99 TD/TT: 02/28/251999 Commercial Administrator: Procedure Note Donotuseinterpreter, Image - 02/28/[address] [address] [address] Scan Report Signed Patient: Myles TiptonMR#: [id number] 5 : 3Acct:[id number] Age/Sex: 69 / MADM Date: 02/28/25 Loc: HO.ED Attending Dr: Ordering Physician: Arsh Savage Date of Service: 02/28/25 Procedure(s): CT abdomen pelvis w IV con Accession Number(s): [id number] cc: Name,Memo ARREDONDO; Arsh Savage Report Number: [id number]: Total DLP = 672.00 mGy-cm Reason for [...] in OV> 02/28/252000 DD/ 99 TD/TT: 02/28/251999 Commercial Administrator: [facility] External Provider IMG CT PROCEDURES Edited Result - Final * (ABNORMAL) Urinalysis w/reflex microscopic (02/28/2025 7:37 PM EDT) Color Urine Yellow [facility] Appearance Urine Clear [facility] PH 7.0 5.0 - 9.0 [facility] Glucose Urine UA Negative Negative mg/dL [facility] Urine Blood Negative Negative [facility] Specific Baker - Urine >=1.030(H) 1.005 - 1.025 [facility] Urine Protein Negative Neg-Trace mg/dL [facility] Urine Ketones Negative Negative mg/dL [facility] Nitrite Urine Negative Negative [facility] Leukocyte Esterase Urine Negative Negative [facility] 02/28/2025 7:37 PM EDT 02/28/2025 7:42 PM EDT Narrative [facility] - 02/28/2025 7:46 PM EDT Urine, Clean Catch us Generic External Data Provider LAB URINE ORDERAB LES Final Result [facility] [address] [place] [phone] * (ABNORMAL) CBC auto differential (02/28/2025 3:16 PM EDT) White Blood Count 10.3 4.8 - 10.8 X10*3/uL [facility] Red Blood Count 4.32(L) 4.60 - 5.80 X10*6/uL [facility] Hemoglobin 13.4(L) 14.0 - 18.0 g/dl [facility] Hematocrit 39.6(L) 42.0 - 52.0 % [facility] Mean Corpuscular Volume 91.7 80.0 - 98.0 fL [facility] Mean Corpuscular Hemoglobin 31.0 27.0 - 33.0 pg [facility] Mean Corpuscular HGB Conc 33.8 31.0 - 36.0 g/dl [facility] Red Cell Distribution Width 12.6 11.0 - 16.0 % [facility] Platelet Count 270 160 - 400 X10*3/uL [facility] Mean Platelet Volume 8.4(L) 9.4 - 12.4 fL [facility] Neutrophils Percent Auto 65.2 45 - 73 % [facility] Imm Gran Pct Auto 0.3 0.0 - 0.4 % [facility] Lymphocytes Percent Auto 22.3 20 - 40 % [facility] Monocytes Percent Auto 9.0 2 - 11 % [facility] Eosinophils Percent Auto 2.5 0 - 4 % [facility] Basophils Percent Auto 0.7 0 - 2 % [facility] NRBC Pct Auto 0.0 0.0 - 0.2 /100WBC [facility] Neutrophils Absolute Auto 6.7 2.0 - 8.3 x10*3/uL [facility] Imm Gran Abs Auto 0.03 0.00 - 0.03 X10*3/uL [facility] Lymphocytes Absolute Auto 2.3 1.2 - 4.9 X10*3/uL [facility] Monocytes Absolute Auto 0.9 0.1 - 1.2 X10*3/uL [facility] Eosinophils Absolute Auto 0.3 0.0 - 0.4 X10*3/uL [facility] Basophils Absolute Auto 0.1 0.0 - 0.2 X10*3/uL [facility] NRBC Abs Auto 0.000 0.0 - 0.012 X10*3/uL [facility] 02/28/2025 3:16 PM EDT 02/28/2025 3:18 PM EDT us Generic External Data Provider LAB BLOOD ORDERAB LES Final Result [facility] [address] [place] [address] [phone] * Magnesium (02/28/2025 3:15 PM EDT) Magnesium 2.2 1.6 - 2.6 mg/dL [facility] 02/28/2025 3:15 PM EDT 02/28/2025 3:18 PM EDT us Generic External Data Provider LAB BLOOD ORDERAB LES Final Result Performing Organization Address City/[facility]/ZIP Co de Phone Number [facility] [address] [place] [phone] * Lipase (02/28/2025 3:15 PM EDT) Pathologist [facility] Lipase 13 8 - 78 U/L [facility] 02/28/2025 3:15 PM EDT 02/28/2025 3:18 PM EDT Generic External Data Provider LAB BLOOD ORDERAB LES Final Result Performing Organization Address [facility] Phone Number [facility] [address] [place] [phone] * Hepatic Function Panel (02/28/2025 3:15 PM EDT) Pathologist [facility] Bilirubin, Total 0.3 0.0 - 1.0 mg/dL [facility] Bilirubin, Direct 0.1 0.0 - 0.5 mg/dL [facility] Aspartate Amino Transferase 22 5 - 37 U/L [facility] Alanine Aminotransferase 11 0 - 40 U/L [facility] Total Protein 6.8 6.5 - 8.0 g/dL [facility] Albumin Level 4.1 3.5 - 5.0 g/dL [facility] Alkaline Phosphatase 89 39 - 117 U/L [facility] 02/28/2025 3:15 PM EDT 02/28/2025 3:18 PM EDT Generic External Data Provider LAB BLOOD ORDERAB LES Final Result Performing Organization Address [facility] Co de Phone Number [facility] [address] [place] [phone] * (ABNORMAL) Basic Metabolic Panel (02/28/2025 3:15 PM EDT) Pathologist [facility] Sodium 142 135 - 145 mmol/L [facility] Potassium 3.9 3.3 - 5.1 mmol/L [facility] Chloride 105 96 - 108 mmol/L [facility] Carbon Dioxide 30(H) 22 - 29 mmol/L [facility] Anion Gap 11(L) 12 - 20 [facility] Urea Nitrogen (BUN) 18(H) 9 - 16 mg/dL [facility] Creatinine, Serum 0.69 0.5 - 1.4 mg/dL [facility] Creatinine Clr Calc Pharmacy 104.5 [facility] Comment:eGFR (calculated fro m the MDRD study equation) and eCrCl(calculated from the Cockcroft-Gault equation) are based ondifferent parameters and may not yield comparable results.If eCrCl result is absurd, please check patient'sheight/weight. Estimated Glomerular Filt Rate >60 [facility] Comment:Chronic Kidney Disea se: Estimated GFR < 60 mL/min/1.27c8Eholeo Kidney Disease: Estimated GFR < 15 mL/min/1.73m2 Glucose 99 60 - 115 mg/dL [facility] Calcium 9.0 8.4 - 10.2 mg/dL [facility] 02/28/2025 3:15 PM EDT 02/28/2025 3:18 PM EDT us Generic External Data Provider LAB BLOOD ORDERAB LES Final Result [facility] [address] [place] [phone] * XR CERVICAL SPINE 4V (01/27/2025 11:22 AM EDT) Anatomical Region Laterality Modality Abdomen Radiographic Nilda ging 01/27/2025 11:2 2 AM EDT Narrative 01/27/2025 11:38 AM EDT [address] [address] XRay Report Signed Patient: Myles Tipton MR#: [id number] 5 : 1955 Acct:[id number] Age/Sex: 69 / M ADM Date: 01/27/25 Loc: HO.XRAY Attending Dr: Memo Alex MD Ordering Physician: Memo Alex MD Date of Service: 01/27/25 Procedure(s): XR cervical spine 4V Accession Number(s): [id number] cc: Memo Alex MD EXAMINATION: XR CERVICAL [...] 4V IMPRESSION: Multilevel cervical spondylosis with a Billings deformity apex at C5-6. Electronically signed by: Bc Vasquez MD 01/27/2025 11:35 AM EDT Dictated By: Bc Gutiérrez MD Signed By: <Electronically signed by Bc Nicholas MD in OV> 01/27/25 1135 DD/ 1122 TD/TT: 01/27/25 1130 Commercial Administrator: Procedure Note Donotuseinterpreter, Image - 01/27/[address] [address] XRay Report Signed Patient: Myles TiptonMR#: [id number] 5 : 1955cct:[id number] Age/Sex: 69 / MADM Date: 01/27/25 Loc: HO.XRAY Attending Dr: Memo Alex MD Ordering Physician: Memo Alex MD Date of Service: 01/27/25 Procedure(s): XR cervical spine 4V Accession Number(s): [id number] cc: Memo Alex MD EXAMINATION: XR CERVICAL [...] 4V IMPRESSION: Multilevel cervical spondylosis with a Billings deformity apex at C5-6. Electronically signed by: Bc Vasquez MD 01/27/2025 11:35 AM EDT Dictated By: Bc Gutiérrez MD Signed By: <Electronically signed by Bc Nicholas MDin OV> 01/27/25 1135 DD/ 1122 TD/TT: 01/27/25 1130 Commercial Administrator: us Hampton Name IMMelinda XR PROCEDURES Final Result * Hm Colonoscopy (09/02/2024 6:46 PM EDT) Colonoscopy Normal Normal Narrative Aleta Wang - 09/02/2024 6:46 PM EDT Recommended repeat colonoscopy in 3 years see external hospital admission note on 09/02/2024 Historical Provider [facility] MAINTENANCE Edited Result - Final * Lipid Panel, Standard (01/02/2024 6:36 AM EDT) Triglycerides 112 <150 mg/dL [facility] Comment:Desirable Triglyceri de: less than 150 mg/dLBorderline High Triglyceride 150-199 mg/dLHigh Triglyceride: 200-499 mg/dLVery High Triglyceride: greater than or equal to 5OO mg/dL Cholesterol 154 <200 mg/dL [facility] Comment:Desirable Cholestero l: less than 200 mg/dLBorderline High Cholesterol: 200-239 mg/dLHigh Cholesterol: greater than 239 mg/dL LDL Cholesterol Calculated 83 <100 mg/dL [facility] Comment:Desirable LDL: less than 100 mg/dLNear Optimal/Above Optimal LDL: 110- 129 mg/dLBorderline High LDL: 130-159 mg/dLHigh LDL: 160-189 mg/dLVery High LDL: greater than or equal to 190 mg/dL HDL Cholesterol 49 >40 mg/dL [facility] Comment:Desirable HDL: great er than 40 mg/dL Note: This HDL assay may give artificially low results in patients with liver disease. 01/02/2024 6:36 AM EDT 01/02/2024 6:36 AM EDT us Generic External Data Provider LAB BLOOD ORDERAB LES Final Result Performing Organization Address [facility] de Phone Number [facility] [address] [place] [address] [phone] * Hepatitis Panel, General (09/01/2023 11:55 AM EDT) Hepatitis A IgM Nonreactive Nonreactive [facility] Comment:IgM antibodies to LANDEROS V not detected; does not exclude earlyacute or recovered HAV infection. ~Hepatitis B Surface Antibody REACTIVE Nonreactive [facility] Comment:REACTIVE: > 11.99 mI U/mL Hepatitis B Core Antibody Nonreactive Nonreactive [facility] Hepatitis C Antibody Nonreactive Nonreactive [facility] Comment:Antibodies to HCV no t detected; does not exclude early acuteHCV infection. Hepatitis B Surface Ag Negative Negative [facility] Blood 09/01/2023 11:5 5 AM EDT 09/01/2023 1:48 PM EDT us Sonia Ladd AGRICULTURAL EXTENSION EDUCATOR LAB BLOOD ORDERABLES Final Res ult Performing Organization Address [facility] Co de Phone Number [facility] [address] [place] [address] [phone] from Last 3 Months or Most Recently Relevant to Health Maintenance Insurance [facility] STANDARD MEDICARE Care Teams Wind Turbine Design Engineer Relationship Specialty Start Date End Date Name, MD Memo [address] [place] [phone] PCP - General Family Medicine 08/30/15
--- OUTSIDE RECORDS SUMMARY | 2025-03-03 18:59 | XMS_ITS | Encounter Summary ---
Author Organization [employer] Address [address] [place] [address] 7 [place] [address] Care Team Providers Care Electrifier Operator Name Role Phone Name, Memo ARREDONDO Primary Care Provider [phone] Encounter Details Date Type Department Care Team (Late Contact Info) Description [facility]2022 [facility] [address] [place], [place] [phone] Name, MD Memo [address] [place], [place] [phone] Social History Tobacco Use Types Packs/Day Years [...] Description 04/05/2025 10:00 AM EDT Office Visit [facility] [address] [place], [place] [phone] Name, [place] [address] 04/08/2025 9:00 AM EDT Telemedicine [facility] [address] [place] [phone] 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, RN documented as of this encounter Visit Diagnoses Not on filedocumented in this encounter Additional Health Concerns Assessment Noted Time PHQ-9 Depression Total Score: 9 06/27/19 23 10:17 AM EST documented as of this encounter Care Teams Electrifier Operator Relationship Specialty Start Date End Date Name, MD Memo [address] [place] [phone] PCP - General Family Medicine 08/30/15 documented as of this encounter
--- OUTSIDE RECORDS SUMMARY | 2025-03-03 18:59 | XMS_ITS | Encounter Summary ---
Author Organization [employer] Address [address] [place] [address] 7 [place] [address] Care Team Providers Care Laboratory Miller Name Role Phone Name, Memo ARREDONDO Primary Care Provider [phone] Reason for Visit * Reason Comments Med Refill Encounter Details Date Type Department Care Team ([facility] st Contact Info) Description 03/23/2024 Refill [facility] [address] [place], [place] [phone] Name, MD Memo [address] [place] [address] Social History Tobacco Use Types Packs/Day Years [...] Description 04/05/2025 10:00 AM EDT Office Visit [facility] [address] [place] [phone] Name, MD Memo [address] [place] [address] 04/08/2025 9:00 AM EDT Telemedicine [address] [address] 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, VON documented as of this encounter Visit Diagnoses Not on filedocumented in this encounter Additional Health Concerns Assessment Noted Time PHQ-9 Depression Total Score: 0 07/17/19 24 10:49 AM EST documented as of this encounter Care Teams Laboratory Miller Relationship Specialty Start Date End Date Memo Alex MD [address] [place] [address] PCP - General Family Medicine 08/30/15 documented as of this encounter
--- OUTSIDE RECORDS SUMMARY | 2025-03-03 18:59 | XMS_ITS | Encounter Summary ---
Author Organization [employer] Address [address] [facility] 7t [place] [address] Care Team Providers Care Machine Feed Operator Name Role Phone Name, Memo ARREDONDO Primary Care Provider Encounter Details Date Type Department Care Team ([facility] st Contact Info) Description 10/24/2024 Orders Only [facility] [address] [place], [place] [phone] ProviderFerdinand MD Social History Tobacco Use Types [...] Description 04/05/2025 10:00 AM EDT Office Visit [facility] [address] [place] [address] Name, MD Memo [address] [place] [address] 04/08/2025 9:00 AM EDT Telemedicine [address] [phone] 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, VON documented as of this [...] documented as of this encounter Care Teams Machine Feed Operator Relationship Specialty Start Date End Date Name, MD Memo [address] [place] [address] PCP - General Family Medicine 08/30/15 documented as of this encounter
--- OUTSIDE RECORDS SUMMARY | 2025-03-03 18:59 | XMS_ITS | Encounter Summary ---
Author Organization [employer] Address [address] [place] [address] 7 [place] [address] Care Team Providers Care Shipping Lead Person Name Role Phone Name, Memo ARREDONDO Primary Care Provider [phone] Reason for Visit * Reason Onset Date Comments Nurse Triage 11/17/2024 Encounter Details Date Type Department Care Team ([facility] st Contact Info) Description 11/17/2024 Telephone [facility] [address] [place], [place] [phone] Name, MD Memo [address] [place] [address] Nurse Triage Social History Tobacco Use Types [...] side of head. Pt is advised to [facility], Pt reports is at work till 630pm and will go to [facility] as soon as Pt leaves [...] life now The caller accepted this outcome. [phone] documented in this encounter Plan of Treatment Upcoming Encounters Date Type Department Care Team (Late st Contact Info) Description 04/05/2025 10:00 AM EDT Office Visit [facility] [address] [place] [address] NameMemo MD [address] [place] [address] 04/08/2025 9:00 AM EDT Telemedicine [address] [address] 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, VON documented as of this encounter Visit Diagnoses Not on filedocumented in this encounter Additional Health Concerns Assessment Noted Time PHQ-9 Depression Total Score: 0 07/17/19 24 10:49 AM EST documented as of this encounter Care Teams Shipping Lead Person Relationship Specialty Start Date End Date NameMemo MD [address] [place] [address] PCP - General Family Medicine 08/30/15 documented as of this encounter
== END 2025-03-03 15:10 | disposition home or self-care (01) ==
LOC: HO.HCS 14:35
PROVIDERS: PCP Internal Medicine Geriatric Medicine; Visit Provider Internal Medicine
DX: I25.10 Atherosclerotic heart disease of native coronary artery without angina pectoris (principal); I10 Essential (primary) hypertension; I49.5 Sick sinus syndrome; T82.110A Breakdown (mechanical) of cardiac electrode, initial encounter; I48.92 Unspecified atrial flutter
CPT/HCPCS: 99214; G2211

== ENCOUNTER → 2025-03-03 14:35 | Outpatient (BNVA) | payer MEDICARE, MEDICAID, SELFPAY | PROVIDERS: PCP Internal Medicine Geriatric Medicine; Visit Provider Internal Medicine | DX: I25.10 Atherosclerotic heart disease of native coronary artery without angina pectoris (principal); I10 Essential (primary) hypertension; Z72.0 Tobacco use; I48.92 Unspecified atrial flutter; I49.5 Sick sinus syndrome; T82.110A Breakdown (mechanical) of cardiac electrode, initial encounter; Z79.82 Long term (current) use of aspirin; E78.5 Hyperlipidemia, unspecified | CPT/HCPCS: 99212 ==

== ENCOUNTER 2025-03-11 07:51 | Outpatient (AMB) | payer MEDICARE, MEDICAID, SELFPAY ==
--- NOTE | 2025-03-11 07:53 | A.OFFVIS_ITS ---
Vital Signs 03/11/25 08:03 Height 5 ft 11 in Weight 200 lb BMI 27.9 BP 168/94 H Blood Pressure Location Lt brachial Position Sitting Respiration 16 Pulse 61 Pulse Source Pulse Oximeter Comment Provider aware of BP Intake Visit Reasons: ENP: Bilateral arm weakness/ Tremor both hands Component Assembler Required: No Allergies bee pollen (BEE STINGS) Allergy (Severe, Verified 03/11/25 08:07) ANAPHYLAXIS indomethacin (Indocin) Allergy (Severe, Verified 03/11/25 08:07) anaphylaxis tramadol (Ultram) Allergy (Severe, Verified 03/11/25 08:07) anaphylaxis fentanyl Adverse Reaction (Intermediate, Verified 03/11/25 08:07) Anxiety Medication List - Last Reconciled 03/11/25 by Staci Gonzáles CNP amlodipine 5 mg PO DAILY apixaban (Eliquis) 5 mg PO BID aspirin 81 mg PO QAM divalproex ER (Depakote ER) 250 mg PO BEDTIME esomeprazole magnesium 40 mg PO QAM ezetimibe (Zetia) 10 mg PO DAILY hyoscyamine sulfate 0.125 mg PO BID-QID PRN isosorbide mononitrate ER 60 mg PO DAILY lisinopril 5 mg PO DAILY magnesium citrate 148 mL PO BID PRN mesalamine ER (Apriso) 1.5 grams (4 x 0.375 gram) PO QAM metoprolol tartrate 100 mg PO BID multivitamin (Daily Vitamin Formula tablet) 1 tab PO DAILY nitroglycerin (Nitrostat) 0.4 mg sublingual Q5M PRN ondansetron 4 mg PO Q8H PRN oxycodone 10 mg PO Q5H PRN pantoprazole 40 mg PO DAILY polyethylene glycol 3350 (Miralax) 17 grams PO DAILY 2 weeks ranolazine ER 1,000 mg PO BID rosuvastatin (Crestor) 40 mg PO BEDTIME HPI Comments Details: The patient is a 69-year-old right hand dominant male with a past medical history of CVA, seizure, cardiac arrhythmia with a pacemaker on anticoagulation presenting with worsening tremors. Initially, the tremors were confined to the right hand and were thought to be essential tremors, but they have now progressed to the left side, severely affecting his ability to perform daily tasks such as writing, using a computer, and cutting food. The tremors have been present for approximately 4 years after his CVA and seizure. He was initially treated with Primidone for the tremors, which was ineffective and caused fatigue. He is currently on Keppra for seizure management, although there is some confusion about whether he is also taking Depakote, which could exacerbate tremors. He does not have any family history of tremor that he is aware of. He does report an uncle with ALS but otherwise no other known neurological disease in his family. The patient has a significant history of alcohol use, which he has abstained from for 16 years, and a history of cocaine use during his sports career. He reports a history of multiple concussions from playing sports, which lacked proper concussion protocols at the time. He continues to smoke tobacco, approximately half a pack per day. He denies any continue use of alcohol or other illicit substances. The patient also reports chronic back pain due to multiple back surgeries, which disrupts his sleep. He has undergone knee and hip replacements, which affect his gait. He has not seen any change in his balance or has not had any recent falls. [facility] Medical History (Updated 03/11/25 @ 08:50 by Staci Gonzáles CNP) Nicotine dependence, cigarettes, uncomplicated Elevated cholesterol History of chemotherapy Obstructive sleep apnea (~2018) On anticoagulant therapy DVT (deep venous thrombosis) Essential hypertension Tubular adenoma of colon COVID-19 vaccine administered Seizures (~04/2020) GERD (gastroesophageal reflux disease) Esophagitis Atherosclerotic cardiovascular disease Psychotic disorder Syncope Headache Myocardial infarction Pacemaker (~05/2013) Tremor Brain bleed CAD (coronary artery disease) Surgical History Hx of shoulder surgery History of total left knee replacement History of ERCP History of spinal surgery History of colonoscopy (~09/2020) History of right knee surgery (~12/2013) History of total right hip replacement (~06/2012) History of cholecystectomy History of cardiac catheterization History of permanent cardiac pacemaker placement (~05/2013) History of esophagogastroduodenoscopy (EGD) (~09/2020) History of appendectomy Stented coronary artery Family History Father Heavy cigarette smoker Throat cancer Mother Heart disease Social History Household Members: None Household Members Other:: shares house with a friend Housing: House Are you a primary healthcare risk control consultant to a significant other at home: No Do you presently have visiting nurse or other home services: No Alcohol intake: never Comment: resting eyes closed Patient Tobacco Use Status: Current someday Tobacco user Tobacco use type: Cigarette Years Smoked: 8 +/- e-Cigarette/Vaping Use: Never Used Second Hand Smoke Exposure: No Advance Directives Date on File: 12/16/20 service: No Current occupational status: employed and retired Review of Systems Const All systems reviewed & are unremarkable except as noted in HPI and below Neuro Denies Abnormal speech present Physical Exam Vital Signs: Last Vital Signs Pulse 61 03/11/25 08:03 Resp 16 03/11/25 08:03 BP 168/94 H 03/11/25 08:03 BMI result Body Mass Index 27.9 Const Orientation/consciousness: oriented to person, oriented to place and oriented to time HEENT Head: Yes normal to inspection Eyes Pupils: Equal, round and reactive pupils present Neuro General: oriented to person, oriented to place and oriented to time Cranial nerves: Yes CN's II-XII intact bilaterally, Yes Equal, round and reactive pupils present and Yes Bilaterally intact EOM present Cognition (Neuro): normal cognition Speech: No Abnormal speech present Gait exam (Neuro): Antalgic gait present and Other gait observations present (Some difficulty with walking heel-to-toe) Motor exam (neuro): 5/5 motor strength present throughout and Tremors during motor activity present (R>L action/intention. High amplitude with limb oscillations) bilateral upper extremity intention tremor Coordination: No [id number] test normal (R>L high amplitude tremor with limb oscillations. Ataxic movements) and Romberg test negative Psych Appearance: grossly normal Mental Status: mental status grossly normal Affect: normal affect Assessment & Plan Assessment & Plan (1) Intention tremor: Code(s): G25.2 - Other specified forms of tremor Category: Medical Plan: . Plan The patient is a 69-year-old right hand dominant male with a past medical history of CVA, seizure, cardiac arrhythmia with a pacemaker on anticoagulation presenting with worsening tremors. Tremors had previously been only localized to the right upper extremity and presumed to be an essential tremor but without any response to primidone. Over the course of the last year or so he now is experiencing left-sided tremors but to a lesser degree. His right sided tremor has also become more pronounced. He does admit to a significant history of drinking in the past. This tremor could represent an intention tremor/cerebellar tremor versus essential tremor. His med list does include Depakote 250 mg at bedtime however his primary care notes reflect that he has been on Keppra. I will clarify his medications. I did speak with him regarding Depakote use and that a known side effect of Depakote his tremor. If he is still currently taking Depakote at night, this may be aggravating his existing tremor. I will clarify his medications. I would like to order an MRI of the brain with and without contrast to get a better visualization of the soft tissues including the cerebellum and previous areas of infarct. He does have a pacemaker in place however it is MRI compatible. His exam revealed some possible weakness at the right wrist but otherwise str ength was 5/5. I am not convinced that this represented true weakness but was rather in part with his ataxia and inability to control his movements for appropriate strength testing. -MRI of the brain with and without contrast -labs: TSH and AED levels -follow up in 2 months after MRI of the brain Orders: Orders MR head/brain wo/w con Today G25.2 - Other specified forms of tremor TSH reflex Free T4 Today G93.89 - Other specified disorders of brain, R56.9 - Unspecified convulsions Levetiracetam Keppra Today G25.2 - Other specified forms of tremor, G93.89 - Other specified disorders of brain Valproate Today R56.9 - Unspecified convulsions Coding Level of Care Code New Pt Level 4 (11757) Diagnoses Intention tremor G25.2
--- OUTSIDE RECORDS SUMMARY | 2025-03-11 07:53 | XMS_ITS | Encounter Summary ---
Author Organization [employer] Address [address] [place] [address] 7t [place] [address] Care Team Providers Care Financial Engineer Name Role Phone Name, Memo ARREDONDO Primary Care Provider [phone] Reason for Visit * Reason Comments Med Refill Encounter Details Date Type Department Care Team ([facility] st Contact Info) Description 04/30/2023 Refill [facility] [address] [place], [place] [phone] [facility] [address] [place], [place] [phone] Coronary artery disease involving [place] heart without angina pectoris, unspecified vessel or [...] Description 04/05/2025 10:00 AM EDT Office Visit [facility] [address] [place] [phone] NameMemo MD [address] [place] [address] 04/08/2025 9:00 AM EDT Telemedicine [address] [address] 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, VON documented as of this encounter Visit Diagnoses Diagnosis Coronary artery disease involving [place] heart without angina pectoris, unspecified vessel or lesion type documented in this encounter Additional Health Concerns Assessment Noted Time PHQ-9 Depression Total Score: 9 06/27/19 23 10:17 AM EST documented as of this encounter Care Teams Financial Engineer Relationship Specialty Start Date End Date Memo Alex MD [address] [place] [phone] PCP - General Family Medicine 08/30/15 documented as of this encounter
--- OUTSIDE RECORDS SUMMARY | 2025-03-11 07:53 | XMS_ITS | Encounter Summary ---
Author Organization [employer] Address [address] [place] [address] 7 [place] [address] Care Team Providers Care Service Center Technician Name Role Phone Name, Memo ARREDONDO Primary Care Provider Reason for Visit * Reason Onset Date Comments returning call back 05/14/2022 Encounter Details Date Type Department Care Team ([facility] st Contact Info) Description 05/14/2022 Telephone [facility] [address] [place] [address] Name, MD Memo [address] [place] [address] returning call back Social History Tobacco Use [...] be called back. Please contact pt at [phone] documented in this encounter Plan of Treatment Upcoming Encounters Date Type Department Care Team (Late st Contact Info) Description 04/05/2025 10:00 AM EDT Office Visit [facility] [address] [place] [phone] Name, MD Memo [address] [place] [address] 04/08/2025 9:00 AM EDT Telemedicine [address] [address] 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, VON documented as of this encounter Visit Diagnoses Not on filedocumented in this encounter Care Teams Service Center Technician Relationship Specialty Start Date End Date Name, MD Memo [address] [place] [phone] PCP - General Family Medicine 08/30/15 documented as of this encounter
--- OUTSIDE RECORDS SUMMARY | 2025-03-11 07:53 | XMS_ITS | Clinical Summary ---
Author Organization [facility] Address [address] [place] [address] Phone Care Team Providers Care Managing Attorney Name Role Phone Name, Memo ARREDONDO Primary Care Provider [phone] Allergies Active Allergy Reactions Criticality Noted Date [...] up in a few months Atherosclerosis of [place] co ronary artery of [place] heart with stable angina pectoris 02/24/2018 Assessment & Plan (2020 9:01 AM EST): His angina is well controlled currently we reviewed his previous nuclear stress testing from January he also had a CTA done in November continue medical therapy Assessment & Plan (01/13/2020 9:02 PM EDT): History of CAD dating back to 2012 with IA, stents and stable and unstable angina. He [...] EDT) SODIUM 140 135 - 145 mmol/L [facility] POTASSIUM 4.8 3.4 - 5.0 mmol/L [facility] Comment:Hemolysis present, r esult falsely increased. CHLORIDE 101 98 - 108 mmol/L [facility] CO2 25 23 - 32 mmol/L [facility] BUN 24 8 - 25 mg/dL [facility] CREATININE 0.84 0.60 - 1.50 mg/dL [facility] GLUCOSE 128(H) 70 - 110 mg/dL [facility] CALCIUM 9.2 8.5 - 10.5 mg/dL [facility] EGFR 92 >59 mL/min/1. 73m2 [facility] Comment:If patient is black, multiply result by 1.159. Estimated glomerular filtration rate calculated using the CKD-EPI equation. ANION GAP 14 3 - 17 mmol/L [facility] Blood 11/24/2018 11:2 6 AM EDT 11/24/2018 11:33 AM EDT us Aden Herndon PA-C LAB BLOOD ORDERABLES Fin al Result [facility] [address] [place] [address] from Last 3 Months or Most Recently Relevant to Health Maintenance Insurance MEDICARE PART A & B [facility] MEDICARE PART A & B [facility] MEDICARE PART A & [facility] PART [facility] & B [facility] MEDICARE PART A & B [id number] [place], [place] [address]B MEDICARE PART A & [facility] MED[facility] PART A & B MEDICARE PART A & B [facility] Care Teams Managing Attorney Relationship Specialty Start Date End Date Name, MD Memo [address] [place] [address] PCP - General Geriatric Psychiatry 12/29/17 Additional Source Comments The information contained in this document represents components of the legal health record. It is not the complete legal health record.[facility]
--- OUTSIDE RECORDS SUMMARY | 2025-03-11 07:53 | XMS_ITS | Encounter Summary ---
Author Organization [facility] Address [address] [place] [address] Phone Care Team Providers Care Packing Supervisor Name Role Phone Memo Alex MD Primary Care Provider [phone] Reason for Referral * Consultation (Within 1 month) - Closed Specialty Diagnoses / Procedures Referred By Contac t Referred To Contact Memo Alex MD Phone: tel: fax: [facility] CARD [id number] Referral ID Status Reason Start Date Expiration Date Visits Re quested Visits Authorized [id number] Closed 12/30/2017 12/30/2018 1 1 Encounter Details Date Type Department Care Team ([facility] st Contact Info) Description 12/30/2017 Transcribe Orders [facility] Cardiology [address] [place] [id number] Unknown, Unknown, Social History Tobacco Use Types [...] Associated Diagnoses Order Schedule Ambulatory referral to [facility] Cardiology Outpatient Referral Routine Ordered: 12/30/2017 documented as of this encounter Visit Diagnoses Not on filedocumented in this encounter Care Teams Packing Supervisor Relationship Specialty Start Date End Date Memo Alex MD [address] [place] [address] PCP - General Geriatric Psychiatry 12/29/17 documented as of this encounter Additional Source Comments The information contained in this document represents components of the legal health record. It is not the complete legal health record.[facility]
--- OUTSIDE RECORDS SUMMARY | 2025-03-11 07:53 | XMS_ITS | Encounter Summary ---
Author Organization [employer] Address [address] [place] [address] 7 [place] [address] Care Team Providers Care Pay Station Collector Name Role Phone Name, Memo ARREDONDO Primary Care Provider [phone] Reason for Visit * Reason Comments Med Refill Encounter Details Date Type Department Care Team ([facility] st Contact Info) Description 02/09/2025 Refill [facility] [address] [place], [place] [phone] Name, MD Memo [address] [place] [address] Chronic pain syndrome Social History Tobacco Use [...] 04/05/2025 10:00 AM EDT Office Visit [facility] [address] [place] [address] Name, MD Memo [address] [place] [address] 04/08/2025 9:00 AM EDT Telemedicine [address] [address] 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, VON documented as of this encounter Visit Diagnoses Diagnosis Chronic pain syndrome documented in this encounter Additional Health Concerns Assessment Noted Time PHQ-9 Depression Total Score: 0 07/17/19 24 10:49 AM EST documented as of this encounter Care Teams Pay Station Collector Relationship Specialty Start Date End Date Name, MD Memo [address] [place] [address] PCP - General Family Medicine 08/30/15 documented as of this encounter
--- OUTSIDE RECORDS SUMMARY | 2025-03-11 07:53 | XMS_ITS | Encounter Summary ---
Author Organization [employer] Address [address] [place] [address] 7 [place] [address] Care Team Providers Care Ladies' Hat Trimmer Name Role Phone Name, Memo ARREDONDO Primary Care Provider [phone] Reason for Visit * Reason Onset Date Comments Nurse Triage 09/03/2023 Encounter Details Date Type Department Care Team ([facility] st Contact Info) Description 09/03/2023 Telephone [facility] [address] [place], [place] [phone] Name, MD Memo [address] [place] [address] Nurse Triage Social History Tobacco Use Types [...] EDT Triage call Pt was seen in [facility] Ed 09/02/23 , report is on the [...] if feels that symptoms continue to worsen. Insulation Inspector will forward this triage to PCP and nursing team. Pt agreeswith disposition and home care advised. Insurance is verified as active. Protocol Used: Abdominal Pain - Male (Adult) Protocol-Based Disposition: Go to ED/[facility] Now (or to Office with PCP Approval) [...] accepted this outcome Pt inform went to 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 documented in this encounter Plan of Treatment Upcoming Encounters Date Type Department Care Team (Late st Contact Info) Description 04/05/2025 10:00 AM EDT Office Visit [facility] [address] [place] [address] Name, MD Memo [address] [place] [address] 04/08/2025 9:00 AM EDT Telemedicine [facility] [address] [place] [address] 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, VON documented as of this encounter Visit Diagnoses Not on filedocumented in this encounter Additional Health Concerns Assessment Noted Time PHQ-9 Depression Total Score: 0 07/17/19 10:49 AM EST documented as of this encounter Care Teams Ladies' Hat Trimmer Relationship Specialty Start Date End Date NameMemo MD [address] [place] [address] PCP - General Family Medicine 08/30/15 documented as of this encounter
--- OUTSIDE RECORDS SUMMARY | 2025-03-11 07:53 | XMS_ITS | Encounter Summary ---
Author Organization [employer] Address [address] [place] [address] 7 [place] [address] Care Team Providers Care Hadoop Engineer Name Role Phone Name, Memo ARREDONDO Primary Care Provider [phone] Reason for Visit * Reason Onset Date Comments ER Follow-up 03/07/2025 Encounter Details Date Type Department Care Team ([facility] st Contact Info) Description 03/07/2025 Telephone [facility] [address] [place], [place] [phone] Name, MD Memo [address] [place] [address] ER Follow-up Social History Tobacco Use Types [...] encounter Miscellaneous Notes * Telephone Encounter - Sada Sheridan LPN - 03/07/2025 3:11 PM EDT Triage call returned to patient who reports that he still does not feel well following [facility] visit[facility]. Per patient he followed all discharge instructions and denies chest pain shortness of breath vomiting or diarrhea. Patient received COVID & Flu Vaccines last and reports profuse sweating all over. Has been unable to stay at work with pain that is intermittent right and left upper back below scapulas. Has not taken any OTC Tylenol at time of call as he takes Eliquis. Reviewed with patient at this time. Disposition reviewed and patient in agreement with plan. Reviewed withpatient home care recommendations, reasons to call back and symptoms that require immediate evaluation in UC or ER. Patient verbalized understanding and agrees. No PCP or Team appts. Available at time of call. [facility] hours and availability providedfor patient evaluation. Triage nurse informed the patient may have a wait of 1-2 hours because [facility] may have delays due to patient volume or symptom acuity. Insurance verified as active. Protocol Used: Flank Pain (Adult) Protocol-Based Disposition: See in Office or Video Visit Today Override (Final) Disposition: Go to Urgent Care Now Override Reason: No appointments available Override Notes: Patient advised of [facility] hours for today and tomorrow. Video visit not offered Positive Triage Question: * Moderate pain (e.g., interferes with normal activities or awakens from sleep) * All higher-acuity triage questions were negative Care Advice Discussed: * Pain Medicines * Reasons To Call Back - You become worse * Telephone Encounter - Keara Mayfield - 03/07/2025 3:03 PM EDT Patient calling to report ED visit on : Date: 02/28 Hospital: [facility] Seen for: Severe abdominal pain Symptomatic Yes *if yes message should go to Triage Patient advised will forward to team nurse for follow up Pt stated he has the flu and covid shot Contact pt at [phone] documented in this encounter Plan of Treatment Upcoming Encounters Date Type Department Care Team (Late st Contact Info) Description 04/05/2025 10:00 AM EDT Office Visit [address] [address] Name, MD Memo [address] [place] [address] 04/08/2025 9:00 AM EDT Telemedicine [address] [address] 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, VON documented as of this encounter Visit Diagnoses Not on filedocumented in this encounter Additional Health Concerns Assessment Noted Time PHQ-9 Depression Total Score: 0 07/17/19 24 10:49 AM EST documented as of this encounter Care Teams Hadoop Engineer Relationship Specialty Start Date End Date Memo Alex MD [address] [place] [address] PCP - General Family Medicine 08/30/15 documented as of this encounter
--- OUTSIDE RECORDS SUMMARY | 2025-03-11 07:53 | XMS_ITS | Encounter Summary ---
Author Organization [facility] Address [address] [place] [address] [place] [phone] Phone Care Team Providers Care Tools And Parts Attendant Name Role Phone Name, Memo ARREDONDO Primary Care Provider [phone] Encounter Details Date Type Department Care Team (Late st Contact Info) Description 01/19/2018 Procedure Pass [facility] Imaging [address] [place] [address] Social History Tobacco Use Types Packs/Day Years [...] on filedocumented in this encounter Care Teams Tools And Parts Attendant Relationship Specialty Start Date End Date Name, MD Memo [address] [place] [address] PCP - General Geriatric Psychiatry 12/29/17 documented as of this encounter Additional Source Comments The information contained in this document represents components of the legal health record. It is not the complete legal health record.[facility]
--- OUTSIDE RECORDS SUMMARY | 2025-03-11 07:53 | XMS_ITS | Encounter Summary ---
Author Organization [employer] Address [address] [place] [address] [address] [place] [address] Care Team Providers Care Oral Health Therapist Name Role Phone Name, Memo ARREDONDO Primary Care Provider [phone] Reason for Visit * Reason Comments Med Refill Encounter Details Date Type Department Care Team ([facility] st Contact Info) Description 02/03/2024 Refill [facility] [address] [place], [place] [phone] Name, MD Memo [address] [place] [address] Chronic pain syndrome Social History Tobacco Use [...] Description 04/05/2025 10:00 AM EDT Office Visit [facility] [address] [place] [address] NameMemo MD [address] [place] [address] 04/08/2025 9:00 AM EDT Telemedicine [facility] [address] [place] [address] 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, VON documented as of this encounter Visit Diagnoses Diagnosis Chronic pain syndrome documented in this encounter Additional Health Concerns Assessment Noted Time PHQ-9 Depression Total Score: 0 07/17/19 24 10:49 AM EST documented as of this encounter Care Teams Oral Health Therapist Relationship Specialty Start Date End Date Memo Alex MD [address] [place] [address] PCP - General Family Medicine 08/30/15 documented as of this encounter
--- OUTSIDE RECORDS SUMMARY | 2025-03-11 07:53 | XMS_ITS | Encounter Summary ---
Author Organization [employer] Address [address] [place] [address] 7 [place] [address] Care Team Providers Care Wood Heel Flap Trimmer Name Role Phone Name, Memo ARREDONDO Primary Care Provider [phone] Encounter Details Date Type Department Care Team (Latest Contact Info) Description 07/09/2021 Abstract [facility] CON[facility] Dental, Provider, DDS Social History [...] Description 04/05/2025 10:00 AM EDT Office Visit [facility] [address] [place] [address] Name, MD Memo [address] [place] [address] 04/08/2025 9:00 AM EDT Telemedicine [facility] [address] [place] [address] 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 RN documented as of this encounter Visit Diagnoses Not on filedocumented in this encounter Care Teams Wood Heel Flap Trimmer Relationship Specialty Start Date End Date Memo Alex MD [address] [place] [address] PCP - General Family Medicine 08/30/15 documented as of this encounter
--- OUTSIDE RECORDS SUMMARY | 2025-03-11 07:53 | XMS_ITS | Encounter Summary ---
Author Organization [facility] Address [address] [place] [address] [place] [address] Phone Care Team Providers Care Tire Technician Name Role Phone Name, Memo ARREDONDO Primary Care Provider [phone] Encounter Details Date Type Department Care Team (Late st Contact Info) Description 01/19/2018 Procedure Pass [facility] Imaging [address] [place] [address] Social History Tobacco Use Types Packs/Day Years [...] on filedocumented in this encounter Care Teams Tire Technician Relationship Specialty Start Date End Date Name, MD Memo [address] [place] [address] PCP - General Geriatric Psychiatry 12/29/17 documented as of this encounter Additional Source Comments The information contained in this document represents components of the legal health record. It is not the complete legal health record.[facility]
--- OUTSIDE RECORDS SUMMARY | 2025-03-11 07:53 | XMS_ITS | Encounter Summary ---
Author Organization [employer] Address [address] [place] [address] 7t [place] [address] Care Team Providers Care Lung Puller Name Role Phone Name, Memo ARREDONDO Primary Care Provider [phone] Encounter Details Date Type Department Care Team ([facility] Contact Info) Description 06/06/2022 Telephone [facility] [address] [place] [address] [phone] NameMemo MD [address] [place] [phone] Social History Tobacco Use Types Packs/Day Years [...] Description 04/05/2025 10:00 AM EDT Office Visit [facility] [address] [place] [address] [phone] Memo Alex MD [address] [place] [address] [phone] 04/08/2025 9:00 AM EDT Telemedicine [facility] [address] [place] [phone] 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, RN documented as of this encounter Visit Diagnoses Not on filedocumented in this encounter Care Teams Lung Puller Relationship Specialty Start Date End Date Name, MD Memo [address] [place] [address] PCP - General Family Medicine 08/30/15 documented as of this encounter
--- OUTSIDE RECORDS SUMMARY | 2025-03-11 07:53 | XMS_ITS | Encounter Summary ---
Author Organization [employer] Address [address] [facility] 7t [place] [address] Care Team Providers Care Cardiac Cath Lab Manager Name Role Phone Name, Memo ARREDONDO Primary Care Provider [phone] Reason for Visit * Reason Onset Date Comments triage 06/06/2022 Encounter Details Date Type Department Care Team ([facility] st Contact Info) Description 06/06/2022 Telephone [facility] [address] [place] [address] Name, MD Memo [address] [place] [address] triage Social History Tobacco Use Types Packs/Day [...] visit with PRIYANKA Schwab at 1115am . [facility] unable to schedule a tele [...] Description 04/05/2025 10:00 AM EDT Office Visit [address] [address] Name, MD Memo [address] [place] [address] 04/08/2025 9:00 AM EDT Telemedicine [facility] [address] [place] [phone] 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 RN documented as of this encounter Visit Diagnoses Not on filedocumented in this encounter Care Teams Cardiac Cath Lab Manager Relationship Specialty Start Date End Date Name, MD Memo [address] [place] [phone] PCP - General Family Medicine 08/30/15 documented as of this encounter
--- OUTSIDE RECORDS SUMMARY | 2025-03-11 07:53 | XMS_ITS | Encounter Summary ---
Author Organization [employer] Address [address] [place] [address] 7t [place] [address] Care Team Providers Care Powerbuilder Name Role Phone Name, Memo ARREDONDO Primary Care Provider Reason for Visit * Reason Onset Date Comments Med Refill 09/29/2024 Encounter Details Date Type Department Care Team ([facility] st Contact Info) Description 09/29/2024 Telephone [facility] [address] [place], [place] [phone] Name, MD Memo [address] [place] [address] Med Refill Social History Tobacco Use Types [...] immediate release tablet To be sent to: [facility] - [place], [place] - [address] [place] [address] *pt wanting an early fill because will be leaving [facility] in the afternoon to [place] documented in this encounter Plan of Treatment Upcoming Encounters Date Type Department Care Team ([facility] st Contact Info) Description 04/05/2025 10:00 AM EDT Office Visit [facility] [address] [place] [phone] Name, MD Memo [address] [place] [address] 04/08/2025 9:00 AM EDT Telemedicine [facility] [address] [place] [phone] 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 RN documented as of this encounter Visit Diagnoses Not on filedocumented in this encounter Additional Health Concerns Assessment Noted Time PHQ-9 Depression Total Score: 0 07/17/19 24 10:49 AM EST documented as of this encounter Care Teams Powerbuilder Relationship Specialty Start Date End Date Name, MD Memo [address] [place] [address] PCP - General Family Medicine 08/30/15 documented as of this encounter
--- OUTSIDE RECORDS SUMMARY | 2025-03-11 07:53 | XMS_ITS | Encounter Summary ---
Author Organization [employer] Address [address] [facility] 7t [place] [address] Care Team Providers Care Paint Crew Supervisor Name Role Phone Name, Memo ARREDONDO Primary Care Provider [phone] Reason for Visit * Reason Onset Date Comments triage 06/05/2022 Encounter Details Date Type Department Care Team ([facility] st Contact Info) Description 06/05/2022 Telephone [facility] [address] [place] [address] Name, MD Memo [address] [place] [address] triage Social History Tobacco Use Types Packs/Day [...] Description 04/05/2025 10:00 AM EDT Office Visit [address] [address] Name, MD Memo [address] [place] [phone] 04/08/2025 9:00 AM EDT Telemedicine [address] [address] 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 RN documented as of this encounter Visit Diagnoses Not on filedocumented in this encounter Care Teams Paint Crew Supervisor Relationship Specialty Start Date End Date Name, MD Memo [address] [place] [phone] PCP - General Family Medicine 08/30/15 documented as of this encounter
--- OUTSIDE RECORDS SUMMARY | 2025-03-11 07:53 | XMS_ITS | Encounter Summary ---
Author Organization [employer] Address [address] [place] [address] 7 [place] [address] Care Team Providers Care Physical Therapy Assistant Instructor Name Role Phone Name, Memo ARREDONDO Primary Care Provider [phone] Reason for Visit * Reason Onset Date Comments ER Follow-up 09/16/2024 Encounter Details Date Type Department Care Team ([facility] st Contact Info) Description 09/16/2024 Telephone [facility] [address] [place], [place] [phone] Name, MD Memo [address] [place] [address] ER Follow-up Social History Tobacco Use Types [...] 09/16/2024 10:30 AM EDT Pt evaluated in [facility] ED 09/15/24 Dx: Syncope, concussion. Pt left [...] ED visit on : Date: 09/15/24 Hospital: [facility] Seen for: Concussion Symptomatic No *if yes message should go to Triage Patient advised will forward to team nurse for follow up Contact pt at [phone] documented in this encounter Plan of Treatment Upcoming Encounters Date Type Department Care Team (Late st Contact Info) Description 04/05/2025 10:00 AM EDT Office Visit [address] [address] Name, MD Memo [address] [place] [phone] 04/08/2025 9:00 AM EDT Telemedicine [address] [address] 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, VON documented as of this encounter Visit Diagnoses Not on filedocumented in this encounter Additional Health Concerns Assessment Noted Time PHQ-9 Depression Total Score: 0 07/17/19 24 10:49 AM EST documented as of this encounter Care Teams Physical Therapy Assistant Instructor Relationship Specialty Start Date End Date Name, MD Memo [address] [place] [phone] PCP - General Family Medicine 08/30/15 documented as of this encounter
--- OUTSIDE RECORDS SUMMARY | 2025-03-11 07:54 | XMS_ITS | Encounter Summary ---
Author Organization [employer] Address [address] [place] [address] [address] [place] [address] Care Team Providers Care Gallery Host Name Role Phone Name, Memo ARREDONDO Primary Care Provider [phone] Reason for Visit * Reason Comments Med Refill Encounter Details Date Type Department Care Team ([facility] st Contact Info) Description 03/23/2024 Refill [facility] [address] [place], [place] [phone] Name, MD Memo [address] [place] [address] Social History Tobacco Use Types Packs/Day Years [...] 10:00 AM EDT Office Visit [facility] [address] [place] [phone] Name, MD Memo [address] [place] [address] 04/08/2025 9:00 AM EDT Telemedicine [address] [address] 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, VON documented as of this encounter Visit Diagnoses Not on filedocumented in this encounter Additional Health Concerns Assessment Noted Time PHQ-9 Depression Total Score: 0 07/17/19 24 10:49 AM EST documented as of this encounter Care Teams Gallery Host Relationship Specialty Start Date End Date Memo Alex MD [address] [place] [phone] PCP - General Family Medicine 08/30/15 documented as of this encounter
--- OUTSIDE RECORDS SUMMARY | 2025-03-11 07:54 | XMS_ITS | Clinical Summary ---
Author Organization [employer] Address [address] [place] [address] 7 [place] [address] Care Team Providers Care Audit Mgr Name Role Phone Name, Memo ARREDONDO Primary Care Provider [phone] Allergies Active Allergy Reactions Criticality Noted Date [...] proximal lower extremity, unspecified chronicity, unspecified laterality (HCC) TAKE 1 TABLET BY MOUTH TWICE DAILY IN THE MORNING AND IN THE EVENING 60 tablet 5 024 Active nicotine (Nicoderm CQ) 21 MG/24HR patch Place 1 patch on the skin 1 (one) time each day at the same time. 30 patch Active nitroglycerin (Nitrostat) 0.4 MG SL tabletIndicatio ns:Atherosclero sis of chickahominy indians-eastern division coronary artery of chickahominy indians-eastern division heart with stable angina pectoris PLACE 1 TABLET UNDER THE TONGUE EVERY [...] MG EC tabletIndicatio ns:Coronary artery disease involving chickahominy indians-eastern division heart without angina pectoris, unspecified vessel or [...] TABLET BY MOUTH EVERY MORNING 90 tablet Active oxyCODONE (Roxicodone) 10 MG immediate release [...] 11/10/2024 Polyarthralgia 11/10/2024 Preoperative cardiovascular examination 11/11/19 25 Proctocolitis 11/10/2024 Varicose veins of left lower [...] 12/26/2022 Upper abdominal pain 12/26/2022 Atrial flutter (CMS/HCC) 12/26/2022 Cerebral calcification 12/26/2022 Choking episode 12/26/2022 Hypoxia 12/26/2022 Osteoarthritis of right shoulder 12/26/2022 Nausea 12/26/2022 On anticoagulant therapy 12/26/2022 PAD (peripheral artery disease) 12/26/2022 PAF (paroxysmal atrial fibrillation) 12/26/2022 Personal history of nicotine dependence 12/27/19 Sick sinus syndrome (CMS/HCC) 12/26/2022 Pacemaker 12/26/2022 CAD (coronary artery disease) [...] -advised foot exercises -tylenol prn -already saw baggage agent few days ago-states had foot XR -per [...] right wrist with recent prednisone tx, to cigar packer and picker 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 per [facility] Primary localized osteoarthritis of pelvic regio n and thigh 05/14/2022 Rotator cuff impingement syndrome 05/14/2022 Tobacco dependence 05/14/2022 Tubular adenoma of colon 05/14/2022 Acute deep vein thrombosis ( DVT) of proximal vein of left lower extremity 05/14/2022 Deep vein thrombosis (DVT) (CMS/HCC) 05/14/2022 Gastroesophageal reflux disease 05/14/2022 Hypertension 05/14/2022 Acute myocardial infarction 05/14/2022 Osteoarthritis of knee 05/14/2022 Syncope 05/14/2022 Anxiety 05/01/2022 Deep venous thrombosis of lower extremity 2021 Depressive disorder 05/01/2022 Esophagitis 05/01/2022 Gastroduodenitis 05/01/2022 Headache 05/01/2022 Lung mass 05/01/2022 Pain of left calf 05/01/2022 Seizure (CMS/HCC) 05/01/2022 Visual impairment 05/01/2022 Obstructive sleep apnea [...] he will try to readdress Atherosclerosis of chickahominy indians-eastern division co ronary artery of chickahominy indians-eastern division heart with stable angina pectoris 02/24/2018 Overview [...] artery disease of n ative artery of chickahominy indians-eastern division heart with stable angina pectoris 09/04/2015 Radicular [...] 01/24/2015 Coronary artery stenosis 07/13/2014 Overview (05/14/2022): [place] Coronary Artery Stenosis Benign essential hypertension 07/13/2014 [...] Date Altered mental status 12/26/20222022 Aspiration pneumonitis ([facility]) 12/26/2022 12/31/2022 Pacemaker lead malfunction 12/26/2022 0 12/31/2022 Encounters Date Type Department Care Team Description 03/07/2025 Telephone [facility] [address] [place] [address] NameMemo MD ER Follow-up 02/28/2025 Orders Only GENERIC EXTERNAL DATA DEPARTMENT Provider, Generic External Data 02/14/2025 Refill [facility] [address] [place] [address] Memo Alex MD Chronic pain syndrome 02/10/2025 Refill [facility] [address] [place] [address] Liliya Manrique MD 02/09/2025 Refill [facility] [address] [place] [address] Memo Alex MD Chronic pain syndrome 02/04/2025 Telephone [facility] [address] [place] [address] Memo Alex MD Call Back Request; Results 01/28/2025 9:30 AM EDT Telemedicine [address] [address] 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, VON Long-term current use of opiate analgesic 01/28/2025 Refill [facility] [address] [place] [address] 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 RN Long-term current use of opiate analgesic (Primary Dx) 01/28/2025 Travel 01/26/2025 11:15 AM EDT Telemedicine [address] [address] Memo Alex MD Bilateral arm weakness (Primary Dx); Tremor of both hands 01/26/2025 Travel 01/25/2025 Telephone [facility] [address] [place] [address] Nick Long MA CHARTPREP 01/17/2025 Refill [facility] [address] [place] [address] Memo Alex MD Chronic pain syndrome 01/17/2025 Refill [facility] [address] [place] [address] Memo Alex MD Chronic pain syndrome 01/14/2025 Telephone [facility] [address] [place] [address] Allison Powers MA march recalls 12/20/2024 Refill [facility] [address] [place] [address] Memo Alex MD Chronic pain syndrome from [...] 10:00 AM EDT Office Visit [facility] [address] [place] [address] Name, MD Memo [address] [facility] [place] [address] 04/08/2025 9:00 AM EDT Telemedicine [facility] [address] [place] [address] 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, RN Health Maintenance Due Date [...] Cancer Screening 09/03/2027 Lipid Panel 01/01/2029 01/02/2024, 0206/2023, 01/17/2022, Additional history exists DTaP/Tdap/Td Vaccines (4 [...] PM EDT Narrative 02/28/2025 8:02 PM EDT [place] [address] CT Scan Report Signed Patient: Myles Tipton MR#: [id number] 5 : 1955 Acct:[id number] Age/Sex: 69 / M ADM Date: 02/28/25 Loc: HO.ED Attending Dr: Ordering Physician: Arsh Savage Date of Service: 02/28/25 Procedure(s): CT abdomen pelvis w IV con Accession Number(s): [id number] cc: Name,Memo ARREDONDO; Arsh Savage Report Number: [id number]: Total DLP = 672.00 mGy-cm Reason for [...] in OV> 02/28/252000 DD/ 99 TD/TT: 02/28/251999 Director Staffing: Procedure Note Donotuseinterpreter, Image - 02/28/[address] [address] [address] Scan Report Signed Patient: Myles TiptonMR#: [id number] 5 : 3Acct:[id number] Age/Sex: 69 / MADM Date: 02/28/25 Loc: HO.ED Attending Dr: Ordering Physician: Arsh Savgae Date of Service: 02/28/25 Procedure(s): CT abdomen pelvis w IV con Accession Number(s): [id number] cc: Name,Memo ARREDONDO; Arsh Savage Report Number: [id number]: Total DLP = 672.00 mGy-cm Reason for [...] in OV> 02/28/252000 DD/ 99 TD/TT: 02/28/251999 Director Staffing: [facility] External Provider IMG CT PROCEDURES Edited Result - Final * (ABNORMAL) Urinalysis w/reflex microscopic (02/28/2025 7:37 PM EDT) Color Urine Yellow [facility] Appearance Urine Clear [facility] PH 7.0 5.0 - 9.0 [facility] Glucose Urine UA Negative Negative mg/dL [facility] Urine Blood Negative Negative [facility] Specific [place] - Urine >=1.030(H) 1.005 - 1.025 [facility] Urine Protein Negative Neg-Trace mg/dL [facility] Urine Ketones Negative Negative mg/dL [facility] Nitrite Urine Negative Negative [facility] Leukocyte Esterase Urine Negative Negative [facility] 02/28/2025 7:37 PM EDT 02/28/2025 7:42 PM EDT Narrative [facility] - 02/28/2025 7:46 PM EDT Urine, Clean Catch us Generic External Data Provider LAB URINE ORDERAB LES Final Result [facility] [address] [place] [address] [phone] * (ABNORMAL) CBC auto differential (02/28/2025 3:16 PM EDT) White Blood Count 10.3 4.8 - 10.8 X10*3/uL [facility] Red Blood Count 4.32(L) 4.60 - 5.80 X10*6/uL [facility] Hemoglobin 13.4(L) 14.0 - 18.0 g/dl [facility] Hematocrit 39.6(L) 42.0 - 52.0 % [facility] Mean Corpuscular Volume 91.7 80.0 - 98.0 fL [facility] Mean Corpuscular Hemoglobin 31.0 27.0 - 33.0 pg [facility] Mean Corpuscular HGB Conc 33.8 31.0 - 36.0 g/dl [facility] Red Cell Distribution Width 12.6 11.0 - 16.0 % [facility] Platelet Count 270 160 - 400 X10*3/uL [facility] Mean Platelet Volume 8.4(L) 9.4 - 12.4 fL [facility] Neutrophils Percent Auto 65.2 45 - 73 % [facility] Imm Gran Pct Auto 0.3 0.0 - 0.4 % [facility] Lymphocytes Percent Auto 22.3 20 - 40 % [facility] Monocytes Percent Auto 9.0 2 - 11 % [facility] Eosinophils Percent Auto 2.5 0 - 4 % [facility] Basophils Percent Auto 0.7 0 - 2 % [facility] NRBC Pct Auto 0.0 0.0 - 0.2 /100WBC [facility] Neutrophils Absolute Auto 6.7 2.0 - 8.3 x10*3/uL [facility] Imm Gran Abs Auto 0.03 0.00 - 0.03 X10*3/uL [facility] Lymphocytes Absolute Auto 2.3 1.2 - 4.9 X10*3/uL [facility] Monocytes Absolute Auto 0.9 0.1 - 1.2 X10*3/uL [facility] Eosinophils Absolute Auto 0.3 0.0 - 0.4 X10*3/uL [facility] Basophils Absolute Auto 0.1 0.0 - 0.2 X10*3/uL [facility] NRBC Abs Auto 0.000 0.0 - 0.012 X10*3/uL [facility] 02/28/2025 3:16 PM EDT 02/28/2025 3:18 PM EDT us Generic External Data Provider LAB BLOOD ORDERAB LES Final Result [facility] [address] [place] [phone] * Magnesium (02/28/2025 3:15 PM EDT) Magnesium 2.2 1.6 - 2.6 mg/dL [facility] 02/28/2025 3:15 PM EDT 02/28/2025 3:18 PM EDT us Generic External Data Provider LAB BLOOD ORDERAB LES Final Result Performing Organization Address City/[facility]/ZIP Co de Phone Number [facility] [address] [place] [phone] * Lipase (02/28/2025 3:15 PM EDT) Lipase 13 8 - 78 U/L [facility] 02/28/2025 3:15 PM EDT 02/28/2025 3:18 PM EDT us Generic External Data Provider LAB BLOOD ORDERAB LES Final Result Performing Organization Address [facility] Co de Phone Number [facility] [address] [place] [phone] * Hepatic Function Panel (02/28/2025 3:15 PM EDT) Bilirubin, Total 0.3 0.0 - 1.0 mg/dL [facility] Bilirubin, Direct 0.1 0.0 - 0.5 mg/dL [facility] Aspartate Amino Transferase 22 5 - 37 U/L [facility] Alanine Aminotransferase 11 0 - 40 U/L [facility] Total Protein 6.8 6.5 - 8.0 g/dL [facility] Albumin Level 4.1 3.5 - 5.0 g/dL [facility] Alkaline Phosphatase 89 39 - 117 U/L [facility] 02/28/2025 3:15 PM EDT 02/28/2025 3:18 PM EDT us Generic External Data Provider LAB BLOOD ORDERAB LES Final Result Performing Organization Address City/[facility]/ZIP Co de Phone Number [facility] [address] [place] [phone] [phone] * (ABNORMAL) Basic Metabolic Panel (02/28/2025 3:15 PM EDT) Sodium 142 135 - 145 mmol/L [facility] Potassium 3.9 3.3 - 5.1 mmol/L [facility] Chloride 105 96 - 108 mmol/L [facility] Carbon Dioxide 30(H) 22 - 29 mmol/L [facility] Anion Gap 11(L) 12 - 20 [facility] Urea Nitrogen (BUN) 18(H) 9 - 16 mg/dL [facility] Creatinine, Serum 0.69 0.5 - 1.4 mg/dL [facility] Creatinine Clr Calc Pharmacy 104.5 [facility] Comment:eGFR (calculated fro m the MDRD study equation) and eCrCl(calculated from the Cockcroft-Gault equation) are based ondifferent parameters and may not yield comparable results.If eCrCl result is absurd, please check patient'sheight/weight. Estimated Glomerular Filt Rate >60 [facility] Comment:Chronic Kidney Disea se: Estimated GFR < 60 mL/min/1.77u9Ibbwee Kidney Disease: Estimated GFR < 15 mL/min/1.73m2 Glucose 99 60 - 115 mg/dL [facility] Calcium 9.0 8.4 - 10.2 mg/dL [facility] 02/28/2025 3:15 PM EDT 02/28/2025 3:18 PM EDT us Generic External Data Provider LAB BLOOD ORDERAB LES Final Result [facility] [address] [place] [phone] * XR CERVICAL SPINE 4V (01/27/2025 11:22 AM EDT) Anatomical Region Laterality Modality Abdomen Radiographic Nilda ging 01/27/2025 11:2 2 AM EDT Narrative 01/27/2025 11:38 AM EDT [place] [address] XRay Report Signed Patient: Myles Tipton MR#: [id number] 5 : 1955 Acct:[id number] Age/Sex: 69 / M ADM Date: 01/27/25 Loc: HO.XRAY Attending Dr: Memo Alex MD Ordering Physician: Memo Alex MD Date of Service: 01/27/25 Procedure(s): XR cervical spine 4V Accession Number(s): [id number] cc: Memo Alex MD EXAMINATION: XR CERVICAL [...] 4V IMPRESSION: Multilevel cervical spondylosis with a [place] deformity apex at C5-6. Electronically signed by: Bc Vasquez MD 01/27/2025 11:35 AM EDT Dictated By: Bc Gutiérrez MD Signed By: <Electronically signed by Bc Nicholas MD in OV> 01/27/25 1135 DD/ 1122 TD/TT: 01/27/25 1130 Director Staffing: Procedure Note Donotuseinterpreter, Image - 01/27/[address] [address] XRay Report Signed Patient: Myles TiptonMR#: [id number] 5 : 1955cct:[id number] Age/Sex: 69 / MADM Date: 01/27/25 Loc: HO.XRAY Attending Dr: Memo Alex MD Ordering Physician: Memo Alex MD Date of Service: 01/27/25 Procedure(s): XR cervical spine 4V Accession Number(s): [id number] cc: Memo Alex MD EXAMINATION: XR CERVICAL [...] 4V IMPRESSION: Multilevel cervical spondylosis with a [place] deformity apex at C5-6. Electronically signed by: Bc Vasquez MD 01/27/2025 11:35 AM EDT RP Dictated By: Bc Gutiérrez MD Signed By: <Electronically signed by Bc Nicholas MDin OV> 01/27/25 1135 DD/ 1122 TD/TT: 01/27/25 1130 Director Staffing: us Memo Alex MD IMG XR PROCEDURES Final Result * Hm Colonoscopy (09/02/2024 6:46 PM EDT) Colonoscopy Normal Normal Narrative Aleta Wang - 09/02/2024 6:46 PM EDT Recommended repeat colonoscopy in 3 years see external hospital admission note on 09/02/2024 Historical Provider [facility] MAINTENANCE Edited Result - Final * Lipid Panel, Standard (01/02/2024 6:36 AM EDT) Triglycerides 112 <150 mg/dL [facility] Comment:Desirable Triglyceri de: less than 150 mg/dLBorderline High Triglyceride 150-199 mg/dLHigh Triglyceride: 200-499 mg/dLVery High Triglyceride: greater than or equal to 5OO mg/dL Cholesterol 154 <200 mg/dL [facility] Comment:Desirable Cholestero l: less than 200 mg/dLBorderline High Cholesterol: 200-239 mg/dLHigh Cholesterol: greater than 239 mg/dL LDL Cholesterol Calculated 83 <100 mg/dL [facility] Comment:Desirable LDL: less than 100 mg/dLNear Optimal/Above Optimal LDL: 110- 129 mg/dLBorderline High LDL: 130-159 mg/dLHigh LDL: 160-189 mg/dLVery High LDL: greater than or equal to 190 mg/dL HDL Cholesterol 49 >40 mg/dL [facility] Comment:Desirable HDL: grea ter than 40 mg/dL Note: This HDL assay may give artificially low results in patients with liver disease. 01/02/2024 6:36 AM EDT 01/02/2024 6:36 AM EDT us Generic External Data Provider LAB BLOOD ORDERAB LES Final Result [facility] [address] [place] [phone] * Hepatitis Panel, General (09/01/2023 11:55 AM EDT) Hepatitis A IgM Nonreactive Nonreactive [facility] Comment:IgM antibodies to LANDEROS V not detected; does not exclude earlyacute or recovered HAV infection. ~Hepatitis B Surface Antibody REACTIVE Nonreactive [facility] Comment:REACTIVE: > 11.99 mI U/mL Hepatitis B Core Antibody Nonreactive Nonreactive [facility] Hepatitis C Antibody Nonreactive Nonreactive [facility] Comment:Antibodies to HCV no t detected; does not exclude early acuteHCV infection. Hepatitis B Surface Ag Negative Negative [facility] Blood 09/01/2023 11:5 5 AM EDT 09/01/2023 1:48 PM EDT Sonia Ladd BOOSTER PUMP OPERATOR LAB BLOOD ORDERABLES Final Res ult [facility] [address] [place], [place] [phone] from Last 3 Months or Most Recently Relevant to Health Maintenance Insurance [facility] STANDARD MEDICARE Care Teams Audit Mgr Relationship Specialty Start Date End Date Name, MD Memo [address] [place] [address] PCP - General Family Medicine 08/30/15
--- OUTSIDE RECORDS SUMMARY | 2025-03-11 07:54 | XMS_ITS | Encounter Summary ---
Author Organization [employer] Address [address] [place] [address] 7 [place] [address] Care Team Providers Care Curbstone Setter Name Role Phone Name, Memo ARREDONDO Primary Care Provider [phone] Reason for Visit * Reason Onset Date Comments Nurse Triage 11/17/2024 Encounter Details Date Type Department Care Team ([facility] st Contact Info) Description 11/17/2024 Telephone [facility] [address] [place], [place] [phone] Name, MD Memo [address] [place] [address] Nurse Triage Social History Tobacco Use Types [...] side of head. Pt is advised to [facility], Pt reports is at work till 630pm and will go to [facility] as soon as Pt leaves [...] life now The caller accepted this outcome. [phone] documented in this encounter Plan of Treatment Upcoming Encounters Date Type Department Care Team (Late st Contact Info) Description 04/05/2025 10:00 AM EDT Office Visit [facility] MED[facility]INE [address] [place] [phone] NameMemo MD [address] [place] [address] 04/08/2025 9:00 AM EDT Telemedicine [address] [address] 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, VON documented as of this encounter Visit Diagnoses Not on filedocumented in this encounter Additional Health Concerns Assessment Noted Time PHQ-9 Depression Total Score: 0 07/17/19 24 10:49 AM EST documented as of this encounter Care Teams Curbstone Setter Relationship Specialty Start Date End Date NameMemo MD [address] [place] [address] PCP - General Family Medicine 08/30/15 documented as of this encounter
--- OUTSIDE RECORDS SUMMARY | 2025-03-11 07:54 | XMS_ITS | Encounter Summary ---
Author Organization [employer] Address [address] [place] [address] 7 [place] [address] Care Team Providers Care Plater Hot Dip Name Role Phone Name, Memo ARREDONDO Primary Care Provider [phone] Reason for Visit * Reason Comments Med Refill Encounter Details Date Type Department Care Team ([facility] st Contact Info) Description 10/25/2022 Refill [facility] [address] [place], [place] [phone] Name, MD Memo [address] [place] [address] Chronic pain syndrome Social History Tobacco Use [...] Description 04/05/2025 10:00 AM EDT Office Visit [facility] [address] [place] [phone] Name, MD Memo [address] [place] [phone] 04/08/2025 9:00 AM EDT Telemedicine [address] [address] 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 RN documented as of this encounter Visit Diagnoses Diagnosis Chronic pain syndrome documented in this encounter Additional Health Concerns Assessment Noted Time PHQ-9 Depression Total Score: 9 06/27/19 23 10:17 AM EST documented as of this encounter Care Teams Plater Hot Dip Relationship Specialty Start Date End Date Name, MD Memo [address] [place] [phone] PCP - General Family Medicine 08/30/15 documented as of this encounter
--- OUTSIDE RECORDS SUMMARY | 2025-03-11 07:54 | XMS_ITS | Encounter Summary ---
Author Organization [employer] Address [address] [facility] 7t [place] [address] Care Team Providers Care Measurement Technician Name Role Phone Name, Memo ARREDONDO Primary Care Provider [phone] Encounter Details Date Type Department Care Team ([facility] st Contact Info) Description 10/24/2024 Orders Only [facility] [address] [place], [place] [phone] ProviderFerdinand MD Social History Tobacco Use Types [...] Description 04/05/2025 10:00 AM EDT Office Visit [facility] [address] [place] [address] Name, MD Memo [address] [place] [address] 04/08/2025 9:00 AM EDT Telemedicine [address] [phone] 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, VON documented as of this [...] documented as of this encounter Care Teams Measurement Technician Relationship Specialty Start Date End Date Name, MD Memo [address] [place] [address] PCP - General Family Medicine 08/30/15 documented as of this encounter
--- OUTSIDE RECORDS SUMMARY | 2025-03-11 07:54 | XMS_ITS | Encounter Summary ---
Author Organization [employer] Address [address] [place] [address] 7 [place] [address] Care Team Providers Care Billet Driller Name Role Phone Name, Memo ARREDONDO Primary Care Provider [phone] Encounter Details Date Type Department Care Team (Late Contact Info) Description [facility] [address] [place], [place] [phone] Name, MD Memo [address] [place], [place] [phone] Social History Tobacco Use Types Packs/Day Years [...] Description 04/05/2025 10:00 AM EDT Office Visit [facility] [address] [place], [place] [phone] Name, [place] [address] 04/08/2025 9:00 AM EDT Telemedicine [facility] [address] [place] [phone] 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, RN documented as of this encounter Visit Diagnoses Not on filedocumented in this encounter Additional Health Concerns Assessment Noted Time PHQ-9 Depression Total Score: 9 06/27/19 23 10:17 AM EST documented as of this encounter Care Teams Billet Driller Relationship Specialty Start Date End Date Name, MD Memo [address] [place] [address] PCP - General Family Medicine 08/30/15 documented as of this encounter
--- OUTSIDE RECORDS SUMMARY | 2025-03-11 07:54 | XMS_ITS | Encounter Summary ---
Author Organization [employer] Address [address] [place] [address] 7 [place] [address] Care Team Providers Care Business Development Name Role Phone Name, Memo ARREDONDO Primary Care Provider [phone] Reason for Visit * Reason Onset Date Comments Error 03/25/2024 Encounter Details Date Type Department Care Team ([facility] Contact Info) Description 03/25/2024 Telephone [facility] [address] [place], [place] [phone] Name, MD Memo [address] [place] [address] Error Social History Tobacco Use Types Packs/Day [...] Description 04/05/2025 10:00 AM EDT Office Visit [facility] [address] [place] [address] Name, MD Memo [address] [place] [address] 04/08/2025 9:00 AM EDT Telemedicine [facility] [address] [place] [address] 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 RN documented as of this encounter Visit Diagnoses Not on filedocumented in this encounter Additional Health Concerns Assessment Noted Time PHQ-9 Depression Total Score: 0 07/17/19 24 10:49 AM EST documented as of this encounter Care Teams Business Development Relationship Specialty Start Date End Date NameMemo MD [address] [place] [phone] PCP - General Family Medicine 08/30/15 documented as of this encounter
[2025-03-11 08:03] VITALS: BP 168/94; PULSE 61; RESP 16; BMI 27.9
== END 2025-03-11 08:42 | disposition home or self-care (01) ==
LOC: HO.HSM 07:52
PROVIDERS: PCP Internal Medicine Geriatric Medicine; Visit Provider Nurse Practitioner
DX: G25.2 Other specified forms of tremor (principal)
CPT/HCPCS: 99204

== ENCOUNTER → 2025-03-11 07:51 | Outpatient (BNVA) | payer MEDICARE, MEDICAID, SELFPAY | PROVIDERS: PCP Internal Medicine Geriatric Medicine; Visit Provider Nurse Practitioner | DX: G25.2 Other specified forms of tremor (principal); Z86.73 Personal history of transient ischemic attack (TIA), and cerebral infarction without residual deficits | CPT/HCPCS: 99202 ==

== ENCOUNTER 2025-04-06 08:30 | Outpatient (REF) | payer MEDICARE, MEDICAID, SELFPAY ==
--- OUTSIDE RECORDS SUMMARY | 2025-04-05 10:00 | XMS_ITS | Encounter Summary ---
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); Tremor of both hands Social History Tobacco Use Types Packs/Day Years [...] Sign Reading Time Taken Comments Blood Pressure 151/89 04/05/2025 10:26 AM EDT Pulse 71 04/05/2025 10:00 AM EDT Temperature 36.3 C (97.3 F) 04/05/2025 10:00 AM EDT Respiratory Rate 12 04/05/2025 10:00 AM EDT Oxygen Saturation 97% 04/05/2025 10:00 AM EDT Inhaled Oxygen Concentration - - Weight 90.4 kg (199 lb 6.4 oz) 04/05/2025 10:00 AM EDT Height 180.3 cm (5' 11 ) 04/05/2025 10:00 AM EDT Body Mass Index 27.81 04/05/2025 10:00 AM EDT documented in this encounter Functional Status * Over the last 2 weeks, how often have you been bothered by any of the following problems? Question Answer Date of Assessment Author Feeling nervous, anxious, or on edge 0 04/05/2025 10:01 AM EDT Brittney Powers MA Not being able to stop or control worrying 0 04/05/2025 10:01 AM ILNT Brittney Powers MA Worrying too much about different things 2 04/05/2025 10:01 AM EDBrittney Gagnon MA Trouble relaxing 2 04/05/2025 10:01 AM LINT Allison Powers MA Being so restless that it is hard to sit still 0 04/05/2025 10:01 AM EDT Brittney Powers MA Becoming easily annoyed or irritable 0 04/05/2025 10:01 AM LINT Brittney Powers MA Feeling afraid as if something awful might happen 0 04/05/2025 10:01 AM EDT Allison Weinberg MA JEANIE-7 Total Score 4 04/05/2025 10:01 AM Allison Meza MA documented as of this encounter Progress Notes * Memo Alex MD - 04/05/2025 10:00 AM EDT Subjective Patient ID: Myles Tipton is a 69 y.o. male who presents for Follow-up. Patient comes for a follow-up visit. He denies any chest pains or shortness of breath. Denies any palpitations. No recent syncope or seizures. He continues to be bothered by hand tremors that are occasionally severe. On previous visit I referred him to movement disorder clinic at [facility] but he decided to keep his neurology follow-up at [facility]. He is now awaiting evaluation with MRI of the brain recommended at [facility] neurology. MRI of the brain has been delayed because he has a pacemaker and MRIdepartment has requested that a aviation safety equipment technician from the pacemaker company be present at the test. He continues smoking cigarettes. He is strongly encouraged to quit. BP is elevated today but he did not use any of his medications. 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 He suffers with chronic severe back pain that is well-controlled on current dose of oxycodone. NSAIDs are contraindicated since he is anticoagulated. He is up-to-date with flu and COVID vaccines. Review of Systems Constitutional: Negative for chills, fatigue and fever. HENT: Negative for sore throat. Respiratory: Negative for cough, chest tightness and shortness of breath. Cardiovascular: Negative for chest pain, palpitations and leg swelling. Gastrointestinal: Negative for abdominal pain and blood in stool. Musculoskeletal: Positive for back pain and neck pain. Neurological: Positive for tremors. Objective Vitals: 04/05/25 1000 04/05/25 1026 BP: (!) 172/88 (!) 151/89 BP Location: Left arm Patient Position: Sitting BP Cuff Size: Adult Pulse: 71 Resp: 12 Temp: 97.3 ??F (36.3 ??C) TempSrc: Temporal SpO2: 97% Weight: 199 lb 6.4 oz (90.4 kg) Height: 5' 11 (1.803 m) Physical Exam Constitutional: Appearance: Normal appearance. Cardiovascular: Rate and Rhythm: Normal rate. Rhythm irregular. Heart sounds: No murmur heard. Pulmonary: Effort: Pulmonary effort is normal. No respiratory distress. Breath sounds: No wheezing, rhonchi or rales. Abdominal: Palpations: Abdomen is soft. Tenderness: There is no abdominal tenderness. Musculoskeletal: Right lower leg: No edema. Left lower leg: No edema. Neurological: General: No focal deficit present. Mental Status: He is alert and oriented to person, place, and time. Motor: No weakness. 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 Comments: He is recommended to quit smoking and use his meds as prescribed Orders: - Lipid Panel, Standard; Future Tremor of both hands Comments: Patient is undergoing work up as recommended by [facility] neurology Future Appointments Date Time Provider Department Center 04/08/2025 9:00 AM 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 RN MEDICINE [facility] documented in this encounter Plan of Treatment Upcoming Encounters Date Type Department Care Team (Late st Contact Info) Description 04/08/2025 9:00 AM EDT Telemedicine [facility]INE [address] [place] [address] 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 RN Scheduled Orders Name Type Priority Associated Diagnoses Orde r Schedule Lipid Panel, Standard Lab Routine 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
--- OUTSIDE RECORDS SUMMARY | 2025-04-06 09:03 | XMS_ITS | Encounter Summary ---
Author Organization [employer] Address [address] [place] [address] 7 [place] [address] Care Team Providers Care Phlebotomist Name Role Phone Name, Memo ARREDONDO Primary Care Provider [phone] Reason for Visit * Reason Comments Med Refill Encounter Details Date Type Department Care Team ([facility] st Contact Info) Description 02/03/2024 Refill [facility] MED[facility]INE [address] [place], [place] [phone] Name, MD Memo [address] [place] [address] Chronic pain syndrome Social History Tobacco Use [...] Info) Description 04/08/2025 9:00 AM EDT Telemedicine [facility] MED[facility]INE [address] [place] [address] 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 RN documented as of this encounter Visit Diagnoses Diagnosis Chronic pain syndrome documented in this encounter Additional Health Concerns Assessment Noted Time PHQ-9 Depression Total Score: 0 07/17/19 24 10:49 AM EST documented as of this encounter Care Teams Phlebotomist Relationship Specialty Start Date End Date Name, MD Memo [address] [place] [address] PCP - General Family Medicine 08/30/15 documented as of this encounter
--- OUTSIDE RECORDS SUMMARY | 2025-04-06 09:03 | XMS_ITS | Encounter Summary ---
Author Organization [employer] Address [address] [place] [address] 7 [place] [address] Care Team Providers Care Needle Punch Operator Name Role Phone Name, Memo ARREDONDO Primary Care Provider Encounter Details Date Type Department Care Team (Latest Contact Info) Description 07/09/[address] [facility] CONVERSION[facility] Dental, Provider, DDS Social History [...] Upcoming Encounters Date Type Department Care Team ( st Contact Info) Description 04/08/2025 9:[address] [facility] MEDICINE [address] [place] [address] 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, RN documented as of this encounter Visit Diagnoses Not on filedocumented in this encounter Care Teams Needle Punch Operator Relationship Specialty Start Date End Date Name, MD Memo [address] [place] [address] PCP - General Family Medicine 08/30/15 documented as of this encounter
--- OUTSIDE RECORDS SUMMARY | 2025-04-06 09:03 | XMS_ITS | Encounter Summary ---
Author Organization [employer] Address [address] [facility] 7t [place] [address] Care Team Providers Care Chairman And Ceo Name Role Phone Name, Memo ARREDONDO Primary Care Provider [phone] Reason for Visit * Reason Onset Date Comments triage 06/06/2022 Encounter Details Date Type Department Care Team ([facility] st Contact Info) Description 06/06/2022 Telephone [facility] [address] [place] [address] Name, MD Memo [address] [place] [address] triage Social History Tobacco Use Types Packs/Day [...] visit with PRIYANKA Schwab at 1115am . [facility] unable to schedule a tele visit [...] Info) Description 04/08/2025 9:00 AM EDT Telemedicine [facility] [address] [place] [address] 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 RN documented as of this encounter Visit Diagnoses Not on filedocumented in this encounter Care Teams Chairman And Ceo Relationship Specialty Start Date End Date Name, MD Memo [address] [place] [address] PCP - General Family Medicine 08/30/15 documented as of this encounter
--- OUTSIDE RECORDS SUMMARY | 2025-04-06 09:03 | XMS_ITS | Encounter Summary ---
Author Organization [employer] Address [address] [facility] 7t [place] [address] Care Team Providers Care Mechanical Equipment Sales Engineer Name Role Phone Name, Memo ARREDONDO Primary Care Provider Reason for Visit * Reason Onset Date Comments triage 06/05/2022 Encounter Details Date Type Department Care Team ([facility] st Contact Info) Description 06/05/2022 Telephone [facility] MEDICINE [address] [place] [address] Name, MD Memo [address] [place] [address] triage Social History Tobacco Use Types Packs/Day [...] Info) Description 04/08/2025 9:00 AM EDT Telemedicine [facility]INE [address] [place] [address] 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, VON documented as of this encounter Visit Diagnoses Not on filedocumented in this encounter Care Teams Mechanical Equipment Sales Engineer Relationship Specialty Start Date End Date Name, MD Memo [address] [place] [address] PCP - General Family Medicine 08/30/15 documented as of this encounter
--- OUTSIDE RECORDS SUMMARY | 2025-04-06 09:03 | XMS_ITS | Encounter Summary ---
Author Organization [employer] Address [address] [place] [address] 7 [place] [address] Care Team Providers Care Casting Machine Set Up Operator Name Role Phone Name, Memo ARREDONDO Primary Care Provider [phone] Reason for Visit * Reason Onset Date Comments Nurse Triage 09/03/2023 Encounter Details Date Type Department Care Team ([facility] st Contact Info) Description 09/03/2023 Telephone [facility] MEDICINE [address] [place], [place] [phone] Name, MD Memo [address] [place] [address] Nurse Triage Social History Tobacco Use Types [...] EDT Triage call Pt was seen in [facility] Ed 09/02/23 , report is [...] if feels that symptoms continue to worsen. Quality Control Representative will forward this triage to PCP and nursing team. Pt agreeswith disposition and home care advised. Insurance is verified as active. Protocol Used: Abdominal Pain - Male (Adult) Protocol-Based Disposition: Go to ED[facility] Now (or to Office with PCP Approval) [...] accepted this outcome Pt inform went to [facility] ER on 09/02/23 but is still having rn call center pain documented in this encounter Plan of Treatment Upcoming Encounters Date Type Department Care Team (Late st Contact Info) Description 04/08/2025 9:00 AM EDT Telemedicine [facility] MEDICINE [address] [place] [address] 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, VON documented as of this encounter Visit Diagnoses Not on filedocumented in this encounter Additional Health Concerns Assessment Noted Time PHQ-9 Depression Total Score: 0 07/17/19 24 10:49 AM EST documented as of this encounter Care Teams Casting Machine Set Up Operator Relationship Specialty Start Date End Date Name, MD Memo [address] [place] [address] PCP - General Family Medicine 08/30/15 documented as of this encounter
--- OUTSIDE RECORDS SUMMARY | 2025-04-06 09:03 | XMS_ITS | Encounter Summary ---
Author Organization [employer] Address [address] [place] [address] 7t [place] [address] Care Team Providers Care Prefabricator Name Role Phone Name, Memo ARREDONDO Primary Care Provider [phone] Reason for Visit * Reason Comments Med Refill Encounter Details Date Type Department Care Team ([facility] st Contact Info) Description 04/30/2023 Refill [facility] MEDICINE [address] [place], [place] [phone] [facility] [address] [place], [place] [phone] Coronary artery disease involving minto heart without angina pectoris, unspecified vessel or [...] Info) Description 04/08/2025 9:00 AM EDT Telemedicine [facility] MEDICINE [address] [place] [address] Shahla Wseton RN documented as of this encounter Visit Diagnoses Diagnosis Coronary artery disease involving minto heart without angina pectoris, unspecified vessel or lesion type documented in this encounter Additional Health Concerns Assessment Noted Time PHQ-9 Depression Total Score: 9 06/27/19 23 10:17 AM EST documented as of this encounter Care Teams Prefabricator Relationship Specialty Start Date End Date Name, MD Memo [address] [place] [address] PCP - General Family Medicine 08/30/15 documented as of this encounter
--- OUTSIDE RECORDS SUMMARY | 2025-04-06 09:03 | XMS_ITS | Encounter Summary ---
Author Organization [employer] Address [address] [place] [address] 7 [place] [address] Care Team Providers Care Tombstone Polisher Name Role Phone Name, Memo ARREDONDO Primary Care Provider [phone] Reason for Visit * Reason Onset Date Comments ER Follow-up 09/16/2024 Encounter Details Date Type Department Care Team ([facility] st Contact Info) Description 09/16/[address] [facility] MEDICINE [address] [place], [place] [phone] Name, MD Memo [address] [place] [address] ER Follow-up Social History Tobacco Use Types [...] 09/16/2024 10:30 AM EDT Pt evaluated in [facility] ED 09/15/24 Dx: Syncope, concussion. Pt left [...] ED visit on : Date: 09/15/24 Hospital: [facility] Seen for: Concussion Symptomatic No *if yes message should go to Triage Patient advised will forward to team nurse for follow up Contact pt at [phone] documented in this encounter Plan of Treatment Upcoming Encounters Date Type Department Care Team (Late st Contact Info) Description 04/08/2025 9:00 AM EDT Telemedicine [facility] MEDICINE [address] [place] [address] 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, RN documented as of this encounter Visit Diagnoses Not on filedocumented in this encounter Additional Health Concerns Assessment Noted Time PHQ-9 Depression Total Score: 0 07/17/19 24 10:49 AM EST documented as of this encounter Care Teams Tombstone Polisher Relationship Specialty Start Date End Date Name, MD Memo [address] [place] [address] PCP - General Family Medicine 08/30/15 documented as of this encounter
--- OUTSIDE RECORDS SUMMARY | 2025-04-06 09:03 | XMS_ITS | Encounter Summary ---
Author Organization [employer] Address [address] [place] [address] 7 [place] [address] Care Team Providers Care Plastic Extruding Machine Operator Name Role Phone Name, Memo ARREDONDO Primary Care Provider [phone] Reason for Visit * Reason Onset Date Comments returning call back 05/14/2022 Encounter Details Date Type Department Care Team ([facility] st Contact Info) Description 05/14/2022 Telephone [facility] MEDICINE [address] [place] [address] Name, MD Memo [address] [place] [address] returning call back Social History Tobacco Use [...] be called back. Please contact pt at [phone] documented in this encounter Plan of Treatment Upcoming Encounters Date Type Department Care Team (Late st Contact Info) Description 04/08/2025 9:00 AM EDT Telemedicine [facility] MEDICINE [address] [place] [address] 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 RN documented as of this encounter Visit Diagnoses Not on filedocumented in this encounter Care Teams Plastic Extruding Machine Operator Relationship Specialty Start Date End Date Name, MD Memo [address] [place] [address] PCP - General Family Medicine 08/30/15 documented as of this encounter
--- OUTSIDE RECORDS SUMMARY | 2025-04-06 09:03 | XMS_ITS | Encounter Summary ---
Author Organization [facility] Address [address] [place] [address] [place] [address] Phone Care Team Providers Care Professor Of Spanish Name Role Phone Name, Memo ARREDONDO Primary Care Provider [phone] Encounter Details Date Type Department Care Team (Late st Contact Info) Description 01/19/2018 Procedure [facility] [address] [place] [address] Social History Tobacco Use Types Packs/Day Years [...] on filedocumented in this encounter Care Teams Professor Of Spanish Relationship Specialty Start Date End Date Name, MD Memo [address] [place] [address] PCP - General Geriatric Psychiatry 12/29/17 documented as of this encounter Additional Source Comments The information contained in this document represents components of the legal health record. It is not the complete legal health record.[facility]
--- OUTSIDE RECORDS SUMMARY | 2025-04-06 09:03 | XMS_ITS | Encounter Summary ---
Author Organization [employer] Address [address] [place] [address] 7 [place] [address] Care Team Providers Care Sweater Designer Name Role Phone Name, Memo ARREDONDO Primary Care Provider [phone] Encounter Details Date Type Department Care Team ([facility] Contact Info) Description 06/06/2022 Telephone [facility] MEDICINE [address] [place] [address] Name, MD Memo [address] [place] [address] Social History Tobacco Use Types Packs/Day Years [...] Department Care Team (Late Contact Info) Description 04/08/2025 9:00 AM EDT Telemedicine [facility] MEDICINE [address] [place] [address] 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 RN documented as of this encounter Visit Diagnoses Not on filedocumented in this encounter Care Teams Sweater Designer Relationship Specialty Start Date End Date Name, MD Memo [address] [place] [address] PCP - General Family Medicine 08/30/15 documented as of this encounter
--- OUTSIDE RECORDS SUMMARY | 2025-04-06 09:03 | XMS_ITS | Encounter Summary ---
Author Organization [employer] Address [address] [place] [address] 7 [place] [address] Care Team Providers Care Public Health Nutritionist Name Role Phone Name, Memo ARREDONDO Primary Care Provider [phone] Reason for Visit * Reason Comments Med Refill Encounter Details Date Type Department Care Team ([facility] st Contact Info) Description 02/09/2025 Refill [facility] MEDICINE [address] [place], [place] [phone] Name, MD Memo [address] [place] [address] Chronic pain syndrome Social History Tobacco Use [...] Info) Description 04/08/2025 9:00 AM EDT Telemedicine [facility] [address] [place] [address] 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 RN documented as of this encounter Visit Diagnoses Diagnosis Chronic pain syndrome documented in this encounter Additional Health Concerns Assessment Noted Time PHQ-9 Depression Total Score: 0 07/17/19 24 10:49 AM EST documented as of this encounter Care Teams Public Health Nutritionist Relationship Specialty Start Date End Date Name, MD Memo [address] [place] [address] PCP - General Family Medicine 08/30/15 documented as of this encounter
--- OUTSIDE RECORDS SUMMARY | 2025-04-06 09:03 | XMS_ITS | Encounter Summary ---
Author Organization [facility] Address [address] [place] [address] [place] [address] Phone Care Team Providers Care Gasoline Dragline Operator Name Role Phone Name, Memo ARREDONDO Primary Care Provider [phone] Encounter Details Date Type Department Care Team (Late st Contact Info) Description 01/19/2018 Procedure [facility] [address] [place] [address] Social History Tobacco Use Types Packs/Day Years [...] on filedocumented in this encounter Care Teams Gasoline Dragline Operator Relationship Specialty Start Date End Date Name, MD Memo [address] [place] [address] PCP - General Geriatric Psychiatry 12/29/17 documented as of this encounter Additional Source Comments The information contained in this document represents components of the legal health record. It is not the complete legal health record.[facility]
--- OUTSIDE RECORDS SUMMARY | 2025-04-06 09:03 | XMS_ITS | Encounter Summary ---
Author Organization [employer] Address [address] [place] [address] 7t [place] [address] Care Team Providers Care Sales Agent Casualty Insurance Name Role Phone Name, Memo ARREDONDO Primary Care Provider [phone] Reason for Visit * Reason Onset Date Comments Med Refill 09/29/2024 Encounter Details Date Type Department Care Team ([facility] st Contact Info) Description 09/29/2024 Telephone [facility] [address] [place], [place] [phone] Name, MD Memo [address] [place] [address] Med Refill Social History Tobacco Use Types [...] immediate release tablet To be sent to: [facility] - [place], [place] - [address] [place] [address] *pt wanting an early fill because will be leaving [facility] in the afternoon to [place] documented in this encounter Plan of Treatment Upcoming Encounters Date Type Department Care Team ([facility] st Contact Info) Description 04/08/2025 9:00 AM EDT Telemedicine [facility] MEDICINE [address] [place] [address] 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 RN documented as of this encounter Visit Diagnoses Not on filedocumented in this encounter Additional Health Concerns Assessment Noted Time PHQ-9 Depression Total Score: 0 07/17/19 10:49 AM EST documented as of this encounter Care Teams Sales Agent Casualty Insurance Relationship Specialty Start Date End Date Name, MD Memo [address] [place] [address] PCP - General Family Medicine 08/30/15 documented as of this encounter
--- OUTSIDE RECORDS SUMMARY | 2025-04-06 09:04 | XMS_ITS | Patient Health Record ---
Author Organization [facility] Address [address] [place] [address] Care Team Providers Care Sub Master Name Role Phone Name Memo ARREDONDO Primary Care Provider Rolly Manzanares Unavailable [phone] Allergies Allergen (clinical drug ingredient) Drug/Non Drug Allergy documented on EMR Reaction Allergy Type Onset Date Status indomethacin Indocin Unknown Drug Allergy Acti ve enoxaparin Lovenox Unknown Drug Allergy Active tramadol Ultram Unknown Drug Allergy Active Bee Sting Unknown Allergy Active Reason For Referral No Information Medications Medication SIG (Take, Route, Frequency, Duration) Notes Start Date End Date Status amLODIPine Besylate 10 MG 1 tablet Orall y Once a day; Duration: 30 day(s) Active Rosuvastatin Calcium 40 MG 1 tablet Oral ly Once a day; Duration: 30 day(s) Active Aspirin 81 MG 1 tablet Orally Once a day; Duration: 30 day(s) Active Ranolazine ER 1000 MG 1 tablet Orally Tw ice a day; Duration: 30 day(s) Active eliquis 5 mg Active Divalproex Sodium 250 MG 1 tablet Orally Once a day; Duration: 30 day(s) Active Esomeprazole Magnesium Active Pantoprazole Sodium 40 MG 1 tablet Orall y Once a day; Duration: 30 day(s) Active oxyCODONE HCl 10 MG 1 tablet as needed Orally every 6 hrs Active Cephalexin 500 MG 1 capsule Orally Thr ee times a day; Duration: 10 days Active Nitroglycerin 0.4 MG Sublingual; Duration: 30 Active Compression Stockings 20-30mm Hg 1 pair wear daily; Duration: 30 days Active Lisinopril 10 MG 1 tablet Orally Once a day; Duration: 30 day(s) Active Ezetimibe 10 MG 1 tablet Orally Once a day; Duration: 30 day(s) Active Multivitamin - 1 tablet Orally Once a day; Duration: 30 day(s) Active Metoprolol Tartrate 50 MG 1 tablet with food Orally Twice a day; Duration: 30 day(s) Active Immunizations [...] atherosclerosis of arteries of lower limbs (disorder) ([id number] ) Atherosclerosis of chicken ranch artery of both lower extremities, with unspecified presence of clinical manifestation (I70.203) Active confirmed Vital Signs Blood pressure diastolic 70 mm Hg 03/11/2025 Height 5ft 11in in 03/11/2025 Blood pressure systolic 123 mm Hg 03/11/2025 Weight 200 lbs 03/11/2025 BMI 27.89 kg/m2 03/11/2025 Procedures Procedure Date Ordered Date Performed Result Body Sit e 26969-Mtuxidbq Plate 09/07/2024 N/A 27090-UODWKSQ NAIL, 6 OR MORE 03/11/2025 N/A 83496-ELFZ SKIN LESIONS, 2 TO 4 03/11/2025 N/A Encounters Encounter Location Date Provider Diagnosis [facility] [address] [address] 09/07/2024 Rolly Herman Ingrown nail L60.0 ; Cellulitis of toe of left foot L03.032 and Atherosclerosis of chicken ranch artery of both lower extremities, with unspecified presence of clinical manifestation I70.[address] [facility] [address] 03/11/2025 Rolly Herman Atherosclerosis of chicken ranch artery of both lower extremities, with unspecified presence of clinical manifestation I70.203 ; Onychomycosis B35.1 ; Pain of toe of right foot M79.674 ; Pain of toe of left foot M79.675 and Edema, lower extremity R60.0 Assessments Encounter Date Diagnosis (ICD Code) Assessment Notes Treatment Notes Treatment Clinical Notes Section Notes 09/07/2024 Ingrown nail (ICD-10 - L60.0) 09/07/2024 Cellulitis of toe of left foot (ICD-10 - L03.032) 03/11/2025 Onychomycosis (ICD-10 - B35.1) 03/11/2025 Atherosclerosis of chicken ranch artery of both lower extremities, with unspecified presence of clinical manifestation (ICD-10 - I70.203) 03/11/2025 Pain of toe of right foot (ICD-10 - M79.674) 09/07/2024 Atherosclerosis of chicken ranch artery of both lower extremities, with unspecified presence of clinical manifestation (ICD-10 - I70.203) 03/11/2025 Pain of toe of left foot (ICD-10 - M79.675) 03/11/2025 Edema, lower extremity (ICD-10 - R60.0) Plan Of Treatment Pending Test Test Name Order Date X ray : Foot, left 3V 01/23/2022 X ray : Foot, left 3V 11/29/2022 56226-ZVHYURZ NAIL, 6 OR MORE 02/25/2023 99859-WRJLEDE NAIL, 6 OR MORE 11/29/2022 56899-EAPLXMZ NAIL, 6 OR MORE 07/22/2023 83641-ZZFZXOR NAIL, 6 OR MORE 03/11/2025 08681-CYLHNIV NAIL, 6 OR MORE 03/05/2022 89287-MPNGHPX NAIL, 6 OR MORE 05/28/2022 39534-NLGPKFF NAIL, 6 OR MORE 08/27/2022 70686-Beqtnqrm Plate 05/28/2022 29824-Izainvte Plate 09/07/2024 86226- Debride <25 sq cm 01/23/2022 70886 I&D ABSCESS- SIMPLE,SINGLE 022 99255-MDPO SKIN LESIONS, 2 TO 4 08/28/19 37424-VPHX SKIN LESIONS, 2 TO 4 05/28/20 22 09907-HOCA SKIN LESIONS, 2 TO 4 03/11/20 25 91381-YRKE SKIN LESIONS, 2 TO 4 07/22/19 24 03578-CXJR SKIN LESIONS, 2 TO 4 11/30/19 23 68169-NNGI SKIN LESIONS, 2 TO 4 02/26/20 23 Insurance Providers Payer Name Payer Address Payer Phone Subscriber Number Group Number Insured Name Patient Relationship to Insured Coverage Start Date Coverage End Date Medicare National [employer] [address] [place] [address] [id number] Myles Tipton Self - patient is the [...] Hospitalization History Reason Date(Month/Year) [facility]- Pacemaker 08/2024 [facility] [place] sam[place]- coded 2x CPR done 2 days 06/13/2022 [facility] left knee 3 x between 5 weeks 2021 [facility] [place] painful L migel Ingrown? 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
--- OUTSIDE RECORDS SUMMARY | 2025-04-06 09:04 | XMS_ITS | Encounter Summary ---
Author Organization [employer] Address [address] [place] [address] 7 [place] [address] Care Team Providers Care Job Recruiter Name Role Phone Name, Memo ARREDONDO Primary Care Provider [phone] Reason for Visit * Reason Comments Med Refill Encounter Details Date Type Department Care Team ([facility] st Contact Info) Description 04/05/2025 Refill [facility] MEDICINE [address] [place], [place] [phone] Name, MD Memo [address] [place] [address] Social History Tobacco Use Types Packs/Day Years [...] AM EDT documented as of this encounter Functional Status * Over the last 2 weeks, how often have you been bothered by any of the following problems? Question Answer Date of Assessment Author Feeling nervous, anxious, or on edge 0 04/05/2025 10:01 AM EDT Brittney Powers MA Not being able to stop or control worrying 0 04/05/2025 10:01 AM LINT Brittney Powers MA Worrying too much about different things 2 04/05/2025 10:01 AM LINT Brittney Powers MA Trouble relaxing 2 04/05/2025 10:01 AM LINT Allison Powers MA Being so restless that it is hard to sit still 0 04/05/2025 10:01 AM Brittney Meza MA Becoming easily annoyed or irritable 0 04/05/2025 10:01 AM Brittney Meza MA Feeling afraid as if something awful might happen 0 04/05/2025 10:01 AM LINT Allison Weinberg MA JEANIE-7 Total Score 4 04/05/2025 10:01 AM Allison Meza MA documented as of this encounter Plan of Treatment Upcoming Encounters Date Type Department Care Team (Late st Contact Info) Description 04/08/2025 9:00 AM EDT Telemedicine [facility] MEDICINE [address] [place] [address] 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, RN documented as of this encounter Visit Diagnoses Not on filedocumented in this encounter Additional Health Concerns Assessment Noted Time PHQ-9 Depression Total Score: 0 07/17/19 24 10:49 AM EST documented as of this encounter Care Teams Job Recruiter Relationship Specialty Start Date End Date Name, MD Memo [address] [place] [address] PCP - General Family Medicine 08/30/15 documented as of this encounter
--- OUTSIDE RECORDS SUMMARY | 2025-04-06 09:04 | XMS_ITS | Encounter Summary ---
Author Organization [facility] Address [address] [place] [address] Phone Care Team Providers Care Laser Technician Name Role Phone Memo Alex MD Primary Care Provider [phone] Reason for Referral * Consultation (Within 1 month) - Closed Specialty Diagnoses / Procedures Referred By Contac t Referred To Contact Memo Alex MD Phone: tel: fax: [facility] [id number] Referral ID Status Reason Start Date Expiration Date Visits Re quested Visits Authorized [id number] Closed 12/30/2017 12/30/2018 1 1 Encounter Details Date Type Department Care Team ([facility] st Contact Info) Description 12/30/2017 Transcribe Orders [facility] [address] [place] [id number] Unknown, Unknown, Social History Tobacco Use Types [...] on filedocumented in this encounter Care Teams Laser Technician Relationship Specialty Start Date End Date Memo Alex MD [address] [place] [address] PCP - General Geriatric Psychiatry 12/29/17 documented as of this encounter Additional Source Comments The information contained in this document represents components of the legal health record. It is not the complete legal health record.[facility]
--- OUTSIDE RECORDS SUMMARY | 2025-04-06 09:04 | XMS_ITS | Encounter Summary ---
Author Organization [employer] Address [address] [place] [address] 7 [place] [address] Care Team Providers Care Senior Budget Analyst Name Role Phone Name, Memo ARREDONDO Primary Care Provider [phone] Reason for Visit * Reason Comments Med Refill Encounter Details Date Type Department Care Team ([facility] st Contact Info) Description 03/14/2025 Refill [facility] MEDICINE [address] [place], [place] [phone] Name, MD Memo [address] [place] [address] Chronic pain syndrome Social History Tobacco Use [...] 04/08/2025 9:00 AM EDT Telemedicine [facility] MEDICINE [address] [place] [address] 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 RN documented as of this encounter Visit Diagnoses Diagnosis Chronic pain syndrome documented in this encounter Additional Health Concerns Assessment Noted Time PHQ-9 Depression Total Score: 0 07/17/19 24 10:49 AM EST documented as of this encounter Care Teams Senior Budget Analyst Relationship Specialty Start Date End Date Name, MD Memo [address] [place] [address] PCP - General Family Medicine 08/30/15 documented as of this encounter
--- OUTSIDE RECORDS SUMMARY | 2025-04-06 09:04 | XMS_ITS | Encounter Summary ---
Author Organization [employer] Address [address] [place] [address] 7 [place] [address] Care Team Providers Care Soft Drink Powder Mixer Name Role Phone Name, Memo ARREDONDO Primary Care Provider [phone] Reason for Visit * Reason Onset Date Comments Chart Prep 04/04/2025 Encounter Details Date Type Department Care Team ([facility] Contact Info) Description 04/04/2025 Telephone [facility] MEDICINE [address] [place], [place] [phone] Name, MD Memo [address] [place] [address] Chart Prep Social History Tobacco Use Types Packs/Day Years [...] encounter Miscellaneous Notes * Telephone Encounter - Alexis Niño [place] - 04/04/2025 12:58 PM EDT Chart Prep Labs: done Images: done Referrals: Booked Vaccines due: Covid, Flu, and RSV Screenings: not applicable Overdue care gaps: JEANIE-7, Disability screen, and Tobacco documented in this encounter Plan of Treatment Upcoming Encounters Date Type Department Care Team (Late st Contact Info) Description 04/08/2025 9:00 AM EDT Telemedicine [facility] MEDICINE [address] [place] [address] 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, VON documented as of this encounter Visit Diagnoses Not on filedocumented in this encounter Additional Health Concerns Assessment Noted Time PHQ-9 Depression Total Score: 0 07/17/19 10:49 AM EST documented as of this encounter Care Teams Soft Drink Powder Mixer Relationship Specialty Start Date End Date Name, MD Memo [address] [place] [address] PCP - General Family Medicine 08/30/15 documented as of this encounter
--- OUTSIDE RECORDS SUMMARY | 2025-04-06 09:05 | XMS_ITS | Encounter Summary ---
Author Organization [employer] Address [address] [place] [address] [address] [place] [address] Care Team Providers Care Rig Site Engineer Name Role Phone Name, Memo ARREDONDO Primary Care Provider [phone] Encounter Details Date Type Department Care Team (Latest Contact Info) Description 04/05/2025 Travel Social History Tobacco Use Types Packs/Day Years [...] JEANIE-7 Total Score 4 04/05/2025 10:01 AM LINT Allison Powers MA documented as of this encounter Plan of Treatment Upcoming Encounters Date Type Department Care Team (Late st Contact Info) Description 04/08/2025 9:00 AM EDT Telemedicine [facility] MEDICINE [address] [place] [address] 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 RN documented as of this encounter Visit Diagnoses Not on filedocumented in this encounter Additional Health Concerns Assessment Noted Time PHQ-9 Depression Total Score: 0 07/17/19 24 10:49 AM EST documented as of this encounter Care Teams Rig Site Engineer Relationship Specialty Start Date End Date Name, MD Memo [address] [place] [address] PCP - General Family Medicine 08/30/15 documented as of this encounter
--- OUTSIDE RECORDS SUMMARY | 2025-04-06 09:05 | XMS_ITS | Encounter Summary ---
Author Organization [employer] Address [address] [place] [address] 7 [place] [address] Care Team Providers Care Multiple Slide Operator Name Role Phone Name, Memo ARREDONDO Primary Care Provider [phone] Encounter Details Date Type Department Care Team (Late Contact Info) Description [facility]/20[facility] [address] [place], [place] [phone] Name, MD Memo [address] [place], [place] [phone] Social History Tobacco Use Types Packs/Day Years [...] Description 04/08/2025 9:00 AM EDT Telemedicine [facility] MEDICINE [address] [place] [address] 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, RN documented as of this encounter Visit Diagnoses Not on filedocumented in this encounter Additional Health Concerns Assessment Noted Time PHQ-9 Depression Total Score: 9 06/27/19 23 10:17 AM EST documented as of this encounter Care Teams Multiple Slide Operator Relationship Specialty Start Date End Date Name, MD Memo [address] [place] [address] PCP - General Family Medicine 08/30/15 documented as of this encounter
--- OUTSIDE RECORDS SUMMARY | 2025-04-06 09:05 | XMS_ITS | Encounter Summary ---
Author Organization [employer] Address [address] [place] [address] 7 [place] [address] Care Team Providers Care Air Defense Control Officer Name Role Phone Name, Memo ARREDONDO Primary Care Provider [phone] Reason for Visit * Reason Comments Med Refill Encounter Details Date Type Department Care Team ([facility] st Contact Info) Description 04/02/[address] [facility] MEDICINE [address] [place], [place] [phone] Name, MD Memo [address] [place] [address] Social History Tobacco Use Types Packs/Day Years [...] 9:00 AM EDT Telemedicine [facility] MEDICINE [address] [place] [address] 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 RN documented as of this encounter Visit Diagnoses Not on filedocumented in this encounter Additional Health Concerns Assessment Noted Time PHQ-9 Depression Total Score: 0 07/17/19 24 10:49 AM EST documented as of this encounter Care Teams Air Defense Control Officer Relationship Specialty Start Date End Date Name, MD Memo [address] [place] [address] PCP - General Family Medicine 08/30/15 documented as of this encounter
--- OUTSIDE RECORDS SUMMARY | 2025-04-06 09:05 | XMS_ITS | Encounter Summary ---
Author Organization [employer] Address [address] [place] [address] 7 [place] [address] Care Team Providers Care Steel Cutter Name Role Phone Name, Memo ARREDONDO Primary Care Provider [phone] Reason for Visit * Reason Comments Med Refill Encounter Details Date Type Department Care Team ([facility] st Contact Info) Description 10/25/2022 Refill [facility] MEDICINE [address] [place], [place] [phone] Name, MD Memo [address] [place] [address] Chronic pain syndrome Social History Tobacco Use [...] 04/08/2025 9:00 AM EDT Telemedicine [facility] MEDICINE [address] [place] [address] 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 RN documented as of this encounter Visit Diagnoses Diagnosis Chronic pain syndrome documented in this encounter Additional Health Concerns Assessment Noted Time PHQ-9 Depression Total Score: 9 06/27/19 10:17 AM EST documented as of this encounter Care Teams Steel Cutter Relationship Specialty Start Date End Date Name, MD Memo [address] [place] [address] PCP - General Family Medicine 08/30/15 documented as of this encounter
--- OUTSIDE RECORDS SUMMARY | 2025-04-06 09:05 | XMS_ITS | Encounter Summary ---
Author Organization [employer] Address [address] [place] [address] 7 [place] [address] Care Team Providers Care Landscaping Manager Name Role Phone Name, Memo ARREDONDO Primary Care Provider [phone] Reason for Visit * Reason Comments Med Refill Encounter Details Date Type Department Care Team ([facility] st Contact Info) Description 03/23/2024 Refill [facility] MEDICINE [address] [place], [place] [phone] Name, MD Memo [address] [place] [address] Social History Tobacco Use Types Packs/Day Years [...] 04/08/2025 9:00 AM EDT Telemedicine [facility] MEDICINE [address] [place] [address] 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 RN documented as of this encounter Visit Diagnoses Not on filedocumented in this encounter Additional Health Concerns Assessment Noted Time PHQ-9 Depression Total Score: 0 07/17/19 24 10:49 AM EST documented as of this encounter Care Teams Landscaping Manager Relationship Specialty Start Date End Date Name, MD Memo [address] [place] [address] PCP - General Family Medicine 08/30/15 documented as of this encounter
--- OUTSIDE RECORDS SUMMARY | 2025-04-06 09:05 | XMS_ITS | Encounter Summary ---
Author Organization [email or web address] Address [address] [place] [address] [address] [place] [address] Care Team Providers Care Sample Room Supervisor Name Role Phone Name, Memo ARREDONDO Primary Care Provider Reason for Visit * Reason Onset Date Comments Error 03/25/2024 Encounter Details Date Type Department Care Team ([facility] Contact Info) Description 03/25/2024 Telephone [facility] MEDICINE [address] [place], [place] [phone] Name, MD Memo [address] [place] [address] Error Social History Tobacco Use Types Packs/Day [...] [facility] MEDICINE [address] [place] [address] 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, RN documented as of this encounter Visit Diagnoses Not on filedocumented in this encounter Additional Health Concerns Assessment Noted Time PHQ-9 Depression Total Score: 0 07/17/19 24 10:49 AM EST documented as of this encounter Care Teams Sample Room Supervisor Relationship Specialty Start Date End Date Name, MD Memo [address] [place] [address] PCP - General Family Medicine 08/30/15 documented as of this encounter
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
--- OUTSIDE RECORDS SUMMARY | 2025-04-06 09:05 | XMS_ITS | Encounter Summary ---
Author Organization [employer] Address [address] [place] [address] [address] [place] [address] Care Team Providers Care Legal Secretary Receptionist Name Role Phone Name, Memo ARREDONDO Primary Care Provider [phone] Reason for Visit * Reason Onset Date Comments Nurse Triage 11/17/2024 Encounter Details Date Type Department Care Team ([facility] st Contact Info) Description 11/17/2024 Telephone [facility] MEDICINE [address] [place], [place] [phone] Name, MD Memo [address] [place] [address] Nurse Triage Social History Tobacco Use Types [...] side of head. Pt is advised to [facility], Pt reports is at work till 630pm and will go to [facility] as soon as Pt leaves work. Pt [...] life now The caller accepted this outcome. [phone] documented in this encounter Plan of Treatment Upcoming Encounters Date Type Department Care Team (Late st Contact Info) Description 04/08/2025 9:00 AM EDT Telemedicine [facility] MEDICINE [address] [place] [address] 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, VON documented as of this encounter Visit Diagnoses Not on filedocumented in this encounter Additional Health Concerns Assessment Noted Time PHQ-9 Depression Total Score: 0 07/17/19 24 10:49 AM EST documented as of this encounter Care Teams Legal Secretary Receptionist Relationship Specialty Start Date End Date Name, MD Memo [address] [place] [address] PCP - General Family Medicine 08/30/15 documented as of this encounter
--- OUTSIDE RECORDS SUMMARY | 2025-04-06 09:06 | XMS_ITS | Encounter Summary ---
Author Organization [employer] Address [address] [facility] [address] [place] [address] Care Team Providers Care Store Clerk Checker Name Role Phone Name, Memo ARREDONDO Primary Care Provider [phone] Encounter Details Date Type Department Care Team ([facility] st Contact Info) Description 10/24/2024 Orders Only [facility] [address] [place], [place] [phone] ProviderFerdinand MD Social History Tobacco Use Types [...] Info) Description 04/08/2025 9:00 AM EDT Telemedicine [facility] MEDICINE [address] [place] [address] Shahla Weston RN documented as of this encounter Procedures Procedure Name Priority Date/Time Associated Diagnosis Comments COLONOSCOPY Routine 09/02/2024 6:46 PM EDT documented in this encounter Results * Hm Colonoscopy (09/02/2024 6:46 PM EDT) [...] documented as of this encounter Care Teams Store Clerk Checker Relationship Specialty Start Date End Date Name, MD Memo [address] [place] [address] PCP - General Family Medicine 08/30/15 documented as of this encounter
[2025-04-06 09:32] LABS: Cholesterol 167 mg/dL (<200); HDL Cholesterol 48 mg/dL (>40); Triglycerides 236 mg/dL (<150)
== END 2025-04-06 08:31 | disposition home or self-care (01) ==
LOC: HO.LAB 08:30
PROVIDERS: PCP Internal Medicine Geriatric Medicine; Visit Provider Internal Medicine Geriatric Medicine
DX: I25.118 Atherosclerotic heart disease of native coronary artery with other forms of angina pectoris (principal)
CPT/HCPCS: 36415; 80061

== ENCOUNTER → 2025-05-10 09:24 | Outpatient (BNV) | payer MEDICARE, MEDICAID, SELFPAY | PROVIDERS: PCP Internal Medicine Geriatric Medicine; Visit Provider Internal Medicine | DX: I48.0 Paroxysmal atrial fibrillation (principal); Z95.0 Presence of cardiac pacemaker | CPT/HCPCS: 93294 ==

== ENCOUNTER 2025-05-16 08:19 | Outpatient (AMB) | payer MEDICARE, MEDICAID, SELFPAY ==
--- NOTE | 2025-05-16 08:21 | MHC.OFFVIS ---
Vital Signs 05/16/25 08:28 Height 5 ft 11 in Weight 204 lb BMI 28.4 BP 183/97 H Blood Pressure Location Rt brachial Position Sitting Respiration 16 Pulse 60 Pulse Source Pulse Oximeter Pulse Oximetry (%) 97 Oxygen Delivery Method Room Air Intake Visit Reasons: 2m Associate Director Regulatory Affairs Required: No Allergies bee pollen (BEE STINGS) Allergy (Severe, Verified 05/16/25 08:30) ANAPHYLAXIS indomethacin (Indocin) Allergy (Severe, Verified 05/16/25 08:30) anaphylaxis fentanyl Adverse Reaction (Intermediate, Verified 05/16/25 08:30) Anxiety HPI Comments Details: Myles is a 70-year-old right hand dominant male with a past medical history of CVA, seizure, cardiac arrhythmia with a pacemaker on anticoagulation presenting for a follow-up visit for worsening tremors. Initially, the tremors were confined to the right hand and were thought to be essential tremors, but they have now progressed to the left side, severely affecting his ability to perform daily tasks such as writing, using a computer, and cutting food. The tremors have been present for approximately 4 years after his CVA and seizure. He was initially treated with Primidone for the tremors, which was ineffective and caused fatigue. He is currently on Keppra for seizure management. He does not have any family history of tremor that he is aware of. He does report an uncle with ALS but otherwise no other known neurological disease in his family. The patient has a significant history of alcohol use, which he has abstained from for 16 years, and a history of cocaine use during his sports career. He reports a history of multiple concussions from playing sports, which lacked proper concussion protocols at the time. He continues to smoke tobacco, approximately half a pack per day. He denies any continue use of alcohol or other illicit substances. At the time of his last visit, he reported that his balance was stable and he was able to ambulate without any difficulties. Today in follow up he reports that he has noticed his balance has been more difficult over the last month or so though he has not had any falls. He does not use a cane or a walker though he does have ambulatory devices at home available to him. 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 He finds it very embarrassing. He was supposed to have an MRI scan at last visit in efforts to visualize his cerebellum and get better view of previously affected areas of infarct. There was some difficulty putting this because of his pacemaker. He does have an appointment however for 06/01/2025. [facility] Medical History (Updated 03/11/25 @ 08:50 by Staci Gonzáles CNP) Nicotine dependence, cigarettes, uncomplicated Elevated cholesterol History of chemotherapy Obstructive sleep apnea (~2018) On anticoagulant therapy DVT (deep venous thrombosis) Essential hypertension Tubular adenoma of colon COVID-19 vaccine administered Seizures (~04/2020) GERD (gastroesophageal reflux disease) Esophagitis Atherosclerotic cardiovascular disease Psychotic disorder Syncope Headache Myocardial infarction Pacemaker (~05/2013) Tremor Brain bleed CAD (coronary artery disease) Surgical History Hx of shoulder surgery History of total left knee replacement History of ERCP History of spinal surgery History of colonoscopy (~09/2020) History of right knee surgery (~12/2013) History of total right hip replacement (~06/2012) History of cholecystectomy History of cardiac catheterization History of permanent cardiac pacemaker placement (~05/2013) History of esophagogastroduodenoscopy (EGD) (~09/2020) History of appendectomy Stented coronary artery Family History Father Heavy cigarette smoker Throat cancer Mother Heart disease Social History Household Members: None Household Members Other:: shares house with a friend Housing: House Are you a primary daycare provider to a significant other at home: No Do you presently have visiting nurse or other home services: No Alcohol intake: never Comment: resting eyes closed Patient Tobacco Use Status: Current someday Tobacco user Tobacco use type: Cigarette Years Smoked: 8 +/- e-Cigarette/Vaping Use: Never Used Second Hand Smoke Exposure: No Advance Directives Date on File: 12/16/20 service: No Current occupational status: employed and retired Review of Systems Const All systems reviewed & are unremarkable except as noted in HPI and below Neuro Denies Abnormal speech present Physical Exam Vital Signs: Last Vital Signs Pulse 60 05/16/25 08:28 Resp 16 05/16/25 08:28 BP 183/97 H 05/16/25 08:28 Pulse Ox 97 05/16/25 08:28 Oxygen Delivery Method Room Air 05/16/25 08:28 BMI result Body Mass Index 28.4 Const Orientation/consciousness: oriented to person, oriented to place and oriented to time HEENT Head: Yes normal to inspection Eyes Pupils: Equal, round and reactive pupils present Neuro General: oriented to person, oriented to place and oriented to time Cranial nerves: Yes CN's II-XII intact bilaterally, Yes Equal, round and reactive pupils present and Yes Bilaterally intact EOM present Cognition (Neuro): normal cognition Speech: No Abnormal speech present Gait exam (Neuro): Other gait observations present (More difficulty with walking heel-to-toe) Motor exam (neuro): 5/5 motor strength present throughout and Tremors during motor activity present (R>L action/intention. High amplitude with limb oscillations) bilateral upper extremity intention tremor Coordination: No lhhrov-fi-aexo test normal (R>L high amplitude tremor with limb oscillations. Ataxic movements) and Romberg test negative Psych Appearance: grossly normal Mental Status: mental status grossly normal Affect: normal affect Assessment & Plan Assessment & Plan (1) Intention tremor: Code(s): G25.2 - Other specified forms of tremor Category: Medical Plan: . Plan The patient is a 70-year-old right hand dominant male with a past medical history of CVA, seizure, cardiac arrhythmia with a pacemaker on anticoagulation presenting for a follow up visit with worsening tremors/ataxia. Tremors had previously been only localized to the right upper extremity and presumed to be an essential tremor but without any response to primidone. Over the course of the last year or so he now is experiencing left-sided tremors but to a lesser degree. His right sided tremor has also become more pronounced. He does admit to a significant history of drinking in the past. This tremor could represent an intention tremor/cerebellar tremor versus essential tremor. I did order an MRI of the brain with and without contrast at time of last visit however this was not completed given patient's pacemaker. We need to coordinate with pacemaker company and hospital to have this completed. He does have an appointment set up with the pacemaker company involved on 06/01/2025. His tandem gait is certainly a slightly worse than it has been at last visit and he does report some worsening of imbalance over the course of the last month. This is concerning for cerebellar pathology. We will await images and may consider ataxia panel if indicated. I will likely review with attending at time of next visit once we have the imaging back for review. -MRI of the brain with and without contrast-scheduled for 06/01/2025 -follow up after MRI scan Coding Level of Care Code Est Pt Level 3 (44694) Diagnoses Intention tremor G25.2
[2025-05-16 08:28] VITALS: BP 183/97; PULSE 60; RESP 16; O2SAT 97; BMI 28.4
--- OUTSIDE RECORDS SUMMARY | 2025-05-16 09:26 | XMS_ITS | Encounter Summary ---
Author Organization [facility] Address [address] [place] [address] [address] Phone Care Team Providers Care Radiology Director Name Role Phone Name, Memo ARREDONDO Primary Care Provider [phone] Encounter Details Date Type Department Care Team (Late st Contact Info) Description 01/19/2018 Procedure Pass [facility] Imaging [address] [place] [address] Social History Tobacco Use Types Packs/Day Years [...] on filedocumented in this encounter Care Teams Radiology Director Relationship Specialty Start Date End Date Name, MD Memo [address] [place] [address] PCP - General Geriatric Psychiatry 12/29/17 documented as of this encounter Additional Source Comments The information contained in this document represents components of the legal health record. It is not the complete legal health record.[facility]
--- OUTSIDE RECORDS SUMMARY | 2025-05-16 09:26 | XMS_ITS | Encounter Summary ---
Author Organization [employer] Address [address] [facility] 7t [place] [address] Care Team Providers Care Alternative Medicine Practitioner Name Role Phone Name, Memo ARREDONDO Primary Care Provider [phone] Reason for Visit * Reason Onset Date Comments Med Refill 09/29/2024 Encounter Details Date Type Department Care Team ([facility] st Contact Info) Description 09/29/2024 Telephone [facility] MED & PEDS [address] [place], [place] [phone] Name, MD Memo [address] [place] [address] Med Refill Social History Tobacco Use Types [...] immediate release tablet To be sent to: [facility] - [place], [place] - [address] [place] [address] *pt wanting an early fill because will be leaving [facility] in the afternoon to [place] documented in this encounter Plan of Treatment Upcoming Encounters Date Type Department Care Team ([facility] st Contact Info) Description 07/13/2025 11:00 AM EST Office Visit [facility] MEDICINE [address] [place] [address] Name, MD Memo [address] [place] [address] 07/15/2025 10:00 AM EST Telemedicine [facility] MED[facility]INE [address] [place] [address] Shahla Weston RN documented as of this encounter Visit Diagnoses Not on filedocumented in this encounter Additional Health Concerns Assessment Noted Time PHQ-9 Depression Total Score: 0 07/17/19 24 10:49 AM EST documented as of this encounter Care Teams Alternative Medicine Practitioner Relationship Specialty Start Date End Date Name, MD Memo [address] [place] [address] PCP - General Family Medicine 08/30/15 documented as of this encounter
--- OUTSIDE RECORDS SUMMARY | 2025-05-16 09:26 | XMS_ITS | Encounter Summary ---
Author Organization [employer] Address [address] [place] [address] 7 [place] [address] Care Team Providers Care Singing Waiter Or Waitress Name Role Phone Name, Memo ARREDONDO Primary Care Provider [phone] Reason for Visit * Reason Onset Date Comments returning call back 05/14/2022 Encounter Details Date Type Department Care Team ([facility] st Contact Info) Description 05/14/2022 Telephone [facility] MEDICINE [address] [place] [address] Name, MD Memo [address] [place] [address] returning call back Social History Tobacco Use [...] be called back. Please contact pt at [phone] documented in this encounter Plan of Treatment Upcoming Encounters Date Type Department Care Team (Late st Contact Info) Description 07/13/2025 11:00 AM EST Office Visit [address] [address] Name, MD Memo [address] [place] [address] 07/15/2025 10:00 AM EST Telemedicine [address] [address] Shahla Weston RN documented as of this encounter Visit Diagnoses Not on filedocumented in this encounter Care Teams Singing Waiter Or Waitress Relationship Specialty Start Date End Date Name, MD Memo [address] [place] [address] PCP - General Family Medicine 08/30/15 documented as of this encounter
--- OUTSIDE RECORDS SUMMARY | 2025-05-16 09:26 | XMS_ITS | Encounter Summary ---
Author Organization [employer] Address [address] [place] [address] 7 [place] [address] Care Team Providers Care Hair Machine Operator Name Role Phone Name, Memo ARREDONDO Primary Care Provider [phone] Encounter Details Date Type Department Care Team (Latest Contact Info) Description 07/09/2021 Abstract [facility] CONVERSIONS Dental, Provider, DDS Social History Tobacco [...] Description 07/13/2025 11:00 AM EST Office Visit [address] [address] Name, MD Memo [address] [place] [address] 07/15/2025 10:00 AM EST Telemedicine [facility] MEDICINE [address] [place] [address] Shahla Weston RN documented as of this encounter Visit Diagnoses Not on filedocumented in this encounter Care Teams Hair Machine Operator Relationship Specialty Start Date End Date Memo Alex MD [address] [place] [address] PCP - General Family Medicine 08/30/15 documented as of this encounter
--- OUTSIDE RECORDS SUMMARY | 2025-05-16 09:26 | XMS_ITS | Encounter Summary ---
Author Organization [employer] Address [address] [place] [address] 7 [place] [address] Care Team Providers Care License Distributor Name Role Phone Name, Memo ARREDONDO Primary Care Provider [phone] Reason for Visit * Reason Comments Med Refill Encounter Details Date Type Department Care Team ([facility] st Contact Info) Description 02/03/2024 Refill [facility] MEDICINE [address] [place], [place] [phone] Name, MD Memo [address] [place] [address] Chronic pain syndrome Social History Tobacco Use [...] Description 07/13/2025 11:00 AM EST Office Visit [address] [address] Name, MD Memo [address] [place] [address] 07/15/2025 10:00 AM EST Telemedicine [facility] MEDICINE [address] [place] [address] Shahla Weston, VON documented as of this encounter Visit Diagnoses Diagnosis Chronic pain syndrome documented in this encounter Additional Health Concerns Assessment Noted Time PHQ-9 Depression Total Score: 0 07/17/19 24 10:49 AM EST documented as of this encounter Care Teams License Distributor Relationship Specialty Start Date End Date NameMemo MD [address] [place] [address] PCP - General Family Medicine 08/30/15 documented as of this encounter
--- OUTSIDE RECORDS SUMMARY | 2025-05-16 09:26 | XMS_ITS | Encounter Summary ---
Author Organization [employer] Address [address] [facility] 7t [place] [address] Care Team Providers Care Vegetable Loader Name Role Phone Name, Memo ARREDONDO Primary Care Provider [phone] Reason for Visit * Reason Onset Date Comments triage 06/06/2022 Encounter Details Date Type Department Care Team ([facility] st Contact Info) Description 06/06/2022 Telephone [facility] MEDICINE [address] [place] [address] Name, MD Memo [address] [place] [address] triage Social History Tobacco Use Types Packs/Day [...] visit with PRIYANKA Schwab at 1115am . [facility] unable to schedule a tele [...] Description 07/13/2025 11:00 AM EST Office Visit [facility] MEDICINE [address] [place] [address] Name, MD Memo [address] [place] [address] 07/15/2025 10:00 AM EST Telemedicine [facility] MEDICINE [address] [place] [address] Shahla Weston RN documented as of this encounter Visit Diagnoses Not on filedocumented in this encounter Care Teams Vegetable Loader Relationship Specialty Start Date End Date Name, MD Memo [address] [place] [address] PCP - General Family Medicine 08/30/15 documented as of this encounter
--- OUTSIDE RECORDS SUMMARY | 2025-05-16 09:26 | XMS_ITS | Encounter Summary ---
Author Organization [employer] Address [address] [place] [address] 7t [place] [address] Care Team Providers Care Plywood Stock Grader Name Role Phone Name, Memo ARREDONDO Primary Care Provider [phone] Encounter Details Date Type Department Care Team (Late Contact Info) Description 06/06/2022 Telephone [facility] MEDICINE [address] [place] [address] [phone] NameMemo MD [address] [place] [address] [phone] Social History Tobacco Use Types Packs/Day Years [...] Description 07/13/2025 11:00 AM EST Office Visit [facility] MEDICINE [address] [place] [address] [phone] Memo Alex MD [address] [place] [address] [phone] 07/15/2025 10:00 AM EST Telemedicine [facility] MEDICINE [address] [place] [address] [phone] Shahla Weston, RN documented as of this encounter Visit Diagnoses Not on filedocumented in this encounter Care Teams Plywood Stock Grader Relationship Specialty Start Date End Date Name, MD Memo [address] [place] [address] PCP - General Family Medicine 08/30/15 documented as of this encounter
--- OUTSIDE RECORDS SUMMARY | 2025-05-16 09:26 | XMS_ITS | Encounter Summary ---
Author Organization [employer] Address [address] [place] [address] 7 [place] [address] Care Team Providers Care Knitting Machine Operator Helper Name Role Phone Name, Memo ARREDONDO Primary Care Provider [phone] Reason for Visit * Reason Comments Med Refill Encounter Details Date Type Department Care Team ([facility] st Contact Info) Description 03/14/2025 Refill [facility] MEDICINE [address] [place], [place] [phone] Name, MD Memo [address] [place] [address] Chronic pain syndrome Social History Tobacco Use [...] is your housing situation today? I have lesyl tirado 11/11/[address] you [...] Description 07/13/2025 11:00 AM EST Office Visit [address] [address] Name, MD Memo [address] [place] [address] 07/15/2025 10:00 AM EST Telemedicine [address] [address] Shalha Weston, VON documented as of this encounter Visit Diagnoses Diagnosis Chronic pain syndrome documented in this encounter Additional Health Concerns Assessment Noted Time PHQ-9 Depression Total Score: 0 07/17/19 24 10:49 AM EST documented as of this encounter Care Teams Knitting Machine Operator Helper Relationship Specialty Start Date End Date Name, MD Memo [address] [place] [address] PCP - General Family Medicine 08/30/15 documented as of this encounter
--- OUTSIDE RECORDS SUMMARY | 2025-05-16 09:26 | XMS_ITS | Encounter Summary ---
Author Organization [employer] Address [address] [place] [address] 7 [place] [address] Care Team Providers Care Low Altitude Air Defense Officer Name Role Phone Name, Memo ARREDONDO Primary Care Provider [phone] Reason for Visit * Reason Onset Date Comments ER Follow-up 09/16/2024 Encounter Details Date Type Department Care Team ([facility] st Contact Info) Description 09/16/2024 Telephone [facility] MEDICINE [address] [place], [place] [phone] Name, MD Memo [address] [place] [address] ER Follow-up Social History Tobacco Use Types [...] 09/16/2024 10:30 AM EDT Pt evaluated in [facility] ED 09/15/24 Dx: Syncope, concussion. Pt left [...] ED visit on : Date: 09/15/24 Hospital: [facility] Seen for: Concussion Symptomatic No *if yes message should go to Triage Patient advised will forward to team nurse for follow up Contact pt at [phone] documented in this encounter Plan of Treatment Upcoming Encounters Date Type Department Care Team (Late st Contact Info) Description 07/13/2025 11:00 AM EST Office Visit [address] [address] Name, MD Memo [address] [place] [address] 07/15/2025 10:00 AM EST Telemedicine [address] [address] Shahla Weston, VON documented as of this encounter Visit Diagnoses Not on filedocumented in this encounter Additional Health Concerns Assessment Noted Time PHQ-9 Depression Total Score: 0 07/17/19 24 10:49 AM EST documented as of this encounter Care Teams Low Altitude Air Defense Officer Relationship Specialty Start Date End Date NameMemo MD [address] [place] [address] PCP - General Family Medicine 08/30/15 documented as of this encounter
--- OUTSIDE RECORDS SUMMARY | 2025-05-16 09:26 | XMS_ITS | Encounter Summary ---
Author Organization [employer] Address [address] [place] [address] 7t [place] [address] Care Team Providers Care Friend Of The Court Name Role Phone Name, Memo ARREDONDO Primary Care Provider [phone] Reason for Visit * Reason Comments Med Refill Encounter Details Date Type Department Care Team ([facility] st Contact Info) Description 04/30/2023 Refill [facility] MEDICINE [address] [place], [place] [phone] [facility] [address] [place], [place] [phone] Coronary artery disease involving shoalwater heart without angina pectoris, unspecified vessel or [...] Description 07/13/2025 11:00 AM EST Office Visit [facility] MEDICINE [address] [place] [address] NameMemo MD [address] [place] [address] 07/15/2025 10:00 AM EST Telemedicine [facility] MEDICINE [address] [place] [address] Shahla Weston RN documented as of this encounter Visit Diagnoses Diagnosis Coronary artery disease involving shoalwater heart without angina pectoris, unspecified vessel or lesion type documented in this encounter Additional Health Concerns Assessment Noted Time PHQ-9 Depression Total Score: 9 06/27/19 23 10:17 AM EST documented as of this encounter Care Teams Friend Of The Court Relationship Specialty Start Date End Date NameMemo MD [address] [place] [address] PCP - General Family Medicine 08/30/15 documented as of this encounter
--- OUTSIDE RECORDS SUMMARY | 2025-05-16 09:26 | XMS_ITS | Encounter Summary ---
Author Organization [employer] Address [address] [place] [address] 7 [place] [address] Care Team Providers Care Pickle Pumper Name Role Phone Name, Memo ARREDONDO Primary Care Provider [phone] Reason for Visit * Reason Comments Med Refill Encounter Details Date Type Department Care Team ([facility] st Contact Info) Description 02/09/2025 Refill [facility] MEDICINE [address] [place], [place] [phone] Name, MD Memo [address] [place] [address] Chronic pain syndrome Social History Tobacco Use [...] Description 07/13/2025 11:00 AM EST Office Visit [address] [address] Name, MD Memo [address] [place] [address] 07/15/2025 10:00 AM EST Telemedicine [address] [address] Shahla Weston, VON documented as of this encounter Visit Diagnoses Diagnosis Chronic pain syndrome documented in this encounter Additional Health Concerns Assessment Noted Time PHQ-9 Depression Total Score: 0 07/17/19 24 10:49 AM EST documented as of this encounter Care Teams Pickle Pumper Relationship Specialty Start Date End Date Name, MD Memo [address] [place] [address] PCP - General Family Medicine 08/30/15 documented as of this encounter
--- OUTSIDE RECORDS SUMMARY | 2025-05-16 09:26 | XMS_ITS | Patient Health Record ---
Author Organization [facility] Address [address] [place] [address] Care Team Providers Care Boring Machine Operator Horizontal Name Role Phone Name Memo ARREDONDO Primary Care Provider Rolly Manzanares Unavailable [phone] Allergies Allergen (clinical drug ingredient) Drug/Non Drug [...] atherosclerosis of arteries of lower limbs (disorder) ([id number] ) Atherosclerosis of redding artery of both lower extremities, with unspecified presence of clinical manifestation (I70.203) Active confirmed Vital Signs Blood pressure diastolic 70 mm Hg 03/11/2025 Height 5ft 11in in 03/11/2025 Blood pressure systolic 123 mm Hg 03/11/2025 Weight 200 lbs 03/11/2025 BMI 27.89 kg/m2 03/11/2025 Procedures Procedure Date Ordered Date Performed Result Body Sit e 41377-Ipubiqko Plate 09/07/2024 N/A 25547-AAXINHY NAIL, 6 OR MORE 03/11/2025 N/A 63259-CTCF SKIN LESIONS, 2 TO 4 03/11/2025 N/A Encounters Encounter Location Date Provider Diagnosis [facility] [address] [address] 09/07/2024 Rolly Herman Ingrown nail L60.0 ; Cellulitis of toe of left foot L03.032 and Atherosclerosis of redding artery of both lower extremities, with unspecified presence of clinical manifestation I70.[address] [facility] [address] 03/11/2025 Rolly Herman Atherosclerosis of redding artery of both lower extremities, with unspecified [...] Onychomycosis (ICD-10 - B35.1) 03/11/2025 Atherosclerosis of redding artery of both lower extremities, with unspecified presence of clinical manifestation (ICD-10 - I70.203) 03/11/2025 Pain of toe of right foot (ICD-10 - M79.674) 09/07/2024 Atherosclerosis of redding artery of both lower extremities, with unspecified presence of clinical manifestation (ICD-10 - I70.203) 03/11/2025 Pain of toe of left foot (ICD-10 - M79.675) 03/11/2025 Edema, lower extremity (ICD-10 - R60.0) Plan Of Treatment Pending Test Test Name Order Date X ray : Foot, left 3V 01/23/2022 X ray : Foot, left 3V 11/29/2022 96152-SQTDGRV NAIL, 6 OR MORE 02/25/2023 25094-GLALCAC NAIL, 6 OR MORE 11/29/2022 92217-YAMRIMX NAIL, 6 OR MORE 07/22/2023 44791-WLRCXVA NAIL, 6 OR MORE 03/11/2025 55940-QJGMBYL NAIL, 6 OR MORE 03/05/2022 69545-YZJPIQV NAIL, 6 OR MORE 05/28/2022 83155-RHLNDSK NAIL, 6 OR MORE 08/27/2022 19332-Lcjuortq Plate 05/28/2022 51856-Efaonvpq Plate 09/07/2024 41420- Debride <25 sq cm 01/23/2022 03269 I&D ABSCESS- SIMPLE,SINGLE 022 79072-EQGT SKIN LESIONS, 2 TO 4 08/28/19 51755-NYYQ SKIN LESIONS, 2 TO 4 05/28/20 22 97061-ZIFP SKIN LESIONS, 2 TO 4 03/11/20 25 08659-PNDB SKIN LESIONS, 2 TO 4 07/22/19 24 00422-ICKP SKIN LESIONS, 2 TO 4 11/30/19 23 01462-XHDD SKIN LESIONS, 2 TO 4 02/26/20 23 Insurance Providers Payer Name Payer Address Payer Phone Subscriber Number Group Number Insured Name Patient Relationship to Insured Coverage Start Date Coverage End Date Medicare National [employer] [address] [place] [address] [id number] Myles Tipton Self - patient is the insured QMB [address] [place] [address] Myles Tipton Self - patient is the [...] Hospitalization History Reason Date(Month/Year) [facility] Pac[facility] 08/2024 [facility] [place] AFib and choke at sametime- coded 2x CPR done 2 days 06/13/2022 [facility] left knee 3 x between 5 weeks 2021 [facility] [place]Ugent [place] painful L migel Ingrown? 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
--- OUTSIDE RECORDS SUMMARY | 2025-05-16 09:26 | XMS_ITS | Encounter Summary ---
Author Organization [facility] Address [address] [place] [address] [place] [address] Phone Care Team Providers Care Cupola Operator Name Role Phone Name, Memo ARREDONDO Primary Care Provider [phone] Encounter Details Date Type Department Care Team (Late st Contact Info) Description 01/19/2018 Procedure Pass [facility] [address] [place] [address] Social History Tobacco Use Types Packs/Day Years [...] on filedocumented in this encounter Care Teams Cupola Operator Relationship Specialty Start Date End Date Name, MD Memo [address] [place] [address] PCP - General Geriatric Psychiatry 12/29/17 documented as of this encounter Additional Source Comments The information contained in this document represents components of the legal health record. It is not the complete legal health record.[facility]
--- OUTSIDE RECORDS SUMMARY | 2025-05-16 09:26 | XMS_ITS | Encounter Summary ---
Author Organization [employer] Address [address] [facility] 7t [place] [address] Care Team Providers Care Information Systems Supervisor Name Role Phone Name, Memo ARREDONDO Primary Care Provider [phone] Reason for Visit * Reason Onset Date Comments triage 06/05/2022 Encounter Details Date Type Department Care Team ([facility] st Contact Info) Description 06/05/2022 Telephone [facility] [address] [place] [address] Name, MD Memo [address] [place] [address] triage Social History Tobacco Use Types Packs/Day [...] Description 07/13/2025 11:00 AM EST Office Visit [address] [address] Name, MD Memo [address] [place] [address] 07/15/2025 10:00 AM EST Telemedicine [address] [address] Shahla Weston RN documented as of this encounter Visit Diagnoses Not on filedocumented in this encounter Care Teams Information Systems Supervisor Relationship Specialty Start Date End Date Name, MD Memo [address] [place] [address] PCP - General Family Medicine 08/30/15 documented as of this encounter
--- OUTSIDE RECORDS SUMMARY | 2025-05-16 09:26 | XMS_ITS | Encounter Summary ---
Author Organization [employer] Address [address] [place] [address] 7 [place] [address] Care Team Providers Care Solar Tech Name Role Phone Name, Memo ARREDONDO Primary Care Provider [phone] Reason for Visit * Reason Onset Date Comments Nurse Triage 09/03/2023 Encounter Details Date Type Department Care Team ([facility] st Contact Info) Description 09/03/2023 Telephone [facility] [address] [place], [place] [phone] Name, MD Memo [address] [place] [address] Nurse Triage Social History Tobacco Use Types [...] EDT Triage call Pt was seen in [facility] [place] 09/02/23 , report is on the [...] if feels that symptoms continue to worsen. Environmental Conservation Officer will forward this triage to PCP and nursing team. Pt agreeswith disposition and home care advised. Insurance is verified as active. Protocol Used: Abdominal Pain - Male (Adult) Protocol-Based Disposition: Go to ED/[facility] Now (or to Office with [...] accepted this outcome Pt inform went to [facility] ER on 09/02/23 but is still having line server pain documented in this encounter Plan of Treatment Upcoming Encounters Date Type Department Care Team (Late st Contact Info) Description 07/13/2025 11:00 AM EST Office Visit [address] [address] Name, MD Memo [address] [place] [address] 07/15/2025 10:00 AM EST Telemedicine [facility] [address] [place] [address] Shahla Weston, VON documented as of this encounter Visit Diagnoses Not on filedocumented in this encounter Additional Health Concerns Assessment Noted Time PHQ-9 Depression Total Score: 0 07/17/19 24 10:49 AM EST documented as of this encounter Care Teams Solar Tech Relationship Specialty Start Date End Date Name, MD Memo [address] [place] [address] PCP - General Family Medicine 08/30/15 documented as of this encounter
--- OUTSIDE RECORDS SUMMARY | 2025-05-16 09:27 | XMS_ITS | Encounter Summary ---
Author Organization [employer] Address [address] [place] [address] 7 [place] [address] Care Team Providers Care Cloth Finisher Name Role Phone Name, Memo ARREDONDO Primary Care Provider [phone] Reason for Visit * Reason Comments Med Refill Encounter Details Date Type Department Care Team ([facility] st Contact Info) Description 10/25/2022 Refill [facility] [address] [place], [place] [phone] Name, MD Memo [address] [place] [address] Chronic pain syndrome Social History Tobacco Use [...] Description 07/13/2025 11:00 AM EST Office Visit [address] [address] Name, MD Memo [address] [place] [address] 07/15/2025 10:00 AM EST Telemedicine [address] [address] Shahla Weston RN documented as of this encounter Visit Diagnoses Diagnosis Chronic pain syndrome documented in this encounter Additional Health Concerns Assessment Noted Time PHQ-9 Depression Total Score: 9 06/27/19 23 10:17 AM EST documented as of this encounter Care Teams Cloth Finisher Relationship Specialty Start Date End Date Memo Alex MD [address] [place] [address] PCP - General Family Medicine 08/30/15 documented as of this encounter
--- OUTSIDE RECORDS SUMMARY | 2025-05-16 09:27 | XMS_ITS | Encounter Summary ---
Author Organization [employer] Address [address] [facility] 7t [place] [address] Care Team Providers Care Blending Line Attendant Name Role Phone Name, Memo ARREDONDO Primary Care Provider Encounter Details Date Type Department Care Team ([facility] st Contact Info) Description 10/24/2024 Orders Only [facility] [address] [place], [place] [phone] ProviderFerdinand MD Social History Tobacco Use Types [...] Description 07/13/2025 11:00 AM EST Office Visit [facility] [address] [place] [address] Name, MD Memo [address] [place] [address] 07/15/2025 10:00 AM EST Telemedicine [address] [address] Shahla Weston RN documented as of this [...] documented as of this encounter Care Teams Blending Line Attendant Relationship Specialty Start Date End Date Name, MD Memo [address] [place] [address] PCP - General Family Medicine 08/30/15 documented as of this encounter
--- OUTSIDE RECORDS SUMMARY | 2025-05-16 09:27 | XMS_ITS | Clinical Summary ---
Author Organization [facility] Address [address] [place] [address] Phone Care Team Providers Care Boat Deckhand Name Role Phone Name, Memo ARREDONDO Primary Care Provider [phone] Allergies Active Allergy Reactions Criticality Noted Date [...] up in a few months Atherosclerosis of [place]oon[place] co ronary artery of [place]oon[place] heart with stable angina pectoris 02/24/2018 Assessment & Plan (2020 9:01 AM EST): His angina is well controlled currently we reviewed his previous nuclear stress testing from January he also had a CTA done in November continue medical therapy Assessment & Plan (01/13/2020 9:02 PM EDT): History of CAD dating back to 2012 with NE, stents and stable and unstable angina. He [...] FOBT 1998 SIGMOIDOSCOPY 1998 VIRTUAL COLONOSCOPY 1998 RSV VACCINE (1 - Risk 50-74 years 1-dose series) 2003 ZOSTER VACCINES (1 of 2) 2003 ABDOMINAL AORTIC ANEURYSM (AAA) SCREENING 2018 CREATININE LEVEL 11/25/2019 11/24/2018, 06/04/2018 POTASSIUM LEVEL 11/25/2019 11/24/2018, 06/04/2018 PNEUMOCOCCAL VACCINES (50+ years) (3 of 3 - PCV20 or PCV21) 06/15/2023 06/15/2018, 07/24/2013, 06/09/2007 INFLUENZA VACCINE (#1) 2025 , 03/25/2017, 03/06/2016, Additional history exists COVID-19 VACCINE [...] Date/Time Associated Diagnosis Comments BASIC METABOLIC PANEL (BMP) STAT 11/24/2018 11:26 AM EDT from Last 3 Months or Most Recently Relevant to Health Maintenance Results * (ABNORMAL) Basic metabolic panel (11/24/2018 11:26 AM EDT) SODIUM 140 135 - 145 mmol/L [facility] POTASSIUM 4.8 3.4 - 5.0 mmol/L [facility] Comment:Hemolysis present, r esult falsely increased. CHLORIDE 101 98 - 108 mmol/L [facility] CO2 25 23 - 32 mmol/L [facility] BUN 24 8 - 25 mg/dL [facility] CREATININE 0.84 0.60 - 1.50 mg/dL [facility] GLUCOSE 128(H) 70 - 110 mg/dL [facility] CALCIUM 9.2 8.5 - 10.5 mg/dL [facility] EGFR 92 >59 mL/min/1. 73m2 [facility] Comment:If patient is black, multiply result by 1.159. Estimated glomerular filtration rate calculated using the CKD-EPI equation. ANION GAP 14 3 - 17 mmol/L [facility] Blood 11/24/2018 11:2 6 AM EDT 11/24/2018 11:33 AM EDT us Aden Herndon PA-C LAB BLOOD BKR ORDERABLES Final Result [address] [address] from Last 3 Months or Most Recently Relevant to Health Maintenance Insurance MEDICARE PART A & B [facility] MEDICARE PART A & B [facility] MEDICARE PART A & B [facility] MEDICARE PART A & [facility] MEDICARE PART A & [facility] & B MEDICARE PART A & [place] [address] [address] Care Teams Boat Deckhand Relationship Specialty Start Date End Date Name, MD Memo [address] [place] [address] PCP - General Geriatric Psychiatry 12/29/17 Additional Source Comments The information contained in this document represents components of the legal health record. It is not the complete legal health record.[facility]
--- OUTSIDE RECORDS SUMMARY | 2025-05-16 09:27 | XMS_ITS | Encounter Summary ---
Author Organization [employer] Address [address] [place] [address] 7 [place] [address] Care Team Providers Care Datastage Architect Name Role Phone Name, Memo ARREDONDO Primary Care Provider [phone] Encounter Details Date Type Department Care Team (Late Contact Info) Description [facility] [address] [place], [place] [phone] NameMemo MD [address] [place] [phone] Social History Tobacco Use Types Packs/Day Years [...] Department Care Team (Late Contact Info) Description 07/13/2025 11:00 AM EST Office Visit [facility] [address] [place], [place] [phone] Name, MD Memo [facility] [place] [address] 07/15/2025 10:00 AM EST Telemedicine [facility] [place] [address] Shahla Weston, RN documented as of this encounter Visit Diagnoses Not on filedocumented in this encounter Additional Health Concerns Assessment Noted Time PHQ-9 Depression Total Score: 9 06/27/19 10:17 AM EST documented as of this encounter Care Teams Datastage Architect Relationship Specialty Start Date End Date Name, MD Memo [facility] [place] [place] [address] PCP - General Family Medicine 08/30/15 documented as of this encounter
--- OUTSIDE RECORDS SUMMARY | 2025-05-16 09:27 | XMS_ITS | Encounter Summary ---
Author Organization [email or web address] Address [address] [place] [address] 7 [place] [address] Care Team Providers Care Film Archivist Name Role Phone Name, Memo ARREDONDO Primary Care Provider [phone] Reason for Visit * Reason Onset Date Comments Nurse Triage 11/17/2024 Encounter Details Date Type Department Care Team ([facility] st Contact Info) Description 11/17/2024 Telephone [facility] [address] [place], [place] [phone] Name, MD Memo [address] [place] [address] Nurse Triage Social History Tobacco Use Types [...] side of head. Pt is advised to [facility], Pt reports is at work till [...] life now The caller accepted this outcome. [phone] documented in this encounter Plan of Treatment Upcoming Encounters Date Type Department Care Team (Late st Contact Info) Description 07/13/2025 11:00 AM EST Office Visit [facility] [address] [place] [address] NameMemo MD [address] [place] [address] 07/15/2025 10:00 AM EST Telemedicine [address] [address] Shahla Weston, VON documented as of this encounter Visit Diagnoses Not on filedocumented in this encounter Additional Health Concerns Assessment Noted Time PHQ-9 Depression Total Score: 0 07/17/19 24 10:49 AM EST documented as of this encounter Care Teams Film Archivist Relationship Specialty Start Date End Date NameMemo MD [address] [place] [address] PCP - General Family Medicine 08/30/15 documented as of this encounter
--- OUTSIDE RECORDS SUMMARY | 2025-05-16 09:27 | XMS_ITS | Encounter Summary ---
Author Organization [employer] Address [address] [place] [address] 7t [place] [address] Care Team Providers Care Field Crop Farm Worker Name Role Phone Name, Memo ARREDONDO Primary Care Provider [phone] Reason for Visit * Reason Onset Date Comments Error 03/25/2024 Encounter Details Date Type Department Care Team ([facility] Contact Info) Description 03/25/2024 Telephone [facility] [address] [place], [place] [phone] Name, MD Memo [address] [place] [address] Error Social History Tobacco Use Types Packs/Day [...] Description 07/13/2025 11:00 AM EST Office Visit [facility] [address] [place] [address] Name, MD Memo [address] [place] [address] 07/15/2025 10:00 AM EST Telemedicine [facility] [address] [place] [address] Shahla Weston RN documented as of this encounter Visit Diagnoses Not on filedocumented in this encounter Additional Health Concerns Assessment Noted Time PHQ-9 Depression Total Score: 0 07/17/19 24 10:49 AM EST documented as of this encounter Care Teams Field Crop Farm Worker Relationship Specialty Start Date End Date Name, MD Memo [address] [place] [address] PCP - General Family Medicine 08/30/15 documented as of this encounter
--- OUTSIDE RECORDS SUMMARY | 2025-05-16 09:27 | XMS_ITS | Encounter Summary ---
Author Organization [employer] Address [address] [place] [address] 7 [place] [address] Care Team Providers Care Rouge Miller Name Role Phone Name, Memo ARREDONDO Primary Care Provider [phone] Reason for Visit * Reason Comments Med Refill Encounter Details Date Type Department Care Team ([facility] st Contact Info) Description 03/23/2024 Refill [facility] [address] [place], [place] [phone] Name, MD Memo [address] [place] [address] Social History Tobacco Use Types Packs/Day Years [...] Description 07/13/2025 11:00 AM EST Office Visit [facility] [address] [place] [address] Name, MD Memo [address] [place] [address] 07/15/2025 10:00 AM EST Telemedicine [facility] [address] [place] [address] Shahla Weston, VON documented as of this encounter Visit Diagnoses Not on filedocumented in this encounter Additional Health Concerns Assessment Noted Time PHQ-9 Depression Total Score: 0 07/17/19 24 10:49 AM EST documented as of this encounter Care Teams Rouge Miller Relationship Specialty Start Date End Date NameMemo MD [address] [place] [address] PCP - General Family Medicine 08/30/15 documented as of this encounter
--- OUTSIDE RECORDS SUMMARY | 2025-05-16 09:27 | XMS_ITS | Clinical Summary ---
Author Organization [email or web address] Address [address] [place] [address] 7 [place] [address] Care Team Providers Care Mercerizer Name Role Phone Name, Memo ARREDONDO Primary Care Provider [phone] Allergies Active Allergy Reactions Criticality Noted Date [...] at the same time. 30 patch Active ranolazine (Ranexa) 1000 MG 12 hr tablet TAKE 1 TABLET BY MOUTH TWICE DAILY IN THE MORNING AND IN THE EVENING 180 tablet 2 025 Active cyclobenzaprine (Flexeril) 10 MG tabletIndicatio ns:Choking, subsequent encounter TAKE 1 TABLET BY MOUTH TWICE A DAY 60 tablet 025 Active naloxone (Narcan) 4 mg/0.1 mL nasal sprayIndication s:Long-term current use of opiate analgesic Administer 1 spray (4 mg) into affected nostril(s) if needed for opioid reversal. May repeat every 2-3 minutes if needed, alternating nostrils, until medical assistance becomes available. 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 One tablet every 5 to 6 hours as needed for pain. Do not start before May 10, 2025. 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 One tablet every 5 to 6 hours as needed for pain. Do not start before April 12, 2025. 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 Atherosclerosis of absentee-shawnee co ronary artery of absentee-shawnee heart with stable angina pectoris 02/24/2018 Overview [...] artery disease of n ative artery of absentee-shawnee heart with stable angina pectoris 09/04/2015 Radicular [...] 01/24/2015 Coronary artery stenosis 07/13/2014 Overview (05/14/2022): [place] Coronary Artery Stenosis Benign essential hypertension 07/13/2014 [...] 04/05/20 Altered mental status 12/26/20222022 Aspiration pneumonitis (CMS/[facility]) 12/26/2022 12/31/2022 Choking episode 12/26/2022 04/05/2025 Hypoxia [...] Encounters Date Type Department Care Team Description 05/09/[address] [facility] [address] [place] [address] Memo Alex MD Chronic pain syndrome 04/29/[address] 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 [address] [place] [address] NameMemo MD Chronic pain syndrome 04/11/[address] [facility] [address] [place] [address] Memo Alex MD Chronic pain syndrome 04/08/2025 9:[address] [facility] [address] [place] [address] Shahla Weston RN Long-term current use of opiate analgesic 04/08/[address] [facility] [address] [place] [address] Shahla Weston, RN Oxycodone count discrepancy 04/08/2025 Travel 04/07/[address] 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 [address] [place] [address] Memo Alex MD 04/04/[address] [facility] [address] [place] [address] Memo Alex MD Chart Prep 04/02/[address] [facility] [address] [place] [address] NameMemo MD 03/14/[address] [facility] 230 [facility] [place] [phone] Memo Alex MD Chronic pain syndrome 03/14/[address] [facility] [address] [place] [address] Memo Alex MD Chronic pain syndrome 03/07/[address] [facility] [address] [place], [place] [phone] NameMemo MD ER Follow-up 02/28/2025 Orders Only GENERIC EXTERNAL DATA DEPARTMENT Provider, Generic External Data 02/14/[address] [facility] 230 [facility] [place] [phone] Memo Alex MD Chronic pain syndrome from [...] Description 07/13/2025 11:00 AM EST Office Visit [facility] [address] [place] [phone] Name, MD Memo [address] [place] [phone] 07/15/2025 10:00 AM EST Telemedicine [address] [address] Shahla Weston, RN Health Maintenance Due Date Last Done Comments CT Colonography 1955 FIT DNA/Cologuard 1955 FIT 1955 FOBT 1955 Sigmoidoscopy 1955 Alcohol/Substance Use Screening 1965 RSV Patients and Patients Aged 60 years or older (1 - Risk 50-74 years 1-dose series) 2003 Depression Screening 07/17/2024 07/17/2023, 07/17/19 24 COVID-19 Vaccine ( season) 2025 03/03/2025, 04/12/2024, 07/10/2023, Additional history exists SDOH Screening 11/11/2025 11/11/2024 Tobacco Screening 04/05/2026 04/05/2025 Colonoscopy 09/03/2027 09/02/2024, 02/08, 03/04/2023, Additional history exists Colorectal Cancer Screening 09/03/2027 DTaP/Tdap/Td Vaccines (4 - Td or Tdap) 01/18/2030 01/19/2020, 02/02/2018, 06/09/2007 Lipid Panel 04/06/2030 04/06/2025, 12/08, 07/10/2023, Additional history exists Zoster Vaccines Completed 01/24/2022, 11/08, 11/20/2021 Pneumococcal Vaccine: 50+ Years Completed 03/26/2023, 06/15/2018, 07/24/2013, Additional history exists Hepatitis C Screening Completed 09/01/2023, 023 Influenza Vaccine Completed 03/03/2025, , 02/18/2023, Additional [...] Procedure Name Priority Date/Time Associated Diagnosis Comments LIPID PANEL, STANDARD Routine 04/06/2025 8:39 AM EDT 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 CT ABDOMEN PELVIS W CONTRAST Routine 02/28/2025 8:00 PM EDT URINALYSIS WITH REFLEX MICROSCOPIC Routine 02/28/2025 7:37 PM EDT CBC WITH AUTO DIFFERENTIAL Routine 02/28/2025 3:16 PM EDT LIPASE Routine 02/28/2025 3:15 PM EDT MAGNESIUM Routine 02/28/2025 3:15 PM EDT BASIC METABOLIC PANEL Routine 02/28/2025 3:15 PM EDT HEPATIC FUNCTION PANEL Routine 02/28/2025 3:15 PM EDT HM COLONOSCOPY Routine 09/02/2024 6:46 PM EDT HEPATITIS PANEL, GENERAL Routine 09/01/2023 11:55 AM EDT LLQ abdominal pain Encounter for screening for other viral diseases from Last 3 Months or Most Recently Relevant to Health Maintenance Results * (ABNORMAL) Lipid Panel, Standard (04/06/2025 8:39 AM EDT) Triglycerides 236(H) <150 mg/dL [facility] Comment:Desirable Triglyceri de: less than 150 mg/dLBorderline High Triglyceride 150-199 mg/dLHigh Triglyceride: 200-499 mg/dLVery High Triglyceride: greater than or equal to 5OO mg/dL Cholesterol 167 <200 mg/dL [facility] Comment:Desirable Cholestero l: less than 200 mg/dLBorderline High Cholesterol: 200-239 mg/dLHigh Cholesterol: greater than 239 mg/dL LDL Cholesterol Calculated 72 <100 mg/dL [facility] Comment:Desirable LDL: less than 100 mg/dLNear Optimal/Above Optimal LDL: 110- 129 mg/dLBorderline High LDL: 130-159 mg/dLHigh LDL: 160-189 mg/dLVery High LDL: greater than or equal to 190 mg/dL HDL Cholesterol 48 >40 mg/dL [facility] Comment:Desirable HDL: great er than 40 mg/dL Note: This HDL assay may give artificially low results in patients with liver disease. Blood Venous blood specimen / Unknown 04/06/2025 8:39 AM EDT 04/06/2025 8:39 AM EDT Memo Alex MD LAB BLOOD ORDERABLES Final Resul t [facility] [address] [place] [phone] * CT Abdomen Pelvis w/ Contrast (02/28/2025 8:00 PM EDT) Anatomical Region Laterality Modality Body, Pelvis, Abdomen Computed T omography 02/28/2025 8:00 PM EDT Narrative 02/28/2025 8:02 PM EDT [address] [address] [address] Scan Report Signed Patient: Myles Tipton MR#: [id number] 5 : 1955 Acct:[id number] Age/Sex: 69 / M ADM Date: 02/28/25 Loc: HO.ED Attending Dr: Ordering Physician: Arsh Savage Date of Service: 02/28/25 Procedure(s): CT abdomen pelvis w IV con Accession Number(s): [id number] cc: Memo Alex MD; Arsh Savage Report Number: [id number]: Total DLP = 672.00 mGy-cm Reason for [...] in OV> 02/28/252000 DD/ 99 TD/TT: 02/28/251999 Coater: Procedure Note Donotuseinterpreter, Image - 02/28/[address] [place] [address] [address] Scan Report Signed Patient: Myles TiptonMR#: [id number] 5 : 1955cct:[id number] Age/Sex: 69 / MADM Date: 02/28/25 Loc: HO.ED Attending Dr: Ordering Physician: Arsh Savage Date of Service: 02/28/25 Procedure(s): CT abdomen pelvis w IV con Accession Number(s): [id number] cc: Name,Memo ARREDONDO; Arsh Savage Report Number: [id number]: Total DLP = 672.00 mGy-cm Reason for [...] in OV> 02/28/252000 DD/ 99 TD/TT: 02/28/251999 Coater: [facility] External Provider IMG CT PROCEDURES Edited Result - Final * (ABNORMAL) Urinalysis w/reflex microscopic (02/28/2025 7:37 PM EDT) Color Urine Yellow [facility] Appearance Urine Clear [facility] PH 7.0 5.0 - 9.0 [facility] Glucose Urine UA Negative Negative mg/dL [facility] Urine Blood Negative Negative [facility] Specific [place] - Urine >=1.030(H) 1.005 - 1.025 [facility] Urine Protein Negative Neg-Trace mg/dL [facility] Urine Ketones Negative Negative mg/dL [facility] Nitrite Urine Negative Negative [facility] Leukocyte Esterase Urine Negative Negative [facility] 02/28/2025 7:37 PM EDT 02/28/2025 7:42 PM EDT Narrative [facility] - 02/28/2025 7:46 PM EDT Urine, Clean Catch Generic External Data Provider LAB URINE ORDERAB LES Final Result [facility] [address] [place] [phone] * (ABNORMAL) CBC auto differential (02/28/2025 [...] Address [facility]/ZIP Co de Phone Number [facility] [address] [place] [phone] * Magnesium (02/28/2025 3:15 PM EDT) Pathologist [facility] Magnesium 2.2 1.6 - 2.6 mg/dL [facility] 02/28/2025 3:15 PM EDT 02/28/2025 3:18 PM EDT Generic External Data Provider LAB BLOOD ORDERAB LES Final Result Performing Organization Address [facility] Co de Phone Number [facility] [address] [place] [phone] * Lipase (02/28/2025 3:15 PM EDT) Pathologist [facility] Lipase 13 8 - 78 U/L [facility] 02/28/2025 3:15 PM EDT 02/28/2025 3:18 PM EDT Generic External Data Provider LAB BLOOD ORDERAB LES Final Result Performing Organization Address [facility] Co de Phone Number [facility] [address] [place] [phone] * Hepatic Function Panel (02/28/2025 3:15 [...] ORDERAB LES Final Result Performing Organization Address City/[facility]/ZIP Co de Phone Number [facility] [address] [place] [phone] * (ABNORMAL) Basic Metabolic Panel (02/28/2025 3:15 PM EDT) Sodium 142 135 - 145 mmol/L [facility] [...] Kidney Disea se: Estimated GFR < 60 mL/min/1.99k7Kstzec Kidney Disease: Estimated GFR < 15 mL/min/1.73m2 Glucose 99 60 - 115 mg/dL [facility] Calcium 9.0 8.4 - 10.2 mg/dL [facility] 02/28/2025 3:15 PM EDT 02/28/2025 3:18 PM EDT us Generic External Data Provider LAB BLOOD ORDERAB LES Final Result Performing Organization Address City/[facility]/ZIP Co de Phone Number [facility] [address] [place] [phone] * Hm Colonoscopy (09/02/2024 6:46 PM EDT) Colonoscopy Normal Normal Narrative Aleta Wang - 09/02/2024 6:46 PM EDT Recommended repeat colonoscopy in 3 years see external hospital admission note on 09/02/2024 Historical Provider HEALTH MAINTENANCE Edited Result - Final * Hepatitis Panel, General (09/01/2023 11:55 AM [...] EDT 09/01/2023 1:48 PM EDT Sonia Ladd [facility] LAB BLOOD ORDERABLES Final Res ult [facility] [address] [place] [phone] from Last 3 Months or Most Recently Relevant to Health Maintenance Insurance [facility] STANDARD MEDICARE [facility] F[facility] Care Teams Mercerizer Relationship Specialty Start Date End Date Name, MD Memo [address] [place] [phone] PCP - General Family Medicine 08/30/15
--- OUTSIDE RECORDS SUMMARY | 2025-05-16 09:27 | XMS_ITS | Encounter Summary ---
Author Organization [facility] Address [address] [place] [phone] Phone Care Team Providers Care Welfare Investigator Name Role Phone Memo Alex MD Primary Care Provider [phone] Reason for Referral * Consultation (Within 1 month) - Closed Specialty Diagnoses / Procedures Referred By Contac t Referred To Contact Memo Alex MD Phone: tel: fax: [facility] [id number] Referral ID Status Reason Start Date Expiration Date Visits Re quested Visits Authorized [id number] Closed 12/30/2017 12/30/2018 1 1 Encounter Details Date Type Department Care Team ([facility] st Contact Info) Description 12/30/2017 Transcribe Orders [facility] [address] [place] [phone] Unknown, Unknown, Social History Tobacco Use Types [...] Associated Diagnoses Order Schedule Ambulatory referral to [facility] Outpatient Referral Routine Ordered: 12/30/2017 documented as of this encounter Visit Diagnoses Not on filedocumented in this encounter Care Teams Welfare Investigator Relationship Specialty Start Date End Date Memo Alex MD [address] [place] [phone] PCP - General Geriatric Psychiatry 12/29/17 documented as of this encounter Additional Source Comments The information contained in this document represents components of the legal health record. It is not the complete legal health record.[facility]
== END 2025-05-16 08:57 | disposition home or self-care (01) ==
LOC: HO.HSM 08:19
PROVIDERS: PCP Internal Medicine Geriatric Medicine; Visit Provider Nurse Practitioner
DX: G25.2 Other specified forms of tremor (principal)
CPT/HCPCS: 99213

== ENCOUNTER → 2025-05-16 08:19 | Outpatient (BNVA) | payer MEDICARE, MEDICAID, SELFPAY | PROVIDERS: PCP Internal Medicine Geriatric Medicine; Visit Provider Nurse Practitioner | DX: G25.2 Other specified forms of tremor (principal); Z95.0 Presence of cardiac pacemaker; R26.89 Other abnormalities of gait and mobility | CPT/HCPCS: 99212 ==